=== PATIENT | female | born 1945 | race Caucasian/White ===

== ENCOUNTER → 2017-11-27 13:05 | Outpatient (CLI) | payer MEDICARE, OTHER, SELFPAY | PROVIDERS: Family Provider Family Medicine Geriatric Medicine; PCP Family Medicine Geriatric Medicine; Visit Provider Physician Assistant Surgical | DX: M54.9 Dorsalgia, unspecified (principal) | CPT/HCPCS: 87086; 87088; 87186 ==

== ENCOUNTER → 2017-11-28 10:23 | Outpatient (CLI) | payer MEDICARE, OTHER, SELFPAY ==
[2017-11-28 13:14] LABS: Absolute Lymphocyte Count 1.77 X10^3/ul (0.83-4.51); Absolute Neutrophil Count 3.7 X10^3/uL (2.0-7.7); Basophil# 0.03 X10^3/uL; Basophil% 0.5 % (0-1); Eosinophil# 0.18 X10^3/uL; Eosinophils% 2.9 % (0-5); Hematocrit 40.5 % (37-47); Hemoglobin 13.2 g/dl (12.0-15.0); Lymphocyte # 1.77 X10^3/ul (4.0); Lymphocyte % 28.3 % (19-41); Mean Corp Hgb Conc 32.6 g/gl (32-36); Mean Corpuscular Hgb 31.1 pg (27.0-32.0); Mean Corpuscular Volume 95.3 fL (81-99); Mean Platelet Vol. 10.6 fl (6.2-12.0); Monocyte# 0.61 X10^3/uL; Monocyte% 9.7 % (0-10); Neutrophil # 3.66 X10^3/uL (2.7-7.7); Neutrophil % 58.4 % (47-70); POSITIVE COUNT NO; POSITIVE DIFFERENTIAL NO; POSITIVE MORPHOLOGY NO; Platelet Count 240 K/mm3 (150-450); RBC Distribution Width CV 14.6 % (11.6-14.6); RBC Distribution Width SD 48.6 fl (35.1-43.9); Red Blood Count 4.25 M/mm3 (4.2-5.4); White Blood Count 6.3 K/mm3 (4.4-11.0)
[2017-11-28 13:38] LABS: ALB/GLOB Ratio 0.9 RATIO (0.9-2.4); AST(SGOT) 32 U/L (15-37); Alanine Aminotransfer ALT/SGPT 31 U/L (13-56); Albumin, Serum 3.4 g/dL (3.2-5.0); Alkaline Phosphatase 90 U/L (45-117); Anion Gap 7 (5-15); BUN 25 mg/dL (7-18); BUN/Creat Ratio 41.5 RATIO (10-20); Calcium,Total 9.3 mg/dL (8.5-10.1); Chloride 100 mmol/L (98-107); EST Glomerular Filtration Rate 104 mL/min (>60); Est Glom Filt Rate - Afr Amer 125 mL/min (>60); Globulin 3.6 g/dL (2.2-4.2); Glucose 84 mg/dL (74-106); Potassium 4.6 mmol/L (3.5-5.1); Sodium Level 137 mmol/L (136-145); Thyroid Stim Hormone (TSH) 2.44 uIU/mL (0.358-3.74)
[2017-11-29 09:27] LABS: Hep C Antibodies <0.1 s/co ratio (0.0-0.9)
[2017-11-29 10:39] LABS: Vitamin D,25 Hydroxy 50.4 ng/mL (29.95-100.01)
== END ==
PROVIDERS: Family Provider Family Medicine Geriatric Medicine; PCP Family Medicine Geriatric Medicine; Visit Provider Family Medicine Geriatric Medicine
DX: E11.9 Type 2 diabetes mellitus without complications (principal); E55.9 Vitamin D deficiency, unspecified; I10 Essential (primary) hypertension; Z13.89 Encounter for screening for other disorder
CPT/HCPCS: 36415; 80053; 82306; 84443; 85025; 86803

== ENCOUNTER 2017-12-12 12:01 | Emergency (ER) | payer MEDICARE, OTHER, SELFPAY ==
[2017-12-12 12:02] VITALS: BP 144/52; PULSE 67; RESP 16; TEMP 37.5; O2SAT 93; BMI 35.1
[2017-12-12] MEDS: Orphenadrine 60 MG/2 ML Ampul IM (12:26)
--- NOTE | 2017-12-12 12:40 | RAD_ITS ---
STUDY: X-RAY - LUMBAR SPINE REASON FOR EXAM: Female, 72 years old. Chronic back pain. TECHNIQUE: 3 view(s) of the lumbar spine were obtained. COMPARISON: Comparison is made with prior study dated November 14, 2015. FINDINGS: Normal lumbar lordosis. There is a mild dextroscoliosis of the lumbar spine. There is a normal alignment of the vertebrae. There is multilevel endplate spondylosis of the lumbar vertebrae. There is multi-level degenerative disc disease with multi-level disc space narrowing. Facet joint osteoarthritis. The patient is status post multilevel laminectomy. Status post right hip replacement. There is atherosclerotic calcification of the abdominal aorta without a demonstrated aneurysm. RAD/Lumbar Spine 2 or 3 Views IMPRESSION: Degenerative changes of the spine, as detailed above. There has been no change as compared to prior study. Electronically Signed: Colt Palafox MD at 13:05 EDT Tel [phone], Service support ,
--- NOTE | 2017-12-12 13:08 | ED.VISSUMM ---
- ER Visit Summary Date of Service: 12/12/17 Chief Complaint: Back pain History of Present Illness: The patient is a 72 F who presents with worsening of her chronic back pain. It has been worse for the past 2 days. She states that she was twisted in bed and was holding up a light for her and when she turned back she started having pain. Movement makes it worse and laying on her right side makes it better. Denies any numbness or tingling. No bowel or bladder incontinence. She takes gabapentin, methadone and Percocet for her back pain at home. She normally ambulates in a wheelchair and has limited walking mobility at home. Physical Examination: Vital signs are reviewed. HEENT exam unremarkable. Heart is regular rate and rhythm. Lungs are clear to auscultation. Abdomen is soft and nontender. Back exam reveals diffuse lumbar spinal tenderness palpation. Her neurologic exam is normal. Test Results: Lumbar spine x-ray reveals degenerative changes Emergency Department Course and Treatment: Patient was given Norflex and feels better. I feel this is likely muscular. This is an exacerbation of her chronic low back pain. I will treat her with a short course of Zanaflex at home. She will follow-up with her PCP Treatment Plan: [] Disposition: Discharge Impression: Acute on chronic low back pain This note was generated with [employer] ([employer]) dictation software. It may contain incorrect words, spelling, and punctuation that were not noted in review of the chart prior to signing ED Disposition - Plan for ED Patient: Chief Complaint: Back Referrals: Nahun Casillas Chi, MD [Primary Care Provider] -
--- NOTE | 2017-12-12 13:33 | ED.DEP ---
ED Disposition - Plan for ED Patient: Disposition: Home or Assisted Living Chief Complaint: Back Instructions: ED Neck Back Pain General Prescriptions: Tizanidine HCl [Zanaflex] 2 mg PO TID #15 cap Referrals: Nahun Casillas Chi, MD [Primary Care Provider] -
[2017-12-12 13:58] VITALS: BP 108/41; PULSE 59; RESP 18; O2SAT 96
--- NOTE | 2017-12-12 13:59 | ED.RN ---
Pt having trouble ambulating for discharge, daughter states that is normal for her. This RN expresses concern for getting patient back into the house and daughter states they can handle it and can call for help if needed. Pt helped into a wheelchair and taken to daughters car, pt then helped into the car.
== END 2017-12-12 14:08 | disposition home or self-care (01) ==
PROVIDERS: Emergency Provider Emergency Medicine; Family Provider Family Medicine Geriatric Medicine; PCP Family Medicine Geriatric Medicine
DX: M54.5 Low back pain (principal); G89.29 Other chronic pain; I10 Essential (primary) hypertension; E78.00 Pure hypercholesterolemia, unspecified; J44.9 Chronic obstructive pulmonary disease, unspecified; Z79.891 Long term (current) use of opiate analgesic; Z79.899 Other long term (current) drug therapy
CPT/HCPCS: 72100; 96372; 99285

== ENCOUNTER → 2017-12-16 12:03 | Outpatient (CLI) | payer MEDICARE, OTHER, SELFPAY | PROVIDERS: Family Provider Family Medicine Geriatric Medicine; PCP Family Medicine Geriatric Medicine; Visit Provider Anesthesiology Pain Medicine | DX: F11.20 Opioid dependence, uncomplicated (principal) ==

== ENCOUNTER → 2018-03-31 05:00 | Outpatient (REF) | payer MEDICARE, OTHER, SELFPAY ==
[2018-03-31 09:15] LABS: Vitamin B12 366 pg/mL (211-911)
== END ==
LOC: OLS.AVED 05:00
PROVIDERS: Visit Provider Family Medicine
DX: K14.6 Glossodynia (principal)
CPT/HCPCS: 36415; 82607

== ENCOUNTER → 2018-05-12 04:30 | Outpatient (REF) | payer MEDICARE, OTHER, SELFPAY ==
[2018-05-12 08:59] LABS: Absolute Lymphocyte Count 3.14 X10^3/ul (0.83-4.51); Absolute Neutrophil Count 3.2 X10^3/uL (2.0-7.7); Basophil# 0.03 X10^3/uL; Basophil% 0.4 % (0-1); Eosinophil# 0.27 X10^3/uL; Eosinophils% 3.7 % (0-5); Hematocrit 41.5 % (37-47); Hemoglobin 13.1 g/dl (12.0-15.0); Lymphocyte # 3.14 X10^3/ul (4.0); Lymphocyte % 42.5 % (19-41); Mean Corp Hgb Conc 31.6 g/gl (32-36); Mean Corpuscular Hgb 30.7 pg (27.0-32.0); Mean Corpuscular Volume 97.2 fL (81-99); Mean Platelet Vol. 10.6 fl (6.2-12.0); Monocyte# 0.74 X10^3/uL; Neutrophil % 43.3 % (47-70); Platelet Count 260 K/mm3 (150-450); RBC Distribution Width CV 13.2 % (11.6-14.6); RBC Distribution Width SD 46.1 fl (35.1-43.9); Red Blood Count 4.27 M/mm3 (4.2-5.4); White Blood Count 7.4 K/mm3 (4.4-11.0)
[2018-05-12 09:06] LABS: POSITIVE COUNT NO; POSITIVE DIFFERENTIAL NO; POSITIVE MORPHOLOGY NO
[2018-05-12 09:11] LABS: AST(SGOT) 31 U/L (15-37); Alanine Aminotransfer ALT/SGPT 25 U/L (13-56); Albumin, Serum 3.2 g/dL (3.2-5.0); Alkaline Phosphatase 94 U/L (45-117); Anion Gap 10 (5-15); BUN 22 mg/dL (7-18); BUN/Creat Ratio 37.4 RATIO (10-20); Calcium,Total 9.2 mg/dL (8.5-10.1); Chloride 105 mmol/L (98-107); Cholesterol 144 mg/dL (200); Creatinine, Serum 0.59 mg/dL (0.55-1.02); EST Glomerular Filtration Rate 107 mL/min (>60); Est Glom Filt Rate - Afr Amer 129 mL/min (>60); Globulin 3.2 g/dL (2.2-4.2); Glucose 77 mg/dL (74-106); High Density Lipoprotein 38 mg/dL; Protein, Total 6.4 g/dL (6.4-8.2); Sodium Level 144 mmol/L (136-145); Triglycerides 170 mg/dL; Very Low Density Lipoprotein 34 mg/dL (5-40)
[2018-05-12 09:20] LABS: Vitamin D,25 Hydroxy 22.6 ng/mL (29.95-100.01)
== END ==
LOC: OLS.AVED 04:30
PROVIDERS: Visit Provider Family Medicine
DX: R53.83 Other fatigue (principal); E78.5 Hyperlipidemia, unspecified; E55.9 Vitamin D deficiency, unspecified
CPT/HCPCS: 36415; 80053; 80061; 82306; 85025

== ENCOUNTER → 2018-06-28 07:00 | Outpatient (REF) | payer MEDICARE, OTHER, SELFPAY ==
[2018-06-28 08:09] LABS: Absolute Lymphocyte Count 2.65 X10^3/ul (0.83-4.51); Absolute Neutrophil Count 4.7 X10^3/uL (2.0-7.7); Basophil# 0.03 X10^3/uL; Basophil% 0.4 % (0-1); Eosinophil# 0.23 X10^3/uL; Eosinophils% 2.7 % (0-5); Hematocrit 40.3 % (37-47); Hemoglobin 13.3 g/dl (12.0-15.0); Lymphocyte # 2.65 X10^3/ul (4.0); Lymphocyte % 31.6 % (19-41); Mean Corpuscular Hgb 31.1 pg (27.0-32.0); Mean Corpuscular Volume 94.4 fL (81-99); Mean Platelet Vol. 10.3 fl (6.2-12.0); Monocyte# 0.75 X10^3/uL; Monocyte% 8.9 % (0-10); Neutrophil # 4.72 X10^3/uL (2.7-7.7); Neutrophil % 56.3 % (47-70); Platelet Count 258 K/mm3 (150-450); RBC Distribution Width CV 12.5 % (11.6-14.6); RBC Distribution Width SD 42.2 fl (35.1-43.9); Red Blood Count 4.27 M/mm3 (4.2-5.4); White Blood Count 8.4 K/mm3 (4.4-11.0)
[2018-06-28 08:11] LABS: POSITIVE COUNT NO; POSITIVE DIFFERENTIAL NO; POSITIVE MORPHOLOGY NO
== END ==
LOC: OLS.AVEC 07:00
PROVIDERS: Visit Provider Family Medicine
DX: N39.0 Urinary tract infection, site not specified (principal); E78.5 Hyperlipidemia, unspecified
CPT/HCPCS: 36415; 85025; 87077; 87086; 87088; 87186

== ENCOUNTER → 2018-08-02 20:52 | Outpatient (CLI) | payer MEDICARE, OTHER, MEDICAID, SELFPAY ==
[2018-08-02 21:57] LABS: Color, Urine Yellow (Yellow); Glucose, Dipstick Normal (Normal); Ketone-Dipstick Negative (Negative); Leukocyte Esterase-Dipstick 500 /ul (Negative); Nitrite-Dipstick Positive (Negative); Occult Blood-Urine 250 /ul (Negative); Protein-Dipstick 100 mg/dl (Negative); Specific Gravity, Urine 1.015 (1.002-1.030); Urine Bilirubin Dipstick Negative (Negative); Urine Clarity Cloudy (Clear); Urine Urobilinogen Normal (Normal)
--- OUTSIDE RECORDS SUMMARY | 2018-09-26 21:51 | XMS RPT_ITS ---
:1945 Author Organization OHIP Support Name Relationship Address Phone R Unavailable Unavailable Unavailable Tiffanie, Naina Unavailable [address] + [place] [address] R Unavailable Unavailable Unavailable Tiffanie, Naina Unavailable [address] + [place] [address] R Unavailable Unavailable Unavailable Tiffanie, Naina Unavailable [address] + [place] [address] R Unavailable Unavailable Unavailable Tiffanie, Naina Unavailable [address] + [place] [address] R Unavailable Unavailable Unavailable Tiffanie, Naina Unavailable [address] + [place] [address] R Unavailable Unavailable Unavailable TIFFANIE, NAINA Unavailable [address] + [place] [address] R Unavailable Unavailable Unavailable R Unavailable Unavailable Unavailable Tiffanie, Naina Unavailable [address] + [place] [address] Karol Hawley Unavailable [address] + [address] [place] [address] R Unavailable Unavailable Unavailable Tiffanie, Naina Unavailable [address] [phone] [place] [address] Karol Hawley Unavailable [address] + [address] [place] [address] R Unavailable Unavailable Unavailable Tiffanie, Naina Unavailable [address] [phone] [place] [address] KAROL HAWLEY Unavailable [address] + [address] [place] [address] R Unavailable Unavailable Unavailable TIFFANIE, NAINA Unavailable [address] [phone] [place] [address] HAWLEYKAROL Unavailable [address] + [address] [place] [address] R Unavailable Unavailable Unavailable TIFFANIE, NAINA Unavailable [address] [phone] [place] [address] MARLEENKAROL Unavailable [address] + [address] [place] [address] R Unavailable Unavailable Unavailable TIFFANIE, NAINA Unavailable [address] [phone] [place] [address] HAWLEYKAROL Unavailable [address] + [address] [place] [address] R Unavailable Unavailable Unavailable TIFFANIE, NAINA Unavailable [address] [phone] [place] [address] KAROL HAWLEY Unavailable [address] + [address] [place] [address] R Unavailable Unavailable Unavailable TIFFANIE, NAINA Unavailable [address] [phone] [place] [address] KAROL HAWLEY Unavailable [address] + [address] [place] [address] R Unavailable Unavailable Unavailable TIFFANIE, NAINA Unavailable [address] [phone] [place] [address] MARLEEN KAROL Unavailable [address] + [address] [place] [address] R Unavailable Unavailable Unavailable TIFFANIE, NAINA Unavailable [address] [phone] [place] [address] MARLEEN KAROL Unavailable [address] + [address] [place] [address] R Unavailable Unavailable Unavailable TIFFANIE, NAINA Unavailable [address] [phone] [place] [address] Care Team Providers Name Role Phone Nahid Sotelo Attending Unavailable Vinny, Nahun Chi Referring Unavailable Tex Aguillon Attending Unavailable Vinny, Nahun Chi Referring Unavailable Vinny, Nahun Chi Primary Care Unavailable Tex Aguillon Attending Unavailable Tex Aguillon Referring Unavailable Vinny, Nahun Chi Primary Care Unavailable Vinny, Nahun Chi Attending Unavailable Vinny, Nahun Chi Primary Care Unavailable Vinny, Nahun Chi Primary Care Unavailable Amos Montanez Attending Unavailable Basali, Desmond Attending Unavailable Basali, Ayman Referring Unavailable Vinny, Nahun Chi Primary Care Unavailable Yanely Solomon Attending Unavailable Siddiqi, Camille Attending Unavailable Roof, Harpreet Lemus Attending Unavailable Vinny, Nahun Chi Referring Unavailable Vinny, Nahun Chi Primary Care Unavailable Berry, Wolf Attending Unavailable Berry, Wolf Attending Unavailable Berry, Wolf Attending Unavailable Tickton, Marjorie Attending Unavailable Tickton, Marjorie Referring Unavailable Berry, Wolf Primary Care Unavailable Berry, Wolf Attending Unavailable Berry, Wolf Attending Unavailable Berry, Wolf Attending Unavailable Berry, Wolf Primary Care Unavailable Berry, Wolf Attending Unavailable PROBLEMS PROBLEMS DATE TYPE CONDITION / CODE ATTENDING STATUS SOURCE 08/04/2018 Unknown Z00.0 - Encounter Berry[facility] green Active [place] for general adult Community medical examination Hospital / Z00.0(ICD-10) Repository 07/25/2018 Unknown E78.5 - BerryWolf green Active [place] Hyperlipidemia, Community unspecified / Hospital E78.5(ICD-10) Repository 07/25/2018 Unknown N39.0 - Urinary BerryWolf green Active [place] tract infection, Community site not specified Hospital / N39.0(ICD-10) Repository 06/30/2018 Unknown R53.83 - Other [facility] green Active [place] fatigue / Community R53.83(ICD-10) Hospital Repository 06/30/2018 Unknown E55.9 - Vitamin D BerryWolf green Active [place] deficiency, Community unspecified / Hospital E55.9(ICD-10) Repository 05/15/2018 Unknown 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, Hospital including tongue / Repository K13.29(ICD-10) 01/06/2018 Unknown F11.20 - Opioid Basali, Ayman Active [place] dependence, Community uncomplicated / Hospital F11.20(ICD-10) Repository PROCEDURES PROCEDURES No Procedure Records FoundRESULTS RESULTS CBC W/DIFF, AUTOMATED Collected: 08/11/2018 Status: F Source: [place] 4:40 AM [facility] REPOSITORY Order Comment: 140 TYPE CODE TESTS RESULT OUT OF RANGE REFERENCE UNITS LAB L100.1000 4.4-11.0 K/mm3 Normal WBC 6.9 LAB L100.1200 4.2-5.4 M/mm3 Low RBC 3.78 LAB L100.1300 12.0-15.0 g/dl Low HGB 11.4 LAB L100.1400 37-47 % Low HCT 35.9 LAB L100.1500 81-99 fL Normal MCV 95.0 LAB L100.1600 27.0-32.0 pg Normal MCH 30.2 LAB L100.1700 32-36 g/gl Low MCHC 31.8 LAB L100.1810 11.6-14.6 % Normal RDW CV 13.1 LAB L100.1820 35.1-43.9 fl High RDW SD 44.9 LAB L100.1900 150-450 K/mm3 Normal PLT 291 LAB L100.2000 6.2-12.0 fl Normal MPV 9.9 LAB L100.2100 47-70 % Normal NEUT% 47.8 LAB L100.2200 19-41 % Normal LY% 36.3 LAB L100.2300 0-10 % Normal MONO% 8.8 LAB L100.2400 0-5 % High EO% 6.9 LAB L100.2500 0-1 % Normal BASO% 0.1 LAB L100.2550 0.0-0.9 % Normal IM GRAN % 0.100 Result Comment: IG% - Immature Granulocytes (promyelocytes, myelocytes and metamyelocytes) > 1% indicates that a LEFT SHIFT is Present. LAB L100.2620 2.0-7.7 X10 3/uL Normal Absolute Neut 3.3 LAB L100.2720 0.83-4.51 X10 3/ul Normal Absolute Lymph 2.52 Performed By: #### L100.0100 #### [facility] [address] [place], [place], [address] COMPREHENSIVE METABOLIC Collected: 08/11/2018 Status: F Source: [facility] 4:40 AM REPOSITORY Order Comment: 140 FASTING SINCE 12AM TYPE CODE TESTS RESULT OUT OF RANGE REFERENCE UNITS LAB L501.0100 74-106 mg/dL Normal GLU 87 Result Comment: Please note revised GLUCOSE reference range effective 2017. LAB L501.1000 7-18 mg/dL Normal BUN 17 LAB L501.1100 0.55-1.02 mg/dL Normal CREAT,SERUM 0.55 Result Comment: The validity of the calculated GFR AND GFRAA in patients over 70 years has not been determined. Clinical correlation is essential. LAB L501.1110 >60 mL/min Normal EST GFR 116 Result Comment: Non- GFR Calc LAB L501.1115 >60 mL/min Normal EST GFR - AA 140 Result Comment: GFR Calc LAB L501.1300 10-20 RATIO High BUN/CRE 31.1 LAB L501.1500 6.4-8.2 g/dL Low T PROT 5.8 LAB L501.1800 3.2-5.0 g/dL Low ALB 2.5 LAB L501.1950 2.2-4.2 g/dL Normal GLOB 3.3 LAB L501.2000 0.9-2.4 RATIO Low A/G 0.8 LAB L501.2200 8.5-10.1 mg/dL CA Normal 8.6 LAB L501.4100 15-37 U/L Normal AST 28 LAB L501.4305 45-117 U/L Normal ALK P 81 LAB L501.4405 13-56 U/L Normal ALT 21 LAB L501.4600 0.20-1.00 mg/dL T Normal BILI 0.20 LAB L501.5300 136-145 mmol/L NA Normal 141 LAB L501.5600 3.5-5.1 mmol/L K Normal 4.0 LAB L501.5900 98-107 mmol/L CL Normal 107 LAB L501.6100 21.0-32.0 mmol/L Normal CO2 27.0 LAB L501.6200 5-15 Normal GAP 7 Performed By: #### L500.4050, L500.4100 #### [facility] [address] [place], [address] LIPID PROFILE Collected: 08/11/2018 Status: F Source: [place] 4:40 AM REPOSITORY Order Comment: 140 FASTING SINCE 12AM TYPE CODE TESTS RESULT OUT OF RANGE REFERENCE UNITS LAB L501.4900 200 mg/dL Normal CHOL 115 Result Comment: <200 mg/dL Desirable 200-240 mg/dL Borderline >240 mg/dL High Risk LAB L501.5000 mg/dL Normal TRIG 160 Result Comment: The drugs N-Acetylcysteine and Metamizole may falsely depress this assay. Serum Triglycerides Reference Interval Normal <150 mg/dL Borderline high 150 - 199 mg/dL High 200 - 499 mg/dL Very High > or = 500 mg/dL LAB L501.6400 mg/dL Low HDL 31 Result Comment: The drugs N-Acetylcysteine and Metamizole may falsely depress this assay. Reference Range HDL <40 mg/dL Low HDL Cholesterol HDL >or= 60 mg/dL High HDL Cholesterol LAB L501.6500 0-130 mg/dL Normal LDL 52 LAB L501.6600 5-40 mg/dL Normal VLDL 32 Performed By: #### L500.4050, L500.4100 #### [facility] [address] [place], [address] VITAMIN D,25 HYDROXY Collected: 08/11/2018 Status: F Source: [place] 4:40 AM REPOSITORY Order Comment: 140 TYPE CODE TESTS RESULT OUT OF RANGE REFERENCE UNITS LAB L506.1000 29.95-100.01 ng/mL Normal Vitamin D 40.3 25-OH Result Comment: Vitamin D 25(OH) Status Range Deficiency <20 ng/mL (50nmol/L) Insuffciency 20 - 30 ng/mL (50 - 75 nmol/L) Sufficiency 30 - 100 ng/mL (75 - 250 nmol/L) Toxicity >100 ng/mL (>250 nmol/L) Performed By: #### L506.1000 #### [facility] [address] [place], [place], [address] URINALYSIS, ROUTINE Collected: 08/02/2018 Status: F Source: [place] ([place]) 4:00 PM REPOSITORY Order Comment: How was Urine Obtained? CLEAN CATCH TYPE CODE TESTS RESULT OUT OF RANGE REFERENCE UNITS LAB L400.3000 Yellow COLOR Normal Yellow LAB L400.3050 Clear Normal CLARITY Cloudy LAB L400.3200 Normal mg/dl Normal GLUCOSE, UR Normal LAB L400.3300 Negative mg/dL Normal BILIRUBIN URINE Negative LAB L400.3400 Negative mg/dl Normal KETONE UR Negative LAB L400.3465 1.002-1.030 Normal SP.GR. DIPSTX 1.015 LAB L400.3550 5.0 - 8.0 pH UR Normal 9.0 LAB L400.3600 Negative mg/dl High PROT DIPSTX 100 LAB L400.3700 Normal mg/dl Normal UROBILI Normal LAB L400.3750 Negative High NITRITE UR Positive LAB L400.3780 Negative /ul High OCCULT BLOOD-UR 250 LAB L400.3800 Negative /ul High LEUK ESTERASE 500 Performed By: #### L400.2010 #### [facility] [address] [facility] [place], [address] Observed: 08/02/2018 Status: F Source: [place] CULTURE, URINE 4:00 PM REPOSITORY Urine Culture ORGANISM 1: Proteus mirabilis Mckenna Count >100,000 Proteus mirabilis: REACTION Amoxacillin/Clavulanic Acid $ <=2 S Ampicillin $ <=2 S Ampicillin/Sulbactam $ <=2 S Cefazolin $ <=4 S Cefepime $ <=1 S Ceftriaxone $ <=1 S Ciprofloxacin $ >=4 R Ertapenim $$$ <=0.5 S Gentamicin $ <=1 S Levofloxacin $ 4 I Nitrofurantoin $ 128 R Piperacillin/Tazobactam $$ <=4 S Tobramycin $ <=1 S Trimethoprim/Sulfametho $ >=320 R (NF) indicates non-formulary drug at [facility]. Approval by Infectious Disease Specialist required before non-formulary drugs may be ordered and/or dispensed. Performed By: #### M100.0650 #### [facility] [address] [facility] [place], [address] CBC W/DIFF, AUTOMATED Collected: 06/28/2018 Status: F Source: [place] 7:00 AM REPOSITORY TYPE CODE TESTS RESULT OUT OF RANGE REFERENCE UNITS LAB L100.1000 4.4-11.0 K/mm3 Normal WBC 8.4 LAB L100.1200 4.2-5.4 M/mm3 Normal RBC 4.27 LAB L100.1300 12.0-15.0 g/dl Normal HGB 13.3 LAB L100.1400 37-47 % Normal HCT 40.3 LAB L100.1500 81-99 fL Normal MCV 94.4 LAB L100.1600 27.0-32.0 pg Normal MCH 31.1 LAB L100.1700 32-36 g/gl Normal MCHC 33.0 LAB L100.1810 11.6-14.6 % Normal RDW CV 12.5 LAB L100.1820 35.1-43.9 fl Normal RDW SD 42.2 LAB L100.1900 150-450 K/mm3 Normal PLT 258 LAB L100.2000 6.2-12.0 fl Normal MPV 10.3 LAB L100.2100 47-70 % Normal NEUT% 56.3 LAB L100.2200 19-41 % Normal LY% 31.6 LAB L100.2300 0-10 % Normal MONO% 8.9 LAB L100.2400 0-5 % Normal EO% 2.7 LAB L100.2500 0-1 % Normal BASO% 0.4 LAB L100.2550 0.0-0.9 % Normal IM GRAN % 0.100 Result Comment: IG% - Immature Granulocytes (promyelocytes, myelocytes and metamyelocytes) > 1% indicates that a LEFT SHIFT is Present. LAB L100.2620 2.0-7.7 X10 3/uL Normal Absolute Neut 4.7 LAB L100.2720 0.83-4.51 X10 3/ul Normal Absolute Lymph 2.65 Performed By: #### L100.0100 #### [facility] [address] [place], [address] Observed: 06/28/2018 Status: F Source: [place] CULTURE, URINE 7:00 AM REPOSITORY Urine Culture ORGANISM 1: Presumptive E. coli Mckenna Count >100,000 ORGANISM 2: Enterococcus faecalis Mckenna Count >100,000 Presumptive E. coli: REACTION Amoxacillin/Clavulanic Acid $ 16 I Ampicillin $ >=32 R Ampicillin/Sulbactam $ >=32 R Cefazolin $ <=4 S Cefepime $ <=1 S Ceftriaxone $ <=1 S Ciprofloxacin $ <=0.25 S ESBL - Ertapenim $$$ <=0.5 S Gentamicin $ <=1 S Imipenem *NF <=0.25 S Levofloxacin $ <=0.12 S Nitrofurantoin $ <=16 S Piperacillin/Tazobactam $$ <=4 S Tobramycin $ <=1 S Trimethoprim/Sulfametho $ <=20 S (NF) indicates non-formulary drug at [facility]. Approval by Infectious Disease Specialist required before non-formulary drugs may be ordered and/or dispensed. Enterococcus faecalis: REACTION Ampicillin $ <=2 S Benzylpenicillin NF 1 S Ciprofloxacin $ <=0.5 S Gentamicin SYN-S S Levofloxacin $ 1 S Linezolid $$$$ 2 S Nitrofurantoin $ <=16 S Streptomycin $ SYN-S S Tetracycline NF >=16 R Vancomycin $ 1 S (NF) indicates non-formulary drug at [facility]. Approval by Infectious Disease Specialist required before non-formulary drugs may be ordered and/or dispensed. * CLSI guidelines does not recommend testing of cephalosporins. This interpretation is deduced from Beta-lactam/penicillin results. Performed By: #### M100.0650 #### [facility] [address] [place], [address] CBC W/DIFF, AUTOMATED Collected: 05/12/2018 Status: F Source: [place] 5:25 AM REPOSITORY Order Comment: ROOM 140 TYPE CODE TESTS RESULT OUT OF RANGE REFERENCE UNITS LAB L100.1000 4.4-11.0 K/mm3 Normal WBC 7.4 LAB L100.1200 4.2-5.4 M/mm3 Normal RBC 4.27 LAB L100.1300 12.0-15.0 g/dl Normal HGB 13.1 LAB L100.1400 37-47 % Normal HCT 41.5 LAB L100.1500 81-99 fL Normal MCV 97.2 LAB L100.1600 27.0-32.0 pg Normal MCH 30.7 LAB L100.1700 32-36 g/gl Low MCHC 31.6 LAB L100.1810 11.6-14.6 % Normal RDW CV 13.2 LAB L100.1820 35.1-43.9 fl High RDW SD 46.1 LAB L100.1900 150-450 K/mm3 Normal PLT 260 LAB L100.2000 6.2-12.0 fl Normal MPV 10.6 LAB L100.2100 47-70 % Low NEUT% 43.3 LAB L100.2200 19-41 % High LY% 42.5 LAB L100.2300 0-10 % Normal MONO% 10.0 LAB L100.2400 0-5 % Normal EO% 3.7 LAB L100.2500 0-1 % Normal BASO% 0.4 LAB L100.2550 0.0-0.9 % Normal IM GRAN % 0.100 Result Comment: IG% - Immature Granulocytes (promyelocytes, myelocytes and metamyelocytes) > 1% indicates that a LEFT SHIFT is Present. LAB L100.2620 2.0-7.7 X10 3/uL Normal Absolute Neut 3.2 LAB L100.2720 0.83-4.51 X10 3/ul Normal Absolute Lymph 3.14 Performed By: #### L100.0100 #### [facility] [address] [place], [place], [address] COMPREHENSIVE METABOLIC Collected: 05/12/2018 Status: F Source: [facility] 5:25 AM REPOSITORY Order Comment: ROOM 140 TYPE CODE TESTS RESULT OUT OF RANGE REFERENCE UNITS LAB L501.0100 74-106 mg/dL Normal GLU 77 Result Comment: Please note revised GLUCOSE reference range effective 2017. LAB L501.1000 7-18 mg/dL High BUN 22 LAB L501.1100 0.55-1.02 mg/dL Normal CREAT,SERUM 0.59 Result Comment: The validity of the calculated GFR AND GFRAA in patients over 70 years has not been determined. Clinical correlation is essential. LAB L501.1110 >60 mL/min Normal EST GFR 107 Result Comment: Non- GFR Calc LAB L501.1115 >60 mL/min Normal EST GFR - AA 129 Result Comment: GFR Calc LAB L501.1300 10-20 RATIO High BUN/CRE 37.4 LAB L501.1500 6.4-8.2 g/dL T Normal PROT 6.4 LAB L501.1800 3.2-5.0 g/dL Normal ALB 3.2 LAB L501.1950 2.2-4.2 g/dL Normal GLOB 3.2 LAB L501.2000 0.9-2.4 RATIO Normal A/G 1.0 LAB L501.2200 8.5-10.1 mg/dL CA Normal 9.2 LAB L501.4100 15-37 U/L Normal AST 31 LAB L501.4305 45-117 U/L Normal ALK P 94 LAB L501.4405 13-56 U/L Normal ALT 25 LAB L501.4600 0.20-1.00 mg/dL T Normal BILI 0.30 LAB L501.5300 136-145 mmol/L NA Normal 144 LAB L501.5600 3.5-5.1 mmol/L K Normal 4.0 LAB L501.5900 98-107 mmol/L CL Normal 105 LAB L501.6100 21.0-32.0 mmol/L Normal CO2 29.0 LAB L501.6200 5-15 Normal GAP 10 Performed By: #### L500.4050, L500.4100 #### [facility] [address] [facility] [place], [place], [id number] LIPID PROFILE Collected: 05/12/2018 Status: F Source: [place] 5:25 AM REPOSITORY Order Comment: ROOM 140 TYPE CODE TESTS RESULT OUT OF RANGE REFERENCE UNITS LAB L501.4900 200 mg/dL Normal CHOL 144 Result Comment: <200 mg/dL Desirable 200-240 mg/dL Borderline >240 mg/dL High Risk LAB L501.5000 mg/dL Normal TRIG 170 Result Comment: The drugs N-Acetylcysteine and Metamizole may falsely depress this assay. Serum Triglycerides Reference Interval Normal <150 mg/dL Borderline high 150 - 199 mg/dL High 200 - 499 mg/dL Very High > or = 500 mg/dL LAB L501.6400 mg/dL Low HDL 38 Result Comment: The drugs N-Acetylcysteine and Metamizole may falsely depress this assay. Reference Range HDL <40 mg/dL Low HDL Cholesterol HDL >or= 60 mg/dL High HDL Cholesterol LAB L501.6500 0-130 mg/dL Normal LDL 72 LAB L501.6600 5-40 mg/dL Normal VLDL 34 Performed By: #### L500.4050, L500.4100 #### [facility] [address] [place], [place], [id number] VITAMIN D,25 HYDROXY Collected: 05/12/2018 Status: F Source: [place] 5:25 AM REPOSITORY Order Comment: ROOM 140 TYPE CODE TESTS RESULT OUT OF REFERENCE UNITS RANGE LAB L506.1000 29.95-100.01 ng/mL Low Vitamin D 22.6 25-OH Result Comment: Vitamin D 25(OH) Status Range Deficiency <20 ng/mL (50nmol/L) Insuffciency 20 - 30 ng/mL (50 - 75 nmol/L) Sufficiency 30 - 100 ng/mL (75 - 250 nmol/L) Toxicity >100 ng/mL (>250 nmol/L) Performed By: #### L506.1000 #### [facility] [address] [place], [address] VITAMIN B12 Collected: 03/31/2018 Status: F Source: [place] 7:00 AM REPOSITORY TYPE CODE TESTS RESULT OUT OF RANGE REFERENCE UNITS LAB L503.0105 211-911 pg/mL Normal Vitamin B12 366 Performed By: #### L503.0105 #### [facility] [address] [place], [address] URINALYSIS, COMPLETE Collected: 01/27/2018 Status: F Source: [place] 3:17 AM REPOSITORY Order Comment: How was Urine Obtained? CLEAN CATCH TYPE CODE TESTS RESULT OUT OF RANGE REFERENCE UNITS LAB L400.3000 Yellow COLOR Normal Yellow LAB L400.3050 Clear Normal CLARITY Clear LAB L400.3200 Normal mg/dl Normal GLUCOSE, UR Normal LAB L400.3300 Negative mg/dL Normal BILIRUBIN URINE Negative LAB L400.3400 Negative mg/dl Normal KETONE UR Negative LAB L400.3465 1.002-1.030 Normal SP.GR. DIPSTX 1.015 LAB L400.3550 5.0 - 8.0 pH UR Normal 8.0 LAB L400.3600 Negative mg/dl PROT Normal DIPSTX Negative LAB L400.3700 Normal mg/dl Normal UROBILI Normal LAB L400.3750 Negative Normal NITRITE UR Negative LAB L400.3780 Negative /ul Normal OCCULT BLOOD-UR Negative LAB L400.3800 Negative /ul LEUK Normal ESTERASE Negative LAB L400.4050 0-5 /hpf WBC 0 Normal SEEN LAB L400.4100 0-5 /hpf 0 Normal RBC-UA SEEN LAB L400.4150 5-10 /hpf SQUAM Normal EPI 0-5 SEEN LAB L400.4300 None Seen /hpf 1+ Normal BACTERIA LAB L400.4350 <or=2+ /hpf 0 Normal MUCUS, URINE SEEN Performed By: #### L400.0001 #### [facility] [address] [place], [address] Observed: 01/27/2018 Status: F Source: [place] CULTURE, URINE 3:17 AM REPOSITORY Urine Culture ORGANISM 1: Mixed Gram Pos AND Gram Neg Org Mckenna Count 1000-10,000 MIX CULTURE Mixed contaminants. Submit a new specimen if indicated. Performed By: #### M100.0650 #### [facility] [address] [place], [address] CBC W/DIFF, AUTOMATED Collected: 01/26/2018 Status: F Source: [place] 10:05 PM REPOSITORY TYPE CODE TESTS RESULT OUT OF RANGE REFERENCE UNITS LAB L100.1000 4.4-11.0 K/mm3 Normal WBC 7.1 LAB L100.1200 4.2-5.4 M/mm3 Low RBC 4.04 LAB L100.1300 12.0-15.0 g/dl Normal HGB 12.7 LAB L100.1400 37-47 % Normal HCT 39.6 LAB L100.1500 81-99 fL Normal MCV 98.0 LAB L100.1600 27.0-32.0 pg Normal MCH 31.4 LAB L100.1700 32-36 g/gl Normal MCHC 32.1 LAB L100.1810 11.6-14.6 % Normal RDW CV 14.0 LAB L100.1820 35.1-43.9 fl High RDW SD 49.4 LAB L100.1900 150-450 K/mm3 Normal PLT 275 LAB L100.2000 6.2-12.0 fl Normal MPV 10.6 LAB L100.2100 47-70 % Normal NEUT% 54.1 LAB L100.2200 19-41 % Normal LY% 32.6 LAB L100.2300 0-10 % Normal MONO% 8.6 LAB L100.2400 0-5 % Normal EO% 4.0 LAB L100.2500 0-1 % Normal BASO% 0.4 LAB L100.2550 0.0-0.9 % Normal IM GRAN % 0.300 Result Comment: IG% - Immature Granulocytes (promyelocytes, myelocytes and metamyelocytes) > 1% indicates that a LEFT SHIFT is Present. LAB L100.2620 2.0-7.7 X10 3/uL Normal Absolute Neut 3.8 LAB L100.2720 0.83-4.51 X10 3/ul Normal Absolute Lymph 2.30 Performed By: #### L100.0100 #### [facility] [address], [address] COMPREHENSIVE METABOLIC Collected: 01/26/2018 Status: F Source: [facility] 10:05 PM REPOSITORY TYPE CODE TESTS RESULT OUT OF RANGE REFERENCE UNITS LAB L501.0100 74-106 mg/dL High GLU 116 Result Comment: Fasting Glucose result from 100 to 125 mg/dL suggests IMPAIRED HOMEOSTASIS per A.D.A. criteria. Please note revised GLUCOSE reference range effective 2017. LAB L501.1000 7-18 mg/dL High BUN 20 LAB L501.1100 0.55-1.02 mg/dL Normal CREAT,SERUM 0.72 Result Comment: The validity of the calculated GFR AND GFRAA in patients over 70 years has not been determined. Clinical correlation is essential. LAB L501.1110 >60 mL/min Normal EST GFR 85 Result Comment: Non- GFR Calc LAB L501.1115 >60 mL/min Normal EST GFR - AA 103 Result Comment: GFR Calc LAB L501.1300 10-20 RATIO High BUN/CRE 27.9 LAB L501.1500 6.4-8.2 g/dL T Normal PROT 6.8 LAB L501.1800 3.2-5.0 g/dL Normal ALB 3.3 LAB L501.1950 2.2-4.2 g/dL Normal GLOB 3.5 LAB L501.2000 0.9-2.4 RATIO Normal A/G 0.9 LAB L501.2200 8.5-10.1 mg/dL CA Normal 9.0 LAB L501.4100 15-37 U/L Normal AST 34 LAB L501.4305 45-117 U/L Normal ALK P 117 LAB L501.4405 13-56 U/L Normal ALT 31 LAB L501.4600 0.20-1.00 mg/dL T Normal BILI 0.60 LAB L501.5300 136-145 mmol/L NA Normal 140 LAB L501.5600 3.5-5.1 mmol/L K Normal 3.9 LAB L501.5900 98-107 mmol/L CL Normal 104 LAB L501.6100 21.0-32.0 mmol/L Normal CO2 32.0 LAB L501.6200 5-15 Low GAP 4 Performed By: #### L500.4050 #### [facility] [address] [place], [address] CARDIOLOGY VISIT Observed: 01/17/2018 Status: F Source: [place] REPORT 5:58 PM REPOSITORY [facility] [address] [place] [address] OFFICE VISIT Date of Service: 01/17/18 MR#: [id number] Acct: [id number] Name: PATRICIA HAWLEY Rep #: [id number] : 1945 Provider: RICO Gould Age/Sex: 72/F Location: [facility] Status: Signed HPI HPI Details: PATRICIA HAWLEY, is a 72 F who presents to the office today for a cardiovascular outpatient follow-up. She has a history of hypertension and mildly decreased LV function. Pt. denies chest, arm, jaw, or neck discomfort. His exercise tolerance is stable though very limited. Pt. denies symptoms of palpitations, lightheadedness, dizziness, near syncope, or syncopal episodes. Pt. denies edema or claudication issues. Pt. denies orthopnea, PND, fever, chills, blood in urine, blood in stool, myalgia, or unexplainable fatigue. She states rare episodes of moments where she has to take a large breath. Intake Vital Signs01/17/18 Height 5 ft 2 in 01/17/18 Weight: 192 lb 01/17/18 Body Mass Index (BMI) 35.1 Intake Visit Reasons: 6 M FU (pt r/s from [facility] 4-5) [employer] Required: No Accompanied by: Is patient in pain?: No Allergies sulfamethoxazole [From Bactrim] Allergy (Verified 01/17/18 13:18) Rash trimethoprim [From Bactrim] Allergy (Verified 01/17/18 13:18) Rash amoxicillin [From Augmentin] Adverse Reaction (Verified 01/17/18 13:18) Nausea/Vom/Diarrhea clavulanic acid [From Augmentin] Adverse Reaction (Verified 01/17/18 13:18) Nausea/Vom/Diarrhea nitrofurantoin macrocrystalline [From Macrodantin] Adverse Reaction (Verified 01/17/18 13:18) Vomiting Medications Gabapentin 300 mg PO 4X/DAY 07/29/13 [History Confirmed 12/02/17] Cholecalciferol (Vitamin D3) [Vitamin D3] 50,000 unit PO QMONTH 10/04/15 [History Confirmed 11/25/17] Methadone HCl 10 mg PO BID 10/04/15 [History Confirmed 12/02/17] Sertraline HCl [Zoloft] 50 mg PO QHS 10/04/15 [History Confirmed 12/02/17] Metoprolol Tartrate [Lopressor (beta melissa)] 50 mg PO BID 06/10/17 [History Confirmed 01/17/18] Omeprazole [Prilosec] 20 mg PO DAILY PRN 06/10/17 [History Confirmed 11/25/17] oxycodone-acetaminophen 5 mg-325 mg tablet 2 tab PO Q6H PRN PRN tab 11/25/17 [History] ergocalciferol (vitamin D2) 50,000 unit capsule 50,000 unit PO QMONTH cap 12/02/17 [History Confirmed 12/02/17] Tizanidine HCl [Zanaflex] 2 mg PO TID #15 cap 12/12/17 [Rx] pravastatin 40 mg tablet 40 mg PO QDAY 01/17/18 [History Confirmed 01/17/18] Ejection fraction %: 45 to 49 PFSH Medical History Chronic obstructive pulmonary disease (COPD) suggested by initial evaluation (Chronic) Cardiomyopathy, secondary (Chronic) 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 use of drug (Chronic) Nonrheumatic tricuspid (valve) insufficiency (Chronic) Palpitations (Chronic) Hyperlipidemia (Chronic) Venous ulcer of left lower extremity without varicose veins (Chronic) Severe vomiting after antibiotic (Acute) Cellulitis of right leg (Resolved) DDD (degenerative disc disease) (Chronic) Gait instability (Chronic) Venous insufficiency (chronic) (peripheral) (Chronic) Peripheral vascular disease (Suspected) Venous insufficiency of right leg (Chronic) Venous insufficiency (Suspected) Edema, lower extremity (Chronic) Non-pressure chronic ulcer of right lower leg with fat layer exposed (Chronic) Delayed wound healing (Chronic) 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) Osteomyelitis of ankle, right, acute (Suspected) Foot drop, right (Chronic) Malnutrition (Chronic) Ankle ulcer (Chronic) Peripheral neuropathy (Chronic) Stage III pressure ulcer of ankle (Chronic) Chronic pain (Chronic) H/O open leg wound (Chronic) Benign hypertension (Chronic) Arthritis (Acute) Hemorrhoids (Acute) MRSA (methicillin resistant staph aureus) culture positive (Acute) Shortness of breath (Acute) HTN (hypertension) (Chronic) Surgical History History of hip replacement (Resolved) H/O repair of rotator cuff (Resolved) H/O hernia repair (Resolved) H/O: hysterectomy (Resolved) H/O shoulder surgery (Acute) History of back surgery (Acute) History of neck surgery (Acute) Family History Father Hypertension Mother Diabetes Hypertension Brother Diabetes Brother Cancer Sister Hypertension Social History Smoking Status: Never smoker alcohol intake: never substance use type: does not use caffeine: Yes Type: coffee Number of servings: 2 what type of physical activity do you participate in: none ROS Const Const: Negative for weakness, body ache, fever(s), chills or fatigue ENT ENT: Negative for dizziness Cardio Chest Pain: No Palpitations: No Edema: None Muscle aches with walking: None Resp Respiratory: Positive for other (Need a large breath); negative for SOB with activity, SOB at rest, SOB orthopnea\SOB lying down or paroxysmal nocturnal dyspnea GI GI: Negative nausea, black,tarry stools, bright, red blood in stools or vomiting blood/hematemesis : Negative for hematuria or frequent nighttime urination/ nocturia Musc Musc: Negative for muscle aches/ myalgia Skin Skin: Negative non-healing lesions or rash Neuro Neuro: Negative for lightheadedness, near syncope, syncope, orthostatic symptoms, weakness or dizziness Endo Endo: Negative for fatigue Allergy Allergy/Immunology: Negative for rash Cardiology Exam Const Appearance: cooperative, healthy appearing, comfortable and no acute distress Orientation: alert, awake and oriented x3 Head Head: normal to inspection Ears: hearing grossly normal bilaterally Nose: external nose normal Face and Sinus: face symmetric Mouth: oral mucosae normal Eyes General: appearance normal, both eyes and all related structures Eyelids: eyelids normal Neck Neck: no JVD and normal visual inspection Carotids: normal carotid upstroke Chest Chest inspection: normal inspection of the chest and normal respiratory effort; negative cough Auscultation: Bilateral: Clear to Auscultation Cardio Rate: regular rate Rhythm: regular rhythm Heart sounds: S1 normal and S2 normal; negative rub or gallop GI GI: normal to inspection Neuro General: alert, awake, oriented x3 and CN's II-XI intact bilaterally Skin Skin: no rashes or lesions noted Extremities Pulses: Normal: Right Posterior Tibial Pulse, Left Posterior Tibial Pulse, Right Radial Pulse, Left Radial Pulse Lower Extremity Edema: +1: Bilateral Psych Psychological: normal affect Supplemental Info Stress test from May 2015 showed a normal pharmacological myocardial perfusion scan with no evidence of ischemia and showed a preserved ejection fraction. Echocardiogram from December 2014 showed an estimated ejection fraction 45%, mild global hypokinesis of left ventricle, and mild tricuspid valve insufficiency. Heart catheterization from March 2000 showed angiographically normal left main coronary artery, LAD has angiographically normal, LCx as angiographically normal, RCA as angiographically normal and preserved left ventricular systolic function. Ankle brachial index from January 2015 showed bilateral lower extremities with no evidence of significant arterial occlusive disease with an ankle brachial index of 1.08 on the right and 1.11 on the left with triphasic flow noted. Assessment AND Plan 1. Cardiomyopathy, secondary I42.9 MIRA Keane Patient's echocardiogram from December 2014 showed an estimated ejection fraction of 45%. Her stress test from May 2015 showed no evidence of ischemia. Patient denies any exertional shortness of breath or lower extremity edema. Her activity level has remained stable, though minimal. She will continue current medications which include beta-melissa. We will continue to monitor this through history, exam, and repeat echocardiogram as needed. 2. Benign hypertension I10 MIRA Keane Patient's blood pressure is well-controlled today in the office. We will continue to monitor this. We will not make any medication regimen changes. 3. Peripheral vascular disease I73.9 MIRA Keane Patient's most recent TRA from January 2015 was negative for significant arterial occlusive disease. She will continue current medications. We will continue to monitor this. 4. Palpitations R00.2 Plan - MIRA Carranza It was recommended at last office visit in June 2017 that she undergo a 24-hour Holter monitor for further evaluation of this. Patient declined this test. She denies any recurrent episodes. She will continue current medications and we will continue to monitor this. Plan Detail Additional Comments - MIRA Carranza Discussed the above patient with Dr. Sotelo, he agrees with the plan of care. Thank you for allowing us to participate in the patients plan of care, if you have any questions please do not hesitate to call. This note was generated using a voice recognition system and there may be incorrect words, spelling or punctuation that were not noted when reviewing the office note prior to saving. Coding Level of Care Code Off vis,est,level 3 Diagnoses Cardiomyopathy, secondary I42.9 Benign hypertension I10 Peripheral vascular disease I73.9 Palpitations R00.2 Coding Level of Care Code Off vis,est,level 3 Diagnoses Cardiomyopathy, secondary I42.9 Benign hypertension I10 Peripheral vascular disease I73.9 Palpitations R00.2 01/17/18 1612 <Electronically signed by Harpreet LEDBETTERC> Date Harpreet Gould SKIDWAY MANChandlerC 01/17/18 1758<Electronically signed by Nahid Sotelo MD> Cosigner Signature: Date (if applicable) Nahid Sotelo MD CC: Nahun Casillas MD MISCELLANEOUS LAB Collected: 12/16/2017 Status: F Source: [facility] PROCEDURE 12:09 PM REPOSITORY Order Comment: Comments: lc [id number] DRUG SCREEN W METHADONE WB GT RT Test(s) Ordered: lc [id number] DRUG SCREEN W METHADONE WB GT RT TYPE CODE TESTS RESULT OUT OF RANGE REFERENCE UNITS LAB L801.1541 Normal [facility] [place] Result Comment: TEST RESULT UNITS REF INTERVAL Drug Screen 10 w/Conf, WB AMPHETAMINES, [place] Negative ng/mL Cutoff:50 BARBITURATES, [place] Negative ug/mL Cutoff:0.1 BENZODIAZEPINES, [place] Negative ng/mL Cutoff:20 COCAINE/METABOLITE,IA Negative ng/mL Cutoff:25 PHENCYCLIDINE, [place] Negative ng/mL Cutoff:8 THC (MARIJUANA) MTB,IA Negative ng/mL Cutoff:5 OPIATES, IA Negative ng/mL Cutoff:5 OXYCODONES, IA ++POSITIVE++ ng/mL Cutoff:5 METHADONE, [place] ++POSITIVE++ ng/mL Cutoff:25 PROPOXYPHENE, [place] Negative ng/mL Cutoff:50 This test was developed and its performance characteristics determined by [facility]. It has not been cleared or approved by the Food and Drug Administration. METHADONE,MS,WB/SP RFX Methadone Confirmation Positive Methadone 180.2 ng/mL Confirmation threshold: 1.0 ng/mL OXYCODONES,MS,WB/SP RFX Oxycodones Confirmation Positive Oxycodone 2.9 ng/mL Oxymorphone Negative ng/mL Confirmation threshold: 1.0 ng/mL TESTING PERFORMED AT [facility]. ORIGINAL REPORT ON FILE IN LAB CONTAINS ADDITIONAL TEST SITE INFORMATION. Performed By: #### L801.1541 #### [facility] [address] [place], [address] EMERGENCY DEPARTMENT Observed: 12/12/2017 Status: F Source: [place] SUMMARY 1:34 PM REPOSITORY [facility] Medical Records Department [address] [place] [address] Emergency Department Summary 12/12/17 1308 MR#: [id number] Acct: [id number] Name: PATRICIA HAWLEY Rep #: [id number] : 1945 72 From: Amos Montanez MD PCP: Nahun Casillas MD, Chi Status: REG ER - ER Visit Summary Date of Service: 12/12/17 Chief Complaint: Back pain History of Present Illness: The patient is a 72 F who presents with worsening of her chronic back pain. It has been worse for the past 2 days. She states that she was twisted in bed and was holding up a light for her and when she turned back she started having pain. Movement makes it worse and laying on her right side makes it better. Denies any numbness or tingling. No bowel or bladder incontinence. She takes gabapentin, methadone and Percocet for her back pain at home. She normally ambulates in a wheelchair and has limited walking mobility at home. Physical Examination: Vital signs are reviewed. HEENT exam unremarkable. Heart is regular rate and rhythm. Lungs are clear to auscultation. Abdomen is soft and nontender. Back exam reveals diffuse lumbar spinal tenderness palpation. Her neurologic exam is normal. Test Results: Lumbar spine x-ray reveals degenerative changes Emergency Department Course and Treatment: Patient was given Norflex and feels better. I feel this is likely muscular. This is an exacerbation of her chronic low back pain. I will treat her with a short course of Zanaflex at home. She will follow- up with her PCP Treatment Plan: [] Disposition: Discharge Impression: Acute on chronic low back pain This note was generated with [employer] dictation software. It may contain incorrect words, spelling, and punctuation that were not noted in review of the chart prior to signing ED Disposition - Plan for ED Patient: Chief Complaint: Back Referrals: Nahun Casillas Chi, MD [Primary Care Provider] - What to do if you have Problems For any increased pain, shortness of breath, bleeding, nausea or vomiting, chest pain, or any unexpected problems, contact your Primary Care Provider. Call [facility] ([phone]) or report to the closest Emergency Room. Call 911 if necessary. 12/12/17 3210 <Electronically signed by Amos Montanez MD> Date Amos Montanez MD Cosigner Signature (If Indicated): Date CC: Nahun Casillas MD DISCHARGE INSTRUCTION Observed: 12/12/2017 Status: F Source: [place] 1:34 PM REPOSITORY [facility] Medical Records Department [address] [place] [address] Discharge Instruction 12/12/17 1333 MR#: [id number] Acct: [id number] Name: PATRICIA HAWLEY Rep #: [id number] : 1945 72 From: Amos Montanez MD PCP: Nahun Casillas MD, Chi Status: REG ER ED Disposition - Plan for ED Patient: Disposition: Home or Assisted Living Chief Complaint: Back Instructions: ED Neck Back Pain General Prescriptions: Tizanidine HCl [Zanaflex] 2 mg PO TID #15 cap Referrals: Nahun Casillas Chi, MD [Primary Care Provider] - What to do if you have Problems For any increased pain, shortness of breath, bleeding, nausea or vomiting, chest pain, or any unexpected problems, contact your Primary Care Provider. Call [facility] ([phone]) or report to the closest Emergency Room. Call 911 if necessary. 12/12/17 1334 <Electronically signed by Amos Montanez MD> Date Amos Montanez MD Cosigner Signature (If Indicated): Date CC: Nahun Casillas MD LUMBAR SPINE 2 OR 3 Observed: 12/12/2017 Status: F Source: [facility] VIEWS 12:16 PM REPOSITORY [facility] Imaging Services [address] [place] [address] Lumbar Spine 2 or 3 Views MR#: [id number] Acct: [id number] Name: PATRICIA HAWLEY Rep #: [id number] : 1945 F 72 From: Colt Palafox MD PCP: Vinny GOODMAN,Nahun Meyers Status: REG ER Study: Lumbar Spine 2 or 3 Views Date of Exam: 12/12/17 Exam# [id number] Ordering Dr: Amos Montanez MD STUDY: X-RAY - LUMBAR SPINE REASON FOR EXAM: Female, 72 years old. Chronic back pain. TECHNIQUE: 3 view(s) of the lumbar spine were obtained. COMPARISON: Comparison is made with prior study dated November 14, 2015. FINDINGS: Normal lumbar lordosis. There is a mild dextroscoliosis of the lumbar spine. There is a normal alignment of the vertebrae. There is multilevel endplate spondylosis of the lumbar vertebrae. There is multi-level degenerative disc disease with multi-level disc space narrowing. Facet joint osteoarthritis. The patient is status post multilevel laminectomy. Status post right hip replacement. There is atherosclerotic calcification of the abdominal aorta without a demonstrated aneurysm. RAD/Lumbar Spine 2 or 3 Views IMPRESSION: Degenerative changes of the spine, as detailed above. There has been no change as compared to prior study. Electronically Signed: Colt Palafox MD at 13:05 EDT Tel [phone], Service support , CC: Amos Montanez MD; Nahun Casillas MD Steel Rule Die Maker Apprentice: Signed CBC W/DIFF, AUTOMATED Collected: 11/28/2017 Status: F Source: [facility] 10:25 AM REPOSITORY TYPE CODE TESTS RESULT OUT OF RANGE REFERENCE UNITS LAB L100.1000 4.4-11.0 K/mm3 Normal WBC 6.3 LAB L100.1200 4.2-5.4 M/mm3 Normal RBC 4.25 LAB L100.1300 12.0-15.0 g/dl Normal HGB 13.2 LAB L100.1400 37-47 % Normal HCT 40.5 LAB L100.1500 81-99 fL Normal MCV 95.3 LAB L100.1600 27.0-32.0 pg Normal MCH 31.1 LAB L100.1700 32-36 g/gl Normal MCHC 32.6 LAB L100.1810 11.6-14.6 % Normal RDW CV 14.6 LAB L100.1820 35.1-43.9 fl High RDW SD 48.6 LAB L100.1900 150-450 K/mm3 Normal PLT 240 LAB L100.2000 6.2-12.0 fl Normal MPV 10.6 LAB L100.2100 47-70 % Normal NEUT% 58.4 LAB L100.2200 19-41 % Normal LY% 28.3 LAB L100.2300 0-10 % Normal MONO% 9.7 LAB L100.2400 0-5 % Normal EO% 2.9 LAB L100.2500 0-1 % Normal BASO% 0.5 LAB L100.2550 0.0-0.9 % Normal IM GRAN % 0.200 Result Comment: IG% - Immature Granulocytes (promyelocytes, myelocytes and metamyelocytes) > 1% indicates that a LEFT SHIFT is Present. LAB L100.2620 2.0-7.7 X10 3/uL Normal Absolute Neut 3.7 LAB L100.2720 0.83-4.51 X10 3/ul Normal Absolute Lymph 1.77 Performed By: #### L100.0100 #### [facility] [place], [place], [id number] COMPREHENSIVE METABOLIC Collected: 11/28/2017 Status: F Source: [facility] 10:25 AM REPOSITORY TYPE CODE TESTS RESULT OUT OF RANGE REFERENCE UNITS LAB L501.0100 74-106 mg/dL Normal GLU 84 Result Comment: Please note revised GLUCOSE reference range effective 2017. LAB L501.1000 7-18 mg/dL High BUN 25 LAB L501.1100 0.55-1.02 mg/dL Normal CREAT,SERUM 0.60 Result Comment: The validity of the calculated GFR AND GFRAA in patients over 70 years has not been determined. Clinical correlation is essential. LAB L501.1110 >60 mL/min Normal EST GFR 104 Result Comment: Non- GFR Calc LAB L501.1115 >60 mL/min Normal EST GFR - AA 125 Result Comment: GFR Calc LAB L501.1300 10-20 RATIO High BUN/CRE 41.5 LAB L501.1500 6.4-8.2 g/dL T Normal PROT 7.0 LAB L501.1800 3.2-5.0 g/dL Normal ALB 3.4 LAB L501.1950 2.2-4.2 g/dL Normal GLOB 3.6 LAB L501.2000 0.9-2.4 RATIO Normal A/G 0.9 LAB L501.2200 8.5-10.1 mg/dL CA Normal 9.3 LAB L501.4100 15-37 U/L Normal AST 32 LAB L501.4305 45-117 U/L Normal ALK P 90 LAB L501.4405 13-56 U/L Normal ALT 31 Result Comment: Please note revised ALT reference range effective 2017. LAB L501.4600 0.20-1.00 mg/dL Normal T BILI 0.60 LAB L501.5300 136-145 mmol/L Normal NA 137 LAB L501.5600 3.5-5.1 mmol/L Normal K 4.6 LAB L501.5900 98-107 mmol/L Normal CL 100 LAB L501.6100 21.0-32.0 mmol/L Normal CO2 30.0 LAB L501.6200 5-15 Normal GAP 7 Performed By: #### L500.4050, L501.9520 #### [facility] [address] [place], [place], [id number] THYROID STIM HORMONE Collected: 11/28/2017 Status: F Source: [facility] (TSH) 10:25 AM REPOSITORY TYPE CODE TESTS RESULT OUT OF RANGE REFERENCE UNITS LAB L501.9520 0.358-3.74 uIU/mL Normal TSH 2.44 Performed By: #### L500.4050, L501.9520 #### [facility] [address] [place], [place], [id number] HEPATITIS C ANTIBODIES Collected: 11/28/2017 Status: F Source: [facility] 10:25 AM REPOSITORY TYPE CODE TESTS RESULT OUT OF RANGE REFERENCE UNITS LAB L3100.0650 0.0-0.9 s/co ratio Normal HEP C AB <0.1 Result Comment: Negative: < 0.8 Indeterminate: 0.8 - 0.9 Positive: > 0.9 The CDC recommends that a positive HCV antibody result be followed up with a HCV Nucleic Acid Amplification test (492003). Performed at: [facility] [id number] [place] Foreman: Kyle White PhD, Phone: [phone] Performed By: #### L3100.0625 #### [facility] (refer to report for specific site) refer to report for address and phone number VITAMIN D,25 HYDROXY Collected: 11/28/2017 Status: F Source: [place] 10:25 AM REPOSITORY TYPE CODE TESTS RESULT OUT OF RANGE REFERENCE UNITS LAB L506.1000 29.95-100.01 ng/mL Normal Vitamin D 50.4 25-OH Result Comment: Vitamin D 25(OH) Status Range Deficiency <20 ng/mL (50nmol/L) Insuffciency 20 - 30 ng/mL (50 - 75 nmol/L) Sufficiency 30 - 100 ng/mL (75 - 250 nmol/L) Toxicity >100 ng/mL (>250 nmol/L) Performed By: #### L506.1000 #### [facility] [place], [address] Observed: 11/27/2017 Status: F Source: [facility] CULTURE, URINE 1:10 PM REPOSITORY Urine Culture #2 Below infection level. ORGANISM 1: Presumptive E. coli Mckenna Count 25,000-50,000 ORGANISM 2: Mixed Gram Positive Organisms Mckenna Count 1000-10,000 Presumptive E. coli: REACTION Amoxacillin/Clavulanic Acid $ 16 I Ampicillin $ >=32 R Ampicillin/Sulbactam $ >=32 R Cefazolin $ <=4 S Cefepime $ <=1 S Ceftriaxone $ <=1 S Ciprofloxacin $ <=0.25 S ESBL - Ertapenim $$$ <=0.5 S Gentamicin $ <=1 S Imipenem *NF <=0.25 S Levofloxacin $ <=0.12 S Nitrofurantoin $ <=16 S Piperacillin/Tazobactam $$ <=4 S Tobramycin $ <=1 S Trimethoprim/Sulfametho $ <=20 S (NF) indicates non-formulary drug at [facility]. Approval by Infectious Disease Specialist required before non-formulary drugs may be ordered and/or dispensed. Performed By: #### M100.0650 #### [facility] [address] [place], [address] URGENT CARE VISIT Observed: 11/26/2017 Status: F Source: [place] REPORT 9:18 AM REPOSITORY [facility] [address] [place] [address] [address] [place] [address] OFFICE VISIT Date of Service: 11/25/17 MR#: [id number] Acct: [id number] Name: PATRICIA HAWLEY Rep #: [id number] : 1945 Provider: Tex CROCKETT Age/Sex: 72/F Location: [facility] Status: Signed Intake Vital Signs11/25/17 Height 5 ft 4 in 11/25/17 Weight: 200 lb 11/25/17 Body Mass Index (BMI) 34.3 Intake Visit Reasons: BLADDER INFECTION Is patient in pain?: No Allergies sulfamethoxazole [From Bactrim] Allergy (Verified 11/25/17 16:49) Rash trimethoprim [From Bactrim] Allergy (Verified 11/25/17 16:49) Rash amoxicillin [From Augmentin] Adverse Reaction (Verified 11/25/17 16:49) Nausea/Vom/Diarrhea clavulanic acid [From Augmentin] Adverse Reaction (Verified 11/25/17 16:49) Nausea/Vom/Diarrhea nitrofurantoin macrocrystalline [From Macrodantin] Adverse Reaction (Verified 11/25/17 16:49) Vomiting Medications Gabapentin 300 mg PO 4X/DAY 07/29/13 [History Confirmed 11/25/17] Cholecalciferol (Vitamin D3) [Vitamin D3] 50,000 unit PO QMONTH 10/04/15 [History Confirmed 11/25/17] Methadone HCl 10 mg PO BID 10/04/15 [History Confirmed 11/25/17] Sertraline HCl [Zoloft] 50 mg PO QHS 10/04/15 [History Confirmed 11/25/17] Metoprolol Tartrate [Lopressor (beta melissa)] 50 mg PO BID 06/10/17 [History Confirmed 11/25/17] Omeprazole [Prilosec] 20 mg PO DAILY PRN 06/10/17 [History Confirmed 11/25/17] Pravastatin [Pravachol] 40 mg PO QHS 06/10/17 [History Confirmed 11/25/17] oxycodone-acetaminophen 5 mg-325 mg tablet 2 tab PO Q6H PRN PRN tab 11/25/17 [History] PFSH Medical History Arthritis (Acute) Hemorrhoids (Acute) MRSA (methicillin resistant staph aureus) culture positive (Acute) HTN (hypertension) (Chronic) Surgical History H/O shoulder surgery (Acute) History of back surgery (Acute) History of neck surgery (Acute) Social History Smoking Status: Never smoker alcohol intake: never HPI HPI Details: PATRICIA HAWLEY, is a 72 F who presents to the office today for back pain. Patient states that her back pain has changed over the past couple days and she is concerned for possible UTI. Her caregiver who is with her states that the patient has chronic back pain issues and was to her back pain specialist earlier today. Patient denies any dysuria, hematuria, increased urinary frequency or urgency. She has not no abdominal or pelvic pain. No fever, chills, sweats. No nausea, vomiting or diarrhea. No other associated symptoms or alleviating/aggravating factors. ROS Const Constitutional: No chills, fever(s) or abnormal sleep pattern Resp Respiratory: No shortness of breath or chest congestion Cardio Cardiology: No chest pain at rest, chest pain with exertion or shortness of breath Gastro GI: No incontinent of stools Genitourinary-Female: No burning urination, painful urination, urinary frequency, urinary urgency, genital itching or urinary incontinence Musc Musculoskeletal: Positive for back pain Skin Skin: No wounds or lesions Neuro Neurology: No behavioral changes or confusion Psych Psychiatric: No behavioral changes, No confusion, No abnormal sleep pattern Exam Const General: cooperative, healthy appearing [facility] Head: normocephalic, atraumatic Ears: hearing grossly normal bilaterally Eyes General: appearance normal, both eyes and all related structures Pupils: PERRL Resp Effort AND Inspection: normal respiratory effort Auscultation: Bilateral: Clear to Auscultation Cardio Palpation: normal PMI Rate: regular rate Rhythm: regular rhythm General: bimanual renal exam normal bilaterally, No CVA tenderness Skin General: no rashes or lesions noted Neuro General: alert, CN's II-XI intact bilaterally Psych Appearance: grossly normal Mental Status: mental status grossly normal Assessment AND Plan Problems 1. Strain of lumbar region, initial encounter S39.012A Plan Patient was unable to leave a urine sample and therefore in order has been sent to [facility] for a take home kit. No antibiotics will be given at this time as she has no specific UTI signs or symptoms. Encouraged to get plenty of rest, drink lots of clear liquids, and use Tylenol or Ibuprofen (unless contraindicated) for fever and comfort. Patient also educated on other symptomatic management techniques. To be seen in 7-10 days if no improvement; sooner if worsening of symptoms. Patient advised of potential red flags and when appropriate report to the ED. Patient verbalized understanding of all the above. Orders Orders: Coding Level of Care Code Off vis,est,level 3 Diagnoses Strain of lumbar region, initial encounter S39.012A Encounter type: initial encounter 11/26/17 0918 <Electronically signed by Tex CROCKETT> Date Tex CROCKETT Cosigner Signature: Date (if applicable) CC: ALLERGIES ALLERGIES DATE TYPE / NAME / CODE REACTION SEVERITY SOURCE CODE 08/12/2018 Drug nitrofurantoin Vomiting Unknown [place] Allergy/41 macrocrystalline/F00 [facility] [id number]( 1575084(RXNO) [facility]) Repository 08/12/2018 Drug clavulanic Nausea/Vom/Destinee Unknown [place] Allergy/41 acid/[id number](RXNO rrhea [facility] [id number]([facility]) Repository 08/12/2018 Drug sulfamethoxazole/F00 Rash Unknown [place] Allergy/41 4278510(RXNORM) [facility] [id number]([facility]) Repository 08/12/2018 Drug trimethoprim/R748002 Rash Unknown [place] Allergy/41 873(RXNORM) Community [id number]([facility]) Repository 08/12/2018 Drug amoxicillin/[id number] Nausea/Vom/Destinee Unknown [place] Allergy/41 75(RXNORM) rrhea Community 7956797([facility]) Repository ENCOUNTERS ENCOUNTERS ADMIT/DISCHARGE ACCOUNT ADMITTING ENCOUNTER LOCATION SOURCE NUMBER CLASS 08/12/2018 [id number] Ambulatory BMSBuilding:B [place] 9 [facility] Repository 08/11/2018 [id number] Ambulatory Ali[place] 1 [facility] ing:OLS.AVED Repository 08/02/2018 [id number] Ambulatory [place] 8 [facility] ing:OLS.AVE Repository 06/28/2018 [id number] [place]ulatory [place] 7 [facility] ing:OLS.AVEC Repository 05/12/2018 [id number] Ambulatory Ali[place] 4 [facility] ing:OLS.AVED Repository 04/23/2018 [id number] Ambulatory [place] Aliya 3 [facility] ing:MRI Repository 03/31/2018 [id number] Ambulatory [place] Ali[place] 7 [facility] ing:OLS.AVED Repository 01/27/2018 [id number] [place] 4 [facility] ing:OLS.AVEB Repository 01/26/2018 [id number] Ambulatory [place] Aliya 6 [facility] ing:OLS.AVEB Repository 01/17/2018/ [id number] Ambulatory BMSBuilding:B [place] 8 3 [facility] Repository 01/14/2018 [id number] Ambulatory BMS [place] 7 [facility] Repository 01/03/2018 [id number] Ambulatory BMSBuilding:B [place] 2 [facility] Repository 12/16/2017 [id number] [place]ulatory [place] 5 [facility] ing:LAB Repository 12/12/2017/ [id number] Emergency [place] Aliya 8 0 [facility] ing:ED Repository 11/28/2017 [id number] [place]ulatory [place] 2 [facility] ing:POLAB3 Repository 11/27/2017 [id number] Ambulatory [place] 4 [facility] ing:LABSPEC Repository 11/25/2017/ [id number] Ambulatory BMSBuilding:B [place] 8 0 [facility] Repository PAYERS PAYERS ENCOUNTER GUARANTOR PAYER SUBSCRIBER SOURCE 08/12/2018 [address] Primary PATRICIA A [place] AT [id number] E Insurance:MEDICARE MILLERDOB: [facility] [id number] [place] Number: Repository [id number]: 330 [id number] [phone] () Date:2018-01-17 08/12/2018 Secondary PATRICIA A [place] Insurance:AARPPolicy MILLERDOB: [facility] Number: [id number] Hospital [id number] Repository Date:4995-12-64CF [address]QLBJO, [place] [address]MM: 08/12/2018 Tertiary NOT GIVENUNK [place] Insurance:SELF PAY [facility] Number: Effective Repository Date:2018-05-21 08/11/2018 PATRICIA A [address] Primary NOT GIVENUNK [place] AT [id number] E Insurance:SELF [place]Y [place] Number: Effective Repository [phone]: ([phone]) Date:2018-08-11 [phone] () 08/02/2018 PAT[address]ICIA A [address] Primary PATRICIA A [place] AT [id number] E Insurance:MEDICARE MILLERDOB: [facility] [id number] [place] Number: Repository [id number]: 330 [id number] [phone] () Date:2018-08-02 08/02/2018 Secondary PATRICIA A Ali[place] Insurance:AARPPolicy MILLERDOB: [facility] Number: [id number] [place] [address] [id number] Repository Date:3139-38-75SR [address]FYVQBLB, [place] [address]MT: 08/02/2018 Tertiary PATRICIA A [place] Insurance:CARESOURCEP MILLERDOB: [facility] Number: [id number] Hospital [id number] Repository Date:2018-08-02P [address]ATTN: [place] [address]BZ: 08/02/2018 Tertiary NOT GIVENUNK [place] Insurance:SELF PAY [facility] Number: Effective Repository Date:2018-08-02 06/28/2018 PATRICIA A MILLERTHE Primary PATRICIA A Aliya [id number] E Insurance:CARESOURCEP MILLERDOB: [facility] Number: [id number] [place] [id number] Repository [address]Tco: [phone]) Date:2018-06-28P O [phone] () [address]ATTN: [place] [address]QJ: 06/28/2018 Secondary NOT GIVENUNK [place] Insurance:SELF PAY [facility] Number: Effective Repository Date:2018-06-28 05/12/2018 PATRICIA A MILLERTHE Primary PATRICIA A Aliya [id number] E Insurance:MEDICARE MILLERDOB: [facility] [id number] [place] Number: Repository [phone]: [phone] [id number] [phone] () Date:2018-05-12 05/12/2018 Secondary PATRICIA A [place] Insurance:AARPPolicy MILLERDOB: [facility] Number: [id number] Hospital [id number] Repository Date:7651-77-41SH [address]XDTJOXH, [place] [address]MW: 05/12/2018 Tertiary NOT GIVENUNK [place] Insurance:SELF PAY [facility] Number: Effective Repository Date:2018-05-12 04/23/2018 PATRICIA A MILLERTHE Primary PATRICIA A Aliya [id number] E Insurance:MEDICARE MILLERDOB: [facility] [id number] [place] Number: Repository [id number]: [phone] [id number] [phone] () Date:2018-04-17 04/23/2018 Secondary PATRICIA Pisano Insurance:AARPPolicbilly HAWLEYDOB: Community Number: [id number] Hospital [id number] Repository Date:3359-12-67VI [address]TLQHCEB, [place] [address]HR: 04/23/2018 Tertiary NOT GIVENUNK [place] Insurance:SELF PAY [facility] Number: Effective Repository Date:2018-04-17 03/31/2018 Patricia Fajardo Primary Patricia Pisano [id number] E Insurance:MEDICARE MillerDOB: [facility] A [facility] [id number] [place] Number: Repository [phone]: [phone] [id number] [phone] () Date:2018-03-31 03/31/2018 Secondary Patricia Piper [place] Insurance:AARPPgabriel HawleyDOB: Community Number: [id number] Hospital [id number] Repository Date:0457-78-56VD [address]XDZNLY, [place] [address]AW: 03/31/2018 Tertiary NOT GIVENUNK [place] Insurance:SELF PAY [facility] Number: Effective Repository Date:2018-03-31 01/27/2018 PATRICIA HAWLEY1684 Primary NOT GIVENUNK [place] Insurance:SELF PAY [address] [place] [address]Cfr: Number: Effective Repository [phone] Date:2018-01-27 () 01/26/2018 PATRICIA HAWLEY1684 Primary NOT GIVENUNK [place] Insurance:SELF PAY [address] [place] [address]Xxl: Number: Effective Repository [phone] Date:2018-01-26 () 01/17/2018 PATRICIA HAWLEY1684 Primary PATRICIA Piper [place] Insurance:MEDICARE MILLERDOB: [address] A [facility] [id number] [address]Igt: Number: Repository [phone] [id number] (HP) Date:2017-12-11 01/17/2018 Secondary PATRICIA Piper [place] Insurance:AARPPolicy MARLEENDOB: Community Number: [id number] Hospital [id number] Repository Date:5053-21-73GW [facility] [address]2704NJ[place]FHS, [place] [address]HN: 01/17/2018 Tertiary NOT GIVENUNK [place] Insurance:SELF PAY [facility] Number: Effective Repository Date:2018-01-17 01/14/2018 PATRICIA HAWLEY1684 Primary PATRICIA [place] Insurance:MEDICARE MILLERDOB: [facility] [address] PART A [facility] [id number] Hospital [address]Dff: Number: Repository [phone] [id number] (HP) Date:2018-01-14 01/14/2018 Secondary PATRICIA Piper [place] Insurance:AARPPolicbilly HAWLEYDOB: Community Number: [id number] Hospital [id number] Repository Date:2769-40-31KN [address]DUQQNUF, [place] [address]VO: 01/14/2018 Tertiary NOT GIVENUNK [place] Insurance:SELF PAY [facility] Number: Effective Repository Date:2018-01-14 01/03/2018 PATRICIA HAWLEY1684 Primary PATRICIA [place] Insurance:MEDICARE MILLERDOB: [address] PART A [facility] [id number] Hospital [address]Aqi: Number: Repository [phone] [id number] (HP) Date:2018-01-03 01/03/2018 Secondary PATRICIA Piper [place] Insurance:LUIS FELIPEPPolicbilly HAWLEYDOB: Community Number: [id number] Hospital [id number] Repository Date:4725-88-55RE [facility] [address]76[place], [place] [address]NU: 01/03/2018 Tertiary NOT GIVENUNK [place] Insurance:SELF PAY Community [facility] Number: Effective Repository Date:2018-01-03 12/16/2017 PATRICIA HAWLEY1684 Primary PATRICIA [place] Insurance:MEDICARE MILLERDOB: Community [address] PART A [facility] [id number] Hospital [address]Odd: Number: Repository [phone] [id number] (HP) Date:2017-12-16 12/16/2017 Secondary PATRICIA Piper [place] Insurance:AARPPolicy MILLERDOB: Community Number: [id number] Hospital [id number] Repository Date:3037-10-73[address]JVDZPGP, [place] [address]HW: 12/16/2017 Tertiary NOT GIVENUNK [place] Insurance:SELF PAY [facility] Number: Effective Repository Date:2017-12-16 12/12/2017 PATRICIA GILLIAM4 Primary PATRICIA Pis[place] Insurance:MEDICARE MILLERDOB: Community [address] PART A [facility] [id number] Ville [id number]: Number: Repository [phone] [id number] (HP) Date:2017-12-12 12/12/2017 Secondary PATRICIA Saldaña [place] Insurance:AARPPolicy MILLERDOB: Community Number: [id number] Hospital [id number] Repository Date:5233-32-53SP [facility] 126[address]EPHJOJG, [place] [address]LG: 12/12/2017 Tertiary NOT GIVENUNK [place] Insurance:SELF PAY [facility] Number: Effective Repository Date:2017-12-12 11/28/2017 PATRICIA GILLIAM4 Primary PATRICIA [place] Insurance:MEDICARE MILLERDOB: Community [place] PART A [facility] [id number] Hospital [address]Efx: Number: Repository [phone] [id number] (HP) Date:2017-11-28 11/28/2017 Secondary PATRICIA Piper [place] Insurance:AARPPolicy MILLERDOB: Community Number: [id number] Hospital [id number] Repository Date:4120-81-44QG [facility] 213455WXZVWHR, [place] [address]VS: 11/28/2017 Tertiary NOT GIVENUNK [place] Insurance:SELF PAY [facility] Number: Effective Repository Date:2017-11-28 11/27/2017 PATRICIA HAWLEY1684 Primary PATRICIA A [place] Insurance:MEDICARE MILLERDOB: [address] PART A [facility] [id number] Hospital [address]Noh: Number: Repository [phone] [id number] (HP) Date:2017-11-27 11/27/2017 Secondary PATRICIA Piper [place] Insurance:AARPPolicy MILLERDOB: Community Number: [id number] Hospital [id number] Repository Date:2042-06-65WC [facility] 309199NZ[place], [place] [address]TN: 11/27/2017 Tertiary NOT GIVENUNK [place] Insurance:SELF PAY [facility] Number: Effective Repository Date:2017-11-27 11/25/2017 PATRICIA HAWLEY1684 Primary PATRICIA HAWLEYDOB: [place] Insurance:MEDICARE [id number] PART A [facility] [address]Yrg: Number: Repository [phone] [id number] (HP) Date:2017-11-25 11/25/2017 Secondary PATRICIA MARLEENDOB: [place] Insurance:AARPPolicy [id number] Community Number: [facility] [id number] Repository Date:5588-30-69ZV [address]MXVVBYN, [place] [address]ZQ: 11/25/2017 Tertiary NOT GIVENUNK [place] Insurance:SELF PAY [facility] Number: Effective Repository Date:2017-11-25
== END ==
LOC: LAB 21:23 → OLS.AVE 08-04 13:58
PROVIDERS: Family Provider Family Medicine; PCP Family Medicine; Visit Provider Family Medicine
DX: R31.9 Hematuria, unspecified (principal)
CPT/HCPCS: 81002; 87077; 87086; 87088; 87186

== ENCOUNTER → 2018-08-11 04:00 | Outpatient (REF) | payer MEDICARE, OTHER, SELFPAY ==
[2018-08-11 08:25] LABS: Absolute Lymphocyte Count 2.52 X10^3/ul (0.83-4.51); Absolute Neutrophil Count 3.3 X10^3/uL (2.0-7.7); Basophil# 0.01 X10^3/uL; Basophil% 0.1 % (0-1); Eosinophil# 0.48 X10^3/uL; Eosinophils% 6.9 % (0-5); Hematocrit 35.9 % (37-47); Hemoglobin 11.4 g/dl (12.0-15.0); Lymphocyte # 2.52 X10^3/ul (4.0); Lymphocyte % 36.3 % (19-41); Mean Corp Hgb Conc 31.8 g/gl (32-36); Mean Corpuscular Hgb 30.2 pg (27.0-32.0); Mean Platelet Vol. 9.9 fl (6.2-12.0); Monocyte# 0.61 X10^3/uL; Monocyte% 8.8 % (0-10); Neutrophil # 3.31 X10^3/uL (2.7-7.7); Neutrophil % 47.8 % (47-70); Platelet Count 291 K/mm3 (150-450); RBC Distribution Width CV 13.1 % (11.6-14.6); RBC Distribution Width SD 44.9 fl (35.1-43.9); Red Blood Count 3.78 M/mm3 (4.2-5.4); White Blood Count 6.9 K/mm3 (4.4-11.0)
[2018-08-11 08:30] LABS: POSITIVE COUNT NO; POSITIVE DIFFERENTIAL NO; POSITIVE MORPHOLOGY NO
[2018-08-11 08:40] LABS: ALB/GLOB Ratio 0.8 RATIO (0.9-2.4); AST(SGOT) 28 U/L (15-37); Alanine Aminotransfer ALT/SGPT 21 U/L (13-56); Albumin, Serum 2.5 g/dL (3.2-5.0); Alkaline Phosphatase 81 U/L (45-117); Anion Gap 7 (5-15); BUN 17 mg/dL (7-18); BUN/Creat Ratio 31.1 RATIO (10-20); Calcium,Total 8.6 mg/dL (8.5-10.1); Chloride 107 mmol/L (98-107); Cholesterol 115 mg/dL (200); Creatinine, Serum 0.55 mg/dL (0.55-1.02); EST Glomerular Filtration Rate 116 mL/min (>60); Est Glom Filt Rate - Afr Amer 140 mL/min (>60); Globulin 3.3 g/dL (2.2-4.2); Glucose 87 mg/dL (74-106); High Density Lipoprotein 31 mg/dL; Protein, Total 5.8 g/dL (6.4-8.2); Sodium Level 141 mmol/L (136-145); Triglycerides 160 mg/dL; Very Low Density Lipoprotein 32 mg/dL (5-40)
[2018-08-11 09:02] LABS: Vitamin D,25 Hydroxy 40.3 ng/mL (29.95-100.01)
== END ==
LOC: OLS.AVED 04:00
PROVIDERS: Visit Provider Family Medicine
DX: E78.5 Hyperlipidemia, unspecified (principal); R53.83 Other fatigue; E55.9 Vitamin D deficiency, unspecified
CPT/HCPCS: 36415; 80053; 80061; 82306; 85025

== ENCOUNTER → 2018-10-07 21:55 | Outpatient (REF) | payer MEDICARE, OTHER, SELFPAY ==
[2018-10-08 08:59] LABS: Mucous, Urine 0 SEEN /hpf (<or=2+)
[2018-10-08 09:22] LABS: Color, Urine Yellow (Yellow); Glucose, Dipstick Normal (Normal); Ketone-Dipstick Negative (Negative); Leukocyte Esterase-Dipstick 500 /ul (Negative); Nitrite-Dipstick Negative (Negative); Occult Blood-Urine 250 /ul (Negative); Protein-Dipstick 500 mg/dl (Negative); Specific Gravity, Urine 1.015 (1.002-1.030); Urine Bilirubin Dipstick Negative (Negative); Urine Clarity Sl. Cloudy (Clear); Urine Urobilinogen Normal (Normal)
[2018-10-08 09:27] LABS: Bacteria 1+ /hpf (None Seen); Red Blood Cells-Urine 25-50 SEEN /hpf (0-5); Squamous Epithelial Cells - UA 0-5 SEEN /hpf (5-10); White Blood Cells 25-50 SEEN /hpf (0-5)
== END ==
LOC: OLS.AVED 21:55
PROVIDERS: Visit Provider Family Medicine
DX: R30.9 Painful micturition, unspecified (principal)
CPT/HCPCS: 81001; 87077; 87086; 87088; 87186

== ENCOUNTER → 2018-11-10 05:00 | Outpatient (REF) | payer MEDICARE, SELFPAY ==
[2018-11-10 08:26] LABS: Absolute Lymphocyte Count 2.75 X10^3/ul (0.83-4.51); Absolute Neutrophil Count 4.1 X10^3/uL (2.0-7.7); Basophil# 0.03 X10^3/uL; Basophil% 0.4 % (0-1); Eosinophil# 0.45 X10^3/uL; Eosinophils% 5.6 % (0-5); Hemoglobin 11.3 g/dl (12.0-15.0); Lymphocyte # 2.75 X10^3/ul (4.0); Lymphocyte % 34.2 % (19-41); Mean Corp Hgb Conc 30.5 g/gl (32-36); Mean Corpuscular Hgb 29.4 pg (27.0-32.0); Mean Corpuscular Volume 96.4 fL (81-99); Mean Platelet Vol. 9.5 fl (6.2-12.0); Monocyte# 0.62 X10^3/uL; Monocyte% 7.7 % (0-10); Neutrophil # 4.13 X10^3/uL (2.7-7.7); Neutrophil % 51.5 % (47-70); Platelet Count 414 K/mm3 (150-450); RBC Distribution Width CV 14.3 % (11.6-14.6); RBC Distribution Width SD 50.4 fl (35.1-43.9); Red Blood Count 3.84 M/mm3 (4.2-5.4)
[2018-11-10 08:27] LABS: POSITIVE COUNT NO; POSITIVE DIFFERENTIAL NO; POSITIVE MORPHOLOGY NO
[2018-11-10 08:58] LABS: Cholesterol 114 mg/dL (200); High Density Lipoprotein 34 mg/dL; Triglycerides 100 mg/dL; Very Low Density Lipoprotein 20 mg/dL (5-40)
[2018-11-10 08:59] LABS: Vitamin D,25 Hydroxy 28.3 ng/mL (29.95-100.01)
== END ==
LOC: OLS.AVED 05:00
PROVIDERS: Visit Provider Family Medicine
DX: E78.5 Hyperlipidemia, unspecified (principal); E55.9 Vitamin D deficiency, unspecified; R53.83 Other fatigue
CPT/HCPCS: 36415; 80061; 82306; 85025

== ENCOUNTER → 2018-12-26 09:40 | Outpatient (REF) | payer MEDICARE, OTHER, SELFPAY ==
[2018-12-03 08:35] VITALS: BMI 35.3
[2018-12-27 06:32] LABS: Mucous, Urine 0 SEEN /hpf (<or=2+); Red Blood Cells-Urine 0 SEEN /hpf (0-5)
[2018-12-27 07:10] LABS: Color, Urine Yellow (Yellow); Glucose, Dipstick Normal (Normal); Ketone-Dipstick Negative (Negative); Leukocyte Esterase-Dipstick 500 /ul (Negative); Nitrite-Dipstick Negative (Negative); Occult Blood-Urine 50 /ul (Negative); Protein-Dipstick 30 mg/dl (Negative); Urine Bilirubin Dipstick Negative (Negative); Urine Clarity Cloudy (Clear); Urine Urobilinogen Normal (Normal); Urine pH 6.5 (5.0 - 8.0)
[2018-12-27 07:14] LABS: White Blood Cells >100 SEEN /hpf (0-5)
[2018-12-27 07:15] LABS: Bacteria RARE /hpf (None Seen); Squamous Epithelial Cells - UA 0-5 SEEN /hpf (5-10)
== END ==
LOC: OLS.AVED 09:40
PROVIDERS: Visit Provider Family Medicine
DX: R53.83 Other fatigue (principal); R35.0 Frequency of micturition; R39.15 Urgency of urination
CPT/HCPCS: 81001; 87086; 87088

== ENCOUNTER → 2018-12-31 | Outpatient (REF) | payer MEDICARE, OTHER, SELFPAY ==
[2018-12-03 08:35] VITALS: BMI 35.3
[2018-12-31 08:55] LABS: Color, Urine Yellow (Yellow); Glucose, Dipstick Normal (Normal); Ketone-Dipstick Negative (Negative); Leukocyte Esterase-Dipstick 500 /ul (Negative); Nitrite-Dipstick Negative (Negative); Occult Blood-Urine 150 /ul (Negative); Protein-Dipstick 100 mg/dl (Negative); Urine Bilirubin Dipstick Negative (Negative); Urine Clarity Sl. Cloudy (Clear); Urine Urobilinogen Normal (Normal); Urine pH 6.5 (5.0 - 8.0)
== END | disposition home or self-care (01) ==
LOC: OLS.AVED 01:00
PROVIDERS: Visit Provider Family Medicine
DX: N39.0 Urinary tract infection, site not specified (principal)
CPT/HCPCS: 81002; 87077; 87086; 87088; 87186

== ENCOUNTER 2019-04-21 10:11 | Inpatient (IN) | payer MEDICARE, OTHER, SELFPAY ==
[2018-12-03 08:35] VITALS: BMI 35.3
[2019-04-21] VITALS (14 sets, daily range): BP systolic 110–163; BP diastolic 54–93; PULSE 61–86; RESP 10–24; TEMP 36.6–36.9; O2SAT 91–100; BMI 40.3; BMI 38.3; BMI 38.4
--- NOTE | 2019-04-21 10:22 | EKG12_ITS ---
Test Reason : SOB Blood Pressure : / mmHG Vent. Rate : 066 BPM Atrial Rate : 066 BPM P-R Int : 162 ms QRS Dur : 078 ms QT Int : 380 ms P-R-T Axes : 067 024 031 degrees QTc Int : 398 ms Sinus rhythm with frequent Premature ventricular complexes in a pattern of bigeminy Low voltage QRS Borderline ECG Confirmed by PRESTON MCGRATH ([id number]), clinical editor TYSON HRENANDEZ ([id number]) on 04/27/2019 2:22:01 PM Referred By: Kay Padilla Confirmed By:PRESTON MCGRATH
--- NOTE | 2019-04-21 10:25 | RAD_ITS ---
STUDY: X-RAY CHEST REASON FOR EXAM: Female, 74 years old. Dyspnea. TECHNIQUE: Single AP portable view of the chest. COMPARISON: June 10, 2017. FINDINGS: Cervical fixation hardware. Mild cardiomegaly. Aorta calcified. Normal pulmonary vascularity. Mild atelectasis/scarring. No focal patchy airspace opacities. No pleural effusions. Large hiatal hernia. No pneumothorax. Osseous structures are slightly demineralized. Advanced degenerative changes of the shoulders and spine. RAD/Chest 1 View (Portable) IMPRESSION: No acute cardiopulmonary findings Atelectasis/scarring Large hiatal hernia Electronically Signed: Luiz Cohen DO at 10:50 EDT Tel , Service support ,
[2019-04-21] MEDS: 0.9% Normal Saline 1,000 ML 80 ML IV (10:40)
[2019-04-21] MEDS: Ipratropium/Albuterol Sulfate 3 ML AMPUL.NEB INHALATION ×2 (10:40→19:26)
[2019-04-21] MEDS: MethylPREDNISolone 125 MG/2 ML Vial IV (10:40)
[2019-04-21 10:44] LABS: Absolute Lymphocyte Count 1.88 X10^3/uL (0.83-4.51); Absolute Neutrophil Count 4.6 X10^3/uL (2.0-7.7); Basophil# 0.05 X10^3/uL; Basophil% 0.6 % (0-1); Eosinophil# 0.71 X10^3/uL; Eosinophils% 8.9 % (0-5); Hematocrit 32.2 % (37-47); Hemoglobin 10.1 g/dL (12.0-15.0); Lymphocyte # 1.88 X10^3/ul (4.0); Lymphocyte % 23.6 % (19-41); Mean Corp Hgb Conc 31.4 g/dL (32-36); Mean Corpuscular Hgb 31.3 pg (27.0-32.0); Mean Corpuscular Volume 99.7 fL (81-99); Mean Platelet Vol. 10.2 fl (6.2-12.0); Monocyte# 0.66 X10^3/uL; Monocyte% 8.3 % (0-10); NRBC Flagged by Analyzer 0 % (0-5); Neutrophil # 4.62 X10^3/uL (2.7-7.7); Neutrophil % 58.2 % (47-70); Platelet Count 299 K/mm3 (150-450); RBC Distribution Width CV 14.3 % (11.6-14.6); RBC Distribution Width SD 51.6 fl (35.1-43.9); Red Blood Count 3.23 M/mm3 (4.2-5.4)
[2019-04-21 10:59] LABS: Anion Gap 2 (5-15); BUN 85 mg/dL (7-18); BUN/Creat Ratio 52.5 RATIO (10-20); Calcium,Total 9.1 mg/dL (8.5-10.1); Chloride 107 mmol/L (98-107); Creatinine, Serum 1.62 mg/dL (0.55-1.02); D-Dimer Quantitative (DVT/PE) 1.57 FEU/ug/m (0.27-0.49); EST Glomerular Filtration Rate 33 mL/min (>60); Est Glom Filt Rate - Afr Amer 40 mL/min (>60); Estimated Creatinine Clearance 21.88 ml/min; Glucose 106 mg/dL (74-106); Potassium 4.7 mmol/L (3.5-5.1); Sodium Level 139 mmol/L (136-145)
--- NOTE | 2019-04-21 10:59 | ED.RN ---
DDIMER 1.[address] CALL[address] LAB. DR COBURN AWARE
--- NOTE | 2019-04-21 11:06 | CT_ITS ---
STUDY: CTA CHEST REASON FOR EXAM: Female, 74 years old. Cough with shortness of breath RADIATION DOSAGE (If Supplied By Facility): CTDIvol = ( 12.66 ) mGy, DLP = ( 424.19 ) mGycm TECHNIQUE: The examination was performed with the intravenous administration of 75 IV Isovue 370. Post-processing of the angiographic images was performed, with multiplanar reformation and 3D reconstruction. Individualized dose optimization techniques were used for this CT. COMPARISON: None. FINDINGS: Normal enhancement of the main pulmonary artery and right and left pulmonary arteries. Suboptimal enhancement of the bilateral peripheral pulmonary arteries distal to the second order branches. There is no demonstrated pulmonary embolism in the central portion. There is atherosclerotic calcification of the aortic arch with tortuosity. There is no demonstrated aortic dissection. Normal heart and pericardium. There is no demonstrated mediastinal lymphadenopathy or mediastinal mass lesion. Normal hilar regions. Moderate hiatal hernia. Normal visualized trachea and bronchi. Mild dependent atelectasis in the upper lobes bilaterally and also in the medial aspect of the bilateral lower lobes. No significant pleural effusion. Unremarkable chest wall structures. Chronic changes along T3-4 level at the disc space, and this may represent sequelae of significant degenerative change, but it is also essential to the exclude possible discitis. Unremarkable visualized upper abdomen. CT/CTA Chest W/WO Contrast IMPRESSION: No evidence of central pulmonary embolism. Assessment of branches distal to the second order branches is limited due to suboptimal contrast. Chronic changes along T3-4 level at the disc space, and this may represent sequelae of significant degenerative change, but it is also essential to the exclude possible discitis. Moderate hiatal hernia. Mild dependent atelectasis in the upper lobes bilaterally and also in the medial aspect of the bilateral lower lobes. No significant pleural effusion. Electronically Signed: Severo Mckeon MD at 12:22 EDT Tel [phone], Service support ,
[2019-04-21 11:10] LABS: BNP,B-Type NATRIURETIC PEPTIDE 172.6 pg/mL (0-100)
--- NOTE | 2019-04-21 12:57 | PCM.HP.STD ---
Problem List (1) Chronic obstructive pulmonary disease Status: Chronic Qualifiers: COPD type: unspecified COPD Qualified Code(s): J44.9 - Chronic obstructive pulmonary disease, unspecified (2) Essential (primary) hypertension Status: Chronic (3) Cardiomyopathy in diseases classified elsewhere Status: Chronic (4) Nonrheumatic tricuspid (valve) insufficiency Status: Chronic (5) Acute exacerbation of chronic obstructive pulmonary disease (COPD) Status: Chronic (6) Chronic back pain Status: Chronic Qualifiers: Back pain location: back pain in unspecified location Back pain laterality: unspecified Qualified Code(s): M54.9 - Dorsalgia, unspecified; G89.29 - Other chronic pain History of Present Illness Date of Admission: 04/21/19 Chief Complaint: Cough, wheezing, dyspnea, desaturation The patient is a 74 y/o F w/ PMHx: Anxiety/depression, chronic macrocytic anemia, chronic COPD, chronic back pain with debility with near bedbound status and debility, hypertension, hyperlipidemia, valvular heart disease, cardia myopathy unclear type who presents to the [facility] ED on 04/21/19 from SNF with history of approximate 4-week history of progressive [place] worsening dyspnea, wheezing, initially productive cough although has normalized per her report with worsening on day of ED presentation with EMS evaluation at facility with noted initial 70% on 2 L nasal cannula with severe wheezing with aerosol administration and improvement following prior to transition to the ED. 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 In the ED patient ministered normal saline, DuoNeb, Solu-Medrol. Past Medical History Past Medical History (Chronic Problems): Chronic Problems (Last Reviewed 12/03/18 @ 11:32 by Nahid Sotelo MD) Chronic obstructive pulmonary disease (Chronic) Acute exacerbation of chronic obstructive pulmonary disease (COPD) (Chronic) Chronic back pain (Chronic) Essential (primary) hypertension (Chronic) Cardiomyopathy in diseases classified elsewhere (Chronic) Nonrheumatic tricuspid (valve) insufficiency (Chronic) Palpitations (Chronic) Hyperlipidemia (Chronic) Medical History: Medical History (Last Reviewed 12/03/18 @ 11:32 by Nahid Sotelo MD) Essential (primary) hypertension (Chronic) I10 Cardiomyopathy in diseases classified elsewhere (Chronic) I43 Nonrheumatic tricuspid (valve) insufficiency (Chronic) I36.1 Palpitations (Chronic) R00.2 Hyperlipidemia (Chronic) E78.5 Arthritis M19.90 MRSA (methicillin resistant staph aureus) culture positive Z22.322 Shortness of breath R06.02 COPD (chronic obstructive pulmonary disease) J44.9 DDD (degenerative disc disease) HTN (hypertension) I10 Hemorrhoids K64.9 PVD (peripheral vascular disease) I73.9 Venous insufficiency of right leg I87.2 Cellulitis of right leg (Resolved) L03.115 Severe vomiting after antibiotic (Resolved) Ankle ulcer (Inactive) Chronic pain (Inactive) G89.29 Delayed wound healing (Inactive) T14.8 Edema, lower extremity (Inactive) R60.0 Foot drop, right (Inactive) M21.371 Gait instability (Inactive) R26.81 H/O open leg wound (Inactive) Z87.828 Malnutrition (Inactive) E46 Non-pressure chronic ulcer of right lower leg with fat layer exposed (Inactive) L97.912 Osteomyelitis of ankle, right, acute (Inactive) M86.171 Stage III pressure ulcer of ankle (Inactive) L89.503 Stage III pressure ulcer of right ankle (Inactive) L89.513 Venous ulcer of left lower extremity without varicose veins (Inactive) I87.2, L97.929 Allergies amoxicillin [From Augmentin] Adverse Reaction (Verified 04/21/19 10:55) Nausea/Vom/Diarrhea clavulanic acid [From Augmentin] Adverse Reaction (Verified 04/21/19 10:55) Nausea/Vom/Diarrhea nitrofurantoin macrocrystalline [From Macrodantin] Adverse Reaction (Verified 04/21/19 10:55) Vomiting sulfamethoxazole [From Bactrim] Adverse Reaction (Verified 04/21/19 10:55) Nausea/Vom/Diarrhea trimethoprim [From Bactrim] Adverse Reaction (Verified 04/21/19 10:55) Nausea/Vom/Diarrhea Home Medications: Ambulatory Orders Medication Instructions Recorded Gabapentin 200 mg PO TID 07/29/13 Cholecalciferol (Vitamin D3) 50,000 unit PO TU 10/04/15 [Vitamin D3] Methadone HCl 10 mg PO QHS 10/04/15 Sertraline HCl [Zoloft] 100 mg PO QHS 10/04/15 Metoprolol Tartrate [Lopressor 50 mg PO BID 06/10/17 (beta melissa)] oxycodone-acetaminophen 5 mg-325 1 tab PO Q6H PRN PRN tab 11/25/17 mg tablet pravastatin 40 mg tablet 40 mg PO QHS 01/17/18 hydrochlorothiazide 25 mg tablet 25 mg PO DAILY 12/03/18 Acetaminophen 650 mg PO Q6H PRN PRN 04/21/19 Albuterol Aerosols [Ventolin 2.5 mg INHALATION Q4H PRN PRN 04/21/19 Aerosols] Bisacodyl 10 mg ME DAILY PRN PRN 04/21/19 Calmicid 2 tab PO PRN PRN 04/21/19 Diclofen Sod/Kinesiology Tape 1 ea TP BID 04/21/19 [Diclo Gel 1%-Xrylix Sheet Kit] Docusate Sodium [Colace] 100 mg PO QHS 04/21/19 Guaifenesin/Dextromethorphan 1 ea PO BID 04/21/19 [Mucinex Dm ER 1,200-60 mg Tab] L.acidoph,Paracasei, B.lactis 1 ea PO BID 04/21/19 [Probiotic] Lisinopril [Prinivil] 10 mg PO DAILY 04/21/19 Lorazepam [Ativan] 0.25 mg PO TID PRN PRN 04/21/19 Magnesium Hydroxide [Milk Of 30 ml PO DAILY PRN PRN 04/21/19 Magnesia] Methadone HCl 15 mg PO DAILY 04/21/19 Multivitamin with Minerals 1 ea PO DAILY 04/21/19 [Multiple Vitamin] Na Phos,M-B/Na Phos,Di-Ba [Fleet 1 bottle ME DAILY PRN PRN 04/21/19 Enema] Nystatin Powder [Mycostatin Powder] 1 applic TOPICAL TID 04/21/19 Nystatin [Mycostatin] 1 applic TOPICAL TID 04/21/19 Ondansetron [Zofran Odt] 4 mg PO Q8H PRN PRN 04/21/19 Polyethylene Glycol 3350 [Miralax] 17 gm PO DAILY 04/21/19 Senna [Senokot] 1 tab PO DAILY 04/21/19 Senna [Senokot] 1 tab PO DAILY PRN PRN 04/21/19 Witch Jennifer [Preparation H] 1 ea TP Q6H PRN PRN 04/21/19 Surgical History: Surgical History (Last Reviewed 12/03/18 @ 11:32 by Nahid Sotelo MD) H/O shoulder surgery Z98.890 History of back surgery Z98.890 History of neck surgery Z98.890 History of hip replacement Z96.649 History of hysterectomy Z90.710 History of incisional hernia repair Z98.890, Z87.19 Hx of repair of rotator cuff Z98.890 Surgical History: total hip arthroplasty - Right, total knee arthroplasty - Right, - - Lumbar laminectomy Psychiatric History: Anxiety, Depression 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 Tobacco Use: Secondhand - History of secondhand tobacco use. Alcohol: None Drugs: None - *Family History Maternal Family History: Family History (Last Reviewed 12/03/18 @ 11:32 by Nahid Sotelo MD) Father Hypertension Mother Diabetes Hypertension Brother Diabetes Brother Cancer Sister Hypertension History Items: Diabetes, Heart Disease, Hypertension Paternal Family History: Family History (Last Reviewed 12/03/18 @ 11:32 by Nahid Sotelo MD) Father Hypertension Mother Diabetes Hypertension Brother Diabetes Brother Cancer Sister Hypertension History Items: Heart Disease, Hypertension Review of Systems Constitutional: Reports: Anorexia, Malaise, Weakness, Fatigue. Denies: Chills, Fever, Weight Change HEENT: Reports: Sore Throat. Denies: Head Aches, Sinus Congestion, Sinus Drainage Cardiovascular: Denies: Chest Pain, Palpitations Respiratory: Reports: Cough, Pleuritic Pain, Shortness of Breath, Shortness of breath at rest, Shortness of breath upon exertion, Sputum production, Wheezing Gastrointestinal: Denies: Abdominal Pain, Nausea, Vomiting Genitourinary: Denies: Dysuria Musculoskeletal: Reports: Back Pain, Joint Pain, Leg Pain. Denies: Joint Tenderness Skin: Denies: Rash, Wounds Neurological: Reports: Balance problems, Focal weakness, Numbness, Tingling Psychiatric: Reports: Anxiety, Depression. Denies: Homicidal Ideations, Suicidal Ideations Hematologic/ Lymphatic: Reports: Anemia. Denies: Easy Bruising, Easy Bleeding VTE Information - Inpt Only VTE Present on Admission: No VTE Mechan Device Prophylaxis: SCD's VTE Pharm Prophylaxis ordered?: Yes Subjective: Patient seated upright in the bed, improved appearance from initial presentation, oxygenation improved, prior had increased respiratory rate, accessory muscle usage and decreased saturations. Objective: Physical Examination: General: awake, alert, oriented x 3 and cooperative, seated upright in ED bed, occasional dry coughing, respiratory rate improved, notes improved since aerosol treatments. Skin: normal color, turgor, no icterus, cyanosis, chronic bilateral lower extremity venous stasis skin changes. HEENT: AT/NC, EOMI, PERRLA, dry MM, OP erythema, no exudates, no carotid bruits or JVD noted. Lungs: Severely diffusely diminished breath sounds, greater bases, mildly coarse, expiratory and inspiratory wheezing, improved from initial presentation, improved respiratory rate, lessened accessory muscle usage, oxygenation improved from initial acute hypoxic rest kale failure presentation. Heart: Regular rate and rhythm; no gallop, rub audible. Abdomen: soft, morbidly obese, NTTP, ND, normal BS, no HSM. Extremities: no cyanosis, clubbing, chronic back pain with lower extremity debility, near bedbound status, chronic venous stasis skin changes, bilateral lower extremity ankle to distal lundberg 1+ pitting edema. Neurological: patient awake, alert, oriented x 3; cognitive function intact; pupils equally reactive to light and accomodation; cranial nerves II-XII grossly normal, moving all 4 extremities although extremely debilitated chronically with near bedbound status with debility bilateral lower extremities, strength accordingly severely global decreased. Psychiatric: affect appears fatigued, no acute evidence of depressive or anxiety feelings. - Physical Exam Vital Signs Temp Pulse Resp BP Pulse Ox 97.8 F 61 11 L 129/93 H 99 04/21/19 12:28 04/21/19 12:28 04/21/19 12:28 04/21/19 12:28 04/21/19 12:28 Oxygen Flow Rate (L/min) 4 Oxygen Delivery Method Nasal Cannula Weight: 206 lb 5.643 oz Body Mass Index (BMI) 40.3 Laboratory Tests Past 24 Hrs 04/21/19 04/21/19 04/21/19 10:35 10:35 10:35 WBC 8.0 RBC 3.23 L Hgb 10.1 L Hct 32.2 L MCV 99.7 H MCH 31.3 MCHC 31.4 L RDW Std Deviation 51.6 H RDW Coeff of Zach 14.3 Plt Count 299 MPV 10.2 Immature Gran % (Auto) 0.400 Neut % (Auto) 58.2 Lymph % (Auto) 23.6 [place] % (Auto) 8.3 Eos % (Auto) 8.9 H Baso % (Auto) 0.6 Absolute Neuts (auto) 4.6 Absolute Lymphs (auto) 1.88 Nucleated RBC % 0 D-Dimer Quant (PE/DVT) 1.57 H* Sodium 139 Potassium 4.7 Chloride 107 Carbon Dioxide 30.0 Anion Gap 2 L BUN 85 H Creatinine 1.62 H Estim Creat Clear Calc 21.88 Est GFR (MDRD) Af Amer 40 L Est GFR (MDRD) Non-Af 33 L BUN/Creatinine Ratio 52.5 H Glucose 106 Calcium 9.1 Troponin I < 0.015 B-Natriuretic Peptide 04/21/19 10:35 WBC RBC Hgb Hct MCV MCH MCHC RDW Std Deviation RDW Coeff of Zach Plt Count MPV Immature Gran % (Auto) Neut % (Auto) Lymph % (Auto) [place] % (Auto) Eos % (Auto) Baso % (Auto) Absolute Neuts (auto) Absolute Lymphs (auto) Nucleated RBC % D-Dimer Quant (PE/DVT) Sodium Potassium Chloride Carbon Dioxide Anion Gap BUN Creatinine Estim Creat Clear Calc Est GFR (MDRD) Af Amer Est GFR (MDRD) Non-Af BUN/Creatinine Ratio Glucose Calcium Troponin I B-Natriuretic Peptide 172.6 H Assessment/Plan All Active Problems (Last Reviewed 12/03/18 @ 11:32 by Nahid Sotelo MD) Cellulitis (Resolved) Cellulitis of right leg (Resolved) DVT (deep venous thrombosis) (Resolved) Severe vomiting after antibiotic (Resolved) Warfarin-induced coagulopathy (Resolved) The patient is a 74 y/o F w/ PMHx: Anxiety/depression, chronic macrocytic anemia, chronic COPD, chronic back pain with debility with near bedbound status and debility, hypertension, hyperlipidemia, valvular heart disease, cardia myopathy unclear type who presents to the [facility] ED on 04/21/19 from SNF with history of approximate 4-week history of progressive [place] worsening dyspnea, wheezing, initially productive cough although has normalized per her report with worsening on day of ED presentation with EMS evaluation at facility with noted initial 70% on 2 L nasal cannula with severe wheezing with aerosol administration and improvement following prior to transition to the ED. 1. 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 In the ED patient ministered normal saline, DuoNeb, Solu-Medrol. EMS evaluation with initially 70% on 2 L nasal cannula with increased work of breathing, accessory muscle usage, improved with ED administrations. Will admit to MS sood given clinical improvement, maintain on oxygen with wean as tolerated to room air, continue ATC duonebs, PRN albuterol, IV methylprednisolone, HOB, IS parameters, defer antibiotics given afebrile, no W BC elevation or left shift noted, pending sputum culture, requested respiratory viral panel although may be associated with recent surge and external allergens. 2. Acute kidney injury: Secondary to #1, poor intake, nephrotoxic regimens. Admission BUN/Cr 85/1.62, prior baseline creatinine noted to be 0.8. Will hydrate, hold nephrotoxic medications and repeat chemistry in AM. If no improvement would plan FeNa and renal ultrasound assessment. 3. Chronic lumbar back pain with debility: Patient with near bedbound status, unable to walk, will continue home methadone and as needed narcotic regimen, position changes, fall precautions, PT, OT, case management evaluations. 4. Chronic macrocytic anemia: Admission hemoglobin 10.1, baseline appears 11, MCV 99.7, will obtain fe panel, ferritin, vitamin B12 and folic acid. 5. Hypertension: We will hold nephrotoxic medicine, continue metoprolol, PRN IV hydralazine. 6. Hyperlipidemia: Continue home statin regimen. 7. Morbid Obesity: Weight loss and lifestyle changes encouraged, nutrition consulted. 8. Anxiety and depression: We will continue home sertraline and Ativan regimen. 9. DVT prophylaxis: SCDs, lovenox. 10. CODE status: Discussed CODE status at length including difference between FULL code, DNR-CCA and DNR-CC status. Following discussions about the differences in these status, requested continuation of full code status. Advanced Care Planning Face to Face Time: 16 minutes. Code Visit Inpatient E&M: 29213 Init Hosp L3 Procedures: 99033 Advncd Care Plan 30 Min
--- NOTE | 2019-04-21 13:12 | NURSING ---
302 ACUTE COPD EXAC WHITE
--- NOTE | 2019-04-21 13:14 | ED.DCSUM_ITS ---
- ER Visit Summary Date of Service: 04/21/19 Chief Complaint: [Shortness of breath] History of Present Illness: The patient is a 74 F [since with progressive shortness of breath over the last 4 weeks. Today at the care home she was noted to be hypoxic and was placed on nasal cannula O2 and continued to be hypoxic. Patient had a cough that nonproductive. She denies any fever. Denies chest pain. On EMS arrival her pulse ox was in the 70s. Patient was given some aerosols and her O2 sat did improve on nasal cannula into the 90s. Patient denies any recent travel or surgery. Patient does have prior history of hypertension high cholesterol, palpitations, and history of DVT.] Physical Examination: [HEENT-PERRLA, EOMI. Cranial nerves II through XII grossly intact. TMs clear. Mucous membranes moist. No adenopathy. Cardiovascular-regular rate and rhythm without murmur or ectopy Lungs-minutes breath sounds bilaterally with expiratory wheezes throughout. Patient has rhonchi throughout. Mild tachypnea. No accessory muscle use or retractions. Abdomen-normoactive bowel sounds, soft, nontender, no rebound or rigidity, no peritoneal signs. Extremities-intact ?4, normal range of motion, normal pulses, atraumatic] Test Results: [EKG obtained arrival shows sinus rhythm with a ventricular rate 66 bpm with frequent PVCs. CBC with differential showing of 8.0, hemoglobin 10, hematocrit 32, placed 299. Chemistries unremarkable. BUN was 85 and creatinine 1.62. Troponin less than 0.015. BNP was 172 and d-dimer was elevated 1.52. CTA of the chest was negative for PE. Chest x-ray showed nothing acute.] Emergency Department Course and Treatment: [She was given a DuoNeb aerosol and given Solu-Medrol 125 mg IV] Treatment Plan: [Admit for further management of her dyspnea and hypoxemia] Disposition: [Admit] Impression: [Dyspnea Hypoxemia Reactive airway disease Acute kidney injury] This note was generated with [employer] dictation software. It may contain incorrect words, spelling, and punctuation that were not noted in review of the chart prior to signing ED Disposition - Plan for ED Patient: Referrals: Nahun Casillas Chi, MD [Primary Care Provider] -
[2019-04-21 16:03] LABS: Vitamin B12 711 pg/mL (211-911)
[2019-04-21 17:22] LABS: Ferritin 94 ng/mL (8-252); Iron 40 ug/dL (50-170); Iron Binding Capacity,Total 328 ug/dL (250-450); PERCENT IRON SATURATION 12.2 % (15.0-55.0)
[2019-04-21] MEDS: Nystatin Powder 15gm Bottle 1 APPLIC TOPICAL ×2 (17:44→22:06)
[2019-04-21] MEDS: Gabapentin 100 MG Capsule 200 MG PO ×2 (17:45→22:06)
[2019-04-21] MEDS: 0.9% Normal Saline 1,000 ML 125 ML IV (17:45)
[2019-04-21] MEDS: LORazepam 0.5 MG Tablet 0.25 MG PO (19:50)
[2019-04-21] MEDS: Pravastatin 40 MG Tablet PO (22:06)
[2019-04-21] MEDS: Sertraline 50 MG Tablet 100 MG PO (22:06)
[2019-04-21] MEDS: Docusate Sodium 100 MG Capsule PO (22:06)
[2019-04-21] MEDS: guaiFENesin 1,200 MG Tablet 1200 MG PO (22:06)
[2019-04-21] MEDS: Methadone 10 MG Tablet PO (22:06)
[2019-04-21] MEDS: Metoprolol Tartrate 50 MG Tablet PO (22:07)
[2019-04-22] VITALS (18 sets, daily range): BP systolic 164–189; BP diastolic 66–91; PULSE 67–108; RESP 12–22; TEMP 36.8–37.3; O2SAT 94–98
[2019-04-22] MEDS: 0.9% Normal Saline 1,000 ML 125 ML IV ×3 (00:10→16:16)
[2019-04-22] MEDS: Gabapentin 100 MG Capsule 200 MG PO ×3 (05:37→21:50)
[2019-04-22] MEDS: Nystatin Powder 15gm Bottle 1 APPLIC TOPICAL ×3 (05:37→21:50)
[2019-04-22 06:18] LABS: Absolute Lymphocyte Count 1.23 X10^3/uL (0.83-4.51); Absolute Neutrophil Count 4.4 X10^3/uL (2.0-7.7); Hematocrit 27.6 % (37-47); Hemoglobin 8.5 g/dL (12.0-15.0); Lymphocyte # 1.23 X10^3/ul (4.0); Lymphocyte % 21.4 % (19-41); Mean Corp Hgb Conc 30.8 g/dL (32-36); Mean Corpuscular Hgb 30.2 pg (27.0-32.0); Mean Corpuscular Volume 98.2 fL (81-99); Mean Platelet Vol. 10.3 fl (6.2-12.0); Monocyte# 0.13 X10^3/uL; Monocyte% 2.3 % (0-10); NRBC Flagged by Analyzer 0 % (0-5); Neutrophil # 4.35 X10^3/uL (2.7-7.7); Neutrophil % 75.4 % (47-70); POSITIVE MORPHOLOGY YES; Platelet Count 287 K/mm3 (150-450); RBC Distribution Width CV 14.3 % (11.6-14.6); Red Blood Count 2.81 M/mm3 (4.2-5.4); White Blood Count 5.8 K/mm3 (4.4-11.0)
[2019-04-22 06:22] LABS: Differential Indicated SCAN CRITERIA MET
[2019-04-22 06:43] LABS: ALB/GLOB Ratio 0.7 RATIO (0.9-2.4); AST(SGOT) 24 U/L (15-37); Alanine Aminotransfer ALT/SGPT 22 U/L (13-56); Albumin, Serum 2.8 g/dL (3.2-5.0); Alkaline Phosphatase 83 U/L (45-117); Anion Gap 7 (5-15); BUN 65 mg/dL (7-18); BUN/Creat Ratio 60.7 RATIO (10-20); Calcium,Total 8.7 mg/dL (8.5-10.1); Chloride 111 mmol/L (98-107); Creatinine, Serum 1.07 mg/dL (0.55-1.02); EST Glomerular Filtration Rate 53 mL/min (>60); Est Glom Filt Rate - Afr Amer 65 mL/min (>60); Estimated Creatinine Clearance 33.13 ml/min; Globulin 4.1 g/dL (2.2-4.2); Glucose 137 mg/dL (74-106); Potassium 4.7 mmol/L (3.5-5.1); Protein, Total 6.9 g/dL (6.4-8.2); Sodium Level 142 mmol/L (136-145)
[2019-04-22 06:47] LABS: Differential Comment SCANNED
[2019-04-22] MEDS: Ipratropium/Albuterol Sulfate 3 ML AMPUL.NEB INHALATION ×4 (07:14→18:43)
--- NOTE | 2019-04-22 09:45 | CASEMGMT ---
Social Work Note Pt is listed as being from [facility]. RAMIRO met with pt and pt's daughter Naina present in room. Pt gave this worker permission to speak to her in front of her guest. Pt and Naina confirm that pt is from [facility] and the plan is for pt to return once medically cleared. 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 RAMIRO faxed updated clinicals to [facility]. Plan: Return to [facility] once medically cleared Shauna Galvin ECHO VASC TECH, PLANT AND EQUIPMENT WORKER
[2019-04-22] MEDS: Metoprolol Tartrate 50 MG Tablet PO ×2 (09:55→21:49)
[2019-04-22] MEDS: Senna Tablet 1 TABLET PO (09:56)
[2019-04-22] MEDS: guaiFENesin 1,200 MG Tablet 1200 MG PO ×2 (09:56→21:49)
--- NOTE | 2019-04-22 14:13 | PN_ITS ---
Subjective: Feels little bit better than yesterday, no issues overnight Vitals/I&O's: Vital Signs Temp Pulse Resp BP Pulse Ox 98.9 F 73 22 H 164/75 H 95 04/22/19 08:15 04/22/19 11:11 04/22/19 11:11 04/22/19 08:15 04/22/19 08:15 Oxygen Flow Rate (L/min) 2 Oxygen Delivery Method Nasal Cannula Weight: 196 lb 6.91 oz Body Mass Index (BMI) 38.3 Intake and Output for Last 24 Hours 04/20/19 04/21/19 04/22/19 23:59 23:59 23:59 Intake Total 1388.50 / 1388.50 1320.83 / 1320.83 Balance 1388.50 / 1388.50 1320.83 / 1320.83 General: Alert, Oriented x3, Cooperative, No apparent distress HEENT: Atraumatic, PERRLA, EOMI, Normocephalic Oral: Moist Mucosa Neck: Supple, No JVD Lungs: No rhonchi, No rales, Diminished, Wheezes Cardiovascular: Regular rate, Regular Rhythm, Normal S1, Normal S2, No murmurs Abdomen: Soft, Non Tender, Non-Distended, No Hepato-splenomegaly Extremities: Capillary Refill Less than 3 Seconds, Edema Skin: No rashes, No breakdown Neurological: Neuro grossly intact, Sensory exam intact to light touch and pain Psych/Mental Status: Normal Affect, Appropriate Microbiology Past 72 Hours 04/22/19 08:45 Sputum, Expectorated/Coughed Gram Stain - Final 04/21/19 18:55 Mucosa - Nasopharyngeal Respiratory Panel (PCR) - Final Laboratory Results 04/21/19 10:35: Vitamin B12 711 04/21/19 10:35: Iron 40 L, TIBC 328, Iron Saturation 12.2 L, Ferritin 94, Folate 19.10 04/22/19 05:34: WBC 5.8, RBC 2.81 L, Hgb 8.5 L, Hct 27.6 L, MCV 98.2, MCH 30.2, MCHC 30.8 L, RDW Std Deviation 51.0 H, RDW Coeff of Zach 14.3, Plt Count 287, MPV 10.3, Immature Gran % (Auto) 0.900, Neut % (Auto) 75.4 H, Lymph % (Auto) 21.4, [place] % (Auto) 2.3, Eos % (Auto) 0.0, Baso % (Auto) 0.0, Absolute Neuts (auto) 4.4, Absolute Lymphs (auto) 1.23, Nucleated RBC % 0, Differential Comment SCANNED 04/22/19 05:34: Sodium 142, Potassium 4.7, Chloride 111 H, Carbon Dioxide 24.0, Anion Gap 7, BUN 65 H, Creatinine 1.07 H, Estim Creat Clear Calc 33.13, Est GFR (MDRD) Af Amer 65, Est GFR (MDRD) Non-Af 53 L, BUN/Creatinine Ratio 60.7 H, Glucose 137 H, Calcium 8.7, Total Bilirubin 0.30, AST 24, ALT 22, Alkaline Phosphatase 83, Total Protein 6.9, Albumin 2.8 L, Globulin 4.1, Albumin/Globulin Ratio 0.7 L Current Medications Albuterol Sulfate (Ventolin Aerosols) 2.5 mg INHALATION Q2H PRN PRN PRN Reason: SHORTNESS OF BREATH Albuterol/Ipratropium (Duoneb) 3 ml INHALATION Q4HWA.RT [facility] Last Admin: 04/22/19 10:57 Dose: 3 ml Documented by: Docusate Sodium (Colace) 100 mg PO QHS [facility] Last Admin: 04/21/19 22:06 Dose: 100 mg Documented by: Gabapentin (Neurontin) 200 mg PO TID [facility] Last Admin: 04/22/19 05:37 Dose: 200 mg Documented by: Guaifenesin (Mucinex) 1,200 mg PO BID [facility] Last Admin: 04/22/19 09:56 Dose: 1,200 mg Documented by: Sodium Chloride () 1,000 mls @ 125 mls/hr IV .Q8H [facility] Last Admin: 04/22/19 08:31 Dose: 125 mls/hr Documented by: Lorazepam (Ativan) 0.25 mg PO TID PRN PRN PRN Reason: ANXIETY Last Admin: 04/21/19 19:50 Dose: 0.25 mg Documented by: Methadone HCl () 15 mg PO DAILY [facility] Last Admin: 04/22/19 09:55 Dose: 15 mg Documented by: Methadone HCl () 10 mg PO QHS [facility] Last Admin: 04/21/19 22:06 Dose: 10 mg Documented by: Methylprednisolone (Solu-Medrol) 40 mg IV Q8 [facility] Last Admin: 04/22/19 05:37 Dose: 40 mg Documented by: Metoprolol Tartrate (Lopressor (Beta Greg)) 50 mg PO BID [facility] Last Admin: 04/22/19 09:55 Dose: 50 mg Documented by: Nutritional Formula (Lactose Free) (Ensure Enlive) 120 ml PO TID [facility] Last Admin: 04/22/19 05:33 Dose: Not Given Documented by: Nystatin (Mycostatin Powder) 1 applic TOPICAL TID [facility]; Protocol Last Admin: 04/22/19 05:37 Dose: 1 applic Documented by: Oxycodone HCl (Oxyir) 1 mg PO Q6H PRN PRN PRN Reason: PAIN Polyethylene Glycol (Miralax) 17 gm PO DAILY [facility] Last Admin: 04/22/19 10:09 Dose: Not Given Documented by: Pravastatin Sodium (Pravachol) 40 mg PO QHS [facility] Last Admin: 04/21/19 22:06 Dose: 40 mg Documented by: Senna (Senokot) 1 tablet PO DAILY [facility] Last Admin: 04/22/19 09:56 Dose: 1 tablet Documented by: Sertraline HCl (Zoloft) 100 mg PO QHS [facility] Last Admin: 04/21/19 22:06 Dose: 100 mg Documented by: Sodium Chloride () 10 - 40 ml IV UD PRN PRN Reason: SALINE FLUSH Medical Necessity - Tobacco Use Smoking Status: Never smoker Tobacco Use: Secondhand - History of secondhand tobacco use. Assessment/Plan All Active Problems (Last Reviewed 12/03/18 @ 11:32 by Nahid Sotelo MD) Cellulitis (Resolved) Cellulitis of right leg (Resolved) DVT (deep venous thrombosis) (Resolved) Severe vomiting after antibiotic (Resolved) Warfarin-induced coagulopathy (Resolved) 1. Acute hypoxic respiratory failure secondary to acute COPD exacerbation -Sputum culture pending with gram-positive rods -She is afebrile with ptosis -Continue with inhalers and Solu-Medrol -CT of the chest was negative for PE secondary to elevated d-dimer 2. COLIN resolved 3. HTN/HLD/morbid obesity -Pressures been stable, continue with home medication -Continue with statin -Discussed lifestyle modifications including diet and exercise for weight loss 4. Anxiety/depression -Stable -Continue with home medications 5. Chronic macrocytic anemia -Folic acid and B12 are normal -Iron and iron saturation is low with a normal ferritin and iron binding capacity -We will continue to monitor 6. Chronic pain -Stable -Continue with home pain regimen DVT: SCDs Code Visit Inpatient E&M: 96109 Subs Hosp L2
[2019-04-22] MEDS: LORazepam 0.5 MG Tablet 0.25 MG PO (14:41)
--- NOTE | 2019-04-22 15:28 | CHAPLAIN ---
Type of Pastoral Visit _x__ Initial Visit ___ Follow-up Visit ___ On-call Visit ___ General Patient Visit ___ Spiritual Assessment ___ Family Conference ___ Bereavement ___ Rapid Response ___ Code Blue ___ Other (describe below) Pastoral Care Referral From _x__ Patient ___ Family ___ Nurse ___ Physician ___ Public Health Veterinarian ___ Pocket Closer ___ Other (describe below) Sacrament/Intervention _x__ Active listening ___ Anointing ___ Restoration ___ Bereavement ___ Communion _x__ Cindy exploration ___ _x__ Life review _x__ Prayer ___ Reconciliation ___ Sacrament of Sick _x__ Supportive presence ___ Wedding ___ Other (describe below) Pastoral Comments patient expresses concern about spiritual matters
[2019-04-22] MEDS: Sertraline 50 MG Tablet 100 MG PO (21:49)
[2019-04-22] MEDS: Pravastatin 40 MG Tablet PO (21:49)
[2019-04-22] MEDS: Docusate Sodium 100 MG Capsule PO (21:49)
[2019-04-22] MEDS: Methadone 10 MG Tablet PO (21:49)
[2019-04-22] MEDS: oxyCODONE 5 MG Tablet 1 MG PO (21:54)
[2019-04-23] VITALS (7 sets, daily range): BP systolic 145–147; BP diastolic 66–74; PULSE 59–84; RESP 12–18; TEMP 36.4–36.9; O2SAT 93–97
[2019-04-23] MEDS: 0.9% Normal Saline 1,000 ML 125 ML IV ×2 (00:14→09:34)
[2019-04-23] MEDS: Nystatin Powder 15gm Bottle 1 APPLIC TOPICAL (05:27)
[2019-04-23] MEDS: Gabapentin 100 MG Capsule 200 MG PO (05:28)
[2019-04-23 05:50] LABS: Absolute Lymphocyte Count 1.06 X10^3/uL (0.83-4.51); Basophil# 0.01 X10^3/uL; Basophil% 0.2 % (0-1); Hematocrit 27.6 % (37-47); Hemoglobin 8.6 g/dL (12.0-15.0); Lymphocyte # 1.06 X10^3/ul (4.0); Lymphocyte % 16.3 % (19-41); Mean Corp Hgb Conc 31.2 g/dL (32-36); Mean Corpuscular Volume 99.6 fL (81-99); Mean Platelet Vol. 10.1 fl (6.2-12.0); Monocyte# 0.38 X10^3/uL; Monocyte% 5.8 % (0-10); NRBC Flagged by Analyzer 0 % (0-5); Neutrophil # 4.99 X10^3/uL (2.7-7.7); Neutrophil % 76.6 % (47-70); POSITIVE MORPHOLOGY YES; Platelet Count 276 K/mm3 (150-450); RBC Distribution Width CV 14.3 % (11.6-14.6); RBC Distribution Width SD 52.7 fl (35.1-43.9); Red Blood Count 2.77 M/mm3 (4.2-5.4); White Blood Count 6.5 K/mm3 (4.4-11.0)
[2019-04-23 06:12] LABS: Anion Gap 8 (5-15); BUN 49 mg/dL (7-18); BUN/Creat Ratio 51.8 RATIO (10-20); Chloride 114 mmol/L (98-107); Creatinine, Serum 0.95 mg/dL (0.55-1.02); EST Glomerular Filtration Rate 61 mL/min (>60); Est Glom Filt Rate - Afr Amer 74 mL/min (>60); Estimated Creatinine Clearance 37.32 ml/min; Glucose 106 mg/dL (74-106); Potassium 4.5 mmol/L (3.5-5.1); Sodium Level 145 mmol/L (136-145)
[2019-04-23 06:23] LABS: Differential Indicated SCAN CRITERIA MET
[2019-04-23 06:29] LABS: Differential Comment SCANNED
[2019-04-23] MEDS: Ipratropium/Albuterol Sulfate 3 ML AMPUL.NEB INHALATION ×2 (06:46→11:25)
--- NOTE | 2019-04-23 08:15 | TREXTCAR_ITS ---
- Diet 04/22/19 11:18 Diet: Regular Diet Food consistency:: Mechanical Soft/Ground Is pt able to select menu?: No - Routine Orders/Code Status O2 Liters per Minute: 1 O2 Frequency: Continuous Code Status: Full Code - Therapies Physical Therapy: Eval and Treat Occupational Therapy: Eval and Treat - Allergies/Procedures Done in Hospital Allergies/Adverse Reactions: Allergies amoxicillin [From Augmentin] Adverse Reaction (Verified 04/21/19 10:55) Nausea/Vom/Diarrhea clavulanic acid [From Augmentin] Adverse Reaction (Verified 04/21/19 10:55) Nausea/Vom/Diarrhea nitrofurantoin macrocrystalline [From Macrodantin] Adverse Reaction (Verified 04/21/19 10:55) Vomiting sulfamethoxazole [From Bactrim] Adverse Reaction (Verified 04/21/19 10:55) Nausea/Vom/Diarrhea trimethoprim [From Bactrim] Adverse Reaction (Verified 04/21/19 10:55) Nausea/Vom/Diarrhea - Type of Care/Length of Stay Estimated LOS: Convalescent Care Less Than 30 days Type of Care Needed: Skilled Rehab Potential: Good Prognosis: Good - Additional Orders/Day of Discharge Day of Discharge: 04/23/19 - Dietary and Speech Recommendations Dietitian Recommendations/Changes: Recommend regular, non select diet. 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 - Follow Up Care Primary Care Physician: Nahun Casillas Chi, MD [Primary Care Provider] - Please follow up with your Primary Care Physician in: 3-5 days
[2019-04-23] MEDS: guaiFENesin 1,200 MG Tablet 1200 MG PO (09:57)
[2019-04-23] MEDS: Lisinopril 10 MG Tablet PO (09:57)
[2019-04-23] MEDS: Metoprolol Tartrate 50 MG Tablet PO (09:57)
--- NOTE | 2019-04-23 10:23 | CASEMGMT ---
General POA and medical POA forms in paper chart, LW not in chart but the LW provision in POA document is initialed. Naina Willis is named as POA in both documents. RUBEN Mckeon
--- NOTE | 2019-04-23 10:34 | CASEMGMT ---
Addendum entered by Shauna Galvin 04/23/19 15:16: RAMIRO placed a call to Yanely at [facility] and pointed out that pt will need to follow up with Pulmonology and will need dental consult as pt is having difficulty chewing. Yanely states she will relay message to RN. Original Note: Social Work Note Pt is discharging back to [facility]. RAMIRO faxed completed discharge paperwork to [facility] including transfer to extended care facility, signed medication list, and any scripts. Original in SNF folder and copy on pt's chart. SW arranged transportation via cot through [facility] for 1:00pm as that is the earliest they could transport pt. Transportation form completed and placed on SNF folder and copy on pt's chart. RAMIRO updated RN, Pt and placed a call to pt's daughter Naina to update on transportation time. RAMIRO placed a call to Yanely at [facility] and left her a message informing her of transportation time. RAMIRO completed Palliative Care Screening tool and faxed copy to [facility]. RAMIRO informed Yanely at [facility] to follow up with pt and pt's family regarding Palliative Care at SNF. Plan: Discharge back to [facility] today extermination supervisor with [facility] transporting via cot at 1:00pm Shauna PAL, COMPLIANCE REVIEW OFFICER
[2019-04-23] MEDS: hydroCHLOROthiazide 25 MG Tablet PO (11:55)
--- NOTE | 2019-04-23 12:46 | PCM.DC.SUM ---
Discharge Date and Diagnosis Date of Admission: 04/21/19 Date of Discharge: 04/23/19 - Secondary Discharge Diagnosis Chronic Problems (Last Reviewed 12/03/18 @ 11:32 by Nahid Sotelo MD) Chronic obstructive pulmonary disease (Chronic) Acute exacerbation of chronic obstructive pulmonary disease (COPD) (Chronic) Chronic back pain (Chronic) Essential (primary) hypertension (Chronic) Cardiomyopathy in diseases classified elsewhere (Chronic) Nonrheumatic tricuspid (valve) insufficiency (Chronic) Palpitations (Chronic) Hyperlipidemia (Chronic) Hospital Course and Treatment Imaging Results: CXR: IMPRESSION: No acute cardiopulmonary findings Atelectasis/scarring Large hiatal hernia CTA Chest: IMPRESSION: No evidence of central pulmonary embolism. Assessment of branches distal to the second order branches is limited due to suboptimal contrast. Chronic changes along T3-4 level at the disc space, and this may represent sequelae of significant degenerative change, but it is also essential to the exclude possible discitis. Moderate hiatal hernia. Mild dependent atelectasis in the upper lobes bilaterally and also in the medial aspect of the bilateral lower lobes. No significant pleural effusion. Consults: None Operations: None Procedures: None Summary of Care Provided: Per HPI: The patient is a 74 y/o F w/ PMHx: Anxiety/depression, chronic macrocytic anemia, chronic COPD, chronic back pain with debility with near bedbound status and debility, hypertension, hyperlipidemia, valvular heart disease, cardia myopathy unclear type who presents to the [facility] ED on 04/21/19 from SNF with history of approximate 4-week history of progressive [place] worsening dyspnea, wheezing, initially productive cough although has normalized per her report with worsening on day of ED presentation with EMS evaluation at facility with noted initial 70% on 2 L nasal cannula with severe wheezing with aerosol administration and improvement following prior to transition to the ED. 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 In the ED patient ministered normal saline, DuoNeb, Solu-Medrol. Hospital Course: 1. Acute hypoxic respiratory insufficiency secondary to acute COPD exacerbation -Sputum culture pending with gram-positive rods, will follow-up and if necessary can start an abx -She is afebrile without a leukocytosis -Continue with inhalers and will transition to prednisone for 7 days, she improved faster than anticipated and was decreased to 1L NC requirement on day of discharge -CT of the chest was negative for PE secondary to elevated d-dimer - F/u with pulmonology as an outpatient 2. COLIN resolved 3. HTN/HLD/morbid obesity -Pressures been stable, continue with home medications -Continue with statin -Discussed lifestyle modifications including diet and exercise for weight loss 4. Anxiety/depression -Stable -Continue with home medications 5. Chronic macrocytic anemia -Folic acid and B12 are normal -Iron and iron saturation is low with a normal ferritin and iron binding capacity -We will continue to monitor 6. Chronic pain -Stable -Continue with home pain regimen Objective: General: Alert, Oriented x3, Cooperative, No apparent distress HEENT: Atraumatic, PERRLA, EOMI, Normocephalic Oral: Moist Mucosa Neck: Supple, No JVD Lungs: No rhonchi, No rales, Diminished, Wheezes Cardiovascular: Regular rate, Regular Rhythm, Normal S1, Normal S2, No murmurs Abdomen: Soft, Non Tender, Non-Distended, No Hepato-splenomegaly Extremities: Capillary Refill Less than 3 Seconds, Edema Skin: No rashes, No breakdown Neurological: Neuro grossly intact, Sensory exam intact to light touch and pain Psych/Mental Status: Normal Affect, Appropriate - Physical Exam Vital Signs Temp Pulse Resp BP Pulse Ox 97.6 F L 68 12 145/74 H 95 04/23/19 05:30 04/23/19 11:26 04/23/19 11:26 04/23/19 05:30 04/23/19 06:48 Oxygen Flow Rate (L/min) 1 Oxygen Delivery Method Nasal Cannula Weight: 196 lb 6.91 oz Body Mass Index (BMI) 38.3 Intake and Output for Last 24 Hours 04/21/19 04/22/19 04/23/19 23:59 23:59 23:59 Intake Total 1388.50 / 1388.50 5049.58 / 6016.25 3936.25 / 3936.25 Output Total 3 / 3 Balance 1388.50 / 1388.50 5046.58 / 6013.25 3936.25 / 3936.25 Microbiology Past 72 Hours 04/21/19 10:55 Blood Culture - Preliminary Blood Culture (Wb) - Anticubital Left No growth in 48 hours. 04/21/19 10:50 Blood Culture - Preliminary Blood Culture (Wb) - Anticubital Right No growth in 48 hours. 04/22/19 08:45 Gram Stain - Final Sputum, Expectorated/Coughed 04/21/19 18:55 Respiratory Panel (PCR) - Final Mucosa - Nasopharyngeal Laboratory Tests Past 24 Hrs 04/23/19 04/23/19 05:04 05:04 WBC 6.5 RBC 2.77 L Hgb 8.6 L Hct 27.6 L MCV 99.6 H MCH 31.0 MCHC 31.2 L RDW Std Deviation 52.7 H RDW Coeff of Zach 14.3 Plt Count 276 MPV 10.1 Immature Gran % (Auto) 1.100 H Neut % (Auto) 76.6 H Lymph % (Auto) 16.3 L [place] % (Auto) 5.8 Eos % (Auto) 0.0 Baso % (Auto) 0.2 Absolute Neuts (auto) 5.0 Absolute Lymphs (auto) 1.06 Nucleated RBC % 0 Differential Comment SCANNED Sodium 145 Potassium 4.5 Chloride 114 H Carbon Dioxide 23.0 Anion Gap 8 BUN 49 H Creatinine 0.95 Estim Creat Clear Calc 37.32 Est GFR (MDRD) Af Amer 74 Est GFR (MDRD) Non-Af 61 BUN/Creatinine Ratio 51.8 H Glucose 106 Calcium 9.0 Home Medications: Medications to take at Discharge Methadone HCl 10 mg PO QHS 10/04/15 Sertraline HCl [Zoloft] 100 mg PO QHS 10/04/15 Metoprolol Tartrate [Lopressor (beta melissa)] 50 mg PO BID 06/10/17 oxycodone-acetaminophen 5 mg-325 mg tablet 1 tab PO Q6H PRN PRN tab 11/25/17 pravastatin 40 mg tablet 40 mg PO QHS 01/17/18 hydrochlorothiazide 25 mg tablet 25 mg PO DAILY 12/03/18 Albuterol Aerosols [Ventolin Aerosols] 2.5 mg INHALATION Q4H PRN PRN 04/21/19 Diclofenac Sodium [Voltaren] 2 gm TP BID 04/21/19 Docusate Sodium [Colace] 100 mg PO QHS 04/21/19 Ergocalciferol (Vitamin D2) [Vitamin D2] 50,000 unit PO UD 04/21/19 Gabapentin [Neurontin] 200 mg PO TIDCM 04/21/19 Guaifenesin/Dextromethorphan [Mucinex Dm ER 1,200-60 mg Tab] 1 ea PO BID 04/21/19 L.acidoph,Paracasei, B.lactis [Probiotic] 1 ea PO BID 04/21/19 Lisinopril [Prinivil] 10 mg PO DAILY 04/21/19 Lorazepam [Ativan] 0.25 mg PO TID PRN PRN 04/21/19 Methadone HCl 10 mg PO DAILY@1200 04/21/19 Methadone HCl 15 mg PO DAILY@0900 04/21/19 Multivitamin with Minerals [Multiple Vitamin] 1 ea PO DAILY 04/21/19 Nut Tx, Lact-Reduced, Iron [Boost Vhc] 237 ml PO QHS 04/21/19 Polyethylene Glycol 3350 [Miralax] 17 gm PO DAILY 04/21/19 Senna [Senokot] 1 tab PO DAILY 04/21/19 Prednisone [Deltasone] 40 mg PO DAILY #14 tab 04/23/19 Following Prescrptions Were Given to Patient: Prednisone [Deltasone] 40 mg PO DAILY #14 tab Primary Care Physician: Nahun Casillas Chi, MD [Primary Care Provider] - Please follow up with your Primary Care Physician in: 3-5 days Please Follow Up With: Pulmonology When: 1-2 weeks Disposition: Custodial facility Minutes spent on discharge:: 35 Patient Condition:: Stable Medical Necessity - Tobacco Use Smoking Status: Never smoker Tobacco Use: Secondhand - History of secondhand tobacco use. Meaningful Use Info Meaningful Use Diagnoses (Choose all that apply): None applicable Code Visit Inpatient E&M: 62848 Disch Hosp
== END 2019-04-23 14:15 | disposition skilled nursing facility (03) | DRG 191 ==
LOC: ED 10:56 → MS3 13:19
PROVIDERS: Admitting Provider Family Medicine; Emergency Provider Emergency Medicine; Family Provider Family Medicine; PCP Family Medicine Geriatric Medicine; Referring Provider Family Medicine; Visit Provider Family Medicine
DX: J44.1 Chronic obstructive pulmonary disease with (acute) exacerbation (principal); N17.9 Acute kidney failure, unspecified; I42.9 Cardiomyopathy, unspecified; I10 Essential (primary) hypertension; E78.5 Hyperlipidemia, unspecified; G89.29 Other chronic pain; M54.5 Low back pain; D53.9 Nutritional anemia, unspecified; I36.1 Nonrheumatic tricuspid (valve) insufficiency; Z77.22 Contact with and (suspected) exposure to environmental tobacco smoke (acute) (chronic); E66.01 Morbid (severe) obesity due to excess calories; R06.89 Other abnormalities of breathing; R09.02 Hypoxemia; F32.9 Major depressive disorder, single episode, unspecified; F41.9 Anxiety disorder, unspecified; Z68.38 Body mass index [BMI] 38.0-38.9, adult
CPT/HCPCS: 36415; 71045; 71275; 80048; 80053; 82607; 82728; 82746; 83540; 83550; 83880; 84484; 85025; 85379; 87040; 87070; 87205; 87633; 93005; 94640; 94667; 94668; 97163; 97166; 97802; 99285; J7030; Q9967

== ENCOUNTER → 2019-05-26 18:15 | Outpatient (CLI) | payer MEDICARE, OTHER, SELFPAY ==
[2019-05-26 15:37] VITALS: BMI 38.3
== END ==
PROVIDERS: Family Provider Family Medicine; PCP Family Medicine Geriatric Medicine; Referring Provider Nurse Practitioner Women's Health; Visit Provider Nurse Practitioner Women's Health
DX: R10.2 Pelvic and perineal pain (principal)
CPT/HCPCS: 87077; 87086; 87088; 87186

== ENCOUNTER 2019-06-01 12:32 | Day surgery (SDC) | payer MEDICARE, OTHER, SELFPAY ==
[2019-04-21 14:18] VITALS: BMI 38.3
[2019-05-26 15:37] VITALS: BMI 38.3
--- NOTE | 2019-05-28 07:49 | HP.PCM_ITS ---
History and Physical Date of Admission: 06/01/19 HISTORY AND PHYSICAL ? Patricia Damico 1945 ? REFERRING PHYSICIAN: ??Nahun Casillas Chi, MD ? CHIEF COMPLAINT: ??New Patient ? HPI: The patient is a 74 year old female referred for endoscopy.??Patient with limited mobility, residing at [facility] currently.??Patricia notes chronic anemia, fatigue and recently states aides at the [facility] noted some blood in her stool.??She has noted some looser stools than usual and urgency and incontinence of feces.?Patient denies abdominal pain. ?NOTES a strong family history of colon cancer-states her father and at least one brother had colon cancer. ? The patient notes?some reflux and coughing up phlegm. ?She was recently evaluated in the ED at [facility] and treated for a COPD exacerbation, currently on oxygen. ?She denies any history of tobacco use. ? Patricia?has?undergone prior endoscopy?10+ years ago, unsure of findings. ? Patient denies problems with sedation in the past. ? PAST?MEDICAL?HISTORY PAST MEDICAL HISTORY Diagnosis Date ? Dysthymic disorder ? ? Depression (non-psychotic) ? Obstructive sleep apnea ? ? Unspecified essential hypertension ? ? Essential hypertension ? ? PAST?SURGICAL?HISTORY PAST SURGICAL HISTORY Procedure Laterality Date ? LAMINECTOMY,CERVICAL ? ? ? Laminectomy, cervical fusion x2 ? PAST SURGICAL HISTORY OF ? ? ? bladder suspenion x2 ? REPAIR ROTATOR CUFF,ACUTE ? ? ? Rotator cuff repair bilat ? TOTAL HIP REPLACEMENT ? ? ? Hip replacement, total ? TOTAL KNEE REPLACEMENT ? ? ? Knee replacement, total ? VAGINAL HYSTERECTOMY ? ? ? Hysterectomy, vaginal ? ? CURRENT?MEDICATIONS ? Current Outpatient Medications: albuterol (PROVENTIL) 2.5 mg /3 mL (0.083 %) nebulizer solution Use 3 mL via nebulizer every 4 hours. diclofenac sodium (VOLTAREN) 1 % topical gel Apply to affected area four times daily. methadone (DOLOPHINE) 10 mg tablet Take 10 mg by mouth every 4 hours as needed. 10 mg qHS and 15 mg in the AM predniSONE (DELTASONE) 20 mg tablet Take 40 mg by mouth once daily. sertraline (ZOLOFT) 100 mg tablet Take 100 mg by mouth once daily. citalopram (CELEXA) 20 mg tablet Take 20 mg by mouth once daily. Gabapentin 300 mg Tab Take 600 mg by mouth daily at bedtime. meloxicam (MOBIC) 7.5 mg tablet Take 7.5 mg by mouth once daily. pravastatin 40 mg tablet Take 40 mg by mouth once daily. Headzrveoabfb-Qsydkvrl-Tjuqil (CENTRUM SILVER) Tab Take 1 tablet by mouth once daily. DULoxetine (CYMBALTA) 30 mg capsule Take 1 a day for 2 weeks, then increase to 2 pills a day. Calcium Carbonate-Vitamin D3 (VITAMIN D-3) 180-5,000 mg-unit ORAL Tab Take 1 tablet by mouth once daily. LISINOPRIL-HYDROCHLOROTHIAZIDE 10-12.5 mg ORAL per tablet 1 tablet once daily. metoprolol succinate XL, long acting, (TOPROL XL) 50 mg ORAL 24 hr tablet Take 50 mg by mouth once daily. oxyCODONE-acetaminophen (PERCOCET) 5-325 mg ORAL tablet Take 1 tablet by mouth every 6 hours as needed. ? No current facility-administered medications for this visit.? ? ALLERGIES:?Macrodantin [Nitrofurantoin]; Morphine Sulfate ? PERSONAL HISTORY:? 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 ?Employer: [employer] ??Social Needs ?Financial resource strain: Not on file ?Food insecurity: ?Worry: Not on file ?Inability: Not on file ?Transportation needs: ?Medical: Not on file ?Non-medical: Not on file ??Tobacco Use ?Smoking status: Never Smoker ?Smokeless tobacco: Never Used ??Substance and Sexual Activity ?Alcohol use: No ?Drug use: No ?Sexual activity: Not on file ??Lifestyle ?Physical activity: ?Days per week: Not on file ?Minutes per session: Not on file ?Stress: Not on file ??Relationships ?Social connections: ?Talks on phone: Not on file ?Gets together: Not on file ?Attends islam service: Not on file ?Active member of club or organization: Not on file ?Attends meetings of clubs or organizations: Not on file ?Relationship status: Not on file ?Intimate partner violence: ?Fear of current or ex partner: Not on file ?Emotionally abused: Not on file ?Physically abused: Not on file ?Forced sexual activity: Not on file ??Other Topics ?Concerns: ?Not on file ??Social History Narrative ?Not on file ? FAMILY HISTORY:? FAMILY?HISTORY History reviewed. No pertinent family history. ? REVIEW OF SYMPTOMS: ??The review of systems data was entered by the nurse and reviewed by me ? Nursing Notes: Rita David RN ?05/18/2019 ?2:52 PM ?Signed REVIEW OF SYSTEMS: ?General:???The patient NOTES fatigue, denies weight loss, NOTES weight gain, denies feeling hot, and denies feelings of cold. ?Eyes: ?The patient denies glaucoma, denies eye injury/surgery, does not wear glasses or contacts. ?Ear/Nose/Throat: ?The patient denies allergies, denies hayfever, denies ear infections, and denies bloody noses. ?Cardiovascular: ?The patient denies chest pain, denies heart disease, notes high blood pressure,denies cardiac stent, denies prior heart attack, denies irregular heart beat, notes high cholesterol, ?NOTES poor circulation, denies heart failure, other cardiac issues, denies claudication, denies cold feet, denies peripheral arterial stent. ?Respiratory: ?The patient denies tuberculosis, denies pneumonia, denies frequent cough, denies pulmonary embolism, NOTES shortness of breath, and denies coughing up blood. ?Gastrointestinal: ?The patient denies difficulty swallowing, denies acid reflux, denies ulcers, denies vomiting, denies jaundice/hepatitis, denies gallbladder problems, denies black or tarry stools, NOTES hemorrhoids, denies bleeding from rectum, denies diverticulitis, denies constipation, denies diarrhea, denies loss of stool control, and denies hernias. ?Kidney/Bladder: ?The patient denies kidney stones, denies urine infections, and denies bloody urine. ?Skin: ?The patient denies a history of skin cancer, denies bleeding/changing moles, and denies a history of skin rash. ?Neurologic: ?The patient denies a history of epilepsy/convulsions, NOTES headaches, denies head/spinal injuries, and denies stroke/TIA. ?Psychiatric: ?The patient denies psychiatric medications, denies depression, and denies voices, denies substance abuse. ?Endocrine: ?The patient denies thyroid disorders, denies diabetes, and denies hormonal problems. ?Hematologic: ?The patient denies a history of bruising, denies bleeding, and denies anemia, denies blood clots. ?Infections: ?The patient denies a history of measles and mumps, denies rheumatic fever, and denies sexually transmitted diseases. ?Musculoskeletal: ?The patient NOTES back pain/injury, NOTES back problems, denies sciatica, NOTES knee/foot trouble, NOTES arthritis, or denies gout. ? ? When was patient's last Mammogram screening? Unable to recall ? ?Last Colonoscopy: ?Patient unable to recall, guesses 12 years ago ? Rita David RN ? Adrián Damico ?05/18/2019 ?4:54 PM ?Signed REVIEW OF SYSTEMS: ?General:???The patient NOTES fatigue, denies weight loss, NOTES weight gain, NOTES feeling hot, and denies feelings of cold. ?Eyes: ?The patient denies glaucoma, denies eye injury/surgery, does not wear glasses or contacts. ?Ear/Nose/Throat: ?The patient denies allergies, denies hayfever, denies ear infections, and denies bloody noses. ?Cardiovascular: ?The patient denies chest pain, denies heart disease, NOTES high blood pressure,denies cardiac stent, denies prior heart attack, denies irregular heart beat, NOTES high cholesterol, ?NOTES poor circulation, denies heart failure, other cardiac issues, denies claudication, denies cold feet, denies peripheral arterial stent. ?Respiratory: ?The patient denies tuberculosis, denies pneumonia, denies frequent cough, denies pulmonary embolism, NOTES shortness of breath, and denies coughing up blood. ?Gastrointestinal: ?The patient denies difficulty swallowing, denies acid reflux, denies ulcers, denies vomiting, denies jaundice/hepatitis, denies gallbladder problems, denies black or tarry stools, NOTES hemorrhoids, denies bleeding from rectum, denies diverticulitis, denies constipation, denies diarrhea, denies loss of stool control, and denies hernias. ?Kidney/Bladder: ?The patient denies kidney stones, denies urine infections, and denies bloody urine. ?Skin: ?The patient denies a history of skin cancer, denies bleeding/gaby nging moles, and denies a history of skin rash. ?Neurologic: ?The patient denies a history of epilepsy/convulsions, NOTES headaches, denies head/spinal injuries, and denies stroke/TIA. ?Psychiatric: ?The patient denies psychiatric medications, denies depression, and denies voices, denies substance abuse. ?Endocrine: ?The patient denies thyroid disorders, denies diabetes, and denies hormonal problems. ?Hematologic: ?The patient denies a history of bruising, denies bleeding, and denies anemia, denies blood clots. ?Infections: ?The patient denies a history of measles and mumps, denies rheumatic fever, and denies sexually transmitted diseases. ?Musculoskeletal: ?The patient denies back pain/injury, NOTES back problems, denies sciatica, NOTES knee/foot trouble, NOTES arthritis, or NOTES gout. ? ? When was patient's last Mammogram screening? unknown ? ?Last Colonoscopy: ?unknown?? ? Adrián Damico? I have confirmed and edited as necessary, the PFSH and ROS obtained by others. ? ? PHYSICAL EXAMINATION: ? General: ?The patient is 74 year old female, well nourished, well hydrated in no acute distress. ?The patient is oriented to time, place, and person. ? VITALS:?Blood pressure 128/84, pulse 60, temperature 36.8 ?C (98.3 ?F), height 152.4 cm (5'), weight 89.8 kg (198 lb), SpO2 96 %.?Body mass index is 38.67 kg/m?.? ? HEENT: ?Normal cephalic, ataumatic, pupils are equally round, sclera are anicteric, mucous membranes are moist, oropharynx is clear. ?Neck has no masses, asymmetry or lymphadenopathy. ? ? Respiratory: ?Clear to auscultation and percussion. ?Normal respiratory excursion and pattern. ? Cardiac: ?Examination is regular rate and rhythm. ?Normal S1/S2 ? Abdominal exam: ?Soft, nontender, ?with no palpable masses. ?No hepatosplenomegaly. ?No palpable hernias. ? Extremities: ?no clubbing, cyanosis or edema. ?No adenopathy. ? LABORATORY VALUES: As Noted ? RADIOLOGIC STUDIES: ?As Noted ? ? Assessment ? IMPRESSION:?blood in stool, anemia, fatigue. ?plan for upper and lower endoscopy. ?Multiple medical comorbidities, plan for MAC ? PLAN: ?I have reviewed my findings with Dr. Winslow, who also independently evaluated the patient and participated in development of the following plan.??Will plan for upper and lower?endoscopy. ??We discussed the risks and benefits of the planned endoscopy. ?I have informed the patient that complications can occur including failure to complete the endoscopy and perforation. ?The patient had the opportunity to ask questions concerning the planned endoscopy. ?My staff has also explained the procedure to the patient in understandable terms and has given the patient printed material concerning the procedure. ?The patient freely consents to surgery. ? I plan to use?Golytely?bowel preparation ? The patient has medical comorbidities for which we will plan for the procedure to be performed under [facility]. ? ? Diagnoses:?(K92.1) Blood in stool ?(primary encounter diagnosis) (Z86.2) History of anemia (R53.81, ?R53.83) Malaise and fatigue (R53.81) Debility ? ? Bruna Tay PA-C
[2019-06-01 13:10] VITALS: BP 130/51; PULSE 56; RESP 16; TEMP 36.6; O2SAT 97; BMI 37.0
--- NOTE | 2019-06-01 13:15 | IMM_PTH ---
PATIENT: CAMILLA HAWLEY LOC: EN U#:[id number] AGE/SX: 74/F ROOM: RE06/01/[address]: Dr. Raf Winslow MD : 1945 BED: DIS: 06/01/2019 SPEC #: [id number] RECD: 06/02/19 12:16 STATUS: SOUMacie REQ #: [id number] LI: 06/01/19 13:[address]: Raf Winslow DEPT: IMMUNOHISTOCHEMISTRY RECD BY: Savana Lamb ENTERED: 06/02/19 12:20 SP TYPE: IMMUNO OTHR DR: MD Wolf Shah Tissues: Stomach, NOS Procedures: H Pylori (initial) PHYSICIAN & INSTITUTION [place] [id number] SPECIMEN INFORMATION: Tissue Source: Antral biopsy Clinical Info: Blood in stool Specimen Number: [id number] CPT code: 37653 METHODOLOGY: Deparaffinized sections of prefer/formalin-fixed tissue or PAP/DQ stained slides are incubated with monoclonal/polyclonal antibodies/oligonucleotide probes. Localization is made via biotin free immunoperoxidase method. Appropriate controls are performed and reacted as expected. Results on target cell population are indicated in the following table: RESULTS: ANTIBODY / CLONE RESULT H Pylori (polyclonal) negative These tests were developed and their performance characteristics determined by [facility]. They may not have been cleared or approved by the U.S. Food and Drug Administration. The FDA has determined that such clearance or approval is not necessary. INTERPRETATION: Antral biopsy: Negative for Helicobacter pylori organisms. AM:mary carmen 06/03/19
--- NOTE | 2019-06-01 13:15 | EGD_PTH ---
PATIENT: CAMILLA HAWLEY LOC: EN U#:[id number] AGE/SX: 74/F ROOM: RE06/01/[address]: Dr. Raf Winslow MD : 1945 BED: DIS: 06/01/2019 SPEC #: [id number] RECD: 06/01/19 14:27 STATUS: ARIEL KYM #: [id number] LI: 06/01/19 13:[address]: Raf Winslow DEPT: SURGICAL PATHOLOGY RECD BY: Nathanael Cabrera ENTERED: 06/02/19 08:56 SP TYPE: EGD BIOPSY OTHR DR: MD Wolf Shah Tissues: Gastric mucous membrane Procedures: Surgery Specimen Level IV HEADER OPERATION: Colonoscopy, EGD ([facility]) PRE-OP DIAGNOSIS: Blood in stool TISSUE SUBMITTED: Antral biopsy for H. pylori and path MICROSCOPIC DIAGNOSIS Gastric antrum, biopsy: Mild chronic gastritis. AM:mary carmen 06/03/19 COMMENT The results of immunohistochemistry for Helicobacter pylori will be reported separately ([id number]). MICROSCOPIC DESCRIPTION Slides are reviewed. GROSS DESCRIPTION Received in fixative is one container labeled with the patient's name and designated antral biopsy. The specimen consists of one irregular fragment of light wallace soft tissue that measures 0.3 x 0.2 x 0.1 cm. The specimen is totally submitted in one cassette. / SJ:rg 06/02/19 TC:3 CPT: 88982
[2019-06-01] MEDS: Lactated Ringers 1,000 ML 100 ML IV (13:20)
--- NOTE | 2019-06-01 14:08 | OP.ENDO_ITS ---
06/01/2019 Nahun Casillas MD [address] [place] [address] Re : Upper GI endoscopy procedure for Patricia Damico Dear Dr. Casillas This procedure was performed on Saturday, June 01, 2019. My impressions and recommendations are as follows: Impressions : - Normal examined jejunum. - Duodenitis. - Gastritis. Biopsied. - Medium-sized hiatal hernia. - Normal esophagus. Recommendations : - Resume previous diet. - Continue present medications. - Telephone my office for pathology results in 1 week. My findings are described in the full procedure note, which is enclosed. If I can be of further assistance, please feel free to contact me at Doctor phone number(s): , Work: . Sincerely, Raf Winslow MD 06/01/2019 2:07:41 PM This report has been signed electronically.
[2019-06-01 14:10] VITALS: BP 126/60; BP 130/51; PULSE 66; RESP 16; TEMP 36.7; O2SAT 97
--- NOTE | 2019-06-01 14:10 | OP.ENDO_ITS ---
06/01/2019 Nahun Casillas MD [address] [place] [address] Re : Colonoscopy procedure for Patricia Damico Dear Dr. Casillas This procedure was performed on Saturday, June 01, 2019. My impressions and recommendations are as follows: Impressions : - Preparation of the colon was poor. - Stool in the entire examined colon. - No specimens collected. Recommendations : - Discharge patient to home. - Resume previous diet. - Continue present medications. - No repeat colonoscopy due to age. My findings are described in the full procedure note, which is enclosed. If I can be of further assistance, please feel free to contact me at Doctor phone number(s): , Work: . Sincerely, Raf Winslow MD 06/01/2019 2:10:01 PM This report has been signed electronically.
[2019-06-01 14:15] VITALS: BP 130/51; BP 130/67; PULSE 63; RESP 16; O2SAT 96
[2019-06-01 14:20] VITALS: BP 126/57; BP 130/51; PULSE 59; RESP 16; O2SAT 96
[2019-06-01 14:25] VITALS: BP 124/61; BP 130/51; PULSE 59; RESP 16; O2SAT 96
[2019-06-01 15:48] VITALS: BP 130/51
== END 2019-06-01 15:50 | disposition home or self-care (01) ==
LOC: EN 12:32 → AC 12:33
PROVIDERS: Family Provider Family Medicine; PCP Family Medicine; Referring Provider Surgery; Visit Provider Surgery
PROC: 0DJD8ZZ Inspection of Lower Intestinal Tract, Via Natural or Artificial Opening Endoscopic (ICD-10-PCS; CPT 45378; principal; 2019-06-01 13:10)
DX: K29.50 Unspecified chronic gastritis without bleeding (principal); K29.80 Duodenitis without bleeding; K44.9 Diaphragmatic hernia without obstruction or gangrene; D50.9 Iron deficiency anemia, unspecified; K92.1 Melena; K21.9 Gastro-esophageal reflux disease without esophagitis; R53.83 Other fatigue; R53.81 Other malaise; Z80.0 Family history of malignant neoplasm of digestive organs; I10 Essential (primary) hypertension; E78.00 Pure hypercholesterolemia, unspecified; F34.1 Dysthymic disorder; J44.1 Chronic obstructive pulmonary disease with (acute) exacerbation; G47.33 Obstructive sleep apnea (adult) (pediatric); Z99.81 Dependence on supplemental oxygen; Z79.899 Other long term (current) drug therapy
CPT/HCPCS: 43239; 45378; 88305; 88342; J7120; J2405

== ENCOUNTER 2019-06-14 20:10 | Inpatient (IN) | payer MEDICARE, OTHER, SELFPAY ==
[2019-06-14 20:10] VITALS: BP 123/74; PULSE 90; RESP 19; TEMP 37.6; O2SAT 95; BMI 43.9
--- NOTE | 2019-06-14 20:44 | EKG12_ITS ---
Test Reason : SOB Blood Pressure : / mmHG Vent. Rate : 088 BPM Atrial Rate : 088 BPM P-R Int : 148 ms QRS Dur : 074 ms QT Int : 348 ms P-R-T Axes : 033 003 064 degrees QTc Int : 421 ms Normal sinus rhythm Normal ECG Confirmed by PRESTON MCGRATH ([id number]), assistant editor DONNA HAWLEY ([id number]) on 06/17/2019 8:33:34 AM Referred By: Dmitriy Rebollar Confirmed By:PRESTON MCGRATH
--- NOTE | 2019-06-14 20:50 | RAD_ITS ---
STUDY: X-RAY CHEST REASON FOR EXAM: Female, 74 years old. Fever. Shortness of breath. Lethargy. TECHNIQUE: Single AP portable view of the chest. COMPARISON: April 21, 2019. FINDINGS: Cervical fixation hardware. Cardiac silhouette unremarkable. Pulmonary vascularity unremarkable. Aorta calcified. No focal patchy airspace opacities. No pleural effusions. Basilar atelectasis/scar. Hiatal hernia. Osseous structures are demineralized. No pneumothorax. Advanced degenerative changes of the shoulders and spine with rotator cuff tears. RAD/Chest 1 View (Portable) IMPRESSION: No acute cardiopulmonary findings Basilar atelectasis/scarring Hiatal hernia Electronically Signed: Luiz Cohen DO at 21:27 EDT Tel , Service support ,
[2019-06-14 20:55] LABS: Absolute Lymphocyte Count 2.71 X10^3/uL (0.83-4.51); Absolute Neutrophil Count 7.1 X10^3/uL (2.0-7.7); Basophil# 0.04 X10^3/uL; Basophil% 0.4 % (0-1); Eosinophil# 0.23 X10^3/uL; Eosinophils% 2.1 % (0-5); Hematocrit 32.3 % (37-47); Hemoglobin 9.8 g/dL (12.0-15.0); Lymphocyte # 2.71 X10^3/ul (4.0); Mean Corp Hgb Conc 30.3 g/dL (32-36); Mean Corpuscular Volume 102.2 fL (81-99); Mean Platelet Vol. 10.1 fl (6.2-12.0); Monocyte# 0.67 X10^3/uL; Monocyte% 6.2 % (0-10); NRBC Flagged by Analyzer 0 % (0-5); Neutrophil # 7.07 X10^3/uL (2.7-7.7); Platelet Count 211 K/mm3 (150-450); RBC Distribution Width CV 14.8 % (11.6-14.6); RBC Distribution Width SD 55.5 fl (35.1-43.9); Red Blood Count 3.16 M/mm3 (4.2-5.4); White Blood Count 10.9 K/mm3 (4.4-11.0)
[2019-06-14 21:06] LABS: Lactic Acid 1.8 mmol/L (0.4-2.0)
[2019-06-14 21:07] LABS: Anion Gap 7 (5-15); BUN 40 mg/dL (7-18); BUN/Creat Ratio 40.4 RATIO (10-20); Calcium,Total 9.1 mg/dL (8.5-10.1); Chloride 99 mmol/L (98-107); Creatinine, Serum 0.99 mg/dL (0.55-1.02); EST Glomerular Filtration Rate 58 mL/min (>60); Est Glom Filt Rate - Afr Amer 70 mL/min (>60); Estimated Creatinine Clearance 35.81 ml/min; Glucose 105 mg/dL (74-106); Potassium 4.2 mmol/L (3.5-5.1); Sodium Level 137 mmol/L (136-145)
[2019-06-14] MEDS: Ipratropium/Albuterol Sulfate 3 ML AMPUL.NEB INHALATION (21:10)
[2019-06-14 21:11] VITALS: PULSE 91; RESP 24
[2019-06-14] MEDS: 0.9% Normal Saline 1,000 ML 150 ML IV (21:22)
[2019-06-14 21:42] LABS: Mucous, Urine 0 SEEN /hpf (<or=2+)
[2019-06-14 21:50] LABS: Color, Urine Yellow (Yellow); Glucose, Dipstick Normal (Normal); Ketone-Dipstick Negative (Negative); Leukocyte Esterase-Dipstick 500 /ul (Negative); Nitrite-Dipstick Positive (Negative); Occult Blood-Urine 150 /ul (Negative); Protein-Dipstick 15 mg/dl (Negative); Urine Bilirubin Dipstick Negative (Negative); Urine Clarity Sl. Cloudy (Clear); Urine Urobilinogen Normal (Normal)
[2019-06-14] MEDS: Ceftriaxone 1 GM/50 ML BAG IV (22:07)
[2019-06-14 22:13] VITALS: BP 117/59; PULSE 86; RESP 25; TEMP 37.3; O2SAT 96
[2019-06-14 22:14] LABS: White Blood Cells >100 SEEN /hpf (0-5)
[2019-06-14 22:15] LABS: Bacteria 3+ /hpf (None Seen); Red Blood Cells-Urine 10-25 SEEN /hpf (0-5); Squamous Epithelial Cells - UA 0-5 SEEN /hpf (5-10)
--- NOTE | 2019-06-14 22:22 | ED.DCSUM_ITS ---
- ER Visit Summary Date of Service: 06/14/19 Chief Complaint: [Fever] History of Present Illness: The patient is a 74 F [presents to the emergency department with a fever started today. Patient states that she does not feel right. She denies cough. She denies dysuria. Patient was recently treated for UTI and COPD exacerbation. She denies any diarrhea. She denies any chest pain. She denies abdominal pain. Patient is [place] and is somewhat of a poor historian.] Patient appears confused and thinks she is still at home and thought that she still lives with her . Physical Examination: [HEENT-PERRLA, EOMI. Cranial nerves II through XII grossly intact. TMs clear. Mucous membranes moist. No adenopathy. Cardiovascular-regular rate and rhythm without murmur or ectopy Lungs-clear to auscultation, chest wall stable without crepitus or subcu emphysema Abdomen-normoactive bowel sounds, soft, nontender, no rebound or rigidity, no peritoneal signs. Extremities-intact ?4, normal range of motion, normal pulses, atraumatic. Patient does not move the lower extremities.] Test Results: [EKG obtained arrival shows sinus rhythm with a ventricular rate of 88 bpm with no acute segment changes. CBC with differential showed a white c ount of 10.9, hemoglobin 9.8, hematocrit 32, platelets 211. Chemistries unremarkable. Troponin is less than 1015. ABG obtained showed a pH of 7.45, CO2 40, PaO2 73, and bicarb is 28. Chest x-ray showed nothing acute. Urinalysis was positive for infection with 500 leukocyte esterase, positive nitrites, greater than 100 WBCs and +3 bacteria.] Emergency Department Course and Treatment: [Patient had blood cultures ordered as well as urine cultures. Patient was started on Rocephin 1 g IV.] Treatment Plan: [Admit for IV antibiotics and IV fluids.] Disposition: [Admit] Impression: [UTI Confusion Dentalized weakness] This note was generated with Help/Systems dictation software. It may contain incorrect words, spelling, and punctuation that were not noted in review of the chart prior to signing ED Disposition - Plan for ED Patient: Referrals: Wolf Berry [Primary Care Provider] -
--- NOTE | 2019-06-14 22:53 | PCM.HP.STD ---
History of Present Illness Date of Admission: 06/14/19 Chief Complaint: Fever, lethargy and shortness of breath The patient is a 74 year old F with multiple comorbidities as listed above was sent from [facility] for being febrile, lethargy with altered mental status. Patient denies any recent onset of cough, mucus or chest congestion but has history of COPD on 2.5 L of [facility] the [facility]. She has nasal congestion with postnasal drip as URI symptoms. In ED, temperature 99.7, blood pressure 123/74, respiratory rate 19 to 25/min and pulse ox 95% on 2.5 L of oxygen. Patient is not a good historian therefore not able to say about lower urinary tract symptoms including dysuria, increased frequency urgency. In ED, basic blood work does not show leukocytosis, hemoglobin low 9.8 MCV 102, platelet count 211,000. BMP BUN 40, creatinine 0.99 lactic acid 1.8. UA shows pyuria more than 100 cells, LE 500, nitrite positive. Patient overall looks dehydrated. As per the patient's son and [id number], she was recently treated with antibiotic and finished on . Urine culture from 05/26 shows E. coli more than 100,000, pansensitive. Chest x-ray reported as no acute cardiopulmonary finding with bibasilar atelectasis/scarring. EKG normal sinus rhythm at 88 bpm. Patient also gained about 10 to 15 pounds in last 6 months probably on chronic prednisone but has mild pedal edema. She was last admitted on 04/21 for COPD exacerbation. [] Past Medical History Past Medical History (Chronic Problems): Chronic Problems (Last Updated 05/26/19 @ 14:31 by Ciarra Beauchamp) Chronic obstructive pulmonary disease (Chronic) Acute exacerbation of chronic obstructive pulmonary disease (COPD) (Chronic) Chronic back pain (Chronic) Essential (primary) hypertension (Chronic) Cardiomyopathy in diseases classified elsewhere (Chronic) Nonrheumatic tricuspid (valve) insufficiency (Chronic) Palpitations (Chronic) Hyperlipidemia (Chronic) Medical History: Medical History (Last Updated 05/26/19 @ 14:31 by Ciarra Beauchamp) Essential (primary) hypertension (Chronic) I10 Cardiomyopathy in diseases classified elsewhere (Chronic) I43 Nonrheumatic tricuspid (valve) insufficiency (Chronic) I36.1 Palpitations (Chronic) R00.2 Hyperlipidemia (Chronic) E78.5 Anxiety F41.9 Arthritis M19.90 Depression F32.9 MRSA (methicillin resistant staph aureus) culture positive Z22.322 Shortness of breath R06.02 Vitamin D deficiency E55.9 COPD (chronic obstructive pulmonary disease) J44.9 DDD (degenerative disc disease) HTN (hypertension) I10 Hemorrhoids K64.9 PVD (peripheral vascular disease) I73.9 Venous insufficiency of right leg I87.2 Cellulitis of right leg (Resolved) L03.115 Severe vomiting after antibiotic (Resolved) Ankle ulcer (Inactive) Chronic pain (Inactive) G89.29 Delayed wound healing (Inactive) T14.8 Edema, lower extremity (Inactive) R60.0 Foot drop, right (Inactive) M21.371 Gait instability (Inactive) R26.81 H/O open leg wound (Inactive) Z87.828 Malnutrition (Inactive) E46 Non-pressure chronic ulcer of right lower leg with fat layer exposed (Inactive) L97.912 Osteomyelitis of ankle, right, acute (Inactive) M86.171 Stage III pressure ulcer of ankle (Inactive) L89.503 Stage III pressure ulcer of right ankle (Inactive) L89.513 Venous ulcer of left lower extremity without varicose veins (Inactive) I87.2, L97.929 Allergies amoxicillin [From Augmentin] Adverse Reaction (Verified 06/14/19 20:15) Nausea/Vom/Diarrhea clavulanic acid [From Augmentin] Adverse Reaction (Verified 06/14/19 20:15) Nausea/Vom/Diarrhea nitrofurantoin macrocrystalline [From Macrodantin] Adverse Reaction (Verified 06/14/19 20:15) Vomiting sulfamethoxazole [From Bactrim] Adverse Reaction (Verified 06/14/19 20:15) Nausea/Vom/Diarrhea trimethoprim [From Bactrim] Adverse Reaction (Verified 06/14/19 20:15) Nausea/Vom/Diarrhea Home Medications: Ambulatory Orders Medication Instructions Recorded Methadone HCl 10 mg PO QHS 10/04/15 Sertraline HCl [Zoloft] 100 mg PO QHS 10/04/15 Metoprolol Tartrate [Lopressor 50 mg PO BID 06/10/17 (beta melissa)] pravastatin 40 mg tablet 40 mg PO QHS 01/17/18 hydrochlorothiazide 25 mg tablet 25 mg PO DAILY 12/03/18 Albuterol Aerosols [Ventolin 2.5 mg INHALATION Q4H PRN PRN 04/21/19 Aerosols] Diclofenac Sodium [Voltaren] 2 gm TP BID 04/21/19 Docusate Sodium [Colace] 100 mg PO QHS 04/21/19 Ergocalciferol (Vitamin D2) 50,000 unit PO UD 04/21/19 [Vitamin D2] Gabapentin [Neurontin] 200 mg PO TIDCM 04/21/19 Guaifenesin/Dextromethorphan 1 ea PO BID 04/21/19 [Mucinex Dm ER 1,200-60 mg Tab] L.acidoph,Paracasei, B.lactis 1 ea PO BID 04/21/19 [Probiotic] Lisinopril [Prinivil] 10 mg PO DAILY 04/21/19 Lorazepam [Ativan] 0.25 mg PO TID PRN PRN 04/21/19 Methadone HCl 10 mg PO DAILY@1200 04/21/19 Methadone HCl 15 mg PO DAILY@0900 04/21/19 Multivitamin with Minerals 1 ea PO DAILY 04/21/19 [Multiple Vitamin] Polyethylene Glycol 3350 [Miralax] 17 gm PO DAILY 04/21/19 Senna [Senokot] 1 tab PO DAILY 04/21/19 ferrous sulfate 325 mg (65 mg 325 mg PO DAILY 05/26/19 iron) tablet Ipratropium/Albuterol Sulfate 3 ml INHALATION Q6H.RT 05/29/19 [Duoneb] Prednisone [Deltasone] 20 mg PO DAILY 06/14/19 Surgical History: Surgical History (Last Reviewed 05/26/19 @ 14:29 by Ciarra Beauchamp) H/O shoulder surgery Z98.890 History of back surgery Z98.890 History of neck surgery Z98.890 History of hip replacement Z96.649 History of hysterectomy Z90.710 History of incisional hernia repair Z98.890, Z87.19 Hx of repair of rotator cuff Z98.890 Surgical History: total hip arthroplasty - Right, total knee arthroplasty - Right, - - Lumbar laminectomy Psychiatric History: Anxiety, Depression 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 Smoking Status: Never smoker - *Family History Maternal Family History: Family History (Last Reviewed 05/26/19 @ 14:29 by Ciarra Beauchamp) Father Hypertension Mother Diabetes Hypertension Brother Diabetes Brother Cancer Sister Hypertension History Items: Diabetes, Heart Disease, Hypertension Paternal Family History: Family History (Last Reviewed 05/26/19 @ 14:29 by Ciarra Beauchamp) Father Hypertension Mother Diabetes Hypertension Brother Diabetes Brother Cancer Sister Hypertension History Items: Heart Disease, Hypertension Review of Systems Constitutional: Reports: Chills, Fever, Malaise, Weakness Cardiovascular: Denies: Chest Pain Respiratory: Reports: Shortness of Breath, Shortness of breath upon exertion. Denies: Cough, Hemoptysis, Pleuritic Pain Gastrointestinal: Reports: Abdominal Pain - Complaint of abdominal pain not able to tell specific Musculoskeletal: Reports: Foot Pain, Leg Pain Neurological: Reports: Balance problems, Confusion, - - Had fall about 2 to 3 days ago and small bruise in the left leg Psychiatric: Reports: Anxiety, Depression Unable to obtain accurate/complete ROS d/t: Patient is lethargic with altered mental status. VTE Information - Inpt Only VTE Present on Admission: No VTE Mechan Device Prophylaxis: None VTE Pharm Prophylaxis ordered?: Yes - Physical Exam General: Confused, Disoriented, Lethargic HEENT: Atraumatic, PERRLA, EOMI, Normocephalic Oral: Dry Mucosa Neck: Supple, No JVD, Negative Carotid Bruits Lungs: Diminished - Air entry is diminished in all lung calixto., Rhonchi - Mild expiratory rhonchi present, Short of Breath, Tachypneic Cardiovascular: Regular rate, Regular Rhythm, Normal S1, Normal S2, No murmurs Abdomen: Bowel Sounds Present, Soft, Non-Distended, Tender - Mild suprapubic tenderness. Extremities: Capillary Refill Less than 3 Seconds, Edema - Mild pedal edema. Patient is obese and generalized fatty swelling of lower extremities Skin: No rashes, No breakdown, - - Small greenish-blue bruise over left leg Musculoskeletal: No Tenderness to Palpation of Joints or Extremities Neurological: Cranial nerves II-XII grossly intact Psych/Mental Status: Normal Affect, Appropriate Vital Signs Temp Pulse Resp BP Pulse Ox 99.1 F 86 25 H 117/59 L 96 06/14/19 22:13 06/14/19 22:13 06/14/19 22:13 06/14/19 22:13 06/14/19 22:13 Oxygen Flow Rate (L/min) 2 Oxygen Delivery Method Nasal Cannula Weight: 225 lb 4.999 oz Body Mass Index (BMI) 43.9 Intake and Output for Last 24 Hours 06/12/19 06/13/19 06/14/19 23:59 23:59 23:59 Intake Total 50 / 50 Balance 50 / 50 Laboratory Tests Past 24 Hrs 06/14/19 06/14/19 06/14/19 20:20 20:20 20:20 WBC 10.9 RBC 3.16 L Hgb 9.8 L Hct 32.3 L MCV 102.2 H MCH 31.0 MCHC 30.3 L RDW Std Deviation 55.5 H RDW Coeff of Zach 14.8 H Plt Count 211 MPV 10.1 Immature Gran % (Auto) 1.300 H Neut % (Auto) 65.0 Lymph % (Auto) 25.0 [place] % (Auto) 6.2 Eos % (Auto) 2.1 Baso % (Auto) 0.4 Absolute Neuts (auto) 7.1 Absolute Lymphs (auto) 2.71 Nucleated RBC % 0 Sodium 137 Potassium 4.2 Chloride 99 Carbon Dioxide 31.0 Anion Gap 7 BUN 40 H Creatinine 0.99 Estim Creat Clear Calc 35.81 Est GFR (MDRD) Af Amer 70 Est GFR (MDRD) Non-Af 58 L BUN/Creatinine Ratio 40.4 H Glucose 105 Lactic Acid 1.8 Calcium 9.1 Troponin I < 0.015 Urine Color Urine Clarity Urine pH Ur Specific [place] Urine Protein Urine Glucose (UA) Urine Ketones Urine Occult Blood Urine Nitrite Urine Bilirubin Urine Urobilinogen Ur Leukocyte Esterase Urine RBC Urine WBC Ur Squamous Epith Cells Urine Bacteria Urine Mucus 06/14/19 21:30 WBC RBC Hgb Hct MCV MCH MCHC RDW Std Deviation RDW Coeff of Zach Plt Count MPV Immature Gran % (Auto) Neut % (Auto) Lymph % (Auto) [place] % (Auto) Eos % (Auto) Baso % (Auto) Absolute Neuts (auto) Absolute Lymphs (auto) Nucleated RBC % Sodium Potassium Chloride Carbon Dioxide Anion Gap BUN Creatinine Estim Creat Clear Calc Est GFR (MDRD) Af Amer Est GFR (MDRD) Non-Af BUN/Creatinine Ratio Glucose Lactic Acid Calcium Troponin I Urine Color Yellow Urine Clarity Sl. Cloudy Urine pH 7.0 Ur Specific [place] 1.010 Urine Protein 15 H Urine Glucose (UA) Normal Urine Ketones Negative Urine Occult Blood 150 H Urine Nitrite Positive H Urine Bilirubin Negative Urine Urobilinogen Normal Ur Leukocyte Esterase 500 H Urine RBC 10-25 SEEN Urine WBC >100 SEEN Ur Squamous Epith Cells 0-5 SEEN Urine Bacteria 3+ Urine Mucus 0 SEEN Assessment/Plan All Active Problems (Last Updated 05/26/19 @ 14:31 by Ciarra Beauchamp) Cellulitis (Resolved) Cellulitis of right leg (Resolved) DVT (deep venous thrombosis) (Resolved) Severe vomiting after antibiotic (Resolved) Warfarin-induced coagulopathy (Resolved) The patient is a 74 year old F with multiple comorbidities as listed above was sent from [facility] for being febrile, lethargy with altered mental status. Patient denies any recent onset of cough, mucus or chest congestion but has history of COPD on 2.5 L of [facility]. She has nasal congestion with postnasal drip as URI symptoms. In ED, temperature 99.7, blood pressure 123/74, respiratory rate 19 to 25/min and pulse ox 95% on 2.5 L of oxygen. Patient is not a good historian therefore not able to say about lower urinary tract symptoms including dysuria, increased frequency urgency. In ED, basic blood work does not show leukocytosis, hemoglobin low 9.8 MCV 102, platelet count 211,000. BMP BUN 40, creatinine 0.99 lactic acid 1.8. UA shows pyuria more than 100 cells, LE 500, nitrite positive. Patient overall looks dehydrated. As per the patient's son and [id number], she was recently treated with antibiotic and finished on . Urine culture from 05/26 shows E. coli more than 100,000, pansensitive. Chest x-ray reported as no acute cardiopulmonary finding with bibasilar atelectasis/scarring. EKG normal sinus rhythm at 88 bpm. Patient also gained about 10 to 15 pounds in last 6 months probably on chronic prednisone but has mild pedal edema. She was last admitted on 04/21 for COPD exacerbation. 1. Altered mental status most likely secondary to UTI/URI/metabolic or infectious encephalopathy/toxic encephalopathy from polypharmacy: Patient is being admitted in PCU. IV fluid normal saline 100 mL/h. Monitor intake and output. Treat underlying cause. Mild dehydration with prerenal azotemia. 2. COPD exacerbation: DuoNeb every 4 hourly with albuterol as needed. IV Solu-Medrol, IV Zithromax and Mucinex. Incentive spirometry, chest physiotherapy, respiratory panel and urinary antigens ordered. Blood cultures x2 ordered. Mild chronic hypoxic respiratory insufficiency on baseline 2.5 L oxygen. 3. sepsis (fever, tachypnea with borderline leukocytosis 10.9 thousand ) probably due to acute on recurrent UTI/URI: Urine culture has been ordered. Started empirically on IV ceftriaxone. 4. Hypertension, dyslipidemia and morbid obesity: Blood pressure and heart rate are controlled. Home medications continued. 5. Chronic microcytic anemia: During previous admission in May 2019 folic acid and B12 are normal. Overall iron work-up suggestive of anemia of chronic disease. 6. Anxiety and depression: Home medications SSRI continued. 7. Chronic pain: Patient is on multiple opioid medications including methadone, prednisone, Ativan which are potential to cause encephalopathy. Hold pain medications. Diclofenac topical for pain control. 8. DVT prophylaxis: On Lovenox 40 mg subcu daily. Laboratory Results 06/14/19 20:20: WBC 10.9, RBC 3.16 L, Hgb 9.8 L, Hct 32.3 L, MCV 102.2 H, MCH 31.0, MCHC 30.3 L, RDW Std Deviation 55.5 H, RDW Coeff of Zach 14.8 H, Plt Count 211, MPV 10.1, Immature Gran % (Auto) 1.300 H, Neut % (Auto) 65.0, Lymph % (Auto) 25.0, [place] % (Auto) 6.2, Eos % (Auto) 2.1, Baso % (Auto) 0.4, Absolute Neuts (auto) 7.1, Absolute Lymphs (auto) 2.71, Nucleated RBC % 0 06/14/19 20:20: Sodium 137, Potassium 4.2, Chloride 99, Carbon Dioxide 31.0, Anion Gap 7, BUN 40 H, Creatinine 0.99, Estim Creat Clear Calc 35.81, Est GFR (MDRD) Af Amer 70, Est GFR (MDRD) Non-Af 58 L, BUN/Creatinine Ratio 40.4 H, Glucose 105, Calcium 9.1, Troponin I < 0.015 06/14/19 20:20: Lactic Acid 1.8 06/14/19 21:30: Urine Color Yellow, Urine Clarity Sl. Cloudy, Urine pH 7.0, Ur Specific [place] 1.010, Urine Protein 15 H, Urine Glucose (UA) Normal, Urine Ketones Negative, Urine Occult Blood 150 H, Urine Nitrite Positive H, Urine Bilirubin Negative, Urine Urobilinogen Normal, Ur Leukocyte Esterase 500 H, Urine RBC 10-25 SEEN, Urine WBC >100 SEEN, Ur Squamous Epith Cells 0-5 SEEN, Urine Bacteria 3+, Urine Mucus 0 SEEN Clinical Impression(s) from Imaging Studies Chest X-Ray 06/14/19 20:50 IMPRESSION: No acute cardiopulmonary findings Basilar atelectasis/scarring Hiatal hernia Code Visit Inpatient E&M: 37043 Init Hosp L3
[2019-06-14 23:16] VITALS: BP 126/69; PULSE 81; RESP 18; TEMP 37.2; O2SAT 92
[2019-06-14 23:19] VITALS: BMI 34.2
[2019-06-14 23:28] VITALS: BMI 34.3
[2019-06-15] VITALS (22 sets, daily range): BP systolic 115–175; BP diastolic 40–87; PULSE 69–97; RESP 17–22; TEMP 36.6–37.2; O2SAT 91–100
[2019-06-15] MEDS: 0.9% Normal Saline 1,000 ML 100 ML IV
[2019-06-15] MEDS: Sertraline 100 MG Tablet PO ×2 (00:09→21:27)
[2019-06-15] MEDS: Acetaminophen 325 MG Tablet 650 MG PO (03:56)
[2019-06-15 06:42] LABS: Absolute Neutrophil Count 6.1 X10^3/uL (2.0-7.7); Basophil# 0.03 X10^3/uL; Basophil% 0.4 % (0-1); Eosinophil# 0.16 X10^3/uL; Eosinophils% 1.9 % (0-5); Hematocrit 26.5 % (37-47); Hemoglobin 8.3 g/dL (12.0-15.0); Lymphocyte % 19.1 % (19-41); Mean Corp Hgb Conc 31.3 g/dL (32-36); Mean Corpuscular Hgb 31.6 pg (27.0-32.0); Mean Corpuscular Volume 100.8 fL (81-99); Mean Platelet Vol. 10.1 fl (6.2-12.0); Monocyte# 0.41 X10^3/uL; Monocyte% 4.9 % (0-10); NRBC Flagged by Analyzer 0 % (0-5); Neutrophil # 6.05 X10^3/uL (2.7-7.7); Neutrophil % 72.4 % (47-70); Platelet Count 168 K/mm3 (150-450); Red Blood Count 2.63 M/mm3 (4.2-5.4); White Blood Count 8.4 K/mm3 (4.4-11.0)
[2019-06-15 07:12] LABS: Anion Gap 7 (5-15); BUN 35 mg/dL (7-18); BUN/Creat Ratio 48.5 RATIO (10-20); Calcium,Total 8.3 mg/dL (8.5-10.1); Chloride 104 mmol/L (98-107); Creatinine, Serum 0.72 mg/dL (0.55-1.02); EST Glomerular Filtration Rate 84 mL/min (>60); Est Glom Filt Rate - Afr Amer 102 mL/min (>60); Estimated Creatinine Clearance 42.62 ml/min; Glucose 107 mg/dL (74-106); Potassium 4.1 mmol/L (3.5-5.1); Sodium Level 139 mmol/L (136-145); Thyroid Stim Hormone (TSH) 1.24 uIU/mL (0.358-3.74)
--- NOTE | 2019-06-15 08:01 | PN_ITS ---
Subjective: Chief complaint: Follow-up after admission for acute COPD exacerbation, acute cystitis and metabolic encephalopathy. Patient seen and examined. No acute events overnight. This morning, patient is alert and awake. She was able to answer all my questions appropriately. She is alert and related x3. She mentioned that her breathing is getting better slowly. She complains of vague abdominal discomfort. She complained of occasional urinary incontinence. Denied chest pain or rotation. She has been afebrile. Heart rate and blood pressure stable, pulse ox is 94% on 2 L. - Physical Exam General: Alert, Oriented x3, Cooperative, - - Minimal shortness of breath. HEENT: Atraumatic, PERRLA, EOMI Oral: Moist Mucosa, No Gingival or Mucosal Lesions/ Ulcerations Neck: Supple, No JVD, Negative Carotid Bruits Lungs: Clear to auscultation, No rhonchi, No wheeze, No rales, Diminished, Short of Breath Cardiovascular: Regular rate, Regular Rhythm, Normal S1, Normal S2, PMI Normal Abdomen: Bowel Sounds Present, Soft, Non Tender, Non-Distended, No Hepato- splenomegaly, Obese Extremities: No clubbing, No cyanosis, Edema Skin: No rashes, No breakdown Lymphatic: No Cervical, Supraclavicular, or Inguinal Adenopathy Neurological: Cranial nerves II-XII grossly intact, Motor Exam 5/5 strength throughout Psych/Mental Status: Appropriate, Flat Affect Vital Signs Temp Pulse Resp BP Pulse Ox 98.3 F 80 20 H 115/40 L 94 06/15/19 03:50 06/15/19 07:17 06/15/19 07:17 06/15/19 03:50 06/15/19 07:22 Oxygen Flow Rate (L/min) 2 Oxygen Delivery Method Nasal Cannula Weight: 200 lb 13.458 oz Body Mass Index (BMI) 34.2 Intake and Output for Last 24 Hours 06/13/19 06/14/19 06/15/19 23:59 23:59 23:59 Intake Total 50 / 445 1093.33 / 1093.33 Balance 50 / 445 1093.33 / 1093.33 Microbiology Past 72 Hours 06/14/19 21:30 Streptococcus pneumoniae Antigen (M - Final Urine, Random 06/14/19 21:30 Legionella Antigen - Final Urine, Random Laboratory Tests Past 24 Hrs 06/14/19 06/14/1906/14/19 20:20 20:20 20:20 WBC 10.9 RBC 3.16 L Hgb 9.8 L Hct 32.3 L MCV 102.2 H MCH 31.0 MCHC 30.3 L RDW Std Deviation 55.5 H RDW Coeff of Zach 14.8 H Plt Count 211 MPV 10.1 Immature Gran % (Auto) 1.300 H Neut % (Auto) 65.0 Lymph % (Auto) 25.0 [place] % (Auto) 6.2 Eos % (Auto) 2.1 Baso % (Auto) 0.4 Absolute Neuts (auto) 7.1 Absolute Lymphs (auto) 2.71 Nucleated RBC % 0 Sodium 137 Potassium 4.2 Chloride 99 Carbon Dioxide 31.0 Anion Gap 7 BUN 40 H Creatinine 0.99 Estim Creat Clear Calc 35.81 Est GFR (MDRD) Af Amer 70 Est GFR (MDRD) Non-Af 58 L BUN/Creatinine Ratio 40.4 H Glucose 105 Lactic Acid 1.8 Calcium 9.1 Troponin I < 0.015 TSH Urine Color Urine Clarity Urine pH Ur Specific [place] Urine Protein Urine Glucose (UA) Urine Ketones Urine Occult Blood Urine Nitrite Urine Bilirubin Urine Urobilinogen Ur Leukocyte Esterase Urine RBC Urine WBC Ur Squamous Epith Cells Urine Bacteria Urine Mucus 06/14/19 06/15/19 06/15/19 21:30 06:25 06:25 WBC 8.4 RBC 2.63 L Hgb 8.3 L Hct 26.5 L MCV 100.8 H MCH 31.6 MCHC 31.3 L RDW Std Deviation 54.0 H RDW Coeff of Zach 15.0 H Plt Count 168 MPV 10.1 Immature Gran % (Auto) 1.300 H Neut % (Auto) 72.4 H Lymph % (Auto) 19.1 [place] % (Auto) 4.9 Eos % (Auto) 1.9 Baso % (Auto) 0.4 Absolute Neuts (auto) 6.1 Absolute Lymphs (auto) 1.60 Nucleated RBC % 0 Sodium 139 Potassium 4.1 Chloride 104 Carbon Dioxide 28.0 Anion Gap 7 BUN 35 H Creatinine 0.72 Estim Creat Clear Calc 42.62 Est GFR (MDRD) Af Amer 102 Est GFR (MDRD) Non-Af 84 BUN/Creatinine Ratio 48.5 H Glucose 107 H Lactic Acid Calcium 8.3 L Troponin I TSH 1.24 Urine Color Yellow Urine Clarity Sl. Cloudy Urine pH 7.0 Ur Specific [place] 1.010 Urine Protein 15 H Urine Glucose (UA) Normal Urine Ketones Negative Urine Occult Blood 150 H Urine Nitrite Positive H Urine Bilirubin Negative Urine Urobilinogen Normal Ur Leukocyte Esterase 500 H Urine RBC 10-25 SEEN Urine WBC >100 SEEN Ur Squamous Epith Cells 0-5 SEEN Urine Bacteria 3+ Urine Mucus 0 SEEN Clinical Impression(s) from Imaging Studies Chest X-Ray 06/14/19 20:50 IMPRESSION: No acute cardiopulmonary findings Basilar atelectasis/scarring Hiatal hernia Electronically Signed: Luiz Cohen, at 21:27 EDT Tel , Service support , Medical Necessity - Tobacco Use Smoking Status: Never smoker Assessment/Plan This is a 74 years old female patient presented to the emergency room because of reported fever as well as shortness of breath and she was found to have acute COPD exacerbation and acute cystitis. #1 acute COPD exacerbation: She is on IV antibiotics, IV steroids and bronchodilators. Chest x-ray showed no acute findings. Pneumonia ruled out. Patient stated that she feels better, pulse ox is 94% on 2 L. She required up to 4 L on admission but has been improving. She has been afebrile, no leukocytosis. Pneumococcal and Legionella antigen were negative. Respiratory panel for viruses is pending. Plan to continue same treatment. #2 acute cystitis: She is on IV Rocephin. Urine culture and blood culture pending. Plan to continue same treatment. #3 chronic pain syndrome/peripheral neuropathy: Continue Neurontin, morphine, OxyIR. We will need to resume her methadone if she is currently taking it. #4 hypertension: Blood pressure slightly elevated, continue lisinopril, HCTZ and metoprolol. Start IV hydralazine PRN. #5 chronic anemia: Today's hemoglobin is 8.3 g/dL. Continue iron supplement. #6 depression: Continue Zoloft. #7 hyperlipidemia: Continue statins. #8 DVT prophylaxis: Subcu Lovenox. This note was generated with [employer] software. It may contain incorrect words, spelling, and punctuation that were not noted in checking the note before signing. Code Visit Inpatient E&M: 54476 Subs Hosp L2
[2019-06-15] MEDS: guaiFENesin 1,200 MG Tablet 1200 MG PO ×2 (08:16→21:27)
[2019-06-15] MEDS: Polyethylene Glycol 3350 17 GM PACKET PO (08:16)
[2019-06-15] MEDS: Ferrous Sulfate 325 MG Tablet PO (08:16)
[2019-06-15] MEDS: Metoprolol Tartrate 50 MG Tablet PO ×2 (08:16→21:25)
[2019-06-15] MEDS: Multivitamins,Ther W-Minerals Tablet 1 TABLET PO (08:17)
[2019-06-15] MEDS: hydroCHLOROthiazide 25 MG Tablet PO (08:17)
[2019-06-15] MEDS: Lisinopril 10 MG Tablet PO (08:17)
[2019-06-15] MEDS: Gabapentin 100 MG Capsule 200 MG PO ×3 (08:17→16:49)
[2019-06-15] MEDS: Ceftriaxone 1 GM/50 ML BAG IV (09:14)
[2019-06-15] MEDS: Enoxaparin 40 MG/0.4 ML Syringe SC (09:14)
--- NOTE | 2019-06-15 10:07 | CASEMGMT ---
RAMIRO reviewed chart and noted patient is from [facility]. RAMIRO called Yanely at [facility] and patient is a [facility]. SW faxed her updates on patient. SW to follow. Corrie RICHARDS MSW
[2019-06-15] MEDS: Ipratropium/Albuterol Sulfate 3 ML AMPUL.NEB INHALATION ×3 (10:43→23:20)
--- NOTE | 2019-06-15 11:37 | CASEMGMT ---
RAMIRO confirmed with patient that her plan is to return to [facility]. Corrie RICHARDS [place]
[2019-06-15 12:44] LABS: Allen Test POS; Blood Gas Specimen Type ART; SITE R RADIAL
[2019-06-15 12:45] LABS: Base Excess 4 mmol/L (-2 to +2); Bicarbonate 28.2 mmol/L (22-26); O2 Delivery Device Nasal Can; PO2 73 mmHG (75-100); SO2 95 % (95-99); Time Given 2126; Total Carbon Dioxide 29 mmol/L; pCO2 40.3 mmHg (35-45); pH 7.45 (7.35-7.45)
[2019-06-15] MEDS: Methadone 10 MG Tablet PO ×2 (12:58→21:32)
[2019-06-15] MEDS: Menthol/Lanolin/Calamine/Znox 113 GM Tube 1 APPLIC TOPICAL (21:25)
[2019-06-15] MEDS: Pravastatin 40 MG Tablet PO (21:27)
[2019-06-15] MEDS: 0.9% NaCl Peripheral Flush Adult/Peds IV (21:33)
[2019-06-16] VITALS (17 sets, daily range): BP systolic 119–150; BP diastolic 56–78; PULSE 67–93; RESP 16–22; TEMP 36.6–37; O2SAT 93–95
[2019-06-16] MEDS: Ipratropium/Albuterol Sulfate 3 ML AMPUL.NEB INHALATION ×6 (03:10→22:49)
[2019-06-16 06:44] LABS: Hematocrit 25.9 % (37-47); Hemoglobin 7.9 g/dL (12.0-15.0)
--- NOTE | 2019-06-16 08:05 | PCM.PROGNOTE ---
Subjective: Chief complaint: Follow-up after admission for acute COPD exacerbation, acute cystitis and metabolic encephalopathy. Patient seen and examined. No acute events overnight. Today, she is feeling better, shortness of breath improved. Her aches and pains also improved. Her vital signs are stable, afebrile. Pulse ox is 93% on room air. - Physical Exam General: Alert, Oriented x3, Cooperative, No apparent distress HEENT: Atraumatic, PERRLA, EOMI, Normocephalic Oral: Moist Mucosa, No Gingival or Mucosal Lesions/ Ulcerations Neck: Supple, No JVD, Negative Carotid Bruits, Trachea Midline, Thyroid Normal Size and Texture Lungs: Clear to auscultation, No rhonchi, No wheeze, No rales, Diminished Cardiovascular: Regular rate, Regular Rhythm, Normal S1, Normal S2, PMI Normal Abdomen: Bowel Sounds Present, Soft, Non Tender, Non-Distended, Obese Extremities: No clubbing, No cyanosis, Edema Skin: No rashes, No breakdown Lymphatic: No Cervical, Supraclavicular, or Inguinal Adenopathy Neurological: Cranial nerves II-XII grossly intact, Neuro grossly intact Psych/Mental Status: Normal Affect, Appropriate Vital Signs Temp Pulse Resp BP Pulse Ox 98.1 F 67 18 137/56 H 93 06/16/19 08:00 06/16/19 08:00 06/16/19 08:00 06/16/19 08:00 06/16/19 08:00 Oxygen Flow Rate (L/min) 2 Oxygen Delivery Method Room Air Weight: 198 lb 10.184 oz Body Mass Index (BMI) 34.2 Intake and Output for Last 24 Hours 06/14/19 06/15/19 06/16/19 23:59 23:59 23:59 Intake Total 50 / 445 2440.00 / 2440.00 200 / 200 Balance 50 / 445 2440.00 / 2440.00 200 / 200 Microbiology Past 72 Hours 06/15/19 00:03 Respiratory Panel (PCR) - Final Mucosa - Nasopharyngeal 06/14/19 21:30 Urine Culture - Preliminary Urine, Catheterized Presumptive E. coli 06/14/19 21:30 Streptococcus pneumoniae Antigen (M - Final Urine, Random 06/14/19 21:30 Legionella Antigen - Final Urine, Random Laboratory Tests Past 24 Hrs 06/14/19 06/16/19 21:26 05:40 Hgb 7.9 L Hct 25.9 L Specimen Type ART Sample Site R RADIAL pH 7.45 Bicarbonate Actual 28.2 H POC Total CO2 29 Base Excess 4 H O2 Saturation 95 ABG pCO2 40.3 ABG pO2 73 L Anson Test POS O2 Delivery Device Nasal Can Liter Flow 2.0 Blood Gas Notified Whom ED MD Blood Gas Notified Time 2125 Medical Necessity - Tobacco Use Smoking Status: Never smoker Assessment/Plan This is a 74 years old female patient presented to the emergency room because of reported fever as well as shortness of breath and she was found to have acute COPD exacerbation and acute cystitis. #1 acute COPD exacerbation: She is on IV Rocephin and Zithromax, IV steroids and bronchodilators. Patient reported improvement of her symptoms, pulse ox improved and remained on 2 L of oxygen which is her baseline. This morning, she was 93% on room air. She has been afebrile, no leukocytosis. Pneumococcal and Legionella antigen were negative. Respiratory panel for viruses is negative. Plan to DC IV steroids, start oral prednisone, anticipate discharge back to group home tomorrow. #2 acute cystitis: She is on IV Rocephin. Urine culture revealed presumptive E. coli, final is pending. Blood cultures pending. Plan to continue same treatment. #3 chronic pain syndrome/peripheral neuropathy: Started back on methadone, continue Neurontin. Today, she feels better. #4 hypertension: Blood pressure improved, continue lisinopril, HCTZ and metoprolol. #5 chronic anemia: Today's hemoglobin is 7.9 g/dL this is probably due to dilution as patient received IV fluids. No evidence of active bleeding. Continue iron supplement. #6 depression: Continue Zoloft. #7 hyperlipidemia: Continue statins. #8 DVT prophylaxis: Subcu Lovenox. This note was generated with [employer] dictation software. It may contain incorrect words, spelling, and punctuation that were not noted in checking the note before signing. Code Visit Inpatient E&M: 88383 Subs Hosp L2
[2019-06-16] MEDS: Ferrous Sulfate 325 MG Tablet PO (08:24)
[2019-06-16] MEDS: Gabapentin 100 MG Capsule 200 MG PO ×3 (08:24→17:59)
[2019-06-16] MEDS: Multivitamins,Ther W-Minerals Tablet 1 TABLET PO (08:24)
[2019-06-16] MEDS: Polyethylene Glycol 3350 17 GM PACKET PO (09:34)
[2019-06-16] MEDS: guaiFENesin 1,200 MG Tablet 1200 MG PO ×2 (09:35→21:33)
[2019-06-16] MEDS: Enoxaparin 40 MG/0.4 ML Syringe SC (09:35)
[2019-06-16] MEDS: hydroCHLOROthiazide 25 MG Tablet PO (09:35)
[2019-06-16] MEDS: Metoprolol Tartrate 50 MG Tablet PO ×2 (09:35→21:32)
[2019-06-16] MEDS: Ceftriaxone 1 GM/50 ML BAG IV (09:36)
[2019-06-16] MEDS: Lisinopril 10 MG Tablet PO (09:36)
[2019-06-16] MEDS: Menthol/Lanolin/Calamine/Znox 113 GM Tube 1 APPLIC TOPICAL ×2 (10:43→21:48)
[2019-06-16] MEDS: Methadone 10 MG Tablet PO ×2 (11:50→21:34)
[2019-06-16] MEDS: predniSONE 20 MG Tablet 40 MG PO (11:54)
--- NOTE | 2019-06-16 14:05 | CASEMGMT ---
RAMIRO faxed updates to [facility] at [facility]. Corrie RICHARDS PRODUCTION CONTROL PEGBOARD CLERK
[2019-06-16] MEDS: Pravastatin 40 MG Tablet PO (21:32)
[2019-06-16] MEDS: Sertraline 100 MG Tablet PO (21:33)
[2019-06-17] VITALS (7 sets, daily range): BP systolic 153; BP diastolic 76–77; PULSE 58–75; RESP 18–20; TEMP 36.4–36.8; O2SAT 95–97
[2019-06-17] MEDS: Ipratropium/Albuterol Sulfate 3 ML AMPUL.NEB INHALATION ×2 (07:02→10:25)
--- NOTE | 2019-06-17 08:29 | PCM.TXEXTCAR ---
- Diet 06/14/19 23:44 Diet: Cardiac/Low Cholesterol Food consistency:: Regular Liquid Consistency:: Regular/Thin - Routine Orders/Code Status O2 Liters per Minute: 2 O2 Frequency: Continuous Keep PO Greater than or Equal to (%): 92 Code Status: Full Code - Suggestions for Active Care Change Position every (hours): 3 Hours to sit in a chair: 2 Times a day to sit in chair: 3 - Therapies Weight Bearing: Weight bearing as tolerated Physical Therapy: Eval and Treat Occupational Therapy: Eval and Treat - Allergies/Procedures Done in Hospital Allergies/Adverse Reactions: Allergies amoxicillin [From Augmentin] Adverse Reaction (Verified 06/14/19 20:15) Nausea/Vom/Diarrhea clavulanic acid [From Augmentin] Adverse Reaction (Verified 06/14/19 20:15) Nausea/Vom/Diarrhea nitrofurantoin macrocrystalline [From Macrodantin] Adverse Reaction (Verified 06/14/19 20:15) Vomiting sulfamethoxazole [From Bactrim] Adverse Reaction (Verified 06/14/19 20:15) Nausea/Vom/Diarrhea trimethoprim [From Bactrim] Adverse Reaction (Verified 06/14/19 20:15) Nausea/Vom/Diarrhea - Type of Care/Length of Stay Estimated LOS: Convalescent Care Less Than 30 days Type of Care Needed: Skilled Rehab Potential: Fair Prognosis: Fair - Additional Orders/Day of Discharge H&P will serve as current which was dated: 06/14/19 Day of Discharge: 06/17/19 - Dietary and Speech Recommendations Dietitian Recommendations/Changes: Recommend a diet change to liberal regular diet - non select d/t decreased PO intake. Will add Ensure Enlive 120 ml 4x/day on medpass d/t decreased wild and PO intake. Will add magic cup at lunch for additional nutrition. - Follow Up Care Primary Care Physician: Wolf Berry [Primary Care Provider] - Please follow up with your Primary Care Physician in: 1-2 weeks.
[2019-06-17] MEDS: predniSONE 20 MG Tablet 40 MG PO (08:43)
[2019-06-17] MEDS: Lisinopril 10 MG Tablet PO (08:43)
[2019-06-17] MEDS: Polyethylene Glycol 3350 17 GM PACKET PO (08:43)
[2019-06-17] MEDS: hydroCHLOROthiazide 25 MG Tablet PO (08:43)
[2019-06-17] MEDS: guaiFENesin 1,200 MG Tablet 1200 MG PO (08:43)
[2019-06-17] MEDS: Gabapentin 100 MG Capsule 200 MG PO ×2 (08:44→11:25)
[2019-06-17] MEDS: Multivitamins,Ther W-Minerals Tablet 1 TABLET PO (08:44)
[2019-06-17] MEDS: Metoprolol Tartrate 50 MG Tablet PO (08:44)
[2019-06-17] MEDS: Ferrous Sulfate 325 MG Tablet PO (08:44)
[2019-06-17] MEDS: Enoxaparin 40 MG/0.4 ML Syringe SC (08:45)
[2019-06-17] MEDS: Menthol/Lanolin/Calamine/Znox 113 GM Tube 1 APPLIC TOPICAL (08:45)
[2019-06-17] MEDS: Ceftriaxone 1 GM/50 ML BAG IV (08:48)
--- NOTE | 2019-06-17 10:12 | PHA.DC.MR ---
Pharmacy Service has performed discharge medication reconciliation for this patient. Home Medications Methadone HCl 10 mg PO QHS 10/04/15 Sertraline HCl [Zoloft] 100 mg PO QHS 10/04/15 Metoprolol Tartrate [Lopressor (beta melissa)] 50 mg PO BID 06/10/17 pravastatin 40 mg tablet 40 mg PO QHS 01/17/18 hydrochlorothiazide 25 mg tablet 25 mg PO DAILY 12/03/18 Albuterol Aerosols [Ventolin Aerosols] 2.5 mg INHALATION Q4H PRN PRN 04/21/19 Diclofenac Sodium [Voltaren] 2 gm TP BID 04/21/19 Docusate Sodium [Colace] 100 mg PO QHS 04/21/19 Ergocalciferol (Vitamin D2) [Vitamin D2] 50,000 unit PO UD 04/21/19 Gabapentin [Neurontin] 200 mg PO TIDCM 04/21/19 Guaifenesin/Dextromethorphan [Mucinex Dm ER 1,200-60 mg Tab] 1 ea PO BID 04/21/19 L.acidoph,Paracasei, B.lactis [Probiotic] 1 ea PO BID 04/21/19 Lisinopril [Prinivil] 10 mg PO DAILY 04/21/19 Lorazepam [Ativan] 0.25 mg PO TID PRN PRN 04/21/19 Methadone HCl 10 mg PO DAILY@1200 04/21/19 Methadone HCl 15 mg PO DAILY@0900 04/21/19 Multivitamin with Minerals [Multiple Vitamin] 1 ea PO DAILY 04/21/19 Polyethylene Glycol 3350 [Miralax] 17 gm PO DAILY 04/21/19 Senna [Senokot] 1 tab PO DAILY 04/21/19 ferrous sulfate 325 mg (65 mg iron) tablet 325 mg PO TIDCM 05/26/19 Ipratropium/Albuterol Sulfate [Duoneb] 3 ml INHALATION Q6H.RT 05/29/19 Cephalexin [Keflex] 500 mg PO Q12 #10 cap 06/17/19 Prednisone 10 mg PO DAILY #30 tab 06/17/19 The patient's discharge medication list was reviewed for discrepancies and discrepancies were resolved.
--- NOTE | 2019-06-17 10:27 | CASEMGMT ---
Patient is ready for discharge. Faxed orders to [facility]. RAMIRO called [employer] [facility] and arranged for patient to get picked up at noon via cot. RAMIRO notified patient. She was on the phone with her daughter so she is aware. RAMIRO also notified church secretary, RN, and Yanely at [facility]. Plan: d/c back to [facility] under skilled level of care. 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 [facility] transported patient via cot. Transportation was set up through [employer] [facility]. Corrie RICHARDS MSW
[2019-06-17] MEDS: Methadone 10 MG Tablet PO (11:25)
--- NOTE | 2019-06-17 11:27 | PCM.DC.SUM ---
Discharge Date and Diagnosis Date of Admission: 06/14/19 Date of Discharge: 06/17/19 - Primary Discharge Diagnosis #1 acute COPD exacerbation. #2 E. coli acute cystitis. - Secondary Discharge Diagnosis Chronic Problems (Last Updated 06/15/19 @ 10:01 by Rula Whitehead MD) Chronic obstructive pulmonary disease (Chronic) Chronic back pain (Chronic) Essential (primary) hypertension (Chronic) Cardiomyopathy in diseases classified elsewhere (Chronic) Nonrheumatic tricuspid (valve) insufficiency (Chronic) Palpitations (Chronic) Hyperlipidemia (Chronic) Hospital Course and Treatment Imaging Results: Clinical Impression(s) from Imaging Studies Chest X-Ray 06/14/19 20:50 IMPRESSION: No acute cardiopulmonary findings Basilar atelectasis/scarring Hiatal hernia Electronically Signed: Luiz Cohen DO at 21:27 EDT Tel , Service support , Operations: None Procedures: None Summary of Care Provided: Patient seen and examined on the day of discharge and appeared to be stable to be discharged to the custodial. Her breathing continued to improve every day. All over, she is feeling better. Her vital signs are stable, afebrile. The patient is a 74 year old F presented to the emergency room because of fever and shortness of breath, found to have acute COPD exacerbation and E. coli acute cystitis. Her chest x-ray showed no acute findings. Pneumonia ruled out. She was treated with IV steroids, IV Zithromax and Rocephin as well as bronchodilators. Pneumococcal and Legionella antigen were negative. Respiratory panel for viruses were negative. With treatment, his symptoms improved as well as her oxygen requirement. She required up to 3 L of oxygen and with treatment, she was able to come down to 2 L which is her baseline at the custodial. Blood culture showed no growth up to the time of discharge. She was found to have E. coli acute cystitis which was treated with IV Rocephin. Urine culture revealed E. coli that was sensitive to cephalosporins, resistant to ciprofloxacin and Levaquin. Patient discharged to residential facility in a stable medical condition, discharged on Keflex 500 mg p.o. twice daily for 5 days more, continued with her previous home medications without any changes, discharged on oxygen at 2 L which is her baseline, recommended follow-up with PCP in 1 week. - Physical Exam General: Alert, Oriented x3, Cooperative, No apparent distress HEENT: Atraumatic, PERRLA, EOMI, Normocephalic Oral: Moist Mucosa, No Gingival or Mucosal Lesions/ Ulcerations Neck: Supple, No JVD, Negative Carotid Bruits, Trachea Midline, Thyroid Normal Size and Texture Lungs: Clear to auscultation, No rhonchi, No wheeze, No rales, Diminished Cardiovascular: Regular rate, Regular Rhythm, Normal S1, Normal S2, PMI Normal Abdomen: Bowel Sounds Present, Soft, Non Tender, Non-Distended, No Hepato-splenomegaly, Obese Extremities: No clubbing, No cyanosis, Edema Skin: No rashes, No breakdown Lymphatic: No Cervical, Supraclavicular, or Inguinal Adenopathy Neurological: Cranial nerves II-XII grossly intact, Neuro grossly intact Psych/Mental Status: Normal Affect, Appropriate Vital Signs Temp Pulse Resp BP Pulse Ox 97.5 F L 75 18 153/76 H 95 06/17/19 08:39 06/17/19 08:44 06/17/19 08:39 06/17/19 08:39 06/17/19 08:39 Oxygen Flow Rate (L/min) 2 Oxygen Delivery Method Nasal Cannula Weight: 196 lb 6.91 oz Body Mass Index (BMI) 34.2 Intake and Output for Last 24 Hours 06/15/19 06/16/19 06/17/19 23:59 23:59 23:59 Intake Total 2440.00 / 2440.00 625 / 625 425 / 425 Balance 2440.00 / 2440.00 625 / 625 425 / 425 Microbiology Past 72 Hours 06/14/19 21:30 Urine Culture - Final Urine, Catheterized Presumptive E. coli 06/15/19 00:03 Respiratory Panel (PCR) - Final Mucosa - Nasopharyngeal 06/14/19 21:30 Streptococcus pneumoniae Antigen (M - Final Urine, Random 06/14/19 21:30 Legionella Antigen - Final Urine, Random Home Medications: Medications to take at Discharge Methadone HCl 10 mg PO QHS 10/04/15 Sertraline HCl [Zoloft] 100 mg PO QHS 10/04/15 Metoprolol Tartrate [Lopressor (beta melissa)] 50 mg PO BID 06/10/17 pravastatin 40 mg tablet 40 mg PO QHS 01/17/18 hydrochlorothiazide 25 mg tablet 25 mg PO DAILY 12/03/18 Albuterol Aerosols [Ventolin Aerosols] 2.5 mg INHALATION Q4H PRN PRN 04/21/19 Diclofenac Sodium [Voltaren] 2 gm TP BID 04/21/19 Docusate Sodium [Colace] 100 mg PO QHS 04/21/19 Ergocalciferol (Vitamin D2) [Vitamin D2] 50,000 unit PO UD 04/21/19 Gabapentin [Neurontin] 200 mg PO TIDCM 04/21/19 Guaifenesin/Dextromethorphan [Mucinex Dm ER 1,200-60 mg Tab] 1 ea PO BID 04/21/19 L.acidoph,Paracasei, B.lactis [Probiotic] 1 ea PO BID 04/21/19 Lisinopril [Prinivil] 10 mg PO DAILY 04/21/19 Lorazepam [Ativan] 0.25 mg PO TID PRN PRN 04/21/19 Methadone HCl 10 mg PO DAILY@1200 04/21/19 Methadone HCl 15 mg PO DAILY@0900 04/21/19 Multivitamin with Minerals [Multiple Vitamin] 1 ea PO DAILY 04/21/19 Polyethylene Glycol 3350 [Miralax] 17 gm PO DAILY 04/21/19 Senna [Senokot] 1 tab PO DAILY 04/21/19 ferrous sulfate 325 mg (65 mg iron) tablet 325 mg PO TIDCM 05/26/19 Ipratropium/Albuterol Sulfate [Duoneb] 3 ml INHALATION Q6H.RT 05/29/19 Cephalexin [Keflex] 500 mg PO Q12 #10 cap 06/17/19 Prednisone 10 mg PO DAILY #30 tab 06/17/19 Following Prescrptions Were Given to Patient: Cephalexin [Keflex] 500 mg PO Q12 #10 cap Prescription Printed Prednisone 10 mg PO DAILY #30 tab Prescription Printed Primary Care Physician: Wolf Berry [Primary Care Provider] - Please follow up with your Primary Care Physician in: 1-2 weeks. Disposition: Assisted facility Minutes spent on discharge:: 32 Patient Condition:: Stable Medical Necessity - Tobacco Use Smoking Status: Never smoker Meaningful Use Info Meaningful Use Diagnoses (Choose all that apply): None applicable Code Visit Inpatient E&M: 34203 Disch Hosp
== END 2019-06-17 12:15 | disposition skilled nursing facility (03) | DRG 191 ==
LOC: ED 20:56 → MS3 22:36 → PCU 23:06
PROVIDERS: Admitting Provider Internal Medicine; Emergency Provider Emergency Medicine; Family Provider Family Medicine; PCP Family Medicine; Referring Provider Internal Medicine; Visit Provider Hospitalist
DX: J44.1 Chronic obstructive pulmonary disease with (acute) exacerbation (principal); N30.00 Acute cystitis without hematuria; I42.9 Cardiomyopathy, unspecified; E86.0 Dehydration; G89.4 Chronic pain syndrome; D64.9 Anemia, unspecified; E78.5 Hyperlipidemia, unspecified; F32.9 Major depressive disorder, single episode, unspecified; I10 Essential (primary) hypertension; B96.20 Unspecified Escherichia coli [E. coli] as the cause of diseases classified elsewhere; M54.9 Dorsalgia, unspecified; I36.1 Nonrheumatic tricuspid (valve) insufficiency
CPT/HCPCS: 36415; 36600; 71045; 80048; 81001; 82803; 83605; 84443; 84484; 85014; 85018; 85025; 87040; 87086; 87088; 87186; 87449; 87633; 93005; 94640; 94667; 94668; 97162; 97166; 97530; 99285; J7030; A4216

== ENCOUNTER 2019-08-13 16:51 | Inpatient (IN) | payer MEDICARE, OTHER, SELFPAY ==
[2019-08-13] VITALS (8 sets, daily range): BP systolic 117–155; BP diastolic 57–105; PULSE 67–84; RESP 17–24; TEMP 36.9–39.1; O2SAT 92–97; BMI 41.4; BMI 39.7
--- NOTE | 2019-08-13 17:23 | EKG12_ITS ---
Test Reason : ALT LOC Blood Pressure : / mmHG Vent. Rate : 068 BPM Atrial Rate : 068 BPM P-R Int : 162 ms QRS Dur : 078 ms QT Int : 356 ms P-R-T Axes : 045 031 003 degrees QTc Int : 378 ms Atrial Fibrillation Low voltage QRS Nonspecific ST abnormality Abnormal ECG Confirmed by CHRISTEN GOODMAN, KAYE ([id number]), general expeditor TYSON HERNANDEZ ([id number]) on 08/17/2019 11:48:01 AM Referred By: Tevin Marie Confirmed By:KAYE VELÁSQUEZ MD
--- NOTE | 2019-08-13 17:23 | CT_ITS ---
STUDY: CT BRAIN WITHOUT CONTRAST REASON FOR EXAM: Female, 74 years old. Confusion and altered level consciousness RADIATION DOSAGE (If Supplied By Facility): CTDIvol = ( 44.99 ) mGy, DLP = ( 829.85 ) mGycm TECHNIQUE: Transaxial CT imaging of the brain was performed without administration of intravenous contrast material. Individualized dose optimization techniques were used for this CT. COMPARISON: No relevant priors. FINDINGS: Normal soft tissue structures. Normal calvarium. Mild atrophy and periventricular white matter ischemic changes.. Normal basal ganglia and thalami. Normal brainstem. Normal cerebellum. Empty sella deformity likely of no significance. There is no intracranial hemorrhage. There are no findings of an acute ischemic infarction. Postop changes of the orbits. Normal visualized paranasal sinuses. CT/Brain/Head without Contrast IMPRESSION: Mild atrophy and periventricular white matter ischemic changes. No evidence for acute bleed. If concern for acute infarct MRI recommended Electronically Signed: Jan Pérez MD at 20:15 EST , Service support ,
--- NOTE | 2019-08-13 17:30 | RAD_ITS ---
STUDY: X-RAY CHEST REASON FOR EXAM: Female, 74 years old. Altered level consciousness TECHNIQUE: AP portable COMPARISON: June 14, 2019 FINDINGS: There is minor discoid atelectasis or scarring in both lower lobes.. There is no demonstrated pleural abnormality. Heart is mildly enlarged.. Normal mediastinum and garrett. Normal visualized pulmonary arteries. Normal visualized aortic arch and descending thoracic aorta. Dorsal spine demonstrates scoliosis and degenerative change.. Normal visualized ribs, and clavicles. There are degenerative changes of the shoulders. Postsurgical changes status post multilevel cervical fusion. There is moderate size hiatal hernia. There is no demonstrated abnormality of the visualized soft tissue structures of the upper abdomen. No significant change since prior exam RAD/Chest 1 View (Portable) IMPRESSION: Diminished inspiratory effort and mild bibasilar discoid atelectasis or scarring. No acute cardiopulmonary Electronically Signed: Jan Pérez MD at 17:59 EST , Service support ,
[2019-08-13 17:53] LABS: Absolute Lymphocyte Count 0.92 X10^3/uL (0.83-4.51); Absolute Neutrophil Count 7.8 X10^3/uL (2.0-7.7); Basophil# 0.02 X10^3/uL; Basophil% 0.2 % (0-1); Eosinophil# 0.63 X10^3/uL; Eosinophils% 6.3 % (0-5); Hematocrit 33.2 % (37-47); Hemoglobin 10.4 g/dL (12.0-15.0); Lymphocyte # 0.92 X10^3/ul (4.0); Lymphocyte % 9.2 % (19-41); Mean Corp Hgb Conc 31.3 g/dL (32-36); Mean Corpuscular Hgb 30.8 pg (27.0-32.0); Mean Corpuscular Volume 98.2 fL (81-99); Mean Platelet Vol. 10.3 fl (6.2-12.0); NRBC Flagged by Analyzer 0 % (0-5); Neutrophil # 7.79 X10^3/uL (2.7-7.7); Neutrophil % 78.4 % (47-70); Platelet Count 282 K/mm3 (150-450); RBC Distribution Width CV 14.6 % (11.6-14.6); RBC Distribution Width SD 53.4 fl (35.1-43.9); Red Blood Count 3.38 M/mm3 (4.2-5.4)
[2019-08-13] MEDS: 0.9% Normal Saline 1,000 ML 1000 ML IV (17:54)
[2019-08-13 17:55] LABS: Base Excess 6 mmol/L (-2 to +2); Bicarbonate 30.3 mmol/L (22-26); Blood Gas Specimen Type ART; O2 Delivery Device Nasal Can; PO2 58 mmHG (75-100); SITE R Radial; SO2 90 % (95-99); Time Given 1749; Total Carbon Dioxide 32 mmol/L; pCO2 47.1 mmHg (35-45); pH 7.42 (7.35-7.45)
[2019-08-13 18:14] LABS: Mucous, Urine 0 SEEN /hpf (<or=2+)
[2019-08-13 18:17] LABS: Color, Urine Yellow (Yellow); Glucose, Dipstick Normal (Normal); Ketone-Dipstick Negative (Negative); Leukocyte Esterase-Dipstick 100 /ul (Negative); Nitrite-Dipstick Positive (Negative); Occult Blood-Urine 50 /ul (Negative); Protein-Dipstick 30 mg/dl (Negative); Urine Bilirubin Dipstick Negative (Negative); Urine Urobilinogen Normal (Normal)
--- NOTE | 2019-08-13 18:20 | ED.DCSUM_ITS ---
- ER Visit Summary Date of Service: 08/13/19 Chief Complaint: Altered mental status History of Present Illness: The patient is a 74 F presenting with altered mental status. Per jail staff patient has had decreased responsiveness today. She has history of recent treated UTI. She typically is able get around in her motorized chair and have conversations. Now she will open eyes to voice and answer intermittent questions. No known trauma. History is otherwise limited. Physical Examination: Vitals are stable. Patient is afebrile. Alert no acute distress. HEENT exam dry mucous membranes Neck is supple. No meningismus Lungs are clear and equal bilaterally. Heart is regular rate and rhythm. Abdomen is soft nontender nondistended. Extremities are unremarkable. Skin is warm and dry. No focal neurologic deficit. Opens eyes to voice Remainder of exam is unremarkable. Emergency Department Course and Treatment: EKG is sinus rhythm rate of 68 with no acute ischemic changes. CBC shows hemoglobin 10.4. Chest x-ray shows no acute process. Chemistries show BUN 39, creatinine 1.17. Urinalysis shows 10- 25 white blood cells, 5-10 red blood cells. Troponin is negative. Lactic acid is normal. Blood and urine cultures were sent. She was given Rocephin IV. CT head shows mild atrophy and periventricular white matter ischemic changes. No evidence for acute bleed. On reevaluation she is now more awake and alert. Discussed with the hospitalist for admission. Disposition: Admission Impression: UTI, delirium This note was generated with [employer] dictation software. It may contain incorrect words, spelling, and punctuation that were not noted in review of the chart prior to signing ED Disposition - Plan for ED Patient: Disposition: Acute Care [facility]
[2019-08-13 18:38] LABS: Urine Clarity Sl Cldy (Clear)
[2019-08-13 18:38] LABS: Anion Gap 5 (5-15); BUN 39 mg/dL (7-18); BUN/Creat Ratio 33.3 RATIO (10-20); Calcium,Total 9.2 mg/dL (8.5-10.1); Chloride 100 mmol/L (98-107); Creatinine, Serum 1.17 mg/dL (0.55-1.02); EST Glomerular Filtration Rate 48 mL/min (>60); Est Glom Filt Rate - Afr Amer 58 mL/min (>60); Glucose 101 mg/dL (74-106); Potassium 3.8 mmol/L (3.5-5.1); Sodium Level 137 mmol/L (136-145)
[2019-08-13 18:39] LABS: Amorphous Sediment 1+ URATE; Bacteria RARE /hpf (None Seen); Red Blood Cells-Urine 5-10 SEEN /hpf (0-5); Squamous Epithelial Cells - UA 0-5 SEEN /hpf (5-10); White Blood Cells 10-25 SEEN /hpf (0-5)
[2019-08-13 18:43] LABS: Lactic Acid 1.7 mmol/L (0.4-1.9)
[2019-08-13] MEDS: Ceftriaxone 1 GM/50 ML BAG IV (19:53)
--- NOTE | 2019-08-13 20:31 | PCM.HP.STD ---
Problem List (1) Sepsis Status: Acute (2) Cystitis Status: Acute (3) Chronic obstructive pulmonary disease Status: Chronic Qualifiers: COPD type: unspecified COPD Qualified Code(s): J44.9 - Chronic obstructive pulmonary disease, unspecified (4) Chronic back pain Status: Chronic Qualifiers: Back pain location: back pain in unspecified location Back pain laterality: unspecified Qualified Code(s): M54.9 - Dorsalgia, unspecified; G89.29 - Other chronic pain (5) Essential (primary) hypertension Status: Chronic (6) Cardiomyopathy in diseases classified elsewhere Status: Chronic (7) Nonrheumatic tricuspid (valve) insufficiency Status: Chronic (8) Palpitations Status: Chronic (9) Hyperlipidemia Status: Chronic History of Present Illness Date of Admission: 08/13/19 Chief Complaint: altered mental status The patient is a 74 year old F with a significant history of arthritis; COPD on home oxygen; chronic pain; hypertension; who presented to the emergency department with altered mental status. Patient [facility] in a prison. skilled nursing called family and reported that patient's blood pressure was 79/63; she had hands and arms discoloration; she had a fever of 100.7 F; she was weak and lethargic and slumped over in a wheelchair and knocked some things around. Family reported that the patient's is not as interactive as she used to be. Per family the patient has had a history of multiple UTIs and before presentation was on antibiotics for UTI. At the emergency department patient was found to have abnormal urinalysis. Nurse reports redness of the patient's right hand. Patient had IV in her right antecubital area that did not show signs of infiltration. Family reports that patient left hand appeared blue and this has been recurrent. Family tries to associate left hand blueness with past and present UTIs. At emergency department patient was found to have a maximum temperature of 102.3 F. Also she had respiratory rate of more than 20. Past Medical History Past Medical History (Chronic Problems): Chronic Problems (Last Reviewed 08/13/19 @ 22:38 by Tevin Marie MD) Chronic obstructive pulmonary disease (Chronic) Chronic back pain (Chronic) Essential (primary) hypertension (Chronic) Cardiomyopathy in diseases classified elsewhere (Chronic) Nonrheumatic tricuspid (valve) insufficiency (Chronic) Palpitations (Chronic) Hyperlipidemia (Chronic) Medical History: Medical History (Last Reviewed 08/13/19 @ 22:44 by Tevin Marie MD) Essential (primary) hypertension (Chronic) I10 Cardiomyopathy in diseases classified elsewhere (Chronic) I43 Nonrheumatic tricuspid (valve) insufficiency (Chronic) I36.1 Hyperlipidemia (Chronic) E78.5 Anxiety F41.9 Arthritis M19.90 Depression F32.9 MRSA (methicillin resistant staph aureus) culture positive Z22.322 Vitamin D deficiency E55.9 COPD (chronic obstructive pulmonary disease) J44.9 DDD (degenerative disc disease) HTN (hypertension) I10 Hemorrhoids K64.9 PVD (peripheral vascular disease) I73.9 Venous insufficiency of right leg I87.2 Chronic pain (Inactive) G89.29 Foot drop, right (Inactive) M21.371 H/O open leg wound (Inactive) Z87.828 Malnutrition (Inactive) E46 Non-pressure chronic ulcer of right lower leg with fat layer exposed (Inactive) L97.912 Stage III pressure ulcer of right ankle (Inactive) L89.513 Venous ulcer of left lower extremity without varicose veins (Inactive) I87.2, L97.929 Allergies amoxicillin [From Augmentin] Adverse Reaction (Verified 08/13/19 17:02) Nausea/Vom/Diarrhea clavulanic acid [From Augmentin] Adverse Reaction (Verified 08/13/19 17:02) Nausea/Vom/Diarrhea nitrofurantoin macrocrystalline [From Macrodantin] Adverse Reaction (Verified 08/13/19 17:02) Vomiting sulfamethoxazole [From Bactrim] Adverse Reaction (Verified 08/13/19 17:02) Nausea/Vom/Diarrhea trimethoprim [From Bactrim] Adverse Reaction (Verified 08/13/19 17:02) Nausea/Vom/Diarrhea Home Medications: Ambulatory Orders Medication Instructions Recorded Methadone HCl 10 mg PO BID 10/04/15 Sertraline HCl [Zoloft] 100 mg PO QHS 10/04/15 Metoprolol Tartrate [Lopressor 50 mg PO BID 06/10/17 (beta melissa)] pravastatin 40 mg tablet 40 mg PO QHS 01/17/18 hydrochlorothiazide 25 mg tablet 25 mg PO DAILY 12/03/18 Diclofenac Sodium [Voltaren] 2 gm TP BID 04/21/19 Docusate Sodium [Colace] 100 mg PO QHS 04/21/19 Ergocalciferol (Vitamin D2) 50,000 unit PO MO 04/21/19 [Vitamin D2] Gabapentin [Neurontin] 200 mg PO TIDCM 04/21/19 L.acidoph,Paracasei, B.lactis 1 ea PO BID 04/21/19 [Probiotic] Lisinopril [Prinivil] 10 mg PO DAILY 04/21/19 Methadone HCl 10 mg PO DAILY@1200 04/21/19 Methadone HCl 15 mg PO DAILY@0900 04/21/19 Multivitamin with Minerals 1 ea PO DAILY 04/21/19 [Multiple Vitamin] Polyethylene Glycol 3350 [Miralax] 17 gm PO DAILY 04/21/19 Senna [Senokot] 1 tab PO DAILY 04/21/19 ferrous sulfate 325 mg (65 mg 325 mg PO TIDCM 05/26/19 iron) tablet Fluticasone/Salmeterol [Advair 1 ea IH BID 08/13/19 250-50 Diskus] Nitrofurantoin Monohyd/M-Cryst 100 mg PO BID 08/13/19 [Macrobid 100 mg Capsule] Sodium Chloride [Saline Nasal 1 spray NS DAILY 08/13/19 [place]] Surgical History: Surgical History (Last Reviewed 08/13/19 @ 22:44 by Tevin Marie MD) History of back surgery Z98.890 History of neck surgery Z98.890 History of hip replacement Z96.649 History of hysterectomy Z90.710 History of incisional hernia repair Z98.890, Z87.19 Hx of repair of rotator cuff Z98.890 Surgical History: total hip arthroplasty - Right, total knee arthroplasty - Right, - - Lumbar laminectomy Psychiatric History: Anxiety, Depression 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 Lives: Long Term Smoking Status: Never smoker Alcohol: None - *Family History Maternal Family History: Family History (Last Reviewed 08/13/19 @ 22:38 by Tevin Marie MD) Father Hypertension Mother Diabetes Hypertension Brother Diabetes Brother Cancer Sister Hypertension History Items: Diabetes, Heart Disease, Hypertension Paternal Family History: Family History (Last Reviewed 08/13/19 @ 22:38 by Tevin Marie MD) Father Hypertension Mother Diabetes Hypertension Brother Diabetes Brother Cancer Sister Hypertension History Items: Heart Disease, Hypertension Review of Systems Constitutional: Reports: Anorexia, Fever, Malaise, Weakness, Fatigue. Denies: Weight Change HEENT: Denies: Head Aches, Sinus Congestion, Sinus Drainage Cardiovascular: Denies: Chest Pain, Palpitations Respiratory: Denies: Cough, Shortness of breath at rest, Sputum production Gastrointestinal: Denies: Abdominal Pain, Nausea, Vomiting Genitourinary: Denies: Dysuria Musculoskeletal: Denies: Joint Pain, Joint Tenderness Skin: Denies: Rash, Wounds Neurological: Reports: Confusion. Denies: Focal weakness, Numbness, Tingling Psychiatric: Denies: Anxiety, Depression, Homicidal Ideations, Suicidal Ideations Hematologic/ Lymphatic: Denies: Easy Bruising, Easy Bleeding VTE Information - Inpt Only VTE Present on Admission: No VTE Mechan Device Prophylaxis: None VTE Pharm Prophylaxis ordered?: Yes Patient Problems: Active and Suspected Problems (Last Reviewed 08/13/19 @ 22:38 by Tevin Marie MD) Sepsis (Acute) Cystitis (Acute) - Physical Exam Vitals/I&O's: Vital Signs Temp Pulse Resp BP Pulse Ox 99.5 F H 67 19 H 120/57 L 95 08/13/19 19:36 08/13/19 19:36 08/13/19 19:36 08/13/19 19:36 08/13/19 19:36 Oxygen Flow Rate (L/min) 2 Oxygen Delivery Method Nasal Cannula Weight: 96.3 kg Body Mass Index (BMI) 41.4 General: Alert, Confused HEENT: Atraumatic, PERRLA, EOMI, Normocephalic Neck: Supple, No JVD, Negative Carotid Bruits Lungs: Clear to auscultation, Normal air movement, No rhonchi, No wheeze, No rales Cardiovascular: Regular rate, No murmurs Abdomen: Bowel Sounds Present, Soft, Non Tender Extremities: Capillary Refill Less than 3 Seconds, Edema - Bilateral lower extremities Skin: - - Redness of right hand; cyanosis of left hand. Musculoskeletal: No Tenderness to Palpation of Joints or Extremities Neurological: Cranial nerves II-XII grossly intact Psych/Mental Status: Normal Affect, Appropriate Laboratory Results 08/13/19 17:23: WBC 10.0, RBC 3.38 L, Hgb 10.4 L, Hct 33.2 L, MCV 98.2, MCH 30.8, MCHC 31.3 L, RDW Std Deviation 53.4 H, RDW Coeff of Zach 14.6, Plt Count 282, MPV 10.3, Immature Gran % (Auto) 0.900, Neut % (Auto) 78.4 H, Lymph % (Auto) 9.2 L, [place] % (Auto) 5.0, Eos % (Auto) 6.3 H, Baso % (Auto) 0.2, Absolute Neuts (auto) 7.8 H, Absolute Lymphs (auto) 0.92, Nucleated RBC % 0 08/13/19 17:23: Sodium 137, Potassium 3.8, Chloride 100, Carbon Dioxide 32.0, Anion Gap 5, BUN 39 H, Creatinine 1.17 H, Estim Creat Clear Calc 30.30, Est GFR (MDRD) Af Amer 58 L, Est GFR (MDRD) Non-Af 48 L, BUN/Creatinine Ratio 33.3 H, Glucose 101, Calcium 9.2, Troponin I < 0.015 08/13/19 17:23: Lactic Acid 1.7 08/13/19 17:50: Specimen Type ART, Sample Site R Radial, pH 7.42, Bicarbonate Actual 30.3 H, POC Total CO2 32, Base Excess 6 H, O2 Saturation 90 L, ABG pCO2 47.1 H, ABG pO2 58 L, O2 Delivery Device Nasal Can, Liter Flow 2.0, Blood Gas Notified Whom ED , Blood Gas Notified Time 1942 08/13/19 18:00: Urine Color Yellow, Urine Clarity Sl Cldy, Urine pH 6.0, Ur Specific [place] 1.020, Urine Protein 30 H, Urine Glucose (UA) Normal, Urine Ketones Negative, Urine Occult Blood 50 H, Urine Nitrite Positive H, Urine Bilirubin Negative, Urine Urobilinogen Normal, Ur Leukocyte Esterase 100 H, Urine RBC 5-10 SEEN, Urine WBC 10-25 SEEN, Ur Squamous Epith Cells 0-5 SEEN, Amorphous Sediment 1+ URATE, Urine Bacteria RARE, Urine Mucus 0 SEEN Assessment/Plan All Active Problems (Last Reviewed 08/13/19 @ 22:38 by Tevin Marie MD) Sepsis (Acute) Cystitis (Acute) The patient is a 74 year old F with a significant history of arthritis; COPD on home oxygen; chronic pain; hypertension; who presented to the emergency department with altered mental status; abnormal urinalysis; T-max of 102.3 Fahrenheit; respiratory rate of more than at 20 consistent with sepsis secondary to acute complicated recurrent cystitis. Sepsis secondary to acute complicated recurrent cystitis. Lactic acid: 1.7 RR ~ Highest of 24 T-max 102.3F Abnormal urinalysis Blood culture ?2 is pending Urine culture is pending Antibiotics: Ceftriaxone was started emergency department. Continue ceftriaxone 1 g every 12 hours. IV hydration: Received IV hydration emergency department. Because patient has had multiple UTIs in her family was requesting infectious disease consult. Will consult infectious disease accordingly. If patient has not had imaging in the past consider imaging. Upon discharge consider suppressive therapy. Also family wanted a urology consult. Discussed with family that upon discharge patient can see urologist; deferred to rounding physician. Trend CBC and BMP. Tylenol PRN for fever. Chronic pain Because of acute encephalopathy will de-escalate home methadone. Diclofenac continued Neurontin continued Bilateral leg edema Kerlix Roll and gaetano wrap to bilateral lower extremities and elevate bilateral lower extremities when in bed. Hypertension On presentation her blood pressure was not within goal Lisinopril and hydrochlorothiazide continued Trend blood pressure and adjust blood pressure medication Depression/anxiety Zoloft continued COPD On home ICS?LABA. Continued with therapeutic interchange at the hospital. DVT prophylaxis Subcutaneous Lovenox Code Visit Inpatient E&M: 11496 Init Hosp L3
[2019-08-13] MEDS: Acetaminophen 325 MG Tablet 650 MG PO (22:29)
[2019-08-13] MEDS: Metoprolol Tartrate 50 MG Tablet PO (22:30)
[2019-08-13] MEDS: Pravastatin 40 MG Tablet PO (22:30)
[2019-08-13] MEDS: Sertraline 100 MG Tablet PO (22:30)
[2019-08-13] MEDS: Docusate Sodium 100 MG Capsule PO (22:31)
[2019-08-14] VITALS (12 sets, daily range): BP systolic 80–139; BP diastolic 26–73; PULSE 51–89; RESP 16–20; TEMP 36.5–38; O2SAT 93–100
[2019-08-14] MEDS: 0.9% Saline Lock 10 ML Syringe IV ×4 (00:34→23:01)
[2019-08-14] MEDS: 0.9% Normal Saline 1,000 ML 500 ML IV ×2 (00:34→02:38)
[2019-08-14 05:18] LABS: Absolute Lymphocyte Count 0.84 X10^3/uL (0.83-4.51); Absolute Neutrophil Count 3.4 X10^3/uL (2.0-7.7); Basophil# 0.02 X10^3/uL; Basophil% 0.4 % (0-1); Eosinophil# 0.44 X10^3/uL; Eosinophils% 8.6 % (0-5); Hemoglobin 8.3 g/dL (12.0-15.0); Lymphocyte # 0.84 X10^3/ul (4.0); Lymphocyte % 16.5 % (19-41); Mean Corp Hgb Conc 30.7 g/dL (32-36); Mean Corpuscular Hgb 30.3 pg (27.0-32.0); Mean Corpuscular Volume 98.5 fL (81-99); Mean Platelet Vol. 9.1 fl (6.2-12.0); Monocyte# 0.32 X10^3/uL; Monocyte% 6.3 % (0-10); NRBC Flagged by Analyzer 0 % (0-5); Neutrophil # 3.44 X10^3/uL (2.7-7.7); Neutrophil % 67.6 % (47-70); Platelet Count 195 K/mm3 (150-450); RBC Distribution Width CV 14.7 % (11.6-14.6); RBC Distribution Width SD 52.9 fl (35.1-43.9); Red Blood Count 2.74 M/mm3 (4.2-5.4); White Blood Count 5.1 K/mm3 (4.4-11.0)
[2019-08-14 05:57] LABS: Anion Gap 4 (5-15); BUN 32 mg/dL (7-18); Calcium,Total 7.6 mg/dL (8.5-10.1); Chloride 106 mmol/L (98-107); Creatinine, Serum 0.91 mg/dL (0.55-1.02); EST Glomerular Filtration Rate 64 mL/min (>60); Est Glom Filt Rate - Afr Amer 77 mL/min (>60); Estimated Creatinine Clearance 38.96 ml/min; Glucose 92 mg/dL (74-106); Potassium 3.1 mmol/L (3.5-5.1); Sodium Level 140 mmol/L (136-145)
[2019-08-14] MEDS: Budesonide Respules 0.5 MG/2 ML AMPUL.NEB. INHALATION ×2 (06:59→17:32)
[2019-08-14] MEDS: Albuterol 2.5 MG/3 ML VIAL.NEB. INHALATION ×3 (06:59→17:32)
[2019-08-14] MEDS: Ferrous Sulfate 325 MG Tablet PO ×3 (07:58→17:58)
[2019-08-14] MEDS: Multivitamins,Ther W-Minerals Tablet 1 TABLET PO (07:59)
[2019-08-14] MEDS: Enoxaparin 40 MG/0.4 ML Syringe SC (09:08)
[2019-08-14] MEDS: Sodium Chloride 0.65% 1 SPRAY SPRAY.BTL NASAL (09:09)
[2019-08-14] MEDS: Ceftriaxone 1 GM/50 ML BAG IV ×2 (09:11→22:35)
--- NOTE | 2019-08-14 10:47 | CASEMGMT ---
Social Work Note Pt is listed as being from [facility]. Pt came to [facility] with altered mental status is alert and orientated x2. Pt's daughter Naina is listed as HCPOA. RAMIRO placed a call to Naina. Naina confirms pt is from [facility] and plan is to return there at discharge. RAMIRO placed a call to Yanely at [facility]. 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 RAMIRO faxed updated clinicals to [facility]. RAMIRO placed green sheet and transportation form on pt's chart. 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
--- NOTE | 2019-08-14 12:20 | CASEMGMT ---
Healthcare POA form in summary tab of [facility], with living will provision initialed. Naina Willis is listed as medical POA. RUBEN Mckeon
--- NOTE | 2019-08-14 12:48 | PCM.PN.HOSP ---
<Mert Paulino - Last Filed: 08/14/19 12:48> Patient Problems: Active and Suspected Problems (Last Updated 08/14/19 @ 09:36 by Rula Whitehead MD) Sepsis (Acute) Cystitis (Acute) Reason for Visit: confusion Subjective: Pt more alert and communicative, A/O x3 today. No fever/chills overnight. No new urinary symptoms. Chronic pain is controlled despite no AM dose of gabapentin/methadone. Plan to resume tomorrow if mental status intact. Pt has not seen urology in the past. Vitals/I&O's: Vital Signs Temp Pulse Resp BP Pulse Ox 98.1 F 80 18 123/73 H 98 08/14/19 09:00 08/14/19 09:00 08/14/19 10:00 08/14/19 09:00 08/14/19 09:00 Oxygen Flow Rate (L/min) 2 Oxygen Delivery Method Room Air Weight: 203 lb 7.787 oz Body Mass Index (BMI) 39.7 Intake and Output for Last 24 Hours 08/12/19 08/13/19 08/14/19 23:59 23:59 23:59 Intake Total 1050 / 1550 2550 / 2550 Output Total 200 / 200 Balance 1050 / 1550 2350 / 2350 General: Alert, Oriented x3, Cooperative HEENT: Atraumatic, PERRLA, EOMI, Normocephalic Neck: Supple, No JVD, Negative Carotid Bruits Lungs: Clear to auscultation, Normal air movement Cardiovascular: Regular rate, No murmurs Abdomen: Bowel Sounds Present, Soft, Non Tender, Obese Extremities: No edema, Capillary Refill Less than 3 Seconds Skin: No rashes, No breakdown Musculoskeletal: No Tenderness to Palpation of Joints or Extremities Neurological: Cranial nerves II-XII grossly intact Psych/Mental Status: Normal Affect, Appropriate, Alert and oriented to time, place, person, mood and affect Laboratory Results 08/13/19 17:23: WBC 10.0, RBC 3.38 L, Hgb 10.4 L, Hct 33.2 L, MCV 98.2, MCH 30.8, MCHC 31.3 L, RDW Std Deviation 53.4 H, RDW Coeff of Zach 14.6, Plt Count 282, MPV 10.3, Immature Gran % (Auto) 0.900, Neut % (Auto) 78.4 H, Lymph % (Auto) 9.2 L, [place] % (Auto) 5.0, Eos % (Auto) 6.3 H, Baso % (Auto) 0.2, Absolute Neuts (auto) 7.8 H, Absolute Lymphs (auto) 0.92, Nucleated RBC % 0 08/13/19 17:23: Sodium 137, Potassium 3.8, Chloride 100, Carbon Dioxide 32.0, Anion Gap 5, BUN 39 H, Creatinine 1.17 H, Estim Creat Clear Calc 30.30, Est GFR (MDRD) Af Amer 58 L, Est GFR (MDRD) Non-Af 48 L, BUN/Creatinine Ratio 33.3 H, Glucose 101, Calcium 9.2, Troponin I < 0.015 08/13/19 17:23: Lactic Acid 1.7 08/13/19 17:50: Specimen Type ART, Sample Site R Radial, pH 7.42, Bicarbonate Actual 30.3 H, POC Total CO2 32, Base Excess 6 H, O2 Saturation 90 L, ABG pCO2 47.1 H, ABG pO2 58 L, O2 Delivery Device Nasal Can, Liter Flow 2.0, Blood Gas Notified Whom ED , Blood Gas Notified Time 1749 08/13/19 18:00: Urine Color Yellow, Urine Clarity Sl Cldy, Urine pH 6.0, Ur Specific Kathleen 1.020, Urine Protein 30 H, Urine Glucose (UA) Normal, Urine Ketones Negative, Urine Occult Blood 50 H, Urine Nitrite Positive H, Urine Bilirubin Negative, Urine Urobilinogen Normal, Ur Leukocyte Esterase 100 H, Urine RBC 5-10 SEEN, Urine WBC 10-25 SEEN, Ur Squamous Epith Cells 0-5 SEEN, Amorphous Sediment 1+ URATE, Urine Bacteria RARE, Urine Mucus 0 SEEN 08/14/19 05:05: Sodium 140, Potassium 3.1 L, Chloride 106, Carbon Dioxide 30.0, Anion Gap 4 L, BUN 32 H, Creatinine 0.91, Estim Creat Clear Calc 38.96, Est GFR (MDRD) Af Amer 77, Est GFR (MDRD) Non-Af 64, BUN/Creatinine Ratio 35.0 H, Glucose 92, Calcium 7.6 L 08/14/19 05:05: WBC 5.1, RBC 2.74 L, Hgb 8.3 L, Hct 27.0 L, MCV 98.5, MCH 30.3, MCHC 30.7 L, RDW Std Deviation 52.9 H, RDW Coeff of Zach 14.7 H, Plt Count 195, MPV 9.1, Immature Gran % (Auto) 0.600, Neut % (Auto) 67.6, Lymph % (Auto) 16.5 L, [place] % (Auto) 6.3, Eos % (Auto) 8.6 H, Baso % (Auto) 0.4, Absolute Neuts (auto) 3.4, Absolute Lymphs (auto) 0.84, Nucleated RBC % 0 Current Medications Acetaminophen (Tylenol) 650 mg PO Q6H PRN PRN PRN Reason: Pain Score 1-10/Temp > 100.7 F Last Admin: 08/13/19 22:29 Dose: 650 mg Documented by: Albuterol Sulfate (Ventolin Aerosols) 2.5 mg INHALATION Q6HWA.RT [facility] Last Admin: 08/14/19 06:59 Dose: 2.5 mg Documented by: Budesonide (Pulmicort Aerosol) 0.5 mg INHALATION Q12H.RT [facility] Last Admin: 08/14/19 06:59 Dose: 0.5 mg Documented by: Docusate Sodium (Colace) 100 mg PO QHS [facility] Last Admin: 08/13/19 22:31 Dose: 100 mg Documented by: Enoxaparin Sodium (Lovenox) 40 mg SC DAILY [facility] Last Admin: 08/14/19 09:08 Dose: 40 mg Documented by: Ergocalciferol (Vitamin D) 50,000 unit PO Mo@1000 [facility] Ferrous Sulfate (Ferrous Sulfate) 325 mg PO TIDCM [facility] Last Admin: 08/14/19 07:58 Dose: 325 mg Documented by: Glucagon () 1 mg IM .X1 PRN PRN Reason: Hypoglycemia Ceftriaxone Sodium (Rocephin) 1 gm in 50 mls @ 100 mls/hr IV Q12 [facility] Last Infusion: 08/14/19 09:41 Dose: Infused Documented by: Dextrose (Dextrose 10%-Water) 250 mls @ 999 mls/hr IV X1 PRN; Protocol PRN Reason: HYPOGLYCEMIA Sodium Chloride () 250 mls @ 15 mls/hr IV .[id number] PRN PRN Reason: Saline Flush Lactobacillus Acidophilus (Acidophilus) 1 tablet PO BID [facility] Last Admin: 08/14/19 09:08 Dose: 1 tablet Documented by: Multivitamins/Minerals (Multivitamin With Minerals) 1 tablet PO DAILYCM [facility] Last Admin: 08/14/19 07:59 Dose: 1 tablet Documented by: Ondansetron HCl (Zofran) 4 mg IV Q8H PRN PRN PRN Reason: Nausea Polyethylene Glycol (Miralax) 17 gm PO DAILY [facility] Last Admin: 08/14/19 06:45 Dose: Not Given Documented by: Pravastatin Sodium (Pravachol) 40 mg PO QHS [facility] Last Admin: 08/13/19 22:30 Dose: 40 mg Documented by: Senna (Senokot) 1 tablet PO DAILY [facility] Last Admin: 08/14/19 06:45 Dose: Not Given Documented by: Sertraline HCl (Zoloft) 100 mg PO QHS [facility] Last Admin: 08/13/19 22:30 Dose: 100 mg Documented by: Sodium Chloride ([place] Nasal Schaller) 1 spray NASAL DAILY [facility] Last Admin: 08/14/19 09:09 Dose: 1 spray Documented by: Sodium Chloride () 10 - 40 ml IV UD PRN PRN Reason: SALINE FLUSH Last Admin: 08/14/19 09:12 Dose: 10 ml Documented by: STROKE Vital Signs/Narrative: Vital Signs Temp Pulse Resp BP Pulse Ox 08/14/19 10:00 18 08/14/19 09:00 98.1 F 80 18 123/73 H 98 Medical Necessity - Tobacco Use Smoking Status: Never smoker Assessment/Plan All Active Problems (Last Updated 08/14/19 @ 09:36 by Rula Whitehead MD) Sepsis (Acute) Cystitis (Acute) 1. Acute metabolic encephalopathy 2/2 acute sepsis 2/2 acute, recurrent UTI - improving on rocephin. Wait for final cultures. Pt would benefit from urology referral as outpatient to discuss chronic prophylactic therapy for UTI. Hx Enterococcus, E coli, Proteus with different sensitivities. T max 102.3 @ 2156, no fever so far today. No leukocytosis. 2. Chronic pain syndrome, severe LE neuropathy, DDD - resume chronic pain meds tomorrow AM if mentation stable. 3. COPD - stable, continue prn aerosols, incentive spirometer. CXR with atelectasis 4. Depression / Anxiety - home meds 5. HTN - stable 6. Obesity - c/s triage rn DVT ppx: Lovenox Discharge planning: Return to SNF This patient was seen by Mert Paulino PA-C under the supervision of Doctor Charley. <Rula Whitehead E - Last Filed: 08/14/19 14:31> Vitals/I&O's: Vital Signs Temp Pulse Resp BP Pulse Ox 98.1 F 89 16 123/73 H 98 08/14/19 09:00 08/14/19 13:14 08/14/19 13:14 08/14/19 09:00 08/14/19 09:00 Oxygen Flow Rate (L/min) 2 Oxygen Delivery Method Room Air Weight: 203 lb 7.787 oz Body Mass Index (BMI) 39.7 Intake and Output for Last 24 Hours 08/12/19 08/13/19 08/14/19 23:59 23:59 23:59 Intake Total 1050 / 1550 3375 / 3375 Output Total 600 / 600 Balance 1050 / 1550 2775 / 2775 Microbiology Past 72 Hours 08/13/19 18:00 Urine, Catheterized Urine Culture - Preliminary Presumptive E. coli Laboratory Results 08/13/19 17:23: WBC 10.0, RBC 3.38 L, Hgb 10.4 L, Hct 33.2 L, MCV 98.2, MCH 30.8, MCHC 31.3 L, RDW Std Deviation 53.4 H, RDW Coeff of Zach 14.6, Plt Count 282, MPV 10.3, Immature Gran % (Auto) 0.900, Neut % (Auto) 78.4 H, Lymph % (Auto) 9.2 L, [place] % (Auto) 5.0, Eos % (Auto) 6.3 H, Baso % (Auto) 0.2, Absolute Neuts (auto) 7.8 H, Absolute Lymphs (auto) 0.92, Nucleated RBC % 0 08/13/19 17:23: Sodium 137, Potassium 3.8, Chloride 100, Carbon Dioxide 32.0, Anion Gap 5, BUN 39 H, Creatinine 1.17 H, Estim Creat Clear Calc 30.30, Est GFR (MDRD) Af Amer 58 L, Est GFR (MDRD) Non-Af 48 L, BUN/Creatinine Ratio 33.3 H, Glucose 101, Calcium 9.2, Troponin I < 0.015 08/13/19 17:23: Lactic Acid 1.7 08/13/19 17:50: Specimen Type ART, Sample Site R Radial, pH 7.42, Bicarbonate Actual 30.3 H, POC Total CO2 32, Base Excess 6 H, O2 Saturation 90 L, ABG pCO2 47.1 H, ABG pO2 58 L, O2 Delivery Device Nasal Can, Liter Flow 2.0, Blood Gas Notified Whom ED , Blood Gas Notified Time 3020 08/13/19 18:00: Urine Color Yellow, Urine Clarity Sl Cldy, Urine pH 6.0, Ur Specific Kathleen 1.020, Urine Protein 30 H, Urine Glucose (UA) Normal, Urine Ketones Negative, Urine Occult Blood 50 H, Urine Nitrite Positive H, Urine Bilirubin Negative, Urine Urobilinogen Normal, Ur Leukocyte Esterase 100 H, Urine RBC 5-10 SEEN, Urine WBC 10-25 SEEN, Ur Squamous Epith Cells 0-5 SEEN, Amorphous Sediment 1+ URATE, Urine Bacteria RARE, Urine Mucus 0 SEEN 08/14/19 05:05: Sodium 140, Potassium 3.1 L, Chloride 106, Carbon Dioxide 30.0, Anion Gap 4 L, BUN 32 H, Creatinine 0.91, Estim Creat Clear Calc 38.96, Est GFR (MDRD) Af Amer 77, Est GFR (MDRD) Non-Af 64, BUN/Creatinine Ratio 35.0 H, Glucose 92, Calcium 7.6 L 08/14/19 05:05: WBC 5.1, RBC 2.74 L, Hgb 8.3 L, Hct 27.0 L, MCV 98.5, MCH 30.3, MCHC 30.7 L, RDW Std Deviation 52.9 H, RDW Coeff of Zach 14.7 H, Plt Count 195, MPV 9.1, Immature Gran % (Auto) 0.600, Neut % (Auto) 67.6, Lymph % (Auto) 16.5 L, [place] % (Auto) 6.3, Eos % (Auto) 8.6 H, Baso % (Auto) 0.4, Absolute Neuts (auto) 3.4, Absolute Lymphs (auto) 0.84, Nucleated RBC % 0 Current Medications Acetaminophen (Tylenol) 650 mg PO Q6H PRN PRN PRN Reason: Pain Score 1-10/Temp > 100.7 F Last Admin: 08/13/19 22:29 Dose: 650 mg Documented by: Albuterol Sulfate (Ventolin Aerosols) 2.5 mg INHALATION Q6HWA.RT [facility] Last Admin: 08/14/19 13:14 Dose: 2.5 mg Documented by: Budesonide (Pulmicort Aerosol) 0.5 mg INHALATION Q12H.RT [facility] Last Admin: 08/14/19 06:59 Dose: 0.5 mg Documented by: Docusate Sodium (Colace) 100 mg PO QHS [facility] Last Admin: 08/13/19 22:31 Dose: 100 mg Documented by: Enoxaparin Sodium (Lovenox) 40 mg SC DAILY [facility] Last Admin: 08/14/19 09:08 Dose: 40 mg Documented by: Ergocalciferol (Vitamin D) 50,000 unit PO Mo@1000 [facility] Ferrous Sulfate (Ferrous Sulfate) 325 mg PO TIDCM [facility] Last Admin: 08/14/19 12:58 Dose: 325 mg Documented by: Glucagon () 1 mg IM .X1 PRN PRN Reason: Hypoglycemia Ceftriaxone Sodium (Rocephin) 1 gm in 50 mls @ 100 mls/hr IV Q12 [facility] Last Infusion: 08/14/19 09:41 Dose: Infused Documented by: Dextrose (Dextrose 10%-Water) 250 mls @ 999 mls/hr IV X1 PRN; Protocol PRN Reason: HYPOGLYCEMIA Sodium Chloride () 250 mls @ 15 mls/hr IV .[id number] PRN PRN Reason: Saline Flush Lactobacillus Acidophilus (Acidophilus) 1 tablet PO BID [facility] Last Admin: 08/14/19 09:08 Dose: 1 tablet Documented by: Multivitamins/Minerals (Multivitamin With Minerals) 1 tablet PO DAILYCM [facility] Last Admin: 08/14/19 07:59 Dose: 1 tablet Documented by: Ondansetron HCl (Zofran) 4 mg IV Q8H PRN PRN PRN Reason: Nausea Polyethylene Glycol (Miralax) 17 gm PO DAILY [facility] Last Admin: 08/14/19 06:45 Dose: Not Given Documented by: Pravastatin Sodium (Pravachol) 40 mg PO QHS [facility] Last Admin: 08/13/19 22:30 Dose: 40 mg Documented by: Senna (Senokot) 1 tablet PO DAILY [facility] Last Admin: 08/14/19 06:45 Dose: Not Given Documented by: Sertraline HCl (Zoloft) 100 mg PO QHS [facility] Last Admin: 08/13/19 22:30 Dose: 100 mg Documented by: Sodium Chloride ([place] Nasal Schaller) 1 spray NASAL DAILY [facility] Last Admin: 08/14/19 09:09 Dose: 1 spray Documented by: Sodium Chloride () 10 - 40 ml IV UD PRN PRN Reason: SALINE FLUSH Last Admin: 08/14/19 09:12 Dose: 10 ml Documented by: STROKE Vital Signs/Narrative: Vital Signs Pulse Resp 08/14/19 13:14 89 16 Assessment/Plan Hospitalist note: I am seeing this patient in conjunction with Mert Paulino. I independently seen and examined the patient. Progress note above, laboratory data and imaging studies reviewed and I agree with above treatment plan. Patient was admitted for altered mental status, confusion.found to have sepsis secondary to acute complicated cystitis in context of history of recurrent UTIs. Today, patient is alert and oriented x2 and she seemed to be back to her baseline. Since midnight, she had no more spikes of fever. Other vital signs are stable. - Physical Exam General: Alert, Oriented x2, Cooperative, No apparent distress. HEENT: Atraumatic, PERRLA, EOMI. Neck: Supple, No JVD, Negative Carotid Bruits, Trachea Midline, Thyroid Normal. Lungs: Decreased breath sounds bilateral, otherwise clear, No rhonchi, No wheeze, No rales. Cardiovascular: Regular rate, Regular Rhythm, Normal S1, Normal S2, PMI Normal. Abdomen: Bowel Sounds Present, Soft, Non Tender, Non-Distended, No Hepato-splenomegaly. Extremities: No clubbing, No cyanosis, No edema Skin: No rashes, No breakdown Neurological: Cranial nerves are intact, neuro grossly intact Vital Signs are stable. Assessment and plan: #1 recurrent acute cystitis/sepsis: In the setting of recurrent UTIs. Patient is on IV Rocephin. She has been having spikes of fever but not since midnight. Other vital signs are stable, blood pressure stable. No leukocytosis, lactic acid was normal. In the past, urine culture revealed E. coli and Proteus mirabilis. Patient has a history of urinary incontinence. Infectious disease consulted, recommendations reviewed. Plan to continue same treatment, awaiting final urine culture. #2 acute metabolic encephalopathy: Reportedly, patient was confused and disoriented upon admission. Apparently, she is oriented x2 at baseline. Today, she is alert, oriented, knows her full name and date of and knows where she is at. CT scan brain showed no acute findings. She is improving. #3 chronic anemia: Over the last 3 years, hemoglobin has been around 13 g/dL, has been dropping since October,. Since that time, hemoglobin has been around 8 to 9 g/dL. Today's hemoglobin is 8.3 g/dL. Plan to monitor, no evidence of active bleeding. #4 other chronic medical problems: Stable, continue current medications as above. This note was generated with [employer] dictation software. It may contain incorrect words, spelling, and punctuation that were not noted in checking the note before signing. Code Visit Inpatient E&M: 97958 Subs Hosp L2
--- NOTE | 2019-08-14 13:48 | CON.PCM_ITS ---
Problem List (1) Cystitis Status: Acute Reason for Consult: uti Consulted by: Dr. Marie History of Present Illness: The patient is a 74 year old F who lives in [facility], presented yesterday with acute onset fever, confusion, lethargy. Sx similar to past uti. Some dysuria. She lives in [facility], wears a adult diaper that her daughter is concerned isn't changed often enough. In ED, fever to 102.3. Admitted on ceftriaxone. Mental status much improved today, but not back to baseline. Has chronic pain related to neuropathy. No abd pain. Mild back pain. Full ROS performed and neg except as noted above. - Medical History Past Medical History (Chronic Problems): Chronic Problems (Last Updated 08/14/19 @ 09:36 by Rula Whitehead MD) Chronic obstructive pulmonary disease (Chronic) Chronic back pain (Chronic) Essential (primary) hypertension (Chronic) Cardiomyopathy in diseases classified elsewhere (Chronic) Nonrheumatic tricuspid (valve) insufficiency (Chronic) Hyperlipidemia (Chronic) Allergies/Adverse Reactions: Allergies amoxicillin [From Augmentin] Adverse Reaction (Verified 08/13/19 17:02) Nausea/Vom/Diarrhea clavulanic acid [From Augmentin] Adverse Reaction (Verified 08/13/19 17:02) Nausea/Vom/Diarrhea nitrofurantoin macrocrystalline [From Macrodantin] Adverse Reaction (Verified 08/13/19 17:02) Vomiting sulfamethoxazole [From Bactrim] Adverse Reaction (Verified 08/13/19 17:02) Nausea/Vom/Diarrhea trimethoprim [From Bactrim] Adverse Reaction (Verified 08/13/19 17:02) Nausea/Vom/Diarrhea Home Medications: Ambulatory Orders Medication Instructions Recorded Methadone HCl 10 mg PO BID 10/04/15 Sertraline HCl [Zoloft] 100 mg PO QHS 10/04/15 Metoprolol Tartrate [Lopressor 50 mg PO BID 06/10/17 (beta melissa)] pravastatin 40 mg tablet 40 mg PO QHS 01/17/18 hydrochlorothiazide 25 mg tablet 25 mg PO DAILY 12/03/18 Diclofenac Sodium [Voltaren] 2 gm TP BID 04/21/19 Docusate Sodium [Colace] 100 mg PO QHS 04/21/19 Ergocalciferol (Vitamin D2) 50,000 unit PO MO 04/21/19 [Vitamin D2] Gabapentin [Neurontin] 200 mg PO TIDCM 04/21/19 L.acidoph,Paracasei, B.lactis 1 ea PO BID 04/21/19 [Probiotic] Lisinopril [Prinivil] 10 mg PO DAILY 04/21/19 Methadone HCl 10 mg PO DAILY@1200 04/21/19 Methadone HCl 15 mg PO DAILY@0900 04/21/19 Multivitamin with Minerals 1 ea PO DAILY 04/21/19 [Multiple Vitamin] Polyethylene Glycol 3350 [Miralax] 17 gm PO DAILY 04/21/19 Senna [Senokot] 1 tab PO DAILY 04/21/19 ferrous sulfate 325 mg (65 mg 325 mg PO TIDCM 05/26/19 iron) tablet Fluticasone/Salmeterol [Advair 1 ea IH BID 08/13/19 250-50 Diskus] Nitrofurantoin Monohyd/M-Cryst 100 mg PO BID 08/13/19 [Macrobid 100 mg Capsule] Sodium Chloride [Saline Nasal 1 spray NS DAILY 08/13/19 Malone] - Social History Tobacco Use: non-smoker Vital Signs Temp Pulse Resp BP Pulse Ox 98.1 F 89 16 123/73 H 98 08/14/19 09:00 08/14/19 13:14 08/14/19 13:14 08/14/19 09:00 08/14/19 09:00 Oxygen Flow Rate (L/min) 2 Oxygen Delivery Method Room Air Weight: 92.3 kg Body Mass Index (BMI) 39.7 Microbiology Past 72 Hours 08/13/19 18:00 Urine Culture - Preliminary Urine, Catheterized Presumptive E. coli Laboratory Tests Past 24 Hrs 08/13/19 08/13/19 08/13/19 17:23 17:23 17:23 WBC 10.0 RBC 3.38 L Hgb 10.4 L Hct 33.2 L MCV 98.2 MCH 30.8 MCHC 31.3 L RDW Std Deviation 53.4 H RDW Coeff of Zach 14.6 Plt Count 282 MPV 10.3 Immature Gran % (Auto) 0.900 Neut % (Auto) 78.4 H Lymph % (Auto) 9.2 L [place] % (Auto) 5.0 Eos % (Auto) 6.3 H Baso % (Auto) 0.2 Absolute Neuts (auto) 7.8 H Absolute Lymphs (auto) 0.92 Nucleated RBC % 0 Specimen Type Sample Site pH Bicarbonate Actual POC Total CO2 Base Excess O2 Saturation ABG pCO2 ABG pO2 O2 Delivery Device Liter Flow Blood Gas Notified Whom Blood Gas Notified Time Sodium 137 Potassium 3.8 Chloride 100 Carbon Dioxide 32.0 Anion Gap 5 BUN 39 H Creatinine 1.17 H Estim Creat Clear Calc 30.30 Est GFR (MDRD) Af Amer 58 L Est GFR (MDRD) Non-Af 48 L BUN/Creatinine Ratio 33.3 H Glucose 101 Lactic Acid 1.7 Calcium 9.2 Troponin I < 0.015 Urine Color Urine Clarity Urine pH Ur Specific Mcguf[place]y Urine Protein Urine Glucose (UA) Urine Ketones Urine Occult Blood Urine Nitrite Urine Bilirubin Urine Urobilinogen Ur Leukocyte Esterase Urine RBC Urine WBC Ur Squamous Epith Cells Amorphous Sediment Urine Bacteria Urine Mucus 08/13/19 08/13/19 08/14/19 17:50 18:00 05:05 WBC RBC Hgb Hct MCV MCH MCHC RDW Std Deviation RDW Coeff of Zach Plt Count MPV Immature Gran % (Auto) Neut % (Auto) Lymph % (Auto) [place] % (Auto) Eos % (Auto) Baso % (Auto) Absolute Neuts (auto) Absolute Lymphs (auto) Nucleated RBC % Specimen Type ART Sample Site R Radial pH 7.42 Bicarbonate Actual 30.3 H POC Total CO2 32 Base Excess 6 H O2 Saturation 90 L ABG pCO2 47.1 H ABG pO2 58 L O2 Delivery Device Nasal Can Liter Flow 2.0 Blood Gas Notified Whom ED Blood Gas Notified Time 1749 Sodium 140 Potassium 3.1 L Chloride 106 Carbon Dioxide 30.0 Anion Gap 4 L BUN 32 H Creatinine 0.91 Estim Creat Clear Calc 38.96 Est GFR (MDRD) Af Amer 77 Est GFR (MDRD) Non-Af 64 BUN/Creatinine Ratio 35.0 H Glucose 92 Lactic Acid Calcium 7.6 L Troponin I Urine Color Yellow Urine Clarity Sl Cldy Urine pH 6.0 Ur Specific Mcg[place]y 1.020 Urine Protein 30 H Urine Glucose (UA) Normal Urine Ketones Negative Urine Occult Blood 50 H Urine Nitrite Positive H Urine Bilirubin Negative Urine Urobilinogen Normal Ur Leukocyte Esterase 100 H Urine RBC 5-10 SEEN Urine WBC 10-25 SEEN Ur Squamous Epith Cells 0-5 SEEN Amorphous Sediment 1+ URATE Urine Bacteria RARE Urine Mucus 0 SEEN 08/14/19 05:05 WBC 5.1 RBC 2.74 L Hgb 8.3 L Hct 27.0 L MCV 98.5 MCH 30.3 MCHC 30.7 L RDW Std Deviation 52.9 H RDW Coeff of Zach 14.7 H Plt Count 195 MPV 9.1 Immature Gran % (Auto) 0.600 Neut % (Auto) 67.6 Lymph % (Auto) 16.5 L [place] % (Auto) 6.3 Eos % (Auto) 8.6 H Baso % (Auto) 0.4 Absolute Neuts (auto) 3.4 Absolute Lymphs (auto) 0.84 Nucleated RBC % 0 Specimen Type Sample Site pH Bicarbonate Actual POC Total CO2 Base Excess O2 Saturation ABG pCO2 ABG pO2 O2 Delivery Device Liter Flow Blood Gas Notified Whom Blood Gas Notified Time Sodium Potassium Chloride Carbon Dioxide Anion Gap BUN Creatinine Estim Creat Clear Calc Est GFR (MDRD) Af Amer Est GFR (MDRD) Non-Af BUN/Creatinine Ratio Glucose Lactic Acid Calcium Troponin I Urine Color Urine Clarity Urine pH Ur Specific Mcguf[place]y Urine Protein Urine Glucose (UA) Urine Ketones Urine Occult Blood Urine Nitrite Urine Bilirubin Urine Urobilinogen Ur Leukocyte Esterase Urine RBC Urine WBC Ur Squamous Epith Cells Amorphous Sediment Urine Bacteria Urine Mucus - Other Studies Radiology: [] reviewed Other Studies: [] Route of nutrition/ use of supplements: [] Nutritional Intake: [] IV Site: [] Rees Catheter: [] - Physical Exam General: Alert, Oriented x3, Cooperative, No apparent distress HEENT: Atraumatic, PERRLA, EOMI Neck: Supple, No Nodes Lungs: Rhonchi - scattered, Wheezes Cardiovascular: Regular rate, Regular Rhythm Abdomen: Soft, Non Tender, Non-Distended Extremities: Edema Skin: No rashes IV Site: Peripheral, without redness Musculoskeletal: No Tenderness to Palpation of Joints or Extremities Neurological: Cranial nerves II-XII grossly intact - Assessment/Plan Antibiotics: [] Assessment/Plan: [] Active and Suspected Problems (Last Updated 08/14/19 @ 09:36 by Rula Whitehead MD) Sepsis (Acute) Cystitis (Acute) Severe sepsis (Acute) complicated uti. Had some low BP in ED. Fever now improved. Normal wbc and HR. Ucx with ecoli-like. Cont ceftriaxone, overall much improved. Has had 3-4 uti and hospital admits since 04/2019. At discharge, plan will be for 5 more days of po abx to treat this uti, but also should start methenamine with vitamin C to see if that can help prevent these infections. Primary issue for recurrences seems to be her incontinence at the [facility] with irregular diaper changes, and her daughter will try to continue to address this. Will follow, thank you.
--- NOTE | 2019-08-14 16:53 | CHAPLAIN ---
Type of Pastoral Visit _x__ Initial Visit ___ Follow-up Visit ___ On-call Visit ___ General Patient Visit ___ Spiritual Assessment ___ Family Conference ___ Bereavement ___ Rapid Response ___ Code Blue ___ Other (describe below) Pastoral Care Referral From _x__ Patient ___ Family ___ Nurse ___ Physician ___ Veneer Gluer ___ Order Control Clerk Blood Bank ___ Other (describe below) Sacrament/Intervention _x__ Active listening ___ Anointing ___ Sabianism ___ Bereavement ___ Communion ___ Cindy exploration ___ ___ Life review _x__ Prayer ___ Reconciliation ___ Sacrament of Sick _x__ Supportive presence ___ Wedding ___ Other (describe below) Pastoral Comments
[2019-08-14] MEDS: Acetaminophen 325 MG Tablet 650 MG PO (18:47)
[2019-08-14] MEDS: Pravastatin 40 MG Tablet PO (22:36)
[2019-08-14] MEDS: Sertraline 100 MG Tablet PO (22:37)
[2019-08-14] MEDS: Ondansetron 4 MG/2 ML Vial IV (23:01)
[2019-08-14] MEDS: Gabapentin 100 MG Capsule PO (23:44)
[2019-08-14] MEDS: Menthol/Lanolin/Calamine/Znox 113 GM Tube 1 APPLIC TOPICAL (23:44)
[2019-08-15 01:55] VITALS: BP 152/77; PULSE 82; RESP 16; TEMP 37.2; O2SAT 98
[2019-08-15 06:58] LABS: Absolute Lymphocyte Count 1.31 X10^3/uL (0.83-4.51); Absolute Neutrophil Count 4.5 X10^3/uL (2.0-7.7); Basophil# 0.01 X10^3/uL; Basophil% 0.1 % (0-1); Eosinophil# 0.77 X10^3/uL; Eosinophils% 10.7 % (0-5); Hematocrit 29.9 % (37-47); Hemoglobin 9.2 g/dL (12.0-15.0); Lymphocyte # 1.31 X10^3/ul (4.0); Lymphocyte % 18.2 % (19-41); Mean Corp Hgb Conc 30.8 g/dL (32-36); Mean Corpuscular Hgb 29.9 pg (27.0-32.0); Mean Corpuscular Volume 97.1 fL (81-99); Mean Platelet Vol. 9.6 fl (6.2-12.0); Monocyte# 0.55 X10^3/uL; Monocyte% 7.6 % (0-10); NRBC Flagged by Analyzer 0 % (0-5); Neutrophil # 4.51 X10^3/uL (2.7-7.7); Neutrophil % 62.8 % (47-70); Platelet Count 220 K/mm3 (150-450); RBC Distribution Width CV 14.6 % (11.6-14.6); RBC Distribution Width SD 51.8 fl (35.1-43.9); Red Blood Count 3.08 M/mm3 (4.2-5.4); White Blood Count 7.2 K/mm3 (4.4-11.0)
[2019-08-15 07:28] VITALS: PULSE 82; RESP 16; O2SAT 98
[2019-08-15] MEDS: Budesonide Respules 0.5 MG/2 ML AMPUL.NEB. INHALATION (07:28)
[2019-08-15 07:37] LABS: Anion Gap 3 (5-15); BUN 24 mg/dL (7-18); BUN/Creat Ratio 29.8 RATIO (10-20); Calcium,Total 8.5 mg/dL (8.5-10.1); Chloride 102 mmol/L (98-107); EST Glomerular Filtration Rate 74 mL/min (>60); Est Glom Filt Rate - Afr Amer 89 mL/min (>60); Estimated Creatinine Clearance 44.32 ml/min; Glucose 85 mg/dL (74-106); Potassium 3.6 mmol/L (3.5-5.1); Sodium Level 137 mmol/L (136-145)
[2019-08-15 08:20] VITALS: BP 152/81; PULSE 102; RESP 18; TEMP 37.2; O2SAT 98
[2019-08-15] MEDS: Gabapentin 100 MG Capsule PO ×2 (09:22→12:59)
[2019-08-15] MEDS: Multivitamins,Ther W-Minerals Tablet 1 TABLET PO (09:23)
[2019-08-15] MEDS: Menthol/Lanolin/Calamine/Znox 113 GM Tube 1 APPLIC TOPICAL (09:23)
[2019-08-15] MEDS: Ferrous Sulfate 325 MG Tablet PO ×2 (09:23→12:59)
[2019-08-15] MEDS: Ceftriaxone 1 GM/50 ML BAG IV (09:24)
[2019-08-15] MEDS: Sodium Chloride 0.65% 1 SPRAY SPRAY.BTL NASAL (09:24)
[2019-08-15] MEDS: Enoxaparin 40 MG/0.4 ML Syringe SC (09:25)
--- NOTE | 2019-08-15 11:52 | PCM.EXTCARCO ---
- Diet 08/13/19 21:41 Diet: Regular Diet Food consistency:: Regular Liquid Consistency:: Regular/Thin - Routine Orders/Code Status Suppository Type: Dulcolax 10mg Suppository Frequency: Daily PRN O2 Frequency: Continuous Routine Lab Work: CBC - 1 week, BMP - 1 week Code Status: Full Code - Therapies Physical Therapy: Eval and Treat Occupational Therapy: Eval and Treat - Problem/Diagnosis (1) Cystitis Status: Acute Current Visit: Yes (2) Sepsis Status: Acute Current Visit: Yes (3) Acute metabolic encephalopathy Status: Acute Current Visit: Yes (4) Chronic back pain Status: Chronic Current Visit: No - Allergies/Procedures Done in Hospital Allergies/Adverse Reactions: Allergies amoxicillin [From Augmentin] Adverse Reaction (Verified 08/13/19 17:02) Nausea/Vom/Diarrhea clavulanic acid [From Augmentin] Adverse Reaction (Verified 08/13/19 17:02) Nausea/Vom/Diarrhea nitrofurantoin macrocrystalline [From Macrodantin] Adverse Reaction (Verified 08/13/19 17:02) Vomiting sulfamethoxazole [From Bactrim] Adverse Reaction (Verified 08/13/19 17:02) Nausea/Vom/Diarrhea trimethoprim [From Bactrim] Adverse Reaction (Verified 08/13/19 17:02) Nausea/Vom/Diarrhea Procedures: None - Type of Care/Length of Stay Estimated LOS: Convalescent Care Less Than 30 days Type of Care Needed: Skilled Rehab Potential: Fair Prognosis: Fair - Additional Orders/Day of Discharge Day of Discharge: 08/15/19 - Dietary and Speech Recommendations Dietitian Recommendations/Changes: Rec diet change to soft Cardiac/ low sodium w/ fluid restriction d/t pmhx and issues with edema - Follow Up Care Primary Care Physician: Wolf Berry [Primary Care Provider] - Please follow up with your Primary Care Physician in: 1-2 weeks Please Follow Up With: Paige Lynne MD When: 2 weeks
--- NOTE | 2019-08-15 14:02 | DS.PCM_ITS ---
<Mert Paulino - Last Filed: 08/15/19 14:42> Discharge Date and Diagnosis Date of Admission: 08/13/19 Date of Discharge: 08/15/19 - Primary Discharge Diagnosis Active and Suspected Problems (Last Updated 08/14/19 @ 09:36 by Rula Whitehead MD) Acute metabolic encephalopathy 2/2 sepsis 2/2 acute recurrent cystitis 2/2 E coli Chronic urinary incontinence chronic pain peripheral neuropathy COPD - Secondary Discharge Diagnosis Chronic Problems (Last Updated 08/14/19 @ 09:36 by Rula Whitehead MD) Chronic obstructive pulmonary disease (Chronic) Chronic back pain (Chronic) Essential (primary) hypertension (Chronic) Cardiomyopathy in diseases classified elsewhere (Chronic) Nonrheumatic tricuspid (valve) insufficiency (Chronic) Hyperlipidemia (Chronic) Hospital Course and Treatment Imaging Results: CT/Brain/Head without Contrast IMPRESSION: Mild atrophy and periventricular white matter ischemic changes. No evidence for acute bleed. If concern for acute infarct MRI recommended RAD/Chest 1 View (Portable) IMPRESSION: Diminished inspiratory effort and mild bibasilar discoid atelectasis or scarring. No acute cardiopulmonary Consults: BIBIANA Dawson Operations: None Procedures: None Summary of Care Provided: Hospital Course: The patient is a 74 year old F with pmhx of frequent UTIs, chronic urinary incontinence, severe debility due to chronic pain and peripheral neuropathy, permanent SNF resident, who presented to the ER with increased confusion similar to prior episodes of UTI. She was found to have + UA, fever and tachypnea suggesting sespsi, with negative CT brain, no fever/leukocytosis and negative lactate. She was admitted to the med surg unit and placed on rocephin while urine was cultured. Her gabapentin and methadone for chronic pain were held due to confusion. She improved dramatically by the next day. She had some mild confusion still and was kept another night while cultures were pending. Infectious disease was consulted with her frequent UTIs. They suggested that at discharge she start taking hiprex for UTI prophylaxis. There was also concern that her diapers were not being changed reguarly at the [facility]. We discussed this with the family and they are going to push for regular q2hour diaper changes while awake as the patient may be sitting in soiled diapers for extended periods, and she is unaware when this happens. The Urine culture showed E coli sensitive to cefazolin. She was transitioned to Keflex for a total of 7 days, and advised to start Hiprex. I also advised her to follow up with Urology in 2 weeks. She will also need to follow up with her PCP in 1-2 weeks. She was discharged to SNF in stable condition. This patient was seen by Mert Paulino PA-C under the supervision of Dr. Whitehead. [] - Physical Exam Vitals/I&O's: Vital Signs Temp Pulse Resp BP Pulse Ox 98.9 F 102 H 18 152/81 H 98 08/15/19 08:20 08/15/19 08:20 08/15/19 08:20 08/15/19 08:20 08/15/19 08:20 Oxygen Flow Rate (L/min) 2 Oxygen Delivery Method Nasal Cannula Weight: 203 lb 7.787 oz Body Mass Index (BMI) 39.7 Intake and Output for Last 24 Hours 08/13/19 08/14/19 08/15/19 23:59 23:59 23:59 Intake Total 1050 / 1550 4045 / 4045 612.25 / 612.25 Output Total 1600 / 1600 900 / 900 Balance 1050 / 1550 2445 / 2445 -287.75 / -287.75 General: Alert, Oriented x3, Cooperative HEENT: Atraumatic, PERRLA, EOMI, Normocephalic Neck: Supple, No JVD, Negative Carotid Bruits Lungs: Clear to auscultation, Normal air movement Cardiovascular: Regular rate, No murmurs Abdomen: Bowel Sounds Present, Soft, Non Tender, Obese Extremities: No edema, Capillary Refill Less than 3 Seconds Skin: No rashes, No breakdown Musculoskeletal: No Tenderness to Palpation of Joints or Extremities Neurological: Cranial nerves II-XII grossly intact Psych/Mental Status: Normal Affect, Appropriate Microbiology Past 72 Hours 08/13/19 18:00 Urine, Catheterized Urine Culture - Final Presumptive E. coli Laboratory Results 08/15/19 06:28: WBC 7.2, RBC 3.08 L, Hgb 9.2 L, Hct 29.9 L, MCV 97.1, MCH 29.9, MCHC 30.8 L, RDW Std Deviation 51.8 H, RDW Coeff of Zach 14.6, Plt Count 220, MPV 9.6, Immature Gran % (Auto) 0.600, Neut % (Auto) 62.8, Lymph % (Auto) 18.2 L, [place] % (Auto) 7.6, Eos % (Auto) 10.7 H, Baso % (Auto) 0.1, Absolute Neuts (auto) 4.5, Absolute Lymphs (auto) 1.31, Nucleated RBC % 0 08/15/19 06:28: Sodium 137, Potassium 3.6, Chloride 102, Carbon Dioxide 32.0, Anion Gap 3 L, BUN 24 H, Creatinine 0.80, Estim Creat Clear Calc 44.32, Est GFR (MDRD) Af Amer 89, Est GFR (MDRD) Non-Af 74, BUN/Creatinine Ratio 29.8 H, Glucose 85, Calcium 8.5 Current Medications Acetaminophen (Tylenol) 650 mg PO Q6H PRN PRN PRN Reason: Pain Score 1-10/Temp > 100.7 F Last Admin: 08/14/19 18:47 Dose: 650 mg Documented by: Albuterol Sulfate (Ventolin Aerosols) 2.5 mg INHALATION Q6HWA.RT [facility] Last Admin: 08/15/19 07:28 Dose: Not Given Documented by: Budesonide (Pulmicort Aerosol) 0.5 mg INHALATION Q12H.RT [facility] Last Admin: 08/15/19 07:28 Dose: 0.5 mg Documented by: Calamine/Phenol (Calmoseptine Ointment) 1 applic TOPICAL BID [facility]; Protocol Last Admin: 08/15/19 09:23 Dose: 1 applicatio Documented by: Docusate Sodium (Colace) 100 mg PO QHS [facility] Last Admin: 08/14/19 22:37 Dose: Not Given Documented by: Enoxaparin Sodium (Lovenox) 40 mg SC DAILY [facility] Last Admin: 08/15/19 09:25 Dose: 40 mg Documented by: Ergocalciferol (Vitamin D) 50,000 unit PO Mo@1000 [facility] Ferrous Sulfate (Ferrous Sulfate) 325 mg PO TIDCM [facility] Last Admin: 08/15/19 12:59 Dose: 325 mg Documented by: Gabapentin (Neurontin) 100 mg PO TIDCM [facility] Last Admin: 08/15/19 12:59 Dose: 100 mg Documented by: Glucagon () 1 mg IM .X1 PRN PRN Reason: Hypoglycemia Ceftriaxone Sodium (Rocephin) 1 gm in 50 mls @ 100 mls/hr IV Q12 [facility] Last Infusion: 08/15/19 09:54 Dose: Infused Documented by: Dextrose (Dextrose 10%-Water) 250 mls @ 999 mls/hr IV X1 PRN; Protocol PRN Reason: HYPOGLYCEMIA Sodium Chloride () 250 mls @ 15 mls/hr IV .[id number] PRN PRN Reason: Saline Flush Last Infusion: 08/15/19 09:54 Dose: Infused Documented by: Lactobacillus Acidophilus (Acidophilus) 1 tablet PO BID [facility] Last Admin: 08/15/19 09:23 Dose: 1 tablet Documented by: Multivitamins/Minerals (Multivitamin With Minerals) [facility] Last Admin: 08/15/19 09:23 Dose: 1 tablet Documented by: Ondansetron HCl (Zofran) 4 mg IV Q8H PRN PRN PRN Reason: Nausea Last Admin: 08/14/19 23:01 Dose: 4 mg Documented by: Polyethylene Glycol (Miralax) 17 gm PO DAILY [facility] Last Admin: 08/15/19 08:44 Dose: Not Given Documented by: Pravastatin Sodium (Pravachol) 40 mg PO QHS [facility] Last Admin: 08/14/19 22:36 Dose: 40 mg Documented by: Senna (Senokot) 1 tablet PO DAILY [facility] Last Admin: 08/15/19 08:44 Dose: Not Given Documented by: Sertraline HCl (Zoloft) 100 mg PO QHS [facility] Last Admin: 08/14/19 22:37 Dose: 100 mg Documented by: Sodium Chloride ([place] Nasal [place]) 1 spray NASAL DAILY [facility] Last Admin: 08/15/19 09:24 Dose: 1 spray Documented by: Sodium Chloride () 10 - 40 ml IV UD PRN PRN Reason: SALINE FLUSH Last Admin: 08/14/19 23:01 Dose: 10 ml Documented by: Discharge Diet: Low fat/ Low Cholesterol, 2000 mg Sodium Diet Discharge Activity: Return to Normal Activity Home Medications: Medications to take at Discharge Methadone HCl 10 mg PO BID 10/04/15 Sertraline HCl [Zoloft] 100 mg PO QHS 10/04/15 Metoprolol Tartrate [Lopressor (beta melissa)] 50 mg PO BID 06/10/17 pravastatin 40 mg tablet 40 mg PO QHS 01/17/18 hydrochlorothiazide 25 mg tablet 25 mg PO DAILY 12/03/18 Diclofenac Sodium [Voltaren] 2 gm TP BID 04/21/19 Docusate Sodium [Colace] 100 mg PO QHS 04/21/19 Ergocalciferol (Vitamin D2) [Vitamin D2] 50,000 unit PO MO 04/21/19 L.acidoph,Paracasei, B.lactis [Probiotic] 1 ea PO BID 04/21/19 Lisinopril [Prinivil] 10 mg PO DAILY 04/21/19 Methadone HCl 10 mg PO DAILY@1200 04/21/19 Methadone HCl 15 mg PO DAILY@0900 04/21/19 Multivitamin with Minerals [Multiple Vitamin] 1 ea PO DAILY 04/21/19 Polyethylene Glycol 3350 [Miralax] 17 gm PO DAILY 04/21/19 Senna [Senokot] 1 tab PO DAILY 04/21/19 ferrous sulfate 325 mg (65 mg iron) tablet 325 mg PO TIDCM 05/26/19 Fluticasone/Salmeterol [Advair 250-50 Diskus] 1 ea IH BID 08/13/19 Sodium Chloride [Saline Nasal [place]] 1 spray NS DAILY 08/13/19 Ascorbic Acid [Vitamin C] 500 mg PO BID #180 tablet.er 08/14/19 Methenamine Hippurate [Hiprex] 1 gm PO BID #180 tab 08/14/19 Acetaminophen [Tylenol Tablet] 650 mg PO Q6H PRN PRN tab 08/15/19 Cephalexin [Keflex] 500 mg PO BID #8 cap 08/15/19 Gabapentin [Neurontin] 100 mg PO TIDCM cap 08/15/19 Following Prescrptions Were Given to Patient: Methenamine Hippurate [Hiprex] 1 gm PO BID #180 tab Cephalexin [Keflex] 500 mg PO BID #8 cap Ascorbic Acid [Vitamin C] 500 mg PO BID #180 tablet.er Primary Care Physician: Wolf Berry [Primary Care Provider] - Please follow up with your Primary Care Physician in: 1-2 weeks Please Follow Up With: Paige Lynne MD When: 2 weeks Disposition: Home Minutes spent on discharge:: 35 Patient Condition:: Stable Medical Necessity - Tobacco Use Smoking Status: Never smoker Meaningful Use Info Meaningful Use Diagnoses (Choose all that apply): None applicable <Rula Whitehead - Last Filed: 08/16/19 12:25> Discharge Date and Diagnosis - Secondary Discharge Diagnosis Chronic Problems (Last Updated 08/14/19 @ 09:36 by Rula Whitehead MD) Chronic obstructive pulmonary disease (Chronic) Chronic back pain (Chronic) Essential (primary) hypertension (Chronic) Cardiomyopathy in diseases classified elsewhere (Chronic) Nonrheumatic tricuspid (valve) insufficiency (Chronic) Hyperlipidemia (Chronic) Hospital Course and Treatment Summary of Care Provided: Hospitalist note: Discharge summary above reviewed and I concur with the above discharge and treatment plan. Patient was admitted for change in mental status, confusion and she was found to have acute E. coli cystitis with sepsis in the setting of recurrent UTIs which was complicated by acute metabolic encephalopathy. Urinalysis revealed cloudy urine, positive for nitrite and leukocyte esterase, there was 10-25 WBCs and rare bacteria. Initially, patient did have spikes of fever but there was no leukocytosis. CT scan brain done for confusion showed no acute findings. Chest x-ray showed no acute infiltrate or consolidation. She was treated with IV Rocephin. Urine culture revealed presumptive E. coli which was resistant to ampicillin, ciprofloxacin, gentamicin and Levaquin as well as Bactrim but it was sensitive to Rocephin. Blood culture showed no growth in 48 hours. Infectious disease consulted for recurrent UTI and recommended methenamine and vitamin C to prevent recurrence of UTI. Patient discharged back to the [facility] facility in a stable medical condition, discharged on Keflex 500 mg p.o. twice daily for 4 days more of treatment, discharged on Hiprex and vitamin C to decrease the recurrence of the UTI, continued on her previous home medications without any changes, recommended referral to female urology as outpatient with Dr. Lynne, recommended follow-up with PCP in 1 to 2 weeks. This note was generated with [id number] software. It may contain incorrect words, spelling, and punctuation that were not noted in checking the note before signing. - Physical Exam Vitals/I&O's: Vital Signs Temp Pulse Resp BP Pulse Ox 98.8 F 103 H 18 138/71 H 97 08/15/19 14:32 08/15/19 14:32 08/15/19 14:32 08/15/19 14:32 08/15/19 14:32 Oxygen Flow Rate (L/min) 2 Oxygen Delivery Method Nasal Cannula Weight: 203 lb 7.787 oz Body Mass Index (BMI) 39.7 Intake and Output for Last 24 Hours 08/13/19 08/14/19 08/15/19 23:59 23:59 23:59 Intake Total 1050 / 1550 4045 / 4045 612.25 / 612.25 Output Total 1600 / 1600 900 / 900 Balance 1050 / 1550 2445 / 2445 -287.75 / -287.75 Microbiology Past 72 Hours 08/13/19 18:00 Urine, Catheterized Urine Culture - Final Presumptive E. coli Laboratory Results 08/15/19 06:28: WBC 7.2, RBC 3.08 L, Hgb 9.2 L, Hct 29.9 L, MCV 97.1, MCH 29.9, MCHC 30.8 L, RDW Std Deviation 51.8 H, RDW Coeff of Zach 14.6, Plt Count 220, MPV 9.6, Immature Gran % (Auto) 0.600, Neut % (Auto) 62.8, Lymph % (Auto) 18.2 L, [place] % (Auto) 7.6, Eos % (Auto) 10.7 H, Baso % (Auto) 0.1, Absolute Neuts (auto) 4.5, Absolute Lymphs (auto) 1.31, Nucleated RBC % 0 08/15/19 06:28: Sodium 137, Potassium 3.6, Chloride 102, Carbon Dioxide 32.0, Anion Gap 3 L, BUN 24 H, Creatinine 0.80, Estim Creat Clear Calc 44.32, Est GFR (MDRD) Af Amer 89, Est GFR (MDRD) Non-Af 74, BUN/Creatinine Ratio 29.8 H, Glucose 85, Calcium 8.5 Disposition: [facility] facility Minutes spent on discharge:: 31 Patient Condition:: Stable Meaningful Use Info Meaningful Use Diagnoses (Choose all that apply): None applicable Code Visit Inpatient E&M: 10188 Disch Hosp
[2019-08-15 14:32] VITALS: BP 138/71; PULSE 103; RESP 18; TEMP 37.1; O2SAT 97
== END 2019-08-15 15:24 | disposition skilled nursing facility (03) | DRG 690 ==
LOC: ED 17:48 → MS3 23:09
PROVIDERS: Physician Assistant; Admitting Provider Hospitalist; Emergency Provider Emergency Medicine; Family Provider Family Medicine; PCP Family Medicine; Referring Provider Hospitalist; Visit Provider Hospitalist
DX: N30.00 Acute cystitis without hematuria (principal); I42.9 Cardiomyopathy, unspecified; G89.4 Chronic pain syndrome; J44.9 Chronic obstructive pulmonary disease, unspecified; E66.9 Obesity, unspecified; Z87.440 Personal history of urinary (tract) infections; I10 Essential (primary) hypertension; D64.9 Anemia, unspecified; R32 Unspecified urinary incontinence; M54.9 Dorsalgia, unspecified; I36.1 Nonrheumatic tricuspid (valve) insufficiency; E78.5 Hyperlipidemia, unspecified; G62.9 Polyneuropathy, unspecified; Z68.39 Body mass index [BMI] 39.0-39.9, adult
CPT/HCPCS: 36415; 36600; 70450; 71045; 80048; 81001; 82803; 83605; 84484; 85025; 87040; 87086; 87088; 87186; 93005; 94640; 97110; 97162; 97166; 97530; 97802; 99285; J7030; J7050; A4216; J2405

== ENCOUNTER → 2019-09-30 13:19 | Outpatient (CLI) | payer MEDICARE, MEDICAID, SELFPAY ==
[2019-09-11 14:13] VITALS: BMI 40.0
[2019-09-30 13:50] LABS: Allen Test POS; Base Excess 2 mmol/L (-2 to +2); Blood Gas Specimen Type ART; O2 Delivery Device Room Air; PO2 56 mmHG (75-100); SITE R Brachial; SO2 87 % (95-99); Time Given 1342; Total Carbon Dioxide 30 mmol/L; pCO2 50.6 mmHg (35-45); pH 7.35 (7.35-7.45)
== END ==
PROVIDERS: PCP Family Medicine; Referring Provider Internal Medicine Pulmonary Disease; Visit Provider Internal Medicine Pulmonary Disease
DX: R09.02 Hypoxemia (principal)
CPT/HCPCS: 36600; 82803

== ENCOUNTER → 2019-10-21 12:57 | Outpatient (CLI) | payer MEDICARE, MEDICAID, OTHER, SELFPAY ==
[2019-09-11 14:13] VITALS: BMI 40.0
--- NOTE | 2019-10-21 13:00 | SP.MBSS_ITS ---
PRIMARY / SECONDARY DIAGNOSIS: dysphagia (R13.10) REFERRING PHYSICIAN: Dr. Darryl Kelsey MD CURRENT DIET: regular textures, thin liquids DENTITION: WFL MENTAL STATUS: appropriate for participation RESPIRATORY STATUS: O2 at 2L/min via nasal cannula. REASON FOR REFERRAL: The Patient is a 74 year old female referred for a modified barium swallow (MBS) study to objectively assess the Patients oropharyngeal swallow function under fluoroscopy secondary to concerns for an aspiration component to her persistent pulmonary based issues. MEDICAL HISTORY: Chronic obstructive pulmonary disease, oropharyngeal dysphagia, gastroesophageal reflux disease, cardiomyopathy, nonrheumatic tricuspid (valve) insufficiency, palpitations, essential (primary) hypertension, hyperlipidemia, peripheral vascular disease, venous insufficiency of right leg, methicillin resistant staph aureus, degenerative disc disease, vitamin D deficiency, anxiety and depression. PREVIOUS MODIFIED BARIUM SWALLOW STUDY: None ADDITIONAL OBJECTIVE ASSESSMENT RESULTS: 08/13/2019 chest x-ray revealed diminished inspiratory effort and mild bibasilar discoid atelectasis or scarring; no acute cardiopulmonary ASSESSMENT PARAMETERS: The Patient participated in a Modified Barium Swallow (MBS) study on 10/21/2019. This study was recorded in the lateral view and images were sent to PACs for storage. Scoring was completed through each trial using the 8- point Penetration-Aspiration Scale (PAS) and summarized via the Videofluoroscopic Dysphagia Scale (VDS) and the Bolus Residue Scale (BRS), with severity scoring through the Dysphagia Severity Rating Scale (DSRS) and the Swallowing Performance Scale (SPS), and recommended diet textures through the International Dysphagia Diet Standardisation Initiative (IDDSI) RESULTS OF THE EVALUATION: The Patient presents with mild to moderate oropharyngeal dysphagia (DSRS: 3; SPS: 4) with transient penetration of thin liquids. OBJECTIVE ASSESSMENT OF SWALLOW FUNCTION (QUANTITATIVE ? PER TRIAL): PENETRATION / ASPIRATION SCALE (MUSE): 1 = does not enter airway 2 = enters airway/above vocal folds/ejected 3 = enters airway/above vocal folds/not ejected 4 = enters airway/contacts vocal folds/ejected 5 = enters airway/contacts vocal folds/not ejected 6 = enters airway/below vocal folds/ejected 7 = enters airway/below vocal folds/not ejected despite effort 8 = enters airway/below vocal folds/no effort PENETRATION / ASPIRATION SCALE (SCORE): Thin liquid - 5 mL tsp.: 1 Thin liquids via cup (single sip): 2 Thin liquids via cup (single sip): 1 Thin liquids via cup (single sip): 2 Thin liquids via straw (single sip): 1 Thin liquids via straw (sequential swallows): 4 Pudding via spoon: 1 Regular textured cookie: 1 Thin liquids via straw (chin tuck): 1 Thin liquids via straw (chin tuck): 1 Thin liquids via straw (chin tuck): 2 [place] thickened liquids via straw (single sip): 1 [place] thickened liquids via straw (single sip): 2 [place] thickened liquids via straw (single sip): 1 OBJECTIVE ASSESSMENT OF SWALLOW FUNCTION (QUANTITATIVE ? AGGREGATE): VIDEOFLOROSCOPIC DYSPHAGIA SCALE (VDS): LIP CLOSURE: 0 (of 4) Intact BOLUS FORMATION: 3 (of 6) Inadequate MASTICATION: 4 (of 8) Inadequate APRAXIA: 0 (of 4.5) None TONGUE TO PALATE CONTACT: 5 (of 10) Inadequate PREMATURE BOLUS LOSS: 1.5 (of 4.5) <10% ORAL TRANSIT TIME: 3 (of 3) >1.5s TRIGGERING OF PHARYNGEAL SWALLOW: 4.5 (of 4.5) Delayed VALLECULAR RESIDUE: 2 (of 6) <10% LARYNGEAL ELEVATION: 9 (of 9) Impaired PYRIFORM SINUS RESIDUE: 0 (of 13.5) None COATING OF PHARYNGEAL WALL: 0 (of 9) No PHARYNGEAL TRANSIT TIME: 6 (of 6) >1.0s ASPIRATION: 6 (of 12) Supraglottic penetration BOLUS RESIDUE SCALE (BRS): 2 (of 6) residue in valleculae OBJECTIVE ASSESSMENT OF SWALLOW FUNCTION (SEVERITY GRADING): DYSPHAGIA SEVERITY RATING SCALE (DSRS): 3 (mild-moderate) SWALLOWING PERFORMANCE SCALE (SPS): 4 (mild to moderate) OBJECTIVE ASSESSMENT OF SWALLOW FUNCTION (QUALITATIVE): ORAL PREPARATORY PHASE: prolonged mastication duration; sufficient anterior oral containment during oral manipulation; preserved management of breathing / bolus formation ORAL TRANSITIONAL PHASE: intermittent fragmented swallowing (piecemeal deglutition); mild discoordinated lingual movements (undulations) during bolus transport; inconsistent oral clearance without side specific consolidation; intermittent premature posterior bolus loss PHARYNGEAL PHASE: pharyngeal phase delay (between 1-3 seconds in length) contributing to prandial penetration of thin liquids; mild reduction in hyolaryngeal excursion and duration; sufficient / consistent laryngeal vestibule pressure generated to expel penetrated material; no signs of pharyngeal dysmotility; no signs of velopharyngeal impairments; ESOPHAGEAL PHASE: no obvious esophageal phase abnormalities observed. CONTRIBUTING / COMPLICATING FACTORS AND NOTABLE FINDINGS: multiple seconds of cervical hardware along the anterior and posterior cervical spine; small non- obstructive cricopharyngeal bar located at the C-6 level. RESPONSE TO STRATEGIES: all deficits managed successfully with reduction in bolus rate / volume adjustments, and execution of the chin tuck posture, DYSPHAGIA ASSOCIATED MEDICAL CONSIDERATIONS / INTERVENTION CONSIDERATIONS: Despite no evidence of aspiration throughout the assessment, I would still consider the Patient to be at a higher risk of aspiration related medical complications / aspiration pneumonia / aspiration related pulmonary syndrome secondary to the diagnosis of chronic obstructive pulmonary disease (though she states this may be in dispute), the presence of dysphagia with prolonged pharyngeal phase transition with the bolus adjacent to a partially open laryngeal vestibule, her advancing age, current senior care resident, and her lower functional status / impaired ambulatory status. I would recommend continued careful monitoring of pulmonary functioning. I would consider downgrading the Patient to a nectar thickened liquid diet if unable to consistently execute the chin tuck posture, though this should be carefully weighed against the risk of malnutrition and dehydration due directly to the changes in liquid viscosity / diet restrictions and the related negative impact on palatability / intake pleasure / quality of life and anticipated smaller PO intake quantities, higher risk for early satiety with recommended thicker viscosities (which she already reports), and reduced rate of intake with slower viscosities; this is again complicated by the Patients advanced age (up to 55% of frail older patients with dysphagia present or are at risk of malnutrition) and presence of dysphagia. The Patient may require intervention to reduce the risk of malnutrition, with considerations for food enrichment and oral nutritional supplementation. I would strongly consider a referral to a registered clinical dietitian. I would consider the Patient to be a higher risk of non-compliance with dietary recommendations if advancement to a thickened liquid diet secondary to her reported distaste of altered liquid viscosities, which is not surprising given the reported negative impact on quality of life, with overall low compliance rates reported (40%; María et al. 2012). I would recommend discussing any changes in diet textures with the Patient and Patients daughter prior to advancement. INTERVENTION RECOMMENDATIONS AND CONSIDERATIONS: The Patient requires skilled speech-language intervention targeting diet texture management and training / implementation of recommended compensatory strategies; training and implementation of a home oral care protocol to reduce the effects of xerostomia and improve / maintain the integrity of the oral mucosa reducing the risk of aspiration related pulmonary complications; and Patient / caregiver education regarding dysphagia associated with chronic obstructive pulmonary disease and presbyphagia and associated symptomology; POST ASSESSMENT EDUCATION: Results and recommendations were discussed with the Patient and Patients family immediately following MBS completion, with the Patient and Patients family verbalizing understanding and agreement with all recommendations and education provided. We discussed factors impacting effects of aspiration, to include: the quantity of aspiration, the depth of aspiration (trachea or distal airways), and the physical properties of the aspirate. We discussed consequences of oropharyngeal dysphagia, to include pulmonary complications from tracheobronchial aspiration; potential for airway obstruction / asphyxiation; inadequate oral intake because of dysphagia; reduced caloric intake resulting in unintentional and potentially medically complicating loss of weight that is present in up to 25?75% of patients with dysphagia; impairment in mental and physical condition to include depression and deterioration in the quality of life; and complications in overall course of care with overall worse rehabilitation outcomes and increased risk for mortality / . I provided brief overview of signs and symptoms of aspiration, with recommendations for the Patient to further discuss symptoms with the Patients primary care provider. DIET TEXTURE RECOMMENDATIONS: Will recommend a regular ? soft textured (IDDSI: 6), thin liquid diet (IDDSI: 0) diet RECOMMENDED COMPENSATORY STRATEGIES: Direct supervision, consider cutting tougher textures into bite sized pieces, execution of the chin tuck posture, use of straws, reduced bolus volume / rate of ingestion, liquid chaser at reasonable intervals, seated upright at 90 degrees during PO intake, remain upright for 30-60 minutes post meal (GERD precaution), medications one at a time with purees. IMAGE COUNT: [id number] Subhash English M.A., CCC-COSMETICS AND TOILETRIES SALESPERSON, CBIS MBSImP Certified, LSVT Certified [facility] Speech-Language Pathology Department [email or web address]
== END ==
LOC: RAD 12:58
PROVIDERS: PCP Family Medicine; Referring Provider Internal Medicine Pulmonary Disease; Visit Provider Internal Medicine Pulmonary Disease
DX: T17.920A Food in respiratory tract, part unspecified causing asphyxiation, initial encounter (principal)
CPT/HCPCS: 76000; 92611

== ENCOUNTER 2020-04-12 10:03 | Inpatient (IN) | payer MEDICARE, MEDICAID, OTHER, SELFPAY ==
[2019-09-11 14:13] VITALS: BMI 40.0
[2020-04-12] VITALS (10 sets, daily range): BP systolic 112–143; BP diastolic 50–71; PULSE 55–86; RESP 13–20; TEMP 36.9; O2SAT 92–100; BMI 43.1
--- NOTE | 2020-04-12 10:17 | CT_ITS ---
STUDY: CT ABDOMEN AND PELVIS WITH CONTRAST REASON FOR EXAM: Female, 74 years old. RT FLANK AND RT ABD PAIN. Hx of gallstones, COPD, hysterectomy and bladder sling RADIATION DOSAGE (If Supplied By Facility): CTDIvol = ( 24.03 ) mGy, DLP = ( 1535.64 ) mGycm TECHNIQUE: Transaxial images were obtained from the dome of the diaphragm to the symphysis pubis with oral contrast. Oral and amp; IV Gastrografin and amp; 100mL Isovue-300 was administered. Sagittal and coronal images were reconstructed. Individualized dose optimization techniques were used for this CT. COMPARISON: Comparison is made with prior study dated 07/13/2013. FINDINGS: Stable increased markings at the lung bases suggestive of scarring. The visualized portions of the heart are within normal limits. There is decreased attenuation of the liver consistent with steatosis. Normal gallbladder and extrahepatic biliary system. Normal spleen. Normal pancreas. Normal bilateral adrenal glands. Mild degree of bilateral hydronephrosis and hydroureter down to the insertion into the bladder. There is a moderate-sized hiatal hernia. Normal small intestine. Moderate amount of fecal material is seen in the colon. There is non-visualization of the appendix. There is diffuse atherosclerotic calcification of the abdominal aorta, without a demonstrated aneurysm. Normal inferior vena cava. Normal retroperitoneum. Cystocele. Diffusely thickened urinary bladder wall. There is absence of the uterus consistent with a prior hysterectomy. There is a right-sided inguinal hernia containing adipose tissue. At this time, there is evidence of soft tissue mass and destruction of the T12 vertebrae and the superior aspect of the L1 vertebrae. There is a paravertebral soft tissue swelling. There are diffuse degenerative changes of the visualized lumbar spine. Status post right hip replacement. Atrophy of the right psoas muscle. CT/Abdomen/Pelvis WITH Contrast IMPRESSION: Destruction of the T12 vertebrae and the superior aspect of the L1 vertebrae. Mild degree of bilateral hydronephrosis and hydroureter. Cystocele with the diffuse bladder wall thickening. Electronically Signed: Colt Palafox, at 12:31 EDT , Service support ,
--- NOTE | 2020-04-12 10:18 | ED.VIS.GEN ---
History of Present Illness Chief Complaint: Abd Pain Narrative: This patient is a 74-year-old female who presents with abdominal pain. This is been present for about 9 or 10 days. She complains of burning pain in her right lower back and flank as well as right upper and lower abdominal pain which she describes more as a pressure or squeezing. Her pain is mild if she is remaining still in bed but is severe with movement. No fevers. She does report nausea and dry heaving. No diarrhea. She denies any abdominal surgeries. Past Medical History - Allergies and Home Meds Allergies/Adverse Reactions: Allergies amoxicillin [From Augmentin] Adverse Reaction (Verified 09/11/19 14:22) Nausea/Vom/Diarrhea clavulanic acid [From Augmentin] Adverse Reaction (Verified 09/11/19 14:22) Nausea/Vom/Diarrhea nitrofurantoin macrocrystalline [From Macrodantin] Adverse Reaction (Verified 09/11/19 14:22) Vomiting sulfamethoxazole [From Bactrim] Adverse Reaction (Verified 09/11/19 14:22) Nausea/Vom/Diarrhea trimethoprim [From Bactrim] Adverse Reaction (Verified 09/11/19 14:22) Nausea/Vom/Diarrhea Primary Care Physician: Wolf Berry [Primary Care Provider] - Past Medical History: - - Hypertension, hyperlipidemia, COPD Surgical History: total hip arthroplasty - Right, total knee arthroplasty - Right, - - Lumbar laminectomy Smoking Status: Never smoker - Family History Maternal Family History: Family History (Last Reviewed 08/13/19 @ 22:[address] Tevin Marie MD) Father Hypertension Mother Diabetes Hypertension Brother Diabetes Brother Cancer Sister Hypertension Family History: Reports: Diabetes, Heart Disease, Hypertension Paternal Family History: Family History (Last Reviewed 08/13/19 @ 22:[address] Tevin Marie MD) Father Hypertension Mother Diabetes Hypertension Brother Diabetes Brother Cancer Sister Hypertension Family History: Reports: Heart Disease, Hypertension Review of Systems All systems negative except as indicated General: Denies: Fever Eyes: Denies: Visual changes - bilaterally ENT: Denies: Bilateral ear pain Cardiovascular: Denies: Chest pain Respiratory: Denies: Dyspnea Gastrointestinal: Reports: Abdominal pain, Nausea. Denies: Vomiting, Diarrhea Musculoskeletal: Denies: Myalgias, Arthralgias, Extremity Pain Skin: Denies: Rash Neurological: Denies: Headache Hematologic: Denies: Easy bruising Allergy: Denies: Uticaria Physical Exam Vital Signs/Narrative: Vital Signs Temp Pulse Resp BP Pulse Ox 04/12/20 10:03 98.4 F 63 19 H 122/61 H 100 Inital Vital Signs reviewed: Yes General: Well nourished, Obese Head: Normocephalic Eyes: EOMI ENT: Moist mucous membranes Neck: Supple Cardiovascular: Regular rate, Regular rhythm Respiratory: No distress, CTA bilaterally Abdomen: Soft, - - Patient has diffuse right-sided abdominal tenderness upper and lower she does not have guarding or rebound no Larson sign Extremities: Nontender Skin: Normal color Neurological: Alert Psychological: Normal affect Diagnostic/Tx/Re-eval Impressions Abdomen/Pelvis CT 04/12/20 10:17 IMPRESSION: Destruction of the T12 vertebrae and the superior aspect of the L1 vertebrae. Mild degree of bilateral hydronephrosis and hydroureter. Cystocele with the diffuse bladder wall thickening. Electronically Signed: Colt Javy, at 12:31 EDT , Service support , 04/12/20 10:17 Abdomen/Pelvis WITH Contrast [CT] Stat Laboratory Results 04/12/20 04/12/20 04/12/20 10:41 10:41 11:50 WBC 10.3 RBC 3.08 L Hgb 9.5 L Hct 30.9 L MCV 100.3 H MCH 30.8 MCHC 30.7 L RDW Std Deviation 47.1 H RDW Coeff of Zach 12.8 Plt Count 326 MPV 9.0 Immature Gran % (Auto) 0.300 Neut % (Auto) 70.3 H Lymph % (Auto) 18.8 L [place] % (Auto) 7.3 Eos % (Auto) 3.0 Baso % (Auto) 0.3 Absolute Neuts (auto) 7.2 Absolute Lymphs (auto) 1.93 Nucleated RBC % 0 Sodium 138 Potassium 4.4 Chloride 103 Carbon Dioxide 30.0 Anion Gap 5 BUN 37 H Creatinine 1.00 Estim Creat Clear Calc 35.45 Est GFR (MDRD) Af Amer 70 Est GFR (MDRD) Non-Af 58 L BUN/Creatinine Ratio 37.1 H Glucose 98 Calcium 8.9 Total Bilirubin 0.30 AST 27 ALT 26 Alkaline Phosphatase 75 Total Protein 6.9 Albumin 2.9 L Globulin 4.0 Albumin/Globulin Ratio 0.7 L Lipase 119 Urine Color Yellow Urine Clarity Sl. Cloudy Urine pH 5.0 Ur Specific [place] 1.010 Urine Protein Negative Urine Glucose (UA) Normal Urine Ketones Negative Urine Occult Blood 150 H Urine Nitrite Positive H Urine Bilirubin Negative Urine Urobilinogen Normal Ur Leukocyte Esterase 500 H Urine RBC 10-25 SEEN Urine WBC 50-100 SEEN Ur Squamous Epith Cells 0-5 SEEN Urine Bacteria 1+ Urine Mucus 0 SEEN - Medical Decision Making Laboratory studies as above are consistent with a UTI. Patient was given IV Rocephin. CT of the abdomen and pelvis does show a soft tissue mass with destruction of T12 and superior portion of L1. There is also bilateral hydronephrosis. Patient was discussed with the hospitalist and will be admitted for further evaluation and management. Patient was given morphine and Zofran here for symptomatic care. Her pain is controlled as long as she is not moving around. ED Disposition - Plan for ED Patient: Disposition: Acute Care Hospital [facility] Diagnosis: Soft tissue mass, UTI (urinary tract infection) Referrals: Wolf Berry [Primary Care Provider] -
--- NOTE | 2020-04-12 10:26 | ED.RN ---
pt's daughter julianne called, reports if her mother wants her to be there to give her a call at [phone]
[2020-04-12] MEDS: Morphine 2 MG/ML Syringe IV (10:37)
[2020-04-12] MEDS: Ondansetron 4 MG/2 ML Vial IV (10:37)
[2020-04-12] MEDS: 0.9% Normal Saline 1,000 ML 1000 ML IV (10:38)
[2020-04-12 10:50] LABS: Absolute Lymphocyte Count 1.93 X10^3/uL (0.83-4.51); Absolute Neutrophil Count 7.2 X10^3/uL (2.0-7.7); Basophil# 0.03 X10^3/uL; Basophil% 0.3 % (0-1); Eosinophil# 0.31 X10^3/uL; Hematocrit 30.9 % (37-47); Hemoglobin 9.5 g/dL (12.0-15.0); Lymphocyte # 1.93 X10^3/ul (4.0); Lymphocyte % 18.8 % (19-41); Mean Corp Hgb Conc 30.7 g/dL (32-36); Mean Corpuscular Hgb 30.8 pg (27.0-32.0); Mean Corpuscular Volume 100.3 fL (81-99); Monocyte# 0.75 X10^3/uL; Monocyte% 7.3 % (0-10); NRBC Flagged by Analyzer 0 % (0-5); Neutrophil # 7.21 X10^3/uL (2.7-7.7); Neutrophil % 70.3 % (47-70); Platelet Count 326 K/mm3 (150-450); RBC Distribution Width CV 12.8 % (11.6-14.6); RBC Distribution Width SD 47.1 fl (35.1-43.9); Red Blood Count 3.08 M/mm3 (4.2-5.4); White Blood Count 10.3 K/mm3 (4.4-11.0)
[2020-04-12 11:05] LABS: ALB/GLOB Ratio 0.7 RATIO (0.9-2.4); AST(SGOT) 27 U/L (15-37); Alanine Aminotransfer ALT/SGPT 26 U/L (13-56); Albumin, Serum 2.9 g/dL (3.2-5.0); Alkaline Phosphatase 75 U/L (45-117); Anion Gap 5 (5-15); BUN 37 mg/dL (7-18); BUN/Creat Ratio 37.1 RATIO (10-20); Calcium,Total 8.9 mg/dL (8.5-10.1); Chloride 103 mmol/L (98-107); EST Glomerular Filtration Rate 58 mL/min (>60); Est Glom Filt Rate - Afr Amer 70 mL/min (>60); Estimated Creatinine Clearance 35.45 ml/min; Glucose 98 mg/dL (74-106); Lipase 119 U/L (73-393); Potassium 4.4 mmol/L (3.5-5.1); Protein, Total 6.9 g/dL (6.4-8.2); Sodium Level 138 mmol/L (136-145)
[2020-04-12 11:52] LABS: Mucous, Urine 0 SEEN /hpf (<or=2+)
[2020-04-12 11:54] LABS: Color, Urine Yellow (Yellow); Glucose, Dipstick Normal (Normal); Ketone-Dipstick Negative (Negative); Leukocyte Esterase-Dipstick 500 /ul (Negative); Nitrite-Dipstick Positive (Negative); Occult Blood-Urine 150 /ul (Negative); Protein-Dipstick Negative (Negative); Urine Bilirubin Dipstick Negative (Negative); Urine Clarity Sl. Cloudy (Clear); Urine Urobilinogen Normal (Normal)
[2020-04-12 12:00] LABS: Red Blood Cells-Urine 10-25 SEEN /hpf (0-5); White Blood Cells 50-100 SEEN /hpf (0-5)
[2020-04-12 12:01] LABS: Bacteria 1+ /hpf (None Seen); Squamous Epithelial Cells - UA 0-5 SEEN /hpf (5-10)
--- NOTE | 2020-04-12 13:51 | NURSING ---
MED SURG [facility] SOFT TISSUE MASS, DISTRUCTION OF T12
--- NOTE | 2020-04-12 14:03 | PCM.HP.STD ---
Problem List (1) T12 destruction Status: Acute (2) Soft tissue mass Status: Acute (3) UTI (urinary tract infection) Status: Acute (4) Chronic obstructive pulmonary disease Status: Chronic Qualifiers: COPD type: unspecified COPD Qualified Code(s): J44.9 - Chronic obstructive pulmonary disease, unspecified (5) Chronic back pain Status: Chronic Qualifiers: Back pain location: back pain in unspecified location Back pain laterality: unspecified Qualified Code(s): M54.9 - Dorsalgia, unspecified; G89.29 - Other chronic pain (6) Essential (primary) hypertension Status: Chronic (7) Cardiomyopathy in diseases classified elsewhere Status: Chronic (8) Hyperlipidemia Status: Chronic History of Present Illness Date of Admission: 04/12/20 Chief Complaint: Right abdominal/right back pain. The patient is a 74 year old F with multiple medical comorbidities as mentioned above presented to the emergency room from the residential because of right-sided abdominal as well as right-sided back pain. Patient mentioned that her symptoms started around 10 days ago, started complaining of pain on the right side of her abdomen as well as her right back, pressure-like pain, sometimes sharp, 9 out of 10 in severity, aggravated by movement, associated with nausea and no relieving factors. She denied trauma or mechanical fall. She did mention that she had back pain and back issues for a long time but her pain is not usually as bad. Patient's daughter mentioned that around 3 days ago, patient had a fever, she was isolated and COVID-19 testing was done and it came back negative. At the same time, patient was informed that she has pneumonia and UTI for which she received antibiotics and was completed. At this time, she still complaining of mild cough which is chronic, not worsening than usual and no sputum production. She denied fever or chills. She complained of urine incontinence, no dysuria or hematuria. In the emergency department, her vital signs are stable, pulse ox has been around 97% on 2 L which is her baseline at the residential. Routine blood work was remarkable for hemoglobin of 9.5 g/dL, otherwise unremarkable. LFT and lipase were normal. Urinalysis revealed cloudy urine, positive for nitrite and leukocyte esterase, there was 50-100 WBCs and 1+ bacteria. CT scan abdomen and pelvis with contrast revealed destruction of T12 vertebra and superior aspect of L1 vertebra with intravertebral soft tissue mass, mild degree of bilateral hydronephrosis and right ureter. She is being admitted for acute recurrent cystitis, T12/L1 vertebral destruction, with intravertebral soft tissue mass for evaluation and treatment. Past Medical History Past Medical History (Chronic Problems): Chronic Problems (Last Updated 08/14/19 @ 09:[address] Rula Whitehead MD) Chronic obstructive pulmonary disease (Chronic) Chronic back pain (Chronic) Essential (primary) hypertension (Chronic) Cardiomyopathy in diseases classified elsewhere (Chronic) Nonrheumatic tricuspid (valve) insufficiency (Chronic) Hyperlipidemia (Chronic) Medical History: Medical History (Last Updated 08/14/19 @ 09:[address] Rula Whitehead MD) Essential (primary) hypertension (Chronic) I10 Cardiomyopathy in diseases classified elsewhere (Chronic) I43 Nonrheumatic tricuspid (valve) insufficiency (Chronic) I36.1 Hyperlipidemia (Chronic) E78.5 Anxiety F41.9 Depression F32.9 MRSA (methicillin resistant staph aureus) culture positive Z22.322 Vitamin D deficiency E55.9 COPD (chronic obstructive pulmonary disease) J44.9 DDD (degenerative disc disease) HTN (hypertension) I10 Hemorrhoids K64.9 PVD (peripheral vascular disease) I73.9 Venous insufficiency of right leg I87.2 Foot drop, right (Inactive) M21.371 Malnutrition (Inactive) E46 Non-pressure chronic ulcer of right lower leg with fat layer exposed (Inactive) L97.912 Stage III pressure ulcer of right ankle (Inactive) L89.513 Venous ulcer of left lower extremity without varicose veins (Inactive) I87.2, L97.929 Allergies amoxicillin [From Augmentin] Adverse Reaction (Verified 09/11/19 14:22) Nausea/Vom/Diarrhea clavulanic acid [From Augmentin] Adverse Reaction (Verified 09/11/19 14:22) Nausea/Vom/Diarrhea nitrofurantoin macrocrystalline [From Macrodantin] Adverse Reaction (Verified 09/11/19 14:22) Vomiting sulfamethoxazole [From Bactrim] Adverse Reaction (Verified 09/11/19 14:22) Nausea/Vom/Diarrhea trimethoprim [From Bactrim] Adverse Reaction (Verified 09/11/19 14:22) Nausea/Vom/Diarrhea Home Medications: Ambulatory Orders Medication Instructions Recorded Methadone HCl 10 mg PO BID 10/04/15 Sertraline HCl [Zoloft] 100 mg PO QHS 10/04/15 Metoprolol Tartrate [Lopressor 50 mg PO BID 06/10/17 (beta melissa)] pravastatin 40 mg tablet 40 mg PO QHS 01/17/18 hydrochlorothiazide 25 mg tablet 25 mg PO DAILY 12/03/18 Docusate Sodium [Colace] 100 mg PO QHS 04/21/19 Ergocalciferol (Vitamin D2) 50,000 unit PO MO 04/21/19 [Vitamin D2] Methadone HCl 15 mg PO DAILY@0900 04/21/19 Multivitamin with Minerals 1 ea PO DAILY 04/21/19 [Multiple Vitamin] Polyethylene Glycol 3350 [Miralax] 17 gm PO DAILY 04/21/19 ferrous sulfate 325 mg (65 mg 325 mg PO TIDCM 05/26/19 iron) tablet Sodium Chloride [Saline Nasal 1 spray NS DAILY 08/13/19 [place]] Acetaminophen [Tylenol Tablet] 650 mg PO Q6H PRN PRN tab 08/15/19 lorazepam 0.5 mg tablet 0.5 mg PO BID PRN 09/11/19 Ascorbic Acid [Vitamin C] 500 mg PO BID 04/12/20 Fluticasone Propion/Salmeterol 1 puff INHALATION BID 04/12/20 [[place]ixela 250-50 Inhub] Gabapentin [Neurontin] 100 mg PO TIDCM 04/12/20 Gabapentin [Neurontin] 300 mg PO QHS 04/12/20 Lisinopril 10 mg PO DAILY 04/12/20 Methenamine Hippurate [Hiprex] 1 gm PO BID 04/12/20 Ondansetron HCl [Zofran] 4 mg PO Q4H PRN PRN 04/12/20 Pomegranate Fruit Extract 500 mg PO DAILY 04/12/20 [Pomegranate] Potassium Chloride [Klor-Con M20] 40 meq PO DAILY 04/12/20 Sennosides/Docusate Sodium [Senna 1 tab PO DAILY 04/12/20 Plus 8.6-50 mg Tablet] Surgical History: Surgical History (Last Reviewed 04/12/20 @ 14:[address] Rula Whitehead MD) History of hip replacement Z96.649 History of hysterectomy Z90.710 History of incisional hernia repair Z98.890, Z87.19 Hx of repair of rotator cuff Z98.890 Surgical History: total hip arthroplasty - Right, total knee arthroplasty - Right, - - Lumbar laminectomy Psychiatric History: Anxiety, Depression [employer] History: No pertinent [employer] history Lives: Prison Smoking Status: Never smoker Alcohol: None Drugs: None - *Family History Maternal Family History: Family History (Last Reviewed 04/12/20 @ 14:[address] Rula Whitehead MD) Father Hypertension Mother Diabetes Hypertension Brother Diabetes Brother Cancer Sister Hypertension Paternal Family History: Family History (Last Reviewed 04/12/20 @ 14:[address] Rula Whitehead MD) Father Hypertension Mother Diabetes Hypertension Brother Diabetes Brother Cancer Sister Hypertension Review of Systems Constitutional: Denies: Anorexia, Chills, Fever, Weakness Eyes: Denies: Blurred vision, Double vision, Drainage, Redness HEENT: Denies: Difficulty Hearing, Ear Pain, Eye Pain, Nasal Congestion, Sore Throat Cardiovascular: Denies: Chest Pain, Chest Pressure, Heaviness, Light Headedness, Palpitations, Syncope Respiratory: Reports: Cough. Denies: Shortness of Breath, Sputum production, Wheezing Gastrointestinal: Reports: Abdominal Pain, Nausea. Denies: Constipation, Diarrhea, Vomiting Genitourinary: Reports: Incontinence. Denies: Dysuria, Frequency Musculoskeletal: Reports: Back Pain. Denies: Arm Pain, Foot Pain Skin: Denies: Dryness, Rash Neurological: Denies: Balance problems, Double vision, Change in Speech, Slurred speech, Confusion, Headaches, Incoordination, Numbness Psychiatric: Reports: Anxiety, Depression Endocrine: Denies: Change in Body Habitus, Polydipsia, Polyuria VTE Information - Inpt Only VTE Present on Admission: No VTE Mechan Device Prophylaxis: None VTE Pharm Prophylaxis ordered?: Yes Patient Problems: Active and Suspected Problems (Last Updated 08/14/19 @ 09:[address] Rula Whitehead MD) Soft tissue mass (Acute) UTI (urinary tract infection) (Acute) T12 destruction (Acute) - Physical Exam Vitals/I&O's: Vital Signs Temp Pulse Resp BP Pulse Ox 98.4 F 55 L 15 126/53 H 97 04/12/20 10:03 04/12/20 12:01 04/12/20 12:01 04/12/20 12:01 04/12/20 12:01 Oxygen Flow Rate (L/min) 2 Oxygen Delivery Method Nasal Cannula Weight: 220 lb 14.451 oz Body Mass Index (BMI) 43.1 Intake and Output for Last 24 Hours 04/10/20 04/11/20 04/12/20 23:59 23:59 23:59 Intake Total 1000 / 1000 Balance 1000 / 1000 General: Alert, Oriented x3, Cooperative, No apparent distress HEENT: Atraumatic, PERRLA, EOMI, Normocephalic Oral: Moist Mucosa, No Gingival or Mucosal Lesions/ Ulcerations Neck: Supple, No JVD, Negative Carotid Bruits, Trachea Midline, Thyroid Normal Size and Texture Lungs: Clear to auscultation, Normal air movement, No rhonchi, No wheeze, No rales, Diminished Cardiovascular: Regular rate, Regular Rhythm, Normal S1, Normal S2, Murmur - Systolic murmur. Abdomen: Bowel Sounds Present, Soft, Non Tender, Non-Distended, Obese Extremities: No clubbing, No cyanosis, Edema Skin: No rashes, No breakdown Lymphatic: No Cervical, Supraclavicular, or Inguinal Adenopathy Neurological: Cranial nerves II-XII grossly intact, Motor Exam 5/5 strength throughout Psych/Mental Status: Normal Affect, Appropriate, Alert and oriented to time, place, person, mood and affect Laboratory Results 04/12/20 10:41: WBC 10.3, RBC 3.08 L, Hgb 9.5 L, Hct 30.9 L, MCV 100.3 H, MCH 30.8, MCHC 30.7 L, RDW Std Deviation 47.1 H, RDW Coeff of Zach 12.8, Plt Count 326, MPV 9.0, Immature Gran % (Auto) 0.300, Neut % (Auto) 70.3 H, Lymph % (Auto) 18.8 L, [place] % (Auto) 7.3, Eos % (Auto) 3.0, Baso % (Auto) 0.3, Absolute Neuts (auto) 7.2, Absolute Lymphs (auto) 1.93, Nucleated RBC % 0 04/12/20 10:41: Sodium 138, Potassium 4.4, Chloride 103, Carbon Dioxide 30.0, Anion Gap 5, BUN 37 H, Creatinine 1.00, Estim Creat Clear Calc 35.45, Est GFR (MDRD) Af Amer 70, Est GFR (MDRD) Non-Af 58 L, BUN/Creatinine Ratio 37.1 H, Glucose 98, Calcium 8.9, Total Bilirubin 0.30, AST 27, ALT 26, Alkaline Phosphatase 75, Total Protein 6.9, Albumin 2.9 L, Globulin 4.0, Albumin/Globulin Ratio 0.7 L, Lipase 119 04/12/20 11:50: Urine Color Yellow, Urine Clarity Sl. Cloudy, Urine pH 5.0, Ur Specific [place] 1.010, Urine Protein Negative, Urine Glucose (UA) Normal, Urine Ketones Negative, Urine Occult Blood 150 H, Urine Nitrite Positive H, Urine Bilirubin Negative, Urine Urobilinogen Normal, Ur Leukocyte Esterase 500 H, Urine RBC 10-25 SEEN, Urine WBC 50-100 SEEN, Ur Squamous Epith Cells 0-5 SEEN, Urine Bacteria 1+, Urine Mucus 0 SEEN Clinical Impression(s) from Imaging Studies Abdomen/Pelvis CT 04/12/20 10:17 IMPRESSION: Destruction of the T12 vertebrae and the superior aspect of the L1 vertebrae. Mild degree of bilateral hydronephrosis and hydroureter. Cystocele with the diffuse bladder wall thickening. Electronically Signed: Colt Palafox, at 12:31 EDT , Service support , Assessment/Plan All Active Problems (Last Updated 08/14/19 @ 09:[address] Rula Whitehead MD) Soft tissue mass (Acute) UTI (urinary tract infection) (Acute) T12 destruction (Acute) This is a 74 years old female patient presented to the emergency room because of right abdominal and right back pain, found to have acute recurrent cystitis, T12/L1 destruction and right paravertebral soft tissue mass and she is being admitted for evaluation and treatment. #1 acute recurrent cystitis/questionable pyelonephritis: In context of recurrent UTI, had episode of UTI last week, received and completed antibiotics. Previous urine cultures reviewed, showed E. coli. Patient is afebrile, no leukocytosis. CT scan abdomen and pelvis revealed mild degree of bilateral hydronephrosis and hydroureter, no evidence of kidney stones. Plan: Admit to [facility] floor, telemetry, urine culture, start IV Rocephin 2 g every 24 hours, gentle IV fluids for hydration, Tylenol PRN, Zofran PRN, repeat CBC and BMP tomorrow morning, PT OT evaluation and treatment. #2 T12/superior aspect of L1 vertebral destruction/intravertebral soft tissue mass: Unclear etiology but because of vertebral dissection, malignancy cannot be ruled out. Plan: IV morphine PRN for pain, OxyIR PRN for pain, oncology consult, consult Dr. Dowling for T12 intravertebral soft tissue mass biopsy. #3 chronic anemia: In the last year, hemograms been around 8 to 10 g/dL. Admission hemoglobin is 9.5 g deciliter, stable at baseline. No evidence of active bleeding. Plan to monitor, continue iron supplement. #4 hypertension: Blood pressure stable, continue HCTZ, lisinopril and metoprolol. #5 chronic pain syndrome/peripheral neuropathy: Stable, continue methadone and Neurontin. #6 anxiety/depression: Stable, continue Lorazepam and Zoloft. #7 COPD/chronic respiratory failure: On oxygen at the residential at 2 L. Plan to continue oxygen, DuoNeb every 6 hours, albuterol PRN, will do chest x-ray. #8 hyperlipidemia: Continue statins. #9 CODE STATUS: Full code. Discussed with the patient and her daughter. #10 DVT prophylaxis: Subcu Lovenox. This note was generated with [employer] dictation software. It may contain incorrect words, spelling, and punctuation that were not noted in checking the note before signing. Inpatient E&M: 06206 Init Hosp L3
[2020-04-12] MEDS: Ceftriaxone 1 GM/50 ML BAG IV (15:32)
--- NOTE | 2020-04-12 16:03 | NM_ITS ---
CLINICAL: Female, 74 years old. Lesion seen on T12 and L1. -- No DX of Cancer WHOLE BODY NUCLEAR BONE SCAN TECHNIQUE: Following the IV administration of 26 mCi of Tc MDP, whole body bone imaging was performed with a gamma camera following a three hour delay. FINDINGS: Increased uptake of radiopharmaceutical is seen at the T12-L1 level corresponding to the CT findings. Increased uptake is also seen in the region of the manubrium of the sternum with extension to the sternoclavicular joints bilaterally more prominent on the right side. Focal reversible uptake is also seen at the level of the T3 vertebrae. Increased uptake is seen at level of the left knee joint as well as both shoulder joints most likely secondary to degenerative changes. NM/Bone Scan Whole Body IMPRESSION: Increased radiopharmaceutical uptake at the thoracal lumbar region as well as the manubrium of the sternum. No plastic/inflammatory process should be ruled out. Increased uptake is also seen at the level of the left knee joint and both shoulder joints most likely degenerative in nature. Electronically Signed: Colt Palafox, at 13:27 EDT , Service support ,
--- NOTE | 2020-04-12 16:22 | RAD_ITS ---
STUDY: X-RAY CHEST REASON FOR EXAM: Female, 74 years old. Cough TECHNIQUE: Frontal view of the chest COMPARISON: 08/22/19 FINDINGS: There is linear opacity in the midlung calixto bilaterally, likely representing atelectasis. The lungs are otherwise clear. There are no pleural effusions. There is no pneumothorax. The heart is normal in size. The visualized osseous structures are within normal limits. RAD/Chest 1 View (Portable) IMPRESSION: Linear opacity in the midlung calixto bilaterally, likely representing atelectasis. Otherwise, clear lungs. Electronically Signed: Garth Villegas, at 16:46 EDT Tel , Service support ,
[2020-04-12] MEDS: 0.9% Normal Saline 1,000 ML 75 ML IV (16:31)
[2020-04-12] MEDS: 0.9% Saline Lock 10 ML Syringe IV (16:38)
[2020-04-12] MEDS: Gabapentin 100 MG Capsule PO (17:52)
[2020-04-12] MEDS: Ferrous Sulfate 325 MG Tablet PO (17:52)
[2020-04-12] MEDS: oxyCODONE 5 MG Tablet PO (17:55)
--- NOTE | 2020-04-12 18:00 | MRI_ITS ---
STUDY: MRI CERVICAL SPINE WITHOUT CONTRAST REASON FOR EXAM: Female, 74 years old. Abnormal T12 destruction, concern for malignant cord compression. History of prior cervical surgery and known neck fracture. Neck pain, H/A. PT refused contrast imaging of cervical d/t severe pain TECHNIQUE: Standardized fat and water weighted pulse sequences were obtained in the sagittal and axial planes. COMPARISON: CT of the cervical spine dated FEBRUARY 10, 2016 FINDINGS: Cervical spine hardware results in limited visualization of the osseous structures due to magnetic artifact. The patient has a known anterior cortical plate-screw construct and bone graft at the C3, C4, C5, and C6 levels in addition to posterior fusion rods and pedicle screws at these levels and the suboccipital bones. Chronic slight anterior subluxation of C1 in relation to C2. There is also partial osseous fusion of the bones and prior surgical resection of the odontoid process. Anterior bone spur of the opisthion and foramen magnum results in mass effect/compression of the posterior aspect of the cord and buckling and mild central canal stenosis. Convex osteophyte complex at the posterior aspect of the C3 and C4 vertebral body also contributes to mild compression anterior aspect of the cord but no significant central canal stenosis due to posterior decompression at this level. Anterolisthesis of C6 on C7 of 6 to 7 mm unchanged. Posterior superior osteophyte complex at C7 results in compression anterior aspect of the cord and contributes to mild to moderate central canal stenosis at this level worsened by chronic anterior listhesis of C7. Mild central canal stenosis with compression anterior and posterior aspect of cord is demonstrated at the C7-T1 level due to a posterior disc osteophyte complex in addition to hypertrophied ligamenta flava. The intervertebral neural foramina are not adequately visualized on this study due to motion artifact and metallic artifact. There is reversal of the normal cervical lordosis. Anterior cortical plate screw construct Moderate to severe degenerative disc disease is present at the T2-T3 level Normal cervical cord. There is no demonstrated cervical cord syrinx cavity. Normal visualized soft tissue structures. MRI/Spine Cervical (Routine) IMPRESSION: 1. Mild to moderate central canal stenosis without cord compression demonstrated at the foramen magnum, C3-C4, C6-C7, and C7-T1. Electronically Signed: Justin Treadwell MD at 20:25 EDT , Service support ,
--- NOTE | 2020-04-12 18:00 | MRI_ITS ---
STUDY: MRI THORACIC SPINE WITH AND WITHOUT CONTRAST REASON FOR EXAM: Female, 74 years old. Abnormal T12 destruction, concern for malignant cord compression. Prior surgeries of cervical and lumbar regions. Severe back pain. Best images possible TECHNIQUE: 20ml Dotaarem via IV was administered for the contrast portion of the examination. COMPARISON: MRI of the lumbar spine dated November 23, 2015. CT of abdomen and pelvis dated April 12, 2020. FINDINGS: Normal kyphosis of the thoracic spine. There is no substantial scoliosis. T1-2, T2-3, T3-4, T4-5, T5-6, T6-7, T7-8, T8-9, T9-10, T10-11, T11-12: Mild central canal stenosis without cord compression is present at T2-T3 secondary to a diffuse disc osteophyte complex. Mild to moderate disc space narrowing is present in the upper thoracic spine with mild diffuse disc osteophyte complexes. The lower half of the thoracic spine disc spaces are preserved although disc desiccation is present. Endplate degenerative changes and mild endplate spurring is seen at multiple levels. Wedge-shaped mixed signal material identified in the T12-L1 level is most likely combination of fibrosis and chronic seroma/proteinaceous material. Some serpiginous low signal material is identified at the periphery of this complex collection which was more well formed on the prior MRI and appears to be surgically intentionally placed material. A fluid/fluid level is seen within this material. There is mild peripheral enhancement around this material/complex fluid on the postcontrast study likely due to the investing capsule or fibrosis. Enhancement is also seen in circumferential fibrotic material of the epidural space which contributes to mass effect on the thecal sac. Mild enhancement is also present in the endplates and disc of T11-T12 with no demonstrated cortical erosion or bony destruction or intradiscal fluid; acute inflammation and possibly early osteomyelitis suspected at this level. Retrolisthesis of the superior T12 fragment of 1.9 cm noted. Moderate central canal stenosis is present at the T12-L1 level. A posterior decompressive defect is seen. The facet joints at this level are moderately severe bilateral foraminal stenosis with nerve root compression is present at the T12-L1 level. Hypertrophied. Old fracture deformity of the L1 vertebral body noted. Moderate fatty atrophy is present. MRI/Spine Thoracic W/WO Contrast IMPRESSION: Complex chronic process with possible superinfection at T12-L1 Probable early osteomyelitis and discitis at T11-T12 1. Mild enhancement is also present in the endplates and disc of T11-T12 with no demonstrated cortical erosion or bony destruction or intradiscal fluid; acute inflammation and possibly early osteomyelitis suspected at this level. 2. Wedge-shaped mixed signal material identified in the T12-L1 level is most likely combination of fibrosis and chronic seroma/proteinaceous material. 3. Some serpiginous low signal material is identified at the periphery of this complex collection which was more well formed on the prior MRI and appears to be surgically intentionally placed material. 4. A fluid/fluid level is seen within this material. There is mild peripheral enhancement around this material/complex fluid on the postcontrast study likely due to the investing capsule or fibrosis. Enhancement is also seen in circumferential fibrotic material of the epidural space which contributes to mass effect on the thecal sac. 5. Multilevel degenerative changes so which are moderate to severe Electronically Signed: Justin Treadwell MD at 20:50 EDT , Service support ,
--- NOTE | 2020-04-12 18:00 | MRI_ITS ---
STUDY: MRI LUMBAR SPINE WITH AND WITHOUT CONTRAST REASON FOR EXAM: Female, 74 years old. Abnormal T12 destruction, concern for malignant cord compression. Prior surgeries of cervical and lumbar regions. Severe back pain. Best images possible TECHNIQUE: Standardized fat and water weighted pulse sequences were obtained in the sagittal and axial planes. IV yes yes was administered for the contrast portion of the examination. COMPARISON: MRI of the thoracic spine dated April 12, 2020. MRI of the lumbar spine dated November 23, 2015. FINDINGS: Wedge-shaped mixed signal material identified in the T12-L1 level is most likely combination of fibrosis and chronic seroma/proteinaceous material. Some serpiginous low signal material is identified at the periphery of this complex collection which was more well formed on the prior MRI and appears to be surgically intentionally placed material. A fluid/fluid level is seen within this material. There is mild peripheral enhancement around this material/complex fluid on the postcontrast study likely due to the investing capsule or fibrosis. Enhancement is also seen in circumferential fibrotic material of the epidural space which contributes to mass effect on the thecal sac. Mild enhancement is also present in the endplates and disc of T11-T12 with no demonstrated cortical erosion or bony destruction or intradiscal fluid; acute inflammation and possibly early osteomyelitis suspected at this level. Retrolisthesis of the superior T12 fragment of 1.9 cm noted. Moderate central canal stenosis is present at the T12-L1 level. A posterior decompressive defect is seen. The facet joints at this level are moderately severe bilateral foraminal stenosis with nerve root compression is present at the T12-L1 level. Hypertrophied. Old fracture deformity of the L1 vertebral body noted. Moderate fatty atrophy is present. Normal visualized sacral ala. There is bony fusion across the disc spaces of the entire remaining lumbar spine. Mild central canal stenosis is present at L4-L5. Anterolisthesis of L4 and L5 of 6 mm noted. Moderate disc space narrowing is present at L5-S1 with a mild diffuse disc bulge. MRI/Spine Lumbar W/WO Contrast IMPRESSION: Complex chronic process with possible superinfection at T12-L1 Probable early osteomyelitis and discitis at T11-T12 1. Mild enhancement is also present in the endplates and disc of T11-T12 with no demonstrated cortical erosion or bony destruction or intradiscal fluid; acute inflammation and possibly early osteomyelitis suspected at this level. 2. Wedge-shaped mixed signal material identified in the T12-L1 level is most likely combination of fibrosis and chronic seroma/proteinaceous material. 3. Some serpiginous low signal material is identified at the periphery of this complex collection which was more well formed on the prior MRI and appears to be surgically intentionally placed material. 4. A fluid/fluid level is seen within this material. There is mild peripheral enhancement around this material/complex fluid on the postcontrast study likely due to the investing capsule or fibrosis. Enhancement is also seen in circumferential fibrotic material of the epidural space which contributes to mass effect on the thecal sac. 5. Multilevel degenerative changes so which are moderate to severe 6. Malignant infiltration is not favored in the remaining bony fragments and disc space of T12-L1 or prior surgical partial vertebrectomy/resection has occurred. Secondary infection of the material and degeneration is favored. 7. Correlation with nuclear medicine bone scan can be obtained for evaluation of malignancy or direct biopsy by the interventional or spine surgery service can be performed for definitive diagnosis. Electronically Signed: Justin Treadwell MD at 21:11 EDT , Service support ,
[2020-04-12] MEDS: LORazepam 0.5 MG Tablet PO (18:23)
[2020-04-12] MEDS: Ipratropium/Albuterol Sulfate 3 ML AMPUL.NEB INHALATION (20:29)
[2020-04-12] MEDS: Methenamine Hippurate 1 GM Tablet PO (21:25)
[2020-04-12] MEDS: Metoprolol Tartrate 50 MG Tablet PO (21:26)
[2020-04-12] MEDS: Sertraline 100 MG Tablet PO (21:26)
[2020-04-12] MEDS: Pravastatin 40 MG Tablet PO (21:26)
[2020-04-12] MEDS: Methadone 10 MG Tablet PO (21:31)
[2020-04-13] VITALS (14 sets, daily range): BP systolic 120–153; BP diastolic 53–68; PULSE 56–116; RESP 16–18; TEMP 36.6–37.1; O2SAT 96–100
[2020-04-13 00:24] LABS: Erythrocyte Sedimentation Rate 45 mm/hr (0-30)
[2020-04-13] MEDS: 0.9% Saline Lock 10 ML Syringe IV ×2 (00:45→11:10)
[2020-04-13] MEDS: Ipratropium/Albuterol Sulfate 3 ML AMPUL.NEB INHALATION ×3 (00:50→19:25)
--- NOTE | 2020-04-13 01:14 | PCM.RX.CS ---
Consult Pharmacy has been consulted to manage selected antiobiotic: Vancomycin Type of Consult: New start Suspected Infection: Other Prior Doses of Antibiotics Received/Current Regimen: Medications Vancomycin HCl 1,500 mg/ (Sodium Chloride) 530 mls @ 250 mls/hr IV Q24H PEEWEE Vancomycin HCl 2,000 mg/ (Sodium Chloride) 540 mls @ 250 mls/hr IV X1 ONE Stop: 04/13/20 02:39 Last Admin: 04/13/20 00:38 Dose: 250 mls/hr Labs: Sodium 138 mmol/L (136-145) 04/12/20 10:41 Potassium 4.4 mmol/L (3.5-5.1) 04/12/20 10:41 Chloride 103 mmol/L (98-107) 04/12/20 10:41 Carbon Dioxide 30.0 mmol/L (21.0-32.0) 04/12/20 10:41 Anion Gap 5 (5-15) 04/12/20 10:41 BUN 37 mg/dL (7-18) H 04/12/20 10:41 Creatinine 1.00 mg/dL (0.55-1.02) 04/12/20 10:41 Est GFR (MDRD) Af Amer 70 mL/min (>60) 04/12/20 10:41 Est GFR (MDRD) Non-Af 58 mL/min (>60) L 04/12/20 10:41 BUN/Creatinine Ratio 37.1 RATIO (10-20) H 04/12/20 10:41 Glucose 98 mg/dL (74-106) 04/12/20 10:41 Weight used for dosin.2 kg Estimated Creatinine Clearance: 35.5 Goal Trough: 15-20 mcg/mL Pharmacy Plan for Drug Dosing: Pharmacy Service will continue to monitor and adjust dosing as required. Follow-Up Labs: Trough Vancomycin Labs to be done on [date and time ordered]: 04/15/20 @0000
--- NOTE | 2020-04-13 01:30 | NURSING ---
[facility] staff unable to find what facility patient had back surgery at
[2020-04-13 06:02] LABS: Absolute Lymphocyte Count 2.28 X10^3/uL (0.83-4.51); Absolute Neutrophil Count 4.7 X10^3/uL (2.0-7.7); Basophil# 0.04 X10^3/uL; Basophil% 0.5 % (0-1); Eosinophil# 0.32 X10^3/uL; Hematocrit 27.3 % (37-47); Hemoglobin 8.5 g/dL (12.0-15.0); Lymphocyte # 2.28 X10^3/ul (4.0); Lymphocyte % 28.4 % (19-41); Mean Corp Hgb Conc 31.1 g/dL (32-36); Mean Corpuscular Hgb 31.1 pg (27.0-32.0); Mean Platelet Vol. 9.3 fl (6.2-12.0); Monocyte# 0.62 X10^3/uL; Monocyte% 7.7 % (0-10); NRBC Flagged by Analyzer 0 % (0-5); Neutrophil # 4.74 X10^3/uL (2.7-7.7); Platelet Count 283 K/mm3 (150-450); RBC Distribution Width CV 12.6 % (11.6-14.6); RBC Distribution Width SD 45.7 fl (35.1-43.9); Red Blood Count 2.73 M/mm3 (4.2-5.4)
[2020-04-13 06:51] LABS: Anion Gap 5 (5-15); BUN 28 mg/dL (7-18); BUN/Creat Ratio 31.2 RATIO (10-20); Calcium,Total 8.4 mg/dL (8.5-10.1); Chloride 105 mmol/L (98-107); EST Glomerular Filtration Rate 65 mL/min (>60); Est Glom Filt Rate - Afr Amer 79 mL/min (>60); Estimated Creatinine Clearance 39.39 ml/min; Glucose 91 mg/dL (74-106); Sodium Level 139 mmol/L (136-145)
--- NOTE | 2020-04-13 07:18 | PCA ---
RECIEVED MEDICAL RECORDS FROM [facility]
--- NOTE | 2020-04-13 08:27 | PCM.PN.HOSP ---
Patient Problems: Active and Suspected Problems (Last Updated 08/14/19 @ 09:[address] Rula Whitehead MD) Soft tissue mass (Acute) UTI (urinary tract infection) (Acute) T12 destruction (Acute) Vitals/I&O's: Vital Signs Temp Pulse Resp BP Pulse Ox 98.6 F 61 16 131/53 H 98 04/13/20 04:00 04/13/20 06:51 04/13/20 06:51 04/13/20 04:00 04/13/20 06:51 Oxygen Flow Rate (L/min) 2 Oxygen Delivery Method Nasal Cannula Weight: 220 lb 14.451 oz Body Mass Index (BMI) 43.1 Intake and Output for Last 24 Hours 04/11/20 04/12/20 04/13/20 23:59 23:59 23:59 Intake Total 1050 / 1460 1971.25 / 1971.25 Output Total 900 / 900 Balance 1050 / 1260 1071.25 / 1071.25 Laboratory Results 04/12/20 10:41: WBC 10.3, RBC 3.08 L, Hgb 9.5 L, Hct 30.9 L, MCV 100.3 H, MCH 30.8, MCHC 30.7 L, RDW Std Deviation 47.1 H, RDW Coeff of Zach 12.8, Plt Count 326, MPV 9.0, Immature Gran % (Auto) 0.300, Neut % (Auto) 70.3 H, Lymph % (Auto) 18.8 L, [place] % (Auto) 7.3, Eos % (Auto) 3.0, Baso % (Auto) 0.3, Absolute Neuts (auto) 7.2, Absolute Lymphs (auto) 1.93, Nucleated RBC % 0 04/12/20 10:41: Sodium 138, Potassium 4.4, Chloride 103, Carbon Dioxide 30.0, Anion Gap 5, BUN 37 H, Creatinine 1.00, Estim Creat Clear Calc 35.45, Est GFR (MDRD) Af Amer 70, Est GFR (MDRD) Non-Af 58 L, BUN/Creatinine Ratio 37.1 H, Glucose 98, Calcium 8.9, Total Bilirubin 0.30, AST 27, ALT 26, Alkaline Phosphatase 75, Total Protein 6.9, Albumin 2.9 L, Globulin 4.0, Albumin/Globulin Ratio 0.7 L, Lipase 119 04/12/20 10:41: Total Protein (PEP) Pending, IgG Pending, IgA Pending, IgM Pending, Albumin (ARMEN) Pending, Albumin/Globulin (ARMEN) Pending, [id number] ARMEN Pending, Qrqos-[id number] ARMEN Pending, Beta-Globulins (ARMEN) Pending, Gamma Globulins (ARMEN) Pending, ARMEN M-[place] Pending, Free [place] LC, Quant Pending, Free Lambda LC, Quant Pending, Free [place]/Lambda Ratio Pending 04/12/20 10:41: ESR 45 H 04/12/20 10:41: C-React Prot Ext Range 27.10 H 04/12/20 11:50: Urine Color Yellow, Urine Clarity Sl. Cloudy, Urine pH 5.0, Ur Specific [place] 1.010, Urine Protein Negative, Urine Glucose (UA) Normal, Urine Ketones Negative, Urine Occult Blood 150 H, Urine Nitrite Positive H, Urine Bilirubin Negative, Urine Urobilinogen Normal, Ur Leukocyte Esterase 500 H, Urine RBC 10-25 SEEN, Urine WBC 50-100 SEEN, Ur Squamous Epith Cells 0-5 SEEN, Urine Bacteria 1+, Urine Mucus 0 SEEN 04/13/20 05:39: Sodium 139, Potassium 4.0, Chloride 105, Carbon Dioxide 29.0, Anion Gap 5, BUN 28 H, Creatinine 0.90, Estim Creat Clear Calc 39.39, Est GFR (MDRD) Af Amer 79, Est GFR (MDRD) Non-Af 65, BUN/Creatinine Ratio 31.2 H, Glucose 91, Calcium 8.4 L 04/13/20 05:39: WBC 8.0, RBC 2.73 L, Hgb 8.5 L, Hct 27.3 L, MCV 100.0 H, MCH 31.1, MCHC 31.1 L, RDW Std Deviation 45.7 H, RDW Coeff of Zach 12.6, Plt Count 283, MPV 9.3, Immature Gran % (Auto) 0.400, Neut % (Auto) 59.0, Lymph % (Auto) 28.4, [place] % (Auto) 7.7, Eos % (Auto) 4.0, Baso % (Auto) 0.5, Absolute Neuts (auto) 4.7, Absolute Lymphs (auto) 2.28, Nucleated RBC % 0 Current Medications Acetaminophen (Tylenol) 650 mg PO Q6H PRN PRN PRN Reason: Pain Score 1-10/Temp > 100.7 F Albuterol Sulfate (Ventolin Aerosols) 2.5 mg INHALATION Q2H PRN PRN PRN Reason: Shortness of breath, wheezing Albuterol/Ipratropium (Duoneb) 3 ml INHALATION Q6H.RT [facility] Last Admin: 04/13/20 06:51 Dose: 3 ml Documented by: Docusate Sodium (Colace) 100 mg PO QHS [facility] Last Admin: 04/12/20 21:24 Dose: Not Given Documented by: Enoxaparin Sodium (Lovenox) 40 mg SC DAILY [facility] Ferrous Sulfate (Ferrous Sulfate) 325 mg PO TIDCM [facility] Last Admin: 04/12/20 17:52 Dose: 325 mg Documented by: Gabapentin (Neurontin) 100 mg PO TIDCM [facility] Last Admin: 04/12/20 17:52 Dose: 100 mg Documented by: Hydrochlorothiazide (Hctz) 25 mg PO DAILY [facility] Sodium Chloride () 250 mls @ 15 mls/hr IV .[id number] PRN PRN Reason: Saline Flush Last Infusion: 04/13/20 00:47 Dose: 0 mls/hr Documented by: Sodium Chloride () 250 mls @ 15 mls/hr IV .[id number] PRN PRN Reason: Additional IVPB Infusion Ceftriaxone Sodium 2 gm/ (Sodium Chloride) 50 mls @ 100 mls/hr IV Q24 [facility] Vancomycin IV Pharmacy to Dose (1 ea/ Sodium Chloride) 500 mls @ 250 mls/hr IV PRN PRN; Protocol PRN Reason: Rx to Dose Piperacillin Sod/Tazobactam (Sod 3.375 gm/ Sodium Chloride) 50 mls @ 12.5 mls/hr IV Q8 [facility] Last Admin: 04/13/20 05:21 Dose: 12.5 mls/hr Documented by: Vancomycin HCl 1,500 mg/ (Sodium Chloride) 530 mls @ 250 mls/hr IV Q24H [facility] Iopamidol (Contrast Allergy Check) 0 ml IV X1 [facility] Lisinopril (Zestril) 10 mg PO DAILY [facility] Lorazepam (Ativan) 0.5 mg PO BID PRN PRN Reason: ANXIETY Last Admin: 04/12/20 18:23 Dose: 0.5 mg Documented by: Methadone HCl () 15 mg PO DAILY@0900 [facility] Methadone HCl () 10 mg PO 1200,2200 [facility] Last Admin: 04/12/20 21:31 Dose: 10 mg Documented by: Methenamine Hippurate (Hiprex) 1 gm PO BID [facility] Last Admin: 04/12/20 21:25 Dose: 1 gm Documented by: Metoprolol Tartrate (Lopressor (Beta Greg)) 50 mg PO BID [facility] Last Admin: 04/12/20 21:26 Dose: 50 mg Documented by: Morphine Sulfate () 2 mg IV Q3H PRN PRN PRN Reason: Pain Score 6-10/10 Ondansetron HCl (Zofran) 4 mg IV Q8H PRN PRN PRN Reason: NAUSEA/VOMITING Oxycodone HCl (Oxyir) 5 mg PO Q4H PRN PRN PRN Reason: Pain Score 4-5/10 Last Admin: 04/12/20 17:55 Dose: 5 mg Documented by: Pravastatin Sodium (Pravachol) 40 mg PO QHS [facility] Last Admin: 04/12/20 21:26 Dose: 40 mg Documented by: Senna (Senokot) 1 tablet PO DAILY [facility] Senna/Docusate Sodium (Senokot-S, Destiny-Colace) 2 tablet PO BID PRN PRN PRN Reason: Constipation Sertraline HCl (Zoloft) 100 mg PO QHS [facility] Last Admin: 04/12/20 21:26 Dose: 100 mg Documented by: Sodium Chloride () 10 - 40 ml IV UD PRN PRN Reason: SALINE FLUSH Last Admin: 04/13/20 00:45 Dose: 10 ml Documented by: Sodium Chloride ([place]aver Nasal [place]) 1 spray NASAL DAILY [facility] Zolpidem Tartrate (Ambien (Generic)) 5 mg PO QHS PRN PRN PRN Reason: INSOMNIA STROKE Vital Signs/Narrative: Vital Signs Pulse Resp Pulse Ox 04/13/20 06:51 61 16 98 04/13/20 04:59 57 L Medical Necessity - Tobacco Use Smoking Status: Never smoker Assessment/Plan All Active Problems (Last Updated 08/14/19 @ 09:[address] Rula Whitehead MD) Soft tissue mass (Acute) UTI (urinary tract infection) (Acute) T12 destruction (Acute) This is a 74 years old female patient presented to the emergency room because of right abdominal and right back pain, found to have acute recurrent cystitis, T12/L1 destruction and right paravertebral soft tissue mass and she is being admitted for evaluation and treatment. #1 acute recurrent cystitis/questionable pyelonephritis: In context of recurrent UTI, had episode of UTI last week, received and completed antibiotics. Previous urine cultures reviewed, showed E. coli. Patient is afebrile, no leukocytosis. CT scan abdomen and pelvis revealed mild degree of bilateral hydronephrosis and hydroureter, no evidence of kidney stones. Plan: Admit to [facility] floor, telemetry, urine culture, start IV Rocephin 2 g every 24 hours, gentle IV fluids for hydration, Tylenol PRN, Zofran PRN, repeat CBC and BMP tomorrow morning, PT OT evaluation and treatment. #2 T12/superior aspect of L1 vertebral destruction/intravertebral soft tissue mass: Unclear etiology but because of vertebral dissection, malignancy cannot be ruled out. Plan: IV morphine PRN for pain, OxyIR PRN for pain, oncology consult, consult Dr. Dowling for T12 intravertebral soft tissue mass biopsy. #3 chronic anemia: In the last year, hemograms been around 8 to 10 g/dL. Admission hemoglobin is 9.5 g deciliter, stable at baseline. No evidence of active bleeding. Plan to monitor, continue iron supplement. #4 hypertension: Blood pressure stable, continue HCTZ, lisinopril and metoprolol. #5 chronic pain syndrome/peripheral neuropathy: Stable, continue methadone and Neurontin. #6 anxiety/depression: Stable, continue Lorazepam and Zoloft. #7 COPD/chronic respiratory failure: On oxygen at the care home at 2 L. Plan to continue oxygen, DuoNeb every 6 hours, albuterol PRN, will do chest x-ray. #8 hyperlipidemia: Continue statins. #9 CODE STATUS: Full code. Discussed with the patient and her daughter. #10 DVT prophylaxis: Subcu Lovenox. Case discussed with Dr. Fernandes and he recommended total body bone scan, MRI cervical, thoracic and lumbar spine with contrast if patient tolerates. He stated that Dr. Dowling does not do bone biopsies. Orders for whole body bone scan, MRI cervical, thoracic and lumbar spine with contrast were ordered. We will cancel consult for Dr. Dowling.
[2020-04-13] MEDS: Ferrous Sulfate 325 MG Tablet PO ×3 (09:04→17:19)
[2020-04-13] MEDS: Gabapentin 100 MG Capsule PO ×3 (09:04→17:19)
[2020-04-13] MEDS: Methenamine Hippurate 1 GM Tablet PO ×2 (09:05→20:57)
[2020-04-13] MEDS: hydroCHLOROthiazide 25 MG Tablet PO (09:05)
[2020-04-13 09:12] LABS: Ferritin 57 ng/mL (8-252); Iron 33 ug/dL (50-170); Iron Binding Capacity,Total 271 ug/dL (250-450); PERCENT IRON SATURATION 12.2 % (15.0-55.0)
--- NOTE | 2020-04-13 10:51 | CASEMGMT ---
Social Work Note Pt is listed as being from [facility]. Pt is being transferred out. SW placed a call to Yanely at [facility] and updated her that pt will be transferred out. Shauna Galvin MEDICAL CARE ADMINISTRATOR, INTAKE ASSESSOR
[2020-04-13 11:13] LABS: Vitamin B12 315 pg/mL (211-911)
[2020-04-13] MEDS: Enoxaparin 40 MG/0.4 ML Syringe SC (11:20)
[2020-04-13] MEDS: Sodium Chloride 0.65% 1 SPRAY SPRAY.BTL NASAL (11:20)
[2020-04-13] MEDS: Metoprolol Tartrate 50 MG Tablet PO ×2 (11:20→20:57)
[2020-04-13] MEDS: Lisinopril 10 MG Tablet PO (11:21)
[2020-04-13] MEDS: Methadone 10 MG Tablet PO ×2 (11:29→20:57)
--- NOTE | 2020-04-13 11:37 | PCM.DC.SUM ---
Discharge Date and Diagnosis - Problem List Patient Problems: Active and Suspected Problems (Last Updated 08/14/19 @ 09:[address] Rula Whitehead MD) Soft tissue mass (Acute) UTI (urinary tract infection) (Acute) T12 destruction (Acute) Date of Admission: 04/12/20 Date of Discharge: 04/13/20 - Primary Discharge Diagnosis Acute Problems: Active Problems (Last Updated 08/14/19 @ 09:[address] 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 Rula Whitehead MD) Chronic obstructive pulmonary disease (Chronic) Chronic back pain (Chronic) Essential (primary) hypertension (Chronic) Cardiomyopathy in diseases classified elsewhere (Chronic) Nonrheumatic tricuspid (valve) insufficiency (Chronic) Hyperlipidemia (Chronic) Hospital Course and Treatment Operations: None Summary of Care Provided: This is a 74 years old female patient who was [facility] through ER because of right lumbar back pain with radiation to right upper abdomen and across left side for 7 to 10 days with history of chronic back pain, T12/L1 destruction and right paravertebral soft tissue mass. 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 Based admitted most likely combination of fibrosis and chronic seroma/proteinaceous material at T12-L1 level probably reflecting inflammatory mass/phlegmon rule out abscess. Is also fluid level around T12-L1 with peripheral enhancement probably capsular fibrosis. Because of this complex finding of of MRI, patient needs spine servant evaluation, bone biopsy and possible debridement surgery. Finding was discussed with patient's daughter who agreed for transfer. After that transfer line of [facility] was called. Patient accepted by hospitalist Dr. Jovanni Damico. The patient was started on IV vancomycin and Zosyn. ID consult was done. Antibiotic changed to cefepime and vancomycin. 2. Colonization/asymptomatic bacteriuria on chronic recurrent cystitis with bilateral mild hydronephrosis and hydroureter and chronic cystocele: Currently patient denies dysuria but has history of chronic urinary incontinence, urge incontinence and leaks urine. UA of WBC 50?100 cells and 1+ bacteria it seems colonization/asymptomatic bacteria. Patient does not have Rees catheter. 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 Acute UTI ruled out #3 chronic anemia: In the last year, hemoglobin been around 8 to 10 g/dL. Hemoglobin last is 8.5 g. On iron sulfate. #4 hypertension: Blood pressure stable, continue HCTZ, lisinopril and metoprolol. #5 chronic pain syndrome/peripheral neuropathy: Stable, continue methadone and Neurontin. #6 anxiety/depression: Stable, continue Lorazepam and Zoloft. #7 COPD/chronic respiratory failure: [facility]. Plan to continue oxygen, DuoNeb every 6 hours, albuterol PRN, will do chest x-ray. #8 hyperlipidemia: Continue statins. #9 CODE STATUS: Full code. Discussed with the patient and her daughter. #10 DVT prophylaxis: Subcu Lovenox. Case discussed with Dr. Fernandes and he thinks MRI findings are more consistent with inflammatory/infectious mass and very less likely neoplastic. He agrees with the plan of going forward with bone biopsy and transfer to tertiary care hospital. Clinical Impression(s) from Imaging Studies Abdomen/Pelvis CT 04/12/20 10:17 IMPRESSION: Destruction of the T12 vertebrae and the superior aspect of the L1 vertebrae. Mild degree of bilateral hydronephrosis and hydroureter. Cystocele with the diffuse bladder wall thickening. Bone Scan Nuclear Medicine 04/12/20 16:03 IMPRESSION: Increased radiopharmaceutical uptake at the thoracal lumbar region as well as the manubrium of the sternum. No plastic/inflammatory process should be ruled out. Increased uptake is also seen at the level of the left knee joint and both shoulder joints most likely degenerative in nature. Chest X-Ray 04/12/20 16:22 IMPRESSION: Linear opacity in the midlung calixto bilaterally, likely representing atelectasis. Otherwise, clear lungs. Cervical Spine MRI 04/12/20 18:00 IMPRESSION: 1. Mild to moderate central canal stenosis without cord compression demonstrated at the foramen magnum, C3-C4, C6-C7, and C7-T1. Lumbar Spine MRI 04/12/20 18:00 IMPRESSION: Complex chronic process with possible superinfection at T12-L1 Probable early osteomyelitis and discitis at T11-T12 1. Mild enhancement is also present in the endplates and disc of T11-T12 with no demonstrated cortical erosion or bony destruction or intradiscal fluid; acute inflammation and possibly early osteomyelitis suspected at this level. 2. Wedge-shaped mixed signal material identified in the T12-L1 level is most likely combination of fibrosis and chronic seroma/proteinaceous material. 3. Some serpiginous low signal material is identified at the periphery of this complex collection which was more well formed on the prior MRI and appears to be surgically intentionally placed material. 4. A fluid/fluid level is seen within this material. There is mild peripheral enhancement around this material/complex fluid on the postcontrast study likely due to the investing capsule or fibrosis. Enhancement is also seen in circumferential fibrotic material of the epidural space which contributes to mass effect on the thecal sac. 5. Multilevel degenerative changes so which are moderate to severe 6. Malignant infiltration is not favored in the remaining bony fragments and disc space of T12-L1 or prior surgical partial vertebrectomy/resection has occurred. Secondary infection of the material and degeneration is favored. 7. Correlation with nuclear medicine bone scan can be obtained for evaluation of malignancy or direct biopsy by the interventional or spine surgery service can be performed for definitive diagnosis. Thoracic Spine MRI 04/12/20 18:00 IMPRESSION: Complex chronic process with possible superinfection at T12-L1 Probable early osteomyelitis and discitis at T11-T12 1. Mild enhancement is also present in the endplates and disc of T11-T12 with no demonstrated cortical erosion or bony destruction or intradiscal fluid; acute inflammation and possibly early osteomyelitis suspected at this level. 2. Wedge-shaped mixed signal material identified in the T12-L1 level is most likely combination of fibrosis and chronic seroma/proteinaceous material. 3. Some serpiginous low signal material is identified at the periphery of this complex collection which was more well formed on the prior MRI and appears to be surgically intentionally placed material. 4. A fluid/fluid level is seen within this material. There is mild peripheral enhancement around this material/complex fluid on the postcontrast study likely due to the investing capsule or fibrosis. Enhancement is also seen in circumferential fibrotic material of the epidural space which contributes to mass effect on the thecal sac. 5. Multilevel degenerative changes so which are moderate to severe Electronically Signed: Justin Treadwell MD at 20:50 EDT , Service support , Patient Problems: Active and Suspected Problems (Last Updated 08/14/19 @ 09:[address] Rula Whitehead MD) Soft tissue mass (Acute) UTI (urinary tract infection) (Acute) T12 destruction (Acute) Objective: Seen and examined. Patient has history of chronic back pain for 20 years. And cervical spine and lumbar spine surgery. As per the patient, she is not on feet for about 20 years and has been bedridden. Bilateral lower extremity weakness. This time, she had right lumbar back pain for about 7 to 10 days with intermittent fever and chills. Denies dysuria but has history of chronic UTI. UA positive for 5200 WBCs and 1+ bacteria. Physical exam General: Alert, Oriented x3, Cooperative, morbid obesity HEENT: Atraumatic, PERRLA, EOMI, Normocephalic Oral: No Gingival or Mucosal Lesions/ Ulcerations Neck: Supple, No JVD, Negative Carotid Bruits Lungs: Air entry diminished in bilateral lung bases. No crepitation/rhonchi Cardiovascular: Regular rate, Regular Rhythm, Normal S1, Normal S2, systolic murmur over LLSB. Abdomen: Bowel Sounds Present, Soft, Non Tender, Non-Distended : No renal angle tenderness. No suprapubic tenderness. Extremities: Bilateral ankle and lower leg edema, Capillary Refill Less than 3 Seconds Skin: No rashes, No breakdown Musculoskeletal: Bilateral lower leg weakness, power 3/5. Range of motion decreased. Spine: Tenderness present over right lumbar area from T11-L4 region. Point tenderness over T11- L 1 Neurological: Cranial nerves II-XII grossly intact, Deep Tendon Reflexes 2+/4 and Symmetrical, Neuro grossly intact Psych/Mental Status: Normal Affect, Appropriate. - Physical Exam Vitals/I&O's: Vital Signs Temp Pulse Resp BP Pulse Ox 97.8 F 61 16 153/68 H 96 04/13/20 08:27 04/13/20 08:27 04/13/20 08:27 04/13/20 08:27 04/13/20 08:27 Oxygen Flow Rate (L/min) 2 Oxygen Delivery Method Room Air Weight: 220 lb 14.451 oz Body Mass Index (BMI) 43.1 Intake and Output for Last 24 Hours 04/11/20 04/12/20 04/13/20 23:59 23:59 23:59 Intake Total 1050 / 1460 1971.25 / 1971.25 Output Total 900 / 900 Balance 1050 / 1260 1071.25 / 1071.25 Laboratory Results 04/12/20 10:41: WBC 10.3, RBC 3.08 L, Hgb 9.5 L, Hct 30.9 L, MCV 100.3 H, MCH 30.8, MCHC 30.7 L, RDW Std Deviation 47.1 H, RDW Coeff of Zach 12.8, Plt Count 326, MPV 9.0, Immature Gran % (Auto) 0.300, Neut % (Auto) 70.3 H, Lymph % (Auto) 18.8 L, [place] % (Auto) 7.3, Eos % (Auto) 3.0, Baso % (Auto) 0.3, Absolute Neuts (auto) 7.2, Absolute Lymphs (auto) 1.93, Nucleated RBC % 0 04/12/20 10:41: Sodium 138, Potassium 4.4, Chloride 103, Carbon Dioxide 30.0, Anion Gap 5, BUN 37 H, Creatinine 1.00, Estim Creat Clear Calc 35.45, Est GFR (MDRD) Af Amer 70, Est GFR (MDRD) Non-Af 58 L, BUN/Creatinine Ratio 37.1 H, Glucose 98, Calcium 8.9, Total Bilirubin 0.30, AST 27, ALT 26, Alkaline Phosphatase 75, Total Protein 6.9, Albumin 2.9 L, Globulin 4.0, Albumin/Globulin Ratio 0.7 L, Lipase 119 04/12/20 10:41: Total Protein (PEP) Pending, IgG Pending, IgA Pending, IgM Pending, Albumin (ARMEN) Pending, Albumin/Globulin (ARMEN) Pending, [id number] ARMEN Pending, [id number] ARMEN Pending, Beta-Globulins (ARMEN) Pending, Gamma Globulins (ARMEN) Pending, ARMEN M-[place] Pending, Free [place] LC, Quant Pending, Free Lambda LC, Quant Pending, Free [place]/Lambda Ratio Pending 04/12/20 10:41: ESR 45 H 04/12/20 10:41: C-React Prot Ext Range 27.10 H 04/12/20 11:50: Urine Color Yellow, Urine Clarity Sl. Cloudy, Urine pH 5.0, Ur Specific [place] 1.010, Urine Protein Negative, Urine Glucose (UA) Normal, Urine Ketones Negative, Urine Occult Blood 150 H, Urine Nitrite Positive H, Urine Bilirubin Negative, Urine Urobilinogen Normal, Ur Leukocyte Esterase 500 H, Urine RBC 10-25 SEEN, Urine WBC 50-100 SEEN, Ur Squamous Epith Cells 0-5 SEEN, Urine Bacteria 1+, Urine Mucus 0 SEEN 04/13/20 05:39: Sodium 139, Potassium 4.0, Chloride 105, Carbon Dioxide 29.0, Anion Gap 5, BUN 28 H, Creatinine 0.90, Estim Creat Clear Calc 39.39, Est GFR (MDRD) Af Amer 79, Est GFR (MDRD) Non-Af 65, BUN/Creatinine Ratio 31.2 H, Glucose 91, Calcium 8.4 L 04/13/20 05:39: WBC 8.0, RBC 2.73 L, Hgb 8.5 L, Hct 27.3 L, MCV 100.0 H, MCH 31.1, MCHC 31.1 L, RDW Std Deviation 45.7 H, RDW Coeff of Zach 12.6, Plt Count 283, MPV 9.3, Immature Gran % (Auto) 0.400, Neut % (Auto) 59.0, Lymph % (Auto) 28.4, [place] % (Auto) 7.7, Eos % (Auto) 4.0, Baso % (Auto) 0.5, Absolute Neuts (auto) 4.7, Absolute Lymphs (auto) 2.28, Nucleated RBC % 0 04/13/20 05:39: Vitamin B12 Pending 04/13/20 05:39: Iron 33 L, TIBC 271, Iron Saturation 12.2 L, Ferritin 57 Current Medications Acetaminophen (Tylenol) 650 mg PO Q6H PRN PRN PRN Reason: Pain Score 1-10/Temp > 100.7 F Albuterol Sulfate (Ventolin Aerosols) 2.5 mg INHALATION Q2H PRN PRN PRN Reason: Shortness of breath, wheezing Albuterol/Ipratropium (Duoneb) 3 ml INHALATION Q6H.RT COUNT INCLUDES THE [facility] Last Admin: 04/13/20 06:51 Dose: 3 ml Documented by: Docusate Sodium (Colace) 100 mg PO QHS COUNT INCLUDES THE [facility] Last Admin: 04/12/20 21:24 Dose: Not Given Documented by: Enoxaparin Sodium (Lovenox) 40 mg SC DAILY COUNT INCLUDES THE [facility] Ferrous Sulfate (Ferrous Sulfate) 325 mg PO TIDCM COUNT INCLUDES THE [facility] Last Admin: 04/13/20 09:04 Dose: 325 mg Documented by: Gabapentin (Neurontin) 100 mg PO TIDCM COUNT INCLUDES THE [facility] Last Admin: 04/13/20 09:04 Dose: 100 mg Documented by: Hydrochlorothiazide (Hctz) 25 mg PO DAILY COUNT INCLUDES THE [facility] Last Admin: 04/13/20 09:05 Dose: 25 mg Documented by: Sodium Chloride () 250 mls @ 15 mls/hr IV .[id number] PRN PRN Reason: Saline Flush Last Infusion: 04/13/20 00:47 Dose: 0 mls/hr Documented by: Sodium Chloride () 250 mls @ 15 mls/hr IV .[id number] PRN PRN Reason: Additional IVPB Infusion Ceftriaxone Sodium 2 gm/ (Sodium Chloride) 50 mls @ 100 mls/hr IV Q24 COUNT INCLUDES THE [facility] Vancomycin IV Pharmacy to Dose (1 ea/ Sodium Chloride) 500 mls @ 250 mls/hr IV PRN PRN; Protocol PRN Reason: Rx to Dose Piperacillin Sod/Tazobactam (Sod 3.375 gm/ Sodium Chloride) 50 mls @ 12.5 mls/hr IV Q8 COUNT INCLUDES THE [facility] Last Admin: 04/13/20 05:21 Dose: 12.5 mls/hr Documented by: Vancomycin HCl 1,500 mg/ (Sodium Chloride) 530 mls @ 250 mls/hr IV Q24H COUNT INCLUDES THE [facility] Iopamidol (Contrast Allergy Check) 0 ml IV X1 COUNT INCLUDES THE [facility] Lisinopril (Zestril) 10 mg PO DAILY COUNT INCLUDES THE [facility] Lorazepam (Ativan) 0.5 mg PO BID PRN PRN Reason: ANXIETY Last Admin: 04/12/20 18:23 Dose: 0.5 mg Documented by: Methadone HCl () 15 mg PO DAILY@0900 COUNT INCLUDES THE [facility] Last Admin: 04/13/20 09:04 Dose: 15 mg Documented by: Methadone HCl () 10 mg PO 1200,2200 COUNT INCLUDES THE [facility] Last Admin: 04/12/20 21:31 Dose: 10 mg Documented by: Methenamine Hippurate (Hiprex) 1 gm PO BID COUNT INCLUDES THE [facility] Last Admin: 04/13/20 09:05 Dose: 1 gm Documented by: Metoprolol Tartrate (Lopressor (Beta Greg)) 50 mg PO BID COUNT INCLUDES THE [facility] Last Admin: 04/12/20 21:26 Dose: 50 mg Documented by: Morphine Sulfate () 2 mg IV Q3H PRN PRN PRN Reason: Pain Score 6-10/10 Ondansetron HCl (Zofran) 4 mg IV Q8H PRN PRN PRN Reason: NAUSEA/VOMITING Oxycodone HCl (Oxyir) 5 mg PO Q4H PRN PRN PRN Reason: Pain Score 4-5/10 Last Admin: 04/12/20 17:55 Dose: 5 mg Documented by: Pravastatin Sodium (Pravachol) 40 mg PO QHS COUNT INCLUDES THE [facility] Last Admin: 04/12/20 21:26 Dose: 40 mg Documented by: Senna (Senokot) 1 tablet PO DAILY COUNT INCLUDES THE [facility] Senna/Docusate Sodium (Senokot-S, Destiny-Colace) 2 tablet PO BID PRN PRN PRN Reason: Constipation Sertraline HCl (Zoloft) 100 mg PO QHS COUNT INCLUDES THE [facility] Last Admin: 04/12/20 21:26 Dose: 100 mg Documented by: Sodium Chloride () 10 - 40 ml IV UD PRN PRN Reason: SALINE FLUSH Last Admin: 04/13/20 00:45 Dose: 10 ml Documented by: Sodium Chloride ([place] Nasal [place]) 1 spray NASAL DAILY COUNT INCLUDES THE [facility] Zolpidem Tartrate (Ambien (Generic)) 5 mg PO QHS PRN PRN PRN Reason: INSOMNIA Home Medications: Medications to take at Discharge Methadone HCl 10 mg PO BID 10/04/15 Sertraline HCl [Zoloft] 100 mg PO QHS 10/04/15 Metoprolol Tartrate [Lopressor (beta greg)] 50 mg PO BID 06/10/17 pravastatin 40 mg tablet 40 mg PO QHS 01/17/18 hydrochlorothiazide 25 mg tablet 25 mg PO DAILY 12/03/18 Docusate Sodium [Colace] 100 mg PO QHS 04/21/19 Ergocalciferol (Vitamin D2) [Vitamin D2] 50,000 unit PO MO 04/21/19 Methadone HCl 15 mg PO DAILY@0900 04/21/19 Multivitamin with Minerals [Multiple Vitamin] 1 ea PO DAILY 04/21/19 Polyethylene Glycol 3350 [Miralax] 17 gm PO DAILY 04/21/19 ferrous sulfate 325 mg (65 mg iron) tablet 325 mg PO TIDCM 05/26/19 Sodium Chloride [Saline Nasal [place]] 1 spray NS DAILY 08/13/19 Acetaminophen [Tylenol Tablet] 650 mg PO Q6H PRN PRN tab 08/15/19 lorazepam 0.5 mg tablet 0.5 mg PO BID PRN 09/11/19 Ascorbic Acid [Vitamin C] 500 mg PO BID 04/12/20 Fluticasone Propion/Salmeterol [Wixela 250-50 Inhub] 1 puff INHALATION BID 04/12/20 Gabapentin [Neurontin] 100 mg PO TIDCM 04/12/20 Gabapentin [Neurontin] 300 mg PO QHS 04/12/20 Lisinopril 10 mg PO DAILY 04/12/20 Methenamine Hippurate [Hiprex] 1 gm PO BID 04/12/20 Ondansetron HCl [Zofran] 4 mg PO Q4H PRN PRN 04/12/20 Pomegranate Fruit Extract [Pomegranate] 500 mg PO DAILY 04/12/20 Potassium Chloride [Klor-Con M20] 40 meq PO DAILY 04/12/20 Sennosides/Docusate Sodium [Senna Plus 8.6-50 mg Tablet] 1 tab PO DAILY 04/12/20 Primary Care Physician: Wolf Berry [Primary Care Provider] - Medical Necessity - Tobacco Use Smoking Status: Never smoker Meaningful Use Info Meaningful Use Diagnoses (Choose all that apply): None applicable Inpatient E&M: 14568 [facility] L3
--- NOTE | 2020-04-13 19:06 | PCM.HP.ID ---
Problem List (1) T12 destruction Status: Acute Reason for Consult: spine infection Consulted by: Dr. Rebollar History of Present Illness: The patient is a 74 year old F with h/o spine surgery 2012 complicated by infection, presented with 10 days of R sided back/abd pain. Sx started 04/03. No recent trauma. Pain continued, had some radiation down RLE. Denies fever. Sx worsened, came to ED, admitted on vanc/ceftriaxone then zosyn added. MRI shows thoracic osteo/diskitis and possible abscess. Transfer planned. Feeling about the same today. Reports several years of BLE weakness, nerve problems. Full ROS performed and neg except as noted above. - Medical History Past Medical History (Chronic Problems): Chronic Problems (Last Updated 08/14/19 @ 09:[address] Rula Whitehead MD) Chronic obstructive pulmonary disease (Chronic) Chronic back pain (Chronic) Essential (primary) hypertension (Chronic) Cardiomyopathy in diseases classified elsewhere (Chronic) Nonrheumatic tricuspid (valve) insufficiency (Chronic) Hyperlipidemia (Chronic) Allergies/Adverse Reactions: Allergies amoxicillin [From Augmentin] Adverse Reaction (Verified 09/11/19 14:22) Nausea/Vom/Diarrhea clavulanic acid [From Augmentin] Adverse Reaction (Verified 09/11/19 14:22) Nausea/Vom/Diarrhea nitrofurantoin macrocrystalline [From Macrodantin] Adverse Reaction (Verified 09/11/19 14:22) Vomiting sulfamethoxazole [From Bactrim] Adverse Reaction (Verified 09/11/19 14:22) Nausea/Vom/Diarrhea trimethoprim [From Bactrim] Adverse Reaction (Verified 09/11/19 14:22) Nausea/Vom/Diarrhea Home Medications: Ambulatory Orders Medication Instructions Recorded Methadone HCl 10 mg PO BID 10/04/15 Sertraline HCl [Zoloft] 100 mg PO QHS 10/04/15 Metoprolol Tartrate [Lopressor 50 mg PO BID 06/10/17 (beta melissa)] pravastatin 40 mg tablet 40 mg PO QHS 01/17/18 hydrochlorothiazide 25 mg tablet 25 mg PO DAILY 12/03/18 Docusate Sodium [Colace] 100 mg PO QHS 04/21/19 Ergocalciferol (Vitamin D2) 50,000 unit PO MO 04/21/19 [Vitamin D2] Methadone HCl 15 mg PO DAILY@0900 04/21/19 Multivitamin with Minerals 1 ea PO DAILY 04/21/19 [Multiple Vitamin] Polyethylene Glycol 3350 [Miralax] 17 gm PO DAILY 04/21/19 ferrous sulfate 325 mg (65 mg 325 mg PO TIDCM 05/26/19 iron) tablet Sodium Chloride [Saline Nasal 1 spray NS DAILY 08/13/19 [place]] Acetaminophen [Tylenol Tablet] 650 mg PO Q6H PRN PRN tab 08/15/19 lorazepam 0.5 mg tablet 0.5 mg PO BID PRN 09/11/19 Ascorbic Acid [Vitamin C] 500 mg PO BID 04/12/20 Fluticasone Propion/Salmeterol 1 puff INHALATION BID 04/12/20 [Wixela 250-50 Inhub] Gabapentin [Neurontin] 100 mg PO TIDCM 04/12/20 Gabapentin [Neurontin] 300 mg PO QHS 04/12/20 Lisinopril 10 mg PO DAILY 04/12/20 Methenamine Hippurate [Hiprex] 1 gm PO BID 04/12/20 Ondansetron HCl [Zofran] 4 mg PO Q4H PRN PRN 04/12/20 Pomegranate Fruit Extract 500 mg PO DAILY 04/12/20 [Pomegranate] Potassium Chloride [Klor-Con M20] 40 meq PO DAILY 04/12/20 Sennosides/Docusate Sodium [Senna 1 tab PO DAILY 04/12/20 Plus 8.6-50 mg Tablet] - Social History Tobacco Use: non-smoker Vital Signs Temp Pulse Resp BP Pulse Ox 98.0 F 56 L 16 120/66 98 04/13/20 14:22 04/13/20 14:22 04/13/20 14:22 04/13/20 14:22 04/13/20 14:22 Oxygen Flow Rate (L/min) 2 Oxygen Delivery Method Nasal Cannula Weight: 100.2 kg Body Mass Index (BMI) 43.1 Microbiology Past 72 Hours 04/12/20 11:50 Urine Culture - Preliminary Urine Catheter - 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 Laboratory Tests Past 24 Hrs 04/12/20 04/12/20 04/13/20 10:41 10:41 05:39 WBC RBC Hgb Hct MCV MCH MCHC RDW Std Deviation RDW Coeff of Zach Plt Count MPV Immature Gran % (Auto) Neut % (Auto) Lymph % (Auto) [place] % (Auto) Eos % (Auto) Baso % (Auto) Absolute Neuts (auto) Absolute Lymphs (auto) Nucleated RBC % ESR 45 H Sodium 139 Potassium 4.0 Chloride 105 Carbon Dioxide 29.0 Anion Gap 5 BUN 28 H Creatinine 0.90 Estim Creat Clear Calc 39.39 Est GFR (MDRD) Af Amer 79 Est GFR (MDRD) Non-Af 65 BUN/Creatinine Ratio 31.2 H Glucose 91 Calcium 8.4 L Iron TIBC Iron Saturation Ferritin C-React Prot Ext Range 27.10 H Vitamin B12 04/13/20 04/13/20 04/13/20 05:39 05:39 05:39 WBC 8.0 RBC 2.73 L Hgb 8.5 L Hct 27.3 L MCV 100.0 H MCH 31.1 MCHC 31.1 L RDW Std Deviation 45.7 H RDW Coeff of Zach 12.6 Plt Count 283 MPV 9.3 Immature Gran % (Auto) 0.400 Neut % (Auto) 59.0 Lymph % (Auto) 28.4 [place] % (Auto) 7.7 Eos % (Auto) 4.0 Baso % (Auto) 0.5 Absolute Neuts (auto) 4.7 Absolute Lymphs (auto) 2.28 Nucleated RBC % 0 ESR Sodium Potassium Chloride Carbon Dioxide Anion Gap BUN Creatinine Estim Creat Clear Calc Est GFR (MDRD) Af Amer Est GFR (MDRD) Non-Af BUN/Creatinine Ratio Glucose Calcium Iron 33 L TIBC 271 Iron Saturation 12.2 L Ferritin 57 C-React Prot Ext Range Vitamin B12 315 - Other Studies Radiology: [] reviewed Other Studies: [] Route of nutrition/ use of supplements: [] Nutritional Intake: [] IV Site: [] Rees Catheter: [] - Physical Exam General: Alert, Cooperative, No apparent distress HEENT: Atraumatic, PERRLA, EOMI Neck: Supple, No Nodes Lungs: Clear to auscultation, Normal air movement Cardiovascular: Regular rate, Regular Rhythm Abdomen: Soft, Non Tender, Non-Distended Extremities: No edema Skin: No rashes IV Site: Peripheral, without redness Musculoskeletal: - - Mild tenderness over lower thoracic spine Neurological: Cranial nerves II-XII grossly intact - weakness in BLE - Assessment/Plan Antibiotics: [] Assessment/Plan: [] Active and Suspected Problems (Last Updated 08/14/19 @ 09:[address] Rula Whitehead MD) Soft tissue mass (Acute) UTI (urinary tract infection) (Acute) T12 destruction (Acute) Spine abscess/osteo/diskitis - transfer to [facility] planned. Will order bcx x2. Cont vanc, change ceftriaxone and zosyn to cefepime. Possible uti as well with pyuria, ucx with GNR. Will follow, thank you
[2020-04-13] MEDS: Acetaminophen 325 MG Tablet 650 MG PO (20:04)
[2020-04-13] MEDS: Pravastatin 40 MG Tablet PO (20:58)
[2020-04-13] MEDS: Sertraline 100 MG Tablet PO (20:58)
[2020-04-13] MEDS: oxyCODONE 5 MG Tablet PO (21:04)
--- NOTE | 2020-04-13 21:32 | NURSING ---
Pt left with physician's ambulance at 2125hrs. IV saline locked, purewick removed. Pt given oxy IR prior to transport as c/o back pain. Report given to Rajwinder BRADLEY at [facility]. Daughter Naina notified of transfer at this time. Pt will be transferred to Room [address]ico. No further concerns voiced by pt or daughter at time of transfer.
[2020-04-15 20:07] LABS: Alpha-1-Globulins 0.3 g/dL (0.0-0.4); Free Kappa Light Chains 49.3 mg/L (3.3-19.4); Free Lambda Light Chains 34.4 mg/L (5.7-26.3); Immunoglobulin A 220 mg/dL (64-422); Immunoglobulin G 901 mg/dL (586-1602); Immunoglobulin M 137 mg/dL (26-217); PROEL- TOTAL PROTEIN 6.2 g/dL (6.0-8.5)
[2020-04-15 21:39] LABS: IMMUNOFIXATION RESULT,S Comment: (.)
== END 2020-04-13 21:25 | disposition short-term general hospital (02) | DRG 95 ==
LOC: ED 13:50 → MS3 14:52
PROVIDERS: Family Medicine; Internal Medicine Hematology & Oncology; Admitting Provider Hospitalist; Emergency Provider Emergency Medicine; PCP Family Medicine; Visit Provider Internal Medicine
DX: G06.1 Intraspinal abscess and granuloma (principal); M46.24 Osteomyelitis of vertebra, thoracic region; I43 Cardiomyopathy in diseases classified elsewhere; N13.30 Unspecified hydronephrosis; Z68.41 Body mass index [BMI] 40.0-44.9, adult; J96.10 Chronic respiratory failure, unspecified whether with hypoxia or hypercapnia; N30.20 Other chronic cystitis without hematuria; D63.8 Anemia in other chronic diseases classified elsewhere; B96.89 Other specified bacterial agents as the cause of diseases classified elsewhere; M46.44 Discitis, unspecified, thoracic region; E66.01 Morbid (severe) obesity due to excess calories; N81.10 Cystocele, unspecified; I10 Essential (primary) hypertension; E78.5 Hyperlipidemia, unspecified; J44.9 Chronic obstructive pulmonary disease, unspecified; I36.1 Nonrheumatic tricuspid (valve) insufficiency; F41.9 Anxiety disorder, unspecified; F32.9 Major depressive disorder, single episode, unspecified; I73.9 Peripheral vascular disease, unspecified; Z79.899 Other long term (current) drug therapy; G89.4 Chronic pain syndrome; G62.9 Polyneuropathy, unspecified; Z86.14 Personal history of Methicillin resistant Staphylococcus aureus infection; Z99.81 Dependence on supplemental oxygen; Z87.01 Personal history of pneumonia (recurrent)
CPT/HCPCS: 36415; 71045; 72141; 72157; 72158; 74177; 78306; 80048; 80053; 81001; 82607; 82728; 82784; 83540; 83550; 83690; 83883; 84165; 85025; 85652; 86140; 86334; 87040; 87077; 87086; 87088; 87186; 94640; 99251; 99285; A9575; J7030; J7040; J7050; Q9967; A4216; G0463; J0696; J2405

== ENCOUNTER 2021-07-11 19:19 | Emergency (ER) | payer MEDICARE, MEDICAID, SELFPAY ==
[2021-07-11 19:23] VITALS: BP 158/66; PULSE 86; RESP 20; TEMP 36.9; O2SAT 94; BMI 41.5
--- NOTE | 2021-07-11 19:39 | ED.RN ---
SPOKE WITH NITA DWYER. PER NURSE, PT HAS KNOWN UTI (UNKNOWN FOR HOW LONG), AND NOT ACTING HERSELF. PT NORMALLY A&O X3 NOW CONFUSED, MORE LETHARGIC. NURSE CONCERNED FOR SEPSIS. TEMPERATURE 98-99 FOR NITA BANERJEE.
[2021-07-11 19:40] VITALS: BP 158/66; PULSE 86; RESP 20; TEMP 36.9; O2SAT 94
--- NOTE | 2021-07-11 19:59 | RAD_ITS ---
STUDY: XR Chest 1 View 07/11/2021 8:19 PM REASON FOR EXAM: Female, 76 years old. CHEST PAIN cough COMPARISON: None TECHNIQUE: XR Chest 1 View FINDINGS: Right lower lobe infiltrate or atelectasis. Elevated bilateral humeral head with eburnation of the acromion suggest a chronic rotator cuff tear. Cervical spine fusion hardware noted. Enlarged heart size. Normal mediastinum. Normal garrett. Prominent appearing increased interstitial lung markings. Normal visualized pulmonary arteries. There is atherosclerotic calcification of the aortic arch with tortuosity. There are diffuse degenerative changes of the visualized thoracic spine. There is degenerative osteoarthritis of the bilateral shoulders. There is no demonstrated abnormality of the visualized soft tissue structures of the upper abdomen. RAD/Chest 1 View (Portable) IMPRESSION: Right lower lobe infiltrate or atelectasis. Elevated bilateral humeral head with eburnation of the acromion suggest a chronic rotator cuff tear Electronically Signed: Rodrigo Hagen MD at 20:50 EST , Service support ,
[2021-07-11] MEDS: 0.9% Normal Saline 1,000 ML 999 ML IV (20:11)
[2021-07-11 20:14] LABS: Absolute Lymphocyte Count 0.66 X10^3/uL (0.83-4.51); Absolute Neutrophil Count 10.9 X10^3/uL (2.0-7.7); Basophil# 0.02 X10^3/uL; Basophil% 0.2 % (0-1); Eosinophil# 0.07 X10^3/uL; Eosinophils% 0.6 % (0-5); Hematocrit 40.2 % (37-47); Hemoglobin 12.7 g/dL (12.0-15.0); Lymphocyte # 0.66 X10^3/ul (0.83-4.51); Lymphocyte % 5.3 % (19-41); Mean Corp Hgb Conc 31.6 g/dL (32-36); Mean Corpuscular Hgb 30.8 pg (27.0-32.0); Mean Corpuscular Volume 97.3 fL (81-99); Mean Platelet Vol. 9.9 fl (6.2-12.0); Monocyte# 0.67 X10^3/uL; Monocyte% 5.4 % (0-10); NRBC Flagged by Analyzer 0 % (0-5); Neutrophil # 10.92 X10^3/uL (2.7-7.7); Neutrophil % 87.5 % (47-70); Platelet Count 224 K/mm3 (150-450); RBC Distribution Width CV 13.2 % (11.6-14.6); RBC Distribution Width SD 47.6 fl (35.1-43.9); Red Blood Count 4.13 M/mm3 (4.2-5.4); White Blood Count 12.5 K/mm3 (4.4-11.0)
[2021-07-11 20:30] LABS: Anion Gap 3 (5-15); BUN 29 mg/dL (7-18); BUN/Creat Ratio 26.4 RATIO (10-20); Chloride 102 mmol/L (98-107); EST Glomerular Filtration Rate 51 mL/min (>60); Est Glom Filt Rate - Afr Amer 62 mL/min (>60); Estimated Creatinine Clearance 34.41 ml/min; Glucose 156 mg/dL (74-106); Sodium Level 135 mmol/L (136-145)
[2021-07-11 21:21] VITALS: BP 147/102; PULSE 76; RESP 18; TEMP 37.1; O2SAT 97
[2021-07-11 22:20] LABS: Mucous, Urine 0 SEEN /hpf (<or=2+); Red Blood Cells-Urine 0 SEEN /hpf (0-5)
[2021-07-11 22:35] LABS: Color, Urine Yellow (Yellow); Glucose, Dipstick Normal (Normal); Ketone-Dipstick Negative (Negative); Leukocyte Esterase-Dipstick 500 /ul (Negative); Nitrite-Dipstick Negative (Negative); Occult Blood-Urine 50 /ul (Negative); Protein-Dipstick 100 mg/dl (Negative); Specific Gravity, Urine 1.015 (1.002-1.030); Urine Bilirubin Dipstick Negative (Negative); Urine Clarity Cloudy (Clear); Urine Urobilinogen Normal (Normal)
[2021-07-11 22:46] LABS: White Blood Cells >100 SEEN /hpf (0-5)
[2021-07-11 22:47] LABS: Bacteria RARE /hpf (None Seen); Squamous Epithelial Cells - UA 0-5 SEEN /hpf (5-10)
[2021-07-11 23:07] VITALS: BP 110/39; PULSE 73; RESP 16; TEMP 36.8; O2SAT 96
[2021-07-11] MEDS: levoFLOXacin IV 500 MG/100 ML BAG 100 MG IV (23:18)
--- NOTE | 2021-07-11 23:25 | EX.ED.DYSGE1 ---
HPI History of Present Illness Chief Complaint: Confusion Narrative Narrative: Patient is a 76-year-old female from the half-way. long-term states that she was recently diagnosed with a UTI and was started on antibiotics. However despite doing this they feel she has had some increase in confusion and have concerned that she may be becoming uroseptic and sent to the hospital for evaluation. The patient states that she is thirsty but otherwise has no complaints [facility] Medical History (Updated 07/11/21 @ 23:[address] Cornelius Rhoades, DO) Abnormal CT of thoracic spine Anxiety Chronic back pain Chronic obstructive pulmonary disease COPD (chronic obstructive pulmonary disease) DDD (degenerative disc disease) Depression Essential (primary) hypertension Foot drop, right Hemorrhoids Hyperlipidemia Malnutrition MRSA (methicillin resistant staph aureus) culture positive Non-ischemic cardiomyopathy Non-pressure chronic ulcer of right lower leg with fat layer exposed PVD (peripheral vascular disease) Soft tissue mass Stage III pressure ulcer of right ankle Venous insufficiency of right leg Venous ulcer of left lower extremity without varicose veins Vitamin D deficiency Home Medications methadone 10 mg PO BID 10/04/15 [History Last Taken 04/11/20] pravastatin 40 mg tablet 40 mg PO QHS 01/17/18 [History Last Taken 04/11/20] docusate sodium 100 mg PO QHS 04/21/19 [History Last Taken 04/11/20] multivitamin with minerals 1 ea PO DAILY 04/21/19 [History Last Taken 04/12/20] polyethylene glycol 3350 17 g PO DAILY 04/21/19 [History Last Taken 04/12/20] ferrous sulfate 325 mg (65 mg iron) tablet 325 mg PO TIDCM 05/26/19 [History Last Taken 04/12/20] acetaminophen 650 mg PO Q6H PRN PRN tab 08/15/19 [Rx Last Taken 04/11/20] lorazepam 0.5 mg tablet 0.5 mg PO BID PRN 09/11/19 [History Last Taken 04/10/20] gabapentin 300 mg PO QHS 04/12/20 [History Last Taken 04/11/20] methenamine hippurate 1 g PO BID 04/12/20 [History Last Taken 04/12/20] ondansetron HCl 4 mg PO Q4H PRN PRN 04/12/20 [History Last Taken 04/08/20] sennosides-docusate sodium 1 tab PO DAILY 04/12/20 [History Last Taken 04/12/20] albuterol sulfate 2.5 mg INHALATION Q4H PRN 06/07/20 [History Last Taken Unknown] citalopram 20 mg tablet 20 mg PO DAILY 06/07/20 [History Last Taken Unknown] duloxetine 60 mg capsule,delayed release 60 mg PO DAILY 06/07/20 [History Last Taken Unknown] hydralazine 25 mg tablet 25 mg PO TID PRN 06/07/20 [History Last Taken Unknown] lisinopril 10 mg tablet 10 mg PO DAILY tab 06/07/20 [History Last Taken Unknown] metoprolol succinate 50 mg tablet,extended release 24 hr 50 mg PO DAILY 06/07/20 [History Last Taken Unknown] Allergy/AdvReac Type Severity Reaction Status Date / Time amoxicillin [From Augmentin] AdvReac Nausea/Vom/ Verified 07/11/21 19:26 Diarrhea clavulanic acid AdvReac Nausea/Vom/ Verified 07/11/21 19:26 [From Augmentin] Diarrhea nitrofurantoin AdvReac Vomiting Verified 07/11/21 19:26 macrocrystalline [From Macrodantin] sulfamethoxazole AdvReac Nausea/Vom/ Verified 07/11/21 19:26 [From Bactrim] Diarrhea trimethoprim [From Bactrim] AdvReac Nausea/Vom/ Verified 07/11/21 19:26 Diarrhea Family History (Reviewed 01/03/21 @ 15:25 by Harpreet Gould [employer] SUPERVISOR, [employer] SUPERVISOR-C) Father Hypertension Mother Diabetes Hypertension Brother Diabetes Brother Cancer Sister Hypertension Surgical History History of hip replacement History of hysterectomy History of incisional hernia repair Hx of repair of rotator cuff Social History (Reviewed 01/03/21 @ 15:25 by Harpreet Gould [employer] SUPERVISOR, [employer] SUPERVISOR-C) Smoking Status: Never smoker alcohol intake: never substance use type: does not use caffeine: Yes Type: coffee Number of servings: 2 what type of physical activity do you participate in: none additional social history: Lives at [facility] ROS ROS ED ROS Narrative Please note review of systems may be unreliable secondary to patient's confusion Constitutional Constitutional ED: Denies chills or fever(s) ENT ENT ED: Denies sore throat Cardiovascular Cardiovascular: Denies chest pain Respiratory/Chest Respiratory/Chest: Denies cough or dyspnea Gastrointestinal Gastrointestinal: Denies abdominal pain, diarrhea, nausea or vomiting Genitourinary Genitourinary ED: Reports dysuria Musculoskeletal Musculoskeletal: Denies myalgias Integumentary Denies rash Neurologic Neurologic: Denies headache(s) Hematologic/Lymphatic Hematologic/Lymphatic: Denies easy bleeding or easy bruising EXAM Physical Exam Const Vital Signs: 07/11/21 19:23 07/11/21 19:40 07/11/21 21:21 Temperature 98.5 F 98.5 F 98.7 F Temperature Source Oral Oral Temporal Pulse Rate 86 86 76 Respiratory Rate 20 H 20 H 18 Blood Pressure 158/66 H 158/66 H 147/102 H Blood Pressure Mean 96 96 117 Pulse Ox 94 94 97 Oxygen Delivery Method Nasal Cannula Nasal Cannula Nasal Cannula Oxygen Flow Rate (L/min) 2 2 2 07/11/21 23:07 Temperature 98.3 F Temperature Source Temporal Pulse Rate 73 Respiratory Rate 16 Blood Pressure 110/39 L Blood Pressure Mean 62 Pulse Ox 96 Oxygen Delivery Method Nasal Cannula Oxygen Flow Rate (L/min) 2 Positive well nourished, well developed and obese General Appearance ED: well developed Nutritional Appearance: obese HEENT Reports dry mucous membranes Mouth ED: Yes dry mucous membranes Mouth: dry mucous membranes Eyes PERRL and EOMs intact bilaterally Neck supple Resp normal respiratory effort Resp Narrative: Breath sounds are diminished throughout with faint wheeze but no signs of acute distress Cardio regular rate and regular rhythm Rate: other Other Details: Radial pulses are +2-4 bilaterally they are equal and symmetric GI normal to inspection, nondistended, normoactive bowel sounds, non-tender, non-distended and no masses GI Narrative: No voluntary guarding or rigidity no pulsatile mass Auscultation: normoactive bowel sounds Palpation: soft Narrative: No surrounding secondary soft tissue changes to suggest Terence's gangrene Extremity Extremity Narrative: Trace pitting edema to the bilateral lower extremities that is equal and symmetric Neuro CN's II-XII intact bilaterally Neuro Narrative: Patient is awake and alert to person and place but disoriented to time. There are no focal neurologic deficits noted Sensorium / Orientation: alert Psych Psych Narrative: Patient has a flat/depressed affect Skin no rashes or lesions noted MDM MDM MDM Narrative Medical decision making narrative: Patient presented to the ER afebrile. She was mildly confused but had a normal neurologic exam and with her report of UTI from the half-way this would fit UTI delirium. With her concern for urosepsis I did elect to perform a basic work-up. Patient's white count is slightly elevated at 12.5 but the lactic acid is at the upper limits of normal at 2.0. Chest x-ray question atelectasis versus pneumonia and patient does not have any type of coughing or complaint of shortness of breath and therefore I feel this is most likely atelectasis. Patient had blood cultures obtained as well as a urine culture. She was given Levaquin for the UTI as well as possible pneumonia on x-ray. At this time vitals are stable without hypotension or tachycardia and therefore with her labs I do not have uroseptic changes or acute kidney injury noted. She will receive antibiotics and fluids in the ER and a repeat lactic acid will be obtained. I feel that if her lactic is staying stable or downtrending and her vitals have remained normal that she is not progressing urosepsis at this time. Therefore she does have mild confusion but as she stays in the half-way I do not feel there is need to place her in the hospital and she can be discharged back and continue antibiotics that she was placed on as they appear to be working as her urine only shows rare bacteria today Lab Data Attestation: I reviewed the patient's lab results. Labs: Laboratory Results - last 24 hr 07/11/21 07/11/21 07/11/21 20:03 20:03 20:03 WBC 12.5 H RBC 4.13 L Hgb 12.7 Hct 40.2 MCV 97.3 MCH 30.8 MCHC 31.6 L RDW Std Deviation 47.6 H RDW Coeff of Zach 13.2 Plt Count 224 MPV 9.9 Immature Gran % (Auto) 1.000 H Neut % (Auto) 87.5 H Lymph % (Auto) 5.3 L [place] % (Auto) 5.4 Eos % (Auto) 0.6 Baso % (Auto) 0.2 Absolute Neuts (auto) 10.9 H Absolute Lymphs (auto) 0.66 L Nucleated RBC % 0 Sodium 135 L Potassium 4.0 Chloride 102 Carbon Dioxide 30.0 Anion Gap 3 L BUN 29 H Creatinine 1.10 H Estim Creat Clear Calc 34.41 Est GFR (MDRD) Af Amer 62 Est GFR (MDRD) Non-Af 51 L BUN/Creatinine Ratio 26.4 H Glucose 156 H Lactic Acid 2.0 Calcium 9.0 Urine Color Urine Clarity Urine pH Ur Specific [place] Urine Protein Urine Glucose (UA) Urine Ketones Urine Occult Blood Urine Nitrite Urine Bilirubin Urine Urobilinogen Ur Leukocyte Esterase Urine RBC Urine WBC Ur Squamous Epith Cells Urine Bacteria Urine Mucus 07/11/21 22:13 WBC RBC Hgb Hct MCV MCH MCHC RDW Std Deviation RDW Coeff of Zach Plt Count MPV Immature Gran % (Auto) Neut % (Auto) Lymph % (Auto) [place] % (Auto) Eos % (Auto) Baso % (Auto) Absolute Neuts (auto) Absolute Lymphs (auto) Nucleated RBC % Sodium Potassium Chloride Carbon Dioxide Anion Gap BUN Creatinine Estim Creat Clear Calc Est GFR (MDRD) Af Amer Est GFR (MDRD) Non-Af BUN/Creatinine Ratio Glucose Lactic Acid Calcium Urine Color Yellow Urine Clarity Cloudy Urine pH 6.0 Ur Specific [place] 1.015 Urine Protein 100 H Urine Glucose (UA) Normal Urine Ketones Negative Urine Occult Blood 50 H Urine Nitrite Negative Urine Bilirubin Negative Urine Urobilinogen Normal Ur Leukocyte Esterase 500 H Urine RBC 0 SEEN Urine WBC >100 SEEN Ur Squamous Epith Cells 0-5 SEEN Urine Bacteria RARE Urine Mucus 0 SEEN Radiography Diagnostic Testing: Clinical Impression(s) from Imaging Studies Chest X-Ray 07/11/21 19:59 IMPRESSION: Right lower lobe infiltrate or atelectasis. Elevated bilateral humeral head with eburnation of the acromion suggest a chronic rotator cuff tear Electronically Signed: Rodrigo Hagen MD at 20:50 EST , Service support , Discharge Plan Triage Chief Complaint: Confusion Other Complaint: Complaint ED Provider: Cornelius Rhoades Dx/Rx/DC Orders Clinical Impression: UTI (urinary tract infection) Instructions: Urinary Tract Infections in Women Prescriptions: No Action pravastatin 40 mg tablet 40 mg PO QHS RF: 0 lorazepam 0.5 mg tablet 0.5 mg PO BID PRN (Reason: Anxiety) RF: 0 ferrous sulfate 325 mg (65 mg iron) tablet 325 mg PO TIDCM RF: 0 albuterol sulfate 2.5 mg /3 mL (0.083 %) solution for nebulization 2.5 mg INHALATION Q4H PRNRF: 0 citalopram [Celexa] 20 mg tablet 20 mg PO DAILY RF: 0 duloxetine 60 mg capsule,delayed release(DR/EC) 60 mg PO DAILY RF: 0 hydralazine 25 mg tablet 25 mg PO TID PRNRF: 0 lisinopril 10 mg tablet 10 mg PO DAILY RF: 0 metoprolol succinate 50 mg tablet extended release 24 hr 50 mg PO DAILY RF: 0 methadone 10 MG tablet 10 mg PO BID RF: 0 polyethylene glycol 3350 17 GM packet 17 g PO DAILY RF: 0 docusate sodium 100 MG capsule 100 mg PO QHS RF: 0 multivitamin with minerals 1 EACH tablet 1 ea PO DAILY RF: 0 acetaminophen 325 MG tablet 650 mg PO Q6H PRN PRN (Reason: Pain Score 1-10/Temp > 100.7 F) RF: 0 ondansetron HCl 4 MG tablet 4 mg PO Q4H PRN PRN (Reason: Nausea) RF: 0 sennosides-docusate sodium 1 EACH tablet 1 tab PO DAILY RF: 0 gabapentin 300 MG capsule 300 mg PO QHS RF: 0 methenamine hippurate 1 GM tablet 1 g PO BID RF: 0 Primary Care Provider: Wolf Berry Referrals: Wolf Berry [Primary Care Provider] - Activity Restrictions/Additional Instructions: Please continue the antibiotics that were prescribed to you from the half-way as they appear to be resolving the urinary tract infection based on today's urine sample Disposition Disposition: Home, Self Care
[2021-07-12 00:10] LABS: Reflex Lactate? Y
[2021-07-12 01:00] LABS: Lactic Acid 0.8 mmol/L (0.4-1.9)
[2021-07-12 01:34] VITALS: BP 118/47; PULSE 69; O2SAT 98
[2021-07-12 02:29] VITALS: BP 108/78; PULSE 85; RESP 18; O2SAT 96
== END 2021-07-12 02:30 | disposition home or self-care (01) ==
PROVIDERS: Emergency Provider Emergency Medicine; PCP Family Medicine
DX: N39.0 Urinary tract infection, site not specified (principal); I10 Essential (primary) hypertension; J44.9 Chronic obstructive pulmonary disease, unspecified; E78.5 Hyperlipidemia, unspecified; E66.9 Obesity, unspecified; Z79.899 Other long term (current) drug therapy
CPT/HCPCS: 71045; 80048; 81001; 83605; 85025; 87040; 87077; 87086; 87088; 87186; 96361; 96365; 96366; 99284; J7030; A4216

== ENCOUNTER → 2022-06-14 | Outpatient (CLI) | payer MEDICARE, MEDICAID, SELFPAY ==
--- NOTE | 2022-06-14 11:16 | ART_ITS ---
Reason For Study: Ulcer Procedure A bilateral lower extremity continuous wave Doppler with analog waveform analysis,segmental pressures,and ankle brachial indexes without exercise. Left Segmental Pressures Left brachial= 137mmHg. Left posterior tibial artery = 163mmHg. Left dorsalis pedis artery = 150mmHg. Left digit = 106 mmHg. The left dorsalis pedis waveforms are triphasic. The left posterior tibial artery waveforms are triphasic. Right Segmental Pressures Right brachial= 130mmHg. Right posterior tibial artery = 139mmHg. Right dorsalis pedis artery = 117mmHg. Right digit = 100 mmHg. The right dorsalis pedis waveforms are biphasic. The right posterior tibial artery waveforms are biphasic. Indices The right ankle brachial index by the dorsalis pedis is 0.85. The right ankle brachial index by the posterior tibial artery is 1.01. The right digital-brachial index is 0.73. The left ankle brachial index by the dorsalis pedis is 1.09. The left ankle brachial index by the posterior tibial artery is 1.19. The left digital-brachial index is 0.77. VL/Lower Ext Art Exam w/o Exercis Interpretation Summary Right TRA 1.01, normal. Doppler/PVR waveforms of the right leg normal at rest. TBI diminished, digit disease vs spasm Left TRA 1.19, normal. TBI and Doppler/PVR waveforms of the left leg normal at rest. Ordering Physician: Luiz Land Referring Physician: Wolf Berry Performed By: Shauna Lawton RVT
== END | disposition home or self-care (01) ==
LOC: CVS 11:15
PROVIDERS: PCP Family Medicine; Referring Provider Surgery Trauma Surgery; Visit Provider Surgery Trauma Surgery
DX: I70.25 Atherosclerosis of native arteries of other extremities with ulceration (principal)
CPT/HCPCS: 93923

== ENCOUNTER 2022-09-20 11:54 | Inpatient (IN) | payer MEDICARE, MEDICAID, SELFPAY ==
[2022-09-20] VITALS (12 sets, daily range): BP systolic 148–156; BP diastolic 65–107; PULSE 78–93; RESP 16–22; TEMP 36.2–37.6; O2SAT 85–98; BMI 37.9; BMI 36.8
--- NOTE | 2022-09-20 12:04 | EKG12_ITS ---
Test Reason : Blood Pressure : / mmHG Vent. Rate : 086 BPM Atrial Rate : 086 BPM P-R Int : 176 ms QRS Dur : 074 ms QT Int : 334 ms P-R-T Axes : 034 -02 040 degrees QTc Int : 399 ms Sinus rhythm with occasional Premature ventricular complexes Otherwise normal ECG Confirmed by YASMANI GOODMAN, SHRUTI ([id number]), order editor LONDON LOPEZ ([id number]) on 09/24/2022 10:31:21 AM Referred By: LES Confirmed By:SHRUTI GRUBER MD
--- NOTE | 2022-09-20 12:06 | ED.VIS.DYS ---
HPI History of Present Illness Chief Complaint: Shortness of Breath Detail of Chief Complaint: Shortness of breath and cough Informant: patient and EMS Narrative Narrative: Patient presents from [facility] with complaint of cough for a week and dyspnea. Patient normally on 2 L O2 and apparently per ECF had gone down to 70% on her 2 L. Patient was bumped up to 4 L and brought to ER for evaluation. ECF also noted some confusion. Patient denies fevers. She denies headache. She denies abdominal pain. Cough is been mostly nonproductive. Patient has history of COPD. Patient apparently had a chest x-ray done as an outpatient at the skilled nursing and radiology read that apparently has right lower lobe infiltrate. [facility] Medical History Abnormal CT of thoracic spine Anxiety Chronic back pain Chronic obstructive pulmonary disease COPD (chronic obstructive pulmonary disease) DDD (degenerative disc disease) Depression Essential (primary) hypertension Foot drop, right Hemorrhoids Hyperlipidemia Malnutrition MRSA (methicillin resistant staph aureus) culture positive Non-ischemic cardiomyopathy Non-pressure chronic ulcer of right lower leg with fat layer exposed PVD (peripheral vascular disease) Soft tissue mass Stage III pressure ulcer of right ankle Venous insufficiency of right leg Venous ulcer of left lower extremity without varicose veins Vitamin D deficiency Home Medications methadone 10 mg tablet 10 mg PO BID pain 10/04/15 [History Last Taken 04/11/20] pravastatin 40 mg tablet 40 mg PO QHS CHOLESTEROL 01/17/18 [History Last Taken 04/11/20] methenamine hippurate 1 gram tablet 1 g PO BID URINARY 04/12/20 [History Last Taken 04/12/20] duloxetine 60 mg capsule,delayed release 60 mg PO DAILY 06/07/20 [History Last Taken Unknown] lisinopril 10 mg tablet 10 mg PO DAILY 06/07/20 [History Last Taken Unknown] metoprolol succinate 50 mg tablet,extended release 24 hr 50 mg PO DAILY 06/07/20 [History Last Taken Unknown] fluticasone furoate 100 mcg-vilanterol 25 mcg/dose inhalation powder (Breo Ellipta) 1 inh inhalation DAILY 08/03/21 [History Last Taken Unknown] gabapentin 300 mg capsule 300 mg PO TID NERVE 08/03/21 [History Last Taken Unknown] sertraline 150 mg capsule 150 mg PO DAILY 08/03/21 [History Last Taken Unknown] buspirone 5 mg tablet 2.5 mg PO QAM 02/13/22 [History Last Taken Unknown] buspirone 5 mg tablet 5 mg PO QHS 02/13/22 [History Last Taken Unknown] cholecalciferol (vitamin D3) 100 mcg (4,000 unit) tablet 100 mcg PO DAILY 02/13/22 [History Last Taken Unknown] estradiol 0.01% (0.1 mg/gram) vaginal cream 1 appful vaginal MOTHSA 02/13/22 [History Last Taken Unknown] furosemide 40 mg tablet (Lasix) 40 mg PO .PRN PRN edema, SOB #30 tabs 02/13/22 [Rx Last Taken Unknown] lactobacillus combination no.9 4 billion cell capsule (Adult 50 Plus Probiotic) 4,000 mmu cells PO DAILY 02/13/22 [History Last Taken Unknown] naloxone 4 mg/actuation nasal spray 1 spray intranasal Q2-3M PRN 02/13/22 [History Last Taken Unknown] ondansetron HCl 4 mg tablet 4 mg PO Q8H PRN Nausea 02/13/22 [History Last Taken Unknown] oxycodone-acetaminophen 5 mg-325 mg tablet 1 tab PO DAILY PRN 02/13/22 [History Last Taken Unknown] polyethylene glycol 3350 17 gram oral powder packet 17 g PO DAILY PRN CONSTIPATION 02/13/22 [History Last Taken Unknown] pomegranate fruit extract 250 mg capsule 500 mg PO QPM 02/13/22 [History Last Taken Unknown] sennosides 8.6 mg-docusate sodium 50 mg tablet 1 tab PO BID PRN CONSTIPATION 02/13/22 [History Last Taken Unknown] clwufaoi-muh-qzoxz acid 0.4 mg-lycopene 300 mcg-lutein 250 mcg tablet (Centrum Silver) 1 tab PO DAILY 06/14/22 [History Last Taken Unknown] albuterol sulfate 90 mcg/actuation aerosol inhaler 1 inh inhalation ONCE 08/15/22 [History Last Taken Unknown] melatonin 5 mg capsule mg PO DAILY 08/15/22 [History Last Taken Unknown] multivitamin 1 tab PO DAILY 08/15/22 [History Last Taken Unknown] sennosides 8.6 mg-docusate sodium 50 mg capsule (Senna Plus) 1 tab-cap PO BID PRN 08/15/22 [History Last Taken Unknown] Allergy/AdvReac Type Severity Reaction Status Date / Time morphine Allergy Unknown unknown Verified 08/15/22 13:51 amoxicillin [From Augmentin] AdvReac Nausea/Vom/ Verified 08/15/22 13:51 Diarrhea clavulanic acid AdvReac Nausea/Vom/ Verified 08/15/22 13:51 [From Augmentin] Diarrhea nitrofurantoin AdvReac Vomiting Verified 08/15/22 13:51 macrocrystalline [From Macrodantin] sulfamethoxazole AdvReac Nausea/Vom/ Verified 08/15/22 13:51 [From Bactrim] Diarrhea trimethoprim [From Bactrim] AdvReac Nausea/Vom/ Verified 08/15/22 13:51 Diarrhea Family History Father Hypertension Mother Diabetes Hypertension Brother Diabetes Brother Cancer Sister Hypertension Surgical History History of hip replacement History of hysterectomy History of incisional hernia repair Hx of repair of rotator cuff Social History Smoking Status: Never smoker alcohol intake: never substance use type: does not use caffeine: Yes Type: coffee Number of servings: 2 what type of physical activity do you participate in: none additional social history: Lives at [facility] ED Review of Systems ROS Unobtainable: other Constitutional Constitutional ED: Reports lethargy; Denies chills, fever(s), sweats or weight loss Eyes Eyes: Denies blurry vision, change in vision or diplopia ENT ENT ED: Denies rhinorrhea or sore throat Cardiovascular Cardiovascular: Denies chest pain, orthopnea or racing heartbeat Respiratory/Chest Respiratory/Chest: Reports cough, dyspnea and dyspnea on exertion; Denies orthopnea or sputum Gastrointestinal Gastrointestinal: Denies abdominal pain, diarrhea, nausea or vomiting Genitourinary Genitourinary ED: Denies dysuria, hematuria or urinary frequency Musculoskeletal Musculoskeletal: Denies arthralgias, back pain, myalgias or neck pain Integumentary Denies abscess, Abrasions or rash Neurologic Neurologic: Reports other Details: Increased confusion ; Denies headache(s) or weakness Psychiatric Psychiatric: Denies anxiety, depression or suicidal thoughts Endocrine Endocrinology: Denies polydipsia, polyphagia or polyuria Hematologic/Lymphatic Hematologic/Lymphatic: Denies easy bleeding, easy bruising or lymphadenopathy Allergic/Immunologic Allergic/Immunologic ED: Denies mouth swelling, tongue swelling or urticaria EXAM Physical Exam Const Vital Signs: 09/20/22 11:54 09/20/22 12:10 09/20/22 12:10 Temperature 99.7 F H 99.7 F H Temperature Source Oral Oral Pulse Rate 89 87 Respiratory Rate 19 H 16 Respiratory Effort Short of Breath Respiratory Pattern Blood Pressure 153/65 H 156/107 H Blood Pressure Mean 94 123 Pulse Ox 98 93 Oxygen Delivery Method Nasal Cannula Nasal Cannula Nasal Cannula Oxygen Flow Rate (L/min) 4 2 2 09/20/22 12:17 09/20/22 13:02 09/20/22 13:05 Temperature Temperature Source Pulse Rate 89 Respiratory Rate 20 H Respiratory Effort Respiratory Pattern Normal Blood Pressure Blood Pressure Mean Pulse Ox 85 86 Oxygen Delivery Method Nasal Cannula Nasal Cannula Oxygen Flow Rate (L/min) 2 4 09/20/22 13:07 09/20/22 14:47 Temperature 98.0 F Temperature Source Oral Pulse Rate 78 Respiratory Rate 22 H Respiratory Effort Respiratory Pattern Blood Pressure 148/70 H Blood Pressure Mean 96 Pulse Ox 93 92 Oxygen Delivery Method Nasal Cannula Nasal Cannula Oxygen Flow Rate (L/min) 4 4 Positive well nourished and well developed General Appearance ED: well developed and NAD HEENT Reports TM's clear and moist mucous membranes normocephalic and atraumatic; Negative for trauma or tenderness Tympanic Membrane ED: Yes TM's clear Eyes PERRL and EOMs intact bilaterally General Eye ED: Negative for pale conjunctiva or scleral icterus Neck no lymphadenopathy, supple and no JVD General: Negative for tenderness Chest Wall inspection of chest normal and palpation of chest normal Chest: Negative for tenderness Resp clear to auscultation bilaterally Resp Narrative: Mild tachypnea. Patient has some coarse breath sounds bilaterally with some diffuse expiratory wheezes bilaterally. Patient has some diminished breath sounds in the right lower lobe. Few rales in the right lower lobe. Effort and Inspection: Negative for respiratory distress or pain with movement Auscultation: Negative for rhonchi, wheezes or diminished lung sounds Cardio regular rate, regular rhythm, S1 normal heart sound, S2 normal heart sound and no murmurs Peripheral Pulses: pulses 2+ throughout GI normal to inspection, nondistended, normoactive bowel sounds, soft to palpation, non-tender, non-distended and no masses Back/Spine no CVA tenderness and no thoracic nor lumbar tenderness Extremity normal to inspection General Extremety ED: Negative for edema General Extremity: Negative for edema Neuro oriented x3, CN's II-XII intact bilaterally, no sensory deficits noted and gait normal Sensorium / Orientation: awake, alert, oriented to person, oriented to place and oriented to time Motor Exam: strength 5/5 throughout and strength abnormal Psych mental status grossly normal Skin no rashes or lesions noted and no wounds MDM MDM MDM Narrative Medical decision making narrative: IV line established arrival. Patient given DuoNeb aerosol and Solu-Medrol 125 mg IV. Patient presented with report of chest x-ray done this morning that showed a right-sided pneumonia. Patient had blood cultures obtained. Patient was started on Levaquin IV. Chest x-ray was repeated here that showed a right upper lobe infiltrate and atelectasis in the lower lobes. D-dimer also elevated therefore CT of the chest will be obtained to rule out PE. Case discussed with hospitalist will evaluate patient for admission. Patient has had increased O2 demand. Lab Data Attestation: I reviewed the patient's lab results. Labs: Laboratory Results - last 24 hr 09/20/22 09/20/22 09/20/22 12:10 12:10 12:10 WBC 13.1 H RBC 3.76 L Hgb 11.2 L Hct 36.2 L MCV 96.3 MCH 29.8 MCHC 30.9 L RDW Std Deviation 45.5 H RDW Coeff of Zach 12.8 Plt Count 289 MPV 9.9 Immature Gran % (Auto) 0.600 Neut % (Auto) 84.3 H Lymph % (Auto) 8.8 L Bandera % (Auto) 5.9 Eos % (Auto) 0.2 Baso % (Auto) 0.2 Absolute Neuts (auto) 11.1 H Absolute Lymphs (auto) 1.16 Nucleated RBC % 0 D-Dimer Quant (PE/DVT) 2.99 H* Sodium 134 L Potassium 4.0 Chloride 100 Carbon Dioxide 31.0 Anion Gap 3 L BUN 26 H Creatinine 0.98 Estim Creat Clear Calc 43.26 Est GFR (MDRD) Af Amer 71 Est GFR (MDRD) Non-Af 59 L BUN/Creatinine Ratio 26.6 H Glucose 141 H Lactic Acid Calcium 9.6 Troponin I High Sens 11 09/20/22 12:10 WBC RBC Hgb Hct MCV MCH MCHC RDW Std Deviation RDW Coeff of Zach Plt Count MPV Immature Gran % (Auto) Neut % (Auto) Lymph % (Auto) Bandera % (Auto) Eos % (Auto) Baso % (Auto) Absolute Neuts (auto) Absolute Lymphs (auto) Nucleated RBC % D-Dimer Quant (PE/DVT) Sodium Potassium Chloride Carbon Dioxide Anion Gap BUN Creatinine Estim Creat Clear Calc Est GFR (MDRD) Af Amer Est GFR (MDRD) Non-Af BUN/Creatinine Ratio Glucose Lactic Acid 1.0 Calcium Troponin I High Sens Radiography Chest X-Ray - ED: 1 View Diagnostic Testing: Clinical Impression(s) from Imaging Studies Chest X-Ray 09/20/22 12:25 IMPRESSION: Patchy infiltrate in the peripheral lateral aspect of the right upper lobe. Increased markings at the lung bases suggestive of bibasilar atelectasis and/or early infiltrate. Electronically Signed: Colt Palafox MD at 12:53 EST , 1 view chest x-ray obtained interpreted by myself as increased markings in the right upper lobe as well as both lower lobes. No pneumothorax noted. No effusions noted. Radiology felt there was patchy infiltrate in the peripheral lateral aspect of the right upper lobe increased markings at the lung bases suggestive of atelectasis or early infiltrate. EKG Initial EKG: Attestation: I personally reviewed and interpreted this EKG as follows: Comments: Sinus rhythm with a rate of 86 bpm with occasional PVCs Discharge Plan Triage Chief Complaint: Shortness of Breath ED Provider: Vikas Ray Dx/Rx/DC Orders Clinical Impression: Pneumonia, Hypoxemia, History of hypertension, History of COPD Prescriptions: No Action pravastatin 40 mg tablet 40 mg PO QHS duloxetine 60 mg capsule,delayed release(DR/EC) 60 mg PO DAILY lisinopril 10 mg tablet 10 mg PO DAILY metoprolol succinate 50 mg tablet extended release 24 hr 50 mg PO DAILY Breo Ellipta 100-25 mcg/dose blister with device 1 inh inhalation DAILY sertraline 150 mg capsule 150 mg PO DAILY buspirone 5 mg tablet 5 mg PO QHS buspirone 5 mg tablet 2.5 mg PO QAM estradiol 0.01 % (0.1 mg/gram) cream 1 appful vaginal MOTHSA naloxone 4 mg/actuation spray,non-aerosol 1 spray intranasal Q2-3M PRN Rx Instructions: spray 1 dose into ONE nostril; alternate nostrils w each dose until help arrives oxycodone-acetaminophen 5-325 mg tablet 1 tab PO DAILY PRN pomegranate fruit extract 250 mg capsule 500 mg PO QPM cholecalciferol (vitamin D3) 100 mcg (4,000 unit) tablet 100 mcg PO DAILY Adult 50 Plus Probiotic 4 billion cell capsule 4,000 mmu cells PO DAILY Rx Instructions: administer with a meal furosemide [Lasix] 40 mg tablet 40 mg PO .PRN PRN (Reason: edema, SOB) Qty: 30 0RF albuterol sulfate 90 mcg/actuation HFA aerosol inhaler 1 inh inhalation ONCE multivitamin Tablet 1 tab PO DAILY melatonin 5 mg capsule PO DAILY Senna Plus 8.6-50 mg capsule 1 tab-cap PO BID PRN methadone 10 MG tablet 10 mg PO BID Label Comments: pain polyethylene glycol 3350 17 gram powder in packet 17 g PO DAILY PRN (Reason: CONSTIPATION) methenamine hippurate 1 GM tablet 1 g PO BID Rx Instructions: this can be used ongoing for prevention of uti. gabapentin 300 mg capsule 300 mg PO TID ondansetron HCl 4 mg tablet 4 mg PO Q8H PRN (Reason: Nausea) sennosides-docusate sodium 8.6-50 mg tablet 1 tab PO BID PRN (Reason: CONSTIPATION) Primary Care Provider: Wolf Berry Referrals: Wolf Berry [Primary Care Provider] - Disposition Disposition: Acute Care Hospital [facility]
[2022-09-20] MEDS: Ipratropium/Albuterol Sulfate 3 ML AMPUL.NEB INHALATION ×2 (12:17→20:50)
[2022-09-20] MEDS: levoFLOXacin IV 750 MG/150 ML BAG 100 MG IV (12:21)
[2022-09-20] MEDS: 0.9% Normal Saline 1,000 ML 150 ML IV (12:21)
[2022-09-20] MEDS: MethylPREDNISolone 125 MG/2 ML Vial IV (12:21)
[2022-09-20 12:24] LABS: Absolute Lymphocyte Count 1.16 X10^3/uL (0.83-4.51); Absolute Neutrophil Count 11.1 X10^3/uL (2.0-7.7); Basophil# 0.02 X10^3/uL; Basophil% 0.2 % (0-1); Eosinophil# 0.03 X10^3/uL; Eosinophils% 0.2 % (0-5); Hematocrit 36.2 % (37-47); Hemoglobin 11.2 g/dL (12.0-15.0); Lymphocyte # 1.16 X10^3/ul (0.83-4.51); Lymphocyte % 8.8 % (19-41); Mean Corp Hgb Conc 30.9 g/dL (32-36); Mean Corpuscular Hgb 29.8 pg (27.0-32.0); Mean Corpuscular Volume 96.3 fL (81-99); Mean Platelet Vol. 9.9 fl (6.2-12.0); Monocyte# 0.77 X10^3/uL; Monocyte% 5.9 % (0-10); NRBC Flagged by Analyzer 0 % (0-5); Neutrophil # 11.05 X10^3/uL (2.7-7.7); Neutrophil % 84.3 % (47-70); Platelet Count 289 K/mm3 (150-450); RBC Distribution Width CV 12.8 % (11.6-14.6); RBC Distribution Width SD 45.5 fl (35.1-43.9); Red Blood Count 3.76 M/mm3 (4.2-5.4); White Blood Count 13.1 K/mm3 (4.4-11.0)
--- NOTE | 2022-09-20 12:25 | RAD_ITS ---
STUDY: X-RAY CHEST REASON FOR EXAM: Female, 77 years old. Dyspnea and shortness of breath. TECHNIQUE: Single AP portable view of the chest. COMPARISON: Comparison is made with prior study of 07/11/2021. FINDINGS: EKG electrodes are seen. Patchy infiltrate in the peripheral aspect of the right upper lobe. Mild increased markings at the lung bases suggestive of linear atelectasis and/or scarring. There is no demonstrated pleural abnormality. Normal size heart. Normal mediastinum and garrett. Normal visualized pulmonary arteries. Normal visualized aortic arch and descending thoracic aorta. Normal visualized thoracic spine. Prior fusion of the lower cervical spine. There is no demonstrated abnormality of the visualized soft tissue structures of the upper abdomen. RAD/Chest 1 View (Portable) IMPRESSION: Patchy infiltrate in the peripheral lateral aspect of the right upper lobe. Increased markings at the lung bases suggestive of bibasilar atelectasis and/or early infiltrate. Electronically Signed: Colt Palafox MD at 12:53 EST ,
[2022-09-20 12:39] LABS: Anion Gap 3 (5-15); BUN 26 mg/dL (7-18); BUN/Creat Ratio 26.6 RATIO (10-20); Calcium,Total 9.6 mg/dL (8.5-10.1); Chloride 100 mmol/L (98-107); Creatinine, Serum 0.98 mg/dL (0.55-1.02); EST Glomerular Filtration Rate 59 mL/min (>60); Est Glom Filt Rate - Afr Amer 71 mL/min (>60); Estimated Creatinine Clearance 43.26 ml/min; Glucose 141 mg/dL (74-106); Sodium Level 134 mmol/L (136-145); Troponin-I HS 11 pg/mL (3.0-54.0)
[2022-09-20 12:41] LABS: D-Dimer Quantitative (DVT/PE) 2.99 FEU/ug/m (0.27-0.49)
--- NOTE | 2022-09-20 15:09 | CT_ITS ---
EXAM: CT ANGIOGRAPHY CHEST WITHOUT AND WITH INTRAVENOUS CONTRAST CLINICAL INDICATION: dyspnea, hypoxia, elevated d-dimer TECHNIQUE: Helically acquired angiography images were obtained of the chest without and with intravenous contrast. This CT exam was performed using one or more of the following dose reduction techniques: automated exposure control, adjustment of the mA and/or kV according to patient size, and/or use of iterative reconstruction technique. This report was created using [employer] report generation technology. MIP reconstructed images were created and reviewed. CONTRAST: IV 100mL [id number] RADIATION DOSE: CTDIvol = 13.69 mGy, DLP = 484.86 mGy-cm COMPARISON: 8.20.19 FINDINGS: PULMONARY ARTERIES: Unremarkable. No demonstrated pulmonary embolism or arterial dissection. AORTA: There is atherosclerotic calcification of the aortic arch with tortuosity and elongation of the aortic arch and descending thoracic aorta. Normal in caliber. No evidence of dissection. GREAT VESSELS OF AORTIC ARCH: See above. LUNGS AND PLEURAL SPACES: There is right upper lobe and right lower lobe pneumonia. No mass. No pleural effusion or thickening. HEART: There are calcifications of the coronary arteries. No pericardial effusion. No signs of right heart strain, ratio of right ventricle to left ventricle measures less than 1. MEDIASTINUM: There is a hiatal hernia. No mediastinal or hilar adenopathy. Esophagus is unremarkable. THYROID: Unremarkable. No thyroid lesions. BONES/JOINTS: There are degenerative changes of the shoulders. There are multi-level degenerative changes of the thoracic spine. Cervical spinal fusion hardware noted. No suspicious lytic or blastic abnormality. STOMACH AND BOWEL: There are multiple surgical clips around the stomach. There are also anastomotic sutures around the stomach and altered gastrointestinal anatomy. This is consistent for prior gastric surgery (this may include sleeve, Yuridia, or gastric bypass and other types of gastric surgery). INTRAPERITONEAL SPACE: Since the prior study, there is an oblique defect through the T12 vertebral body. There is air in the intervertebral disc space at T12-L1. This may be related to prior trauma or prior healed infectious area. This is only partially visualized. CT/CTA Chest W/WO Contrast IMPRESSION: 1. Since the prior study, there is an oblique defect through the T12 vertebral body. There is air in the intervertebral disc space at T12-L1. This may be related to prior trauma or prior healed infectious area. This is only partially visualized. 2. No demonstrated pulmonary embolism or arterial dissection. 3. There is right upper lobe and right lower lobe pneumonia. Electronically Signed: Rodrigo Hagen MD at 16:33 EST ,
--- NOTE | 2022-09-20 15:19 | NURSING ---
MED SURG TERELETSKY COPD, PNEUMONIA, HYPERTENSION
[2022-09-20] MEDS: 0.9% Saline Lock 10 ML Syringe IV (18:54)
[2022-09-20] MEDS: Polyethylene Glycol 3350 17 GM PACKET 34 GM PO (18:59)
--- NOTE | 2022-09-20 20:01 | PCM.HP.STD ---
HPI - General General Date of Admission: 09/20/22 Date of Service: 09/20/22 Chief Complaint: Cough, increased shortness of breath HPI Narrative CAMILLA HAWLEY, is a 77 F who presents to the emergency room at [facility] after being sent in by an extended care facility at which she is a chronic resident due to increased shortness of breath and increased oxygen requirement at the facility. Patient is also been having a nonproductive cough for few days. Patient has chronic hypoxic respiratory failure and is on 2 L of oxygen at all times, she required 4 L of oxygen today and was sent in by the [facility] for evaluation. Patient denies any fevers or chills. According to the [facility], patient was started on 50 mg of prednisone daily today for wheezing. Work-up in the emergency room included labs which showed an elevated white blood cell count at 13.1, hemoglobin was 11.2, D-dimer was elevated at 2.99, BUN was 26, CTA of the chest was performed which showed a right upper and lower lobe infiltrate, there is also noted to be an abnormality of T12 which could indicate either an infection or possible fracture. Patient was given IV antibiotics in the emergency room, she will be admitted to [place] [address] for healthcare acquired pneumonia and acute on chronic hypoxic respiratory failure. [facility] Medical History (Reviewed 08/15/22 @ 14:27 by Harpreet Gould HYDROGRAPHIC ENGINEER, HYDROGRAPHIC ENGINEER-C) Abnormal CT of thoracic spine Anxiety Chronic back pain Chronic obstructive pulmonary disease COPD (chronic obstructive pulmonary disease) DDD (degenerative disc disease) Depression Essential (primary) hypertension Foot drop, right Hemorrhoids Hyperlipidemia Malnutrition MRSA (methicillin resistant staph aureus) culture positive Non-ischemic cardiomyopathy Non-pressure chronic ulcer of right lower leg with fat layer exposed PVD (peripheral vascular disease) Soft tissue mass Stage III pressure ulcer of right ankle Venous insufficiency of right leg Venous ulcer of left lower extremity without varicose veins Vitamin D deficiency Home Medications methadone 10 mg tablet 10 mg PO QHS pain 10/04/15 [History Last Taken 09/19/22] pravastatin 40 mg tablet 40 mg PO QHS CHOLESTEROL 01/17/18 [History Last Taken 09/19/22] methenamine hippurate 1 gram tablet 1 g PO BID URINARY 04/12/20 [History Last Taken 09/20/22] duloxetine 60 mg capsule,delayed release 60 mg PO DAILY 06/07/20 [History Last Taken 09/20/22] lisinopril 10 mg tablet 10 mg PO DAILY BP 06/07/20 [History Last Taken 09/20/22] metoprolol succinate 50 mg tablet,extended release 24 hr 50 mg PO DAILY HEART 06/07/20 [History Last Taken 09/20/22] fluticasone furoate 100 mcg-vilanterol 25 mcg/dose inhalation powder (Breo Ellipta) 1 inh inhalation DAILY 08/03/21 [History Last Taken 09/20/22] gabapentin 300 mg capsule 300 mg PO TID NERVE 08/03/21 [History Last Taken 09/20/22] buspirone 5 mg tablet 2.5 mg PO DAILY DEPRESSION 02/13/22 [History Last Taken 09/20/22] buspirone 5 mg tablet 5 mg PO QHS 02/13/22 [History Last Taken 09/19/22] cholecalciferol (vitamin D3) 100 mcg (4,000 unit) tablet 100 mcg PO DAILY SUPPLEMENT 02/13/22 [History Last Taken 09/20/22] estradiol 0.01% (0.1 mg/gram) vaginal cream 1 appful vaginal MOWEFR UTI 02/13/22 [History Last Taken 09/19/22] naloxone 4 mg/actuation nasal spray 1 spray intranasal Q2-3M PRN OVERDOSE 02/13/22 [History Last Taken Unknown] ondansetron HCl 4 mg tablet 4 mg PO Q8H PRN Nausea 02/13/22 [History Last Taken Unknown] oxycodone-acetaminophen 5 mg-325 mg tablet 1 tab PO DAILY PRN Pain 02/13/22 [History Last Taken 09/14/22] polyethylene glycol 3350 17 gram oral powder packet 17 g PO DAILY PRN CONSTIPATION 02/13/22 [History Last Taken Unknown] pomegranate fruit extract 250 mg capsule 500 mg PO DINNER SUPPLEMENT 02/13/22 [History Last Taken 09/19/22] sennosides 8.6 mg-docusate sodium 50 mg tablet 1 tab PO BID PRN CONSTIPATION 02/13/22 [History Last Taken 09/20/22] mdbvpxmh-acd-cgcgr acid 0.4 mg-lycopene 300 mcg-lutein 250 mcg tablet (Centrum Silver) 1 tab PO DAILY 06/14/22 [History Last Taken 09/20/22] albuterol sulfate 90 mcg/actuation aerosol inhaler 2 inh inhalation Q4H PRN SOB/WHEEZING 08/15/22 [History Last Taken Unknown] Proheal 30 ml PO/SL BID 09/20/22 [History Last Taken 09/20/22] ULTRAFLORA IMMUNE HEALTH 170 mg PO/SL DAILY GUT HEALTH 09/20/22 [History Last Taken 09/19/22] acetaminophen 500 mg tablet 500 mg PO Q6H PRN Pain 09/20/22 [History Last Taken 09/17/22] albuterol sulfate 2.5 mg/3 mL (0.083 %) solution for nebulization 2.5 mg inhalation Q4H PRN SOB/WHEEZING 09/20/22 [History Last Taken 09/20/22] furosemide 40 mg tablet (Lasix) 40 mg PO DAILY EDEMA/SOB 09/20/22 [History Last Taken Unknown] guaifenesin 100 mg/5 mL oral liquid (Siltussin SA) 200 mg PO Q6H PRN COUGH/SORE THROAT 09/20/22 [History Last Taken 09/20/22] melatonin 5 mg tablet 5 mg PO QHS SLEEP 09/20/22 [History Last Taken 09/19/22] prednisone 50 mg tablet 50 mg PO DAILY SOB/WHEEZING 09/20/22 [History Last Taken 09/20/22] sertraline 100 mg tablet 200 mg PO DAILY DEPRESSION 09/20/22 [History Last Taken 09/20/22] Allergy/AdvReac Type Severity Reaction Status Date / Time morphine Allergy Unknown unknown Verified 08/15/22 13:51 amoxicillin [From Augmentin] AdvReac Nausea/Vom/ Verified 08/15/22 13:51 Diarrhea clavulanic acid AdvReac Nausea/Vom/ Verified 08/15/22 13:51 [From Augmentin] Diarrhea nitrofurantoin AdvReac Vomiting Verified 08/15/22 13:51 macrocrystalline [From Macrodantin] sulfamethoxazole AdvReac Nausea/Vom/ Verified 08/15/22 13:51 [From Bactrim] Diarrhea trimethoprim [From Bactrim] AdvReac Nausea/Vom/ Verified 08/15/22 13:51 Diarrhea Family History Father Hypertension Mother Diabetes Hypertension Brother Diabetes Brother Cancer Sister Hypertension Surgical History (Reviewed 08/15/22 @ 14:27 by Harpreet Gould HYDROGRAPHIC ENGINEER, HYDROGRAPHIC ENGINEER-C) History of hip replacement History of hysterectomy History of incisional hernia repair Hx of repair of rotator cuff Social History Smoking Status: Never smoker alcohol intake: never substance use type: does not use caffeine: Yes Type: coffee Number of servings: 2 what type of physical activity do you participate in: none additional social history: Lives at [facility] Constitutional Constitutional: Reports fatigue; Denies anorexia, change in weight, chills, fever(s), night sweats or weakness Eyes Eyes: Denies blurry vision, change in vision, discharge from eye(s) or eye pain Cardiovascular Cardiovascular: Denies chest pain, claudication, edema, lightheadedness, orthopnea or palpitations Respiratory/Chest Respiratory/Chest: Reports cough, dyspnea, shortness of breath at rest and shortness of breath with exertion; Denies hemoptysis Gastrointestinal Gastrointestinal: Denies abdominal pain, constipation, diarrhea, hematemesis, hematochezia, melena, nausea or vomiting Genitourinary Genitourinary: Denies dysuria, hematuria, urinary frequency, urinary hesitancy, urinary incontinence or urinary urgency Musculoskeletal Musculoskeletal: Denies back pain, joint pain, joint stiffness, joint swelling, myalgias or neck pain Neurologic Neurologic: Denies abnormal gait, abnormal speech, confusion, disequilibrium, dizziness, focal weakness, headache(s), loss of vision, numbness, other visual disturbances, paresthesias, syncope or tingling Psychiatric Psychiatric: Denies anxiety, cognitive impairment, depression, irritability, mood swings or suicidal ideation Endocrine Endocrinology: Denies change in body appearance, cold intolerance, excessive sweating, heat intolerance, polydipsia or polyuria Hematologic/Lymphatic Hematologic/Lymphatic: Denies none, anemia, easy bleeding, easy bruising or lymphadenopathy Allergic/Immunologic Allergic/Immunologic: Denies rhinitis, urticaria, eczemia or asthma Vital Signs Vital Signs Vital Signs: 09/20/22 11:54 09/20/22 12:10 09/20/22 12:10 Temperature 99.7 F H 99.7 F H Temperature Source Oral Oral Pulse Rate 89 87 Respiratory Rate 19 H 16 Respiratory Effort Short of Breath Respiratory Pattern Blood Pressure 153/65 H 156/107 H Blood Pressure Mean 94 123 Pulse Ox 98 93 Oxygen Delivery Method Nasal Cannula Nasal Cannula Nasal Cannula Oxygen Flow Rate (L/min) 4 2 2 09/20/22 12:17 09/20/22 13:02 09/20/22 13:05 Temperature Temperature Source Pulse Rate 89 Respiratory Rate 20 H Respiratory Effort Respiratory Pattern Normal Blood Pressure Blood Pressure Mean Pulse Ox 85 86 Oxygen Delivery Method Nasal Cannula Nasal Cannula Oxygen Flow Rate (L/min) 2 4 09/20/22 13:07 09/20/22 14:47 09/20/22 16:10 Temperature 98.0 F 97.2 F L Temperature Source Oral Oral Pulse Rate 78 78 Respiratory Rate 22 H 22 H Respiratory Effort Respiratory Pattern Blood Pressure 148/70 H 148/70 H Blood Pressure Mean 96 96 Pulse Ox 93 92 92 Oxygen Delivery Method Nasal Cannula Nasal Cannula Nasal Cannula Oxygen Flow Rate (L/min) 4 4 4 09/20/22 17:35 09/20/22 17:58 Temperature Temperature Source Pulse Rate 82 Respiratory Rate Respiratory Effort Respiratory Pattern Blood Pressure Blood Pressure Mean Pulse Ox 94 Oxygen Delivery Method Nasal Cannula Nasal Cannula Oxygen Flow Rate (L/min) 4 4 Weight Weight: 100.471 kg Body Mass Index (BMI) 36.8 Physical Exam Const alert, oriented x3 and no apparent distress Constitutional Narrative: Patient appears older than her stated age General Appearance: cooperative, well kempt and well developed Orientation / Consciousness: awake, oriented to person, oriented to place and oriented to time HEENT normocephalic and moist oral mucous membranes Eyes PERRL, EOMs intact bilaterally and conjunctivae normal Neck supple, no JVD, thyroid normal and no carotid bruits General: trachea midline Resp no retractions Resp Narrative: Patient appeared comfortable on 4 L of oxygen at the time my examination, auscultation of the lungs revealed scattered expiratory wheezes bilaterally. Auscultation: wheezes; Negative for rales or rhonchi Cardio regular rate, regular rhythm, S1 normal heart sound, S2 normal heart sound, no murmurs, no rub and no gallops GI normal to inspection, nondistended, normoactive bowel sounds, soft to palpation, non-tender and non-distended Extremity no clubbing, cyanosis or edema Skin no rashes or lesions noted General Skin Exam: no breakdown Neuro oriented x3, CN's II-XII intact bilaterally, moves all extremities, no focal motor deficits and no sensory deficits noted Sensorium / Orientation: awake and alert Speech: speech normal Psych affect normal Results Lab / Micro Data Result Diagrams: 09/20/22 12:10 09/20/22 12:10 Labs: Laboratory Results - last 24 hr 09/20/22 12:10: WBC 13.1 H, RBC 3.76 L, Hgb 11.2 L, Hct 36.2 L, MCV 96.3, MCH 29.8, MCHC 30.9 L, RDW Std Deviation 45.5 H, RDW Coeff of Zach 12.8, Plt Count 289, MPV 9.9, Immature Gran % (Auto) 0.600, Neut % (Auto) 84.3 H, Lymph % (Auto) 8.8 L, [place] % (Auto) 5.9, Eos % (Auto) 0.2, Baso % (Auto) 0.2, Absolute Neuts (auto) 11.1 H, Absolute Lymphs (auto) 1.16, Nucleated RBC % 0 09/20/22 12:10: D-Dimer Quant (PE/DVT) 2.99 H* 09/20/22 12:10: Sodium 134 L, Potassium 4.0, Chloride 100, Carbon Dioxide 31.0, Anion Gap 3 L, BUN 26 H, Creatinine 0.98, Estim Creat Clear Calc 43.26, Est GFR (MDRD) Af Amer 71, Est GFR (MDRD) Non-Af 59 L, BUN/Creatinine Ratio 26.6 H, Glucose 141 H, Calcium 9.6, Troponin I High Sens 11 09/20/22 12:10: Lactic Acid 1.0 Micro: Microbiology 09/20/22 12:14 Nasal Secretion SARS-CoV-2 & FLU Antigen (Rapid) - Final Radiology Impression Chest X-Ray 09/20/22 12:25 IMPRESSION: Patchy infiltrate in the peripheral lateral aspect of the right upper lobe. Increased markings at the lung bases suggestive of bibasilar atelectasis and/or early infiltrate. Electronically Signed: Colt Palafox MD at 12:53 EST , Chest CTA 09/20/22 15:09 IMPRESSION: 1. Since the prior study, there is an oblique defect through the T12 vertebral body. There is air in the intervertebral disc space at T12-L1. This may be related to prior trauma or prior healed infectious area. This is only partially visualized. 2. No demonstrated pulmonary embolism or arterial dissection. 3. There is right upper lobe and right lower lobe pneumonia. Electronically Signed: Rodrigo Hagen MD at 16:33 EST , Assessment & Plan Assessment/Plan (1) Pneumonia: PLAN: Plan 1. Right-sided healthcare acquired pneumonia-patient will be admitted to [facility] 3, she will be placed on IV Zosyn, labs will be monitored. #2 acute on chronic hypoxic respiratory failure-pulse ox will be monitored, patient is currently stable on nasal cannula oxygen #3 chronic obstructive pulmonary disease-I have elected to place the patient on IV corticosteroids for now, she will need reevaluated tomorrow for continued use of IV corticosteroids, patient will be given aerosol treatments #4 chronic debility-patient is currently a long-term resident in an extended care facility, she states she does not ambulate. #5 essential hypertension-patient will remain on her current medications #6 chronic depression-patient will remain on Cymbalta #7 chronic low back pain secondary to degenerative joint disease of the lumbar spine, patient will remain on current pain medications #8 abnormality of [id number] to patient's medical record, this abnormality was detected in April 2020, exact etiology is unknown at this time, I do not think the patient needs to be worked up further at this time Total clinical time spent by myself addressing the patient's medical issues, reviewing all her data, and collaborating with patient's care team: 75 minutes Charges/Coding Visit Charges Inpatient E&M: 00133 Init Hosp L3
[2022-09-20] MEDS: Heparin Injection (Vial) 5,000 UNIT/ML VIAL 5000 UNIT SC (22:42)
[2022-09-20] MEDS: Lactulose 20 GM/30 ML UDC PO (22:42)
[2022-09-20] MEDS: Methenamine Hippurate 1 GM Tablet PO (22:44)
[2022-09-20] MEDS: MELATONIN 10 MG TABLET 5 MG PO (22:45)
[2022-09-20] MEDS: Pravastatin 40 MG Tablet PO (22:45)
[2022-09-20] MEDS: busPIRone 5 MG Tablet PO (22:45)
[2022-09-20] MEDS: Methadone 10 MG Tablet PO (22:46)
[2022-09-20] MEDS: Gabapentin 300 MG Capsule PO (22:46)
[2022-09-21] VITALS (10 sets, daily range): BP systolic 122–145; BP diastolic 72–75; PULSE 80–96; RESP 17–20; TEMP 36.5–37; O2SAT 95–98
[2022-09-21] MEDS: Ipratropium/Albuterol Sulfate 3 ML AMPUL.NEB INHALATION ×4 (01:49→19:00)
[2022-09-21] MEDS: Lactulose 20 GM/30 ML UDC PO ×2 (06:27→14:26)
[2022-09-21] MEDS: 0.9% Saline Lock 10 ML Syringe IV (06:29)
[2022-09-21] MEDS: Gabapentin 300 MG Capsule PO ×3 (06:34→21:58)
[2022-09-21 06:53] LABS: Absolute Lymphocyte Count 0.75 X10^3/uL (0.83-4.51); Absolute Neutrophil Count 7.8 X10^3/uL (2.0-7.7); Basophil# 0.01 X10^3/uL; Basophil% 0.1 % (0-1); Hematocrit 33.7 % (37-47); Hemoglobin 10.5 g/dL (12.0-15.0); Lymphocyte # 0.75 X10^3/ul (0.83-4.51); Lymphocyte % 8.3 % (19-41); Mean Corp Hgb Conc 31.2 g/dL (32-36); Mean Corpuscular Hgb 29.7 pg (27.0-32.0); Mean Corpuscular Volume 95.5 fL (81-99); Mean Platelet Vol. 10.1 fl (6.2-12.0); Monocyte# 0.39 X10^3/uL; Monocyte% 4.3 % (0-10); NRBC Flagged by Analyzer 0 % (0-5); Neutrophil # 7.82 X10^3/uL (2.7-7.7); Platelet Count 304 K/mm3 (150-450); RBC Distribution Width CV 12.7 % (11.6-14.6); RBC Distribution Width SD 44.4 fl (35.1-43.9); Red Blood Count 3.53 M/mm3 (4.2-5.4); White Blood Count 9.1 K/mm3 (4.4-11.0)
--- NOTE | 2022-09-21 07:49 | PN.HOSP_ITS ---
Subjective Subjective Breathing ok. Constipated for 1 week. Objective Data Objective Data Vital Signs: Vital Signs Temp Pulse Resp BP Pulse Ox O2 Del Method O2 Flow Rate 36.7 C 90 20 H 145/72 H 96 Nasal Cannula 3 09/21/22 02:45 09/21/22 02:45 09/21/22 02:45 09/21/22 02:45 09/21/22 02:45 09/21/22 02:45 09/21/22 02:45 Oxygen Flow Rate (L/min) 3 Oxygen Delivery Method Nasal Cannula Weight: 100.471 kg Body Mass Index (BMI) 36.8 Intake & Output: Intake and Output for Last 24 Hours 09/19/22 09/20/22 09/21/22 23:59 23:59 23:59 Intake Total 1074.25 / 1074.25 Output Total 400 / 400 Balance 1074.25 / 1074.25 -400 / -400 Lab / Micro Data Result Diagrams: 09/21/22 06:00 09/20/22 12:10 Labs: Laboratory Results - last 24 hr 09/20/22 12:10: WBC 13.1 H, RBC 3.76 L, Hgb 11.2 L, Hct 36.2 L, MCV 96.3, MCH 29.8, MCHC 30.9 L, RDW Std Deviation 45.5 H, RDW Coeff of Zach 12.8, Plt Count 289, MPV 9.9, Immature Gran % (Auto) 0.600, Neut % (Auto) 84.3 H, Lymph % (Auto) 8.8 L, [place] % (Auto) 5.9, Eos % (Auto) 0.2, Baso % (Auto) 0.2, Absolute Neuts (auto) 11.1 H, Absolute Lymphs (auto) 1.16, Nucleated RBC % 0 09/20/22 12:10: D-Dimer Quant (PE/DVT) 2.99 H* 09/20/22 12:10: Sodium 134 L, Potassium 4.0, Chloride 100, Carbon Dioxide 31.0, Anion Gap 3 L, BUN 26 H, Creatinine 0.98, Estim Creat Clear Calc 43.26, Est GFR (MDRD) Af Amer 71, Est GFR (MDRD) Non-Af 59 L, BUN/Creatinine Ratio 26.6 H, Glucose 141 H, Calcium 9.6, Troponin I High Sens 11 09/20/22 12:10: Lactic Acid 1.0 09/21/22 06:00: WBC 9.1, RBC 3.53 L, Hgb 10.5 L, Hct 33.7 L, MCV 95.5, MCH 29.7, MCHC 31.2 L, RDW Std Deviation 44.4 H, RDW Coeff of Zach 12.7, Plt Count 304, MPV 10.1, Immature Gran % (Auto) 1.300 H, Neut % (Auto) 86.0 H, Lymph % (Auto) 8.3 L , [place] % (Auto) 4.3, Eos % (Auto) 0.0, Baso % (Auto) 0.1, Absolute Neuts (auto) 7.8 H, Absolute Lymphs (auto) 0.75 L, Nucleated RBC % 0 Micro: Microbiology 09/21/22 00:55 Urine, Random Legionella Antigen - Final 09/21/22 00:55 Urine, Random Streptococcus pneumoniae Antigen (M - Final 09/20/22 20:45 Mucosa - Nasopharyngeal Respiratory Panel (PCR) - Final 09/20/22 12:14 Nasal Secretion SARS-CoV-2 & FLU Antigen (Rapid) - Final Radiography Diagnostic Testing: Radiology Impression Chest X-Ray 09/20/22 12:25 IMPRESSION: Patchy infiltrate in the peripheral lateral aspect of the right upper lobe. Increased markings at the lung bases suggestive of bibasilar atelectasis and/or early infiltrate. Electronically Signed: Colt Palafox MD at 12:53 EST , Chest CTA 09/20/22 15:09 IMPRESSION: 1. Since the prior study, there is an oblique defect through the T12 vertebral body. There is air in the intervertebral disc space at T12-L1. This may be related to prior trauma or prior healed infectious area. This is only partially visualized. 2. No demonstrated pulmonary embolism or arterial dissection. 3. There is right upper lobe and right lower lobe pneumonia. Electronically Signed: Rodrigo Hagen MD at 16:33 EST , Physical Exam Const alert and no apparent distress HEENT head/scalp atraumatic Resp normal respiratory effort, no retractions and no use of accessory muscles Cardio regular rate, regular rhythm, S1 normal heart sound and S2 normal heart sound GI normal to inspection, nondistended, normoactive bowel sounds, soft to palpation, non-tender and non-distended Extremity normal to inspection Assessment & Plan Assessment/Plan (1) Pneumonia: PLAN: Right-sided suspected Gram negative Treatment: * abx w pip/tazo * pulm toilet Testing: * strep and legionella negative * resp panel negative * COVID 19 and influenza negative * BCx pending * check SCx (2) Abnormal spinal diagnostic imaging: PLAN: Per radiology: oblique defect through the T12 vertebral body. There is air in the intervertebral disc space at T12-L1. This may be related to prior trauma or prior healed infectious area. This is only partially visualized. 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 Pt was transferred to [facility] at that time. This may be old. Check records from [facility]. PLAN: Plan Chronic conditions: * COPD: BDs * debility: unclear baseline performance status. I suspect poor as she is an [place] resident. PT OT. * HTN: continue furosemide * depression: buspirone, sertraline * chronic pain: methadone on home OCT, but does not show up on OARRS, gabapentin, duloxetine. * HLP: continue statin VTE prophy: SQ heparin Charges/Coding Visit Charges Inpatient E&M: 81178 Subs Hosp L2
[2022-09-21] MEDS: Furosemide 40 MG Tablet PO (10:40)
[2022-09-21] MEDS: DULoxetine Hcl 60 MG Capsule PO (10:40)
[2022-09-21] MEDS: Sertraline 100 MG Tablet 200 MG PO (10:41)
[2022-09-21] MEDS: Metoprolol(XL)Succ 50 MG Tablet PO (10:41)
[2022-09-21] MEDS: Methenamine Hippurate 1 GM Tablet PO ×2 (10:41→21:57)
[2022-09-21] MEDS: Lisinopril 10 MG Tablet PO (10:42)
[2022-09-21] MEDS: busPIRone 5 MG Tablet 2.5 MG PO (10:42)
[2022-09-21] MEDS: Heparin Injection (Vial) 5,000 UNIT/ML VIAL 5000 UNIT SC ×2 (10:42→22:03)
[2022-09-21] MEDS: Polyethylene Glycol 3350 17 GM PACKET 34 GM PO (10:51)
--- NOTE | 2022-09-21 12:45 | CHAPLAIN ---
Type of Pastoral Visit _x__ Initial Visit ___ Follow-up Visit ___ On-call Visit ___ General Patient Visit ___ Spiritual Assessment ___ Family Conference ___ Bereavement ___ Rapid Response ___ Code Blue ___ Other (describe below) Pastoral Care Referral From _x__ Patient ___ Family ___ Nurse ___ Physician ___ Mechanical Oxidizer ___ Network Consultant ___ Other (describe below) Sacrament/Intervention _x__ Active listening ___ Anointing ___ Episcopal ___ Bereavement ___ Communion _x__ Cindy exploration ___ _x__ Life review _x__ Prayer ___ Reconciliation ___ Sacrament of Sick _x__ Supportive presence ___ Wedding ___ Other (describe below) Pastoral Comments patient reports some improvement from yesterday; daughter in room for support; pt gives life review and then asks questions of spiritual nature and concern; pt seeking some reassurances of cindy; listening, support, care, and prayer given; pt expresses appreciation as does the daughter for this response to pt needs
[2022-09-21] MEDS: Acetaminophen 500 MG Tablet PO (14:30)
[2022-09-21] MEDS: Pravastatin 40 MG Tablet PO (21:57)
[2022-09-21] MEDS: MELATONIN 10 MG TABLET 5 MG PO (21:57)
[2022-09-21] MEDS: busPIRone 5 MG Tablet PO (21:57)
[2022-09-21] MEDS: Methadone 10 MG Tablet PO (21:58)
[2022-09-22] VITALS (8 sets, daily range): BP systolic 109–149; BP diastolic 69–93; PULSE 80–101; RESP 18–20; TEMP 36.5–37.3; O2SAT 95–96
[2022-09-22] MEDS: Ipratropium/Albuterol Sulfate 3 ML AMPUL.NEB INHALATION ×3 (00:20→13:31)
[2022-09-22] MEDS: Gabapentin 300 MG Capsule PO ×2 (05:50→14:35)
[2022-09-22] MEDS: 0.9% Saline Lock 10 ML Syringe IV (05:51)
[2022-09-22 07:27] LABS: Absolute Lymphocyte Count 1.05 X10^3/uL (0.83-4.51); Absolute Neutrophil Count 8.4 X10^3/uL (2.0-7.7); Basophil# 0.01 X10^3/uL; Basophil% 0.1 % (0-1); Hematocrit 31.8 % (37-47); Hemoglobin 9.8 g/dL (12.0-15.0); Lymphocyte # 1.05 X10^3/ul (0.83-4.51); Lymphocyte % 10.2 % (19-41); Mean Corp Hgb Conc 30.8 g/dL (32-36); Mean Corpuscular Hgb 29.7 pg (27.0-32.0); Mean Corpuscular Volume 96.4 fL (81-99); Mean Platelet Vol. 9.4 fl (6.2-12.0); Monocyte# 0.63 X10^3/uL; Monocyte% 6.1 % (0-10); NRBC Flagged by Analyzer 0 % (0-5); Neutrophil # 8.43 X10^3/uL (2.7-7.7); Platelet Count 325 K/mm3 (150-450); RBC Distribution Width CV 12.9 % (11.6-14.6); RBC Distribution Width SD 45.8 fl (35.1-43.9); White Blood Count 10.3 K/mm3 (4.4-11.0)
--- NOTE | 2022-09-22 07:58 | PN.HOSP_ITS ---
Subjective Subjective Breathing well. No events overnight. Objective Data Objective Data Vital Signs: Vital Signs Temp Pulse Resp BP Pulse Ox O2 Del Method O2 Flow Rate 36.5 C L 85 18 109/93 H 95 Nasal Cannula 3 09/22/22 02:17 09/22/22 02:17 09/22/22 02:17 09/22/22 02:17 09/22/22 02:17 09/22/22 02:19 09/22/22 02:19 Oxygen Flow Rate (L/min) 3 Oxygen Delivery Method Nasal Cannula Weight: 100.471 kg Body Mass Index (BMI) 36.8 Intake & Output: Intake and Output for Last 24 Hours 09/20/22 09/21/22 09/22/22 23:59 23:59 23:59 Intake Total 1074.25 / 1074.25 450 / 450 50 / 50 Output Total 1300 / 1300 100 / 100 Balance 1074.25 / 1074.25 -850 / -850 -50 / -50 Lab / Micro Data Result Diagrams: 09/22/22 07:07 09/22/22 07:07 Labs: Laboratory Results - last 24 hr 09/22/22 07:07: WBC 10.3, RBC 3.30 L, Hgb 9.8 L, Hct 31.8 L, MCV 96.4, MCH 29.7, MCHC 30.8 L, RDW Std Deviation 45.8 H, RDW Coeff of Zach 12.9, Plt Count 325, MPV 9.4, Immature Gran % (Auto) 1.600 H, Neut % (Auto) 82.0 H, Lymph % (Auto) 10.2 L , [place] % (Auto) 6.1, Eos % (Auto) 0.0, Baso % (Auto) 0.1, Absolute Neuts (auto) 8.4 H, Absolute Lymphs (auto) 1.05, Nucleated RBC % 0 Micro: Microbiology 09/20/22 12:10 Blood Culture (Wb) - Anticubital Right Blood Culture - Prel iminary No growth in 48 hours. 09/21/22 00:55 Urine, Random Legionella Antigen - Final 09/21/22 00:55 Urine, Random Streptococcus pneumoniae Antigen (M - Final 09/20/22 20:45 Mucosa - Nasopharyngeal Respiratory Panel (PCR) - Final 09/20/22 12:14 Nasal Secretion SARS-CoV-2 & FLU Antigen (Rapid) - Final Physical Exam Const alert and no apparent distress Resp normal respiratory effort, no retractions, no use of accessory muscles and clear to auscultation bilaterally Cardio regular rate, regular rhythm, S1 normal heart sound and S2 normal heart sound Assessment & Plan Assessment/Plan (1) Pneumonia: PLAN: Right-sided suspected Gram negative Treatment: * abx w pip/tazo. disaster recovery analyst to Levofloxacin for 5 more days * pulm toilet Testing: * strep and legionella negative * resp panel negative * COVID 19 and influenza negative * BCx negative at 24h * SCx ordered, not performed yet (2) Abnormal spinal diagnostic imaging: PLAN: Per radiology: oblique defect through the T12 vertebral body. There is air in the intervertebral disc space at T12-L1. This may be related to prior trauma or prior healed infectious area. This is only partially visualized. 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 Pt was transferred to [facility] at that time. This may be old. Reviewed records from [facility] from April 2020. Pt had 6 weeks of IV abx. Seen by neurosurgery and no plans for surgical intervention. (Pt states she wouldn't want any). No additional work up. Follow up with neursurgery PRN. PLAN: Plan Chronic conditions: * COPD: BDs * debility: unclear baseline performance status. I suspect poor as she is an [place]. PT OT. * HTN: continue furosemide * depression: buspirone, sertraline * chronic pain: methadone on home OCT, but does not show up on OARRS, gabapentin, duloxetine. * HLP: continue statin [facility] Charges/Coding Visit Charges Inpatient E&M: 02552 Subs Hosp L2
[2022-09-22 08:05] LABS: ALB/GLOB Ratio 0.6 RATIO (0.9-2.4); AST(SGOT) 29 U/L (15-37); Alanine Aminotransfer ALT/SGPT 32 U/L (13-56); Albumin, Serum 2.4 g/dL (3.2-5.0); Alkaline Phosphatase 69 U/L (45-117); Anion Gap 6 (5-15); BUN 32 mg/dL (7-18); BUN/Creat Ratio 27.6 RATIO (10-20); Calcium,Total 9.2 mg/dL (8.5-10.1); Chloride 105 mmol/L (98-107); Creatinine, Serum 1.16 mg/dL (0.55-1.02); EST Glomerular Filtration Rate 48 mL/min (>60); Est Glom Filt Rate - Afr Amer 58 mL/min (>60); Estimated Creatinine Clearance 36.55 ml/min; Globulin 4.3 g/dL (2.2-4.2); Glucose 128 mg/dL (74-106); Potassium 3.7 mmol/L (3.5-5.1); Protein, Total 6.7 g/dL (6.4-8.2); Sodium Level 140 mmol/L (136-145)
[2022-09-22] MEDS: Heparin Injection (Vial) 5,000 UNIT/ML VIAL 5000 UNIT SC (09:33)
[2022-09-22] MEDS: Furosemide 40 MG Tablet PO (09:33)
[2022-09-22] MEDS: Sertraline 100 MG Tablet 200 MG PO (09:33)
[2022-09-22] MEDS: Metoprolol(XL)Succ 50 MG Tablet PO (09:33)
[2022-09-22] MEDS: Lisinopril 10 MG Tablet PO (09:33)
[2022-09-22] MEDS: busPIRone 5 MG Tablet 2.5 MG PO (09:33)
[2022-09-22] MEDS: Methenamine Hippurate 1 GM Tablet PO (09:33)
[2022-09-22] MEDS: DULoxetine Hcl 60 MG Capsule PO (09:33)
--- NOTE | 2022-09-22 09:43 | TREXTCAR_ITS ---
Diet Diet Order/Speech Therapy: 09/20/22 17:26 Diet: Regular - General Food consistency:: Regular Liquid Consistency:: Regular/Thin Type of Dietary Supplement:: van Ensure Compact tid Is pt able to select menu?: No Diet Comments: [facility] soft for tough meats and vegetables only, not everything Routine Orders/Code Status O2 Liters per Minute: 3 O2 Frequency: Continuous Routine Lab Work: CBC and BMP Code Status: Full Code Wound(s) R 2nd toe scabbed: Wound Type: Scab Therapies Weight Bearing: Weight bearing as tolerated Physical Therapy: Eval and Treat Occupational Therapy: Eval and Treat Problem/Diagnosis (1) Pneumonia: Status: Acute Code(s): J18.9 - Pneumonia, unspecified organism Plan: Right-sided suspected Gram negative Treatment: * abx w pip/tazo. 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 There is air in the intervertebral disc space at T12-L1. This may be related to prior trauma or prior healed infectious area. This is only partially visualized. 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 Pt was transferred to [facility] at that time. This may be old. Reviewed records from [facility] from April 2020. Pt had 6 weeks of IV abx. Seen by neurosurgery and no plans for surgical intervention. (Pt states she wouldn't want any). No additional work up. Follow up with neursurgery PRN. Plan Chronic conditions: * COPD: BDs * debility: unclear baseline performance status. I suspect poor as she is an [facility] resident. PT OT. * HTN: continue furosemide * depression: buspirone, sertraline * chronic pain: methadone on home OCT, but does not show up on OARRS, gabapentin, duloxetine. * HLP: continue statin DC back [facility]. Allergies/Procedures Done in Hospital Allergies morphine Allergy (Unknown, Verified 08/15/22 13:51) unknown amoxicillin [From Augmentin] Adverse Reaction (Verified 08/15/22 13:51) Nausea/Vom/Diarrhea clavulanic acid [From Augmentin] Adverse Reaction (Verified 08/15/22 13:51) Nausea/Vom/Diarrhea nitrofurantoin macrocrystalline [From Macrodantin] Adverse Reaction (Verified 08/15/22 13:51) Vomiting sulfamethoxazole [From Bactrim] Adverse Reaction (Verified 08/15/22 13:51) Nausea/Vom/Diarrhea trimethoprim [From Bactrim] Adverse Reaction (Verified 08/15/22 13:51) Nausea/Vom/Diarrhea Procedures: None Type of Care/Length of Stay Estimated LOS: More Than 30 Days Type of Care Needed: Intermediate Rehab Potential: Fair Prognosis: Good Additional Orders/Day of Discharge Day of Discharge: 09/22/22 Dietary and Speech Recommendations Dietitian Recommendations/Changes: Will provide 4 oz ensure compact - vanilla - w/ meals tid 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 Discharge Plan Admission Admit Date/Time: 09/20/22 16:57 Primary Reason for Your Visit: Pneumonia Attending Provider: Luiz Ji Primary Care Provider: Wolf Berry Consulting Providers: Alfred Watson Discharge Orders/Prescriptions Prescriptions: New levofloxacin 500 mg tablet 500 mg PO DAILY Qty: 5 0RF prednisone 20 mg tablet 40 mg PO DAILY 5 Days Qty: 10 0RF Continued pravastatin 40 mg tablet 40 mg PO QHS duloxetine 60 mg capsule,delayed release(DR/EC) 60 mg PO DAILY lisinopril 10 mg tablet 10 mg PO DAILY metoprolol succinate 50 mg tablet extended release 24 hr 50 mg PO DAILY Breo Ellipta 100-25 mcg/dose blister with device 1 inh inhalation DAILY buspirone 5 mg tablet 5 mg PO QHS buspirone 5 mg tablet 2.5 mg PO DAILY estradiol 0.01 % (0.1 mg/gram) cream 1 appful vaginal MOWEFR naloxone 4 mg/actuation spray,non-aerosol 1 spray intranasal Q2-3M PRN (Reason: OVERDOSE) Rx Instructions: spray 1 dose into ONE nostril; alternate nostrils w each dose until help arrives pomegranate fruit extract 250 mg capsule 500 mg PO DINNER cholecalciferol (vitamin D3) 100 mcg (4,000 unit) tablet 100 mcg PO DAILY albuterol sulfate 90 mcg/actuation HFA aerosol inhaler 2 inh inhalation Q4H PRN (Reason: SOB/WHEEZING) Centrum Silver 0.4 mg-300 mcg- 250 mcg tablet 1 tab PO DAILY polyethylene glycol 3350 17 gram powder in packet 17 g PO DAILY PRN (Reason: CONSTIPATION) gabapentin 300 mg capsule 300 mg PO TID ondansetron HCl 4 mg tablet 4 mg PO Q8H PRN (Reason: Nausea) sennosides-docusate sodium 8.6-50 mg tablet 1 tab PO BID PRN (Reason: CONSTIPATION) albuterol sulfate 2.5 mg /3 mL (0.083 %) Solution For Nebulization 2.5 mg INHALATION Q4H PRN (Reason: SOB/WHEEZING) sertraline 100 mg tablet 200 mg PO DAILY acetaminophen 500 mg Tablet 500 mg PO Q6H PRN (Reason: Pain) guaifenesin [Siltussin SA] 100 mg/5 mL Liquid 200 mg PO Q6H PRN (Reason: COUGH/SORE THROAT) melatonin 5 mg Tablet 5 mg PO QHS Proheal 30 ml PO/SL BID ULTRAFLORA IMMUNE HEALTH 170 mg PO/SL DAILY furosemide [Lasix] 40 mg tablet 40 mg PO DAILY hydrocortisone [Preparation H Hydrocortisone] 1 % Cream 1 applic TOPICAL TID PRN (Reason: Hemorrhoids) methadone 10 MG tablet 10 mg PO QHS 3 Days Qty: 3 0RF Held methenamine hippurate 1 GM tablet 1 g PO BID Hold Instructions: Resume on 09/27/22. Rx Instructions: this can be used ongoing for prevention of uti. Discontinued oxycodone-acetaminophen 5-325 mg tablet 1 tab PO DAILY PRN (Reason: Pain) prednisone 50 mg Tablet 50 mg PO DAILY Referrals / Follow Up: Wolf Berry [Primary Care Provider] - Within 2 Weeks Disposition Disposition (needs filled in before D/C Order can be placed): NonSkilled NH/[facility]
[2022-09-22] MEDS: Acetaminophen 500 MG Tablet PO (09:48)
--- NOTE | 2022-09-22 09:53 | DS.PCM_ITS ---
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 Currently on 3l/m Testing: * strep and legionella negative * resp panel negative * COVID 19 and influenza negative * BCx negative at 24h * SCx ordered, not performed yet (2) Abnormal spinal diagnostic imaging: Status: Acute Code(s): R93.7 - Abnormal findings on diagnostic imaging of other parts of musculoskeletal system Plan: Per radiology: oblique defect through the T12 vertebral body. There is air in the intervertebral disc space at T12-L1. This may be related to prior trauma or prior healed infectious area. This is only partially visualized. 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 Pt was transferred to [facility] at that time. This may be old. Reviewed records from [facility] from April 2020. Pt had 6 weeks of IV abx. Seen by neurosurgery and no plans for surgical intervention. (Pt states she wouldn't want any). No additional work up. Follow up with neursurgery PRN. Plan Chronic conditions: * COPD: BDs. Prednisone for 5 days. * debility: unclear baseline performance status. I suspect poor as she is an [facility] resident. PT OT. * HTN: continue furosemide * depression: buspirone, sertraline * chronic pain: methadone on home OCT, but does not show up on OARRS, gabapentin, duloxetine. * HLP: continue statin DC back [facility]. Medications at Discharge Home Medications pravastatin 40 mg tablet 40 mg PO QHS CHOLESTEROL 01/17/18 methenamine hippurate 1 gram tablet 1 g PO BID URINARY 04/12/20 duloxetine 60 mg capsule,delayed release 60 mg PO DAILY 06/07/20 lisinopril 10 mg tablet 10 mg PO DAILY BP 06/07/20 metoprolol succinate 50 mg tablet,extended release 24 hr 50 mg PO DAILY HEART 06/07/20 fluticasone furoate 100 mcg-vilanterol 25 mcg/dose inhalation powder (Breo Ellipta) 1 inh inhalation DAILY 08/03/21 gabapentin 300 mg capsule 300 mg PO TID NERVE 08/03/21 buspirone 5 mg tablet 2.5 mg PO DAILY DEPRESSION 02/13/22 buspirone 5 mg tablet 5 mg PO QHS 02/13/22 cholecalciferol (vitamin D3) 100 mcg (4,000 unit) tablet 100 mcg PO DAILY SUPPLEMENT 02/13/22 estradiol 0.01% (0.1 mg/gram) vaginal cream 1 appful vaginal MOWEFR UTI 02/13/22 naloxone 4 mg/actuation nasal spray 1 spray intranasal Q2-3M PRN OVERDOSE 02/13/22 ondansetron HCl 4 mg tablet 4 mg PO Q8H PRN Nausea 02/13/22 polyethylene glycol 3350 17 gram oral powder packet 17 g PO DAILY PRN CONSTIPATION 02/13/22 pomegranate fruit extract 250 mg capsule 500 mg PO DINNER SUPPLEMENT 02/13/22 sennosides 8.6 mg-docusate sodium 50 mg tablet 1 tab PO BID PRN CONSTIPATION 02/13/22 nysrbiwf-hoe-eryzr acid 0.4 mg-lycopene 300 mcg-lutein 250 mcg tablet (Centrum Silver) 1 tab PO DAILY 06/14/22 albuterol sulfate 90 mcg/actuation aerosol inhaler 2 inh inhalation Q4H PRN SOB/WHEEZING 08/15/22 Proheal 30 ml PO/SL BID 09/20/22 ULTRAFLORA IMMUNE HEALTH 170 mg PO/SL DAILY GUT HEALTH 09/20/22 acetaminophen 500 mg tablet 500 mg PO Q6H PRN Pain 09/20/22 albuterol sulfate 2.5 mg/3 mL (0.083 %) solution for nebulization 2.5 mg inhalation Q4H PRN SOB/WHEEZING 09/20/22 furosemide 40 mg tablet (Lasix) 40 mg PO DAILY EDEMA/SOB 09/20/22 guaifenesin 100 mg/5 mL oral liquid (Siltussin SA) 200 mg PO Q6H PRN COUGH/SORE THROAT 09/20/22 melatonin 5 mg tablet 5 mg PO QHS SLEEP 09/20/22 sertraline 100 mg tablet 200 mg PO DAILY DEPRESSION 09/20/22 hydrocortisone 1 % topical cream (Preparation H Hydrocortisone) 1 applic topical TID PRN Hemorrhoids 09/21/22 levofloxacin 500 mg tablet 500 mg PO DAILY #5 tabs 09/22/22 methadone 10 mg tablet 10 mg PO QHS pain 3 days #3 tabs 09/22/22 prednisone 20 mg tablet 40 mg PO DAILY 5 days #10 tabs 09/22/22 Hospital Course Operations None Procedures None Summary of Care Provided Minutes Spent on Discharge: 40 Weight / BMI Weight Weight: 100.471 kg Body Mass Index (BMI) 36.8 ABG / Lab / Microbiology Data Result Diagrams: 09/22/22 07:07 09/22/22 07:07 Laboratory: Laboratory Results - last 24 hr 09/22/22 07:07: WBC 10.3, RBC 3.30 L, Hgb 9.8 L, Hct 31.8 L, MCV 96.4, MCH 29.7, MCHC 30.8 L, RDW Std Deviation 45.8 H, RDW Coeff of Zach 12.9, Plt Count 325, MPV 9.4, Immature Gran % (Auto) 1.600 H, Neut % (Auto) 82.0 H, Lymph % (Auto) 10.2 L , [place] % (Auto) 6.1, Eos % (Auto) 0.0, Baso % (Auto) 0.1, Absolute Neuts (auto) 8.4 H, Absolute Lymphs (auto) 1.05, Nucleated RBC % 0 09/22/22 07:07: Sodium 140, Potassium 3.7, Chloride 105, Carbon Dioxide 29.0, Anion Gap 6, BUN 32 H, Creatinine 1.16 H, Estim Creat Clear Calc 36.55, Est GFR (MDRD) Af Amer 58 L, Est GFR (MDRD) Non-Af 48 L, BUN/Creatinine Ratio 27.6 H, Glucose 128 H, Calcium 9.2, Total Bilirubin 0.30, AST 29, ALT 32, Alkaline Phosphatase 69, Total Protein 6.7, Albumin 2.4 L, Globulin 4.3 H, Albumin/Globulin Ratio 0.6 L Microbiology: Microbiology 09/20/22 12:10 Blood Culture (Wb) - Anticubital Right Blood Culture - Preliminary No growth in 48 hours. 09/21/22 00:55 Urine, Random Legionella Antigen - Final 09/21/22 00:55 Urine, Random Streptococcus pneumoniae Antigen (M - Final 09/20/22 20:45 Mucosa - Nasopharyngeal Respiratory Panel (PCR) - Final 09/20/22 12:14 Nasal Secretion SARS-CoV-2 & FLU Antigen (Rapid) - Final Meaningful Use Info Meaningful Use Diagnoses (Choose all that apply): None applicable Discharge Plan Admission Admit Date/Time: 09/20/22 16:57 Primary Reason for Your Visit: Pneumonia Attending Provider: Luiz Ji Primary Care Provider: Wolf Berry Consulting Providers: Alfred Watson Discharge Orders/Prescriptions Prescriptions: New levofloxacin 500 mg tablet 500 mg PO DAILY Qty: 5 0RF prednisone 20 mg tablet 40 mg PO DAILY 5 Days Qty: 10 0RF Continued pravastatin 40 mg tablet 40 mg PO QHS duloxetine 60 mg capsule,delayed release(DR/EC) 60 mg PO DAILY lisinopril 10 mg tablet 10 mg PO DAILY metoprolol succinate 50 mg tablet extended release 24 hr 50 mg PO DAILY Breo Ellipta 100-25 mcg/dose blister with device 1 inh inhalation DAILY buspirone 5 mg tablet 5 mg PO QHS buspirone 5 mg tablet 2.5 mg PO DAILY estradiol 0.01 % (0.1 mg/gram) cream 1 appful vaginal MOWEFR naloxone 4 mg/actuation spray,non-aerosol 1 spray intranasal Q2-3M PRN (Reason: OVERDOSE) Rx Instructions: spray 1 dose into ONE nostril; alternate nostrils w each dose until help arrives pomegranate fruit extract 250 mg capsule 500 mg PO DINNER cholecalciferol (vitamin D3) 100 mcg (4,000 unit) tablet 100 mcg PO DAILY albuterol sulfate 90 mcg/actuation HFA aerosol inhaler 2 inh inhalation Q4H PRN (Reason: SOB/WHEEZING) Centrum Silver 0.4 mg-300 mcg- 250 mcg tablet 1 tab PO DAILY polyethylene glycol 3350 17 gram powder in packet 17 g PO DAILY PRN (Reason: CONSTIPATION) gabapentin 300 mg capsule 300 mg PO TID ondansetron HCl 4 mg tablet 4 mg PO Q8H PRN (Reason: Nausea) sennosides-docusate sodium 8.6-50 mg tablet 1 tab PO BID PRN (Reason: CONSTIPATION) albuterol sulfate 2.5 mg /3 mL (0.083 %) Solution For Nebulization 2.5 mg INHALATION Q4H PRN (Reason: SOB/WHEEZING) sertraline 100 mg tablet 200 mg PO DAILY acetaminophen 500 mg Tablet 500 mg PO Q6H PRN (Reason: Pain) guaifenesin [Siltussin SA] 100 mg/5 mL Liquid 200 mg PO Q6H PRN (Reason: COUGH/SORE THROAT) melatonin 5 mg Tablet 5 mg PO QHS Proheal 30 ml PO/SL BID ULTRAFLORA IMMUNE HEALTH 170 mg PO/SL DAILY furosemide [Lasix] 40 mg tablet 40 mg PO DAILY hydrocortisone [Preparation H Hydrocortisone] 1 % Cream 1 applic TOPICAL TID PRN (Reason: Hemorrhoids) methadone 10 MG tablet 10 mg PO QHS 3 Days Qty: 3 0RF Held methenamine hippurate 1 GM tablet 1 g PO BID Hold Instructions: Resume on 09/27/22. Rx Instructions: this can be used ongoing for prevention of uti. Discontinued oxycodone-acetaminophen 5-325 mg tablet 1 tab PO DAILY PRN (Reason: Pain) prednisone 50 mg Tablet 50 mg PO DAILY Referrals / Follow Up: Wolf Berry [Primary Care Provider] - Within 2 Weeks Disposition Disposition (needs filled in before D/C Order can be placed): NonSkilled NH/Int ermed Care Charges/Coding Visit Charges Inpatient E&M: 34110 Disch Hosp >30min
--- NOTE | 2022-09-22 12:10 | CASEMGMT ---
Addendum entered by Ragini Chavez 09/22/22 13:26: RAMIRO updated [facility] via [facility] of patient's discharge order with transportation set up for 3:30pm today. SUSIE Bowman Original Note: RAMIRO Note RAMIRO sent OT/PT notes and evaluations via [facility] to [facility]. Plan: return to [facility] when medically ready SUSIE Bowman
== END 2022-09-22 16:24 | disposition intermediate care facility (04) | DRG 178 ==
LOC: ED 15:14 → MS3 16:57
PROVIDERS: Admitting Provider Internal Medicine; Emergency Provider Emergency Medicine; PCP Family Medicine
DX: J15.6 Pneumonia due to other Gram-negative bacteria (principal); J44.0 Chronic obstructive pulmonary disease with (acute) lower respiratory infection; Z99.81 Dependence on supplemental oxygen; I10 Essential (primary) hypertension; E78.5 Hyperlipidemia, unspecified; M47.816 Spondylosis without myelopathy or radiculopathy, lumbar region; R93.7 Abnormal findings on diagnostic imaging of other parts of musculoskeletal system; G89.29 Other chronic pain; F32.A Depression, unspecified; R53.81 Other malaise; Z79.891 Long term (current) use of opiate analgesic; Z79.899 Other long term (current) drug therapy
CPT/HCPCS: 36415; 71045; 71275; 80048; 80053; 83605; 84484; 85025; 85379; 87040; 87428; 87449; 87633; 87811; 93005; 94640; 94667; 94668; 94762; 97110; 97162; 97166; 97530; 97535; 99285; J7030; J7050; Q9967; A4216

== ENCOUNTER 2022-12-30 07:09 | Emergency (ER) | payer MEDICARE, OTHER, MEDICAID, SELFPAY ==
[2022-12-30 07:10] VITALS: BP 118/71; PULSE 86; RESP 18; TEMP 35.8; O2SAT 96; BMI 36.2
--- NOTE | 2022-12-30 07:44 | ED.VIS.LOWEX ---
HPI History of Present Illness HPI Narrative: Right lower leg laceration. Chief Complaint: Laceration Informant: patient Occured/Mechanism Mechanism/Context: Yes injury and Yes blunt trauma Onset/Context/Timing Onset: Yesterday Context: Sudden Onset Timing: Continuous Current Severity: Mild Maximum Severity: Mild Associated Symptoms Associated Symptoms: Negative for Parasthesia, Weakness or Loss of Funtion Narrative Narrative: 77-year-old female from an area [place] [facility] history of hypertension. She struck her right lower leg yesterday on a piece of metal on a bed at [place] [facility] causing a laceration. Initially they did not think it needed sutured today they think it might. She denies any other complaints denies any fall or other injuries. Tetanus Immunization: Unknown Prior similar symptoms: No Recent Illness/Hospitalization: No PFSH PFSH Medical History Abnormal CT of thoracic spine Abnormal spinal diagnostic imaging Anxiety Chronic back pain Chronic obstructive pulmonary disease COPD (chronic obstructive pulmonary disease) DDD (degenerative disc disease) Depression Essential (primary) hypertension Fatigue Foot drop, right Hemorrhoids History of COPD History of hypertension Hyperlipidemia Malnutrition MRSA (methicillin resistant staph aureus) culture positive Non-ischemic cardiomyopathy Non-pressure chronic ulcer of right lower leg with fat layer exposed PVD (peripheral vascular disease) Soft tissue mass Stage III pressure ulcer of right ankle Venous insufficiency of right leg Venous ulcer of left lower extremity without varicose veins Vertebral osteomyelitis Vitamin D deficiency Home Medications pravastatin 40 mg tablet 40 mg PO QHS CHOLESTEROL 01/17/18 [History Last Taken 09/19/22] methenamine hippurate 1 gram tablet 1 g PO BID URINARY 04/12/20 [History Last Taken 09/20/22] duloxetine 60 mg capsule,delayed release 60 mg PO DAILY 06/07/20 [History Last Taken 09/20/22] lisinopril 10 mg tablet 10 mg PO DAILY BP 06/07/20 [History Last Taken 09/20/22] metoprolol succinate 50 mg tablet,extended release 24 hr 50 mg PO DAILY HEART 06/07/20 [History Last Taken 09/20/22] fluticasone furoate 100 mcg-vilanterol 25 mcg/dose inhalation powder (Breo Ellipta) 1 inh inhalation DAILY 08/03/21 [History Last Taken 09/20/22] gabapentin 300 mg capsule 300 mg PO TID NERVE 08/03/21 [History Last Taken 09/20/22] buspirone 5 mg tablet 2.5 mg PO DAILY DEPRESSION 02/13/22 [History Last Taken 09/20/22] buspirone 5 mg tablet 5 mg PO QHS 02/13/22 [History Last Taken 09/19/22] cholecalciferol (vitamin D3) 100 mcg (4,000 unit) tablet 100 mcg PO DAILY SUPPLEMENT 02/13/22 [History Last Taken 09/20/22] estradiol 0.01% (0.1 mg/gram) vaginal cream 1 appful vaginal MOWEFR UTI 02/13/22 [History Last Taken 09/19/22] naloxone 4 mg/actuation nasal spray 1 spray intranasal Q2-3M PRN OVERDOSE 02/13/22 [History Last Taken Unknown] ondansetron HCl 4 mg tablet 4 mg PO Q8H PRN Nausea 02/13/22 [History Last Taken Unknown] polyethylene glycol 3350 17 gram oral powder packet 17 g PO DAILY PRN CONSTIPATION 02/13/22 [History Last Taken Unknown] pomegranate fruit extract 250 mg capsule 500 mg PO DINNER SUPPLEMENT 02/13/22 [History Last Taken 09/19/22] sennosides 8.6 mg-docusate sodium 50 mg tablet 1 tab PO BID PRN CONSTIPATION 02/13/22 [History Last Taken 09/20/22] igxhoxyq-ndc-fpycd acid 0.4 mg-lycopene 300 mcg-lutein 250 mcg tablet (Centrum Silver) 1 tab PO DAILY 06/14/22 [History Last Taken 09/20/22] albuterol sulfate 90 mcg/actuation aerosol inhaler 2 inh inhalation Q4H PRN SOB/WHEEZING 08/15/22 [History Last Taken Unknown] Proheal 30 ml PO/SL BID 09/20/22 [History Last Taken 09/20/22] ULTRAFLORA IMMUNE HEALTH 170 mg PO/SL DAILY GUT HEALTH 09/20/22 [History Last Taken 09/19/22] acetaminophen 500 mg tablet 500 mg PO Q6H PRN Pain 09/20/22 [History Last Taken 09/17/22] albuterol sulfate 2.5 mg/3 mL (0.083 %) solution for nebulization 2.5 mg inhalation Q4H PRN SOB/WHEEZING 09/20/22 [History Last Taken 09/20/22] furosemide 40 mg tablet (Lasix) 40 mg PO DAILY EDEMA/SOB 09/20/22 [History Last Taken Unknown] guaifenesin 100 mg/5 mL oral liquid (Siltussin SA) 200 mg PO Q6H PRN COUGH/SORE THROAT 09/20/22 [History Last Taken 09/20/22] melatonin 5 mg tablet 5 mg PO QHS SLEEP 09/20/22 [History Last Taken 09/19/22] sertraline 100 mg tablet 200 mg PO DAILY DEPRESSION 09/20/22 [History Last Taken 09/20/22] hydrocortisone 1 % topical cream (Preparation H Hydrocortisone) 1 applic topical TID PRN Hemorrhoids 09/21/22 [History Last Taken Unknown] levofloxacin 500 mg tablet 500 mg PO DAILY #5 tabs 09/22/22 [Rx Last Taken Unknown] methadone 10 mg tablet 10 mg PO QHS pain 3 days #3 tabs 09/22/22 [Rx Last Taken Unknown] prednisone 20 mg tablet 40 mg PO DAILY 5 days #10 tabs 09/22/22 [Rx Last Taken Unknown] Allergy/AdvReac Type Severity Reaction Status Date / Time morphine Allergy Unknown unknown Verified 12/30/22 07:17 amoxicillin [From Augmentin] AdvReac Nausea/Vom/ Verified 12/30/22 07:17 Diarrhea clavulanic acid AdvReac Nausea/Vom/ Verified 12/30/22 07:17 [From Augmentin] Diarrhea nitrofurantoin AdvReac Vomiting Verified 12/30/22 07:17 macrocrystalline [From Macrodantin] sulfamethoxazole AdvReac Nausea/Vom/ Verified 12/30/22 07:17 [From Bactrim] Diarrhea trimethoprim [From Bactrim] AdvReac Nausea/Vom/ Verified 12/30/22 07:17 Diarrhea Family History Father Hypertension Mother Diabetes Hypertension Brother Diabetes Brother Cancer Sister Hypertension Surgical History History of hip replacement History of hysterectomy History of incisional hernia repair Hx of repair of rotator cuff Social History Smoking Status: Never smoker alcohol intake: never substance use type: does not use caffeine: Yes Type: coffee Number of servings: 2 what type of physical activity do you participate in: none additional social history: Lives at [facility] ROS ED ROS Narrative Denies recent illness. Review of Systems ROS Unobtainable: Denies due to encephalopathy Constitutional Constitutional ED: Denies chills or fever(s) Eyes Eyes: Denies blurry vision ENT ENT ED: Denies ear pain Cardiovascular Cardiovascular: Denies chest pain Respiratory/Chest Respiratory/Chest: Denies cough Gastrointestinal Gastrointestinal: Denies abdominal pain Genitourinary Genitourinary ED: Denies dysuria Musculoskeletal Musculoskeletal: Denies arthralgias Integumentary Denies abscess Neurologic Neurologic: Denies headache(s) Psychiatric Psychiatric: Denies anxiety Endocrine Endocrinology: Denies polydipsia Hematologic/Lymphatic Hematologic/Lymphatic: Denies easy bleeding Allergic/Immunologic Allergic/Immunologic ED: Denies mouth swelling EXAM Physical Exam Narrative Exam Narrative: 77-year-old female no acute distress. Vital signs stable afebrile. Lying in bed. No one else in the room. No distress. H EENT exam unremarkable. No signs of trauma. Moist with membranes. Neck nontender. Lungs clear to auscultation. Heart regular rhythm rate about 85 no murmur. Chest wall nontender. Abdomen soft nontender. Moving all 4 extremities. Normal lieutenant colonel strength. Normal dorsi plantarflexion. The right anterior lundberg on the distal end of her lower leg just above the ankle she has about a 5 nch laceration. It is actively bleeding. Foot is neurovascular intact. There is no infection. There is no bony deformity or tenderness. Neurologically she is awake alert with no focal motor deficits. Const Vital Signs: 12/30/22 07:10 12/30/22 08:30 12/30/22 08:53 Temperature 96.5 F L Temperature Source Oral Pulse Rate 86 80 81 Respiratory Rate 18 18 16 Blood Pressure 118/71 53/37 L 79/40 L Blood Pressure Mean 86 42 53 Pulse Ox 96 94 93 Oxygen Delivery Method Room Air Nasal Cannula Nasal Cannula Oxygen Flow Rate (L/min) 2 2 12/30/22 09:28 Temperature Temperature Source Pulse Rate 73 Respiratory Rate 16 Blood Pressure 119/69 Blood Pressure Mean 85 Pulse Ox 97 Oxygen Delivery Method Nasal Cannula Oxygen Flow Rate (L/min) 2 Positive well nourished, well developed and obese; Negative for cachectic, contractures or unkempt General Appearance ED: well developed and NAD; Negative for unkempt, cachectic or contractures Nutritional Appearance: obese; Negative for cachectic HEENT Reports moist mucous membranes normocephalic and atraumatic; Negative for trauma or tenderness Eyes PERRL General Eye ED: Negative for other Neck full ROM and supple Thyroid: Negative for tender Lymph Lymphatic: Negative for other Chest Wall inspection of chest normal and palpation of chest normal Chest: Negative for other Resp normal respiratory effort, no retractions and clear to auscultation bilaterally Effort and Inspection: Negative for pain with movement Auscultation: Negative for rales, rhonchi or wheezes Cardio regular rate, regular rhythm, S1 normal heart sound, S2 normal heart sound and no murmurs Rate: Negative for bradycardia or tachycardic Rhythm: Negative for abnormal rhythm GI non-tender, non-distended and no masses Inspection: Negative for abdominal distention Auscultation: normoactive bowel sounds Palpation: soft; Negative for tender or guarding Bladder / Kidney Exam: No other Back/Spine no CVA tenderness Extremity normal to inspection and full ROM Extremity Narrative: Except right lower leg just above the ankle 5 inch laceration. Mild active bleeding. No bony deformity. Right foot neurovascular intact. Neuro oriented x3, CN's II-XII intact bilaterally and moves all extremities Sensorium / Orientation: alert, oriented to person, oriented to place and oriented to time; Negative for orientation impaired, confused, lethargic or stuporous Motor Exam: strength 5/5 throughout Psych mental status grossly normal Appearance: Negative for unkempt Speech: No other Mood & Affect: Negative for anxious Skin No no wounds Skin Narrative: 3 inch laceration linear right lower leg. Lesions: no lesions Rashes: no rashes Trauma: laceration linear; Negative for abrasion MDM MDM MDM Narrative Medical decision making narrative: Patient has about 5 inch laceration right lower leg actively bleeding. This is a day old. I would attempt to repair it however her skin may tear and this may not be amenable to suturing or stapling we will see after attempted. There is no signs of infection. Patient doing well after laceration repair. She will be given Tylenol for mild headache. Nurses are cleaning and dressing the wound and giving her a tetanus shot. As a nurses for dressing her wound. Patient became hypotensive and diaphoretic. They are placing an IV. She will be given Zofran for nausea. EKG, CBC, chemistry and type and screen to be obtained. She had some blood loss from the laceration since she has been here its been not enough to make her hypotensive but if this occurred throughout the night that is a possibility. Patient will be given a liter normal saline. Repeat exam patient is doing well at 10:07 AM blood pressure and heart rate are normal. She is feeling better. Before she got hypotensive she did have some nausea. May have vagal. But clinically looks well now. History & Record Review Discussion w/independent historian: Patient Lab Data Attestation: I reviewed the patient's lab results. Lab results narrative: CBC shows a normal white count of 9. H&H of 10 and 32.8 which is her baseline anemia. Platelets 226. Electrolytes show a sodium 134 gap of 4 BUN of 32 creatinine 1.13 consistent with mild dehydration. Glucose 114. EKG was a sinus rhythm rate of 78. Labs: Laboratory Results - last 24 hr 12/30/22 12/30/22 12/30/22 08:40 08:40 08:40 WBC 9.0 RBC 3.36 L Hgb 10.0 L Hct 32.8 L MCV 97.6 MCH 29.8 MCHC 30.5 L RDW Std Deviation 55.8 H RDW Coeff of Zach 15.6 H Plt Count 226 MPV 10.8 Immature Gran % (Auto) 0.700 Neut % (Auto) 59.3 Lymph % (Auto) 31.6 Mcdonough % (Auto) 6.8 Eos % (Auto) 1.3 Baso % (Auto) 0.3 Absolute Neuts (auto) 5.4 Absolute Lymphs (auto) 2.85 Nucleated RBC % 0 Sodium 134 L Potassium 3.9 Chloride 104 Carbon Dioxide 26.0 Anion Gap 4 L BUN 32 H Creatinine 1.13 H Estim Creat Clear Calc 37.52 Est GFR (MDRD) Af Amer 60 Est GFR (MDRD) Non-Af 50 L BUN/Creatinine Ratio 28.3 H Glucose 114 H Calcium 9.1 Blood Type A POSITIVE Antibody Screen NEGATIVE Rhythm Strip Rhythm Strip: Sinus Rhythm Rate: 78 Ectopy: None EKG Initial EKG: Attestation: I personally reviewed and interpreted this EKG as follows: Interpretation: Sinus Rhythm and No Acute Injury Pattern Comments: Normal sinus rhythm rate of 78 no acute signs of MN or ischemia nor dysrhythmia. Procedures Lacerations Right lower leg laceration: Length: 5 in Depth: Sub Q Shape: Linear Prep: Gisella-Kami Laceration repair: Irrigated, Lidocaine, Local and Skin sutures Number of Sutures/Cristóbal: 10 Suture Information: Ethilon, Simple and 4-0 Comment: Right lower leg laceration about 5 inches. Linear. Volar skin and subcu tissue. Mild bleeding. Wound was locally anesthetized with lidocaine. Cleaned with Jeff-Kami. Washed and irrigated with saline. Explored. No foreign body. No infection. Closed using 10 simple interrupted 4-0 Ethilon sutures. Proper hemostasis wound closure is obtained. Nurses placed a dressing and updated the patient's tetanus. Discharge Plan Triage Chief Complaint: Laceration ED Provider: Delmar Jeter Dx/Rx/DC Orders Clinical Impression: Laceration of right lower leg, History of COPD, History of hypertension Instructions: ED Laceration Extremity Prescriptions: No Action pravastatin 40 mg tablet 40 mg PO QHS duloxetine 60 mg capsule,delayed release(DR/EC) 60 mg PO DAILY lisinopril 10 mg tablet 10 mg PO DAILY metoprolol succinate 50 mg tablet extended release 24 hr 50 mg PO DAILY Breo Ellipta 100-25 mcg/dose blister with device 1 inh inhalation DAILY buspirone 5 mg tablet 5 mg PO QHS buspirone 5 mg tablet 2.5 mg PO DAILY estradiol 0.01 % (0.1 mg/gram) cream 1 appful vaginal MOWEFR naloxone 4 mg/actuation spray,non-aerosol 1 spray intranasal Q2-3M PRN (Reason: OVERDOSE) Rx Instructions: spray 1 dose into ONE nostril; alternate nostrils w each dose until help arrives pomegranate fruit extract 250 mg capsule 500 mg PO DINNER cholecalciferol (vitamin D3) 100 mcg (4,000 unit) tablet 100 mcg PO DAILY albuterol sulfate 90 mcg/actuation HFA aerosol inhaler 2 inh inhalation Q4H PRN (Reason: SOB/WHEEZING) Centrum Silver 0.4 mg-300 mcg- 250 mcg tablet 1 tab PO DAILY polyethylene glycol 3350 17 gram powder in packet 17 g PO DAILY PRN (Reason: CONSTIPATION) methenamine hippurate 1 GM tablet 1 g PO BID Hold Instructions: Resume on 09/27/22. Rx Instructions: this can be used ongoing for prevention of uti. gabapentin 300 mg capsule 300 mg PO TID ondansetron HCl 4 mg tablet 4 mg PO Q8H PRN (Reason: Nausea) sennosides-docusate sodium 8.6-50 mg tablet 1 tab PO BID PRN (Reason: CONSTIPATION) albuterol sulfate 2.5 mg /3 mL (0.083 %) Solution For Nebulization 2.5 mg INHALATION Q4H PRN (Reason: SOB/WHEEZING) sertraline 100 mg tablet 200 mg PO DAILY acetaminophen 500 mg Tablet 500 mg PO Q6H PRN (Reason: Pain) guaifenesin [Siltussin SA] 100 mg/5 mL Liquid 200 mg PO Q6H PRN (Reason: COUGH/SORE THROAT) melatonin 5 mg Tablet 5 mg PO QHS Proheal 30 ml PO/SL BID ULTRAFLORA IMMUNE HEALTH 170 mg PO/SL DAILY furosemide [Lasix] 40 mg tablet 40 mg PO DAILY hydrocortisone [Preparation H Hydrocortisone] 1 % Cream 1 applic TOPICAL TID PRN (Reason: Hemorrhoids) levofloxacin 500 mg tablet 500 mg PO DAILY Qty: 5 0RF prednisone 20 mg tablet 40 mg PO DAILY 5 Days Qty: 10 0RF methadone 10 MG tablet 10 mg PO QHS 3 Days Qty: 3 0RF Primary Care Provider: Wolf Berry Referrals: Wolf Berry MD [Primary Care Provider] - 10 Day for suture removal Activity Restrictions/Additional Instructions: Keep the wound clean and dry. It may get wet but should not soak in any dirty water and should be dried thoroughly. Clean daily and apply antibiotic ointment daily. Watch for any signs of infection such as redness, pus, streaks or fever if seen need to be evaluated. Stitches out in 10 days. Tetanus shot was updated. Disposition Disposition: Home, Self Care
[2022-12-30 08:30] VITALS: BP 53/37; PULSE 80; RESP 18; O2SAT 94
[2022-12-30] MEDS: 0.9% Normal Saline 1,000 ML 1000 ML IV (08:42)
[2022-12-30] MEDS: Ondansetron 4 MG/2 ML Vial IV (08:43)
[2022-12-30 08:53] VITALS: BP 79/40; PULSE 81; RESP 16; O2SAT 93
[2022-12-30 09:06] LABS: Absolute Lymphocyte Count 2.85 X10^3/uL (0.83-4.51); Absolute Neutrophil Count 5.4 X10^3/uL (2.0-7.7); Basophil# 0.03 X10^3/uL; Basophil% 0.3 % (0-1); Eosinophil# 0.12 X10^3/uL; Eosinophils% 1.3 % (0-5); Hematocrit 32.8 % (37-47); Lymphocyte # 2.85 X10^3/ul (0.83-4.51); Lymphocyte % 31.6 % (19-41); Mean Corp Hgb Conc 30.5 g/dL (32-36); Mean Corpuscular Hgb 29.8 pg (27.0-32.0); Mean Corpuscular Volume 97.6 fL (81-99); Mean Platelet Vol. 10.8 fl (6.2-12.0); Monocyte# 0.61 X10^3/uL; Monocyte% 6.8 % (0-10); NRBC Flagged by Analyzer 0 % (0-5); Neutrophil # 5.36 X10^3/uL (2.7-7.7); Neutrophil % 59.3 % (47-70); Platelet Count 226 K/mm3 (150-450); RBC Distribution Width CV 15.6 % (11.6-14.6); RBC Distribution Width SD 55.8 fl (35.1-43.9); Red Blood Count 3.36 M/mm3 (4.2-5.4)
[2022-12-30 09:07] LABS: Anion Gap 4 (5-15); BUN 32 mg/dL (7-18); BUN/Creat Ratio 28.3 RATIO (10-20); Calcium,Total 9.1 mg/dL (8.5-10.1); Chloride 104 mmol/L (98-107); Creatinine, Serum 1.13 mg/dL (0.55-1.02); EST Glomerular Filtration Rate 50 mL/min (>60); Est Glom Filt Rate - Afr Amer 60 mL/min (>60); Estimated Creatinine Clearance 37.52 ml/min; Glucose 114 mg/dL (74-106); Potassium 3.9 mmol/L (3.5-5.1); Sodium Level 134 mmol/L (136-145)
[2022-12-30 09:28] VITALS: BP 119/69; PULSE 73; RESP 16; O2SAT 97
[2022-12-30] MEDS: Diphth,Pertuss(Acell),Tet Vac 0.5 ML Vial IM (09:56)
[2022-12-30] MEDS: Lidocaine 1% (20 ml mdv) 20 ML Vial INFILT (09:57)
[2022-12-30] MEDS: Acetaminophen 500 MG Tablet 1000 MG PO (09:57)
[2022-12-30 10:17] VITALS: BP 115/52; PULSE 69; RESP 16; TEMP 36.1; O2SAT 96
--- NOTE | 2022-12-30 10:17 | NURSING ---
CALLED [facility], ETA IS 30 MIN
== END 2022-12-30 10:56 | disposition home or self-care (01) ==
PROVIDERS: Emergency Provider Emergency Medicine; PCP Family Medicine; Visit Provider Emergency Medicine
DX: S81.811A Laceration without foreign body, right lower leg, initial encounter (principal); E66.9 Obesity, unspecified; Z23 Encounter for immunization; X58.XXXA Exposure to other specified factors, initial encounter
CPT/HCPCS: 12002; 80048; 85025; 86850; 86900; 86901; 90471; 93005; 96361; 96374; 99285; J7030; J2405

== ENCOUNTER 2023-09-21 19:41 | Inpatient (IN) | payer MEDICARE, OTHER, MEDICAID, SELFPAY ==
[2023-09-21] VITALS (9 sets, daily range): BP systolic 94–180; BP diastolic 63–108; PULSE 98–108; RESP 12–97; TEMP 37.3–38; O2SAT 24–97; BMI 41.3
[2023-09-21] MEDS: Ipratropium/Albuterol Sulfate 3 ML AMPUL.NEB INHALATION (20:12)
[2023-09-21] MEDS: Albuterol 2.5 MG/3 ML VIAL.NEB. INHALATION (20:12)
--- NOTE | 2023-09-21 20:16 | ED.VIS.DYS ---
HPI <BON Weir - Last Filed: 09/21/23 21:15> History of Present Illness Chief Complaint: Shortness of Breath Narrative Narrative: Patient presenting with flulike symptoms she has had for the past several days. She does report that she was recently exposed to COVID at the long term that she resides at. She has had a fever, cough, shortness of breath, fatigue, decreased appetite, nausea, and a few episodes of vomiting. She does report having midsternal chest pain. She has a history of COPD and does wear 2 L O2 at baseline, she reports that at times this does have to be adjusted. PFS <BON Weir - Last Filed: 09/21/23 21:15> [facility] Medical History Abnormal CT of thoracic spine Abnormal spinal diagnostic imaging Anxiety Chronic back pain Chronic obstructive pulmonary disease COPD (chronic obstructive pulmonary disease) DDD (degenerative disc disease) Depression Essential (primary) hypertension Fatigue Foot drop, right Hemorrhoids History of COPD History of hypertension Hyperlipidemia Malnutrition MRSA (methicillin resistant staph aureus) culture positive Non-ischemic cardiomyopathy Non-pressure chronic ulcer of right lower leg with fat layer exposed PVD (peripheral vascular disease) Soft tissue mass Stage III pressure ulcer of right ankle Venous insufficiency of right leg Venous ulcer of left lower extremity without varicose veins Vertebral osteomyelitis Vitamin D deficiency Home Medications pravastatin 40 mg tablet 40 mg PO QHS CHOLESTEROL 01/17/18 [History Last Taken 09/19/22] methenamine hippurate 1 gram tablet 1 g PO BID URINARY 04/12/20 [History Last Taken 09/20/22] duloxetine 60 mg capsule,delayed release 60 mg PO DAILY 06/07/20 [History Last Taken 09/20/22] lisinopril 10 mg tablet 10 mg PO DAILY BP 06/07/20 [History Last Taken 09/20/22] metoprolol succinate 50 mg tablet,extended release 24 hr 50 mg PO DAILY HEART 06/07/20 [History Last Taken 09/20/22] fluticasone furoate 100 mcg-vilanterol 25 mcg/dose inhalation powder (Breo Ellipta) 1 inh inhalation DAILY 08/03/21 [History Last Taken 09/20/22] gabapentin 300 mg capsule 300 mg PO TID NERVE 12/02/21 [History Last Taken 09/20/22] buspirone 5 mg tablet 5 mg PO DAILY DEPRESSION 02/13/22 [History Last Taken 09/20/22] cholecalciferol (vitamin D3) 100 mcg (4,000 unit) tablet 100 mcg PO DAILY SUPPLEMENT 02/13/22 [History Last Taken 09/20/22] estradiol 0.01% (0.1 mg/gram) vaginal cream 1 appful vaginal MOWEFR UTI 02/13/22 [History Last Taken 09/19/22] naloxone 4 mg/actuation nasal spray 1 spray intranasal Q2-3M PRN OVERDOSE 02/13/22 [History Last Taken Unknown] ondansetron HCl 4 mg tablet 4 mg PO Q8H PRN Nausea 02/13/22 [History Last Taken Unknown] polyethylene glycol 3350 17 gram oral powder packet 17 g PO DAILY PRN CONSTIPATION 02/13/22 [History Last Taken Unknown] pomegranate fruit extract 250 mg capsule 500 mg PO DINNER SUPPLEMENT 02/13/22 [History Last Taken 09/19/22] sennosides 8.6 mg-docusate sodium 50 mg tablet 1 tab PO BID PRN CONSTIPATION 02/13/22 [History Last Taken 09/20/22] kdjkwgye-ouy-tyuiy acid 0.4 mg-lycopene 300 mcg-lutein 250 mcg tablet (Centrum Silver) 1 tab PO DAILY 06/14/22 [History Last Taken 09/20/22] albuterol sulfate 90 mcg/actuation aerosol inhaler 2 inh inhalation Q4H PRN SOB/WHEEZING 08/15/22 [History Last Taken Unknown] Proheal 30 ml PO/SL BID 09/20/22 [History Last Taken 09/20/22] ULTRAFLORA IMMUNE HEALTH 170 mg PO/SL DAILY GUT HEALTH 09/20/22 [History Last Taken 09/19/22] acetaminophen 500 mg tablet 500 mg PO Q6H PRN Pain 09/20/22 [History Last Taken 09/17/22] albuterol sulfate 2.5 mg/3 mL (0.083 %) solution for nebulization 2.5 mg inhalation Q4H PRN SOB/WHEEZING 09/20/22 [History Last Taken 09/20/22] furosemide 40 mg tablet (Lasix) 40 mg PO DAILY EDEMA/SOB 09/20/22 [History Last Taken Unknown] guaifenesin 100 mg/5 mL oral liquid (Siltussin SA) 200 mg PO Q6H PRN COUGH/SORE THROAT 09/20/22 [History Last Taken 09/20/22] melatonin 5 mg tablet 5 mg PO QHS SLEEP 09/20/22 [History Last Taken 09/19/22] sertraline 100 mg tablet 200 mg PO DAILY DEPRESSION 09/20/22 [History Last Taken 09/20/22] hydrocortisone 1 % topical cream (Preparation H Hydrocortisone) 1 applic topical TID PRN Hemorrhoids 09/21/22 [History Last Taken Unknown] levofloxacin 500 mg tablet 500 mg PO DAILY #5 tabs 09/22/22 [Rx Last Taken Unknown] methadone 10 mg tablet 10 mg PO QHS pain 3 days #3 tabs 09/22/22 [Rx Last Taken Unknown] prednisone 20 mg tablet 40 mg (2 x 20 mg) PO DAILY 5 days #10 tabs 09/22/22 [Rx Last Taken Unknown] buspirone 5 mg tablet 5 mg PO TID 03/14/23 [History Last Taken Unknown] oxycodone-acetaminophen 5 mg-325 mg tablet (Percocet) 1 tab PO TID PRN pain 03/14/23 [History Last Taken Unknown] menthol 4 % topical gel (Biofreeze (menthol)) 1 applic topical BID PRN pain 09/21/23 [History Last Taken Unknown] polyethylene glycol 3350 17 gram/dose oral powder (ClearLax) 17 g PO DAILY PRN constipation 09/21/23 [History Last Taken Unknown] Allergy/AdvReac Type Severity Reaction Status Date / Time morphine Allergy Unknown unknown Verified 09/21/23 19:44 amoxicillin [From Augmentin] AdvReac Nausea/Vom/ Verified 09/21/23 19:44 Diarrhea clavulanic acid AdvReac Nausea/Vom/ Verified 09/21/23 19:44 [From Augmentin] Diarrhea nitrofurantoin AdvReac Vomiting Verified 09/21/23 19:44 macrocrystalline [From Macrodantin] sulfamethoxazole AdvReac Nausea/Vom/ Verified 09/21/23 19:44 [From Bactrim] Diarrhea trimethoprim [From Bactrim] AdvReac Nausea/Vom/ Verified 09/21/23 19:44 Diarrhea Family History Father Hypertension Mother Diabetes Hypertension Brother Diabetes Brother Cancer Sister Hypertension Surgical History History of hip replacement History of hysterectomy History of incisional hernia repair Hx of repair of rotator cuff Social History Smoking Status: Never smoker alcohol intake: never substance use type: does not use caffeine: Yes Type: coffee Number of servings: 2 what type of physical activity do you participate in: none additional social history: Lives at [facility] <BON Weir - Last Filed: 09/21/23 21:15> [facility] ED Constitutional Constitutional ED: Reports chills and fever(s) Cardiovascular Cardiovascular: Reports chest pain; Denies palpitations Respiratory/Chest Respiratory/Chest: Reports cough, dyspnea and tachypnea Gastrointestinal Gastrointestinal: Reports nausea and vomiting; Denies abdominal pain, constipation or diarrhea Genitourinary Genitourinary ED: Denies dysuria, hematuria or urinary urgency Musculoskeletal Musculoskeletal: Denies arthralgias or myalgias Integumentary Denies rash Neurologic Neurologic: Denies weakness EXAM <BON Weir - Last Filed: 09/21/23 21:15> Physical Exam Const Vital Signs: 09/21/23 19:44 09/21/23 19:50 09/21/23 20:12 Temperature 100.4 F H 100.4 F H Temperature Source Temporal Temporal Pulse Rate 102 H 103 H 106 H Respiratory Rate 27 H 23 H 26 H Respiratory Effort Respiratory Pattern Tachypnea Blood Pressure 180/92 H 153/95 H Blood Pressure Mean 121 114 Pulse Ox 96 97 Oxygen Delivery Method Nasal Cannula Nasal Cannula Oxygen Flow Rate (L/min) 2 2 Fraction of Inspired Oxygen (FIO2) 09/21/23 20:12 09/21/23 20:50 09/21/23 20:50 Temperature 99.4 F H Temperature Source Temporal Pulse Rate 108 H Respiratory Rate 20 H Respiratory Effort Respiratory Pattern Blood Pressure 141/98 H Blood Pressure Mean 112 Pulse Ox 94 95 Oxygen Delivery Method Nasal Cannula Bi-pap Bi-pap Oxygen Flow Rate (L/min) 2 Fraction of Inspired Oxygen (FIO2) 40 40 09/21/23 20:53 09/21/23 20:50 09/21/23 21:00 Temperature 99.4 F H Temperature Source Temporal Pulse Rate 106 H 102 H Respiratory Rate 35 H 97 H Respiratory Effort Short of Breath Respiratory Pattern Tachypnea Blood Pressure 94/63 Blood Pressure Mean 73 Pulse Ox 96 24 Oxygen Delivery Method Bi-pap Bi-pap Oxygen Flow Rate (L/min) Fraction of Inspired Oxygen (FIO2) 40 35 40 09/21/23 22:00 09/21/23 22:30 Temperature 99.2 F H Temperature Source Axillary Pulse Rate 102 H 98 Respiratory Rate 17 18 Respiratory Effort Respiratory Pattern Normal Blood Pressure 105/83 H Blood Pressure Mean 90 Pulse Ox 92 93 Oxygen Delivery Method Bi-pap Oxygen Flow Rate (L/min) Fraction of Inspired Oxygen (FIO2) 40 35 Positive well nourished, well developed and no apparent distress General Appearance ED: well developed HEENT Reports normocephalic and head/scalp atraumatic Mouth ED: Yes moist mucous membranes normal Eyes PERRL and EOMs intact bilaterally Neck full ROM and supple Chest Wall inspection of chest normal Resp Resp Narrative: Tachypnea, coarse lung sounds and expiratory wheezes throughout. Cardio regular rate and regular rhythm GI soft to palpation, non-tender, non-distended and no masses Back/Spine normal ROM and normal to inspection Extremity normal to inspection and full ROM Neuro oriented x3, CN's II-XII intact bilaterally, moves all extremities, no focal motor deficits and no sensory deficits noted Sensorium / Orientation: awake and alert Psych mental status grossly normal and thought process normal Skin no rashes or lesions noted and no wounds <Dr. Nancy Alcocer MD - Last Filed: 09/21/23 22:37> Physical Exam Const Vital Signs: 09/21/23 19:44 09/21/23 19:50 09/21/23 20:12 Temperature 100.4 F H 100.4 F H Temperature Source Temporal Temporal Pulse Rate 102 H 103 H 106 H Respiratory Rate 27 H 23 H 26 H Respiratory Effort Respiratory Pattern Tachypnea Blood Pressure 180/92 H 153/95 H Blood Pressure Mean 121 114 Pulse Ox 96 97 Oxygen Delivery Method Nasal Cannula Nasal Cannula Oxygen Flow Rate (L/min) 2 2 Fraction of Inspired Oxygen (FIO2) 09/21/23 20:12 09/21/23 20:50 09/21/23 20:50 Temperature 99.4 F H Temperature Source Temporal Pulse Rate 108 H Respiratory Rate 20 H Respiratory Effort Respiratory Pattern Blood Pressure 141/98 H Blood Pressure Mean 112 Pulse Ox 94 95 Oxygen Delivery Method Nasal Cannula Bi-pap Bi-pap Oxygen Flow Rate (L/min) 2 Fraction of Inspired Oxygen (FIO2) 40 40 09/21/23 20:53 09/21/23 20:50 09/21/23 21:00 Temperature 99.4 F H Temperature Source Temporal Pulse Rate 106 H 102 H Respiratory Rate 35 H 97 H Respiratory Effort Short of Breath Respiratory Pattern Tachypnea Blood Pressure 94/63 Blood Pressure Mean 73 Pulse Ox 96 24 Oxygen Delivery Method Bi-pap Bi-pap Oxygen Flow Rate (L/min) Fraction of Inspired Oxygen (FIO2) 40 35 40 09/21/23 22:00 09/21/23 22:30 Temperature 99.2 F H Temperature Source Axillary Pulse Rate 102 H 98 Respiratory Rate 17 18 Respiratory Effort Respiratory Pattern Normal Blood Pressure 105/83 H Blood Pressure Mean 90 Pulse Ox 92 93 Oxygen Delivery Method Bi-pap Oxygen Flow Rate (L/min) Fraction of Inspired Oxygen (FIO2) 40 35 MDM <BON Weir - Last Filed: 09/21/23 21:15> [facility] MDM Narrative Medical decision making narrative: Patient presenting due to shortness of breath and flulike symptoms that she has had over the past several days. She is slightly tachycardic here at 106 bpm, slightly tachypneic, slightly febrile. Oxygen saturation is 94% on her normal 2 L. Patient will be given breathing treatments. She did desaturate to the high 80s on the 2 L O2, at that time she also was pursed lipped breathing, she was agreeable to trying BiPAP. Labs will be obtained, COVID/influenza/RSV will be obtained. Will obtain blood cultures. Chest x-ray to rule out pneumonia and other cardiopulmonary abnormality. Lab Data Attestation: I reviewed the patient's lab results. Lab results narrative: WBC 15.8, hemoglobin 11.7, sodium 133, BUN 30, creatinine 1.21, troponin 30 Labs: Laboratory Results - last 24 hr 09/21/23 09/21/23 20:25 20:40 WBC 15.8 H RBC 3.87 L Hgb 11.7 L Hct 37.5 MCV 96.9 MCH 30.2 MCHC 31.2 L RDW Std Deviation 45.1 H RDW Coeff of Zach 12.8 Plt Count 279 MPV 10.3 Immature Gran % (Auto) 0.500 Neut % (Auto) 75.8 H Lymph % (Auto) 13.1 L [place] % (Auto) 9.8 Eos % (Auto) 0.4 Baso % (Auto) 0.4 Absolute Neuts (auto) 11.9 H Absolute Lymphs (auto) 2.07 Nucleated RBC % 0 Differential Comment SCANNED Sodium 133 L Potassium 4.0 Chloride 104 Carbon Dioxide 21.0 Anion Gap 8 BUN 30 H Creatinine 1.21 H Estim Creat Clear Calc 41.38 Est GFR (MDRD) Af Amer 55 L Est GFR (MDRD) Non-Af 46 L BUN/Creatinine Ratio 24.8 H Glucose 129 H Lactic Acid 1.1 Calcium 9.6 Troponin I High Sens 30 Radiography Diagnostic Testing: Clinical Impression(s) from Imaging Studies Chest X-Ray 09/21/23 21:07 IMPRESSION: Mild bibasilar discoid atelectasis and subsegmental atelectasis in the right upper lobe Electronically Signed: Jan Pérez MD at 21:18 EST Reading Location ID and State: [address] [place] [address] Tel , Service support , <Dr. Nancy Alcocer MD - Last Filed: 09/21/23 22:37> [facility] Lab Data Labs: Laboratory Results - last 24 hr 09/21/23 09/21/23 20:25 20:40 WBC 15.8 H RBC 3.87 L Hgb 11.7 L Hct 37.5 MCV 96.9 MCH 30.2 MCHC 31.2 L RDW Std Deviation 45.1 H RDW Coeff of Zach 12.8 Plt Count 279 MPV 10.3 Immature Gran % (Auto) 0.500 Neut % (Auto) 75.8 H Lymph % (Auto) 13.1 L [place] % (Auto) 9.8 Eos % (Auto) 0.4 Baso % (Auto) 0.4 Absolute Neuts (auto) 11.9 H Absolute Lymphs (auto) 2.07 Nucleated RBC % 0 Differential Comment SCANNED Sodium 133 L Potassium 4.0 Chloride 104 Carbon Dioxide 21.0 Anion Gap 8 BUN 30 H Creatinine 1.21 H Estim Creat Clear Calc 41.38 Est GFR (MDRD) Af Amer 55 L Est GFR (MDRD) Non-Af 46 L BUN/Creatinine Ratio 24.8 H Glucose 129 H Lactic Acid 1.1 Calcium 9.6 Troponin I High Sens 30 Radiography Diagnostic Testing: Clinical Impression(s) from Imaging Studies Chest X-Ray 09/21/23 21:07 IMPRESSION: Mild bibasilar discoid atelectasis and subsegmental atelectasis in the right upper lobe Electronically Signed: Jan Pérez MD at 21:18 EST Reading Location ID and State: [facility] / [place] Tel , Service support , EKG Initial EKG: Attestation: I personally reviewed and interpreted this EKG as follows: Interpretation: Sinus Tachycardia (Sinus tach at 104 with bigeminy pattern. No obvious ischemia.) Treatment and Re-Evaluation :: Patient seen and evaluated with PUSHPA. I personally interviewed and examined the patient. I was involved in all aspects of patient's orders, interpretation of results, and treatment. Patient seen and evaluated with physicians assistant editor. Patient presented from local [facility] via EMS with confusion, fever, shortness of breath. She reportedly was exposed to COVID at her ECF. She is a history of COPD and is on chronic oxygen at 2 L. Patient sitting upright in bed. She is tachypneic and appears in mild distress. She will answer questions appropriately but did fall asleep easily without stimulation. Head and neck examination feels no external sign of trauma. Heart is slightly tachycardic and regular. Lung sounds are with rales bilaterally with some underlying wheezes. Abdomen is soft and nontender. Patient was placed on monitor worker. IV line initiated. Cultures obtained. Labwork obtained to evaluate for leukocytosis, anemia, and electrolyte derangement. Swab for COVID, influenza, RSV obtained. Patient was given breathing treatments along with IV Solu-Medrol. Following breathing treatments patient continues to be tachypneic with borderline saturations. She is placed on BiPAP at 40% FiO2. Patient is very adamant to me that she does not want to be intubated. CBC was a white count of 15.8 with 75% neutrophils. Hemoglobin is 11.7. Chemistry studies reveal sodium of 133 with a BUN of 30 and a creatinine 1.21. Glucose is normal at 129. Troponin is normal at 30. Lactic acid is 1.1. Portable chest x-ray per my interpretation reveals atelectasis but no obvious infiltrate. Radiology interpretation is reviewed and agrees. Swab for COVID, influenza, and RSV is negative. With patient having underlying COPD I will cover her with Rocephin and Zithromax. I will speak with hospitalist regarding admission. Discharge Plan Triage Chief Complaint: Shortness of Breath ED Midlevel Provider: Kianna Ruiz ED Provider: Nancy Alcocer Dx/Rx/DC Orders Prescriptions: No Action pravastatin 40 mg tablet 40 mg PO QHS duloxetine 60 mg capsule,delayed release(DR/EC) 60 mg PO DAILY lisinopril 10 mg tablet 10 mg PO DAILY metoprolol succinate 50 mg tablet extended release 24 hr 50 mg PO DAILY Breo Ellipta 100-25 mcg/dose blister with device 1 inh inhalation DAILY buspirone 5 mg tablet 5 mg PO TID buspirone 5 mg tablet 5 mg PO DAILY estradiol 0.01 % (0.1 mg/gram) cream 1 appful vaginal MOWEFR naloxone 4 mg/actuation spray,non-aerosol 1 spray intranasal Q2-3M PRN (Reason: OVERDOSE) Rx Instructions: spray 1 dose into ONE nostril; alternate nostrils w each dose until help arrives pomegranate fruit extract 250 mg capsule 500 mg PO DINNER cholecalciferol (vitamin D3) 100 mcg (4,000 unit) tablet 100 mcg PO DAILY albuterol sulfate 90 mcg/actuation HFA aerosol inhaler 2 inh inhalation Q4H PRN (Reason: SOB/WHEEZING) oxycodone-acetaminophen [Percocet] 5-325 mg tablet 1 tab PO TID PRN (Reason: pain) Centrum Silver 0.4 mg-300 mcg- 250 mcg tablet 1 tab PO DAILY polyethylene glycol 3350 17 gram powder in packet 17 g PO DAILY PRN (Reason: CONSTIPATION) methenamine hippurate 1 GM tablet 1 g PO BID Hold Instructions: Resume on 09/27/22. Rx Instructions: this can be used ongoing for prevention of uti. gabapentin 300 mg capsule 300 mg PO TID ondansetron HCl 4 mg tablet 4 mg PO Q8H PRN (Reason: Nausea) sennosides-docusate sodium 8.6-50 mg tablet 1 tab PO BID PRN (Reason: CONSTIPATION) albuterol sulfate 2.5 mg /3 mL (0.083 %) Solution For Nebulization 2.5 mg INHALATION Q4H PRN (Reason: SOB/WHEEZING) sertraline 100 mg tablet 200 mg PO DAILY acetaminophen 500 mg Tablet 500 mg PO Q6H PRN (Reason: Pain) guaifenesin [Siltussin SA] 100 mg/5 mL Liquid 200 mg PO Q6H PRN (Reason: COUGH/SORE THROAT) melatonin 5 mg Tablet 5 mg PO QHS Proheal 30 ml PO/SL BID ULTRAFLORA IMMUNE HEALTH 170 mg PO/SL DAILY furosemide [Lasix] 40 mg tablet 40 mg PO DAILY hydrocortisone [Preparation H Hydrocortisone] 1 % Cream 1 applic TOPICAL TID PRN (Reason: Hemorrhoids) levofloxacin 500 mg tablet 500 mg PO DAILY Qty: 5 0RF prednisone 20 mg tablet 40 mg PO DAILY 5 Days Qty: 10 0RF methadone 10 MG tablet 10 mg PO QHS 3 Days Qty: 3 0RF Biofreeze (menthol) 4 % gel 1 applic topical BID PRN (Reason: pain) Rx Instructions: apply to shoulder and lower back polyethylene glycol 3350 [ClearLax] 17 gram/dose powder 17 g PO DAILY PRN (Reason: constipation) Primary Care Provider: Wolf Berry Referrals: Wolf Berry MD [Primary Care Provider] -
[2023-09-21 20:35] LABS: Absolute Lymphocyte Count 2.07 X10^3/uL (0.83-4.51); Absolute Neutrophil Count 11.9 X10^3/uL (2.0-7.7); Basophil# 0.06 X10^3/uL; Basophil% 0.4 % (0-1); Eosinophil# 0.06 X10^3/uL; Eosinophils% 0.4 % (0-5); Hematocrit 37.5 % (37-47); Hemoglobin 11.7 g/dL (12.0-15.0); Lymphocyte # 2.07 X10^3/ul (0.83-4.51); Lymphocyte % 13.1 % (19-41); Mean Corp Hgb Conc 31.2 g/dL (32-36); Mean Corpuscular Hgb 30.2 pg (27.0-32.0); Mean Corpuscular Volume 96.9 fL (81-99); Mean Platelet Vol. 10.3 fl (6.2-12.0); Monocyte# 1.54 X10^3/uL; Monocyte% 9.8 % (0-10); NRBC Flagged by Analyzer 0 % (0-5); Neutrophil # 11.94 X10^3/uL (2.7-7.7); Neutrophil % 75.8 % (47-70); POSITIVE DIFFERENTIAL YES; Platelet Count 279 K/mm3 (150-450); RBC Distribution Width CV 12.8 % (11.6-14.6); RBC Distribution Width SD 45.1 fl (35.1-43.9); Red Blood Count 3.87 M/mm3 (4.2-5.4); White Blood Count 15.8 K/mm3 (4.4-11.0)
--- OUTSIDE RECORDS SUMMARY | 2023-09-21 20:36 | XMS RPT_ITS | CCD ---
Author Name Unknown Address [address] [place] [address] Organization [facility] Care Team Providers Care Loom Mechanic Name Role Phone Tanna Jones Unavailable Christopher Driver Unavailable Unavailable Lyly Mata LPN Unavailable [phone] Allergies Allergy Classification Reported Allergen(s) Allergy Type Date of Onset Reaction(s) Facility (3 sources) Nitrofurantoin Drug Allergy 1 Flu like symptoms [facility] Work Phone: Medications Completed/Discontinued Medications Medication Drug Class(es) Dates Sig (Normalized) Sig (Original) acetaminophen 325 mg oral tablet (6 sources) Start: 01-03-2011 TYLENOL 325 MG TABS as directed ACETAMINOPHEN [id number] Nahid Sotelo MD acetaminophen 325 mg / oxyCODONE hydrochloride 10 mg oral tablet (9 sources) Opioid Agonist Start: 06-04-2017 PERCOCET 10-325 MG TABS as directed OXYCODONE-ACETAMINOP HEN [id number] Tex CROCKETT Problems Active Problems Problem Classification Problem Date Documented Date Episodic/Chronic Chronic obstructive pulmonary disease and bronchiectasis (3 sources) Chronic obstructive lung disease; Translations: [Chronic obstructive pulmonary disease, unspecified] Onset: 01-03-2011 01-03-2011 Chronic Disorders of lipid metabolism (3 sources) Hyperlipidemia; Translations: [Hyperlipidemia, unspecified] Onset: 01-03-2011 01-03-2011 Chronic Essential hypertension (3 sources) Hypertensive disorder; Translations: [Essential (primary) hypertension] Onset: 01-03-2011 01-03-2011 Chronic Heart valve disorders (6 sources) Nonrheumatic tricuspid (valve) insufficiency; Translations: [Rheumatic tricuspid insufficiency] Onset: 10-28-2015 10-28-2015 Chronic Other nutritional; endocrine; and metabolic disorders (3 sources) Body mass index (BMI) 33.0-33.9, adult; Translations: [Body mass index (BMI) 33.0-33.9, adult] Onset: 04-11-2015 10-28-2015 Chronic Other nutritional; endocrine; and metabolic disorders (3 sources) Body mass index (BMI) 34.0-34.9, adult; Translations: [Body mass index (BMI) 34.0-34.9, adult] Onset: 04-11-2015 06-05-2017 Chronic Other nutritional; endocrine; and metabolic disorders (3 sources) Body mass index (BMI) 30.0-30.9, adult; Translations: [Body mass index (BMI) 30.0-30.9, adult] Onset: 04-11-2015 04-11-2015 Chronic Destiny-; endo-; and myocarditis; cardiomyopathy (except that caused by tuberculosis or sexually transmitted disease) (6 sources) Cardiomyopathy due to drug and external agent; Translations: [Cardiomyopathy associated with another disorder] Onset: 04-11-2015 04-11-2015 Chronic Unclassified (6 sources) Long-term drug therapy; Translations: [Other fdc (current) drug therapy] Onset: 10-13-2015 06-04-2017 Past or Other Problems Problem Classification Problem Date Documented Da te Episodic/Chronic Cardiac dysrhythmias (3 sources) Palpitations; Translations: [Palpitations] Onset: 06-05-2017 06-05-2017 Episodic Nonspecific chest pain (6 sources) Chest pain, unspecified; Translations: [Chest pain, unspecified] Onset: 01-03-2011 Resolved: 10-13-2015 01-03-2011 Episodic Other connective tissue disease (3 sources) Pain in calf; Translations: [Pain in right lower leg] Onset: 06-04-2017 06-04-2017 Episodic Other lower respiratory disease (3 sources) Dyspnea; Translations: [Shortness of breath] Onset: 01-03-2011 01-03-2011 Episodic Other upper respiratory infections (2 sources) Acute pharyngitis; Translations: [Acute pharyngitis, unspecified] Onset: 06-09-2017 06-09-2017 Episodic Residual codes; unclassified (3 sources) FH: Hypertension; Translations: [Family history of ischemic heart disease and other diseases of the circulatory system] 12-03-2014 Episodic Skin and subcutaneous tissue infections (3 sources) Cellulitis of leg, excluding foot; Translations: [Cellulitis of right lower limb] Onset: 06-04-2017 06-04-2017 Episodic Results Test Name Value Interpretation Reference Range Facil ity Vital Signs Date Time Vital Sign Value Performing Clinician Facility 06-09-2017 12:27-0400 Body Temperature 97 [degF] Christopher Driver [facility] Work Phone: 06-09-2017 12:27-0400 BP Diastolic 68 mm[Hg] [facility] Work Phone: 06-09-2017 12:27-0400 BP Systolic 130 mm[Hg] [facility] Work Phone: 06-09-2017 12:27-0400 Height 162.56 cm [employer] Work Phone: 06-09-2017 12:27-0400 Pulse (Heart Rate) 57 /min Christopher Driver [facility] Work Phone: 06-09-2017 12:27-0400 Respiratory Rate 20 /[facility] Work Phone: 06-05-2017 10:01-0400 BMI (Body Mass Index) 34.33 kg/m2 Tanna Jones [facility] Work Phone: 06-05-2017 10:01-0400 BP Diastolic 62 mm[Hg] [facility] Work Phone: 06-05-2017 10:01-0400 BP Systolic 130 mm[Hg] Tanna Jones [facility] Work Phone: 06-05-2017 10:01-0400 Height 162.56 cm Tanna [facility] Work Phone: 06-05-2017 10:01-0400 Pulse (Heart Rate) 56 /min [facility] Work Phone: 06-05-2017 10:01-0400 Respiratory Rate 20 /min [facility] Work Phone: 06-05-2017 10:01-0400 Weight 90.72 kg [facility] Work Phone: 06-04-2017 12:32-0400 Body Temperature 98.2 [degF] [facility] Work Phone: 10-28-2015 14:32-0500 BSA (Body Surface Area) 1.92 m2 [facility] Work Phone: 04-11-2015 14:55-0400 Heart rate 57 /min [facility] Work Phone: Encounters Encounter Date Encounter Type Care Provider Facility Start: 05-22-2022 ambulatory Facility: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 Jackie Pathak PA-C Work Phone: Start: 04-11-2015 End: 04-12-2015 Documentation of current medications Jackie Pathak PA-C Work Phone: Start: 04-11-2015 End: 04-11-2015 Ecg routine ecg w/least 12 lds w/i&r Jackie Pathak PA-C Work Phone: Start: 04-11-2015 End: 04-11-2015 Follow Up Appt 6 months Jackie Pathak PA-C Work Phone: Start: 12-03-2014 End: 12-06-2014 *BMP Nahid Sotelo MD Start: 12-03-2014 End: 12-06-2014 *CBC with Differential Nahid Sotelo MD Start: 12-03-2014 End: 12-04-2014 Documentation of current medications Nahid Sotelo MD Start: 12-03-2014 End: 03-30-2015 Echocardiography Nahid Sotelo MD Start: 12-03-2014 End: 12-03-2014 Follow Up Appt 4 months Марина Hidalgo Start: 12-03-2014 End: 12-03-2014 MMM Nahid Sotelo MD Start: 12-03-2014 End: 12-06-2014 Natriuretic peptide B [Mass/volume] in Blood Nahid Sotelo MD Start: 07-03-2013 End: 04-24-2016 *Hepatic Function Panel Марина Hidalog Start: 07-03-2013 End: 04-24-2016 Lipid 1996 panel - Serum or Plasma Nahid Sotelo MD Start: 05-21-2012 End: 07-09-2012 *Hepatic Function Panel Марина Hidalgo Start: 05-21-2012 End: 05-21-2012 Follow Up Appt 1 year Nahid Sotelo MD Start: 05-21-2012 End: 07-09-2012 Lipid 1996 panel - Serum or Plasma Nahid Sotelo MD Start: 01-03-2011 End: 10-13-2015 Preoperative cardiovascular examination PRE-OPERATIVE CARDIOVASCULAR EXAMINATION Tanna Jones Plan of Treatment Date Care Activity Detail Author Start: 12-05-2017 End: 12-05-2017 Appointment Appointment [facility] Work Phone: Start: 06-09-2017 End: 06-09-2017 [facility] Work Phone: Start: 06-05-2017 End: 06-05-2017 24 hour holter monitor 24 hour holter monitor [facility] Work Phone: Start: 06-05-2017 End: 06-05-[address] [employer]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[employer] SERVICER SUPER[employer]OR [facility] Work Phone: Start: 06-05-2017 End: 06-05-2017 Follow Up Appt 6 months Follow Up Appt 6 months [facility] Work Phone: Start: 06-05-2017 End: 06-05-2017 Appointment Appointment [facility] Work Phone: Start: 06-04-2017 End: 06-04-2017 Dup-scan xtr veins complete bilateral study Venous Doppler LE Right [facility] Work Phone: Start: 06-04-2017 End: 06-04-2017 Wound Clinic Referral Wound Clinic Referral [facility] Work Phone: Start: 12-20-2016 End: 05-22-2017 Follow Up Appt 1 year Follow Up Appt 1 year [facility] Work Phone: Start: 12-20-2016 End: 05-22-2017 MMM MMM [facility] Work Phone: Start: 04-30-2016 End: 04-30-[address] L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RE[employer] SERVICER SUPERVISOR [facility] Work Phone: Start: 04-30-2016 End: 04-30-2016 Follow Up Appt 6 months Follow Up Appt 6 months [facility] Work Phone: Start: 10-28-2015 End: 10-28-2015 Follow Up Appt 6 months Follow Up Appt 6 months [facility] Work Phone: Start: 10-28-2015 End: 10-28-2015 MMM MMM [facility] Work Phone: Start: 04-11-2015 End: 04-11-[address] LIGHT SERVICER SUPERVISOR [facility] Work Phone: Start: 04-11-2015 End: 04-11-2015 Ecg routine ecg w/least 12 lds w/i&r EKG (In office) [facility] Work Phone: Start: 04-11-2015 End: 04-11-2015 Follow Up Appt 6 months Follow Up Appt 6 months [facility] Work Phone: Start: 12-03-2014 End: 12-06-2014 *BMP *BMP [facility] Work Phone: Start: 12-03-2014 End: 12-06-2014 *CBC with Differential *CBC with Differential [facility] Work Phone: Start: 12-03-2014 End: 12-03-2014 Echocardiography Echocardiogram (complete) [facility] Work Phone: Start: 12-03-2014 End: 12-03-2014 Follow Up Appt 4 months Follow Up Appt 4 months [facility] Work Phone: Start: 12-03-2014 End: 12-03-2014 MMM MMM [facility] Work Phone: Start: 12-03-2014 End: 12-06-2014 Natriuretic peptide B mass conc (Bld) *Brain Natriuretic Peptide BNP [facility] Work Phone: Start: 07-03-2013 End: 04-24-2016 *Hepatic Function Panel *Hepatic Function Panel [facility] Work Phone: Start: 07-03-2013 End: 04-24-2016 Lipid 1996 panel *Lipid Profile [facility] Work Phone: Start: 05-21-2012 End: 07-09-2012 *Hepatic Function Panel *Hepatic Function Panel [facility] Work Phone: Start: 05-21-2012 End: 05-21-2012 Follow Up Appt 1 year Follow Up Appt 1 year [facility] Work Phone: Start: 05-21-2012 End: 07-09-2012 Lipid 1996 panel *Lipid Profile [facility] Work Phone: Clinical Note 10-25-2020 Note Date & Type Note Facility 10-25-2020 Note Patient Outreach ([facility]) PATRICIA HAWLEY ([id number]) 1945 F Date Time Provider Department 10/25/20 DANIEL CROSS During your visit today, we recorded the following information about you: Allergies As of Date: 10/25/2020 Noted Allergy Reaction AMOXICILLIN 05/20/2020 16 - Unknown CLAVULANIC ACID 05/20/2020 16 - Unknown MACRODANTIN (NITROFURANTOIN) 12/22/2009 8 - GI Upset MORPHINE SULFATE 12/22/2009 8 - GI Upset SULFAMETHOXAZOLE 05/20/2020 16 - Unknown TRIMETHOPRIM 05/20/2020 16 - Unknown Date Reviewed: 06/01/2020 Reviewed by: Olivia Negro - Fully Assessed Order(s):SARS-COVID VACCINE 1ST DOSE APPT [[id number]] Order #: [id number] FUTURE Prescriptions as of 10/25/2020 Sig: PROBIOTIC ORAL Take 1 tablet by mouth once d* BISACODYL 10 MG RECTAL SUPPOS* 10 mg by RECTAL route once da* DULOXETINE 60 MG CAPSULE,TONI* Take 60 mg by mouth once larisa* MINERAL OIL RECTAL 118 mL by RECTAL route as nee* LORAZEPAM 0.5 MG TABLET Take 0.5 mg by mouth twice da* MAGNESIUM HYDROXIDE 400 MG/5 * Take 30 mL by mouth once larisa* POLYETHYLENE GLYCOL 3350 17 G* Take 17 g by mouth once daily. OXYCODONE-ACETAMINOPHEN 5 MG-* Take 1 tablet by mouth every * POMEGRANATE ORAL Take 2 capsules by mouth once* SENNOSIDES 8.6 MG-DOCUSATE SO* Take 1 tablet by mouth twice * DULOXETINE 30 MG CAPSULE,TONI* Take 1 capsule by mouth once * Patient not taking: Reported on 06/01/2020 ALBUTEROL SULFATE 2.5 MG/3 ML* Use 3 mL via nebulizer every * HYDRALAZINE 25 MG TABLET Take 1 tablet by mouth every * NALOXONE 4 MG/ACTUATION NASAL* Use 1 spray in one nostril as* NALOXONE 4 MG/ACTUATION NASAL* Use 1 spray in one nostril as* Patient not taking: Reported on 06/01/2020 FERROUS SULFATE 325 MG (65 MG* Take 325 mg by mouth three ti* LISINOPRIL ORAL Take 10 mg by mouth once larisa* METHENAMINE HIPPURATE 1 GRAM * Take 1 g by mouth twice daily* SERTRALINE 100 MG TABLET Take 100 mg by mouth twice da* CITALOPRAM 20 MG TABLET Take 20 mg by mouth twice joan* GABAPENTIN 300 MG TABLET Take 300 mg by mouth three ti* PRAVASTATIN 40 MG TABLET Take 40 mg by mouth once larisa* WKSPAEFMGTVC-IOKAIAFT-ORPQXT * Take 1 tablet by mouth once d* TOPROL XL 50 MG TABLET,EXTEND* Take 50 mg by mouth once larisa* Problem List As Of Date 10/25/2020 Noted Resolved Fracture of Cervical Vertebra, C2 [S12.100A] 02/06/2010 Cervical Spinal Stenosis [M48.02] 02/06/2010 Myelopathy [G95.9] 02/06/2010 S/P Cervical Spinal Fusion [Z98.1] 02/06/2010 Shoulder Pain [M25.519] 02/06/2010 Osteoarthritis, knee [M17.10] 06/20/2010 Neck pain [M54.2] 03/16/2011 Cervicalgia [M54.2] 06/20/2011 UTI (urinary tract infection) [N39.0] 04/14/2020 Obesity, Class III, BMI >= 40 [E66.01] 04/20/2020 Discitis of thoracolumbar region [M46.45] 04/23/2020 Chronic hypoxemic respiratory failure (HCC) [J9*04/23/2020 CKD (chronic kidney disease), stage III (HCC) [*04/23/2020 Pyelonephritis due to Escherichia coli [N12, B9*04/23/2020 06/01/2020 Letter Text Encounter Status:Closed by EPIC, PRODUSER on 10/28/[address] [facility] Summary Purpose Family History No Family History Records FoundNo Family History Records FoundNo Family History Records FoundNo Family History Records FoundNo Family History Records FoundNo Family History Records Found Advance Directives No Advanced Directives Records FoundNo Advanced Directives Records FoundNo Advanced Directives Records FoundNo Advanced Directives Records FoundNo Advanced Directives Records FoundNo Advanced Directives Records Found Hospital Course Note HNO ID: [id number] Author: Марина Renee Service: Hospital Medicine Author Type: Physician Type: Discharge Summary Filed: 04/24/2020 12:11 PM Note Text: DISCHARGE SUMMARY ADMISSION DATE: 04/13/2020 DISCHARGE DATE: April 24, 2020 Attending Physician: Loulou Renee Reason for Hospitalization: Discitis Hospital Course: This is a 75 year old female who was admitted for fever and found to have UTI with pyelonephritis secondary to Escherichia coli finished antibiotic for that. ?Also found to have T11?T12-L1 discitis for which required PICC line placement, bone marrow biopsy was done was nonconclusive, plan was for 6 weeks of IV antibiotic. ?Infection disease, seen by neurosurgery was no plan for surgical intervention. ?Had acute renal insufficiency from dehydration with low blood pressure and that was corrected patient has a baseline chronic kidney disease stage III, her COPD and chronic hypoxic respiratory failure continued to be stable, seen by pain management medication were adjusted (more content not included)... Note HNO ID: [id number] Author: Piper Luu Service: Interventional Radiology Author Type: Physician Type: Brief Op Note Filed: 04/19/2020 10:44 AM Note Text: BRIEF OPERATIVE / PROCEDURE NOTE LOG ID: [id number] SURGERY/PROCEDURE DATE: 04/19/2020 INCISION/PROCEDURE START TIME: INCISION CLOSE/PROCEDURE END TIME: SURGEON(S)/PROCEDURALIST(S) AND FACILITIES ENGINEERING MANAGER(S): Surgeon(s) and Role: * Maria Eugenia Cardenas Russyoana Luu - Marybel No Additional Staff SURGERY/PROCEDURE(S): Vertebral aspiration and biopsy ANESTHESIA: Procedural Sedation FINDINGS: Aspiration of 15 cc of fluid. Minimal to no tissue was obtained through the biopsy needle, however, sent to pathology in formalin. ESTIMATED BLOOD LOSS: Minimal SPECIMENS: Sent to pathology and microbiology COMPLICATIONS: None PRE-OP/PRE-PROCEDURE DIAGNOSIS: Vertebral abscess POST-OP/POST-PROCEDURE DIAGNOSIS: Same as Preop SIGNATURE: Maria Eugenia Luu PATIENT NAME: Patricia Hawley DATE: April 19, 2020 TIME: 10:41 AM PAGER/CONTACT #: Procedure Findings Note HNO ID: [id number] Author: Piper jose Luu Service: Interventional Radiology Author Type: Physician Type: Brief Op Note Filed: 04/19/2020 10:44 AM Note Text: BRIEF OPERATIVE / PROCEDURE NOTE LOG ID: [id number] SURGERY/PROCEDURE DATE: 04/19/2020 INCISION/PROCEDURE START TIME: INCISION CLOSE/PROCEDURE END TIME: SURGEON(S)/PROCEDURALIST(S) AND FACILITIES ENGINEERING MANAGER(S): Surgeon(s) and Role: * Maria Eugenia Cardenas Russyoana Luu - Marybel No Additional Staff SURGERY/PROCEDURE(S): Vertebral aspiration and biopsy ANESTHESIA: Procedural Sedation FINDINGS: Aspiration of 15 cc of fluid. Minimal to no tissue was obtained through the biopsy needle, however, sent to pathology in formalin. ESTIMATED BLOOD LOSS: Minimal SPECIMENS: Sent to pathology and microbiology COMPLICATIONS: None PRE-OP/PRE-PROCEDURE DIAGNOSIS: Vertebral abscess POST-OP/POST-PROCEDURE DIAGNOSIS: Same as Preop SIGNATURE: Maria Eugenia Luu PATIENT NAME: Patricia Hawley DATE: April 19, 2020 TIME: 10:41 AM PAGER/CONTACT #: Additional Source Comments INFORMATION SOURCE (unrecogn ized section and content) DATE CREATED AUTHOR AUTHOR'S ORGANIZ ATION 05/31/2020 [facility] DATE CREATED AUTHOR AUTHOR'S ORGANIZ ATION 06/14/2020 [facility] DATE CREATED AUTHOR AUTHOR'S ORGANIZ ATION 06/30/2020 [facility] DATE CREATED AUTHOR AUTHOR'S ORGANIZ ATION 10/10/[address] [facility] DATE CREATED AUTHOR AUTHOR'S ORGANIZ ATION 06/03/2022 [facility] FOR RECORDS PERTAINING TO PATIENTS WHO ARE OR HAVE BEEN ENROLLED IN A CHEMICAL DEPENDENCY/SUBSTANCEABUSE PROGRAM, SOME INFORMATION MAY BE OMITTED. This clinical summary was aggregated from multiple sources. Caution should be exercised in using it in the provision of clinical care. This summary normalizes information from multiple sources, and as a consequence, information in this document may materially change the coding, format and clinical context of patient data. In addition, data may be omitted in some cases. CLINICAL DECISIONS SHOULD BE BASED ON THE PRIMARY CLINICAL RECORDS. [facility] [employer] provides no warranty or guarantee of the accuracy or completeness of information in this document.
[2023-09-21] MEDS: Ondansetron 4 MG/2 ML Vial IV (20:43)
[2023-09-21] MEDS: Acetaminophen 325 MG Tablet 650 MG PO (20:43)
[2023-09-21 20:44] LABS: Differential Comment SCANNED; Differential Indicated SCAN CRITERIA MET
[2023-09-21 20:55] LABS: Anion Gap 8 (5-15); BUN 30 mg/dL (7-18); BUN/Creat Ratio 24.8 RATIO (10-20); Calcium,Total 9.6 mg/dL (8.5-10.1); Chloride 104 mmol/L (98-107); Creatinine, Serum 1.21 mg/dL (0.55-1.02); EST Glomerular Filtration Rate 46 mL/min (>60); Est Glom Filt Rate - Afr Amer 55 mL/min (>60); Estimated Creatinine Clearance 41.38 ml/min; Glucose 129 mg/dL (74-106); Sodium Level 133 mmol/L (136-145); Troponin-I HS 30 pg/mL (3.0-54.0)
--- NOTE | 2023-09-21 21:07 | RAD_ITS ---
STUDY: X-RAY CHEST REASON FOR EXAM: Female, 78 years old. sob TECHNIQUE: AP portable COMPARISON: September 20, 2022 FINDINGS: Minor discoid atelectasis or scarring in both lower lobes. Minor subsegmental atelectasis in the right upper lobe There is no demonstrated pleural abnormality. Normal size heart. Normal mediastinum and garrett. Normal visualized pulmonary arteries. Mildly calcified aortic arch and descending thoracic aorta. Normal visualized thoracic spine. Normal visualized ribs, clavicles, and shoulders. There is no demonstrated abnormality of the visualized soft tissue structures of the upper abdomen. Large intrathoracic hiatal hernia noted RAD/Chest 1 View (Portable) IMPRESSION: Mild bibasilar discoid atelectasis and subsegmental atelectasis in the right upper lobe Electronically Signed: Jan Pérez MD at 21:18 EST ,
[2023-09-21 21:16] LABS: Lactic Acid 1.1 mmol/L (0.4-1.9)
[2023-09-21] MEDS: MethylPREDNISolone 125 MG/2 ML Vial IV (21:35)
[2023-09-21] MEDS: Ceftriaxone 1 GM/50 ML BAG IV (22:52)
--- NOTE | 2023-09-21 23:26 | PCM.HP.STD ---
[facility] - General General Date of Admission: 09/21/23 Date of Service: 09/21/23 Chief Complaint: Shortness of breath and fever with flu-like symptoms. [facility] Narrative CAMILLA DAMICO, is a 78 F static with a past medical history of essential hypertension, hyperlipidemia, morbid obesity; with BMI of 41.4 this admission, history of tobacco abuse; with subsequent COPD, chronic hypoxic respiratory failure on 2 L NC continuously at baseline, peripheral vascular disease; with history of non-pressure chronic ulcer of the right and left lower extremities, chronic venous insufficiency of the right lower extremity, history of right foot drop, history of MRSA, history of vertebral osteomyelitis with T12 destruction (2019), history of nonischemic cardiomyopathy, history of hip replacement, osteoarthritis and degenerative disc disease; with chronic back pain on methadone 10 mg p.o. nightly and Percocet 3 times daily as needed (with listed allergy to morphine), hemorrhoids, depression with anxiety and DNR-CCA CODE STATUS; with no intubation who presents to [facility] ER complaining of shortness of breath and fever with chills and flu-like symptoms. Ms. Damico reports her symptoms began approximately 1 week prior to admission with a gradual onset of malaise, fatigue, decreased appetite with fever and shortness of breath with some other residents at the [facility] testing positive for COVID-19. She also admits to nausea and vomiting with bilious emesis and a cough that is nonproductive. In the ER she was noted to have a fever of 100.4 ?F present on admission along with leukocytosis of 15.8 present on admission with clinical evidence of acute exacerbation of COPD complicated by acute hypoxic respiratory failure requiring BiPAP with a chest x-ray that reveals atelectasis but no obvious infiltrate and a negative viral respiratory panel and a critically elevated d-dimer of 5.02 present on admission and she was then admitted to the PCU for ongoing care for stay that is expected to be greater than 48 hours. [facility] Medical History Abnormal CT of thoracic spine Abnormal spinal diagnostic imaging Anxiety Chronic back pain Chronic obstructive pulmonary disease COPD (chronic obstructive pulmonary disease) DDD (degenerative disc disease) Depression Essential (primary) hypertension Fatigue Foot drop, right Hemorrhoids History of COPD History of hypertension Hyperlipidemia Malnutrition MRSA (methicillin resistant staph aureus) culture positive Non-ischemic cardiomyopathy Non-pressure chronic ulcer of right lower leg with fat layer exposed PVD (peripheral vascular disease) Soft tissue mass Stage III pressure ulcer of right ankle Venous insufficiency of right leg Venous ulcer of left lower extremity without varicose veins Vertebral osteomyelitis Vitamin D deficiency Home Medications pravastatin 40 mg tablet 40 mg PO QHS CHOLESTEROL 01/17/18 [History Last Taken 09/19/22] methenamine hippurate 1 gram tablet 1 g PO BID URINARY 04/12/20 [History Last Taken 09/20/22] duloxetine 60 mg capsule,delayed release 60 mg PO DAILY 06/07/20 [History Last Taken 09/20/22] lisinopril 10 mg tablet 10 mg PO DAILY BP 06/07/20 [History Last Taken 09/20/22] metoprolol succinate 50 mg tablet,extended release 24 hr 50 mg PO DAILY HEART 06/07/20 [History Last Taken 09/20/22] fluticasone furoate 100 mcg-vilanterol 25 mcg/dose inhalation powder (Breo Ellipta) 1 inh inhalation DAILY 08/03/21 [History Last Taken 09/20/22] gabapentin 300 mg capsule 300 mg PO TID NERVE 08/03/21 [History Last Taken 09/20/22] buspirone 5 mg tablet 5 mg PO DAILY DEPRESSION 02/13/22 [History Last Taken 09/20/22] cholecalciferol (vitamin D3) 100 mcg (4,000 unit) tablet 100 mcg PO DAILY SUPPLEMENT 02/13/22 [History Last Taken 09/20/22] estradiol 0.01% (0.1 mg/gram) vaginal cream 1 appful vaginal MOWEFR UTI 02/13/22 [History Last Taken 09/19/22] naloxone 4 mg/actuation nasal spray 1 spray intranasal Q2-3M PRN OVERDOSE 02/13/22 [History Last Taken Unknown] ondansetron HCl 4 mg tablet 4 mg PO Q8H PRN Nausea 02/13/22 [History Last Taken Unknown] polyethylene glycol 3350 17 gram oral powder packet 17 g PO DAILY PRN CONSTIPATION 02/13/22 [History Last Taken Unknown] pomegranate fruit extract 250 mg capsule 500 mg PO DINNER SUPPLEMENT 02/13/22 [History Last Taken 09/19/22] sennosides 8.6 mg-docusate sodium 50 mg tablet 1 tab PO BID PRN CONSTIPATION 02/13/22 [History Last Taken 09/20/22] qhfzldrw-yco-wamta acid 0.4 mg-lycopene 300 mcg-lutein 250 mcg tablet (Centrum Silver) 1 tab PO DAILY 06/14/22 [History Last Taken 09/20/22] albuterol sulfate 90 mcg/actuation aerosol inhaler 2 inh inhalation Q4H PRN SOB/WHEEZING 08/15/22 [History Last Taken Unknown] Proheal 30 ml PO/SL BID 09/20/22 [History Last Taken 09/20/22] ULTRAFLORA IMMUNE HEALTH 170 mg PO/SL DAILY GUT HEALTH 09/20/22 [History Last Taken 09/19/22] acetaminophen 500 mg tablet 500 mg PO Q6H PRN Pain 09/20/22 [History Last Taken 09/17/22] albuterol sulfate 2.5 mg/3 mL (0.083 %) solution for nebulization 2.5 mg inhalation Q4H PRN SOB/WHEEZING 09/20/22 [History Last Taken 09/20/22] furosemide 40 mg tablet (Lasix) 40 mg PO DAILY EDEMA/SOB 09/20/22 [History Last Taken Unknown] guaifenesin 100 mg/5 mL oral liquid (Siltussin SA) 200 mg PO Q6H PRN COUGH/SORE THROAT 09/20/22 [History Last Taken 09/20/22] melatonin 5 mg tablet 5 mg PO QHS SLEEP 09/20/22 [History Last Taken 09/19/22] sertraline 100 mg tablet 200 mg PO DAILY DEPRESSION 09/20/22 [History Last Taken 09/20/22] hydrocortisone 1 % topical cream (Preparation H Hydrocortisone) 1 applic topical TID PRN Hemorrhoids 09/21/22 [History Last Taken Unknown] levofloxacin 500 mg tablet 500 mg PO DAILY #5 tabs 09/22/22 [Rx Last Taken Unknown] methadone 10 mg tablet 10 mg PO QHS pain 3 days #3 tabs 09/22/22 [Rx Last Taken Unknown] prednisone 20 mg tablet 40 mg (2 x 20 mg) PO DAILY 5 days #10 tabs 09/22/22 [Rx Last Taken Unknown] buspirone 5 mg tablet 5 mg PO TID 03/14/23 [History Last Taken Unknown] oxycodone-acetaminophen 5 mg-325 mg tablet (Percocet) 1 tab PO TID PRN pain 03/14/23 [History Last Taken Unknown] menthol 4 % topical gel (Biofreeze (menthol)) 1 applic topical BID PRN pain 09/21/23 [History Last Taken Unknown] polyethylene glycol 3350 17 gram/dose oral powder (ClearLax) 17 g PO DAILY PRN constipation 09/21/23 [History Last Taken Unknown] Allergy/AdvReac Type Severity Reaction Status Date / Time morphine Allergy Unknown unknown Verified 09/21/23 19:44 amoxicillin [From Augmentin] AdvReac Nausea/Vom/ Verified 09/21/23 19:44 Diarrhea clavulanic acid AdvReac Nausea/Vom/ Verified 09/21/23 19:44 [From Augmentin] Diarrhea nitrofurantoin AdvReac Vomiting Verified 09/21/23 19:44 macrocrystalline [From Macrodantin] sulfamethoxazole AdvReac Nausea/Vom/ Verified 09/21/23 19:44 [From Bactrim] Diarrhea trimethoprim [From Bactrim] AdvReac Nausea/Vom/ Verified 09/21/23 19:44 Diarrhea Family History Father Hypertension Mother Diabetes Hypertension Brother Diabetes Brother Cancer Sister Hypertension Surgical History History of hip replacement History of hysterectomy History of incisional hernia repair Hx of repair of rotator cuff Social History Smoking Status: Never smoker alcohol intake: never substance use type: does not use caffeine: Yes Type: coffee Number of servings: 2 what type of physical activity do you participate in: none additional social history: Lives at [facility] Narrative Review of systems: General: Patient admits to fevers, chills and malaise. HENT: Denies headache, denies stuffy nose, denies sore throat EYES: Denies changes in vision or discharge from eyes. Resp: Patient admits to dyspnea on exertion that progressed to shortness of breath at rest with nonproductive cough. Cardiac: Patient admits to chest pain that is worse with deep breathing and cough but denies palpitations. GI: Denies abdominal pain, denies changes in bowel, had some nausea and vomiting with bilious emesis. : Denies changes in urination Extremity: Patient has chronic venous stasis in both lower extremities. Musculoskeletal: Feels somewhat generally weak and unwell but denies arthralgias or myalgias. Neuro: Patient admits to generalized weakness but denies any numbness/tingling, headache or focal neurologic deficits. Heme: Denies any bleeding or bruising Skin: Denies rashes Psychiatric: No complaints voiced related to uncontrolled depression or anxiety. Endocrine: No polyuria, polyphagia or polydipsia. The rest of the 14 point ROS was negative except for positives in HPI. Vital Signs Vital Signs Vital Signs: 09/21/23 19:44 09/21/23 19:50 09/21/23 20:12 Temperature 100.4 F H 100.4 F H Temperature Source Temporal Temporal Pulse Rate 102 H 103 H 106 H Respiratory Rate 27 H 23 H 26 H Respiratory Effort Respiratory Pattern Tachypnea Blood Pressure 180/92 H 153/95 H Blood Pressure Mean 121 114 Pulse Ox 96 97 Oxygen Delivery Method Nasal Cannula Nasal Cannula Oxygen Flow Rate (L/min) 2 2 Fraction of Inspired Oxygen (FIO2) 09/21/23 20:12 09/21/23 20:50 09/21/23 20:50 Temperature 99.4 F H Temperature Source Temporal Pulse Rate 108 H Respiratory Rate 20 H Respiratory Effort Respiratory Pattern Blood Pressure 141/98 H Blood Pressure Mean 112 Pulse Ox 94 95 Oxygen Delivery Method Nasal Cannula Bi-pap Bi-pap Oxygen Flow Rate (L/min) 2 Fraction of Inspired Oxygen (FIO2) 40 40 09/21/23 20:53 09/21/23 20:50 09/21/23 21:00 Temperature 99.4 F H Temperature Source Temporal Pulse Rate 106 H 102 H Respiratory Rate 35 H 97 H Respiratory Effort Short of Breath Respiratory Pattern Tachypnea Blood Pressure 94/63 Blood Pressure Mean 73 Pulse Ox 96 24 Oxygen Delivery Method Bi-pap Bi-pap Oxygen Flow Rate (L/min) Fraction of Inspired Oxygen (FIO2) 40 35 40 09/21/23 22:00 09/21/23 22:30 09/21/23 22:38 Temperature 99.2 F H Temperature Source Axillary Pulse Rate 102 H 98 Respiratory Rate 17 18 Respiratory Effort Respiratory Pattern Normal Blood Pressure 105/83 H 137/108 H Blood Pressure Mean 90 117 Pulse Ox 92 93 93 Oxygen Delivery Method Bi-pap Bi-pap Oxygen Flow Rate (L/min) Fraction of Inspired Oxygen (FIO2) 40 35 40 Weight Weight: 218 lb 14.704 oz Body Mass Index (BMI) 41.3 Physical Exam Const alert and oriented x3 Constitutional Narrative: Patient appears comfortable on BiPAP. General Appearance: cooperative HEENT normocephalic, head/scalp atraumatic, hearing grossly normal bilaterally, moist oral mucous membranes and oropharynx normal Eyes PERRL, EOMs intact bilaterally and conjunctivae normal Neck no lymphadenopathy and supple Resp Resp Narrative: Decreased breath sounds throughout with mildly increased work of breathing and scattered wheezing. Auscultation: wheezes Cardio regular rate and regular rhythm GI normal to inspection, nondistended, normoactive bowel sounds, soft to palpation, non-tender and non-distended GI Narrative: Morbidly obese. Extremity Extremity Narrative: Patient has chronic venous stasis changes in both lower extremities. Skin Skin Narrative: Patient has no evidence of rash or abscess at this time. Neuro oriented x3, CN's II-XII intact bilaterally, moves all extremities and no focal motor deficits Sensorium / Orientation: awake, alert, oriented to person, oriented to place and oriented to time Speech: speech normal Motor Exam: strength 5/5 throughout Psych Mood & Affect: anxious Results Medical Records Data Attestation: I reviewed the patient's medical records Lab / Micro Data Attestation: I reviewed the patient's lab results. 09/21/23 20:25 09/21/23 20:25 Labs: Laboratory Results - last 24 hr 09/21/23 20:25: WBC 15.8 H, RBC 3.87 L, Hgb 11.7 L, Hct 37.5, MCV 96.9, MCH 30.2, MCHC 31.2 L, RDW Std Deviation 45.1 H, RDW Coeff of Zach 12.8, Plt Count 279, MPV 10.3, Immature Gran % (Auto) 0.500, Neut % (Auto) 75.8 H, Lymph % (Auto) 13.1 L, Hanson % (Auto) 9.8, Eos % (Auto) 0.4, Baso % (Auto) 0.4, Absolute Neuts (auto) 11.9 H, Absolute Lymphs (auto) 2.07, Nucleated RBC % 0, Differential Comment SCANNED, Sodium 133 L, Potassium 4.0, Chloride 104, Carbon Dioxide 21.0, Anion Gap 8, BUN 30 H, Creatinine 1.21 H, Estim Creat Clear Calc 41.38, Est GFR (MDRD) Af Amer 55 L, Est GFR (MDRD) Non-Af 46 L, BUN/Creatinine Ratio 24.8 H, Glucose 129 H, Calcium 9.6, Troponin I High Sens 30 09/21/23 20:40: Lactic Acid 1.1 Micro: Microbiology 09/21/23 20:50 Mucosa - Nasopharyngeal SARS-CoV-2, Influenza & RSV (PCR) - Final Imagaing Radiology Impression Chest X-Ray 09/21/23 21:07 IMPRESSION: Mild bibasilar discoid atelectasis and subsegmental atelectasis in the right upper lobe Electronically Signed: Jan Pérez MD at 21:18 EST Reading Location ID and State: [facility] / [place] Tel , Service support , Assessment & Plan Assessment/Plan (1) Multifocal pneumonia: (2) COPD exacerbation: (3) Acute hypoxic respiratory failure: (4) D-dimer, elevated: PLAN: Plan 1. Multifocal Pneumonia with Acute exacerbation of COPD in the setting of DNR-CCA CODE STATUS; with no intubation - Admit to PCU. Continue broad-spectrum antibiotics, IV Solumedrol and nebulizers. Aim to keep oxygen saturations from 88-92%. 2. [id number]-[id number] hypoxic respiratory failure requiring BiPAP due to #1 with critically elevated d dimer of 5.02 present on admission - Wean BiPAP as tolerated. Check LE dopplers and give full-dose Lovenox until DVT definitively ruled out on imaging. 3. Acute viral-type syndrome preceding admission with leukocytosis of 15.8 present on admission but with negative viral respiratory panel complicating #1 & #2 - Continue supportive care and monitor for improvement. 4. Essential hypertension - Continue home medications plus as previous give prn IV hydralazine for systolic blood pressure > 160 mm Hg. 5. Hyperlipidemia - Resume statin. 6. Morbid obesity; with BMI of 41.4 this admission - Weight loss will be recommended. Check TSH. 7. Peripheral vascular disease; with history of non-pressure chronic ulcer of the right and left lower extremities and chronic venous insufficiency of the right lower extremity - Stable. 8. History of right foot drop - Noted. 9. History of MRSA - Place on contact precautions. 10. History of vertebral osteomyelitis with T12 destruction (2019) with osteoarthritis and degenerative disc disease; with chronic back pain on methadone 10 mg p.o. nightly and Percocet 3 times daily as needed (with listed allergy to morphine) - Continue home pain regimen as previous to avoid withdrawal. 11. History of nonischemic cardiomyopathy - Noted. 12. History of hip replacement - Noted. 13. Hemorrhoids - Stable. Continue prn Preparation H. 14. Depression with anxiety - Resume home regimen as previous. 15. DVT prophylaxis - Patient on full-dose Lovenox with LE dopplers pending in the AM due to critically elevated d dimer of 5.02 present on admission. Total time: Approximately 55 minutes. Charges/Coding Visit Charges Inpatient E&M: 85320 Init Hosp L2
--- OUTSIDE RECORDS SUMMARY | 2023-09-21 23:53 | XMS RPT_ITS | CCD ---
Author Name Unknown Address [address] [place] [address] Organization [facility] Care Team Providers Care Web Services Manager Name Role Phone Tanna Jones Unavailable Christopher Driver Unavailable Unavailable Lyly Mata LPN Unavailable Allergies Allergy Classification Reported Allergen(s) Allergy Type Date of Onset Reaction(s) Facility (3 sources) Nitrofurantoin Drug Allergy 1 Flu like symptoms [facility] Work Phone: Medications Completed/Discontinued Medications Medication Drug Class(es) Dates Sig (Normalized) Sig (Original) acetaminophen 325 mg oral tablet (6 sources) Start: 01-03-2011 TYLENOL 325 MG TABS as directed ACETAMINOPHEN [id number] Nahid Sotelo MD acetaminophen 325 mg / oxyCODONE hydrochloride 10 mg oral tablet (9 sources) Opioid Agonist Start: 06-04-2017 PERCOCET 10-325 MG TABS as directed OXYCODONE-ACETAMINOP HEN [id number] [place] CROCKETT Problems Active Problems Problem Classification [...] (6 sources) Long-term drug therapy; Translations: [Other penitentiary (current) drug therapy] Onset: 10-13-2015 06-04-2017 Past [...] 12:27-0400 Body Temperature 97 [degF] Christopher Driver [facility] Work Phone: 06-09-2017 12:27-0400 BP Diastolic 68 mm[Hg] [employer] Work Phone: 06-09-2017 12:27-0400 BP Systolic 130 mm[Hg] [employer] Work Phone: 06-09-2017 12:27-0400 Height 162.56 cm [employer] Work Phone: 06-09-2017 12:27-0400 Pulse (Heart Rate) 57 /min Christopher Driver [employer] Work Phone: 06-09-2017 12:27-0400 Respiratory [facility] 20 /[facility] [place] [facility] Work Phone: 06-05-2017 10:01-0400 BMI (Body Mass Index) 34.33 kg/m2 Tanna Jones [facility] Work Phone: 06-05-2017 10:01-0400 BP Diastolic 62 mm[Hg] [facility] Work Phone: 06-05-2017 10:01-0400 BP Systolic 130 mm[Hg] Tanna Jones [facility] Work Phone: 06-05-2017 10:01-0400 [...] Type Care Provider Facility Start: 05-22-2022 ambulatory Facility:[facility] Procedures Date Procedure Procedure Detail Performing Clinician [...] SAEED Sotelo MD Start: 04-11-2015 End: 04-11-2015 [employer] Jackie Pathak PA-C Work Phone: Start: 04-11-2015 [...] 07-03-2013 End: 04-24-2016 *Hepatic Function Panel Марина Hidalgo Start: 07-03-2013 End: 04-24-2016 Lipid 1996 panel [...] Phone: Start: 06-09-2017 End: 06-09-2017 Appointment App[facility]ment [facility] Work Phone: Start: 06-05-2017 End: 06-05-2017 24 hour holter monitor 24 hour holter monitor [facility] Work Phone: Start: 06-05-2017 End: 06-05-2017 PRIVATE BANKER PR[employer]ER [facility] Work Phone: Start: 06-05-2017 End: 06-05-2017 Follow Up Appt 6 months Follow Up Appt 6 months [facility] Work Phone: Start: 06-05-2017 [...] Group Work Phone: Start: 04-30-2016 End: 04-30-2016 PRIVATE B[employer]ER PR[employer]ER [facility] Work Phone: Start: 04-30-2016 End: 04-30-2016 Follow Up Appt 6 months Follow Up Appt 6 months [facility] Work Phone: Start: 10-28-2015 End: 10-28-2015 Follow Up Appt 6 months Follow Up Appt 6 months [facility] Work Phone: Start: 10-28-2015 End: 10-28-2015 MMM MMM [facility] Work Phone: Start: 04-11-2015 End: 04-11-2015 PRIVATE BANKER [facility] Work Phone: Start: 04-11-2015 End: 04-11-2015 Ecg routine ecg w/least 12 lds w/i&r EKG (In office) [facility] Work Phone: Start: 04-11-2015 End: 04-11-2015 Follow Up Appt 6 months Follow Up Appt 6 months [facility] Work Phone: Start: 12-03-2014 End: 12-06-2014 *BMP *BMP [facility] Work Phone: Start: 12-03-2014 End: 12-06-2014 *CBC with Differential *CBC with Differential [facility] Work Phone: Start: 12-03-2014 End: 12-03-2014 Echocardiography Echocardiogram (complete) [facility] Work Phone: Start: 12-03-2014 End: 12-03-2014 Follow Up Appt 4 months Follow Up Appt 4 months [facility] Work Phone: Start: 12-03-2014 End: 12-03-2014 MMM MMM [facility] Work Phone: Start: 12-03-2014 End: 12-06-2014 Natriuretic peptide B mass conc (Bld) *Brain Natriuretic Peptide BNP [facility] Work Phone: Start: 07-03-2013 End: 04-24-2016 *Hepatic Function Panel *Hepatic Function Panel [facility] Work Phone: Start: 07-03-2013 End: 04-24-2016 Lipid [...] Note Patient Outreach ([place] [facility]) PATRICIA HAWLEY ([id number]) 1945 F Date Time Provider Department 10/25/20 [...] Fully Assessed Order(s):SARS-COVID VACCINE 1ST DOSE APPT [[id number]] Order #: [id number] FUTURE Prescriptions as of 10/25/2020 Sig: PROBIOTIC [...] Take 40 mg by mouth once larisa* [id number] * Take 1 tablet by mouth once [...] Encounter Status:Closed by EPIC, PRODUSER on 10/28/20 [facility] Summary Purpose Family History No Family History Records FoundNo Family History Records FoundNo Family History Records FoundNo Family History Records FoundNo Family History Records FoundNo Family History Records Found Advance Directives No Advanced Directives Records FoundNo Advanced Directives Records FoundNo Advanced Directives Records FoundNo Advanced Directives Records FoundNo Advanced Directives Records FoundNo Advanced Directives Records Found Hospital Course Note HNO ID: [id number] Author: Марина Renee Service: Hospital Medicine Author [...] (more content not included)... Note HNO ID: [id number] Author: Piper Luu Service: Interventional Radiology Author Type: Physician Type: Brief Op Note Filed: 04/19/2020 10:44 AM Note Text: BRIEF OPERATIVE / PROCEDURE NOTE LOG ID: [id number] SURGERY/PROCEDURE DATE: 04/19/2020 INCISION/PROCEDURE START TIME: INCISION CLOSE/PROCEDURE END TIME: SURGEON(S)/PROCEDURALIST(S) AND PRODUCT STEWARD(S): Surgeon(s) and Role: * Maria Eugenia Cardenas [...] PAGER/CONTACT #: Procedure Findings Note HNO ID: [id number] Author: Piper jose Luu Service: Interventional Radiology Author Type: Physician Type: Brief Op Note Filed: 04/19/2020 10:44 AM Note Text: BRIEF OPERATIVE / PROCEDURE NOTE LOG ID: [id number] SURGERY/PROCEDURE DATE: 04/19/2020 INCISION/PROCEDURE START TIME: INCISION CLOSE/PROCEDURE END TIME: SURGEON(S)/PROCEDURALIST(S) AND PRODUCT STEWARD(S): Surgeon(s) and Role: * Maria Eugenia Cardenas [...] DATE CREATED AUTHOR AUTHOR'S ORGANIZ ATION 05/31/2020 [facility] DATE CREATED AUTHOR AUTHOR'S ORGANIZ ATION 06/14/2020 [facility] DATE CREATED AUTHOR AUTHOR'S ORGANIZ ATION 06/30/2020 [facility] DATE CREATED AUTHOR AUTHOR'S ORGANIZ ATION 10/10/2021 [facility] DATE CREATED AUTHOR AUTHOR'S ORGANIZ ATION 06/03/2022 [facility] FOR RECORDS PERTAINING TO PATIENTS WHO ARE [...] BE BASED ON THE PRIMARY CLINICAL RECORDS. [facility] [employer] provides no warranty or guarantee of the accuracy or completeness of information in this document.
[2023-09-22] VITALS (14 sets, daily range): BP systolic 119–159; BP diastolic 48–99; PULSE 78–95; RESP 16–22; TEMP 36–37.1; O2SAT 94–97; BMI 40.4
[2023-09-22 00:01] LABS: D-Dimer Quantitative (DVT/PE) 5.02 FEU/ug/m (0.27-0.49)
[2023-09-22] MEDS: Azithromycin 500 MG in Dextrose 5%-Water (250mL Bag) 250 ML 250 MG IV ×2 (00:08→10:29)
--- NOTE | 2023-09-22 00:37 | CT_ITS ---
STUDY: CTA CHEST REASON FOR EXAM: Female, 78 years old. Chest pain and shortness of breath RADIATION DOSAGE (If Supplied By Facility): CTDIvol = ( 16.11 ) mGy, DLP = ( 515.53 ) mGycm TECHNIQUE: The examination was performed with the intravenous administration of IV 100mL Isovue-370. Post-processing of the angiographic images was performed, with multiplanar reformation and 3D reconstruction. Individualized dose optimization techniques were used for this CT. COMPARISON: FINDINGS: Normal enhancement of the main pulmonary artery and right and left pulmonary arteries. Normal enhancement of the bilateral peripheral pulmonary arteries. There is no demonstrated pulmonary embolism. Thoracic aorta demonstrates no aneurysmal dilatation or dissection. There is mild left carotid plaque of the arch and descending segment. Arch vessels are patent. Borderline cardiac mainly. Normal pericardium. Shotty mediastinal and hilar lymph nodes. No axillary lymphadenopathy. Normal visualized trachea and bronchi. Airspace consolidation within the posterior medial right lung base. Chronic atelectasis at the posterior medial left lung base. Patchy nodular infiltrate noted throughout the bilateral upper lobes and within the right middle lobe and lingula. No pleural effusion or pneumothorax. Normal chest wall structures. Moderate to severe multilevel degenerative changes in the spine. Chronic compression of the T12 vertebral body with T12 on L1 retrolisthesis. The visualized portions of the upper abdomen demonstrate a moderate-sized hiatal hernia. CT/CTA Chest W/WO Contrast IMPRESSION: 1. No evidence of acute pulmonary embolism. 2. Airspace consolidation at the posterior medial right lung base, concerning for consolidative pneumonia with additional multifocal nodular infiltrates noted throughout both lungs. 3. Reactive mediastinal and hilar lymph nodes. 4. Moderate-sized hiatal hernia. Electronically Signed: Dean Wilkins MD at 1:42 EST ,
[2023-09-22] MEDS: 0.9% Normal Saline (1000mL) 1,000 ML 75 ML IV ×2 (01:50→14:02)
--- OUTSIDE RECORDS SUMMARY | 2023-09-22 01:53 | XMS RPT_ITS | CCD ---
Author Name Unknown Address [address] [place] [address] Organization [facility] Care Team Providers Care Salesperson [employer] Name Role Phone Tanna Jones Unavailable Christopher Driver Unavailable Unavailable Lyly Mata LPN Unavailable [phone] Allergies Allergy Classification Reported Allergen(s) Allergy Type Date of Onset Reaction(s) Facility (3 sources) Nitrofurantoin Drug Allergy 1 Flu like symptoms [facility] Work Phone: Medications Completed/Discontinued Medications Medication Drug Class(es) Dates Sig (Normalized) Sig (Original) acetaminophen 325 mg oral tablet (6 sources) Start: 01-03-2011 TYLENOL 325 MG TABS as directed ACETAMINOPHEN [id number] Nahid Sotelo MD acetaminophen 325 mg / oxyCODONE hydrochloride 10 mg oral tablet (9 sources) Opioid Agonist Start: 06-04-2017 PERCOCET 10-325 MG TABS as directed OXYCODONE-ACETAMINOP HEN [id number] [place] CROCKETT Problems Active Problems Problem Classification [...] (6 sources) Long-term drug therapy; Translations: [Other care home (current) drug therapy] Onset: 10-13-2015 06-04-2017 Past [...] 12:27-0400 Body Temperature 97 [degF] Christopher Driver [facility] Work Phone: 06-09-2017 12:27-0400 BP Diastolic 68 mm[Hg] [facility] Work Phone: 06-09-2017 12:27-0400 BP Systolic 130 mm[Hg] [facility] Work Phone: 06-09-2017 12:27-0400 Height 162.56 cm [facility] Work Phone: 06-09-2017 12:27-0400 Pulse (Heart Rate) 57 /min Christopher Driver [facility] Work Phone: 06-09-2017 12:27-0400 Respiratory Rate 20 /[facility] Work Phone: 06-05-2017 10:01-0400 BMI (Body Mass Index) 34.33 kg/m2 Tanna Jones [facility] Work Phone: 06-05-2017 10:01-0400 BP Diastolic 62 mm[Hg] [facility] Work Phone: 06-05-2017 10:01-0400 BP Systolic 130 mm[Hg] Tanna Jones [facility] Work Phone: 06-05-2017 10:01-0400 [...] Type Care Provider Facility Start: 05-22-2022 ambulatory Facility:[facility] Procedures Date Procedure Procedure Detail Performing [...] SAEED Sotelo MD Start: 04-11-2015 End: 04-11-2015 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 Jackie Pathak PA-C Work Phone: Start: 04-11-2015 [...] Phone: Start: 06-09-2017 End: 06-09-2017 Appointment [facility]ointment [facility] Work Phone: Start: 06-05-2017 End: 06-05-2017 24 hour holter monitor 24 hour holter monitor [facility] Work Phone: Start: 06-05-2017 End: 06-05-2017 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 [facility] Work Phone: Start: 06-05-2017 End: 06-05-2017 Follow Up Appt 6 months Follow Up Appt 6 months [facility] Work Phone: Start: 06-05-2017 [...] Group Work Phone: Start: 04-30-2016 End: 04-30-2016 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 [facility] Work Phone: Start: 04-30-2016 End: 04-30-2016 Follow Up Appt 6 months Follow Up Appt 6 months [facility] Work Phone: Start: 10-28-2015 End: 10-28-2015 Follow Up Appt 6 months Follow Up Appt 6 months [facility] Work Phone: Start: 10-28-2015 End: 10-28-2015 MMM MMM [facility] Work Phone: Start: 04-11-2015 End: 04-11-2015 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 [facility] Work Phone: Start: 04-11-2015 End: 04-11-2015 Ecg routine ecg w/least 12 lds w/i&r EKG (In office) [facility] [employer] Work Phone: Start: 04-11-2015 End: 04-11-2015 Follow Up Appt 6 months Follow Up Appt 6 months [facility] Work Phone: Start: 12-03-2014 End: 12-06-2014 *BMP *BMP [facility] [employer] Work Phone: Start: 12-03-2014 End: 12-06-2014 *CBC with Differential *CBC with Differential [facility] [employer] Work Phone: Start: 12-03-2014 End: 12-03-2014 Echocardiography Echocardiogram (complete) [facility] [employer] Work Phone: Start: 12-03-2014 End: 12-03-2014 Follow Up Appt 4 months Follow Up Appt 4 months [facility] Work Phone: Start: 12-03-2014 End: 12-03-2014 MMM MMM [facility] [employer] Work Phone: Start: 12-03-2014 End: 12-06-2014 Natriuretic peptide B mass conc (Bld) *Brain Natriuretic Peptide BNP [facility] [employer] Work Phone: Start: 07-03-2013 End: 04-24-2016 *Hepatic Function Panel *Hepatic Function Panel [facility] [employer] Work Phone: Start: 07-03-2013 End: 04-24-2016 Lipid [...] Note Patient Outreach ([facility]) PATRICIA HAWLEY ([id number]) 1945 F Date Time Provider Department 10/25/20 [...] Fully Assessed Order(s):SARS-COVID VACCINE 1ST DOSE APPT [[id number]] Order #: [id number] FUTURE Prescriptions as of 10/25/2020 Sig: PROBIOTIC [...] Take 40 mg by mouth once larisa* [id number] * Take 1 tablet by mouth once [...] Encounter Status:Closed by EPIC, PRODUSER on 10/28/20 [facility] Summary Purpose Family History No Family History Records FoundNo Family History Records FoundNo Family History Records FoundNo Family History Records FoundNo Family History Records FoundNo Family History Records Found Advance Directives No Advanced Directives Records FoundNo Advanced Directives Records FoundNo Advanced Directives Records FoundNo Advanced Directives Records FoundNo Advanced Directives Records FoundNo Advanced Directives Records Found Hospital Course Note HNO ID: [id number] Author: Марина Renee Service: Hospital Medicine Author [...] (more content not included)... Note HNO ID: [id number] Author: Piper Luu Service: Interventional Radiology Author Type: Physician Type: Brief Op Note Filed: 04/19/2020 10:44 AM Note Text: BRIEF OPERATIVE / PROCEDURE NOTE LOG ID: [id number] SURGERY/PROCEDURE DATE: 04/19/2020 INCISION/PROCEDURE START TIME: INCISION CLOSE/PROCEDURE END TIME: SURGEON(S)/PROCEDURALIST(S) AND MANAGER INTENSIVE CARE UNIT(S): Surgeon(s) and Role: * Maria Eugenia Cardenas [...] PAGER/CONTACT #: Procedure Findings Note HNO ID: [id number] Author: Piper jose Luu Service: Interventional Radiology Author Type: Physician Type: Brief Op Note Filed: 04/19/2020 10:44 AM Note Text: BRIEF OPERATIVE / PROCEDURE NOTE LOG ID: [id number] SURGERY/PROCEDURE DATE: 04/19/2020 INCISION/PROCEDURE START TIME: INCISION CLOSE/PROCEDURE END TIME: SURGEON(S)/PROCEDURALIST(S) AND MANAGER INTENSIVE CARE UNIT(S): Surgeon(s) and Role: * Maria Eugenia Cardenas [...] DATE CREATED AUTHOR AUTHOR'S ORGANIZ ATION 05/31/2020 [facility] DATE CREATED AUTHOR AUTHOR'S ORGANIZ ATION 06/14/2020 [facility] DATE CREATED AUTHOR AUTHOR'S ORGANIZ ATION 06/30/2020 [facility] DATE CREATED AUTHOR AUTHOR'S ORGANIZ ATION 10/10/2021 [facility] DATE CREATED AUTHOR AUTHOR'S ORGANIZ ATION 06/03/2022 [facility] FOR RECORDS PERTAINING TO PATIENTS WHO [...] BE BASED ON THE PRIMARY CLINICAL RECORDS. [facility] [employer] provides no warranty or guarantee of the accuracy or completeness of information in this document.
[2023-09-22 03:32] LABS: Allen Test Positive; Base Excess -4 mmol/L (-2 to +2); Bicarbonate 21.7 mmol/L (22-26); Blood Gas Specimen Type ART; Mode Not entered; O2 Delivery Device Cannula; PO2 101 mmHG (75-100); SITE L Radial; SO2 97 % (95-99); Total Carbon Dioxide 23 mmol/L; pCO2 41.4 mmHg (35-45); pH 7.33 (7.35-7.45)
--- NOTE | 2023-09-22 05:23 | VDLE_ITS ---
Reason For Study: Elevated D-Dimer RIGHT LEFT GSV is normal. GSV is normal. CFV is compressible, spontaneous, phasic, CFV is compressible, spontaneous, phasic, competent and demonstrates normal competent, and demonstrates normal augmentation. augmentation. FV is compressible, spontaneous, phasic, FV is compressible, spontaneous, phasic, competent and demonstrates normal competent and demonstrates normal augmentation. augmentation. POP V is compressible, spontaneous, phasic, POP V is compressible, spontaneous, phasic, competent and demonstrates normal competent and demonstrates normal augmentation. augmentation. T/P Trunk is compressible. T/P Trunk is compressible. PTV is compressible. PTV is compressible. RT PerV is compressible. LT PerV is compressible. Procedure This is a venous duplex using B-mode, color flow and spectral Doppler. Exam performed portable in patient room. A preliminary report was called and/or faxed to Cathy BRADLEY. VL/Venous Duplex US - Philip Extrem Interpretation Summary No evidence for acute deep venous thrombosis bilateral lower extremities with p atent and compressible bilateral great saphenous veins. Ordering Physician: Jovanni Dobbs Referring Physician: Wolf Berry Performed By: Kathe Gould, SACHIN, RVT
[2023-09-22] MEDS: Gabapentin 300 MG Capsule PO ×3 (05:36→21:38)
[2023-09-22] MEDS: Enoxaparin 100 MG/ML Syringe SC ×2 (05:48→18:23)
[2023-09-22] MEDS: Albuterol 2.5 MG/3 ML VIAL.NEB. INHALATION ×3 (06:54→20:26)
[2023-09-22 07:32] LABS: Absolute Lymphocyte Count 1.08 X10^3/uL (0.83-4.51); Absolute Neutrophil Count 9.8 X10^3/uL (2.0-7.7); Basophil# 0.02 X10^3/uL; Basophil% 0.2 % (0-1); Hematocrit 35.2 % (37-47); Hemoglobin 11.1 g/dL (12.0-15.0); Lymphocyte # 1.08 X10^3/ul (0.83-4.51); Lymphocyte % 9.6 % (19-41); Mean Corp Hgb Conc 31.5 g/dL (32-36); Mean Corpuscular Hgb 30.7 pg (27.0-32.0); Mean Corpuscular Volume 97.2 fL (81-99); Mean Platelet Vol. 10.6 fl (6.2-12.0); Monocyte# 0.31 X10^3/uL; Monocyte% 2.8 % (0-10); NRBC Flagged by Analyzer 0 % (0-5); Platelet Count 309 K/mm3 (150-450); RBC Distribution Width CV 12.8 % (11.6-14.6); RBC Distribution Width SD 46.1 fl (35.1-43.9); Red Blood Count 3.62 M/mm3 (4.2-5.4); White Blood Count 11.3 K/mm3 (4.4-11.0)
[2023-09-22 08:17] LABS: ALB/GLOB Ratio 0.5 RATIO (0.9-2.4); AST(SGOT) 18 U/L (15-37); Alanine Aminotransfer ALT/SGPT 23 U/L (13-56); Albumin, Serum 2.5 g/dL (3.2-5.0); Alkaline Phosphatase 127 U/L (45-117); Anion Gap 9 (5-15); BUN 30 mg/dL (7-18); BUN/Creat Ratio 25.9 RATIO (10-20); Calcium,Total 10.2 mg/dL (8.5-10.1); Chloride 105 mmol/L (98-107); Creatinine, Serum 1.16 mg/dL (0.55-1.02); EST Glomerular Filtration Rate 48 mL/min (>60); Est Glom Filt Rate - Afr Amer 58 mL/min (>60); Globulin 5.1 g/dL (2.2-4.2); Glucose 162 mg/dL (74-106); Magnesium 2.2 mg/dL (1.6-2.6); Phosphorus 3.1 mg/dL (2.5-4.9); Potassium 3.6 mmol/L (3.5-5.1); Protein, Total 7.6 g/dL (6.4-8.2); Sodium Level 135 mmol/L (136-145); Thyroid Stim Hormone (TSH) 0.95 uIU/mL (0.358-3.74)
[2023-09-22] MEDS: MethylPREDNISolone 125 MG/2 ML Vial 60 MG IV ×2 (08:26→21:42)
[2023-09-22] MEDS: Multivitamins,Ther W-Minerals Tablet 1 TABLET PO (08:26)
[2023-09-22] MEDS: busPIRone 5 MG Tablet PO (08:26)
[2023-09-22] MEDS: Furosemide 40 MG Tablet PO (08:26)
[2023-09-22] MEDS: DULoxetine Hcl 60 MG Capsule PO (08:26)
[2023-09-22] MEDS: Metoprolol(XL)Succ 50 MG Tablet PO (08:27)
[2023-09-22] MEDS: Cholecalciferol (VIT D3) 25 MCG TABLET (1,000 UNITS) 100 MCG PO (08:28)
[2023-09-22] MEDS: Lisinopril 10 MG Tablet PO (08:28)
[2023-09-22] MEDS: Sertraline 100 MG Tablet 200 MG PO (08:29)
[2023-09-22] MEDS: 0.9% Saline Lock 10 ML Syringe IV ×2 (08:29→21:53)
--- NOTE | 2023-09-22 09:07 | PCM.PN.HOSP ---
Subjective Subjective Doing well, no issues overnight. Maintaining her oxygen saturations on 2 L nasal cannula Objective Data Objective Data Vital Signs: Vital Signs Temp Pulse Resp BP Pulse Ox O2 Del Method O2 Flow Rate 97.3 F L 85 16 159/96 H 97 Nasal Cannula 2 09/22/23 08:20 09/22/23 08:27 09/22/23 08:20 09/22/23 08:27 09/22/23 08:20 09/22/23 08:20 09/22/23 08:20 FiO2 40 09/21/23 22:38 Oxygen Flow Rate (L/min) 2 Oxygen Delivery Method Nasal Cannula Weight: 206 lb 12.697 oz Body Mass Index (BMI) 40.4 Intake & Output: Intake and Output for Last 24 Hours 09/21/23 09/22/23 09/23/23 03:59 03:59 03:59 Intake Total 305 / 305 Output Total 450 / 450 Balance 305 / 305 -450 / -450 Lab / Micro Data 09/22/23 06:50 09/22/23 06:50 Labs: Laboratory Results - last 24 hr 09/21/23 20:25: WBC 15.8 H, RBC 3.87 L, Hgb 11.7 L, Hct 37.5, MCV 96.9, MCH 30.2, MCHC 31.2 L, RDW Std Deviation 45.1 H, RDW Coeff of Zach 12.8, Plt Count 279, MPV 10.3, Immature Gran % (Auto) 0.500, Neut % (Auto) 75.8 H, Lymph % (Auto) 13.1 L, [place] % (Auto) 9.8, Eos % (Auto) 0.4, Baso % (Auto) 0.4, Absolute Neuts (auto) 11.9 H, Absolute Lymphs (auto) 2.07, Nucleated RBC % 0, Differential Comment SCANNED, Diff Path Review December, Sodium 133 L, Potassium 4.0, Chloride 104, Carbon Dioxide 21.0, Anion Gap 8, BUN 30 H, Creatinine 1.21 H, Estim Creat Clear Calc 41.38, Est GFR (MDRD) Af Amer 55 L, Est GFR (MDRD) Non-Af 46 L, BUN/Creatinine Ratio 24.8 H, Glucose 129 H, Calcium 9.6, Troponin I High Sens 30 09/21/23 20:40: Lactic Acid 1.1 09/21/23 23:21: D-Dimer Quant (PE/DVT) 5.02 H* 09/22/23 06:50: WBC 11.3 H, RBC 3.62 L, Hgb 11.1 L, Hct 35.2 L, MCV 97.2, MCH 30.7, MCHC 31.5 L, RDW Std Deviation 46.1 H, RDW Coeff of Zach 12.8, Plt Count 309, MPV 10.6, Immature Gran % (Auto) 0.400, Neut % (Auto) 87.0 H, Lymph % (Auto) 9.6 L, [place] % (Auto) 2.8, Eos % (Auto) 0.0, Baso % (Auto) 0.2, Absolute Neuts (auto) 9.8 H, Absolute Lymphs (auto) 1.08, Nucleated RBC % 0, Sodium 135 L, Potassium 3.6, Chloride 105, Carbon Dioxide 21.0, Anion Gap 9, BUN 30 H, Creatinine 1.16 H, Estim Creat Clear Calc 40.90, Est GFR (MDRD) Af Amer 58 L, Est GFR (MDRD) Non-Af 48 L, BUN/Creatinine Ratio 25.9 H, Glucose 162 H, Calcium 10.2 H, Phosphorus 3.1, Magnesium 2.2, Total Bilirubin 0.50, AST 18, ALT 23, Alkaline Phosphatase 127 H, Total Protein 7.6, Albumin 2.5 L, Globulin 5.1 H, Albumin/Globulin Ratio 0.5 L, TSH 0.95 Micro: Microbiology 09/21/23 20:50 Mucosa - Nasopharyngeal SARS-CoV-2, Influenza & RSV (PCR) - Final ABG Data ABG results: ABG 09/22/23 03:28 Specimen Type ART Sample Site L Radial pH 7.33 L Bicarbonate Actual 21.7 L Total CO2 23 Base Excess -4 L O2 Saturation 97 O2 % 3.0 ABG pCO2 41.4 ABG pO2 101 H Anson Test Positive O2 Delivery Device Cannula Vent Mode Not entered Radiography Diagnostic Testing: Radiology Impression Chest X-Ray 09/21/23 21:07 IMPRESSION: Mild bibasilar discoid atelectasis and subsegmental atelectasis in the right upper lobe Electronically Signed: Jan Pérez MD at 21:18 EST , Chest CTA 09/22/23 00:37 IMPRESSION: 1. No evidence of acute pulmonary embolism. 2. Airspace consolidation at the posterior medial right lung base, concerning for consolidative pneumonia with additional multifocal nodular infiltrates noted throughout both lungs. 3. Reactive mediastinal and hilar lymph nodes. 4. Moderate-sized hiatal hernia. Electronically Signed: Dean Wilkins MD at 1:42 EST , Physical Exam Narrative General: Alert, Oriented x3, Cooperative, No apparent distress HEENT: Atraumatic, PERRLA, EOMI, Normocephalic Oral: Moist Mucosa Neck: Supple, No JVD Lungs: Diminished, Normal air movement, No rhonchi, No wheeze, No rales Cardiovascular: Regular rate, Regular Rhythm, Normal S1, Normal S2, No murmurs Abdomen: Soft, Non Tender, Non-Distended, No Hepato-splenomegaly Extremities: No edema, Capillary Refill Less than 3 Seconds Skin: No rashes, No breakdown Musculoskeletal: No Tenderness to Palpation of Joints or Extremities Neurological: Cranial nerves II-XII grossly intact, Motor Exam 5/5 strength throughout, Sensory exam intact to light touch and pain Psych/Mental Status: Normal Affect, Appropriate Assessment & Plan Assessment/Plan (1) Multifocal pneumonia: (2) COPD exacerbation: (3) Acute hypoxic respiratory failure: (4) D-dimer, elevated: PLAN: Plan 1. Multifocal pneumonia with COPD exacerbation ? Continue with broad-spectrum antibiotics, continue with azithromycin and Rocephin ? She did have Lu D-dimer so CTA of the chest was obtained which did not demonstrate PE however a Doppler is being done as well, no lower extremity edema however she was placed on full dose anticoagulation ? Continue with steroids and breathing treatments ? Can take out of precautions, she had a respiratory panel few days ago that were negative for virus 2. HTN/HLD/PVD/morbid obesity ? Blood pressures are stable ? Can resume with her home blood pressure medications ? We will monitor make adjustments as necessary ? Continue with statin 3. Depression/anxiety ? Stable ? Continue with her home medications DVT: Therapeutic Lovenox Charges/Coding Visit Charges Inpatient E&M: 92443 Subs Hosp L2
[2023-09-22] MEDS: Menthol/Lanolin/Calamine/Znox 113 GM Tube 1 APPLIC TOPICAL ×2 (10:29→21:39)
[2023-09-22] MEDS: Ceftriaxone 1 GM/50 ML BAG IV (10:29)
[2023-09-22] MEDS: Pravastatin 40 MG Tablet PO (21:41)
[2023-09-22] MEDS: MELATONIN 10 MG TABLET 5 MG PO (21:41)
[2023-09-22] MEDS: Methadone 10 MG Tablet PO (21:45)
[2023-09-23] VITALS (11 sets, daily range): BP systolic 126–160; BP diastolic 58–99; PULSE 85–100; RESP 15–28; TEMP 36.5–37; O2SAT 95–98; BMI 40.5
[2023-09-23] MEDS: 0.9% Normal Saline (1000mL) 1,000 ML 75 ML IV (03:23)
[2023-09-23 04:32] LABS: Absolute Lymphocyte Count 0.86 X10^3/uL (0.83-4.51); Absolute Neutrophil Count 8.7 X10^3/uL (2.0-7.7); Basophil# 0.01 X10^3/uL; Basophil% 0.1 % (0-1); Hematocrit 32.3 % (37-47); Hemoglobin 10.1 g/dL (12.0-15.0); Lymphocyte # 0.86 X10^3/ul (0.83-4.51); Lymphocyte % 8.5 % (19-41); Mean Corp Hgb Conc 31.3 g/dL (32-36); Mean Corpuscular Hgb 30.3 pg (27.0-32.0); Mean Platelet Vol. 10.1 fl (6.2-12.0); Monocyte# 0.43 X10^3/uL; Monocyte% 4.3 % (0-10); NRBC Flagged by Analyzer 0 % (0-5); Platelet Count 340 K/mm3 (150-450); RBC Distribution Width CV 13.1 % (11.6-14.6); RBC Distribution Width SD 46.6 fl (35.1-43.9); Red Blood Count 3.33 M/mm3 (4.2-5.4); White Blood Count 10.1 K/mm3 (4.4-11.0)
[2023-09-23 05:02] LABS: Anion Gap 9 (5-15); BUN 34 mg/dL (7-18); BUN/Creat Ratio 28.8 RATIO (10-20); Calcium,Total 9.4 mg/dL (8.5-10.1); Chloride 104 mmol/L (98-107); Creatinine, Serum 1.18 mg/dL (0.55-1.02); EST Glomerular Filtration Rate 47 mL/min (>60); Est Glom Filt Rate - Afr Amer 57 mL/min (>60); Estimated Creatinine Clearance 40.28 ml/min; Glucose 154 mg/dL (74-106); Potassium 3.5 mmol/L (3.5-5.1); Sodium Level 137 mmol/L (136-145)
[2023-09-23] MEDS: Gabapentin 300 MG Capsule PO ×3 (05:57→21:31)
[2023-09-23] MEDS: Senna/Docusate Sodium 1 Tablet PO ×2 (05:57→21:38)
[2023-09-23] MEDS: Enoxaparin 100 MG/ML Syringe SC (05:58)
[2023-09-23] MEDS: Ipratropium/Albuterol Sulfate 3 ML AMPUL.NEB INHALATION ×3 (06:50→19:58)
[2023-09-23] MEDS: Sertraline 100 MG Tablet 200 MG PO (09:29)
[2023-09-23] MEDS: Lisinopril 10 MG Tablet PO (09:29)
[2023-09-23] MEDS: DULoxetine Hcl 60 MG Capsule PO (09:29)
[2023-09-23] MEDS: busPIRone 5 MG Tablet PO (09:29)
[2023-09-23] MEDS: Multivitamins,Ther W-Minerals Tablet 1 TABLET PO (09:30)
[2023-09-23] MEDS: Furosemide 40 MG Tablet PO (09:30)
[2023-09-23] MEDS: Cholecalciferol (VIT D3) 25 MCG TABLET (1,000 UNITS) 100 MCG PO (09:30)
[2023-09-23] MEDS: Metoprolol(XL)Succ 50 MG Tablet PO (09:30)
[2023-09-23] MEDS: MethylPREDNISolone 125 MG/2 ML Vial 60 MG IV ×2 (09:31→21:27)
[2023-09-23] MEDS: Menthol/Lanolin/Calamine/Znox 113 GM Tube 1 APPLIC TOPICAL ×2 (09:32→21:27)
[2023-09-23] MEDS: Polyethylene Glycol 3350 17 GM PACKET PO (09:33)
[2023-09-23] MEDS: Azithromycin 500 MG in Dextrose 5%-Water (250mL Bag) 250 ML 250 MG IV (09:39)
[2023-09-23] MEDS: Ceftriaxone 1 GM/50 ML BAG IV (11:55)
--- NOTE | 2023-09-23 14:00 | PN_ITS ---
Subjective Subjective Patient seen and examined. She had no active complaints. She feels her breathing is improving. She denied any chest pain, palpitations, dizziness, nausea, vomiting or any other symptoms. Review of systems is otherwise negative. Objective Data Objective Data Vital Signs: Vital Signs Temp Pulse Resp BP Pulse Ox O2 Del Method O2 Flow Rate 98.1 F 88 20 H 126/99 H 95 Nasal Cannula 2 09/23/23 09:24 09/23/23 12:58 09/23/23 12:58 09/23/23 09:30 09/23/23 09:24 09/23/23 09:43 09/23/23 09:43 FiO2 40 09/21/23 22:38 Oxygen Flow Rate (L/min) 2 Oxygen Delivery Method Nasal Cannula Weight: 207 lb 7.28 oz Body Mass Index (BMI) 40.5 Intake & Output: Intake and Output for Last 24 Hours 09/21/23 09/22/23 09/23/23 23:59 23:59 23:59 Intake Total 2355 / 2355 2365.00 / 2365.00 Output Total 2024 / 2024 1150 / 1150 Balance 330 / 330 1215.00 / 1215.00 Lab / Micro Data 09/23/23 04:10 09/23/23 04:10 Labs: Laboratory Results - last 24 hr 09/23/23 04:10: WBC 10.1, RBC 3.33 L, Hgb 10.1 L, Hct 32.3 L, MCV 97.0, MCH 30.3, MCHC 31.3 L, RDW Std Deviation 46.6 H, RDW Coeff of Zach 13.1, Plt Count 340, MPV 10.1, Immature Gran % (Auto) 1.100 H, Neut % (Auto) 86.0 H, Lymph % (Auto) 8.5 L, [place] % (Auto) 4.3, Eos % (Auto) 0.0, Baso % (Auto) 0.1, Absolute Neuts (auto) 8.7 H, Absolute Lymphs (auto) 0.86, Nucleated RBC % 0, Sodium 137, Potassium 3.5, Chloride 104, Carbon Dioxide 24.0, Anion Gap 9, BUN 34 H, Creatinine 1.18 H, Estim Creat Clear Calc 40.28, Est GFR (MDRD) Af Amer 57 L, Est GFR (MDRD) Non-Af 47 L, BUN/Creatinine Ratio 28.8 H, Glucose 154 H, Calcium 9.4 Micro: Microbiology 09/21/23 21:35 Blood Culture (Wb) - Left Hand Bacteria Detection (PCR) - Final Staphylococcus epidermidis mecA Resistance Marker 09/21/23 21:35 Blood Culture (Wb) - Left Hand Blood Culture - Preliminary Staphylococcus epidermidis 09/21/23 20:50 Mucosa - Nasopharyngeal SARS-CoV-2, Influenza & RSV (PCR) - Final Physical Exam Const alert, oriented x3 and no apparent distress General Appearance: cooperative HEENT normocephalic, head/scalp atraumatic, moist oral mucous membranes and oropharynx normal Eyes PERRL and EOMs intact bilaterally Neck no lymphadenopathy and supple Lymph Lymphatic: no lymphadenopathy noted and no lymphedema noted Resp Resp Narrative: moderately diminished breath sounds bibasally, no wheezes or crackles. On 2L of oxygen by nasal canula Cardio regular rate, regular rhythm, S1 normal heart sound, S2 normal heart sound and no murmurs GI normal to inspection, nondistended, normoactive bowel sounds, soft to palpation, non-tender and non-distended Extremity normal capillary refill, no clubbing, cyanosis or edema and no calf tenderness General Extremity: no tenderness to palpation of joints or extremities Skin General Skin Exam: no breakdown Neuro CN's II-XII intact bilaterally, no focal motor deficits, no sensory deficits noted and deep tendon reflexes 2+ bilaterally Motor Exam: strength 5/5 throughout and general weakness Psych thought process normal, cooperative and affect normal Appearance: appropriate Assessment & Plan Assessment/Plan (1) Acute hypoxic respiratory failure: (2) COPD exacerbation: (3) Multifocal pneumonia: (4) Essential (primary) hypertension: PLAN: Plan #Hypoxia due to multifocal pneumonia and COPD exacerbation * on breathing treatment with bronchodilators * n IV ceftriaxone and azithromycin * CTA chest showed no evidence of PE * on IV solumedrol * urine for Strep and Legionella are negative. Sputum culture negative * blood cultures growing Staph epidermidis in 1/2 samples. PCR test also positiv for Staph epidermidis; this is thought to be due to a skin contaminant. * #ELevated D dimer * CT of the chest was negative for PE. Patient also was started on therapeutic Lovenox also waiting for duplex of lower extremities rule out DVT. * #Hypertension: on lisinopril and metoprolol #Hyperlipidemia: on statin #Peripheral vascular disease: #Depression and anxiety: on buspirone and duloxetine as well as sertraline DVT prophylaxis: on therapeutic lovenox pending Duplex of LEs to rule out DVT Charges/Coding Visit Charges Inpatient E&M: 87269 Subs Hosp L2
[2023-09-23 14:26] LABS: Pathologist Review Reviewed
--- NOTE | 2023-09-23 14:55 | CHAPLAIN ---
Type of Pastoral Visit ___ Initial Visit ___ Follow-up Visit ___ On-call Visit ___ General Patient Visit ___ Spiritual Assessment ___ Family Conference ___ Bereavement ___ Rapid Response ___ Code Blue ___ Other (describe below) Pastoral Care Referral From ___ Patient ___ Family ___ Nurse ___ Physician ___ Metal Sponge Making Machine Operator ___ Sas Clinical Programmer ___ Other (describe below) Sacrament/Intervention ___ Active listening ___ Anointing ___ Scientologist ___ Bereavement ___ Communion ___ Cindy exploration ___ ___ Life review ___ Prayer ___ Reconciliation ___ Sacrament of Sick ___ Supportive presence ___ Wedding ___ Other (describe below) Pastoral Comments patient is sleeping and does not awaken to entrance into room; left a calling card
[2023-09-23] MEDS: Oxycodone/Apap 5/325 Tablet PO (20:09)
[2023-09-23] MEDS: Methadone 10 MG Tablet PO (21:24)
[2023-09-23] MEDS: MELATONIN 10 MG TABLET 5 MG PO (21:25)
[2023-09-23] MEDS: Pravastatin 40 MG Tablet PO (21:26)
[2023-09-23] MEDS: 0.9% Saline Lock 10 ML Syringe IV (21:31)
[2023-09-24] VITALS (7 sets, daily range): BP systolic 120–156; BP diastolic 89–95; PULSE 79–97; RESP 16–20; TEMP 36.5–36.8; O2SAT 93–96; BMI 41.2
[2023-09-24] MEDS: Gabapentin 300 MG Capsule PO ×2 (05:24→13:32)
[2023-09-24 06:22] LABS: Absolute Lymphocyte Count 1.16 X10^3/uL (0.83-4.51); Absolute Neutrophil Count 6.7 X10^3/uL (2.0-7.7); Basophil# 0.04 X10^3/uL; Basophil% 0.5 % (0-1); Hemoglobin 9.6 g/dL (12.0-15.0); Lymphocyte # 1.16 X10^3/ul (0.83-4.51); Lymphocyte % 13.2 % (19-41); Mean Corpuscular Hgb 30.2 pg (27.0-32.0); Mean Corpuscular Volume 97.5 fL (81-99); Mean Platelet Vol. 9.4 fl (6.2-12.0); Monocyte# 0.51 X10^3/uL; Monocyte% 5.8 % (0-10); NRBC Flagged by Analyzer 0 % (0-5); Neutrophil # 6.72 X10^3/uL (2.7-7.7); Neutrophil % 76.5 % (47-70); Platelet Count 335 K/mm3 (150-450); RBC Distribution Width SD 47.1 fl (35.1-43.9); Red Blood Count 3.18 M/mm3 (4.2-5.4); White Blood Count 8.8 K/mm3 (4.4-11.0)
[2023-09-24 06:43] LABS: Anion Gap 5 (5-15); BUN 39 mg/dL (7-18); BUN/Creat Ratio 36.1 RATIO (10-20); Calcium,Total 9.4 mg/dL (8.5-10.1); Chloride 108 mmol/L (98-107); Creatinine, Serum 1.08 mg/dL (0.55-1.02); EST Glomerular Filtration Rate 52 mL/min (>60); Est Glom Filt Rate - Afr Amer 63 mL/min (>60); Estimated Creatinine Clearance 44.47 ml/min; Glucose 138 mg/dL (74-106); Potassium 3.7 mmol/L (3.5-5.1); Sodium Level 138 mmol/L (136-145)
[2023-09-24] MEDS: Ipratropium/Albuterol Sulfate 3 ML AMPUL.NEB INHALATION ×2 (06:53→13:45)
[2023-09-24] MEDS: Cholecalciferol (VIT D3) 25 MCG TABLET (1,000 UNITS) 100 MCG PO (08:22)
[2023-09-24] MEDS: busPIRone 5 MG Tablet PO (08:22)
[2023-09-24] MEDS: Multivitamins,Ther W-Minerals Tablet 1 TABLET PO (08:23)
[2023-09-24] MEDS: Furosemide 40 MG Tablet PO (08:23)
[2023-09-24] MEDS: DULoxetine Hcl 60 MG Capsule PO (08:23)
[2023-09-24] MEDS: Lisinopril 10 MG Tablet PO (08:23)
[2023-09-24] MEDS: Sertraline 100 MG Tablet 200 MG PO (08:24)
[2023-09-24] MEDS: Metoprolol(XL)Succ 50 MG Tablet PO (08:24)
[2023-09-24] MEDS: Senna/Docusate Sodium 1 Tablet PO (08:33)
[2023-09-24] MEDS: Polyethylene Glycol 3350 17 GM PACKET PO (08:33)
[2023-09-24] MEDS: Ceftriaxone 1 GM/50 ML BAG IV (09:51)
[2023-09-24] MEDS: 0.9% Saline Lock 10 ML Syringe IV (09:51)
[2023-09-24] MEDS: MethylPREDNISolone 125 MG/2 ML Vial 60 MG IV (09:52)
[2023-09-24] MEDS: Menthol/Lanolin/Calamine/Znox 113 GM Tube 1 APPLIC TOPICAL (09:57)
--- NOTE | 2023-09-24 09:59 | CASEMGMT ---
RAMIRO met with patient. Introduced self and role at [facility]. Patient confirmed her plan is to return to [place] at discharge. Per physician she is going to discharge patient today. RAMIRO notified María d/c marketing planning manager. Plan: d/c back to [place] under skilled level of care. Physicians will transport patient. Corrie Vega MSW SUSIE
[2023-09-24] MEDS: Enoxaparin 40 MG/0.4 ML Syringe SC (10:01)
[2023-09-24] MEDS: Azithromycin 500 MG in Dextrose 5%-Water (250mL Bag) 250 ML 250 MG IV (10:41)
[2023-09-24] MEDS: Magnesium Hydroxide 30 ML UDC PO (11:08)
--- NOTE | 2023-09-24 11:55 | TREXTCAR_ITS ---
Diet Diet Order/Speech Therapy: 09/22/23 02:37 Diet: Regular - No Added Salt Is pt able to select menu?: Yes Routine Orders/Code Status Enema Type: Fleetz Enema Frequency: Daily PRN Suppository Type: Dulcolax 10mg Suppository Frequency: Daily PRN O2 Frequency: PRN Keep PO Greater than or Equal to (%): 90 Therapies Weight Bearing: Weight bearing as tolerated Physical Therapy: Eval and Treat Occupational Therapy: Eval and Treat Problem/Diagnosis (1) Acute hypoxic respiratory failure: Status: Acute Code(s): J96.01 - Acute respiratory failure with hypoxia (2) COPD exacerbation: Status: Chronic Code(s): J44.1 - Chronic obstructive pulmonary disease with (acute) exacerbation (3) Multifocal pneumonia: Status: Acute Code(s): J18.9 - Pneumonia, unspecified organism (4) Essential (primary) hypertension: Status: Acute Code(s): I10 - Essential (primary) hypertension Plan #Hypoxia due to multifocal pneumonia and COPD exacerbation * on breathing treatment with bronchodilators * n IV ceftriaxone and azithromycin * CTA chest showed no evidence of PE * on IV solumedrol * urine for Strep and Legionella are negative. Sputum culture negative * blood cultures growing Staph epidermidis in 1/2 samples. PCR test also positiv for Staph epidermidis; this is thought to be due to a skin contaminant. * #ELevated D dimer * CT of the chest was negative for PE. Patient also was started on therapeutic Lovenox also waiting for duplex of lower extremities rule out DVT. * #Hypertension: on lisinopril and metoprolol #Hyperlipidemia: on statin #Peripheral vascular disease: #Depression and anxiety: on buspirone and duloxetine as well as sertraline DVT prophylaxis: on therapeutic lovenox pending Duplex of LEs to rule out DVT Allergies/Procedures Done in Hospital Allergies morphine Allergy (Unknown, Verified 09/21/23 19:44) unknown amoxicillin [From Augmentin] Adverse Reaction (Verified 09/21/23 19:44) Nausea/Vom/Diarrhea clavulanic acid [From Augmentin] Adverse Reaction (Verified 09/21/23 19:44) Nausea/Vom/Diarrhea nitrofurantoin macrocrystalline [From Macrodantin] Adverse Reaction (Verified 09/21/23 19:44) Vomiting sulfamethoxazole [From Bactrim] Adverse Reaction (Verified 09/21/23 19:44) Nausea/Vom/Diarrhea trimethoprim [From Bactrim] Adverse Reaction (Verified 09/21/23 19:44) Nausea/Vom/Diarrhea Procedures: None Type of Care/Length of Stay Estimated LOS: Convalescent Care Less Than 30 days Type of Care Needed: Skilled Rehab Potential: Fair Prognosis: Fair Additional Orders/Day of Discharge Day of Discharge: 09/24/23 Dietary and Speech Recommendations Dietitian Recommendations/Changes: continue regular no added salt diet as tolerated; ONS w/ medpass if PO intake at meals declines further Discharge Plan Admission Admit Date/Time: 09/21/23 23:54 Primary Reason for Your Visit: COPD exacerbation Attending Provider: Mary Cobos Primary Care Provider: Wolf Berry Consulting Providers: Jovanni Dobbs; Germain Pettit Instructions Patient Instructions: COPD Meds Discharge Orders/Prescriptions Prescriptions: New prednisone 20 mg tablet 40 mg PO DAILY Qty: 10 0RF Continued pravastatin 40 mg tablet 40 mg PO QHS duloxetine 60 mg capsule,delayed release(DR/EC) 60 mg PO DAILY lisinopril 10 mg tablet 10 mg PO DAILY metoprolol succinate 50 mg tablet extended release 24 hr 50 mg PO DAILY fluticasone furoate-vilanterol [Breo Ellipta] 100-25 mcg/dose blister with device 1 inh inhalation DAILY buspirone 5 mg tablet 5 mg PO TID buspirone 5 mg tablet 5 mg PO DAILY estradiol 0.01 % (0.1 mg/gram) cream 1 appful vaginal MOWEFR naloxone 4 mg/actuation spray,non-aerosol 1 spray intranasal Q2-3M PRN (Reason: OVERDOSE) Rx Instructions: spray 1 dose into ONE nostril; alternate nostrils w each dose until help arrives pomegranate fruit extract 250 mg capsule 500 mg PO DINNER cholecalciferol (vitamin D3) 100 mcg (4,000 unit) tablet 100 mcg PO DAILY albuterol sulfate 90 mcg/actuation HFA aerosol inhaler 2 inh inhalation Q4H PRN (Reason: SOB/WHEEZING) oxycodone-acetaminophen [Percocet] 5-325 mg tablet 1 tab PO TID PRN (Reason: pain) Centrum Silver 0.4 mg-300 mcg- 250 mcg tablet 1 tab PO DAILY polyethylene glycol 3350 17 gram powder in packet 17 g PO DAILY PRN (Reason: CONSTIPATION) methenamine hippurate 1 GM tablet 1 g PO BID Hold Instructions: Resume on 09/27/22. Rx Instructions: this can be used ongoing for prevention of uti. gabapentin 300 mg capsule 300 mg PO TID ondansetron HCl 4 mg tablet 4 mg PO Q8H PRN (Reason: Nausea) sennosides-docusate sodium 8.6-50 mg tablet 1 tab PO BID PRN (Reason: CONSTIPATION) albuterol sulfate 2.5 mg /3 mL (0.083 %) Solution For Nebulization 2.5 mg INHALATION Q4H PRN (Reason: SOB/WHEEZING) sertraline 100 mg tablet 200 mg PO DAILY acetaminophen 500 mg Tablet 500 mg PO Q6H PRN (Reason: Pain) guaifenesin [Siltussin SA] 100 mg/5 mL Liquid 200 mg PO Q6H PRN (Reason: COUGH/SORE THROAT) melatonin 5 mg Tablet 5 mg PO QHS Proheal 30 ml PO/SL BID ULTRAFLORA IMMUNE HEALTH 170 mg PO/SL DAILY furosemide [Lasix] 40 mg tablet 40 mg PO DAILY hydrocortisone [Preparation H Hydrocortisone] 1 % Cream 1 applic TOPICAL TID PRN (Reason: Hemorrhoids) levofloxacin 500 mg tablet 500 mg PO DAILY Qty: 5 0RF methadone 10 MG tablet 10 mg PO QHS 3 Days Qty: 3 0RF Biofreeze (menthol) 4 % gel 1 applic topical BID PRN (Reason: pain) Rx Instructions: apply to shoulder and lower back polyethylene glycol 3350 [ClearLax] 17 gram/dose powder 17 g PO DAILY PRN (Reason: constipation) Discontinued prednisone 20 mg tablet 40 mg PO DAILY 5 Days Qty: 10 0RF Referrals / Follow Up: Wolf Berry MD [Primary Care Provider] - Within 1 Week Disposition Disposition (needs filled in before D/C Order can be placed): Senior Living Facility
--- NOTE | 2023-09-24 11:58 | DS.PCM_ITS ---
Providers Date of Admission: 09/21/23 Date of Discharge: 09/24/23 Primary Care Physician: Dr. Wolf Berry MD Reason For Visit: ACUTE EXACERBATION OF COPD W/ ACUTE HYPOXIC Diagnosis Discharge Diagnosis (1) Acute hypoxic respiratory failure: Status: Acute Code(s): J96.01 - Acute respiratory failure with hypoxia (2) COPD exacerbation: Status: Chronic Code(s): J44.1 - Chronic obstructive pulmonary disease with (acute) exacerbation (3) Multifocal pneumonia: Status: Acute Code(s): J18.9 - Pneumonia, unspecified organism (4) Essential (primary) hypertension: Status: Acute Code(s): I10 - Essential (primary) hypertension Plan #Hypoxia due to multifocal pneumonia and COPD exacerbation * on breathing treatment with bronchodilators * n IV ceftriaxone and azithromycin * CTA chest showed no evidence of PE * on IV solumedrol * urine for Strep and Legionella are negative. Sputum culture negative * blood cultures growing Staph epidermidis in 1/2 samples. PCR test also positiv for Staph epidermidis; this is thought to be due to a skin contaminant. * #ELevated D dimer * CT of the chest was negative for PE. Patient also was started on therapeutic Lovenox also waiting for duplex of lower extremities rule out DVT. * #Hypertension: on lisinopril and metoprolol #Hyperlipidemia: on statin #Peripheral vascular disease: #Depression and anxiety: on buspirone and duloxetine as well as sertraline DVT prophylaxis: on therapeutic lovenox pending Duplex of LEs to rule out DVT Medications at Discharge Home Medications pravastatin 40 mg tablet 40 mg PO QHS CHOLESTEROL 01/17/18 methenamine hippurate 1 gram tablet 1 g PO BID URINARY 04/12/20 duloxetine 60 mg capsule,delayed release 60 mg PO DAILY mental health 06/07/20 lisinopril 10 mg tablet 10 mg PO DAILY BP 06/07/20 metoprolol succinate 50 mg tablet,extended release 24 hr 50 mg PO DAILY HEART 06/07/20 fluticasone furoate 100 mcg-vilanterol 25 mcg/dose inhalation powder (Breo Ellipta) 1 inh inhalation DAILY breathing 08/03/21 gabapentin 300 mg capsule 300 mg PO TID NERVE 08/03/21 buspirone 5 mg tablet 5 mg PO DAILY DEPRESSION 02/13/22 cholecalciferol (vitamin D3) 100 mcg (4,000 unit) tablet 100 mcg PO DAILY SUPPLEMENT 02/13/22 estradiol 0.01% (0.1 mg/gram) vaginal cream 1 appful vaginal MOWEFR UTI 02/13/22 naloxone 4 mg/actuation nasal spray 1 spray intranasal Q2-3M PRN OVERDOSE 02/13/22 ondansetron HCl 4 mg tablet 4 mg PO Q8H PRN Nausea 02/13/22 polyethylene glycol 3350 17 gram oral powder packet 17 g PO DAILY PRN CONSTIPATION 02/13/22 pomegranate fruit extract 250 mg capsule 500 mg PO DINNER SUPPLEMENT 02/13/22 sennosides 8.6 mg-docusate sodium 50 mg tablet 1 tab PO BID PRN CONSTIPATION 02/13/22 [id number] acid 0.4 mg-lycopene 300 mcg-lutein 250 mcg tablet (Centrum Silver) 1 tab PO DAILY vitamin 06/14/22 albuterol sulfate 90 mcg/actuation aerosol inhaler 2 inh inhalation Q4H PRN SOB/WHEEZING 08/15/22 Proheal 30 ml PO/SL BID 09/20/22 ULTRAFLORA IMMUNE HEALTH 170 mg PO/SL DAILY GUT HEALTH 09/20/22 acetaminophen 500 mg tablet 500 mg PO Q6H PRN Pain 09/20/22 albuterol sulfate 2.5 mg/3 mL (0.083 %) solution for nebulization 2.5 mg inhalation Q4H PRN SOB/WHEEZING 09/20/22 furosemide 40 mg tablet (Lasix) 40 mg PO DAILY EDEMA/SOB 09/20/22 guaifenesin 100 mg/5 mL oral liquid (Siltussin SA) 200 mg PO Q6H PRN COUGH/SORE THROAT 09/20/22 melatonin 5 mg tablet 5 mg PO QHS SLEEP 09/20/22 sertraline 100 mg tablet 200 mg PO DAILY DEPRESSION 09/20/22 hydrocortisone 1 % topical cream (Preparation H Hydrocortisone) 1 applic topical TID PRN Hemorrhoids 09/21/22 levofloxacin 500 mg tablet 500 mg PO DAILY infection #5 tabs 09/22/22 methadone 10 mg tablet 10 mg PO QHS pain 3 days #3 tabs 09/22/22 buspirone 5 mg tablet 5 mg PO TID mental health 03/14/23 oxycodone-acetaminophen 5 mg-325 mg tablet (Percocet) 1 tab PO TID PRN pain 03/14/23 menthol 4 % topical gel (Biofreeze (menthol)) 1 applic topical BID PRN pain 09/21/23 polyethylene glycol 3350 17 gram/dose oral powder (ClearLax) 17 g PO DAILY PRN constipation 09/21/23 prednisone 20 mg tablet 40 mg (2 x 20 mg) PO DAILY #10 tabs 09/24/23 Hospital Course Operations None Procedures None Summary of Care Provided Minutes Spent on Discharge: 48 Hospital Course: Patient is a 78-year-old female with an extensive past medical history as outlined including chronic respiratory failure on 2 L of oxygen due to COPD. She was admitted through the ED on 09/21/2023 with a complaint of shortness of breath with associated fever and chills and flulike symptoms. His symptoms are started for about a week prior to admission and she had assisted malaise and fatigue as well as decreased appetite. On admission chest x-ray showed atelectasis but no obvious infiltrate. D-dimer was elevated at 5.02. Respiratory panel was negative and COVID was negative. She was admitted and managed for acute on chronic respiratory failure due to COPD exacerbation. Due to her elevated D-dimer a CT of the chest was done which was negative for any evidence of PE. She was started on therapeutic Lovenox due to the markedly elevated D-dimer until the DVT of the lower extremities was ruled out. She did have duplex of the lower extremities which ruled out DVT. Therapeutic Lovenox w as therefore discontinued. His shortness of breath gradually improved and she was weaned down to her baseline 2 L of oxygen. She was also placed on IV Solu- Medrol which helped with her symptoms. She remained stable and was discharged back to her [facility] facility on 09/24/2023. She is follow-up with her primary care doctor within 1 to 2 weeks. Patient seen and examined prior to discharge. She had no complaints. Review of systems otherwise negative. Labs and vitals reviewed. Home medication reviewed and reconciled. Physical Exam Const alert, oriented x3 and no apparent distress General Appearance: cooperative HEENT normocephalic, head/scalp atraumatic, hearing grossly normal bilaterally, moist oral mucous membranes and oropharynx normal Mouth: oral and palatal mucosa normal Eyes PERRL, EOMs intact bilaterally and conjunctivae normal Neck no lymphadenopathy and supple Lymph Lymphatic: no lymphadenopathy noted and no lymphedema noted Resp Resp Narrative: moderately diminished breath sounds bibasally, no wheezes or crackles. On 2L of oxygen by nasal canula Auscultation: wheezes Cardio regular rate, regular rhythm, S1 normal heart sound, S2 normal heart sound and no murmurs GI normal to inspection, nondistended, normoactive bowel sounds, soft to palpation, non-tender and non-distended GI Narrative: Morbidly obese. Extremity normal to inspection, full ROM, normal capillary refill and no calf tenderness Extremity Narrative: mild 1+ bipedal edema General Extremity: no tenderness to palpation of joints or extremities Skin General Skin Exam: no breakdown Neuro oriented x3, CN's II-XII intact bilaterally, moves all extremities, no focal motor deficits, no sensory deficits noted and deep tendon reflexes 2+ bilaterally Sensorium / Orientation: awake, alert, oriented to person, oriented to place and oriented to time Speech: speech normal Motor Exam: strength 5/5 throughout and general weakness Psych thought process normal, cooperative and affect normal Appearance: appropriate Weight / BMI Weight Weight: 211 lb 3.245 oz Body Mass Index (BMI) 41.2 ABG / Lab / Microbiology Data 09/24/23 06:10 09/24/23 06:10 Laboratory: Laboratory Results - last 24 hr 09/21/23 20:25: Diff Path Review Reviewed 09/24/23 06:10: WBC 8.8, RBC 3.18 L, Hgb 9.6 L, Hct 31.0 L, MCV 97.5, MCH 30.2, MCHC 31.0 L, RDW Std Deviation 47.1 H, RDW Coeff of Zach 13.0, Plt Count 335, MPV 9.4, Immature Gran % (Auto) 4.000 H, Neut % (Auto) 76.5 H, Lymph % (Auto) 13.2 L , Meigs % (Auto) 5.8, Eos % (Auto) 0.0, Baso % (Auto) 0.5, Absolute Neuts (auto) 6.7, Absolute Lymphs (auto) 1.16, Nucleated RBC % 0, Sodium 138, Potassium 3.7, Chloride 108 H, Carbon Dioxide 25.0, Anion Gap 5, BUN 39 H, Creatinine 1.08 H, Estim Creat Clear Calc 44.47, Est GFR (MDRD) Af Amer 63, Est GFR (MDRD) Non-Af 52 L, BUN/Creatinine Ratio 36.1 H, Glucose 138 H, Calcium 9.4 Microbiology: Microbiology 09/21/23 20:40 Blood Culture (Wb) - Right Hand Blood Culture - Preliminary No growth in 48 hours. 09/21/23 21:35 Blood Culture (Wb) - Left Hand Bacteria Detection (PCR) - Final Staphylococcus epidermidis mecA Resistance Marker 09/21/23 21:35 Blood Culture (Wb) - Left Hand Blood Culture - Preliminary Staphylococcus epidermidis 09/21/23 20:50 Mucosa - Nasopharyngeal SARS-CoV-2, Influenza & RSV (PCR) - Final Radiography Diagnostic Testing: Radiology Impression Venous Doppler Study 09/22/23 05:23 Interpretation Summary No evidence for acute deep venous thrombosis bilateral lower extremities with patent and compressible bilateral great saphenous veins. Ordering Physician: Jovanni Dobbs Referring Physician: Wolf Berry Performed By: Kathe Gould RDCS, RVT D/C Instructions Discharge Diet: Low fat / Low cholesterol Discharge Activity: Return to Normal Activity Weight Bearing Status: Weight bearing as tolerated Call your doctor if you observe: Fever of 101 or Higher, Shortness of breath, Dizziness, Swelling in the ankles and Chest pain Meaningful Use Info Meaningful Use Diagnoses (Choose all that apply): None applicable Discharge Plan Admission Admit Date/Time: 09/21/23 23:54 Primary Reason for Your Visit: COPD exacerbation Attending Provider: Mary Cobos Primary Care Provider: Wolf Berry Consulting Providers: Jovanni Dobbs; Germain Pettit Instructions Patient Instructions: COPD Meds Discharge Orders/Prescriptions Prescriptions: New prednisone 20 mg tablet 40 mg PO DAILY Qty: 10 0RF Continued pravastatin 40 mg tablet 40 mg PO QHS duloxetine 60 mg capsule,delayed release(DR/EC) 60 mg PO DAILY lisinopril 10 mg tablet 10 mg PO DAILY metoprolol succinate 50 mg tablet extended release 24 hr 50 mg PO DAILY fluticasone furoate-vilanterol [Breo Ellipta] 100-25 mcg/dose blister with device 1 inh inhalation DAILY buspirone 5 mg tablet 5 mg PO TID buspirone 5 mg tablet 5 mg PO DAILY estradiol 0.01 % (0.1 mg/gram) cream 1 appful vaginal MOWEFR naloxone 4 mg/actuation spray,non-aerosol 1 spray intranasal Q2-3M PRN (Reason: OVERDOSE) Rx Instructions: spray 1 dose into ONE nostril; alternate nostrils w each dose until help arrives pomegranate fruit extract 250 mg capsule 500 mg PO DINNER cholecalciferol (vitamin D3) 100 mcg (4,000 unit) tablet 100 mcg PO DAILY albuterol sulfate 90 mcg/actuation HFA aerosol inhaler 2 inh inhalation Q4H PRN (Reason: SOB/WHEEZING) oxycodone-acetaminophen [Percocet] 5-325 mg tablet 1 tab PO TID PRN (Reason: pain) Centrum Silver 0.4 mg-300 mcg- 250 mcg tablet 1 tab PO DAILY polyethylene glycol 3350 17 gram powder in packet 17 g PO DAILY PRN (Reason: CONSTIPATION) methenamine hippurate 1 GM tablet 1 g PO BID Hold Instructions: Resume on 09/27/22. Rx Instructions: this can be used ongoing for prevention of uti. gabapentin 300 mg capsule 300 mg PO TID ondansetron HCl 4 mg tablet 4 mg PO Q8H PRN (Reason: Nausea) sennosides-docusate sodium 8.6-50 mg tablet 1 tab PO BID PRN (Reason: CONSTIPATION) albuterol sulfate 2.5 mg /3 mL (0.083 %) Solution For Nebulization 2.5 mg INHALATION Q4H PRN (Reason: SOB/WHEEZING) sertraline 100 mg tablet 200 mg PO DAILY acetaminophen 500 mg Tablet 500 mg PO Q6H PRN (Reason: Pain) guaifenesin [Siltussin SA] 100 mg/5 mL Liquid 200 mg PO Q6H PRN (Reason: COUGH/SORE THROAT) melatonin 5 mg Tablet 5 mg PO QHS Proheal 30 ml PO/SL BID ULTRAFLORA IMMUNE HEALTH 170 mg PO/SL DAILY furosemide [Lasix] 40 mg tablet 40 mg PO DAILY hydrocortisone [Preparation H Hydrocortisone] 1 % Cream 1 applic TOPICAL TID PRN (Reason: Hemorrhoids) levofloxacin 500 mg tablet 500 mg PO DAILY Qty: 5 0RF methadone 10 MG tablet 10 mg PO QHS 3 Days Qty: 3 0RF Biofreeze (menthol) 4 % gel 1 applic topical BID PRN (Reason: pain) Rx Instructions: apply to shoulder and lower back polyethylene glycol 3350 [ClearLax] 17 gram/dose powder 17 g PO DAILY PRN (Reason: constipation) Discontinued prednisone 20 mg tablet 40 mg PO DAILY 5 Days Qty: 10 0RF Referrals / Follow Up: Wolf Berry MD [Primary Care Provider] - Within 1 Week Disposition Disposition (needs filled in before D/C Order can be placed): [facility] Charges/Coding Visit Charges Inpatient E&M: 78079 Disch Hosp >30min
--- NOTE | 2023-09-24 12:33 | CASEMGMT ---
Discharge Planning Discharge orders, signed med list, and transport time sent to [facility]. Physicians will transport patient by cot at 2p. Nursing, SW, patient, and her daughter updated. María Aragon, Discharge Planning Asst.
[2023-09-24] MEDS: Oxycodone/Apap 5/325 Tablet PO (13:49)
== END 2023-09-24 14:36 | disposition skilled nursing facility (03) | DRG 193 ==
LOC: ED 21:08 → PCU 23:52
PROVIDERS: Family Medicine; Physician Assistant; Admitting Provider Internal Medicine; Emergency Provider Emergency Medicine; PCP Family Medicine; Visit Provider Student in an Organized Health Care Education/Training Program
DX: J18.9 Pneumonia, unspecified organism (principal); J96.21 Acute and chronic respiratory failure with hypoxia; I42.8 Other cardiomyopathies; J44.0 Chronic obstructive pulmonary disease with (acute) lower respiratory infection; Z68.41 Body mass index [BMI] 40.0-44.9, adult; J44.1 Chronic obstructive pulmonary disease with (acute) exacerbation; I73.9 Peripheral vascular disease, unspecified; E66.01 Morbid (severe) obesity due to excess calories; I10 Essential (primary) hypertension; F32.A Depression, unspecified; E78.5 Hyperlipidemia, unspecified; F41.9 Anxiety disorder, unspecified; M51.34 Other intervertebral disc degeneration, thoracic region; G89.29 Other chronic pain; R79.1 Abnormal coagulation profile; Z66 Do not resuscitate; Z20.828 Contact with and (suspected) exposure to other viral communicable diseases; Z99.81 Dependence on supplemental oxygen; Z79.51 Long term (current) use of inhaled steroids; Z79.891 Long term (current) use of opiate analgesic; Z79.899 Other long term (current) drug therapy; Z86.14 Personal history of Methicillin resistant Staphylococcus aureus infection
CPT/HCPCS: 36415; 36600; 71045; 71275; 80048; 80053; 82803; 83605; 83735; 84100; 84443; 84484; 85025; 85379; 87040; 87149; 87631; 93005; 93970; 94002; 94640; 94668; 94762; 97802; 99285; J7030; J7040; Q9967; A4216; J2405

== ENCOUNTER → 2024-03-11 | Outpatient (CLI) | payer MEDICARE, OTHER, MEDICAID, SELFPAY ==
[2024-03-11 21:57] LABS: Color, Urine Yellow (Yellow); Glucose, Dipstick Normal (Normal); Ketone-Dipstick Negative (Negative); Leukocyte Esterase-Dipstick 500 /ul (Negative); Nitrite-Dipstick Positive (Negative); Occult Blood-Urine 25 /ul (Negative); Protein-Dipstick 30 mg/dl (Negative); Urine Bilirubin Dipstick Negative (Negative); Urine Clarity Sl. Cloudy (Clear); Urine Urobilinogen Normal (Normal); Urine pH 6.5 (5.0 - 8.0)
== END | disposition home or self-care (01) ==
LOC: MTLAB 14:40
PROVIDERS: PCP Family Medicine; Referring Provider Family Medicine; Visit Provider Family Medicine
DX: N39.0 Urinary tract infection, site not specified (principal)
CPT/HCPCS: 81002; 87077; 87086; 87088; 87186

== ENCOUNTER 2024-03-14 14:55 | Inpatient (IN) | payer MEDICARE, OTHER, MEDICAID, SELFPAY ==
[2024-03-14] VITALS (7 sets, daily range): BP systolic 118–138; BP diastolic 57–103; PULSE 58–69; RESP 12–18; TEMP 36.8–37.1; O2SAT 94–100; BMI 41.1
--- NOTE | 2024-03-14 15:22 | EX.ED.DYSGE1 ---
HPI History of Present Illness Chief Complaint: Complaint Detail of Chief Complaint: Urinary tract infection Informant: patient Narrative Narrative: Patient presents to the emergency department complaint of urinary tract infection. Patient states that she is currently at a senior living and has been having dysuria for 2-1/2 weeks. Patient states that she had bumped her leg and they gave her some antibiotics for the infection in her leg and they thought it would clear her urine. Patient continued to have symptoms and some discomfort in her back so they did a straight cath recently and she grew out bacteria only sensitive to IV antibiotics which they cannot give her at the senior living. Patient also has multiple drug allergies. She denies fevers or chills or sweats. She denies vomiting. [facility] Medical History (Updated 03/14/24 @ 17:[address] Vikas Ray ) Hyperlipidemia Acute hypoxic respiratory failure Vertebral osteomyelitis Abnormal spinal diagnostic imaging History of COPD History of hypertension Fatigue Non-ischemic cardiomyopathy Abnormal CT of thoracic spine Soft tissue mass Vitamin D deficiency Depression Anxiety Chronic back pain Chronic obstructive pulmonary disease Venous insufficiency of right leg PVD (peripheral vascular disease) DDD (degenerative disc disease) COPD (chronic obstructive pulmonary disease) Essential (primary) hypertension MRSA (methicillin resistant staph aureus) culture positive Hemorrhoids Venous ulcer of left lower extremity without varicose veins 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 Foot drop, right Malnutrition Home Medications ?Medication ?Instructions ?Recorded ?Last Taken ?Type pravastatin 40 mg tablet 40 mg PO QHS CHOLESTEROL 01/17/18 09/19/22 History methenamine hippurate 1 gram tablet 1 g PO BID URINARY 04/12/20 09/20/22 History duloxetine 60 mg capsule,delayed 60 mg PO DAILY mental health 06/07/20 09/20/22 History release metoprolol succinate 50 mg 50 mg PO DAILY HEART 06/07/20 09/20/22 History tablet,extended release 24 hr fluticasone furoate 100 1 inh inhalation DAILY breathing 08/03/21 09/20/22 History mcg-vilanterol 25 mcg/dose inhalation powder (Breo Ellipta) gabapentin 300 mg capsule 300 mg PO TID NERVE 08/03/21 09/20/22 History cholecalciferol (vitamin D3) 100 100 mcg PO DAILY SUPPLEMENT 02/13/22 09/20/22 History mcg (4,000 unit) tablet naloxone 4 mg/actuation nasal spray 1 spray intranasal Q2-3M PRN 02/13/22 Unknown History OVERDOSE ondansetron HCl 4 mg tablet 4 mg PO Q8H PRN Nausea 02/13/22 Unknown History sennosides 8.6 mg-docusate sodium 1 tab PO BID PRN CONSTIPATION 02/13/22 09/20/22 History 50 mg tablet zdidcrcw-wvu-jutkn acid 0.4 1 tab PO DAILY vitamin 06/14/22 09/20/22 History mg-lycopene 300 mcg-lutein 250 mcg tablet (Centrum Silver) albuterol sulfate 90 mcg/actuation 2 inh inhalation Q4H PRN 08/15/22 Unknown History aerosol inhaler SOB/WHEEZING ULTRAFLORA IMMUNE HEALTH 170 mg PO/SL DAILY GUT HEALTH 09/20/22 09/19/22 History acetaminophen 500 mg tablet 500 mg PO Q6H PRN Pain 09/20/22 09/17/22 History albuterol sulfate 2.5 mg/3 mL 2.5 mg inhalation Q4H PRN 09/20/22 09/20/22 History (0.083 %) solution for nebulization SOB/WHEEZING guaifenesin 100 mg/5 mL oral 200 mg PO Q6H PRN COUGH/SORE THROAT 09/20/22 09/20/22 History liquid (Siltussin SA) melatonin 5 mg tablet 5 mg PO QHS SLEEP 09/20/22 09/19/22 History sertraline 100 mg tablet 200 mg PO DAILY DEPRESSION 09/20/22 09/20/22 History hydrocortisone 1 % topical cream 1 applic topical TID PRN 09/21/22 Unknown History (Preparation H Hydrocortisone) Hemorrhoids buspirone 5 mg tablet 5 mg PO TID mental health 03/14/23 Unknown History oxycodone-acetaminophen 5 mg-325 1 tab PO TID PRN pain 03/14/23 Unknown History mg tablet (Percocet) menthol 4 % topical gel (Biofreeze 1 applic topical BID PRN pain 09/21/23 Unknown History (menthol)) polyethylene glycol 3350 17 17 g PO DAILY PRN constipation 09/21/23 Unknown History gram/dose oral powder (ClearLax) pomegranate fruit extract 250 mg 250 mg PO DINNER SUPPLEMENT 03/12/24 Unknown History capsule bisacodyl 10 mg rectal suppository 10 mg [place] DAILY PRN constipation 03/14/24 Unknown History estradiol 0.01% (0.1 mg/gram) 1 appful vaginal .COMPLEX 03/14/24 Unknown History vaginal cream magnesium hydroxide 400 mg/5 mL 30 ml PO DAILY PRN constipation 03/14/24 Unknown History oral suspension (Dulcolax (magnesium hydroxide)) mineral oil (Hmjuo-Gl-Shw Enema 118 ml [place] DAILY PRN constipation 03/14/24 Unknown History (mineral oil)) Allergy/AdvReac Type Severity Reaction Status Date / Time morphine Allergy Unknown unknown Verified 03/14/24 14:56 amoxicillin (From Augmentin) AdvReac Nausea/Vom/ Verified 03/14/24 14:56 Diarrhea clavulanic acid (From AdvReac Nausea/Vom/ Verified 03/14/24 14:56 Augmentin) Diarrhea nitrofurantoin AdvReac Vomiting Verified 03/14/24 14:56 macrocrystalline (From Macrodantin) sulfamethoxazole (From AdvReac Nausea/Vom/ Verified 03/14/24 14:56 Bactrim) Diarrhea trimethoprim (From Bactrim) AdvReac Nausea/Vom/ Verified 03/14/24 14:56 Diarrhea Family History Father Hypertension Mother Diabetes Hypertension Brother Diabetes Brother Cancer Sister Hypertension Surgical History History of incisional hernia repair Hx of repair of rotator cuff History of hip replacement History of hysterectomy Social History Smoking Status: Never smoker alcohol intake: never substance use type: does not use caffeine: Yes Type: coffee Number of servings: 2 what type of physical activity do you participate in: none additional social history: Lives [facility] ROS ROS ED Review of Systems ROS Unobtainable: other Constitutional Constitutional ED: Reports lethargy; Denies chills, fever(s), sweats or weight loss Eyes Eyes: Denies blurry vision, change in vision or diplopia ENT ENT ED: Denies rhinorrhea or sore throat Cardiovascular Cardiovascular: Denies chest pain, orthopnea or racing heartbeat Respiratory/Chest Respiratory/Chest: Denies cough, dyspnea, dyspnea on exertion, orthopnea or sputum Gastrointestinal Gastrointestinal: Denies abdominal pain, diarrhea, nausea or vomiting Genitourinary Genitourinary ED: Reports dysuria; Denies hematuria or urinary frequency Musculoskeletal Musculoskeletal: Denies arthralgias, back pain, myalgias or neck pain Integumentary Denies abscess, Abrasions or rash Neurologic Neurologic: Denies headache(s) or weakness Psychiatric Psychiatric: Denies anxiety, depression or suicidal thoughts Endocrine Endocrinology: Denies polydipsia, polyphagia or polyuria Hematologic/Lymphatic Hematologic/Lymphatic: Denies easy bleeding, easy bruising or lymphadenopathy Allergic/Immunologic Allergic/Immunologic ED: Denies mouth swelling, tongue swelling or urticaria EXAM Physical Exam Const Vital Signs: 03/14/24 14:56 03/14/24 14:57 Temperature 98.5 F 98.5 F Temperature Source Oral Oral Pulse Rate 64 64 Respiratory Rate 14 12 Pulse Ox 100 100 Oxygen Delivery Method Room Air Room Air Positive well nourished and well developed General Appearance ED: well developed and NAD HEENT Reports TM's clear and moist mucous membranes normocephalic and atraumatic; Negative for trauma or tenderness Tympanic Membrane ED: Yes TM's clear Eyes PERRL and EOMs intact bilaterally General Eye ED: Negative for pale conjunctiva or scleral icterus Neck no lymphadenopathy, supple and no JVD General: Negative for tenderness Chest Wall inspection of chest normal and palpation of chest normal Chest: Negative for tenderness Resp normal respiratory effort and clear to auscultation bilaterally Effort and Inspection: Negative for respiratory distress or pain with movement Auscultation: Negative for rhonchi, wheezes or diminished lung sounds Cardio regular rate, regular rhythm, S1 normal heart sound, S2 normal heart sound and no murmurs Peripheral Pulses: pulses 2+ throughout GI normal to inspection, nondistended, normoactive bowel sounds, soft to palpation, non-tender, non-distended and no masses Back/Spine no CVA tenderness and no thoracic nor lumbar tenderness Extremity normal to inspection General Extremety ED: Negative for edema General Extremity: Negative for edema Neuro oriented x3, CN's II-XII intact bilaterally, no sensory deficits noted and gait normal Sensorium / Orientation: awake, alert, oriented to person, oriented to place and oriented to time Motor Exam: strength 5/5 throughout and strength abnormal Psych mental status grossly normal Skin no rashes or lesions noted and no wounds MDM MDM MDM Narrative Medical decision making narrative: Patient presents with UTI with culture that was performed that is sensitive only to IV antibiotics given that she has multiple other allergies. Patient will have basic labs ordered and will be started on gentamicin IV. CBC with differential obtained was unremarkable. Chemistries unremarkable. Lactate was normal. I did send off blood cultures. Will discuss case with hospitalist to evaluate patient for admission. Lab Data Attestation: I reviewed the patient's lab results. Discharge Plan Triage Chief Complaint: Complaint ED Provider: Vikas Ray Dx/Rx/DC Orders Clinical Impression: Acute UTI, History of COPD, Hx of hypercholesterolemia Prescriptions: No Action pravastatin 40 mg tablet 40 mg PO QHS duloxetine 60 mg capsule,delayed release(DR/EC) 60 mg PO DAILY metoprolol succinate 50 mg tablet extended release 24 hr 50 mg PO DAILY fluticasone furoate-vilanterol [Breo Ellipta] 100-25 mcg/dose blister with device 1 inh inhalation DAILY buspirone 5 mg tablet 5 mg PO TID naloxone 4 mg/actuation spray,non-aerosol 1 spray intranasal Q2-3M PRN (Reason: OVERDOSE) Rx Instructions: spray 1 dose into ONE nostril; alternate nostrils w each dose until help arrives cholecalciferol (vitamin D3) 100 mcg (4,000 unit) tablet 100 mcg PO DAILY pomegranate fruit extract 250 mg capsule 250 mg PO DINNER albuterol sulfate 90 mcg/actuation HFA aerosol inhaler 2 inh inhalation Q4H PRN (Reason: SOB/WHEEZING) oxycodone-acetaminophen [Percocet] 5-325 mg tablet 1 tab PO TID PRN (Reason: pain) Centrum Silver 0.4 mg-300 mcg- 250 mcg tablet 1 tab PO DAILY methenamine hippurate 1 GM tablet 1 g PO BID Rx Instructions: this can be used ongoing for prevention of uti. gabapentin 300 mg capsule 300 mg PO TID ondansetron HCl 4 mg tablet 4 mg PO Q8H PRN (Reason: Nausea) sennosides-docusate sodium 8.6-50 mg tablet 1 tab PO BID PRN (Reason: CONSTIPATION) albuterol sulfate 2.5 mg /3 mL (0.083 %) Solution For Nebulization 2.5 mg INHALATION Q4H PRN (Reason: SOB/WHEEZING) sertraline 100 mg tablet 200 mg PO DAILY acetaminophen 500 mg Tablet 500 mg PO Q6H PRN (Reason: Pain) guaifenesin [Siltussin SA] 100 mg/5 mL Liquid 200 mg PO Q6H PRN (Reason: COUGH/SORE THROAT) melatonin 5 mg Tablet 5 mg PO QHS ULTRAFLORA IMMUNE HEALTH 170 mg PO/SL DAILY hydrocortisone [Preparation H Hydrocortisone] 1 % Cream 1 applic TOPICAL TID PRN (Reason: Hemorrhoids) Biofreeze (menthol) 4 % gel 1 applic topical BID PRN (Reason: pain) Rx Instructions: apply to shoulder and lower back polyethylene glycol 3350 [ClearLax] 17 gram/dose powder 17 g PO DAILY PRN (Reason: constipation) Primary Care Provider: Wolf Berry Referrals: Wolf Berry MD [Primary Care Provider] - Print Language: Armenian [facility]
[2024-03-14] MEDS: 0.9% Normal Saline (1000mL) 1,000 ML 150 ML IV (15:33)
[2024-03-14 15:39] LABS: Absolute Lymphocyte Count 2.54 X10^3/uL (0.83-4.51); Absolute Neutrophil Count 3.9 X10^3/uL (2.0-7.7); Basophil# 0.03 X10^3/uL; Basophil% 0.4 % (0-1); Eosinophil# 0.33 X10^3/uL; Eosinophils% 4.4 % (0-5); Hematocrit 37.1 % (37-47); Hemoglobin 11.2 g/dL (12.0-15.0); Lymphocyte # 2.54 X10^3/ul (0.83-4.51); Lymphocyte % 34.2 % (19-41); Mean Corp Hgb Conc 30.2 g/dL (32-36); Mean Corpuscular Hgb 29.9 pg (27.0-32.0); Mean Corpuscular Volume 99.2 fL (81-99); Mean Platelet Vol. 10.6 fl (6.2-12.0); Monocyte# 0.59 X10^3/uL; NRBC Flagged by Analyzer 0 % (0-5); Neutrophil # 3.91 X10^3/uL (2.7-7.7); Neutrophil % 52.7 % (47-70); Platelet Count 283 K/mm3 (150-450); RBC Distribution Width CV 13.3 % (11.6-14.6); RBC Distribution Width SD 48.2 fl (35.1-43.9); Red Blood Count 3.74 M/mm3 (4.2-5.4); White Blood Count 7.4 K/mm3 (4.4-11.0)
[2024-03-14 15:59] LABS: Anion Gap 3 (5-15); BUN 33 mg/dL (7-18); BUN/Creat Ratio 24.4 RATIO (10-20); Calcium,Total 9.6 mg/dL (8.5-10.1); Chloride 108 mmol/L (98-107); Creatinine, Serum 1.35 mg/dL (0.55-1.02); EST Glomerular Filtration Rate 40 mL/min (>60); Est Glom Filt Rate - Afr Amer 49 mL/min (>60); Estimated Creatinine Clearance 35.49 ml/min; Glucose 136 mg/dL (74-106); Potassium 3.8 mmol/L (3.5-5.1); Sodium Level 138 mmol/L (136-145)
[2024-03-14 16:20] LABS: Lactic Acid 0.9 mmol/L (0.4-1.9)
[2024-03-14] MEDS: Gentamicin IV 250 MG in Dextrose 5%-Water (50mL Bag) 50 ML 100 MG IVPB (16:31)
--- NOTE | 2024-03-14 17:34 | HP.PCM.HOS_ITS ---
HPI - General General Date of Admission: 03/14/24 Date of Service: 03/14/24 Chief Complaint: Positive urine cultures HPI Narrative CAMILLA HAWLEY, is a 78 F resident at an extended care facility who was sent to the emergency department after receipt of positive urine cultures. Patient apparently has multiple antibiotic allergies. [facility] could not be treated with oral antibiotics given her allergies and the sensitivity profile hence the decision to send patient to the emergency department. On further questioning patient did admit having experienced painful urination for almost 2 weeks. She however denied any subjective fever no chills. Did review patient urine cultures which came back positive for Proteus. Subsequently admitted to regular nursing floor for inpatient management [facility] Medical History (Updated 03/14/24 @ 17:[address] Vikas Ray, ) Hyperlipidemia Acute hypoxic respiratory failure Vertebral osteomyelitis Abnormal spinal diagnostic imaging History of COPD History of hypertension Fatigue Non-ischemic cardiomyopathy Abnormal CT of thoracic spine Soft tissue mass Vitamin D deficiency Depression Anxiety Chronic back pain Chronic obstructive pulmonary disease Venous insufficiency of right leg PVD (peripheral vascular disease) DDD (degenerative disc disease) COPD (chronic obstructive pulmonary disease) Essential (primary) hypertension MRSA (methicillin resistant staph aureus) culture positive Hemorrhoids Venous ulcer of left lower extremity without varicose veins 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 Foot drop, right Malnutrition Home Medications ?Medication ?Instructions ?Recorded ?Last Taken ?Type pravastatin 40 mg tablet 40 mg PO QHS CHOLESTEROL 01/17/18 09/19/22 History methenamine hippurate 1 gram tablet 1 g PO BID URINARY 04/12/20 09/20/22 History duloxetine 60 mg capsule,delayed 60 mg PO DAILY mental health 06/07/20 09/20/22 History release metoprolol succinate 50 mg 50 mg PO DAILY HEART 06/07/20 09/20/22 History tablet,extended release 24 hr fluticasone furoate 100 1 inh inhalation DAILY breathing 08/03/21 09/20/22 History mcg-vilanterol 25 mcg/dose inhalation powder (Breo Ellipta) gabapentin 300 mg capsule 300 mg PO TID NERVE 08/03/21 09/20/22 History cholecalciferol (vitamin D3) 100 100 mcg PO DAILY SUPPLEMENT 02/13/22 09/20/22 History mcg (4,000 unit) tablet naloxone 4 mg/actuation nasal spray 1 spray intranasal Q2-3M PRN 02/13/22 Unknown History OVERDOSE ondansetron HCl 4 mg tablet 4 mg PO Q8H PRN Nausea 02/13/22 Unknown History sennosides 8.6 mg-docusate sodium 1 tab PO BID PRN CONSTIPATION 02/13/22 09/20/22 History 50 mg tablet ltuoyslf-osq-jdbwb acid 0.4 1 tab PO DAILY vitamin 06/14/22 09/20/22 History mg-lycopene 300 mcg-lutein 250 mcg tablet (Centrum Silver) albuterol sulfate 90 mcg/actuation 2 inh inhalation Q4H PRN 08/15/22 Unknown History aerosol inhaler SOB/WHEEZING ULTRAFLORA IMMUNE HEALTH 170 mg PO/SL DAILY GUT HEALTH 09/20/22 09/19/22 History acetaminophen 500 mg tablet 500 mg PO Q6H PRN Pain 09/20/22 09/17/22 History albuterol sulfate 2.5 mg/3 mL 2.5 mg inhalation Q4H PRN 09/20/22 09/20/22 History (0.083 %) solution for nebulization SOB/WHEEZING guaifenesin 100 mg/5 mL oral 200 mg PO Q6H PRN COUGH/SORE THROAT 09/20/22 09/20/22 History liquid (Siltussin SA) melatonin 5 mg tablet 5 mg PO QHS SLEEP 09/20/22 09/19/22 History sertraline 100 mg tablet 200 mg PO DAILY DEPRESSION 09/20/22 09/20/22 History hydrocortisone 1 % topical cream 1 applic topical TID PRN 09/21/22 Unknown History (Preparation H Hydrocortisone) Hemorrhoids buspirone 5 mg tablet 5 mg PO TID mental health 03/14/23 Unknown History oxycodone-acetaminophen 5 mg-325 1 tab PO TID PRN pain 03/14/23 Unknown History mg tablet (Percocet) menthol 4 % topical gel (Biofreeze 1 applic topical BID PRN pain 09/21/23 Unknown History (menthol)) polyethylene glycol 3350 17 17 g PO DAILY PRN constipation 09/21/23 Unknown History gram/dose oral powder (ClearLax) pomegranate fruit extract 250 mg 250 mg PO DINNER SUPPLEMENT 03/12/24 Unknown History capsule bisacodyl 10 mg rectal suppository 10 mg [place] DAILY PRN constipation 03/14/24 Unknown History estradiol 0.01% (0.1 mg/gram) 1 appful vaginal .COMPLEX 03/14/24 Unknown History vaginal cream magnesium hydroxide 400 mg/5 mL 30 ml PO DAILY PRN constipation 03/14/24 Unknown History oral suspension (Dulcolax (magnesium hydroxide)) mineral oil (Glxtk-Zj-Htk Enema 118 ml [place] DAILY PRN constipation 03/14/24 Unknown History (mineral oil)) Allergy/AdvReac Type Severity Reaction Status Date / Time morphine Allergy Unknown unknown Verified 03/14/24 14:56 amoxicillin (From Augmentin) AdvReac Nausea/Vom/ Verified 03/14/24 14:56 Diarrhea clavulanic acid (From AdvReac Nausea/Vom/ Verified 03/14/24 14:56 Augmentin) Diarrhea nitrofurantoin AdvReac Vomiting Verified 03/14/24 14:56 macrocrystalline (From Macrodantin) sulfamethoxazole (From AdvReac Nausea/Vom/ Verified 03/14/24 14:56 Bactrim) Diarrhea trimethoprim (From Bactrim) AdvReac Nausea/Vom/ Verified 03/14/24 14:56 Diarrhea Family History Father Hypertension Mother Diabetes Hypertension Brother Diabetes Brother Cancer Sister Hypertension Surgical History History of incisional hernia repair Hx of repair of rotator cuff History of hip replacement History of hysterectomy Social History Smoking Status: Never smoker alcohol intake: never substance use type: does not use caffeine: Yes Type: coffee Number of servings: 2 what type of physical activity do you participate in: none additional social history: Lives at [facility] Narrative GENERAL: denies fever, chills, night sweats, HEENT: denies headache, sinus congestion, RESPIRATORY: denies cough, sputum production, CARDIAC: denies chest pain, palpitations, orthopnea, GASTROINTESTINAL: denies abdominal pain, nausea, , GENITOURINARY: dysuria, urgency, EXTREMITY: denies swelling MUSCULOSKELETAL: denies current joint pain or tenderness NEUROLOGIC: denies focal numbness, weakness, tingling HEMATOLOGIC: denies easy bruising and/or hemorrhage INTEGUMENT: denies rashes PSYCHIATRIC: denies suicidal or homicidal ideation Vital Signs Vital Signs Vital Signs: 03/14/24 14:56 03/14/24 14:57 03/14/24 15:36 Temperature 98.5 F 98.5 F 98.3 F Temperature Source Oral Oral Oral Pulse Rate 64 64 69 Respiratory Rate 14 12 16 Blood Pressure 132/57 H Blood Pressure Mean 82 Pulse Ox 100 100 98 Oxygen Delivery Method Room Air Room Air Room Air 03/14/24 16:00 03/14/24 17:00 03/14/24 17:32 Temperature 98.4 F 98.5 F 98.4 F Temperature Source Oral Temporal Pulse Rate 60 58 L 60 Respiratory Rate 18 18 16 Blood Pressure 137/103 H 138/64 H 129/72 H Blood Pressure Mean 114 88 91 Pulse Ox 99 95 95 Oxygen Delivery Method Room Air Weight Weight: 95.4 kg Body Mass Index (BMI) 41.1 Physical Exam Narrative GENERAL: cooperative HEENT: Atraumatic; normocephalic EYES; Anicteric, Normal Conjunctiva NECK; supple, normal thyroid, RESPIRATORY: Diminished to auscultation CARDIOVASCULAR: Regular S1 S2, GI: soft, normoactive bowel sounds, : No Renal angle tenderness; EXTREMITIES: No edema, no clubbing, MUSCULOSKELETAL: no muscle wasting NEURO: Awake; no lateralizing signs. SKIN: No Rash PSYCH; Flat affect Results Lab / Micro Data 03/14/24 14:39 03/14/24 14:39 Labs: Laboratory Results - last 24 hr 03/14/24 14:39: WBC 7.4, RBC 3.74 L, Hgb 11.2 L, Hct 37.1, MCV 99.2 H, MCH 29.9, MCHC 30.2 L, RDW Std Deviation 48.2 H, RDW Coeff of Zach 13.3, Plt Count 283, MPV 10.6, Immature Gran % (Auto) 0.300, Neut % (Auto) 52.7, Lymph % (Auto) 34.2, Maries % (Auto) 8.0, Eos % (Auto) 4.4, Baso % (Auto) 0.4, Absolute Neuts (auto) 3.9, Absolute Lymphs (auto) 2.54, Nucleated RBC % 0, Sodium 138, Potassium 3.8, Chloride 108 H, Carbon Dioxide 27.0, Anion Gap 3 L, BUN 33 H, Creatinine 1.35 H, Estim Creat Clear Calc 35.49, Est GFR (MDRD) Af Amer 49 L, Est GFR (MDRD) Non-Af 40 L, BUN/Creatinine Ratio 24.4 H, Glucose 136 H, Calcium 9.6 03/14/24 15:40: Lactic Acid 0.9 Assessment & Plan Assessment/Plan (1) Acute UTI: PLAN: Plan Patient is a 78-year-old lady resident of extended care facility sent to the ED with positive urine cultures 1. Acute cystitis ? With Proteus mirabilis. Did review patient culture profile in addition to her allergies. Admitted to regular nursing floor started on Invanz. Repeat cultures sent from the ED 2.Acute kidney injury ? Patient baseline creatinine 0.98, creatinine on admission was 1.35 started on IV hydration repeat BMP ordered for a.m. 3. Class III obesity with BMI of 41 ? Complicating care weight loss advised 4. Hypertension - Blood pressure controlled, home medications continued with dose adjustment as needed 5. Chronic pain syndrome ? Plan is to continue patient home pain regimen once medications have been reconciled 6. Depression with anxiety ? Patient is on sertraline and duloxetine did continue 7. Dyslipidemia -Patient is on statin therapy, continued at home dose 8. Physical deconditioning - Requested for PT OT eval and health social work professor to assist with discharge planning 9. DVT prophylaxis ? SC heparin Advance planning; did discuss with the patient regarding advanced directives as well as CODE STATUS. Did explain the various scenarios involved ( FULL CODE, DNR CCA, DNR CCA with no intubation, and DNR CC and what each meant) patient elected to to remain full code with CPR and intubation if needed. Order was placed. Time spent on discussion 16 minutes. Charges/Coding Multi Select Codes Visit Charges Visit Charges: 23384 Init Hosp L2 Hospitalists' Procedures Procedures: 97641 Advncd Care Plan 30 Min
--- NOTE | 2024-03-14 17:34 | ED.RN ---
ATTEMPTED TO CALL REPORT TO THE AVENUE. SPOKE TO OUTBOUND CALL CENTER REPRESENTATIVE, ON HOLD FOR SEVERAL MINUTES AND NEVER CONNECTED TO ANYONE.
--- NOTE | 2024-03-14 17:35 | NURSING ---
MED SURG KITTOE UTI
[2024-03-14] MEDS: 0.9% Normal Saline (1000mL) 1,000 ML 125 ML IV (20:39)
[2024-03-14] MEDS: Ertapenem Sod 1 GM in 0.9% Normal Saline (50mL MB+) 50 ML IV (20:40)
[2024-03-14] MEDS: Heparin Injection (Vial) 5,000 UNIT/ML VIAL 5000 UNIT SC (22:59)
[2024-03-14] MEDS: busPIRone 5 MG Tablet PO (23:00)
[2024-03-14] MEDS: Gabapentin 300 MG Capsule PO (23:00)
[2024-03-14] MEDS: Pravastatin 40 MG Tablet PO (23:00)
[2024-03-14] MEDS: Acetaminophen 325 MG Tablet 650 MG PO (23:05)
[2024-03-14] MEDS: oxyCODONE 5 MG Tablet PO (23:06)
[2024-03-15] VITALS (8 sets, daily range): BP systolic 138–146; BP diastolic 60–78; PULSE 56–78; RESP 18–20; TEMP 36.6–36.8; O2SAT 96–99
[2024-03-15] MEDS: 0.9% Normal Saline (1000mL) 1,000 ML 125 ML IV (05:04)
[2024-03-15] MEDS: Gabapentin 300 MG Capsule PO ×3 (06:11→22:26)
[2024-03-15] MEDS: busPIRone 5 MG Tablet PO ×3 (06:12→22:26)
[2024-03-15] MEDS: Acetaminophen 325 MG Tablet 650 MG PO (06:34)
[2024-03-15] MEDS: oxyCODONE 5 MG Tablet PO (06:34)
[2024-03-15 07:30] LABS: Absolute Lymphocyte Count 2.41 X10^3/uL (0.83-4.51); Absolute Neutrophil Count 3.2 X10^3/uL (2.0-7.7); Basophil# 0.05 X10^3/uL; Basophil% 0.7 % (0-1); Eosinophil# 0.34 X10^3/uL; Eosinophils% 5.1 % (0-5); Hematocrit 34.9 % (37-47); Hemoglobin 10.5 g/dL (12.0-15.0); Lymphocyte # 2.41 X10^3/ul (0.83-4.51); Lymphocyte % 36.1 % (19-41); Mean Corp Hgb Conc 30.1 g/dL (32-36); Mean Corpuscular Hgb 30.1 pg (27.0-32.0); Mean Platelet Vol. 10.2 fl (6.2-12.0); Monocyte# 0.62 X10^3/uL; Monocyte% 9.3 % (0-10); NRBC Flagged by Analyzer 0 % (0-5); Neutrophil # 3.24 X10^3/uL (2.7-7.7); Neutrophil % 48.5 % (47-70); Platelet Count 252 K/mm3 (150-450); RBC Distribution Width CV 13.4 % (11.6-14.6); RBC Distribution Width SD 48.9 fl (35.1-43.9); Red Blood Count 3.49 M/mm3 (4.2-5.4); White Blood Count 6.7 K/mm3 (4.4-11.0)
[2024-03-15 08:05] LABS: Anion Gap 4 (5-15); BUN 32 mg/dL (7-18); BUN/Creat Ratio 29.4 RATIO (10-20); Calcium,Total 8.7 mg/dL (8.5-10.1); Chloride 109 mmol/L (98-107); Creatinine, Serum 1.09 mg/dL (0.55-1.02); EST Glomerular Filtration Rate 52 mL/min (>60); Est Glom Filt Rate - Afr Amer 62 mL/min (>60); Estimated Creatinine Clearance 43.96 ml/min; Glucose 102 mg/dL (74-106); Magnesium 1.9 mg/dL (1.6-2.6); Phosphorus 3.6 mg/dL (2.5-4.9); Potassium 3.9 mmol/L (3.5-5.1); Sodium Level 138 mmol/L (136-145)
--- NOTE | 2024-03-15 08:51 | CPS ---
patient does not want albuterol, it makes her jittery
[2024-03-15] MEDS: Menthol/Lanolin/Calamine/Znox 113 GM Tube 1 APPLIC TOPICAL ×2 (10:04→22:23)
[2024-03-15] MEDS: DULoxetine Hcl 60 MG Capsule PO (10:06)
[2024-03-15] MEDS: Heparin Injection (Vial) 5,000 UNIT/ML VIAL 5000 UNIT SC ×2 (10:06→22:24)
[2024-03-15] MEDS: Senna/Docusate Sodium 1 Tablet PO ×2 (10:07→22:27)
[2024-03-15] MEDS: Cholecalciferol (VIT D3) 25 MCG TABLET (1,000 UNITS) 100 MCG PO (10:07)
[2024-03-15] MEDS: Nystatin Ointment 1 APPLIC TOPICAL (10:07)
[2024-03-15] MEDS: Metoprolol(XL)Succ 50 MG Tablet PO (10:08)
[2024-03-15] MEDS: Sertraline 100 MG Tablet 200 MG PO (10:08)
[2024-03-15] MEDS: Ertapenem Sod 1 GM in 0.9% Normal Saline (50mL MB+) 50 ML IV (11:34)
--- NOTE | 2024-03-15 11:35 | CT_ITS ---
EXAM: CT ABDOMEN AND PELVIS WITHOUT INTRAVENOUS CONTRAST CLINICAL INDICATION: recurrent UTI, eval for hydronephrosis TECHNIQUE: Helically acquired images were obtained of the abdomen and pelvis without intravenous contrast. This CT exam was performed using one or more of the following dose reduction techniques: automated exposure control, adjustment of the mA and/or kV according to patient size, and/or use of iterative reconstruction technique. COMPARISON: CT abdomen and pelvis, 07/13/2013; CTA chest, 09/22/2023. FINDINGS: LOWER THORAX: Basilar pulmonary opacities may be atelectasis rather than pneumonia. Large hiatal hernia. No cardiomegaly. No significant pericardial effusion. ABDOMEN: LIVER: No significant abnormality. Homogeneous. GALLBLADDER AND BILE DUCTS: No significant abnormality. No calcified gallstones. No gallbladder distention or wall edema. No intra- or extrahepatic biliary ductal dilation. PANCREAS: No significant abnormality. No focal cystic mass. SPLEEN: No significant abnormality. Normal size without focal cystic or solid mass. ADRENALS: No significant abnormality. No nodules. KIDNEYS AND URETERS: Severe left-sided and mild right-sided hydroureteronephrosis without discrete obstructing lesion perhaps related to cystocele. Otherwise, normal renal size and position. STOMACH AND BOWEL: Moderate colorectal stool retention. No bowel obstruction. Colonic diverticulosis without evidence of diverticulitis. PELVIS: APPENDIX: No evidence of acute appendicitis. BLADDER: The urinary bladder distends below the level of the pelvic floor indicating a cystocele. REPRODUCTIVE: Normal as visualized. No mass. ABDOMEN and PELVIS: INTRAPERITONEAL SPACE: No significant abnormality. No ascites or other fluid collection. No free air. BONES/JOINTS: Degenerative and postoperative changes in the spine. At least moderate spinal canal stenosis at the level of the pseudoarticulation. Right hip prosthesis. Bilateral SI joint ankylosis. Chronic pseudoarthrosis at the level of L1 resulting in retrolisthesis of the upper spine relation to the lower spine. The lower spine is rigid with diffuse fusion. No suspicious lytic or blastic abnormality. SOFT TISSUES: Ventral fat-containing abdominal wall hernia. VASCULATURE: Atherosclerosis of the aorta and its branch vessels without evidence of aneurysm. LYMPH NODES: No significant abnormality. No enlarged lymph nodes. CT/Abdomen/Pelvis without Cont IMPRESSION: 1. Severe left-sided and mild right-sided hydroureteronephrosis without discrete obstructing lesion perhaps related to cystocele. 2. Basilar pulmonary opacities may be atelectasis rather than pneumonia. 3. Large hiatal hernia. 4. Moderate colorectal stool retention. No bowel obstruction. 5. Chronic pseudoarthrosis at the level of L1 resulting in retrolisthesis of the upper spine relation to the lower spine. The lower spine is rigid with diffuse fusion. This may be the sequela of a chronic chance type fracture or infection. 6. Colonic diverticulosis without evidence of diverticulitis. Electronically Signed: Rodrigo Montez DO at 13:05 EDT ,
--- NOTE | 2024-03-15 12:15 | PN.HOSP_ITS ---
Reason for Visit Reason for Visit: Diagnoses Urinary tract infection, site not specified (03/14/24) Subjective Subjective Saw patient at bedside this morning, daughter present. Patient was laying back fairly comfortably in bed, conversing normally, in no acute distress. She reported mild pain with urination and mild lower abdominal pain that has been fairly consistent for her over the past few weeks. She resides in the [facility] and has been there for about 6 years. She has had issues with UTIs in the past. She is also have issues with right leg wound here recently. She was brought into the hospital due to her most recent urine culture growing Proteus with resistance to multiple oral antibiotics and patient with reported allergies to only other oral antibiotics that appeared to cover it, so she needed IV antibiotic treatment. Patient feels similar today to yesterday. Denies any fevers or chills. No other new concerns today. Objective Data Objective Data Vital Signs: Vital Signs Temp Pulse Resp BP Pulse Ox O2 Del Method O2 Flow Rate 98 F 60 18 141/60 H 99 Nasal Cannula 2 03/15/24 07:58 03/15/24 10:08 03/15/24 08:04 03/15/24 10:08 03/15/24 08:04 03/15/24 08:49 03/15/24 08:49 Oxygen Flow Rate (L/min) 2 Oxygen Delivery Method Nasal Cannula Weight: 95.4 kg Body Mass Index (BMI) 41.1 Intake & Output: Intake and Output for Last 24 Hours 03/13/24 03/14/24 03/15/24 23:59 23:59 23:59 Intake Total 1126.25 / 1326.25 1800 / 1800 Output Total 1800 / 1800 Balance 1126.25 / 726.25 0 / 0 Lab / Micro Data 03/15/24 06:55 03/15/24 06:55 Labs: Laboratory Results - last 24 hr 03/14/24 14:39: WBC 7.4, RBC 3.74 L, Hgb 11.2 L, Hct 37.1, MCV 99.2 H, MCH 29.9, MCHC 30.2 L, RDW Std Deviation 48.2 H, RDW Coeff of Zach 13.3, Plt Count 283, MPV 10.6, Immature Gran % (Auto) 0.300, Neut % (Auto) 52.7, Lymph % (Auto) 34.2, Wilcox % (Auto) 8.0, Eos % (Auto) 4.4, Baso % (Auto) 0.4, Absolute Neuts (auto) 3.9, Absolute Lymphs (auto) 2.54, Nucleated RBC % 0, Sodium 138, Potassium 3.8, Chloride 108 H, Carbon Dioxide 27.0, Anion Gap 3 L, BUN 33 H, Creatinine 1.35 H, Estim Creat Clear Calc 35.49, Est GFR (MDRD) Af Amer 49 L, Est GFR (MDRD) Non-Af 40 L, BUN/Creatinine Ratio 24.4 H, Glucose 136 H, Calcium 9.6 03/14/24 15:40: Lactic Acid 0.9 03/15/24 06:55: WBC 6.7, RBC 3.49 L, Hgb 10.5 L, Hct 34.9 L, MCV 100.0 H, MCH 30.1, MCHC 30.1 L, RDW Std Deviation 48.9 H, RDW Coeff of Zach 13.4, Plt Count 252, MPV 10.2, Immature Gran % (Auto) 0.300, Neut % (Auto) 48.5, Lymph % (Auto) 36.1, Wilcox % (Auto) 9.3, Eos % (Auto) 5.1 H, Baso % (Auto) 0.7, Absolute Neuts (auto) 3.2, Absolute Lymphs (auto) 2.41, Nucleated RBC % 0, Sodium 138, Potassium 3.9, Chloride 109 H, Carbon Dioxide 25.0, Anion Gap 4 L, BUN 32 H, C reatinine 1.09 H, Estim Creat Clear Calc 43.96, Est GFR (MDRD) Af Amer 62, Est GFR (MDRD) Non-Af 52 L, BUN/Creatinine Ratio 29.4 H, Glucose 102, Calcium 8.7, Phosphorus 3.6, Magnesium 1.9 Physical Exam Const alert, oriented x3 and no apparent distress Constitutional Narrative: Elderly female, morbidly obese, sitting up comfortably in bed, conversing normally, in no acute distress. General Appearance: cooperative and comfortable HEENT normocephalic, head/scalp atraumatic, hearing grossly normal bilaterally, nasal mucous membranes and turbinates normal and moist oral mucous membranes Eyes PERRL, EOMs intact bilaterally and conjunctivae normal Neck full ROM Chest inspection of chest normal Resp normal respiratory effort, normal air movement, no use of accessory muscles and clear to auscultation bilaterally Cardio regular rate, regular rhythm, no murmurs and peripheral pulses 2+ throughout GI normal to inspection, nondistended, normoactive bowel sounds, soft to palpation, non-tender and non-distended no CVA tenderness Back/Spine normal ROM Extremity normal to inspection, full ROM and no pedal edema Skin no rashes or lesions noted Neuro moves all extremities and no focal motor deficits Speech: speech normal Psych mental status grossly normal Assessment & Plan Assessment/Plan (1) Acute UTI: PLAN: Plan Patient is a 78-year-old female who presented [facility] ED on 03/14/2024 from her [facility] for UTI symptoms. 1. Acute cystitis with multidrug-resistant Proteus mirabilis; history of recurrent UTI with vaginal dryness ? Infectious disease consulted. Recent urine dip at facility with positive nitrites, 500 leukocyte esterase. Urine culture grew multidrug-resistant Proteus; is sensitive to some p.o. antibiotics but patient apparently has allergies to these medications. Per patient and daughter, these allergies are more consistent with an intolerance of those medications. Afebrile, hemodynamically stable, no concern for sepsis. Patient does report mild abdominal and flank pain and no recent abdominal imaging noted; CT abdomen pelvis without contrast completed on 03/15 for further evaluation, read pending. Continue IV ertapenem for now. Appreciate ID recommendations for further antibiotic management going forward. Continue scheduled nystatin powder. 2. Mild creatinine elevation, resolved ? Creatinine 1.35 on admit, improved to 1.09 on hospital day 2 after IV fluid resuscitation. Baseline creatinine 1.0-1.2. No need for further monitoring of BMPs. 3. Right leg wound ? Had right leg wound wrapped on admission and there was apparent concern for infection of this wound at facility. Remains wrapped but no significant erythema, swelling or tenderness to palpation noted. If any infection present, would be treated with IV ertapenem as noted above. Wound care consulted. 4. Chronic debility ? Lives in the [facility], has lived there for the past 6 years. Will plan for patient to return there on discharge. Case management following. Chronic medical conditions: ? Morbid obesity: BMI 41 on admit. Complicates hospital course, care and prognosis. ? Depression/anxiety/chronic pain with neuropathy: Stable. Continue home sertraline, BuSpar, duloxetine, gabapentin and Percocet as needed. ? COPD not in acute exacerbation: Stable on room air. Continue home inhalers. ? Hypertension: Stable. Continue home Toprol. ? Hyperlipidemia: Continue home statin. DVT prophylaxis: Lovenox CODE STATUS: Full code, verified Expected disposition: Back to [facility], 1 to 2 days Total clinical time spent by myself addressing the patient's medical issues, reviewing all the data, and collaborating with patient's care team: 35 minutes. Charges/Coding Visit Charges Inpatient E&M: 84534 Subs Hosp L2
[2024-03-15] MEDS: Nystatin Powder 15gm Bottle 1 APPLIC TOPICAL ×2 (14:58→22:24)
[2024-03-15] MEDS: Budesonide Respules 0.5 MG/2 ML AMPUL.NEB. INHALATION (20:21)
[2024-03-15] MEDS: Pravastatin 40 MG Tablet PO (22:26)
[2024-03-16] VITALS (7 sets, daily range): BP systolic 152–164; BP diastolic 62–79; PULSE 61–73; RESP 16–26; TEMP 36.5–36.8; O2SAT 96–100
[2024-03-16] MEDS: busPIRone 5 MG Tablet PO ×3 (06:22→23:06)
[2024-03-16] MEDS: Nystatin Powder 15gm Bottle 1 APPLIC TOPICAL ×3 (06:22→23:07)
[2024-03-16] MEDS: Gabapentin 300 MG Capsule PO ×3 (06:24→23:06)
[2024-03-16] MEDS: Budesonide Respules 0.5 MG/2 ML AMPUL.NEB. INHALATION ×2 (07:29→19:36)
[2024-03-16] MEDS: Senna/Docusate Sodium 1 Tablet PO ×2 (10:00→23:10)
[2024-03-16] MEDS: Metoprolol(XL)Succ 50 MG Tablet PO (10:00)
[2024-03-16] MEDS: Sertraline 100 MG Tablet 200 MG PO (10:00)
[2024-03-16] MEDS: Cholecalciferol (VIT D3) 25 MCG TABLET (1,000 UNITS) 100 MCG PO (10:00)
[2024-03-16] MEDS: DULoxetine Hcl 60 MG Capsule PO (10:01)
[2024-03-16] MEDS: Heparin Injection (Vial) 5,000 UNIT/ML VIAL 5000 UNIT SC ×2 (10:01→23:06)
[2024-03-16] MEDS: 0.9% Saline Lock 10 ML Syringe IV (10:09)
[2024-03-16] MEDS: Menthol/Lanolin/Calamine/Znox 113 GM Tube 1 APPLIC TOPICAL ×2 (10:10→23:07)
[2024-03-16] MEDS: Ertapenem Sod 1 GM in 0.9% Normal Saline (50mL MB+) 50 ML IV (10:11)
--- NOTE | 2024-03-16 14:38 | CASEMGMT ---
Social Work- SW met with pt to discuss preferences at d/c. Pt states that she prefers to return to [facility]. Pt can go back at any time. YESI Mccabe
--- NOTE | 2024-03-16 14:42 | CON.PCM.ID_ITS ---
Assessment & Plan Assessment/Plan (1) Acute UTI: PLAN: Ucx with ESBL proteus, continue ertapenem. CT shows severe L hydro, will consult urology. Will follow, thank you HPI Consult Data Date of Consult: 03/16/24 HPI Narrative Reason for Consultation: uti HPI Narrative: CAMILLA HAWLEY, is a 78 F with h/o copd, htn, presented with several days moderate progressive L flank pain, lower abd pain. No fever or chills. No dysuria. Sx are similar to past UTI, gets frequent infections. Admitted on ertapenem, feeling not much better today. Full ROS performed and neg except as noted above. [facility] Medical History Hyperlipidemia Acute hypoxic respiratory failure Vertebral osteomyelitis Abnormal spinal diagnostic imaging History of COPD History of hypertension Fatigue Non-ischemic cardiomyopathy Abnormal CT of thoracic spine Soft tissue mass Vitamin D deficiency Depression Anxiety Chronic back pain Chronic obstructive pulmonary disease Venous insufficiency of right leg PVD (peripheral vascular disease) DDD (degenerative disc disease) COPD (chronic obstructive pulmonary disease) Essential (primary) hypertension MRSA (methicillin resistant staph aureus) culture positive Hemorrhoids Venous ulcer of left lower extremity without varicose veins 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 Foot drop, right Malnutrition Home Medications ?Medication ?Instructions ?Recorded ?Last Taken ?Type pravastatin 40 mg tablet 40 mg PO QHS CHOLESTEROL 01/17/18 03/13/24 History methenamine hippurate 1 gram tablet 1 g PO BID URINARY 04/12/20 03/14/24 History duloxetine 60 mg capsule,delayed 60 mg PO DAILY mental health 06/07/20 03/14/24 History release metoprolol succinate 50 mg 50 mg PO DAILY HEART 06/07/20 03/14/24 History tablet,extended release 24 hr fluticasone furoate 100 1 inh inhalation DAILY breathing 08/03/21 09/20/22 History mcg-vilanterol 25 mcg/dose inhalation powder (Breo Ellipta) gabapentin 300 mg capsule 300 mg PO TID NERVE 08/03/21 03/14/24 History cholecalciferol (vitamin D3) 100 100 mcg PO DAILY SUPPLEMENT 02/13/22 03/14/24 History mcg (4,000 unit) tablet naloxone 4 mg/actuation nasal spray 1 spray intranasal Q2-3M PRN 02/13/22 Unknown History OVERDOSE ondansetron HCl 4 mg tablet 4 mg PO Q8H PRN Nausea 02/13/22 Unknown History sennosides 8.6 mg-docusate sodium 1 tab PO BID PRN CONSTIPATION 02/13/22 03/14/24 History 50 mg tablet abopgtqe-msd-zhgap acid 0.4 1 tab PO DAILY vitamin 06/14/22 03/14/24 History mg-lycopene 300 mcg-lutein 250 mcg tablet (Centrum Silver) albuterol sulfate 90 mcg/actuation 2 inh inhalation Q4H PRN 08/15/22 Unknown History aerosol inhaler SOB/WHEEZING ULTRAFLORA IMMUNE HEALTH 170 mg PO/SL DAILY GUT HEALTH 09/20/22 09/19/22 History acetaminophen 500 mg tablet 500 mg PO Q6H PRN Pain 09/20/22 09/17/22 History albuterol sulfate 2.5 mg/3 mL 2.5 mg inhalation Q4H PRN 09/20/22 09/20/22 History (0.083 %) solution for nebulization SOB/WHEEZING guaifenesin 100 mg/5 mL oral 200 mg PO Q6H PRN COUGH/SORE THROAT 09/20/22 09/20/22 History liquid (Siltussin SA) melatonin 5 mg tablet 5 mg PO QHS SLEEP 09/20/22 03/13/24 History sertraline 100 mg tablet 200 mg PO DAILY DEPRESSION 09/20/22 03/14/24 History hydrocortisone 1 % topical cream 1 applic topical TID PRN 09/21/22 Unknown History (Preparation H Hydrocortisone) Hemorrhoids buspirone 5 mg tablet 5 mg PO TID mental health 03/14/23 03/14/24 History oxycodone-acetaminophen 5 mg-325 1 tab PO TID PRN pain 03/14/23 03/14/24 History mg tablet (Percocet) menthol 4 % topical gel (Biofreeze 1 applic topical BID PRN pain 09/21/23 Unknown History (menthol)) polyethylene glycol 3350 17 17 g PO DAILY PRN constipation 09/21/23 Unknown History gram/dose oral powder (ClearLax) pomegranate fruit extract 250 mg 250 mg PO DINNER SUPPLEMENT 03/12/24 03/13/24 History capsule bisacodyl 10 mg rectal suppository 10 mg OH DAILY PRN constipation 03/14/24 Unknown History estradiol 0.01% (0.1 mg/gram) 1 appful vaginal .COMPLEX 03/14/24 Unknown History vaginal cream magnesium hydroxide 400 mg/5 mL 30 ml PO DAILY PRN constipation 03/14/24 Unknown History oral suspension (Dulcolax (magnesium hydroxide)) mineral oil (Mwele-Qw-Iim Enema 118 ml OH DAILY PRN constipation 03/14/24 Unknown History (mineral oil)) Allergy/AdvReac Type Severity Reaction Status Date / Time morphine Allergy Unknown unknown Verified 03/14/24 14:56 amoxicillin (From Augmentin) AdvReac Nausea/Vom/ Verified 03/14/24 14:56 Diarrhea clavulanic acid (From AdvReac Nausea/Vom/ Verified 03/14/24 14:56 Augmentin) Diarrhea nitrofurantoin AdvReac Vomiting Verified 03/14/24 14:56 macrocrystalline (From Macrodantin) sulfamethoxazole (From AdvReac Nausea/Vom/ Verified 03/14/24 14:56 Bactrim) Diarrhea trimethoprim (From Bactrim) AdvReac Nausea/Vom/ Verified 03/14/24 14:56 Diarrhea Family History Father Hypertension Mother Diabetes Hypertension Brother Diabetes Brother Cancer Sister Hypertension Surgical History History of incisional hernia repair Hx of repair of rotator cuff History of hip replacement History of hysterectomy Social History Smoking Status: Never smoker alcohol intake: never substance use type: does not use caffeine: Yes Type: coffee Number of servings: 2 what type of physical activity do you participate in: none additional social history: Lives at [facility] Physical Exam Const alert, oriented x3 and no apparent distress General Appearance: cooperative HEENT normocephalic and head/scalp atraumatic Eyes PERRL and EOMs intact bilaterally Neck supple and No nodes Resp normal air movement and clear to auscultation bilaterally Cardio regular rate and regular rhythm GI soft to palpation, non-tender and non-distended GI Narrative: mild L flank pain Extremity General Extremity: edema Skin no rashes or lesions noted Neuro CN's II-XII intact bilaterally Lab / Micro Data Attestation: I reviewed the patient's lab results. 03/15/24 06:55 03/15/24 06:55 Imaging Radiology Impression Abdomen/Pelvis CT 03/15/24 11:35 IMPRESSION: 1. Severe left-sided and mild right-sided hydroureteronephrosis without discrete obstructing lesion perhaps related to cystocele. 2. Basilar pulmonary opacities may be atelectasis rather than pneumonia. 3. Large hiatal hernia. 4. Moderate colorectal stool retention. No bowel obstruction. 5. Chronic pseudoarthrosis at the level of L1 resulting in retrolisthesis of the upper spine relation to the lower spine. The lower spine is rigid with diffuse fusion. This may be the sequela of a chronic chance type fracture or infection. 6. Colonic diverticulosis without evidence of diverticulitis. Electronically Signed: Rodrigo Montez DO at 13:05 EDT ,
[2024-03-16] MEDS: oxyCODONE 5 MG Tablet PO (14:43)
[2024-03-16] MEDS: Acetaminophen 325 MG Tablet 650 MG PO (14:43)
--- NOTE | 2024-03-16 18:07 | PCM.PN.HOSP ---
Reason for Visit Reason for Visit: Diagnoses Urinary tract infection, site not specified (03/14/24) Subjective Subjective Progressively feeling better, feels her respiratory status is at baseline, no abdominal pain Objective Data Objective Data Vital Signs: Vital Signs Temp Pulse Resp BP Pulse Ox O2 Del Method O2 Flow Rate 97.7 F L 63 18 159/62 H 97 Nasal Cannula 2 03/16/24 14:40 03/16/24 14:40 03/16/24 14:40 03/16/24 14:40 03/16/24 14:40 03/16/24 14:40 03/16/24 14:40 Oxygen Flow Rate (L/min) 2 Oxygen Delivery Method Nasal Cannula Weight: 95.4 kg Body Mass Index (BMI) 41.1 Intake & Output: Intake and Output for Last 24 Hours 03/14/24 03/15/24 03/16/24 23:59 23:59 23:59 Intake Total 1126.25 / 1326.25 3560 / 3560 560 / 560 Output Total 3000 / 3000 1125 / 1125 Balance 1126.25 / 726.25 560 / 560 -565 / -565 Lab / Micro Data 03/15/24 06:55 03/15/24 06:55 Radiography Diagnostic Testing: Radiology Impression Abdomen/Pelvis CT 03/15/24 11:35 IMPRESSION: 1. Severe left-sided and mild right-sided hydroureteronephrosis without discrete obstructing lesion perhaps related to cystocele. 2. Basilar pulmonary opacities may be atelectasis rather than pneumonia. 3. Large hiatal hernia. 4. Moderate colorectal stool retention. No bowel obstruction. 5. Chronic pseudoarthrosis at the level of L1 resulting in retrolisthesis of the upper spine relation to the lower spine. The lower spine is rigid with diffuse fusion. This may be the sequela of a chronic chance type fracture or infection. 6. Colonic diverticulosis without evidence of diverticulitis. Electronically Signed: Rodrigo Montez DO at 13:05 EDT , Physical Exam Narrative General: Alert, oriented, no apparent distress HEENT: Atraumatic, normocephalic Eyes: Anicteric, normal conjunctiva, extraocular movements grossly intact Neck: Supple Respiratory: Somewhat diminished at the bases, normal respiratory effort Cardiovascular: Regular rate and rhythm GI: Soft, nontender, nondistended Extremities: Trace lower extremity edema Musculoskeletal: Moving all extremities Neuro: No overt focal neurological deficits Skin: No rashes appreciated Psych: Cooperative Assessment & Plan Assessment/Plan (1) Acute UTI: PLAN: Plan # Acute ESBL Proteus UTI -Patient on ertapenem -Has had UTIs in the past -CT with severe left hydro and possible cystocele -Discussed with infectious disease- preference is for patient to be evaluated by urology while still inpatient and prior to discharge given her recurrent UTIs and findings on CT -Continue antibiotics #RLE wound -Erythema improved -Is on IV ertapenem for unrelated reason # Chronic debility -Will go back to [facility] on discharge #Morbid obesity -BMI 41Kg/m? -Complicates treatment, prognosis, outcomes -Recommend weight loss and lifestyle changes # Mood disorder and chronic pain -Continue home medications #DVT ppx: Heparin subcu Estela Terry MD Time spent in the patient's overall evaluation,decision-making process, review of diagnostic data, adjustment of management, discussion with other providers, nursing nursing and ancillary staff involved in patient's care documentation, 36 minutes Charges/Coding Visit Charges Inpatient E&M: 07277 Subs Hosp L2
[2024-03-16] MEDS: Pravastatin 40 MG Tablet PO (23:10)
[2024-03-17 05:00] VITALS: BP 150/56; PULSE 65; RESP 18; TEMP 36.5; O2SAT 99
[2024-03-17] MEDS: Nystatin Powder 15gm Bottle 1 APPLIC TOPICAL ×2 (05:51→14:28)
[2024-03-17] MEDS: busPIRone 5 MG Tablet PO ×2 (05:51→14:28)
[2024-03-17] MEDS: Gabapentin 300 MG Capsule PO ×2 (05:52→14:32)
[2024-03-17] MEDS: Budesonide Respules 0.5 MG/2 ML AMPUL.NEB. INHALATION (07:14)
[2024-03-17 07:20] VITALS: PULSE 77; RESP 20
[2024-03-17 08:31] LABS: Absolute Lymphocyte Count 2.05 X10^3/uL (0.83-4.51); Absolute Neutrophil Count 4.4 X10^3/uL (2.0-7.7); Basophil# 0.03 X10^3/uL; Basophil% 0.4 % (0-1); Eosinophil# 0.29 X10^3/uL; Eosinophils% 3.9 % (0-5); Hematocrit 34.2 % (37-47); Hemoglobin 10.7 g/dL (12.0-15.0); Lymphocyte # 2.05 X10^3/ul (0.83-4.51); Lymphocyte % 27.3 % (19-41); Mean Corp Hgb Conc 31.3 g/dL (32-36); Mean Corpuscular Hgb 30.1 pg (27.0-32.0); Mean Corpuscular Volume 96.1 fL (81-99); Mean Platelet Vol. 10.3 fl (6.2-12.0); Monocyte# 0.68 X10^3/uL; NRBC Flagged by Analyzer 0 % (0-5); Neutrophil # 4.44 X10^3/uL (2.7-7.7); Platelet Count 255 K/mm3 (150-450); RBC Distribution Width CV 13.2 % (11.6-14.6); RBC Distribution Width SD 46.9 fl (35.1-43.9); Red Blood Count 3.56 M/mm3 (4.2-5.4); White Blood Count 7.5 K/mm3 (4.4-11.0)
--- NOTE | 2024-03-17 08:41 | CON.PCM_ITS ---
Assessment & Plan Assessment/Plan (1) Acute UTI: (2) Hydronephrosis: PLAN: Plan This is a difficult situation for me to be able to make improvements on her function or risk of infections. She is not a candidate for urodynamics and likely has a neurogenic bladder or at minimum a hypoactive detrusor. The nonfunctioning bladder is likely a result of her previous surgical interventions and health status. The best medical option at this point would to be to have intermittent straight catheterizations of her bladder done. Given her status in the detention this is not likely to be able to be done easily for her and she is not truly interested. She does not want to have a suprapubic catheter inserted at this time. Her hydronephrosis is likely a result of her non functioning bladder. Stents in her ureters will likely not resolve this issue. It would likely increase her risk of infections beyond the bladder and into the kidneys as well and possible sepsis. I will discuss today with hospitalist. HPI Consult Data Date of Consult: 03/17/24 HPI Narrative Reason for Consultation: Hydronephrosis, recurrent urinary tract infections HPI Narrative: CAMILLA HAWLEY, is a 78 F who is admitted to the hospital with a resistant urinary tract infection. She currently is in a detention where she is nonambulatory. Here at the hospital she is using a pure wick catheter, in the detention she voids into a depends. She has had multiple bladder procedures in the past including hysterectomy and at least 2 prolapse repairs. She reports that she cannot feel or see vaginally so she is not aware if the bladder has dropped again. She feels that she does not completely empty her bladder. She has issues with constipation bowel movements and does not have a bowel movement on a daily basis. All of these things together contribute to her recurrent infections. Given her ambulatory status, I will be unable to perform urodynamics testing or cystoscopy in the office. She is not interested in having a suprapubic tube at this time, and we did discuss a temporary urethral Rees to see if we can even improve the hydronephrosis. I will plan to discuss with her medical physician. [facility] Medical History (Updated 03/17/24 @ 08:[address] Paige Lynne MD) Hydronephrosis Hyperlipidemia Acute hypoxic respiratory failure Vertebral osteomyelitis Abnormal spinal diagnostic imaging History of COPD History of hypertension Fatigue Non-ischemic cardiomyopathy Abnormal CT of thoracic spine Soft tissue mass Vitamin D deficiency Depression Anxiety Chronic back pain Chronic obstructive pulmonary disease Venous insufficiency of right leg PVD (peripheral vascular disease) DDD (degenerative disc disease) COPD (chronic obstructive pulmonary disease) Essential (primary) hypertension MRSA (methicillin resistant staph aureus) culture positive Hemorrhoids Venous ulcer of left lower extremity without varicose veins 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 Foot drop, right Malnutrition Home Medications ?Medication ?Instructions ?Recorded ?Last Taken ?Type pravastatin 40 mg tablet 40 mg PO QHS CHOLESTEROL 01/17/18 03/13/24 History methenamine hippurate 1 gram tablet 1 g PO BID URINARY 04/12/20 03/14/24 History duloxetine 60 mg capsule,delayed 60 mg PO DAILY mental health 06/07/20 03/14/24 History release metoprolol succinate 50 mg 50 mg PO DAILY HEART 06/07/20 03/14/24 History tablet,extended release 24 hr fluticasone furoate 100 1 inh inhalation DAILY breathing 08/03/21 09/20/22 History mcg-vilanterol 25 mcg/dose inhalation powder (Breo Ellipta) gabapentin 300 mg capsule 300 mg PO TID NERVE 08/03/21 03/14/24 History cholecalciferol (vitamin D3) 100 100 mcg PO DAILY SUPPLEMENT 02/13/22 03/14/24 History mcg (4,000 unit) tablet naloxone 4 mg/actuation nasal spray 1 spray intranasal Q2-3M PRN 02/13/22 Unknown History OVERDOSE ondansetron HCl 4 mg tablet 4 mg PO Q8H PRN Nausea 02/13/22 Unknown History sennosides 8.6 mg-docusate sodium 1 tab PO BID PRN CONSTIPATION 02/13/22 03/14/24 History 50 mg tablet [id number]-oix-nrfoq acid 0.4 1 tab PO DAILY vitamin 06/14/22 03/14/24 History mg-lycopene 300 mcg-lutein 250 mcg tablet (Centrum Silver) albuterol sulfate 90 mcg/actuation 2 inh inhalation Q4H PRN 08/15/22 Unknown History aerosol inhaler SOB/WHEEZING ULTRAFLORA IMMUNE HEALTH 170 mg PO/SL DAILY GUT HEALTH 09/20/22 09/19/22 History acetaminophen 500 mg tablet 500 mg PO Q6H PRN Pain 09/20/22 09/17/22 History albuterol sulfate 2.5 mg/3 mL 2.5 mg inhalation Q4H PRN 09/20/22 09/20/22 History (0.083 %) solution for nebulization SOB/WHEEZING guaifenesin 100 mg/5 mL oral 200 mg PO Q6H PRN COUGH/SORE THROAT 09/20/22 09/20/22 History liquid (Siltussin SA) melatonin 5 mg tablet 5 mg PO QHS SLEEP 09/20/22 03/13/24 History sertraline 100 mg tablet 200 mg PO DAILY DEPRESSION 09/20/22 03/14/24 History hydrocortisone 1 % topical cream 1 applic topical TID PRN 09/21/22 Unknown History (Preparation H Hydrocortisone) Hemorrhoids buspirone 5 mg tablet 5 mg PO TID mental health 03/14/23 03/14/24 History oxycodone-acetaminophen 5 mg-325 1 tab PO TID PRN pain 03/14/23 03/14/24 History mg tablet (Percocet) menthol 4 % topical gel (Biofreeze 1 applic topical BID PRN pain 09/21/23 Unknown History (menthol)) polyethylene glycol 3350 17 17 g PO DAILY PRN constipation 09/21/23 Unknown History gram/dose oral powder (ClearLax) pomegranate fruit extract 250 mg 250 mg PO DINNER SUPPLEMENT 03/12/24 03/13/24 History capsule bisacodyl 10 mg rectal suppository 10 mg MO DAILY PRN constipation 03/14/24 Unknown History estradiol 0.01% (0.1 mg/gram) 1 appful vaginal .COMPLEX 03/14/24 Unknown History vaginal cream magnesium hydroxide 400 mg/5 mL 30 ml PO DAILY PRN constipation 03/14/24 Unknown History oral suspension (Dulcolax (magnesium hydroxide)) mineral oil (Pdwqr-[id number]-Wou Enema 118 ml MO DAILY PRN constipation 03/14/24 Unknown History (mineral oil)) Allergy/AdvReac Type Severity Reaction Status Date / Time morphine Allergy Unknown unknown Verified 03/14/24 14:56 amoxicillin (From Augmentin) AdvReac Nausea/Vom/ Verified 03/14/24 14:56 Diarrhea clavulanic acid (From AdvReac Nausea/Vom/ Verified 03/14/24 14:56 Augmentin) Diarrhea nitrofurantoin AdvReac Vomiting Verified 03/14/24 14:56 macrocrystalline (From Macrodantin) sulfamethoxazole (From AdvReac Nausea/Vom/ Verified 03/14/24 14:56 Bactrim) Diarrhea trimethoprim (From Bactrim) AdvReac Nausea/Vom/ Verified 03/14/24 14:56 Diarrhea Family History Father Hypertension Mother Diabetes Hypertension Brother Diabetes Brother Cancer Sister Hypertension Surgical History History of incisional hernia repair Hx of repair of rotator cuff History of hip replacement History of hysterectomy Social History Smoking Status: Never smoker alcohol intake: never substance use type: does not use caffeine: Yes Type: coffee Number of servings: 2 what type of physical activity do you participate in: none additional social history: Lives at [facility] Constitutional Constitutional: Denies chills, fever(s) or poor appetite Eyes Eyes: Reports systems reviewed and no addt'l complaints, except as documented ENT HEENT: Reports systems reviewed and no addt'l complaints, except as documented Cardiovascular Cardiovascular: Denies chest pain or dyspnea Respiratory/Chest Respiratory/Chest: Denies chest congestion, cough or dyspnea Gastrointestinal Gastrointestinal: Reports constipation; Denies abdominal pain Genitourinary Genitourinary: Reports difficulty urinating and urinary incontinence; Denies dysuria, flank pain or hematuria Musculoskeletal Musculoskeletal: Reports limited range of motion and muscle weakness Integumentary Integumentary: Reports systems reviewed and no addt'l complaints, except as documented Neurologic Neurologic: Reports systems reviewed and no addt'l complaints, except as documented Psychiatric Psychiatric: Reports systems reviewed and no addt'l complaints, except as documented Endocrine Endocrinology: Reports systems reviewed and no addt'l complaints, except as documented Hematologic/Lymphatic Hematologic/Lymphatic: Reports systems reviewed and no addt'l complaints, except as documented Allergic/Immunologic Allergic/Immunologic: Reports systems reviewed and no addt'l complaints, except as documented Physical Exam Const alert, oriented x3 and no apparent distress HEENT normocephalic, head/scalp atraumatic, hearing grossly normal bilaterally, external ears normal and external nose normal Eyes General Eye: normal appearance of both eyes Neck supple General: normal visual inspection and trachea midline Chest inspection of chest normal Resp normal respiratory effort, normal air movement and no retractions Cardio regular rate GI soft to palpation, non-tender and non-distended no CVA tenderness Extremity normal to inspection Skin no rashes or lesions noted Neuro oriented x3 and CN's II-XII intact bilaterally Psych mental status grossly normal Lab / Micro Data 03/17/24 07:46 03/15/24 06:55 Labs: Laboratory Results - last 24 hr 03/17/24 07:46: WBC 7.5, RBC 3.56 L, Hgb 10.7 L, Hct 34.2 L, MCV 96.1, MCH 30.1, MCHC 31.3 L, RDW Std Deviation 46.9 H, RDW Coeff of Zach 13.2, Plt Count 255, MPV 10.3, Immature Gran % (Auto) 0.400, Neut % (Auto) 59.0, Lymph % (Auto) 27.3, Quay % (Auto) 9.0, Eos % (Auto) 3.9, Baso % (Auto) 0.4, Absolute Neuts (auto) 4.4, Absolute Lymphs (auto) 2.05, Nucleated RBC % 0 Micro: Microbiology 03/14/24 15:35 Blood Culture (Wb) - Anticubital Right Blood Culture - Preliminary No growth in 48 hours. 03/14/24 15:40 Blood Culture (Wb) - Anticubital Left Blood Culture - Preliminary No growth in 48 hours.
[2024-03-17 08:42] VITALS: BP 139/54; PULSE 70; RESP 18; TEMP 36.6; O2SAT 100
[2024-03-17 08:50] VITALS: PULSE 70
[2024-03-17] MEDS: Sertraline 100 MG Tablet 200 MG PO (08:50)
[2024-03-17] MEDS: Cholecalciferol (VIT D3) 25 MCG TABLET (1,000 UNITS) 100 MCG PO (08:50)
[2024-03-17] MEDS: Metoprolol(XL)Succ 50 MG Tablet PO (08:50)
[2024-03-17] MEDS: Senna/Docusate Sodium 1 Tablet PO (08:50)
[2024-03-17] MEDS: Heparin Injection (Vial) 5,000 UNIT/ML VIAL 5000 UNIT SC (08:50)
[2024-03-17] MEDS: DULoxetine Hcl 60 MG Capsule PO (08:50)
[2024-03-17] MEDS: Menthol/Lanolin/Calamine/Znox 113 GM Tube 1 APPLIC TOPICAL (08:51)
[2024-03-17] MEDS: Acetaminophen 325 MG Tablet 650 MG PO (08:54)
[2024-03-17] MEDS: oxyCODONE 5 MG Tablet PO (08:54)
[2024-03-17 09:37] VITALS: O2SAT 98
[2024-03-17] MEDS: 0.9% Saline Lock 10 ML Syringe IV ×2 (10:29→14:32)
[2024-03-17] MEDS: Ertapenem Sod 1 GM in 0.9% Normal Saline (50mL MB+) 50 ML IV (10:30)
--- NOTE | 2024-03-17 10:43 | PN.ID_ITS ---
Physical Exam Narrative Feeling ok, no abd pain, no fever Const alert and no apparent distress Resp normal air movement and clear to auscultation bilaterally Cardio regular rate and regular rhythm GI soft to palpation, non-tender and non-distended Skin no rashes or lesions noted ID ID: Route of nutrition/ use of supplements: [] Nutritional Intake: [] IV Site: [] Rees Catheter: [] Assessment & Plan Assessment/Plan (1) Acute UTI: PLAN: Ucx with ESBL proteus, continue ertapenem. CT shows severe L hydro, seen by urology, pt not interested in suprapubic catheter. Will write for 3 more days IM ertapenem at [facility]. Not a candidate for methenamine due to GFR. Without source control or good preventative options, concern that she will continue to get infected. Will follow as needed, d/w Dr. Terry
[2024-03-17 11:16] LABS: Anion Gap 5 (5-15); BUN 22 mg/dL (7-18); BUN/Creat Ratio 24.2 RATIO (10-20); Calcium,Total 9.8 mg/dL (8.5-10.1); Chloride 106 mmol/L (98-107); Creatinine, Serum 0.91 mg/dL (0.55-1.02); EST Glomerular Filtration Rate 63 mL/min (>60); Est Glom Filt Rate - Afr Amer 77 mL/min (>60); Estimated Creatinine Clearance 52.65 ml/min; Glucose 105 mg/dL (74-106); Potassium 3.9 mmol/L (3.5-5.1); Sodium Level 139 mmol/L (136-145)
--- NOTE | 2024-03-17 13:43 | TREXTCAR_ITS ---
Diet Diet Order/Speech Therapy: 03/14/24 18:41 Diet: Regular - General Food consistency:: Regular Liquid Consistency:: Regular/Thin Routine Orders/Code Status Suppository Type: Dulcolax 10mg Suppository Frequency: Daily PRN O2 Liters per Minute: 2 O2 Frequency: Continuous Wound(s) Right Lower Extremity: Wound Type: Stasis Ulcer Therapies Physical Therapy: Eval and Treat Problem/Diagnosis (1) Acute UTI: Status: Acute Code(s): N39.0 - Urinary tract infection, site not specified Plan # Acute ESBL Proteus UTI #RLE wound- improved # Chronic debility #Morbid obesity # Mood disorder and chronic pain # Chronic hypoxic respiratory failure on 2 L home O2 Pt is a 78y/o female w/ hx of chronic pain, depression, COPD on 2L home O2, chronic debility, morbid obesity who presented to [facility] ED 03/14/2024 for positive urine cultures. She had a positive urine culture at [facility] and given her multiple medication allergies and history of resistant organisms patient sent to the ED for IV antibiotics. Patient did have some painful urination for most 2 weeks with some back pain. Urine culture positive for Proteus with notable resistance pattern. Patient given IV antibiotics and infectious disease evaluated, patient did have CT scan of abdomen which showed cystocele and left-sided hydronephrosis and urology saw in consultation, given functional status and patient preference it was deemed there were no interventions available for patient at this time and was advised to treat UTI and DC back to extended care facility, patient agreeable to this plan. Patient to DC on 3 more days of IM ertapenem. Allergies/Procedures Done in Hospital Allergies morphine Allergy (Unknown, Verified 03/14/24 14:56) unknown amoxicillin (From Augmentin) Adverse Reaction (Verified 03/14/24 14:56) Nausea/Vom/Diarrhea clavulanic acid (From Augmentin) Adverse Reaction (Verified 03/14/24 14:56) Nausea/Vom/Diarrhea nitrofurantoin macrocrystalline (From Macrodantin) Adverse Reaction (Verified 03/14/24 14:56) Vomiting sulfamethoxazole (From Bactrim) Adverse Reaction (Verified 03/14/24 14:56) Nausea/Vom/Diarrhea trimethoprim (From Bactrim) Adverse Reaction (Verified 03/14/24 14:56) Nausea/Vom/Diarrhea Type of Care/Length of Stay Estimated LOS: More Than 30 Days Type of Care Needed: Intermediate Rehab Potential: Fair Prognosis: Fair Additional Orders/Day of Discharge Day of Discharge: 03/17/24 Discharge Plan Admission Admit Date/Time: 03/14/24 17:19 Primary Reason for Your Visit: UTI Attending Provider: Estela Terry Primary Care Provider: Wolf Berry Consulting Providers: Jovanni Rogers; Eben Lamb; Darryl Dawson; Paige Lynne Instructions Patient Instructions: Urinary Tract Infections in Women Discharge Orders/Prescriptions Prescriptions: New ertapenem 1 gram recon soln 1 g IM DAILY Qty: 3 0RF Rx Instructions: dx: esbl uti. Mix with lidocaine. Continued pravastatin 40 mg tablet 40 mg PO QHS duloxetine 60 mg capsule,delayed release(DR/EC) 60 mg PO DAILY metoprolol succinate 50 mg tablet extended release 24 hr 50 mg PO DAILY fluticasone furoate-vilanterol [Breo Ellipta] 100-25 mcg/dose blister with device 1 inh inhalation DAILY buspirone 5 mg tablet 5 mg PO TID naloxone 4 mg/actuation spray,non-aerosol 1 spray intranasal Q2-3M PRN (Reason: OVERDOSE) Rx Instructions: spray 1 dose into ONE nostril; alternate nostrils w each dose until help arrives cholecalciferol (vitamin D3) 100 mcg (4,000 unit) tablet 100 mcg PO DAILY pomegranate fruit extract 250 mg capsule 250 mg PO DINNER albuterol sulfate 90 mcg/actuation HFA aerosol inhaler 2 inh inhalation Q4H PRN (Reason: SOB/WHEEZING) Centrum Silver 0.4 mg-300 mcg- 250 mcg tablet 1 tab PO DAILY methenamine hippurate 1 GM tablet 1 g PO BID Rx Instructions: this can be used ongoing for prevention of uti. gabapentin 300 mg capsule 300 mg PO TID ondansetron HCl 4 mg tablet 4 mg PO Q8H PRN (Reason: Nausea) sennosides-docusate sodium 8.6-50 mg tablet 1 tab PO BID PRN (Reason: CONSTIPATION) albuterol sulfate 2.5 mg /3 mL (0.083 %) Solution For Nebulization 2.5 mg INHALATION Q4H PRN (Reason: SOB/WHEEZING) sertraline 100 mg tablet 200 mg PO DAILY acetaminophen 500 mg Tablet 500 mg PO Q6H PRN (Reason: Pain) guaifenesin [Siltussin SA] 100 mg/5 mL Liquid 200 mg PO Q6H PRN (Reason: COUGH/SORE THROAT) melatonin 5 mg Tablet 5 mg PO QHS ULTRAFLORA IMMUNE HEALTH 170 mg PO/SL DAILY hydrocortisone [Preparation H Hydrocortisone] 1 % Cream 1 applic TOPICAL TID PRN (Reason: Hemorrhoids) Biofreeze (menthol) 4 % gel 1 applic topical BID PRN (Reason: pain) Rx Instructions: apply to shoulder and lower back polyethylene glycol 3350 [ClearLax] 17 gram/dose powder 17 g PO DAILY PRN (Reason: constipation) bisacodyl 10 mg suppository 10 mg PA DAILY PRN (Reason: constipation) mineral oil [[id number] Enema (min oil)] Enema 118 ml PA DAILY PRN (Reason: constipation) Rx Instructions: discard any unused portion estradiol 0.01 % (0.1 mg/gram) cream 1 appful vaginal .COMPLEX Patient Comments: PATIENT INSTRUCTIONS STATE TO APPLY TO GROIN TOPICALLY FOR UTI Rx Instructions: 1 appful vaginally; 1 appful vaginally EVERY MON,WED,FRI; magnesium hydroxide [Dulcolax (magnesium hydroxide)] 400 mg/5 mL suspension 30 ml PO DAILY PRN (Reason: constipation) oxycodone-acetaminophen [Percocet] 5-325 mg tablet 1 tab PO TID PRN (Reason: pain) 3 Days Qty: 9 0RF Referrals / Follow Up: Wolf Berry MD [Primary Care Provider] - Within 1 Week Disposition Disposition (needs filled in before D/C Order can be placed): [facility]
--- NOTE | 2024-03-17 13:52 | DS.PCM_ITS ---
Providers Date of Admission: 03/14/24 Date of Discharge: 03/17/24 Primary Care Physician: Dr. Wolf Berry MD Consultations 03/15/24 12:31 Consult: Infectious Disease Routine Consulting Provider: Darryl Dawson Reason for Consult: Resistant Proteus UTI w/ several abx allergies EMERGENT Consult: No Notified: Yes Date Notified: 03/16/24 Time Notified: 09:07 Method of Notification: Text 03/16/24 14:32 Consult: Urology Routine Consulting Provider: Paige Lynne Reason for Consult: L hydro, recurrent UTI EMERGENT Consult: No Notified: Yes Date Notified: 03/16/24 Time Notified: 14:32 Method of Notification: Text Reason For Visit: ACUTE CYSTITIS Diagnosis Discharge Diagnosis (1) Acute UTI: Status: Acute Code(s): N39.0 - Urinary tract infection, site not specified (2) Hydronephrosis, left: Status: Acute Code(s): N13.30 - Unspecified hydronephrosis Plan # Acute ESBL Proteus UTI #RLE wound- improved # Chronic debility #Morbid obesity # Mood disorder and chronic pain # Chronic hypoxic respiratory failure on 2 L home O2 #Hydronephrosis L Medications at Discharge Home Medications pravastatin 40 mg tablet 40 mg PO QHS CHOLESTEROL 01/17/18 methenamine hippurate 1 gram tablet 1 g PO BID URINARY 04/12/20 duloxetine 60 mg capsule,delayed release 60 mg PO DAILY mental health 06/07/20 metoprolol succinate 50 mg tablet,extended release 24 hr 50 mg PO DAILY HEART 06/07/20 fluticasone furoate 100 mcg-vilanterol 25 mcg/dose inhalation powder (Breo Ellipta) 1 inh inhalation DAILY breathing 08/03/21 gabapentin 300 mg capsule 300 mg PO TID NERVE 08/03/21 cholecalciferol (vitamin D3) 100 mcg (4,000 unit) tablet 100 mcg PO DAILY SUPPLEMENT 02/13/22 naloxone 4 mg/actuation nasal spray 1 spray intranasal Q2-3M PRN OVERDOSE 02/13/22 ondansetron HCl 4 mg tablet 4 mg PO Q8H PRN Nausea 02/13/22 sennosides 8.6 mg-docusate sodium 50 mg tablet 1 tab PO BID PRN CONSTIPATION 02/13/22 zokmfgyp-dtr-ihapf acid 0.4 mg-lycopene 300 mcg-lutein 250 mcg tablet (Centrum Silver) 1 tab PO DAILY vitamin 06/14/22 albuterol sulfate 90 mcg/actuation aerosol inhaler 2 inh inhalation Q4H PRN SOB/WHEEZING 08/15/22 ULTRAFLORA IMMUNE HEALTH 170 mg PO/SL DAILY GUT HEALTH 09/20/22 acetaminophen 500 mg tablet 500 mg PO Q6H PRN Pain 09/20/22 albuterol sulfate 2.5 mg/3 mL (0.083 %) solution for nebulization 2.5 mg inhalation Q4H PRN SOB/WHEEZING 09/20/22 guaifenesin 100 mg/5 mL oral liquid (Siltussin SA) 200 mg PO Q6H PRN COUGH/SORE THROAT 09/20/22 melatonin 5 mg tablet 5 mg PO QHS SLEEP 09/20/22 sertraline 100 mg tablet 200 mg PO DAILY DEPRESSION 09/20/22 hydrocortisone 1 % topical cream (Preparation H Hydrocortisone) 1 applic topical TID PRN Hemorrhoids 09/21/22 buspirone 5 mg tablet 5 mg PO TID mental health 03/14/23 menthol 4 % topical gel (Biofreeze (menthol)) 1 applic topical BID PRN pain 09/21/23 polyethylene glycol 3350 17 gram/dose oral powder (ClearLax) 17 g PO DAILY PRN constipation 09/21/23 pomegranate fruit extract 250 mg capsule 250 mg PO DINNER SUPPLEMENT 03/12/24 bisacodyl 10 mg rectal suppository 10 mg SD DAILY PRN constipation 03/14/24 estradiol 0.01% (0.1 mg/gram) vaginal cream 1 appful vaginal .COMPLEX 03/14/24 magnesium hydroxide 400 mg/5 mL oral suspension (Dulcolax (magnesium hydroxide)) 30 ml PO DAILY PRN constipation 03/14/24 mineral oil (Fsfbf-Eg-Qyl Enema (mineral oil)) 118 ml SD DAILY PRN constipation 03/14/24 ertapenem 1 gram solution for injection 1 g IM DAILY #3 ea 03/17/24 oxycodone-acetaminophen 5 mg-325 mg tablet (Percocet) 1 tab PO TID PRN pain 3 days #9 tabs 03/17/24 Hospital Course Summary of Care Provided Minutes Spent on Discharge: 32 Hospital Course: Pt is a 78y/o female w/ hx of chronic pain, depression, COPD on 2L home O2, chronic debility, morbid obesity who presented to [facility] ED 03/14/2024 for positive urine cultures. She had a positive urine culture at [facility] facility and given her multiple medication allergies and history of resistant organisms patient sent to the ED for IV antibiotics. Patient did have some painful urination for most 2 weeks with some back pain. Urine culture positive for Proteus with notable resistance pattern. Patient given IV antibiotics and infectious disease evaluated, patient did have CT scan of abdomen which showed cystocele and left-sided hydronephrosis and urology saw in consultation, given functional status and patient preference it was deemed there were no interventions available for patient at this time and was advised to treat UTI and DC back to extended care facility, patient agreeable to this plan. Patient to DC on 3 more days of IM ertapenem. Physical Exam Narrative General: Alert, oriented, no apparent distress HEENT: Atraumatic, normocephalic Eyes: Anicteric, normal conjunctiva, extraocular movements grossly intact Neck: Supple Respiratory: Somewhat diminished at the bases, normal respiratory effort Cardiovascular: Regular rate and rhythm GI: Soft, nontender, nondistended Extremities: Trace lower extremity edema Musculoskeletal: Moving all extremities Neuro: No overt focal neurological deficits Skin: No rashes appreciated Psych: Cooperative Weight / BMI Weight Weight: 95.4 kg Body Mass Index (BMI) 41.1 ABG / Lab / Microbiology Data 03/17/24 07:46 03/17/24 07:46 Laboratory: Laboratory Results - last 24 hr 03/17/24 07:46: WBC 7.5, RBC 3.56 L, Hgb 10.7 L, Hct 34.2 L, MCV 96.1, MCH 30.1, MCHC 31.3 L, RDW Std Deviation 46.9 H, RDW Coeff of Zach 13.2, Plt Count 255, MPV 10.3, Immature Gran % (Auto) 0.400, Neut % (Auto) 59.0, Lymph % (Auto) 27.3, Chaves % (Auto) 9.0, Eos % (Auto) 3.9, Baso % (Auto) 0.4, Absolute Neuts (auto) 4.4, Absolute Lymphs (auto) 2.05, Nucleated RBC % 0, Sodium 139, Potassium 3.9, Chloride 106, Carbon Dioxide 28.0, Anion Gap 5, BUN 22 H, Creatinine 0.91, Estim Creat Clear Calc 52.65, Est GFR (MDRD) Af Amer 77, Est GFR (MDRD) Non-Af 63, B UN/Creatinine Ratio 24.2 H, Glucose 105, Calcium 9.8 Microbiology: Microbiology 03/14/24 15:35 Blood Culture (Wb) - Anticubital Right Blood Culture - Preliminary No growth in 48 hours. 03/14/24 15:40 Blood Culture (Wb) - Anticubital Left Blood Culture - Preliminary No growth in 48 hours. D/C Instructions Discharge Diet: No restrictions Meaningful Use Info Meaningful Use Meaningful Use Diagnoses (Choose all that apply): None applicable Ischemic Stroke Statin Dosing Therapy Reference: STATIN DOSE THERAPY REFERENCE: * Patients > 75 years receive moderate or high dose statin therapy. * Patients 75 years or YOUNGER should receive HIGH intensity statin dose unless contraindicated. You will be required to document reason for non-treatment if statin daily dose does not meet guidelines. HIGH DOSE STATIN THERAPY DAILY Atorvastatin > than or = to 40 mg Rosuvastatin > than or = to 20 mg Amlodipine + Atorvastatin > than or = to 2.5/40 mg Ezetimibe + Simvastatin 10/80 mg Simvastatin 80mg Discharge Plan Admission Admit Date/Time: 03/14/24 17:19 Primary Reason for Your Visit: UTI Attending Provider: Esetla Terry Primary Care Provider: Wolf Berry Consulting Providers: Jovanni Rogers; Eben Lamb; Darryl Dawson; Paige Lynne Instructions Patient Instructions: Urinary Tract Infections in Women Discharge Orders/Prescriptions Prescriptions: New ertapenem 1 gram recon soln 1 g IM DAILY Qty: 3 0RF Rx Instructions: dx: esbl uti. Mix with lidocaine. Continued pravastatin 40 mg tablet 40 mg PO QHS duloxetine 60 mg capsule,delayed release(DR/EC) 60 mg PO DAILY metoprolol succinate 50 mg tablet extended release 24 hr 50 mg PO DAILY fluticasone furoate-vilanterol [Breo Ellipta] 100-25 mcg/dose blister with device 1 inh inhalation DAILY buspirone 5 mg tablet 5 mg PO TID naloxone 4 mg/actuation spray,non-aerosol 1 spray intranasal Q2-3M PRN (Reason: OVERDOSE) Rx Instructions: spray 1 dose into ONE nostril; alternate nostrils w each dose until help arrives cholecalciferol (vitamin D3) 100 mcg (4,000 unit) tablet 100 mcg PO DAILY pomegranate fruit extract 250 mg capsule 250 mg PO DINNER albuterol sulfate 90 mcg/actuation HFA aerosol inhaler 2 inh inhalation Q4H PRN (Reason: SOB/WHEEZING) Centrum Silver 0.4 mg-300 mcg- 250 mcg tablet 1 tab PO DAILY methenamine hippurate 1 GM tablet 1 g PO BID Rx Instructions: this can be used ongoing for prevention of uti. gabapentin 300 mg capsule 300 mg PO TID ondansetron HCl 4 mg tablet 4 mg PO Q8H PRN (Reason: Nausea) sennosides-docusate sodium 8.6-50 mg tablet 1 tab PO BID PRN (Reason: CONSTIPATION) albuterol sulfate 2.5 mg /3 mL (0.083 %) Solution For Nebulization 2.5 mg INHALATION Q4H PRN (Reason: SOB/WHEEZING) sertraline 100 mg tablet 200 mg PO DAILY acetaminophen 500 mg Tablet 500 mg PO Q6H PRN (Reason: Pain) guaifenesin [Siltussin SA] 100 mg/5 mL Liquid 200 mg PO Q6H PRN (Reason: COUGH/SORE THROAT) melatonin 5 mg Tablet 5 mg PO QHS ULTRAFLORA IMMUNE HEALTH 170 mg PO/SL DAILY hydrocortisone [Preparation H Hydrocortisone] 1 % Cream 1 applic TOPICAL TID PRN (Reason: Hemorrhoids) Biofreeze (menthol) 4 % gel 1 applic topical BID PRN (Reason: pain) Rx Instructions: apply to shoulder and lower back polyethylene glycol 3350 [ClearLax] 17 gram/dose powder 17 g PO DAILY PRN (Reason: constipation) bisacodyl 10 mg suppository 10 mg SD DAILY PRN (Reason: constipation) mineral oil [Rkwlo-Fj-Ebs Enema (min oil)] Enema 118 ml SD DAILY PRN (Reason: constipation) Rx Instructions: discard any unused portion estradiol 0.01 % (0.1 mg/gram) cream 1 appful vaginal .COMPLEX Patient Comments: PATIENT INSTRUCTIONS STATE TO APPLY TO GROIN TOPICALLY FOR UTI Rx Instructions: 1 appful vaginally; 1 appful vaginally EVERY MON,WED,FRI; magnesium hydroxide [Dulcolax (magnesium hydroxide)] 400 mg/5 mL suspension 30 ml PO DAILY PRN (Reason: constipation) oxycodone-acetaminophen [Percocet] 5-325 mg tablet 1 tab PO TID PRN (Reason: pain) 3 Days Qty: 9 0RF Referrals / Follow Up: Wolf Berry MD [Primary Care Provider] - Within 1 Week Disposition Disposition (needs filled in before D/C Order can be placed): [facility] Facility Charges/Coding Visit Charges Inpatient E&M: 80752 Disch Hosp >30min
--- NOTE | 2024-03-17 14:17 | PHA.DC.MR.R ---
Pharmacy IN Med Reconciliation Pharmacy Service has performed discharge medication reconciliation for this patient. The patient's discharge medication list was reviewed for discrepancies and discrepancies were resolved. Medications at Discharge Home Medications pravastatin 40 mg tablet 40 mg PO QHS CHOLESTEROL 01/17/18 methenamine hippurate 1 gram tablet 1 g PO BID URINARY 04/12/20 duloxetine 60 mg capsule,delayed release 60 mg PO DAILY mental health 06/07/20 metoprolol succinate 50 mg tablet,extended release 24 hr 50 mg PO DAILY HEART 06/07/20 fluticasone furoate 100 mcg-vilanterol 25 mcg/dose inhalation powder (Breo Ellipta) 1 inh inhalation DAILY breathing 08/03/21 gabapentin 300 mg capsule 300 mg PO TID NERVE 08/03/21 cholecalciferol (vitamin D3) 100 mcg (4,000 unit) tablet 100 mcg PO DAILY SUPPLEMENT 02/13/22 naloxone 4 mg/actuation nasal spray 1 spray intranasal Q2-3M PRN OVERDOSE 02/13/22 ondansetron HCl 4 mg tablet 4 mg PO Q8H PRN Nausea 02/13/22 sennosides 8.6 mg-docusate sodium 50 mg tablet 1 tab PO BID PRN CONSTIPATION 02/13/22 xofgfpfo-ddj-oeieh acid 0.4 mg-lycopene 300 mcg-lutein 250 mcg tablet (Centrum Silver) 1 tab PO DAILY vitamin 06/14/22 albuterol sulfate 90 mcg/actuation aerosol inhaler 2 inh inhalation Q4H PRN SOB/WHEEZING 08/15/22 ULTRAFLORA IMMUNE HEALTH 170 mg PO/SL DAILY GUT HEALTH 09/20/22 acetaminophen 500 mg tablet 500 mg PO Q6H PRN Pain 09/20/22 albuterol sulfate 2.5 mg/3 mL (0.083 %) solution for nebulization 2.5 mg inhalation Q4H PRN SOB/WHEEZING 09/20/22 guaifenesin 100 mg/5 mL oral liquid (Siltussin SA) 200 mg PO Q6H PRN COUGH/SORE THROAT 09/20/22 melatonin 5 mg tablet 5 mg PO QHS SLEEP 09/20/22 sertraline 100 mg tablet 200 mg PO DAILY DEPRESSION 09/20/22 hydrocortisone 1 % topical cream (Preparation H Hydrocortisone) 1 applic topical TID PRN Hemorrhoids 09/21/22 buspirone 5 mg tablet 5 mg PO TID mental health 03/14/23 menthol 4 % topical gel (Biofreeze (menthol)) 1 applic topical BID PRN pain 09/21/23 polyethylene glycol 3350 17 gram/dose oral powder (ClearLax) 17 g PO DAILY PRN constipation 09/21/23 pomegranate fruit extract 250 mg capsule 250 mg PO DINNER SUPPLEMENT 03/12/24 bisacodyl 10 mg rectal suppository 10 mg WI DAILY PRN constipation 03/14/24 estradiol 0.01% (0.1 mg/gram) vaginal cream 1 appful vaginal .COMPLEX 03/14/24 magnesium hydroxide 400 mg/5 mL oral suspension (Dulcolax (magnesium hydroxide)) 30 ml PO DAILY PRN constipation 03/14/24 mineral oil (Ntbfk-Dk-Rpu Enema (mineral oil)) 118 ml WI DAILY PRN constipation 03/14/24 ertapenem 1 gram solution for injection 1 g IM DAILY #3 ea 03/17/24 oxycodone-acetaminophen 5 mg-325 mg tablet (Percocet) 1 tab PO TID PRN pain 3 days #9 tabs 03/17/24
[2024-03-17 14:25] VITALS: BP 158/65; PULSE 69; RESP 18; TEMP 36.5; O2SAT 98
--- NOTE | 2024-03-17 14:26 | CASEMGMT ---
Social Work Physician updated and pt is ready for discharge today. SW met with pt and they are agreeable to discharge plan back to [facility].? Bedside nurse and DCA notified of discharge. Disposition:?[facility] , intermediate level of care under convalescent stay YESI Mccabe
--- NOTE | 2024-03-17 14:40 | CASEMGMT ---
Discharge Planning Discharge orders, signed med list, and transport time sent to [facility] via [facility]. Physicians will transport patient by cot at 3:30p. Nursing, SW, patient, and her daughter (Naina) updated. María Aragon DC Planning Asst.
== END 2024-03-17 15:42 | disposition skilled nursing facility (03) | DRG 690 ==
LOC: ED 17:21 → MS3 17:40
PROVIDERS: Admitting Provider Internal Medicine; Emergency Provider Emergency Medicine; PCP Family Medicine; Visit Provider Internal Medicine
DX: N13.6 Pyonephrosis (principal); I42.8 Other cardiomyopathies; J96.11 Chronic respiratory failure with hypoxia; Z68.41 Body mass index [BMI] 40.0-44.9, adult; Z16.12 Extended spectrum beta lactamase (ESBL) resistance; J44.9 Chronic obstructive pulmonary disease, unspecified; E66.01 Morbid (severe) obesity due to excess calories; I10 Essential (primary) hypertension; F41.9 Anxiety disorder, unspecified; G62.9 Polyneuropathy, unspecified; E78.00 Pure hypercholesterolemia, unspecified; M54.9 Dorsalgia, unspecified; N81.10 Cystocele, unspecified; R53.81 Other malaise; B96.4 Proteus (mirabilis) (morganii) as the cause of diseases classified elsewhere; G89.4 Chronic pain syndrome; N31.9 Neuromuscular dysfunction of bladder, unspecified; Z99.81 Dependence on supplemental oxygen; Z79.51 Long term (current) use of inhaled steroids; Z79.899 Other long term (current) drug therapy
CPT/HCPCS: 36415; 74176; 80048; 81002; 83605; 83735; 84100; 85025; 87040; 87077; 87086; 87088; 87186; 94640; 99285; J7030; J7050; A4216

== ENCOUNTER → 2024-06-23 | Outpatient (CLI) | payer MEDICARE, OTHER, MEDICAID, SELFPAY | END | disposition home or self-care (01) | LOC: CVS 06-25 07:35 → LABSPEC 07-01 13:52 | PROVIDERS: PCP Family Medicine; Visit Provider Podiatrist | DX: L97.522 Non-pressure chronic ulcer of other part of left foot with fat layer exposed (principal); I73.9 Peripheral vascular disease, unspecified | CPT/HCPCS: 87070; 87075; 87205 ==

== ENCOUNTER → 2024-06-25 | Outpatient (CLI) | payer MEDICARE, OTHER, MEDICAID, SELFPAY ==
--- NOTE | 2024-06-25 12:44 | MRI_ITS ---
STUDY: MRI RIGHT FOOT REASON FOR EXAM: Female, 79 years old. 2ND TOE OSTEOMYELITIS TECHNIQUE: Standardized fat and water weighted pulse sequences were obtained in all 3 orthogonal planes. COMPARISON: Right foot radiographs dated 06/09/2013. FINDINGS: There is increased STIR marrow signal in the condyle of the second proximal phalanx (sagittal STIR series 9 image 14) without corresponding low T1 marrow, compatible with mild marrow stress edema. Early developing osteomyelitis cannot be entirely excluded. Normal bone marrow of the remainder of the phalanges, metatarsals, and visualized distal tarsal row, without fracture, periostitis, erosions or reactive bone edema. Normal sesamoids without sesamoiditis, fracture or avascular necrosis. Normal joint spaces, without effusions. There are no extraarticular fluid collections. Normal visualized Chopart and Lisfranc joints and normal Lisfranc ligament. Normal intermetatarsal spaces without intermetatarsal (Ewing) neuroma or bursitis. Normal visualized extensor digitorum longus, extensor hallucis longus, flexor digitorum brevis and flexor hallucis longus tendons. Normal visualized plantar fascia without fasciitis, fibromatosis or tear. There is generalized severe atrophy and fatty infiltration of the muscles of the foot. There is moderate to severe subcutaneous soft tissue edema along the dorsum of the foot. MRI/Lower Ext/No Jt/w/o IMPRESSION: Increased STIR marrow signal in the condyle of the second proximal phalanx without corresponding low T1 marrow, compatible with mild marrow stress edema. Early developing osteomyelitis cannot be entirely excluded. Generalized severe atrophy and fatty infiltration of the muscles of the foot. Moderate to severe subcutaneous soft tissue edema along the dorsum of the foot. Electronically Signed: John Eisenberg MD at 15:03 EDT ,
== END | disposition home or self-care (01) ==
LOC: MRI 12:39
PROVIDERS: PCP Family Medicine; Referring Provider Podiatrist; Visit Provider Podiatrist
DX: M86.371 Chronic multifocal osteomyelitis, right ankle and foot (principal)
CPT/HCPCS: 73718

== ENCOUNTER → 2024-07-01 | Outpatient (CLI) | payer MEDICARE, OTHER, MEDICAID, SELFPAY ==
--- NOTE | 2024-07-01 13:45 | ART_ITS ---
Reason For Study: PVD Procedure A bilateral lower extremity continuous wave Doppler with analog waveform analysis,segmental pressures,and ankle brachial indexes without exercise. Left Segmental Pressures Left brachial= 148mmHg. Left calf = 199mmHg. Left posterior tibial artery = 172mmHg. Left dorsalis pedis artery = 163mmHg. Left digit = 129 mmHg. The left posterior tibial artery waveforms are triphasic. The left dorsalis pedis waveforms are triphasic. Right Segmental Pressures Right brachial= 163mmHg. Right calf = 157mmHg. Right posterior tibial artery = 148mmHg. Right dorsalis pedis artery = 170mmHg. Right digit = 119 mmHg. The right posterior tibial artery waveforms are biphasic. The right dorsalis pedis waveforms are triphasic. Indices The right ankle brachial index by the posterior tibial artery is 0.91. The right ankle brachial index by the dorsalis pedis is 1.04. The right digital-brachial index is 0.73. The left ankle brachial index by the posterior tibial artery is 1.06. The left ankle brachial index by the dorsalis pedis is 1.00. The left digital-brachial index is 0.79. VL/Lower Ext Art Exam w/o Exercis Interpretation Summary Right TRA 1.04, normal. Doppler/PVR waveforms of the right leg normal at rest. TBI diminished, pedal/digit disease vs spasm Left TRA 1.06, normal. TBI and Doppler/PVR waveforms of the left leg normal at rest. Ordering Physician: Jan Worley Referring Physician: Wolf Berry Performed By: Ron Gonzales RVT
== END | disposition home or self-care (01) ==
PROVIDERS: PCP Family Medicine; Referring Provider Podiatrist; Visit Provider Podiatrist
DX: I73.9 Peripheral vascular disease, unspecified (principal)
CPT/HCPCS: 93923

== ENCOUNTER → 2024-07-06 | Outpatient (CLI) | payer MEDICARE, OTHER, MEDICAID, SELFPAY ==
--- NOTE | 2024-07-06 14:14 | CT_ITS ---
INDICATION: NEW HEADACHES EXAMINATION: CT BRAIN WITH AND WITHOUT CONTRAST - CT Head or Brain WO/W Contrast Injection TECHNIQUE: Multiple axial images were obtained of the brain with and without IV contrast. The protocol utilizes one or more of the following dose reduction techniques: automated exposure control, adjustment of mA and/or kV according to patient size,and/or use of iterative reconstruction technique. IV Contrast dosage and agent: 50 cc of Isovue-370. RADIATION DOSAGE (If Supplied By Facility): CTDIvol = ( 89.98 ) mGy, DLP = ( 1614.72 ) mGycm COMPARISON: Prior study dated: 07/06/2024 FINDINGS: BRAIN PARENCHYMA: No intra- or extra-axial hemorrhage. No evidence of acute infarct. No intracranial mass or mass effect. There is preservation of the vee/white matter interface. Mild chronic periventricular deep white matter changes likely due to microvascular disease. Occipital cervical fusion with plate and screws unchanged. No abnormal contrast enhancement. CSF SPACES: Appropriate for age. No hydrocephalus. Basal cisterns are patent. CALVARIUM, SKULL BASE, PARANASAL SINUSES AND MASTOID AIR CELLS: Clear. No discrete lytic or blastic abnormalities. ORBITS: Previous cataract surgery. CT/Brain/Head W/WO Contrast IMPRESSION: No acute intracranial process. Electronically Signed: Fran Silver MD at 15:36 EST ,
== END | disposition home or self-care (01) ==
PROVIDERS: PCP Family Medicine; Referring Provider Nurse Practitioner Family; Visit Provider Nurse Practitioner Family
DX: R51.9 Headache, unspecified (principal)
CPT/HCPCS: 70470; Q9967

== ENCOUNTER 2024-08-20 08:00 | Outpatient (RCR) | payer MEDICARE, OTHER, MEDICAID, SELFPAY ==
[2024-08-13 08:21] VITALS: BP 142/63; PULSE 58; RESP 18; TEMP 35.9
--- NOTE | 2024-08-13 09:17 | HP.PCM_ITS ---
History of Present Illness Date of Service: 08/13/24 Chief Complaint: Ulceration dorsal second digit right foot History of Wound: This is a 79-year-old female who was referred to the wound care center for a nonhealing ulceration of the dorsal aspect of the second digit right foot. Patient states ulceration occurred after 2 aids at the [facility] facility transferred her utilizing a Jareth and bumped her toe against a refrigerator. States she has been going to the [facility] for cont inued care with Dr. Worley and they were applying Betadine daily for the last 8 weeks. Patient over that time has failed to progress in wound healing, but also states dressings have not been changed as instructed at her facility. She has followed with vascular surgery with LEAS performed in June 2024 demonstrating adequate perfusion with no evidence of arterial disease. Patient was referred to the wound care center for continued wound healing. She denies N/V/F/chills. Denies pain to the ulcerative site. Denies diabetes. 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 Denies further complaints. [facility] Medical History (Updated 08/13/24 @ 09:[address] Jadon Dolan, DPM) Hydronephrosis Hyperlipidemia Acute hypoxic respiratory failure Vertebral osteomyelitis Abnormal spinal diagnostic imaging History of COPD History of hypertension Fatigue Non-ischemic cardiomyopathy Abnormal CT of thoracic spine Soft tissue mass Vitamin D deficiency Depression Anxiety Chronic back pain Chronic obstructive pulmonary disease Venous insufficiency of right leg PVD (peripheral vascular disease) DDD (degenerative disc disease) COPD (chronic obstructive pulmonary disease) Essential (primary) hypertension MRSA (methicillin resistant staph aureus) culture positive Hemorrhoids Venous ulcer of left lower extremity without varicose veins 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 Foot drop, right Malnutrition Home Medications ?Medication ?Instructions ?Recorded ?Last Taken ?Type pravastatin 40 mg tablet 40 mg PO QHS CHOLESTEROL 01/17/18 03/13/24 History methenamine hippurate 1 gram tablet 1 g PO BID URINARY 04/12/20 03/14/24 History metoprolol succinate 50 mg 50 mg PO DAILY HEART 06/07/20 03/14/24 History tablet,extended release 24 hr fluticasone furoate 100 1 inh inhalation DAILY breathing 08/03/21 09/20/22 History mcg-vilanterol 25 mcg/dose inhalation powder (Breo Ellipta) gabapentin 300 mg capsule 300 mg PO TID NERVE 08/03/21 03/14/24 History cholecalciferol (vitamin D3) 100 100 mcg PO DAILY SUPPLEMENT 02/13/22 03/14/24 History mcg (4,000 unit) tablet naloxone 4 mg/actuation nasal spray 1 spray intranasal Q2-3M PRN 02/13/22 Unknown History OVERDOSE ondansetron HCl 4 mg tablet 4 mg PO Q8H PRN Nausea 02/13/22 Unknown History sennosides 8.6 mg-docusate sodium 1 tab PO BID PRN CONSTIPATION 02/13/22 03/14/24 History 50 mg tablet dtpzxorb-xuv-plrip acid 0.4 1 tab PO DAILY vitamin 06/14/22 03/14/24 History mg-lycopene 300 mcg-lutein 250 mcg tablet (Centrum Silver) albuterol sulfate 90 mcg/actuation 2 inh inhalation Q4H PRN 08/15/22 Unknown History aerosol inhaler SOB/WHEEZING ULTRAFLORA IMMUNE HEALTH 170 mg PO/SL DAILY GUT HEALTH 09/20/22 09/19/22 History acetaminophen 500 mg tablet 500 mg PO Q6H PRN Pain 09/20/22 09/17/22 History albuterol sulfate 2.5 mg/3 mL 2.5 mg inhalation Q4H PRN 09/20/22 09/20/22 History (0.083 %) solution for nebulization SOB/WHEEZING guaifenesin 100 mg/5 mL oral 200 mg PO Q6H PRN COUGH/SORE THROAT 09/20/22 09/20/22 History liquid (Siltussin SA) melatonin 5 mg tablet 5 mg PO QHS SLEEP 09/20/22 03/13/24 History sertraline 100 mg tablet 200 mg PO DAILY DEPRESSION 09/20/22 03/14/24 History hydrocortisone 1 % topical cream 1 applic topical TID PRN 09/21/22 Unknown History (Preparation H Hydrocortisone) Hemorrhoids buspirone 5 mg tablet 5 mg PO TID mental health 03/14/23 03/14/24 History menthol 4 % topical gel (Biofreeze 1 applic topical BID PRN pain 09/21/23 Unknown History (menthol)) polyethylene glycol 3350 17 17 g PO DAILY PRN constipation 09/21/23 Unknown History gram/dose oral powder (ClearLax) pomegranate fruit extract 250 mg 250 mg PO DINNER SUPPLEMENT 03/12/24 03/13/24 History capsule bisacodyl 10 mg rectal suppository 10 mg NH DAILY PRN constipation 03/14/24 Unknown History estradiol 0.01% (0.1 mg/gram) 1 appful vaginal .COMPLEX 03/14/24 Unknown History vaginal cream magnesium hydroxide 400 mg/5 mL 30 ml PO DAILY PRN constipation 03/14/24 Unknown History oral suspension (Dulcolax (magnesium hydroxide)) mineral oil (Jeepc-Xg-Gui Enema 118 ml NH DAILY PRN constipation 03/14/24 Unknown History (mineral oil)) ertapenem 1 gram solution for 1 g IM DAILY #3 ea 03/17/24 Unknown Rx injection oxycodone-acetaminophen 5 mg-325 1 tab PO TID PRN pain 3 days #9 03/17/24 Unknown Rx mg tablet (Percocet) tabs mineral oil ea miscellaneous PRN 06/29/24 Unknown History cefdinir 300 mg capsule 300 mg PO BID 08/13/24 08/13/24 History wellbutin 08/13/24 Unknown History Allergy/AdvReac Type Severity Reaction Status Date / Time morphine Allergy Unknown unknown Verified 06/29/24 09:56 amoxicillin (From Augmentin) AdvReac Nausea/Vom/ Verified 06/29/24 09:56 Diarrhea clavulanic acid (From AdvReac Nausea/Vom/ Verified 06/29/24 09:56 Augmentin) Diarrhea nitrofurantoin AdvReac Vomiting Verified 06/29/24 09:56 macrocrystalline (From Macrodantin) sulfamethoxazole (From AdvReac Nausea/Vom/ Verified 06/29/24 09:56 Bactrim) Diarrhea trimethoprim (From Bactrim) AdvReac Nausea/Vom/ Verified 06/29/24 09:56 Diarrhea Family History Father Hypertension Mother Diabetes Hypertension Brother Diabetes Brother Cancer Sister Hypertension Surgical History History of incisional hernia repair Hx of repair of rotator cuff History of hip replacement History of hysterectomy Social History Smoking Status: Never smoker alcohol intake: never substance use type: does not use caffeine: Yes Type: coffee Number of servings: 2 what type of physical activity do you participate in: none additional social history: Lives at [facility] Constitutional Constitutional: Denies anorexia, chills, fatigue or fever(s) Eyes Eyes: Denies blurry vision, change in vision or double vision ENT HEENT: Denies dysphagia, nasal congestion, nasal discharge or sore throat Cardiovascular Cardiovascular: Denies chest pain, claudication or palpitations Respiratory/Chest Respiratory/Chest: Denies cough, shortness of breath at rest or wheezing Gastrointestinal Gastrointestinal: Denies abdominal pain, constipation, diarrhea, nausea or vomiting Genitourinary Genitourinary: Denies dysuria, hematuria or urinary urgency Musculoskeletal Musculoskeletal: Denies joint pain, joint stiffness or joint swelling Integumentary Integumentary: Denies jaundice, lesions, pruritus or rash Neurologic Neurologic: Denies dizziness, numbness or seizures Psychiatric Psychiatric: Reports anxiety and depression Endocrine Endocrinology: Denies cold intolerance or heat intolerance Hematologic/Lymphatic Hematologic/Lymphatic: Denies easy bleeding, easy bruising or lymphadenopathy Vital Signs Vital Signs Vital Signs: 08/13/24 08:21 Temperature 96.6 F L Temperature Source Temporal Pulse Rate 58 L Respiratory Rate 18 Blood Pressure 142/63 H Blood Pressure Mean 89 Blood Pressure Source Monitor Physical Exam Const alert, oriented x3 and no apparent distress General Appearance: cooperative HEENT normocephalic Eyes General Eye: normal appearance of both eyes Neck General: normal visual inspection Lymph Lymphatic: no lymphadenopathy noted and no lymphedema noted Resp normal respiratory effort Cardio regular rate and regular rhythm Extremity no calf tenderness Extremity Narrative: Right lower extremity: Vascular: DP and PT pulses nonpalpable secondary to edema. CFT is less than 4 seconds to digits. Normal temperature gradient. Hair growth is absent to digits. Neurologic: Diminished sensation secondary to neuropathy post back surgery. Gross sensation intact. Motor function intact. Musculoskeletal: Muscle strength 4 of 5 secondary to prior surgery and nonambulatory status. No pain to palpation of calf. No pain to palpation about ulcerative site. Decreased range of motion of the ankle joint in dorsiflexion with knee extended without pain or crepitus. Decreased range of motion of the first MTPJ without pain or crepitus. Dermatologic: There is moderate lower extremity edema secondary to her prior back surgery. Skin turgor normal. Ulceration to the dorsal aspect of the second digit overlying the proximal interphalangeal joint with depth close to bone. There is dried crusting about the ulcerative margin secondary to serosanguineous drainage with healthy appearing granular base. No erythema, no purulent drainage, no malodor. No signs of infection. Left lower extremity: Vascular: DP and PT pulses nonpalpable secondary to edema. CFT is less than 4 seconds to digits. Normal temperature gradient. Hair growth is absent to digits. Neurologic: Diminished sensation secondary to neuropathy post back surgery. Gross sensation intact. Motor function intact. Musculoskeletal: Muscle strength 4 of 5 secondary to prior surgery and nonambulatory status. No pain to palpation of calf. Decreased range of motion of the ankle joint in dorsiflexion with knee extended without pain or crepitus. Decreased range of motion of the first MTPJ without pain or crepitus. Dermatologic: There is moderate lower extremity edema secondary to her prior back surgery. Skin turgor normal. Skin is mildly xerotic but otherwise unremarkable. Skin no rashes or lesions noted and skin turgor normal Neuro moves all extremities Debridement Note Debridement Note Wound debrided: Dorsal second digit right foot Laterality: Right Wound Grade/Stage: Suarez stage II Type of Debridement: Excisional debridement Anesthesia Used: 5% Lidocaine Gel Depth: Down to and including healthy tissue and in the subcutaneous layer Percentage of wound debrided: 100 Instrument Used: #15 blade and - (1 mm curette) Tissue Removed: Fibrous, devitalized subcutaneous, biofilm, slough Severity: Fat Layer Exposed Amount of bleeding with debridement: Mild Bleeding Controlled with: Compression and gauze Patient tolerated procedure: Patient tolerated procedure well Post-Debridement Measurements and Additional Note: Post-Debridement Measurements/Treatment - Nurse 1 - General Ulcer Assessment Start: 08/13/24 08:20 Freq: Status: Active Protocol: ISRA[place] Activity Type Activity Date Activity User E-sign Co-sign Detail Recorded Client Recorded Date Recorded By Document 08/13/24 08:21 SHAWN [id number] 08/13/24 08:33 DL 08/13/24 08:21 - Today's Visit Information Type of service Initial Visit Arrival Mode Wheelchair Transfer Assistance None Patient Identification Verified (Name & Yes ) Patient Requires Transmission-Based No Precautions Vital Signs Temperature (97.8 F-99.1 F) 96.6 F L Temperature Source Temporal Pulse Rate (60-100) 58 L Pulse Location Monitor Respiratory Rate (12-18) 18 Respiratory rate source Observation Blood Pressure (90/60-120/80) 142/63 H Blood Pressure Mean 89 Source Monitor History Since Last Visit- (Skip if this is Patient's initial visit) Left Footwear Diabetic Shoe Right Footwear Surgical Shoe with pressure relief insole Pain Scale: 0-10 Numeric Is Patient Pain Free? Yes Lower Extremity Assessment/ Foot Assessment/ Toe Nail Assessment Left -Posterior Tibial Doppler Multiphasic -Dorsalis Pedis Doppler Multiphasic -Extremity Color Normal -Hair Growth on Legs No -Hair Growth on Toes No -Temperature of Extremity Warm -Capillary Refill Greater than 3 Seconds -Dependent Rubor No -Blanched when Elevated No -Lipodermatosclerosis No -Other Deformity No -Prior Foot Ulcer No -Charcot Joint No -Prior Amputation No -Thick Yes -Discolored Yes -Deformed No -Improper Length & Hygeine No Right -Posterior Tibial Doppler Multiphasic -Dorsalis Pedis Doppler Multiphasic -Extremity Color Normal -Hair Growth on Legs No -Hair Growth on Toes No -Temperature of Extremity Warm -Capillary Refill Greater than 3 Seconds -Dependent Rubor No -Blanched when Elevated No -Lipodermatosclerosis No -Other Deformity No -Prior Foot Ulcer No -Charcot Joint No -Prior Amputation No -Thick Yes -Discolored Yes -Deformed No -Improper Length & Hygeine No Communication Assessment Preferred language Maldivian Right Hearing Abillity Normal Left Hearing Abillity Normal Teaching Assessment Preferences Verbal,Written, Demonstration Functional Assessment List Device(s) with Patient WC Teaching: Wound Center Control Swelling with Leg Elevation -Person Taught Patient Discharge Instructions -Person Taught Patient Offload: Mattress, Cushion, Reposition -Person Taught Patient Compression Wraps & Stockings -Person Taught Patient *Welcome to the Wound Center -Person Taught Patient WC - Nurse 1 - General Ulcer Measurement Start: 08/13/24 08:20 Freq: Status: Active Protocol: Activity Type Activity Date Activity User E-sign Co-sign Detail Recorded Client Recorded Date Recorded By Document 08/13/24 08:21 DL [id number] 08/13/24 08:33 DL 08/13/24 08:21 Wound Center Nurse 1 #4 R 2nd toe -Current Size (cm) - Length 0.5 -Current Size (cm) - Width 0.5 -Current Size (cm) - Depth 0.1 -Total Square Cm 0.25 -Photo Taken Yes -Classification - Thickness Unclassifiable (Eschar Covered ) -Exudate Amt None Present -Wound Margin Thickened -Granulation Amt None Present (0 %) -Necrosis Amt Large (67-100%) -Necrotic Tissue Type Eschar -Structure Exposed N/A -Texture (Destiny-wound Skin Appearance) Localized Edema ,Scarring -Moisture (Destiny-wound Skin Appearance) No Abnormality -Color (Destiny-wound Skin Appearance) No Abnormality -Temperature (Destiny-wound Skin No Abnormality Appearance) (Pt Warm) -Tenderness on Palpation (Destiny-wound No Skin Appearance) -Ulcer Cleansing Rinsed/ Irrigated with Saline -Foul Odor after Cleansing No -Anesthetic Used 5% Lidocaine Gel Right Calf (cm) 42 Right Ankle (cm) 22.8 Left Calf (cm) 39 Left Ankle (cm) 21.5 WC - Nurse 2 - General Ulcer CM Notes Start: 08/13/24 08:20 Freq: Status: Active Protocol: Activity Type Activity Date Activity User E-sign Co-sign Detail Recorded Client Recorded Date Recorded By Document 08/13/24 08:53 [facility] [id number] 08/13/24 09:01 [facility] 08/13/24 08:53 Wound Center Nurse 2 #4 R 2nd toe -Time 08:53 -Correct Patient Yes -Correct Side, Site, Position Yes -Correct Procedure Yes -Procedure Performed Yes -Type of Procedure Debridement -Clinical Debridement Subcutaneous -Tissue Removed Subcutaneous -Post Debridement (cm) - Length 1 -Post Debridement (cm) - Width 1 -Post Debridement (cm) - Depth 0.2 -Total Square (Post) (cm) 1 -Area of Debridement (cm) - Length 1 -Area of Debridement (cm) - Width 1 -Total Square (Area) (cm) 1 -Tunneling No -Undermining/Tunneling No -Circular Undermining No -Wound/Ulcer Outcome Not Healed -Ulcer Cleansing Rinsed/ Irrigated with Saline -Foul Odor after Cleansing No -Bleeding Controlled with Pressure -Treatment Response Procedure Tolerated Well -Debridement - Subq, 1st 20sq cm Yes Pain Scale: 0-10 Numeric Is Patient Pain Free? Yes Assessment/Plan Assessment/Plan (1) Non-pressure chronic ulcer of other part of right foot with fat layer exposed: CODE(S): L97.512 - Non-pressure chronic ulcer of other part of right foot with fat layer exposed (2) Neuropathy: CODE(S): G62.9 - Polyneuropathy, unspecified (3) Venous insufficiency (chronic) (peripheral): CODE(S): I87.2 - Venous insufficiency (chronic) (peripheral) (4) Bilateral edema of lower extremity: CODE(S): R60.0 - Localized edema PLAN: Plan Patient seen and evaluated Predebridement: 0.9 cm x 0.9 cm x 0.2 cm Ulceration is secondary to trauma during aware assisted transfer at her [facility]. Ulceration underwent debridement as noted in the clinical panel above. Postdebridement measurement 1.0 cm x 1.0 cm x 0.2 cm. Site was cleansed with Dakin's and May applied to the ulcerative base and dressed with dry sterile dressing. Will continue to change daily at the [facility] facility. Discussed continued offloading and surgical shoe. She is to continue to elevate lower extremities at all times of rest for edema control. Patient does have neuropathy and bilateral lower extremity edema secondary to previous back surgery and nonambulatory status. Patient does transport with the assistance of motorized wheelchair. Discussed continued protein intake to aid in wound healing. Nael supplementation/boost was also recommended Will apply for advanced wound care product, EpiFix for application at next visit. Discussed signs and symptoms of infection with the patient and Engagement Manager desktop support technician today. Educated them that if patient experiences increased redness about the ulcerative site that moves along the dorsal foot or up the leg, if she gets purulent drainage from the wound site, increasing foul odor from the wound site, or if she experiences fever greater than 101 degree accompanied by nausea, vomiting, chills that these are signs of a progressing infection and she should report to the ED to receive IV antibiotics and further evaluation. I have discussed potential risks of amputation secondary to depth of the wound and close proximity to bone. She is aware that if infection does set in the digit would likely need to be amputated at the corresponding metatarsal phalangeal joint. The following work up and care recommendations were made: Dressing: Wash with Dakin's daily then apply May and dry sterile dressings. Change dressing daily. Wash: Wash with Dakin's daily. Tissue growth optimization: May Offload: Continue wearing surgical shoe to offload dorsal aspect of the right foot Vascular: LEAS performed June 2024 demonstrating no underlying arterial disease. Vascular status not impeding wound healing Edema: Continue wearing compression stockings and elevate lower extremities to aid in edema control Infection: No signs of infection Pain: No pain secondary to neuropathy related to prior back surgery Host factors: Chronic venous insufficiency, chronic bilateral lower extremity edema, nonambulatory status secondary to prior back surgery I answered all the patient's questions. To return to the wound healing center in 1 week or call sooner if the patient has any questions or concerns.
[2024-08-20 08:17] VITALS: BP 193/69; PULSE 54; RESP 18; TEMP 35.9
--- NOTE | 2024-08-20 08:29 | PN.PCM_ITS ---
History of Present Illness Date of Service: 08/20/24 Chief Complaint: Ulceration dorsal second digit right foot History of Wound: This is a 79-year-old female who was referred to the wound care center for a nonhealing ulceration of the dorsal aspect of the second digit right foot. Patient states ulceration occurred after 2 aids at the [facility] facility transferred her utilizing a Jareth and bumped her toe against a refrigerator. States she has been going to the foot [facility] ankle Center for cont inued care with Dr. Worley and they were applying Betadine daily for the last 8 weeks. Patient over that time has failed to progress in wound healing, but also states dressings have not been changed as instructed at her facility. She has followed with vascular surgery with LEAS performed in June 2024 demonstrating adequate perfusion with no evidence of arterial disease. Patient was referred to the wound care center for continued wound healing. She denies N/V/F/chills. Denies pain to the ulcerative site. Denies diabetes. 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 Denies further complaints. Subjective Subjective This 79-year-old female returns to the wound care center today for continued care of the dorsal ulceration to the second digit of the right foot. She states that correction is changing the dressing daily as instructed utilizing Dakin's to wash followed by May. Denies any further trauma to the site. Denies constitutional symptoms. Denies further complaints. Objective Data Objective Data Vital Signs: Vital Signs Temp Pulse Resp BP 96.6 F L 54 L 18 193/69 H 08/20/24 08:17 08/20/24 08:17 08/20/24 08:17 08/20/24 08:17 Physical Exam Const alert, oriented x3 and no apparent distress General Appearance: cooperative HEENT normocephalic Eyes General Eye: normal appearance of both eyes Neck General: normal visual inspection Lymph Lymphatic: no lymphadenopathy noted and no lymphedema noted Resp normal respiratory effort Cardio regular rate and regular rhythm Extremity no calf tenderness Extremity Narrative: Right lower extremity: Vascular: DP and PT pulses nonpalpable secondary to edema. CFT is less than 4 seconds to digits. Normal temperature gradient. Hair growth is absent to digits. Neurologic: Diminished sensation secondary to neuropathy post back surgery. Gross sensation intact. Motor function intact. Musculoskeletal: Muscle strength 4 of 5 secondary to prior surgery and nonambulatory status. No pain to palpation of calf. No pain to palpation about ulcerative site. Decreased range of motion of the ankle joint in dorsiflexion with knee extended without pain or crepitus. Decreased range of motion of the first MTPJ without pain or crepitus. Dermatologic: There is moderate lower extremity edema secondary to her prior back surgery. Skin turgor normal. Ulceration to the dorsal aspect of the second digit overlying the proximal interphalangeal joint with depth close to bone. There is dried crusting about the ulcerative margin secondary to serosanguineous drainage with healthy appearing granular base. No erythema, no purulent drainage, no malodor. No signs of infection. Left lower extremity: Vascular: DP and PT pulses nonpalpable secondary to edema. CFT is less than 4 seconds to digits. Normal temperature gradient. Hair growth is absent to digits. Neurologic: Diminished sensation secondary to neuropathy post back surgery. Gross sensation intact. Motor function intact. Musculoskeletal: Muscle strength 4 of 5 secondary to prior surgery and nonambulatory status. No pain to palpation of calf. Decreased range of motion of the ankle joint in dorsiflexion with knee extended without pain or crepitus. Decreased range of motion of the first MTPJ without pain or crepitus. Dermatologic: There is moderate lower extremity edema secondary to her prior back surgery. Skin turgor normal. Skin is mildly xerotic but otherwise unremarkable. Skin no rashes or lesions noted and skin turgor normal Neuro moves all extremities Debridement Note Debridement Note Wound debrided: Second digit right foot Laterality: Right Wound Grade/Stage: Suarez stage II Type of Debridement: Excisional debridement Anesthesia Used: 5% Lidocaine Gel Depth: Down to and including healthy tissue and in the subcutaneous layer Percentage of wound debrided: 100 Instrument Used: 3mm curette and #15 blade Tissue Removed: Fibrous, devitalized subcutaneous, biofilm, slough Severity: Fat Layer Exposed Amount of bleeding with debridement: Mild Bleeding Controlled with: Compression and gauze Patient tolerated procedure: Patient tolerated procedure well Post-Debridement Measurements and Additional Note: Post-Debridement Measurements/Treatment ADÁN - Nurse 1 - General Ulcer Assessment Start: 08/13/24 08:20 Freq: Status: Active Protocol: [place] Activity Type Activity Date Activity User E-sign Co-sign Detail Recorded Client Recorded Date Recorded By Document 08/13/24 08:21 SHAWN [id number] 08/13/24 08:33 DL Document 08/20/24 08:17 DL [id number] 08/20/24 08:19 DL 08/13/24 08/20/24 08:21 08:17 WC - Today's Visit Information Type of service Initial Visit Follow-up Visit (Physician/TECHNICAL INFORMATION SPECIALIST ) Arrival Mode Wheelchair Wheelchair Transfer Assistance None None Patient Identification Verified (Name & Yes Yes ) Patient Requires Transmission-Based No No Precautions Vital Signs Temperature (97.8 F-99.1 F) 96.6 F L 96.6 F L Temperature Source Temporal Temporal Pulse Rate (60-100) 58 L 54 L Pulse Location Monitor Monitor Respiratory Rate (12-18) 18 18 Respiratory rate source Observation Observation Blood Pressure (90/60-120/80) 142/63 H 193/69 H Blood Pressure Mean (mm Hg) 89 110 Source Monitor Monitor History Since Last Visit- (Skip if this is Patient's initial visit) Have you changed medications since your No last visit? Any new allergies or adverse reactions No Had a fall/change in ADL's that may No increase risk of falls Signs or symptoms of abuse and/or No neglect since last visit Have you been in the hospital since your No last visit? Has dressing in place as prescribed Yes Has compression in place as prescribed Yes Has offloadiing in place as prescribed Yes Experienced any changes in pain level or No management Left Footwear Diabetic Shoe Diabetic Shoe Right Footwear Surgical Shoe Surgical Shoe with pressure with pressure relief insole relief insole Pain Scale: 0-10 Numeric Is Patient Pain Free? Yes Yes Lower Extremity Assessment/ Foot Assessment/ Toe Nail Assessment Left -Posterior Tibial Doppler Multiphasic -Dorsalis Pedis Doppler Multiphasic -Extremity Color Normal -Hair Growth on Legs No -Hair Growth on Toes No -Temperature of Extremity Warm -Capillary Refill Greater than 3 Seconds -Dependent Rubor No -Blanched when Elevated No -Lipodermatosclerosis No -Other Deformity No -Prior Foot Ulcer No -Charcot Joint No -Prior Amputation No -Thick Yes -Discolored Yes -Deformed No -Improper Length & Hygeine No Right -Posterior Tibial Doppler Multiphasic -Dorsalis Pedis Doppler Multiphasic -Extremity Color Normal -Hair Growth on Legs No -Hair Growth on Toes No -Temperature of Extremity Warm -Capillary Refill Greater than 3 Seconds -Dependent Rubor No -Blanched when Elevated No -Lipodermatosclerosis No -Other Deformity No -Prior Foot Ulcer No -Charcot Joint No -Prior Amputation No -Thick Yes -Discolored Yes -Deformed No -Improper Length & Hygeine No Communication Assessment Preferred language [place] Right Hearing Abillity Normal Left Hearing Abillity Normal Teaching Assessment Preferences Verbal,Written, Demonstration Functional Assessment List Device(s) with Patient WC Teaching: Wound Center Control Swelling with Leg Elevation -Person Taught Patient Discharge Instructions -Person Taught Patient Offload: Mattress, Cushion, Reposition -Person Taught Patient Compression Wraps & Stockings -Person Taught Patient *Welcome to the Wound Center -Person Taught Patient WC - Nurse 1 - General Ulcer Measurement Start: 08/13/24 08:20 Freq: Status: Active Protocol: Activity Type Activity Date Activity User E-sign Co-sign Detail Recorded Client Recorded Date Recorded By Document 08/13/24 08:21 DL [id number] 08/13/24 08:33 DL Document 08/20/24 08:19 DL [id number] 08/20/24 08:22 DL 08/13/24 08/20/24 08:21 08:19 Wound Center Nurse 1 #4 R 2nd toe -Current Size (cm) - Length 0.5 0.1 -Current Size (cm) - Width 0.5 0.1 -Current Size (cm) - Depth 0.1 0.1 -Total Square Cm 0.25 0.01 -Photo Taken Yes -Classification - Thickness Unclassifiable (Eschar Covered ) -Exudate Amt None Present None Present -Wound Margin Thickened Thickened -Granulation Amt None Present (0 None Present (0 %) %) -Necrosis Amt Large (67-100%) None Present (0 %) -Necrotic Tissue Type Eschar -Structure Exposed N/A N/A -Texture (Destiny-wound Skin Appearance) Localized Edema Scarring ,Scarring -Moisture (Destiny-wound Skin Appearance) No Abnormality No Abnormality -Color (Destiny-wound Skin Appearance) No Abnormality No Abnormality -Temperature (Destiny-wound Skin No Abnormality No Abnormality Appearance) (Pt Warm) (Pt Warm) -Tenderness on Palpation (Destiny-wound No Skin Appearance) -Ulcer Cleansing Rinsed/ Rinsed/ Irrigated with Irrigated with Saline Saline -Foul Odor after Cleansing No No -Anesthetic Used 5% Lidocaine 5% Lidocaine Gel Gel Right Calf (cm) 42 Right Ankle (cm) 22.8 Left Calf (cm) 39 Left Ankle (cm) 21.5 WC - Nurse 2 - General Ulcer CM Notes Start: 08/13/24 08:20 Freq: Status: Active Protocol: Activity Type Activity Date Activity User E-sign Co-sign Detail Recorded Client Recorded Date Recorded By Document 08/13/24 08:53 [facility] [id number] 08/13/24 09:01 [facility] 08/13/24 08:53 Wound Center Nurse 2 -Time 08:53 -Correct Patient Yes -Correct Side, Site, Position Yes -Correct Procedure Yes -Procedure Performed Yes -Type of Procedure Debridement -Clinical Debridement Subcutaneous -Tissue Removed Subcutaneous -Post Debridement (cm) - Length 1 -Post Debridement (cm) - Width 1 -Post Debridement (cm) - Depth 0.2 -Total Square (Post) (cm) 1 -Area of Debridement (cm) - Length 1 -Area of Debridement (cm) - Width 1 -Total Square (Area) (cm) 1 -Tunneling No -Undermining/Tunneling No -Circular Undermining No -Wound/Ulcer Outcome Not Healed -Ulcer Cleansing Rinsed/ Irrigated with Saline -Foul Odor after Cleansing No -Bleeding Controlled with Pressure -Treatment Response Procedure Tolerated Well -Debridement - Subq, 1st 20sq cm Yes Pain Scale: 0-10 Numeric Is Patient Pain Free? Yes - Nurse 3 - General Ulcer D/C NN Start: 08/13/24 08:20 Freq: Status: Active Protocol: Activity Type Activity Date Activity User E-sign Co-sign Detail Recorded Client Recorded Date Recorded By Document 08/13/24 09:17 [id number] 08/13/24 09:18 08/13/24 09:17 Wound Care Center Nurse 3 #4 R 2nd toe -Ulcer Cleansing dakins -Foul Odor after Cleansing No -Negative Pressure Wound Therapy N/A -Primary Dressing Applied Hysept ($), Promogran May Matter -Primary Dressing Covered/Secured with Dry Gauze, Secured with Tape -Promogran May Matter 1 Pain Scale: 0-10 Numeric Is Patient Pain Free? Yes - Visit Discharge Discharge Condition Stable Ambulatory Status Wheelchair Transportation Private Auto Assessment/Plan Assessment/Plan (1) Non-pressure chronic ulcer of other part of right foot with fat layer exposed: CODE(S): L97.512 - Non-pressure chronic ulcer of other part of right foot with fat layer exposed (2) Neuropathy: CODE(S): G62.9 - Polyneuropathy, unspecified (3) Venous insufficiency (chronic) (peripheral): CODE(S): I87.2 - Venous insufficiency (chronic) (peripheral) (4) Bilateral edema of lower extremity: CODE(S): R60.0 - Localized edema PLAN: Plan Patient seen and evaluated Predebridement: 0.8 cm x 0.7 cm x 0.2 cm Ulceration is secondary to trauma during aware assisted transfer at her facility. Ulceration underwent debridement as noted in the clinical panel above. Postdebridement measurement 0.9 cm x 0.8 cm x 0.2 cm. No signs of infection. EpiFix graft #1 applied to the ulceration base and site dressed with Adaptic touch anchored with Steri-Strips. Dry sterile dressing applied over grafting site. Will continue to change gauze dressing as needed at the [facility]. Discussed continued offloading and surgical shoe. She is to continue to elevate lower extremities at all times of rest for edema control. Patient does have neuropathy and bilateral lower extremity edema secondary to previous back surgery and nonambulatory status. Patient does transport with the assistance of motorized wheelchair. Discussed continued protein intake to aid in wound healing. Nael supplementation/boost was also recommended to be continued She has been approved for advanced wound care product, EpiFix. Will continue applications Discussed signs and symptoms of infection with the patient and Metallurgist Process remote sensing engineer today. Educated them that if patient experiences increased redness about the ulcerative site that moves along the dorsal foot or up the leg, if she gets purulent drainage from the wound site, increasing foul odor from the wound site, or if she experiences fever greater than 101 degree accompanied by nausea, vomiting, chills that these are signs of a progressing infection and she should report to the ED to receive IV antibiotics and further evaluation. I have discussed potential risks of amputation secondary to depth of the wound and close proximity to bone. She is aware that if infection does set in the digit would likely need to be amputated at the corresponding metatarsal phalangeal joint. The following work up and care recommendations were made: Dressing: EpiFix, Adaptic touch, Steri-Strips, dry sterile dressing. Change outer dressing as needed. Wash: Do not get wet Tissue growth optimization: EpiFix Offload: Continue wearing surgical shoe to offload dorsal aspect of the right foot Vascular: LEAS performed June 2024 demonstrating no underlying arterial disease. Vascular status not impeding wound healing Edema: Continue wearing compression stockings and elevate lower extremities to aid in edema control Infection: No signs of infection Pain: No pain secondary to neuropathy related to prior back surgery Host factors: Chronic venous insufficiency, chronic bilateral lower extremity edema, nonambulatory status secondary to prior back surgery I answered all the patient's questions. To return to the wound healing center in 2 weeks or call sooner if the patient has any questions or concerns.
== END 2024-09-01 23:59 | disposition home or self-care (01) ==
LOC: WC 08:00
PROVIDERS: PCP Family Medicine; Referring Provider Podiatrist; Visit Provider Student in an Organized Health Care Education/Training Program
DX: L97.512 Non-pressure chronic ulcer of other part of right foot with fat layer exposed (principal); J44.9 Chronic obstructive pulmonary disease, unspecified; I42.8 Other cardiomyopathies; R60.0 Localized edema; G62.9 Polyneuropathy, unspecified; I10 Essential (primary) hypertension; E78.5 Hyperlipidemia, unspecified; I87.2 Venous insufficiency (chronic) (peripheral); M54.9 Dorsalgia, unspecified; G89.29 Other chronic pain; F32.A Depression, unspecified; F41.9 Anxiety disorder, unspecified; Z79.51 Long term (current) use of inhaled steroids; Z79.899 Other long term (current) drug therapy
CPT/HCPCS: 11042; 15275; 99213; Q4186; G0463

== ENCOUNTER 2024-10-01 08:00 | Outpatient (RCR) | payer MEDICARE, OTHER, MEDICAID, SELFPAY ==
[2024-09-02 00:29] VITALS: BP 193/69; PULSE 54; RESP 18; TEMP 35.9
[2024-09-03 08:17] VITALS: BP 144/60; PULSE 58; RESP 16; TEMP 36.1
--- NOTE | 2024-09-03 08:38 | PCM.WC.PN ---
History of Present Illness Date of Service: 09/03/24 Chief Complaint: Ulceration dorsal second digit right foot History of Wound: This is a 79-year-old female who was referred to the wound care center for a nonhealing ulceration of the dorsal aspect of the second digit right foot. Patient states ulceration occurred after 2 aids at the [facility] facility transferred her utilizing a Jareth and bumped her toe against a refrigerator. States she has been going to the foot and ankle Center for continued care with Dr. Worley and they were applying Betadine daily for the last 8 weeks. Patient over that time has failed to progress in wound healing, but also states dressings have not been changed as instructed at her facility. She has followed with vascular surgery with LEAS performed in June 2024 demonstrating adequate perfusion with no evidence of arterial disease. Patient was referred to the wound care center for continued wound healing. She denies N/V/F/chills. Denies pain to the ulcerative site. Denies diabetes. 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 Denies further complaints. Subjective Subjective This 79-year-old female returns to the wound care center today for continued care of the dorsal ulceration to the second digit of the right foot. She states that snf is changing the dressing outer as needed but the night staff mistakenly removed all dressings including graft 3 days ago. They have been changing with dry dressing since. Denies any further trauma to the site. Denies constitutional symptoms. Denies further complaints. Objective Data Objective Data Vital Signs: Vital Signs Temp Pulse Resp BP 97 F L 58 L 16 144/60 H 09/03/24 08:17 09/03/24 08:17 09/03/24 08:17 09/03/24 08:17 Physical Exam Const alert, oriented x3 and no apparent distress General Appearance: cooperative HEENT normocephalic Eyes General Eye: normal appearance of both eyes Neck General: normal visual inspection Lymph Lymphatic: no lymphadenopathy noted and no lymphedema noted Resp normal respiratory effort Cardio regular rate and regular rhythm Extremity Extremity Narrative: Right lower extremity: Vascular: DP and PT pulses nonpalpable secondary to edema. CFT is less than 4 seconds to digits. Normal temperature gradient. Hair growth is absent to digits. Neurologic: Diminished sensation secondary to neuropathy post back surgery. Gross sensation intact. Motor function intact. Musculoskeletal: Muscle strength 4 of 5 secondary to prior surgery and nonambulatory status. No pain to palpation of calf. No pain to palpation about ulcerative site. Decreased range of motion of the ankle joint in dorsiflexion with knee extended without pain or crepitus. Decreased range of motion of the first MTPJ without pain or crepitus. Dermatologic: There is moderate lower extremity edema secondary to her prior back surgery. Skin turgor normal. Ulceration to the dorsal aspect of the second digit overlying the proximal interphalangeal joint with depth close to bone, but this is granulating in well. There is dried crusting about the ulcerative margin secondary to serosanguineous drainage with healthy appearing granular base. No erythema, no purulent drainage, no malodor. No signs of infection. Left lower extremity: Vascular: DP and PT pulses nonpalpable secondary to edema. CFT is less than 4 seconds to digits. Normal temperature gradient. Hair growth is absent to digits. Neurologic: Diminished sensation secondary to neuropathy post back surgery. Gross sensation intact. Motor function intact. Musculoskeletal: Muscle strength 4 of 5 secondary to prior surgery and nonambulatory status. No pain to palpation of calf. Decreased range of motion of the ankle joint in dorsiflexion with knee extended without pain or crepitus. Decreased range of motion of the first MTPJ without pain or crepitus. Dermatologic: There is moderate lower extremity edema secondary to her prior back surgery. Skin turgor normal. Skin is mildly xerotic but otherwise unremarkable. Skin no rashes or lesions noted and skin turgor normal Neuro moves all extremities Debridement Note Debridement Note Wound debrided: Dorsal second digit right foot Laterality: Right Wound Grade/Stage: Suarez stage II Type of Debridement: Excisional debridement Anesthesia Used: 5% Lidocaine Gel Depth: Down to and including healthy tissue and in the subcutaneous layer Percentage of wound debrided: 100 Instrument Used: 3mm curette Tissue Removed: Fibrous, devitalized subcutaneous, biofilm, slough Severity: Fat Layer Exposed Amount of bleeding with debridement: Mild Bleeding Controlled with: Compression and gauze Patient tolerated procedure: Patient tolerated procedure well Post-Debridement Measurements and Additional Note: Post-Debridement Measurements/Treatment ADÁN - Nurse 1 - General Ulcer Assessment Start: 09/03/24 08:16 Freq: Status: Active Protocol: ISRAEL Activity Type Activity Date Activity User E-sign Co-sign Detail Recorded Client Recorded Date Recorded By Document 09/03/24 08:17 DL [id number] 09/03/24 08:19 DL 09/03/24 08:17 WC - Today's Visit Information Type of service Follow-up Visit (Physician/EXTRUSION DIE REPAIR MANAGER ) Arrival Mode Wheelchair Transfer Assistance None Patient Identification Verified (Name & Yes ) Patient Requires Transmission-Based No Precautions Vital Signs Temperature (97.8 F-99.1 F) 97 F L Temperature Source Temporal Pulse Rate (60-100) 58 L Pulse Location Monitor Respiratory Rate (12-18) 16 Respiratory rate source Observation Blood Pressure (90/60-120/80) 144/60 H Blood Pressure Mean (mm Hg) 88 Source Monitor History Since Last Visit- (Skip if this is Patient's initial visit) Have you changed medications since your No last visit? Any new allergies or adverse reactions No Had a fall/change in ADL's that may No increase risk of falls Signs or symptoms of abuse and/or No neglect since last visit Have you been in the hospital since your No last visit? Has dressing in place as prescribed Yes Has compression in place as prescribed Yes Has offloadiing in place as prescribed Yes Experienced any changes in pain level or No management Pain Scale: 0-10 Numeric Is Patient Pain Free? Yes - Nurse 1 - General Ulcer Measurement Start: 09/03/24 08:16 Freq: Status: Active Protocol: Activity Type Activity Date Activity User E-sign Co-sign Detail Recorded Client Recorded Date Recorded By Document 09/03/24 08:17 DL [id number] 09/03/24 08:19 DL 09/03/24 08:17 Wound Center Nurse 1 #4 R 2nd toe -Current Size (cm) - Length 0.1 -Current Size (cm) - Width 0.1 -Current Size (cm) - Depth 0.1 -Total Square Cm 0.01 -Photo Taken Yes -Exudate Amt None Present -Wound Margin Thickened -Granulation Amt None Present (0 %) -Necrotic Tissue Type Eschar -Structure Exposed N/A -Texture (Destiny-wound Skin Appearance) Localized Edema ,Scarring -Moisture (Destiny-wound Skin Appearance) Dry/Scaly -Color (Destiny-wound Skin Appearance) No Abnormality -Temperature (Destiny-wound Skin No Abnormality Appearance) (Pt Warm) -Tenderness on Palpation (Destiny-wound No Skin Appearance) -Ulcer Cleansing Rinsed/ Irrigated with Saline -Foul Odor after Cleansing No -Anesthetic Used 5% Lidocaine Gel Assessment/Plan Assessment/Plan (1) Non-pressure chronic ulcer of other part of right foot with fat layer exposed: CODE(S): L97.512 - Non-pressure chronic ulcer of other part of right foot with fat layer exposed (2) Neuropathy: CODE(S): G62.9 - Polyneuropathy, unspecified (3) Venous insufficiency (chronic) (peripheral): CODE(S): I87.2 - Venous insufficiency (chronic) (peripheral) (4) Bilateral edema of lower extremity: CODE(S): R60.0 - Localized edema PLAN: Plan Patient seen and evaluated Predebridement: 0.3 cm x 0.3 cm x 0.2 cm Ulceration is secondary to trauma during aware assisted transfer at her facility. Ulceration underwent debridement as noted in the clinical panel above. Postdebridement measurement 0.4 cm x 0.4 cm x 0.2 cm. No signs of infection. EpiFix graft #2 applied to the ulceration base and site dressed with Adaptic touch anchored with Steri-Strips. Dry sterile dressing applied over grafting site. Will continue to change gauze dressing as needed at the [place] facility. Discussed continued offloading and surgical shoe. Ulcerative site continues to granulate in well with decreased size versus previous visit She is to continue to elevate lower extremities at all times of rest for edema control. Patient does have neuropathy and bilateral lower extremity edema secondary to previous back surgery and nonambulatory status. Patient does transport with the assistance of motorized wheelchair. Discussed continued protein intake to aid in wound healing. Nael supplementation/boost was also recommended to be continued She has been approved for advanced wound care product, EpiFix. Will continue applications Discussed signs and symptoms of infection with the patient and Industrial Sales Representative bulk pallet builder today. Educated them that if patient experiences increased redness about the ulcerative site that moves along the dorsal foot or up the leg, if she gets purulent drainage from the wound site, increasing foul odor from the wound site, or if she experiences fever greater than 101 degree accompanied by nausea, vomiting, chills that these are signs of a progressing infection and she should report to the ED to receive IV antibiotics and further evaluation. I have discussed potential risks of amputation secondary to depth of the wound and close proximity to bone. She is aware that if infection does set in the digit would likely need to be amputated at the corresponding metatarsal phalangeal joint. The following work up and care recommendations were made: Dressing: EpiFix, Adaptic touch, Steri-Strips, dry sterile dressing. Change outer dressing as needed. Wash: Do not get wet Tissue growth optimization: EpiFix Offload: Continue wearing surgical shoe to offload dorsal aspect of the right foot Vascular: LEAS performed June 2024 demonstrating no underlying arterial disease. Vascular status not impeding wound healing Edema: Continue wearing compression stockings and elevate lower extremities to aid in edema control Infection: No signs of infection Pain: No pain secondary to neuropathy related to prior back surgery Host factors: Chronic venous insufficiency, chronic bilateral lower extremity edema, nonambulatory status secondary to prior back surgery I answered all the patient's questions. To return to the wound healing center in 1 week or call sooner if the patient has any questions or concerns.
--- NOTE | 2024-09-10 08:25 | PCM.WC.PN ---
History of Present Illness Date of Service: 09/10/24 Chief Complaint: Ulceration dorsal second digit right foot History of Wound: This is a 79-year-old female who was referred to the wound care center for a nonhealing ulceration of the dorsal aspect of the second digit right foot. Patient states ulceration occurred after 2 aids at the [place] skilled facility transferred her utilizing a Jareth and bumped her toe against a refrigerator. States she has been going to the foot and ankle Center for continued care with Dr. Worley and they were applying Betadine daily for the last 8 weeks. Patient over that time has failed to progress in wound healing, but also states dressings have not been changed as instructed at her facility. She has followed with vascular surgery with LEAS performed in June 2024 demonstrating adequate perfusion with no evidence of arterial disease. Patient was referred to the wound care center for continued wound healing. She denies N/V/F/chills. Denies pain to the ulcerative site. Denies diabetes. 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 Denies further complaints. Subjective Subjective This 79-year-old female returns to the wound care center today for continued care of the dorsal ulceration to the second digit of the right foot. States this time nursing staff left all dressings in place and did not touch graft. Denies any further trauma to the site. Denies constitutional symptoms. Denies further complaints. Objective Data Objective Data Vital Signs: Vital Signs Temp Pulse Resp BP 97 F L 58 L 16 144/60 H 09/03/24 08:17 09/03/24 08:17 09/03/24 08:17 09/03/24 08:17 Physical Exam Const alert, oriented x3 and no apparent distress General Appearance: cooperative HEENT normocephalic Eyes General Eye: normal appearance of both eyes Neck General: normal visual inspection Lymph Lymphatic: no lymphadenopathy noted and no lymphedema noted Resp normal respiratory effort Cardio regular rate and regular rhythm Extremity Extremity Narrative: Right lower extremity: Vascular: DP and PT pulses nonpalpable secondary to edema. CFT is less than 4 seconds to digits. Normal temperature gradient. Hair growth is absent to digits. Neurologic: Diminished sensation secondary to neuropathy post back surgery. Gross sensation intact. Motor function intact. Musculoskeletal: Muscle strength 4 of 5 secondary to prior surgery and nonambulatory status. No pain to palpation of calf. No pain to palpation about ulcerative site. Decreased range of motion of the ankle joint in dorsiflexion with knee extended without pain or crepitus. Decreased range of motion of the first MTPJ without pain or crepitus. Dermatologic: There is moderate lower extremity edema secondary to her prior back surgery. Skin turgor normal. Ulceration to the dorsal aspect of the second digit overlying the proximal interphalangeal joint with depth close to bone, but this is granulating in well and nearing healing. There is dried crusting about the ulcerative margin secondary to serosanguineous drainage with healthy appearing granular base. No erythema, no purulent drainage, no malodor. No signs of infection. Left lower extremity: Vascular: DP and PT pulses nonpalpable secondary to edema. CFT is less than 4 seconds to digits. Normal temperature gradient. Hair growth is absent to digits. Neurologic: Diminished sensation secondary to neuropathy post back surgery. Gross sensation intact. Motor function intact. Musculoskeletal: Muscle strength 4 of 5 secondary to prior surgery and nonambulatory status. No pain to palpation of calf. Decreased range of motion of the ankle joint in dorsiflexion with knee extended without pain or crepitus. Decreased range of motion of the first MTPJ without pain or crepitus. Dermatologic: There is moderate lower extremity edema secondary to her prior back surgery. Skin turgor normal. Skin is mildly xerotic but otherwise unremarkable. Skin no rashes or lesions noted and skin turgor normal Neuro moves all extremities Debridement Note Debridement Note Wound debrided: Dorsal aspect second digit PIPJ right foot Laterality: Right Wound Grade/Stage: Suarez stage II Type of Debridement: Excisional debridement Anesthesia Used: 5% Lidocaine Gel Depth: Down to and including healthy tissue and in the subcutaneous layer Percentage of wound debrided: 100 Instrument Used: #15 blade Tissue Removed: Fibrous, devitalized subcutaneous, biofilm, slough Severity: Fat Layer Exposed Amount of bleeding with debridement: Mild Bleeding Controlled with: Compression and gauze Patient tolerated procedure: Patient tolerated procedure well Post-Debridement Measurements and Additional Note: Post-Debridement Measurements/Treatment ADÁN - Nurse 1 - General Ulcer Assessment Start: 09/03/24 08:16 Freq: Status: Active Protocol: ISRAEL Activity Type Activity Date Activity User E-sign Co-sign Detail Recorded Client Recorded Date Recorded By Document 09/03/24 08:17 DL [id number] 09/03/24 08:19 DL 09/03/24 08:17 WC - Today's Visit Information Type of service Follow-up Visit (Physician/[employer]OV[place] COURT REPORTER ) Arrival Mode Wheelchair Transfer Assistance None Patient Identification Verified (Name & Yes ) Patient Requires Transmission-Based No Precautions Vital Signs Temperature (97.8 F-99.1 F) 97 F L Temperature Source Temporal Pulse Rate (60-100) 58 L Pulse Location Monitor Respiratory Rate (12-18) 16 Respiratory rate source Observation Blood Pressure (90/60-120/80) 144/60 H Blood Pressure Mean (mm Hg) 88 Source Monitor History Since Last Visit- (Skip if this is Patient's initial visit) Have you changed medications since your No last visit? Any new allergies or adverse reactions No Had a fall/change in ADL's that may No increase risk of falls Signs or symptoms of abuse and/or No neglect since last visit Have you been in the hospital since your No last visit? Has dressing in place as prescribed Yes Has compression in place as prescribed Yes Has offloadiing in place as prescribed Yes Experienced any changes in pain level or No management Pain Scale: 0-10 Numeric Is Patient Pain Free? Yes - Nurse 1 - General Ulcer Measurement Start: 09/03/24 08:16 Freq: Status: Active Protocol: Activity Type Activity Date Activity User E-sign Co-sign Detail Recorded Client Recorded Date Recorded By Document 09/03/24 08:17 DL [id number] 09/03/24 08:19 DL 09/03/24 08:17 Wound Center Nurse 1 #4 R 2nd toe -Current Size (cm) - Length 0.1 -Current Size (cm) - Width 0.1 -Current Size (cm) - Depth 0.1 -Total Square Cm 0.01 -Photo Taken Yes -Exudate Amt None Present -Wound Margin Thickened -Granulation Amt None Present (0 %) -Necrotic Tissue Type Eschar -Structure Exposed N/A -Texture (Destiny-wound Skin Appearance) Localized Edema ,Scarring -Moisture (Destiny-wound Skin Appearance) Dry/Scaly -Color (Destiny-wound Skin Appearance) No Abnormality -Temperature (Destiny-wound Skin No Abnormality Appearance) (Pt Warm) -Tenderness on Palpation (Destiny-wound No Skin Appearance) -Ulcer Cleansing Rinsed/ Irrigated with Saline -Foul Odor after Cleansing No -Anesthetic Used 5% Lidocaine Gel - Nurse 2 - General Ulcer CM Notes Start: 09/03/24 08:16 Freq: Status: Active Protocol: Activity Type Activity Date Activity User E-sign Co-sign Detail Recorded Client Recorded Date Recorded By Document 09/03/24 08:47 [facility] [id number] 09/03/24 09:06 [facility] 09/03/24 08:47 Wound Center Nurse 2 -Time 08:49 -Correct Patient Yes -Correct Side, Site, Position Yes -Correct Procedure Yes -Procedure Performed Yes -Type of Procedure Debridement -Clinical Debridement Subcutaneous -Tissue Removed Subcutaneous -Post Debridement (cm) - Length 0.4 -Post Debridement (cm) - Width 0.4 -Post Debridement (cm) - Depth 0.2 -Total Square (Post) (cm) 0.16 -Area of Debridement (cm) - Length 0.4 -Area of Debridement (cm) - Width 0.4 -Total Square (Area) (cm) 0.16 -Tunneling No -Undermining/Tunneling No -Circular Undermining No -Wound/Ulcer Outcome Not Healed -Ulcer Cleansing Rinsed/ Irrigated with Saline -Foul Odor after Cleansing No -Bioengineered Tissue No -Type of Bioengineered Tissue Epifix -Expiration Date 04/02/28 -Product Lot Number [id number] -Percent Used 100 -Lot number of Saline Used [id number] -Bleeding Controlled with Pressure -Treatment Response Procedure Tolerated Well -Debridement - Subq, 1st 20sq cm No -Apply Skin Sub - 1st 25 sq cm - Feet 1 -Epifix (per sq cm) 4 Pain Scale: 0-10 Numeric Is Patient Pain Free? Yes - Nurse 3 - General Ulcer D/C NN Start: 09/03/24 08:16 Freq: Status: Active Protocol: Activity Type Activity Date Activity User E-sign Co-sign Detail Recorded Client Recorded Date Recorded By Document 09/03/24 09:23 DL [id number] 09/03/24 09:24 DL 09/03/24 09:23 Wound Care Center Nurse 3 #4 R 2nd toe -Foul Odor after Cleansing No -Other Dressing Epifix -Primary Dressing Covered/Secured with Dry Gauze, Secured with Tape Treatment Response Procedure Tolerated Well Pain Scale: 0-10 Numeric Is Patient Pain Free? Yes - Visit Discharge Discharge Condition Stable Ambulatory Status Wheelchair Transportation Private Auto Facility Type [facility] Care Facility Orders Sent Yes Assessment/Plan Assessment/Plan (1) Non-pressure chronic ulcer of other part of right foot with fat layer exposed: CODE(S): L97.512 - Non-pressure chronic ulcer of other part of right foot with fat layer exposed (2) Neuropathy: CODE(S): G62.9 - Polyneuropathy, unspecified (3) Venous insufficiency (chronic) (peripheral): CODE(S): I87.2 - Venous insufficiency (chronic) (peripheral) (4) Bilateral edema of lower extremity: CODE(S): R60.0 - Localized edema PLAN: Plan Patient seen and evaluated Predebridement: 0.4 cm x 0.2 cm x 0.1 cm Ulceration is secondary to trauma during aware assisted transfer at her facility. Ulceration underwent debridement as noted in the clinical panel above. Postdebridement measurement 0.5 cm x 0.3 cm x 0.1 cm. No signs of infection. EpiFix graft #3 applied to the ulceration base and site dressed with Adaptic touch anchored with Steri-Strips. Dry sterile dressing applied over grafting site. Will continue to change gauze dressing as needed at the [facility] facility. Discussed continued offloading and surgical shoe. Ulcerative site continues to granulate in well with decreased size and improvement in depth versus previous visit and is nearing closure. She is to continue to elevate lower extremities at all times of rest for edema control. Patient does have neuropathy and bilateral lower extremity edema secondary to previous back surgery and nonambulatory status. Patient does transport with the assistance of motorized wheelchair. Discussed continued protein intake to aid in wound healing. Nael supplementation/boost was also recommended to be continued She has been approved for advanced wound care product, EpiFix. Will continue applications Discussed signs and symptoms of infection with the patient and Machine Baster tacking machine operator today. Educated them that if patient experiences increased redness about the ulcerative site that moves along the dorsal foot or up the leg, if she gets purulent drainage from the wound site, increasing foul odor from the wound site, or if she experiences fever greater than 101 degree accompanied by nausea, vomiting, chills that these are signs of a progressing infection and she should report to the ED to receive IV antibiotics and further evaluation. I have discussed potential risks of amputation secondary to depth of the wound and close proximity to bone. She is aware that if infection does set in the digit would likely need to be amputated at the corresponding metatarsal phalangeal joint. The following work up and care recommendations were made: Dressing: EpiFix, Adaptic touch, Steri-Strips, dry sterile dressing. Change outer dressing as needed. Wash: Do not get wet Tissue growth optimization: EpiFix Offload: Continue wearing surgical shoe to offload dorsal aspect of the right foot Vascular: LEAS performed June 2024 demonstrating no underlying arterial disease. Vascular status not impeding wound healing Edema: Continue wearing compression stockings and elevate lower extremities to aid in edema control Infection: No signs of infection Pain: No pain secondary to neuropathy related to prior back surgery Host factors: Chronic venous insufficiency, chronic bilateral lower extremity edema, nonambulatory status secondary to prior back surgery I answered all the patient's questions. To return to the wound healing center in 1 week or call sooner if the patient has any questions or concerns.
[2024-09-10 08:36] VITALS: BP 155/62; PULSE 57; RESP 18; TEMP 35.3
--- NOTE | 2024-09-15 09:11 | WC ---
PHOTO 09/10/24 RIGHT 2ND TOE
[2024-09-17 08:12] VITALS: BP 153/61; PULSE 55; RESP 18; TEMP 35.7
--- NOTE | 2024-09-17 08:44 | PCM.WC.PN ---
History of Present Illness Date of Service: 09/17/24 Chief Complaint: Ulceration dorsal second digit right foot History of Wound: This is a 79-year-old female who was referred to the wound care center for a nonhealing ulceration of the dorsal aspect of the second digit right foot. Patient states ulceration occurred after 2 aids at the [facility] facility transferred her utilizing a Jaerth and bumped her toe against a refrigerator. States she has been going to the foot and ankle Center for continued care with Dr. Worley and they were applying Betadine daily for the last 8 weeks. Patient over that time has failed to progress in wound healing, but also states dressings have not been changed as instructed at her facility. She has followed with vascular surgery with LEAS performed in June 2024 demonstrating adequate perfusion with no evidence of arterial disease. Patient was referred to the wound care center for continued wound healing. She denies N/V/F/chills. Denies pain to the ulcerative site. Denies diabetes. 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 Denies further complaints. Subjective Subjective This 79-year-old female returns to the wound care center today for continued care of the dorsal ulceration to the second digit of the right foot. [facility] nursing staff continues to leave all dressings in place and did not touch graft. Denies any further trauma to the site. Denies constitutional symptoms. Denies further complaints. Objective Data Objective Data Vital Signs: Vital Signs Temp Pulse Resp BP O2 Del Method 96.3 F L 55 L 18 153/61 H Room Air 09/17/24 08:12 09/17/24 08:12 09/17/24 08:12 09/17/24 08:12 09/17/24 08:12 Oxygen Delivery Method Room Air Physical Exam Const alert, oriented x3 and no apparent distress General Appearance: cooperative HEENT normocephalic Eyes General Eye: normal appearance of both eyes Neck General: normal visual inspection Lymph Lymphatic: no lymphadenopathy noted and no lymphedema noted Resp normal respiratory effort Cardio regular rate and regular rhythm Extremity Extremity Narrative: Right lower extremity: Vascular: DP and PT pulses nonpalpable secondary to edema. CFT is less than 4 seconds to digits. Normal temperature gradient. Hair growth is absent to digits. Neurologic: Diminished sensation secondary to neuropathy post back surgery. Gross sensation intact. Motor function intact. Musculoskeletal: Muscle strength 4 of 5 secondary to prior surgery and nonambulatory status. No pain to palpation of calf. No pain to palpation about ulcerative site. Decreased range of motion of the ankle joint in dorsiflexion with knee extended without pain or crepitus. Decreased range of motion of the first MTPJ without pain or crepitus. Dermatologic: There is moderate lower extremity edema secondary to her prior back surgery. Skin turgor normal. Ulceration to the dorsal aspect of the second digit overlying the proximal interphalangeal joint with depth close to bone, but this is granulating in well and nearing healing. There is dried crusting about the ulcerative margin secondary to serosanguineous drainage with healthy appearing granular base. No erythema, no purulent drainage, no malodor. No signs of infection. Left lower extremity: Vascular: DP and PT pulses nonpalpable secondary to edema. CFT is less than 4 seconds to digits. Normal temperature gradient. Hair growth is absent to digits. Neurologic: Diminished sensation secondary to neuropathy post back surgery. Gross sensation intact. Motor function intact. Musculoskeletal: Muscle strength 4 of 5 secondary to prior surgery and nonambulatory status. No pain to palpation of calf. Decreased range of motion of the ankle joint in dorsiflexion with knee extended without pain or crepitus. Decreased range of motion of the first MTPJ without pain or crepitus. Dermatologic: There is moderate lower extremity edema secondary to her prior back surgery. Skin turgor normal. Skin is mildly xerotic but otherwise unremarkable. Skin no rashes or lesions noted and skin turgor normal Neuro moves all extremities Debridement Note Debridement Note Wound debrided: Dorsal second digit right foot Laterality: Right Wound Grade/Stage: Suarez stage I Type of Debridement: Excisional debridement Anesthesia Used: 5% Lidocaine Gel Depth: Down to and including healthy tissue and in the subcutaneous layer Percentage of wound debrided: 100 Instrument Used: #15 blade and - (1 mm curette) Tissue Removed: Fibrous, devitalized subcutaneous, biofilm, slough Severity: Fat Layer Exposed Amount of bleeding with debridement: Mild Bleeding Controlled with: Compression and gauze Patient tolerated procedure: Patient tolerated procedure well Post-Debridement Measurements and Additional Note: Post-Debridement Measurements/Treatment ADÁN - Nurse 1 - General Ulcer Assessment Start: 09/03/24 08:16 Freq: Status: Active Protocol: [place]RA[place] Activity Type Activity Date Activity User E-sign Co-sign Detail Recorded Client Recorded Date Recorded By Document 09/03/24 08:17 DL [id number] 09/03/24 08:19 DL Document 09/10/24 08:36 RB [id number] 09/10/24 08:38 RB Document 09/17/24 08:12 KW [id number] 09/17/24 08:24 KW 09/03/24 09/10/24 09/17/24 08:17 08:36 08:12 WC - Today's Visit Information Type of service Follow-up Visit Follow-up Visit Follow-up Visit (Physician/SAMPLE SELECTOR (Physician/SAMPLE SELECTOR (Physician/SAMPLE SELECTOR ) ) ) Arrival Mode Wheelchair Wheelchair Wheelchair Transfer Assistance None None Patient Identification Verified (Name & Yes Yes Yes ) Patient Requires Transmission-Based No No Precautions Vital Signs Temperature (97.8 F-99.1 F) 97 F L 95.5 F L 96.3 F L Temperature Source Temporal Temporal Temporal Pulse Rate (60-100) 58 L 57 L 55 L Pulse Location Monitor Monitor Monitor Respiratory Rate (12-18) 16 18 18 Respiratory rate source Observation Observation Observation Oxygen Delivery Method Room Air Blood Pressure (90/60-120/80) 144/60 H 155/62 H 153/61 H Blood Pressure Mean (mm Hg) 88 93 91 Source Monitor Monitor Monitor Position Sitting Semi-Fowlers Blood Pressure Location Right Arm Left Forearm History Since Last Visit- (Skip if this is Patient's initial visit) Have you changed medications since your No No No last visit? Any new allergies or adverse reactions No No No Had a fall/change in ADL's that may No No No increase risk of falls Signs or symptoms of abuse and/or No No No neglect since last visit Have you been in the hospital since your No No No last visit? Has dressing in place as prescribed Yes Yes Yes Has compression in place as prescribed Yes No Yes Has offloadiing in place as prescribed Yes N/A Yes Experienced any changes in pain level or No No No management Left Footwear Regular Shoe Right Footwear Surgical Shoe with pressure relief insole Pain Scale: 0-10 Numeric Is Patient Pain Free? Yes Yes Yes - Nurse 1 - General Ulcer Measurement Start: 09/03/24 08:16 Freq: Status: Active Protocol: Activity Type Activity Date Activity User E-sign Co-sign Detail Recorded Client Recorded Date Recorded By Document 09/03/24 08:17 DL [id number] 09/03/24 08:19 DL Document 09/10/24 08:36 RB [id number] 09/10/24 08:38 RB Document 09/17/24 08:12 KW [id number] 09/17/24 08:24 KW 09/03/24 09/10/24 09/17/24 08:17 08:36 08:12 Wound Center Nurse 1 #4 R 2nd toe -Combined with other wound No -Current Size (cm) - Length 0.1 0.1 0.3 -Current Size (cm) - Width 0.1 0.1 0.5 -Current Size (cm) - Depth 0.1 0.1 0.1 -Total Square Cm 0.01 0.01 0.15 -Date of Last Picture (Recall this 09/17/24 field) -Photo Taken Yes Yes -Tunneling No -Undermining/Tunneling No -Circular Undermining No -Exudate Amt None Present Small Small -Exudate Type Serosanguineous Serosanguineous -Wound Margin Thickened Distinct, Distinct, Outline Outline Attached Attached -Granulation Amt None Present (0 Medium (34-66%) Small (1-33%) %) -Granulation Quality Anderson Anderson -Slough/Fibrin Yes -Necrosis Amt Large (67-100%) Large (67-100%) -Necrotic Tissue Type Eschar Adherent Slough Adherent Slough -Structure Exposed N/A N/A -Texture (Destiny-wound Skin Appearance) Localized Edema Assessed Assessed ,Scarring -Moisture (Destiny-wound Skin Appearance) Dry/Scaly Dry/Scaly Assessed,Dry/ Scaly -Color (Destiny-wound Skin Appearance) No Abnormality Assessed Assessed -Temperature (Destiny-wound Skin No Abnormality No Abnormality No Abnormality Appearance) (Pt Warm) (Pt Warm) (Pt Warm) -Tenderness on Palpation (Destiny-wound No No No Skin Appearance) -Ulcer Cleansing Rinsed/ Wound Cleanser Soap and Water Irrigated with Saline -Foul Odor after Cleansing No No No -Anesthetic Used 5% Lidocaine 5% Lidocaine 5% Lidocaine Gel Gel Gel WC - Nurse 2 - General Ulcer CM Notes Start: 09/03/24 08:16 Freq: Status: Active Protocol: Activity Type Activity Date Activity User E-sign Co-sign Detail Recorded Client Recorded Date Recorded By Document 09/03/24 08:47 [facility] [id number] 09/03/24 09:06 [facility] Document 09/10/24 08:41 [facility] [id number] 09/10/24 08:50 [facility] 09/03/24 09/10/24 08:47 08:41 Wound Center Nurse 2 #4 R 2nd toe -Time 08:49 08:41 -Correct Patient Yes Yes -Correct Side, Site, Position Yes Yes -Correct Procedure Yes Yes -Procedure Performed Yes Yes -Type of Procedure Debridement Debridement -Clinical Debridement Subcutaneous Subcutaneous -Tissue Removed Subcutaneous Subcutaneous -Post Debridement (cm) - Length 0.4 0.5 -Post Debridement (cm) - Width 0.4 0.3 -Post Debridement (cm) - Depth 0.2 0.1 -Total Square (Post) (cm) 0.16 0.15 -Area of Debridement (cm) - Length 0.4 0.5 -Area of Debridement (cm) - Width 0.4 0.3 -Total Square (Area) (cm) 0.16 0.15 -Tunneling No No -Undermining/Tunneling No No -Circular Undermining No No -Wound/Ulcer Outcome Not Healed Not Healed -Ulcer Cleansing Rinsed/ Rinsed/ Irrigated with Irrigated with Saline Saline -Foul Odor after Cleansing No No -Bioengineered Tissue No Yes -Type of Bioengineered Tissue Epifix Epifix 18mm Disc -Expiration Date 04/02/28 04/02/29 -Product Lot Number [id number] -Percent Used 100 100 -Lot number of Saline Used [id number] -Bleeding Controlled with Pressure Pressure -Treatment Response Procedure Procedure Tolerated Well Tolerated Well -Offloading Yes -Type of Offloading Surgical Shoe -Debridement - Subq, 1st 20sq cm No No -Apply Skin Sub - 1st 25 sq cm - Feet 1 1 -Epifix (per sq cm) 4 -Epifix 18mm Disc 3 Pain Scale: 0-10 Numeric Is Patient Pain Free? Yes Yes WC - Nurse 3 - General Ulcer D/C NN Start: 09/03/24 08:16 Freq: Status: Active Protocol: Activity Type Activity Date Activity User E-sign Co-sign Detail Recorded Client Recorded Date Recorded By Document 09/03/24 09:23 DL [id number] 09/03/24 09:24 DL Document 09/10/24 08:57 DL [id number] 09/10/24 09:00 DL 09/03/24 09/10/24 09:23 08:57 Wound Care Center Nurse 3 #4 R 2nd toe -Foul Odor after Cleansing No No -Other Dressing Epifix -Primary Dressing Covered/Secured with Dry Gauze, Dry Gauze, Secured with Secured with Tape Tape Treatment Response Procedure Procedure Tolerated Well Tolerated Well Pain Scale: 0-10 Numeric Is Patient Pain Free? Yes Yes WC - Visit Discharge Discharge Condition Stable Stable Ambulatory Status Wheelchair Wheelchair Transportation Private Auto Facility Type [facility] Care [facility] Care [facility] Facility Orders Sent Yes Assessment/Plan Assessment/Plan (1) Non-pressure chronic ulcer of other part of right foot with fat layer exposed: CODE(S): L97.512 - Non-pressure chronic ulcer of other part of right foot with fat layer exposed (2) Neuropathy: CODE(S): G62.9 - Polyneuropathy, unspecified (3) Venous insufficiency (chronic) (peripheral): CODE(S): I87.2 - Venous insufficiency (chronic) (peripheral) (4) Bilateral edema of lower extremity: CODE(S): R60.0 - Localized edema PLAN: Plan Patient seen and evaluated Predebridement: 0.2 cm x 0.2 cm x 0.1 cm Ulceration is secondary to trauma during aware assisted transfer at her facility. Ulceration underwent debridement as noted in the clinical panel above. Postdebridement measurement 0.3 cm x 0.3 cm x 0.1 cm. No signs of infection. EpiFix graft #4 applied to the ulceration base and site dressed with Adaptic touch anchored with Steri-Strips. Dry sterile dressing applied over grafting site. Will continue to change gauze dressing as needed at the [place] facility. Discussed continued offloading and surgical shoe. Ulcerative site continues to granulate in well with decreased size and improvement overall versus previous visit and is nearing closure. She is to continue to elevate lower extremities at all times of rest for edema control. Patient does have neuropathy and bilateral lower extremity edema secondary to previous back surgery and nonambulatory status. Patient does transport with the assistance of motorized wheelchair. Discussed continued protein intake to aid in wound healing. Nael supplementation/boost was also recommended to be continued She has been approved for advanced wound care product, EpiFix. Will continue applications Discussed signs and symptoms of infection with the patient and [employer] glass cut off tender today. Educated them that if patient experiences increased redness about the ulcerative site that moves along the dorsal foot or up the leg, if she gets purulent drainage from the wound site, increasing foul odor from the wound site, or if she experiences fever greater than 101 degree accompanied by nausea, vomiting, chills that these are signs of a progressing infection and she should report to the ED to receive IV antibiotics and further evaluation. I have discussed potential risks of amputation secondary to depth of the wound and close proximity to bone. She is aware that if infection does set in the digit would likely need to be amputated at the corresponding metatarsal phalangeal joint. The following work up and care recommendations were made: Dressing: EpiFix, Adaptic touch, Steri-Strips, dry sterile dressing. Change outer dressing as needed. Wash: Do not get wet Tissue growth optimization: EpiFix Offload: Continue wearing surgical shoe to offload dorsal aspect of the right foot Vascular: LEAS performed June 2024 demonstrating no underlying arterial disease. Vascular status not impeding wound healing Edema: Continue wearing compression stockings and elevate lower extremities to aid in edema control Infection: No signs of infection Pain: No pain secondary to neuropathy related to prior back surgery Host factors: Chronic venous insufficiency, chronic bilateral lower extremity edema, nonambulatory status secondary to prior back surgery I answered all the patient's questions. To return to the wound healing center in 1 week or call sooner if the patient has any questions or concerns.
--- NOTE | 2024-09-18 09:10 | WC ---
PHOTO 09/17/24 RIGHT 2ND TOE
[2024-09-24 08:13] VITALS: BP 146/70; PULSE 60; RESP 18; TEMP 36.5
--- NOTE | 2024-09-24 08:25 | PCM.WC.PN ---
History of Present Illness Date of Service: 09/24/24 Chief Complaint: Ulceration dorsal second digit right foot History of Wound: This is a 79-year-old female who was referred to the wound care center for a nonhealing ulceration of the dorsal aspect of the second digit right foot. Patient states ulceration occurred after 2 aids at the [facility] facility transferred her utilizing a Jareth and bumped her toe against a refrigerator. States she has been going to the foot and ankle Center for continued care with Dr. Worley and they were applying Betadine daily for the last 8 weeks. Patient over that time has failed to progress in wound healing, but also states dressings have not been changed as instructed at her facility. She has followed with vascular surgery with LEAS performed in June 2024 demonstrating adequate perfusion with no evidence of arterial disease. Patient was referred to the wound care center for continued wound healing. She denies N/V/F/chills. Denies pain to the ulcerative site. Denies diabetes. 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 Denies further complaints. Subjective Subjective This 79-year-old female returns to the wound care center today for continued care of the dorsal ulceration to the second digit of the right foot. [facility] nursing staff continues to leave all dressings in place. Reports they do not touch graft. Thinks she is healing well. Denies any further trauma to the site. Denies constitutional symptoms. Denies further complaints. Objective Data Objective Data Vital Signs: Vital Signs Temp Pulse Resp BP O2 Del Method 97.7 F L 60 18 146/70 H Room Air 09/24/24 08:13 09/24/24 08:13 09/24/24 08:13 09/24/24 08:13 09/17/24 08:12 Oxygen Delivery Method Room Air Physical Exam Const alert, oriented x3 and no apparent distress General Appearance: cooperative HEENT normocephalic Eyes General Eye: normal appearance of both eyes Neck General: normal visual inspection Lymph Lymphatic: no lymphadenopathy noted and no lymphedema noted Resp normal respiratory effort Cardio regular rate and regular rhythm Extremity Extremity Narrative: Right lower extremity: Vascular: DP and PT pulses nonpalpable secondary to edema. CFT is less than 4 seconds to digits. Normal temperature gradient. Hair growth is absent to digits. Neurologic: Diminished sensation secondary to neuropathy post back surgery. Gross sensation intact. Motor function intact. Musculoskeletal: Muscle strength 4 of 5 secondary to prior surgery and nonambulatory status. No pain to palpation of calf. No pain to palpation about ulcerative site. Decreased range of motion of the ankle joint in dorsiflexion with knee extended without pain or crepitus. Decreased range of motion of the first MTPJ without pain or crepitus. Dermatologic: There is moderate lower extremity edema secondary to her prior back surgery. Skin turgor normal. Ulceration to the dorsal aspect of the second digit overlying the proximal interphalangeal joint with depth close to bone, but this is granulating in well and nearing healing/closure. Ulceration demonstrates healthy appearing granular base. No erythema, no purulent drainage, no malodor. No signs of infection. Left lower extremity: Vascular: DP and PT pulses nonpalpable secondary to edema. CFT is less than 4 seconds to digits. Normal temperature gradient. Hair growth is absent to digits. Neurologic: Diminished sensation secondary to neuropathy post back surgery. Gross sensation intact. Motor function intact. Musculoskeletal: Muscle strength 4 of 5 secondary to prior surgery and nonambulatory status. No pain to palpation of calf. Decreased range of motion of the ankle joint in dorsiflexion with knee extended without pain or crepitus. Decreased range of motion of the first MTPJ without pain or crepitus. Dermatologic: There is moderate lower extremity edema secondary to her prior back surgery. Skin turgor normal. Skin is mildly xerotic but otherwise unremarkable. Skin no rashes or lesions noted and skin turgor normal Neuro moves all extremities Debridement Note Debridement Note Wound debrided: Dorsal second digit right foot Laterality: Right Wound Grade/Stage: Suarez stage I Type of Debridement: Excisional debridement Anesthesia Used: 5% Lidocaine Gel Depth: Down to and including healthy tissue and in the subcutaneous layer Percentage of wound debrided: 100 Instrument Used: #15 blade Tissue Removed: Fibrous, devitalized subcutaneous, biofilm, slough Severity: Fat Layer Exposed Amount of bleeding with debridement: Mild Bleeding Controlled with: Compression and gauze Patient tolerated procedure: Patient tolerated procedure well Post-Debridement Measurements and Additional Note: Post-Debridement Measurements/Treatment ADÁN - Nurse 1 - General Ulcer Assessment Start: 09/03/24 08:16 Freq: Status: Active Protocol: [place] Activity Type Activity Date Activity User E-sign Co-sign Detail Recorded Client Recorded Date Recorded By Document 09/03/24 08:17 DL [id number] 09/03/24 08:19 DL Document 09/10/24 08:36 RB [id number] 09/10/24 08:38 RB Document 09/17/24 08:12 KW [id number] 09/17/24 08:24 KW Document 09/24/24 08:13 RB [id number] 09/24/24 08:14 RB 09/03/24 09/10/24 09/17/24 08:17 08:36 08:12 WC - Today's Visit Information Type of service Follow-up Visit Follow-up Visit Follow-up Visit (Physician/FISH FILLETER (Physician/FISH FILLETER (Physician/FISH FILLETER ) ) ) Arrival Mode Wheelchair Wheelchair Wheelchair Transfer Assistance None None Patient Identification Verified (Name & Yes Yes Yes ) Patient Requires Transmission-Based No No Precautions Vital Signs Temperature (97.8 F-99.1 F) 97 F L 95.5 F L 96.3 F L Temperature Source Temporal Temporal Temporal Pulse Rate (60-100) 58 L 57 L 55 L Pulse Location Monitor Monitor Monitor Respiratory Rate (12-18) 16 18 18 Respiratory rate source Observation Observation Observation Oxygen Delivery Method Room Air Blood Pressure (90/60-120/80) 144/60 H 155/62 H 153/61 H Blood Pressure Mean (mm Hg) 88 93 91 Source Monitor Monitor Monitor Position Sitting Semi-Fowlers Blood Pressure Location Right Arm Left Forearm History Since Last Visit- (Skip if this is Patient's initial visit) Have you changed medications since your No No No last visit? Any new allergies or adverse reactions No No No Had a fall/change in ADL's that may No No No increase risk of falls Signs or symptoms of abuse and/or No No No neglect since last visit Have you been in the hospital since your No No No last visit? Has dressing in place as prescribed Yes Yes Yes Has compression in place as prescribed Yes No Yes Has offloadiing in place as prescribed Yes N/A Yes Experienced any changes in pain level or No No No management Left Footwear Regular Shoe Right Footwear Surgical Shoe with pressure relief insole Pain Scale: 0-10 Numeric Is Patient Pain Free? Yes Yes Yes 09/24/24 08:13 WC - Today's Visit Information Type of service Follow-up Visit (Physician/FISH FILLETER ) Arrival Mode Wheelchair Transfer Assistance None Patient Identification Verified (Name & Yes ) Patient Requires Transmission-Based No Precautions Vital Signs Temperature (97.8 F-99.1 F) 97.7 F L Temperature Source Temporal Pulse Rate (60-100) 60 Pulse Location Monitor Respiratory Rate (12-18) 18 Respiratory rate source Observation Oxygen Delivery Method Blood Pressure (90/60-120/80) 146/70 H Blood Pressure Mean (mm Hg) 95 Source Monitor Position Semi-Fowlers Blood Pressure Location Left Arm History Since Last Visit- (Skip if this is Patient's initial visit) Have you changed medications since your No last visit? Any new allergies or adverse reactions No Had a fall/change in ADL's that may No increase risk of falls Signs or symptoms of abuse and/or No neglect since last visit Have you been in the hospital since your No last visit? Has dressing in place as prescribed Yes Has compression in place as prescribed Yes Has offloadiing in place as prescribed N/A Experienced any changes in pain level or No management Left Footwear Right Footwear Pain Scale: 0-10 Numeric Is Patient Pain Free? Yes WC - Nurse 1 - General Ulcer Measurement Start: 09/03/24 08:16 Freq: Status: Active Protocol: Activity Type Activity Date Activity User E-sign Co-sign Detail Recorded Client Recorded Date Recorded By Document 09/03/24 08:17 DL [id number] 09/03/24 08:19 DL Document 09/10/24 08:36 RB [id number] 09/10/24 08:38 RB Document 09/17/24 08:12 KW [id number] 09/17/24 08:24 KW Document 09/24/24 08:13 RB [id number] 09/24/24 08:14 RB 09/03/24 09/10/24 09/17/24 08:17 08:36 08:12 Wound Center Nurse 1 #4 R 2nd toe -Combined with other wound No -Current Size (cm) - Length 0.1 0.1 0.3 -Current Size (cm) - Width 0.1 0.1 0.5 -Current Size (cm) - Depth 0.1 0.1 0.1 -Total Square Cm 0.01 0.01 0.15 -Date of Last Picture (Recall this 09/17/24 field) -Photo Taken Yes Yes -Tunneling No -Undermining/Tunneling No -Circular Undermining No -Exudate Amt None Present Small Small -Exudate Type Serosanguineous Serosanguineous -Wound Margin Thickened Distinct, Distinct, Outline Outline Attached Attached -Granulation Amt None Present (0 Medium (34-66%) Small (1-33%) %) -Granulation Quality [place] -Slough/Fibrin Yes -Necrosis Amt Large (67-100%) Large (67-100%) -Necrotic Tissue Type Eschar Adherent Slough Adherent Slough -Structure Exposed N/A N/A -Texture (Destiny-wound Skin Appearance) Localized Edema Assessed Assessed ,Scarring -Moisture (Destiny-wound Skin Appearance) Dry/Scaly Dry/Scaly Assessed,Dry/ Scaly -Color (Destiny-wound Skin Appearance) No Abnormality Assessed Assessed -Temperature (Destiny-wound Skin No Abnormality No Abnormality No Abnormality Appearance) (Pt Warm) (Pt Warm) (Pt Warm) -Tenderness on Palpation (Destiny-wound No No No Skin Appearance) -Ulcer Cleansing Rinsed/ Wound Cleanser Soap and Water Irrigated with Saline -Foul Odor after Cleansing No No No -Anesthetic Used 5% Lidocaine 5% Lidocaine 5% Lidocaine Gel Gel Gel 09/24/24 08:13 Wound Center Nurse 1 #4 R 2nd toe -Combined with other wound No -Current Size (cm) - Length 0.1 -Current Size (cm) - Width 0.1 -Current Size (cm) - Depth 0.1 -Total Square Cm 0.01 -Date of Last Picture (Recall this field) -Photo Taken No -Tunneling No -Undermining/Tunneling No -Circular Undermining No -Exudate Amt Medium -Exudate Type Serosanguineous -Wound Margin Distinct, Outline Attached -Granulation Amt Medium (34-66%) -Granulation Quality [place] -Slough/Fibrin Yes -Necrosis Amt Medium (34-66%) -Necrotic Tissue Type Adherent Slough -Structure Exposed N/A -Texture (Destiny-wound Skin Appearance) Assessed,Callus -Moisture (Destiny-wound Skin Appearance) Assessed -Color (Destiny-wound Skin Appearance) Assessed -Temperature (Destiny-wound Skin No Abnormality Appearance) (Pt Warm) -Tenderness on Palpation (Destiny-wound No Skin Appearance) -Ulcer Cleansing Wound Cleanser -Foul Odor after Cleansing No -Anesthetic Used 5% Lidocaine Gel WC - Nurse 2 - General Ulcer CM Notes Start: 09/03/24 08:16 Freq: Status: Active Protocol: Activity Type Activity Date Activity User E-sign Co-sign Detail Recorded Client Recorded Date Recorded By Document 09/03/24 08:47 [facility] [id number] 09/03/24 09:06 [facility] Document 09/10/24 08:41 [facility] [id number] 09/10/24 08:50 [facility] Document 09/17/24 08:35 [facility] [id number] 09/17/24 08:53 [facility] 09/03/24 09/10/24 09/17/24 08:47 08:41 08:35 Wound Center Nurse 2 #4 R 2nd toe -Time 08:49 08:41 08:35 -Correct Patient Yes Yes Yes -Correct Side, Site, Position Yes Yes Yes -Correct Procedure Yes Yes Yes -Procedure Performed Yes Yes Yes -Type of Procedure Debridement Debridement Debridement -Clinical Debridement Subcutaneous Subcutaneous Subcutaneous -Tissue Removed Subcutaneous Subcutaneous Subcutaneous -Post Debridement (cm) - Length 0.4 0.5 0.3 -Post Debridement (cm) - Width 0.4 0.3 0.3 -Post Debridement (cm) - Depth 0.2 0.1 0.1 -Total Square (Post) (cm) 0.16 0.15 0.09 -Area of Debridement (cm) - Length 0.4 0.5 0.3 -Area of Debridement (cm) - Width 0.4 0.3 0.3 -Total Square (Area) (cm) 0.16 0.15 0.09 -Tunneling No No No -Undermining/Tunneling No No No -Circular Undermining No No No -Wound/Ulcer Outcome Not Healed Not Healed Not Healed -Ulcer Cleansing Rinsed/ Rinsed/ Rinsed/ Irrigated with Irrigated with Irrigated with Saline Saline Saline -Foul Odor after Cleansing No No No -Bioengineered Tissue No Yes No -Type of Bioengineered Tissue Epifix Epifix 18mm Epifix 18mm Disc Disc -Expiration Date 04/02/28 04/02/29 05/03/29 -Product Lot Number [id number] -Percent Used 100 100 100 -Lot number of Saline Used [id number] -Bleeding Controlled with Pressure Pressure Pressure -Treatment Response Procedure Procedure Procedure Tolerated Well Tolerated Well Tolerated Well -Offloading Yes Yes -Type of Offloading Surgical Shoe Surgical Shoe -Other Type of Offloading non ambulatory -Assistive Device(s) Wheelchair -Debridement - Subq, 1st 20sq cm No No No -Apply Skin Sub - 1st 25 sq cm - Feet 1 1 1 -Epifix (per sq cm) 4 -Epifix 18mm Disc 3 3 Pain Scale: 0-10 Numeric Is Patient Pain Free? Yes Yes Yes - Nurse 3 - General Ulcer D/C NN Start: 09/03/24 08:16 Freq: Status: Active Protocol: Activity Type Activity Date Activity User E-sign Co-sign Detail Recorded Client Recorded Date Recorded By Document 09/03/24 09:23 DL [id number] 09/03/24 09:24 DL Document 09/10/24 08:57 DL [id number] 09/10/24 09:00 DL Document 09/17/24 09:00 KW [id number] 09/17/24 09:01 KW 09/03/24 09/10/24 09/17/24 09:23 08:57 09:00 Wound Care Center Nurse 3 #4 R 2nd toe -Foul Odor after Cleansing No No -Other Dressing Epifix -Primary Dressing Covered/Secured with Dry Gauze, Dry Gauze, Dry Gauze, Secured with Secured with Secured with Tape Tape Tape Treatment Response Procedure Procedure Tolerated Well Tolerated Well Pain Scale: 0-10 Numeric Is Patient Pain Free? Yes Yes Yes - Visit Discharge Discharge Condition Stable Stable Stable Ambulatory Status Wheelchair Wheelchair Walker Transportation [employer] [address] Medication Reconcilliation completed & No provided to patient/care provider Clinical Summary of Care Provided Yes Facility Type Finishing [employer]der [employer] Operator Care Finishing [employer] Operator Care Facility Facility Orders Sent Yes Assessment/Plan Assessment/Plan (1) Non-pressure chronic ulcer of other part of right foot with fat layer exposed: CODE(S): L97.512 - Non-pressure chronic ulcer of other part of right foot with fat layer exposed (2) Neuropathy: CODE(S): G62.9 - Polyneuropathy, unspecified (3) Venous insufficiency (chronic) (peripheral): CODE(S): I87.2 - Venous insufficiency (chronic) (peripheral) (4) Bilateral edema of lower extremity: CODE(S): R60.0 - Localized edema PLAN: Plan Patient seen and evaluated Predebridement: 0.1 cm x 0.2 cm x 0.1 cm Ulceration is secondary to trauma during aware assisted transfer at her facility. Ulceration underwent debridement as noted in the clinical panel above. Postdebridement measurement 0.2 cm x 0.3 cm x 0.1 cm. No signs of infection. EpiFix graft #5 applied to the ulceration base and site dressed with Adaptic touch anchored with Steri-Strips. Dry sterile dressing applied over grafting site. Will continue to change gauze dressing as needed at the [facility] facility. Discussed continued offloading and surgical shoe. Ulcerative site continues to granulate in well with decreased size and improvement overall versus previous visit and continuing to near closure. She is to continue to elevate lower extremities at all times of rest for edema control. Patient does have neuropathy and bilateral lower extremity edema secondary to previous back surgery and nonambulatory status. Patient does transport with the assistance of motorized wheelchair. Discussed continued protein intake to aid in wound healing. Nael supplementation/boost was also recommended to be continued She has been approved for advanced wound care product, EpiFix. Will continue applications Discussed signs and symptoms of infection with the patient and Saw Superintendent railroad shop inspector today. Educated them that if patient experiences increased redness about the ulcerative site that moves along the dorsal foot or up the leg, if she gets purulent drainage from the wound site, increasing foul odor from the wound site, or if she experiences fever greater than 101 degree accompanied by nausea, vomiting, chills that these are signs of a progressing infection and she should report to the ED to receive IV antibiotics and further evaluation. I have discussed potential risks of amputation secondary to depth of the wound and close proximity to bone. She is aware that if infection does set in the digit would likely need to be amputated at the corresponding metatarsal phalangeal joint. The following work up and care recommendations were made: Dressing: EpiFix, Adaptic touch, Steri-Strips, dry sterile dressing. Change outer dressing as needed. Wash: Do not get wet Tissue growth optimization: EpiFix Offload: Continue wearing surgical shoe to offload dorsal aspect of the right foot Vascular: LEAS performed June 2024 demonstrating no underlying arterial disease. Vascular status not impeding wound healing Edema: Continue wearing compression stockings and elevate lower extremities to aid in edema control Infection: No signs of infection Pain: No pain secondary to neuropathy related to prior back surgery Host factors: Chronic venous insufficiency, chronic bilateral lower extremity edema, nonambulatory status secondary to prior back surgery I answered all the patient's questions. To return to the wound healing center in 1 week or call sooner if the patient has any questions or concerns.
[2024-10-01 08:22] VITALS: BP 157/75; PULSE 58; RESP 18; TEMP 35.8
--- NOTE | 2024-10-01 08:39 | PCM.WC.PN ---
History of Present Illness Date of Service: 10/01/24 Chief Complaint: Ulceration dorsal second digit right foot History of Wound: This is a 79-year-old female who was referred to the wound care center for a nonhealing ulceration of the dorsal aspect of the second digit right foot. Patient states ulceration occurred after 2 aids at the [facility] facility transferred her utilizing a Jareth and bumped her toe against a refrigerator. States she has been going to the foot and ankle Center for continued care with Dr. Worley and they were applying Betadine daily for the last 8 weeks. Patient over that time has failed to progress in wound healing, but also states dressings have not been changed as instructed at her facility. She has followed with vascular surgery with LEAS performed in June 2024 demonstrating adequate perfusion with no evidence of arterial disease. Patient was referred to the wound care center for continued wound healing. She denies N/V/F/chills. Denies pain to the ulcerative site. Denies diabetes. 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 Denies further complaints. Subjective Subjective This 79-year-old female returns to the wound care center today for continued care of the dorsal ulceration to the second digit of the right foot. Accompanied by control systems drafting officer from facility. States nursing staff continues to leave all dressings in place. Reports they do not touch graft. Denies drainage. States she bumped her foot on the counter below the sink and is unsure if she hurt her toe. Denies constitutional symptoms. Denies further complaints. Objective Data Objective Data Vital Signs: Vital Signs Temp Pulse Resp BP O2 Del Method O2 Flow Rate 96.4 F L 58 L 18 157/75 H Room Air 2 10/01/24 08:22 10/01/24 08:22 10/01/24 08:22 10/01/24 08:22 09/17/24 08:12 10/01/24 08:22 Oxygen Flow Rate (L/min) 2 Oxygen Delivery Method Room Air Physical Exam Const alert, oriented x3 and no apparent distress General Appearance: cooperative HEENT normocephalic Eyes General Eye: normal appearance of both eyes Neck General: normal visual inspection Lymph Lymphatic: no lymphadenopathy noted and no lymphedema noted Resp normal respiratory effort Cardio regular rate and regular rhythm Extremity Extremity Narrative: Right lower extremity: Vascular: DP and PT pulses nonpalpable secondary to edema. CFT is less than 4 seconds to digits. Normal temperature gradient. Hair growth is absent to digits. Neurologic: Diminished sensation secondary to neuropathy post back surgery. Gross sensation intact. Motor function intact. Musculoskeletal: Muscle strength 4 of 5 secondary to prior surgery and nonambulatory status. No pain to palpation of calf. No pain to palpation about ulcerative site. Decreased range of motion of the ankle joint in dorsiflexion with knee extended without pain or crepitus. Decreased range of motion of the first MTPJ without pain or crepitus. Dermatologic: There is moderate lower extremity edema secondary to her prior back surgery. Skin turgor normal. Ulceration to the dorsal aspect of the second digit overlying the proximal interphalangeal joint demonstrates new epithelialized skin consistent with healing. No erythema, no purulent drainage, no malodor. No signs of infection. Left lower extremity: Vascular: DP and PT pulses nonpalpable secondary to edema. CFT is less than 4 seconds to digits. Normal temperature gradient. Hair growth is absent to digits. Neurologic: Diminished sensation secondary to neuropathy post back surgery. Gross sensation intact. Motor function intact. Musculoskeletal: Muscle strength 4 of 5 secondary to prior surgery and nonambulatory status. No pain to palpation of calf. Decreased range of motion of the ankle joint in dorsiflexion with knee extended without pain or crepitus. Decreased range of motion of the first MTPJ without pain or crepitus. Dermatologic: There is moderate lower extremity edema secondary to her prior back surgery. Skin turgor normal. Skin is mildly xerotic but otherwise unremarkable. Skin no rashes or lesions noted and skin turgor normal Neuro moves all extremities Debridement Note Debridement Note Wound debrided: Dorsal second digit Laterality: Right Wound Grade/Stage: Suarez stage I Type of Debridement: Selective debridement Anesthesia Used: 5% Lidocaine Gel Depth: Down to and including healthy tissue Percentage of wound debrided: 100 Instrument Used: #15 blade Tissue Removed: Fibrous, devitalized subcutaneous, biofilm, slough Severity: Limited To Skin Breakdown Amount of bleeding with debridement: None Patient tolerated procedure: Patient tolerated procedure well Post-Debridement Measurements and Additional Note: Post-Debridement Measurements/Treatment ADÁN - Nurse 1 - General Ulcer Assessment Start: 09/03/24 08:16 Freq: Status: Active Protocol: [place]RA[place] Activity Type Activity Date Activity User E-sign Co-sign Detail Recorded Client Recorded Date Recorded By Document 09/03/24 08:17 DL [id number] 09/03/24 08:19 DL Document 09/10/24 08:36 RB [id number] 09/10/24 08:38 RB Document 09/17/24 08:12 KW [id number] 09/17/24 08:24 KW Document 09/24/24 08:13 RB [id number] 09/24/24 08:14 RB Document 10/01/24 08:22 RB [id number] 10/01/24 08:34 RB 09/03/24 09/10/24 09/17/24 08:17 08:36 08:12 WC - Today's Visit Information Type of service Follow-up Visit Follow-up Visit Follow-up Visit (Physician/DIRECTOR OF SECURITIES AND REAL ESTATE (Physician/DIRECTOR OF SECURITIES AND REAL ESTATE (Physician/DIRECTOR OF SECURITIES AND REAL ESTATE ) ) ) Arrival Mode Wheelchair Wheelchair Wheelchair Transfer Assistance None None Patient Identification Verified (Name & Yes Yes Yes ) Patient Requires Transmission-Based No No Precautions Vital Signs Temperature (97.8 F-99.1 F) 97 F L 95.5 F L 96.3 F L Temperature Source Temporal Temporal Temporal Pulse Rate (60-100) 58 L 57 L 55 L Pulse Location Monitor Monitor Monitor Respiratory Rate (12-18) 16 18 18 Respiratory rate source Observation Observation Observation Oxygen Delivery Method Room Air O2 L/MIN (L/min) Blood Pressure (90/60-120/80) 144/60 H 155/62 H 153/61 H Blood Pressure Mean (mm Hg) 88 93 91 Source Monitor Monitor Monitor Position Sitting Semi-Fowlers Blood Pressure Location Right Arm Left Forearm History Since Last Visit- (Skip if this is Patient's initial visit) Have you changed medications since your No No No last visit? Any new allergies or adverse reactions No No No Had a fall/change in ADL's that may No No No increase risk of falls Signs or symptoms of abuse and/or No No No neglect since last visit Have you been in the hospital since your No No No last visit? Has dressing in place as prescribed Yes Yes Yes Has compression in place as prescribed Yes No Yes Has offloadiing in place as prescribed Yes N/A Yes Experienced any changes in pain level or No No No management Left Footwear Regular Shoe Right Footwear Surgical Shoe with pressure relief insole Pain Scale: 0-10 Numeric Is Patient Pain Free? Yes Yes Yes oma LE -Description -Intensity -Duration (hours) -Pain Behavior -Pain Aggravating Factors -Alleviating Factors/Interventions -Effectiveness of Alleviating Factor/ Intervention 09/24/24 10/01/24 08:13 08:22 WC - Today's Visit Information Type of service Follow-up Visit Follow-up Visit (Physician/DIRECTOR OF SECURITIES AND REAL ESTATE (Physician/DIRECTOR OF SECURITIES AND REAL ESTATE ) ) Arrival Mode Wheelchair Wheelchair Transfer Assistance None None Patient Identification Verified (Name & Yes Yes ) Patient Requires Transmission-Based No No Precautions Vital Signs Temperature (97.8 F-99.1 F) 97.7 F L 96.4 F L Temperature Source Temporal Temporal Pulse Rate (60-100) 60 58 L Pulse Location Monitor Monitor Respiratory Rate (12-18) 18 18 Respiratory rate source Observation Observation Oxygen Delivery Method O2 L/MIN (L/min) 2 Blood Pressure (90/60-120/80) 146/70 H 157/75 H Blood Pressure Mean (mm Hg) 95 102 Source Monitor Monitor Position Semi-Fowlers Semi-Fowlers Blood Pressure Location Left Arm Left Arm History Since Last Visit- (Skip if this is Patient's initial visit) Have you changed medications since your No No last visit? Any new allergies or adverse reactions No No Had a fall/change in ADL's that may No No increase risk of falls Signs or symptoms of abuse and/or No No neglect since last visit Have you been in the hospital since your No No last visit? Has dressing in place as prescribed Yes Yes Has compression in place as prescribed Yes Yes Has offloadiing in place as prescribed N/A Yes Experienced any changes in pain level or No No management Left Footwear Diabetic Shoe Right Footwear Surgical Shoe with pressure relief insole Pain Scale: 0-10 Numeric Is Patient Pain Free? Yes No bilat LE -Description Aching -Intensity 8 -Duration (hours) Acute -Pain Behavior Withdrawal from Touch -Pain Aggravating Factors Changing Position, Debridement -Alleviating Factors/Interventions Medication -Effectiveness of Alleviating Factor/ Moderately Intervention effective WC - Nurse 1 - General Ulcer Measurement Start: 09/03/24 08:16 Freq: Status: Active Protocol: Activity Type Activity Date Activity User E-sign Co-sign Detail Recorded Client Recorded Date Recorded By Document 09/03/24 08:17 DL [id number] 09/03/24 08:19 DL Document 09/10/24 08:36 RB [id number] 09/10/24 08:38 RB Document 09/17/24 08:12 KW [id number] 09/17/24 08:24 KW Document 09/24/24 08:13 RB [id number] 09/24/24 08:14 RB Document 10/01/24 08:22 RB [id number] 10/01/24 08:34 RB 09/03/24 09/10/24 09/17/24 08:17 08:36 08:12 Wound Center Nurse 1 #4 R 2nd toe -Combined with other wound No -Current Size (cm) - Length 0.1 0.1 0.3 -Current Size (cm) - Width 0.1 0.1 0.5 -Current Size (cm) - Depth 0.1 0.1 0.1 -Total Square Cm 0.01 0.01 0.15 -Date of Last Picture (Recall this 09/17/24 field) -Photo Taken Yes Yes -Tunneling No -Undermining/Tunneling No -Circular Undermining No -Exudate Amt None Present Small Small -Exudate Type Serosanguineous Serosanguineous -Wound Margin Thickened Distinct, Distinct, Outline Outline Attached Attached -Granulation Amt None Present (0 Medium (34-66%) Small (1-33%) %) -Granulation Quality [place] -Slough/Fibrin Yes -Necrosis Amt Large (67-100%) Large (67-100%) -Necrotic Tissue Type Eschar Adherent Slough Adherent Slough -Structure Exposed N/A N/A -Texture (Destiny-wound Skin Appearance) Localized Edema Assessed Assessed ,Scarring -Moisture (Destiny-wound Skin Appearance) Dry/Scaly Dry/Scaly Assessed,Dry/ Scaly -Color (Destiny-wound Skin Appearance) No Abnormality Assessed Assessed -Temperature (Destiny-wound Skin No Abnormality No Abnormality No Abnormality Appearance) (Pt Warm) (Pt Warm) (Pt Warm) -Tenderness on Palpation (Destiny-wound No No No Skin Appearance) -Ulcer Cleansing Rinsed/ Wound Cleanser Soap and Water Irrigated with Saline -Foul Odor after Cleansing No No No -Anesthetic Used 5% Lidocaine 5% Lidocaine 5% Lidocaine Gel Gel Gel Lower Limb Edema Present Right Calf (cm) Right Ankle (cm) 09/24/24 10/01/24 08:13 08:22 Wound Center Nurse 1 #4 R 2nd toe -Combined with other wound No No -Current Size (cm) - Length 0.1 0.7 -Current Size (cm) - Width 0.1 0.7 -Current Size (cm) - Depth 0.1 0.1 -Total Square Cm 0.01 0.49 -Date of Last Picture (Recall this field) -Photo Taken No -Tunneling No No -Undermining/Tunneling No No -Circular Undermining No No -Exudate Amt Medium Medium -Exudate Type Serosanguineous Serosanguineous -Wound Margin Distinct, Distinct, Outline Outline Attached Attached -Granulation Amt Medium (34-66%) Medium (34-66%) -Granulation Quality [place] -Slough/Fibrin Yes Yes -Necrosis Amt Medium (34-66%) Small (1-33%) -Necrotic Tissue Type Adherent Slough Adherent Slough -Structure Exposed N/A N/A -Texture (Destiny-wound Skin Appearance) Assessed,Callus Assessed -Moisture (Destiny-wound Skin Appearance) Assessed Dry/Scaly -Color (Destiny-wound Skin Appearance) Assessed Assessed -Temperature (Destiny-wound Skin No Abnormality No Abnormality Appearance) (Pt Warm) (Pt Warm) -Tenderness on Palpation (Destiny-wound No No Skin Appearance) -Ulcer Cleansing Wound Cleanser Wound Cleanser -Foul Odor after Cleansing No No -Anesthetic Used 5% Lidocaine 5% Lidocaine Gel Gel Lower Limb Edema Present Yes Right Calf (cm) 42 Right Ankle (cm) 24.2 WC - Nurse 2 - General Ulcer CM Notes Start: 09/03/24 08:16 Freq: Status: Active Protocol: Activity Type Activity Date Activity User E-sign Co-sign Detail Recorded Client Recorded Date Recorded By Document 09/03/24 08:47 [facility] [id number] 09/03/24 09:06 BM Document 09/10/24 08:41 BM [id number] 09/10/24 08:50 BM Document 09/17/24 08:35 BM [id number] 09/17/24 08:53 BM Document 09/24/24 08:20 BM [id number] 09/24/24 08:34 BMF 09/03/24 09/10/24 09/17/24 08:47 08:41 08:35 Wound Center Nurse 2 #4 R 2nd toe -Time 08:49 08:41 08:35 -Correct Patient Yes Yes Yes -Correct Side, Site, Position Yes Yes Yes -Correct Procedure Yes Yes Yes -Procedure Performed Yes Yes Yes -Type of Procedure Debridement Debridement Debridement -Clinical Debridement Subcutaneous Subcutaneous Subcutaneous -Tissue Removed Subcutaneous Subcutaneous Subcutaneous -Post Debridement (cm) - Length 0.4 0.5 0.3 -Post Debridement (cm) - Width 0.4 0.3 0.3 -Post Debridement (cm) - Depth 0.2 0.1 0.1 -Total Square (Post) (cm) 0.16 0.15 0.09 -Area of Debridement (cm) - Length 0.4 0.5 0.3 -Area of Debridement (cm) - Width 0.4 0.3 0.3 -Total Square (Area) (cm) 0.16 0.15 0.09 -Tunneling No No No -Undermining/Tunneling No No No -Circular Undermining No No No -Wound/Ulcer Outcome Not Healed Not Healed Not Healed -Ulcer Cleansing Rinsed/ Rinsed/ Rinsed/ Irrigated with Irrigated with Irrigated with Saline Saline Saline -Foul Odor after Cleansing No No No -Bioengineered Tissue No Yes No -Type of Bioengineered Tissue Epifix Epifix 18mm Epifix 18mm Disc Disc -Expiration Date 04/02/28 04/02/29 05/03/29 -Product Lot Number [id number] -Percent Used 100 100 100 -Lot number of Saline Used [id number] -Bleeding Controlled with Pressure Pressure Pressure -Treatment Response Procedure Procedure Procedure Tolerated Well Tolerated Well Tolerated Well -Offloading Yes Yes -Type of Offloading Surgical Shoe Surgical Shoe -Other Type of Offloading non ambulatory -Total Non-Weight Bearing to -Assistive Device(s) Wheelchair -Debridement - Subq, 1st 20sq cm No No No -Apply Skin Sub - 1st 25 sq cm - Feet 1 1 1 -Epifix (per sq cm) 4 -Epifix 18mm Disc 3 3 Pain Scale: 0-10 Numeric Is Patient Pain Free? Yes Yes Yes 09/24/24 08:20 Wound Center Nurse 2 #4 R 2nd toe -Time 08:20 -Correct Patient Yes -Correct Side, Site, Position Yes -Correct Procedure Yes -Procedure Performed Yes -Type of Procedure Debridement -Clinical Debridement Subcutaneous -Tissue Removed Subcutaneous -Post Debridement (cm) - Length 0.2 -Post Debridement (cm) - Width 0.3 -Post Debridement (cm) - Depth 0.1 -Total Square (Post) (cm) 0.06 -Area of Debridement (cm) - Length 0.2 -Area of Debridement (cm) - Width 0.3 -Total Square (Area) (cm) 0.06 -Tunneling No -Undermining/Tunneling No -Circular Undermining No -Wound/Ulcer Outcome Not Healed -Ulcer Cleansing Rinsed/ Irrigated with Saline -Foul Odor after Cleansing No -Bioengineered Tissue Yes -Type of Bioengineered Tissue Epifix 18mm Disc -Expiration Date 05/03/29 -Product Lot Number [id number] -Percent Used 100 -Lot number of Saline Used [id number] -Bleeding Controlled with Pressure -Treatment Response Procedure Tolerated Well -Offloading Yes -Type of Offloading Surgical Shoe -Other Type of Offloading -Total Non-Weight Bearing to Right Lower Extremity -Assistive Device(s) -Debridement - Subq, 1st 20sq cm No -Apply Skin Sub - 1st 25 sq cm - Feet 1 -Epifix (per sq cm) -Epifix 18mm Disc 3 Pain Scale: 0-10 Numeric Is Patient Pain Free? Yes WC - Nurse 3 - General Ulcer D/C NN Start: 09/03/24 08:16 Freq: Status: Active Protocol: Activity Type Activity Date Activity User E-sign Co-sign Detail Recorded Client Recorded Date Recorded By Document 09/03/24 09:23 DL [id number] 09/03/24 09:24 DL Document 09/10/24 08:57 DL [id number] 09/10/24 09:00 DL Document 09/17/24 09:00 KW [id number] 09/17/24 09:01 KW Document 09/24/24 08:44 DL [id number] 09/24/24 08:44 DL 09/03/24 09/10/24 09/17/24 09:23 08:57 09:00 Wound Care Center Nurse 3 #4 R 2nd toe -Foul Odor after Cleansing No No -Other Dressing Epifix -Primary Dressing Covered/Secured with Dry Gauze, Dry Gauze, Dry Gauze, Secured with Secured with Secured with Tape Tape Tape filiberto -Stockings Treatment Response Procedure Procedure Tolerated Well Tolerated Well Pain Scale: 0-10 Numeric Is Patient Pain Free? Yes Yes Yes WC - Visit Discharge Discharge Condition Stable Stable Stable Ambulatory Status Wheelchair Wheelchair Walker Transportation Private Auto avenue Medication Reconcilliation completed & No provided to patient/care provider Clinical Summary of Care Provided Yes Facility Type Structures Technician Care Structures Technician Care Facility Facility Orders Sent Yes 09/24/24 08:44 Wound Care Center Nurse 3 #4 R 2nd toe -Foul Odor after Cleansing No -Other Dressing -Primary Dressing Covered/Secured with Dry Gauze, Secured with Tape filiberto -Stockings Yes Treatment Response Procedure Tolerated Well Pain Scale: 0-10 Numeric Is Patient Pain Free? Yes WC - Visit Discharge Discharge Condition Stable Ambulatory Status Wheelchair Transportation Private Auto Medication Reconcilliation completed & provided to patient/care provider Clinical Summary of Care Provided Facility Type [facility] Orders Sent Yes Assessment/Plan Assessment/Plan (1) Non-pressure chronic ulcer of other part of right foot with fat layer exposed: CODE(S): L97.512 - Non-pressure chronic ulcer of other part of right foot with fat layer exposed (2) Neuropathy: CODE(S): G62.9 - Polyneuropathy, unspecified (3) Venous insufficiency (chronic) (peripheral): CODE(S): I87.2 - Venous insufficiency (chronic) (peripheral) (4) Bilateral edema of lower extremity: CODE(S): R60.0 - Localized edema PLAN: Plan Patient seen and evaluated Predebridement: 0.1 cm x 0.1 cm x 0.1 cm Ulceration is secondary to trauma during aware assisted transfer at her facility. Ulceration underwent debridement as noted in the clinical panel above. Postdebridement measurement 0.1 cm x 0.1 cm x 0.1 cm with newly epithelialized, yet friable skin with no open ulcerative area. No signs of infection. Due to healing nature with new skin formation we will refrain from application of additional EpiFix grafting today. EpiFix graft #5 applied to the ulceration base 09/24/2024. Today we will pad and protect area of newly healed skin with Band-Aid. She may wash with soap and water and continue to pad and protect site for next 10 to 14 days. Ulcerative site continues to granulate in well with healed status versus previous visit. She is to continue to elevate lower extremities at all times of rest for edema control. Patient does have neuropathy and bilateral lower extremity edema secondary to previous back surgery and nonambulatory status. Patient does transport with the assistance of motorized wheelchair. Discussed continued protein intake to aid in wound healing. Nael supplementation/boost was also recommended to be continued She has been approved for advanced wound care product, EpiFix. Will continue applications if reulceration occurs Discussed signs and symptoms of infection with the patient and Settlement Agent control systems drafting officer today. Educated them that if patient experiences increased redness about the ulcerative site that moves along the dorsal foot or up the leg, if she gets purulent drainage from the wound site, increasing foul odor from the wound site, or if she experiences fever greater than 101 degree accompanied by nausea, vomiting, chills that these are signs of a progressing infection and she should report to the ED to receive IV antibiotics and further evaluation. I have discussed potential risks of amputation secondary to depth of the wound and close proximity to bone. She is aware that if infection does set in the digit would likely need to be amputated at the corresponding metatarsal phalangeal joint. The following work up and care recommendations were made: Dressing: Band-Aid to pad and protect next 10 to 14 days Wash: Soap and water Tissue growth optimization: None Offload: Continue wearing surgical shoe to offload dorsal aspect of the right foot Vascular: LEAS performed June 2024 demonstrating no underlying arterial disease. Vascular status not impeding wound healing Edema: Continue wearing compression stockings and elevate lower extremities to aid in edema control Infection: No signs of infection Pain: No pain secondary to neuropathy related to prior back surgery Host factors: Chronic venous insufficiency, chronic bilateral lower extremity edema, nonambulatory status secondary to prior back surgery If site remains closed at next visit we will discharge from the wound care center. I answered all the patient's questions. To return to the wound healing center in 2 weekS or call sooner if the patient has any questions or concerns.
== END 2024-10-02 23:59 | disposition home or self-care (01) ==
LOC: WC 08:00
PROVIDERS: PCP Family Medicine; Referring Provider Podiatrist; Visit Provider Student in an Organized Health Care Education/Training Program
DX: L97.512 Non-pressure chronic ulcer of other part of right foot with fat layer exposed (principal); W22.09XS Striking against other stationary object, sequela; R60.0 Localized edema; I87.2 Venous insufficiency (chronic) (peripheral); G62.9 Polyneuropathy, unspecified; Z79.899 Other long term (current) drug therapy
CPT/HCPCS: 15275; 97597; Q4186

== ENCOUNTER 2024-10-22 08:00 | Outpatient (RCR) | payer MEDICARE, OTHER, MEDICAID, SELFPAY ==
[2024-10-03 00:52] VITALS: BP 157/75; PULSE 58; RESP 18; TEMP 35.8
[2024-10-15 08:10] VITALS: BP 155/41; PULSE 62; RESP 18; TEMP 35.9
--- NOTE | 2024-10-15 09:24 | PCM.WC.PN ---
History of Present Illness Date of Service: 10/15/24 Chief Complaint: Ulceration dorsal second digit right foot History of Wound: This is a 79-year-old female who was referred to the wound care center for a nonhealing ulceration of the dorsal aspect of the second digit right foot. Patient states ulceration occurred after 2 aids at the [place] skilled facility transferred her utilizing a Jareth and bumped her toe against a refrigerator. States she has been going to the [facility] for continued care with Dr. Worley and they were applying Betadine daily for the last 8 weeks. Patient over that time has failed to progress in wound healing, but also states dressings have not been changed as instructed at her facility. She has followed with vascular surgery with LEAS performed in June 2024 demonstrating adequate perfusion with no evidence of arterial disease. Patient was referred to the wound care center for continued wound healing. She denies N/V/F/chills. Denies pain to the ulcerative site. Denies diabetes. 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 Denies further complaints. Subjective Subjective This 79-year-old female returns to the wound care center today for continued care of the dorsal ulceration to the second digit of the right foot. Accompanied by cotton roll packer from facility. States scabbing is bigger over her toe than last visit. Does not recall if she bumped her toe in transport or at facility. Does have neuropathy and has no sensation to the foot. Persistent swelling remains to lower extremities. Denies constitutional symptoms. Denies further complaints. Objective Data Objective Data Vital Signs: Vital Signs Temp Pulse Resp BP O2 Flow Rate 96.6 F L 62 18 155/41 H 2 10/15/24 08:10 10/15/24 08:10 10/15/24 08:10 10/15/24 08:10 10/03/24 00:52 Oxygen Flow Rate (L/min) 2 Physical Exam Const alert, oriented x3 and no apparent distress General Appearance: cooperative HEENT normocephalic Eyes General Eye: normal appearance of both eyes Neck General: normal visual inspection Lymph Lymphatic: no lymphadenopathy noted and no lymphedema noted Resp normal respiratory effort Cardio regular rate and regular rhythm Extremity no calf tenderness Extremity Narrative: Right lower extremity: Vascular: DP and PT pulses nonpalpable secondary to edema. CFT is less than 4 seconds to digits. Normal temperature gradient. Hair growth is absent to digits. Neurologic: Diminished sensation secondary to neuropathy post back surgery. Gross sensation intact. Motor function intact. Musculoskeletal: Muscle strength 4 of 5 secondary to prior surgery and nonambulatory status. No pain to palpation of calf. No pain to palpation about ulcerative site. Decreased range of motion of the ankle joint in dorsiflexion with knee extended without pain or crepitus. Decreased range of motion of the first MTPJ without pain or crepitus. Dermatologic: There is moderate lower extremity edema secondary to her prior back surgery. Skin turgor normal. Ulceration to the dorsal aspect of the second digit overlying the proximal interphalangeal joint demonstrates recidivism secondary to unknown cause with some eschar overlying the ulceration site. No erythema, no purulent drainage, no malodor. No signs of infection. Left lower extremity: Vascular: DP and PT pulses nonpalpable secondary to edema. CFT is less than 4 seconds to digits. Normal temperature gradient. Hair growth is absent to digits. Neurologic: Diminished sensation secondary to neuropathy post back surgery. Gross sensation intact. Motor function intact. Musculoskeletal: Muscle strength 4 of 5 secondary to prior surgery and nonambulatory status. No pain to palpation of calf. Decreased range of motion of the ankle joint in dorsiflexion with knee extended without pain or crepitus. Decreased range of motion of the first MTPJ without pain or crepitus. Dermatologic: There is moderate lower extremity edema secondary to her prior back surgery. Skin turgor normal. Skin is mildly xerotic but otherwise unremarkable. Skin no rashes or lesions noted and skin turgor normal Neuro moves all extremities Debridement Note Debridement Note Wound debrided: Dorsal second digit PIPJ right foot Laterality: Right Wound Grade/Stage: Suarez stage I Type of Debridement: Excisional debridement Anesthesia Used: 5% Lidocaine Gel Depth: Down to and including healthy tissue and in the subcutaneous layer Percentage of wound debrided: 100 Instrument Used: #15 blade Tissue Removed: Fibrous, devitalized subcutaneous, biofilm, slough Severity: Fat Layer Exposed Amount of bleeding with debridement: Mild Bleeding Controlled with: Compression and gauze Patient tolerated procedure: Patient tolerated procedure well Post-Debridement Measurements and Additional Note: Post-Debridement Measurements/Treatment ADÁN - Nurse 1 - General Ulcer Assessment Start: 10/15/24 08:10 Freq: Status: Active Protocol: [place] Activity Type Activity Date Activity User E-sign Co-sign Detail Recorded Client Recorded Date Recorded By Document 10/15/24 08:10 DL [id number] 10/15/24 08:16 DL 10/15/24 08:10 WC - Today's Visit Information Type of service Follow-up Visit (Physician/COVERER ) Arrival Mode Wheelchair Transfer Assistance None Patient Identification Verified (Name & Yes ) Patient Requires Transmission-Based No Precautions Vital Signs Temperature (97.8 F-99.1 F) 96.6 F L Temperature Source Temporal Pulse Rate (60-100) 62 Pulse Location Monitor Respiratory Rate (12-18) 18 Respiratory rate source Observation Blood Pressure (90/60-120/80) 155/41 H Blood Pressure Mean (mm Hg) 79 Source Monitor History Since Last Visit- (Skip if this is Patient's initial visit) Have you changed medications since your No last visit? Any new allergies or adverse reactions No Had a fall/change in ADL's that may No increase risk of falls Signs or symptoms of abuse and/or No neglect since last visit Have you been in the hospital since your No last visit? Has dressing in place as prescribed Yes Has compression in place as prescribed Yes Has offloadiing in place as prescribed Yes Experienced any changes in pain level or No management Pain Scale: 0-10 Numeric Is Patient Pain Free? Yes - Nurse 1 - General Ulcer Measurement Start: 10/15/24 08:10 Freq: Status: Active Protocol: Activity Type Activity Date Activity User E-sign Co-sign Detail Recorded Client Recorded Date Recorded By Document 10/15/24 08:10 DL [id number] 10/15/24 08:16 DL 10/15/24 08:10 Wound Center Nurse 1 #4 R 2nd toe -Current Size (cm) - Length 0.1 -Current Size (cm) - Width 0.1 -Current Size (cm) - Depth 0.1 -Total Square Cm 0.01 -Photo Taken Yes -Exudate Amt None Present -Wound Margin Thickened -Granulation Amt None Present (0 %) -Necrosis Amt Small (1-33%) -Necrotic Tissue Type Eschar -Structure Exposed N/A -Texture (Destiny-wound Skin Appearance) Localized Edema ,Scarring -Moisture (Destiny-wound Skin Appearance) No Abnormality -Color (Destiny-wound Skin Appearance) No Abnormality -Temperature (Destiny-wound Skin No Abnormality Appearance) (Pt Warm) -Tenderness on Palpation (Destiny-wound No Skin Appearance) -Ulcer Cleansing Rinsed/ Irrigated with Saline -Foul Odor after Cleansing No -Anesthetic Used 5% Lidocaine Gel Right Calf (cm) 43 Right Ankle (cm) 23.8 - Nurse 2 - General Ulcer CM Notes Start: 10/15/24 08:10 Freq: Status: Active Protocol: Activity Type Activity Date Activity User E-sign Co-sign Detail Recorded Client Recorded Date Recorded By Document 10/15/24 08:33 [facility] [id number] 10/15/24 08:48 [facility] 10/15/24 08:33 Wound Center Nurse 2 #4 R 2nd toe -Time 08:33 -Correct Patient Yes -Correct Side, Site, Position Yes -Correct Procedure Yes -Procedure Performed Yes -Type of Procedure Debridement -Clinical Debridement Subcutaneous -Tissue Removed Subcutaneous -Post Debridement (cm) - Length 0.4 -Post Debridement (cm) - Width 0.4 -Post Debridement (cm) - Depth 0.1 -Total Square (Post) (cm) 0.16 -Area of Debridement (cm) - Length 0.4 -Area of Debridement (cm) - Width 0.4 -Total Square (Area) (cm) 0.16 -Tunneling No -Undermining/Tunneling No -Circular Undermining No -Wound/Ulcer Outcome Not Healed -Ulcer Cleansing Rinsed/ Irrigated with Saline -Foul Odor after Cleansing No -Bioengineered Tissue No -Bleeding Controlled with Pressure -Treatment Response Procedure Tolerated Well -Debridement - Subq, 1st 20sq cm Yes Pain Scale: 0-10 Numeric Is Patient Pain Free? Yes - Nurse 3 - General Ulcer D/C NN Start: 10/15/24 08:10 Freq: Status: Active Protocol: Activity Type Activity Date Activity User E-sign Co-sign Detail Recorded Client Recorded Date Recorded By Document 10/15/24 09:10 RB [id number] 10/15/24 09:11 RB 10/15/24 09:10 Wound Care Center Nurse 3 #4 R 2nd toe -Ulcer Cleansing Rinsed/ Irrigated with Saline -Primary Dressing Applied Collagen Powder ($) -Other Dressing purachol powder and hydrogel -Primary Dressing Covered/Secured with Dry Gauze, Secured with Tape bilat LE -Stockings Yes Treatment Response Procedure Tolerated Well Pain Scale: 0-10 Numeric Is Patient Pain Free? Yes Teaching: Wound Center Dressing Your Wound -Person Taught Patient,Primary Caregiver -Teaching Method Discussion, Demonstration -Response to teaching Verbalize Understanding, Reinforcement Needed WC - Visit Discharge Discharge Condition Stable Ambulatory Status Wheelchair Transportation [facility] Medication Reconcilliation completed & No provided to patient/care provider Clinical Summary of Care Provided Yes Assessment/Plan Assessment/Plan (1) Non-pressure chronic ulcer of other part of right foot with fat layer exposed: CODE(S): L97.512 - Non-pressure chronic ulcer of other part of right foot with fat layer exposed (2) Neuropathy: CODE(S): G62.9 - Polyneuropathy, unspecified (3) Venous insufficiency (chronic) (peripheral): CODE(S): I87.2 - Venous insufficiency (chronic) (peripheral) (4) Bilateral edema of lower extremity: CODE(S): R60.0 - Localized edema PLAN: Plan Patient seen and evaluated Predebridement: Eschar covering Ulceration is secondary to trauma during assisted transfer at her facility. Ulceration underwent debridement as noted in the clinical panel above. Postdebridement measurement 0.4 cm x 0.4 cm x 0.1 cm with healthy granular tissue. No signs of infection. She had appeared to be healing well at last visit with ulceration superficial in nature and thus refrained from application of additional EpiFix grafting. EpiFix graft #5 applied to the ulceration base 09/24/2024. Collagen powder was applied to ulcerative base today and dressed with dry sterile dressing. She is to change dressing daily. At next visit we will resume her EpiFix grafting versus procedural debridement. Ulcerative site has reopened versus previous visit. She is to continue to elevate lower extremities at all times of rest for edema control. Patient does have neuropathy and bilateral lower extremity edema secondary to previous back surgery and nonambulatory status. Patient does transport with the assistance of motorized wheelchair. Discussed continued protein intake to aid in wound healing. Nael supplementation/boost was also recommended to be continued She has been approved for advanced wound care product, EpiFix. Will continue applications if reulceration occurs. I did discuss today with her possible debridement to the level of bone and removing any prominence of bone underlying her ulceration site as this may be a potential cause of reulceration in addition to her continued edema of the lower extremity. She states she will think about the procedure and discussed with family. Discussed signs and symptoms of infection with the patient and [employer] cotton roll packer today. Educated them that if patient experiences increased redness about the ulcerative site that moves along the dorsal foot or up the leg, if she gets purulent drainage from the wound site, increasing foul odor from the wound site, or if she experiences fever greater than 101 degree accompanied by nausea, vomiting, chills that these are signs of a progressing infection and she should report to the ED to receive IV antibiotics and further evaluation. I have discussed potential risks of amputation secondary to depth of the wound and close proximity to bone. She is aware that if infection does set in the digit would likely need to be amputated at the corresponding metatarsal phalangeal joint. The following work up and care recommendations were made: Dressing: Collagen powder and dry sterile dressing. Change dressing daily Wash: Soap and water Tissue growth optimization: Collagen powder Offload: Continue wearing surgical shoe to offload dorsal aspect of the right foot Vascular: LEAS performed June 2024 demonstrating no underlying arterial disease. Vascular status not impeding wound healing Edema: Continue wearing compression stockings and elevate lower extremities to aid in edema control Infection: No signs of infection Pain: No pain secondary to neuropathy related to prior back surgery Host factors: Chronic venous insufficiency, chronic bilateral lower extremity edema, nonambulatory status secondary to prior back surgery If site remains closed at next visit we will discharge from the wound care center. I answered all the patient's questions. To return to the wound healing center in 1 week or call sooner if the patient has any questions or concerns.
--- NOTE | 2024-10-16 09:25 | WC ---
PHOTO 10/15/24 RIGHT 2ND TOE
[2024-10-22 08:07] VITALS: BP 177/55; PULSE 54; RESP 18; TEMP 36.2
--- NOTE | 2024-10-22 08:44 | PN.PCM_ITS ---
History of Present Illness Date of Service: 10/22/24 Chief Complaint: Ulceration dorsal second digit right foot History of Wound: This is a 79-year-old female who was referred to the wound care center for a nonhealing ulceration of the dorsal aspect of the second digit right foot. Patient states ulceration occurred after 2 aids at the [facility] skilled facility transferred her utilizing a Jareth and bumped her toe against a refrigerator. States she has been going [facility] the [facility] for cont inued care with Dr. Worley and they were applying Betadine daily for the last 8 weeks. Patient over that time has failed to progress in wound healing, but also states dressings have not been changed as instructed at her facility. She has followed with vascular surgery with LEAS performed in June 2024 demonstrating adequate perfusion with no evidence of arterial disease. Patient was referred to the wound care center for continued wound healing. She denies N/V/F/chills. Denies pain to the ulcerative site. Denies diabetes. 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 Denies further complaints. Subjective Subjective This 79-year-old female returns to the wound care center today for continued care of the dorsal ulceration to the second digit of the right foot. Accompanied by innersole maker from facility and daughter also present today. Dressing changes performed daily at facility. Does have neuropathy and has no sensation to the foot. Persistent swelling remains to lower extremities. She has attempted to remain more cautious following bumping her toe last week. Denies constitutional symptoms. Denies further complaints. Objective Data Objective Data Vital Signs: Vital Signs Temp Pulse Resp BP O2 Del Method O2 Flow Rate 97.1 F L 54 L 18 177/55 H Room Air 2 10/22/24 08:07 10/22/24 08:07 10/22/24 08:07 10/22/24 08:07 10/22/24 08:07 10/03/24 00:52 Oxygen Flow Rate (L/min) 2 Oxygen Delivery Method Room Air Physical Exam Const alert, oriented x3 and no apparent distress General Appearance: cooperative HEENT normocephalic Eyes General Eye: normal appearance of both eyes Neck General: normal visual inspection Lymph Lymphatic: no lymphadenopathy noted and no lymphedema noted Resp normal respiratory effort Cardio regular rate and regular rhythm Extremity no calf tenderness Extremity Narrative: Right lower extremity: Vascular: DP and PT pulses nonpalpable secondary to edema. CFT is less than 4 seconds to digits. Normal temperature gradient. Hair growth is absent to digits. Neurologic: Diminished sensation secondary to neuropathy post back surgery. Gross sensation intact. Motor function intact. Musculoskeletal: Muscle strength 4 of 5 secondary to prior surgery and nonambulatory status. No pain to palpation of calf. No pain to palpation about ulcerative site. Decreased range of motion of the ankle joint in dorsiflexion with knee extended without pain or crepitus. Decreased range of motion of the first MTPJ without pain or crepitus. Dermatologic: There is moderate lower extremity edema secondary to her prior back surgery. Skin turgor normal. Ulceration to the dorsal aspect of the second digit overlying the proximal interphalangeal joint demonstrates recidivism secondary to unknown cause with granulation tissue ulceration site. No erythema, no purulent drainage, no malodor. No signs of infection. Left lower extremity: Vascular: DP and PT pulses nonpalpable secondary to edema. CFT is less than 4 seconds to digits. Normal temperature gradient. Hair growth is absent to digits. Neurologic: Diminished sensation secondary to neuropathy post back surgery. Gross sensation intact. Motor function intact. Musculoskeletal: Muscle strength 4 of 5 secondary to prior surgery and nonambulatory status. No pain to palpation of calf. Decreased range of motion of the ankle joint in dorsiflexion with knee extended without pain or crepitus. Decreased range of motion of the first MTPJ without pain or crepitus. Dermatologic: There is moderate lower extremity edema secondary to her prior back surgery. Skin turgor normal. Skin is mildly xerotic but otherwise unremarkable. Skin no rashes or lesions noted and skin turgor normal Neuro moves all extremities Debridement Note Debridement Note Wound debrided: Dorsal second digit right foot Laterality: Right Wound Grade/Stage: Suarez stage I Type of Debridement: Excisional debridement Anesthesia Used: 5% Lidocaine Gel Depth: Down to and including healthy tissue and in the subcutaneous layer Percentage of wound debrided: 100 Instrument Used: #15 blade Tissue Removed: Fibrous, devitalized subcutaneous, biofilm, slough Severity: Fat Layer Exposed Amount of bleeding with debridement: Mild Bleeding Controlled with: Compression and gauze Patient tolerated procedure: Patient tolerated procedure well Post-Debridement Measurements and Additional Note: Post-Debridement Measurements/Treatment ADÁN - Nurse 1 - General Ulcer Assessment Start: 10/15/24 08:10 Freq: Status: Active Protocol: ISRAEL Activity Type Activity Date Activity User E-sign Co-sign Detail Recorded Client Recorded Date Recorded By Document 10/15/24 08:10 DL [id number] 10/15/24 08:16 DL Document 10/22/24 08:07 KW [id number] 10/22/24 08:21 KW 10/15/24 10/22/24 08:10 08:07 - Today's Visit Information Type of service Follow-up Visit Follow-up Visit (Physician/GUIDE DOMESTIC TOUR (Physician/GUIDE DOMESTIC TOUR ) ) Arrival Mode Wheelchair Wheelchair Transfer Assistance None Accompanied by daughter and nurse Patient Identification Verified (Name & Yes Yes ) Patient Requires Transmission-Based No Precautions Vital Signs Temperature (97.8 F-99.1 F) 96.6 F L 97.1 F L Temperature Source Temporal Temporal Pulse Rate (60-100) 62 54 L Pulse Location Monitor Monitor Respiratory Rate (12-18) 18 18 Respiratory rate source Observation Observation Oxygen Delivery Method Room Air Blood Pressure (90/60-120/80) 155/41 H 177/55 H Blood Pressure Mean (mm Hg) 79 95 Source Monitor Monitor Position Semi-Fowlers Blood Pressure Location Right Arm History Since Last Visit- (Skip if this is Patient's initial visit) Have you changed medications since your No No last visit? Any new allergies or adverse reactions No No Had a fall/change in ADL's that may No No increase risk of falls Signs or symptoms of abuse and/or No No neglect since last visit Have you been in the hospital since your No No last visit? Has dressing in place as prescribed Yes Yes Has compression in place as prescribed Yes Yes Has offloadiing in place as prescribed Yes Yes Experienced any changes in pain level or No No management Left Footwear Regular Shoe Right Footwear Surgical Shoe with pressure relief insole Pain Scale: 0-10 Numeric Is Patient Pain Free? Yes Yes - Nurse 1 - General Ulcer Measurement Start: 10/15/24 08:10 Freq: Status: Active Protocol: Activity Type Activity Date Activity User E-sign Co-sign Detail Recorded Client Recorded Date Recorded By Document 10/15/24 08:10 DL [id number] 10/15/24 08:16 DL Document 10/22/24 08:07 KW [id number] 10/22/24 08:21 KW 10/15/24 10/22/24 08:10 08:07 Wound Center Nurse 1 #4 R 2nd toe -Current Size (cm) - Length 0.1 0.5 -Current Size (cm) - Width 0.1 0.6 -Current Size (cm) - Depth 0.1 0.1 -Total Square Cm 0.01 0.30 -Photo Taken Yes -Exudate Amt None Present Small -Exudate Type Serosanguineous -Wound Margin Thickened Distinct, Outline Attached -Granulation Amt None Present (0 Small (1-33%) %) -Granulation Quality [place] -Necrosis Amt Small (1-33%) Large (67-100%) -Necrotic Tissue Type Eschar Adherent Slough -Structure Exposed N/A -Texture (Destiny-wound Skin Appearance) Localized Edema Assessed ,Scarring -Moisture (Destiny-wound Skin Appearance) No Abnormality Assessed,Dry/ Scaly -Color (Destiny-wound Skin Appearance) No Abnormality Assessed -Temperature (Destiny-wound Skin No Abnormality No Abnormality Appearance) (Pt Warm) (Pt Warm) -Tenderness on Palpation (Destiny-wound No No Skin Appearance) -Ulcer Cleansing Rinsed/ Rinsed/ Irrigated with Irrigated with Saline Saline -Foul Odor after Cleansing No No -Anesthetic Used 5% Lidocaine 5% Lidocaine Gel Gel Right Calf (cm) 43 41 Right Ankle (cm) 23.8 24 - Nurse 2 - General Ulcer CM Notes Start: 10/15/24 08:10 Freq: Status: Active Protocol: Activity Type Activity Date Activity User E-sign Co-sign Detail Recorded Client Recorded Date Recorded By Document 10/15/24 08:33 [facility] [id number] 10/15/24 08:48 [facility] 10/15/24 08:33 Wound Center Nurse 2 #4 R 2nd toe -Time 08:33 -Correct Patient Yes -Correct Side, Site, Position Yes -Correct Procedure Yes -Procedure Performed Yes -Type of Procedure Debridement -Clinical Debridement Subcutaneous -Tissue Removed Subcutaneous -Post Debridement (cm) - Length 0.4 -Post Debridement (cm) - Width 0.4 -Post Debridement (cm) - Depth 0.1 -Total Square (Post) (cm) 0.16 -Area of Debridement (cm) - Length 0.4 -Area of Debridement (cm) - Width 0.4 -Total Square (Area) (cm) 0.16 -Tunneling No -Undermining/Tunneling No -Circular Undermining No -Wound/Ulcer Outcome Not Healed -Ulcer Cleansing Rinsed/ Irrigated with Saline -Foul Odor after Cleansing No -Bioengineered Tissue No -Bleeding Controlled with Pressure -Treatment Response Procedure Tolerated Well -Debridement - Subq, 1st 20sq cm Yes Pain Scale: 0-10 Numeric Is Patient Pain Free? Yes WC - Nurse 3 - General Ulcer D/C NN Start: 10/15/24 08:10 Freq: Status: Active Protocol: Activity Type Activity Date Activity User E-sign Co-sign Detail Recorded Client Recorded Date Recorded By Document 10/15/24 09:10 RB [id number] 10/15/24 09:11 RB 10/15/24 09:10 Wound Care Center Nurse 3 #4 R 2nd toe -Ulcer Cleansing Rinsed/ Irrigated with Saline -Primary Dressing Applied Collagen Powder -Other Dressing purachol powder and hydrogel -Primary Dressing Covered/Secured with Dry Gauze, Secured with Tape bilat LE -Stockings Yes Treatment Response Procedure Tolerated Well Pain Scale: 0-10 Numeric Is Patient Pain Free? Yes Teaching: Wound Center Dressing Your Wound -Person Taught Patient,Primary Caregiver -Teaching Method Discussion, Demonstration -Response to teaching Verbalize Understanding, Reinforcement Needed WC - Visit Discharge Discharge Condition Stable Ambulatory Status [facility] Medication Reconcilliation completed & No provided to patient/care provider Clinical Summary of Care Provided Yes Assessment/Plan Assessment/Plan (1) Non-pressure chronic ulcer of other part of right foot with fat layer exposed: CODE(S): L97.512 - Non-pressure chronic ulcer of other part of right foot with fat layer exposed (2) Neuropathy: CODE(S): G62.9 - Polyneuropathy, unspecified (3) Venous insufficiency (chronic) (peripheral): CODE(S): I87.2 - Venous insufficiency (chronic) (peripheral) (4) Bilateral edema of lower extremity: CODE(S): R60.0 - Localized edema PLAN: Plan Patient seen and evaluated Predebridement: 0.2 cm x 0.2 cm x 0.1 cm Ulceration is secondary to trauma during assisted transfer at her facility. Ulceration underwent debridement as noted in the clinical panel above. Postdebridement measurement 0.3 cm x 0.3 cm x 0.1 cm with healthy granular tissue. No signs of infection. EpiFix graft #6 applied to the ulceration base today and dressed with Adaptic touch and anchored with Steri-Strips. Dry sterile dressing placed over graft site. Discussed not getting site wet. Ulcerative site has improved with reduction in size versus previous visit. She is to continue to elevate lower extremities at all times of rest for edema control. Patient does have neuropathy and bilateral lower extremity edema secondary to previous back surgery and nonambulatory status. Patient does transport with the assistance of motorized wheelchair. Discussed continued protein intake to aid in wound healing. Nael supplementation/boost was also recommended to be continued She has been approved for advanced wound care product, EpiFix. Will continue applications. I did discuss today with her and her daughter possible debridement to the level of bone and removing any prominence of bone underlying her ulceration site as this may be a potential cause of reulceration in addition to her continued edema of the lower extremity. She states she will think about the procedure now that this has been discussed with family. Discussed signs and symptoms of infection with the patient and Drug Abuse Social Worker innersole maker today. Educated them that if patient experiences increased redness about the ulcerative site that moves along the dorsal foot or up the leg, if she gets purulent drainage from the wound site, increasing foul odor from the wound site, or if she experiences fever greater than 101 degree accompanied by nausea, vomiting, chills that these are signs of a progressing infection and she should report to the ED to receive IV antibiotics and further evaluation. I have discussed potential risks of amputation secondary to depth of the wound and close proximity to bone. She is aware that if infection does set in the digit would likely need to be amputated at the corresponding metatarsal phalangeal joint. The following work up and care recommendations were made: Dressing: EpiFix, Adaptic touch, Steri-Strips. Dry sterile dressing overlying this. May change outer dressing as needed. Wash: Do not get wet Tissue growth optimization: EpiFix Offload: Continue wearing surgical shoe to offload dorsal aspect of the right foot Vascular: LEAS performed June 2024 demonstrating no underlying arterial disease. Vascular status not impeding wound healing Edema: Continue wearing compression stockings and elevate lower extremities to aid in edema control Infection: No signs of infection Pain: No pain secondary to neuropathy related to prior back surgery Host factors: Chronic venous insufficiency, chronic bilateral lower extremity edema, nonambulatory status secondary to prior back surgery I answered all the patient's questions. To return to the wound healing center in 1 week or call sooner if the patient has any questions or concerns.
== END 2024-10-30 23:59 | disposition home or self-care (01) ==
LOC: WC 08:00
PROVIDERS: PCP Family Medicine; Referring Provider Podiatrist; Visit Provider Student in an Organized Health Care Education/Training Program
DX: L97.512 Non-pressure chronic ulcer of other part of right foot with fat layer exposed (principal); G62.9 Polyneuropathy, unspecified; I87.2 Venous insufficiency (chronic) (peripheral); R60.0 Localized edema; Z79.899 Other long term (current) drug therapy
CPT/HCPCS: 11042; 15275; Q4186

== ENCOUNTER 2024-10-25 20:11 | Inpatient (IN) | payer MEDICARE, OTHER, MEDICAID, SELFPAY ==
[2024-10-25 20:12] VITALS: BP 189/87; PULSE 61; RESP 16; TEMP 36.9; O2SAT 94; BMI 44.4
[2024-10-25 20:18] VITALS: O2SAT 98
[2024-10-25 20:20] VITALS: BP 167/89
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
--- NOTE | 2024-10-25 20:52 | CT_ITS ---
PROCEDURE: CT cervical spine without IV contrast REASON FOR EXAM: Pain, trauma TECHNIQUE: Multiple contiguous axial images through the cervical spine were obtained without the administration of intravenous contrast. Two-dimensional coronal and sagittal reformatted images were reconstructed. Low-dose imaging technique was utilized. COMPARISON: 04/12/2021 FINDINGS: Chronic displaced odontoid fracture. Chronic grade 1/2 anterolisthesis of C7- T1. Postsurgical change from corpectomy and cervical fusion from C3 through C6. Anterior and posterior fusion hardware is grossly intact. No definite new acute osseous abnormality. Moderate multilevel degenerative changes. Lung apices are clear. No paraspinal mass. CT/Spine Cervical without Contras IMPRESSION: 1. No definite acute osseous abnormality. 2. Chronic displaced dens fracture and anterolisthesis of C7-T1. 3. Multilevel anterior and posterior cervical fusion with corpectomy changes. One or more dose reduction techniques were used (e.g., Automated exposure contr ol, adjustment of the mA and/or kV according to patient size, use of iterative reconstruction technique). Reading Location: [facility]
--- NOTE | 2024-10-25 20:52 | CT_ITS ---
PROCEDURE: CT thoracic spine without IV contrast REASON FOR EXAM: Pain, trauma TECHNIQUE: Multiple contiguous axial images through the thoracic spine were obtained without the administration of intravenous contrast. Two-dimensional coronal and sagittal reformatted images were reconstructed. Low-dose imaging technique was utilized. COMPARISON: 04/12/2020 FINDINGS: Unchanged chronic compression deformity of T12. No definite evidence of acute fracture or traumatic subluxation. Mild dextroscoliosis of the upper thoracic spine with moderate associated multilevel degenerative changes. Visualized posterior ribs are intact. Paraspinal muscle atrophy. Moderate/large hiatal hernia. Mild bibasilar atelectasis. CT/Spine Thoracic without Contras IMPRESSION: 1. No definite acute osseous abnormality. 2. Chronic/incidental findings as above. One or more dose reduction techniques were used (e.g., Automated exposure contr ol, adjustment of the mA and/or kV according to patient size, use of iterative reconstruction technique). Reading Location: [facility]
--- NOTE | 2024-10-25 20:52 | CT_ITS ---
EXAM: CT brain without IV contrast CLINICAL HISTORY: Pain, trauma COMPARISON: 07/06/2024 TECHNIQUE: Multiple contiguous axial images of the brain were obtained without the administration of intravenous contrast. Two-dimensional coronal and sagittal reformatted images were reconstructed. Low-dose imaging technique was utilized. FINDINGS: No acute intracranial hemorrhage, midline shift or mass effect. No definite CT evidence of acute territorial cortical infarction. No hydrocephalus. Mild generalized cerebral atrophy and chronic small-vessel ischemic disease. No depressed calvarial fracture. Paranasal sinuses and mastoid air cells are clear. CT/Brain/Head without Contrast IMPRESSION: No acute intracranial abnormality. Mild atrophy and chronic small-vessel ische fan changes. Reading Location: [facility]
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
[2024-10-25] MEDS: HYDROmorphone 0.5 MG/0.5 ML SYRINGE IV ×2 (20:55→22:16)
--- NOTE | 2024-10-25 21:20 | RAD_ITS ---
PROCEDURE: Pelvis and right hip radiographs REASON FOR EXAM: Pain, trauma TECHNIQUE: Three views of the pelvis and right hip COMPARISON: None FINDINGS: See impression RAD/HIP, UNI W/ Pelvis 2-3 Views IMPRESSION: Acute mildly displaced trochanteric/subtrochanteric periprosthetic fracture. R ight hip prosthesis is otherwise intact. No additional displaced fractures or dislocation. Reading Location: [facility]
[2024-10-25 22:14] VITALS: BP 140/114; PULSE 60; RESP 14; O2SAT 95
[2024-10-25 22:53] LABS: Anion Gap 4 (5-15); BUN 57 mg/dL (7-18); BUN/Creat Ratio 42.5 RATIO (10-20); Calcium,Total 9.4 mg/dL (8.5-10.1); Chloride 106 mmol/L (98-107); Creatinine, Serum 1.34 mg/dL (0.55-1.02); EST Glomerular Filtration Rate 41 mL/min (>60); Est Glom Filt Rate - Afr Amer 49 mL/min (>60); Estimated Creatinine Clearance 36.83 ml/min; Glucose 115 mg/dL (74-106); Potassium 4.8 mmol/L (3.5-5.1); Sodium Level 138 mmol/L (136-145)
[2024-10-25 23:07] LABS: Absolute Neutrophil Count 6.9 X10^3/uL (2.0-7.7); Basophil# 0.05 X10^3/uL; Basophil% 0.5 % (0-1); Eosinophil# 0.35 X10^3/uL; Eosinophils% 3.4 % (0-5); Hematocrit 34.1 % (37-47); Hemoglobin 10.6 g/dL (12.0-15.0); Mean Corp Hgb Conc 31.1 g/dL (32-36); Mean Corpuscular Hgb 30.7 pg (27.0-32.0); Mean Corpuscular Volume 98.8 fL (81-99); Mean Platelet Vol. 10.6 fl (6.2-12.0); Monocyte# 0.73 X10^3/uL; NRBC Flagged by Analyzer 0 % (0-5); Neutrophil # 6.85 X10^3/uL (2.7-7.7); Neutrophil % 65.6 % (47-70); Platelet Count 275 K/mm3 (150-450); RBC Distribution Width CV 13.1 % (11.6-14.6); RBC Distribution Width SD 47.1 fl (35.1-43.9); Red Blood Count 3.45 M/mm3 (4.2-5.4); White Blood Count 10.4 K/mm3 (4.4-11.0)
--- NOTE | 2024-10-25 23:18 | PCM.HP.STD ---
HPI - General General Date of Admission: 10/25/24 Date of Service: 10/25/24 Chief Complaint: Intractable pain, Fall. HPI Narrative The patient is a 79 y/o F w/ PMHx: Morbid obesity, Chronic anemia, CKD stage III unclear subtype per GFR trending, HTN, HLD, Hx frequent UTIs, COPD, Anxiety and Depression, Chronic right second toe dorsal ulceration complicated by chronic venous insufficiency following with Dr. Dolan at the [facility] care center who presents to the [facility] ED on 10/25/2024 with history of unfortunately chemical fall largely had been attempting to take her into the shower with her wheelchair tipping over and her falling onto her right hip with intractable pain following. Patient notes initially her pain was rated sharp stabbing severe 15/10 in severity. In the ED following medications she notes improvement to 7/10 in severity. Workup in the ED included T98.4, heart 61, BP 189/87, respiratory rate 16, 94% on 2 L nasal cannula with most recent repeat vitals heart rate 60, BP 140/114, respiratory rate 14, 95% room air, CBC with WC 10.4, hemoglobin 10.6, MCV 98.8, platelet 275 without marked shift, BMP with BUN/creatinine 57/1.34, GFR 41, glucose 115, CT of the brain with no acute intracranial abnormality with mild atrophy and chronic small vessel ischemic changes, CT cervical spine with no definitive acute osseous abnormality with chronic displaced dens fracture and anterior listhesis C7-T1, multilevel anterior and posterior cervical fusion with corpectomy changes, CT lumbar spine with no acute definitive osseous abnormality with multiple chronic/incidental findings, thoracic spine of the CT with no definitive acute osseous abnormality with chronic/incidental findings, plain film of the right hip and pelvis with acute mildly displaced trochanteric/subtrochanteric periprosthetic fracture with the right hip prosthesis otherwise intact. ED discussed the case with Dr. Kenny and this is non-operative. [facility] Medical History Hydronephrosis Hyperlipidemia Acute hypoxic respiratory failure Vertebral osteomyelitis Abnormal spinal diagnostic imaging History of COPD History of hypertension Fatigue Non-ischemic cardiomyopathy Abnormal CT of thoracic spine Soft tissue mass Vitamin D deficiency Depression Anxiety Chronic back pain Chronic obstructive pulmonary disease Venous insufficiency of right leg PVD (peripheral vascular disease) DDD (degenerative disc disease) COPD (chronic obstructive pulmonary disease) Essential (primary) hypertension MRSA (methicillin resistant staph aureus) culture positive Hemorrhoids Venous ulcer of left lower extremity without varicose veins 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 Foot drop, right Malnutrition Home Medications ?Medication ?Instructions ?Recorded ?Last Taken ?Type pravastatin 40 mg tablet 40 mg PO QHS CHOLESTEROL 01/17/18 03/13/24 History methenamine hippurate 1 gram tablet 1 g PO BID URINARY 04/12/20 03/14/24 History metoprolol succinate 50 mg 50 mg PO DAILY HEART 06/07/20 03/14/24 History tablet,extended release 24 hr fluticasone furoate 100 1 inh inhalation DAILY breathing 08/03/21 09/20/22 History mcg-vilanterol 25 mcg/dose inhalation powder (Breo Ellipta) cholecalciferol (vitamin D3) 100 100 mcg PO DAILY SUPPLEMENT 02/13/22 03/14/24 History mcg (4,000 unit) tablet ondansetron HCl 4 mg tablet 4 mg PO Q8H PRN Nausea 02/13/22 Unknown History sennosides 8.6 mg-docusate sodium 1 tab PO BID PRN CONSTIPATION 02/13/22 03/14/24 History 50 mg tablet [id number]-pql-ffqqi acid 0.4 1 tab PO DAILY vitamin 06/14/22 03/14/24 History mg-lycopene 300 mcg-lutein 250 mcg tablet (Centrum Silver) ULTRAFLORA IMMUNE HEALTH 170 mg PO/SL DAILY GUT HEALTH 09/20/22 09/19/22 History acetaminophen 500 mg tablet 500 mg PO Q6H PRN Pain 09/20/22 09/17/22 History albuterol sulfate 2.5 mg/3 mL 2.5 mg inhalation Q4H PRN 09/20/22 09/20/22 History (0.083 %) solution for nebulization SOB/WHEEZING guaifenesin 100 mg/5 mL oral 200 mg PO Q6H PRN COUGH/SORE THROAT 09/20/22 09/20/22 History liquid (Siltussin SA) melatonin 5 mg tablet 5 mg PO QHS SLEEP 09/20/22 03/13/24 History sertraline 100 mg tablet 200 mg PO DAILY DEPRESSION 09/20/22 03/14/24 History hydrocortisone 1 % topical cream 1 applic topical TID PRN 09/21/22 Unknown History (Preparation H Hydrocortisone) Hemorrhoids buspirone 5 mg tablet 5 mg PO TID mental health 03/14/23 03/14/24 History menthol 4 % topical gel (Biofreeze 1 applic topical BID PRN pain 09/21/23 Unknown History (menthol)) polyethylene glycol 3350 17 17 g PO DAILY PRN constipation 09/21/23 Unknown History gram/dose oral powder (ClearLax) pomegranate fruit extract 250 mg 250 mg PO DINNER SUPPLEMENT 03/12/24 03/13/24 History capsule bisacodyl 10 mg rectal suppository 10 mg IN DAILY PRN constipation 03/14/24 Unknown History estradiol 0.01% (0.1 mg/gram) 1 appful vaginal .COMPLEX 03/14/24 Unknown History vaginal cream magnesium hydroxide 400 mg/5 mL 30 ml PO DAILY PRN constipation 03/14/24 Unknown History oral suspension (Dulcolax (magnesium hydroxide)) mineral oil (Qtjim-Tx-Ugj Enema 118 ml IN DAILY PRN constipation 03/14/24 Unknown History (mineral oil)) oxycodone-acetaminophen 5 mg-325 1 tab PO TID PRN pain 3 days #9 03/17/24 Unknown Rx mg tablet (Percocet) tabs albuterol sulfate 90 mcg/actuation 2 inh inhalation Q4H 10/25/24 Unknown History breath activated powder inhaler gabapentin 100 mg capsule 200 mg PO TID 10/25/24 Unknown History Allergy/AdvReac Type Severity Reaction Status Date / Time morphine Allergy Unknown unknown Verified 10/25/24 20:17 amoxicillin (From Augmentin) AdvReac Nausea/Vom/ Verified 10/25/24 20:17 Diarrhea clavulanic acid (From AdvReac Nausea/Vom/ Verified 10/25/24 20:17 Augmentin) Diarrhea nitrofurantoin AdvReac Vomiting Verified 10/25/24 20:17 macrocrystalline (From Macrodantin) sulfamethoxazole (From AdvReac Nausea/Vom/ Verified 10/25/24 20:17 Bactrim) Diarrhea trimethoprim (From Bactrim) AdvReac Nausea/Vom/ Verified 10/25/24 20:17 Diarrhea Family History Father Hypertension Mother Diabetes Hypertension Brother Diabetes Brother Cancer Sister Hypertension Surgical History History of incisional hernia repair Hx of repair of rotator cuff History of hip replacement History of hysterectomy Social History household members: caregiver housing: [facility] Smoking Status: Never smoker alcohol intake: never substance use type: does not use caffeine: Yes Type: coffee Number of servings: 2 what type of physical activity do you participate in: none additional social history: [facility] at [facility] Narrative Admission Review of Systems: CONSTITUTIONAL: No weight loss, fever, chills, + weakness or fatigue. HEENT: Eyes: No visual loss, blurred vision, double vision or yellow sclerae. Ears, Nose, Throat: No hearing loss, sneezing, congestion, runny nose or sore throat. SKIN: No rash or itching, lesions, wounds except + right second toe with chronic ulceration currently dressed, stage II-III decubitus ulcers. CARDIOVASCULAR: + Chronic edema. No chest pain, chest pressure or chest discomfort, palpitations, orthopnea, syncopal events. RESPIRATORY: No shortness of breath, cough or sputum, wheezing, hemoptysis. GASTROINTESTINAL: No anorexia, nausea, vomiting or diarrhea, abdominal pain, melena, BRBPR. GENITOURINARY: + History of frequent UTIs. No dysuria, frequency, urgency or retention. NEUROLOGICAL: + Chronic debility, adult failure to thrive with nearly wheelchair-bound status. No headache, dizziness, syncope, paralysis, ataxia, numbness or tingling in the extremities, change in bowel or bladder control, seizure. MUSCULOSKELETAL: + muscle, back pain, joint pain or stiffness. HEMATOLOGIC: + Chronic anemia, easy bleeding/bruising. LYMPHATICS: No enlarged nodes. No history of splenectomy. PSYCHIATRIC: + History of anxiety and depression. ENDOCRINOLOGIC: No reports of sweating, cold or heat intolerance. No polyuria or polydipsia. ALLERGIES: No history of asthma, hives, eczema or rhinitis. Vital Signs Vital Signs Vital Signs: 10/25/24 20:12 10/25/24 20:18 10/25/24 20:20 Temperature 98.4 F Temperature Source Oral Pulse Rate 61 Respiratory Rate 16 Respiratory Effort Normal Non-Labored Respiratory Depth Normal Respiratory Pattern Normal Blood Pressure 189/87 H 167/89 H Blood Pressure Mean 121 115 Pulse Ox 94 98 Oxygen Delivery Method Nasal Cannula Nasal Cannula Oxygen Flow Rate (L/min) 2 2 10/25/24 22:14 Temperature Temperature Source Pulse Rate 60 Respiratory Rate 14 Respiratory Effort Respiratory Depth Respiratory Pattern Blood Pressure 140/114 H Blood Pressure Mean 122 Pulse Ox 95 Oxygen Delivery Method Room Air Oxygen Flow Rate (L/min) Weight Weight: 227 lb 4.745 oz Body Mass Index (BMI) 44.4 Physical Exam Narrative Physical Examination: General: Awake, alert, oriented x 3 and cooperative, laying in the ED bed, notes pain improved since initial arrival, currently 7 out of 10 in severity. Skin: Normal color, normal turgor, no icterus, no cyanosis except bilateral lower extremity chronic venous stasis skin changes, occasional stage ecchymoses, abrasion. HEENT: AT/NC, EOMI, PERRLA, mildly dry MM, no carotid bruits or JVD noted. Lungs: Mildly diminished, greater bases, poor effort, no rales, ronchi or wheezing. Heart: Regular rate and rhythm; no gallop, rub audible. Abdomen: Soft, morbidly obese, NTTP, difficult discern distention and HSM given habitus, distant BS. Extremities: No cyanosis, no clubbing, see skin, right second toe dressing in place, chronic distal edema present. Neurological: Patient awake, alert, oriented as noted, cognitive function intact; pupils equally reactive to light and accommodation, cranial nerves gross normal, moving all 4 extremities except expected significant limitation right lower extremity given fall with fracture and also chronic debilitated wheelchair-bound status, strength severely globally decreased. Psychiatric: Affect appears fatigued, uncomfortable, no acute evidence of depressive or anxiety feelings but does have underlying history. Results Lab / Micro Data 10/25/24 22:19 10/25/24 22:19 Labs: Laboratory Results - last 24 hr 10/25/24 22:19: WBC 10.4, RBC 3.45 L, Hgb 10.6 L, Hct 34.1 L, MCV 98.8, MCH 30.7, MCHC 31.1 L, RDW Std Deviation 47.1 H, RDW Coeff of Zach 13.1, Plt Count 275, MPV 10.6, Immature Gran % (Auto) 0.500, Neut % (Auto) 65.6, Lymph % (Auto) 23.0, [place] % (Auto) 7.0, Eos % (Auto) 3.4, Baso % (Auto) 0.5, Absolute Neuts (auto) 6.9, Absolute Lymphs (auto) 2.40, Nucleated RBC % 0, Sodium 138, Potassium 4.8, Chloride 106, Carbon Dioxide 28.0, Anion Gap 4 L, BUN 57 H, Creatinine 1.34 H, Estim Creat Clear Calc 36.83, Est GFR (MDRD) Af Amer 49 L, Est GFR (MDRD) Non-Af 41 L, BUN/Creatinine Ratio 42.5 H, Glucose 115 H, Calcium 9.4 Imaging Radiology Impression Brain CT 10/25/24 20:52 IMPRESSION: No acute intracranial abnormality. Mild atrophy and chronic small-vessel ischemic changes. Reading Location: [facility] Cervical Spine CT 10/25/24 20:52 IMPRESSION: 1. No definite acute osseous abnormality. 2. Chronic displaced dens fracture and anterolisthesis of C7-T1. 3. Multilevel anterior and posterior cervical fusion with corpectomy changes. One or more dose reduction techniques were used (e.g., Automated exposure control, adjustment of the mA and/or kV according to patient size, use of iterative reconstruction technique). Reading Location: [facility] Lumbar Spine CT 10/25/24 20:52 IMPRESSION: 1. No definite acute osseous abnormality. 2. Multiple chronic/incidental findings as above. One or more dose reduction techniques were used (e.g., Automated exposure control, adjustment of the mA and/or kV according to patient size, use of iterative reconstruction technique). Reading [facility] Thoracic Spine CT 10/25/24 20:52 IMPRESSION: 1. No definite acute osseous abnormality. 2. Chronic/incidental findings as above. One or more dose reduction techniques were used (e.g., Automated exposure control, adjustment of the mA and/or kV according to patient size, use of iterative reconstruction technique). Reading [facility]Pelvis [facility]-Ray 10/25/24 21:20 IMPRESSION: Acute mildly displaced trochanteric/subtrochanteric periprosthetic fracture. Right hip prosthesis is otherwise intact. No additional displaced fractures or dislocation. Reading Location: [facility] Assessment & Plan Assessment/Plan (1) Periprosthetic fracture around internal prosthetic hip joint: PLAN: Plan The patient is a 79 y/o F w/ PMHx: Morbid obesity, Chronic anemia, CKD stage III unclear subtype per GFR trending, HTN, HLD, Hx frequent UTIs, COPD, Anxiety and Depression, Chronic right second toe dorsal ulceration complicated by chronic venous insufficiency following with Dr. Dolan at the wound care center who presents to the [facility] ED on 10/25/2024 with history of unfortunately chemical fall largely had been attempting to take her into the shower with her wheelchair tipping over and her falling onto her right hip with intractable pain following. #1. General debility, Intractable R hip pain s/p mechanical fall from her wheelchair, nonambulatory baseline with chronic debility, adult FTT status with acute mildly displaced trochanteric/subtrochanteric periprosthetic fracture: ED discussed case with orthopedic surgeon Dr. Kenny who noted that this type of fracture is nonoperative and patient can follow-up outpatient with his office. Will admit to [facility], initiate cabezas placement, monitor I/Os, frequent positioning, fall precautions, offloading, given severity and intractable pain nature will increase patient's gabapentin to 300 mg 3 times daily, initiate pain compound cream application to right hip, have breakthrough oxycodone and Dilaudid as needed, anti-emetic regimen. PT/OT/CM consulted for discharge planning. #2. Chronic Kidney Disease Stage III, unclear subtype per GFR trending: Admission BUN/Cr 57/1.34, GFR 41, baseline renal function primarily 0.9-1.3, repeat BMP in AM. #3. Chronic right second toe dorsal ulceration complicated by chronic venous insufficiency: Patient following with Dr. Dolan, most recent visit noted 10/22/2024 with EpiFix graft placement with overlying Adaptic and Steri-Strips with plan for continued dressing with upcoming change per podiatry. Given upcoming dressing change will request involvement per their service to assure this is not missed. #4. Chronic normocytic anemia: Admission hemoglobin 10.6, MCV 98.8, baseline hemoglobin similar, continue to trend. #5. Chronic COPD: Will temporarily hold home inhalers in the interim transition to ATC duonebs, PRN albuterol, HOB, IS parameters. #6. Hypertension: Continue home regimen including metoprolol, PRN hydralazine. #7. Hyperlipidemia: We will continue patient on statin therapy. #8. History of frequent UTIs: Given current presentation unfortunately with inability to move well with intractable pain we will place Cabezas catheter but we will continue patient home Biphetamine regimen. #9. Anxiety and depression: We will continue patient on sertraline and BuSpar regimen. #10. Morbid Obesity: Weight loss and lifestyle changes encouraged. #11. DVT prophylaxis: Lovenox. #12. CODE status: Full code per facility paperwork. Charges/Coding Visit Charges Inpatient E&M: 85801 Init Hosp L3
[2024-10-25 23:23] VITALS: BP 122/57; PULSE 51; RESP 16; TEMP 37; O2SAT 93
[2024-10-26] VITALS (10 sets, daily range): BP systolic 110–150; BP diastolic 56–118; PULSE 55–66; RESP 16–18; TEMP 36.1–36.8; O2SAT 92–100; BMI 42.3
[2024-10-26] MEDS: oxyCODONE 5 MG Tablet PO ×3 (02:50→21:25)
[2024-10-26] MEDS: busPIRone 5 MG Tablet PO ×3 (02:50→21:21)
[2024-10-26] MEDS: Acetaminophen 325 MG Tablet 650 MG PO (02:51)
[2024-10-26] MEDS: Gabapentin 300 MG Capsule PO ×3 (02:51→21:26)
[2024-10-26] MEDS: Arthritis Pain Compound 60 CLICK TUBE TOPICAL ×3 (02:51→21:20)
[2024-10-26] MEDS: Senna/Docusate Sodium 1 Tablet PO (02:51)
[2024-10-26] MEDS: Menthol/Lanolin/Calamine/Znox 113 GM Tube 1 APPLIC TOPICAL ×4 (02:52→21:21)
[2024-10-26] MEDS: Ipratropium/Albuterol Sulfate 3 ML AMPUL.NEB INHALATION ×3 (07:04→20:06)
[2024-10-26 08:02] LABS: ALB/GLOB Ratio 0.8 RATIO (0.9-2.4); AST(SGOT) 25 U/L (15-37); Alanine Aminotransfer ALT/SGPT 26 U/L (13-56); Albumin, Serum 2.8 g/dL (3.2-5.0); Alkaline Phosphatase 73 U/L (45-117); Anion Gap 8 (5-15); BUN 59 mg/dL (7-18); BUN/Creat Ratio 43.1 RATIO (10-20); Calcium,Total 9.2 mg/dL (8.5-10.1); Chloride 108 mmol/L (98-107); Creatinine, Serum 1.37 mg/dL (0.55-1.02); EST Glomerular Filtration Rate 40 mL/min (>60); Est Glom Filt Rate - Afr Amer 48 mL/min (>60); Estimated Creatinine Clearance 34.32 ml/min; Globulin 3.6 g/dL (2.2-4.2); Glucose 128 mg/dL (74-106); Potassium 4.8 mmol/L (3.5-5.1); Protein, Total 6.4 g/dL (6.4-8.2); Sodium Level 138 mmol/L (136-145)
--- NOTE | 2024-10-26 08:38 | PCM.CONS.GEN ---
Assessment & Plan Assessment/Plan (1) Non-pressure chronic ulcer of other part of right foot with fat layer exposed: (2) Neuropathy: (3) Venous insufficiency (chronic) (peripheral): (4) Bilateral edema of lower extremity: (5) Periprosthetic fracture around internal prosthetic hip joint: PLAN: Plan Patient seen and evaluated Right foot: Superficial ulceration dorsal second digit overlying the PIPJ right foot which had been healing well with placement of advanced wound care product/stem cell graft. Most recent placement of graft 10/22/2024. Graft currently remains in place to the second digit. No signs of infection. WBC 10.4 Currently admitted for acute trochanteric periprosthetic fracture of the Right hip which is non-operable. Patient is non-ambulatory and achieves mobility via wheelchair. Medicine team following for medical management, they are appreciated Currently on IV pain medication. At this time from podiatric standpoint no surgical intervention is required for her 2nd digit. Discussed with the patient and nursing staff that the current graft with recent placement last Thrusday 10/22/[address] They may change outer dressings as needed. Discussed with the patient on discharge will resume following the wound care center for additional placement of grafts and continued healing of the ulceration site. Podiatry will continue to follow from a distance. Jadon Dolan Jr., D.P.[facility] [phone] HPI Consult Data Date of Consult: 10/26/24 HPI Narrative Reason for Consultation: Second digit ulceration right foot HPI Narrative: CAMILLA HAWLEY, is a 79 F who presents to [facility] on 10/26/2024 with complaint of increased right hip pain following fall from [facility] transport at [facility]. Reports immediate pain upon fall. She has PMHx of HTN, HLD, CKD stage III, obesity, chronic ulceration of second digit of the right foot. In the ED radiographs were obtained demonstrating trochanteric periprosthetic fracture of the right hip. Was admitted for pain control. She had been following with me in the wound care center for chronic ulceration of the second with placement of advanced wound care product/stem cell grafting with most recent placement of graft to 10/22/2024. She was consulted to podiatry for examination and guidance of care. [facility] Medical History Hydronephrosis Hyperlipidemia Acute hypoxic respiratory failure Vertebral osteomyelitis Abnormal spinal diagnostic imaging History of COPD History of hypertension Fatigue Non-ischemic cardiomyopathy Abnormal CT of thoracic spine Soft tissue mass Vitamin D deficiency Depression Anxiety Chronic back pain Chronic obstructive pulmonary disease Venous insufficiency of right leg PVD (peripheral vascular disease) DDD (degenerative disc disease) COPD (chronic obstructive pulmonary disease) Essential (primary) hypertension MRSA (methicillin resistant staph aureus) culture positive Hemorrhoids Venous ulcer of left lower extremity without varicose veins 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 Foot drop, right Malnutrition Home Medications ?Medication ?Instructions ?Recorded ?Last Taken ?Type pravastatin 40 mg tablet 40 mg PO QHS CHOLESTEROL 01/17/18 03/13/24 History methenamine hippurate 1 gram tablet 1 g PO BID URINARY 04/12/20 03/14/24 History metoprolol succinate 50 mg 50 mg PO DAILY HEART 06/07/20 03/14/24 History tablet,extended release 24 hr fluticasone furoate 100 1 inh inhalation DAILY breathing 08/03/21 09/20/22 History mcg-vilanterol 25 mcg/dose inhalation powder (Breo Ellipta) cholecalciferol (vitamin D3) 100 100 mcg PO DAILY SUPPLEMENT 02/13/22 03/14/24 History mcg (4,000 unit) tablet ondansetron HCl 4 mg tablet 4 mg PO Q8H PRN Nausea 02/13/22 Unknown History sennosides 8.6 mg-docusate sodium 1 tab PO BID PRN CONSTIPATION 02/13/22 03/14/24 History 50 mg tablet iqockkee-pve-iepoa acid 0.4 1 tab PO DAILY vitamin 06/14/22 03/14/24 History mg-lycopene 300 mcg-lutein 250 mcg tablet (Centrum Silver) ULTRAFLORA IMMUNE HEALTH 170 mg PO/SL DAILY GUT HEALTH 09/20/22 09/19/22 History acetaminophen 500 mg tablet 500 mg PO Q6H PRN Pain 09/20/22 09/17/22 History albuterol sulfate 2.5 mg/3 mL 2.5 mg inhalation Q4H PRN 09/20/22 09/20/22 History (0.083 %) solution for nebulization SOB/WHEEZING guaifenesin 100 mg/5 mL oral 200 mg PO Q6H PRN COUGH/SORE THROAT 09/20/22 09/20/22 History liquid (Siltussin SA) melatonin 5 mg tablet 5 mg PO QHS SLEEP 09/20/22 03/13/24 History sertraline 100 mg tablet 200 mg PO DAILY DEPRESSION 09/20/22 03/14/24 History hydrocortisone 1 % topical cream 1 applic topical TID PRN 09/21/22 Unknown History (Preparation H Hydrocortisone) Hemorrhoids buspirone 5 mg tablet 5 mg PO TID mental health 03/14/23 03/14/24 History menthol 4 % topical gel (Biofreeze 1 applic topical BID PRN pain 09/21/23 Unknown History (menthol)) polyethylene glycol 3350 17 17 g PO DAILY PRN constipation 09/21/23 Unknown History gram/dose oral powder (ClearLax) pomegranate fruit extract 250 mg 250 mg PO DINNER SUPPLEMENT 03/12/24 03/13/24 History capsule bisacodyl 10 mg rectal suppository 10 mg W[place] DAILY PRN constipation 03/14/24 Unknown History estradiol 0.01% (0.1 mg/gram) 1 appful vaginal .COMPLEX 03/14/24 Unknown History vaginal cream magnesium hydroxide 400 mg/5 mL 30 ml PO DAILY PRN constipation 03/14/24 Unknown History oral suspension (Dulcolax (magnesium hydroxide)) mineral oil (Ztosb-Dm-Wdl Enema 118 ml W[place] DAILY PRN constipation 03/14/24 Unknown History (mineral oil)) oxycodone-acetaminophen 5 mg-325 1 tab PO TID PRN pain 3 days #9 03/17/24 Unknown Rx mg tablet (Percocet) tabs albuterol sulfate 90 mcg/actuation 2 inh inhalation Q4H 10/25/24 Unknown History breath activated powder inhaler gabapentin 100 mg capsule 200 mg PO TID 10/25/24 Unknown History Allergy/AdvReac Type Severity Reaction Status Date / Time morphine Allergy Unknown unknown Verified 10/25/24 20:17 amoxicillin (From Augmentin) AdvReac Nausea/Vom/ Verified 10/25/24 20:17 Diarrhea clavulanic acid (From AdvReac Nausea/Vom/ Verified 10/25/24 20:17 Augmentin) Diarrhea nitrofurantoin AdvReac Vomiting Verified 10/25/24 20:17 macrocrystalline (From Macrodantin) sulfamethoxazole (From AdvReac Nausea/Vom/ Verified 10/25/24 20:17 Bactrim) Diarrhea trimethoprim (From Bactrim) AdvReac Nausea/Vom/ Verified 10/25/24 20:17 Diarrhea Family History Father Hypertension Mother Diabetes Hypertension Brother Diabetes Brother Cancer Sister Hypertension Surgical History History of incisional hernia repair Hx of repair of rotator cuff History of hip replacement History of hysterectomy Social History household members: caregiver housing: jail Smoking Status: Never smoker alcohol intake: never substance use type: does not use caffeine: Yes Type: coffee Number of servings: 2 what type of physical activity do you participate in: none additional social history: [facility] Constitutional Constitutional: Denies body ache(s), chills, fever(s) or malaise Eyes Eyes: Denies change in vision, diplopia or loss of vision ENT HEENT: Denies dysphagia, rhinorrhea or sore throat Cardiovascular Cardiovascular: Denies chest pain, claudication or palpitations Respiratory/Chest Respiratory/Chest: Denies dyspnea, shortness of breath at rest or wheezing Gastrointestinal Gastrointestinal: Denies abdominal pain, constipation, diarrhea, nausea or vomiting Genitourinary Genitourinary: Denies dysuria, hematuria or urinary urgency Musculoskeletal Musculoskeletal: Reports other Details: Right hip pain s/p acute fracture ; Denies joint pain, joint stiffness or joint swelling Integumentary Integumentary: Denies jaundice, pruritus or rash Neurologic Neurologic: Denies dizziness, numbness or seizures Psychiatric Psychiatric: Denies anxiety, confusion or depression Endocrine Endocrinology: Denies polydipsia, polyphagia or polyuria Hematologic/Lymphatic Hematologic/Lymphatic: Denies easy bleeding or easy bruising Allergic/Immunologic Allergic/Immunologic: Denies urticaria or asthma Physical Exam Const alert, oriented x3 and no apparent distress General Appearance: cooperative HEENT normocephalic Eyes General Eye: normal appearance of both eyes Neck General: normal visual inspection Lymph Lymphatic: no lymphadenopathy noted and no lymphedema noted Resp normal respiratory effort Cardio regular rate and regular rhythm Extremity Extremity Narrative: Right lower extremity: Vascular: DP and PT pulses nonpalpable secondary to edema. CFT is less than 4 seconds to digits. Normal temperature gradient. Hair growth is absent to digits. Neurologic: Diminished sensation secondary to neuropathy post back surgery. Gross sensation intact. Motor function intact. Musculoskeletal: Muscle strength 4 of 5 secondary to prior surgery and nonambulatory status. No pain to palpation of calf. No pain to palpation about ulcerative site. Decreased range of motion of the ankle joint in dorsiflexion with knee extended without pain or crepitus. Decreased range of motion of the first MTPJ without pain or crepitus. Right hip pain s/p acute mildly displaced trochanteric periprosthetic fracture. Dermatologic: There is moderate lower extremity edema secondary to her prior back surgery. Skin turgor normal. Ulceration to the dorsal aspect of the second digit overlying the proximal interphalangeal joint demonstrates recidivism secondary to unknown cause with granulation tissue ulceration site. No erythema, no purulent drainage, no malodor. No signs of infection. Left lower extremity: Vascular: DP and PT pulses nonpalpable secondary to edema. CFT is less than 4 seconds to digits. Normal temperature gradient. Hair growth is absent to digits. Neurologic: Diminished sensation secondary to neuropathy post back surgery. Gross sensation intact. Motor function intact. Musculoskeletal: Muscle strength 4 of 5 secondary to prior surgery and nonambulatory status. No pain to palpation of calf. Decreased range of motion of the ankle joint in dorsiflexion with knee extended without pain or crepitus. Decreased range of motion of the first MTPJ without pain or crepitus. Dermatologic: There is moderate lower extremity edema secondary to her prior back surgery. Skin turgor normal. Skin is mildly xerotic but otherwise unremarkable. Skin no rashes or lesions noted and skin turgor normal Neuro moves all extremities Lab / Micro Data 10/26/24 07:57 10/26/24 07:01 Labs: Laboratory Results - last 24 hr 10/25/24 22:19: WBC 10.4, RBC 3.45 L, Hgb 10.6 L, Hct 34.1 L, MCV 98.8, MCH 30.7, MCHC 31.1 L, RDW Std Deviation 47.1 H, RDW Coeff of Zach 13.1, Plt Count 275, MPV 10.6, Immature Gran % (Auto) 0.500, Neut % (Auto) 65.6, Lymph % (Auto) 23.0, Wayne % (Auto) 7.0, Eos % (Auto) 3.4, Baso % (Auto) 0.5, Absolute Neuts (auto) 6.9, Absolute Lymphs (auto) 2.40, Nucleated RBC % 0, Sodium 138, Potassium 4.8, Chloride 106, Carbon Dioxide 28.0, Anion Gap 4 L, BUN 57 H, Creatinine 1.34 H, Estim Creat Clear Calc 36.83, Est GFR (MDRD) Af Amer 49 L, Est GFR (MDRD) Non-Af 41 L, BUN/Creatinine Ratio 42.5 H, Glucose 115 H, Calcium 9.4 10/26/24 07:01: WBC Cancelled, Corrected WBC Cancelled, RBC Cancelled, Hgb Cancelled, Hct Cancelled, MCV Cancelled, MCH Cancelled, MCHC Cancelled, RDW Std Deviation Cancelled, RDW Coeff of Zach Cancelled, Plt Count Cancelled, MPV Cancelled, Immature Gran % (Auto) Cancelled, Neut % (Auto) Cancelled, Lymph % (Auto) Cancelled, Wayne % (Auto) Cancelled, Eos % (Auto) Cancelled, Baso % (Auto) Cancelled, Absolute Neuts (auto) Cancelled, Absolute Lymphs (auto) Cancelled, Total Counted Cancelled, Neutrophils % (Manual) Cancelled, Band Neutrophils % Cancelled, Lymphocytes % (Manual) Cancelled, Monocytes % (Manual) Cancelled, Eosinophils % (Manual) Cancelled, Basophils % (Manual) Cancelled, Metamyelocytes % Cancelled, Myelocytes % Cancelled, Promyelocytes % Cancelled, Blast Cells % Cancelled, Plasma Cell % (Manual) Cancelled, Other Cells % Cancelled, Nucleated RBC % Cancelled, Nucleated RBCs/100 WBC Cancelled, Differential Comment Cancelled, Diff Path Review Cancelled, Hypersegmented Neuts Cancelled, Atypical Lymphocytes Cancelled, Reactive Lymphocytes Cancelled, Smudge Cells Cancelled, Toxic Granulation Cancelled, Toxic Vacuolation Cancelled, Dohle Bodies Cancelled, Brenda Rods Cancelled, Platelet Estimate Cancelled, Plt Morphology Comment Cancelled, RBC Morphology Cancelled 10/26/24 07:01: RBC Morphology Cancelled, Polychromasia Cancelled, Hypochromasia Cancelled, Basophilic Stippling Cancelled, Anisocytosis Cancelled, Microcytosis Cancelled, Macrocytosis Cancelled, Spherocytes Cancelled, Sickle Cells Cancelled, Target Cells Cancelled, Tear Drop Cells Cancelled, Ovalocytes Cancelled, Stomatocytes Cancelled, [place] Bodies Cancelled, [place] Cells Cancelled, Bite Cells Cancelled, Crenated Cell Cancelled, Acanthocytes (Spur) Cancelled, Rouleaux Cancelled, Schistocytes Cancelled, Sodium 138, Potassium 4.8, Chloride 108 H, Carbon Dioxide 22.0, Anion Gap 8, BUN 59 H, Creatinine 1.37 H, Estim Creat Clear Calc 34.32, Est GFR (MDRD) Af Amer 48 L, Est GFR (MDRD) Non-Af 40 L, BUN/Creatinine Ratio 43.1 H, Glucose 128 H, Calcium 9.2, Total Bilirubin 0.30, AST 25, ALT 26, Alkaline Phosphatase 73, Total Protein 6.4, Albumin 2.8 L, Globulin 3.6, Albumin/Globulin Ratio 0.8 L Imaging Radiology Impression Brain CT 10/25/24 20:52 IMPRESSION: No acute intracranial abnormality. Mild atrophy and chronic small-vessel ischemic changes. [facility] Cervical Spine CT 10/25/24 20:52 IMPRESSION: 1. No definite acute osseous abnormality. 2. Chronic displaced dens fracture and anterolisthesis of C7-T1. 3. Multilevel anterior and posterior cervical fusion with corpectomy changes. One or more dose reduction techniques were used (e.g., Automated exposure control, adjustment of the mA and/or kV according to patient size, use of iterative reconstruction technique). Reading [facility] Lumbar Spine CT 10/25/24 20:52 IMPRESSION: 1. No definite acute osseous abnormality. 2. Multiple chronic/incidental findings as above. One or more dose reduction techniques were used (e.g., Automated exposure control, adjustment of the mA and/or kV according to patient size, use of iterative reconstruction technique). Reading [facility] Thoracic Spine CT 10/25/24 20:52 IMPRESSION: 1. No definite acute osseous abnormality. 2. Chronic/incidental findings as above. One or more dose reduction techniques were used (e.g., Automated exposure control, adjustment of the mA and/or kV according to patient size, use of iterative reconstruction technique). Reading Location: [facility] Hip/Pelvis X-Ray 10/25/24 21:20 IMPRESSION: Acute mildly displaced trochanteric/subtrochanteric periprosthetic fracture. Right hip prosthesis is otherwise intact. No additional displaced fractures or dislocation. Reading [facility]
[2024-10-26 08:41] LABS: Absolute Lymphocyte Count 2.12 X10^3/uL (0.83-4.51); Absolute Neutrophil Count 6.5 X10^3/uL (2.0-7.7); Basophil# 0.03 X10^3/uL; Basophil% 0.3 % (0-1); Eosinophil# 0.23 X10^3/uL; Eosinophils% 2.4 % (0-5); Hematocrit 34.4 % (37-47); Hemoglobin 10.4 g/dL (12.0-15.0); Lymphocyte # 2.12 X10^3/ul (0.83-4.51); Lymphocyte % 21.8 % (19-41); Mean Corp Hgb Conc 30.2 g/dL (32-36); Mean Corpuscular Hgb 30.1 pg (27.0-32.0); Mean Corpuscular Volume 99.7 fL (81-99); Mean Platelet Vol. 10.2 fl (6.2-12.0); Monocyte# 0.78 X10^3/uL; NRBC Flagged by Analyzer 0 % (0-5); Neutrophil # 6.51 X10^3/uL (2.7-7.7); Neutrophil % 67.1 % (47-70); Platelet Count 261 K/mm3 (150-450); RBC Distribution Width CV 13.2 % (11.6-14.6); RBC Distribution Width SD 48.3 fl (35.1-43.9); Red Blood Count 3.45 M/mm3 (4.2-5.4); White Blood Count 9.7 K/mm3 (4.4-11.0)
[2024-10-26] MEDS: Enoxaparin 40 MG/0.4 ML Syringe SC (09:37)
[2024-10-26] MEDS: Metoprolol(XL)Succ 50 MG Tablet PO (09:37)
[2024-10-26] MEDS: Methenamine Hippurate 1 GM Tablet PO ×2 (09:37→21:21)
[2024-10-26] MEDS: Sertraline 100 MG Tablet 200 MG PO (09:38)
[2024-10-26] MEDS: Ensure Plus High Protein 120 ML LIQUID PO ×3 (09:41→16:56)
--- NOTE | 2024-10-26 11:55 | CASEMGMT ---
Discharge Planning Updates sent to [facility] with note that pt may return today. María Aragon DC Planning Asst.
--- NOTE | 2024-10-26 14:25 | CHAPLAIN ---
Type of Pastoral Visit _x__ Initial Visit ___ Follow-up Visit ___ On-call Visit ___ General Patient Visit ___ Spiritual Assessment ___ Family Conference ___ Bereavement ___ Rapid Response ___ Code Blue ___ Other (describe below) Pastoral Care Referral From _x__ Patient ___ Family ___ Nurse ___ Physician ___ Rn Post Partum ___ Pressurised Container Filler ___ Other (describe below) Sacrament/Intervention _x__ Active listening ___ Anointing ___ Jainism ___ Bereavement ___ Communion ___ Cindy exploration ___ ___ Life review _x__ Prayer ___ Reconciliation ___ Sacrament of Sick _x__ Supportive presence ___ Wedding ___ Other (describe below) Pastoral Comments patient reviews her recent fall and the past health needs in her life; pt welcomes support but has a hard time staying awake or focused; pt would like a prayer for her support today
--- NOTE | 2024-10-26 16:59 | PN.HOSP_ITS ---
Reason for Visit Reason for Visit: Diagnoses Polyneuropathy, unspecified (10/25/24) Venous insufficiency (chronic) (peripheral) (10/25/24) Non-pressure chronic ulcer of other part of right foot with fat layer exposed (10/25/24) Periprosthetic fracture around other internal prosthetic joint, initial encounter (10/25/24) Localized edema (10/25/24) Presence of unspecified artificial hip joint (10/25/24) Subjective Subjective Patient was seen and examined today, she is still requiring IV pain medications for control of her hip fracture pain. I talked briefly with orthopedic surgery, they confirmed that there is no surgical necessity to fix her right periprosthetic hip fracture. Objective Data Objective Data Vital Signs: Vital Signs Temp Pulse Resp BP Pulse Ox O2 Del Method O2 Flow Rate 97.9 F 66 16 113/56 L 92 Nasal Cannula 2 10/26/24 14:11 10/26/24 14:11 10/26/24 14:11 10/26/24 14:11 10/26/24 14:11 10/26/24 14:11 10/26/24 14:11 Oxygen Flow Rate (L/min) 2 Oxygen Delivery Method Nasal Cannula Weight: 95 kg Body Mass Index (BMI) 42.3 Intake & Output: Intake and Output for Last 24 Hours 10/24/24 10/25/24 10/26/24 23:59 23:59 23:59 Output Total 300 / 300 Balance -300 / -300 Lab / Micro Data 10/26/24 07:57 10/26/24 07:01 Labs: Laboratory Results - last 24 hr 10/25/24 22:19: WBC 10.4, RBC 3.45 L, Hgb 10.6 L, Hct 34.1 L, MCV 98.8, MCH 30.7, MCHC 31.1 L, RDW Std Deviation 47.1 H, RDW Coeff of Zach 13.1, Plt Count 275, MPV 10.6, Immature Gran % (Auto) 0.500, Neut % (Auto) 65.6, Lymph % (Auto) 23.0, [place] % (Auto) 7.0, Eos % (Auto) 3.4, Baso % (Auto) 0.5, Absolute Neuts (auto) 6.9, Absolute Lymphs (auto) 2.40, Nucleated RBC % 0, Sodium 138, Potassium 4.8, Chloride 106, Carbon Dioxide 28.0, Anion Gap 4 L, BUN 57 H, C reatinine 1.34 H, Estim Creat Clear Calc 36.83, Est GFR (MDRD) Af Amer 49 L, Est GFR (MDRD) Non-Af 41 L, BUN/Creatinine Ratio 42.5 H, Glucose 115 H, Calcium 9.4 10/26/24 07:01: WBC Cancelled, Corrected WBC Cancelled, RBC Cancelled, Hgb Cancelled, Hct Cancelled, MCV Cancelled, MCH Cancelled, MCHC Cancelled, RDW Std Deviation Cancelled, RDW Coeff of Zach Cancelled, Plt Count Cancelled, MPV Cancelled, Immature Gran % (Auto) Cancelled, Neut % (Auto) Cancelled, Lymph % (Auto) Cancelled, [place] % (Auto) Cancelled, Eos % (Auto) Cancelled, Baso % (Auto) Cancelled, Absolute Neuts (auto) Cancelled, Absolute Lymphs (auto) Cancelled, Total Counted Cancelled, Neutrophils % (Manual) Cancelled, Band Neutrophils % Cancelled, Lymphocytes % (Manual) Cancelled, Monocytes % (Manual) Cancelled, Eosinophils % (Manual) Cancelled, Basophils % (Manual) Cancelled, Metamyelocytes % Cancelled, Myelocytes % Cancelled, Promyelocytes % Cancelled, Blast Cells % Cancelled, Plasma Cell % (Manual) Cancelled, Other Cells % Cancelled, Nucleated RBC % Cancelled, Nucleated RBCs/100 WBC Cancelled, Differential Comment Cancelled, Diff Path Review Cancelled, Hypersegmented Neuts Cancelled, Atypical Lymphocytes Cancelled, Reactive Lymphocytes Cancelled, Smudge Cells Cancelled, Toxic Granulation Cancelled, Toxic Vacuolation Cancelled, Dohle Bodies Cancelled, Brenda Rods Cancelled, Platelet Estimate Cancelled, Plt Morphology Comment Cancelled, RBC Morphology Cancelled 10/26/24 07:01: RBC Morphology Cancelled, Polychromasia Cancelled, Hypochromasia Cancelled, Basophilic Stippling Cancelled, Anisocytosis Cancelled, Microcytosis Cancelled, Macrocytosis Cancelled, Spherocytes Cancelled, Sickle Cells Cancelled, Target Cells Cancelled, Tear Drop Cells Cancelled, Ovalocytes Cancelled, Stomatocytes Cancelled, [place] Bodies Cancelled, Kailee Cells Cancelled, Bite Cells Cancelled, Crenated Cell Cancelled, Acanthocytes (Spur) Cancelled, Rouleaux Cancelled, Schistocytes Cancelled, Sodium 138, Potassium 4.8, Chloride 108 H, Carbon Dioxide 22.0, Anion Gap 8, BUN 59 H, Creatinine 1.37 H, Estim Creat Clear Calc 34.32, Est GFR (MDRD) Af Amer 48 L, Est GFR (MDRD) Non-Af 40 L, BUN/Creatinine Ratio 43.1 H, Glucose 128 H, Calcium 9.2, Total Bilirubin 0.30, AST 25, ALT 26, Alkaline Phosphatase 73, Total Protein 6.4, A lbumin 2.8 L, Globulin 3.6, Albumin/Globulin Ratio 0.8 L 10/26/24 07:57: WBC 9.7, RBC 3.45 L, Hgb 10.4 L, Hct 34.4 L, MCV 99.7 H, MCH 30.1, MCHC 30.2 L, RDW Std Deviation 48.3 H, RDW Coeff of Zach 13.2, Plt Count 261, MPV 10.2, Immature Gran % (Auto) 0.400, Neut % (Auto) 67.1, Lymph % (Auto) 21.8, [place] % (Auto) 8.0, Eos % (Auto) 2.4, Baso % (Auto) 0.3, Absolute Neuts (auto) 6.5, Absolute Lymphs (auto) 2.12, Nucleated RBC % 0 Radiography Diagnostic Testing: Radiology Impression Brain CT 10/25/24 20:52 IMPRESSION: No acute intracranial abnormality. Mild atrophy and chronic small-vessel ischemic changes. [facility] 10/25/24 20:52 IMPRESSION: 1. No definite acute osseous abnormality. 2. Chronic displaced dens fracture and anterolisthesis of C7-T1. 3. Multilevel anterior and posterior cervical fusion with corpectomy changes. One or more dose reduction techniques were used (e.g., Automated exposure control, adjustment of the mA and/or kV according to patient size, use of iterative reconstruction technique). Reading [facility] 10/25/24 20:52 IMPRESSION: 1. No definite acute osseous abnormality. 2. Multiple chronic/incidental findings as above. One or more dose reduction techniques were used (e.g., Automated exposure control, adjustment of the mA and/or kV according to patient size, use of iterative reconstruction technique). Reading Location: [facility] Thoracic Spine CT 10/25/24 20:52 IMPRESSION: 1. No definite acute osseous abnormality. 2. Chronic/incidental findings as above. One or more dose reduction techniques were used (e.g., Automated exposure control, adjustment of the mA and/or kV according to patient size, use of iterative reconstruction technique). Reading Location: [facility] Hip/Pelvis X-Ray 10/25/24 21:20 IMPRESSION: Acute mildly displaced trochanteric/subtrochanteric periprosthetic fracture. Right hip prosthesis is otherwise intact. No additional displaced fractures or dislocation. Reading Location: [facility] Physical Exam Const alert, no apparent distress and average body habitus General Appearance: cooperative, well kempt and well developed Orientation / Consciousness: awake, oriented to person and oriented to place HEENT normocephalic, head/scalp atraumatic and moist oral mucous membranes Eyes PERRL, EOMs intact bilaterally and conjunctivae normal Neck supple, no JVD, thyroid normal and no carotid bruits General: trachea midline Resp normal respiratory effort, no retractions, no use of accessory muscles and clear to auscultation bilaterally Auscultation: Negative for rales, rhonchi or wheezes Cardio regular rate, regular rhythm, S1 normal heart sound, S2 normal heart sound, no murmurs, no rub and no gallops GI normal to inspection, nondistended, normoactive bowel sounds, soft to palpation, non-tender and non-distended Extremity no clubbing, cyanosis or edema Skin no rashes or lesions noted General Skin Exam: no breakdown Neuro CN's II-XII intact bilaterally Sensorium / Orientation: awake, alert, oriented to person and oriented to place Speech: speech normal Psych affect normal Assessment & Plan Assessment/Plan (1) Periprosthetic fracture around internal prosthetic hip joint: PLAN: Plan 1. Right periprosthetic hip fracture secondary to osteoporosis-patient will continue on IV pain medications for her discomfort as well as oral pain medications. #2 chronic kidney disease stage IIIb-complicates care, management, recovery, and prognosis #3 essential hypertension-continue present medications, monitor blood pressure #4 chronic obstructive pulmonary disease-patient will remain on programmed aerosol treatments and as needed albuterol treatments #5 chronic debility-secondary to advanced age and multiple medical problems- patient will be returning to her intermediate care facility after hospitalization here Total clinical time spent by myself addressing the patient's medical issues, reviewing all of her data, and collaborating with patient's care team: 35 minutes Charges/Coding Visit Charges Inpatient E&M: 15752 Subs Hosp L2
[2024-10-26] MEDS: 0.9% Saline Lock 10 ML Syringe IV (21:19)
[2024-10-26] MEDS: Pravastatin 40 MG Tablet PO (21:26)
[2024-10-26] MEDS: MELATONIN 10 MG TABLET 5 MG PO (21:26)
[2024-10-27 03:36] VITALS: BP 129/51; PULSE 67; RESP 20; TEMP 36.4; O2SAT 99
[2024-10-27] MEDS: Acetaminophen 325 MG Tablet 650 MG PO (03:41)
[2024-10-27] MEDS: oxyCODONE 5 MG Tablet PO (03:42)
[2024-10-27] MEDS: Gabapentin 300 MG Capsule PO ×2 (05:34→14:55)
[2024-10-27] MEDS: busPIRone 5 MG Tablet PO ×2 (05:34→14:55)
[2024-10-27 06:00] VITALS: BMI 44.1
[2024-10-27 06:58] VITALS: PULSE 53; RESP 12; O2SAT 98
[2024-10-27] MEDS: Ipratropium/Albuterol Sulfate 3 ML AMPUL.NEB INHALATION ×2 (06:58→13:05)
[2024-10-27 09:09] VITALS: BP 135/48; PULSE 57; RESP 16; TEMP 36.6; O2SAT 98
[2024-10-27] MEDS: Arthritis Pain Compound 60 CLICK TUBE TOPICAL (09:23)
[2024-10-27 09:24] VITALS: PULSE 57
[2024-10-27] MEDS: Sertraline 100 MG Tablet 200 MG PO (09:24)
[2024-10-27] MEDS: Enoxaparin 40 MG/0.4 ML Syringe SC (09:24)
[2024-10-27] MEDS: Methenamine Hippurate 1 GM Tablet PO (09:24)
[2024-10-27] MEDS: Menthol/Lanolin/Calamine/Znox 113 GM Tube 1 APPLIC TOPICAL (09:25)
--- NOTE | 2024-10-27 12:43 | PCM.TXEXTCAR ---
Diet Diet Order/Speech Therapy: 10/26/24 01:44 Diet: Cardiac - Heart Healthy Food consistency:: Regular Liquid Consistency:: Regular/Thin Routine Orders/Code Status Code Status: Full Code DC O2, CPAP, BIPAP needs Home O2 Discharge instructions: Yes Type of respiratory needs?: Oxygen Oxygen frequency: Continuous Continuous oxygen liters per minute: 2 L Wound(s) RT BUTTOCK: Wound Type: Pressure Injury rt foot: Wound Type: chronic foot wound Therapies Narrative: Resume previous activity level as before Problem/Diagnosis (1) Periprosthetic fracture around internal prosthetic hip joint: Status: Acute Code(s): M97.8XXA - Periprosthetic fracture around other internal prosthetic joint, initial encounter; Z96.649 - Presence of unspecified artificial hip joint Plan 1. Right periprosthetic hip fracture secondary to osteoporosis-patient will continue on IV pain medications for her discomfort as well as oral pain medications. #2 chronic kidney disease stage IIIb-complicates care, management, recovery, and prognosis #3 essential hypertension-continue present medications, monitor blood pressure #4 chronic obstructive pulmonary disease-patient will remain on programmed aerosol treatments and as needed albuterol treatments #5 chronic debility-secondary to advanced age and multiple medical problems-patient will be returning to her intermediate care facility after hospitalization here #6 chronic hypoxic respiratory failure Total clinical time spent by myself addressing the patient's medical issues, reviewing all of her data, and collaborating with patient's care team: 35 minutes Allergies/Procedures Done in Hospital Allergies morphine Allergy (Unknown, Verified 10/25/24 20:17) unknown amoxicillin (From Augmentin) Adverse Reaction (Verified 10/25/24 20:17) Nausea/Vom/Diarrhea clavulanic acid (From Augmentin) Adverse Reaction (Verified 10/25/24 20:17) Nausea/Vom/Diarrhea nitrofurantoin macrocrystalline (From Macrodantin) Adverse Reaction (Verified 10/25/24 20:17) Vomiting sulfamethoxazole (From Bactrim) Adverse Reaction (Verified 10/25/24 20:17) Nausea/Vom/Diarrhea trimethoprim (From Bactrim) Adverse Reaction (Verified 10/25/24 20:17) Nausea/Vom/Diarrhea Procedures: None Type of Care/Length of Stay Estimated LOS: More Than 30 Days Type of Care Needed: Intermediate Rehab Potential: Fair Prognosis: Fair Additional Orders/Day of Discharge H&P will serve as current which was dated: 10/25/24 Day of Discharge: 10/27/24 Dietary and Speech Recommendations Dietitian Recommendations/Changes: Continue cardiac diet. Will d/c ensure plus HP w/ medpass. Consult RD as needed. Discharge Plan Admission Admit Date/Time: 10/25/24 23:21 Primary Reason for Your Visit: Right periprosthetic hip fracture Attending Provider: Alfred Watson Primary Care Provider: Wolf Berry Consulting Providers: Jadon Dolan; Kay Padilla Discharge Orders/Prescriptions Prescriptions: New acetaminophen 325 mg Tablet 650 mg PO Q4H PRN PRN (Reason: Fever, pain 1-10) Qty: 0 0RF albuterol sulfate 2.5 mg /3 mL (0.083 %) Solution For Nebulization 2.5 mg inhalation Q2H PRN PRN (Reason: Dyspnea, wheezing) Qty: 0 0RF gabapentin 300 mg Capsule 300 mg PO TID Qty: 0 0RF oxycodone 5 mg Tablet 5 - 10 mg PO Q4H PRN PRN (Reason: Pain Score 4-10) 5 Days Qty: 15 0RF menthol-zinc oxide [Calmoseptine] 0.44-20.6 % Ointment 1 applic topical 4X/DAY Qty: 0 0RF Protocol: *Topical Application Instructions APPLICATION INSTRUCTIONS: apply to affected region Continued pravastatin 40 mg tablet 40 mg PO QHS metoprolol succinate 50 mg tablet extended release 24 hr 50 mg PO DAILY fluticasone furoate-vilanterol [Breo Ellipta] 100-25 mcg/dose blister with device 1 inh inhalation DAILY buspirone 5 mg tablet 5 mg PO TID cholecalciferol (vitamin D3) 100 mcg (4,000 unit) tablet 100 mcg PO DAILY Centrum Silver 0.4 mg-300 mcg- 250 mcg tablet 1 tab PO DAILY methenamine hippurate 1 GM tablet 1 g PO BID Rx Instructions: this can be used ongoing for prevention of uti. ondansetron HCl 4 mg tablet 4 mg PO Q8H PRN (Reason: Nausea) sennosides-docusate sodium 8.6-50 mg tablet 1 tab PO BID PRN (Reason: CONSTIPATION) sertraline 100 mg tablet 200 mg PO DAILY guaifenesin [Siltussin SA] 100 mg/5 mL Liquid 200 mg PO Q6H PRN (Reason: COUGH/SORE THROAT) melatonin 5 mg Tablet 5 mg PO QHS ULTRAFLORA [facility] 170 mg PO/SL DAILY hydrocortisone [Preparation H Hydrocortisone] 1 % Cream 1 applic TOPICAL TID PRN (Reason: Hemorrhoids) Biofreeze (menthol) 4 % gel 1 applic topical BID PRN (Reason: pain) Rx Instructions: apply to shoulder and lower back polyethylene glycol 3350 [ClearLax] 17 gram/dose powder 17 g PO DAILY PRN (Reason: constipation) bisacodyl 10 mg suppository 10 mg DC DAILY PRN (Reason: constipation) estradiol 0.01 % (0.1 mg/gram) cream 1 appful vaginal .COMPLEX Patient Comments: PATIENT INSTRUCTIONS STATE TO APPLY TO GROIN TOPICALLY FOR UTI Rx Instructions: 1 appful vaginally; 1 appful vaginally EVERY MON,WED,FRI; magnesium hydroxide [Dulcolax (magnesium hydroxide)] 400 mg/5 mL suspension 30 ml PO DAILY PRN (Reason: constipation) albuterol sulfate 90 mcg/actuation aerosol powdr breath activated 2 inh inhalation Q4H Discontinued pomegranate fruit extract 250 mg capsule 250 mg PO DINNER albuterol sulfate 2.5 mg /3 mL (0.083 %) Solution For Nebulization 2.5 mg INHALATION Q4H PRN (Reason: SOB/WHEEZING) acetaminophen 500 mg Tablet 500 mg PO Q6H PRN (Reason: Pain) mineral oil [[id number] Enema (min oil)] Enema 118 ml DC DAILY PRN (Reason: constipation) Rx Instructions: discard any unused portion oxycodone-acetaminophen [Percocet] 5-325 mg tablet 1 tab PO TID PRN (Reason: pain) 3 Days Qty: 9 0RF gabapentin 100 mg capsule 200 mg PO TID Patient Comments: [NO ORIGINAL SIG] Referrals / Follow Up: Wolf Berry MD [Primary Care Provider] - Garth Kenny MD [Med Staff - Active Staff] - See Referral Note (Follow-up in 2 weeks-call for an office appointment) [facility] [facility] [Non-Staff] - See Referral Note (Call to arrange follow-up appointment for right foot wound) Disposition Disposition (needs filled in before D/C Order can be placed): NonSkilled NH/[facility] Care
--- NOTE | 2024-10-27 13:03 | DS.PCM_ITS ---
Providers Date of Admission: 10/25/24 Date of Discharge: 10/27/24 Primary Care Physician: Dr. Wolf Berry MD Consultations 10/26/24 01:44 Consult: Podiatry Routine Consulting Provider: Jadon Dolan Reason for Consult: R 2nd toe wound EMERGENT Consult: No Notified: Yes Date Notified: 10/26/24 Time Notified: 01:12 Method of Notification: Text Reason For Visit: FALL, PERIPROSTHETIC HIP FRACTURE Diagnosis Discharge Diagnosis (1) Periprosthetic fracture around internal prosthetic hip joint: Status: Acute Code(s): M97.8XXA - Periprosthetic fracture around other internal prosthetic joint, initial encounter; Z96.649 - Presence of unspecified artificial hip joint Plan 1. Right periprosthetic hip fracture secondary to osteoporosis-patient will continue on IV pain medications for her discomfort as well as oral pain medications. #2 chronic kidney disease stage IIIb-complicates care, management, recovery, and prognosis #3 essential hypertension-continue present medications, monitor blood pressure #4 chronic obstructive pulmonary disease-patient will remain on programmed aerosol treatments and as needed albuterol treatments #5 chronic debility-secondary to advanced age and multiple medical problems- patient will be returning to her intermediate care facility after hospitalization here #6 chronic hypoxic respiratory failure Total clinical time spent by myself addressing the patient's medical issues, reviewing all of her data, and collaborating with patient's care team: 35 minutes Medications at Discharge Home Medications pravastatin 40 mg tablet 40 mg PO QHS CHOLESTEROL 01/17/18 methenamine hippurate 1 gram tablet 1 g PO BID URINARY 04/12/20 metoprolol succinate 50 mg tablet,extended release 24 hr 50 mg PO DAILY HEART 06/07/20 fluticasone furoate 100 mcg-vilanterol 25 mcg/dose inhalation powder (Breo Ellipta) 1 inh inhalation DAILY breathing 08/03/21 cholecalciferol (vitamin D3) 100 mcg (4,000 unit) tablet 100 mcg PO DAILY SUPPLEMENT 02/13/22 ondansetron HCl 4 mg tablet 4 mg PO Q8H PRN Nausea 02/13/22 sennosides 8.6 mg-docusate sodium 50 mg tablet 1 tab PO BID PRN CONSTIPATION 02/13/22 azjbksfl-doe-ojixe acid 0.4 mg-lycopene 300 mcg-lutein 250 mcg tablet (Centrum Silver) 1 tab PO DAILY vitamin 06/14/22 ULTRAFLORA IMMUNE HEALTH 170 mg PO/SL DAILY GUT HEALTH 09/20/22 guaifenesin 100 mg/5 mL oral liquid (Siltussin SA) 200 mg PO Q6H PRN COUGH/SORE THROAT 09/20/22 melatonin 5 mg tablet 5 mg PO QHS SLEEP 09/20/22 sertraline 100 mg tablet 200 mg PO DAILY DEPRESSION 09/20/22 hydrocortisone 1 % topical cream (Preparation H Hydrocortisone) 1 applic topical TID PRN Hemorrhoids 09/21/22 buspirone 5 mg tablet 5 mg PO TID mental health 03/14/23 menthol 4 % topical gel (Biofreeze (menthol)) 1 applic topical BID PRN pain 09/21/23 polyethylene glycol 3350 17 gram/dose oral powder (ClearLax) 17 g PO DAILY PRN constipation 09/21/23 bisacodyl 10 mg rectal suppository 10 mg WI DAILY PRN constipation 03/14/24 estradiol 0.01% (0.1 mg/gram) vaginal cream 1 appful vaginal .COMPLEX 03/14/24 magnesium hydroxide 400 mg/5 mL oral suspension (Dulcolax (magnesium hydroxide)) 30 ml PO DAILY PRN constipation 03/14/24 albuterol sulfate 90 mcg/actuation breath activated powder inhaler 2 inh inhalation Q4H 10/25/24 acetaminophen 325 mg tablet 650 mg (2 x 325 mg) PO Q4H PRN PRN Fever, pain 1- 10/10 #0 tabs 10/27/24 albuterol sulfate 2.5 mg/3 mL (0.083 %) solution for nebulization 2.5 mg (3 mL) inhalation Q2H PRN PRN Dyspnea, wheezing #0 mL 10/27/24 gabapentin 300 mg capsule 300 mg PO TID #0 caps 10/27/24 menthol 0.44 %-zinc oxide 20.6 % topical ointment (Calmoseptine) 1 applic topical 4X/DAY #0 grams 10/27/24 oxycodone 5 mg tablet 5 - 10 mg (1 - 2 x 5 mg) PO Q4H PRN PRN Pain Score 4-10 5 days #15 tabs 10/27/24 Hospital Course Operations None Procedures None Summary of Care Provided Minutes Spent on Discharge: 32 Hospital Course: This 79-year-old white female was seen in the emergency room at [facility] after being transported from an intermediate care facility after she had a mechanical fall when her wheelchair tipped over and she landed on her right hip. She complained of right hip pain, patient is nonambulatory at baseline. X-rays of the right hip revealed an acute mildly displaced periprosthetic fracture. Discussion was carried out with orthopedic surgery by phone and orthopedic surgery felt that this was a nonsurgical issue. Patient was admitted to [place] [address], she was given pain medication and her outpatient medications were continued. On 10/27/2024, patient was seen and examined: On examination she appeared in good health and spirits, she does not appear to be in any distress. Vital signs as documented. Skin warm and dry and without overt rashes. Neck without JVD, thyroid appears normal, trachea is midline, neck is supple. Lungs clear, normal air movement was noted. Heart exam notable for regular rhythm, normal sounds and absence of murmurs, rubs or gallops. Abdomen unremarkable and without evidence of organomegaly, masses, or abdominal aortic enlargement, bowel sounds are present in all 4 quadrants, no abdominal tenderness was noted. Extremities nonedematous, no cyanosis was noted, no clubbing was noted. Patient is nonambulatory. Neuro: Cranial nerves II through XII are grossly intact, patient is nonambulatory, sensation to light touch and pinprick is intact Psych: Patient is alert and oriented x3, she does not appear anxious or depressed, she does not appear agitated. On 10/27/2024, patient was felt to be stable for transfer back to her intermediate care facility. Weight / BMI Weight Weight: 99.3 kg Body Mass Index (BMI) 44.1 ABG / Lab / Microbiology Data 10/26/24 07:57 10/26/24 07:01 D/C Instructions DC O2, CPAP, BIPAP Needs Home O2 Discharge instructions: Yes Type of respiratory needs?: Oxygen Oxygen frequency: Continuous Continuous oxygen liters per minute: 2 L DC home with Oxygen: Yes Home O2 MD Review: I have reviewed the oxygen testing, and the patient qualifies for home oxygen equipment and portability. The patient is mobile in the home and the community. Meaningful Use Info Meaningful Use Meaningful Use Diagnoses (Choose all that apply): None applicable Ischemic Stroke Statin Dosing Therapy Reference: STATIN DOSE THERAPY REFERENCE: * Patients > 75 years receive moderate or high dose statin therapy. * Patients 75 years or YOUNGER should receive HIGH intensity statin dose unless contraindicated. You will be required to document reason for non-treatment if statin daily dose does not meet guidelines. HIGH DOSE STATIN THERAPY DAILY Atorvastatin > than or = to 40 mg Rosuvastatin > than or = to 20 mg Amlodipine + Atorvastatin > than or = to 2.5/40 mg Ezetimibe + Simvastatin 10/80 mg Simvastatin 80mg Discharge Plan Admission Admit Date/Time: 10/25/24 23:21 Primary Reason for Your Visit: Right periprosthetic hip fracture Attending Provider: Alfred Watson Primary Care Provider: Wolf Berry Consulting Providers: Jadon Dolan; Kay Padilla Discharge Orders/Prescriptions Prescriptions: New acetaminophen 325 mg Tablet 650 mg PO Q4H PRN PRN (Reason: Fever, pain 1-10/10) Qty: 0 0RF albuterol sulfate 2.5 mg /3 mL (0.083 %) Solution For Nebulization 2.5 mg inhalation Q2H PRN PRN (Reason: Dyspnea, wheezing) Qty: 0 0RF gabapentin 300 mg Capsule 300 mg PO TID Qty: 0 0RF oxycodone 5 mg Tablet 5 - 10 mg PO Q4H PRN PRN (Reason: Pain Score 4-10) 5 Days Qty: 15 0RF menthol-zinc oxide [Calmoseptine] 0.44-20.6 % Ointment 1 applic topical 4X/DAY Qty: 0 0RF Protocol: *Topical Application Instructions APPLICATION INSTRUCTIONS: apply to affected region Continued pravastatin 40 mg tablet 40 mg PO QHS metoprolol succinate 50 mg tablet extended release 24 hr 50 mg PO DAILY fluticasone furoate-vilanterol [Breo Ellipta] 100-25 mcg/dose blister with device 1 inh inhalation DAILY buspirone 5 mg tablet 5 mg PO TID cholecalciferol (vitamin D3) 100 mcg (4,000 unit) tablet 100 mcg PO DAILY Centrum Silver 0.4 mg-300 mcg- 250 mcg tablet 1 tab PO DAILY methenamine hippurate 1 GM tablet 1 g PO BID Rx Instructions: this can be used ongoing for prevention of uti. ondansetron HCl 4 mg tablet 4 mg PO Q8H PRN (Reason: Nausea) sennosides-docusate sodium 8.6-50 mg tablet 1 tab PO BID PRN (Reason: CONSTIPATION) sertraline 100 mg tablet 200 mg PO DAILY guaifenesin [Siltussin SA] 100 mg/5 mL Liquid 200 mg PO Q6H PRN (Reason: COUGH/SORE THROAT) melatonin 5 mg Tablet 5 mg PO QHS ULTRAFLORA IMMUNE HEALTH 170 mg PO/SL DAILY hydrocortisone [Preparation H Hydrocortisone] 1 % Cream 1 applic TOPICAL TID PRN (Reason: Hemorrhoids) Biofreeze (menthol) 4 % gel 1 applic topical BID PRN (Reason: pain) Rx Instructions: apply to shoulder and lower back polyethylene glycol 3350 [ClearLax] 17 gram/dose powder 17 g PO DAILY PRN (Reason: constipation) bisacodyl 10 mg suppository 10 mg WI DAILY PRN (Reason: constipation) estradiol 0.01 % (0.1 mg/gram) cream 1 appful vaginal .COMPLEX Patient Comments: PATIENT INSTRUCTIONS STATE TO APPLY TO GROIN TOPICALLY FOR UTI Rx Instructions: 1 appful vaginally; 1 appful vaginally EVERY MON,WED,FRI; magnesium hydroxide [Dulcolax (magnesium hydroxide)] 400 mg/5 mL suspension 30 ml PO DAILY PRN (Reason: constipation) albuterol sulfate 90 mcg/actuation aerosol powdr breath activated 2 inh inhalation Q4H Discontinued pomegranate fruit extract 250 mg capsule 250 mg PO DINNER albuterol sulfate 2.5 mg /3 mL (0.083 %) Solution For Nebulization 2.5 mg INHALATION Q4H PRN (Reason: SOB/WHEEZING) acetaminophen 500 mg Tablet 500 mg PO Q6H PRN (Reason: Pain) mineral oil [Wzaga-Hx-Ymh Enema (min oil)] Enema 118 ml WI DAILY PRN (Reason: constipation) Rx Instructions: discard any unused portion oxycodone-acetaminophen [Percocet] 5-325 mg tablet 1 tab PO TID PRN (Reason: pain) 3 Days Qty: 9 0RF gabapentin 100 mg capsule 200 mg PO TID Patient Comments: [NO ORIGINAL SIG] Referrals / Follow Up: Wolf Berry MD [Primary Care Provider] - Garth Kenny MD [Med Staff - Active Staff] - See Referral Note (Follow-up in 2 weeks-call for an office appointment) [facility] [Non-Staff] - See Referral Note (Call to arrange follow-up appointment for right foot wound) Disposition Disposition (needs filled in before D/C Order can be placed): NonSkilled NH/Intermed Care Charges/Coding Visit Charges Inpatient E&M: 97174 Disch Hosp >30min
[2024-10-27 13:06] VITALS: PULSE 64; RESP 16
--- NOTE | 2024-10-27 13:07 | CASEMGMT ---
Social Work- Physician feels that pt is ready for discharge today.? [facility] notified of discharge. Final discharge arrangements and notification to patient/family as per discharge speech pathology assistant.? Plan: [facility]; intermediate level of care YESI Mccabe
--- NOTE | 2024-10-27 14:30 | CASEMGMT ---
Discharge Planning Discharge orders, signed med list, and transport time sent to [facility]. Physicians will transport pt by cot at 3p. Nursing, SW, pt, and her daughter (Naina) updated. María Aragon DC Planning Asst.
== END 2024-10-27 15:13 | disposition intermediate care facility (04) | DRG 464 ==
LOC: ED 20:53 → MS3 23:53
PROVIDERS: Admitting Provider Family Medicine; Emergency Provider Emergency Medicine; PCP Family Medicine; Referring Provider Emergency Medicine; Visit Provider Internal Medicine
DX: M80.051A Age-related osteoporosis with current pathological fracture, right femur, initial encounter for fracture (principal); M97.01XA Periprosthetic fracture around internal prosthetic right hip joint, initial encounter; Z68.41 Body mass index [BMI] 40.0-44.9, adult; J96.11 Chronic respiratory failure with hypoxia; D63.1 Anemia in chronic kidney disease; Z99.81 Dependence on supplemental oxygen; J44.9 Chronic obstructive pulmonary disease, unspecified; N18.32 Chronic kidney disease, stage 3b; I12.9 Hypertensive chronic kidney disease with stage 1 through stage 4 chronic kidney disease, or unspecified chronic kidney disease; F32.A Depression, unspecified; L97.512 Non-pressure chronic ulcer of other part of right foot with fat layer exposed; E66.01 Morbid (severe) obesity due to excess calories; E78.5 Hyperlipidemia, unspecified; R54 Age-related physical debility; V00.811A Fall from moving wheelchair (powered), initial encounter; F41.9 Anxiety disorder, unspecified; I87.2 Venous insufficiency (chronic) (peripheral); G62.89 Other specified polyneuropathies; Z96.641 Presence of right artificial hip joint; Z79.51 Long term (current) use of inhaled steroids; Z79.899 Other long term (current) drug therapy; Z87.440 Personal history of urinary (tract) infections
CPT/HCPCS: 15275; 36415; 70450; 72125; 72128; 72131; 73502; 80048; 80053; 85025; 94640; 94668; 97162; 97166; 97802; 99285; Q4186; A4216

== ENCOUNTER 2024-11-26 08:00 | Outpatient (RCR) | payer MEDICARE, OTHER, MEDICAID, SELFPAY ==
[2024-10-31 00:44] VITALS: BP 177/55; PULSE 54; RESP 18; TEMP 36.2
[2024-11-05 08:09] VITALS: BP 141/76; PULSE 57; RESP 18; TEMP 36.1
--- NOTE | 2024-11-05 08:32 | PN.PCM_ITS ---
History of Present Illness Date of Service: 11/05/24 Chief Complaint: Ulceration dorsal second digit right foot History of Wound: This is a 79-year-old female who was referred to the wound care center for a nonhealing ulceration of the dorsal aspect of the second digit right foot. Patient states ulceration occurred after 2 aids at the [facility] facility transferred her utilizing a Jareth and bumped her toe against a refrigerator. States she has been going to the foot and ankle Center for cont inued care with Dr. Worley and they were applying Betadine daily for the last 8 weeks. Patient over that time has failed to progress in wound healing, but also states dressings have not been changed as instructed at her facility. She has followed with vascular surgery with LEAS performed in June 2024 demonstrating adequate perfusion with no evidence of arterial disease. Patient was referred to the wound care center for continued wound healing. She denies N/V/F/chills. Denies pain to the ulcerative site. Denies diabetes. 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 Denies further complaints. Subjective Subjective This 79-year-old female returns to the wound care center today for continued care of the dorsal ulceration to the second digit of the right foot. Accompanied by lay midwife from facility and daughter also present today. She has neuropathy and has no sensation to the foot. Persistent swelling remains to lower extremities. Graft has been left intact to Right foot. She was recently admitted to [facility] for mildly displaced trochanteric/periprosthetic fracture of the left hip secondary to falling from a Jareth lift at her facility during transfer. Hip fracture was nonoperable and she was later discharged. States her hip still does hurt. Denies constitutional symptoms. Denies further complaints. Objective Data Objective Data Vital Signs: Vital Signs Temp Pulse Resp BP O2 Flow Rate 97 F L 57 L 18 141/76 H 2 11/05/24 08:09 11/05/24 08:09 11/05/24 08:09 11/05/24 08:09 10/31/24 00:44 Oxygen Flow Rate (L/min) 2 Physical Exam Const alert, oriented x3 and no apparent distress General Appearance: cooperative HEENT normocephalic Eyes General Eye: normal appearance of both eyes Neck General: normal visual inspection Lymph Lymphatic: no lymphadenopathy noted and no lymphedema noted Resp normal respiratory effort Cardio regular rate and regular rhythm Extremity no calf tenderness Extremity Narrative: Right lower extremity: Vascular: DP and PT pulses nonpalpable secondary to edema. CFT is less than 4 seconds to digits. Normal temperature gradient. Hair growth is absent to digits. Neurologic: Diminished sensation secondary to neuropathy post back surgery. Gross sensation intact. Motor function intact. Musculoskeletal: Muscle strength 4 of 5 secondary to prior surgery and nonambulatory status. No pain to palpation of calf. No pain to palpation about ulcerative site. Decreased range of motion of the ankle joint in dorsiflexion with knee extended without pain or crepitus. Decreased range of motion of the first MTPJ without pain or crepitus. Dermatologic: There is moderate lower extremity edema secondary to her prior back surgery. Skin turgor normal. Ulceration to the dorsal aspect of the second digit overlying the proximal interphalangeal joint demonstrates superficial stable eschar overlying previous site from previous graft product. No erythema, no purulent drainage, no malodor. No signs of infection. Left lower extremity: Vascular: DP and PT pulses nonpalpable secondary to edema. CFT is less than 4 seconds to digits. Normal temperature gradient. Hair growth is absent to digits. Neurologic: Diminished sensation secondary to neuropathy post back surgery. Gross sensation intact. Motor function intact. Musculoskeletal: Muscle strength 4 of 5 secondary to prior surgery and nonambulatory status. No pain to palpation of calf. Decreased range of motion of the ankle joint in dorsiflexion with knee extended without pain or crepitus. Decreased range of motion of the first MTPJ without pain or crepitus. Dermatologic: There is moderate lower extremity edema secondary to her prior back surgery. Skin turgor normal. Skin is mildly xerotic but otherwise unremarkable. Skin no rashes or lesions noted and skin turgor normal Neuro moves all extremities Debridement Note Debridement Note No debridement was completed: No debridement was completed today Post-Debridement Measurements and Additional Note: Post-Debridement Measurements/Treatment ADÁN - Nurse 1 - General Ulcer Assessment Start: 11/05/24 08:08 Freq: Status: Active Protocol: ISRAEL Activity Type Activity Date Activity User E-sign Co-sign Detail Recorded Client Recorded Date Recorded By Document 11/05/24 08:09 DL [id number] 11/05/24 08:18 DL 11/05/24 08:09 ADÁN - Today's Visit Information Type of service Follow-up Visit (Physician/PERINATAL INSTRUCTOR ) Arrival Mode Wheelchair Transfer Assistance None Patient Identification Verified (Name & Yes ) Patient Requires Transmission-Based No Precautions Vital Signs Temperature (97.8 F-99.1 F) 97 F L Temperature Source Temporal Pulse Rate (60-100) 57 L Pulse Location Monitor Respiratory Rate (12-18) 18 Respiratory rate source Observation Blood Pressure (90/60-120/80) 141/76 H Blood Pressure Mean (mm Hg) 97 Source Monitor History Since Last Visit- (Skip if this is Patient's initial visit) Have you changed medications since your No last visit? Any new allergies or adverse reactions No Had a fall/change in ADL's that may No increase risk of falls Signs or symptoms of abuse and/or No neglect since last visit Have you been in the hospital since your Yes last visit? Has dressing in place as prescribed Yes Has compression in place as prescribed Yes Has offloadiing in place as prescribed Yes Experienced any changes in pain level or No management Left Footwear Surgical Shoe with pressure relief insole Right Footwear Surgical Shoe with pressure relief insole Pain Scale: 0-10 Numeric Is Patient Pain Free? Yes WC - Nurse 1 - General Ulcer Measurement Start: 11/05/24 08:08 Freq: Status: Active Protocol: Activity Type Activity Date Activity User E-sign Co-sign Detail Recorded Client Recorded Date Recorded By Document 11/05/24 08:09 SHAWN [id number] 11/05/24 08:18 DL 11/05/24 08:09 Wound Center Nurse 1 #4 R 2nd toe -Current Size (cm) - Length 0.1 -Current Size (cm) - Width 0.1 -Current Size (cm) - Depth 0.1 -Total Square Cm 0.01 -Photo Taken Yes -Exudate Amt None Present -Wound Margin Flat & Intact -Granulation Amt Large (67-100%) -Necrosis Amt Small (1-33%) -Necrotic Tissue Type Eschar -Structure Exposed N/A -Texture (Destiny-wound Skin Appearance) Scarring -Moisture (Destiny-wound Skin Appearance) Dry/Scaly -Color (Destiny-wound Skin Appearance) No Abnormality -Temperature (Destiny-wound Skin No Abnormality Appearance) (Pt Warm) -Ulcer Cleansing Rinsed/ Irrigated with Saline -Anesthetic Used 5% Lidocaine Gel,Cetacaine Assessment/Plan Assessment/Plan (1) Non-pressure chronic ulcer of other part of right foot with fat layer exposed: CODE(S): L97.512 - Non-pressure chronic ulcer of other part of right foot with fat layer exposed (2) Neuropathy: CODE(S): G62.9 - Polyneuropathy, unspecified (3) Venous insufficiency (chronic) (peripheral): CODE(S): I87.2 - Venous insufficiency (chronic) (peripheral) (4) Edema, lower extremity: CODE(S): R60.0 - Localized edema PLAN: Plan Patient seen and evaluated Predebridement: 0.1 cm x 0.1 cm x 0.1 cm Ulceration is secondary to trauma during assisted transfer at her facility. Ulceration did not undergo debridement as noted in the clinical panel above. Postdebridement measurement 0.1 cm x 0.1 cm x 0.1 cm with healthy granular tissue. No signs of infection. EpiFix graft #6 applied to the ulceration base 10/22/24. Site integrated well. There is a very small stable eschar at graft site. No signs of infection. Will continue to pad and protect with Band-Aid for next 7 to 10 days. Ulcerative site has improved with reduction in size versus previous visit. She is to continue to elevate lower extremities at all times of rest for edema control. Patient does have neuropathy and bilateral lower extremity edema secondary to previous back surgery and nonambulatory status. Patient does transport with the assistance of motorized wheelchair. Discussed continued protein intake to aid in wound healing. Nael supplementation/boost was also recommended to be continued She has been approved for advanced wound care product, EpiFix. Will continue applications. I did discuss today with her and her daughter possible debridement to the level of bone and removing any prominence of bone underlying her ulceration site as this may be a potential cause of reulceration in addition to her continued edema of the lower extremity. She states she will think about the procedure now that this has been discussed with family. Discussed signs and symptoms of infection with the patient and Multiple Pressure Riveter Operator lay midwife today. Educated them that if patient experiences increased redness about the ulcerative site that moves along the dorsal foot or up the leg, if she gets purulent drainage from the wound site, increasing foul odor from the wound site, or if she experiences fever greater than 101 degree accompanied by nausea, vomiting, chills that these are signs of a progressing infection and she should report to the ED to receive IV antibiotics and further evaluation. I have discussed potential risks of amputation secondary to depth of the wound and close proximity to bone. She is aware that if infection does set in the digit would likely need to be amputated at the corresponding metatarsal phalangeal joint. The following work up and care recommendations were made: Dressing: Pad and protect with Band-Aid for next 7 to 10 days. Wash: Wash with soap and water Tissue growth optimization: None Offload: Continue wearing surgical shoe to offload dorsal aspect of the right foot Vascular: LEAS performed June 2024 demonstrating no underlying arterial disease. Vascular status not impeding wound healing Edema: Continue wearing compression stockings and elevate lower extremities to aid in edema control Infection: No signs of infection Pain: No pain secondary to neuropathy related to prior back surgery Host factors: Chronic venous insufficiency, chronic bilateral lower extremity edema, nonambulatory status secondary to prior back surgery I answered all the patient's questions. To return to the wound healing center in 1 week or call sooner if the patient has any questions or concerns.
[2024-11-12 08:09] VITALS: BP 154/47; PULSE 55; RESP 18; TEMP 36.4
--- NOTE | 2024-11-12 09:07 | PN.PCM_ITS ---
History of Present Illness Date of Service: 11/12/24 Chief Complaint: Ulceration dorsal second digit right foot History of Wound: This is a 79-year-old female who was referred to the wound care center for a nonhealing ulceration of the dorsal aspect of the second digit right foot. Patient states ulceration occurred after 2 aids at the [place] skilled facility transferred her utilizing a Jareth and bumped her toe against a refrigerator. States she has been going to the [facility] for cont inued care with Dr. Worley and they were applying Betadine daily for the last 8 weeks. Patient over that time has failed to progress in wound healing, but also states dressings have not been changed as instructed at her facility. She has followed with vascular surgery with LEAS performed in June 2024 demonstrating adequate perfusion with no evidence of arterial disease. Patient was referred to the wound care center for continued wound healing. She denies N/V/F/chills. Denies pain to the ulcerative site. Denies diabetes. 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 Denies further complaints. Subjective Subjective This 79-year-old female returns to the wound care center today for continued care of the dorsal ulceration to the second digit of the right foot. Accompanied by reservations sales agent from facility and daughter also present today. She has neuropathy and has no sensation to the foot. Persistent swelling remains to lower extremities. States she is getting some improvement following right hip fracture. Reports she is continuing to be careful to not bump the toe to reopen her wound. Denies constitutional symptoms. Denies further complaints. Objective Data Objective Data Vital Signs: Vital Signs Temp Pulse Resp BP O2 Flow Rate 97.6 F L 55 L 18 154/47 H 2 11/12/24 08:09 11/12/24 08:09 11/12/24 08:09 11/12/24 08:09 10/31/24 00:44 Oxygen Flow Rate (L/min) 2 Physical Exam Const alert, oriented x3 and no apparent distress General Appearance: cooperative HEENT normocephalic Eyes General Eye: normal appearance of both eyes Neck General: normal visual inspection Lymph Lymphatic: no lymphadenopathy noted and no lymphedema noted Resp normal respiratory effort Cardio regular rate and regular rhythm Extremity no calf tenderness Extremity Narrative: Right lower extremity: Vascular: DP and PT pulses nonpalpable secondary to edema. CFT is less than 4 seconds to digits. Normal temperature gradient. Hair growth is absent to digits. Neurologic: Diminished sensation secondary to neuropathy post back surgery. Gross sensation intact. Motor function intact. Musculoskeletal: Muscle strength 4 of 5 secondary to prior surgery and nonambulatory status. No pain to palpation of calf. No pain to palpation about ulcerative site. Decreased range of motion of the ankle joint in dorsiflexion with knee extended without pain or crepitus. Decreased range of motion of the first MTPJ without pain or crepitus. Dermatologic: There is moderate lower extremity edema secondary to her prior back surgery. Skin turgor normal. Ulceration to the dorsal aspect of the second digit overlying the proximal interphalangeal joint demonstrates newly epithelializing skin however this is still friable. No erythema, no purulent drainage, no malodor. No signs of infection. Left lower extremity: Vascular: DP and PT pulses nonpalpable secondary to edema. CFT is less than 4 seconds to digits. Normal temperature gradient. Hair growth is absent to digits. Neurologic: Diminished sensation secondary to neuropathy post back surgery. Gross sensation intact. Motor function intact. Musculoskeletal: Muscle strength 4 of 5 secondary to prior surgery and nonambulatory status. No pain to palpation of calf. Decreased range of motion of the ankle joint in dorsiflexion with knee extended without pain or crepitus. Decreased range of motion of the first MTPJ without pain or crepitus. Dermatologic: There is moderate lower extremity edema secondary to her prior back surgery. Skin turgor normal. Skin is mildly xerotic but otherwise unremarkable. Skin no rashes or lesions noted and skin turgor normal Neuro moves all extremities Debridement Note Debridement Note No debridement was completed: No debridement was completed today Post-Debridement Measurements and Additional Note: Post-Debridement Measurements/Treatment - Nurse 1 - General Ulcer Assessment Start: 11/05/24 08:08 Freq: Status: Active Protocol: ADÁN.GRANT Activity Type Activity Date Activity User E-sign Co-sign Detail Recorded Client Recorded Date Recorded By Document 11/05/24 08:09 DL [id number] 11/05/24 08:18 DL Document 11/12/24 08:09 DL [id number] 11/12/24 08:16 DL 11/05/24 11/12/24 08:09 08:09 - Today's Visit Information Type of service Follow-up Visit Follow-up Visit (Physician/TREND INVESTIGATOR (Physician/TREND INVESTIGATOR ) ) Arrival Mode Wheelchair Wheelchair Transfer Assistance None None Patient Identification Verified (Name & Yes Yes ) Patient Requires Transmission-Based No No Precautions Vital Signs Temperature (97.8 F-99.1 F) 97 F L 97.6 F L Temperature Source Temporal Temporal Pulse Rate (60-100) 57 L 55 L Pulse Location Monitor Monitor Respiratory Rate (12-18) 18 18 Respiratory rate source Observation Observation Blood Pressure (90/60-120/80) 141/76 H 154/47 H Blood Pressure Mean (mm Hg) 97 82 Source Monitor Monitor History Since Last Visit- (Skip if this is Patient's initial visit) Have you changed medications since your No No last visit? Any new allergies or adverse reactions No No Had a fall/change in ADL's that may No No increase risk of falls Signs or symptoms of abuse and/or No No neglect since last visit Have you been in the hospital since your Yes No last visit? Has dressing in place as prescribed Yes Yes Has compression in place as prescribed Yes Yes Has offloadiing in place as prescribed Yes Yes Experienced any changes in pain level or No No management Left Footwear Surgical Shoe Surgical Shoe with pressure with pressure relief insole relief insole Right Footwear Surgical Shoe Surgical Shoe with pressure with pressure relief insole relief insole Pain Scale: 0-10 Numeric Is Patient Pain Free? Yes Yes WC - Nurse 1 - General Ulcer Measurement Start: 11/05/24 08:08 Freq: Status: Active Protocol: Activity Type Activity Date Activity User E-sign Co-sign Detail Recorded Client Recorded Date Recorded By Document 11/05/24 08:09 DL [id number] 11/05/24 08:18 DL Document 11/12/24 08:09 DL [id number] 11/12/24 08:16 DL 11/05/24 11/12/24 08:09 08:09 Wound Center Nurse 1 #4 R 2nd toe -Current Size (cm) - Length 0.1 0.1 -Current Size (cm) - Width 0.1 0.1 -Current Size (cm) - Depth 0.1 0.1 -Total Square Cm 0.01 0.01 -Photo Taken Yes Yes -Exudate Amt None Present None Present -Wound Margin Flat & Intact Indistinct, Non -Visible -Granulation Amt Large (67-100%) Large (67-100%) -Granulation Quality [place] -Necrosis Amt Small (1-33%) None Present (0 %) -Necrotic Tissue Type Eschar -Structure Exposed N/A N/A -Texture (Destiny-wound Skin Appearance) Scarring Scarring -Moisture (Destiny-wound Skin Appearance) Dry/Scaly Dry/Scaly -Color (Destiny-wound Skin Appearance) No Abnormality No Abnormality -Temperature (Destiny-wound Skin No Abnormality No Abnormality Appearance) (Pt Warm) (Pt Warm) -Tenderness on Palpation (Destiny-wound No Skin Appearance) -Ulcer Cleansing Rinsed/ Soap and Water Irrigated with Saline -Foul Odor after Cleansing No -Anesthetic Used 5% Lidocaine 5% Lidocaine Gel,Cetacaine Gel Right Calf (cm) 41.7 Right Ankle (cm) 23.3 WC - Nurse 2 - General Ulcer CM Notes Start: 11/05/24 08:08 Freq: Status: Active Protocol: Activity Type Activity Date Activity User E-sign Co-sign Detail Recorded Client Recorded Date Recorded By Document 11/05/24 08:41 [facility] [id number] 11/05/24 08:43 [facility] Document 11/12/24 08:37 [facility] [id number] 11/12/24 08:38 [facility] 11/05/24 11/12/24 08:41 08:37 Wound Center Nurse 2 #4 R 2nd toe -Time 08:41 08:38 -Procedure Performed No No -Post Debridement (cm) - Length 0.1 0.1 -Post Debridement (cm) - Width 0.1 0.1 -Post Debridement (cm) - Depth 0.1 0.1 -Total Square (Post) (cm) 0.01 0.01 -Area of Debridement (cm) - Length 0.1 0.1 -Area of Debridement (cm) - Width 0.1 0.1 -Total Square (Area) (cm) 0.01 0.01 -Tunneling No -Undermining/Tunneling No -Circular Undermining No -Wound/Ulcer Outcome Not Healed -Bleeding Controlled with NA NA Pain Scale: 0-10 Numeric Is Patient Pain Free? Yes Yes WC - Nurse 3 - General Ulcer D/C NN Start: 11/05/24 08:08 Freq: Status: Active Protocol: Activity Type Activity Date Activity User E-sign Co-sign Detail Recorded Client Recorded Date Recorded By Document 11/05/24 08:58 [facility] [id number] 11/05/24 08:59 [facility] 11/05/24 08:58 Wound Care Center Nurse 3 #4 R 2nd toe -Ulcer Cleansing Rinsed/ Irrigated with Saline -Foul Odor after Cleansing No -Other Dressing bandaid Treatment Response Procedure Tolerated Well Pain Scale: 0-10 Numeric Is Patient Pain Free? Yes WC - Visit Discharge Discharge Condition Stable Ambulatory Status Wheelchair Transportation f Facility Type Phlebotomist Associate Care Facility Assessment/Plan Assessment/Plan (1) Non-pressure chronic ulcer of other part of right foot with fat layer expose d: CODE(S): L97.512 - Non-pressure chronic ulcer of other part of right foot with fat layer exposed (2) Neuropathy: CODE(S): G62.9 - Polyneuropathy, unspecified (3) Venous insufficiency (chronic) (peripheral): CODE(S): I87.2 - Venous insufficiency (chronic) (peripheral) (4) Edema, lower extremity: CODE(S): R60.0 - Localized edema PLAN: Plan Patient seen and evaluated Predebridement: 0.1 cm x 0.1 cm x 0.1 cm Ulceration is secondary to trauma during assisted transfer at her facility. Ulceration did not undergo debridement as noted in the clinical panel above. Postdebridement measurement 0.1 cm x 0.1 cm x 0.1 cm with healthy granular tissue. No signs of infection. EpiFix graft #6 applied to the ulceration base 10/22/24. Site integrated well. There is a newly epithelialized skin, however this is still friable at site. No signs of infection. Will continue to pad and protect with Band-Aid for next 10-14 days. Ulcerative site has improved with reduction in size versus previous visit and newly epithelializing skin which is nearing complete healing status. She is to continue to elevate lower extremities at all times of rest for edema control. Patient does have neuropathy and bilateral lower extremity edema secondary to previous back surgery and nonambulatory status. Patient does transport with the assistance of motorized wheelchair. Discussed continued protein intake to aid in wound healing. Nael supplementation/boost was also recommended to be continued She has been approved for advanced wound care product, EpiFix. Will continue applications. I did discuss today with her and her daughter possible debridement to the level of bone and removing any prominence of bone underlying her ulceration site as this may be a potential cause of reulceration in addition to her continued edema of the lower extremity. She states she will think about the procedure now that this has been discussed with family. Discussed signs and symptoms of infection with the patient and Onboarding Specialist reservations sales agent today. Educated them that if patient experiences increased redness about the ulcerative site that moves along the dorsal foot or up the leg, if she gets purulent drainage from the wound site, increasing foul odor from the wound site, or if she experiences fever greater than 101 degree accompanied by nausea, vomiting, chills that these are signs of a progressing infection and she should report to the ED to receive IV antibiotics and further evaluation. I have discussed potential risks of amputation secondary to depth of the wound and close proximity to bone. She is aware that if infection does set in the digit would likely need to be amputated at the corresponding metatarsal phalangeal joint. The following work up and care recommendations were made: Dressing: Pad and protect with Band-Aid for next 10-14 days. Wash: Wash with soap and water Tissue growth optimization: None Offload: Continue wearing surgical shoe to offload dorsal aspect of the right foot Vascular: LEAS performed June 2024 demonstrating no underlying arterial disease. Vascular status not impeding wound healing Edema: Continue wearing compression stockings and elevate lower extremities to aid in edema control Infection: No signs of infection Pain: No pain secondary to neuropathy related to prior back surgery Host factors: Chronic venous insufficiency, chronic bilateral lower extremity edema, nonambulatory status secondary to prior back surgery I answered all the patient's questions. To return to the wound healing center in 2 weeks or call sooner if the patient has any questions or concerns.
--- NOTE | 2024-11-13 11:55 | WC ---
PHOTO 11/12/24 RIGHT GREAT TOE
--- NOTE | 2024-11-13 11:58 | WC ---
PHOTO 11/12/24 RIGHT 2ND TOE
[2024-11-26 08:06] VITALS: BP 140/58; PULSE 53; RESP 15; TEMP 36.6
--- NOTE | 2024-11-26 08:43 | WC ---
[employer] sent with pt and a note to have them apply with next change. Pants to tight around leg to apply and patient wanted to wait.
--- NOTE | 2024-11-26 09:18 | PN.PCM_ITS ---
History of Present Illness Date of Service: 11/26/24 Chief Complaint: Ulceration dorsal second digit right foot History of Wound: This is a 79-year-old female who was referred to the wound care center for a nonhealing ulceration of the dorsal aspect of the second digit right foot. Patient states ulceration occurred after 2 aids at the [facility] facility transferred her utilizing a Jareth and bumped her toe against a refrigerator. States she has been going to the foot and ankle Center for cont inued care with Dr. Worley and they were applying Betadine daily for the last 8 weeks. Patient over that time has failed to progress in wound healing, but also states dressings have not been changed as instructed at her facility. She has followed with vascular surgery with LEAS performed in June 2024 demonstrating adequate perfusion with no evidence of arterial disease. Patient was referred to the wound care center for continued wound healing. She denies N/V/F/chills. Denies pain to the ulcerative site. Denies diabetes. 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 Denies further complaints. Subjective Subjective This 79-year-old female returns to the wound care center today for continued care of the dorsal ulceration to the second digit of the right foot. Accompanied by bowling pin setters installer from facility. She has neuropathy and has no sensation to the foot. Persistent swelling remains to lower extremities secondary to nonweight bearing/wheelchair bound status. States she is getting continued improvement following right hip fracture. Reports she is continuing to be careful to not bump the toe to reopen her wound, and feels it is healed. Denies constitutional symptoms. Denies further complaints. Objective Data Objective Data Vital Signs: Vital Signs Temp Pulse Resp BP O2 Flow Rate 97.8 F 53 L 15 140/58 H 2 11/26/24 08:06 11/26/24 08:06 11/26/24 08:06 11/26/24 08:06 10/31/24 00:44 Oxygen Flow Rate (L/min) 2 Physical Exam Const alert, oriented x3 and no apparent distress General Appearance: cooperative HEENT normocephalic Eyes General Eye: normal appearance of both eyes Neck General: normal visual inspection Lymph Lymphatic: no lymphadenopathy noted and no lymphedema noted Resp normal respiratory effort Cardio regular rate and regular rhythm Extremity no calf tenderness Extremity Narrative: Right lower extremity: Vascular: DP and PT pulses nonpalpable secondary to edema. CFT is less than 4 seconds to digits. Normal temperature gradient. Hair growth is absent to digits. Neurologic: Diminished sensation secondary to neuropathy post back surgery. Gross sensation intact. Motor function intact. Musculoskeletal: Muscle strength 4 of 5 secondary to prior surgery and nonambulatory status. No pain to palpation of calf. No pain to palpation about ulcerative site. Decreased range of motion of the ankle joint in dorsiflexion with knee extended without pain or crepitus. Decreased range of motion of the first MTPJ without pain or crepitus. Dermatologic: There is moderate lower extremity edema secondary to her prior back surgery. Skin turgor normal. Ulceration to the dorsal aspect of the second digit has healed. No signs of infection. Left lower extremity: Vascular: DP and PT pulses nonpalpable secondary to edema. CFT is less than 4 seconds to digits. Normal temperature gradient. Hair growth is absent to digits. Neurologic: Diminished sensation secondary to neuropathy post back surgery. Gross sensation intact. Motor function intact. Musculoskeletal: Muscle strength 4 of 5 secondary to prior surgery and nonamb ulatory status. No pain to palpation of calf. Decreased range of motion of the ankle joint in dorsiflexion with knee extended without pain or crepitus. Decreased range of motion of the first MTPJ without pain or crepitus. Dermatologic: There is moderate lower extremity edema secondary to her prior back surgery. Skin turgor normal. Skin is mildly xerotic but otherwise unremarkable. Skin no rashes or lesions noted and skin turgor normal Neuro moves all extremities Debridement Note Debridement Note No debridement was completed: No debridement was completed today Post-Debridement Measurements and Additional Note: Post-Debridement Measurements/Treatment - Nurse 1 - General Ulcer Assessment Start: 11/05/24 08:08 Freq: Status: Active Protocol: ADÁN.LOWEXT Activity Type Activity Date Activity User E-sign Co-sign Detail Recorded Client Recorded Date Recorded By Document 11/05/24 08:09 DL [id number] 11/05/24 08:18 DL Document 11/12/24 08:09 DL [id number] 11/12/24 08:16 DL Document 11/26/24 08:06 ML [id number] 11/26/24 08:16 ML 11/05/24 11/12/24 11/26/24 08:09 08:09 08:06 - Today's Visit Information Type of service Follow-up Visit Follow-up Visit Follow-up Visit (Physician/COMMUNICATION ANALYST (Physician/COMMUNICATION ANALYST (Physician/COMMUNICATION ANALYST ) ) ) Arrival Mode Wheelchair Wheelchair Wheelchair Transfer Assistance None None None Patient Identification Verified (Name & Yes Yes Yes ) Patient Requires Transmission-Based No No No Precautions Vital Signs Temperature (97.8 F-99.1 F) 97 F L 97.6 F L 97.8 F Temperature Source Temporal Temporal Temporal Pulse Rate (60-100) 57 L 55 L 53 L Pulse Location Monitor Monitor Monitor Respiratory Rate (12-18) 18 18 15 Respiratory rate source Observation Observation Observation Blood Pressure (90/60-120/80) 141/76 H 154/47 H 140/58 H Blood Pressure Mean (mm Hg) 97 82 85 Source Monitor Monitor Monitor Position Sitting Blood Pressure Location Right Arm History Since Last Visit- (Skip if this is Patient's initial visit) Have you changed medications since your No No No last visit? Any new allergies or adverse reactions No No No Had a fall/change in ADL's that may No No No increase risk of falls Signs or symptoms of abuse and/or No No No neglect since last visit Have you been in the hospital since your Yes No No last visit? Has dressing in place as prescribed Yes Yes Yes Has compression in place as prescribed Yes Yes N/A Has offloadiing in place as prescribed Yes Yes N/A Experienced any changes in pain level or No No No management Left Footwear Surgical Shoe Surgical Shoe with pressure with pressure relief insole relief insole Right Footwear Surgical Shoe Surgical Shoe with pressure with pressure relief insole relief insole Pain Scale: 0-10 Numeric Is Patient Pain Free? Yes Yes Yes WC - Nurse 1 - General Ulcer Measurement Start: 11/05/24 08:08 Freq: Status: Active Protocol: Activity Type Activity Date Activity User E-sign Co-sign Detail Recorded Client Recorded Date Recorded By Document 11/05/24 08:09 DL [id number] 11/05/24 08:18 DL Document 11/12/24 08:09 DL [id number] 11/12/24 08:16 DL Document 11/26/24 08:06 ML [id number] 11/26/24 08:16 ML 11/05/24 11/12/24 11/26/24 08:09 08:09 08:06 Wound Center Nurse 1 #4 R 2nd toe -Current Size (cm) - Length 0.1 0.1 0.1 -Current Size (cm) - Width 0.1 0.1 0.1 -Current Size (cm) - Depth 0.1 0.1 0.1 -Total Square Cm 0.01 0.01 0.01 -Photo Taken Yes Yes -Exudate Amt None Present None Present Small -Exudate Type Serosanguineous -Wound Margin Flat & Intact Indistinct, Non Distinct, -Visible Outline Attached -Granulation Amt Large (67-100%) Large (67-100%) None Present (0 %) -Granulation Quality [place] -Slough/Fibrin No -Necrosis Amt Small (1-33%) None Present (0 None Present (0 %) %) -Necrotic Tissue Type Eschar Adherent Slough -Structure Exposed N/A N/A -Texture (Destiny-wound Skin Appearance) Scarring Scarring Assessed -Moisture (Destiny-wound Skin Appearance) Dry/Scaly Dry/Scaly Assessed -Color (Destiny-wound Skin Appearance) No Abnormality No Abnormality Assessed -Temperature (Destiny-wound Skin No Abnormality No Abnormality No Abnormality Appearance) (Pt Warm) (Pt Warm) (Pt Warm) -Tenderness on Palpation (Destiny-wound No No Skin Appearance) -Ulcer Cleansing Rinsed/ Soap and Water Rinsed/ Irrigated with Irrigated with Saline Saline -Foul Odor after Cleansing No No -Anesthetic Used 5% Lidocaine 5% Lidocaine 5% Lidocaine Gel,Cetacaine Gel Gel Right Calf (cm) 41.7 Right Ankle (cm) 23.3 WC - Nurse 2 - General Ulcer CM Notes Start: 11/05/24 08:08 Freq: Status: Active Protocol: Activity Type Activity Date Activity User E-sign Co-sign Detail Recorded Client Recorded Date Recorded By Document 11/05/24 08:41 [facility] [id number] 11/05/24 08:43 BM Document 11/12/24 08:37 BM [id number] 11/12/24 08:38 BM Document 11/26/24 08:31 BM [id number] 11/26/24 08:31 BMF 11/05/24 11/12/24 11/26/24 08:41 08:37 08:31 Wound Center Nurse 2 #4 R 2nd toe -Time 08:41 08:38 08:31 -Procedure Performed No No No -Post Debridement (cm) - Length 0.1 0.1 0 -Post Debridement (cm) - Width 0.1 0.1 0 -Post Debridement (cm) - Depth 0.1 0.1 0 -Total Square (Post) (cm) 0.01 0.01 0 -Area of Debridement (cm) - Length 0.1 0.1 0 -Area of Debridement (cm) - Width 0.1 0.1 0 -Total Square (Area) (cm) 0.01 0.01 0 -Tunneling No -Undermining/Tunneling No -Circular Undermining No -Wound/Ulcer Outcome Not Healed Healed- Epithelialized -Bleeding Controlled with NA NA NA Pain Scale: 0-10 Numeric Is Patient Pain Free? Yes Yes Yes - Nurse 3 - General Ulcer D/C NN Start: 11/05/24 08:08 Freq: Status: Active Protocol: Activity Type Activity Date Activity User E-sign Co-sign Detail Recorded Client Recorded Date Recorded By Document 11/05/24 08:58 [facility] [id number] 11/05/24 08:59 [facility] Document 11/12/24 09:00 DS [id number] 11/13/24 16:50 DS Document 11/26/24 08:42 ML [id number] 11/26/24 08:44 ML 11/05/24 11/12/24 11/26/24 08:58 09:00 08:42 Wound Care Center Nurse 3 #4 R 2nd toe -Ulcer Cleansing Rinsed/ Irrigated with Saline -Foul Odor after Cleansing No -Other Dressing bandaid -Primary Dressing Covered/Secured with Dry Gauze, Secured with Tape BLE -Tubular Bandage Double Layer Double Layer -Size of Tubigrip Used Size E Size E -Size E ($) 2 2 Treatment Response Procedure Tolerated Well Pain Scale: 0-10 Numeric Is Patient Pain Free? Yes Yes Yes WC - Visit Discharge Discharge Condition Stable Stable Ambulatory Status Wheelchair Transportation ecf Facility Type Intermediate Care Facility 11/26/24 08:43 Wound Center by Milagro Hughes sent with pt and a note to have them apply with next change. Pants to tight around leg to apply and patient wanted to wait. Initialized on 11/26/24 08:43 - END OF NOTE Assessment/Plan Assessment/Plan (1) Non-pressure chronic ulcer of other part of right foot with fat layer exposed: CODE(S): L97.512 - Non-pressure chronic ulcer of other part of right foot with fat layer exposed (2) Neuropathy: CODE(S): G62.9 - Polyneuropathy, unspecified (3) Venous insufficiency (chronic) (peripheral): CODE(S): I87.2 - Venous insufficiency (chronic) (peripheral) (4) Edema, lower extremity: CODE(S): R60.0 - Localized edema PLAN: Plan Patient seen and evaluated Predebridement: healed Ulceration is secondary to trauma during assisted transfer at her facility. Ulceration did not undergo debridement as noted in the clinical panel above. Postdebridement measurement status is healed. No signs of infection. EpiFix graft #6 applied to the ulceration base 10/22/24. Site integrated well and has fully healed at this time. Ulcerative site has improved with healed status versus previous visit. She is to continue to elevate lower extremities at all times of rest for edema control. Patient does have neuropathy and bilateral lower extremity edema secondary to previous back surgery and nonambulatory status. Patient does transport with the assistance of motorized wheelchair. Discussed continued protein intake overall for health and strength. Nael supplementation/boost was also recommended to be continued I did discuss on 11/12/24 with her and her daughter possible debridement to the level of bone and removing any prominence of bone underlying her ulceration site as this may be a potential cause of reulceration in addition to her continued edema of the lower extremity. She states she will think about the procedure now that this has been discussed with family. She is understanding as of today, 11/26/24 that if site does return ultimately procedure to remove a portion of bone would be recommended to prevent continued recidivism. Discussed signs and symptoms of infection with the patient and Director Insurance bowling pin setters installer today. Educated them that if patient experiences increased redness a bout the ulcerative site that moves along the dorsal foot or up the leg, if she gets purulent drainage from the wound site, increasing foul odor from the wound site, or if she experiences fever greater than 101 degree accompanied by nausea, vomiting, chills that these are signs of a progressing infection and she should report to the ED to receive IV antibiotics and further evaluation. I have disc ussed potential risks of amputation secondary to depth of the wound and close proximity to bone. She is aware that if infection does set in the digit would likely need to be amputated at the corresponding metatarsal phalangeal joint. The following work up and care recommendations were made: Dressing: None Wash: Wash with soap and water Tissue growth optimization: None Offload: May return to regular shoe gear. May utilize right foot now to stand and assist in pivot transfer Vascular: LEAS performed June 2024 demonstrating no underlying arterial disease. 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 I answered all the patient's questions. To return to the wound healing center as needed or call sooner if the patient has any questions or concerns.
--- NOTE | 2024-11-27 08:50 | WC ---
PHOTO 11/26/24 RIGHT 2ND TOE
== END 2024-11-30 23:59 | disposition home or self-care (01) ==
LOC: WC 08:00
PROVIDERS: PCP Family Medicine; Referring Provider Podiatrist; Visit Provider Student in an Organized Health Care Education/Training Program
DX: L97.512 Non-pressure chronic ulcer of other part of right foot with fat layer exposed (principal); G62.9 Polyneuropathy, unspecified; R60.0 Localized edema; I87.2 Venous insufficiency (chronic) (peripheral); Z99.3 Dependence on wheelchair
CPT/HCPCS: 99212; 99213; G0463

== ENCOUNTER → 2025-01-14 | Outpatient (CLI) | payer MEDICARE, OTHER, MEDICAID, SELFPAY ==
--- NOTE | 2025-01-14 10:58 | NM_ITS ---
PROCEDURE: GASTRIC EMPTYING STUDY 01/14/2025 REASON FOR EXAM: BLOATING COMPARISON: None. TECHNIQUE: The patient ingested a semi-solid meal of oatmeal. There was no vomiting postprandially. Anterior and posterior planar images of the upper abdomen were obtained for a total of 60 minutes. Regions of interest were drawn, and a geometric mean was used to calculate a [id number]. Medications taken in the past 24 hours that may affect gastric emptying: None RADIOPHARMACEUTICAL: 1.2 mCi technetium 99 M sulfur colloid, orally with oatmeal. FINDINGS: Images suggest the presence hiatal hernia. Gastric emptying half-time by linear fit estimated at 37.6 minutes. At 30 minutes, gastric emptying calculated at 29%, 61% at 48 minutes, and 68% at 60 minutes. NM/Gastric Emptying Study IMPRESSION: 1. Normal semi solid phase gastric emptying. 2. Suggestion of hiatal hernia on images obtained. Reading Location: [place] [id number]
== END | disposition home or self-care (01) ==
LOC: NM 10:54
PROVIDERS: PCP Family Medicine; Referring Provider Student in an Organized Health Care Education/Training Program; Visit Provider Student in an Organized Health Care Education/Training Program
DX: R14.0 Abdominal distension (gaseous) (principal)
CPT/HCPCS: 78264; A9541

== ENCOUNTER 2025-02-03 22:40 | Emergency (ER) | payer MEDICARE, OTHER, MEDICAID, SELFPAY ==
--- NOTE | 2025-02-03 00:15 | RAD_ITS ---
PROCEDURE: CHEST 1 VIEW (PORTABLE) 02/04/2025 REASON FOR EXAM: DYSPNEA TECHNIQUE: Frontal view of the chest. COMPARISON: Chest radiograph 09/21/2023 FINDINGS: Patient positioning limits this evaluation. There is streaky opacity at the lung bases. The costophrenic angles are not well visualized. Cardiomediastinal silhouette is not well evaluated. Cervical spine hardware is partially imaged. RAD/Chest 1 View (Portable) IMPRESSION: Limited exam due to patient positioning. Streaky bibasilar opacities may repre sent atelectasis, edema, and/or infection. Reading Location: [facility]
[2025-02-03 22:40] VITALS: BP 157/75; PULSE 78; RESP 20; TEMP 36.6; O2SAT 95; BMI 50.7
[2025-02-03 22:43] VITALS: BP 157/75; PULSE 76; RESP 20; TEMP 36.6; O2SAT 95
--- OUTSIDE RECORDS SUMMARY | 2025-02-03 23:41 | XMS RPT_ITS | CCD ---
Author Organization [facility] Care Team Providers Care Frequency Checker Name Role Phone Tanna Jones Unavailable Christopher Driver Unavailable Unavailable Anais Mata LPN Unavailable Wolf Berry Primary Care Provider UnavailWolf Flores Referring Provider Unavailable Dr. Luiz Land Attending Provider [phone] Wolf Berry Primary Care Provider UnavailDr. Luiz Eldridge Attending Provider [phone] Luiz Land Referring Provider [phone] Wolf Berry Referring Provider Unavailable [facility] FRONT OFFICE SPECIALIST, FRONT OFFICE SPECIALIST-C Harpreet Lemus Attending Provider Dr. Vikas Ray Emergency Provider Dr. Alfred Watson Admit Provider Dr. Alfred Watson Attending Provider Dr. Alfred Watson Other Provider Dr. Luiz Ji Attending Provider Dr. Luiz Ji Other Provider Wolf Bal Primary Care Provider Unavaila ble Dr. Vikas Ray Emergency Provider Dr. Alfred Watsonit Provider Dr. Alfred Watson Attending Provider Dr. Alfred Watson Other Provider Dr. Luiz Ji Attending Provider Dr. Luiz Ji Other Provider Dr. Wolf Berry Primary Care Provider Dr. Nancy Alcocer Emergency Provider Dr. Luna Dobbs Admit Provider Unavailabl e Dobbs, Dr. Baig Other Provider Unavailabl e Dr. Germain Pettit Attending Provider Dr. Germain Pettit Other Provider Dr. Darryl Darden Attending Provider Papito, Dr. Mary Del Real Attending Provider Papito, Dr. Mary Del Real Other Provider Jamal GOODMAN, Dr. Bloom Primary Care Provider Magdaleno DPM, Dr. Diop Attending Provider Meir URIBE, Dr. Montoya Referring Provider Alejandra CEBALLOS, Dr. Perla Referring Provider Alejandra CEBALLOS, Dr. Perla Emergency Provider Valerie GOODMAN, Dr. Kay Alvarez Admit Provider Valerie GOODMAN, Dr. Kay Alvarez Other Provider Magdaleno DPM, Dr. Diop Other Provider Dr. Alfred Watson DO Attending Provider Dr. Alfred Watson DO Other Provider Luna Rogers Admitting Unavailable Eben Lamb Attending Unavailable Wolf Berry Primary Care Unavailable Luna Rogers Consulting Unavailable Eben Lamb Consulting Unavailable Estela Terry Attending Unavailable Darryl Dawson Consulting Unavailable Paige Lynne Consulting Unavailable Estela Terry Consulting Unavailable Pan Roberts Referring Unavailable Kay Padilla Admitting Unavailable Kay Padilla Attending Unavailable Kay Padilla Consulting Unavailable Wolf Berry Primary Care Unavailable Alfred Watson Attending Unavailable Jadon Dolan Consulting Unavailable Alfred Watson Consulting Unavailable Choco FRONT OFFICE SPECIALIST, Saloni Referring Unavailable Saloni Wilhelm NP Attending Unavailable Berry, Wolf Primary Care Unavailable Wunning, Jan Referring Unavailable Berry, Wolf Primary Care Unavailable Jadon Dolan Attending Unavailable AtaFrances ga Referring Unavailable Frances Roman Attending Unavailable Berry, Wolf Primary Care Unavailable Wurachele, Jan Attending Unavailable Berry, Wolf Primary Care Unavailable Luna Rogers Attending Unavailable Meir, Jan Referring Unavailable Luiz Land Attending Unavailable Berry, Wolf Primary Care Unavailable Wunning, Jan Attending Unavailable Wunning, Jan Referring Unavailable Berry, Wlof Primary Care Unavailable Jadon Dolan Attending Unavailable Raisaing, Jan Referring Unavailable Berry, Wolf Primary Care Unavailable Jadon Dolan Attending Unavailable Raisaing, Jan Referring Unavailable Berry, Wolf Primary Care Unavailable Alfred Watson Attending Unavailable Pan Roberts Referring Unavailable Jadon Dolan Consulting Unavailable Kay Padilla Admitting Unavailable Berry, Wolf Primary Care Unavailable Kay Padilla Consulting Unavailable Luna Rogers Admitting Unavailable Estela Terry Attending Unavailable Berry, Wolf Primary Care Unavailable Luna Rogers Consulting Unavailable Zainab, Eben Consulting Unavailable Darryl Dawson Consulting Unavailable Paige Lynne Consulting Unavailable Pepe Goode Attending Unavailable Berry, Wolf Primary Care Unavailable Jadon Dolan Attending Unavailable Wunning, Jan Referring Unavailable Berry, Wolf Primary Care Unavailable Jadon Dolan Attending Unavailable Filemonnning, Jan Referring Unavailable Berry, Wolf Primary Care Unavailable Berry, Wolf Primary Care Unavailable Berry, Wolf Referring Unavailable Berry, Wolf Attending Unavailable Jan Worley Referring Unavailable Jan Worley Attending Unavailable Berry, Wolf Primary Care Unavailable Berry, Wolf Primary Care Unavailable Harpreet Gould NP Attending Unavailable Berry, Wolf Referring Unavailable AtanasovFrances Attending Unavailable Berry, Wolf Primary Care Unavailable Berry, Wolf Referring Unavailable AtanasovFrances Attending Unavailable Berry, Wolf Primary Care Unavailable Berry, Wolf Referring Unavailable Allergies Allergy Classification Reported Allergen(s) Allergy Type Date of Onset Reaction(s) Facility (3 sources) Nitrofurantoin Drug Allergy 01-04-20 11 Flu like symptoms [employer] Work Phone: (7 sources) Amoxicillin Drug Allergy 06-14-20 22 Nausea/Vom/Destinee rrhea [facility] (7 sources) Clavulanate Drug Allergy 06-14-20 22 Nausea/Vom/Destinee [facility] (7 sources) Morphine Drug Allergy 06-14-20 22 unknown [facility] (7 sources) Sulfamethoxazole Drug Allergy 06-14-20 22 Nausea/Vom/Destinee [facility] (7 sources) Trimethoprim Drug Allergy 06-14-20 22 Nausea/Vom/Destinee [facility] (8 sources) nitrofurantoin macrocrystalline; Translations: [nitrofurantoin macrocrystalline] Propensity to adverse reactions 06-14-20 22 Vomiting [facility] (1 source) Amoxicillin Drug Allergy 10-25-19 [facility] (1 source) Clavulanate Drug Allergy 10-25-19 [facility] (1 source) Morphine Drug Allergy 10-25-19 [facility] (1 source) Sulfamethoxazole Drug Allergy 10-25-19 [facility] (1 source) Trimethoprim Drug Allergy 10-25-19 [facility] Medications Current Medications Medication Drug Class(es) Dates Sig (Normalized) Sig (Original) acetaminophen 325 mg oral tablet (19 sources) Start: 10-27-2024 take 2 tablets by mouth every four hours as needed for pain Acetaminophen 325 mg Tablet Active 650 mg PO EVERY 4 HOURS NEEDED as needed for Fever, pain 1-10/10 0 October 27, 2024 1:00am Start: 09-20-2022 End: 10-27-2024 take 1 tablet by mouth every six hours as needed for pain Acetaminophen 500 mg Tablet Discontinued 500 mg PO EVERY 6 HOURS as needed for Pain September 20, 2022 1:00am October 27, 2024 1:48pm Start: 08-15-2019 End: 02-13-2022 Acetaminophen 325 MG tablet Discontinued 650 mg PO EVERY 6 HOURS NEEDED as needed for Pain Score 1-10/Temp > 100.7 F August 15, 2019 1:00am February 13, 2022 2:10pm Start: 08-15-2019 End: 02-13-2022 take 650 mg by mouth every six hours as needed Acetaminophen Discontinued 650 MG PO EVERY 6 HOURS NEEDED August 15, 2019 12:00am February 13, 2022 1:10pm Start: 01-03-2011 TYLENOL 325 MG TABS as directed ACETAMINOPHEN [id number] Nahid Sotelo MD albuterol 0.83 mg/ml inhalation solution (20 sources) beta2-Adrenergic Agonist Start: 10-27-2024 take 2.5 mg by inhalation every two hours as needed for dyspnea Albuterol Sulfate 2.5 mg /3 mL (0.083 %) Solution For Nebulization Active 2.5 mg INHALATION EVERY 2 HOURS NEEDED as needed for Dyspnea, wheezing 0 October 27, 2024 1:00am Start: 10-25-2024 Albuterol Sulf ate 90 mcg/actuation aerosol powdr breath activated Active 2 NMA INHALATION Q4H October 25, 2024 1:00am Start: 09-20-2022 End: 10-27-2024 take 2.5 mg by inhalation every four hours as needed for wheezing Albuterol Sulfate 2.5 mg /3 mL (0.083 %) Solution For Nebulization Discontinued 2.5 mg INHALATION Q4H as needed for SOB/WHEEZING September 20, 2022 1:00am October 27, 2024 1:49pm Start: 08-15-2022 End: 10-25-2024 Albuterol Sulfate 90 mcg/act uation HFA aerosol inhaler Discontinued 2 NMA INHALATION Q4H as needed for SOB/WHEEZING August 15, 2022 1:00am October 26, 2024 12:48am Start: 08-15-2022 Albuterol Sulf ate Active 2 INH INHALATION Q4H August 15, 2022 12:00am Start: 08-15-2022 Albuterol Sulf ate Active 1 INH INHALATION ONCE August 15, 2022 12:00am Start: 02-13-2022 End: 06-14-2022 Albuterol Sulfate 90 mcg/act uation HFA aerosol inhaler Discontinued 2 NMA INHALATION Q4H as needed February 13, 2022 12:00am June 14, 2022 1:52pm Start: 02-13-2022 End: 06-14-2022 take 1 puff(s) by inhalation every four hours Albuterol Sulfate Discontinued 2 PUFF INHALATION Q4H February 12, 2022 11:00pm June 14, 2022 12:52pm Start: 06-07-2020 End: 02-13-2022 take 2.5 mg by inhalation every four hours as needed Albuterol Sulfate 2.5 mg /3 mL (0.083 %) solution for nebulization Discontinued 2.5 mg INHALATION Q4H as needed June 07, 2020 12:00am February 13, 2022 1:56pm bisacodyl 10 mg rectal suppository (8 sources) Stimulant Laxative Start: 03-14-2024 Bisacodyl 1 0 mg suppository Active 10 mg RC DAILY as needed for constipation March 14, 2024 12:00am Start: 02-13-2022 End: 06-14-2022 Bisacodyl 10 mg suppository Discontinued 10 mg RC DAILY as needed February 13, 2022 12:00am June 14, 2022 1:41pm busPIRone hydrochloride 5 mg oral tablet (20 sources) Start: 02-13-2022 End: 03-14-2023 take 1 tablet by mouth three times daily Buspirone 5 mg tablet Active 5 mg PO THREE TIMES A DAY March 14, 2023 10:32am Start: 02-13-2022 End: 03-12-2024 take 1 tablet by mouth once daily Buspirone 5 mg tablet Discontinued 5 mg PO DAILY February 13, 2022 12:00am March 12, 2024 10:56am Start: 02-13-2022 take 2.5 mg by mouth once larisa y Buspirone Active 2.5 MG PO DAILY February 13, 2022 12:00am Start: 08-03-2021 End: 02-13-2022 take 1 tablet by mouth twice daily Buspirone 5 mg tablet Discontinued 5 mg PO TWICE A DAY August 03, 2021 1:00am February 13, 2022 2:11pm cholecalciferol 0.1 mg oral tablet (13 sources) Vitamin D Start: 02-13-2022 take 1 tablet by mouth once daily Cholecalciferol (Vitamin D3) 100 mcg (4,000 unit) tablet Active 100 ug PO DAILY February 13, 2022 12:00am Start: 05-21-2012 End: 12-03-2014 take 1 tablet by mouth once daily VITAMIN D 2000 UNIT TABS One tablet by mouth daily CHOLECALCIFEROL [id number] María Diamond RN docusate sodium 50 mg / sennosides, halfway 8.6 mg oral capsule (20 sources) Start: 08-15-2022 take 1 tablet by mouth twice daily Sennosides-Docusate Sodium (Senna Plus) 8.6-50 mg capsule Active 1 TAB-CAP PO TWICE A DAY August 15, 2022 12:00am Start: 02-13-2022 Sennosides-Doc usate Sodium 8.6-50 mg tablet Active 1 {tbl} PO TWICE A DAY as needed for CONSTIPATION February 13, 2022 2:08pm Start: 02-13-2022 take 1 tablet by ahmet th twice daily Sennosides-Docusate Sodium Active 1 TABLET PO TWICE A DAY February 13, 2022 1:08pm Start: 04-12-2020 End: 02-13-2022 Sennosides-Docusate Sodium 1 EACH tablet Discontinued 1 {tbl} PO DAILY April 12, 2020 12:00am February 13, 2022 2:11pm Start: 04-12-2020 End: 02-13-2022 take 1 tablet by mouth once daily Sennosides-Docusate Sodium Discontinued 1 TABLET PO DAILY April 11, 2020 11:00pm February 13, 2022 1:11pm Start: 06-03-2013 End: 09-10-2013 take 1 tablet by mouth twice daily Sennosides-Docusate Sodium (Stool Softener-Stimulant Laxat) 1 TABLET tablet Discontinued 1 {tbl} PO TWICE A DAY 60 June 19, 2013 12:00am June 19, 2013 3:01pm estradiol 0.1 mg/ml vaginal cream (15 sources) Estrogen Start: 03-14-2024 Estradiol 0.01 % (0.1 mg/gram) cream Active 1 NMA VAGINAL .COMPLEX March 14, 2024 12:00am 1 appful vaginally; 1 appful vaginally EVERY SAT,SAT,SAT; Start: 02-13-2022 End: 03-12-2024 Estradiol 0.01 % (0.1 mg/gra m) cream Discontinued 1 NMA VAGINAL MOWEFR February 13, 2022 12:00am March 12, 2024 10:58am Start: 02-13-2022 Estradiol Acti ve 1 APPFUL VAGINAL MOWEFR February 12, 2022 11:00pm Start: 06-01-2013 End: 06-19-2013 take 1 tablet by mouth once daily Estradiol (Estrace) 0.5 MG tablet Discontinued 0.5 mg PO DAILY June 01, 2013 12:00am June 19, 2013 2:42pm 30 actuat fluticasone furoate 0.1 mg/actuat / vilanterol 0.025 mg/actuat dry powder inhaler (7 sources) Corticosteroid, beta2-Adrenergic Agonist Start: 08-03-2021 Fluticasone Furoate-Vilanterol (Breo Ellipta) 100-25 mcg/dose blister with device Active 1 NMA INHALATION DAILY August 03, 2021 1:00am Start: 08-03-2021 Fluticasone Fu roate-Vilanterol (Breo Ellipta) 100-25 mcg/dose blister with device Active 1 INH INHALATION DAILY August 03, 2021 12:00am gabapentin 300 mg oral capsule (20 sources) Anti-epileptic Agent Start: 10-27-2024 take 1 capsule by mouth three times daily Gabapentin 300 mg Capsule Active 300 mg PO THREE TIMES A DAY 0 October 27, 2024 1:00am Start: 10-25-2024 End: 10-27-2024 take 2 capsules by mouth three times daily Gabapentin 100 mg capsule Discontinued 200 mg PO THREE TIMES A DAY October 25, 2024 1:00am October 27, 2024 1:50pm Start: 04-12-2020 End: 10-25-2024 take 1 capsule by mouth three times daily Gabapentin 300 mg capsule Discontinued 300 mg PO THREE TIMES A DAY August 03, 2021 2:55pm October 26, 2024 12:45am Start: 08-15-2019 End: 01-03-2021 take 1 capsule by mouth three times daily at mealtime Gabapentin 100 MG capsule Discontinued 100 mg PO 3 TIMES DAILY WITH MEALS April 12, 2020 1:55pm January 03, 2021 10:38am Start: 04-21-2019 End: 08-15-2019 take 2 capsules by mouth three times daily at mealtime Gabapentin 100 MG capsule Discontinued 200 mg PO 3 TIMES DAILY WITH MEALS April 21, 2019 12:00am August 15, 2019 12:48pm Start: 04-21-2019 End: 08-15-2019 take 200 mg by mouth three times daily at mealtime Gabapentin Discontinued 200 MG PO 3 TIMES DAILY WITH MEALS April 20, 2019 11:00pm August 15, 2019 11:48am Start: 12-03-2014 take 1 tablet by ahmet three times daily GABAPENTIN 300 MG CAPS One tablet by mouth three times daily GABAPENTIN [id number] Nahid Sotelo MD Start: 12-03-2014 take 2 tablets by mo [facility] twice daily GABAPENTIN 300 MG CAPS Two tablets by mouth twice daily GABAPENTIN [id number] Jackie Pathak PA-C Start: 06-03-2013 End: 06-19-2013 take 1 capsule by mouth at bedtime Gabapentin 300 MG capsule Discontinued 300 mg PO AT BEDTIME June 03, 2013 12:00am June 19, 2013 2:43pm Start: 06-01-2013 End: 09-10-2013 take 1 capsule by mouth twice daily Gabapentin 300 MG capsule Discontinued 300 mg PO TWICE A DAY 60 June 19, 2013 12:00am September 10, 2013 4:11pm guaiFENesin 20 mg/ml oral solution (5 sources) Start: 09-20-2022 take 200 mg by mouth every six hours as needed for cough Guaifenesin (Siltussin Sa) 100 mg/5 mL Liquid Active 200 mg PO EVERY 6 HOURS as needed for COUGH/SORE THROAT September 20, 2022 1:00am hydrocortisone 10 mg/ml topical cream (5 sources) Corticosteroid Start: 09-21-2022 Hydrocortisone (Preparation H Hydrocortisone) 1 % Cream Active 1 NMA TOPICAL THREE TIMES A DAY as needed for Hemorrhoids September 21, 2022 1:00am Lactobacillus Combination No.9 (Adult 50 Plus Probiotic) 4 billion cell capsule (2 sources) Start: 02-13-2022 take 4 capsules by mouth once daily Lactobacillus Combination No.9 (Adult 50 Plus Probiotic) 4 billion cell capsule Active 4000 MMU CELLS PO DAILY February 12, 2022 11:00pm administer with a meal Start: 02-13-2022 take 4 capsules by m out once daily Lactobacillus Combination No.9 (Adult 50 Plus Probiotic) 4 billion cell capsule Active 4000 MMU CELLS PO DAILY February 13, 2022 12:00am administer with a meal Magnesium Hydroxide (8 sources) Start: 03-14-2024 take 1 mL by mouth o nce daily as needed for constipation Magnesium Hydroxide (Dulcolax (Magnesium Hydroxide)) 400 mg/5 mL suspension Active 30 mL PO DAILY as needed for constipation March 14, 2024 12:00am Start: 02-13-2022 End: 06-14-2022 take 1 mL by mouth once daily as needed Magnesium Hydroxide 400 mg/5 mL suspension Discontinued 30 mL PO DAILY as needed February 13, 2022 12:00am June 14, 2022 1:50pm Start: 02-13-2022 End: 06-14-2022 take 1 mL by mouth once daily Magnesium Hydroxide Disc ontinued 30 ML PO DAILY February 12, 2022 11:00pm June 14, 2022 12:50pm melatonin 5 mg oral tablet (6 sources) Start: 09-20-2022 take 1 tablet by mouth at bedtime Melatonin 5 mg Tablet Active 5 mg PO AT BEDTIME September 20, 2022 1:00am Start: 08-15-2022 take 1 mg by mouth once daily Melatonin Active MG PO DAILY August 15, 2022 12:00am menthol 0.04 mg/mg topical gel (3 sources) Start: 09-21-2023 Menthol (Biofr eeze (Menthol)) 4 % gel Active 1 NMA TOPICAL TWICE A DAY as needed for pain September 21, 2023 1:00am apply to shoulder and lower back Menthol / Zinc Oxide (1 source) Start: 10-27-2024 Menthol-Zinc O xide (Calmoseptine) 0.44-20.6 % Ointment Active 1 NMA TOPICAL 4 TIMES DAILY 0 October 27, 2024 1:00am Please contact the information source for Protocol details. methenamine hippurate 1000 mg oral tablet (14 sources) Start: 08-14-2019 End: 04-12-2020 take 1 tablet by mouth twice daily for urinary tract infection Methenamine Hippurate 1 GM tablet Active 1 g PO TWICE A DAY April 12, 2020 1:55pm this can be used ongoing for prevention of uti. 24 hr metoprolol succinate 50 mg extended release oral tablet (20 sources) beta-Adrenergic Greg Start: 06-07-2020 take 1 tablet by mouth once daily Metoprolol Succinate 50 mg tablet extended release 24 hr Active 50 mg PO DAILY June 07, 2020 12:00am Start: 06-03-2013 End: 06-19-2013 take 1 tablet by mouth twice daily Metoprolol Tartrate 25 MG tablet Discontinued 25 mg PO TWICE A DAY June 03, 2013 12:00am June 19, 2013 2:43pm Start: 06-01-2013 End: 06-19-2013 Metoprolol Tartrate 25 MG ta blet Discontinued 12.5 mg PO TWICE A DAY 60 June 03, 2013 12:00am June 19, 2013 2:43pm Start: 06-01-2013 End: 06-19-2013 take 12.5 mg by mouth twice daily Metoprolol Tartrate Discontinued 12.5 MG PO TWICE A DAY 60 June 02, 2013 11:00pm June 19, 2013 1:43pm Start: 05-21-2012 End: 06-07-2020 take 1 tablet by mouth twice daily Metoprolol Tartrate 50 MG tablet Discontinued 50 mg PO TWICE A DAY June 10, 2017 4:29pm June 07, 2020 2:41pm Start: 01-03-2011 take 1 tablet by ahmet th once daily TOPROL XL 50 MG [id number] One tablet by mouth daily METOPROLOL SUCCINATE [id number] Camille Siddiqi Afldtcoq-Sve-So-Lycopen-Lute in (Centrum Silver) 0.4 mg-300 mcg- 250 mcg tablet (7 sources) Start: 06-14-2022 take 1 tablet by mouth once daily Wkzwdzij-Kxr-Vd-Lycopen-Lutein (Centrum Silver) 0.4 mg-300 mcg- 250 mcg tablet Active 1 {tbl} PO DAILY June 14, 2022 12:00am Start: 06-14-2022 take 1 tablet by ahmet th once daily Eicfyili-One-Hp-Lycopen-Lutein (Centrum Silver) 0.4 mg-300 mcg- 250 mcg tablet Active 1 TABLET PO DAILY June 13, 2022 11:00pm Start: 06-14-2022 take 1 tablet by ahmet th once daily Rbneqivy-Ilh-Mh-Lycopen-Lutein (Centrum Silver) 0.4 mg-300 mcg- 250 mcg tablet Active 1 TABLET PO DAILY June 14, 2022 12:00am Multivitamin preparation (1 source) Start: 08-15-2022 take 1 tablet by mouth once daily Multivitamin Active 1 TABLET PO DAILY August 15, 2022 12:00am Naloxone (6 sources) Opioid Antagonist Start: 02-13-2022 Naloxone Act lorelei 1 SPRAY INTRANASAL every 2 to 3 minutes February 12, 2022 11:00pm spray 1 dose into ONE nostril; alternate nostrils w each dose until help arrives Start: 02-13-2022 Naloxone Activ e 1 SPRAY INTRANASAL every 2 to 3 minutes February 13, 2022 12:00am spray 1 dose into ONE nostril; alternate nostrils w each dose until help arrives ondansetron 4 mg oral tablet (14 sources) Serotonin-3 Receptor Antagonist Start: 02-13-2022 take 1 tablet by mouth every eight hours as needed for nausea Ondansetron Hcl 4 mg tablet Active 4 mg PO Q8H as needed for Nausea February 13, 2022 2:04pm Start: 04-12-2020 End: 02-13-2022 take 1 tablet by mouth every four hours as needed for nausea Ondansetron Hcl 4 MG tablet Discontinued 4 mg PO EVERY 4 HOURS NEEDED as needed for Nausea April 12, 2020 12:00am February 13, 2022 2:11pm oxyCODONE hydrochloride 5 mg oral tablet (20 sources) Opioid Agonist Start: 10-27-2024 take 5-10 mg by mouth every four hours as needed for pain Oxycodone 5 mg Tablet Active 5 - 10 mg PO EVERY 4 HOURS NEEDED as needed for Pain Score 4-10 15 5 October 27, 2024 Start: 06-19-2013 End: 06-19-2013 take 3 tablets by mouth every six hours as needed for pain Oxycodone 5 MG tablet Discontinued 15 mg PO EVERY 6 HOURS NEEDED as needed for Severe Pain June 19, 2013 2:56pm June 19, 2013 3:15pm Start: 06-19-2013 End: 06-19-2013 take 15 mg by mouth every six hours as needed Oxycodone Discontinued 15 MG PO EVERY 6 HOURS NEEDED June 19, 2013 1:56pm June 19, 2013 2:15pm Start: 06-01-2013 End: 06-19-2013 take 3 tablets by mouth every four hours as needed for pain Oxycodone 5 MG tablet Discontinued 15 mg PO Q4H as needed for Severe Pain 60 June 03, 2013 12:00am June 19, 2013 2:56pm Start: 06-01-2013 End: 06-19-2013 take 15 mg by mouth every four hours Oxycodone Discontinued 15 MG PO Q4H 60 June 02, 2013 11:00pm June 19, 2013 1:56pm polyethylene glycol 3350 13151 mg powder for oral solution (20 sources) Osmotic Laxative Start: 04-21-2019 End: 03-12-2024 Polyethylene Glycol 3350 (Clearlax) 17 gram/dose powder Active 17 g PO DAILY as needed for constipation September 21, 2023 1:00am Start: 10-06-2015 End: 01-24-2016 take 17 g by mouth once daily Polyethylene Glycol 3350 17 GM Packet Discontinued 17 g PO DAILY October 06, 2015 1:00am January 24, 2016 2:27pm Start: 06-01-2013 End: 09-10-2013 take 17 g by mouth once daily Polyethylene Glycol 3350 17 GM Packet Discontinued 17 g PO DAILY June 03, 2013 12:00am June 19, 2013 2:46pm pravastatin sodium 40 mg oral tablet (20 sources) HMG-CoA Reductase Inhibitor Start: 01-17-2018 take 1 tablet by mouth at bedtime Pravastatin 40 mg tablet Active 40 mg PO AT BEDTIME January 17, 2018 12:00am Start: 04-11-2015 take 1 tablet by ahmet th at bedtime PRAVASTATIN SODIUM 40 MG TABS One tablet by mouth at bedtime. PRAVASTATIN SODIUM [id number] Jackie Pathak PA-C Start: 12-03-2014 End: 12-03-2014 take 1 tablet by mouth once daily PRAVACHOL 10 MG TABS One tablet by mouth daily PRAVASTATIN SODIUM Nahid Sotelo MD Start: 06-03-2013 End: 01-17-2018 take 2 tablets by mouth at bedtime Pravastatin 20 MG tablet Discontinued 40 mg PO AT BEDTIME June 10, 2017 4:29pm January 17, 2018 1:54pm Start: 06-03-2013 End: 01-17-2018 take 40 mg by mouth at bedtime Pravastatin Discontinue d 40 MG PO AT BEDTIME June 10, 2017 3:29pm January 17, 2018 12:54pm Start: 06-01-2013 End: 06-19-2013 take 1 tablet by mouth at bedtime Pravastatin (Pravachol) 40 MG tablet Discontinued 40 mg PO AT BEDTIME June 01, 2013 12:00am June 19, 2013 3:02pm sertraline 100 mg oral tablet (17 sources) Serotonin Reuptake Inhibitor Start: 09-20-2022 take 2 tablets by mouth once daily Sertraline 100 mg tablet Active 200 mg PO DAILY September 20, 2022 1:00am Start: 09-20-2022 take 200 mg by mouth once larisa y Sertraline Active 200 MG PO DAILY September 20, 2022 12:00am Start: 08-03-2021 take 150 mg by mouth once larisa y Sertraline Active 150 MG PO DAILY August 03, 2021 12:00am Start: 10-28-2015 take 1 tablet by ahmet th once daily SERTRALINE HCL 50 MG TABS One tablet by mouth daily SERTRALINE HCL [id number] Nahid Sotelo MD Start: 10-04-2015 End: 06-07-2020 take 2 tablets by mouth at bedtime Sertraline 50 MG tablet Discontinued 100 mg PO AT BEDTIME October 04, 2015 1:00am June 07, 2020 2:42pm Start: 10-04-2015 End: 06-07-2020 take 100 mg by mouth at bedtime Sertraline Discontinue d 100 MG PO AT BEDTIME October 04, 2015 12:00am June 07, 2020 1:42pm ULTRAFLORA IMMUNE HEALTH (5 sources) Start: 09-20-2022 take 170 mg by mouth once daily ULTRAFLORA [employer] HE[employer] Active 170 mg SL/PO DAILY September 20, 2022 1:00am Start: 09-20-2022 take 170 mg by mouth once larisa y ULTRAFLORA I[employer] HE[employer] Active 170 MG SL/PO DAILY September 20, 2022 1:00am Start: 09-20-2022 take 170 mg by mouth once larisa y ULTRAFLORA [employer] Active 170 MG SL/PO DAILY September 20, 2022 12:00am Completed/Discontinued Medications Medication Drug Class(es) Dates Sig (Normalized) Sig (Original) acetaminophen 325 mg / oxyCODONE hydrochloride 5 mg oral tablet (20 sources) Opioid Agonist Start: 03-14-2023 End: 10-27-2024 Oxycodone-Acetamino phen (Percocet) 5-325 mg tablet Discontinued 1 {tbl} PO THREE TIMES A DAY as needed for pain 9 March 17, 2024 October 27, 2024 1:52pm Start: 02-13-2022 End: 09-22-2022 Oxycodone-Acetaminophen 5-32 5 mg tablet Discontinued 1 {tbl} PO DAILY as needed for Pain February 13, 2022 12:00am September 22, 2022 10:48am Start: 02-13-2022 End: 09-22-2022 take 1 tablet by mouth once daily Oxycodone-Acetaminophen Discontinued 1 TABLET PO DAILY February 12, 2022 11:00pm September 22, 2022 9:48am Start: 06-04-2017 PERCOCET 10-32 5 MG TABS as directed OXYCODONE-ACETAMINOPHEN [id number] Tex CROCKETT Start: 12-03-2014 End: 12-20-2016 PERCOCET 5-325 MG TABS As ne eded OXYCODONE-ACETAMINOPHEN [id number] Nahid Sotelo MD Start: 11-18-2013 End: 11-25-2017 Oxycodone-Acetaminophen 1 TA BLET tablet Discontinued 2 {tbl} PO EVERY 6 HOURS NEEDED as needed for Pain October 06, 2015 4:50pm November 25, 2017 4:50pm Start: 11-18-2013 End: 11-25-2017 take 2 tablets by mouth every six hours as needed Oxycodone-Acetaminophen Discontinued 2 TABLET PO EVERY 6 HOURS NEEDED October 06, 2015 3:50pm November 25, 2017 3:50pm Start: 09-10-2013 End: 09-15-2013 Oxycodone-Acetaminophen 1 TA BLET tablet Discontinued 1 {tbl} PO EVERY 6 HOURS NEEDED as needed for Pain September 10, 2013 1:00am September 15, 2013 10:53pm Start: 09-10-2013 End: 09-15-2013 take 1 tablet by mouth every six hours as needed Oxycodone-Acetaminophen Discontinued 1 TABLET PO EVERY 6 HOURS NEEDED September 10, 2013 12:00am September 15, 2013 9:53pm Start: 06-19-2013 End: 09-10-2013 Oxycodone-Acetaminophen 1 TA BLET tablet Discontinued 2 {tbl} PO EVERY 4 HOURS NEEDED as needed for Pain June 19, 2013 12:00am September 10, 2013 4:10pm Start: 06-19-2013 End: 09-10-2013 take 2 tablets by mouth every four hours as needed Oxycodone-Acetaminophen Discontinued 2 TABLET PO EVERY 4 HOURS NEEDED June 18, 2013 11:00pm September 10, 2013 3:10pm amLODIPine 5 mg oral tablet (7 sources) Dihydropyridine Calcium Channel Greg Start: 07-29-2013 End: 09-10-2013 take 1 tablet by mouth once daily Amlodipine 5 MG tablet Discontinued 5 mg PO DAILY July 29, 2013 1:00am September 10, 2013 4:11pm amLODIPine 5 mg / benazepril hydrochloride 20 mg oral capsule (6 sources) Dihydropyridine Calcium Channel Greg, Angiotensin Converting Enzyme Inhibitor Start: 01-03-2011 End: 05-21-2012 take 10-20 mg by mouth once daily, then take 5-20 tablets by mouth AMLODIPINE BESY-BENAZEPRIL HCL 5-20 MG CAPS On 10-20mg 1 tablet by mouth daily AMLODIPINE BESY-BENAZEPRIL HCL [id number] Camille Siddiqi amoxicillin 500 mg / clavulanate 125 mg oral tablet (7 sources) Penicillin-class Antibacterial Start: 11-18-2013 End: 11-20-2013 Amoxicillin-Pot Clavulanate 500 MG tablet Discontinued 1 {tbl} PO Q12H November 18, 2013 12:00am November 20, 2013 5:16pm ascorbic acid 500 mg extended release oral tablet (14 sources) Vitamin C Start: 08-14-2019 End: 06-07-2020 take 1 tablet by mouth twice daily Ascorbic Acid (Vitamin C) 500 MG tablet extended release Discontinued 500 mg PO TWICE A DAY April 12, 2020 11:30am June 07, 2020 2:43pm give with her methenamine azithromycin 250 mg oral tablet (9 sources) Macrolide Antimicrobial Start: 06-10-2017 End: 06-11-2017 take 1 tablet by mouth once daily Azithromycin 250 MG tablet Discontinued 250 mg PO DAILY June 10, 2017 12:00am June 11, 2017 1:14pm Start: 06-09-2017 ZITHROMAX Z-PA K 250 MG TABS Take as directed AZITHROMYCIN [id number] Jackie Pathak PA-C Calcium (3 sources) Phosphate Binder, Calcium Start: 01-03-2011 take 1 tablet by mouth twice daily CALCIUM 600 MG TABS One tablet by mouth twice daily CALCIUM [id number] Camille Марина Siddiqi CALCIUM-MAGNESI UM TABS (3 sources) Start: 05-21-2012 take 1 tablet by mouth once daily LEELA-MAG TABS & Zinc - One tablet by mouth daily CALCIUM-MAGNESIUM TABS [id number] María Diamond RN castor oil 793 mg/ml / kosovan balsam 88.4 mg/ml / trypsin 0.122 mg/ml topical spray (7 sources) Standardized Chemical Allergen Start: 06-01-2013 End: 09-10-2013 apply 113.4 g topically twice daily Vrnzyiv-Zbnyus-Zhi tor Oil (Granulex) 113.4 GM [place] Discontinued 1 NMA TOPICAL TWICE A DAY June 01, 2013 12:00am September 10, 2013 4:08pm Start: 06-01-2013 End: 09-10-2013 apply 1 spray(s) topically twice daily Ufdvujg-Ajwxyw-Kmqjwt Oil (Granulex) 113.4 GM [place] Discontinued 1 SPRAY TOPICAL TWICE A DAY May 31, 2013 11:00pm September 10, 2013 3:08pm cefadroxil 500 mg oral capsule (7 sources) Cephalosporin Antibacterial Start: 11-20-2013 End: 12-16-2013 take 2 capsules by mouth every twelve hours at mealtime Cefadroxil 500 MG capsule Discontinued 1000 mg PO TWICE A DAY November 20, 2013 12:00am December 16, 2013 11:49am take every 12 hrs with food Start: 11-20-2013 End: 12-16-2013 take 1000 mg by mouth every twelve hours at mealtime Cefadroxil Discontinued 1000 MG PO TWICE A DAY November 19, 2013 11:00pm December 16, 2013 10:49am take every 12 hrs with food cefdinir 300 mg oral capsule (1 source) Cephalosporin Antibacterial Start: 08-13-2024 End: 10-25-2024 take 1 capsule by mouth twice daily Cefdinir 300 mg capsule Discontinued 300 mg PO TWICE A DAY August 13, 2024 1:00am October 26, 2024 12:48am cephalexin 500 mg oral capsule (20 sources) Cephalosporin Antibacterial Start: 08-15-2019 End: 09-11-2019 take 1 capsule by mouth twice daily in the morning Cephalexin 500 MG capsule Discontinued 500 mg PO TWICE A DAY August 15, 2019 1:00am September 11, 2019 3:23pm 1 cap PO BID x 8 doses next dose AM 08/16/2019 Start: 06-01-2019 End: 06-08-2019 take 1 capsule by mouth every twelve hours Cephalexin (Keflex) 500 mg capsule Discontinued 500 mg PO Q12H 14 June 01, 2019 12:00am June 07, 2019 12:00am June 08, 2019 12:08am Start: 01-24-2016 End: 08-15-2016 take 1 capsule by mouth four times daily Cephalexin 500 MG capsule Discontinued 500 mg PO 4 TIMES DAILY January 24, 2016 12:00am August 15, 2016 1:28pm citalopram 20 mg oral tablet (7 sources) Serotonin Reuptake Inhibitor Start: 06-07-2020 End: 02-13-2022 take 1 tablet by mouth once daily Citalopram (Celexa) 20 mg tablet Discontinued 20 mg PO DAILY June 07, 2020 12:00am February 13, 2022 2:10pm cyclobenzaprine hydrochloride 10 mg oral tablet (6 sources) Muscle Relaxant Start: 05-21-2012 End: 12-03-2014 CYCLOBENZAPRINE HCL 10 MG TABS As needed CYCLOBENZAPRINE HCL [id number] Nahid Sotelo MD docusate sodium 100 mg oral capsule (7 sources) Start: 04-21-2019 End: 02-13-2022 take 1 capsule by mouth at bedtime Docusate Sodium 100 MG capsule Discontinued 100 mg PO AT BEDTIME April 21, 2019 12:00am February 13, 2022 2:10pm DULoxetine 60 mg delayed release oral capsule (20 sources) Serotonin and Norepinephrine Reuptake Inhibitor Start: 06-07-2020 End: 08-13-2024 take 1 capsule by mouth once daily Duloxetine 60 mg capsule,delayed release(DR/EC) Discontinued 60 mg PO DAILY June 07, 2020 12:00am August 13, 2024 9:40am Start: 09-15-2013 End: 02-19-2014 take 1 capsule by mouth twice daily Duloxetine 30 MG capsule Discontinued 30 mg PO TWICE A DAY September 15, 2013 1:00am February 19, 2014 11:03am Start: 07-01-2013 End: 09-10-2013 take 1 capsule by mouth once daily Duloxetine 60 MG capsule Discontinued 60 mg PO DAILY July 01, 2013 12:00am September 10, 2013 4:11pm Start: 06-03-2013 End: 07-22-2013 take 2 capsules by mouth at bedtime Duloxetine 30 MG capsule Discontinued 60 mg PO AT BEDTIME June 19, 2013 12:00am July 22, 2013 5:09pm Start: 06-03-2013 End: 07-22-2013 take 60 mg by mouth at bedtime Duloxetine Discontinued 60 MG PO AT BEDTIME June 18, 2013 11:00pm July 22, 2013 4:09pm ergocalciferol 1.25 mg oral capsule (10 sources) Provitamin D2 Compound Start: 04-21-2019 End: 06-07-2020 Ergocalciferol (Vitamin D2) 50,000 UNIT capsule Discontinued 18468 U PO MO April 21, 2019 12:00am June 07, 2020 2:43pm Start: 12-03-2014 take 1 capsule by mo [facility] every month VITAMIN D (ERGOCALCIFEROL) 28116 UNIT CAPS 1 capsule by mouth per month ERGOCALCIFEROL [id number] Nahid Sotelo MD ertapenem 1000 mg injection (1 source) Penem Antibacterial Start: 03-17-2024 End: 10-25-2024 inject 1 g by intramuscular injection once daily Ertapenem 1 gram recon soln Discontinued 1 g IM DAILY March 17, 2024 12:00am October 26, 2024 12:48am dx: esbl uti. Mix with lidocaine. escitalopram 10 mg oral tablet (6 sources) Serotonin Reuptake Inhibitor Start: 01-03-2011 End: 12-03-2014 take 1 tablet by mouth once daily LEXAPRO 10 MG TABS One tablet by mouth daily ESCITALOPRAM OXALATE [id number] Camille Siddiqi ferrous sulfate 325 mg oral tablet (7 sources) Start: 05-26-2019 End: 02-13-2022 take 1 tablet by mouth three times daily at mealtime Ferrous Sulfate 325 mg (65 mg iron) tablet Discontinued 325 mg PO 3 TIMES DAILY WITH MEALS May 26, 2019 12:00am February 13, 2022 2:10pm Fluticasone Propion-Salmetero l (7 sources) Corticosteroid, beta2-Adrenergic Agonist Start: 04-12-2020 End: 06-07-2020 take 1 dose by inhalation twice daily Fluticasone Propion-Salmetero l 1 EACH blister with device Discontinued 1 NMA INHALATION TWICE A DAY April 12, 2020 12:00am June 07, 2020 2:43pm Start: 04-12-2020 End: 06-07-2020 take 1 puff(s) by inhalation twice daily Fluticasone Propion-Salmeterol Discontinued 1 PUFF INHALATION TWICE A DAY April 11, 2020 11:00pm June 07, 2020 1:43pm Start: 04-12-2020 End: 06-07-2020 take 1 puff(s) by inhalation twice daily Fluticasone Propion-Salmeterol Discontinued 1 PUFF INHALATION TWICE A DAY April 12, 2020 12:00am June 07, 2020 2:43pm furosemide 40 mg oral tablet (12 sources) Loop Diuretic Start: 02-13-2022 End: 03-12-2024 take 1 tablet by mouth once daily Furosemide (Lasix) 40 mg tablet Discontinued 40 mg PO DAILY September 20, 2022 5:14pm March 12, 2024 10:58am hydrALAZINE hydrochloride 25 mg oral tablet (14 sources) Arteriolar Vasodilator Start: 06-07-2020 End: 05-01-2022 take 1 tablet by mouth three times daily as needed Hydralazine 25 mg tablet Discontinued 25 mg PO THREE TIMES A DAY as needed February 13, 2022 2:01pm May 01, 2022 4:26pm SBP>170 or DBP>11 hydroCHLOROthiazide 25 mg oral tablet (14 sources) Thiazide Diuretic Start: 08-03-2021 End: 02-13-2022 take 1 tablet by mouth once daily Hydrochlorothiazide 25 mg tablet Discontinued 25 mg PO DAILY August 03, 2021 1:00am February 13, 2022 2:50pm Start: 12-03-2018 End: 06-07-2020 take 1 tablet by mouth once daily Hydrochlorothiazide 25 mg tablet Discontinued 25 mg PO DAILY December 03, 2018 12:00am June 07, 2020 2:40pm hydroCHLOROthiazide 12.5 mg / lisinopril 10 mg oral tablet (6 sources) Thiazide Diuretic, Angiotensin Converting Enzyme Inhibitor Start: 05-21-2012 End: 12-03-2014 take 1 tablet by mouth once daily LISINOPRIL-HYDROCHLOROTHIAZIDE 10-12.5 MG TABS One tablet by mouth daily LISINOPRIL-HYDROCHLOROTHIAZIDE [id number] Nahid Sotelo MD ibuprofen 200 mg oral tablet (6 sources) Nonsteroidal Anti-inflammato ry Drug Start: 05-21-2012 End: 12-03-2014 IBUPROFEN 200 MG TABS patien t states she takes 5-6 tablets a day, takes 2-3 at a time IBUPROFEN [id number] Nahid Sotelo MD levoFLOXacin 500 mg oral tablet (5 sources) Quinolone Antimicrobial Start: 09-22-2022 End: 03-12-2024 take 1 tablet by mouth once daily Levofloxacin 500 mg tablet Discontinued 500 mg PO DAILY September 22, 2022 1:00am March 12, 2024 10:58am lisinopril 10 mg oral tablet (14 sources) Angiotensin Converting Enzyme Inhibitor Start: 06-07-2020 End: 03-12-2024 take 1 tablet by mouth once daily Lisinopril 10 mg tablet Discontinued 10 mg PO DAILY June 07, 2020 12:00am March 12, 2024 10:58am Start: 04-12-2020 End: 06-07-2020 take 2 tablets by mouth once daily Lisinopril 5 MG tablet Discontinued 10 mg PO DAILY April 12, 2020 12:00am June 07, 2020 2:40pm Start: 04-12-2020 End: 06-07-2020 take 10 mg by mouth once daily Lisinopril Discontinued 10 MG PO DAILY April 11, 2020 11:00pm June 07, 2020 1:40pm LORazepam 0.5 mg oral tablet (20 sources) Benzodiazepine Start: 09-11-2019 End: 02-13-2022 take 1 tablet by mouth twice daily as needed for anxiety Lorazepam 0.5 mg tablet Discontinued 0.5 mg PO TWICE A DAY as needed for Anxiety September 11, 2019 1:00am February 13, 2022 2:11pm Start: 10-04-2015 End: 08-15-2016 take 1 tablet by mouth once daily as needed for anxiety Lorazepam 0.5 MG tablet Discontinued 0.5 mg PO DAILY NEEDED as needed for Anxiety October 04, 2015 1:00am August 15, 2016 1:28pm Start: 12-03-2014 End: 12-20-2016 LORAZEPAM 0.5 MG TABS 12/03/14 pt NOT taking due to low bp LORAZEPAM [id number] Nahid Sotelo MD Start: 06-19-2013 End: 09-10-2013 take 1 tablet by mouth once daily as needed for anxiety Lorazepam 0.5 MG tablet Discontinued 0.5 mg PO DAILY as needed for ANXIETY/AGITATION June 19, 2013 12:00am September 10, 2013 4:10pm metFORMIN hydrochloride 500 mg oral tablet (7 sources) Biguanide Start: 06-19-2013 End: 08-12-2013 take 1 tablet by mouth once daily at mealtime Metformin 500 MG tablet Discontinued 500 mg PO DAILY WITH MEALS June 19, 2013 12:00am August 12, 2013 10:00am methadone hydrochloride 10 mg oral tablet (20 sources) Opioid Agonist Start: 04-21-2019 End: 01-03-2021 take 1 tablet by mouth once daily Methadone 5 MG tablet Discontinued 15 mg PO DAILY@0900 April 21, 2019 12:00am January 03, 2021 10:39am Start: 04-21-2019 End: 01-03-2021 take 15 mg by mouth once daily Methadone Discontinued 15 MG PO DAILY@0900 April 20, 2019 11:00pm January 03, 2021 9:39am Start: 10-04-2015 End: 03-12-2024 take 1 tablet by mouth at bedtime Methadone 10 MG tablet Discontinued 10 mg PO AT BEDTIME 3 3 September 22, 2022 March 12, 2024 10:58am Start: 12-03-2014 take 10 mg by mouth twice larisa y Methadone Active 10 MG PO TWICE A DAY October 04, 2015 12:00am mineral oil 1000 mg/ml enema (1 source) Start: 03-14-2024 End: 10-27-2024 Mineral Oil (Jmouq-Mn-Ycj En philip (Min Oil)) enema Discontinued 118 mL RC DAILY as needed for constipation March 14, 2024 12:00am October 27, 2024 1:55pm discard any unused portion Mineral Oil oil (1 source) Start: 06-29-2024 End: 10-25-2024 Mineral Oil oil Discontinued NMA MC as needed June 29, 2024 12:00am October 26, 2024 12:47am Mineral Oil/Petrolatum,White (Eucerin) 1 APPLIC Jar (14 sources) Start: 07-29-2013 End: 09-10-2013 Mineral Oil/Petrolatum,White (Eucerin) 1 APPLIC Jar Discontinued 1 NMA TOPICAL DAILY NEEDED as needed for Dry Skin July 29, 2013 1:00am September 10, 2013 4:09pm Start: 07-29-2013 End: 09-10-2013 Mineral Oil/Petrolatum,White (Eucerin) 1 APPLIC Jar Discontinued 1 APPLIC TOPICAL DAILY NEEDED July 29, 2013 12:00am September 10, 2013 3:09pm Start: 07-29-2013 End: 09-10-2013 Mineral Oil/Petrolatum,White (Eucerin) 1 APPLIC Jar Discontinued 1 APPLIC TOPICAL DAILY NEEDED July 29, 2013 1:00am September 10, 2013 4:09pm Start: 06-01-2013 End: 09-10-2013 Mineral Oil/Petrolatum,White (Eucerin) 1 APPLIC Jar Discontinued 1 NMA TOPICAL TWICE DAILY NEEDED as needed for Wound Care June 01, 2013 12:00am September 10, 2013 4:09pm Start: 06-01-2013 End: 09-10-2013 Mineral Oil/Petrolatum,White (Eucerin) 1 APPLIC Jar Discontinued 1 APPLIC TOPICAL TWICE DAILY NEEDED May 31, 2013 11:00pm September 10, 2013 3:09pm Start: 06-01-2013 End: 09-10-2013 Mineral Oil/Petrolatum,White (Eucerin) 1 APPLIC Jar Discontinued 1 APPLIC TOPICAL TWICE DAILY NEEDED June 01, 2013 12:00am September 10, 2013 4:09pm MULTIPLE VITAMIN (3 sources) Start: 01-03-2011 take 1 tablet by mouth once daily MULTIVITAMINS TABS One tablet by mouth daily MULTIPLE VITAMIN [id number] Camille Siddiqi Multivitamin With Minerals (6 sources) Start: 04-21-2019 End: 06-14-2022 Multivitamin With Minerals Discontinued 1 EACH PO DAILY April 20, 2019 11:00pm June 14, 2022 12:45pm Start: 04-21-2019 End: 06-14-2022 Multivitamin With Minerals D iscontinued 1 EACH PO DAILY April 21, 2019 12:00am June 14, 2022 1:45pm Multivitamin With Minerals 1 EACH tablet (1 source) Start: 04-21-2019 End: 06-14-2022 take 1 tablet by mouth once daily Multivitamin With Minerals 1 EACH tablet Discontinued 1 NMA PO DAILY April 21, 2019 12:00am June 14, 2022 1:45pm Naloxone 4 mg/actuation spray,non-aerosol (1 source) Start: 02-13-2022 End: 10-25-2024 Naloxone 4 mg/actuation spray,non-aerosol Discontinued 1 NMA INTRANASAL every 2 to 3 minutes as needed for OVERDOSE February 13, 2022 12:00am October 26, 2024 12:48am spray 1 dose into ONE nostril; alternate nostrils w each dose until help arrives nitrofurantoin, macrocrystals 25 mg / nitrofurantoin, monohydrate 75 mg oral capsule (7 sources) Nitrofuran Antibacterial Start: 08-13-2019 End: 08-15-2019 take 1 capsule by mouth twice daily Nitrofurantoin Monohyd/M-Cryst 100 MG capsule Discontinued 100 mg PO TWICE A DAY August 13, 2019 1:00am August 15, 2019 12:48pm omeprazole 10 mg delayed release oral capsule (19 sources) Proton Pump Inhibitor Start: 06-04-2017 OMEPRAZOLE 10 MG CPDR as directed OMEPRAZOLE [id number] [place] CROCKETT Start: 01-03-2011 End: 06-19-2013 take 1 capsule by mouth once daily Omeprazole (Prilosec) 40 MG capsule Discontinued 40 mg PO DAILY June 01, 2013 12:00am June 19, 2013 2:44pm Start: 01-03-2011 End: 10-28-2015 take 1 tablet by mouth once daily OMEPRAZOLE 20 MG CPDR One tablet by mouth daily OMEPRAZOLE [id number] Nahid Sotelo MD oxyMORphone hydrochloride 10 mg oral tablet (7 sources) Opioid Agonist Start: 09-10-2013 End: 2014 take 1 tablet by mouth twice daily Oxymorphone (Opana) 10 MG tablet Discontinued 10 mg PO TWICE A DAY September 10, 2013 1:00am 2014 3:12pm pantoprazole 40 mg delayed release oral tablet (14 sources) Proton Pump Inhibitor Start: 06-03-2013 End: 08-12-2013 take 1 tablet by mouth once daily Pantoprazole 40 MG tablet Discontinued 40 mg PO DAILY June 19, 2013 12:00am August 12, 2013 9:59am Pomegranate Fruit Extract (15 sources) Start: 03-12-2024 End: 10-27-2024 take 1 capsule by mouth at dinner Pomegranate Fruit Extract 250 mg capsule Discontinued 250 mg PO WITH DINNER March 12, 2024 10:57am October 27, 2024 1:52pm Start: 02-13-2022 End: 03-12-2024 take 1 capsule by mouth at dinner Pomegranate Fruit Extract 250 mg capsule Discontinued 500 mg PO WITH DINNER February 13, 2022 12:00am March 12, 2024 10:59am Start: 02-13-2022 take 500 mg by mouth at dinner Pomegranate Fruit Extract Active 500 MG PO WITH DINNER February 13, 2022 12:00am Start: 02-13-2022 take 500 mg by mouth at dinner Pomegranate Fruit Extract Active 500 MG PO WITH DINNER February 12, 2022 11:00pm Start: 02-13-2022 take 500 mg by mouth once daily in the evening Pomegranate Fruit Extract Active 500 MG PO EVERY EVENING February 12, 2022 11:00pm Start: 02-13-2022 take 500 mg by mouth once daily in the evening Pomegranate Fruit Extract Active 500 MG PO EVERY EVENING February 13, 2022 12:00am Start: 04-12-2020 End: 06-07-2020 take 1 capsule by mouth once daily Pomegranate Fruit Extract 250 MG capsule Discontinued 500 mg PO DAILY April 12, 2020 12:00am June 07, 2020 2:42pm Start: 04-12-2020 End: 06-07-2020 take 500 mg by mouth once daily Pomegranate Fruit Extr act Discontinued 500 MG PO DAILY April 11, 2020 11:00pm June 07, 2020 1:42pm Start: 04-12-2020 End: 06-07-2020 take 500 mg by mouth once daily Pomegranate Fruit Extr act Discontinued 500 MG PO DAILY April 12, 2020 12:00am June 07, 2020 2:42pm Potassium Chloride (Klor-Con M20) 20 MEQ Tab.Er.Prt (7 sources) Start: 04-12-2020 End: 06-07-2020 Potassium Chloride (Klor-Con M20) 20 MEQ Tab.Er.Prt Discontinued 40 meq PO DAILY April 12, 2020 12:00am June 07, 2020 2:43pm Start: 04-12-2020 End: 06-07-2020 Potassium Chloride (Klor-Con M20) 20 MEQ Tab.Er.Prt Discontinued 40 MEQ PO DAILY April 11, 2020 11:00pm June 07, 2020 1:43pm Start: 04-12-2020 End: 06-07-2020 Potassium Chloride (Klor-Con M20) 20 MEQ Tab.Er.Prt Discontinued 40 MEQ PO DAILY April 12, 2020 12:00am June 07, 2020 2:43pm predniSONE 20 mg oral tablet (20 sources) Start: 09-22-2022 End: 03-12-2024 take 2 tablets by mouth once daily Prednisone 20 mg tablet Discontinued 40 mg PO DAILY September 24, 2023 1:00am March 12, 2024 10:59am Start: 09-22-2022 End: 09-24-2023 take 40 mg by mouth once daily Prednisone Active 40 MG PO DAILY September 24, 2023 12:00am Start: 09-20-2022 End: 09-22-2022 take 1 tablet by mouth once daily Prednisone 50 mg Tablet Discontinued 50 mg PO DAILY September 20, 2022 1:00am September 22, 2022 10:45am Start: 06-14-2019 End: 06-17-2019 take 1 tablet by mouth once daily at mealtime Prednisone 20 MG tablet Discontinued 20 mg PO DAILY June 14, 2019 8:30pm June 17, 2019 8:26am With food Start: 04-23-2019 End: 06-14-2019 take 2 tablets by mouth once daily at mealtime Prednisone 20 MG tablet Discontinued 40 mg PO DAILY April 23, 2019 12:00am June 14, 2019 8:30pm With food Start: 04-23-2019 End: 06-14-2019 take 40 mg by mouth once daily at mealtime Prednisone Discontinued 40 MG PO DAILY April 22, 2019 11:00pm June 14, 2019 7:30pm With food prochlorperazine 5 mg oral tablet (7 sources) Phenothiazine Start: 06-19-2013 End: 09-10-2013 take 1 tablet by mouth every six hours as needed for nausea Prochlorperazine Maleate 5 MG tablet Discontinued 5 mg PO EVERY 6 HOURS NEEDED as needed for NAUSEA/VOMITING June 19, 2013 12:00am September 10, 2013 4:08pm Proheal (5 sources) Start: 09-20-2022 End: 03-12-2024 take 1 mL by mouth twice daily Proheal Discontinued 30 mL SL/PO TWICE A DAY September 20, 2022 1:00am March 12, 2024 10:59am Start: 09-20-2022 take 1 mL by mouth twice daily Proheal Active 30 ML SL/PO TWICE A DAY September 20, 2022 1:00am Start: 09-20-2022 take 1 mL by mouth twice daily Proheal Active 30 ML SL/PO TWICE A DAY September 20, 2022 12:00am promethazine hydrochloride 25 mg oral tablet (7 sources) Phenothiazine Start: 07-29-2013 End: 08-12-2013 take 1 tablet by mouth every six hours as needed for nausea Promethazine 25 MG tablet Discontinued 25 mg PO EVERY 6 HOURS NEEDED as needed for Nausea July 29, 2013 1:00am August 12, 2013 9:59am rivaroxaban 20 mg oral tablet (7 sources) Factor Xa Inhibitor Start: 11-20-2013 End: 02-19-2014 take 1 tablet by mouth once daily Rivaroxaban (Xarelto) 20 MG tablet Discontinued 20 mg PO DAILY@0600 30 November 20, 2013 12:00am February 19, 2014 11:04am Saliva Substitute Combo No.9 (Biotene Dry Mouth Oral Rinse) mouthwash (7 sources) Start: 02-13-2022 End: 06-14-2022 Saliva Substitute Combo No.9 (Biotene Dry Mouth Oral Rinse) mouthwash Discontinued 15 mL MUCOUS MEM 2 to 4 times per day as needed February 13, 2022 12:00am June 14, 2022 1:53pm swish for 15-30 secs , then spit out; do not swallow Start: 02-13-2022 End: 06-14-2022 Saliva Substitute Combo No.9 (Biotene Dry Mouth Oral Rinse) mouthwash Discontinued 15 ML MUCOUS MEM 2 to 4 times per day February 12, 2022 11:00pm June 14, 2022 12:53pm swish for 15-30 secs , then spit out; do not swallow Start: 02-13-2022 End: 06-14-2022 Saliva Substitute Combo No.9 (Biotene Dry Mouth Oral Rinse) mouthwash Discontinued 15 ML MUCOUS MEM 2 to 4 times per day February 13, 2022 12:00am June 14, 2022 1:53pm swish for 15-30 secs , then spit out; do not swallow sodium chloride 0.111 meq/ml nasal spray (7 sources) Start: 08-13-2019 End: 06-07-2020 Sodium Chloride 88 ML aerosol,spray Discontinued 1 NMA NS DAILY August 13, 2019 1:00am June 07, 2020 2:42pm Start: 08-13-2019 End: 06-07-2020 Sodium Chloride Discontinued 1 SPRAY NS DAILY August 13, 2019 12:00am June 07, 2020 1:42pm sulfamethoxazole 800 mg / trimethoprim 160 mg oral tablet (17 sources) Dihydrofolate Reductase Inhibitor Antibacterial, Sulfonamide Antimicrobial Start: 06-10-2017 End: 11-25-2017 Sulfamethoxazole-Trimethopri m 1 TABLET tablet Discontinued 1 {tbl} PO TWICE A DAY June 11, 2017 1:21pm November 25, 2017 4:50pm Start: 06-10-2017 End: 11-25-2017 take 1 tablet by mouth twice daily Sulfamethoxazole-Trimethoprim Discontinu ed 1 TABLET PO TWICE A DAY June 11, 2017 12:21pm November 25, 2017 3:50pm Start: 06-04-2017 End: 06-09-2017 SULFAMETHOXAZOLE-TRIMETHOPRI M 800-160 MG TABS Take 1 tablet every 12 hours SULFAMETHOXAZOLE-TRIMETHOPRIM [id number] [place] CROCKETT tiZANidine 4 mg oral tablet (7 sources) Central alpha-2 Adrenergic Agonist Start: 07-29-2013 End: 09-10-2013 take 1 tablet by mouth every eight hours as needed for muscle spasms Tizanidine (Zanaflex) 4 MG tablet Discontinued 4 mg PO Q8H as needed for muscle spasms July 29, 2013 1:00am September 10, 2013 4:08pm traMADol hydrochloride 50 mg oral tablet (6 sources) Opioid Agonist Start: 01-03-2011 End: 12-03-2014 take 1-2 tablets by mouth every four hours as needed ULTRAM 50 MG TABS 1-2 po Q4H PRN TRAMADOL HCL [id number] Nahid Sotelo MD warfarin sodium 1 mg oral tablet (20 sources) Vitamin K Antagonist Start: 11-18-2013 End: 11-20-2013 take 1.5 mg by mouth once daily Warfarin (Jantoven) 1 MG tablet Discontinued 1.5 mg PO DAILY November 18, 2013 12:00am November 20, 2013 5:16pm Start: 06-19-2013 End: 07-22-2013 take 1 tablet by mouth once daily Warfarin (Jantoven) 2 MG tablet Discontinued 2 mg PO DAILY@1700 June 19, 2013 12:00am July 22, 2013 5:05pm Start: 06-03-2013 End: 06-19-2013 take 1 tablet by mouth once daily Warfarin (Coumadin) 2.5 MG tablet Discontinued 2.5 mg PO DAILY June 03, 2013 12:00am June 19, 2013 2:47pm wellbutin (1 source) Start: 08-13-2024 End: 10-25-2024 wellbutin Discontinued Dece 2023 1:00am October 26, 2024 12:49am Problems Active Problems Problem Classification Problem Date Documented Da te Episodic/Chronic Acquired foot deformities (7 sources) Foot-drop; Translations: [Foot drop, right foot] 04-21-2019 Episodic Chronic obstructive pulmonary disease and bronchiectasis (13 sources) Chronic obstructive lung disease; Translations: [Chronic obstructive pulmonary disease, unspecified] Onset: 01-03-2011 01-03-2011 Chronic Chronic ulcer of skin (20 sources) Chronic ulcer of lower extremity; Translations: [Non-pressure chronic ulcer of unspecified part of right lower leg with fat layer exposed] Onset: 07-14-2024 04-21-2019 Chronic Complications of surgical procedures or medical care (3 sources) Periprosthetic fracture; Translations: [Periprosthetic fracture around other internal prosthetic joint, initial encounter] Onset: 11-02-2024 11-04-2024 Episodic Disorders of lipid metabolism (10 sources) Hyperlipidemia; Translations: [Hyperlipidemia, unspecified] Onset: 01-03-2011 01-03-2011 Chronic Essential hypertension (13 sources) Hypertensive disorder; Translations: [Essential hypertension] Onset: 01-03-2011 01-03-2011 Chronic Headache; including migraine (1 source) Headache; including migraine; Translations: [Headache, unspecified] Onset: 07-23-2024 Heart valve disorders (6 sources) Nonrheumatic tricuspid (valve) insufficiency; Translations: [Rheumatic tricuspid insufficiency] Onset: 10-28-2015 10-28-2015 Chronic Infective arthritis and osteomyelitis (except that caused by tuberculosis or sexually transmitted disease) (13 sources) Acute osteomyelitis of ankle; Translations: [Other acute osteomyelitis, right ankle and foot] Onset: 07-15-2024 06-15-2019 Chronic Malaise and fatigue (8 sources) Fatigue; Translations: [Other fatigue] 08-15-2022 Episodic Nutritional deficiencies (7 sources) Undernutrition; Translations: [Unspecified protein-calorie malnutrition] 04-21-2019 Chronic Open wounds of extremities (4 sources) Laceration of right lower leg; Translations: [Laceration without foreign body, right lower leg, initial encounter] 12-30-2022 Episodic Other circulatory disease (10 sources) H/O: hypertension; Translations: [Personal history of other diseases of the circulatory system] 09-20-2022 Episodic Other circulatory disease (2 sources) Personal history of other diseases of the circulatory system; Translations: [Personal history of other diseases of circulatory system] 09-20-2022 Episodic Other circulatory disease (4 sources) Transient hypotension; Translations: [Hypotension, unspecified] 12-30-2022 Episodic Other connective tissue disease (1 source) Presence of unspecified artificial hip joint; Translations: [Presence of unspecified artificial hip joint] Onset: 11-02-2024 Chronic Other diseases of kidney and ureters (2 sources) Hydronephrosis; Translations: [Unspecified hydronephrosis] 03-17-2024 Episodic Other diseases of veins and lymphatics (3 sources) Venous stasis ulcer of leg; Translations: [Venous insufficiency (chronic) (peripheral)] 04-21-2019 Episodic Other diseases of veins and lymphatics (7 sources) Venous insufficiency of leg; Translations: [Venous insufficiency (chronic) (peripheral)] 06-14-2022 Episodic Comment on above: PVR- normal TRA/wave forms bilateral Other diseases of veins and lymphatics (8 sources) Venous insufficiency (chronic) (peripheral); Translations: [Venous (peripheral) insufficiency, unspecified] Onset: 12-01-2024 Episodic Other diseases of veins and lymphatics (6 sources) Peripheral venous insufficiency; Translations: [Venous insufficiency (chronic) (peripheral)] 11-05-2024 Episodic Other gastrointestinal disorders (1 source) Abdominal distension (gaseous); Translations: [Abdominal distension (gaseous)] Onset: 01-21-2025 Episodic Other injuries and conditions due to external causes (7 sources) H/O: injury; Translations: [Personal history of other (healed) physical injury and trauma] 04-12-2020 Episodic Other injuries and conditions due to external causes (7 sources) Delayed healing of wound; Translations: [Other injury of unspecified body region, subsequent encounter] 06-15-2019 Episodic Other lower respiratory disease (11 sources) History of chronic obstructive airway disease; Translations: [Personal history of other diseases of the respiratory system] 09-20-2022 Episodic Other lower respiratory disease (6 sources) Hypoxemia; Translations: [Hypoxemia] 09-20-2022 Episodic Other lower respiratory disease (3 sources) Hypoxemia; Translations: [Hypoxemia] 09-20-2022 Episodic Other lower respiratory disease (2 sources) Personal history of other diseases of the respiratory system; Translations: [Personal history of other diseases of respiratory system] 09-20-2022 Episodic Other nervous system disorders (7 sources) Chronic pain; Translations: [Other chronic pain] 08-14-2019 Chronic Other nervous system disorders (6 sources) Neuropathy; Translations: [Polyneuropathy, unspecified] 11-05-2024 Chronic Other nervous system disorders (1 source) Polyneuropathy, unspecified; Translations: [Polyneuropathy, unspecified] Onset: 12-01-2024 Chronic Other nervous system disorders (7 sources) Abnormal gait; Translations: [Unsteadiness on feet] 06-15-2019 Episodic Other nutritional; endocrine; and metabolic disorders (3 [...] (BMI) 30.0-30.9, adult] Onset: 04-11-2015 04-11-2015 Chronic Other nutritional; endocrine; and metabolic disorders (1 source) History of hypercholesterolemia; Translations: [Personal history of other endocrine, nutritional and metabolic disease] 03-14-2024 Episodic Other screening for suspected conditions (not mental disorders or infectious disease) (9 sources) Finding of spinal region; Translations: [Abnormal findings on diagnostic imaging of other parts of musculoskeletal system] 09-21-2022 Episodic Pathological fracture (1 source) Age-related osteoporosis with current pathological fracture, right femur, initial encounter for fracture; Translations: [Age-related osteoporosis with current pathological fracture, right femur, initial encounter for fracture] Onset: 11-02-2024 Episodic Destiny-; endo-; and myocarditis; cardiomyopathy (except that caused by tuberculosis or sexually transmitted disease) (15 sources) Cardiomyopathy due to drug and external agent; Translations: [Cardiomyopathy associated with another disorder] Onset: 04-11-2015 04-11-2015 Chronic Peripheral and visceral atherosclerosis (1 source) Peripheral vascular disease, unspecified; Translations: [Peripheral vascular disease, unspecified] Onset: 07-19-2024 Chronic Pneumonia (except that caused by tuberculosis or sexually transmitted disease) (12 sources) Pneumonia; Translations: [Pneumonia, unspecified organism] 09-20-2022 Episodic Residual codes; unclassified (8 sources) Edema of lower extremity; Translations: [Localized edema] 06-15-2019 Episodic Residual codes; unclassified (5 sources) Bilateral lower limb edema; Translations: [Localized edema] 11-04-2024 Episodic Residual codes; unclassified (1 source) Localized edema; Translations: [Localized edema] Onset: 12-01-2024 Episodic Respiratory failure; insufficiency; arrest (adult) (3 sources) Acute respiratory failure; Translations: [Acute respiratory failure with hypoxia] 09-22-2023 Episodic Spondylosis; intervertebral disc disorders; other back problems (1 source) Degeneration of intervertebral disc; Translations: [Degeneration of intervertebral disc, site unspecified] 03-17-2024 Chronic Unclassified (6 sources) Long-term drug therapy; Translations: [Other prison (current) drug therapy] Onset: 10-13-2015 06-04-2017 Unclassified (1 source) Follow-up in 2 weeks-call for an office appointment Unclassified (1 source) Call to arrange follow-up appointment for right foot wound Past or Other Problems Problem Classification Problem Date Documented Da te Episodic/Chronic Cardiac dysrhythmias (3 sources) Palpitations; Translations: [Palpitations] Onset: 06-05-2017 06-05-2017 Episodic Nonspecific chest pain (6 sources) Chest pain, unspecified; Translations: [Chest pain, unspecified] Onset: 01-03-2011 Resolved: 10-13-2015 01-03-2011 Episodic Other connective tissue disease (3 sources) Pain in calf; Translations: [Pain in right lower leg] Onset: 06-04-2017 06-04-2017 Episodic Other diseases of kidney and ureters (1 source) Unspecified hydronephrosis; Translations: [Unspecified hydronephrosis] Onset: 03-17-2024 Episodic Other lower respiratory disease (3 sources) [...] right lower limb] Onset: 06-04-2017 06-04-2017 Episodic Urinary tract infections (17 sources) Urinary tract infectious disease; Translations: [Urinary tract infection, site not specified] Onset: 03-17-2024 06-07-2020 Episodic Results Test Name Value Interpretation Reference Range Facility Gastric Emptying Studyon Gastric Emptying Study Normal [facility] Gastroenterology Visit Repor ton 12-30-2024 Gastroenterology Visit Report Normal [facility] Absolute neutrophil countOrd ered By: Kay Padilla on 10-26-2024 Neutrophils (Bld) [#/Vol] 6.5 10*3/uL 2.0-7.7 [facility] Albumin to globulin ratioOrd ered By: Kay Padilla on 10-26-2024 Albumin/Globulin [Mass ratio] 0.8 {ratio} Low 0.9-2.4 [facility] Basophil percentageOrdered B y: Kay Padilla on 10-26-2024 Basophils/100 WBC (Bld) 0.3 % 0-1 [facility] Bilirubin, totalOrdered By: Kay Valerie on 10-26-2024 Bilirubin [Mass/Vol] 0.30 mg/dL 0.20-1.00 [facility] Comment on above: For patients on eltr ombopag therapy, use of Dimension [place] TBIL is not recommended. Blood urea nitrogen (BUN)/cr eatinine ratioOrdered By: Kay Padilla on 10-26-2024 Urea nitrogen/Creatinine [Mass ratio] 43.1 mg/mg High 10-20 [facility] CBC W/Diff, Automatedon 10-04 Absolute Lymph 2.12 X10 3/uL Normal 0.83-4.51 [facility] Comment on above: Order Comment: CIERRA W. PREVIOUS SPECIMEN REJECTED DUE TOCLOT. 10/26/24723 Caroline Elliott. Performed By: #### L 100.0100 ####[facility] [address] [place], [address] Absolute Neut 6.5 X10 3/uL Normal 2.0-7.7 [facility] Comment on above: Order Comment: RED W. PREVIOUS SPECIMEN REJECTED DUE TOCLOT. 10/26/2424 Caroline Elliott. Performed By: #### L 100.0100 ####[facility] [address] [place], [address] Basophils/100 WBC (Bld) 0.3 % Normal 0-1 [facility] Comment on above: Order Comment: REDRA W. PREVIOUS SPECIMEN REJECTED DUE TOCLOT. 10/26/24723 Caroline Elliott. Performed By: #### L 100.0100 ####[facility] [address] [place], [address] Eosinophils/100 WBC (Bld) 2.4 % Normal 0-5 [facility] Comment on above: Order Comment: REDRA W. PREVIOUS SPECIMEN REJECTED DUE TOCLOT. 10/26/24723 Caroline Elliott. Performed By: #### L 100.0100 ####[facility] [address] [place], [address] Erythrocyte distribution width (RBC) [Ratio] 13.2 % Normal 11.6-14.6 [facility] Comment on above: Order Comment: REDRA W. PREVIOUS SPECIMEN REJECTED DUE TOCLOT. 10/26/24723 Caroline Elliott. Performed By: #### L 100.0100 ####[facility] [address] [place], [address] Hematocrit (Bld) [Volume fraction] 34.4 % Low 37-47 [facility] Comment on above: Order Comment: REDRA W. PREVIOUS SPECIMEN REJECTED DUE TOCLOT. 10/26/24723 Caroline Elliott. Performed By: #### L 100.0100 ####[facility] [address] [place], [address] Hemoglobin (Bld) [Mass/Vol] 10.4 g/dL Low 12.0-15.0 [facility] Comment on above: Order Comment: REDRA W. PREVIOUS SPECIMEN REJECTED DUE TOCLOT. 10/26/24723 Caroline Elliott. Performed By: #### L 100.0100 ####[facility] [address] [place], [address] IG% 0.400 Normal 0.0-0.9 [facility] Comment on above: Order Comment: REDRA W. PREVIOUS SPECIMEN REJECTED DUE TOCLOT. 10/26/24723 Caroline Elliott. Result Comment: IG% - Immature Granulocytes (promyelocytes, myelocytes andmetamyelocytes) > 1% indicates that a LEFT SHIFT is Present. Performed By: #### L 100.0100 ####[facility] [address] [place], [address] Lymphocytes/100 WBC (Bld) 21.8 % Normal 19-41 [facility] Comment on above: Order Comment: REDRA W. PREVIOUS SPECIMEN REJECTED DUE TOCLOT. 10/26/24723 Caroline Elliott. Performed By: #### L 100.0100 ####[facility] [address] [place], [address] MCH (RBC) [Entitic mass] 30.1 pg Normal 27.0-32.0 [facility] Comment on above: Order Comment: REDRA W. PREVIOUS SPECIMEN REJECTED DUE TOCLOT. 10/26/24723 Caroline Elliott. Performed By: #### L 100.0100 ####[facility] [address] [place], [address] MCHC (RBC) [Mass/Vol] 30.2 g/dL Low 32-36 [facility] Comment on above: Order Comment: REDRA W. PREVIOUS SPECIMEN REJECTED DUE TOCLOT. 10/26/24723 Caroline Elliott. Performed By: #### L 100.0100 ####[facility] [address] [place], [address] MCV (RBC) [Entitic vol] 99.7 fL High 81-99 [facility] Comment on above: Order Comment: REDRA W. PREVIOUS SPECIMEN REJECTED DUE TOCLOT. 10/26/24723 Caroline Elliott. Performed By: #### L 100.0100 ####[facility] [address] [place], [address] Monocytes/100 WBC (Bld) 8.0 % Normal 0-10 [facility] Comment on above: Order Comment: REDRA W. PREVIOUS SPECIMEN REJECTED DUE TOCLOT. 10/26/2424 Caroline Elliott. Performed By: #### L 100.0100 ####[facility] [address] [place], [address] Neutrophils/100 WBC (Bld) 67.1 % Normal 47-70 [facility] Comment on above: Order Comment: REDRA W. PREVIOUS SPECIMEN REJECTED DUE TOCLOT. 10/26/24 24 Caroline Elliott. Performed By: #### L 100.0100 ####[facility] [address] [place], [address] Nucleated RBC (Bld) [#/Vol] 0 10*3/uL Normal 0-5 [facility] Comment on above: Order Comment: REDRA W. PREVIOUS SPECIMEN REJECTED DUE TOCLOT. 10/26/24 [facility] Caroline Elliott. Performed By: #### L 100.0100 ####[facility] [address] [place], [address] Platelet mean volume (Bld) [Entitic vol] 10.2 fL Normal 6.2-12.0 [facility] Comment on above: Order Comment: REDRA W. PREVIOUS SPECIMEN REJECTED DUE TOCLOT. 10/26/2424 Caroline Elliott. Performed By: #### L 100.0100 ####[facility] [address] [place], [address] Platelets (Bld) [#/Vol] 261 10*3/uL Normal 150-450 [facility] Comment on above: Order Comment: REDRA W. PREVIOUS SPECIMEN REJECTED DUE TOCLOT. 10/26/2424 Caroline Elliott. Performed By: #### L 100.0100 ####[facility] [address] [place], [address] RBC (Bld) [#/Vol] 3.45 10*6/uL Low 4.2-5.4 [facility] Comment on above: Order Comment: REDRA W. PREVIOUS SPECIMEN REJECTED DUE TOCLOT. 10/26/24723 Caroline Elliott. Performed By: #### L 100.0100 ####[facility] [address] [place], [address] RDW SD 48.3 fl High 35.1-43.9 [facility] Comment on above: Order Comment: REDRA W. PREVIOUS SPECIMEN REJECTED DUE TOCLOT. 10/26/2424 Caroline Elliott. Performed By: #### L 100.0100 ####[facility] [address] [place], [address] WBC (Bld) [#/Vol] 9.7 10*3/uL Normal 4.4-11.0 [facility] Comment on above: Order Comment: REDRA W. PREVIOUS SPECIMEN REJECTED DUE TOCLOT. 10/26/24723 Caroline Elliott. Performed By: #### L 100.0100 ####[facility] [address] [place], [address] Absolute Neut Normal 2.0-7.7 [facility] Comment on above: Result Comment: This specimen has been REJECTED due to Laboratory criteria:Clotted.BRITNI has been notified of need of recollection.10/26/24722 Caroline Elliott Performed By: #### L 500.4050, L100.0100 ####[facility] [address] [place], [address] HCT Normal 37-47 [facility] Comment on above: Result Comment: This specimen has been REJECTED due to Laboratory criteria:Clotted.BRITNI has been notified of need of recollection.10/26/24722 Caroline Elliott Performed By: #### L 500.4050, L100.0100 ####[facility] [address] [place], [address] HGB Normal 12.0-15.0 [facility] Comment on above: Result Comment: This specimen has been REJECTED due to Laboratory criteria:Clotted.BRITNI has been notified of need of recollection.10/26/2423 Caroline Elliott Performed By: #### L 500.4050, L100.0100 ####[facility] [address] [place], [address] MCH Normal 27.0-32.0 [facility] Comment on above: Result Comment: This specimen has been REJECTED due to Laboratory criteria:Clotted.BRITNI has been notified of need of recollection.10/26/24722 Caroline Elliott Performed By: #### L 500.4050, L100.0100 ####[facility] [address] [place], [address] MCHC Normal 32-36 [facility] Comment on above: Result Comment: This specimen has been REJECTED due to Laboratory criteria:Clotted.BRITNI has been notified of need of recollection.10/26/24722 Caroline Elliott Performed By: #### L 500.4050, L100.0100 ####[facility] [address] [place], [address] MCV Normal 81-99 [facility] Comment on above: Result Comment: This specimen has been REJECTED due to Laboratory criteria:Clotted.BRITNI has been notified of need of recollection.10/26/24722 Caroline Elliott Performed By: #### L 500.4050, L100.0100 ####[facility] [address] [place], [address] NEUT% Normal 47-70 [facility] Comment on above: Result Comment: This specimen has been REJECTED due to Laboratory criteria:Clotted.BRITNI has been notified of need of recollection.10/26/2423 Caroline Elliott Performed By: #### L 500.4050, L100.0100 ####[facility] [address] [place], [address] PLT Normal 150-450 [facility] Comment on above: Result Comment: This specimen has been REJECTED due to Laboratory criteria:Clotted.BRITNI has been notified of need of recollection.10/26/2423 Caroline Elliott Performed By: #### L 500.4050, L100.0100 ####[facility] [address] [place], [address] RBC Normal 4.2-5.4 [facility] Comment on above: Result Comment: This specimen has been REJECTED due to Laboratory criteria:Clotted.BRITNI has been notified of need of recollection.10/26/24722 Caroline Elliott Performed By: #### L 500.4050, L100.0100 ####[facility] [address] [place], [address] RDW CV Normal 11.6-14.6 [facility] Comment on above: Result Comment: This specimen has been REJECTED due to Laboratory criteria:Clotted.BRITNI has been notified of need of recollection.10/26/24722 Caroline Elliott Performed By: #### L 500.4050, L100.0100 ####[facility] [address] [place], [address] RDW SD Normal 35.1-43.9 [facility] Comment on above: Result Comment: This specimen has been REJECTED due to Laboratory criteria:Clotted.BRITNI has been notified of need of recollection.10/26/24722 Caroline Elliott Performed By: #### L 500.4050, L100.0100 ####[facility] [address] [place], [address] WBC Normal 4.4-11.0 [facility] Comment on above: Result Comment: This specimen has been REJECTED due to Laboratory criteria:Clotted.BRITNI has been notified of need of recollection.10/26/2423 Caroline Elliott Performed By: #### L 500.4050, L100.0100 ####[facility] [address] [place], [address] Carbon dioxide measurementOr dered By: Kay Padilla on 10-26-2024 CO2 [Moles/Vol] 22.0 mmol/L 21.0-32.0 [facility] Chloride measurementOrdered By: Kay Padilla on 10-26-2024 Chloride [Moles/Vol] 108 mmol/L High 98-107 [facility] Comprehensive Metabolic Prof ilon 10-26-2024 Albumin [Mass/Vol] 2.8 g/dL Low 3.2-5.0 [facility] Comment on above: Performed By: #### L 500.4050, L100.0100 ####[facility] [address] [place], [address] Albumin/Globulin [Mass ratio] 0.8 {ratio} Low 0.9-2.4 [facility] Comment on above: Performed By: #### L 500.4050, L100.0100 ####[facility] [address] [place], [address] ALK P 73 U/L Normal 45-117 [facility] Comment on above: Performed By: #### L 500.4050, L100.0100 ####[facility] [address] [place], [address] ALT [Catalytic activity/Vol] 26 U/L Normal 13-56 [facility] Comment on above: Performed By: #### L 500.4050, L100.0100 ####[facility] [address] [place], [address] AST [Catalytic activity/Vol] 25 U/L Normal 15-37 [facility] Comment on above: Performed By: #### L 500.4050, L100.0100 ####[facility] [address] [place], [address] Bilirubin [Mass/Vol] 0.30 mg/dL Normal 0.20-1.00 [facility] Comment on above: Result Comment: For patients on eltrombopag therapy, use of Dimension [place] TBIL is not recommended. Performed By: #### L 500.4050, L100.0100 ####[facility] [address] [place], [address] BUN/CRE 43.1 RATIO High 10-20 [facility] Comment on above: Performed By: #### L 500.4050, L100.0100 ####[facility] [address] [place], [address] CA,Total 9.2 mg/dL Normal 8.5-10.1 [facility] Comment on above: Performed By: #### L 500.4050, L100.0100 ####[facility] [address] [place], [address] Chloride [Moles/Vol] 108 mmol/L High 98-107 [facility] Comment on above: Performed By: #### L 500.4050, L100.0100 ####[facility] [address] [place], [address] CO2 [Moles/Vol] 22.0 mmol/L Normal 21.0-32.0 [facility] Comment on above: Performed By: #### L 500.4050, L100.0100 ####[facility] [address] [place], [address] Creatinine [Mass/Vol] 1.37 mg/dL High 0.55-1.02 [facility] Comment on above: Result Comment: The validity of the calculated GFR GFRAA in patients over70 years has not been determined. Clinical correlation isessential. Performed By: #### L 500.4050, L100.0100 ####[facility] [address] [place], [address] ECRCL 34.32 ml/min Normal [facility] Comment on above: Performed By: #### L 500.4050, L100.0100 ####[facility] [address] [place], [address] EST GFR - AA 48 mL/min Low >60 [facility] Comment on above: Result Comment: Afri can Nepalese GFR Calc Performed By: #### L 500.4050, L100.0100 ####[facility] [address] [place], [address] GAP 8 Normal 5-15 [facility] Comment on above: Performed By: #### L 500.4050, L100.0100 ####[facility] [address] [place], [address] GFR/1.73 sq M.predicted among non-blacks MDRD (S/P/Bld) [Vol rate/Area] 40 mL/min/{1.73_m2} Low >60 [facility] Comment on above: Result Comment: Non- GFR Calc Performed By: #### L 500.4050, L100.0100 ####[facility] [address] [place], [address] Globulin (S) [Mass/Vol] 3.6 g/dL Normal 2.2-4.2 [facility] Comment on above: Performed By: #### L 500.4050, L100.0100 ####[facility] [address] [place], [address] Glucose [Mass/Vol] 128 mg/dL High 74-106 [facility] Comment on above: Result Comment: Fast ing Glucose result greater than or equal to 126 mg/dLsuggests DIABETES MELLITUS per A.D.A. criteria. Performed By: #### L 500.4050, L100.0100 ####[facility] [address] [place], [address] Potassium [Moles/Vol] 4.8 mmol/L Normal 3.5-5.1 [facility] Comment on above: Performed By: #### L 500.4050, L100.0100 ####[facility] [address] [place], [address] Sodium [Moles/Vol] 138 mmol/L Normal 136-145 [facility] Comment on above: Performed By: #### L 500.4050, L100.0100 ####[facility] [address] [place], [address] T PROT 6.4 g/dL Normal 6.4-8.2 [facility] Comment on above: Performed By: #### L 500.4050, L100.0100 ####[facility] [address] [place], [address] Urea nitrogen [Mass/Vol] 59 mg/dL High 7-18 [facility] Comment on above: Performed By: #### L 500.4050, L100.0100 ####[facility] [address] [place], [address] Eosinophil percentageOrdered By: Kay Valerie on 10-26-2024 Eosinophils/100 WBC (Bld) 2.4 % 0-5 [facility] Erythrocyte distribution wid th ratioOrdered By: Kay Valerie on 10-26-2024 Erythrocyte distribution width (RBC) [Ratio] 13.2 % 11.6-14.6 [facility] Erythrocyte distribution wid th standard deviationOrdered By: Kay Valerie on 10-26-2024 Erythrocyte distribution width (RBC) [Entitic vol] 48.3 fL High 35.1-43.9 [facility] Estimated glomerular filtrat ion rate (GFR) AmericanOrdered By: Kay Valerie on 10-26-2024 Estimated GFR (MDRD) Amer 48 mL/min Low >60 [facility] Comment on above: GFR Calc Estimation of creatinine mando aranceOrdered By: Kay Padilla on 10-26-2024 Estimated Creatinine Clearance Calc 34.32 ml/min [facility] Glomerular filtration rate ( GFR) estimationOrdered By: Kay Padilla on 02-24-2025 Estimated GFR (MDRD) Non-Af Amer 40 mL/min Low >60 [facility] Comment on above: Non- GFR Calc Glucose measurementOrdered B y: Kay Padilla on 10-26-2024 Glucose [Mass/Vol] 128 mg/dL High 74-106 [facility] Comment on above: Fasting Glucose resu lt greater than or equal to 126 mg/dL suggests DIABETES MELLITUS per A.D.A. criteria. Hematocrit Auto (Bld) [Volum e fraction]Ordered By: Kay Padilla on 10-26-2024 Hematocrit (Bld) [Volume fraction] 34.4 % Low 37-47 [facility] Hemoglobin measurementOrdere d By: Kay Valerie on 10-26-2024 Hemoglobin (Bld) [Mass/Vol] 10.4 g/dL Low 12.0-15.0 [facility] Immature granulocytes/100 WB C Auto (Bld)Ordered By: Kay Padilla on 10-26-2024 Immature granulocytes/100 WBC (Bld) 0.400 % 0.0-0.9 [facility] Comment on above: IG% - Immature Granu locytes (promyelocytes, myelocytes and metamyelocytes) > 1% indicates that a LEFT SHIFT is Present. Laboratory - Chemistry and C hemistry - challengeOrdered By: Kay Padilla on 10-26-2024 AST [Catalytic activity/Vol] 25 U/L 15-37 [facility] Lymphocytes Auto (Unsp spec) [#/Vol]Ordered By: Kay Padilla on 10-26-2024 Lymphocytes (Bld) [#/Vol] 2.12 10*3/uL 0.83-4.51 [facility] Lymphocytes/100 WBC Auto (Un sp spec)Ordered By: Kay Padilla on 10-26-2024 Lymphocytes/100 WBC (Bld) 21.8 % 19-41 [facility] MCV (mean corpuscular volume ) determinationOrdered By: Kay Padilla on 10-26-2024 MCV (RBC) [Entitic vol] 99.7 fL High 81-99 [facility] Mean corpuscular hemoglobin (MCH) determinationOrdered By: Kay Padilla on 10-26-2024 MCH (RBC) [Entitic mass] 30.1 pg 27.0-32.0 [facility] Mean corpuscular hemoglobin concentration (MCHC) determinationOrdered By: Kay White on 10-26-2024 MCHC (RBC) [Mass/Vol] 30.2 g/dL Low 32-36 [facility] Mean platelet volume determi nationOrdered By: Kay White on 10-26-2024 Platelet mean volume (Bld) [Entitic vol] 10.2 fL 6.2-12.0 [facility] Monocyte percentageOrdered B y: Kay White on 10-26-2024 Monocytes/100 WBC (Bld) 8.0 % 0-10 [facility] Neutrophil percentageOrdered By: Kay White on 10-26-2024 Neutrophils/100 WBC (Bld) 67.1 % 47-70 [facility] Nucleated red blood cell per centageOrdered By: Kay White on 10-26-2024 Nucleated RBC/100 WBC (Bld) [Ratio] 0 % 0-5 [facility] Platelet countOrdered By: Elizabeth yari Valerie on 10-26-2024 Platelets (Bld) [#/Vol] 261 10*3/uL 150-450 [facility] Potassium measurementOrdered By: Kay White on 10-26-2024 Potassium [Moles/Vol] 4.8 mmol/L 3.5-5.1 [facility] RBC Auto (Bld) [#/Vol]Ordere d By: Kay White on 10-26-2024 RBC (Bld) [#/Vol] 3.45 10*6/uL Low 4.2-5.4 [facility] Serum anion gap measurementO rdered By: Kay White on 10-26-2024 Anion gap [Moles/Vol] 8 mmol/L 5-15 [facility] Serum globulin measurementOr dered By: Kay White on 10-26-2024 Globulin (S) [Mass/Vol] 3.6 g/dL 2.2-4.2 [facility] Serum or plasma alanine martin otransferase (ALT) measurementOrdered By: Kay White on 10-26-2024 ALT [Catalytic activity/Vol] 26 U/L 13-56 [facility] Serum or plasma albumin lory urement (mass/volume)Ordered By: Kay White on 10-26-2024 Albumin [Mass/Vol] 2.8 g/dL Low 3.2-5.0 [facility] Serum or plasma alkaline linda sphatase measurementOrdered By: Kay Valerie on 10-26-2024 ALP [Catalytic activity/Vol] 73 U/L 45-117 [facility] Serum or plasma calcium lory urement (mass/volume)Ordered By: Kay Padilla on 10-26-2024 Calcium [Mass/Vol] 9.2 mg/dL 8.5-10.1 [facility] Serum or plasma creatinine m easurement (mass/volume)Ordered By: Kay Padilla on 10-26-2024 Creatinine [Mass/Vol] 1.37 mg/dL High 0.55-1.02 [facility] Comment on above: The validity of the calculated GFR & GFRAA in patients over 70 years has not been determined. Clinical correlation is essential. Serum or plasma urea nitroge n measurement (mass/volume)Ordered By: Kay Padilla on 10-26-2024 Urea nitrogen [Mass/Vol] 59 mg/dL High 7-18 [facility] Sodium levelOrdered By: Dyanau mn Valerie on 10-26-2024 Sodium [Moles/Vol] 138 mmol/L 136-145 [facility] Total proteinOrdered By: Dyana umn Valerie on 10-26-2024 Protein [Mass/Vol] 6.4 g/dL 6.4-8.2 [facility] White blood cell (WBC) count Ordered By: Kay Padilla on 10-26-2024 WBC (Bld) [#/Vol] 9.7 10*3/uL 4.4-11.0 [facility] Basic Metabolic Profile (BMP )on 10-25-2024 BUN/CRE 42.5 RATIO High 10-20 [facility] Comment on above: Performed By: #### L 100.0100, L500.2500 ####[facility] [address] [place], [address] CA,Total 9.4 mg/dL Normal 8.5-10.1 [facility] Comment on above: Performed By: #### L 100.0100, L500.2500 ####[facility] [address] [place], [address] Chloride [Moles/Vol] 106 mmol/L Normal 98-107 [facility] Comment on above: Performed By: #### L 100.0100, L500.2500 ####[facility] [address] [place], [address] CO2 [Moles/Vol] 28.0 mmol/L Normal 21.0-32.0 [facility] Comment on above: Performed By: #### L 100.0100, L500.2500 ####[facility] [address] [place], [address] Creatinine [Mass/Vol] 1.34 mg/dL High 0.55-1.02 [facility] Comment on above: Result Comment: The validity of the calculated GFR GFRAA in patients over70 years has not been determined. Clinical correlation isessential. Performed By: #### L 100.0100, L500.2500 ####[facility] [address] [place], [address] ECRCL 36.83 ml/min Normal [facility] Comment on above: Performed By: #### L 100.0100, L500.2500 ####[facility] [address] [place], [address] EST GFR - AA 49 mL/min Low >60 [facility] Comment on above: Result Comment: Afri can [place]e GFR Calc Performed By: #### L 100.0100, L500.2500 ####[facility] [address] [place], [address] GAP 4 Low 5-15 [facility] Comment on above: Performed By: #### L 100.0100, L500.2500 ####[facility] [address] [place], [address] GFR/1.73 sq M.predicted among non-blacks MDRD (S/P/Bld) [Vol rate/Area] 41 mL/min/{1.73_m2} Low >60 [facility] Comment on above: Result Comment: Non- GFR Calc Performed By: #### L 100.0100, L500.2500 ####[facility] [address] [place], [address] Glucose [Mass/Vol] 115 mg/dL High 74-106 [facility] Comment on above: Result Comment: Fast ing Glucose result from 100 to 125 mg/dLsuggests IMPAIRED HOMEOSTASIS per A.D.A. criteria. Performed By: #### L 100.0100, L500.2500 ####[facility] [address] [place], [address] Potassium [Moles/Vol] 4.8 mmol/L Normal 3.5-5.1 [facility] Comment on above: Performed By: #### L 100.0100, L500.2500 ####[facility] [address] [place], [address] Sodium [Moles/Vol] 138 mmol/L Normal 136-145 [facility] Comment on above: Performed By: #### L 100.0100, L500.2500 ####[facility] [address] [place], [address] Urea nitrogen [Mass/Vol] 57 mg/dL High 7-18 [facility] Comment on above: Performed By: #### L 100.0100, L500.2500 ####[facility] [address] [place], [address] Brain/Head without Contrasto n 10-25-2024 Brain/Head without Contrast Normal [facility] CBC W/Diff, Automatedon 02- Absolute Lymph 2.40 X10 3/uL Normal 0.83-4.51 [facility] Comment on above: Performed By: #### L 100.0100, L500.2500 ####[facility] [address] [place], [address] Absolute Neut 6.9 X10 3/uL Normal 2.0-7.7 [facility] Comment on above: Performed By: #### L 100.0100, L500.2500 ####[facility] [address] [place], [address] Basophils/100 WBC (Bld) 0.5 % Normal 0-1 [facility] Comment on above: Performed By: #### L 100.0100, L500.2500 ####[facility] [address] [place], [address] Eosinophils/100 WBC (Bld) 3.4 % Normal 0-5 [facility] Comment on above: Performed By: #### L 100.0100, L500.2500 ####[facility] [address] [place], [address] Erythrocyte distribution width (RBC) [Ratio] 13.1 % Normal 11.6-14.6 [facility] Comment on above: Performed By: #### L 100.0100, L500.2500 ####[facility] [address] [place], [address] Hematocrit (Bld) [Volume fraction] 34.1 % Low 37-47 [facility] Comment on above: Performed By: #### L 100.0100, L500.2500 ####[facility] [address] [place], [address] Hemoglobin (Bld) [Mass/Vol] 10.6 g/dL Low 12.0-15.0 [facility] Comment on above: Performed By: #### L 100.0100, L500.2500 ####[facility] [address] [place], [address] IG% 0.500 Normal 0.0-0.9 [facility] Comment on above: Result Comment: IG% - Immature Granulocytes (promyelocytes, myelocytes andmetamyelocytes) > 1% indicates that a LEFT SHIFT is Present. Performed By: #### L 100.0100, L500.2500 ####[facility] [address] [place], [address] Lymphocytes/100 WBC (Bld) 23.0 % Normal 19-41 [facility] Comment on above: Performed By: #### L 100.0100, L500.2500 ####[facility] [address] [place], [address] MCH (RBC) [Entitic mass] 30.7 pg Normal 27.0-32.0 [facility] Comment on above: Performed By: #### L 100.0100, L500.2500 ####[facility] [address] [place], [address] MCHC (RBC) [Mass/Vol] 31.1 g/dL Low 32-36 [facility] Comment on above: Performed By: #### L 100.0100, L500.2500 ####[facility] [address] [place], [address] MCV (RBC) [Entitic vol] 98.8 fL Normal 81-99 [facility] Comment on above: Performed By: #### L 100.0100, L500.2500 ####[facility] [address] [place], [address] Monocytes/100 WBC (Bld) 7.0 % Normal 0-10 [facility] Comment on above: Performed By: #### L 100.0100, L500.2500 ####[facility] [address] [place], [address] Neutrophils/100 WBC (Bld) 65.6 % Normal 47-70 [facility] Comment on above: Performed By: #### L 100.0100, L500.2500 ####[facility] [address] [place], [address] Nucleated RBC (Bld) [#/Vol] 0 10*3/uL Normal 0-5 [facility] Comment on above: Performed By: #### L 100.0100, L500.2500 ####[facility] [address] [place], [address] Platelet mean volume (Bld) [Entitic vol] 10.6 fL Normal 6.2-12.0 [facility] Comment on above: Performed By: #### L 100.0100, L500.2500 ####[facility] [address] [place], [address] Platelets (Bld) [#/Vol] 275 10*3/uL Normal 150-450 [facility] Comment on above: Performed By: #### L 100.0100, L500.2500 ####[facility] [address] [place], [address] RBC (Bld) [#/Vol] 3.45 10*6/uL Low 4.2-5.4 [facility] Comment on above: Performed By: #### L 100.0100, L500.2500 ####[facility] [address] [place], [address] RDW SD 47.1 fl High 35.1-43.9 [facility] Comment on above: Performed By: #### L 100.0100, L500.2500 ####[facility] [address] [place], [address] WBC (Bld) [#/Vol] 10.4 10*3/uL Normal 4.4-11.0 [facility] Comment on above: Performed By: #### L 100.0100, L500.2500 ####[facility] [address] [place], [address] Emergency Department Summary on 10-25-2024 Emergency Department Summary Normal [facility] H AND P Exam - Hospitaliston 10-25-2024 H&P Exam - Hospitalist Normal [facility] HIP, UNI W/ Pelvis 2-3 Views on 10-25-2024 HIP, UNI W/ Pelvis 2-3 Views Normal [facility] Spine Cervical without Contr ason 10-25-2024 Spine Cervical without Contras Normal [facility] Spine Lumbar without Contras ton 10-25-2024 Spine Lumbar without Contrast Normal [facility] Spine Thoracic without Contr ason 10-25-2024 Spine Thoracic without Contras Normal [facility] Wound Ctr History AND Physic ezekiel 08-13-2024 Wound Ctr History & Physical Normal [facility] Brain/Head W/WO Contraston 1 09-05-2023 Brain/Head W/WO Contrast Normal [facility] Lower Ext Art Exam w/o Exerc hudson 07-01-2024 Lower Ext Art Exam w/o Exercis Normal [facility] Culture, Anaerobic Any Sourc alex 06-29-2024 CUAN DOWN TO BONE, 2ND TO E No growth in 5 days. Normal [facility] Comment on above: Performed By: #### M 100.1999, M100.4001, M100.3000 ####[facility] [address] [place], [place], [address] Gastroenterology Visit Repor ton 06-29-2024 Gastroenterology Visit Report Normal [facility] Lower Ext/No Jt/w/oon 2023 Lower Ext/No Jt/w/o Normal [facility] Gram Stainon 06-24-2024 GS DOWN TO BONE, 2ND TO E Gram Stain Rare Red Blood Cells No organisms seen Normal [facility] Comment on above: Performed By: #### M 100.1999, M100.4001, M100.3000 ####[facility] [address] [place], [address] Wound Cultureon 06-24-2024 WC DOWN TO BONE, 2ND TO E No growth aerobically. Normal [facility] Comment on above: Performed By: #### M 100.2000, M100.4001, M100.3000 ####[facility] [address] [place], [place], [address] Basic Metabolic Profile (BMP )on 03-23-2024 BUN Normal 7-18 [facility] Comment on above: Result Comment: Canc elled via OM: Order cancelled - Patient discharged Performed By: #### L 500.2500, L100.0100 ####[facility] [address] [place], [address] BUN/CRE Normal 10-20 [facility] Comment on above: Result Comment: Canc elled via OM: Order cancelled - Patient discharged Performed By: #### L 500.2500, L100.0100 ####[facility] [address] [place], [address] CA,Total Normal 8.5-10.1 [facility] Comment on above: Result Comment: Canc elled via OM: Order cancelled - Patient discharged Performed By: #### L 500.2500, L100.0100 ####[facility] [address] [place], [address] CL Normal 98-107 [facility] Comment on above: Result Comment: Canc elled via OM: Order cancelled - Patient discharged Performed By: #### L 500.2500, L100.0100 ####[facility] [address] [place], [address] CO2 Normal 21.0-32.0 [facility] Comment on above: Result Comment: Canc elled via OM: Order cancelled - Patient discharged Performed By: #### L 500.2500, L100.0100 ####[facility] [address] [place], [address] CREAT,SERUM Normal 0.55-1.02 [facility] Comment on above: Result Comment: Canc elled via OM: Order cancelled - Patient discharged Performed By: #### L 500.2500, L100.0100 ####[facility] [address] [place], [address] EST GFR Normal >60 [facility] Comment on above: Result Comment: Canc elled via OM: Order cancelled - Patient discharged Performed By: #### L 500.2500, L100.0100 ####[facility] [address] [place], [address] EST GFR - AA Normal >60 [facility] Comment on above: Result Comment: Canc elled via OM: Order cancelled - Patient discharged Performed By: #### L 500.2500, L100.0100 ####[facility] [address] [place], [address] GAP Normal 5-15 [facility] Comment on above: Result Comment: Canc elled via OM: Order cancelled - Patient discharged Performed By: #### L 500.2500, L100.0100 ####[facility] [address] [place], [address] GLU Normal 74-106 [facility] Comment on above: Result Comment: Canc elled via OM: Order cancelled - Patient discharged Performed By: #### L 500.2500, L100.0100 ####[facility] [address] [place], [address] Potassium Normal 3.5-5.1 [facility] Comment on above: Result Comment: Canc elled via OM: Order cancelled - Patient discharged Performed By: #### L 500.2500, L100.0100 ####[facility] [address] [place], [address] Basic Metabolic Profile (BMP) Normal 136-145 [facility] Comment on above: Result Comment: Canc elled via OM: Order cancelled - Patient discharged Performed By: #### L 500.2500, L100.0100 ####[facility] [address] [place], [address] CBC W/Diff, Automatedon 07-2 Absolute Neut Normal 2.0-7.7 [facility] Comment on above: Result Comment: Canc elled via OM: Order cancelled - Patient discharged Performed By: #### L 500.2500, L100.0100 ####[facility] [address] [place], [address] HCT Normal 37-47 [facility] Comment on above: Result Comment: Canc elled via OM: Order cancelled - Patient discharged Performed By: #### L 500.2500, L100.0100 ####[facility] [address] [place], [address] HGB Normal 12.0-15.0 [facility] Comment on above: Result Comment: Canc elled via OM: Order cancelled - Patient discharged Performed By: #### L 500.2500, L100.0100 ####[facility] [address] [place], [address] MCH Normal 27.0-32.0 [facility] Comment on above: Result Comment: Canc elled via OM: Order cancelled - Patient discharged Performed By: #### L 500.2500, L100.0100 ####[facility] [address] [place], [address] MCHC Normal 32-36 [facility] Comment on above: Result Comment: Canc elled via OM: Order cancelled - Patient discharged Performed By: #### L 500.2500, L100.0100 ####[facility] [address] [place], [address] MCV Normal 81-99 [facility] Comment on above: Result Comment: Canc elled via OM: Order cancelled - Patient discharged Performed By: #### L 500.2500, L100.0100 ####[facility] [address] [place], [address] NEUT% Normal 47-70 [facility] Comment on above: Result Comment: Canc elled via OM: Order cancelled - Patient discharged Performed By: #### L 500.2500, L100.0100 ####[facility] [address] [place], [address] PLT Normal 150-450 [facility] Comment on above: Result Comment: Canc elled via OM: Order cancelled - Patient discharged Performed By: #### L 500.2500, L100.0100 ####[facility] [address] [place], [address] RBC Normal 4.2-5.4 [facility] Comment on above: Result Comment: Canc elled via OM: Order cancelled - Patient discharged Performed By: #### L 500.2500, L100.0100 ####[facility] [address] [place], [address] RDW CV Normal 11.6-14.6 [facility] Comment on above: Result Comment: Canc elled via OM: Order cancelled - Patient discharged Performed By: #### L 500.2500, L100.0100 ####[facility] [address] [place], [address] RDW SD Normal 35.1-43.9 [facility] Comment on above: Result Comment: Canc elled via OM: Order cancelled - Patient discharged Performed By: #### L 500.2500, L100.0100 ####[facility] [address] [place], [address] WBC Normal 4.4-11.0 [facility] Comment on above: Result Comment: Canc elled via OM: Order cancelled - Patient discharged Performed By: #### L 500.2500, L100.0100 ####[facility] [address] [place], [address] Basic Metabolic Profile (BMP )on 03-22-2024 BUN Normal 7-18 [facility] Comment on above: Result Comment: Canc elled via OM: Order cancelled - Patient discharged Performed By: #### L 100.0100, L500.2500 ####[facility] [address] [place], [address] BUN/CRE Normal 10-20 [facility] Comment on above: Result Comment: Canc elled via OM: Order cancelled - Patient discharged Performed By: #### L 100.0100, L500.2500 ####[facility] [address] [place], [address] CA,Total Normal 8.5-10.1 [facility] Comment on above: Result Comment: Canc elled via OM: Order cancelled - Patient discharged Performed By: #### L 100.0100, L500.2500 ####[facility] [address] [place], [address] CL Normal 98-107 [facility] Comment on above: Result Comment: Canc elled via OM: Order cancelled - Patient discharged Performed By: #### L 100.0100, L500.2500 ####[facility] [address] [place], [address] CO2 Normal 21.0-32.0 [facility] Comment on above: Result Comment: Canc elled via OM: Order cancelled - Patient discharged Performed By: #### L 100.0100, L500.2500 ####[facility] [address] [place], [address] CREAT,SERUM Normal 0.55-1.02 [facility] Comment on above: Result Comment: Canc elled via OM: Order cancelled - Patient discharged Performed By: #### L 100.0100, L500.2500 ####[facility] [address] [place], [address] EST GFR Normal >60 [facility] Comment on above: Result Comment: Canc elled via OM: Order cancelled - Patient discharged Performed By: #### L 100.0100, L500.2500 ####[facility] [address] [place], [address] EST GFR - AA Normal >60 [facility] Comment on above: Result Comment: Canc elled via OM: Order cancelled - Patient discharged Performed By: #### L 100.0100, L500.2500 ####[facility] [address] [place], [address] GAP Normal 5-15 [facility] Comment on above: Result Comment: Canc elled via OM: Order cancelled - Patient discharged Performed By: #### L 100.0100, L500.2500 ####[facility] [address] [place], [address] GLU Normal 74-106 [facility] Comment on above: Result Comment: Canc elled via OM: Order cancelled - Patient discharged Performed By: #### L 100.0100, L500.2500 ####[facility] [address] [place], [address] Potassium Normal 3.5-5.1 [facility] Comment on above: Result Comment: Canc elled via OM: Order cancelled - Patient discharged Performed By: #### L 100.0100, L500.2500 ####[facility] [address] [place], [address] Basic Metabolic Profile (BMP) Normal 136-145 [facility] Comment on above: Result Comment: Canc elled via OM: Order cancelled - Patient discharged Performed By: #### L 100.0100, L500.2500 ####[facility] [address] [place], [address] CBC W/Diff, Automatedon 07-2 Absolute Neut Normal 2.0-7.7 [facility] Comment on above: Result Comment: Canc elled via OM: Order cancelled - Patient discharged Performed By: #### L 100.0100, L500.2500 ####[facility] [address] [place], [address] HCT Normal 37-47 [facility] Comment on above: Result Comment: Canc elled via OM: Order cancelled - Patient discharged Performed By: #### L 100.0100, L500.2500 ####[facility] [address] [place], [address] HGB Normal 12.0-15.0 [facility] Comment on above: Result Comment: Canc elled via OM: Order cancelled - Patient discharged Performed By: #### L 100.0100, L500.2500 ####[facility] [address] [place], [address] MCH Normal 27.0-32.0 [facility] Comment on above: Result Comment: Canc elled via OM: Order cancelled - Patient discharged Performed By: #### L 100.0100, L500.2500 ####[facility] [address] [place], [address] MCHC Normal 32-36 [facility] Comment on above: Result Comment: Canc elled via OM: Order cancelled - Patient discharged Performed By: #### L 100.0100, L500.2500 ####[facility] [address] [place], [address] MCV Normal 81-99 [facility] Comment on above: Result Comment: Canc elled via OM: Order cancelled - Patient discharged Performed By: #### L 100.0100, L500.2500 ####[facility] [address] [place], [address] NEUT% Normal 47-70 [facility] Comment on above: Result Comment: Canc elled via OM: Order cancelled - Patient discharged Performed By: #### L 100.0100, L500.2500 ####[facility] [address] [place], [address] PLT Normal 150-450 [facility] Comment on above: Result Comment: Canc elled via OM: Order cancelled - Patient discharged Performed By: #### L 100.0100, L500.2500 ####[facility] [address] [place], [address] RBC Normal 4.2-5.4 [facility] Comment on above: Result Comment: Canc elled via OM: Order cancelled - Patient discharged Performed By: #### L 100.0100, L500.2500 ####[facility] [address] [place], [address] RDW CV Normal 11.6-14.6 [facility] Comment on above: Result Comment: Canc elled via OM: Order cancelled - Patient discharged Performed By: #### L 100.0100, L500.2500 ####[facility] [address] [place], [address] RDW SD Normal 35.1-43.9 [facility] Comment on above: Result Comment: Canc elled via OM: Order cancelled - Patient discharged Performed By: #### L 100.0100, L500.2500 ####[facility] [address] [place], [address] WBC Normal 4.4-11.0 [facility] Comment on above: Result Comment: Canc elled via OM: Order cancelled - Patient discharged Performed By: #### L 100.0100, L500.2500 ####[facility] [address] [place], [address] Basic Metabolic Profile (BMP )on 03-21-2024 BUN Normal 7-18 [facility] Comment on above: Result Comment: Canc elled via OM: Order cancelled - Patient discharged Performed By: #### L 500.2500, L100.0100 ####[facility] [address] [place], [address] BUN/CRE Normal 10-20 [facility] Comment on above: Result Comment: Canc elled via OM: Order cancelled - Patient discharged Performed By: #### L 500.2500, L100.0100 ####[facility] [address] [place], [address] CA,Total Normal 8.5-10.1 [facility] Comment on above: Result Comment: Canc elled via OM: Order cancelled - Patient discharged Performed By: #### L 500.2500, L100.0100 ####[facility] [address] [place], [address] CL Normal 98-107 [facility] Comment on above: Result Comment: Canc elled via OM: Order cancelled - Patient discharged Performed By: #### L 500.2500, L100.0100 ####[facility] [address] [place], [address] CO2 Normal 21.0-32.0 [facility] Comment on above: Result Comment: Canc elled via OM: Order cancelled - Patient discharged Performed By: #### L 500.2500, L100.0100 ####[facility] [address] [place], [address] CREAT,SERUM Normal 0.55-1.02 [facility] Comment on above: Result Comment: Canc elled via OM: Order cancelled - Patient discharged Performed By: #### L 500.2500, L100.0100 ####[facility] [address] [place], [address] EST GFR Normal >60 [facility] Comment on above: Result Comment: Canc elled via OM: Order cancelled - Patient discharged Performed By: #### L 500.2500, L100.0100 ####[facility] [address] [place], [address] EST GFR - AA Normal >60 [facility] Comment on above: Result Comment: Canc elled via OM: Order cancelled - Patient discharged Performed By: #### L 500.2500, L100.0100 ####[facility] [address] [place], [address] GAP Normal 5-15 [facility] Comment on above: Result Comment: Canc elled via OM: Order cancelled - Patient discharged Performed By: #### L 500.2500, L100.0100 ####[facility] [address] [place], [address] GLU Normal 74-106 [facility] Comment on above: Result Comment: Canc elled via OM: Order cancelled - Patient discharged Performed By: #### L 500.2500, L100.0100 ####[facility] [address] [place], [address] Potassium Normal 3.5-5.1 [facility] Comment on above: Result Comment: Canc elled via OM: Order cancelled - Patient discharged Performed By: #### L 500.2500, L100.0100 ####[facility] [address] [place], [address] Basic Metabolic Profile (BMP) Normal 136-145 [facility] Comment on above: Result Comment: Canc elled via OM: Order cancelled - Patient discharged Performed By: #### L 500.2500, L100.0100 ####[facility] [address] [place], [address] CBC W/Diff, Automatedon 07-2 0-2023 Absolute Neut Normal 2.0-7.7 [facility] Comment on above: Result Comment: Canc elled via OM: Order cancelled - Patient discharged Performed By: #### L 500.2500, L100.0100 ####[facility] [address] [place], [address] HCT Normal 37-47 [facility] Comment on above: Result Comment: Canc elled via OM: Order cancelled - Patient discharged Performed By: #### L 500.2500, L100.0100 ####[facility] [address] [place], [address] HGB Normal 12.0-15.0 [facility] Comment on above: Result Comment: Canc elled via OM: Order cancelled - Patient discharged Performed By: #### L 500.2500, L100.0100 ####[facility] [address] [place], [address] MCH Normal 27.0-32.0 [facility] Comment on above: Result Comment: Canc elled via OM: Order cancelled - Patient discharged Performed By: #### L 500.2500, L100.0100 ####[facility] [address] [place], [address] MCHC Normal 32-36 [facility] Comment on above: Result Comment: Canc elled via OM: Order cancelled - Patient discharged Performed By: #### L 500.2500, L100.0100 ####[facility] [address] [place], [address] MCV Normal 81-99 [facility] Comment on above: Result Comment: Canc elled via OM: Order cancelled - Patient discharged Performed By: #### L 500.2500, L100.0100 ####[facility] [address] [place], [address] NEUT% Normal 47-70 [facility] Comment on above: Result Comment: Canc elled via OM: Order cancelled - Patient discharged Performed By: #### L 500.2500, L100.0100 ####[facility] [address] [place], [address] PLT Normal 150-450 [facility] Comment on above: Result Comment: Canc elled via OM: Order cancelled - Patient discharged Performed By: #### L 500.2500, L100.0100 ####[facility] [address] [place], [address] RBC Normal 4.2-5.4 [facility] Comment on above: Result Comment: Canc elled via OM: Order cancelled - Patient discharged Performed By: #### L 500.2500, L100.0100 ####[facility] [address] [place], [address] RDW CV Normal 11.6-14.6 [facility] Comment on above: Result Comment: Canc elled via OM: Order cancelled - Patient discharged Performed By: #### L 500.2500, L100.0100 ####[facility] [address] [place], [address] RDW SD Normal 35.1-43.9 [facility] Comment on above: Result Comment: Canc elled via OM: Order cancelled - Patient discharged Performed By: #### L 500.2500, L100.0100 ####[facility] [address] [place], [address] WBC Normal 4.4-11.0 [facility] Comment on above: Result Comment: Canc elled via OM: Order cancelled - Patient discharged Performed By: #### L 500.2500, L100.0100 ####[facility] [address] [place], [address] Basic Metabolic Profile (BMP )on 03-20-2024 BUN Normal 7-18 [facility] Comment on above: Result Comment: Canc elled via OM: Order cancelled - Patient discharged Performed By: #### L 100.0100, L500.2500 ####[facility] [address] [place], [address] BUN/CRE Normal 10-20 [facility] Comment on above: Result Comment: Canc elled via OM: Order cancelled - Patient discharged Performed By: #### L 100.0100, L500.2500 ####[facility] [address] [place], [address] CA,Total Normal 8.5-10.1 [facility] Comment on above: Result Comment: Canc elled via OM: Order cancelled - Patient discharged Performed By: #### L 100.0100, L500.2500 ####[facility] [address] [place], [address] CL Normal 98-107 [facility] Comment on above: Result Comment: Canc elled via OM: Order cancelled - Patient discharged Performed By: #### L 100.0100, L500.2500 ####[facility] [address] [place], [address] CO2 Normal 21.0-32.0 [facility] Comment on above: Result Comment: Canc elled via OM: Order cancelled - Patient discharged Performed By: #### L 100.0100, L500.2500 ####[facility] [address] [place], [address] CREAT,SERUM Normal 0.55-1.02 [facility] Comment on above: Result Comment: Canc elled via OM: Order cancelled - Patient discharged Performed By: #### L 100.0100, L500.2500 ####[facility] [address] [place], [address] EST GFR Normal >60 [facility] Comment on above: Result Comment: Canc elled via OM: Order cancelled - Patient discharged Performed By: #### L 100.0100, L500.2500 ####[facility] [address] [place], [address] EST GFR - AA Normal >60 [facility] Comment on above: Result Comment: Canc elled via OM: Order cancelled - Patient discharged Performed By: #### L 100.0100, L500.2500 ####[facility] [address] [place], [address] GAP Normal 5-15 [facility] Comment on above: Result Comment: Canc elled via OM: Order cancelled - Patient discharged Performed By: #### L 100.0100, L500.2500 ####[facility] [address] [place], [address] GLU Normal 74-106 [facility] Comment on above: Result Comment: Canc elled via OM: Order cancelled - Patient discharged Performed By: #### L 100.0100, L500.2500 ####[facility] [address] [place], [address] Potassium Normal 3.5-5.1 [facility] Comment on above: Result Comment: Canc elled via OM: Order cancelled - Patient discharged Performed By: #### L 100.0100, L500.2500 ####[facility] [address] [place], [address] Basic Metabolic Profile (BMP) Normal 136-145 [facility] Comment on above: Result Comment: Canc elled via OM: Order cancelled - Patient discharged Performed By: #### L 100.0100, L500.2500 ####[facility] [address] [place], [address] CBC W/Diff, Automatedon 07- Absolute Neut Normal 2.0-7.7 [facility] Comment on above: Result Comment: Canc elled via OM: Order cancelled - Patient discharged Performed By: #### L 100.0100, L500.2500 ####[facility] [address] [place], [address] HCT Normal 37-47 [facility] Comment on above: Result Comment: Canc elled via OM: Order cancelled - Patient discharged Performed By: #### L 100.0100, L500.2500 ####[facility] [address] [place], [address] HGB Normal 12.0-15.0 [facility] Comment on above: Result Comment: Canc elled via OM: Order cancelled - Patient discharged Performed By: #### L 100.0100, L500.2500 ####[facility] [address] [place], [address] MCH Normal 27.0-32.0 [facility] Comment on above: Result Comment: Canc elled via OM: Order cancelled - Patient discharged Performed By: #### L 100.0100, L500.2500 ####[facility] [address] [place], [address] MCHC Normal 32-36 [facility] Comment on above: Result Comment: Canc elled via OM: Order cancelled - Patient discharged Performed By: #### L 100.0100, L500.2500 ####[facility] [address] [place], [address] MCV Normal 81-99 [facility] Comment on above: Result Comment: Canc elled via OM: Order cancelled - Patient discharged Performed By: #### L 100.0100, L500.2500 ####[facility] [address] [place], [address] NEUT% Normal 47-70 [facility] Comment on above: Result Comment: Canc elled via OM: Order cancelled - Patient discharged Performed By: #### L 100.0100, L500.2500 ####[facility] [address] [place], [address] PLT Normal 150-450 [facility] Comment on above: Result Comment: Canc elled via OM: Order cancelled - Patient discharged Performed By: #### L 100.0100, L500.2500 ####[facility] [address] [place], [address] RBC Normal 4.2-5.4 [facility] Comment on above: Result Comment: Canc elled via OM: Order cancelled - Patient discharged Performed By: #### L 100.0100, L500.2500 ####[facility] [address] [place], [address] RDW CV Normal 11.6-14.6 [facility] Comment on above: Result Comment: Canc elled via OM: Order cancelled - Patient discharged Performed By: #### L 100.0100, L500.2500 ####[facility] [address] [place], [address] RDW SD Normal 35.1-43.9 [facility] Comment on above: Result Comment: Canc elled via OM: Order cancelled - Patient discharged Performed By: #### L 100.0100, L500.2500 ####[facility] [address] [place], [address] WBC Normal 4.4-11.0 [facility] Comment on above: Result Comment: Canc elled via OM: Order cancelled - Patient discharged Performed By: #### L 100.0100, L500.2500 ####[facility] [address] [place], [address] Culture, Blood (WB)on 2023 CUB Blood cultures x2 from two different sites No growth in 5 days. Normal [facility] Comment on above: Performed By: #### M 200.1000 ####[facility] [address] [place], [address] Basic Metabolic Profile (BMP )on 03-19-2024 BUN Normal -18 [facility] Comment on above: Result Comment: Canc elled via OM: Order cancelled - Patient discharged Performed By: #### L 500.2500, L100.0100 ####[facility] [address] [place], [address] BUN/CRE Normal 10-20 [facility] Comment on above: Result Comment: Canc elled via OM: Order cancelled - Patient discharged Performed By: #### L 500.2500, L100.0100 ####[facility] [address] [place], [address] CA,Total Normal 8.5-10.1 [facility] Comment on above: Result Comment: Canc elled via OM: Order cancelled - Patient discharged Performed By: #### L 500.2500, L100.0100 ####[facility] [address] [place], [address] CL Normal 98-107 [facility] Comment on above: Result Comment: Canc elled via OM: Order cancelled - Patient discharged Performed By: #### L 500.2500, L100.0100 ####[facility] [address] [place], [address] CO2 Normal 21.0-32.0 [facility] Comment on above: Result Comment: Canc elled via OM: Order cancelled - Patient discharged Performed By: #### L 500.2500, L100.0100 ####[facility] [address] [place], [address] CREAT,SERUM Normal 0.55-1.02 [facility] Comment on above: Result Comment: Canc elled via OM: Order cancelled - Patient discharged Performed By: #### L 500.2500, L100.0100 ####[facility] [address] [place], [address] EST GFR Normal >60 [facility] Comment on above: Result Comment: Canc elled via OM: Order cancelled - Patient discharged Performed By: #### L 500.2500, L100.0100 ####[facility] [address] [place], [address] EST GFR - AA Normal >60 [facility] Comment on above: Result Comment: Canc elled via OM: Order cancelled - Patient discharged Performed By: #### L 500.2500, L100.0100 ####[facility] [address] [place], [address] GAP Normal 5-15 [facility] Comment on above: Result Comment: Canc elled via OM: Order cancelled - Patient discharged Performed By: #### L 500.2500, L100.0100 ####[facility] [address] [place], [address] GLU Normal 74-106 [facility] Comment on above: Result Comment: Canc elled via OM: Order cancelled - Patient discharged Performed By: #### L 500.2500, L100.0100 ####[facility] [address] [place], [address] Potassium Normal 3.5-5.1 [facility] Comment on above: Result Comment: Canc elled via OM: Order cancelled - Patient discharged Performed By: #### L 500.2500, L100.0100 ####[facility] [address] [place], [address] Basic Metabolic Profile (BMP) Normal 136-145 [facility] Comment on above: Result Comment: Canc elled via OM: Order cancelled - Patient discharged Performed By: #### L 500.2500, L100.0100 ####[facility] [address] [place], [address] CBC W/Diff, Automatedon - Absolute Neut Normal 2.0-7.7 [facility] Comment on above: Result Comment: Canc elled via OM: Order cancelled - Patient discharged Performed By: #### L 500.2500, L100.0100 ####[facility] [address] [place], [address] HCT Normal 37-47 [facility] Comment on above: Result Comment: Canc elled via OM: Order cancelled - Patient discharged Performed By: #### L 500.2500, L100.0100 ####[facility] [address] [place], [address] HGB Normal 12.0-15.0 [facility] Comment on above: Result Comment: Canc elled via OM: Order cancelled - Patient discharged Performed By: #### L 500.2500, L100.0100 ####[facility] [address] [place], [address] MCH Normal 27.0-32.0 [facility] Comment on above: Result Comment: Canc elled via OM: Order cancelled - Patient discharged Performed By: #### L 500.2500, L100.0100 ####[facility] [address] [place], [address] MCHC Normal 32-36 [facility] Comment on above: Result Comment: Canc elled via OM: Order cancelled - Patient discharged Performed By: #### L 500.2500, L100.0100 ####[facility] [address] [place], [address] MCV Normal 81-99 [facility] Comment on above: Result Comment: Canc elled via OM: Order cancelled - Patient discharged Performed By: #### L 500.2500, L100.0100 ####[facility] [address] [place], [address] NEUT% Normal 47-70 [facility] Comment on above: Result Comment: Canc elled via OM: Order cancelled - Patient discharged Performed By: #### L 500.2500, L100.0100 ####[facility] [address] [place], [address] PLT Normal 150-450 [facility] Comment on above: Result Comment: Canc elled via OM: Order cancelled - Patient discharged Performed By: #### L 500.2500, L100.0100 ####[facility] [address] [place], [address] RBC Normal 4.2-5.4 [facility] Comment on above: Result Comment: Canc elled via OM: Order cancelled - Patient discharged Performed By: #### L 500.2500, L100.0100 ####[facility] [address] [place], [address] RDW CV Normal 11.6-14.6 [facility] Comment on above: Result Comment: Canc elled via OM: Order cancelled - Patient discharged Performed By: #### L 500.2500, L100.0100 ####[facility] [address] [place], [address] RDW SD Normal 35.1-43.9 [facility] Comment on above: Result Comment: Canc elled via OM: Order cancelled - Patient discharged Performed By: #### L 500.2500, L100.0100 ####[facility] [address] [place], [address] WBC Normal 4.4-11.0 [facility] Comment on above: Result Comment: Canc elled via OM: Order cancelled - Patient discharged Performed By: #### L 500.2500, L100.0100 ####[facility] [address] [place], [address] Basic Metabolic Profile (BMP )on 03-18-2024 BUN Normal 7-18 [facility] Comment on above: Result Comment: Canc elled via OM: Order cancelled - Patient discharged Performed By: #### L 500.2500, L100.0100 ####[facility] [address] [place], [address] BUN/CRE Normal 10-20 [facility] Comment on above: Result Comment: Canc elled via OM: Order cancelled - Patient discharged Performed By: #### L 500.2500, L100.0100 ####[facility] [address] [place], [address] CA,Total Normal 8.5-10.1 [facility] Comment on above: Result Comment: Canc elled via OM: Order cancelled - Patient discharged Performed By: #### L 500.2500, L100.0100 ####[facility] [address] [place], [address] CL Normal 98-107 [facility] Comment on above: Result Comment: Canc elled via OM: Order cancelled - Patient discharged Performed By: #### L 500.2500, L100.0100 ####[facility] [address] [place], [address] CO2 Normal 21.0-32.0 [facility] Comment on above: Result Comment: Canc elled via OM: Order cancelled - Patient discharged Performed By: #### L 500.2500, L100.0100 ####[facility] [address] [place], [address] CREAT,SERUM Normal 0.55-1.02 [facility] Comment on above: Result Comment: Canc elled via OM: Order cancelled - Patient discharged Performed By: #### L 500.2500, L100.0100 ####[facility] [address] [place], [address] EST GFR Normal >60 [facility] Comment on above: Result Comment: Canc elled via OM: Order cancelled - Patient discharged Performed By: #### L 500.2500, L100.0100 ####[facility] [address] [place], [address] EST GFR - AA Normal >60 [facility] Comment on above: Result Comment: Canc elled via OM: Order cancelled - Patient discharged Performed By: #### L 500.2500, L100.0100 ####[facility] [address] [place], [address] GAP Normal 5-15 [facility] Comment on above: Result Comment: Canc elled via OM: Order cancelled - Patient discharged Performed By: #### L 500.2500, L100.0100 ####[facility] [address] [place], [address] GLU Normal 74-106 [facility] Comment on above: Result Comment: Canc elled via OM: Order cancelled - Patient discharged Performed By: #### L 500.2500, L100.0100 ####[facility] [address] [place], [address] Potassium Normal 3.5-5.1 [facility] Comment on above: Result Comment: Canc elled via OM: Order cancelled - Patient discharged Performed By: #### L 500.2500, L100.0100 ####[facility] [address] [place], [address] Basic Metabolic Profile (BMP) Normal 136-145 [facility] Comment on above: Result Comment: Canc elled via OM: Order cancelled - Patient discharged Performed By: #### L 500.2500, L100.0100 ####[facility] [address] [place], [address] CBC W/Diff, Automatedon - Absolute Neut Normal 2.0-7.7 [facility] Comment on above: Result Comment: Canc elled via OM: Order cancelled - Patient discharged Performed By: #### L 500.2500, L100.0100 ####[facility] [address] [place], [address] HCT Normal 37-47 [facility] Comment on above: Result Comment: Canc elled via OM: Order cancelled - Patient discharged Performed By: #### L 500.2500, L100.0100 ####[facility] [address] [place], [address] HGB Normal 12.0-15.0 [facility] Comment on above: Result Comment: Canc elled via OM: Order cancelled - Patient discharged Performed By: #### L 500.2500, L100.0100 ####[facility] [address] [place], [address] MCH Normal 27.0-32.0 [facility] Comment on above: Result Comment: Canc elled via OM: Order cancelled - Patient discharged Performed By: #### L 500.2500, L100.0100 ####[facility] [address] [place], [address] MCHC Normal 32-36 [facility] Comment on above: Result Comment: Canc elled via OM: Order cancelled - Patient discharged Performed By: #### L 500.2500, L100.0100 ####[facility] [address] [place], [address] MCV Normal 81-99 [facility] Comment on above: Result Comment: Canc elled via OM: Order cancelled - Patient discharged Performed By: #### L 500.2500, L100.0100 ####[facility] [address] [place], [address] NEUT% Normal 47-70 [facility] Comment on above: Result Comment: Canc elled via OM: Order cancelled - Patient discharged Performed By: #### L 500.2500, L100.0100 ####[facility] [address] [place], [address] PLT Normal 150-450 [facility] Comment on above: Result Comment: Canc elled via OM: Order cancelled - Patient discharged Performed By: #### L 500.2500, L100.0100 ####[facility] [address] [place], [address] RBC Normal 4.2-5.4 [facility] Comment on above: Result Comment: Canc elled via OM: Order cancelled - Patient discharged Performed By: #### L 500.2500, L100.0100 ####[facility] [address] [place], [address] RDW CV Normal 11.6-14.6 [facility] Comment on above: Result Comment: Canc elled via OM: Order cancelled - Patient discharged Performed By: #### L 500.2500, L100.0100 ####[facility] [address] [place], [address] RDW SD Normal 35.1-43.9 [facility] Comment on above: Result Comment: Canc elled via OM: Order cancelled - Patient discharged Performed By: #### L 500.2500, L100.0100 ####[facility] [address] [place], [address] WBC Normal 4.4-11.0 [facility] Comment on above: Result Comment: Canc elled via OM: Order cancelled - Patient discharged Performed By: #### L 500.2500, L100.0100 ####[facility] [address] [place], [address] Basic Metabolic Profile (BMP )on 03-17-2024 BUN/CRE 24.2 RATIO High 10-20 [facility] Comment on above: Performed By: #### L 100.0100, L500.2500 ####[facility] [address] [place], [address] CA,Total 9.8 mg/dL Normal 8.5-10.1 [facility] Comment on above: Performed By: #### L 100.0100, L500.2500 ####[facility] [address] [place], [address] Chloride [Moles/Vol] 106 mmol/L Normal 98-107 [facility] Comment on above: Performed By: #### L 100.0100, L500.2500 ####[facility] [address] [place], [address] CO2 [Moles/Vol] 28.0 mmol/L Normal 21.0-32.0 [facility] Comment on above: Performed By: #### L 100.0100, L500.2500 ####[facility] [address] [place], [address] Creatinine [Mass/Vol] 0.91 mg/dL Normal 0.55-1.02 [facility] Comment on above: Result Comment: The validity of the calculated GFR GFRAA in patients over70 years has not been determined. Clinical correlation isessential. Performed By: #### L 100.0100, L500.2500 ####[facility] [address] [place], [address] ECRCL 52.65 ml/min Normal [facility] Comment on above: Performed By: #### L 100.0100, L500.2500 ####[facility] [address] [place], [address] EST GFR - AA 77 mL/min Normal >60 [facility] Comment on above: Result Comment: Afri can [place]e GFR Calc Performed By: #### L 100.0100, L500.2500 ####[facility] [address] [place], [address] GAP 5 Normal 5-15 [facility] Comment on above: Performed By: #### L 100.0100, L500.2500 ####[facility] [address] [place], [address] GFR/1.73 sq M.predicted among non-blacks MDRD (S/P/Bld) [Vol rate/Area] 63 mL/min/{1.73_m2} Normal >60 [facility] Comment on above: Result Comment: Non- GFR Calc Performed By: #### L 100.0100, L500.2500 ####[facility] [address] [place], [address] Glucose [Mass/Vol] 105 mg/dL Normal 74-106 [facility] Comment on above: Result Comment: Fast ing Glucose result from 100 to 125 mg/dLsuggests IMPAIRED HOMEOSTASIS per A.D.A. criteria. Performed By: #### L 100.0100, L500.2500 ####[facility] [address] [place], [address] Potassium [Moles/Vol] 3.9 mmol/L Normal 3.5-5.1 [facility] Comment on above: Performed By: #### L 100.0100, L500.2500 ####[facility] [address] [place], [address] Sodium [Moles/Vol] 139 mmol/L Normal 136-145 [facility] Comment on above: Performed By: #### L 100.0100, L500.2500 ####[facility] [address] [place], [address] Urea nitrogen [Mass/Vol] 22 mg/dL High 7-18 [facility] Comment on above: Performed By: #### L 100.0100, L500.2500 ####[facility] [address] [place], [address] CBC W/Diff, Automatedon 07-1 6-2023 Absolute Lymph 2.05 X10 3/uL Normal 0.83-4.51 [facility] Comment on above: Performed By: #### L 100.0100, L500.2500 ####[facility] [address] [place], [address] Absolute Neut 4.4 X10 3/uL Normal 2.0-7.7 [facility] Comment on above: Performed By: #### L 100.0100, L500.2500 ####[facility] [address] [place], [address] Basophils/100 WBC (Bld) 0.4 % Normal 0-1 [facility] Comment on above: Performed By: #### L 100.0100, L500.2500 ####[facility] [address] [place], [address] Eosinophils/100 WBC (Bld) 3.9 % Normal 0-5 [facility] Comment on above: Performed By: #### L 100.0100, L500.2500 ####[facility] [address] [place], [address] Erythrocyte distribution width (RBC) [Ratio] 13.2 % Normal 11.6-14.6 [facility] Comment on above: Performed By: #### L 100.0100, L500.2500 ####[facility] [address] [place], [address] Hematocrit (Bld) [Volume fraction] 34.2 % Low 37-47 [facility] Comment on above: Performed By: #### L 100.0100, L500.2500 ####[facility] [address] [place], [address] Hemoglobin (Bld) [Mass/Vol] 10.7 g/dL Low 12.0-15.0 [facility] Comment on above: Performed By: #### L 100.0100, L500.2500 ####[facility] [address] [place], [address] IG% 0.400 Normal 0.0-0.9 [facility] Comment on above: Result Comment: IG% - Immature Granulocytes (promyelocytes, myelocytes andmetamyelocytes) > 1% indicates that a LEFT SHIFT is Present. Performed By: #### L 100.0100, L500.2500 ####[facility] [address] [place], [address] Lymphocytes/100 WBC (Bld) 27.3 % Normal 19-41 [facility] Comment on above: Performed By: #### L 100.0100, L500.2500 ####[facility] [address] [place], [address] MCH (RBC) [Entitic mass] 30.1 pg Normal 27.0-32.0 [facility] Comment on above: Performed By: #### L 100.0100, L500.2500 ####[facility] [address] [place], [address] MCHC (RBC) [Mass/Vol] 31.3 g/dL Low 32-36 [facility] Comment on above: Performed By: #### L 100.0100, L500.2500 ####[facility] [address] [place], [address] MCV (RBC) [Entitic vol] 96.1 fL Normal 81-99 [facility] Comment on above: Performed By: #### L 100.0100, L500.2500 ####[facility] [address] [place], [address] Monocytes/100 WBC (Bld) 9.0 % Normal 0-10 [facility] Comment on above: Performed By: #### L 100.0100, L500.2500 ####[facility] [address] [place], [address] Neutrophils/100 WBC (Bld) 59.0 % Normal 47-70 [facility] Comment on above: Performed By: #### L 100.0100, L500.2500 ####[facility] [address] [place], [address] Nucleated RBC (Bld) [#/Vol] 0 10*3/uL Normal 0-5 [facility] Comment on above: Performed By: #### L 100.0100, L500.2500 ####[facility] [address] [place], [address] Platelet mean volume (Bld) [Entitic vol] 10.3 fL Normal 6.2-12.0 [facility] Comment on above: Performed By: #### L 100.0100, L500.2500 ####[facility] [address] [place], [address] Platelets (Bld) [#/Vol] 255 10*3/uL Normal 150-450 [facility] Comment on above: Performed By: #### L 100.0100, L500.2500 ####[facility] [address] [place], [address] RBC (Bld) [#/Vol] 3.56 10*6/uL Low 4.2-5.4 [facility] Comment on above: Performed By: #### L 100.0100, L500.2500 ####[facility] [address] [place], [address] RDW SD 46.9 fl High 35.1-43.9 [facility] Comment on above: Performed By: #### L 100.0100, L500.2500 ####[facility] [address] [place], [address] WBC (Bld) [#/Vol] 7.5 10*3/uL Normal 4.4-11.0 [facility] Comment on above: Performed By: #### L 100.0100, L500.2500 ####[facility] [address] [place], [address] Consultation - Infectious Dx on 03-16-2024 Consultation - Infectious Dx Normal [facility] Abdomen/Pelvis without Conto n 03-15-2024 Abdomen/Pelvis without Cont Normal [facility] Basic Metabolic Profile (BMP )on 03-15-2024 BUN/CRE 29.4 RATIO High 10-20 [facility] Comment on above: Performed By: #### L 501.2300, L100.0100, L500.2500, L501.5200 ####[facility] [address] [place], [address] CA,Total 8.7 mg/dL Normal 8.5-10.1 [facility] Comment on above: Performed By: #### L 501.2300, L100.0100, L500.2500, L501.5200 ####[facility] [address] [place], [address] Chloride [Moles/Vol] 109 mmol/L High 98-107 [facility] Comment on above: Performed By: #### L 501.2300, L100.0100, L500.2500, L501.5200 ####[facility] [address] [place], [address] CO2 [Moles/Vol] 25.0 mmol/L Normal 21.0-32.0 [facility] Comment on above: Performed By: #### L 501.2300, L100.0100, L500.2500, L501.5200 ####[facility] [address] [place], [address] Creatinine [Mass/Vol] 1.09 mg/dL High 0.55-1.02 [facility] Comment on above: Result Comment: The validity of the calculated GFR GFRAA in patients over70 years has not been determined. Clinical correlation isessential. Performed By: #### L 501.2300, L100.0100, L500.2500, L501.5200 ####[facility] [address] [place], [address] ECRCL 43.96 ml/min Normal [facility] Comment on above: Performed By: #### L 501.2300, L100.0100, L500.2500, L501.5200 ####[facility] [address] [place], [address] EST GFR - AA 62 mL/min Normal >60 [facility] Comment on above: Result Comment: Afri can [place] GFR Calc Performed By: #### L 501.2300, L100.0100, L500.2500, L501.5200 ####[facility] [address] [place], [address] GAP 4 Low 5-15 [facility] Comment on above: Performed By: #### L 501.2300, L100.0100, L500.2500, L501.5200 ####[facility] [address] [place], [address] GFR/1.73 sq M.predicted among non-blacks MDRD (S/P/Bld) [Vol rate/Area] 52 mL/min/{1.73_m2} Low >60 [facility] Comment on above: Result Comment: Non- GFR Calc Performed By: #### L 501.2300, L100.0100, L500.2500, L501.5200 ####[facility] [address] [place], [address] Glucose [Mass/Vol] 102 mg/dL Normal 74-106 [facility] Comment on above: Result Comment: Fast ing Glucose result from 100 to 125 mg/dLsuggests IMPAIRED HOMEOSTASIS per A.D.A. criteria. Performed By: #### L 501.2300, L100.0100, L500.2500, L501.5200 ####[facility] [address] [place], [address] Potassium [Moles/Vol] 3.9 mmol/L Normal 3.5-5.1 [facility] Comment on above: Performed By: #### L 501.2300, L100.0100, L500.2500, L501.5200 ####[facility] [address] [place], [address] Sodium [Moles/Vol] 138 mmol/L Normal 136-145 [facility] Comment on above: Performed By: #### L 501.2300, L100.0100, L500.2500, L501.5200 ####[facility] [address] [place], [address] Urea nitrogen [Mass/Vol] 32 mg/dL High 7-18 [facility] Comment on above: Performed By: #### L 501.2300, L100.0100, L500.2500, L501.5200 ####[facility] [address] [place], [address] CBC W/Diff, Automatedon 07- Absolute Lymph 2.41 X10 3/uL Normal 0.83-4.51 [facility] Comment on above: Performed By: #### L 501.2300, L100.0100, L500.2500, L501.5200 ####[facility] [address] [place], [address] Absolute Neut 3.2 X10 3/uL Normal 2.0-7.7 [facility] Comment on above: Performed By: #### L 501.2300, L100.0100, L500.2500, L501.5200 ####[facility] [address] [place], [address] Basophils/100 WBC (Bld) 0.7 % Normal 0-1 [facility] Comment on above: Performed By: #### L 501.2300, L100.0100, L500.2500, L501.5200 ####[facility] [address] [place], [address] Eosinophils/100 WBC (Bld) 5.1 % High 0-5 [facility] Comment on above: Performed By: #### L 501.2300, L100.0100, L500.2500, L501.5200 ####[facility] [address] [place], [address] Erythrocyte distribution width (RBC) [Ratio] 13.4 % Normal 11.6-14.6 [facility] Comment on above: Performed By: #### L 501.2300, L100.0100, L500.2500, L501.5200 ####[facility] [address] [place], [address] Hematocrit (Bld) [Volume fraction] 34.9 % Low 37-47 [facility] Comment on above: Performed By: #### L 501.2300, L100.0100, L500.2500, L501.5200 ####[facility] [address] [place], [address] Hemoglobin (Bld) [Mass/Vol] 10.5 g/dL Low 12.0-15.0 [facility] Comment on above: Performed By: #### L 501.2300, L100.0100, L500.2500, L501.5200 ####[facility] [address] [place], [address] IG% 0.300 Normal 0.0-0.9 [facility] Comment on above: Result Comment: IG% - Immature Granulocytes (promyelocytes, myelocytes andmetamyelocytes) > 1% indicates that a LEFT SHIFT is Present. Performed By: #### L 501.2300, L100.0100, L500.2500, L501.5200 ####[facility] [address] [place], [address] Lymphocytes/100 WBC (Bld) 36.1 % Normal 19-41 [facility] Comment on above: Performed By: #### L 501.2300, L100.0100, L500.2500, L501.5200 ####[facility] [address] [place], [address] MCH (RBC) [Entitic mass] 30.1 pg Normal 27.0-32.0 [facility] Comment on above: Performed By: #### L 501.2300, L100.0100, L500.2500, L501.5200 ####[facility] [address] [place], [address] MCHC (RBC) [Mass/Vol] 30.1 g/dL Low 32-36 [facility] Comment on above: Performed By: #### L 501.2300, L100.0100, L500.2500, L501.5200 ####[facility] [address] [place], [address] MCV (RBC) [Entitic vol] 100.0 fL High 81-99 [facility] Comment on above: Performed By: #### L 501.2300, L100.0100, L500.2500, L501.5200 ####[facility] [address] [place], [address] Monocytes/100 WBC (Bld) 9.3 % Normal 0-10 [facility] Comment on above: Performed By: #### L 501.2300, L100.0100, L500.2500, L501.5200 ####[facility] [address] [place], [address] Neutrophils/100 WBC (Bld) 48.5 % Normal 47-70 [facility] Comment on above: Performed By: #### L 501.2300, L100.0100, L500.2500, L501.5200 ####[facility] [address] [place], [address] Nucleated RBC (Bld) [#/Vol] 0 10*3/uL Normal 0-5 [facility] Comment on above: Performed By: #### L 501.2300, L100.0100, L500.2500, L501.5200 ####[facility] [address] [place], [address] Platelet mean volume (Bld) [Entitic vol] 10.2 fL Normal 6.2-12.0 [facility] Comment on above: Performed By: #### L 501.2300, L100.0100, L500.2500, L501.5200 ####[facility] [address] [place], [address] Platelets (Bld) [#/Vol] 252 10*3/uL Normal 150-450 [facility] Comment on above: Performed By: #### L 501.2300, L100.0100, L500.2500, L501.5200 ####[facility] [address] [place], [address] RBC (Bld) [#/Vol] 3.49 10*6/uL Low 4.2-5.4 [facility] Comment on above: Performed By: #### L 501.2300, L100.0100, L500.2500, L501.5200 ####[facility] [address] [place], [address] RDW SD 48.9 fl High 35.1-43.9 [facility] Comment on above: Performed By: #### L 501.2300, L100.0100, L500.2500, L501.5200 ####[facility] [address] [place], [address] WBC (Bld) [#/Vol] 6.7 10*3/uL Normal 4.4-11.0 [facility] Comment on above: Performed By: #### L 501.2300, L100.0100, L500.2500, L501.5200 ####[facility] [address] [place], [address] Magnesiumon 03-15-2024 Magnesium [Mass/Vol] 1.9 mg/dL Normal 1.6-2.6 [facility] Comment on above: Performed By: #### L 501.2300, L100.0100, L500.2500, L501.5200 ####[facility] [address] [place], [address] Phosphoruson 03-15-2024 Phosphate [Mass/Vol] 3.6 mg/dL Normal 2.5-4.9 [facility] Comment on above: Performed By: #### L 501.2300, L100.0100, L500.2500, L501.5200 ####[facility] [address] [place], [address] Basic Metabolic Profile (BMP )on 03-14-2024 BUN/CRE 24.4 RATIO High 10-20 [facility] Comment on above: Performed By: #### L 500.2500, L503.6005, L100.0100 ####[facility] [address] [place], [address] CA,Total 9.6 mg/dL Normal 8.5-10.1 [facility] Comment on above: Performed By: #### L 500.2500, L503.6005, L100.0100 ####[facility] [address] [place], [address] Chloride [Moles/Vol] 108 mmol/L High 98-107 [facility] Comment on above: Performed By: #### L 500.2500, L503.6005, L100.0100 ####[facility] [address] [place], [address] CO2 [Moles/Vol] 27.0 mmol/L Normal 21.0-32.0 [facility] Comment on above: Performed By: #### L 500.2500, L503.6005, L100.0100 ####[facility] [address] [place], [address] Creatinine [Mass/Vol] 1.35 mg/dL High 0.55-1.02 [facility] Comment on above: Result Comment: The validity of the calculated GFR GFRAA in patients over70 years has not been determined. Clinical correlation isessential. Performed By: #### L 500.2500, L503.6005, L100.0100 ####[facility] [address] [place], [address] ECRCL 35.49 ml/min Normal [facility] Comment on above: Performed By: #### L 500.2500, L503.6005, L100.0100 ####[facility] [address] [place], [address] EST GFR - AA 49 mL/min Low >60 [facility] Comment on above: Result Comment: Afri can Nepalese GFR Calc Performed By: #### L 500.2500, L503.6005, L100.0100 ####[facility] [address] [place], [address] GAP 3 Low 5-15 [facility] Comment on above: Performed By: #### L 500.2500, L503.6005, L100.0100 ####[facility] [address] [place], [address] GFR/1.73 sq M.predicted among non-blacks MDRD (S/P/Bld) [Vol rate/Area] 40 mL/min/{1.73_m2} Low >60 [facility] Comment on above: Result Comment: Non- GFR Calc Performed By: #### L 500.2500, L503.6005, L100.0100 ####[facility] [address] [place], [address] Glucose [Mass/Vol] 136 mg/dL High 74-106 [facility] Comment on above: Result Comment: Fast ing Glucose result greater than or equal to 126 mg/dLsuggests DIABETES MELLITUS per A.D.A. criteria. Performed By: #### L 500.2500, L503.6005, L100.0100 ####[facility] [address] [place], [address] Potassium [Moles/Vol] 3.8 mmol/L Normal 3.5-5.1 [facility] Comment on above: Performed By: #### L 500.2500, L503.6005, L100.0100 ####[facility] [address] [place], [address] Sodium [Moles/Vol] 138 mmol/L Normal 136-145 [facility] Comment on above: Performed By: #### L 500.2500, L503.6005, L100.0100 ####[facility] [address] [place], [address] Urea nitrogen [Mass/Vol] 33 mg/dL High 7-18 [facility] Comment on above: Performed By: #### L 500.2500, L503.6005, L100.0100 ####[facility] [address] [place], [address] CBC W/Diff, Automatedon 07-09 04-2023 Absolute Lymph 2.54 X10 3/uL Normal 0.83-4.51 [facility] Comment on above: Performed By: #### L 500.2500, L503.6005, L100.0100 ####[facility] [address] [place], [address] Absolute Neut 3.9 X10 3/uL Normal 2.0-7.7 [facility] Comment on above: Performed By: #### L 500.2500, L503.6005, L100.0100 ####[facility] [address] [place], [address] Basophils/100 WBC (Bld) 0.4 % Normal 0-1 [facility] Comment on above: Performed By: #### L 500.2500, L503.6005, L100.0100 ####[facility] [address] [place], [address] Eosinophils/100 WBC (Bld) 4.4 % Normal 0-5 [facility] Comment on above: Performed By: #### L 500.2500, L503.6005, L100.0100 ####[facility] [address] [place], [address] Erythrocyte distribution width (RBC) [Ratio] 13.3 % Normal 11.6-14.6 [facility] Comment on above: Performed By: #### L 500.2500, L503.6005, L100.0100 ####[facility] [address] [place], [address] Hematocrit (Bld) [Volume fraction] 37.1 % Normal 37-47 [facility] Comment on above: Performed By: #### L 500.2500, L503.6005, L100.0100 ####[facility] [address] [place], [address] Hemoglobin (Bld) [Mass/Vol] 11.2 g/dL Low 12.0-15.0 [facility] Comment on above: Performed By: #### L 500.2500, L503.6005, L100.0100 ####[facility] [address] [place], [address] IG% 0.300 Normal 0.0-0.9 [facility] Comment on above: Result Comment: IG% - Immature Granulocytes (promyelocytes, myelocytes andmetamyelocytes) > 1% indicates that a LEFT SHIFT is Present. Performed By: #### L 500.2500, L503.6005, L100.0100 ####[facility] [address] [place], [address] Lymphocytes/100 WBC (Bld) 34.2 % Normal 19-41 [facility] Comment on above: Performed By: #### L 500.2500, L503.6005, L100.0100 ####[facility] [address] [place], [address] MCH (RBC) [Entitic mass] 29.9 pg Normal 27.0-32.0 [facility] Comment on above: Performed By: #### L 500.2500, L503.6005, L100.0100 ####[facility] [address] [place], [address] MCHC (RBC) [Mass/Vol] 30.2 g/dL Low 32-36 [facility] Comment on above: Performed By: #### L 500.2500, L503.6005, L100.0100 ####[facility] [address] [place], [address] MCV (RBC) [Entitic vol] 99.2 fL High 81-99 [facility] Comment on above: Performed By: #### L 500.2500, L503.6005, L100.0100 ####[facility] [address] [place], [address] Monocytes/100 WBC (Bld) 8.0 % Normal 0-10 [facility] Comment on above: Performed By: #### L 500.2500, L503.6005, L100.0100 ####[facility] [address] [place], [address] Neutrophils/100 WBC (Bld) 52.7 % Normal 47-70 [facility] Comment on above: Performed By: #### L 500.2500, L503.6005, L100.0100 ####[facility] [address] [place], [address] Nucleated RBC (Bld) [#/Vol] 0 10*3/uL Normal 0-5 [facility] Comment on above: Performed By: #### L 500.2500, L503.6005, L100.0100 ####[facility] [address] [place], [address] Platelet mean volume (Bld) [Entitic vol] 10.6 fL Normal 6.2-12.0 [facility] Comment on above: Performed By: #### L 500.2500, L503.6005, L100.0100 ####[facility] [address] [place], [address] Platelets (Bld) [#/Vol] 283 10*3/uL Normal 150-450 [facility] Comment on above: Performed By: #### L 500.2500, L503.6005, L100.0100 ####[facility] [address] [place], [address] RBC (Bld) [#/Vol] 3.74 10*6/uL Low 4.2-5.4 [facility] Comment on above: Performed By: #### L 500.2500, L503.6005, L100.0100 ####[facility] [address] [place], [address] RDW SD 48.2 fl High 35.1-43.9 [facility] Comment on above: Performed By: #### L 500.2500, L503.6005, L100.0100 ####[facility] [address] [place], [address] WBC (Bld) [#/Vol] 7.4 10*3/uL Normal 4.4-11.0 [facility] Comment on above: Performed By: #### L 500.2500, L503.6005, L100.0100 ####[facility] [address] [place], [address] Emergency Department Summary on 03-14-2024 Emergency Department Summary Normal [facility] H AND P Exam - Hospitaliston 03-14-2024 H&P Exam - Hospitalist Normal [facility] Lactic Acidon 03-14-2024 Lactate [Moles/Vol] 0.9 mmol/L Normal 0.4-1.9 [facility] Comment on above: Order Comment: Y Performed By: #### L 500.2500, L503.6005, L100.0100 ####[facility] [address] [place], [address] Urine Cultureon 03-14-2024 URC Normal [facility] Comment on above: Performed By: #### M 100.2200, L400.2010 ####[facility] [address] [place], [address] Cardiology Visit Reporton Cardiology Visit Report Normal [facility] Urinalysis, Routine (Dipstic k)on 03-11-2024 BILIRUBIN URINE Negative Normal Negative [facility] Comment on above: Order Comment: CLEAN CATCH Performed By: #### M 100, L4.2010 ####[facility] [address] [place], [address] Clarity (U) Sl. Cloudy Normal Clear [facility] Comment on above: Order Comment: CLEAN CATCH Performed By: #### M , L4.2010 ####[facility] [address] [place], [address] Color (U) Yellow Normal Yellow [facility] Comment on above: Order Comment: CLEAN CATCH Performed By: #### M , L4.2010 ####[facility] [address] [place], [address] GLUCOSE, UR Normal Normal Normal [facility] Comment on above: Order Comment: CLEAN CATCH Performed By: #### M , L4.2010 ####[facility] [address] [place], [address] KETONE UR Negative Normal Negative [facility] Comment on above: Order Comment: CLEAN CATCH Performed By: #### M 100, L4.2010 ####[facility] [address] [place], [address] LEUK ESTERASE 500 /ul Abnormal Negative [facility] Comment on above: Order Comment: CLEAN CATCH Performed By: #### M 100, L4 ####[facility] [address] [place], [address] Nitrite Ql (U) Positive Abnormal Negative [facility] Comment on above: Order Comment: CLEAN CATCH Performed By: #### M 100.2199, L4 ####[facility] [address] [place], [address] OCCULT BLOOD-UR 25 /ul Abnormal Negative [facility] Comment on above: Order Comment: CLEAN CATCH Performed By: #### M 100.2199, L4 ####[facility] [address] [place], [address] pH UR 6.5 Normal 5.0 - 8.0 [facility] Comment on above: Order Comment: CLEAN CATCH Performed By: #### M 100.2199, L4 ####[facility] [address] [place], [address] PROT DIPSTX 30 mg/dl Abnormal Negative [facility] Comment on above: Order Comment: CLEAN CATCH Performed By: #### M , L4 ####[facility] [address] [place], [address] SP.GR. DIPSTX 1.010 Normal 1.002-1.030 [facility] Comment on above: Order Comment: CLEAN CATCH Performed By: #### M , L4 ####[facility] [address] [place], [address] UROBILI Normal Normal Normal [facility] Comment on above: Order Comment: CLEAN CATCH Performed By: #### M , L4 ####[facility] [address] [place], [address] Absolute lymphocyte countOrd ered By: Mary Cobos on 09-24-2023 Lymphocytes Auto (Unsp spec) [#/Vol] 1.16 10*3/uL 0.83-4.51 [facility] Automated lymphocyte count a s percentage of total leukocytesOrdered By: Mary Cobos on 09-24-2023 Lymphocytes/100 WBC Auto (Unsp spec) 13.2 % 19-41 [facility] Basophil percentageOrdered B y: Mary Cobos on 09-24-2023 Basophils/100 WBC (Bld) 0.5 % 0-1 [facility] Chloride [Moles/Vol] 108 mmol/L 98-107 [facility] Eosinophils/100 WBC (Bld) 0.0 % 0-5 [facility] Glucose [Mass/Vol] 138 mg/dL 74-106 [facility] Comment on above: Fasting Glucose resu lt greater than or equal to 126 mg/dL suggests DIABETES MELLITUS per A.D.A. criteria. Hemoglobin (Bld) [Mass/Vol] 9.6 g/dL 12.0-15.0 [facility] Monocytes/100 WBC (Bld) 5.8 % 0-10 [facility] Neutrophils (Bld) [#/Vol] 6.7 10*3/uL 2.0-7.7 [facility] Neutrophils/100 WBC (Bld) 76.5 % 47-70 [facility] Potassium [Moles/Vol] 3.7 mmol/L 3.5-5.1 [facility] Sodium [Moles/Vol] 138 mmol/L 136-145 [facility] WBC (Bld) [#/Vol] 8.8 10*3/uL 4.4-11.0 [facility] Determination of erythrocyte mean corpuscular volume (MCV)Ordered By: Mary Cobos on 09-24-2023 MCV (RBC) [Entitic vol] 97.5 fL 81-99 [facility] Erythrocyte distribution wid th ratioOrdered By: Mary Cobos on 09-24-2023 Erythrocyte distribution width (RBC) [Ratio] 13.0 % 11.6-14.6 [facility] Erythrocyte distribution wid th standard deviationOrdered By: Mary Cobos on 09-24-2023 Erythrocyte distribution width (RBC) [Entitic vol] 47.1 fL 35.1-43.9 [facility] Hematocrit Auto (Bld) [Volum e fraction]Ordered By: Mary Cobos on 09-24-2023 Hematocrit (Bld) [Volume fraction] 31.0 % 37-47 [facility] Immature granulocytes/100 WB C Auto (Bld)Ordered By: Mary Cobos on 09-24-2023 Immature granulocytes/100 WBC (Bld) 4.000 % 0.0-0.9 [facility] Comment on above: IG% - Immature Granu locytes (promyelocytes, myelocytes and metamyelocytes) > 1% indicates that a LEFT SHIFT is Present. Laboratory - Chemistry and C hemistry - challengeOrdered By: Mary Cobos on 09-24-2023 CO2 [Moles/Vol] 25.0 mmol/L 21.0-32.0 [facility] Urea nitrogen/Creatinine [Mass ratio] 36.1 mg/mg 10-20 [facility] Laboratory - Hematology and Cell countsOrdered By: Mary Cobos on 09-24-2023 MCH (RBC) [Entitic mass] 30.2 pg 27.0-32.0 [facility] MCHC (RBC) [Mass/Vol] 31.0 g/dL 32-36 [facility] Nucleated RBC/100 WBC (Bld) [Ratio] 0 % 0-5 [facility] Platelets (Bld) [#/Vol] 335 10*3/uL 150-450 [facility] No Panel InformationOrdered By: Mary Cobos on 09-24-2023 Estimated Creatinine Clearance Calc 44.47 ml/min [facility] Estimated GFR (MDRD) Amer 63 mL/min >60 [facility] Comment on above: GFR Calc Estimated GFR (MDRD) Non-Af Amer 52 mL/min >60 [facility] Comment on above: Non- GFR Calc Platelet mean volume Roge-Ec ker (Bld) [Entitic vol]Ordered By: Mary Cobos on 09-24-2023 Platelet mean volume (Bld) [Entitic vol] 9.4 fL 6.2-12.0 [facility] RBC Auto (Bld) [#/Vol]Ordere d By: Mary Cobos on 09-24-2023 RBC (Bld) [#/Vol] 3.18 10*6/uL 4.2-5.4 [facility] Serum or plasma calcium lory urement (mass/volume)Ordered By: Mary Cobos on 09-24-2023 Calcium [Mass/Vol] 9.4 mg/dL 8.5-10.1 [facility] Serum or plasma creatinine m easurement (mass/volume)Ordered By: Mary Cobos on 09-24-2023 Creatinine [Mass/Vol] 1.08 mg/dL 0.55-1.02 [facility] Comment on above: The validity of the calculated GFR & GFRAA in patients over 70 years has not been determined. Clinical correlation is essential. Serum or plasma urea nitroge n measurement (mass/volume)Ordered By: Mary Cobos on 09-24-2023 Urea nitrogen [Mass/Vol] 39 mg/dL 7-18 [facility] Thin prep Papanicolaou smear with manual screeningOrdered By: Mary Cobos on 09-24-2023 Thin prep Papanicolaou smear with manual screening 5 5-15 [facility] Assessment of wrist artery p atency prior to arterial punctureOrdered By: Luna Gray on 09-22-2023 Arterial patency Wrist artery --pre arterial puncture Positive [facility] Base excessOrdered By: Luna Gray on 09-22-2023 Base excess Calc (BldV) [Moles/Vol] -4 mmol/L -2-2 [facility] Basophil percentageOrdered B y: Luna Gray on 09-22-2023 Basophil percentage 3.1 mg/dL 2.5-4.9 [facility] Bilirubin [Mass/Vol] 0.50 mg/dL 0.20-1.00 [facility] Comment on above: For patients on eltr ombopag therapy, use of Dimension [place] TBIL is not recommended. Protein [Mass/Vol] 7.6 g/dL 6.4-8.2 [facility] Basophil percentage 23 mmol/L [facility] Basophils/100 WBC (Bld) 97 % 95-99 [facility] Laboratory - Chemistry and C hemistry - challengeOrdered By: Luna Gray on 09-22-2023 Albumin/Globulin [Mass ratio] 0.5 {ratio} 0.9-2.4 [facility] ALP [Catalytic activity/Vol] 127 U/L 45-117 [facility] ALT [Catalytic activity/Vol] 23 U/L 13-56 [facility] Globulin (S) [Mass/Vol] 5.1 g/dL 2.2-4.2 [facility] Magnesium [Mass/Vol] 2.2 mg/dL 1.6-2.6 [facility] Measurement, pHOrdered By: Bryce Gray on 09-22-2023 pH (Unsp spec) 7.33 [pH] 7.35-7.45 [facility] No Panel InformationOrdered By: Luna Gray on 09-22-2023 Blood Gas Bicarbonate Actual 21.7 mmol/L 22- [facility] Blood Gas Oxygen Percent 3.0 [facility] Blood Gas Sample Site L Radial [facility] Blood Gas Specimen Type ART [facility] Blood Gas Vent Mode Not entered [facility] Oxygen Delivery Device Cannula [facility] Partial pressure of carbon d ioxide measurementOrdered By: Luna Gray on 09-22-2023 CO2 (Dial fld) [Partial pressure] 41.4 mmHg 35-45 [facility] Partial pressure of oxygen m easurementOrdered By: Luna Gray on 09-22-2023 Oxygen [Partial pressure] in Capillary blood by Transcutaneous O2 monitor 101 mmHG 75-100 [facility] Serum or plasma thyroid stim ulating hormone (TSH) measurement (units/volume)Ordered By: Luna Gray on 09-22-2023 TSH Qn 0.95 uIU/mL 0.358-3.74 [facility] Thin prep Papanicolaou smear with manual screeningOrdered By: Luna Gray on 09-22-2023 Thin prep Papanicolaou smear with manual screening 2.5 g/dL 3.2-5.0 [facility] Thin prep Papanicolaou smear with manual screening 18 U/L 15-37 [facility] Absolute lymphocyte countOrd ered By: Kianna Ruiz on 09-21-2023 Lymphocytes Auto (Unsp spec) [#/Vol] 2.07 10*3/uL 0.83-4.51 [facility] Automated lymphocyte count a s percentage of total leukocytesOrdered By: Kianna Ruiz on 09-21-2023 Lymphocytes/100 WBC Auto (Unsp spec) 13.1 % 19- [facility] Basophil percentageOrdered B y: Kianna Ruiz on 09-21-2023 Lactate [Moles/Vol] 1.1 mmol/L 0.4-2.0 [facility] Basophils/100 WBC (Bld) 0.4 % 0-1 [facility] Chloride [Moles/Vol] 104 mmol/L 98-107 [facility] Eosinophils/100 WBC (Bld) 0.4 % 0-5 [facility] Glucose [Mass/Vol] 129 mg/dL 74-106 [facility] Comment on above: Fasting Glucose resu lt greater than or equal to 126 mg/dL suggests DIABETES MELLITUS per A.D.A. criteria. Hemoglobin (Bld) [Mass/Vol] 11.7 g/dL 12.0-15.0 [facility] Monocytes/100 WBC (Bld) 9.8 % 0-10 [facility] Neutrophils (Bld) [#/Vol] 11.9 10*3/uL 2.0-7.7 [facility] Neutrophils/100 WBC (Bld) 75.8 % 47-70 [facility] Potassium [Moles/Vol] 4.0 mmol/L 3.5-5.1 [facility] Sodium [Moles/Vol] 133 mmol/L 136-145 [facility] WBC (Bld) [#/Vol] 15.8 10*3/uL 4.4-11.0 [facility] Blood manual differential co mment interpretation (narrative result)Ordered By: Kianna Ruiz on 09-21-2023 Manual differential comment Jakub (Bld) [Interp] SCANNED [facility] Comment on above: AUTO DIFF OK Determination of erythrocyte mean corpuscular volume (MCV)Ordered By: Kianna Ruiz on 09-21-2023 MCV (RBC) [Entitic vol] 96.9 fL 81-99 [facility] Erythrocyte distribution wid th ratioOrdered By: Kianna Ruiz on 09-21-2023 Erythrocyte distribution width (RBC) [Ratio] 12.8 % 11.6-14.6 [facility] Erythrocyte distribution wid th standard deviationOrdered By: Kianna Ruiz on 09-21-2023 Erythrocyte distribution width (RBC) [Entitic vol] 45.1 fL 35.1-43.9 [facility] Hematocrit Auto (Bld) [Volum e fraction]Ordered By: Kianna Ruiz on 09-21-2023 Hematocrit (Bld) [Volume fraction] 37.5 % 37-47 [facility] Immature granulocytes/100 WB C Auto (Bld)Ordered By: Kianna Ruiz on 09-21-2023 Immature granulocytes/100 WBC (Bld) 0.500 % 0.0-0.9 [facility] Comment on above: IG% - Immature Granu locytes (promyelocytes, myelocytes and metamyelocytes) > 1% indicates that a LEFT SHIFT is Present. Laboratory - Chemistry and C hemistry - challengeOrdered By: Kianna Ruiz on 09-21-2023 CO2 [Moles/Vol] 21.0 mmol/L 21.0-32.0 [facility] Urea nitrogen/Creatinine [Mass ratio] 24.8 mg/mg 10-20 [facility] Laboratory - Hematology and Cell countsOrdered By: Kianna Ruiz on 09-21-2023 MCH (RBC) [Entitic mass] 30.2 pg 27.0-32.0 [facility] MCHC (RBC) [Mass/Vol] 31.2 g/dL 32-36 [facility] Nucleated RBC/100 WBC (Bld) [Ratio] 0 % 0-5 [facility] Platelets (Bld) [#/Vol] 279 10*3/uL 150-450 [facility] Laboratory - Microbiology an d Antimicrobial susceptibilityOrdered By: Kianna Ruiz on 09-21-2023 SARS-CoV-2 (COVID-19) RNA BELINDA+probe Ql (Unsp spec) [facility] No Panel InformationOrdered By: Nancy Alcocer on 09-21-2023 D-Dimer Quantitative (PE/DVT) 5.02 FEU/ug/m 0.27-0.49 [facility] Comment on above: D-Dimer ELEVATED (>0 .49): Additional studies and clinicalassessments are indicated to conclude diagnosis of:Deep Vein Thrombosis (DVT) or Pulmonary Embolism (PE)CRITICAL VALUE VERIFIED. CALLED TO ANAIS MAGANA09/22/23 0000 Sy Padilla.RESULTS READ BACK BY SAME . No Panel InformationOrdered By: Kianna Ruiz on 09-21-2023 Bacteria Detection (PCR) Staphylococcus epidermidis [facility] Bacteria Detection (PCR) mecA Resistance Marker [facility] Estimated Creatinine Clearance Calc 41.38 ml/min [facility] Estimated GFR (MDRD) Amer 55 mL/min >60 [facility] Comment on above: GFR Calc Estimated GFR (MDRD) Non-Af Amer 46 mL/min >60 [facility] Comment on above: Non- GFR Calc Troponin I High Sensitivity 30 pg/mL 3.0-54.0 [facility] Comment on above: Please Note: New Lien t Units and Gender Specific Reference Ranges. For more information see Policy Stat Procedure [place] High Sensitivity Troponin (TNIH) and attachments. Platelet mean volume Roge-Ec ker (Bld) [Entitic vol]Ordered By: Kianna Ruiz on 09-21-2023 Platelet mean volume (Bld) [Entitic vol] 10.3 fL 6.2-12.0 [facility] RBC Auto (Bld) [#/Vol]Ordere d By: Kianna Ruiz on 09-21-2023 RBC (Bld) [#/Vol] 3.87 10*6/uL 4.2-5.4 [facility] Review by pathologistOrdered By: Kianna Ruiz on 09-21-2023 Pathologist review Jakub (Unsp spec) [Interp] Reviewed [facility] Comment on above: Previous reported re sult: Ashley howe Edited by: RGOLIZ on 09/23/23:1426Neutrophilic leukocytosis.Clinical correlation necessary.Flakito Stevens M.D. 09/23/23 AMENDED REPORT 09/23/23 1426 PATH REV previously reported as: Ashley howe Serum or plasma calcium lory urement (mass/volume)Ordered By: Kianna Ruiz on 09-21-2023 Calcium [Mass/Vol] 9.6 mg/dL 8.5-10.1 [facility] Serum or plasma creatinine m easurement (mass/volume)Ordered By: Kianna Ruiz on 09-21-2023 Creatinine [Mass/Vol] 1.21 mg/dL 0.55-1.02 [facility] Comment on above: The validity of the calculated GFR & GFRAA in patients over 70 years has not been determined. Clinical correlation is essential. Serum or plasma urea nitroge n measurement (mass/volume)Ordered By: Kianna Ruiz on 09-21-2023 Urea nitrogen [Mass/Vol] 30 mg/dL 7-18 [facility] Thin prep Papanicolaou smear with manual screeningOrdered By: Kianna Ruiz on 09-21-2023 Thin prep Papanicolaou smear with manual screening 8 5-15 [facility] Absolute lymphocyte countOrd ered By: Dr. Jeter on 12-30-2022 Lymphocytes Auto (Unsp spec) [#/Vol] 2.85 10*3/uL 0.83-4.51 [facility] Basophil percentageOrdered B y: Dr. Jeter on 12-30-2022 Basophils/100 WBC (Bld) 0.3 % 0-1 [facility] Chloride [Moles/Vol] 104 mmol/L 98-107 [facility] Eosinophils/100 WBC (Bld) 1.3 % 0-5 [facility] Glucose [Mass/Vol] 114 mg/dL 74-106 [facility] Comment on above: Fasting Glucose resu lt from 100 to 125 mg/dL suggests IMPAIRED HOMEOSTASIS per A.D.A. criteria. Neutrophils (Bld) [#/Vol] 5.4 10*3/uL 2.0-7.7 [facility] Neutrophils/100 WBC (Bld) 59.3 % 47-70 [facility] Potassium [Moles/Vol] 3.9 mmol/L 3.5-5.1 [facility] Sodium [Moles/Vol] 134 mmol/L 136-145 [facility] WBC (Bld) [#/Vol] 9.0 10*3/uL 4.4-11.0 [facility] Blood erythrocytes count (nu mber/volume)Ordered By: Dr. Jeter on 12-30-2022 RBC (Bld) [#/Vol] 3.36 10*6/uL 4.2-5.4 [facility] Blood hemoglobin measurement (mass/volume)Ordered By: Dr. Jeter on 12-30-2022 Hemoglobin (Bld) [Mass/Vol] 10.0 g/dL 12.0-15.0 [facility] Blood lymphocytes/100 leukoc ytesOrdered By: Dr. Jeter on 12-30-2022 Lymphocytes/100 WBC (Bld) 31.6 % 19-41 [facility] Blood monocytes/100 leukocyt esOrdered By: Dr. Jeter on 12-30-2022 Monocytes/100 WBC (Bld) 6.8 % 0-10 [facility] Blood platelet mean volumeOr dered By: Dr. Jeter on 12-30-2022 Platelet mean volume (Bld) [Entitic vol] 10.8 fL 6.2-12.0 [facility] Determination of erythrocyte mean corpuscular volume (MCV)Ordered By: Dr. Jeter on 12-30-2022 MCV (RBC) [Entitic vol] 97.6 fL 81-99 [facility] Hematocrit Auto (Bld) [Volum e fraction]Ordered By: Dr. Jeter on 12-30-2022 Hematocrit (Bld) [Volume fraction] 32.8 % 37-47 [facility] Laboratory - Chemistry and C hemistry - challengeOrdered By: Dr. Jeter on 12-30-2022 CO2 [Moles/Vol] 26.0 mmol/L 21.0-32.0 [facility] Urea nitrogen/Creatinine [Mass ratio] 28.3 mg/mg 10-20 [facility] Laboratory - Hematology and Cell countsOrdered By: Dr. Jeter on 12-30-2022 Erythrocyte distribution width (RBC) [Entitic vol] 55.8 fL 35.1-43.9 [facility] Erythrocyte distribution width (RBC) [Ratio] 15.6 % 11.6-14.6 [facility] Immature granulocytes/100 WBC (Bld) 0.700 % 0.0-0.9 [facility] Comment on above: IG% - Immature Granu locytes (promyelocytes, myelocytes and metamyelocytes) > 1% indicates that a LEFT SHIFT is Present. MCH (RBC) [Entitic mass] 29.8 pg 27.0-32.0 [facility] Nucleated RBC/100 WBC (Bld) [Ratio] 0 % 0-5 [facility] MCHC Auto (RBC) [Mass/Vol]Or dered By: Dr. Jeter on 12-30-2022 MCHC (RBC) [Mass/Vol] 30.5 g/dL 32-36 [facility] No Panel InformationOrdered By: Dr. Jeter on 12-30-2022 Estimated Creatinine Clearance Calc 37.52 ml/min [facility] Estimated GFR (MDRD) Amer 60 mL/min >60 [facility] Comment on above: GFR Calc Estimated GFR (MDRD) Non-Af Amer 50 mL/min >60 [facility] Comment on above: Non- GFR Calc Platelets bldOrdered By: Dr. Jeter on 12-30-2022 Platelets (Bld) [#/Vol] 226 10*3/uL 150-450 [facility] Serum or plasma calcium lory urement (mass/volume)Ordered By: Dr. Jeter on 12-30-2022 Calcium [Mass/Vol] 9.1 mg/dL 8.5-10.1 [facility] Serum or plasma creatinine m easurement (mass/volume)Ordered By: Dr. Jeter on 12-30-2022 Creatinine [Mass/Vol] 1.13 mg/dL 0.55-1.02 [facility] Comment on above: The validity of the calculated GFR & GFRAA in patients over 70 years has not been determined. Clinical correlation is essential. Serum or plasma urea nitroge n measurement (mass/volume)Ordered By: Dr. Jeter on 12-30-2022 Urea nitrogen [Mass/Vol] 32 mg/dL 7-18 [facility] Thin prep Papanicolaou smear with manual screeningOrdered By: Dr. Jeter on 12-30-2022 Thin prep Papanicolaou smear with manual screening 4 5-15 [facility] Laboratory - Microbiology an d Antimicrobial susceptibilityOrdered By: Dr. Ray on 09-26-2022 Bacteria identified Cx Nom (Bld) No growth in 5 days. [facility] Absolute lymphocyte countOrd ered By: Dr. Ji on 09-22-2022 Lymphocytes Auto (Unsp spec) [#/Vol] 1.05 10*3/uL 0.83-4.51 [facility] Basophil percentageOrdered B y: Dr. Ji on 09-22-2022 Basophils/100 WBC (Bld) 0.1 % 0-1 [facility] Bilirubin [Mass/Vol] 0.30 mg/dL 0.20-1.00 [facility] Comment on above: For patients on eltr ombopag therapy, use of Dimension [place] TBIL is not recommended. Chloride [Moles/Vol] 105 mmol/L 98-107 [facility] Eosinophils/100 WBC (Bld) 0.0 % 0-5 [facility] Glucose [Mass/Vol] 128 mg/dL 74-106 [facility] Comment on above: Fasting Glucose resu lt greater than or equal to 126 mg/dL suggests DIABETES MELLITUS per A.D.A. criteria. Neutrophils (Bld) [#/Vol] 8.4 10*3/uL 2.0-7.7 [facility] Neutrophils/100 WBC (Bld) 82.0 % 47-70 [facility] Potassium [Moles/Vol] 3.7 mmol/L 3.5-5.1 [facility] Protein [Mass/Vol] 6.7 g/dL 6.4-8.2 [facility] Sodium [Moles/Vol] 140 mmol/L 136-145 [facility] WBC (Bld) [#/Vol] 10.3 10*3/uL 4.4-11.0 [facility] Blood erythrocytes count (nu mber/volume)Ordered By: Dr. Ji on 09-22-2022 RBC (Bld) [#/Vol] 3.30 10*6/uL 4.2-5.4 [facility] Blood hemoglobin measurement (mass/volume)Ordered By: Dr. Ji on 09-22-2022 Hemoglobin (Bld) [Mass/Vol] 9.8 g/dL 12.0-15.0 [facility] Blood lymphocytes/100 leukoc ytesOrdered By: Dr. Ji on 09-22-2022 Lymphocytes/100 WBC (Bld) 10.2 % 19-41 [facility] Blood monocytes/100 leukocyt esOrdered By: Dr. Ji on 09-22-2022 Monocytes/100 WBC (Bld) 6.1 % 0-10 [facility] Blood platelet mean volumeOr dered By: Dr. Ji on 09-22-2022 Platelet mean volume (Bld) [Entitic vol] 9.4 fL 6.2-12.0 [facility] COVID-19 virus antigen assay Ordered By: Dr. Ji on 09-22-2022 SARS-CoV-2 (COVID-19) Ag IA.rapid Ql (Resp) [facility] Determination of erythrocyte mean corpuscular volume (MCV)Ordered By: Dr. Ji on 09-22-2022 MCV (RBC) [Entitic vol] 96.4 fL 81-99 [facility] Hematocrit Auto (Bld) [Volum e fraction]Ordered By: Dr. Ji on 09-22-2022 Hematocrit (Bld) [Volume fraction] 31.8 % 37-47 [facility] Laboratory - Chemistry and C hemistry - challengeOrdered By: Dr. Ji on 09-22-2022 ALP [Catalytic activity/Vol] 69 U/L 45-117 [facility] ALT [Catalytic activity/Vol] 32 U/L 13-56 [facility] CO2 [Moles/Vol] 29.0 mmol/L 21.0-32.0 [facility] Globulin (S) [Mass/Vol] 4.3 g/dL 2.2-4.2 [facility] Urea nitrogen/Creatinine [Mass ratio] 27.6 mg/mg 10-20 [facility] Laboratory - Hematology and Cell countsOrdered By: Dr. Ji on 09-22-2022 Erythrocyte distribution width (RBC) [Entitic vol] 45.8 fL 35.1-43.9 [facility] Erythrocyte distribution width (RBC) [Ratio] 12.9 % 11.6-14.6 [facility] Immature granulocytes/100 WBC (Bld) 1.600 % 0.0-0.9 [facility] Comment on above: IG% - Immature Granu locytes (promyelocytes, myelocytes and metamyelocytes) > 1% indicates that a LEFT SHIFT is Present. MCH (RBC) [Entitic mass] 29.7 pg 27.0-32.0 [facility] Nucleated RBC/100 WBC (Bld) [Ratio] 0 % 0-5 [facility] MCHC Auto (RBC) [Mass/Vol]Or dered By: Dr. Ji on 09-22-2022 MCHC (RBC) [Mass/Vol] 30.8 g/dL 32-36 [facility] No Panel InformationOrdered By: Dr. Ji on 09-22-2022 Estimated Creatinine Clearance Calc 36.55 ml/min [facility] Estimated GFR (MDRD) Amer 58 mL/min >60 [facility] Comment on above: GFR Calc Estimated GFR (MDRD) Non-Af Amer 48 mL/min >60 [facility] Comment on above: Non- GFR Calc Platelets bldOrdered By: Dr. Ji on 09-22-2022 Platelets (Bld) [#/Vol] 325 10*3/uL 150-450 [facility] Serum or plasma albumin lory urement (mass/volume)Ordered By: Dr. Ji on 09-22-2022 Albumin [Mass/Vol] 2.4 g/dL 3.2-5.0 [facility] Serum or plasma albumin/glob ulin mass ratioOrdered By: Dr. Ji on 09-22-2022 Albumin/Globulin [Mass ratio] 0.6 {ratio} 0.9-2.4 [facility] Serum or plasma calcium lory urement (mass/volume)Ordered By: Dr. Ji on 09-22-2022 Calcium [Mass/Vol] 9.2 mg/dL 8.5-10.1 [facility] Serum or plasma creatinine m easurement (mass/volume)Ordered By: Dr. Ji on 09-22-2022 Creatinine [Mass/Vol] 1.16 mg/dL 0.55-1.02 [facility] Comment on above: The validity of the calculated GFR & GFRAA in patients over 70 years has not been determined. Clinical correlation is essential. Serum or plasma urea nitroge n measurement (mass/volume)Ordered By: Dr. Ji on 09-22-2022 Urea nitrogen [Mass/Vol] 32 mg/dL 7-18 [facility] Thin prep Papanicolaou smear with manual screeningOrdered By: Dr. Ji on 09-22-2022 Thin prep Papanicolaou smear with manual screening 29 U/L 15-37 [facility] Thin prep Papanicolaou smear with manual screening 6 5-15 [facility] No Panel InformationOrdered By: Dr. Watson on 09-21-2022 Streptococcus pneumoniae Antigen (M [facility] Urine Legionella pneumophila antigen detectionOrdered By: Dr. Watson on 09-21-2022 L. pneumophila Ag Ql (U) [facility] Absolute lymphocyte countOrd ered By: Dr. Ray on 09-20-2022 Lymphocytes Auto (Unsp spec) [#/Vol] 1.16 10*3/uL 0.83-4.51 [facility] Basophil percentageOrdered B y: Dr. Ray on 09-20-2022 Basophils/100 WBC (Bld) 0.2 % 0-1 [facility] Chloride [Moles/Vol] 100 mmol/L 98-107 [facility] Eosinophils/100 WBC (Bld) 0.2 % 0-5 [facility] Glucose [Mass/Vol] 141 mg/dL 74-106 [facility] Comment on above: Fasting Glucose resu lt greater than or equal to 126 mg/dL suggests DIABETES MELLITUS per A.D.A. criteria. Lactate [Moles/Vol] 1.0 mmol/L 0.4-2.0 [facility] Neutrophils (Bld) [#/Vol] 11.1 10*3/uL 2.0-7.7 [facility] Neutrophils/100 WBC (Bld) 84.3 % 47-70 [facility] Potassium [Moles/Vol] 4.0 mmol/L 3.5-5.1 [facility] Sodium [Moles/Vol] 134 mmol/L 136-145 [facility] WBC (Bld) [#/Vol] 13.1 10*3/uL 4.4-11.0 [facility] Blood erythrocytes count (nu mber/volume)Ordered By: Dr. Ray on 09-20-2022 RBC (Bld) [#/Vol] 3.76 10*6/uL 4.2-5.4 [facility] Blood hemoglobin measurement (mass/volume)Ordered By: Dr. Ray on 09-20-2022 Hemoglobin (Bld) [Mass/Vol] 11.2 g/dL 12.0-15.0 [facility] Blood lymphocytes/100 leukoc ytesOrdered By: Dr. Ray on 09-20-2022 Lymphocytes/100 WBC (Bld) 8.8 % 19-41 [facility] Blood monocytes/100 leukocyt esOrdered By: Dr. Ray on 09-20-2022 Monocytes/100 WBC (Bld) 5.9 % 0-10 [facility] Blood platelet mean volumeOr dered By: Dr. Ray on 09-20-2022 Platelet mean volume (Bld) [Entitic vol] 9.9 fL 6.2-12.0 [facility] Determination of erythrocyte mean corpuscular volume (MCV)Ordered By: Dr. Ray on 09-20-2022 MCV (RBC) [Entitic vol] 96.3 fL 81-99 [facility] Hematocrit Auto (Bld) [Volum e fraction]Ordered By: Dr. Ray on 09-20-2022 Hematocrit (Bld) [Volume fraction] 36.2 % 37-47 [facility] Influenza virus A and B and SARS-CoV-2 (COVID-19) Ag panel - Upper respiratory specimOrdered By: Dr. Ray on 09-20-2022 SARS-CoV-2 (COVID-19) RNA BELINDA+probe Ql (Resp) [facility] Laboratory - Chemistry and C hemistry - challengeOrdered By: Dr. Ray on 09-20-2022 CO2 [Moles/Vol] 31.0 mmol/L 21.0-32.0 [facility] Urea nitrogen/Creatinine [Mass ratio] 26.6 mg/mg 10-20 [facility] Laboratory - Hematology and Cell countsOrdered By: Dr. Ray on 09-20-2022 Erythrocyte distribution width (RBC) [Entitic vol] 45.5 fL 35.1-43.9 [facility] Erythrocyte distribution width (RBC) [Ratio] 12.8 % 11.6-14.6 [facility] Immature granulocytes/100 WBC (Bld) 0.600 % 0.0-0.9 [facility] Comment on above: IG% - Immature Granu locytes (promyelocytes, myelocytes and metamyelocytes) > 1% indicates that a LEFT SHIFT is Present. MCH (RBC) [Entitic mass] 29.8 pg 27.0-32.0 [facility] Nucleated RBC/100 WBC (Bld) [Ratio] 0 % 0-5 [facility] MCHC Auto (RBC) [Mass/Vol]Or dered By: Dr. Ray on 09-20-2022 MCHC (RBC) [Mass/Vol] 30.9 g/dL 32-36 [facility] No Panel InformationOrdered By: Dr. Ray on 09-20-2022 D-Dimer Quantitative (PE/DVT) 2.99 FEU/ug/m 0.27-0.49 [facility] Comment on above: D-Dimer ELEVATED (>0 .49): Additional studies and clinicalassessments are indicated to conclude diagnosis of:Deep Vein Thrombosis (DVT) or Pulmonary Embolism (PE)CRITICAL VALUE VERIFIED. CALLED TO KIRK FALCON ED09/20/22 1241 Haleigh Liriano.RESULTS READ BACK BY SAME . Estimated Creatinine Clearance Calc 43.26 ml/min [facility] Estimated GFR (MDRD) Amer 71 mL/min >60 [facility] Comment on above: GFR Calc Estimated GFR (MDRD) Non-Af Amer 59 mL/min >60 [facility] Comment on above: Non- GFR Calc Troponin I High Sensitivity 11 pg/mL 3.0-54.0 [facility] Comment on above: Please Note: New Lien t Units and Gender Specific Reference Ranges. For more information see Policy Stat Procedure [place] High Sensitivity Troponin (TNIH) and attachments. Platelets bldOrdered By: Dr. Ray on 09-20-2022 Platelets (Bld) [#/Vol] 289 10*3/uL 150-450 [facility] Serum or plasma calcium lory urement (mass/volume)Ordered By: Dr. Ray on 09-20-2022 Calcium [Mass/Vol] 9.6 mg/dL 8.5-10.1 [facility] Serum or plasma creatinine m easurement (mass/volume)Ordered By: Dr. Ray on 09-20-2022 Creatinine [Mass/Vol] 0.98 mg/dL 0.55-1.02 [facility] Comment on above: The validity of the calculated GFR & GFRAA in patients over 70 years has not been determined. Clinical correlation is essential. Serum or plasma urea nitroge n measurement (mass/volume)Ordered By: Dr. Ray on 09-20-2022 Urea nitrogen [Mass/Vol] 26 mg/dL 7-18 [facility] Thin prep Papanicolaou smear with manual screeningOrdered By: Dr. Ray on 09-20-2022 Thin prep Papanicolaou smear with manual screening 3 5-15 [facility] UA MICROSCOPICon 05-23-2022 BACTERIA 1+ /HPF Abnormal [facility] Comment on above: Performed By: #### U AMIC #### [facility] [address] [place] [address] Mucus Ql (Urine sed) 1+ /LPF Normal [facility] Comment on above: Performed By: #### U AMIC #### [facility] [address] [place] [address] RBC 3 /HPF Normal 0-5 [facility] Comment on above: Performed By: #### U AMIC #### [facility] [address] [place] [address] SQUAMOUS EPITH. CELLS 2 /HPF Normal [facility] Comment on above: Performed By: #### U AMIC #### [facility] [address] [place] [address] WBC (U) [#/Vol] /uL Abnormal 0-5 [facility] Comment on above: Performed By: #### U AMIC #### [facility] [address] [place] [address] WBC CLUMPS MANY Normal [facility] Comment on above: Performed By: #### U AMIC #### [facility] [address] [place] [address] URINALYSISon 05-23-2022 Appearance (U) CLOUDY Normal CLEAR [facility] Comment on above: Performed By: #### U A #### [facility] [address] [place] [address] Bilirubin Ql (U) Negative Normal NEGATIVE [facility] Comment on above: Performed By: #### U A #### [facility] [address] [place] [address] Color (U) YELLOW Normal STRAW,YELLO [facility] Comment on above: Performed By: #### U A #### [facility] [address] [place] [address] Glucose Ql (U) Negative Normal NEGATIVE [facility] Comment on above: Performed By: #### U A #### [facility] [address] [place] [address] Hemoglobin Ql (U) TRACE Abnormal NEGATIVE [facility] [place] Comment on above: Performed By: #### U A #### [facility] [address] [place] [address] Ketones Ql (U) Negative Normal NEGATIVE [facility] Comment on above: Performed By: #### U A #### [facility] [address] [place] [address] Leukocyte esterase Test strip Ql (U) SMALL (1+) Abnormal NEGATIVE [facility] Comment on above: Performed By: #### U A #### [facility] [address] [place] [address] Nitrite Ql (U) Positive Abnormal NEGATIVE [facility] Comment on above: Performed By: #### U A #### [facility] [address] [place] [address] pH (U) 6.0 [pH] Normal 5.0 - 8.0 [facility] Comment on above: Performed By: #### U A #### [facility] [address] [place] [address] Protein Ql (U) TRACE Normal NEGATIVE [facility] Comment on above: Performed By: #### U A #### [facility] [address] [place] [address] Specific gravity (U) [Rel density] 1.020 Normal 1.005 - 1.035 [facility] Comment on above: Performed By: #### U A #### [facility] [address] [place] [address] Urobilinogen (U) [Mass/Vol] mg/dL Normal 0.0 - 1.9 [facility] Comment on above: Performed By: #### U A #### [facility] [address] [place] [address] URINALYSISon 05-22-2022 Appearance (U) Canceled Normal [facility] Comment on above: Order Comment: TEST URINALYSIS WAS CANCELLED, 05/22/2022 07:17 NO 2 IDS. Performed By: #### U A #### [facility] [address] [place] [address] ASCORBIC ACID Canceled Normal [facility] Comment on above: Order Comment: TEST URINALYSIS WAS CANCELLED, 05/22/2022 07:17 NO 2 IDS. Result Comment: Conc entrations > = 20 mg/dL of ascorbic acid can be expected to cause strong interference in the reactions testing for glucose, nitrite and blood. It is recommended to discontinue Vitamin C administration and retest in 10 hours. Performed By: #### U A #### [facility] [address] [place] [address] Bilirubin Ql (U) Canceled Normal [facility] Comment on above: Order Comment: TEST URINALYSIS WAS CANCELLED, 05/22/2022 07:17 NO 2 IDS. Performed By: #### U A #### [facility] [address] [place] [address] Color (U) Canceled Normal [facility] Comment on above: Order Comment: TEST URINALYSIS WAS CANCELLED, 05/22/2022 07:17 NO 2 IDS. Performed By: #### U A #### [facility] [address] [place] [address] Glucose Ql (U) Canceled Normal [facility] Comment on above: Order Comment: TEST URINALYSIS WAS CANCELLED, 05/22/2022 07:17 NO 2 IDS. Performed By: #### U A #### [facility] [address] [place] [address] Hemoglobin Ql (U) Canceled Normal [facility] [place] Comment on above: Order Comment: TEST URINALYSIS WAS CANCELLED, 05/22/2022 07:17 NO 2 IDS. Performed By: #### U A #### [facility] [address] [place] [address] Ketones Ql (U) Canceled Normal [facility] Comment on above: Order Comment: TEST URINALYSIS WAS CANCELLED, 05/22/2022 07:17 NO 2 IDS. Performed By: #### U A #### [facility] [address] [place] [address] Leukocyte esterase Test strip Ql (U) Canceled Normal [facility] Comment on above: Order Comment: TEST URINALYSIS WAS CANCELLED, 05/22/2022 07:17 NO 2 IDS. Performed By: #### U A #### [facility] [address] [place] [address] Nitrite Ql (U) Canceled Normal [facility] Comment on above: Order Comment: TEST URINALYSIS WAS CANCELLED, 05/22/2022 07:17 NO 2 IDS. Performed By: #### U A #### [facility] [address] [place] [address] pH Canceled Normal [facility] Comment on above: Order Comment: TEST URINALYSIS WAS CANCELLED, 05/22/2022 07:17 NO 2 IDS. Performed By: #### U A #### [facility] [address] [place] [address] Protein Ql (U) Canceled Normal [facility] Comment on above: Order Comment: TEST URINALYSIS WAS CANCELLED, 05/22/2022 07:17 NO 2 IDS. Performed By: #### U A #### [facility] [address] [place] [address] Specific gravity (U) [Rel density] Canceled Normal [facility] Comment on above: Order Comment: TEST URINALYSIS WAS CANCELLED, 05/22/2022 07:17 NO 2 IDS. Performed By: #### U A #### [facility] [address] [place] [address] UROBILINOGEN Canceled Normal [facility] Comment on above: Order Comment: TEST URINALYSIS WAS CANCELLED, 05/22/2022 07:17 NO 2 IDS. Performed By: #### U A #### [facility] [address] [place] [address] URINE CULTURE,BACTERIALon URINE CULTURE,BACTERIAL PATIENT: PATRICIA HAWLEY LOCATION: [facility] BILL#: [id number] : 45 AGE: SEX: F ORDERED BY: PHYSICIAN EFREN SOURCE: URINE COLLECTED: 05/21/22 14:45 ANTIBIOTICS AT LI.: RECEIVED : 05/23/22 09:48 SITE: [facility] L T S URINE CULTURE,BACTERIAL FINAL 05/25/22 14:30 ISOLATE1 : Escherichia coli >100,000 CFU/ML __ Organism E coli Antibiotic BP INTRP __ Ampicillin S Ceftriaxone S Cefazolin S Ciprofloxacin R Nitrofurantoin I Gentamicin S Levofloxacin R Piperc/Tazobact S Trimeth/Sulfa S S=SUSCEPTIBLE I=INTERMEDIATE R=RESISTANT SDD=SUSCEPTIBLE DOSE DEPENDENT NS=NONSUSCEPTIBLE X=REPORTED IN ERROR [facility] Comment on above: Performed By: #### U RINC #### [facility] [address] [place] [address] URINE CULTURE,BACTERIAL TEST URINE CULTURE,BACTERIAL WAS CANCELLED, 05/22/2022 07:17 NO 2 IDS. PATIENT: PATRICIA HAWLEY LOCATION: [facility] BILL#: [id number] : 45 AGE: SEX: F ORDERED BY: PHYSICIAN EFREN SOURCE: URINE COLLECTED: 05/21/22 09:34 ANTIBIOTICS AT LI.: RECEIVED : SITE: R E S U L T S URINE CULTURE,BACTERIAL CANCELLED 05/22/22 07:17 [facility] Comment on above: Performed By: #### U [facility] #### [facility] [address] [place] [address] [facility] Tele[facility] (INFDAK) MARLEENPATRICIA Saldaña ([id number]) 1945 F Date Time Provider Department 10/25/20 GIOVANI SHIN INFDAK During your visit today, we recorded the following information about you: Nikki Barksdale 10/25/2020 10:[address] Dowling would like to give pt injection in lower back. Office asking if she still had infection in back. I informed office Patricia has not been here since 05/22/2020 but did have MRI in 06/2020. Asked office if they would like me to schedule an appointment for clearance, they declined and asked for MRI results and last office visit. Results and office visit faxed to [phone] Nikki Barksdale Allergies As of Date: 10/25/2020 Noted Allergy Reaction AMOXICILLIN 05/20/2020 16 - Unknown CLAVULANIC ACID 05/20/2020 16 - Unknown MACRODANTIN (NITROFURANTOIN) 12/22/2009 8 - GI Upset MORPHINE SULFATE 12/22/2009 8 - GI Upset SULFAMETHOXAZOLE 05/20/2020 16 - Unknown TRIMETHOPRIM 05/20/2020 16 - Unknown Date Reviewed: 06/01/2020 Reviewed by: Olivia Negro - Fully Assessed Reason for Visit: FYI-No Action Needed [265] Prescriptions as of 10/25/2020 Sig: PROBIOTIC ORAL [...] Take 17 g by mouth once daily. OXYCODONE-ACETAMINOPH EN 5 MG-* Take 1 tablet by mouth [...] Take 40 mg by mouth once larisa* MULTIVITAMIN-MINERALS -LUTEIN * Take 1 tablet by mouth once [...] due to Escherichia coli [N12, B9*04/23/2020 06/01/2020 Encounter Status:Closed by NIKKI BARKSDALE on 10/27/20 Normal 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 Most recent biopsy cultures 04/19/2020 were reportedly negative. TECHNIQUE: Routine lumbosacral spine MR protocol without and with intravenous gadolinium. MQ: [id number] Contrast: Dotarem. Contrast Dose: 20 cc Route of Administration: IV COMPARISON: Outside facility CT and MRI from 04/12/2020 RESULT: Counting reference: Lumbosacral junction. For the purposes of this report, L4-5 is considered the level of the iliac crest and assume there are 5 lumbar-type vertebrae. Anatomic variant: None. Localizer images: Artifact related to right hip arthroplasty. Alignment: T12-L1 marked disc space widening and 9 mm retrolisthesis. Grade 1 anterolisthesis (fused) at L4-5. Bone marrow signal/fracture: Osseous interbody fusion at L1-L5. Redemonstrated widening of the T12-L1 disc space with intervening fluid, and associated with endplate destruction and significant vertebral body destruction/volume loss. Small amount of remaining T12 and L1 vertebral bodies containing edema like bone marrow signal which is similar to the previous MRI. There is also enhancement and fluidlike signal within the T11-12 disc space is similar to the prior, and edema like signal within the T11 body which is similar to the prior. T12-L5 laminectomies. Conus: The conus is within normal limits of signal intensity and morphology. Paraspinal soft tissues no evidence of a paravertebral collection. Lower thoracic spine: Visualized lower thoracic canal and foramina are patent. T12-L1: Prior T12 Severe narrowing of the spinal canal due to disc space widening with retrolisthesis. There is mild localized dural thickening, There is no evidence of a new or enlarging epidural collection to suggest epidural abscess. Severe bilateral foraminal stenosis mostly due to vertebral body volume loss and retrolisthesis as well as foraminal enhancement which could be due to granulation or scar tissue given chronicity. L1-L2: Endplate osteophytes and facet hypertrophy. Canal is decompressed. Mild left foraminal stenosis. L2-L3: Endplate osteophytes and facet hypertrophy. Canal is decompressed. No significant foraminal compromise. L3-L4: Endplate osteophytes and facet hypertrophy. Canal is decompressed. Mild to moderate left and mild right foraminal stenosis. L4-L5: Endplate osteophytes and facet hypertrophy. Canal is decompressed by laminectomy. There is persistent severe bilateral subarticular zone encroachment. Mild bilateral foraminal stenosis. L5-S1: Disc height loss and bulging with endplate osteophytes and facet hypertrophy. Mild bilateral foraminal stenosis. Canal is decompressed. Sacrum and iliac wings: The visualized sacrum and iliac wings are within normal limits. IMPRESSION: Findings have not significantly changed when compared to 04/12/2020. Findings compatible with chronic sequelae of the patient's known history of T12-L1 discitis-osteomyeliti s. Significant retrolisthesis at this level results in high-grade spinal canal and foraminal stenosis. As before there is significant disc space widening at this level with adjacent significant vertebral body volume loss and mild vertebral body edema. Stable disc space fluid and endplate edema at T11-12 which could reflect stable chronic discitis-osteomyeliti s. Anatomic Thoracic/Lumbar Variant: None. L4-5 is considered the level of the iliac crest and assume there are 5 lumbar-type vertebrae. Transcribed Using Voice Recognition Transcribe Date/Time: Jun 29 2020 5:25P Dictated by: SHAUNA BOYLE MD This examination was interpreted and the report reviewed and electronically signed by: SHAUNA BOYLE MD on Jun 29 2020 5:52PM EST [id number] N [facility] NURSING PROGon 06-29-2020 NURSING PROG HNO ID: [id number] Author: Susan SarmientoRn) KIRK Turner Service: ? Author Type: Registered Nurse Type: Nursing Progress Note Filed: 06/29/2020 3:53 PM Note Text: Radiology Service Progress Note DATE OF SERVICE: June 29, 2020 TIME: 3:51 PM PATIENT WEIGHT: 196LBS PATIENT IDENTITY VERIFICATION COMPLETED USING TWO (2) STANDARD IDENTIFIERS: Name and Date of confirmed by patient verbally and Name and Date of confirmed by identification band. FALL SCREENING: Has the patient had 2 falls in the last year or 1 fall with injury or currently using an Ambulatory Assistive Device (Walker, Cane, Wheelchair, Crutches, etc.)? No PATIENT GENDER DATA: Female. status: : No status: NO. ALLERGIES: Reviewed and unchanged CONTRAST ALLERGY: No EXAM: MRI - CONTRAST TYPE: GROUP II IV SITE: Ambulatory: A power injectable PICC was accessed in the Right side. Blood Return, Flushed easily with normal saline, Good Blood Return Post Injection and No Complications IV SITE APPEARANCE: Clean,Dry and Intact SIGNATURE: Susan Turner RN PATIENT NAME: Patricia Hawley DATE: June 29, 2020 TIME: 3:51 PM [facility] CASE MANAGEMon 04-24-2020 CASE MANAGEM HNO ID: [id number] Author: Quita SarmientoRn) KIRK Archer Service: Nursing Author Type: Registered Nurse Type: Care Mgt Progress Note Filed: 04/24/2020 11:22 AM Note Text: CARE MANAGEMENT DISCHARGE NOTE SERVICE DATE: 04/24/2020 SERVICE TIME: 11:20 AM LOS: 10 days Admission Date: 04/13/2020 DISCHARGE ARRANGEMENT (list agency and phone number) Discharge Arrangement: snf facility Was an expedited discharge program used?: No Provider Name: [facility] CAREGIVER ASSESSMENT: HANDOFF COMMUNICATION: Handoff to: (Rn to call facility to give report) TRANSPORTATION ARRANGEMENTS: Transportation Arrangements: Ambulance/[place] Transportation Agency and Phone #:: [facility] ( [facility] ) [phone] / [phone] Date of Trip: 04/24/20 Time of Trip: 1300 Type of Service: BLS Non-emergency Is Patient Medicaid Pending?: No Discussion of financial coverage occurred with: Other: See Comment(daughter) [employer] Location: [facility] Destination: [facility] Financial Care Management Responsibility: None ADDITIONAL CONTACT RESOURCES: na Pt medically ready for d/c with d/c orders complete. Pt going to [facility] per cot at 1pm. RN, facility, and daughter notified. Rn to call report. 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 This test was developed and its performance characteristics determined by [facility]'s Darryl Jacobsen Pathology and Laboratory Medicine [place]. This test has been authorized by FDA under an Emergency Use Authorization (EUA). This test has been validated in accordance with the FDA's Guidance Document Policy for Diagnostics Testing in Laboratories Certified to Perform High Complexity Testing under CLIA prior to Emergency use Authorization for Coronavirus Disease 2019 during the Public Health Emergency issued on October 31, 2019. Performing Laboratory: [facility] [address] [place], [place] [id number] Performed By: #### G FR #### [facility] [address] [place], [place] [address] NURSING PROGon 04-24-2020 NURSING PROG HNO ID: [id number] Author: Nancy (Rn) KIRK Barton Service: ? Author Type: Registered Nurse Type: Nursing Progress Note Filed: 04/24/2020 12:30 PM Note Text: Nursing Progress Note Patient Name: Patricia Hawley Patient Location: [place] [address] [address]01 Daily Note:report called to [facility] nurse milka. Pt to be picked up at 1pm This note was completed by: Nancy Barton RN [facility] PROGRESSon 04-24-2020 PROGRESS HNO ID: [id number] Author: La Lee Service: Nephrology Author Type: Physician Type: Progress Notes Filed: 04/24/2020 12:34 PM Note Text: Subjective. No new events 04/23/20 2340 04/24/20 0502 04/24/20 0748 04/24/20 1155 BP: 116/80 156/82 150/80 Pulse: 90 72 83 Resp: Temp: 36.8 ?C (98.3 ?F) 36.7 ?C (98.1 ?F) 36.7 ?C (98.1 ?F) TempSrc: Oral Oral Oral SpO2: 100% 99% 98% Weight: 96.2 kg (212 lb 1.3 oz) 95.8 kg (211 lb 3.2 oz) Height: No pallor No icterus No JVD Heart - S1 S2 Lungs - clear Abdomen - soft, non distended, no organomegaly LE - no edema, No cyanosis No rash AAO x 3 CMP: Glucose 113 04/21/2020 BUN 41 04/21/2020 Creatinine 1.47 04/21/2020 Sodium 137 04/21/2020 Potassium 4.0 04/21/2020 Chloride 100 04/21/2020 CO2 29 04/21/2020 Protein, Total 6.1 2020 Albumin 3.2 2020 Calcium 8.8 04/21/2020 Alkaline Phosphatase 58 2020 Bilirubin, Total <0.2 2020 AST see below 2020 ALT 13 2020 Hemoglobin (g/dL) Date Value 07/28/2013 12.0 HGB (g/dL) Date Value 04/22/2020 8.7 Hematocrit (%) Date Value 04/22/2020 29.3 WBC (thou/cmm) Date Value 04/22/2020 8.89 Platelet Count (thou/cmm) Date Value 04/22/2020 249 Assessment/ Plan CKD 3 Now COLIN ? Related to volume depletion Cr is better and back to baseline Neurosurgery note reviewed Dc today [facility] PROGRESS HNO ID: [id number] Author: Harprete Wade Service: Pain Management Author Type: Physician Type: Progress Notes Filed: 04/24/2020 7:47 AM Note Text: Name: PATRICIA HAWLEY Age: [age] year old PAIN MANAGEMENT: Acute on chronic back pain, T11-12, T12-L1 osteomyelitis/disciti s; multilevel degenerative disc disease Pain Description: Intermittent pain low back; on her right side. Worse with movement. Limited activity. 24H Comfort Meds: Tylenol 650 mg x0 Cymbalta 30 mg daily Gabapentin 100 mg x 3 Methadone 10 mg twice a day Oxycodone 5 mg x 0 Lorazepam 0.5 mg hs x 1 Antibiotic Therapy: Ceftriaxone Interval HPI: Overall recently stable uncomfortable, ID plans for 6 weeks IV ceftriaxone 04/22 Dr. Benitez discussed with patient and daughter option for surgical intervention. Patient has declined surgical intervention and plans to proceed with IV antibiotics 04/20 nephrology consult CKD3 stable GFR 04/[address] extensive postsurgical changes. Chronic malunion of C2 fracture, cervical spondylosis with moderate stenosis at C7-T1 with possible cord flattening/compressio n 04/19 T12-L1 lesion biopsy nondiagnostic Subjective HPI: 75-year-old female was transferred from [facility] after diagnostic work-up demonstrated T12-L1 discitis/osteomyeliti s and possible malignant infiltration. Patient initially presented there with right-sided flank and back pain. She was treated for UTI and found to have moderate hydronephrosis. 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 Pain regimen confirmed to [facility] and includes gabapentin 100 mg 3 times daily, Ativan 0.5 mg twice daily as needed, oxycodone 5 mg every 4 hours PRN methadone 15 mg a.m., 10 mg p.m. and 10 mg at at bedtime. She has a history of chronic back pain as well as diffuse osteoarthritis status post right SINAN and right TKA. She states she last walked independently a while ago. Per chart, patient had prior T12/L5 laminectomy, L2-L5 fusion, status post occiput to C6 fusion.she has chronic bilateral foot drop. She is wheelchair-bound. OARRS Review: Negative. Does not reflect ECF pain regimen as documented above Current Facility-Administered Medications Medication Dose Route Frequency Provider Last Rate Last Dose - oxyCODONE IR 5 mg tab(s) (ROXICODONE) 5 mg ORAL q 6 H PRN Alyson K Scantling - methadone 10 mg tab(s) (DOLOPHINE) 10 mg ORAL BID Alyson K Scantling 10 mg at 04/23/202117 - metoprolol succinate ER 25 mg tab(s) (TOPROL XL) 25 mg ORAL DAILY Muhannad Víctor 25 mg at 04/23/20911 - cefTRIAXone iv piggyback 2 g in dextrose (iso-osmotic) 50 mL (ROCEPHIN) 2 g INTRAVENOUS q 24 H Giovani Shin 100 mL/hr at 04/23/20911 2 g at 04/23/20911 - sodium chloride 0.9 % (flush) 10 mL (BD POSIFLUSH) 10 mL INTRAVENOUS q 12 H Giovani Shin 10 mL at 04/23/202099 - sodium chloride 0.9 % (flush) 20 mL (BD POSIFLUSH) 20 mL INTRAVENOUS PRN Giovani Shin - miconazole 2 % 1 application topical powder (LOTRIMIN AF, DESENEX) 1 application TOPICAL TID 9a/3p/9p Muhannad Víctor 1 application at 04/23/202099 - senna-docusate 8.6-50 mg 1 tablet (SENNA-S) 1 tablet ORAL BID Abed Al-Hamid Ghandour 1 tablet at 04/23/202118 - hydrALAZINE 25 mg tab(s) (APRESOLINE) 25 mg ORAL q 8 H PRN Abed Al-Hamid Ghandour 25 mg at 04/15/201109 - gabapentin 100 mg cap(s) (NEURONTIN) 100 mg ORAL q 8 H Abed Al-Hamid Ghandour 100 mg at 04/23/202117 - LORazepam 0.5 mg tab(s) (ATIVAN) 0.5 mg ORAL AT BEDTIME Abed Al-Hamid Ghandour 0.5 mg at 04/23/202117 - citalopram 20 mg tab(s) (CeleXA) 20 mg ORAL DAILY Abed Al-Hamid Ghandour 20 mg at 04/23/20911 - DULoxetine 30 mg cap(s) (CYMBALTA) 30 mg ORAL DAILY Abed Al-Hamid Ghandour 30 mg at 04/23/20911 - sertraline 100 mg tab(s) (ZOLOFT) 100 mg ORAL DAILY Abed Al-Hamid Ghandour 100 mg at 04/23/20911 - ferrous sulfate 325 mg tab(s) 325 mg ORAL TID w MEALS Abed Al-Hamid Ghandour 325 mg at 04/23/20 1630 - albuterol 2.5 mg /3 mL (0.083 %) 2.5 mg (PROVENTIL) 3 mL INHALATION q 6 H PRN Abed Al-Hamid Ghandour - enoxaparin 40 mg injection (LOVENOX) 40 mg SUBCUTANEOUS DAILY Abed Al-Hamid Ghandour 40 mg at 04/23/20911 - sodium chloride 0.9 % (flush) 3-5 mL (BD POSIFLUSH) 3-5 mL INTRAVENOUS q 12 H Abed Al-Hamid Ghandour 5 mL at 04/23/20 2100 - ondansetron 4 mg tab(s) (ZOFRAN) 4 mg ORAL q 6 H PRN Abed Al-Hamid Ghandour 4 mg at 04/14/20 0951 Or - ondansetron (PF) 4 mg injection (ZOFRAN) 4 mg INTRAVENOUS q 6 H PRN Abed Al-Hamid Ghandour 4 mg at 04/19/20 1605 - acetaminophen 650 mg tab(s) (TYLENOL) 650 mg ORAL q 6 H PRN Abed Al-Hamid Ghandour 650 mg at 04/19/20 1758 - atorvastatin 10 mg tab(s) (LIPITOR) 10 mg ORAL AT BEDTIME Abed Al-Hamid Ghandour 10 mg at 04/23/202116 - ferrous sulfate 325 mg (65 mg iron) tablet, Take 325 mg by mouth three times daily with meals., Disp: , Rfl: - LISINOPRIL ORAL, Take 10 mg by mouth once daily., Disp: , Rfl: - Methenamine Hippurate (HIPREX) 1 gram tablet, Take 1 g by mouth twice daily with meals., Disp: , Rfl: - [DISCONTINUED] docusate sodium (COLACE) 100 mg capsule, Take 100 mg by mouth as needed for Constipation., Disp: , Rfl: - [DISCONTINUED] hydroCHLOROthiazide (HYDRODIURIL, ESIDRIX) 25 mg tablet, Take 25 mg by mouth once daily., Disp: , Rfl: - [DISCONTINUED] metoprolol tartrate, short acting, (LOPRESSOR) 50 mg tablet, Take 50 mg by mouth twice daily., Disp: , Rfl: - [DISCONTINUED] LORazepam (ATIVAN) 0.5 mg, Take 0.5 mg by mouth twice daily., Disp: , Rfl: - [DISCONTINUED] zolpidem (AMBIEN) 5 mg tablet, Take 5 mg by mouth at bedtime as needed., Disp: , Rfl: - sertraline (ZOLOFT) 100 mg tablet, Take 100 mg by mouth once daily., Disp: , Rfl: - [DISCONTINUED] albuterol (PROVENTIL) 2.5 mg /3 mL (0.083 %) nebulizer solution, Use 3 mL via nebulizer every 4 hours., Disp: , Rfl: - [DISCONTINUED] diclofenac sodium (VOLTAREN) 1 % topical gel, Apply to affected area four times daily., Disp: , Rfl: - [DISCONTINUED] methadone (DOLOPHINE) 10 mg tablet, Take 10 mg by mouth every 4 hours as needed. 10 mg at 12:00pm , 22:00 pm and 15 mg in the AM, Disp: , Rfl: - [DISCONTINUED] predniSONE (DELTASONE) 20 mg tablet, Take 40 mg by mouth once daily., Disp: , Rfl: - citalopram (CELEXA) 20 mg tablet, Take 20 mg by mouth once daily., Disp: , Rfl: - Gabapentin 300 mg Tab, Take 100 mg by mouth three times daily. , Disp: , Rfl: - pravastatin 40 mg tablet, Take 40 mg by mouth once daily., Disp: , Rfl: - Multivitamins-Mineral s-Lutein (CENTRUM SILVER) Tab, Take 1 tablet by mouth once daily., Disp: , Rfl: - [DISCONTINUED] meloxicam (MOBIC) 7.5 mg tablet, Take 7.5 mg by mouth once daily., Disp: , Rfl: - [DISCONTINUED] DULoxetine (CYMBALTA) 30 mg capsule, Take 1 a day for 2 weeks, then increase to 2 pills a day., Disp: 60 capsule, Rfl: 3 - [DISCONTINUED] LISINOPRIL-HYDROCHLOR OTHIAZIDE 10-12.5 mg ORAL per tablet, 1 tablet once daily., Disp: , Rfl: - metoprolol succinate ER (TOPROL XL) 50 mg 24 hr tablet, Take 50 mg by mouth once daily. , Disp: , Rfl: - [DISCONTINUED] oxyCODONE-acetaminoph en (PERCOCET) 5-325 mg ORAL tablet, Take 1 tablet by mouth every 4 hours as needed. , Disp: , Rfl: Social History Tobacco Use - Smoking status: Never Smoker - Smokeless tobacco: Never Used Substance Use Topics - Alcohol use: No - Drug use: No No family history on file. PAST SURGICAL HISTORY Procedure Laterality Date - LAMINECTOMY,CERVICAL Laminectomy, cervical fusion x2 - PAST SURGICAL HISTORY OF bladder suspenion x2 - REPAIR ROTATOR CUFF,ACUTE Rotator cuff repair bilat - TOTAL HIP REPLACEMENT Hip replacement, total - TOTAL KNEE REPLACEMENT Knee replacement, total - VAGINAL HYSTERECTOMY Hysterectomy, vaginal ROS: All of the following reviewed and negative except as noted below: Significant for HPI GENERAL: no fever, chills, sweats, weight loss, fatigue, generalized weakness HEENT: no headache, vision changes, eye discomfort, hearing change, ear discomfort, sinus pain, nasal discharge or congestion, oral lesions, soreness, dental problem NECK: no adenopathy, discomfort, change in ROM CHEST: no shortness of breath, dyspnea on exertion, wheezing, cough, sputum production or chest pain HEART: no chest pain, palpitations, syncope ABDOMEN: no nausea, vomiting, constipation, diarrhea, abdominal pain : no dysuria, urgency, frequency, history of stones, incontinence NEURO: no confusion or alteration in consciousness, slurred speech, seizure, focal weakness EXTREMITIES: no new pain, edema, change in ROM HEME: no new adenopathy, bruises, petechiae PSYCH: no depression, anxiety, agitation PAIN PSYCHIATRIC EXAM: GENERAL: alert, oriented to person, place JUDGMENT AND INSIGHT: Limited APPEARANCE: neatly groomed DEMEANOR: coooperative, not hostile, mistrustful, preoccupied, or demanding ACTIVITY: normal, not hyperactive or hypoactive, no tremors, tics EYE CONTACT: normal SPEECH: normal, rate, volume, articulation, coherence, spontaneity MOOD: normal, without overt sadness, grief, anxiety, appropriate to situation IDEATION: Deferred mEMORY: Impaired PHYSICAL EXAMINATION: GENERAL: well nourished and developed; pleasant mild confusion; no acute distress; alert and oriented x 2; limited judgement and insight HEENT: no evidence of trauma; cranial nerves intact; eyes clear EOMI; no hearing deficits apparent; nasal passages unremarkable; throat and mucous membranes clear NECK: supple without lymphadenopathy; no JVD; no thyromegaly CHEST: clear bilaterally to auscultation; normal chest movement; no rales or rhonchi HEART: regular rate and rhythm, normal S1 and S2, no murmurs, clicks, rubs, or gallops ABDOMEN: soft; nondistended; bowel sounds present; no hepatomegaly; no splenomegaly; no tenderness EXTREMITIES: no evidence of clubbing; no cyanosis; no deformity; no joint effusion; no edema NEURO: cranial nerves intact; no confusion; no tremor; sensorium normal; bilateral lower extremity weakness and foot drop SKIN: no rash; no skin breakdown; no decubitus lesions HEME: no bruising; no adenopathy PSYCH: no evidence of depression; no anxiety; no agitation; no apparent hallucinations BP 116/80 Pulse 90 Temp 36.8 ?C (98.3 ?F) (Oral) Resp 20 Ht 152.4 cm (5') Wt 95.9 kg (211 lb 8 oz) SpO2 100% BMI 41.31 kg/m? BMI 41.31 kg/(m2) Date 04/16/20699 - 04/17/20658 Shift 2727-8242 6342-4817 8110-7370 24 Hour Total INTAKE PO 240 240 Shift Total 240 240 OUTPUT Shift Total Weight (kg) 96.9 96.9 96.9 96.9 Date 04/15/20699 - 04/16/2065804/16/20699 - 04/17/2059 Shift 2185-0264 1736-6879 8456-2684 24 Hour Total 8853-2639 8189-6698 4449-5518 24 Hour Total INTAKE PO 240 240 PO 240 240 Shift Total 240 240 OUTPUT Urine 1463 824 1376 Void (ml) 850 850 Urine Incontinence/Not Saved 1 x 1 x Output ( External Collection Device 04/13/20 2225) 444 224 0452 # of BMs Stool Incontinence 2 x 2 x Shift Total 9523 078 5398 Weight (kg) 100.2 99.3 96.9 96.9 96.9 96.9 96.9 96.9 ABNORMAL/NEW FINDINGS: NONE RADIOLOGY/DIAGNOSTICS : LABORATORY: CBC: No results for input(s): WBC, RBC, HB, HCT, PLT, MCV, MCH, MPV, RDW in the last 24 hours. CMP: No results for input(s): NA, K, CHLOR, CO2, BUN, CREAT, GLUC, TPROT, CA, MG, ALBUMIN, TBILI, ALKPHOS, ALT, AST, ANION in the last 24 hours. Heme: No results for input(s): RETICP, ABSRETIC, LD, ANTONIETTA, FE, TIBC, TRANSFERSAT in the last 24 hours. ASSESSMENT ACTIVE PROBLEM LIST Fracture of Cervical Vertebra, C2 ([facility]) Cervical Spinal Stenosis Myelopathy ([facility]) S/P Cervical Spinal Fusion Shoulder Pain Osteoarthritis, Knee Neck pain Cervicalgia Uti (Urinary Tract Infection) Obesity, Class III, BMI >= 40 Discitis of Thoracolumbar Region Chronic Hypoxemic Respiratory Failure (Hcc) Ckd (Chronic Kidney Disease), Stage Iii ([facility]) Pyelonephritis Due to Escherichia Coli PLAN: Patient with history of multiple prior spine surgeries as outlined above, wheelchair-bound with bilateral foot drop presents with destructive lesion of L1, T12 which is progressed compared to 2013. Patient with severe cervical stenosis as outlined above on CT Poor functional baseline; no significant change in neurologic function IR guided biopsy 04/19 non diagnostic. 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 twice daily Change oxycodone 5 mg every 6 hours PRN; encouraged paient to use Senna S twice daily Anticipate patient will return to [facility] at discharge. Methadone and oxycodone prescriptions printed and placed in chart Harpreet Wade M.D. [facility] PROGRESSon 08-22-2020 PROGRESS HNO ID: [id number] Author: Loulou Renee Service: Hospital Medicine Author Type: Physician Type: Progress Notes Filed: 04/23/2020 3:34 PM Note Text: Hospital Medicine Progress Note Patient Name: Patricia Hawley Admission Date: 04/13/2020 Reason for Visit: Discitis, hypotension IMPRESSION AND PLAN: Active Hospital Problems Diagnosis - Obesity, Class III, BMI >= 40 - UTI (urinary tract infection) 1. ?T12-L1 and T11-T12 discitis, status post biopsy, still on IV antibiotic, will require PICC line 6 weeks of antibiotic, the biopsy was nonconclusive, case was reviewed with Dr. Shin. ? 2. ?Acute UTI with pyelonephritis secondary to Escherichia coli, finish 5 days of Rocephin. ? 3. ?Generalized weakness with debility, uses a wheelchair at all time. ?Continue with therapy. ? 4. ?Hypertension which is better today after hydration with IV fluid. 5. ?Chronic pain syndrome managed by methadone and Oxycodone IR -appreciate pain management input. ? 6. ?COPD with chronic hypoxic respiratory failure which seems to be stable on 2 L nasal cannula which is her baseline. ? 7. ?Chronic kidney disease stage III creatinine is better today down to 1.05 after receiving IV fluid and acute renal insufficiency resolved. ? 8. ?Anxiety stable on current medication. ? Waiting on COVID 19 test to discharge to SNF. Patient Checklist Prophylaxis: VTE - Yes Code Status: Code Status: Full Code Disposition: SNF Loulou Renee MD ==== Interval History: Patient was seen and examined for hypotension, patient denies any fever, chills, chest pain, Covid 19 test has been ordered and waiting on results for discharge to [facility] facility, PICC line was placed. PHYSICAL EXAM: BP 149/72 Pulse 80 Temp 36.4 ?C (97.5 ?F) (Axillary) Resp 18 Ht 152.4 cm (5') Wt 95.9 kg (211 lb 8 oz) SpO2 98% BMI 41.31 kg/m? PHYSICAL EXAMINATION: General appearance: Patient is sitting in bed in no acute respiratory distress. Awake, alert, oriented *[address] Skin: Normal temperature, no ecchymosis. Lungs: Lungs clear to auscultation. No wheezing, rhonchi, rales, no use of accessory respiratory muscles. Heart: RRR, normal s1s2, no murmurs Abdomen: Positive for bowel sounds, soft abdomen, non-tender. Extremities: No pitting edema bilateral legs. MEDICATIONS: docusate sodium (COLACE) 100 mg capsule Take 100 mg by mouth as needed for Constipation. ferrous sulfate 325 mg (65 mg iron) tablet Take 325 mg by mouth three times daily with meals. hydroCHLOROthiazide (HYDRODIURIL, ESIDRIX) 25 mg tablet Take 25 mg by mouth once daily. LISINOPRIL ORAL Take 10 mg by mouth once daily. metoprolol tartrate, short acting, (LOPRESSOR) 50 mg tablet Take 50 mg by mouth twice daily. LORazepam (ATIVAN) 0.5 mg Take 0.5 mg by mouth twice daily. zolpidem (AMBIEN) 5 mg tablet Take 5 mg by mouth at bedtime as needed. oxyCODONE IR (ROXICODONE) 5 mg immediate release tablet Take 1 tablet by mouth every 6 hours as needed for up to 7 days. naloxone 4 mg/actuation nasal spray (NARCAN) Use 1 spray in one nostril as needed for overdose. May repeat every 2 to 3 min in alternating nostrils until medical assistance is available methadone (DOLOPHINE) 10 mg tablet Take 1 tablet by mouth twice daily for 7 days. naloxone 4 mg/actuation nasal spray (NARCAN) Use 1 spray in one nostril as needed for overdose. May repeat every 2 to 3 min in alternating nostrils until medical assistance is available Methenamine Hippurate (HIPREX) 1 gram tablet Take 1 g by mouth twice daily with meals. albuterol (PROVENTIL) 2.5 mg /3 mL (0.083 %) nebulizer solution Use 3 mL via nebulizer every 4 hours. diclofenac sodium (VOLTAREN) 1 % topical gel Apply to affected area four times daily. predniSONE (DELTASONE) 20 mg tablet Take 40 mg by mouth once daily. sertraline (ZOLOFT) 100 mg tablet Take 100 mg by mouth once daily. citalopram (CELEXA) 20 mg tablet Take 20 mg by mouth once daily. Gabapentin 300 mg Tab Take 100 mg by mouth three times daily. meloxicam (MOBIC) 7.5 mg tablet Take 7.5 mg by mouth once daily. pravastatin 40 mg tablet Take 40 mg by mouth once daily. Multivitamins-Mineral s-Lutein (CENTRUM SILVER) Tab Take 1 tablet by mouth once daily. DULoxetine (CYMBALTA) 30 mg capsule Take 1 a day for 2 weeks, then increase to 2 pills a day. LISINOPRIL-HYDROCHLOR OTHIAZIDE 10-12.5 mg ORAL per tablet 1 tablet once daily. metoprolol succinate ER (TOPROL XL) 50 mg 24 hr tablet Take 50 mg by mouth once daily. oxyCODONE-acetaminoph en (PERCOCET) 5-325 mg ORAL tablet Take 1 tablet by mouth every 4 hours as needed. Current Facility-Administered Medications Medication Dose Route Frequency - citalopram 20 mg tab(s) (CeleXA) 20 mg ORAL DAILY - DULoxetine 30 mg cap(s) (CYMBALTA) 30 mg ORAL DAILY - sertraline 100 mg tab(s) (ZOLOFT) 100 mg ORAL DAILY - ferrous sulfate 325 mg tab(s) 325 mg ORAL TID w MEALS - albuterol 2.5 mg /3 mL (0.083 %) 2.5 mg (PROVENTIL) 3 mL INHALATION q 6 H PRN - enoxaparin 40 mg injection (LOVENOX) 40 mg SUBCUTANEOUS DAILY - sodium chloride 0.9 % (flush) 3-5 mL (BD POSIFLUSH) 3-5 mL INTRAVENOUS q 12 H - ondansetron 4 mg tab(s) (ZOFRAN) 4 mg ORAL q 6 H PRN Or - ondansetron (PF) 4 mg injection (ZOFRAN) 4 mg INTRAVENOUS q 6 H PRN - acetaminophen 650 mg tab(s) (TYLENOL) 650 mg ORAL q 6 H PRN - atorvastatin 10 mg tab(s) (LIPITOR) 10 mg ORAL AT BEDTIME - hydrALAZINE 25 mg tab(s) (APRESOLINE) 25 mg ORAL q 8 H PRN - gabapentin 100 mg cap(s) (NEURONTIN) 100 mg ORAL q 8 H - LORazepam 0.5 mg tab(s) (ATIVAN) 0.5 mg ORAL AT BEDTIME - senna-docusate 8.6-50 mg 1 tablet (SENNA-S) 1 tablet ORAL BID - miconazole 2 % 1 application topical powder (LOTRIMIN AF, DESENEX) 1 application TOPICAL TID 9a/3p/9p - metoprolol succinate ER 25 mg tab(s) (TOPROL XL) 25 mg ORAL DAILY - cefTRIAXone iv piggyback 2 g in dextrose (iso-osmotic) 50 mL (ROCEPHIN) 2 g INTRAVENOUS q 24 H - sodium chloride 0.9 % (flush) 10 mL (BD POSIFLUSH) 10 mL INTRAVENOUS q 12 H - sodium chloride 0.9 % (flush) 20 mL (BD POSIFLUSH) 20 mL INTRAVENOUS PRN - oxyCODONE IR 5 mg tab(s) (ROXICODONE) 5 mg ORAL q 6 H PRN - methadone 10 mg tab(s) (DOLOPHINE) 10 mg ORAL BID Lab data: CBC: Recent Labs 04/22/20 0353 04/20/20 1024 WBC 8.89 10.28* HB 8.7* 10.1* HCT 29.3* 32.6* PLT 249 277 MCV 101.4* 98.5* BMP: Recent Labs 04/22/20 0353 04/21/20 0215 04/18/20 0645 04/17/20 0553 GLUC 92 113* 92 78 NA 137 137 140 139 K 3.8 4.0 3.9 4.2 CHLOR 102 100 100 97 CO2 28 29 29 31* ANION 7* 8* 11 11 BUN 36* 41* 26* 28* CREAT 1.05* 1.47* 1.05* 1.22* CHEM: Recent Labs 04/22/20 0353 04/21/20 0215 04/18/20 0645 04/17/20 0553 CA 8.9 8.8 9.1 9.3 Plan of care discussion: Plan of care discussed with: Provider, RN, Patient. Loulou Renee MD Pager #[phone] 4:05 PM April 22, 2020 Disclaimer: Portions of this note have been generated using [employer] voice recognition software. Reasonable efforts were made to correct any dictation errors that resulted due to the programming of this software but some may still be present. [facility] PROGRESS HNO ID: [id number] Author: La Lee Service: Nephrology Author Type: Physician Type: Progress Notes Filed: 04/23/2020 12:27 PM Note Text: Subjective. No new events 04/23/20 0335 04/23/20 0530 04/23/20 0911 04/23/20 0912 BP: 133/65 149/72 Pulse: 65 80 Resp: 18 18 Temp: 37.1 ?C (98.8 ?F) 36.4 ?C (97.5 ?F) TempSrc: Oral Axillary SpO2: 96% 95% 98% Weight: 95.9 kg (211 lb 8 oz) Height: No pallor No icterus No JVD Heart - S1 S2 Lungs - clear Abdomen - soft, non distended, no organomegaly LE - no edema, No cyanosis No rash AAO x 3 CMP: Glucose 113 04/21/2020 BUN 41 04/21/2020 Creatinine 1.47 04/21/2020 Sodium 137 04/21/2020 Potassium 4.0 04/21/2020 Chloride 100 04/21/2020 CO2 29 04/21/2020 Protein, Total 6.1 2020 Albumin 3.2 2020 Calcium 8.8 04/21/2020 Alkaline Phosphatase 58 2020 Bilirubin, Total <0.2 2020 AST see below 2020 ALT 13 2020 Hemoglobin (g/dL) Date Value 07/28/2013 12.0 HGB (g/dL) Date Value 04/22/2020 8.7 Hematocrit (%) Date Value 04/22/2020 29.3 WBC (thou/cmm) Date Value 04/22/2020 8.89 Platelet Count (thou/cmm) Date Value 04/22/2020 249 Assessment/ Plan CKD 3 Now COLIN ? Related to volume depletion Cr is better and back to baseline Neurosurgery note reviewed Waiting for NH placement [facility] PROGRESS HNO ID: [id number] Author: Harpreet Wade Service: Pain Management Author Type: Physician Type: Progress Notes Filed: 04/24/2020 3:51 AM Note Text: Name: PATRICIA HAWLEY Age: [age] year old PAIN MANAGEMENT: Acute on chronic back pain, T11-12, T12-L1 osteomyelitis/disciti s; multilevel degenerative disc disease Pain Description: Intermittent pain low back; on her right side. Worse with movement. Limited activity. 24H Comfort Meds: Tylenol 650 mg x0 Cymbalta 30 mg daily Gabapentin 100 mg x 3 Methadone 10 mg twice a day Oxycodone 5 mg x 0 Lorazepam 0.5 mg hs x 1 Antibiotic Therapy: Ceftriaxone Interval HPI: Methadone 15 mg dose discontinued on 04/22, continues on methadone 10 mg twice a day. ID plans for 6 weeks IV ceftriaxone 04/22 Dr. Benitez to discussed with patient and daughter option for surgical intervention. Patient has declined surgical intervention and plans to proceed with IV antibiotics 04/20 nephrology consult CKD3 stable GFR 04/[address] extensive postsurgical changes. Chronic malunion of C2 fracture, cervical spondylosis with moderate stenosis at C7-T1 with possible cord flattening/compressio n 04/19 T12-L1 lesion biopsy nondiagnostic Subjective HPI: 75-year-old female was transferred from [facility] after diagnostic work-up demonstrated T12-L1 discitis/osteomyeliti s and possible malignant infiltration. Patient initially presented there with right-sided flank and back pain. She was treated for UTI and found to have moderate hydronephrosis. 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 Pain regimen confirmed to [facility] and includes gabapentin 100 mg 3 times daily, Ativan 0.5 mg twice daily as needed, oxycodone 5 mg every 4 hours PRN methadone 15 mg a.m., 10 mg p.m. and 10 mg at at bedtime. She has a history of chronic back pain as well as diffuse osteoarthritis status post right SINAN and right TKA. She states she last walked independently a while ago. Per chart, patient had prior T12/L5 laminectomy, L2-L5 fusion, status post occiput to C6 fusion.she has chronic bilateral foot drop. She is wheelchair-bound. OARRS Review: Negative. Does not reflect [facility] pain regimen as documented above Current Facility-Administered Medications Medication Dose Route Frequency Provider Last Rate Last Dose - oxyCODONE IR 5 mg tab(s) (ROXICODONE) 5 mg ORAL q 6 H PRN Alyson Johansen Scantling - methadone 10 mg tab(s) (DOLOPHINE) 10 mg ORAL BID Alyson K Scantling 10 mg at 04/22/202107 - metoprolol succinate ER 25 mg tab(s) (TOPROL XL) 25 mg ORAL DAILY Muhannad Víctor 25 mg at 04/22/20 1046 - cefTRIAXone iv piggyback 2 g in dextrose (iso-osmotic) 50 mL (ROCEPHIN) 2 g INTRAVENOUS q 24 H Giovani Shin 100 mL/hr at 04/22/20 1057 2 g at 04/22/20 1057 - sodium chloride 0.9 % (flush) 10 mL (BD POSIFLUSH) 10 mL INTRAVENOUS q 12 H Giovani Shin 10 mL at 04/22/20 210 - sodium chloride 0.9 % (flush) 20 mL (BD POSIFLUSH) 20 mL INTRAVENOUS PRN Giovani Shin - miconazole 2 % 1 application topical powder (LOTRIMIN AF, DESENEX) 1 application TOPICAL TID 9a/3p/9p Muhannad Víctor 1 application at 04/22/202107 - senna-docusate 8.6-50 mg 1 tablet (SENNA-S) 1 tablet ORAL BID Abed Al-Hamid Ghandour 1 tablet at 04/22/202107 - hydrALAZINE 25 mg tab(s) (APRESOLINE) 25 mg ORAL q 8 H PRN Abed Al-Hamid Ghandour 25 mg at 04/15/20 1110 - gabapentin 100 mg cap(s) (NEURONTIN) 100 mg ORAL q 8 H Abed Al-Hamid Ghandour 100 mg at 04/22/202107 - LORazepam 0.5 mg tab(s) (ATIVAN) 0.5 mg ORAL AT BEDTIME Abed Al-Hamid Ghandour 0.5 mg at 04/22/202107 - citalopram 20 mg tab(s) (CeleXA) 20 mg ORAL DAILY Abed Al-Hamid Ghandour 20 mg at 04/22/20 1047 - DULoxetine 30 mg cap(s) (CYMBALTA) 30 mg ORAL DAILY Abed Al-Hamid Ghandour 30 mg at 04/22/20 1046 - sertraline 100 mg tab(s) (ZOLOFT) 100 mg ORAL DAILY Abed Al-Hamid Ghandour 100 mg at 04/22/20 1047 - ferrous sulfate 325 mg tab(s) 325 mg ORAL TID w MEALS Abed Al-Hamid Ghandour 325 mg at 04/22/20 1604 - albuterol 2.5 mg /3 mL (0.083 %) 2.5 mg (PROVENTIL) 3 mL INHALATION q 6 H PRN Abed Al-Hamid Ghandour - enoxaparin 40 mg injection (LOVENOX) 40 mg SUBCUTANEOUS DAILY Abed Al-Hamid Ghandour 40 mg at 04/22/20 1046 - sodium chloride 0.9 % (flush) 3-5 mL (BD POSIFLUSH) 3-5 mL INTRAVENOUS q 12 H Abed Al-Hamid Ghandour 5 mL at 04/22/20 0900 - ondansetron 4 mg tab(s) (ZOFRAN) 4 mg ORAL q 6 H PRN Abed Al-Hamid Ghandour 4 mg at 04/14/20 0951 Or - ondansetron (PF) 4 mg injection (ZOFRAN) 4 mg INTRAVENOUS q 6 H PRN Abed Al-Hamid Ghandour 4 mg at 04/19/20 1605 - acetaminophen 650 mg tab(s) (TYLENOL) 650 mg ORAL q 6 H PRN Abed Al-Hamid Ghandour 650 mg at 04/19/20 1758 - atorvastatin 10 mg tab(s) (LIPITOR) 10 mg ORAL AT BEDTIME Abed Al-Hamid Ghandour 10 mg at 04/22/20 2108 - docusate sodium (COLACE) 100 mg capsule, Take 100 mg by mouth as needed for Constipation., Disp: , Rfl: - ferrous sulfate 325 mg (65 mg iron) tablet, Take 325 mg by mouth three times daily with meals., Disp: , Rfl: - hydroCHLOROthiazide (HYDRODIURIL, ESIDRIX) 25 mg tablet, Take 25 mg by mouth once daily., Disp: , Rfl: - LISINOPRIL ORAL, Take 10 mg by mouth once daily., Disp: , Rfl: - metoprolol tartrate, short acting, (LOPRESSOR) 50 mg tablet, Take 50 mg by mouth twice daily., Disp: , Rfl: - LORazepam (ATIVAN) 0.5 mg, Take 0.5 mg by mouth twice daily., Disp: , Rfl: - zolpidem (AMBIEN) 5 mg tablet, Take 5 mg by mouth at bedtime as needed., Disp: , Rfl: - Methenamine Hippurate (HIPREX) 1 gram tablet, Take 1 g by mouth twice daily with meals., Disp: , Rfl: - albuterol (PROVENTIL) 2.5 mg /3 mL (0.083 %) nebulizer solution, Use 3 mL via nebulizer every 4 hours., Disp: , Rfl: - diclofenac sodium (VOLTAREN) 1 % topical gel, Apply to affected area four times daily., Disp: , Rfl: - predniSONE (DELTASONE) 20 mg tablet, Take 40 mg by mouth once daily., Disp: , Rfl: - sertraline (ZOLOFT) 100 mg tablet, Take 100 mg by mouth once daily., Disp: , Rfl: - [DISCONTINUED] methadone (DOLOPHINE) 10 mg tablet, Take 10 mg by mouth every 4 hours as needed. 10 mg at 12:00pm , 22:00 pm and 15 mg in the AM, Disp: , Rfl: - citalopram (CELEXA) 20 mg tablet, Take 20 mg by mouth once daily., Disp: , Rfl: - Gabapentin 300 mg Tab, Take 100 mg by mouth three times daily. , Disp: , Rfl: - meloxicam (MOBIC) 7.5 mg tablet, Take 7.5 mg by mouth once daily., Disp: , Rfl: - pravastatin 40 mg tablet, Take 40 mg by mouth once daily., Disp: , Rfl: - Multivitamins-Mineral s-Lutein (CENTRUM SILVER) Tab, Take 1 tablet by mouth once daily., Disp: , Rfl: - DULoxetine (CYMBALTA) 30 mg capsule, Take 1 a day for 2 weeks, then increase to 2 pills a day., Disp: 60 capsule, Rfl: 3 - LISINOPRIL-HYDROCHLOR OTHIAZIDE 10-12.5 mg ORAL per tablet, 1 tablet once daily., Disp: , Rfl: - metoprolol succinate ER (TOPROL XL) 50 mg 24 hr tablet, Take 50 mg by mouth once daily. , Disp: , Rfl: - oxyCODONE-acetaminoph en (PERCOCET) 5-325 mg ORAL tablet, Take 1 tablet by mouth every 4 hours as needed. , Disp: , Rfl: Social History Tobacco Use - Smoking status: Never Smoker - Smokeless tobacco: Never Used Substance Use Topics - Alcohol use: No - Drug use: No No family history on file. PAST SURGICAL HISTORY Procedure Laterality Date - LAMINECTOMY,CERVICAL Laminectomy, cervical fusion x2 - PAST SURGICAL HISTORY OF bladder suspenion x2 - REPAIR ROTATOR CUFF,ACUTE Rotator cuff repair bilat - TOTAL HIP REPLACEMENT Hip replacement, total - TOTAL KNEE REPLACEMENT Knee replacement, total - VAGINAL HYSTERECTOMY Hysterectomy, vaginal ROS: All of the following reviewed and negative except as noted below: Significant for HPI GENERAL: no fever, chills, sweats, weight loss, fatigue, generalized weakness HEENT: no headache, vision changes, eye discomfort, hearing change, ear discomfort, sinus pain, nasal discharge or congestion, oral lesions, soreness, dental problem NECK: no adenopathy, discomfort, change in ROM CHEST: no shortness of breath, dyspnea on exertion, wheezing, cough, sputum production or chest pain HEART: no chest pain, palpitations, syncope ABDOMEN: no nausea, vomiting, constipation, diarrhea, abdominal pain : no dysuria, urgency, frequency, history of stones, incontinence NEURO: no confusion or alteration in consciousness, slurred speech, seizure, focal weakness EXTREMITIES: no new pain, edema, change in ROM HEME: no new adenopathy, bruises, petechiae PSYCH: no depression, anxiety, agitation PAIN PSYCHIATRIC EXAM: GENERAL: alert, oriented to person, place JUDGMENT AND INSIGHT: Limited APPEARANCE: neatly groomed DEMEANOR: coooperative, not hostile, mistrustful, preoccupied, or demanding ACTIVITY: normal, not hyperactive or hypoactive, no tremors, tics EYE CONTACT: normal SPEECH: normal, rate, volume, articulation, coherence, spontaneity MOOD: normal, without overt sadness, grief, anxiety, appropriate to situation IDEATION: Deferred mEMORY: Impaired PHYSICAL EXAMINATION: GENERAL: well nourished and developed; pleasant mild confusion; no acute distress; alert and oriented x 2; limited judgement and insight HEENT: no evidence of trauma; cranial nerves intact; eyes clear EOMI; no hearing deficits apparent; nasal passages unremarkable; throat and mucous membranes clear NECK: supple without lymphadenopathy; no JVD; no thyromegaly CHEST: clear bilaterally to auscultation; normal chest movement; no rales or rhonchi HEART: regular rate and rhythm, normal S1 and S2, no murmurs, clicks, rubs, or gallops ABDOMEN: soft; nondistended; bowel sounds present; no hepatomegaly; no splenomegaly; no tenderness EXTREMITIES: no evidence of clubbing; no cyanosis; no deformity; no joint effusion; no edema NEURO: cranial nerves intact; no confusion; no tremor; sensorium normal; bilateral lower extremity weakness and foot drop SKIN: no rash; no skin breakdown; no decubitus lesions HEME: no bruising; no adenopathy PSYCH: no evidence of depression; no anxiety; no agitation; no apparent hallucinations BP 133/65 Pulse 65 Temp 37.1 ?C (98.8 ?F) (Oral) Resp 18 Ht 152.4 cm (5') Wt 100.2 kg (221 lb) SpO2 96% BMI 43.16 kg/m? BMI 43.16 kg/(m2) Date 04/16/20699 - 04/17/20 0659 Shift 7107-6227 9715-3105 3071-9746 24 Hour Total INTAKE PO 240 240 Shift Total 240 240 OUTPUT Shift Total Weight (kg) 96.9 96.9 96.9 96.9 Date 04/15/20699 - 04/16/2059 04/16/20699 - 04/17/20 0659 Shift 5935-9582 4892-0959 0662-1919 24 Hour Total 1011-9352 3107-3709 9611-7837 24 Hour Total INTAKE PO 240 240 PO 240 240 Shift Total 240 240 OUTPUT Urine 5895 874 7165 Void (ml) 850 850 Urine Incontinence/Not Saved 1 x 1 x Output ( External Collection Device 04/13/202224) 584 012 6904 # of BMs Stool Incontinence 2 x 2 x Shift Total 4930 835 8551 Weight (kg) 100.2 99.3 96.9 96.9 96.9 96.9 96.9 96.9 ABNORMAL/NEW FINDINGS: NONE RADIOLOGY/DIAGNOSTICS : LABORATORY: CBC: No results for input(s): WBC, RBC, HB, HCT, PLT, MCV, MCH, MPV, RDW in the last 24 hours. CMP: No results for input(s): NA, K, CHLOR, CO2, BUN, CREAT, GLUC, TPROT, CA, MG, ALBUMIN, TBILI, ALKPHOS, ALT, AST, ANION in the last 24 hours. Heme: No results for input(s): RETICP, ABSRETIC, LD, ANTONIETTA, FE, TIBC, TRANSFERSAT in the last 24 hours. ASSESSMENT ACTIVE PROBLEM LIST Fracture of Cervical Vertebra, C2 (Hcc) Cervical Spinal Stenosis Myelopathy (Hcc) S/P Cervical Spinal Fusion Shoulder Pain Osteoarthritis, Knee Neck pain Cervicalgia Uti (Urinary Tract Infection) Obesity, Class III, BMI >= 40 PLAN: Patient with history of multiple prior spine surgeries as outlined above, wheelchair-bound with bilateral foot drop presents with destructive lesion of L1, T12 which is progressed compared to 2013. Patient with severe cervical stenosis as outlined above on CT Poor functional baseline; no significant change in neurologic function IR guided biopsy 04/19 non diagnostic. 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 twice daily Changed oxycodone 5 mg every 6 hours PRN; encouraged paient to use Senna S twice daily Anticipate patient will return to [facility] at discharge. Methadone and oxycodone prescriptions printed and placed in chart Harpreet Wade M.D. [facility] Basic Metabolic Panelon 08- Anion gap [Moles/Vol] 7 mmol/L Low 9-18 [facility] Comment on above: Performed By: #### G FR #### [facility] [address] [place], [place] [address] Calcium [Mass/Vol] 8.9 mg/dL Normal 8.5-10.2 [facility] Comment on above: Performed By: #### G FR #### [facility] [address] [place], [place] [address] Chloride [Moles/Vol] 102 mmol/L Normal 97-105 [facility] Comment on above: Performed By: #### G FR #### [facility] [address] [place], [place] [address] CO2 Blood 28 mmol/L Normal 22-30 [facility] Comment on above: Performed By: #### G FR #### [facility] [address] [place], [place] [address] Creatinine [Mass/Vol] 1.05 mg/dL High 0.58-0.96 [facility] Comment on above: Performed By: #### G FR #### [facility] [address] [place], [place] [address] Glucose [Mass/Vol] 92 mg/dL Normal 74-99 [facility] Comment on above: Result Comment: The [place] [employer] (ADA) provides guidance for cutoff values for fasting glucose and random glucose. The ADA defines fasting as no caloric intake for at least 8 hours.Fasting plasma glucose results between 100 to 125 mg/dL indicate increased risk for diabetes (prediabetes). Fasting plasma glucose results greater than or equal to 126 mg/dL meet the criteria for diagnosis of diabetes. In the absence of unequivocal hyperglycemia, results should be confirmed by repeat testing. In a patient with classic symptoms of hyperglycemia or hyperglycemic crisis, random plasma glucose results greater than or equal to 200 mg/dL meet the criteria for diagnosis of diabetes. Reference: Standards of Medical Care in Diabetes 2016; [place] [employer]. Diabetes Care. 2016;39(Suppl 1). Performed By: #### G FR #### [facility] [address] [place], [place] [address] Potassium [Moles/Vol] 3.8 mmol/L Normal 3.7-5.1 [facility] Comment on above: Performed By: #### G FR #### [facility] [address] [place], [place] [address] Sodium [Moles/Vol] 137 mmol/L Normal 136-144 [facility] Comment on above: Performed By: #### G FR #### [facility] [address] [place], [place] [address] Urea nitrogen [Mass/Vol] 36 mg/dL High 7-21 [facility] Comment on above: Performed By: #### G FR #### [facility] [address] [place], [place] [address] CASE MANAGEMon 04-22-2020 CASE MANAGEM HNO ID: [id number] Author: María AaronCiro Mccall RN Service: Care Management Author Type: Registered Nurse Type: Care Mgt Progress Note Filed: 04/22/2020 1:33 PM Note Text: CARE MANAGEMENT PROGRESS NOTE SERVICE DATE: 04/22/2020 SERVICE TIME: 1:29 PM LOS: 8 days CHart reviewed, awaiting COVID test results, return to the [facility] [address] by cot, Transport form, ambulance referral completed. Still need screening completed on chart. Please send SNF Covid result and call lucas Chew with tack picker time. SIGNATURE: María Mccall RN PATIENT NAME: Patricia Hawley DATE: April 22, 2020 TIME: 1:29 PM PAGER/CONTACT #: [phone] [facility] CASE MANAGEM HNO ID: [id number] Author: María Mccall RN Service: Care Management Author Type: Registered Nurse Type: Care Mgt Progress Note Filed: 04/22/2020 1:32 PM Note Text: CARE MANAGEMENT PROGRESS NOTE SERVICE DATE: 04/22/2020 SERVICE TIME: 1:29 PM LOS: 8 days CHart reviewed, awaiting COVID test results, return to the [facility] by cot, Transport form, ambulance referral completed. Still need screening completed on chart. Please send SNF Covid result and call lucas Chew with tack picker time. SIGNATURE: María Mccall RN PATIENT NAME: Patricia Hawley DATE: April 22, 2020 TIME: 1:29 PM PAGER/CONTACT #: [phone] [facility] 04-22-2020 CNPN Telephone (ERASTO) PATRICIA HAWLEY ([id number]) 1945 F Date Time Provider Department 04/22/20 GIOVANI SHIN During your visit today, we recorded the following information about you: Giovani Shin MD 04/22/2020 3:46 PM Signed Please call daughter to set up telephone appointment in 3 weeks, ok for established slot 30 minutes. thanks Giovani Shin MD Jessica Faustineli [facility] 04/25/2020 9:40 AM Signed Called spoke to her Daughter. Made appointment for 05/30/2020 2:30. Phone VV. Di Shaun 05/31/2020 10:36 AM Signed Aminta from the [facility] called, she stated this patient was to have a phone appointment with you yesterday. It looks like the patient was to be added per your last note, but never was. Patient will run out of IV antibiotics tomorrow and they need to know what to do. Please advise. The number if you need it is [phone]. Di Shin MD 05/31/2020 11:20 AM Signed Please schedule a 2pm telephone appointment with me. Can you please find out if the daughter will be there during the appointment? Thanks MD Di Herrera 05/31/2020 11:30 AM Signed LVM at the [facility] for patients nurse Aminta. With appointment date and time. Di Dunn Allergies As of Date: 04/22/2020 Noted Allergy Reaction MACRODANTIN (NITROFURANTOIN) 12/22/2009 8 - GI Upset MORPHINE SULFATE 12/22/2009 8 - GI Upset Date Reviewed: 04/21/2020 Reviewed by: Kiran (Rn) KIRK Mata - Fully Assessed Reason for Visit: Appointment [186] Prescriptions as of 04/22/2020 Sig: OXYCODONE 5 MG TABLET Take 1 tablet by mouth every * NALOXONE 4 MG/ACTUATION NASAL* Use 1 spray in one nostril as* METHADONE 10 MG TABLET Take 1 tablet by mouth twice * NALOXONE 4 MG/ACTUATION NASAL* Use 1 spray in one nostril as* FERROUS SULFATE 325 MG (65 MG* Take 325 mg by mouth three ti* LISINOPRIL ORAL Take 10 mg by mouth once larisa* METHENAMINE HIPPURATE 1 GRAM * Take 1 g by mouth twice daily* X DOCUSATE SODIUM 100 MG CAPSULE Take 100 mg by mouth as neede* X HYDROCHLOROTHIAZIDE 25 MG TAB* Take 25 mg by mouth once larisa* X METOPROLOL TARTRATE 50 MG TAB* Take 50 mg by mouth twice joan* X LORAZEPAM 0.5 MG TABLET Take 0.5 mg by mouth twice da* X ZOLPIDEM 5 MG TABLET Take 5 mg by mouth at bedtime* SERTRALINE 100 MG TABLET Take 100 mg by mouth once joan* X ALBUTEROL SULFATE 2.5 MG/3 ML* Use 3 mL via nebulizer every * X DICLOFENAC 1 % TOPICAL GEL Apply to affected area four t* X PREDNISONE 20 MG TABLET Take 40 mg by mouth once larisa* CITALOPRAM 20 MG TABLET Take 20 mg by mouth once larisa* GABAPENTIN 300 MG TABLET Take 100 mg by mouth three ti* PRAVASTATIN 40 MG TABLET Take 40 mg by mouth once larisa* MULTIVITAMIN-MINERALS -LUTEIN * Take 1 tablet by mouth once d* X MELOXICAM 7.5 MG TABLET Take 7.5 mg by mouth once joan* X DULOXETINE 30 MG CAPSULE,TONI* Take 1 a day for 2 weeks, the* X LISINOPRIL 10 MG-HYDROCHLOROT* 1 tablet once daily. TOPROL XL 50 MG TABLET,EXTEND* Take 50 mg by mouth once larisa* X OXYCODONE-ACETAMINOPH EN 5 MG-* Take 1 tablet by mouth every * Problem List As Of Date 04/22/2020 Noted Resolved Fracture of Cervical Vertebra, C2 [S12.100A] 02/06/2010 Cervical Spinal Stenosis [M48.02] 02/06/2010 Myelopathy [G95.9] 02/06/2010 S/P Cervical Spinal Fusion [Z98.1] 02/06/2010 Shoulder Pain [M25.519] 02/06/2010 Osteoarthritis, knee [M17.10] 06/20/2010 Neck pain [M54.2] 03/16/2011 Cervicalgia [M54.2] 06/20/2011 UTI (urinary tract infection) [N39.0] 04/14/2020 Obesity, Class III, BMI >= 40 [E66.01] 04/20/2020 Encounter Status:Closed by GIOVANI SHIN MD on 04/25/20 [facility] CONSULT PROGon 04-22-2020 CONSULT PROG HNO ID: [id number] Author: Giovani Shin Service: Infectious Disease Author Type: Physician Type: Consult Progress Note Filed: 04/22/2020 3:44 PM Note Text: PROGRESS NOTE INFECTIOUS DISEASE BRIEF SUMMARY: 74F h/o spinal stenosis s/p T12-L5 decompressive bilateral laminectomy with foraminotomies from T12-L5 for decompression. Presented to [facility]SH ([facility] on 04/12/20 for R flank pain found to have UTI + hydronephrosis, transferred to [facility] 04/14/20 because of worsening paresthesias of legs, MRI c/t/l showed T12-L1 OM vs discitis vs malignancy. ASSESSMENT: 1. Ecoli UTI + hydronephrosis - treated w ceftriaxone 5 days 2. Chronic T12-L1 vertebral body destruction, worsening s/p IR-guided biopsy 04/19/20 Will treat as spinal infection even though pathology non-diagnostic. Given the increased in size and the presence of acute inflammatory cells and recurrent UTI h/o, it is possible that this is an occult infection. Neurosurgery recommended outpatient [facility] evaluation after infection treatment Estimated Creatinine Clearance: 48.7 mL/min (A) (based on SCr of 1.05 mg/dL (H)). RECOMMENDATIONS: - plan for ceftriaxone 2g IV daily x 6 weeks - CoPAT in chart (chart review ->Encounters -> (uncheck Hide Add'l Visitis) --> CoPAT Start --> CoPAT Start Report) - Given patient already on ceftriaxone, no need to cont methanamine, may resume after done with ceftriaxone - get CRP now as baseline, then in 3 weeks and 6 weeks - obtain MRI lumbar at week 5 of antibiotic and decide next plan - OK to d/c from ID standpoint - ID will sign off. Please do not hesitate to call us if there is any questions SUBJECTIVE: Interval Events: 04/15 better mentation today 04/18 no event over the weekend 04/19 went down for IR guided biopsy 04/20 no event overnight 04/21 path report: soft tissue biopsy -- minute fragments of fibrin with a few acute and chronic inflammatory cells and scant crushed bone, non-diagnostic 04/22 no event overnight Medications: Current Facility-Administered Medications Medication Dose Route Frequency - citalopram 20 mg tab(s) (CeleXA) 20 mg ORAL DAILY - DULoxetine 30 mg cap(s) (CYMBALTA) 30 mg ORAL DAILY - sertraline 100 mg tab(s) (ZOLOFT) 100 mg ORAL DAILY - ferrous sulfate 325 mg tab(s) 325 mg ORAL TID w MEALS - albuterol 2.5 mg /3 mL (0.083 %) 2.5 mg (PROVENTIL) 3 mL INHALATION q 6 H PRN - enoxaparin 40 mg injection (LOVENOX) 40 mg SUBCUTANEOUS DAILY - sodium chloride 0.9 % (flush) 3-5 mL (BD POSIFLUSH) 3-5 mL INTRAVENOUS q 12 H - ondansetron 4 mg tab(s) (ZOFRAN) 4 mg ORAL q 6 H PRN Or - ondansetron (PF) 4 mg injection (ZOFRAN) 4 mg INTRAVENOUS q 6 H PRN - acetaminophen 650 mg tab(s) (TYLENOL) 650 mg ORAL q 6 H PRN - atorvastatin 10 mg tab(s) (LIPITOR) 10 mg ORAL AT BEDTIME - hydrALAZINE 25 mg tab(s) (APRESOLINE) 25 mg ORAL q 8 H PRN - gabapentin 100 mg cap(s) (NEURONTIN) 100 mg ORAL q 8 H - LORazepam 0.5 mg tab(s) (ATIVAN) 0.5 mg ORAL AT BEDTIME - senna-docusate 8.6-50 mg 1 tablet (SENNA-S) 1 tablet ORAL BID - miconazole 2 % 1 application topical powder (LOTRIMIN AF, DESENEX) 1 application TOPICAL TID 9a/3p/9p - metoprolol succinate ER 25 mg tab(s) (TOPROL XL) 25 mg ORAL DAILY - cefTRIAXone iv piggyback 2 g in dextrose (iso-osmotic) 50 mL (ROCEPHIN) 2 g INTRAVENOUS q 24 H - sodium chloride 0.9 % (flush) 10 mL (BD POSIFLUSH) 10 mL INTRAVENOUS q 12 H - sodium chloride 0.9 % (flush) 20 mL (BD POSIFLUSH) 20 mL INTRAVENOUS PRN - oxyCODONE IR 5 mg tab(s) (ROXICODONE) 5 mg ORAL q 6 H PRN - methadone 10 mg tab(s) (DOLOPHINE) 10 mg ORAL BID OBJECTIVE: Physical Exam: BP 154/56 Pulse 78 Temp 36.9 ?C (98.5 ?F) (Oral) Resp 18 Ht 152.4 cm (5') Wt 98.2 kg (216 lb 9.6 oz) SpO2 98% BMI 42.30 kg/m? GENERAL APPEARANCE: Comfortable Abdo: soft, non-tender. NEURO: Awake, alert, no involuntary motions Lab data: WBC (thou/cmm) Date Value 04/22/2020 8.89 04/20/2020 10.28 2020 6.82 04/14/2020 8.02 07/28/2013 5.1 Platelet Count (thou/cmm) Date Value 04/22/2020 249 04/20/2020 277 2020 324 04/14/2020 317 07/28/2013 288 Creatinine (mg/dL) Date Value 04/22/2020 1.05 04/21/2020 1.47 04/18/2020 1.05 04/17/2020 1.22 2020 0.99 AST (U/L) Date Value 2020 see below ALT (U/L) Date Value 2020 13 DATA: Diagnostic Tests Reviewed for Today's Visit: Most recent labs Most recent imaging Microbiology data: Positive Micro-30 Days No results found for the last 720 hours. Ecoli 04/13/20 Ampicillin $ >=32 R Ampicillin/Sulbactam $ >=32 R Cefazolin $ <=4 S Cefepime $ <=0.12 S Ceftriaxone $ <=0.25 S Ciprofloxacin $ >=4 R Ertapenim $$$ <=0.12 S ESBL NEG Gentamicin $ >=16 R Imipenem *NF <=0.25 S Levofloxacin $ >=8 R Nitrofurantoin $ <=16 S Piperacillin/Tazobact am $$ 8 S Tobramycin $ 8 I Trimethoprim/Sulfamet ho $ >=320 R Reference Range: S= Susceptible, I= Intermediate, R= Resistant MICS are expressed in micrograms per mL Giovani Shin MD Infectious Disease Res[facility] [place] Pager: [phone] [facility] CRPon 04-22-2020 CRP [Mass/Vol] 6.3 mg/dL High 0.0-0.8 [facility] Comment on above: Performed By: #### G FR #### [facility] [address] [place] [address] Hemogramon 04-22-2020 Erythrocyte distribution width (RBC) [Ratio] 12.7 % Normal 11.7-14.4 [facility] Comment on above: Performed By: #### G FR #### [facility] [address] [place] [address] Hematocrit (Bld) [Volume fraction] 29.3 % Low 34.1-44.9 [facility] Comment on above: Performed By: #### G FR #### [facility] [address] [place], [place] [address] Hemoglobin (Bld) [Mass/Vol] 8.7 g/dL Low 11.2-15.7 [facility] Comment on above: Performed By: #### G FR #### [facility] [address] [place] [address] MCH (RBC) [Entitic mass] 30.1 pg Normal 25.6-32.2 [facility] Comment on above: Performed By: #### G FR #### [facility] [address] [place] [address] MCHC (RBC) [Mass/Vol] 29.7 % Low 31.6-34.8 [facility] Comment on above: Performed By: #### G FR #### [facility] [address] [place] [address] MCV (RBC) [Entitic vol] 101.4 fL High 79.4-94.8 [facility] Comment on above: Performed By: #### G FR #### [facility] [address] [place] [address] Platelet mean volume (Bld) [Entitic vol] 10.6 fL Normal 9.4-12.3 [facility] Comment on above: Performed By: #### G FR #### [facility] [address] [place], [place] [address] Platelets (Bld) [#/Vol] 249 thou/cmm Normal 182-369 [facility] Comment on above: Performed By: #### G FR #### [facility] [address] [place], [place] [address] RBC (Bld) [#/Vol] 2.89 mil/cmm Low 3.93-5.22 [facility] Comment on above: Performed By: #### G FR #### [facility] [address] [place] [address] RDW SD 47.6 fl High 36.4-46.3 [facility] Comment on above: Performed By: #### G FR #### [facility] [address] [place] [id number] WBC (Bld) [#/Vol] 8.89 thou/cmm Normal 3.98-10.04 [facility] Comment on above: Performed By: #### G FR #### [facility] [address] [place] [address] MDRD GFRon 04-22-2020 GFR/1.73 sq M predicted among non-blacks MDRD (S/P/Bld) [Vol rate/Area] 51.09 mL/min/{1.73_m2} Normal >60mL/min/1 .73m2 [facility] Comment on above: Result Comment: If t he patient is , multiply the result by 1.210. Performed By: #### G FR #### [place] [address] PROCEDUREon 04-22-2020 PROCEDURE HNO ID: [id number] Author: Nikki (Rn) KIRK Montes Service: PICC Team Author Type: Registered Nurse Type: Procedures Filed: 04/22/2020 10:26 AM Note Text: PICC NURSE INSERTION NOTE DATE OF PROCEDURE: April 22, 2020 TIME OF PROCEDURE: 1000 ORDERING PHYSICIAN: Kip INFORMED CONSENT: Obtained per hospital policy. INDICATION FOR LINE PLACEMENT: COPAT CONDITION OF LINE PLACEMENT: Sterile PRIMARY PROCEDURALIST: Varsha Painting RN RN CHEMICAL DEPENDENCY: Nikki Montes RN PRE-PROCEDURE REVIEW ALLERGIES Allergen Reactions - Macrodantin [Nitrof* GI Upset - Morphine Sulfate GI Upset Known History of Upper Venous Thrombosis: No Known History of Permanent Pacemaker or Automated Implanted Cardiac Device: No Previous Breast Surgery of Lymph Node Dissection: No eGFR Date/Time Value Ref Range Status 04/22/2020 03:53 AM 51.09 >60mL/min/1.73m2 Final Comment: If the patient is , multiply the result by 1.210. History of Renal Disease: No Ultrasound Assessment Complete: Yes PROCEDURE NARRATIVE SAFE PRACTICE Hand Hygiene per Hospital Policy: Yes Skin Preparation Unit Dose Applicator Used: Chloraprep (CHG + alcohol), allowed to dry. Procedure Surface Cleansed with Antimicrobial Wipes: Yes Barriers Used by Proceduralist and all Assisting Personnel: Yes UNIVERSAL PROTOCOL / SAFETY CHECKLIST Procedure to be performed: Peripherally Inserted Central Catheter Sign in Communication: Completed Time Out: Team Confirms the Correct Patient, Correct Procedure, Correct Site and Site Marking, Correct Position (if applicable), Prep and Dry Time (if applicable). Time: 0950 Affirmation of Time Out: N/A Sign Out Discussion: Completed Nikki Montes RN CATHETER PLACEMENT Brand: [employer] Lot: [id number] Number of Lumens: 1 Type of PICC: Power Injectable PICC Lumen Size: 4 Albanian PLACEMENT TECHNIQUE Lidocaine: Yes, Lidocaine 1% Volume 2 mL Subcutaneous Modified Seldinger Technique Used to Place Line via the Right Basilic Ultrasound Guidance: Yes Number of Attempts at Insertion: 1 Ensured control of guidewire during all aspects of the procedure: Yes Accounted for entire guidewire upon removal: Yes Internal Length: 41 cm External Length: 0 cm Trim Length: 41 cm Mid-Arm Circumference: 26 centimeters Post Insertion Pain Level Related to Procedure: 0 Action Taken to Address Pain: None needed Verified Placement: Blood return and flushes with ease and Tip location system or device indicates the tip is located in the SVC/CAJ. Line was Flushed with 20 cc normal saline Line Secured with: Securement device Sterile Dressing Applied and Dated: Yes Sterile Caps on all Ports Prior to Leaving Procedure Area: Yes, Disinfection caps applied SPECIMENS: None COMPLICATIONS: None Patient Education Materials: Placed in chart [facility] Central Line Insertion Checklist utilized during this procedure QUESTIONS or PROBLEMS: Call [phone] SIGNATURE: Nikki Montes RN PATIENT NAME: Patricia Hawley DATE: April 22, 2020 TIME: 10:19 AM PAGER/CONTACT PHONE: [facility] PROGRESSon 04-22-2020 PROGRESS HNO ID: [id number] Author: Loulou Renee Service: Hospital Medicine Author Type: Physician Type: Progress Notes Filed: 04/23/2020 3:07 PM Note Text: Hospital Medicine Progress Note Patient Name: Patricia Hawley Admission Date: 04/13/2020 Reason for Visit: Discitis, hypotension IMPRESSION AND PLAN: Active Hospital Problems Diagnosis - Obesity, Class III, BMI >= 40 - UTI (urinary tract infection) 1. ?T12-L1 and T11-T12 discitis, status post biopsy, still on IV antibiotic, most likely patient will require PICC line 6 weeks of antibiotic, the biopsy was nonconclusive, case was reviewed with Dr. Shin. ? 2. ?Acute UTI with pyelonephritis secondary to Escherichia coli, finish 5 days of Rocephin. ? 3. ?Generalized weakness with debility, uses a wheelchair at all time. ?Continue with therapy. ? 4. ?Hypertension which is better today after hydration with IV fluid. 5. ?Chronic pain syndrome managed by methadone and Oxycodone IR -appreciate pain management input. ? 6. ?COPD with chronic hypoxic respiratory failure which seems to be stable on 2 L nasal cannula which is her baseline. ? 7. ?Chronic kidney disease stage III creatinine is better today down to 1.05 after receiving IV fluid and acute renal insufficiency resolved. ? 8. ?Anxiety stable on current medication. ? spoke with her daughter at bedside and plan to proceed with discharge tomorrow to detention facility. Patient Checklist Prophylaxis: VTE - Yes Code Status: Code Status: Full Code Disposition: SNF Loulou Renee MD ==== Interval History: Patient was seen and examined for hypotension and worsening kidney function both of them improved today with IV fluids, patient is doing okay otherwise, she is forgetful, Covid 19 test has been ordered and management are being made for discharge detention facility tomorrow, PICC line was placed today. PHYSICAL EXAM: BP 109/53 Pulse 70 Temp 36.9 ?C (98.4 ?F) (Oral) Resp 18 Ht 152.4 cm (5') Wt 100.2 kg (221 lb) SpO2 97% BMI 43.16 kg/m? PHYSICAL EXAMINATION: General appearance: Patient is sitting in bed in no acute respiratory distress. Awake, alert, oriented *[address] Skin: Normal temperature, no ecchymosis. Lungs: Lungs clear to auscultation. No wheezing, rhonchi, rales, no use of accessory respiratory muscles. Heart: RRR, normal s1s2, no murmurs Abdomen: Positive for bowel sounds, soft abdomen, non-tender. Extremities: No pitting edema bilateral legs. MEDICATIONS: docusate sodium (COLACE) 100 mg capsule Take 100 mg by mouth as needed for Constipation. ferrous sulfate 325 mg (65 mg iron) tablet Take 325 mg by mouth three times daily with meals. hydroCHLOROthiazide (HYDRODIURIL, ESIDRIX) 25 mg tablet Take 25 mg by mouth once daily. LISINOPRIL ORAL Take 10 mg by mouth once daily. metoprolol tartrate, short acting, (LOPRESSOR) 50 mg tablet Take 50 mg by mouth twice daily. LORazepam (ATIVAN) 0.5 mg Take 0.5 mg by mouth twice daily. zolpidem (AMBIEN) 5 mg tablet Take 5 mg by mouth at bedtime as needed. oxyCODONE IR (ROXICODONE) 5 mg immediate release tablet Take 1 tablet by mouth every 6 hours as needed for up to 7 days. naloxone 4 mg/actuation nasal spray (NARCAN) Use 1 spray in one nostril as needed for overdose. May repeat every 2 to 3 min in alternating nostrils until medical assistance is available methadone (DOLOPHINE) 10 mg tablet Take 1 tablet by mouth twice daily for 7 days. naloxone 4 mg/actuation nasal spray (NARCAN) Use 1 spray in one nostril as needed for overdose. May repeat every 2 to 3 min in alternating nostrils until medical assistance is available Methenamine Hippurate (HIPREX) 1 gram tablet Take 1 g by mouth twice daily with meals. albuterol (PROVENTIL) 2.5 mg /3 mL (0.083 %) nebulizer solution Use 3 mL via nebulizer every 4 hours. diclofenac sodium (VOLTAREN) 1 % topical gel Apply to affected area four times daily. predniSONE (DELTASONE) 20 mg tablet Take 40 mg by mouth once daily. sertraline (ZOLOFT) 100 mg tablet Take 100 mg by mouth once daily. citalopram (CELEXA) 20 mg tablet Take 20 mg by mouth once daily. Gabapentin 300 mg Tab Take 100 mg by mouth three times daily. meloxicam (MOBIC) 7.5 mg tablet Take 7.5 mg by mouth once daily. pravastatin 40 mg tablet Take 40 mg by mouth once daily. Multivitamins-Mineral s-Lutein (CENTRUM SILVER) Tab Take 1 tablet by mouth once daily. DULoxetine (CYMBALTA) 30 mg capsule Take 1 a day for 2 weeks, then increase to 2 pills a day. LISINOPRIL-HYDROCHLOR OTHIAZIDE 10-12.5 mg ORAL per tablet 1 tablet once daily. metoprolol succinate ER (TOPROL XL) 50 mg 24 hr tablet Take 50 mg by mouth once daily. oxyCODONE-acetaminoph en (PERCOCET) 5-325 mg ORAL tablet Take 1 tablet by mouth every 4 hours as needed. Current Facility-Administered Medications Medication Dose Route Frequency - citalopram 20 mg tab(s) (CeleXA) 20 mg ORAL DAILY - DULoxetine 30 mg cap(s) (CYMBALTA) 30 mg ORAL DAILY - sertraline 100 mg tab(s) (ZOLOFT) 100 mg ORAL DAILY - ferrous sulfate 325 mg tab(s) 325 mg ORAL TID w MEALS - albuterol 2.5 mg /3 mL (0.083 %) 2.5 mg (PROVENTIL) 3 mL INHALATION q 6 H PRN - enoxaparin 40 mg injection (LOVENOX) 40 mg SUBCUTANEOUS DAILY - sodium chloride 0.9 % (flush) 3-5 mL (BD POSIFLUSH) 3-5 mL INTRAVENOUS q 12 H - ondansetron 4 mg tab(s) (ZOFRAN) 4 mg ORAL q 6 H PRN Or - ondansetron (PF) 4 mg injection (ZOFRAN) 4 mg INTRAVENOUS q 6 H PRN - acetaminophen 650 mg tab(s) (TYLENOL) 650 mg ORAL q 6 H PRN - atorvastatin 10 mg tab(s) (LIPITOR) 10 mg ORAL AT BEDTIME - hydrALAZINE 25 mg tab(s) (APRESOLINE) 25 mg ORAL q 8 H PRN - gabapentin 100 mg cap(s) (NEURONTIN) 100 mg ORAL q 8 H - LORazepam 0.5 mg tab(s) (ATIVAN) 0.5 mg ORAL AT BEDTIME - senna-docusate 8.6-50 mg 1 tablet (SENNA-S) 1 tablet ORAL BID - miconazole 2 % 1 application topical powder (LOTRIMIN AF, DESENEX) 1 application TOPICAL TID 9a/3p/9p - metoprolol succinate ER 25 mg tab(s) (TOPROL XL) 25 mg ORAL DAILY - cefTRIAXone iv piggyback 2 g in dextrose (iso-osmotic) 50 mL (ROCEPHIN) 2 g INTRAVENOUS q 24 H - sodium chloride 0.9 % (flush) 10 mL (BD POSIFLUSH) 10 mL INTRAVENOUS q 12 H - sodium chloride 0.9 % (flush) 20 mL (BD POSIFLUSH) 20 mL INTRAVENOUS PRN - oxyCODONE IR 5 mg tab(s) (ROXICODONE) 5 mg ORAL q 6 H PRN - methadone 10 mg tab(s) (DOLOPHINE) 10 mg ORAL BID Lab data: CBC: Recent Labs 04/22/20 0353 04/20/20 1024 WBC 8.89 10.28* HB 8.7* 10.1* HCT 29.3* 32.6* PLT 249 277 MCV 101.4* 98.5* COAG: No results for input(s): APTT, INR in the last 168 hours. BMP: Recent Labs 04/22/20 0353 04/21/20 0215 04/18/20 0645 04/17/20 0553 GLUC 92 113* 92 78 NA 137 137 140 139 K 3.8 4.0 3.9 4.2 CHLOR 102 100 100 97 CO2 28 29 29 31* ANION 7* 8* 11 11 BUN 36* 41* 26* 28* CREAT 1.05* 1.47* 1.05* 1.22* CHEM: Recent Labs 04/22/20 0353 04/21/20 0215 04/18/20 0645 04/17/20 0553 CA 8.9 8.8 9.1 9.3 Plan of care discussion: Plan of care discussed with: Provider, RN, Patient. Loulou Renee MD Pager #[phone] 4:05 PM April 22, 2020 Disclaimer: Portions of this note have been generated using [employer] voice recognition software. Reasonable efforts were made to correct any dictation errors that resulted due to the programming of this software but some may still be present. [facility] PROGRESS HNO ID: [id number] Author: La Lee Service: Nephrology Author Type: Physician Type: Progress Notes Filed: 04/22/2020 1:49 PM Note Text: Subjective. No new events 04/21/20 1841 04/22/20 0300 04/22/20 0744 04/22/20 1103 BP: 138/56 (!) 114/43 154/56 Pulse: 76 65 78 Resp: 14 16 18 Temp: 36.4 ?C (97.6 ?F) 36.7 ?C (98.1 ?F) 36.9 ?C (98.5 ?F) TempSrc: Oral Oral Oral SpO2: 99% 100% 98% Weight: 100.2 kg (221 lb) Height: No pallor No icterus No JVD Heart - S1 S2 Lungs - clear Abdomen - soft, non distended, no organomegaly LE - no edema, No cyanosis No rash AAO x 3 CMP: Glucose 113 04/21/2020 BUN 41 04/21/2020 Creatinine 1.47 04/21/2020 Sodium 137 04/21/2020 Potassium 4.0 04/21/2020 Chloride 100 04/21/2020 CO2 29 04/21/2020 Protein, Total 6.1 2020 Albumin 3.2 2020 Calcium 8.8 04/21/2020 Alkaline Phosphatase 58 2020 Bilirubin, Total <0.2 2020 AST see below 2020 ALT 13 2020 Hemoglobin (g/dL) Date Value 07/28/2013 12.0 HGB (g/dL) Date Value 04/22/2020 8.7 Hematocrit (%) Date Value 04/22/2020 29.3 WBC (thou/cmm) Date Value 04/22/2020 8.89 Platelet Count (thou/cmm) Date Value 04/22/2020 249 Assessment/ Plan CKD 3 Now COLIN ? Related to volume depletion Cr is better and back to baseline Neurosurgery note reviewed [facility] PROGRESS HNO ID: [id number] Author: Noa Verduzco Service: Neurosurgery Author Type: Nurse Practitioner Type: Progress Notes Filed: 04/22/2020 4:00 PM Note Text: PROGRESS NOTE NEUROSURGERY SERVICE DATE: 04/22/2020 SERVICE TIME: 0945 Subjective INTERVAL HPI No new symptoms. Daughter at bedside. Questions answered. Pt and daughter do not want any surgical intervention at this time and would like to continue with IV antibiotics for now Current Facility-Administered Medications Medication Dose Route Frequency - citalopram 20 mg tab(s) (CeleXA) 20 mg ORAL DAILY - DULoxetine 30 mg cap(s) (CYMBALTA) 30 mg ORAL DAILY - sertraline 100 mg tab(s) (ZOLOFT) 100 mg ORAL DAILY - ferrous sulfate 325 mg tab(s) 325 mg ORAL TID w MEALS - albuterol 2.5 mg /3 mL (0.083 %) 2.5 mg (PROVENTIL) 3 mL INHALATION q 6 H PRN - enoxaparin 40 mg injection (LOVENOX) 40 mg SUBCUTANEOUS DAILY - sodium chloride 0.9 % (flush) 3-5 mL (BD POSIFLUSH) 3-5 mL INTRAVENOUS q 12 H - ondansetron 4 mg tab(s) (ZOFRAN) 4 mg ORAL q 6 H PRN Or - ondansetron (PF) 4 mg injection (ZOFRAN) 4 mg INTRAVENOUS q 6 H PRN - acetaminophen 650 mg tab(s) (TYLENOL) 650 mg ORAL q 6 H PRN - atorvastatin 10 mg tab(s) (LIPITOR) 10 mg ORAL AT BEDTIME - hydrALAZINE 25 mg tab(s) (APRESOLINE) 25 mg ORAL q 8 H PRN - gabapentin 100 mg cap(s) (NEURONTIN) 100 mg ORAL q 8 H - LORazepam 0.5 mg tab(s) (ATIVAN) 0.5 mg ORAL AT BEDTIME - senna-docusate 8.6-50 mg 1 tablet (SENNA-S) 1 tablet ORAL BID - miconazole 2 % 1 application topical powder (LOTRIMIN AF, DESENEX) 1 application TOPICAL TID 9a/3p/9p - metoprolol succinate ER 25 mg tab(s) (TOPROL XL) 25 mg ORAL DAILY - cefTRIAXone iv piggyback 2 g in dextrose (iso-osmotic) 50 mL (ROCEPHIN) 2 g INTRAVENOUS q 24 H - sodium chloride 0.9 % (flush) 10 mL (BD POSIFLUSH) 10 mL INTRAVENOUS q 12 H - sodium chloride 0.9 % (flush) 20 mL (BD POSIFLUSH) 20 mL INTRAVENOUS PRN - oxyCODONE IR 5 mg tab(s) (ROXICODONE) 5 mg ORAL q 6 H PRN - methadone 10 mg tab(s) (DOLOPHINE) 10 mg ORAL BID Objective Physical Exam Performed: General - obese, calm, pleasant Resp - even unlabored GI - abdomen soft NT, ND Skin - no lesions, abrasions or bruises Neuro - A+O x3, sensation intact to Bilat legs, diminished to Bilat feet, ZUNIGA, strength 4+/5 BUE and 4-/5 BLE VITAL SIGNS 24 HOUR REVIEW: Patient Vitals for the past 24 hrs: BP Temp Temp src Pulse Resp SpO2 Weight 04/21/20 1121 (!) 119/45 ? 04/21/20 0849 (!) 95/47 ? 98.2 kg (216 lb 9.6 oz) 04/21/20 0713 (!) 116/43 36.8 ?C (98.3 ?F) Oral 67 18 99 % ? 04/21/20 0214 (!) 110/46 36.6 ?C (97.9 ?F) Oral (!) 55 18 98 % ? 04/20/20 1835 (!) 110/49 37.4 ?C (99.3 ?F) Axillary 60 18 98 % ? 04/20/20 1535 118/85 ? ? (!) 57 18 91 % ? Assessment/Plan Active Problems: 75 yo female with back pain, inability to ambulate for years with advanced destructive lesion T12-L1, severe cervical stenosis. Lumbar Biopsy was non-diagnostic Pt and dtr would like to avoid surgery, IF patient would like to pursue surgical intervention, she would need to have done at [facility] as an outpatient. Med mgmt ID following Continue IV antibiotics UTI (urinary tract infection) POA: Yes Assessment AND Plan: Obesity, Class III, BMI >= 40 POA: Unknown Assessment AND Plan: Resolved Problems: * No resolved hospital problems. * Medication and Non-Pharmacologic VTE Prophylaxis/Anticoagu lants Anticoagulant AND Antiplatelet Medications (From admission, onward) Start Dose Route Frequency Ordered Stop 04/14/20 0900 enoxaparin 40 mg injection (LOVENOX) (Medical Risk Categories) 40 mg SUBCUTANEOUS DAILY 04/14/20 0137 -- 04/14/20144 vte non-pharmacologic prophylaxis - none indicated (fl,oh) 04/14/20144 activity - mobilize patient (in,oh) VTE Prophylaxis: VTE prophylaxis appropriate SIGNATURE: Noa Verduzco APRN.CNP PATIENT NAME: Patricia Hawley DATE: April 22, 2020 TIME: 12:58 PM PAGER/CONTACT #: [phone] [facility] PROGRESS HNO ID: [id number] Author: Alyson Thomas Service: Pain Management Author Type: Physician Type: Progress Notes Filed: 04/22/2020 8:54 AM Note Text: Name: PATRICIA HAWLEY Age: [age] year old PAIN MANAGEMENT: Acute on chronic back pain, T11-12, T12-L1 osteomyelitis/disciti s; multilevel degenerative disc disease Pain Description: Intermittent pain low back; on her right side. Worse with movement. Limited activity. 24H Comfort Meds: Tylenol 650 mg x0 Cymbalta 30 mg daily Gabapentin 100 mg x 3 Methadone 15 mg a.m., 10 mg p.m. and 10 mg at bedtime Oxycodone 5 mg x 1 Lorazepam 0.5 mg hs x 1 Interval HPI: Remains afebrile, vital signs stable, on 3 L by nasal cannula, patient was more sleepy yesterday. Given IV fluids for mild COLIN; creatinine 1.03; mild hypotension yesterday ID plans for [address] Benitez to discussed with patient and daughter option for surgical intervention. 04/20 nephrology consult CKD3 stable GFR 04/[address] extensive postsurgical changes. Chronic malunion of C2 fracture, cervical spondylosis with moderate stenosis at C7-T1 with possible cord flattening/compressio n 04/19 T12-L1 lesion biopsy nondiagnostic Subjective HPI: 75-year-old female was transferred from [facility] after diagnostic work-up demonstrated T12-L1 discitis/osteomyeliti s and possible malignant infiltration. Patient initially presented there with right-sided flank and back pain. She was treated for UTI and found to have moderate hydronephrosis. 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 Pain regimen confirmed to ECF and includes gabapentin 100 mg 3 times daily, Ativan 0.5 mg twice daily as needed, oxycodone 5 mg every 4 hours PRN methadone 15 mg a.m., 10 mg p.m. and 10 mg at at bedtime. She has a history of chronic back pain as well as diffuse osteoarthritis status post right SINAN and right TKA. She states she last walked independently a while ago. Per chart, patient had prior T12/L5 laminectomy, L2-L5 fusion, status post occiput to C6 fusion.she has chronic bilateral foot drop. She is wheelchair-bound. OARRS Review: Negative. Does not reflect ECF pain regimen as documented above Current Facility-Administered Medications Medication Dose Route Frequency Provider Last Rate Last Dose - oxyCODONE IR 5 mg tab(s) (ROXICODONE) 5 mg ORAL q 6 H PRN Alyson K Scantling - methadone 10 mg tab(s) (DOLOPHINE) 10 mg ORAL BID Alyson K Scantpretty - metoprolol succinate ER 25 mg tab(s) (TOPROL XL) 25 mg ORAL DAILY Muhannad Víctor 25 mg at 04/21/20 0859 - NaCl 0.9% iv infusion 75 mL/hr INTRAVENOUS CONTINUOUS Muhannad Víctor 75 mL/hr at 04/21/20 0904 75 mL/hr at 04/21/20 0904 - cefTRIAXone iv piggyback 2 g in dextrose (iso-osmotic) 50 mL (ROCEPHIN) 2 g INTRAVENOUS q 24 H Giovani Shin 100 mL/hr at 04/21/20 1838 2 g at 04/21/20 1838 - sodium chloride 0.9 % (flush) 10 mL (BD POSIFLUSH) 10 mL INTRAVENOUS q 12 H Giovani Shin 10 mL at 04/21/202043 - sodium chloride 0.9 % (flush) 20 mL (BD POSIFLUSH) 20 mL INTRAVENOUS PRN Giovani Shin - miconazole 2 % 1 application topical powder (LOTRIMIN AF, DESENEX) 1 application TOPICAL TID 9a/3p/9p Muhannad Víctor 1 application at 04/21/202046 - senna-docusate 8.6-50 mg 1 tablet (SENNA-S) 1 tablet ORAL BID Abed Al-Hamid Ghandour 1 tablet at 04/21/204 - hydrALAZINE 25 mg tab(s) (APRESOLINE) 25 mg ORAL q 8 H PRN Abed Al-Hamid Ghandour 25 mg at 04/15/20 1110 - gabapentin 100 mg cap(s) (NEURONTIN) 100 mg ORAL q 8 H Abed Al-Hamid Ghandour 100 mg at 04/22/20 0521 - LORazepam 0.5 mg tab(s) (ATIVAN) 0.5 mg ORAL AT BEDTIME Abed Al-Hamid Ghandour 0.5 mg at 04/21/20 2045 - citalopram 20 mg tab(s) (CeleXA) 20 mg ORAL DAILY Abed Al-Hamid Ghandour 20 mg at 04/21/20 0900 - DULoxetine 30 mg cap(s) (CYMBALTA) 30 mg ORAL DAILY Abed Al-Hamid Ghandour 30 mg at 04/21/20 0857 - sertraline 100 mg tab(s) (ZOLOFT) 100 mg ORAL DAILY Abed Al-Hamid Ghandour 100 mg at 04/21/20 0859 - ferrous sulfate 325 mg tab(s) 325 mg ORAL TID w MEALS Abed Al-Hamid Ghandour 325 mg at 04/21/20 1500 - albuterol 2.5 mg /3 mL (0.083 %) 2.5 mg (PROVENTIL) 3 mL INHALATION q 6 H PRN Abed Al-Hamid Ghandour - enoxaparin 40 mg injection (LOVENOX) 40 mg SUBCUTANEOUS DAILY Abed Al-Hamid Ghandour 40 mg at 04/21/20 0856 - sodium chloride 0.9 % (flush) 3-5 mL (BD POSIFLUSH) 3-5 mL INTRAVENOUS q 12 H Abed Al-Hamid Ghandour 5 mL at 04/21/20 2045 - ondansetron 4 mg tab(s) (ZOFRAN) 4 mg ORAL q 6 H PRN Abed Al-Hamid Ghandour 4 mg at 04/14/20 0951 Or - ondansetron (PF) 4 mg injection (ZOFRAN) 4 mg INTRAVENOUS q 6 H PRN Abed Al-Hamid Ghandour 4 mg at 04/19/20 1605 - acetaminophen 650 mg tab(s) (TYLENOL) 650 mg ORAL q 6 H PRN Abed Al-Hamid Ghandour 650 mg at 04/19/20 175 - atorvastatin 10 mg tab(s) (LIPITOR) 10 mg ORAL AT BEDTIME Abed Al-Hamid Ghandour 10 mg at 04/21/202043 - docusate sodium (COLACE) 100 mg capsule, Take 100 mg by mouth as needed for Constipation., Disp: , Rfl: - ferrous sulfate 325 mg (65 mg iron) tablet, Take 325 mg by mouth three times daily with meals., Disp: , Rfl: - hydroCHLOROthiazide (HYDRODIURIL, ESIDRIX) 25 mg tablet, Take 25 mg by mouth once daily., Disp: , Rfl: - LISINOPRIL ORAL, Take 10 mg by mouth once daily., Disp: , Rfl: - metoprolol tartrate, short acting, (LOPRESSOR) 50 mg tablet, Take 50 mg by mouth twice daily., Disp: , Rfl: - LORazepam (ATIVAN) 0.5 mg, Take 0.5 mg by mouth twice daily., Disp: , Rfl: - zolpidem (AMBIEN) 5 mg tablet, Take 5 mg by mouth at bedtime as needed., Disp: , Rfl: - Methenamine Hippurate (HIPREX) 1 gram tablet, Take 1 g by mouth twice daily with meals., Disp: , Rfl: - albuterol (PROVENTIL) 2.5 mg /3 mL (0.083 %) nebulizer solution, Use 3 mL via nebulizer every 4 hours., Disp: , Rfl: - diclofenac sodium (VOLTAREN) 1 % topical gel, Apply to affected area four times daily., Disp: , Rfl: - predniSONE (DELTASONE) 20 mg tablet, Take 40 mg by mouth once daily., Disp: , Rfl: - sertraline (ZOLOFT) 100 mg tablet, Take 100 mg by mouth once daily., Disp: , Rfl: - [DISCONTINUED] methadone (DOLOPHINE) 10 mg tablet, Take 10 mg by mouth every 4 hours as needed. 10 mg at 12:00pm , 22:00 pm and 15 mg in the AM, Disp: , Rfl: - citalopram (CELEXA) 20 mg tablet, Take 20 mg by mouth once daily., Disp: , Rfl: - Gabapentin 300 mg Tab, Take 100 mg by mouth three times daily. , Disp: , Rfl: - meloxicam (MOBIC) 7.5 mg tablet, Take 7.5 mg by mouth once daily., Disp: , Rfl: - pravastatin 40 mg tablet, Take 40 mg by mouth once daily., Disp: , Rfl: - Multivitamins-Mineral s-Lutein (CENTRUM SILVER) Tab, Take 1 tablet by mouth once daily., Disp: , Rfl: - DULoxetine (CYMBALTA) 30 mg capsule, Take 1 a day for 2 weeks, then increase to 2 pills a day., Disp: 60 capsule, Rfl: 3 - LISINOPRIL-HYDROCHLOR OTHIAZIDE 10-12.5 mg ORAL per tablet, 1 tablet once daily., Disp: , Rfl: - metoprolol succinate ER (TOPROL XL) 50 mg 24 hr tablet, Take 50 mg by mouth once daily. , Disp: , Rfl: - oxyCODONE-acetaminoph en (PERCOCET) 5-325 mg ORAL tablet, Take 1 tablet by mouth every 4 hours as needed. , Disp: , Rfl: Social History Tobacco Use - Smoking status: Never Smoker - Smokeless tobacco: Never Used Substance Use Topics - Alcohol use: No - Drug use: No No family history on file. PAST SURGICAL HISTORY Procedure Laterality Date - LAMINECTOMY,CERVICAL Laminectomy, cervical fusion x2 - PAST SURGICAL HISTORY OF bladder suspenion x2 - REPAIR ROTATOR CUFF,ACUTE Rotator cuff repair bilat - TOTAL HIP REPLACEMENT Hip replacement, total - TOTAL KNEE REPLACEMENT Knee replacement, total - VAGINAL HYSTERECTOMY Hysterectomy, vaginal ROS: All of the following reviewed and negative except as noted below: Significant for HPI GENERAL: no fever, chills, sweats, weight loss, fatigue, generalized weakness HEENT: no headache, vision changes, eye discomfort, hearing change, ear discomfort, sinus pain, nasal discharge or congestion, oral lesions, soreness, dental problem NECK: no adenopathy, discomfort, change in ROM CHEST: no shortness of breath, dyspnea on exertion, wheezing, cough, sputum production or chest pain HEART: no chest pain, palpitations, syncope ABDOMEN: no nausea, vomiting, constipation, diarrhea, abdominal pain : no dysuria, urgency, frequency, history of stones, incontinence NEURO: no confusion or alteration in consciousness, slurred speech, seizure, focal weakness EXTREMITIES: no new pain, edema, change in ROM HEME: no new adenopathy, bruises, petechiae PSYCH: no depression, anxiety, agitation PAIN PSYCHIATRIC EXAM: GENERAL: alert, oriented to person, place JUDGMENT AND INSIGHT: Limited APPEARANCE: neatly groomed DEMEANOR: coooperative, not hostile, mistrustful, preoccupied, or demanding ACTIVITY: normal, not hyperactive or hypoactive, no tremors, tics EYE CONTACT: normal SPEECH: normal, rate, volume, articulation, coherence, spontaneity MOOD: normal, without overt sadness, grief, anxiety, appropriate to situation IDEATION: Deferred mEMORY: Impaired PHYSICAL EXAMINATION: GENERAL: well nourished and developed; pleasant mild confusion; no acute distress; alert and oriented x 2; limited judgement and insight HEENT: no evidence of trauma; cranial nerves intact; eyes clear EOMI; no hearing deficits apparent; nasal passages unremarkable; throat and mucous membranes clear NECK: supple without lymphadenopathy; no JVD; no thyromegaly CHEST: clear bilaterally to auscultation; normal chest movement; no rales or rhonchi HEART: regular rate and rhythm, normal S1 and S2, no murmurs, clicks, rubs, or gallops ABDOMEN: soft; nondistended; bowel sounds present; no hepatomegaly; no splenomegaly; no tenderness EXTREMITIES: no evidence of clubbing; no cyanosis; no deformity; no joint effusion; no edema NEURO: cranial nerves intact; no confusion; no tremor; sensorium normal; bilateral lower extremity weakness and foot drop SKIN: no rash; no skin breakdown; no decubitus lesions HEME: no bruising; no adenopathy PSYCH: no evidence of depression; no anxiety; no agitation; no apparent hallucinations BP 154/56 Pulse 78 Temp 36.9 ?C (98.5 ?F) (Oral) Resp 18 Ht 152.4 cm (5') Wt 98.2 kg (216 lb 9.6 oz) SpO2 98% BMI 42.30 kg/m? BMI 42.30 kg/(m2) Date 04/16/20 0700 - 04/17/20 0659 Shift 3409-9728 7860-7900 2539-9152 24 Hour Total INTAKE PO 240 240 Shift Total 240 240 OUTPUT Shift Total Weight (kg) 96.9 96.9 96.9 96.9 Date 04/15/20 0700 - 04/16/20 0659 04/16/20 07 - 04/17/20 0659 Shift 4501-0977 9563-2394 4441-2985 24 Hour Total 5055-7438 7249-0276 9419-5243 24 Hour Total INTAKE PO 240 240 PO 240 240 Shift Total 240 240 OUTPUT Urine 7538 498 7220 Void (ml) 850 850 Urine Incontinence/Not Saved 1 x 1 x Output ( External Collection Device 04/13/20 2225) 140 621 0287 # of BMs Stool Incontinence 2 x 2 x Shift Total 1662 079 0079 Weight (kg) 100.2 99.3 96.9 96.9 96.9 96.9 96.9 96.9 ABNORMAL/NEW FINDINGS: NONE RADIOLOGY/DIAGNOSTICS : LABORATORY: CBC: Recent Labs 04/22/20 0353 WBC 8.89 RBC 2.89* HB 8.7* HCT 29.3* PLT 249 MCV 101.4* MCH 30.1 MPV 10.6 RDW 12.7 CMP: Recent Labs 04/22/20 0353 NA 137 K 3.8 CHLOR 102 CO2 28 BUN 36* CREAT 1.05* GLUC 92 CA 8.9 ANION 7* Heme: No results for input(s): RETICP, ABSRETIC, LD, ANTONIETTA, FE, TIBC, TRANSFERSAT in the last 24 hours. ASSESSMENT ACTIVE PROBLEM LIST Fracture of Cervical Vertebra, C2 (Hcc) Cervical Spinal Stenosis Myelopathy (Hcc) S/P Cervical Spinal Fusion Shoulder Pain Osteoarthritis, Knee Neck pain Cervicalgia Uti (Urinary Tract Infection) Obesity, Class III, BMI >= 40 PLAN: Patient with history of multiple prior spine surgeries as outlined above, wheelchair-bound with bilateral foot drop presents with destructive lesion of L1, T12 which is progressed compared to 2012. Patient with severe cervical stenosis as outlined above on CT Poor functional baseline; no significant change in neurologic function IR guided biopsy 04/[address] Benitez discussion with patient and daughter about option for surgical intervention Opiate dependent prior to admission Patient with some increased sleepiness yesterday; mild A/CKD3- given some IVF per Nephrology Tylenol 650 mg every 6 hours PRN Cymbalta 30 mg daily Gabapentin 100 mg every 8 hours Change methadone 10 mg p.o. twice daily Change oxycodone 5 mg every 6 hours PRN; encouraged paient to use Senna S twice daily Anticipate patient will return to ECF at discharge. Methadone and oxycodone prescriptions printed and placed in chart Alyson Thomas MD [facility] PT EDon 04-22-2020 PT ED HNO ID: [id number] Author: Nikki SarmientoRn) KIRK Montes Service: PICC Team Author Type: Registered Nurse Type: Patient Education Filed: 04/22/2020 10:16 AM Note Text: PATIENT EDUCATION VASCULAR ACCESS TEAM TOPIC: Peripherally Inserted Central Catheter READINESS TO LEARN COGNITIVE ABILITY: Confused at times MOTIVATION TO LEARN: Interested FAMILY SUPPORT: High - Very involved in pt care INSTRUCTION PROVIDED TO: Patient and family member PATIENT LEARNS BEST BY: Individual Instruction FACTORS AFFECTING LEARNING:Other pt confused at times PHYSICAL LIMITATIONS AFFECTING LEARNING: Fatigue and Limited Mobility LEARNING RESPONSE METHOD OF INSTRUCTION: Individual instruction PATIENT / FAMILY RESPONSE: Verbalizes understanding of pre-procedure instructions Verbalizes understanding of post-procedure instructions FOLLOW-UP PLAN: Follow-up with Primary Care SUPPLEMENTAL MATERIAL: PICC Line brochure and [facility] catheter-Associated Bloodstream Infection fact sheetAMBULATORY PATIENT EDUCATION VASCULAR ACCESS TEAM TOPIC: Peripherally Inserted Central Catheter [facility] THERAPY NTon 04-22-2020 THERAPY NT HNO ID: [id number] Author: Racquel Donald Service: Physical Therapy Author Type: Voice Professor Type: Therapy (PT/OT/Speech/Resp) Filed: 04/22/2020 2:40 PM Note Text: Attestation signed by Josue Elizondo) Jonas at 04/22/2020 4:02 PM I reviewed and agree with the documentation corresponding to this therapy visit. SIGNATURE: Josue Mcdaniel, PT DATE: April 22, 2020 TIME: 4:01 PM Physical Therapy Treatment SERVICE DATE: 04/22/2020 SERVICE TIME: 1400 to 1424 ROOM: [id number] Recommended Discharge Disposition: Subacute/SNF Recommended Discharge Disposition Comments: return to ECF with skilled therapies to return to baseline Justification For Post Acute Needs: Anticipate that patient will require daily (5x/wk) skilled therapy in a post-acute facility setting at the time of acute hospital discharge PT Recommendations to Nursing: Utilize bed in chair position;Sit at edge of bed;With assist of 2 people;Not appropriate for OOB activity at this time PT 6 Clicks Score: 8 Precautions/Activity Restrictions: Fall Risk;Lines/Tubes/Drai ns Isolation Type: None ASSESSMENT : Patient Disposition at Start of Session: Supine in Bed;Call Ol[facility]a in Reach;Bed Alarm Patient Disposition at End of Session: Supine in Bed;Call [facility]a in Reach;Bed Alarm Tolerated Full Session Fatigue Patient motivated for therapy and making more effort to assist with leg exercises. Patient able to tolerate sitting at edge of bed with upper extremity support and assist from therapist to maintain anterior pelvic tilt and upright trunk posture. Unsafe to attempt transfer or standing due to fatigue and weakness. Patient with increase tolerance for exercise repetitions today. Goals ongoing. Physical Therapy Problem List: Decreased Activity Tolerance;Functional Mobility Impairment;Decreased Range Of Motion;Decreased Strength Patient /Caregiver Goals: Go To Rehab Goals for Plan of Care: Transfer supine to/from sit with: Minimal Assistance Transfer sit to/from stand with: Moderate Assistance(x2) Goal: sit EOB x10 min completing static and dynamic activity Goal: 2x10 reps bilat LE AROM exercises Progress Toward Goals: Progressing as expected Rehab Potential: Fair PLAN: Treatment Frequency (times per week): 5(1-5) Current admission Treatment Interventions: Education;Joint Mobility;Strengthenin g;Functional Mobility Training;Balance Training Plan of Care developed with: Patient TREATMENT INTERVENTIONS: Therapy Diagnosis: Reduced mobility-other;Muscle Weakness (generalized);Abnorma lities of gait and mobility-other Interventions Provided: Therapeutic Exercise (73903);Therapeutic Activity (33284) Therapeutic Exercise (40952) Treatment Minutes: 12 1 unit Skilled Intervention(s): Instruction in therapeutic exercise for both legs: ankle pump (with manual assist), quad set, glute set, adductor set, hip abduction/adduction, heel slide, short arc quad, and long arc quad x 15 reps with min assist. Verbal and tactile cuing provided to breathe, greater eccentric quad control, maintain proper alignment and attention to task. Therapeutic Activity (04539) Treatment Minutes: 12 1 unit Skilled Intervention(s): Instructed patient in supine to and from sit pushing with upper extremities to sit up with head of bed at 40 degrees to sit up and bed flat to return to bed. Assist of 2 to scoot with drawsheet to head of bed in supine. Patient requires assist with both legs and her trunk to sit up and with both legs to return to bed. Worked on sitting at edge of bed with 1-2 upper extremities for support. Tactile cues to facilitate anterior pelvic tilt and erect trunk posture. Patient tolerated ~ 8 minutes of sitting today. Total Timed Code Treatment Minutes: 24 Total Treatment Time (minutes): 24 SUBJECTIVE: Current Hospital Course: Chart reviewed and no significant medical updates relevant to therapy were noted Reason for Physical Therapy Consult : eval and treat Relevant Past Medical History: COPD, HTN, HLD, depression, anemia, spinal stenosis, arthritis Patient Report: voiced no new complaints. Home Environment Patient Lives With: Spouse;Facility Care([facility]) Assistance Available: 24 Hour Entry To Home: No Stairs Number Of Stairs To Bed/Bath: 0 Tub/Shower Type: walk in/roll in Laundry: staff completes Equipment Owned: (electric w/c; slide board or sling lift) Prior Functional Level: Required Assistance;Within Functional Limits Assistance Required With: Transfers;Self Care;Cleaning;Laundry ;Meals;Stairs;Transpo rtation;Wheelchair Mobility;Shopping Prior Functional Level Comments: Patient reports she required assist with all ADLs, total assist for IADls, used power wheelchair and transferred via jareth or slideboard. OBJECTIVE: CURRENT FUNCTIONAL STATUS: Current Functional Mobility Assist Level Additional Information Rolling Maximal Assistance Supine to Sit Maximal Assistance(HOB at 40 degrees) Sit to Supine Maximal Assistance Scooting Maximal Assistance Sit to Stand Stand to Sit Bed to Chair Toilet/Commode Gait Stairs Curb Step Car Transfer Balance: Static Sitting Static Sitting Balance: Fair Patient able to maintain balance with handhold support, may require occasional minimal assistance Dynamic Sitting Balance: Fair Patient accepts minimal challenge, able to maintain balance while turning head/trunk Activity Tolerance: Sitting Activity Sitting Activity: edge of bed Sitting Activity Tolerance (in minutes): 8 JH-HLM: 3: Sit at edge of bed Please see discipline specific clinical documentation flowsheet for complete details for this therapy evaluation/treatment. SIGNATURE: Racquel Donald PTA PATIENT NAME: Patricia Hawley DATE: April 22, 2020 TIME: 2:32 PM [facility] THERAPY NT HNO ID: [id number] Author: Racquel Donald Service: Physical Therapy Author Type: Voice Professor Type: Therapy (PT/OT/Speech/Resp) Filed: 04/22/2020 10:04 AM Note Text: Attestation signed by Josue Mcdaniel at 04/22/2020 4:01 PM I reviewed and agree with the documentation corresponding to this therapy visit. SIGNATURE: Josue Mcdaniel, PT DATE: April 22, 2020 TIME: 4:01 PM PHYSICAL THERAPY MISSED VISIT SERVICE DATE: 04/22/2020 SERVICE TIME: 1000 to 1000 ROOM: [id number] Attempted Treatment. Patient not seen due to Test/Procedure. Returned at patient request for therapy but is now getting ready for PIC line. Will continue to attempt later today as appropriate. SIGNATURE: Racquel Donald PTA PATIENT NAME: Patricia Hawley DATE: April 22, 2020 TIME: 10:03 AM [facility] THERAPY NT HNO ID: [id number] Author: Racquel Donald Service: Physical Therapy Author Type: Voice Professor Type: Therapy (PT/OT/Speech/Resp) Filed: 04/22/2020 9:26 AM Note Text: Attestation signed by Josue SarmientoPt) Jonas at 04/22/2020 4:01 PM I reviewed and agree with the documentation corresponding to this therapy visit. SIGNATURE: Josue Mcdaniel PT DATE: April 22, 2020 TIME: 4:01 PM PHYSICAL THERAPY MISSED VISIT SERVICE DATE: 04/22/2020 SERVICE TIME: 920 to 920 ROOM: [place] [id number] Attempted Treatment. Patient not seen due to Bathing. SIGNATURE: Racquel Donald PTA PATIENT NAME: Patricia Hawley DATE: April 22, 2020 TIME: 9:25 AM [facility] Basic Metabolic Panelon 08-2 Anion gap [Moles/Vol] 8 mmol/L Low 9-18 [facility] Comment on above: Performed By: #### G FR #### [facility] [address] [place], [place] [address] Calcium [Mass/Vol] 8.8 mg/dL Normal 8.5-10.2 [facility] Comment on above: Performed By: #### G FR #### [facility] [address] [place], [place] [address] Chloride [Moles/Vol] 100 mmol/L Normal 97-105 [facility] Comment on above: Performed By: #### G FR #### [facility] [address] [place], [place] [address] CO2 Blood 29 mmol/L Normal 22-30 [facility] Comment on above: Performed By: #### G FR #### [facility] [address] [place], [place] [address] Creatinine [Mass/Vol] 1.47 mg/dL High 0.58-0.96 [facility] Comment on above: Performed By: #### G FR #### [facility] [address] [place], [place] [address] Glucose [Mass/Vol] 113 mg/dL High 74-99 [facility] Comment on above: Result Comment: The [place] [employer] (ADA) provides guidance for cutoff values for fasting glucose and random glucose. The ADA defines fasting as no caloric intake for at least 8 hours.Fasting plasma glucose results between 100 to 125 mg/dL indicate increased risk for diabetes (prediabetes). Fasting plasma glucose results greater than or equal to 126 mg/dL meet the criteria for diagnosis of diabetes. In the absence of unequivocal hyperglycemia, results should be confirmed by repeat testing. In a patient with classic symptoms of hyperglycemia or hyperglycemic crisis, random plasma glucose results greater than or equal to 200 mg/dL meet the criteria for diagnosis of diabetes. Reference: Standards of Medical Care in Diabetes 2016; [place] [employer]. Diabetes Care. 2016;39(Suppl 1). Performed By: #### G FR #### [facility] [address] [place] [address] Potassium [Moles/Vol] 4.0 mmol/L Normal 3.7-5.1 [facility] Comment on above: Performed By: #### G FR #### [facility] [address] [place], [place] [address] Sodium [Moles/Vol] 137 mmol/L Normal 136-144 [facility] Comment on above: Performed By: #### G FR #### [facility] [address] [place], [place] [address] Urea nitrogen [Mass/Vol] 41 mg/dL High 7-21 [facility] Comment on above: Performed By: #### G FR #### [facility] [address] [place], [place] [address] CASE MANAGEMon 04-21-2020 CASE MANAGEM HNO ID: [id number] Author: María (Rn) KIRK Mccall Service: Care Management Author Type: Registered Nurse Type: Care Mgt Progress Note Filed: 04/21/2020 2:21 PM Note Text: CARE MANAGEMENT PROGRESS NOTE SERVICE DATE: 04/21/2020 SERVICE TIME: 2:07 PM LOS: 7 days Chart reviewed, awaiting neurosurgery talk with pt and daughter regarding lumbar surgery. Per ID pt may need at least six weeks of antibiotics at discharge. SIGNATURE: María Mccall RN PATIENT NAME: Patricia Hawley DATE: April 21, 2020 TIME: 2:07 PM PAGER/CONTACT #: [phone] [facility] CONSULT PROGon 04-21-2020 CONSULT PROG HNO ID: [id number] Author: Giovani Shin Service: Infectious Disease Author Type: Physician Type: Consult Progress Note Filed: 04/21/2020 5:41 PM Note Text: PROGRESS NOTE INFECTIOUS DISEASE BRIEF SUMMARY: 74F h/o spinal stenosis s/p T12-L5 decompressive bilateral laminectomy with foraminotomies from T12-L5 for decompression. Presented to [facility] ([facility] on 04/12/20 for R flank pain found to have UTI + hydronephrosis, transferred to [facility] 04/14/20 because of worsening paresthesias of legs, MRI c/t/l showed T12-L1 OM vs discitis vs malignancy. ASSESSMENT: 1. Ecoli UTI + hydronephrosis - treated w ceftriaxone 5 days 2. Chronic T12-L1 vertebral body destruction, worsening s/p IR-guided biopsy 04/19/20 Will treat as spinal infection even though pathology non-diagnostic. Given the increased in size and the presence of acute inflammatory cells and recurrent UTI h/o, it is possible that this is an occult infection. Estimated Creatinine Clearance: 34.8 mL/min (A) (based on SCr of 1.47 mg/dL (H)). RECOMMENDATIONS: - await cx - order picc - plan for ceftriaxone 2g IV daily x 6 weeks - CoPAT in chart (chart review ->Encounters -> (uncheck Hide Add'l Visitis) --> CoPAT Start --> CoPAT Start Report) - await neurosurgery recommendation D/w patient and daughter SUBJECTIVE: Interval Events: 04/15 better mentation today 04/18 no event over the weekend 04/19 went down for IR guided biopsy 04/20 no event overnight 04/21 path report: soft tissue biopsy -- minute fragments of fibrin with a few acute and chronic inflammatory cells and scant crushed bone, non-diagnostic Medications: Current Facility-Administered Medications Medication Dose Route Frequency - citalopram 20 mg tab(s) (CeleXA) 20 mg ORAL DAILY - DULoxetine 30 mg cap(s) (CYMBALTA) 30 mg ORAL DAILY - sertraline 100 mg tab(s) (ZOLOFT) 100 mg ORAL DAILY - ferrous sulfate 325 mg tab(s) 325 mg ORAL TID w MEALS - albuterol 2.5 mg /3 mL (0.083 %) 2.5 mg (PROVENTIL) 3 mL INHALATION q 6 H PRN - enoxaparin 40 mg injection (LOVENOX) 40 mg SUBCUTANEOUS DAILY - sodium chloride 0.9 % (flush) 3-5 mL (BD POSIFLUSH) 3-5 mL INTRAVENOUS q 12 H - ondansetron 4 mg tab(s) (ZOFRAN) 4 mg ORAL q 6 H PRN Or - ondansetron (PF) 4 mg injection (ZOFRAN) 4 mg INTRAVENOUS q 6 H PRN - acetaminophen 650 mg tab(s) (TYLENOL) 650 mg ORAL q 6 H PRN - atorvastatin 10 mg tab(s) (LIPITOR) 10 mg ORAL AT BEDTIME - hydrALAZINE 25 mg tab(s) (APRESOLINE) 25 mg ORAL q 8 H PRN - gabapentin 100 mg cap(s) (NEURONTIN) 100 mg ORAL q 8 H - methadone (DOLOPHINE) tab(s) 15 mg 15 mg ORAL DAILY (6 AM) - methadone 10 mg tab(s) (DOLOPHINE) 10 mg ORAL DAILY AT 12 PM - methadone 10 mg tab(s) (DOLOPHINE) 10 mg ORAL DAILY (10PM) - LORazepam 0.5 mg tab(s) (ATIVAN) 0.5 mg ORAL AT BEDTIME - oxyCODONE IR 5 mg tab(s) (ROXICODONE) 5 mg ORAL q 4 H PRN - senna-docusate 8.6-50 mg 1 tablet (SENNA-S) 1 tablet ORAL BID - miconazole 2 % 1 application topical powder (LOTRIMIN AF, DESENEX) 1 application TOPICAL TID 9a/3p/9p - [START ON 04/22/2020] lisinopril 5 mg tab(s) (ZESTRIL, PRINIVIL) 5 mg ORAL DAILY - metoprolol succinate ER 25 mg tab(s) (TOPROL XL) 25 mg ORAL DAILY - NaCl 0.9% iv infusion 75 mL/hr INTRAVENOUS CONTINUOUS OBJECTIVE: Physical Exam: BP (!) 95/47 Pulse 67 Temp 36.8 ?C (98.3 ?F) (Oral) Resp 18 Ht 152.4 cm (5') Wt 98.2 kg (216 lb 9.6 oz) SpO2 99% BMI 42.30 kg/m? GENERAL APPEARANCE: Comfortable NEURO: Awake, alert, no involuntary motions Lab data: WBC (thou/cmm) Date Value 04/20/2020 10.28 2020 6.82 04/14/2020 8.02 07/28/2013 5.1 07/26/2013 6.7 Platelet Count (thou/cmm) Date Value 04/20/2020 277 2020 324 04/14/2020 317 07/28/2013 288 07/26/2013 274 Creatinine (mg/dL) Date Value 04/21/2020 1.47 04/18/2020 1.05 04/17/2020 1.22 2020 0.99 04/14/2020 0.97 AST (U/L) Date Value 2020 see below ALT (U/L) Date Value 2020 13 DATA: Diagnostic Tests Reviewed for Today's Visit: Most recent labs Most recent imaging Microbiology data: Positive Micro-30 Days No results found for the last 720 hours. Ecoli 04/13/20 Ampicillin $ >=32 R Ampicillin/Sulbactam $ >=32 R Cefazolin $ <=4 S Cefepime $ <=0.12 S Ceftriaxone $ <=0.25 S Ciprofloxacin $ >=4 R Ertapenim $$$ <=0.12 S ESBL NEG Gentamicin $ >=16 R Imipenem *NF <=0.25 S Levofloxacin $ >=8 R Nitrofurantoin $ <=16 S Piperacillin/Tazobact am $$ 8 S Tobramycin $ 8 I Trimethoprim/Sulfamet ho $ >=320 R Reference Range: S= Susceptible, I= Intermediate, R= Resistant MICS are expressed in micrograms per mL Giovani Shin MD Infectious Disease [facility] [place] Pager: [phone] [facility] NUTRITIONon 04-21-2020 NUTRITION HNO ID: [id number] Author: Renetta Joseph RD (Ld) Service: Nutrition Therapy Author Type: Registered Dietitian Type: Nutrition Filed: 04/21/2020 12:02 PM Note Text: NUTRITION THERAPY SCREEN NOTE SERVICE DATE: 04/21/2020 SERVICE TIME: 10:10 AM Care Plan: Continue current diet Snacks: Add(2 PM of string cheese stick and peaches) Please document accurate intakes of meals and supplements to further assess nutritional status. Goal: Patient to meet > 75% of estimated needs prior to d/c Discharge Recommendations: Diet Diet: Heart healthy ----- Chart reviewed for LOS. ACTIVE PROBLEM LIST Fracture of Cervical Vertebra, C2 (Hcc) Cervical Spinal Stenosis Myelopathy (Hcc) S/P Cervical Spinal Fusion Shoulder Pain Osteoarthritis, Knee Neck pain Cervicalgia Uti (Urinary Tract Infection) Obesity, Class III, BMI >= 40 Intake History: Nutrition Intake Prior to Admission: Greater than 75% estimated energy needs greater than or equal to 3 months(patient reports does okay with eating but not crazya bout food where she resides [employer] due to is always cold when served and does not taste that food, but happy with food here.) Current Intake: Greater than 75% estimated energy needs over: 7 days, po varied from 30-100% per very few documented po records via nursing. Pt reports eats a lot of meals at least more than 50% or more most of the time. Likes food here. Agreed to snack. Current Diet: DIET REGULAR Anthropometrics: Height: 152.4 cm (5') Weight: 98.2 kg (216 lb 9.6 oz) Usual Weight: 83.9 kg (185 lb) Last 16 Encounter Wt Readings: Date: Wt: 04/21/2020 98.2 kg (216 lb 9.6 oz)-bed 05/18/2019 89.8 kg (198 lb) 12/04/2012 78.1 kg (172 lb 3.2 oz) 06/20/2010 79.4 kg (175 lb) Weight change percentage over time: 8.6% wt increase over 11 months per wt records SIGNATURE: JANELLE Leon PATIENT NAME: Patricia Hawley DATE: April 21, 2020 TIME: 12:02 PM PAGER: [phone] [facility] PROGRESSon 04-21-2020 PROGRESS HNO ID: [id number] Author: La Lee Service: Nephrology Author Type: Physician Type: Progress Notes Filed: 04/21/2020 6:10 PM Note Text: Subjective. Events noted overnight 04/21/20 0849 04/21/20 1121 04/21/20 1250 04/21/20 1450 BP: (!) 95/47 (!) 119/45 101/62 118/73 Pulse: 82 Resp: 18 Temp: 36.8 ?C (98.3 ?F) TempSrc: Oral SpO2: 95% Weight: 98.2 kg (216 lb 9.6 oz) Height: No pallor No icterus No JVD Heart - S1 S2 Lungs - clear Abdomen - soft, non distended, no organomegaly LE - no edema, No cyanosis No rash AAO x 3 CMP: Glucose 113 04/21/2020 BUN 41 04/21/2020 Creatinine 1.47 04/21/2020 Sodium 137 04/21/2020 Potassium 4.0 04/21/2020 Chloride 100 04/21/2020 CO2 29 04/21/2020 Protein, Total 6.1 2020 Albumin 3.2 2020 Calcium 8.8 04/21/2020 Alkaline Phosphatase 58 2020 Bilirubin, Total <0.2 2020 AST see below 2020 ALT 13 2020 Hemoglobin (g/dL) Date Value 07/28/2013 12.0 HGB (g/dL) Date Value 04/20/2020 10.1 Hematocrit (%) Date Value 04/20/2020 32.6 WBC (thou/cmm) Date Value 04/20/2020 10.28 Platelet Count (thou/cmm) Date Value 04/20/2020 277 Assessment/ Plan CKD 3 Now COLIN ? Related to volume depletion Fluids have been ordered already No other new events/meds Hold lisinopril [facility] PROGRESS HNO ID: [id number] Author: Loulou Renee Service: Hospital Medicine Author Type: Physician Type: Progress Notes Filed: 04/21/2020 12:54 PM Note Text: Hospital Medicine Progress Note Patient Name: Patricia Hawley Admission Date: 04/13/2020 Reason for Visit: Discitis IMPRESSION AND PLAN: Active Hospital Problems Diagnosis - Obesity, Class III, BMI >= 40 - UTI (urinary tract infection) 1. T12-L1 and T11-T12 discitis, status post biopsy, still on IV antibiotic, most likely patient will require PICC line 4-6 weeks of antibiotic, the biopsy was nonconclusive, case was reviewed with Dr. Shin yesterday. ? 2. Acute UTI with pyelonephritis secondary to Escherichia coli, finish 5 days of Rocephin. ? 3. Generalized weakness with debility, uses a wheelchair at all time. Continue with therapy. ? 4. Hypertension which is on the lower side today so we'll discontinue hydrochlorothiazide and hold her lisinopril, adjusted dose of Toprol-XL. 5. Chronic pain syndrome managed by methadone and L-appreciate any management input. ? 6. COPD with chronic hypoxic respiratory failure which seems to be stable on 2 L nasal cannula which is her baseline. ? 7. Chronic kidney disease stage III seemed to be around baseline. 8- Acute renal insufficiency most likely related to poor oral intake and with her having lower blood pressure will give IV fluids and recheck creatinine in the morning. 9. Anxiety stable on current medication. ? Called daughter Naina at [phone] and provided an update. Patient Checklist Prophylaxis: VTE - Yes Code Status: Code Status: Full Code Disposition: [facility] Loulou Renee MD ==== Interval History: Patient was seen and examined for worsening kidney function for which she was started on IV fluids, and she is more sleepy today denies any fever, chills, chest pain, does not recall being evaluated yesterday. Due to low blood pressure medication was adjusted. Reviewed with her daughter and plan of care. PHYSICAL EXAM: BP (!) 119/45 Pulse 67 Temp 36.8 ?C (98.3 ?F) (Oral) Resp 18 Ht 152.4 cm (5') Wt 98.2 kg (216 lb 9.6 oz) SpO2 99% BMI 42.30 kg/m? PHYSICAL EXAMINATION: General appearance: Patient is sitting in bed in no acute respiratory distress. Awake, alert, oriented *[address] Skin: Normal temperature, no ecchymosis. Lungs: Lungs clear to auscultation. No wheezing, rhonchi, rales, no use of accessory respiratory muscles. Heart: RRR, normal s1s2, no murmurs Abdomen: Positive for bowel sounds, soft abdomen, non-tender. Extremities: No pitting edema bilateral legs. MEDICATIONS: docusate sodium (COLACE) 100 mg capsule Take 100 mg by mouth as needed for Constipation. ferrous sulfate 325 mg (65 mg iron) tablet Take 325 mg by mouth three times daily with meals. hydroCHLOROthiazide (HYDRODIURIL, ESIDRIX) 25 mg tablet Take 25 mg by mouth once daily. LISINOPRIL ORAL Take 10 mg by mouth once daily. metoprolol tartrate, short acting, (LOPRESSOR) 50 mg tablet Take 50 mg by mouth twice daily. LORazepam (ATIVAN) 0.5 mg Take 0.5 mg by mouth twice daily. zolpidem (AMBIEN) 5 mg tablet Take 5 mg by mouth at bedtime as needed. methadone (DOLOPHINE) 10 mg tablet Take 10 mg by mouth every 4 hours as needed. 10 mg at 12:00pm , 22:00 pm and 15 mg in the AM Methenamine Hippurate (HIPREX) 1 gram tablet Take 1 g by mouth twice daily with meals. albuterol (PROVENTIL) 2.5 mg /3 mL (0.083 %) nebulizer solution Use 3 mL via nebulizer every 4 hours. diclofenac sodium (VOLTAREN) 1 % topical gel Apply to affected area four times daily. predniSONE (DELTASONE) 20 mg tablet Take 40 mg by mouth once daily. sertraline (ZOLOFT) 100 mg tablet Take 100 mg by mouth once daily. citalopram (CELEXA) 20 mg tablet Take 20 mg by mouth once daily. Gabapentin 300 mg Tab Take 100 mg by mouth three times daily. meloxicam (MOBIC) 7.5 mg tablet Take 7.5 mg by mouth once daily. pravastatin 40 mg tablet Take 40 mg by mouth once daily. Multivitamins-Mineral s-Lutein (CENTRUM SILVER) Tab Take 1 tablet by mouth once daily. DULoxetine (CYMBALTA) 30 mg capsule Take 1 a day for 2 weeks, then increase to 2 pills a day. LISINOPRIL-HYDROCHLOR OTHIAZIDE 10-12.5 mg ORAL per tablet 1 tablet once daily. metoprolol succinate ER (TOPROL XL) 50 mg 24 hr tablet Take 50 mg by mouth once daily. oxyCODONE-acetaminoph en (PERCOCET) 5-325 mg ORAL tablet Take 1 tablet by mouth every 4 hours as needed. Current Facility-Administered Medications Medication Dose Route Frequency - citalopram 20 mg tab(s) (CeleXA) 20 mg ORAL DAILY - DULoxetine 30 mg cap(s) (CYMBALTA) 30 mg ORAL DAILY - sertraline 100 mg tab(s) (ZOLOFT) 100 mg ORAL DAILY - ferrous sulfate 325 mg tab(s) 325 mg ORAL TID w MEALS - albuterol 2.5 mg /3 mL (0.083 %) 2.5 mg (PROVENTIL) 3 mL INHALATION q 6 H PRN - enoxaparin 40 mg injection (LOVENOX) 40 mg SUBCUTANEOUS DAILY - sodium chloride 0.9 % (flush) 3-5 mL (BD POSIFLUSH) 3-5 mL INTRAVENOUS q 12 H - ondansetron 4 mg tab(s) (ZOFRAN) 4 mg ORAL q 6 H PRN Or - ondansetron (PF) 4 mg injection (ZOFRAN) 4 mg INTRAVENOUS q 6 H PRN - acetaminophen 650 mg tab(s) (TYLENOL) 650 mg ORAL q 6 H PRN - atorvastatin 10 mg tab(s) (LIPITOR) 10 mg ORAL AT BEDTIME - hydrALAZINE 25 mg tab(s) (APRESOLINE) 25 mg ORAL q 8 H PRN - gabapentin 100 mg cap(s) (NEURONTIN) 100 mg ORAL q 8 H - methadone (DOLOPHINE) tab(s) 15 mg 15 mg ORAL DAILY (6 AM) - methadone 10 mg tab(s) (DOLOPHINE) 10 mg ORAL DAILY AT 12 PM - methadone 10 mg tab(s) (DOLOPHINE) 10 mg ORAL DAILY (10PM) - LORazepam 0.5 mg tab(s) (ATIVAN) 0.5 mg ORAL AT BEDTIME - oxyCODONE IR 5 mg tab(s) (ROXICODONE) 5 mg ORAL q 4 H PRN - senna-docusate 8.6-50 mg 1 tablet (SENNA-S) 1 tablet ORAL BID - miconazole 2 % 1 application topical powder (LOTRIMIN AF, DESENEX) 1 application TOPICAL TID 9a/3p/9p - [START ON 04/22/2020] lisinopril 5 mg tab(s) (ZESTRIL, PRINIVIL) 5 mg ORAL DAILY - metoprolol succinate ER 25 mg tab(s) (TOPROL XL) 25 mg ORAL DAILY - NaCl 0.9% iv infusion 75 mL/hr INTRAVENOUS CONTINUOUS Lab data: CBC: Recent Labs 04/20/20 1024 04/15/20 035 WBC 10.28* 6.82 HB 10.1* 9.0* HCT 32.6* 28.5* PLT 277 324 MCV 98.5* 97.3* BMP: Recent Labs 04/21/20 02104/18/20 0645 04/17/20 0553 04/15/20 035 GLUC 113* 92 78 103* NA 137 140 139 137 K 4.0 3.9 4.2 3.8 CHLOR 100 100 97 100 CO2 29 29 31* 25 ANION 8* 11 11 12 BUN 41* 26* 28* 20 CREAT 1.47* 1.05* 1.22* 0.99* CHEM: Recent Labs 04/21/20 0215 04/18/20 0645 04/17/20 0553 04/15/20 035 ALB -- -- -- 3.2* TPROT -- -- -- 6.1* CA 8.8 9.1 9.3 9.1 HEPATIC: Recent Labs 04/15/20 035 ALKPHOS 58 ALT 13 AST see below TBILI <0.2 Loulou Renee MD Pager #[phone] 12:46 PM April 21, 2020 Disclaimer: Portions of this note have been generated using [employer] voice recognition software. Reasonable efforts were made to correct any dictation errors that resulted due to the programming of this software but some may still be present. [facility] PROGRESS HNO ID: [id number] Author: Noa Verduzco Service: Neurosurgery Author Type: Nurse Practitioner Type: Progress Notes Filed: 04/21/2020 12:18 PM Note Text: PROGRESS NOTE NEUROSURGERY SERVICE DATE: 04/21/2020 SERVICE TIME: 09 Subjective INTERVAL HPI Pt sitting up in bed eating breakfast. C/o back pain and continued leg weakness. No new symptoms Pt states she does not really want any surgical intervention Current Facility-Administered Medications Medication Dose Route Frequency - citalopram 20 mg tab(s) (CeleXA) 20 mg ORAL DAILY - DULoxetine 30 mg cap(s) (CYMBALTA) 30 mg ORAL DAILY - sertraline 100 mg tab(s) (ZOLOFT) 100 mg ORAL DAILY - ferrous sulfate 325 mg tab(s) 325 mg ORAL TID w MEALS - albuterol 2.5 mg /3 mL (0.083 %) 2.5 mg (PROVENTIL) 3 mL INHALATION q 6 H PRN - enoxaparin 40 mg injection (LOVENOX) 40 mg SUBCUTANEOUS DAILY - sodium chloride 0.9 % (flush) 3-5 mL (BD POSIFLUSH) 3-5 mL INTRAVENOUS q 12 H - ondansetron 4 mg tab(s) (ZOFRAN) 4 mg ORAL q 6 H PRN Or - ondansetron (PF) 4 mg injection (ZOFRAN) 4 mg INTRAVENOUS q 6 H PRN - acetaminophen 650 mg tab(s) (TYLENOL) 650 mg ORAL q 6 H PRN - atorvastatin 10 mg tab(s) (LIPITOR) 10 mg ORAL AT BEDTIME - hydrALAZINE 25 mg tab(s) (APRESOLINE) 25 mg ORAL q 8 H PRN - gabapentin 100 mg cap(s) (NEURONTIN) 100 mg ORAL q 8 H - methadone (DOLOPHINE) tab(s) 15 mg 15 mg ORAL DAILY (6 AM) - methadone 10 mg tab(s) (DOLOPHINE) 10 mg ORAL DAILY AT 12 PM - methadone 10 mg tab(s) (DOLOPHINE) 10 mg ORAL DAILY (10PM) - LORazepam 0.5 mg tab(s) (ATIVAN) 0.5 mg ORAL AT BEDTIME - oxyCODONE IR 5 mg tab(s) (ROXICODONE) 5 mg ORAL q 4 H PRN - senna-docusate 8.6-50 mg 1 tablet (SENNA-S) 1 tablet ORAL BID - miconazole 2 % 1 application topical powder (LOTRIMIN AF, DESENEX) 1 application TOPICAL TID 9a/3p/9p - [START ON 04/22/2020] lisinopril 5 mg tab(s) (ZESTRIL, PRINIVIL) 5 mg ORAL DAILY - metoprolol succinate ER 25 mg tab(s) (TOPROL XL) 25 mg ORAL DAILY - NaCl 0.9% iv infusion 75 mL/hr INTRAVENOUS CONTINUOUS Objective Physical Exam Performed: General - obese, calm, pleasant Resp - even unlabored GI - abdomen soft NT, ND Skin - no lesions, abrasions or bruises Neuro - A+O x3, sensation intact to Bilat legs, diminished to Bilat feet, ZUNIGA, strength 4+/5 BUE and 4-/5 BLE VITAL SIGNS 24 HOUR REVIEW: Patient Vitals for the past 24 hrs: BP Temp Temp src Pulse Resp SpO2 Weight 04/21/20 1121 (!) 119/45 ? 04/21/20 0849 (!) 95/47 ? 98.2 kg (216 lb 9.6 oz) 04/21/20 0713 (!) 116/43 36.8 ?C (98.3 ?F) Oral 67 18 99 % ? 04/21/20 0214 (!) 110/46 36.6 ?C (97.9 ?F) Oral (!) 55 18 98 % ? 04/20/20 1835 (!) 110/49 37.4 ?C (99.3 ?F) Axillary 60 18 98 % ? 04/20/20 1535 118/85 ? ? (!) 57 18 91 % ? Assessment/Plan Active Problems: 75 yo female with back pain, inability to ambulate for years with advanced destructive lesion T12-L1, severe cervical stenosis. Lumbar Biopsy was non-diagnostic Pt would like to avoid surgery, not sure how beneficial for pt it would be considering she has been non-ambulatory for years [employer]. Med mgmt ID following DR Benitez to discuss with pt and daughter later today UTI (urinary tract infection) POA: Yes Assessment AND Plan: Obesity, Class III, BMI >= 40 POA: Unknown Assessment AND Plan: Resolved Problems: * No resolved hospital problems. * Medication and Non-Pharmacologic VTE Prophylaxis/Anticoagu lants Anticoagulant AND Antiplatelet Medications (From admission, onward) Start Dose Route Frequency Ordered Stop 04/14/20 0900 enoxaparin 40 mg injection (LOVENOX) (Medical Risk Categories) 40 mg SUBCUTANEOUS DAILY 04/14/20 0137 -- 04/14/20 0145 vte non-pharmacologic prophylaxis - none indicated (in,oh) 04/14/20 014 activity - mobilize patient (in,az) VTE Prophylaxis: VTE prophylaxis appropriate SIGNATURE: Noa Verduzco APRN.CNP PATIENT NAME: Patricia Hawley DATE: April 21, 2020 TIME: 12:06 PM PAGER/CONTACT #: [phone] [facility] PROGRESS HNO ID: [id number] Author: Alyson Thomas Service: Pain Management Author Type: Physician Type: Progress Notes Filed: 04/21/2020 8:47 AM Note Text: Name: PATRICIA HAWLEY Age: [age] year old PAIN MANAGEMENT: Acute on chronic back pain, T11-12, T12-L1 osteomyelitis/disciti s; multilevel degenerative disc disease Pain Description: Intermittent pain low back; on her right side. Worse with movement. Limited activity. Encouraged patient to use oxycodone as needed 24H Comfort Meds: Tylenol 650 mg x0 Cymbalta 30 mg daily Gabapentin 100 mg x 3 Methadone 15 mg a.m., 10 mg p.m. and 10 mg at bedtime Oxycodone 5 mg x 1 Lorazepam 0.5 mg hs x 1 Interval HPI: Remains afebrile, vital signs stable, on 3 L by nasal cannula, positive bowel movement ?3, regular diet. Cr 1.47 04/20 nephrology consult CKD3 stable GFR 04/[address] extensive postsurgical changes. Chronic malunion of C2 fracture, cervical spondylosis with moderate stenosis at C7-T1 with possible cord flattening/compressio n 04/19 T12-L1 lesion biopsy nondiagnostic Subjective HPI: 75-year-old female was transferred from [facility] after diagnostic work-up demonstrated T12-L1 discitis/osteomyeliti s and possible malignant infiltration. Patient initially presented there with right-sided flank and back pain. She was treated for UTI and found to have moderate hydronephrosis. 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 Pain regimen confirmed to [facility] and includes gabapentin 100 mg 3 times daily, Ativan 0.5 mg twice daily as needed, oxycodone 5 mg every 4 hours PRN methadone 15 mg a.m., 10 mg p.m. and 10 mg at at bedtime. She has a history of chronic back pain as well as diffuse osteoarthritis status post right SINAN and right TKA. She states she last walked independently a while ago. Per chart, patient had prior T12/L5 laminectomy, L2-L5 fusion, status post occiput to C6 fusion.she has chronic bilateral foot drop. She is wheelchair-bound. OARRS Review: Negative. Does not reflect [facility] pain regimen as documented above Current Facility-Administered Medications Medication Dose Route Frequency Provider Last Rate Last Dose - miconazole 2 % 1 application topical powder (LOTRIMIN AF, DESENEX) 1 application TOPICAL TID 9a/3p/9p Loulou Renee 1 application at 04/20/202031 - Hydrochlorothiazide 25 mg 25 mg ORAL DAILY Abed Al-Hamid Ghandour 25 mg at 04/20/2027 - lisinopril 5 mg tab(s) (ZESTRIL, PRINIVIL) 5 mg ORAL DAILY Abed Al-Hamid Ghandour 5 mg at 04/20/20826 - oxyCODONE IR 5 mg tab(s) (ROXICODONE) 5 mg ORAL q 4 H PRN Abed Al-Hamid Ghandour 5 mg at 04/20/20827 - senna-docusate 8.6-50 mg 1 tablet (SENNA-S) 1 tablet ORAL BID Abed Al-Hamid Ghandour 1 tablet at 04/20/202030 - hydrALAZINE 25 mg tab(s) (APRESOLINE) 25 mg ORAL q 8 H PRN Abed Al-Hamid Ghandour 25 mg at 04/15/20 1110 - gabapentin 100 mg cap(s) (NEURONTIN) 100 mg ORAL q 8 H Abed Al-Hamid Ghandour 100 mg at 04/21/20 0531 - methadone (DOLOPHINE) tab(s) 15 mg 15 mg ORAL DAILY (6 AM) Abed Al-Hamid Ghandour 15 mg at 04/21/20 0532 - methadone 10 mg tab(s) (DOLOPHINE) 10 mg ORAL DAILY AT 12 PM Abed Al-Hamid Ghandour 10 mg at 04/20/20 1207 - methadone 10 mg tab(s) (DOLOPHINE) 10 mg ORAL DAILY (10PM) Abed Al-Hamid Ghandour 10 mg at 04/20/202030 - LORazepam 0.5 mg tab(s) (ATIVAN) 0.5 mg ORAL AT BEDTIME Abed Al-Hamid Ghandour 0.5 mg at 04/20/202030 - metoprolol succinate ER 50 mg tab(s) (TOPROL XL) 50 mg ORAL DAILY Abed Al-Hamid Ghandour 50 mg at 04/20/20826 - citalopram 20 mg tab(s) (CeleXA) 20 mg ORAL DAILY Abed Al-Hamid Ghandour 20 mg at 04/20/20827 - DULoxetine 30 mg cap(s) (CYMBALTA) 30 mg ORAL DAILY Abed Al-Hamid Ghandour 30 mg at 04/20/20827 - sertraline 100 mg tab(s) (ZOLOFT) 100 mg ORAL DAILY Abed Al-Hamid Ghandour 100 mg at 04/20/20826 - ferrous sulfate 325 mg tab(s) 325 mg ORAL TID w MEALS Abed Al-Hamid Ghandour 325 mg at 04/20/201700 - albuterol 2.5 mg /3 mL (0.083 %) 2.5 mg (PROVENTIL) 3 mL INHALATION q 6 H PRN Abed Al-Hamid Ghandour - enoxaparin 40 mg injection (LOVENOX) 40 mg SUBCUTANEOUS DAILY Abed Al-Hamid Ghandour 40 mg at 04/20/20 0829 - sodium chloride 0.9 % (flush) 3-5 mL (BD POSIFLUSH) 3-5 mL INTRAVENOUS q 12 H Abed Al-Hamid Ghandour 5 mL at 04/20/20 2100 - ondansetron 4 mg tab(s) (ZOFRAN) 4 mg ORAL q 6 H PRN Abed Al-Hamid Ghandour 4 mg at 04/14/20 0951 Or - ondansetron (PF) 4 mg injection (ZOFRAN) 4 mg INTRAVENOUS q 6 H PRN Abed Al-Hamid Ghandour 4 mg at 04/19/20 1605 - acetaminophen 650 mg tab(s) (TYLENOL) 650 mg ORAL q 6 H PRN Abed Al-Hamid Ghandour 650 mg at 04/19/20 1758 - atorvastatin 10 mg tab(s) (LIPITOR) 10 mg ORAL AT BEDTIME Abed Al-Hamid Ghandour 10 mg at 04/20/202030 - docusate sodium (COLACE) 100 mg capsule, Take 100 mg by mouth as needed for Constipation., Disp: , Rfl: - ferrous sulfate 325 mg (65 mg iron) tablet, Take 325 mg by mouth three times daily with meals., Disp: , Rfl: - hydroCHLOROthiazide (HYDRODIURIL, ESIDRIX) 25 mg tablet, Take 25 mg by mouth once daily., Disp: , Rfl: - LISINOPRIL ORAL, Take 10 mg by mouth once daily., Disp: , Rfl: - metoprolol tartrate, short acting, (LOPRESSOR) 50 mg tablet, Take 50 mg by mouth twice daily., Disp: , Rfl: - LORazepam (ATIVAN) 0.5 mg, Take 0.5 mg by mouth twice daily., Disp: , Rfl: - zolpidem (AMBIEN) 5 mg tablet, Take 5 mg by mouth at bedtime as needed., Disp: , Rfl: - methadone (DOLOPHINE) 10 mg tablet, Take 10 mg by mouth every 4 hours as needed. 10 mg at 12:00pm , 22:00 pm and 15 mg in the AM, Disp: , Rfl: - Methenamine Hippurate (HIPREX) 1 gram tablet, Take 1 g by mouth twice daily with meals., Disp: , Rfl: - albuterol (PROVENTIL) 2.5 mg /3 mL (0.083 %) nebulizer solution, Use 3 mL via nebulizer every 4 hours., Disp: , Rfl: - diclofenac sodium (VOLTAREN) 1 % topical gel, Apply to affected area four times daily., Disp: , Rfl: - predniSONE (DELTASONE) 20 mg tablet, Take 40 mg by mouth once daily., Disp: , Rfl: - sertraline (ZOLOFT) 100 mg tablet, Take 100 mg by mouth once daily., Disp: , Rfl: - citalopram (CELEXA) 20 mg tablet, Take 20 mg by mouth once daily., Disp: , Rfl: - Gabapentin 300 mg Tab, Take 100 mg by mouth three times daily. , Disp: , Rfl: - meloxicam (MOBIC) 7.5 mg tablet, Take 7.5 mg by mouth once daily., Disp: , Rfl: - pravastatin 40 mg tablet, Take 40 mg by mouth once daily., Disp: , Rfl: - Multivitamins-Mineral s-Lutein (CENTRUM SILVER) Tab, Take 1 tablet by mouth once daily., Disp: , Rfl: - DULoxetine (CYMBALTA) 30 mg capsule, Take 1 a day for 2 weeks, then increase to 2 pills a day., Disp: 60 capsule, Rfl: 3 - LISINOPRIL-HYDROCHLOR OTHIAZIDE 10-12.5 mg ORAL per tablet, 1 tablet once daily., Disp: , Rfl: - metoprolol succinate ER (TOPROL XL) 50 mg 24 hr tablet, Take 50 mg by mouth once daily. , Disp: , Rfl: - oxyCODONE-acetaminoph en (PERCOCET) 5-325 mg ORAL tablet, Take 1 tablet by mouth every 4 hours as needed. , Disp: , Rfl: Social History Tobacco Use - Smoking status: Never Smoker - Smokeless tobacco: Never Used Substance Use Topics - Alcohol use: No - Drug use: No No family history on file. PAST SURGICAL HISTORY Procedure Laterality Date - LAMINECTOMY,CERVICAL Laminectomy, cervical fusion x2 - PAST SURGICAL HISTORY OF bladder suspenion x2 - REPAIR ROTATOR CUFF,ACUTE Rotator cuff repair bilat - TOTAL HIP REPLACEMENT Hip replacement, total - TOTAL KNEE REPLACEMENT Knee replacement, total - VAGINAL HYSTERECTOMY Hysterectomy, vaginal ROS: All of the following reviewed and negative except as noted below: Significant for HPI GENERAL: no fever, chills, sweats, weight loss, fatigue, generalized weakness HEENT: no headache, vision changes, eye discomfort, hearing change, ear discomfort, sinus pain, nasal discharge or congestion, oral lesions, soreness, dental problem NECK: no adenopathy, discomfort, change in ROM CHEST: no shortness of breath, dyspnea on exertion, wheezing, cough, sputum production or chest pain HEART: no chest pain, palpitations, syncope ABDOMEN: no nausea, vomiting, constipation, diarrhea, abdominal pain : no dysuria, urgency, frequency, history of stones, incontinence NEURO: no confusion or alteration in consciousness, slurred speech, seizure, focal weakness EXTREMITIES: no new pain, edema, change in ROM HEME: no new adenopathy, bruises, petechiae PSYCH: no depression, anxiety, agitation PAIN PSYCHIATRIC EXAM: GENERAL: alert, oriented to person, place JUDGMENT AND INSIGHT: Limited APPEARANCE: neatly groomed DEMEANOR: coooperative, not hostile, mistrustful, preoccupied, or demanding ACTIVITY: normal, not hyperactive or hypoactive, no tremors, tics EYE CONTACT: normal SPEECH: normal, rate, volume, articulation, coherence, spontaneity MOOD: normal, without overt sadness, grief, anxiety, appropriate to situation IDEATION: Deferred mEMORY: Impaired PHYSICAL EXAMINATION: GENERAL: well nourished and developed; pleasant mild confusion; no acute distress; alert and oriented x 2; limited judgement and insight HEENT: no evidence of trauma; cranial nerves intact; eyes clear EOMI; no hearing deficits apparent; nasal passages unremarkable; throat and mucous membranes clear NECK: supple without lymphadenopathy; no JVD; no thyromegaly CHEST: clear bilaterally to auscultation; normal chest movement; no rales or rhonchi HEART: regular rate and rhythm, normal S1 and S2, no murmurs, clicks, rubs, or gallops ABDOMEN: soft; nondistended; bowel sounds present; no hepatomegaly; no splenomegaly; no tenderness EXTREMITIES: no evidence of clubbing; no cyanosis; no deformity; no joint effusion; no edema NEURO: cranial nerves intact; no confusion; no tremor; sensorium normal; bilateral lower extremity weakness and foot drop SKIN: no rash; no skin breakdown; no decubitus lesions HEME: no bruising; no adenopathy PSYCH: no evidence of depression; no anxiety; no agitation; no apparent hallucinations BP (!) 116/43 Pulse 67 Temp 36.8 ?C (98.3 ?F) (Oral) Resp 18 Ht 152.4 cm (5') Wt 98.4 kg (216 lb 14.4 oz) SpO2 99% BMI 42.36 kg/m? BMI 42.36 kg/(m2) Date 04/16/20699 - 04/17/20 0659 Shift 1453-2925 4583-2995 1648-2541 24 Hour Total INTAKE PO 240 240 Shift Total 240 240 OUTPUT Shift Total Weight (kg) 96.9 96.9 96.9 96.9 Date 04/15/20699 - 04/16/2059 04/16/20699 - 04/17/20 0659 Shift 7807-3771 4635-8043 8828-2817 24 Hour Total 9894-2872 4479-5432 7731-7027 24 Hour Total INTAKE PO 240 240 PO 240 240 Shift Total 240 240 OUTPUT Urine 2738 933 5189 Void (ml) 850 850 Urine Incontinence/Not Saved 1 x 1 x Output ( External Collection Device 04/13/20 2225) 544 465 2744 # of BMs Stool Incontinence 2 x 2 x Shift Total 9259 989 3290 Weight (kg) 100.2 99.3 96.9 96.9 96.9 96.9 96.9 96.9 ABNORMAL/NEW FINDINGS: NONE RADIOLOGY/DIAGNOSTICS : LABORATORY: CBC: Recent Labs 04/20/20 1024 WBC 10.28* RBC 3.31* HB 10.1* HCT 32.6* PLT 277 MCV 98.5* MCH 30.5 MPV 10.3 RDW 12.6 CMP: Recent Labs 04/21/20 0215 NA 137 K 4.0 CHLOR 100 CO2 29 BUN 41* CREAT 1.47* GLUC 113* CA 8.8 ANION 8* Heme: No results for input(s): RETICP, ABSRETIC, LD, ANTONIETTA, FE, TIBC, TRANSFERSAT in the last 24 hours. ASSESSMENT ACTIVE PROBLEM LIST Fracture of Cervical Vertebra, C2 (Hcc) Cervical Spinal Stenosis Myelopathy (Hcc) S/P Cervical Spinal Fusion Shoulder Pain Osteoarthritis, Knee Neck pain Cervicalgia Uti (Urinary Tract Infection) Obesity, Class III, BMI >= 40 PLAN: Patient with history of multiple prior spine surgeries as outlined above, wheelchair-bound with bilateral foot drop presents with destructive lesion of L1, T12 which is progressed compared to 2013. Patient with severe cervical stenosis as outlined above on CT Poor functional baseline; no significant change in neurologic function IR guided biopsy 04/19 nondiagnostic Per neurosurgery, patient will likely require surgical reconstruction of anterior column Opiate dependent prior to admission Tylenol 650 mg every 6 hours PRN Cymbalta 30 mg daily Gabapentin 100 mg every 8 hours Methadone 15 mg every a.m., 10 mg every p.m. and 10 mg at bedtime Oxycodone 5 mg every 4 hours PRN; encouraged paient to use Senna S twice daily Alyson Thomas MD [facility] CONSULTon 04-20-2020 CONSULT HNO ID: [id number] Author: Saulo Cuellar Service: Nephrology Author Type: Physician Type: Consults Filed: 04/20/2020 7:55 PM Note Text: [facility] [id number] [place], [place] [id number] Consult Note Patient's Name: Patricia Hawley 7:36 PM 04/20/2020 Reason for Consult: CKD, prison IV access choice ATTENDING/ADMITTING PHYSICIAN:Loulou Renee History of Present Ilness: Patricia Hawley is a 75 year old female with past history HTN, ARCHANA, and CKD stage 3a is admitted for discitis and UTI. 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 Nephrology is asked to assess the best option for longshore equipment operator IV access in the setting of CKD. Pt denies CP, SOB, nausea. There is no LE edema. SCr has been around 0.99-1.22 mg/dL in the last 3 days. PAST MEDICAL HISTORY Diagnosis Date - Dysthymic disorder Depression (non-psychotic) - Obstructive sleep apnea - Unspecified essential hypertension Essential hypertension PAST SURGICAL HISTORY Procedure Laterality Date - LAMINECTOMY,CERVICAL Laminectomy, cervical fusion x2 - PAST SURGICAL HISTORY OF bladder suspenion x2 - REPAIR ROTATOR CUFF,ACUTE Rotator cuff repair bilat - TOTAL HIP REPLACEMENT Hip replacement, total - TOTAL KNEE REPLACEMENT Knee replacement, total - VAGINAL HYSTERECTOMY Hysterectomy, vaginal No family history on file. reports that she has never smoked. She has never used smokeless tobacco. She reports that she does not drink alcohol or use drugs. Allergies: Macrodantin [Nitrofurantoin] and Morphine Sulfate Current Medications: Current Facility-Administered Medications Medication Dose Route Frequency - miconazole 2 % 1 application topical powder (LOTRIMIN AF, DESENEX) 1 application TOPICAL TID 9a/3p/9p - Hydrochlorothiazide 25 mg 25 mg ORAL DAILY - lisinopril 5 mg tab(s) (ZESTRIL, PRINIVIL) 5 mg ORAL DAILY - oxyCODONE IR 5 mg tab(s) (ROXICODONE) 5 mg ORAL q 4 H PRN - senna-docusate 8.6-50 mg 1 tablet (SENNA-S) 1 tablet ORAL BID - hydrALAZINE 25 mg tab(s) (APRESOLINE) 25 mg ORAL q 8 H PRN - gabapentin 100 mg cap(s) (NEURONTIN) 100 mg ORAL q 8 H - methadone (DOLOPHINE) tab(s) 15 mg 15 mg ORAL DAILY (6 AM) - methadone 10 mg tab(s) (DOLOPHINE) 10 mg ORAL DAILY AT 12 PM - methadone 10 mg tab(s) (DOLOPHINE) 10 mg ORAL DAILY (10PM) - LORazepam 0.5 mg tab(s) (ATIVAN) 0.5 mg ORAL AT BEDTIME - metoprolol succinate ER 50 mg tab(s) (TOPROL XL) 50 mg ORAL DAILY - citalopram 20 mg tab(s) (CeleXA) 20 mg ORAL DAILY - DULoxetine 30 mg cap(s) (CYMBALTA) 30 mg ORAL DAILY - sertraline 100 mg tab(s) (ZOLOFT) 100 mg ORAL DAILY - ferrous sulfate 325 mg tab(s) 325 mg ORAL TID w MEALS - albuterol 2.5 mg /3 mL (0.083 %) 2.5 mg (PROVENTIL) 3 mL INHALATION q 6 H PRN - enoxaparin 40 mg injection (LOVENOX) 40 mg SUBCUTANEOUS DAILY - sodium chloride 0.9 % (flush) 3-5 mL (BD POSIFLUSH) 3-5 mL INTRAVENOUS q 12 H - ondansetron 4 mg tab(s) (ZOFRAN) 4 mg ORAL q 6 H PRN Or - ondansetron (PF) 4 mg injection (ZOFRAN) 4 mg INTRAVENOUS q 6 H PRN - acetaminophen 650 mg tab(s) (TYLENOL) 650 mg ORAL q 6 H PRN - atorvastatin 10 mg tab(s) (LIPITOR) 10 mg ORAL AT BEDTIME Review of Systems: 10 ROS negative other than stated above Physical exam: BP (!) 110/49 Pulse 60 Temp 37.4 ?C (99.3 ?F) (Axillary) Resp 18 Ht 152.4 cm (5') Wt 98.4 kg (216 lb 14.4 oz) SpO2 98% BMI 42.36 kg/m? General: AAO x 3, speaking in full sentences, no accessory muscle use. HEENT: Atraumatic, normocephalic, no throat congestion, moist mucosa. Eyes: Pupils equal, round and reactive to light, EOMI. Neck: No JVD, no thyromegaly, no lymphadenopathy. Chest: CTAB , no rales or wheezes. Cardiac: S1 S2 RR, no murmurs, gallops or rubs, JVP not raised. Abdomen: Soft, non-tender, no masses or organomegaly, BS audible. : No suprapubic or flank tenderness. Neuro: AAO x 3, No FND. SKIN: No rashes, good skin turgor. Extremities: No edema, palpable peripheral pulses, no calf tenderness. Labs: Recent Labs 04/20/20 1024 WBC 10.28* HB 10.1* HCT 32.6* MCV 98.5* PLT 277 Recent Labs 04/18/20 0645 NA 140 K 3.9 CO2 29 BUN 26* CREAT 1.05* CA 9.1 Input / Output: 24 HR: Intake/Output Summary (Last 24 hours) at 04/20/2020 1936 Last data filed at 04/20/2020 0500 Gross per 24 hour Intake ? Output 800 ml Net -800 ml Assessment and Plan: Chronic kidney disease stage 3. GFR of the patient has been around 43 to 54 mL/min. Renal function has been stable. She can get peripherally inserted central catheter (PICC). She does not need tunneled central line (tunneled PICC) from the nephrology standpoint. Will discuss with Dr. Shin. Thank you for allowing me to participate in care of Patricia Hawley. Please do not hesitate to contact me at [phone] with any concerns. Tania Xiao MD, (Saulo Cuellar) [facility] CONSULT PROGon 04-20-2020 CONSULT PROG HNO ID: [id number] Author: Giovani Shin Service: Infectious Disease Author Type: Physician Type: Consult Progress Note Filed: 04/20/2020 3:24 PM Note Text: PROGRESS NOTE INFECTIOUS DISEASE BRIEF SUMMARY: 74F h/o spinal stenosis s/p T12-L5 decompressive bilateral laminectomy with foraminotomies from T12-L5 for decompression. Presented to [facility] on 04/12/20 for R flank pain found to have UTI + hydronephrosis, transferred to [facility] 04/14/20 because of worsening paresthesias of legs, MRI c/t/l showed T12-L1 OM vs discitis vs malignancy. ASSESSMENT: 1. Ecoli UTI + hydronephrosis - treated w ceftriaxone 5 days 2. Chronic T12-L1 vertebral body destruction, worsening s/p IR-guided biopsy 04/19/20 Discussed w neurosurgery, Dr Jorge will discuss case w Dr Benitez whether procedure can be delayed. Discussed w IR Dr Qureshi, aspirated fluid did not look like pus, pinkish clear fluid. Pathologist Dr Shauna Flower will be looking at the path. Will consult financial center manager given CrCl 46.7 ml/min to see if we can do PICC or if tunneled picc is preferred Estimated Creatinine Clearance: 48.7 mL/min (A) (based on SCr of 1.05 mg/dL (H)). RECOMMENDATIONS: - await cx - await specialty's plan (neurosurgery, pathology, nephrology) - consult nephro re: ?can she get picc SUBJECTIVE: Interval Events: 04/15 better mentation today 04/18 no event over the weekend 04/19 went down for IR guided biopsy 04/20 no event overnight Medications: Current Facility-Administered Medications Medication Dose Route Frequency - metoprolol succinate ER 50 mg tab(s) (TOPROL XL) 50 mg ORAL DAILY - citalopram 20 mg tab(s) (CeleXA) 20 mg ORAL DAILY - DULoxetine 30 mg cap(s) (CYMBALTA) 30 mg ORAL DAILY - sertraline 100 mg tab(s) (ZOLOFT) 100 mg ORAL DAILY - ferrous sulfate 325 mg tab(s) 325 mg ORAL TID w MEALS - albuterol 2.5 mg /3 mL (0.083 %) 2.5 mg (PROVENTIL) 3 mL INHALATION q 6 H PRN - enoxaparin 40 mg injection (LOVENOX) 40 mg SUBCUTANEOUS DAILY - sodium chloride 0.9 % (flush) 3-5 mL (BD POSIFLUSH) 3-5 mL INTRAVENOUS q 12 H - ondansetron 4 mg tab(s) (ZOFRAN) 4 mg ORAL q 6 H PRN Or - ondansetron (PF) 4 mg injection (ZOFRAN) 4 mg INTRAVENOUS q 6 H PRN - acetaminophen 650 mg tab(s) (TYLENOL) 650 mg ORAL q 6 H PRN - atorvastatin 10 mg tab(s) (LIPITOR) 10 mg ORAL AT BEDTIME - hydrALAZINE 25 mg tab(s) (APRESOLINE) 25 mg ORAL q 8 H PRN - gabapentin 100 mg cap(s) (NEURONTIN) 100 mg ORAL q 8 H - methadone (DOLOPHINE) tab(s) 15 mg 15 mg ORAL DAILY (6 AM) - methadone 10 mg tab(s) (DOLOPHINE) 10 mg ORAL DAILY AT 12 PM - methadone 10 mg tab(s) (DOLOPHINE) 10 mg ORAL DAILY (10PM) - LORazepam 0.5 mg tab(s) (ATIVAN) 0.5 mg ORAL AT BEDTIME - oxyCODONE IR 5 mg tab(s) (ROXICODONE) 5 mg ORAL q 4 H PRN - senna-docusate 8.6-50 mg 1 tablet (SENNA-S) 1 tablet ORAL BID - lisinopril 5 mg tab(s) (ZESTRIL, PRINIVIL) 5 mg ORAL DAILY - Hydrochlorothiazide 25 mg 25 mg ORAL DAILY OBJECTIVE: Physical Exam: BP 138/60 Pulse 67 Temp 36.6 ?C (97.8 ?F) (Oral) Resp 18 Ht 152.4 cm (5') Wt 98.4 kg (216 lb 14.4 oz) SpO2 100% BMI 42.36 kg/m? GENERAL APPEARANCE: Comfortable NEURO: Awake, alert, no involuntary motions Lab data: WBC (thou/cmm) Date Value 2020 6.82 04/14/2020 8.02 07/28/2013 5.1 07/26/2013 6.7 07/24/2013 7.1 Platelet Count (thou/cmm) Date Value 2020 324 04/14/2020 317 07/28/2013 288 07/26/2013 274 07/24/2013 290 Creatinine (mg/dL) Date Value 04/18/2020 1.05 04/17/2020 1.22 2020 0.99 04/14/2020 0.97 07/26/2013 1.01 AST (U/L) Date Value 2020 see below ALT (U/L) Date Value 2020 13 DATA: Diagnostic Tests Reviewed for Today's Visit: Most recent labs Most recent imaging Microbiology data: Positive Micro-30 Days No results found for the last 720 hours. Ecoli 04/13/20 Ampicillin $ >=32 R Ampicillin/Sulbactam $ >=32 R Cefazolin $ <=4 S Cefepime $ <=0.12 S Ceftriaxone $ <=0.25 S Ciprofloxacin $ >=4 R Ertapenim $$$ <=0.12 S ESBL NEG Gentamicin $ >=16 R Imipenem *NF <=0.25 S Levofloxacin $ >=8 R Nitrofurantoin $ <=16 S Piperacillin/Tazobact am $$ 8 S Tobramycin $ 8 I Trimethoprim/Sulfamet ho $ >=320 R Reference Range: S= Susceptible, I= Intermediate, R= Resistant MICS are expressed in micrograms per mL Giovani Shin MD Infectious Disease [facility] [place] Pager: [phone] [facility] Hemogramon 04-20-2020 Erythrocyte distribution width (RBC) [Ratio] 12.6 % Normal 11.7-14.4 [facility] Comment on above: Performed By: #### B MP #### [address] [address] Hematocrit (Bld) [Volume fraction] 32.6 % Low 34.1-44.9 [facility] Comment on above: Performed By: #### B MP #### [address] [address] Hemoglobin (Bld) [Mass/Vol] 10.1 g/dL Low 11.2-15.7 [facility] Comment on above: Performed By: #### B MP #### [facility] [address] [address] MCH (RBC) [Entitic mass] 30.5 pg Normal 25.6-32.2 [facility] Comment on above: Performed By: #### B MP #### [facility] [address] [address] MCHC (RBC) [Mass/Vol] 31.0 % Low 31.6-34.8 [facility] Comment on above: Performed By: #### B MP #### [facility] [address] [address] MCV (RBC) [Entitic vol] 98.5 fL High 79.4-94.8 [facility] Comment on above: Performed By: #### B MP #### [facility] [address] [address] Platelet mean volume (Bld) [Entitic vol] 10.3 fL Normal 9.4-12.3 [facility] Comment on above: Performed By: #### B MP #### [facility] [address] [address] Platelets (Bld) [#/Vol] 277 thou/cmm Normal 182-369 [facility] Comment on above: Performed By: #### B MP #### [facility] [address] [address] RBC (Bld) [#/Vol] 3.31 mil/cmm Low 3.93-5.22 [facility] Comment on above: Performed By: #### B MP #### [facility] [address] [address] RDW SD 45.7 fl Normal 36.4-46.3 [facility] Comment on above: Performed By: #### B MP #### [facility] [address] [address] WBC (Bld) [#/Vol] 10.28 thou/cmm High 3.98-10.04 [facility] Comment on above: Performed By: #### B MP #### [facility] [address] [address] PROGRESSon 04-20-2020 PROGRESS HNO ID: [id number] Author: Loulou Renee Service: Hospital Medicine Author Type: Physician Type: Progress Notes Filed: 04/20/2020 3:29 PM Note Text: Hospital Medicine Progress Note Patient Name: Patricia Hawley Admission Date: 04/13/2020 Reason for Visit: Discitis IMPRESSION AND PLAN: Active Hospital Problems Diagnosis - Obesity, Class III, BMI >= 40 - UTI (urinary tract infection) 1. T12-L1 and T11-T12 discitis, status post biopsy, still on IV antibiotic, waiting on results of biopsy result and decide about next that. 2. Acute UTI with pyelonephritis secondary to Escherichia coli, finish 5 days of Rocephin. 3. Generalized weakness with debility, uses a wheelchair at all time. Continue with therapy. 4. Hypertension which is controlled continued on home medication. 5. Chronic pain syndrome managed by methadone and L-appreciate any management input. 5. COPD with chronic hypoxic respiratory failure which seems to be stable on 2 L nasal cannula which is her baseline. 6. Anxiety stable on current medication. 7. Chronic kidney disease stage III seemed to be around baseline. Patient Checklist Prophylaxis: VTE - Yes Code Status: Code Status: Full Code Disposition: [facility] Loulou Renee MD ==== Interval History: Patient was seen and examined for back pain, denied any fever, chills, chest pain, was sitting at the side of the bed, reviewed with the daughter finding and the plan to wait on the results of the biopsy before deciding . PHYSICAL EXAM: BP 138/60 Pulse 67 Temp 36.6 ?C (97.8 ?F) (Oral) Resp 18 Ht 152.4 cm (5') Wt 98.4 kg (216 lb 14.4 oz) SpO2 100% BMI 42.36 kg/m? PHYSICAL EXAMINATION: General appearance: Patient is sitting in bed in no acute respiratory distress. Awake, alert, oriented *3. Skin: Normal temperature, no ecchymosis. Lungs: Lungs clear to auscultation. No wheezing, rhonchi, rales, no use of accessory respiratory muscles. Heart: RRR, normal s1s2, no murmurs Abdomen: Positive for bowel sounds, soft abdomen, non-tender. Extremities: No pitting edema bilateral legs. MEDICATIONS: docusate sodium (COLACE) 100 mg capsule Take 100 mg by mouth as needed for Constipation. ferrous sulfate 325 mg (65 mg iron) tablet Take 325 mg by mouth three times daily with meals. hydroCHLOROthiazide (HYDRODIURIL, ESIDRIX) 25 mg tablet Take 25 mg by mouth once daily. LISINOPRIL ORAL Take 10 mg by mouth once daily. metoprolol tartrate, short acting, (LOPRESSOR) 50 mg tablet Take 50 mg by mouth twice daily. LORazepam (ATIVAN) 0.5 mg Take 0.5 mg by mouth twice daily. zolpidem (AMBIEN) 5 mg tablet Take 5 mg by mouth at bedtime as needed. methadone (DOLOPHINE) 10 mg tablet Take 10 mg by mouth every 4 hours as needed. 10 mg at 12:00pm , 22:00 pm and 15 mg in the AM Methenamine Hippurate (HIPREX) 1 gram tablet Take 1 g by mouth twice daily with meals. albuterol (PROVENTIL) 2.5 mg /3 mL (0.083 %) nebulizer solution Use 3 mL via nebulizer every 4 hours. diclofenac sodium (VOLTAREN) 1 % topical gel Apply to affected area four times daily. predniSONE (DELTASONE) 20 mg tablet Take 40 mg by mouth once daily. sertraline (ZOLOFT) 100 mg tablet Take 100 mg by mouth once daily. citalopram (CELEXA) 20 mg tablet Take 20 mg by mouth once daily. Gabapentin 300 mg Tab Take 100 mg by mouth three times daily. meloxicam (MOBIC) 7.5 mg tablet Take 7.5 mg by mouth once daily. pravastatin 40 mg tablet Take 40 mg by mouth once daily. Multivitamins-Mineral s-Lutein (CENTRUM SILVER) Tab Take 1 tablet by mouth once daily. DULoxetine (CYMBALTA) 30 mg capsule Take 1 a day for 2 weeks, then increase to 2 pills a day. LISINOPRIL-HYDROCHLOR OTHIAZIDE 10-12.5 mg ORAL per tablet 1 tablet once daily. metoprolol succinate ER (TOPROL XL) 50 mg 24 hr tablet Take 50 mg by mouth once daily. oxyCODONE-acetaminoph en (PERCOCET) 5-325 mg ORAL tablet Take 1 tablet by mouth every 4 hours as needed. Current Facility-Administered Medications Medication Dose Route Frequency - metoprolol succinate ER 50 mg tab(s) (TOPROL XL) 50 mg ORAL DAILY - citalopram 20 mg tab(s) (CeleXA) 20 mg ORAL DAILY - DULoxetine 30 mg cap(s) (CYMBALTA) 30 mg ORAL DAILY - sertraline 100 mg tab(s) (ZOLOFT) 100 mg ORAL DAILY - ferrous sulfate 325 mg tab(s) 325 mg ORAL TID w MEALS - albuterol 2.5 mg /3 mL (0.083 %) 2.5 mg (PROVENTIL) 3 mL INHALATION q 6 H PRN - enoxaparin 40 mg injection (LOVENOX) 40 mg SUBCUTANEOUS DAILY - sodium chloride 0.9 % (flush) 3-5 mL (BD POSIFLUSH) 3-5 mL INTRAVENOUS q 12 H - ondansetron 4 mg tab(s) (ZOFRAN) 4 mg ORAL q 6 H PRN Or - ondansetron (PF) 4 mg injection (ZOFRAN) 4 mg INTRAVENOUS q 6 H PRN - acetaminophen 650 mg tab(s) (TYLENOL) 650 mg ORAL q 6 H PRN - atorvastatin 10 mg tab(s) (LIPITOR) 10 mg ORAL AT BEDTIME - hydrALAZINE 25 mg tab(s) (APRESOLINE) 25 mg ORAL q 8 H PRN - gabapentin 100 mg cap(s) (NEURONTIN) 100 mg ORAL q 8 H - methadone (DOLOPHINE) tab(s) 15 mg 15 mg ORAL DAILY (6 AM) - methadone 10 mg tab(s) (DOLOPHINE) 10 mg ORAL DAILY AT 12 PM - methadone 10 mg tab(s) (DOLOPHINE) 10 mg ORAL DAILY (10PM) - LORazepam 0.5 mg tab(s) (ATIVAN) 0.5 mg ORAL AT BEDTIME - oxyCODONE IR 5 mg tab(s) (ROXICODONE) 5 mg ORAL q 4 H PRN - senna-docusate 8.6-50 mg 1 tablet (SENNA-S) 1 tablet ORAL BID - lisinopril 5 mg tab(s) (ZESTRIL, PRINIVIL) 5 mg ORAL DAILY - Hydrochlorothiazide 25 mg 25 mg ORAL DAILY - miconazole 2 % 1 application topical powder (LOTRIMIN AF, DESENEX) 1 application TOPICAL TID 9a/3p/9p Lab data: CBC: Recent Labs 04/20/20 1024 04/15/20 0354 04/14/20 0205 WBC 10.28* 6.82 8.02 HB 10.1* 9.0* 9.0* HCT 32.6* 28.5* 29.0* PLT 277 324 317 MCV 98.5* 97.3* 99.3* BMP: Recent Labs 04/18/20 0645 04/17/20 0553 04/15/20 0354 04/14/20 0205 GLUC 92 78 103* 96 NA 140 139 137 139 K 3.9 4.2 3.8 3.9 CHLOR 100 97 100 103 CO2 29 31* 25 25 ANION 11 11 12 11 BUN 26* 28* 20 21 CREAT 1.05* 1.22* 0.99* 0.97* CHEM: Recent Labs 04/18/20 0645 04/17/20 0553 04/15/20 0354 04/14/20 0205 ALB -- -- 3.2* -- TPROT -- -- 6.1* -- CA 9.1 9.3 9.1 8.9 HEPATIC: Recent Labs 04/15/20 0354 ALKPHOS 58 ALT 13 AST see below TBILI <0.2 Plan of care discussion: Plan of care discussed with: Provider, RN, Patient. Loulou Renee MD Pager #[phone] 3:23 PM April 20, 2020 Disclaimer: Portions of this note have been generated using [employer] voice recognition software. Reasonable efforts were made to correct any dictation errors that resulted due to the programming of this software but some may still be present. [facility] PROGRESS HNO ID: [id number] Author: Alyson Thomas Service: Pain Management Author Type: Physician Type: Progress Notes Filed: 04/20/2020 10:45 AM Note Text: Name: PATRICIA HAWLEY Age: [age] year old PAIN MANAGEMENT: Acute on chronic back pain, T11-12, T12-L1 osteomyelitis/disciti s; multilevel degenerative disc disease Pain Description: Intermittent pain low back; on her right side. Worse with movement. Limited activity. Encouraged patient to use oxycodone as needed 24H Comfort Meds: Tylenol 650 mg x1 Cymbalta 30 mg daily Gabapentin 100 mg x 3 Methadone 15 mg a.m., 10 mg p.m. and 10 mg at bedtime Oxycodone 5 mg x 0 Lorazepam 0.5 mg hs x 1 Interval HPI: Remains afebrile, vital signs stable, on 3 L by nasal cannula, positive bowel movement ?3, regular diet. CRP 27 04/[address] extensive postsurgical changes. Chronic malunion of C2 fracture, cervical spondylosis with moderate stenosis at C7-T1 with possible cord flattening/compressio n 04/19 T12-L1 lesion biopsy pending per IR Subjective HPI: 75-year-old female was transferred from [facility] after diagnostic work-up demonstrated T12-L1 discitis/osteomyeliti s and possible malignant infiltration. Patient initially presented there with right-sided flank and back pain. She was treated for UTI and found to have moderate hydronephrosis. 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 Pain regimen confirmed to [facility] and includes gabapentin 100 mg 3 times daily, Ativan 0.5 mg twice daily as needed, oxycodone 5 mg every 4 hours PRN methadone 15 mg a.m., 10 mg p.m. and 10 mg at at bedtime. She has a history of chronic back pain as well as diffuse osteoarthritis status post right SINAN and right TKA. She states she last walked independently a while ago. Per chart, patient had prior T12/L5 laminectomy, L2-L5 fusion, status post occiput to C6 fusion.she has chronic bilateral foot drop. She is wheelchair-bound. OARRS Review: Negative. Does not reflect F pain regimen as documented above Current Facility-Administered Medications Medication Dose Route Frequency Provider Last Rate Last Dose - Hydrochlorothiazide 25 mg 25 mg ORAL DAILY Maria Eugenia Zuluagaandour 25 mg at 04/20/20 08 - lisinopril 5 mg tab(s) (ZESTRIL, PRINIVIL) 5 mg ORAL DAILY Abed Al-Hamid Ghandour 5 mg at 04/20/20826 - oxyCODONE IR 5 mg tab(s) (ROXICODONE) 5 mg ORAL q 4 H PRN Abed Al-Hamid Ghandour 5 mg at 04/20/20 08 - senna-docusate 8.6-50 mg 1 tablet (SENNA-S) 1 tablet ORAL BID Abed Al-Hamid Ghandour 1 tablet at 04/20/20 08 - hydrALAZINE 25 mg tab(s) (APRESOLINE) 25 mg ORAL q 8 H PRN Abed Al-Hamid Ghandour 25 mg at 04/15/20 1110 - gabapentin 100 mg cap(s) (NEURONTIN) 100 mg ORAL q 8 H Abed Al-Hamid Ghandour 100 mg at 04/20/20 0538 - methadone (DOLOPHINE) tab(s) 15 mg 15 mg ORAL DAILY (6 AM) Abed Al-Hamid Ghandour 15 mg at 04/20/20 0538 - methadone 10 mg tab(s) (DOLOPHINE) 10 mg ORAL DAILY AT 12 PM Abed Al-Hamid Ghandour 10 mg at 04/19/20 1124 - methadone 10 mg tab(s) (DOLOPHINE) 10 mg ORAL DAILY (10PM) Abed Al-Hamid Ghandour 10 mg at 04/19/20 193 - LORazepam 0.5 mg tab(s) (ATIVAN) 0.5 mg ORAL AT BEDTIME Abed Al-Hamid Ghandour 0.5 mg at 04/19/20 193 - metoprolol succinate ER 50 mg tab(s) (TOPROL XL) 50 mg ORAL DAILY Abed Al-Hamid Ghandour 50 mg at 04/20/20826 - citalopram 20 mg tab(s) (CeleXA) 20 mg ORAL DAILY Abed Al-Hamid Ghandour 20 mg at 04/20/20827 - DULoxetine 30 mg cap(s) (CYMBALTA) 30 mg ORAL DAILY Abed Al-Hamid Ghandour 30 mg at 04/20/20 0828 - sertraline 100 mg tab(s) (ZOLOFT) 100 mg ORAL DAILY Abed Al-Hamid Ghandour 100 mg at 04/20/20 0827 - ferrous sulfate 325 mg tab(s) 325 mg ORAL TID w MEALS Abed Al-Hamid Ghandour 325 mg at 04/20/20 0827 - albuterol 2.5 mg /3 mL (0.083 %) 2.5 mg (PROVENTIL) 3 mL INHALATION q 6 H PRN Abed Al-Hamid Ghandour - enoxaparin 40 mg injection (LOVENOX) 40 mg SUBCUTANEOUS DAILY Abed Al-Hamid Ghandour 40 mg at 04/20/20 0829 - sodium chloride 0.9 % (flush) 3-5 mL (BD POSIFLUSH) 3-5 mL INTRAVENOUS q 12 H Abed Al-Hamid Ghandour 3 mL at 04/20/20 0900 - ondansetron 4 mg tab(s) (ZOFRAN) 4 mg ORAL q 6 H PRN Abed Al-Hamid Ghandour 4 mg at 04/14/20 0951 Or - ondansetron (PF) 4 mg injection (ZOFRAN) 4 mg INTRAVENOUS q 6 H PRN Abed Al-Hamid Ghandour 4 mg at 04/19/20 1605 - acetaminophen 650 mg tab(s) (TYLENOL) 650 mg ORAL q 6 H PRN Abed Al-Hamid Ghandour 650 mg at 04/19/20 1758 - atorvastatin 10 mg tab(s) (LIPITOR) 10 mg ORAL AT BEDTIME Abed Al-Hamid Ghandour 10 mg at 04/19/20 1936 - docusate sodium (COLACE) 100 mg capsule, Take 100 mg by mouth as needed for Constipation., Disp: , Rfl: - ferrous sulfate 325 mg (65 mg iron) tablet, Take 325 mg by mouth three times daily with meals., Disp: , Rfl: - hydroCHLOROthiazide (HYDRODIURIL, ESIDRIX) 25 mg tablet, Take 25 mg by mouth once daily., Disp: , Rfl: - LISINOPRIL ORAL, Take 10 mg by mouth once daily., Disp: , Rfl: - metoprolol tartrate, short acting, (LOPRESSOR) 50 mg tablet, Take 50 mg by mouth twice daily., Disp: , Rfl: - LORazepam (ATIVAN) 0.5 mg, Take 0.5 mg by mouth twice daily., Disp: , Rfl: - zolpidem (AMBIEN) 5 mg tablet, Take 5 mg by mouth at bedtime as needed., Disp: , Rfl: - methadone (DOLOPHINE) 10 mg tablet, Take 10 mg by mouth every 4 hours as needed. 10 mg at 12:00pm , 22:00 pm and 15 mg in the AM, Disp: , Rfl: - Methenamine Hippurate (HIPREX) 1 gram tablet, Take 1 g by mouth twice daily with meals., Disp: , Rfl: - albuterol (PROVENTIL) 2.5 mg /3 mL (0.083 %) nebulizer solution, Use 3 mL via nebulizer every 4 hours., Disp: , Rfl: - diclofenac sodium (VOLTAREN) 1 % topical gel, Apply to affected area four times daily., Disp: , Rfl: - predniSONE (DELTASONE) 20 mg tablet, Take 40 mg by mouth once daily., Disp: , Rfl: - sertraline (ZOLOFT) 100 mg tablet, Take 100 mg by mouth once daily., Disp: , Rfl: - citalopram (CELEXA) 20 mg tablet, Take 20 mg by mouth once daily., Disp: , Rfl: - Gabapentin 300 mg Tab, Take 100 mg by mouth three times daily. , Disp: , Rfl: - meloxicam (MOBIC) 7.5 mg tablet, Take 7.5 mg by mouth once daily., Disp: , Rfl: - pravastatin 40 mg tablet, Take 40 mg by mouth once daily., Disp: , Rfl: - Multivitamins-Mineral s-Lutein (CENTRUM SILVER) Tab, Take 1 tablet by mouth once daily., Disp: , Rfl: - DULoxetine (CYMBALTA) 30 mg capsule, Take 1 a day for 2 weeks, then increase to 2 pills a day., Disp: 60 capsule, Rfl: 3 - LISINOPRIL-HYDROCHLOR OTHIAZIDE 10-12.5 mg ORAL per tablet, 1 tablet once daily., Disp: , Rfl: - metoprolol succinate ER (TOPROL XL) 50 mg 24 hr tablet, Take 50 mg by mouth once daily. , Disp: , Rfl: - oxyCODONE-acetaminoph en (PERCOCET) 5-325 mg ORAL tablet, Take 1 tablet by mouth every 4 hours as needed. , Disp: , Rfl: Social History Tobacco Use - Smoking status: Never Smoker - Smokeless tobacco: Never Used Substance Use Topics - Alcohol use: No - Drug use: No No family history on file. PAST SURGICAL HISTORY Procedure Laterality Date - LAMINECTOMY,CERVICAL Laminectomy, cervical fusion x2 - PAST SURGICAL HISTORY OF bladder suspenion x2 - REPAIR ROTATOR CUFF,ACUTE Rotator cuff repair bilat - TOTAL HIP REPLACEMENT Hip replacement, total - TOTAL KNEE REPLACEMENT Knee replacement, total - VAGINAL HYSTERECTOMY Hysterectomy, vaginal ROS: All of the following reviewed and negative except as noted below: Significant for HPI GENERAL: no fever, chills, sweats, weight loss, fatigue, generalized weakness HEENT: no headache, vision changes, eye discomfort, hearing change, ear discomfort, sinus pain, nasal discharge or congestion, oral lesions, soreness, dental problem NECK: no adenopathy, discomfort, change in ROM CHEST: no shortness of breath, dyspnea on exertion, wheezing, cough, sputum production or chest pain HEART: no chest pain, palpitations, syncope ABDOMEN: no nausea, vomiting, constipation, diarrhea, abdominal pain : no dysuria, urgency, frequency, history of stones, incontinence NEURO: no confusion or alteration in consciousness, slurred speech, seizure, focal weakness EXTREMITIES: no new pain, edema, change in ROM HEME: no new adenopathy, bruises, petechiae PSYCH: no depression, anxiety, agitation PAIN PSYCHIATRIC EXAM: GENERAL: alert, oriented to person, place JUDGMENT AND INSIGHT: Limited APPEARANCE: neatly groomed DEMEANOR: coooperative, not hostile, mistrustful, preoccupied, or demanding ACTIVITY: normal, not hyperactive or hypoactive, no tremors, tics EYE CONTACT: normal SPEECH: normal, rate, volume, articulation, coherence, spontaneity MOOD: normal, without overt sadness, grief, anxiety, appropriate to situation IDEATION: Deferred mEMORY: Impaired PHYSICAL EXAMINATION: GENERAL: well nourished and developed; pleasant mild confusion; no acute distress; alert and oriented x 2; limited judgement and insight HEENT: no evidence of trauma; cranial nerves intact; eyes clear EOMI; no hearing deficits apparent; nasal passages unremarkable; throat and mucous membranes clear NECK: supple without lymphadenopathy; no JVD; no thyromegaly CHEST: clear bilaterally to auscultation; normal chest movement; no rales or rhonchi HEART: regular rate and rhythm, normal S1 and S2, no murmurs, clicks, rubs, or gallops ABDOMEN: soft; nondistended; bowel sounds present; no hepatomegaly; no splenomegaly; no tenderness EXTREMITIES: no evidence of clubbing; no cyanosis; no deformity; no joint effusion; no edema NEURO: cranial nerves intact; no confusion; no tremor; sensorium normal; bilateral lower extremity weakness and foot drop SKIN: no rash; no skin breakdown; no decubitus lesions HEME: no bruising; no adenopathy PSYCH: no evidence of depression; no anxiety; no agitation; no apparent hallucinations BP 138/60 Pulse 67 Temp 36.6 ?C (97.8 ?F) (Oral) Resp 18 Ht 152.4 cm (5') Wt 98.4 kg (216 lb 14.4 oz) SpO2 100% BMI 42.36 kg/m? BMI 42.36 kg/(m2) Date 04/16/20699 - 04/17/20 0659 Shift 9113-1079 2049-1559 8934-6059 24 Hour Total INTAKE PO 240 240 Shift Total 240 240 OUTPUT Shift Total Weight (kg) 96.9 96.9 96.9 96.9 Date 04/15/20699 - 04/16/2065804/16/20699 - 04/17/20 0659 Shift 9163-3457 5443-8486 2592-2589 24 Hour Total 7122-6163 7585-5095 0028-4111 24 Hour Total INTAKE PO 240 240 PO 240 240 Shift Total 240 240 OUTPUT Urine 0432 093 2524 Void (ml) 850 850 Urine Incontinence/Not Saved 1 x 1 x Output ( External Collection Device 04/13/20 2225) 285 377 5846 # of BMs Stool Incontinence 2 x 2 x Shift Total 7697 464 5239 Weight (kg) 100.2 99.3 96.9 96.9 96.9 96.9 96.9 96.9 ABNORMAL/NEW FINDINGS: NONE RADIOLOGY/DIAGNOSTICS : LABORATORY: CBC: No results for input(s): WBC, RBC, HB, HCT, PLT, MCV, MCH, MPV, RDW in the last 24 hours. CMP: No results for input(s): NA, K, CHLOR, CO2, BUN, CREAT, GLUC, TPROT, CA, MG, ALBUMIN, TBILI, ALKPHOS, ALT, AST, ANION in the last 24 hours. Heme: No results for input(s): RETICP, ABSRETIC, LD, ANTONIETTA, FE, TIBC, TRANSFERSAT in the last 24 hours. ASSESSMENT ACTIVE PROBLEM LIST Fracture of Cervical Vertebra, C2 (Hcc) Cervical Spinal Stenosis Myelopathy (Hcc) S/P Cervical Spinal Fusion Shoulder Pain Osteoarthritis, Knee Neck pain Cervicalgia Uti (Urinary Tract Infection) Obesity, Class III, BMI >= 40 PLAN: Patient with history of multiple prior spine surgeries as outlined above, wheelchair-bound with bilateral foot drop presents with destructive lesion of L1, T12 which is progressed compared to 2013. Patient with severe cervical stenosis as outlined above on CT Poor functional baseline; no significant change in neurologic function IR guided biopsy 04/19 pending. 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 and 10 mg at bedtime Oxycodone 5 mg every 4 hours PRN; encouraged paient to use Senna S twice daily Alyson Thomas MD [facility] THERAPY NTon 04-20-2020 THERAPY NT HNO ID: [id number] Author: Racquel Donald Service: Physical Therapy Author Type: Voice Professor Type: Therapy (PT/OT/Speech/Resp) Filed: 04/20/2020 10:27 AM Note Text: Attestation signed by Grant Ruby PT at 04/20/2020 4:42 PM I reviewed and agree with the documentation corresponding to this therapy visit. SIGNATURE: Grant Ruby PT DATE: April 20, 2020 TIME: 4:42 PM Physical Therapy Treatment SERVICE DATE: 04/20/2020 SERVICE TIME: 1045 to 1110 ROOM: [id number] Recommended Discharge Disposition: Subacute/SNF Recommended Discharge Disposition Comments: return to ECF with skilled therapies to return to baseline Justification For Post Acute Needs: Anticipate that patient will require daily (5x/wk) skilled therapy in a post-acute facility setting at the time of acute hospital discharge PT Recommendations to Nursing: Utilize bed in chair position;Sit at edge of bed;With assist of 2 people;Not appropriate for OOB activity at this time PT 6 Clicks Score: 8 Precautions/Activity Restrictions: Fall Risk;Lines/Tubes/Drai ns Isolation Type: None ASSESSMENT : Patient Disposition at Start of Session: Supine in Bed;Call [facility] in Reach;Bed Alarm;Family Present(daughterNaina) Patient Disposition at End of Session: Supine in Bed;Call [facility] in Reach;Bed Alarm;Family Present Tolerated Full Session Fatigue Patient making progress toward goals and being able to sit up at edge of bed this session. Patient requires occasional assist with cues for postural alignment and trunk control while sitting. Unsafe to attempt transfer to chair due to fatigue and weakness in her legs. Daughter reports that patient is mostly at a wheelchair level but is below baseline with transfers and bed mobility. Goals ongoing. Physical Therapy Problem List: Decreased Activity Tolerance;Functional Mobility Impairment;Decreased Range Of Motion;Decreased Strength Patient /Caregiver Goals: Go To Rehab Goals for Plan of Care: Transfer supine to/from sit with: Minimal Assistance Transfer sit to/from stand with: Moderate Assistance(x2) Goal: sit EOB x10 min completing static and dynamic activity Goal: 2x10 reps bilat LE AROM exercises Progress Toward Goals: Progressing as expected Rehab Potential: Fair PLAN: Treatment Frequency (times per week): 5(1-5) Current admission Treatment Interventions: Education;Joint Mobility;Strengthenin g;Functional Mobility Training;Balance Training Plan of Care developed with: Patient TREATMENT INTERVENTIONS: Therapy Diagnosis: Reduced mobility-other;Muscle Weakness (generalized);Abnorma lities of gait and mobility-other Interventions Provided: Therapeutic Exercise (40332);Therapeutic Activity (14386) Therapeutic Exercise (30242) Treatment Minutes: 12 1 unit Skilled Intervention(s): Instruction in therapeutic exercise for both legs: ankle pump (with manual assist), quad set, glute set, adductor set, hip abduction/adduction, heel slide, short arc quad, and long arc quad x 12-15 reps with min assist. Verbal and tactile cuing provided for slower pace, greater eccentric quad control and maintain proper alignment. Therapeutic Activity (85474) Treatment Minutes: 13 1 unit Skilled Intervention(s): Instructed patient in log roll technique, Instructed patient in supine to and from sit pushing with upper extremities to sit up with head of bed at 10 degrees and heavy reliance on rail. Patient able to roll to either direction but needs assist with positioning of her legs and to get her hand on the rail. Use of pillow between her legs to roll and to maintain hip alignment (history of dislocation per patient/daughter). Patient voiced feeling more comfortable with use of pillow between her legs. Patient still requires assist with her legs and trunk. Education with use of call light for assistance. Worked on sitting at edge of bed with bilateral upper extremity support. Worked on anterior pelvic tilts to help with sitting trunk control and minimize retrograde loss of balance. Worked on lateral weight shifting and attempting sit scoots to prepare for transfers (uses a transfer board at home). Patient tolerated at least 6 minutes at edge of bed. Total Timed Code Treatment Minutes: 25 Total Treatment Time (minutes): 25 SUBJECTIVE: Current Hospital Course: Chart reviewed and no significant medical updates relevant to therapy were noted Reason for Physical Therapy Consult : eval and treat Relevant Past Medical History: COPD, HTN, HLD, depression, anemia, spinal stenosis, arthritis Patient Report: back pain at worse 7/10 but eases once repositioned. Home Environment Patient Lives With: Spouse;Facility Care([facility]) Assistance Available: 24 Hour Entry To Home: No Stairs Number Of Stairs To Bed/Bath: 0 Tub/Shower Type: walk in/roll in Laundry: staff completes Equipment Owned: (electric w/c; slide board or sling lift) Prior Functional Level: Required Assistance;Within Functional Limits Assistance Required With: Transfers;Self Care;Cleaning;Laundry ;Meals;Stairs;Transpo rtation;Wheelchair Mobility;Shopping Prior Functional Level Comments: Patient reports she required assist with all ADLs, total assist for IADls, used power wheelchair and transferred via jareth or slideboard. OBJECTIVE: CURRENT FUNCTIONAL STATUS: Current Functional Mobility Assist Level Additional Information Rolling Maximal Assistance Supine to Sit Maximal Assistance Sit to Supine Maximal Assistance Scooting Maximal Assistance Sit to Stand Stand to Sit Bed to Chair Toilet/Commode Gait Stairs Curb Step Car Transfer Balance: Static Sitting;Dynamic Sitting Static Sitting Balance: Fair Patient able to maintain balance with handhold support, may require occasional minimal assistance Dynamic Sitting Balance: Fair Patient accepts minimal challenge, able to maintain balance while turning head/trunk Activity Tolerance: Sitting Activity Sitting Activity: edge of bed Sitting Activity Tolerance (in minutes): 6 JH-HLM: 3: Sit at edge of bed Please see discipline specific clinical documentation flowsheet for complete details for this therapy evaluation/treatment. SIGNATURE: Racquel Donald PTA PATIENT NAME: Patricia Hawley DATE: April 20, 2020 TIME: 10:18 AM [facility] THERAPY NT HNO ID: [id number] Author: Racquel Donald Service: Physical Therapy Author Type: Voice Professor Type: Therapy (PT/OT/Speech/Resp) Filed: 04/20/2020 8:33 AM Note Text: Attestation signed by Grant Ruby PT at 04/20/2020 4:42 PM I reviewed and agree with the documentation corresponding to this therapy visit. SIGNATURE: Grant Ruby PT DATE: April 20, 2020 TIME: 4:42 PM PHYSICAL THERAPY MISSED VISIT SERVICE DATE: 04/20/2020 SERVICE TIME: 829 to 0830 ROOM: [id number] Attempted Treatment. Patient not seen due to Eating. SIGNATURE: Racquel Donald PTA PATIENT NAME: Patricia Hawley DATE: April 20, 2020 TIME: 8:32 AM [facility] CONSULT PROGon 04-19-2020 CONSULT PROG HNO ID: [id number] Author: Giovani Shin Service: Infectious Disease Author Type: Physician Type: Consult Progress Note Filed: 04/19/2020 3:26 PM Note Text: PROGRESS NOTE INFECTIOUS DISEASE BRIEF SUMMARY: 74F h/o spinal stenosis s/p T12-L5 decompressive bilateral laminectomy with foraminotomies from T12-L5 for decompression. Presented to [facility]SH ([facility]) on 04/12/20 for R flank pain found to have UTI + hydronephrosis, transferred to [facility] 04/14/20 because of worsening paresthesias of legs, MRI c/t/l showed T12-L1 OM vs discitis vs malignancy. ASSESSMENT: 1. Ecoli UTI + hydronephrosis - treated w ceftriaxone 5 days 2. Chronic T12-L1 vertebral body destruction, worsening s/p IR-guided biopsy 04/19/20 Estimated Creatinine Clearance: 48.7 mL/min (A) (based on SCr of 1.05 mg/dL (H)). RECOMMENDATIONS: - await cx - d/c planning when cx is 24-48 hours resulted SUBJECTIVE: Interval Events: 04/15 better mentation today 04/18 no event over the weekend 04/19 went down for IR guided biopsy Medications: Current Facility-Administered Medications Medication Dose Route Frequency - [MAR Hold due to Transfer] metoprolol succinate ER 50 mg tab(s) (TOPROL XL) 50 mg ORAL DAILY - [MAR Hold due to Transfer] citalopram 20 mg tab(s) (CeleXA) 20 mg ORAL DAILY - [MAR Hold due to Transfer] DULoxetine 30 mg cap(s) (CYMBALTA) 30 mg ORAL DAILY - [MAR Hold due to Transfer] sertraline 100 mg tab(s) (ZOLOFT) 100 mg ORAL DAILY - [MAR Hold due to Transfer] ferrous sulfate 325 mg tab(s) 325 mg ORAL TID w MEALS - [MAR Hold due to Transfer] albuterol 2.5 mg /3 mL (0.083 %) 2.5 mg (PROVENTIL) 3 mL INHALATION q 6 H PRN - [MAR Hold due to Transfer] enoxaparin 40 mg injection (LOVENOX) 40 mg SUBCUTANEOUS DAILY - [MAR Hold due to Transfer] sodium chloride 0.9 % (flush) 3-5 mL (BD POSIFLUSH) 3-5 mL INTRAVENOUS q 12 H - [MAR Hold due to Transfer] ondansetron 4 mg tab(s) (ZOFRAN) 4 mg ORAL q 6 H PRN Or - [MAR Hold due to Transfer] ondansetron (PF) 4 mg injection (ZOFRAN) 4 mg INTRAVENOUS q 6 H PRN - [MAR Hold due to Transfer] acetaminophen 650 mg tab(s) (TYLENOL) 650 mg ORAL q 6 H PRN - [MAR Hold due to Transfer] atorvastatin 10 mg tab(s) (LIPITOR) 10 mg ORAL AT BEDTIME - [MAR Hold due to Transfer] hydrALAZINE 25 mg tab(s) (APRESOLINE) 25 mg ORAL q 8 H PRN - [MAR Hold due to Transfer] gabapentin 100 mg cap(s) (NEURONTIN) 100 mg ORAL q 8 H - [MAR Hold due to Transfer] methadone (DOLOPHINE) tab(s) 15 mg 15 mg ORAL DAILY (6 AM) - [MAR Hold due to Transfer] methadone 10 mg tab(s) (DOLOPHINE) 10 mg ORAL DAILY AT 12 PM - [MAR Hold due to Transfer] methadone 10 mg tab(s) (DOLOPHINE) 10 mg ORAL DAILY (10PM) - [MAR Hold due to Transfer] LORazepam 0.5 mg tab(s) (ATIVAN) 0.5 mg ORAL AT BEDTIME - [MAR Hold due to Transfer] oxyCODONE IR 5 mg tab(s) (ROXICODONE) 5 mg ORAL q 4 H PRN - [MAR Hold due to Transfer] senna-docusate 8.6-50 mg 1 tablet (SENNA-S) 1 tablet ORAL BID - [MAR Hold due to Transfer] lisinopril 5 mg tab(s) (ZESTRIL, PRINIVIL) 5 mg ORAL DAILY - [MAR Hold due to Transfer] Hydrochlorothiazide 25 mg 25 mg ORAL DAILY OBJECTIVE: Physical Exam: BP (!) 118/48 Pulse 69 Temp 36.8 ?C (98.2 ?F) (Oral) Resp 18 Ht 152.4 cm (5') Wt 98.3 kg (216 lb 11.2 oz) SpO2 100% BMI 42.32 kg/m? Lab data: WBC (thou/cmm) Date Value 2020 6.82 04/14/2020 8.02 07/28/2013 5.1 07/26/2013 6.7 07/24/2013 7.1 Platelet Count (thou/cmm) Date Value 2020 324 04/14/2020 317 07/28/2013 288 07/26/2013 274 07/24/2013 290 Creatinine (mg/dL) Date Value 04/18/2020 1.05 04/17/2020 1.22 2020 0.99 04/14/2020 0.97 07/26/2013 1.01 AST (U/L) Date Value 2020 see below ALT (U/L) Date Value 2020 13 DATA: Diagnostic Tests Reviewed for Today's Visit: Most recent labs Most recent imaging Microbiology data: Positive Micro-30 Days No results found for the last 720 hours. Ecoli 04/13/20 Ampicillin $ >=32 R Ampicillin/Sulbactam $ >=32 R Cefazolin $ <=4 S Cefepime $ <=0.12 S Ceftriaxone $ <=0.25 S Ciprofloxacin $ >=4 R Ertapenim $$$ <=0.12 S ESBL NEG Gentamicin $ >=16 R Imipenem *NF <=0.25 S Levofloxacin $ >=8 R Nitrofurantoin $ <=16 S Piperacillin/Tazobact am $$ 8 S Tobramycin $ 8 I Trimethoprim/Sulfamet ho $ >=320 R Reference Range: S= Susceptible, I= Intermediate, R= Resistant MICS are expressed in micrograms per mL Giovani Shin MD Infectious Disease Respiratory [place] Pager: [phone] [facility] [address] BX RIB/PELV/TENA/SPINE P ROCon 04-19-2020 CT BX RIB/PELV/TENA/SPINE PROC Final Report DATE OF EXAM: Apr 19 2020 10:49AM [facility] 2037 - CT BX RIB/PELV/TENA/SPINE PROC / PROCEDURE REASON: Osteomyelitis, spine Physician Interpretation PROCEDURE PERFORMED: CT GUIDED ASPIRATION AND BONE BIOPSY ON 04/19/2020 PRE-PROCEDURE DIAGNOSIS: Vertebral body abscess POST-PROCEDURE DIAGNOSIS: Same INDICATION FOR PROCEDURE: The patient is a 75 years old Female who presents with a vertebral body abscess, centered at T12-L1. STAFF RADIOLOGIST: Maria Eugenia Qureshi MD RN CHEMICAL DEPENDENCY(S): None CONSENT: The risks, benefits, treatment options, potential complications and personnel involved were discussed with the patient. All questions were answered and consent was obtained. The patient and her daughter (POA) indicated they were willing to proceed. The staff physician personally verified consent. TIME OUT: A time out was performed immediately prior to procedure start with the nursing, anesthesia and interventional team, correctly identifying the patient name, date of , procedure, anatomy (including marking of site and side), patient position, procedure consent form, relevant diagnostic and radiology test results, antibiotic administration (when indicated), safety precautions, and procedure-specific equipment needs. RESULT: PROCEDURE: After performing the time out, the infectious process/abscess was localized under CT. Skin entry site was prepped and draped in the usual sterile fashion. Under direct CT guidance, an 11 gauge trochar needle was advanced to the abscess. Through the trochar needle, multiple fluid samples were obtained. These were placed in separate syringes and sent for cultures. Through the trochar needle, a 13-gauge Oncontrol biopsy needle was advanced into the bone. Both the 11 and 13-gauge needles were used to obtain a biopsy sample. The procedure was performed by the: attending radiologist, without an virtual assistant for advertisers. The attending radiologist performed the following procedural activities: Entire procedure ANESTHESIA/SEDATION: Conscious sedation was achieved using 1 mg of versed and 50 mcg of fentanyl intravenously. Local anesthesia was achieved utilizing 10 cc 2% percent lidocaine. Vital signs were monitored by the nurse. START TIME/TIMEOUT TIME: 10:10 AM END TIME: 10:40 AM INTRA-SERVICE (SEDATION) TIME: 30 minutes PATIENT MONITORING: The staff physician personally supervised and directed an independent trained observer who assisted in monitoring the patient?s level of consciousness and physiological status throughout the procedure. COMPLICATIONS: None SIGN-OUT DISCUSSION: Completed ESTIMATED BLOOD LOSS: Minimal CONTRAST: None CT ABDOMEN AND PELVIS RADIATION DOSE: Dose-length product (DLP) = 162 mGycm. SPECIMENS: 15 cc of fluid were aspirated and sent to fungal, bacterial, and AFB culture and stains. Core biopsy specimen was minimal, however, was sent to pathology. BIOPSY DEVICE: 11 and 13 gauge Qriously biopsy needle system. IMPRESSION: CT GUIDED ASPIRATION AND BIOPSY OF VERTEBRAL BODY ABSCESS CENTERED AT T12-L1 DESCRIBED Brick Paving Checker: FABI Transcribe Date/Time: Apr 19 2020 2:24P Dictated by : MARIA EUGENIA QURESHI MD This examination was interpreted and the report reviewed and electronically signed by: MARIA EUGENIA QURESHI MD on Apr 19 2020 2:33PM EST Normal [facility] CT CERVICAL SPINE WO IVCONon 04-19-2020 CT CERVICAL SPINE WO IVCON Final Report DATE OF EXAM: Apr 19 2020 4:32PM [facility] 0505 - CT CERVICAL SPINE WO IVCON / PROCEDURE REASON: C-spine fx, traumatic Physician Interpretation EXAMINATION: CT CERVICAL SPINE WO IVCON CLINICAL HISTORY: C-SPINE STENOSIS TECHNIQUE: CT of the cervical spine without IV contrast. Spiral, high resolution axial images were obtained from the skull base to the cervicothoracic junction with sagittal and coronal planar reconstructions. MQ: [id number] CT Dose-Length Product (DLP): [address] Dose Reduction Employed: Automated exposure control(AEC) and iterative recon COMPARISON: Outside MR cervical spine 04/12/2020. CT cervical spine 02/11/2012. RESULT: Counting reference: Craniocervical junction. Anatomic Variants: None. [employer] (topogram) images: No additional findings. Alignment: There is mild reversal of the cervical lordosis Craniocervical junction: There is chronic malunion of C2 dens fracture, which is stable from 2012. Osseous structures/fracture: Again noted is C3 and C4 laminectomy, C4-C6 corpectomy with strut graft, C3-C6 anterior fusion, and occipital to C6 posterior fusion. The hardware is intact, in proper position. There is minimal periprosthetic lucency at the occipital screws. There is osseous fusion at C2-C7 posterior elements. There is osseous fusion at C6-C7 and C7-T1 disc spaces. No evidence of a lytic or blastic process in the visualized spine. No evidence of acute fracture. Cervical soft tissues: The paraspinal soft tissues are within normal limits. Degenerative changes: There is extensive degenerative changes. Disc osteophyte complex contributes to mild canal stenosis at C6-7. There is moderate bony canal stenosis at C7-T1. There is severe bony foraminal stenosis at right C7-T1. IMPRESSION: Extensive postsurgical changes as described. Chronic malunion of C2 fracture.. No evidence of an acute fracture. Cervical spondylosis. Moderate canal stenosis at C7-T1 with possible cord flattening/compressio n. Please refer to outside MR cervical spine. Anatomic Variant: None. Assume 7 cervical vertebrae with counting from the craniocervical junction. Brick Paving Checker: PSCB Transcribe Date/Time: Apr 19 2020 4:44P Dictated by : MEHNAZ OSBORNE MD This examination was interpreted and the report reviewed and electronically signed by: MEHNAZ OSBORNE MD on Apr 19 2020 5:01PM EST [facility] Cult Fungalon 04-19-2020 Cult Fungal Test performed at [facility] No fungus (yeast or mold) cultured [facility] Comment on above: Performed By: #### B MP #### [place] [id number] Cult and Smr AFB (TB)on 04-02 Cult and Smr AF[employer] (TB) Test performed at [facility] No acid fast bacilli cultured No AFB by Fluorochrome stain [facility] Comment on above: Performed By: #### B MP #### [place] [id number] Cult and Smr BERNARDINO and AERon 0 04-19-2020 Cult and Smr BERNARDINO and AER Test performed at [facility] No growth No organisms seen Many Polymorphonuclear leukocytes Few Mononuclear cells [facility] Comment on above: Performed By: #### B MP #### [place] [id number] Cult and Smr Aerobicon 04-19 Cult and Smr Aerobic Test performed at [facility] PROGRESSon 04-19-2020 PROGRESS HNO ID: [id number] Author: Jasmina Oakley Service: Hospital Medicine Author Type: Physician Type: Progress Notes Filed: 04/19/2020 8:15 PM Note Text: DEPARTMENT OF HOSPITAL MEDICINE PROGRESS NOTE SERVICE DATE: 04/19/2020 SERVICE TIME: 8:10 PM Hospital Medicine/Primary Attending: Jasmina Oakley MD NIGHT AND WEEKEND COVERAGE: After 7pm please page [phone] CHIEF COMPLAINT: Back pain SUBJECTIVE: Status post IR guided biopsy today. Had some pain. No new neuro deficit. No fever chills OBJECTIVE: PHYSICAL EXAM: BP 141/45 Pulse 60 Temp (Src) 97.8 (Oral) Resp 16 Ht 5' 0 (1.52m) Wt 216 lb 14.4 oz (98.4kg) SpO2 99% BMI 42.36 kg/(m2). O2 Therapy: Nasal Cannula, Liters: 4 GENERAL: A bit sleepy but answers questions appropriately. no distress, cooperative, obese SKIN: Skin warm OROPHARYNX: Lips, mucosa, and tongue normal. LUNGS: Lungs clear to auscultation, Air entry diminished bilaterally, Unlabored breathing. CARDIAC: Normal S1 and S2; no rubs, murmurs, or gallops ABDOMEN: Abdomen soft, non-tender, non-distended, BS normal EXTREMITIES: Normal, no deformities, edema, clubbing or skin discoloration. NEURO: A bit sleepy. Was able to answer appropriately. Bilateral foot drop MEDICATIONS: Current Facility-Administered Medications Medication Dose Route Frequency - metoprolol succinate ER 50 mg tab(s) (TOPROL XL) 50 mg ORAL DAILY - citalopram 20 mg tab(s) (CeleXA) 20 mg ORAL DAILY - DULoxetine 30 mg cap(s) (CYMBALTA) 30 mg ORAL DAILY - sertraline 100 mg tab(s) (ZOLOFT) 100 mg ORAL DAILY - ferrous sulfate 325 mg tab(s) 325 mg ORAL TID w MEALS - albuterol 2.5 mg /3 mL (0.083 %) 2.5 mg (PROVENTIL) 3 mL INHALATION q 6 H PRN - enoxaparin 40 mg injection (LOVENOX) 40 mg SUBCUTANEOUS DAILY - sodium chloride 0.9 % (flush) 3-5 mL (BD POSIFLUSH) 3-5 mL INTRAVENOUS q 12 H - ondansetron 4 mg tab(s) (ZOFRAN) 4 mg ORAL q 6 H PRN Or - ondansetron (PF) 4 mg injection (ZOFRAN) 4 mg INTRAVENOUS q 6 H PRN - acetaminophen 650 mg tab(s) (TYLENOL) 650 mg ORAL q 6 H PRN - atorvastatin 10 mg tab(s) (LIPITOR) 10 mg ORAL AT BEDTIME - hydrALAZINE 25 mg tab(s) (APRESOLINE) 25 mg ORAL q 8 H PRN - gabapentin 100 mg cap(s) (NEURONTIN) 100 mg ORAL q 8 H - methadone (DOLOPHINE) tab(s) 15 mg 15 mg ORAL DAILY (6 AM) - methadone 10 mg tab(s) (DOLOPHINE) 10 mg ORAL DAILY AT 12 PM - methadone 10 mg tab(s) (DOLOPHINE) 10 mg ORAL DAILY (10PM) - LORazepam 0.5 mg tab(s) (ATIVAN) 0.5 mg ORAL AT BEDTIME - oxyCODONE IR 5 mg tab(s) (ROXICODONE) 5 mg ORAL q 4 H PRN - senna-docusate 8.6-50 mg 1 tablet (SENNA-S) 1 tablet ORAL BID - lisinopril 5 mg tab(s) (ZESTRIL, PRINIVIL) 5 mg ORAL DAILY - Hydrochlorothiazide 25 mg 25 mg ORAL DAILY DATA: Diagnostic tests reviewed for today's visit: CBC, Coags, BMP, Mg, Phos Recent Labs 04/18/20 0645 04/17/20 0553 NA 140 139 K 3.9 4.2 CHLOR 100 97 CO2 29 31* BUN 26* 28* CREAT 1.05* 1.22* GLUC 92 78 CA 9.1 9.3 Liver Function, Amylase, AND Lipase Cardiac Enzymes Heme: No results for input(s): RETICP, ABSRETIC, LD, ANTONIETTA, FE, TIBC, TRANSFERSAT in the last 24 hours. No results found for: UALBCR Assessment/Plan Patient Active Hospital Problem List: UTI (urinary tract infection) (04/14/2020) ASSESSMENT: Mrs Hawley?transfer most of hospital for the concern of vertebral discitis/osteomyeliti s. ? She has: ? 1.??chronic destruction at T12-L1 and T11-T12 level: Suspect infectious process. Iess likely a malignant process. S/p?MRI cervical, thoracic, lumbar spine at OSH-?results reviewed. WBC normal. ?CRP elevated at 27 Evaluated by ID and neurosurgery. S/p IR guided biopsy on Saturday. ? Neurosurgery is considering surgical reconstruction of anterior column some point in time pending biopsy result. ? 2. ?UTI pyelonephritis: E. coli. Urinalysis was positive for pyuria at?OSH. Treated with 5 days of ceftriaxone ? 3. ?History of lumbar and cervical spine surgery: Has hardware/screws in cervical spine ? 4. ?Debility at baseline: Uses a wheelchair all the time baseline. Resides in a NH ? ? Chronic medical conditions 1. ?Hypertension:?On lisinopril and HCTZ. Blood Pressure fluctuating 2. ?Anemia 3. ?Chronic pain syndrome:?On methadone and gabapentin.. ?Restarted today pain management consulted.? 4. ?COPD 5. ?Chronic hypoxic respiratory failure 2 L nasal cannula 6. ?Hyperlipidemia 7. ?ARCHANA. 8. ?Anxiety:?On citalopram and Cymbalta. ?Also takes lorazepam as needed especially at night 8.??No longer taking prednisone ? PLAN: Continue current treatment. Await culture and pathology result from biopsy. Await further input from ID and neurosurgery VTE Prophylaxis: Lovenox 40mg Sub Q Daily Disposition: To be determined Plan of care discussed with: Patient SIGNATURE: Jasmina Oakley MD PATIENT NAME: Patricia Hawley DATE: April 19, 2020 TIME: 8:10 PM PAGER/CONTACT #: [phone] [facility] PROGRESS HNO ID: [id number] Author: Rylee Wu (Bon) BON Lora Service: Neurosurgery Author Type: Physician Corporate Health Consultant Type: Progress Notes Filed: 04/19/2020 2:33 PM Note Text: Neurosurgery Progress Note SERVICE DATE: 04/19/2020 SUBJECTIVE: Pt back from biopsy today. States right back/flank painful. Denies LE pain. Eating and voiding, nonambulatory OBJECTIVE: Vitals: Temp (24hrs), Av.9 ?C (98.5 ?F), Min:36.6 ?C (97.9 ?F), Max:37.5 ?C (99.5 ?F) BP 105/57 Pulse 75 Temp 36.8 ?C (98.2 ?F) (Oral) Resp 16 Ht 152.4 cm (5') Wt 98.3 kg (216 lb 11.2 oz) SpO2 100% BMI 42.32 kg/m? O2 Therapy: Nasal Cannula IANDO: Date 04/18/20 0700 - 04/19/20 0659 04/19/20 0700 - 04/20/20 0659 Shift 7256-7711 5909-4974 5632-1826 24 Hour Total 6483-0318 0540-6527 5738-8537 24 Hour Total INTAKE Shift Total OUTPUT Urine 800 800 Urine Not Saved. 1 x 1 x Output ( External Collection Device 04/13/20 2225) 800 800 # of BMs Stool Incontinence 1 x 1 x 2 x Number of BMs 1 x 1 x 1 x 3 x Shift Total 800 800 Weight (kg) 98.1 98.3 98.3 98.3 98.3 98.3 98.3 98.3 MEDICATIONS Current Facility-Administered Medications Medication Dose Route Frequency - Hydrochlorothiazide 25 mg 25 mg ORAL DAILY - lisinopril 5 mg tab(s) (ZESTRIL, PRINIVIL) 5 mg ORAL DAILY - oxyCODONE IR 5 mg tab(s) (ROXICODONE) 5 mg ORAL q 4 H PRN - senna-docusate 8.6-50 mg 1 tablet (SENNA-S) 1 tablet ORAL BID - hydrALAZINE 25 mg tab(s) (APRESOLINE) 25 mg ORAL q 8 H PRN - gabapentin 100 mg cap(s) (NEURONTIN) 100 mg ORAL q 8 H - methadone (DOLOPHINE) tab(s) 15 mg 15 mg ORAL DAILY (6 AM) - methadone 10 mg tab(s) (DOLOPHINE) 10 mg ORAL DAILY AT 12 PM - methadone 10 mg tab(s) (DOLOPHINE) 10 mg ORAL DAILY (10PM) - LORazepam 0.5 mg tab(s) (ATIVAN) 0.5 mg ORAL AT BEDTIME - metoprolol succinate ER 50 mg tab(s) (TOPROL XL) 50 mg ORAL DAILY - citalopram 20 mg tab(s) (CeleXA) 20 mg ORAL DAILY - DULoxetine 30 mg cap(s) (CYMBALTA) 30 mg ORAL DAILY - sertraline 100 mg tab(s) (ZOLOFT) 100 mg ORAL DAILY - ferrous sulfate 325 mg tab(s) 325 mg ORAL TID w MEALS - albuterol 2.5 mg /3 mL (0.083 %) 2.5 mg (PROVENTIL) 3 mL INHALATION q 6 H PRN - enoxaparin 40 mg injection (LOVENOX) 40 mg SUBCUTANEOUS DAILY - sodium chloride 0.9 % (flush) 3-5 mL (BD POSIFLUSH) 3-5 mL INTRAVENOUS q 12 H - ondansetron 4 mg tab(s) (ZOFRAN) 4 mg ORAL q 6 H PRN Or - ondansetron (PF) 4 mg injection (ZOFRAN) 4 mg INTRAVENOUS q 6 H PRN - acetaminophen 650 mg tab(s) (TYLENOL) 650 mg ORAL q 6 H PRN - atorvastatin 10 mg tab(s) (LIPITOR) 10 mg ORAL AT BEDTIME Labs: Recent Labs 04/18/20 0645 04/17/20 0553 NA 140 139 K 3.9 4.2 CHLOR 100 97 CO2 29 31* BUN 26* 28* CREAT 1.05* 1.22* GLUC 92 78 ANION 11 11 CA 9.1 9.3 Exam: GENERAL: No distress, Alert, sitting up in bed, cooperative NEURO: word finding difficulties but speech clear; oriented to name, place, month, bd - msp: bue 4/5 strength throughout; BLE foot drop but rle moves better than lle PF/DF 0/5, HF rt 3, lt 2; KE/KF rt 4-, lt 3 HEENT: normocephalic, atraumatic LUNGS: Unlabored breathing EXTREMITIES: No deformities SKIN: Skin color, texture, turgor normal, No rashes or lesions ASSESSMENT AND PLAN: Active Hospital Problems Diagnosis Date Noted - UTI (urinary tract infection) 04/14/2020 75 year old female with advanced OM and destructive lesion at T12-L1; also severe cervical stenosis - neuro unchanged - biopsy completed - awaiting path report - poss reconstructive surgery - pain control - PM on board - med mgmt SIGNATURE: BON Roberts PATIENT NAME: Patricia Hawley DATE: April 19, 2020 TIME: 2:12 PM Pager: [phone] [facility] PROGRESS HNO ID: [id number] Author: Alyson Thomas Service: Pain Management Author Type: Physician Type: Progress Notes Filed: 04/19/2020 9:07 AM Note Text: Name: PATRICIA HAWLEY Age: [age] year old PAIN MANAGEMENT: Acute on chronic back pain, T11-12, T12-L1 osteomyelitis/disciti s; multilevel degenerative disc disease Pain Description: Intermittent pain low back; on her right side. Worse with movement 24H Comfort Meds: Tylenol 650 mg x1 Cymbalta 30 mg daily Gabapentin 100 mg x 3 Methadone 15 mg a.m., 10 mg p.m. and 10 mg at bedtime Oxycodone 5 mg x 0 Lorazepam 0.5 mg hs x 1 Interval HPI: Remains afebrile, vital signs stable, on 3 L by nasal cannula, positive bowel movement ?3, regular diet. Good pain control. CRP 27 T12-L1 lesion biopsy pending per IR Subjective HPI: 75-year-old female was transferred from [facility] after diagnostic work-up demonstrated T12-L1 discitis/osteomyeliti s and possible malignant infiltration. Patient initially presented there with right-sided flank and back pain. She was treated for UTI and found to have moderate hydronephrosis. 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 Pain regimen confirmed to [facility] and includes gabapentin 100 mg 3 times daily, Ativan 0.5 mg twice daily as needed, oxycodone 5 mg every 4 hours PRN methadone 15 mg a.m., 10 mg p.m. and 10 mg at at bedtime. She has a history of chronic back pain as well as diffuse osteoarthritis status post right SINAN and right TKA. She states she last walked independently a while ago. Per chart, patient had prior T12/L5 laminectomy, L2-L5 fusion, status post occiput to C6 fusion.she has chronic bilateral foot drop. She is wheelchair-bound. OARRS Review: Negative. Does not reflect F pain regimen as documented above Current Facility-Administered Medications Medication Dose Route Frequency Provider Last Rate Last Dose - Hydrochlorothiazide 25 mg 25 mg ORAL DAILY Jasmina Hazel 25 mg at 04/18/20 0854 - lisinopril 5 mg tab(s) (ZESTRIL, PRINIVIL) 5 mg ORAL DAILY Jasmina Hazel 5 mg at 04/18/20 0854 - oxyCODONE IR 5 mg tab(s) (ROXICODONE) 5 mg ORAL q 4 H PRN Alyson K Scantling 5 mg at 04/17/201652 - senna-docusate 8.6-50 mg 1 tablet (SENNA-S) 1 tablet ORAL BID Alyson K Scantling 1 tablet at 04/18/202010 - hydrALAZINE 25 mg tab(s) (APRESOLINE) 25 mg ORAL q 8 H PRN Jasmina Hazel 25 mg at 04/15/20 1110 - gabapentin 100 mg cap(s) (NEURONTIN) 100 mg ORAL q 8 H Jasmina Hazel 100 mg at 04/19/20 0527 - methadone (DOLOPHINE) tab(s) 15 mg 15 mg ORAL DAILY (6 AM) Jasmina Hazel 15 mg at 04/19/20 0527 - methadone 10 mg tab(s) (DOLOPHINE) 10 mg ORAL DAILY AT 12 PM Jasmina Hazel 10 mg at 04/18/20 1256 - methadone 10 mg tab(s) (DOLOPHINE) 10 mg ORAL DAILY (10PM) Jasmina Hazel 10 mg at 04/18/202010 - LORazepam 0.5 mg tab(s) (ATIVAN) 0.5 mg ORAL AT BEDTIME [facility] Hazel 0.5 mg at 04/18/202009 - metoprolol succinate ER 50 mg tab(s) (TOPROL XL) 50 mg ORAL DAILY Nauhar Pinto 50 mg at 04/18/20 0854 - citalopram 20 mg tab(s) (CeleXA) 20 mg ORAL DAILY Nauhar Pinto 20 mg at 04/18/20 0854 - DULoxetine 30 mg cap(s) (CYMBALTA) 30 mg ORAL DAILY Nauhar Pinto 30 mg at 04/18/20 0854 - sertraline 100 mg tab(s) (ZOLOFT) 100 mg ORAL DAILY Nauhar Pinto 100 mg at 04/18/20 0854 - ferrous sulfate 325 mg tab(s) 325 mg ORAL TID w MEALS Nauhar Pinto 325 mg at 04/18/20 1555 - albuterol 2.5 mg /3 mL (0.083 %) 2.5 mg (PROVENTIL) 3 mL INHALATION q 6 H PRN [facility] - enoxaparin 40 mg injection (LOVENOX) 40 mg SUBCUTANEOUS DAILY [facility] 40 mg at 04/18/20 0854 - sodium chloride 0.9 % (flush) 3-5 mL (BD POSIFLUSH) 3-5 mL INTRAVENOUS q 12 H [facility] 5 mL at 04/18/202010 - ondansetron 4 mg tab(s) (ZOFRAN) 4 mg ORAL q 6 H PRN [facility] 4 mg at 04/14/20 0951 Or - ondansetron (PF) 4 mg injection (ZOFRAN) 4 mg INTRAVENOUS q 6 H PRN [facility] 4 mg at 04/17/20 1653 - acetaminophen 650 mg tab(s) (TYLENOL) 650 mg ORAL q 6 H PRN [facility] 650 mg at 04/18/20 0853 - atorvastatin 10 mg tab(s) (LIPITOR) 10 mg ORAL AT BEDTIME [facility] 10 mg at 04/18/202009 - docusate sodium (COLACE) 100 mg capsule, Take 100 mg by mouth as needed for Constipation., Disp: , Rfl: - ferrous sulfate 325 mg (65 mg iron) tablet, Take 325 mg by mouth three times daily with meals., Disp: , Rfl: - hydroCHLOROthiazide (HYDRODIURIL, ESIDRIX) 25 mg tablet, Take 25 mg by mouth once daily., Disp: , Rfl: - LISINOPRIL ORAL, Take 10 mg by mouth once daily., Disp: , Rfl: - metoprolol tartrate, short acting, (LOPRESSOR) 50 mg tablet, Take 50 mg by mouth twice daily., Disp: , Rfl: - LORazepam (ATIVAN) 0.5 mg, Take 0.5 mg by mouth twice daily., Disp: , Rfl: - zolpidem (AMBIEN) 5 mg tablet, Take 5 mg by mouth at bedtime as needed., Disp: , Rfl: - methadone (DOLOPHINE) 10 mg tablet, Take 10 mg by mouth every 4 hours as needed. 10 mg at 12:00pm , 22:00 pm and 15 mg in the AM, Disp: , Rfl: - Methenamine Hippurate (HIPREX) 1 gram tablet, Take 1 g by mouth twice daily with meals., Disp: , Rfl: - albuterol (PROVENTIL) 2.5 mg /3 mL (0.083 %) nebulizer solution, Use 3 mL via nebulizer every 4 hours., Disp: , Rfl: - diclofenac sodium (VOLTAREN) 1 % topical gel, Apply to affected area four times daily., Disp: , Rfl: - predniSONE (DELTASONE) 20 mg tablet, Take 40 mg by mouth once daily., Disp: , Rfl: - sertraline (ZOLOFT) 100 mg tablet, Take 100 mg by mouth once daily., Disp: , Rfl: - citalopram (CELEXA) 20 mg tablet, Take 20 mg by mouth once daily., Disp: , Rfl: - Gabapentin 300 mg Tab, Take 100 mg by mouth three times daily. , Disp: , Rfl: - meloxicam (MOBIC) 7.5 mg tablet, Take 7.5 mg by mouth once daily., Disp: , Rfl: - pravastatin 40 mg tablet, Take 40 mg by mouth once daily., Disp: , Rfl: - Multivitamins-Mineral s-Lutein (CENTRUM SILVER) Tab, Take 1 tablet by mouth once daily., Disp: , Rfl: - DULoxetine (CYMBALTA) 30 mg capsule, Take 1 a day for 2 weeks, then increase to 2 pills a day., Disp: 60 capsule, Rfl: 3 - LISINOPRIL-HYDROCHLOR OTHIAZIDE 10-12.5 mg ORAL per tablet, 1 tablet once daily., Disp: , Rfl: - metoprolol succinate ER (TOPROL XL) 50 mg 24 hr tablet, Take 50 mg by mouth once daily. , Disp: , Rfl: - oxyCODONE-acetaminoph en (PERCOCET) 5-325 mg ORAL tablet, Take 1 tablet by mouth every 4 hours as needed. , Disp: , Rfl: Social History Tobacco Use - Smoking status: Never Smoker - Smokeless tobacco: Never Used Substance Use Topics - Alcohol use: No - Drug use: No No family history on file. PAST SURGICAL HISTORY Procedure Laterality Date - LAMINECTOMY,CERVICAL Laminectomy, cervical fusion x2 - PAST SURGICAL HISTORY OF bladder suspenion x2 - REPAIR ROTATOR CUFF,ACUTE Rotator cuff repair bilat - TOTAL HIP REPLACEMENT Hip replacement, total - TOTAL KNEE REPLACEMENT Knee replacement, total - VAGINAL HYSTERECTOMY Hysterectomy, vaginal ROS: All of the following reviewed and negative except as noted below: Significant for HPI GENERAL: no fever, chills, sweats, weight loss, fatigue, generalized weakness HEENT: no headache, vision changes, eye discomfort, hearing change, ear discomfort, sinus pain, nasal discharge or congestion, oral lesions, soreness, dental problem NECK: no adenopathy, discomfort, change in ROM CHEST: no shortness of breath, dyspnea on exertion, wheezing, cough, sputum production or chest pain HEART: no chest pain, palpitations, syncope ABDOMEN: no nausea, vomiting, constipation, diarrhea, abdominal pain : no dysuria, urgency, frequency, history of stones, incontinence NEURO: no confusion or alteration in consciousness, slurred speech, seizure, focal weakness EXTREMITIES: no new pain, edema, change in ROM HEME: no new adenopathy, bruises, petechiae PSYCH: no depression, anxiety, agitation PAIN PSYCHIATRIC EXAM: GENERAL: alert, oriented to person, place JUDGMENT AND INSIGHT: Limited APPEARANCE: neatly groomed DEMEANOR: coooperative, not hostile, mistrustful, preoccupied, or demanding ACTIVITY: normal, not hyperactive or hypoactive, no tremors, tics EYE CONTACT: normal SPEECH: normal, rate, volume, articulation, coherence, spontaneity MOOD: normal, without overt sadness, grief, anxiety, appropriate to situation IDEATION: Deferred mEMORY: Impaired PHYSICAL EXAMINATION: GENERAL: well nourished and developed; pleasant mild confusion; no acute distress; alert and oriented x 2; limited judgement and insight HEENT: no evidence of trauma; cranial nerves intact; eyes clear EOMI; no hearing deficits apparent; nasal passages unremarkable; throat and mucous membranes clear NECK: supple without lymphadenopathy; no JVD; no thyromegaly CHEST: clear bilaterally to auscultation; normal chest movement; no rales or rhonchi HEART: regular rate and rhythm, normal S1 and S2, no murmurs, clicks, rubs, or gallops ABDOMEN: soft; nondistended; bowel sounds present; no hepatomegaly; no splenomegaly; no tenderness EXTREMITIES: no evidence of clubbing; no cyanosis; no deformity; no joint effusion; no edema NEURO: cranial nerves intact; no confusion; no tremor; sensorium normal; bilateral lower extremity weakness and foot drop SKIN: no rash; no skin breakdown; no decubitus lesions HEME: no bruising; no adenopathy PSYCH: no evidence of depression; no anxiety; no agitation; no apparent hallucinations BP (!) 118/48 Pulse 69 Temp 36.8 ?C (98.2 ?F) (Oral) Resp 18 Ht 152.4 cm (5') Wt 98.3 kg (216 lb 11.2 oz) SpO2 100% BMI 42.32 kg/m? BMI 42.32 kg/(m2) Date 04/16/20699 - 04/17/20 0659 Shift 9669-6155 0349-1379 8374-1459 24 Hour Total INTAKE PO 240 240 Shift Total 240 240 OUTPUT Shift Total Weight (kg) 96.9 96.9 96.9 96.9 Date 04/15/20699 - 04/16/2065804/16/20699 - 04/17/20 0659 Shift 0794-1961 2216-5923 6102-4561 24 Hour Total 9433-7062 8658-1282 9706-6060 24 Hour Total INTAKE PO 240 240 PO 240 240 Shift Total 240 240 OUTPUT Urine 1926 419 6672 Void (ml) 850 850 Urine Incontinence/Not Saved 1 x 1 x Output ( External Collection Device 04/13/205) 580 939 9412 # of BMs Stool Incontinence 2 x 2 x Shift Total 1247 576 0406 Weight (kg) 100.2 99.3 96.9 96.9 96.9 96.9 96.9 96.9 ABNORMAL/NEW FINDINGS: NONE RADIOLOGY/DIAGNOSTICS : LABORATORY: CBC: No results for input(s): WBC, RBC, HB, HCT, PLT, MCV, MCH, MPV, RDW in the last 24 hours. CMP: No results for input(s): NA, K, CHLOR, CO2, BUN, CREAT, GLUC, TPROT, CA, MG, ALBUMIN, TBILI, ALKPHOS, ALT, AST, ANION in the last 24 hours. Heme: No results for input(s): RETICP, ABSRETIC, LD, ANTONIETTA, FE, TIBC, TRANSFERSAT in the last 24 hours. ASSESSMENT ACTIVE PROBLEM LIST Fracture of Cervical Vertebra, C2 (Hcc) Cervical Spinal Stenosis Myelopathy (Hcc) S/P Cervical Spinal Fusion Shoulder Pain Osteoarthritis, Knee Neck pain Cervicalgia Uti (Urinary Tract Infection) PLAN: Patient with history of multiple prior spine surgeries as outlined above, wheelchair-bound with bilateral foot drop presents with destructive lesion of L1, T12 which is progressed compared to 2013 Poor functional baseline; no significant change in neurologic function IR guided biopsy pending. 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 and 10 mg at bedtime Oxycodone 5 mg every 4 hours PRN Senna S twice daily Alyson Thomas MD [facility] Surgical Tissue Examon 04-19 Surgical Tissue Exam Test performed at [place] [address] NAME: PATRICIA HAWLEY REQUESTING: MARIA EUGENIA QURESHI MD COPY TO: JASMINA OAKLEY; WOLF BERRY FINAL DIAGNOSIS: SOFT TISSUE, UPPER LUMBAR VERTEBRA, BIOPSY - MINUTE FRAGMENTS OF FIBRIN WITH A FEW ACUTE AND CHRONIC INFLAMMATORY CELLS AND SCANT CRUSHED BONE. THE SPECIMEN IS NONDIAGNOSTIC. SEE COMMENT. COMMENT: A minute fragment of polarizable material is present of uncertain significance. Dr. Dean Marcial also reviewed the case and agrees with the diagnosis. If clinical concerns persist, rebiopsy may be useful. OPERATIVE PROCEDURE: Bone biopsy CLINICAL INFORMATION: Bone abscess GROSS DESCRIPTION: Upper lumbar vertebra Received in formalin labeled upper lumbar vertebra bone biopsy are multiple irregular-shaped segments of cuellar-red soft tissue aggregating to 0.2 x 0.2 x 0.1 cm. The specimen is totally submitted in formalin in 1 cassette. MICKEY/cliff FLOWER M.D. PATHOLOGIST (Electronic signature on file) Signed out: 04/20/2020 14:55 PRINTED: 04/20/2020 Page 1 of 1 [facility] Comment on above: Performed By: #### B MP #### [place] [address] Basic Metabolic Panelon 04-02 Anion gap [Moles/Vol] 11 mmol/L Normal -18 [facility] Comment on above: Performed By: #### B MP #### [facility] [address] [place], [place] [address] Calcium [Mass/Vol] 9.1 mg/dL Normal 8.5-10.2 [facility] Comment on above: Performed By: #### B MP #### [facility] [address] [place], [place] [address] Chloride [Moles/Vol] 100 mmol/L Normal 97-105 [facility] Comment on above: Performed By: #### B MP #### [facility] [address] [place], [place] [address] CO2 Blood 29 mmol/L Normal 22-30 [facility] Comment on above: Performed By: #### B MP #### [facility] [address] [place], [place] [address] Creatinine [Mass/Vol] 1.05 mg/dL High 0.58-0.96 [facility] Comment on above: Performed By: #### B MP #### [facility] [address] [place], [place] [address] Glucose [Mass/Vol] 92 mg/dL Normal 74-99 [facility] Comment on above: Result Comment: The [place] [employer] (ADA) provides guidance for cutoff values for fasting glucose and random glucose. The ADA defines fasting as no caloric intake for at least 8 hours.Fasting plasma glucose results between 100 to 125 mg/dL indicate increased risk for diabetes (prediabetes). Fasting plasma glucose results greater than or equal to 126 mg/dL meet the criteria for diagnosis of diabetes. In the absence of unequivocal hyperglycemia, results should be confirmed by repeat testing. In a patient with classic symptoms of hyperglycemia or hyperglycemic crisis, random plasma glucose results greater than or equal to 200 mg/dL meet the criteria for diagnosis of diabetes. Reference: Standards of Medical Care in Diabetes 2016; [place] [employer]. Diabetes Care. 2016;39(Suppl 1). Performed By: #### B MP #### [facility] [address] [place], [place] [address] Potassium [Moles/Vol] 3.9 mmol/L Normal 3.7-5.1 [facility] Comment on above: Performed By: #### B MP #### [facility] [address] [place], [place] [address] Sodium [Moles/Vol] 140 mmol/L Normal 136-144 [facility] Comment on above: Performed By: #### B MP #### [facility] [address] [place] [address] Urea nitrogen [Mass/Vol] 26 mg/dL High 7-21 [facility] Comment on above: Performed By: #### B MP #### [facility] [address] [place] [address] CASE MANAGEMon 04-18-2020 CASE MANAGEM HNO ID: [id number] Author: María (Rn) KIRK Mccall Service: Care Management Author Type: Registered Nurse Type: Care Mgt Progress Note Filed: 04/18/2020 3:23 PM Note Text: CARE MANAGEMENT PROGRESS NOTE SERVICE DATE: 04/18/2020 SERVICE TIME: 11:08 AM LOS: 4 days Chart reviewed, awaiting biopsy in IR today, then possible surgery with neurosurgery. Discharge plan to return to the [facility] by . SIGNATURE: María Mccall RN PATIENT NAME: Patricia Hawley DATE: April 18, 2020 TIME: 11:08 AM PAGER/CONTACT #: [phone] [facility] CONSULT PROGon 04-18-2020 CONSULT PROG HNO ID: [id number] Author: Giovani Shin Service: Infectious Disease Author Type: Physician Type: Consult Progress Note Filed: 04/18/2020 4:32 PM Note Text: PROGRESS NOTE INFECTIOUS DISEASE BRIEF SUMMARY: 74F h/o spinal stenosis s/p T12-L5 decompressive bilateral laminectomy with foraminotomies from T12-L5 for decompression. Presented to [facility] on 04/12/20 for R flank pain found to have UTI + hydronephrosis, transferred to [facility] 04/14/20 because of worsening paresthesias of legs, MRI c/t/l showed T12-L1 OM vs discitis vs malignancy. ASSESSMENT: 1. Ecoli UTI + hydronephrosis - treated w ceftriaxone 5 days 2. Chronic T12-L1 vertebral body destruction, worsening Completed #1 treatment. Antibiotic free day today. Bone/disc biopsy tomorrow for histopath and culture Estimated Creatinine Clearance: 48.6 mL/min (A) (based on SCr of 1.05 mg/dL (H)). RECOMMENDATIONS: - completed ceftriaxone - IR guided disc biopsy pending, either tomorrow or later SUBJECTIVE: Interval Events: 04/15 better mentation today 04/18 no event over the weekend Medications: Current Facility-Administered Medications Medication Dose Route Frequency - metoprolol succinate ER 50 mg tab(s) (TOPROL XL) 50 mg ORAL DAILY - citalopram 20 mg tab(s) (CeleXA) 20 mg ORAL DAILY - DULoxetine 30 mg cap(s) (CYMBALTA) 30 mg ORAL DAILY - sertraline 100 mg tab(s) (ZOLOFT) 100 mg ORAL DAILY - ferrous sulfate 325 mg tab(s) 325 mg ORAL TID w MEALS - albuterol 2.5 mg /3 mL (0.083 %) 2.5 mg (PROVENTIL) 3 mL INHALATION q 6 H PRN - enoxaparin 40 mg injection (LOVENOX) 40 mg SUBCUTANEOUS DAILY - sodium chloride 0.9 % (flush) 3-5 mL (BD POSIFLUSH) 3-5 mL INTRAVENOUS q 12 H - ondansetron 4 mg tab(s) (ZOFRAN) 4 mg ORAL q 6 H PRN Or - ondansetron (PF) 4 mg injection (ZOFRAN) 4 mg INTRAVENOUS q 6 H PRN - acetaminophen 650 mg tab(s) (TYLENOL) 650 mg ORAL q 6 H PRN - atorvastatin 10 mg tab(s) (LIPITOR) 10 mg ORAL AT BEDTIME - hydrALAZINE 25 mg tab(s) (APRESOLINE) 25 mg ORAL q 8 H PRN - gabapentin 100 mg cap(s) (NEURONTIN) 100 mg ORAL q 8 H - methadone (DOLOPHINE) tab(s) 15 mg 15 mg ORAL DAILY (6 AM) - methadone 10 mg tab(s) (DOLOPHINE) 10 mg ORAL DAILY AT 12 PM - methadone 10 mg tab(s) (DOLOPHINE) 10 mg ORAL DAILY (10PM) - LORazepam 0.5 mg tab(s) (ATIVAN) 0.5 mg ORAL AT BEDTIME - oxyCODONE IR 5 mg tab(s) (ROXICODONE) 5 mg ORAL q 4 H PRN - senna-docusate 8.6-50 mg 1 tablet (SENNA-S) 1 tablet ORAL BID - lisinopril 5 mg tab(s) (ZESTRIL, PRINIVIL) 5 mg ORAL DAILY - Hydrochlorothiazide 25 mg 25 mg ORAL DAILY OBJECTIVE: Physical Exam: BP 156/78 Pulse 73 Temp 36.7 ?C (98.1 ?F) (Oral) Resp 18 Ht 152.4 cm (5') Wt 98.1 kg (216 lb 3.2 oz) SpO2 100% BMI 42.22 kg/m? GENERAL APPEARANCE: Comfortable SKIN: No rashes or lesions NEURO: Awake, alert, no involuntary motions Lab data: WBC (thou/cmm) Date Value 2020 6.82 04/14/2020 8.02 07/28/2013 5.1 07/26/2013 6.7 07/24/2013 7.1 Platelet Count (thou/cmm) Date Value 2020 324 04/14/2020 317 07/28/2013 288 07/26/2013 274 07/24/2013 290 Creatinine (mg/dL) Date Value 04/18/2020 1.05 04/17/2020 1.22 2020 0.99 04/14/2020 0.97 07/26/2013 1.01 AST (U/L) Date Value 2020 see below ALT (U/L) Date Value 2020 13 DATA: Diagnostic Tests Reviewed for Today's Visit: Most recent labs Most recent imaging Microbiology data: Positive Micro-30 Days No results found for the last 720 hours. Ecoli 04/13/20 Ampicillin $ >=32 R Ampicillin/Sulbactam $ >=32 R Cefazolin $ <=4 S Cefepime $ <=0.12 S Ceftriaxone $ <=0.25 S Ciprofloxacin $ >=4 R Ertapenim $$$ <=0.12 S ESBL NEG Gentamicin $ >=16 R Imipenem *NF <=0.25 S Levofloxacin $ >=8 R Nitrofurantoin $ <=16 S Piperacillin/Tazobact am $$ 8 S Tobramycin $ 8 I Trimethoprim/Sulfamet ho $ >=320 R Reference Range: S= Susceptible, I= Intermediate, R= Resistant MICS are expressed in micrograms per mL Giovani Shin MD Infectious Disease Res[facility] [place] Pager: [phone] [facility] PROGRESSon 04-18-2020 PROGRESS HNO ID: [id number] Author: Jasmina Oakley Service: Hospital Medicine Author Type: Physician Type: Progress Notes Filed: 04/19/2020 8:15 PM Note Text: DEPARTMENT OF HOSPITAL MEDICINE PROGRESS NOTE SERVICE DATE: 04/18/2020 SERVICE TIME: 9:00 PM Hospital Medicine/Primary Attending: Jasmina Oakley MD NIGHT AND WEEKEND COVERAGE: After 7pm please page [phone] CHIEF COMPLAINT: Back pain. SUBJECTIVE: Reports pain is not that bad resting. She does not allow her back will feel when she moves her no fever or chills. Strength same in legs. OBJECTIVE: PHYSICAL EXAM: BP 110/41 Pulse 74 Temp (Src) 99.5 (Axillary) Resp 19 Ht 5' 0 (1.52m) Wt 216 lb 11.2 oz (98.3kg) SpO2 97% BMI 42.32 kg/(m2). O2 Therapy: Nasal Cannula, Liters: 3 GENERAL: Alert, no distress, cooperative, SKIN: Skin color, texture, turgor normal. No rashes or lesions. OROPHARYNX: Lips, mucosa, and tongue normal. Teeth and gums normal. Oropharynx normal. LUNGS: Lungs clear to auscultation, Air entry good, Unlabored breathing. CARDIAC: Normal S1 and S2; no rubs, murmurs, or gallops ABDOMEN: Abdomen soft, non-tender, non-distended, BS normal EXTREMITIES: Normal, no deformities, edema, clubbing or skin discoloration. BACK: No tenderness. NEURO: AA coherent.??Strength-? weakness in bilateral dorsiflexion and plantar flexors?.???Reflex decrease in bilateral patella? MEDICATIONS: Current Facility-Administered Medications Medication Dose Route Frequency - metoprolol succinate ER 50 mg tab(s) (TOPROL XL) 50 mg ORAL DAILY - citalopram 20 mg tab(s) (CeleXA) 20 mg ORAL DAILY - DULoxetine 30 mg cap(s) (CYMBALTA) 30 mg ORAL DAILY - sertraline 100 mg tab(s) (ZOLOFT) 100 mg ORAL DAILY - ferrous sulfate 325 mg tab(s) 325 mg ORAL TID w MEALS - albuterol 2.5 mg /3 mL (0.083 %) 2.5 mg (PROVENTIL) 3 mL INHALATION q 6 H PRN - enoxaparin 40 mg injection (LOVENOX) 40 mg SUBCUTANEOUS DAILY - sodium chloride 0.9 % (flush) 3-5 mL (BD POSIFLUSH) 3-5 mL INTRAVENOUS q 12 H - ondansetron 4 mg tab(s) (ZOFRAN) 4 mg ORAL q 6 H PRN Or - ondansetron (PF) 4 mg injection (ZOFRAN) 4 mg INTRAVENOUS q 6 H PRN - acetaminophen 650 mg tab(s) (TYLENOL) 650 mg ORAL q 6 H PRN - atorvastatin 10 mg tab(s) (LIPITOR) 10 mg ORAL AT BEDTIME - hydrALAZINE 25 mg tab(s) (APRESOLINE) 25 mg ORAL q 8 H PRN - gabapentin 100 mg cap(s) (NEURONTIN) 100 mg ORAL q 8 H - methadone (DOLOPHINE) tab(s) 15 mg 15 mg ORAL DAILY (6 AM) - methadone 10 mg tab(s) (DOLOPHINE) 10 mg ORAL DAILY AT 12 PM - methadone 10 mg tab(s) (DOLOPHINE) 10 mg ORAL DAILY (10PM) - LORazepam 0.5 mg tab(s) (ATIVAN) 0.5 mg ORAL AT BEDTIME - oxyCODONE IR 5 mg tab(s) (ROXICODONE) 5 mg ORAL q 4 H PRN - senna-docusate 8.6-50 mg 1 tablet (SENNA-S) 1 tablet ORAL BID - lisinopril 5 mg tab(s) (ZESTRIL, PRINIVIL) 5 mg ORAL DAILY - Hydrochlorothiazide 25 mg 25 mg ORAL DAILY DATA: Diagnostic tests reviewed for today's visit: CBC, Coags, BMP, Mg, Phos Recent Labs 04/18/20 0645 04/17/20 0553 NA 140 139 K 3.9 4.2 CHLOR 100 97 CO2 29 31* BUN 26* 28* CREAT 1.05* 1.22* GLUC 92 78 CA 9.1 9.3 Liver Function, Amylase, AND Lipase Cardiac Enzymes Heme: No results for input(s): RETICP, ABSRETIC, LD, ANTONIETTA, FE, TIBC, TRANSFERSAT in the last 24 hours. No results found for: UALBCR Assessment/Plan Patient Active Hospital Problem List: UTI (urinary tract infection) (04/14/2020) ASSESSMENT: Mrs Hawley?transfer most of hospital for the concern of vertebral discitis/osteomyeliti s. ? She has: ? 1.??Chronic destruction at T12-L1 and T11-T12 level: Suspect infectious process Iess likely a malignant process. S/p?MRI cervical, thoracic, lumbar spine at OSH-?results reviewed. WBC normal. ?CRP elevated at 27 Evaluated by ID and neurosurgery. Plan is to do IR guided biopsy on Saturday. ?Neurosurgery is considering surgical reconstruction of anterior column some point in time pending biopsy result. ? 2. ?UTI pyelonephritis: E. coli. Urinalysis was positive for pyuria at?OSH. On ceftriaxone ? 3. ?History of lumbar and cervical spine surgery: Has hardware/screws in cervical spine ? 4. ?Debility at baseline: Uses a wheelchair all the time baseline. Resides in a NH ? ? Chronic medical conditions 1. ?Hypertension:?On lisinopril and HCTZ. Blood Pressure fluctuating 2. ?Anemia 3. ?Chronic pain syndrome:?On methadone and gabapentin.. ?Restarted today pain management consulted.? 4. ?COPD 5. ?Chronic hypoxic respiratory failure 2 L nasal cannula 6. ?Hyperlipidemia 7. ?ARCHANA. 8. ?Anxiety:?On citalopram and Cymbalta. ?Also takes lorazepam as needed especially at night 8.??No longer taking prednisone PLAN: Continue current treatment. IR giuded biopsy tomorrow VTE Prophylaxis: Lovenox 40mg Sub Q Daily Disposition: Extended Care Facility Plan of care discussed with: Patient SIGNATURE: Jasmina Oakley MD PATIENT NAME: Patricia Hawley DATE: April 18, 2020 TIME: 9:00 PM PAGER/CONTACT #: [phone] [facility] PROGRESS HNO ID: [id number] Author: Ghislaine (David) Ceci Service: Neurosurgery Author Type: Nurse Practitioner Type: Progress Notes Filed: 04/18/2020 10:26 AM Note Text: Neurosurgery Progress Note SERVICE DATE: 04/18/2020 SUBJECTIVE: Pt resting in bed. Awake and alert. C/O back pain and leg weakness. Feels that pain is controlled with current medication. Denies N/V. Thinks she may have to have a BM today OBJECTIVE: Vitals: Temp (24hrs), Av.7 ?C (98.1 ?F), Min:36.6 ?C (97.9 ?F), Max:36.8 ?C (98.2 ?F) BP 156/78 Pulse 73 Temp 36.7 ?C (98.1 ?F) (Oral) Resp 18 Ht 152.4 cm (5') Wt 98.1 kg (216 lb 3.2 oz) SpO2 100% BMI 42.22 kg/m? O2 Therapy: Nasal Cannula IANDO: Date 04/17/20699 - 04/18/20 0604/18/20699 - 04/19/20 0659 Shift 9704-5318 1673-2835 6111-3317 24 Hour Total 8238-4223 9668-7605 6001-4313 24 Hour Total INTAKE Shift Total OUTPUT Urine 719 419 2761 Void (ml) 319 865 1303 Urine Incontinence/Not Saved 1 x 1 x Urine Not Saved. 1 x 1 x # of BMs Stool Incontinence 1 x 1 x 2 x Number of BMs 1 x 1 x 1 x 3 x 1 x 1 x Shift Total 800 936 0246 Weight (kg) 97.1 98.1 98.1 98.1 98.1 98.1 98.1 98.1 MEDICATIONS Current Facility-Administered Medications Medication Dose Route Frequency - Hydrochlorothiazide 25 mg 25 mg ORAL DAILY - lisinopril 5 mg tab(s) (ZESTRIL, PRINIVIL) 5 mg ORAL DAILY - oxyCODONE IR 5 mg tab(s) (ROXICODONE) 5 mg ORAL q 4 H PRN - senna-docusate 8.6-50 mg 1 tablet (SENNA-S) 1 tablet ORAL BID - hydrALAZINE 25 mg tab(s) (APRESOLINE) 25 mg ORAL q 8 H PRN - gabapentin 100 mg cap(s) (NEURONTIN) 100 mg ORAL q 8 H - methadone (DOLOPHINE) tab(s) 15 mg 15 mg ORAL DAILY (6 AM) - methadone 10 mg tab(s) (DOLOPHINE) 10 mg ORAL DAILY AT 12 PM - methadone 10 mg tab(s) (DOLOPHINE) 10 mg ORAL DAILY (10PM) - LORazepam 0.5 mg tab(s) (ATIVAN) 0.5 mg ORAL AT BEDTIME - metoprolol succinate ER 50 mg tab(s) (TOPROL XL) 50 mg ORAL DAILY - citalopram 20 mg tab(s) (CeleXA) 20 mg ORAL DAILY - DULoxetine 30 mg cap(s) (CYMBALTA) 30 mg ORAL DAILY - sertraline 100 mg tab(s) (ZOLOFT) 100 mg ORAL DAILY - ferrous sulfate 325 mg tab(s) 325 mg ORAL TID w MEALS - albuterol 2.5 mg /3 mL (0.083 %) 2.5 mg (PROVENTIL) 3 mL INHALATION q 6 H PRN - enoxaparin 40 mg injection (LOVENOX) 40 mg SUBCUTANEOUS DAILY - sodium chloride 0.9 % (flush) 3-5 mL (BD POSIFLUSH) 3-5 mL INTRAVENOUS q 12 H - ondansetron 4 mg tab(s) (ZOFRAN) 4 mg ORAL q 6 H PRN Or - ondansetron (PF) 4 mg injection (ZOFRAN) 4 mg INTRAVENOUS q 6 H PRN - acetaminophen 650 mg tab(s) (TYLENOL) 650 mg ORAL q 6 H PRN - atorvastatin 10 mg tab(s) (LIPITOR) 10 mg ORAL AT BEDTIME Labs: Recent Labs 04/18/20 0645 04/17/20 0553 NA 140 139 K 3.9 4.2 CHLOR 100 97 CO2 29 31* BUN 26* 28* CREAT 1.05* 1.22* GLUC 92 78 ANION 11 11 CA 9.1 9.3 Exam: GENERAL: No distress, Alert and Oriented x 3, confused at times NEURO: CN II-XII intact, PERRL, MAEx4, follows commands Strength RUE D 4/5 B 4/5 T 4/5 Global Sales Manager 4/5 LUE D 4/5 B 4/5 T 4/5 Global Sales Manager 4/5 RLE HF 2/5 KE 3/5 KF 3/5 DF 0/5 PF 0/5 LLE HF 2/5 KE 3/5 KF 3/5 DF 0/5 PF 0/5 Sensation decreased to feet bilaterally Speech clear, fluent HEENT: normocephalic, atraumatic LUNGS: Unlabored breathing CARDIAC: Regular rate ABDOMEN: Soft, non-tender EXTREMITIES: ZUNIGA, No deformities, +1 edema to BLE SKIN: No rashes or lesions ASSESSMENT AND PLAN: Active Hospital Problems Diagnosis Date Noted - UTI (urinary tract infection) 04/14/2020 75 yo female with advanced OM --destructive T12 -L1 lesion Neuro stable as above Awaiting biopsy per IR --likely tomorrow Will likely require surgical reconstruction of anterior column. Will determine details of surgical intervention once results of biopsy are available Cont pain mnmt Med mnmt SIGNATURE: Ghislaine Ornelas APRN.CNP PATIENT NAME: Patricia Hawley DATE: April 18, 2020 TIME: 10:15 AM [facility] PROGRESS HNO ID: [id number] Author: Harpreet Wade Service: Pain Management Author Type: Physician Type: Progress Notes Filed: 04/18/2020 12:51 PM Note Text: Name: PATRICIA HAWLEY Age: [age] year old PAIN MANAGEMENT: Acute on chronic back pain, T11-12, T12-L1 osteomyelitis/disciti s; multilevel degenerative disc disease Pain Description: Intermittent pain low back; on her right side. Worse with movement 24H Comfort Meds: Tylenol 650 mg x0 Cymbalta 30 mg daily Gabapentin 100 mg x 3 Methadone 15 mg a.m., 10 mg p.m. and 10 mg at bedtime Oxycodone 5 mg x 1 Lorazepam 0.5 mg at at bedtime Prednisone 40 mg x 1 Interval HPI: Remains afebrile, vital signs stable, on 3 L by nasal cannula, positive bowel movement ?3, regular diet. Good pain control. T12-L1 lesion biopsy pending Subjective HPI: 75-year-old female was transferred from [facility] after diagnostic work-up demonstrated T12-L1 discitis/osteomyeliti s and possible malignant infiltration. Patient initially presented there with right-sided flank and back pain. She was treated for UTI and found to have moderate hydronephrosis. 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 Pain regimen confirmed to [facility] and includes gabapentin 100 mg 3 times daily, Ativan 0.5 mg twice daily as needed, oxycodone 5 mg every 4 hours PRN methadone 15 mg a.m., 10 mg p.m. and 10 mg at at bedtime. She has a history of chronic back pain as well as diffuse osteoarthritis status post right SINAN and right TKA. She states she last walked independently a while ago. Per chart, patient had prior T12/L5 laminectomy, L2-L5 fusion, status post occiput to C6 fusion.she has chronic bilateral foot drop. She is wheelchair-bound. OARRS Review: Negative. Does not reflect [facility] pain regimen as documented above Current Facility-Administered Medications Medication Dose Route Frequency Provider Last Rate Last Dose - lisinopril 5 mg tab(s) (ZESTRIL, PRINIVIL) 5 mg ORAL DAILY Jasmina Hazel 5 mg at 04/17/20 0839 - Hydrochlorothiazide 12.5 mg 12.5 mg ORAL DAILY Jasmina Hazel 12.5 mg at 04/17/20 0836 - oxyCODONE IR 5 mg tab(s) (ROXICODONE) 5 mg ORAL q 4 H PRN Alyson K Scantling 5 mg at 04/17/20 1653 - senna-docusate 8.6-50 mg 1 tablet (SENNA-S) 1 tablet ORAL BID Alyson K Scantling 1 tablet at 04/17/202120 - hydrALAZINE 25 mg tab(s) (APRESOLINE) 25 mg ORAL q 8 H PRN Jasmina Hazel 25 mg at 04/15/20 1110 - gabapentin 100 mg cap(s) (NEURONTIN) 100 mg ORAL q 8 H Jasmina Hazel 100 mg at 04/17/202120 - methadone (DOLOPHINE) tab(s) 15 mg 15 mg ORAL DAILY (6 AM) Jasmina Hazel 15 mg at 04/17/20 0539 - methadone 10 mg tab(s) (DOLOPHINE) 10 mg ORAL DAILY AT 12 PM Jasmina Hazel 10 mg at 04/17/20 1128 - methadone 10 mg tab(s) (DOLOPHINE) 10 mg ORAL DAILY (10PM) Jasmina Hazel 10 mg at 04/17/202120 - LORazepam 0.5 mg tab(s) (ATIVAN) 0.5 mg ORAL AT BEDTIME Jasmina Hazel 0.5 mg at 04/17/202120 - metoprolol succinate ER 50 mg tab(s) (TOPROL XL) 50 mg ORAL DAILY Naar Pinto 50 mg at 04/16/20836 - citalopram 20 mg tab(s) (CeleXA) 20 mg ORAL DAILY Nauhar Pinto 20 mg at 04/17/20 0836 - DULoxetine 30 mg cap(s) (CYMBALTA) 30 mg ORAL DAILY Naar Pinto 30 mg at 04/17/20836 - sertraline 100 mg tab(s) (ZOLOFT) 100 mg ORAL DAILY Naar Pinto 100 mg at 04/17/20 08 - ferrous sulfate 325 mg tab(s) 325 mg ORAL [facility] w [facility] at 04/17/20 1510 - albuterol 2.5 mg /3 mL (0.083 %) 2.5 mg (PROVENTIL) 3 mL INHALATION q 6 H PRN [facility] - enoxaparin 40 mg injection (LOVENOX) 40 mg SUBCUTANEOUS DAILY [facility] at 04/17/20836 - sodium chloride 0.9 % (flush) 3-5 mL (BD POSIFLUSH) 3-5 mL INTRAVENOUS q 12 H [facility] [facility] 5 mL at 04/17/202121 - ondansetron 4 mg tab(s) (ZOFRAN) 4 mg ORAL q 6 H PRN Naar Pinto 4 mg at 04/14/20 0951 Or - ondansetron (PF) 4 mg injection (ZOFRAN) 4 mg INTRAVENOUS q 6 H [facility] at 04/17/20 1653 - acetaminophen 650 mg tab(s) (TYLENOL) 650 mg ORAL q 6 H [facility]N [facility] mg at 04/16/20 0024 - atorvastatin 10 mg tab(s) (LIPITOR) 10 mg ORAL AT BEDTIME [facility] at 04/17/202120 - docusate sodium (COLACE) 100 mg capsule, Take 100 mg by mouth as needed for Constipation., Disp: , Rfl: - ferrous sulfate 325 mg (65 mg iron) tablet, Take 325 mg by mouth three times daily with meals., Disp: , Rfl: - hydroCHLOROthiazide (HYDRODIURIL, ESIDRIX) 25 mg tablet, Take 25 mg by mouth once daily., Disp: , Rfl: - LISINOPRIL ORAL, Take 10 mg by mouth once daily., Disp: , Rfl: - metoprolol tartrate, short acting, (LOPRESSOR) 50 mg tablet, Take 50 mg by mouth twice daily., Disp: , Rfl: - LORazepam (ATIVAN) 0.5 mg, Take 0.5 mg by mouth twice daily., Disp: , Rfl: - zolpidem (AMBIEN) 5 mg tablet, Take 5 mg by mouth at bedtime as needed., Disp: , Rfl: - methadone (DOLOPHINE) 10 mg tablet, Take 10 mg by mouth every 4 hours as needed. 10 mg at 12:00pm , 22:00 pm and 15 mg in the AM, Disp: , Rfl: - Methenamine Hippurate (HIPREX) 1 gram tablet, Take 1 g by mouth twice daily with meals., Disp: , Rfl: - albuterol (PROVENTIL) 2.5 mg /3 mL (0.083 %) nebulizer solution, Use 3 mL via nebulizer every 4 hours., Disp: , Rfl: - diclofenac sodium (VOLTAREN) 1 % topical gel, Apply to affected area four times daily., Disp: , Rfl: - predniSONE (DELTASONE) 20 mg tablet, Take 40 mg by mouth once daily., Disp: , Rfl: - sertraline (ZOLOFT) 100 mg tablet, Take 100 mg by mouth once daily., Disp: , Rfl: - citalopram (CELEXA) 20 mg tablet, Take 20 mg by mouth once daily., Disp: , Rfl: - Gabapentin 300 mg Tab, Take 100 mg by mouth three times daily. , Disp: , Rfl: - meloxicam (MOBIC) 7.5 mg tablet, Take 7.5 mg by mouth once daily., Disp: , Rfl: - pravastatin 40 mg tablet, Take 40 mg by mouth once daily., Disp: , Rfl: - Multivitamins-Mineral s-Lutein (CENTRUM SILVER) Tab, Take 1 tablet by mouth once daily., Disp: , Rfl: - DULoxetine (CYMBALTA) 30 mg capsule, Take 1 a day for 2 weeks, then increase to 2 pills a day., Disp: 60 capsule, Rfl: 3 - LISINOPRIL-HYDROCHLOR OTHIAZIDE 10-12.5 mg ORAL per tablet, 1 tablet once daily., Disp: , Rfl: - metoprolol succinate ER (TOPROL XL) 50 mg 24 hr tablet, Take 50 mg by mouth once daily. , Disp: , Rfl: - oxyCODONE-acetaminoph en (PERCOCET) 5-325 mg ORAL tablet, Take 1 tablet by mouth every 4 hours as needed. , Disp: , Rfl: Social History Tobacco Use - Smoking status: Never Smoker - Smokeless tobacco: Never Used Substance Use Topics - Alcohol use: No - Drug use: No No family history on file. PAST SURGICAL HISTORY Procedure Laterality Date - LAMINECTOMY,CERVICAL Laminectomy, cervical fusion x2 - PAST SURGICAL HISTORY OF bladder suspenion x2 - REPAIR ROTATOR CUFF,ACUTE Rotator cuff repair bilat - TOTAL HIP REPLACEMENT Hip replacement, total - TOTAL KNEE REPLACEMENT Knee replacement, total - VAGINAL HYSTERECTOMY Hysterectomy, vaginal ROS: All of the following reviewed and negative except as noted below: Significant for HPI GENERAL: no fever, chills, sweats, weight loss, fatigue, generalized weakness HEENT: no headache, vision changes, eye discomfort, hearing change, ear discomfort, sinus pain, nasal discharge or congestion, oral lesions, soreness, dental problem NECK: no adenopathy, discomfort, change in ROM CHEST: no shortness of breath, dyspnea on exertion, wheezing, cough, sputum production or chest pain HEART: no chest pain, palpitations, syncope ABDOMEN: no nausea, vomiting, constipation, diarrhea, abdominal pain : no dysuria, urgency, frequency, history of stones, incontinence NEURO: no confusion or alteration in consciousness, slurred speech, seizure, focal weakness EXTREMITIES: no new pain, edema, change in ROM HEME: no new adenopathy, bruises, petechiae PSYCH: no depression, anxiety, agitation PAIN PSYCHIATRIC EXAM: GENERAL: alert, oriented to person, place JUDGMENT AND INSIGHT: Limited APPEARANCE: neatly groomed DEMEANOR: coooperative, not hostile, mistrustful, preoccupied, or demanding ACTIVITY: normal, not hyperactive or hypoactive, no tremors, tics EYE CONTACT: normal SPEECH: normal, rate, volume, articulation, coherence, spontaneity MOOD: normal, without overt sadness, grief, anxiety, appropriate to situation IDEATION: Deferred mEMORY: Impaired PHYSICAL EXAMINATION: GENERAL: well nourished and developed; pleasant mild confusion; no acute distress; alert and oriented x 2; limited judgement and insight HEENT: no evidence of trauma; cranial nerves intact; eyes clear EOMI; no hearing deficits apparent; nasal passages unremarkable; throat and mucous membranes clear NECK: supple without lymphadenopathy; no JVD; no thyromegaly CHEST: clear bilaterally to auscultation; normal chest movement; no rales or rhonchi HEART: regular rate and rhythm, normal S1 and S2, no murmurs, clicks, rubs, or gallops ABDOMEN: soft; nondistended; bowel sounds present; no hepatomegaly; no splenomegaly; no tenderness EXTREMITIES: no evidence of clubbing; no cyanosis; no deformity; no joint effusion; no edema NEURO: cranial nerves intact; no confusion; no tremor; sensorium normal; bilateral lower extremity weakness and foot drop SKIN: no rash; no skin breakdown; no decubitus lesions HEME: no bruising; no adenopathy PSYCH: no evidence of depression; no anxiety; no agitation; no apparent hallucinations BP 133/52 Pulse 71 Temp 36.6 ?C (97.9 ?F) (Oral) Resp 18 Ht 152.4 cm (5') Wt 98.1 kg (216 lb 3.2 oz) SpO2 100% BMI 42.22 kg/m? BMI 42.22 kg/(m2) Date 04/16/20699 - 04/17/20 0659 Shift 3150-9682 6895-9175 0930-1731 24 Hour Total INTAKE PO 240 240 Shift Total 240 240 OUTPUT Shift Total Weight (kg) 96.9 96.9 96.9 96.9 Date 04/15/20699 - 04/16/2065804/16/20699 - 04/17/20 0659 Shift 6758-1879 0006-2053 4850-4864 24 Hour Total 4725-5677 4385-7202 0690-7847 24 Hour Total INTAKE PO 240 240 PO 240 240 Shift Total 240 240 OUTPUT Urine 2017 276 1842 Void (ml) 850 850 Urine Incontinence/Not Saved 1 x 1 x Output ( External Collection Device 04/13/205) 828 046 2648 # of BMs Stool Incontinence 2 x 2 x Shift Total 4706 149 5879 Weight (kg) 100.2 99.3 96.9 96.9 96.9 96.9 96.9 96.9 ABNORMAL/NEW FINDINGS: NONE RADIOLOGY/DIAGNOSTICS : LABORATORY: CBC: No results for input(s): WBC, RBC, HB, HCT, PLT, MCV, MCH, MPV, RDW in the last 24 hours. CMP: Recent Labs 04/17/20 0553 NA 139 K 4.2 CHLOR 97 CO2 31* BUN 28* CREAT 1.22* GLUC 78 CA 9.3 ANION 11 Heme: No results for input(s): RETICP, ABSRETIC, LD, ANTONIETTA, FE, TIBC, TRANSFERSAT in the last 24 hours. ASSESSMENT ACTIVE PROBLEM LIST Fracture of Cervical Vertebra, C2 (Hcc) Cervical Spinal Stenosis Myelopathy (Hcc) S/P Cervical Spinal Fusion Shoulder Pain Osteoarthritis, Knee Neck pain Cervicalgia Uti (Urinary Tract Infection) PLAN: Patient with history of multiple prior spine surgeries as outlined above, wheelchair-bound with bilateral foot drop presents with destructive lesion of L1, T12 which is progressed compared to 2013 Poor functional baseline; no significant change in neurologic function Appreciate neurosurgery input. IR guided biopsy pending- either Sat or . 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 and 10 mg at bedtime Oxycodone 5 mg every 4 hours PRN Senna S twice daily Harpreet Wade M.D. [facility] THERAPY NTon 04-18-2020 THERAPY NT HNO ID: [id number] Author: Noa Torres/Alexsandra Mendoza Service: ? Author Type: Occupational Therapist Type: Therapy (PT/OT/Speech/Resp) Filed: 04/18/2020 4:11 PM Note Text: Occupational Therapy Evaluation SERVICE DATE: 04/18/2020 SERVICE TIME: 1544 to 1600 ROOM: [id number] Recommended Discharge Disposition: Subacute/SNF Recommended Discharge Disposition Comments: Recommend patient return to prior setting with initiation of therapy services to maximize independence with basic self-care tasks and functional mobility. Justification For Post Acute Needs: Anticipate that patient will require daily (5x/wk) skilled therapy in a post-acute facility setting at the time of acute hospital discharge;Motivated;W illing to participate OT Recommendations to Nursing: Encourage patient participation with in-bed ADL?s;Not appropriate for out of bed activity at this time OT 6 Clicks Score: 12 Precautions/Activity Restrictions: Fall Risk;Lines/Tubes/Drai ns Isolation Type: None ASSESSMENT: Patient admitted from outside hospital with right sided flank/back pain, found to have UTI + hydronephrosis and MRI demonstrated T12-L1 osteomyelitis vs discitis vs malignancy. Patient presents with deficits in functional strength, balance, endurance and mobility all limiting ADL and functional transfer performance. Patient would benefit from participation with OT during acute stay to maximize upper body strength and endurance, receive education on energy conservation/work simplification/body mechanics/positioning as well as available adaptive equipment, compensatory strategies for use during basic self-care tasks to maximize independence with ADLs and decrease overall burden of care at discharge. Patient Disposition at Start of Session: Supine in Bed;Call [facility] in Reach Patient Disposition at End of Session: Supine in Bed;Call [facility] in Reach;Nursing Personnel Present Tolerance Limited By Fatigue Occupational Therapy Problem List: Pain;Safety Deficits;Impaired Self Care;Decreased Activity Tolerance;Decreased Strength;Functional Mobility Impairment;Balance Impaired Patient /Caregiver Goals: Care For Self Goals for Plan of Care: Able to perform HEP with: Verbal Cues Only(to maximize upper body strength for improved ADLs) Feeding with: Modified Independent Grooming with: Set Up(seated ) Upper Body Bathing with: Stand By Assistance(seated) Upper Body Dressing with: Stand By Assistance(seated edge of bed) Tolerate (minutes of functional activity): 15(ADL participation seated edge of bed ) Functional Activity with: Supervision Additional Goal 1: Complete supine <> sit with mod A x 1 for participation in ADLs seated edge of bed. Additional Goal 2: Demonstrate good safety awareness and insight into deficits 100% ADL performance. Rehab Potential: Good PLAN: Treatment Frequency (times per week): 3(1-3) Current admission Treatment Interventions: Education;Self Care / Home Management;Energy Conservation Training;Strengthenin g;Functional Mobility Training Plan of Care developed with: Patient TREATMENT INTERVENTIONS: Therapy Diagnosis: Reduced mobility-other;Decrea sed activities of daily living (ADL);Muscle Weakness (generalized);Unstead iness on feet;General symptoms and signs-other Interventions Provided: Evaluation $ Evaluation-Moderate (20454) Billed Units: 1 unit OT Evaluation Moderate Complexity: Occupational Profile - Extended review of patient's medical record completed including patient's physical, cognitive, and psycho-social history (please see current hospital course of evaluation). Occupational Performance - Pt presents with deficits in feeding, grooming, UE bathing/dressing, LE bathing/dressing, functional transfers, functional mobility, decreased safety awareness, decreased insight into deficits Complexity in Clinical Decision Making - The extent of clinical reasoning was moderate, several treatment options present for the patient, need for modification during the evaluation was minimal/moderate, comorbidities affecting occupational performance: COPD, HTN, HLD, depression, anemia, spinal stenosis, arthritis Total Treatment Time (minutes): 16 SUBJECTIVE: Current Hospital Course: Chart reviewed; 74 year old female transferred from [facility] with complaints of R sided flank/back pain. Patient was found to have UTI with moderate hydronephrosis but complained of worsening paresthesias in legs. MRI showed T12-L1 osteomyelitis vs discitis vs malinancy. Biopsy done, results pending. Neurosurgery following. Reason for Occupational Therapy Consult: Progressive mobility protocol Relevant Past Medical History: COPD, HTN, HLD, depression, anemia, spinal stenosis, arthritis Patient Report: I need help with everything where I live. I get dressed in bed or sitting on the edge of bed. I am usually able to do a little bit more for myself. Pleasant and willing to participate. Pain: 7/10 back Home Environment Patient Lives With: Spouse;Facility Care([facility]) Assistance Available: 24 Hour Entry To Home: No Stairs Number Of Stairs To Bed/Bath: 0 Tub/Shower Type: walk in/roll in Laundry: staff completes Equipment Owned: (electric w/c; slide board or sling lift) Prior Functional Level: Required Assistance;Within Functional Limits Assistance Required With: Transfers;Self Care;Cleaning;Laundry ;Meals;Stairs;Transpo rtation;Wheelchair Mobility;Shopping Prior Functional Level Comments: Patient reports she required assist with all ADLs, total assist for IADls, used power wheelchair and transferred via jareth or slideboard. OBJECTIVE: Cognition/Communicati on Deficits Orientation Deficits: Not oriented to Place(States she is at [facility]) Responsiveness: Alert;Awake Follows Commands: 2-step Commands;Cueing Needed Cueing to Follow Commands: Minimum Memory Deficits: Short Term Executive Function Deficits: Problem Solving;Safety Awareness;Judgement;I nsight to Deficits Judgement Deficit: Minimal impairment Insight to Deficits: Minimal impairment Problem Solving Deficit: Minimal impairment Safety Awareness Deficit: Minimal impairment CURRENT FUNCTIONAL STATUS: Current Activities of Daily Living Assist Level Feeding Set Up Grooming Minimal Assistance Bathing Upper Body Maximal Assistance Bathing Lower Body Maximal Assistance Dressing Upper Body Moderate Assistance Dressing Lower Body Total Assistance Toileting Total Assistance Functional Mobility Assist Level Rolling Moderate Assistance Supine to Sit Sit to Supine Scooting Sit to Stand Stand to Sit Bed to Chair Toilet/Commode Functional Mobility ROM: WFL Strength: 4-/5 bilaterally Functional Mobility Comments: Did not progress to edge of bed due to safety concerns Balance: (Unable to assess sitting balance due to safety concerns) Please see discipline specific clinical documentation flowsheet for complete details for this therapy evaluation/treatment. SIGNATURE: MADDIE Clay/L PATIENT NAME: Patricia Hawley DATE: April 18, 2020 TIME: 4:06 PM [facility] Basic Metabolic Panelon 04-02 Anion gap [Moles/Vol] 11 mmol/L Normal 9-18 [facility] Comment on above: Performed By: #### B MP #### [place] [address] Calcium [Mass/Vol] 9.3 mg/dL Normal 8.5-10.2 [facility] Comment on above: Performed By: #### B MP #### [place] [address] Chloride [Moles/Vol] 97 mmol/L Normal 97-105 [facility] Comment on above: Performed By: #### B MP #### [place] [address] CO2 Blood 31 mmol/L High 22-30 [facility] Comment on above: Performed By: #### B MP #### [place] [address] Creatinine [Mass/Vol] 1.22 mg/dL High 0.58-0.96 [facility] Comment on above: Performed By: #### B MP #### [address] [place] [address] Glucose [Mass/Vol] 78 mg/dL Normal 74-99 [facility] Comment on above: Result Comment: The [place] [employer] (ADA) provides guidance for cutoff values for fasting glucose and random glucose. The ADA defines fasting as no caloric intake for at least 8 hours.Fasting plasma glucose results between 100 to 125 mg/dL indicate increased risk for diabetes (prediabetes). Fasting plasma glucose results greater than or equal to 126 mg/dL meet the criteria for diagnosis of diabetes. In the absence of unequivocal hyperglycemia, results should be confirmed by repeat testing. In a patient with classic symptoms of hyperglycemia or hyperglycemic crisis, random plasma glucose results greater than or equal to 200 mg/dL meet the criteria for diagnosis of diabetes. Reference: Standards of Medical Care in Diabetes 2016; [place] [employer]. Diabetes Care. 2016;39(Suppl 1). Performed By: #### B MP #### [address] [address] Potassium [Moles/Vol] 4.2 mmol/L Normal 3.7-5.1 [facility] Comment on above: Performed By: #### B MP #### [address] [address] Sodium [Moles/Vol] 139 mmol/L Normal 136-144 [facility] Comment on above: Performed By: #### B MP #### [address] [address] Urea nitrogen [Mass/Vol] 28 mg/dL High 7-21 [facility] Comment on above: Performed By: #### B MP #### [address] [address] ECG COMPLETEon 04-17-2020 ECG COMPLETE NAME : PATRICIA HAWLEY PID : [id number] : 1945 Gender : Female Race : ORD : [id number] Procedure Date : Apr 17 2020 18:19:46 Edit Date : Apr 18 2020 15:47:50 Diagnosis:NORMAL SINUS RHYTHM MODERATE VOLTAGE CRITERIA FOR LVH, MAY BE NORMAL VARIANT BORDERLINE ECG WHEN COMPARED WITH ECG OF 07-MAY-2013 21:10, NO SIGNIFICANT CHANGE WAS FOUND Confirmed by MD SCOOTER, GRIFFIN ([id number]) on 04/18/2020 3:47:45 PM Ventricular Rate : 77 BPM Atrial Rate : 77 BPM P-R Interval : 162 ms QRS Duration : 74 ms Q-T Interval : 394 ms QTC Calculation(Bazett) : 445 ms P Chester : 15 degrees R Chester : -10 degrees T Chester : 14 degrees Test Reason : Arrhythmia Location : : [address] [place], [place] [id number] Overread By : MD HELMS SACHIN Edited By : MD HELMS SACHIN Referred By : LUNA HAWLEY Acquired by : SANG BRYAN [facility] NURSING PROGon 04-17-2020 NURSING PROG HNO ID: [id number] Author: Saloni (Rn) KIRK Winter Service: ? Author Type: Registered Nurse Type: Nursing Progress Note Filed: 04/17/2020 2:15 PM Note Text: Nursing Progress Note Patient Name: Patricia Hawley Patient Location: [id number]/[place] [id number]- Daily Note: Spoke with pt daughter at this time, updating her on her mother. Per the daughter would like a call if a time is set for pt procedure. This note was completed by: Saloni Winter RN [facility] PROGRESSon 04-17-2020 PROGRESS HNO ID: [id number] Author: Jasmina Oakley Service: Hospital Medicine Author Type: Physician Type: Progress Notes Filed: 04/19/2020 8:18 PM Note Text: DEPARTMENT OF HOSPITAL MEDICINE PROGRESS NOTE SERVICE DATE: 04/17/2020 SERVICE TIME: 7:00 PM Hospital Medicine/Primary Attending: Jasmina Oakley MD NIGHT AND WEEKEND COVERAGE: After 7pm please page 1930 CHIEF COMPLAINT: back pain. UTI SUBJECTIVE: Back pain not much at baseline. Weakness at baseline. No fever or chills OBJECTIVE: PHYSICAL EXAM: BP 120/45 Pulse 68 Temp (Src) 98.2 (Oral) Resp 18 Ht 5' 0 (1.52m) Wt 216 lb 3.2 oz (98.1kg) SpO2 100% BMI 42.22 kg/(m2). O2 Therapy: Nasal Cannula, Liters: 3 GENERAL: Alert, no distress, cooperative, SKIN: Skin color, texture, turgor normal. No rashes or lesions. OROPHARYNX: Lips, mucosa, and tongue normal. Teeth and gums normal. Oropharynx normal. LUNGS: Lungs clear to auscultation, Air entry good, Unlabored breathing. CARDIAC: Normal S1 and S2; no rubs, murmurs, or gallops ABDOMEN: Abdomen soft, non-tender, non-distended, BS normal EXTREMITIES: Normal, no deformities, edema, clubbing or skin discoloration. BACK: no tenderness. NEURO: AA coherent. ?Strength-?weakness in bilateral dorsiflexion and plantar flexors?.???Reflex decrease in bilateral patella MEDICATIONS: Current Facility-Administered Medications Medication Dose Route Frequency - metoprolol succinate ER 50 mg tab(s) (TOPROL XL) 50 mg ORAL DAILY - citalopram 20 mg tab(s) (CeleXA) 20 mg ORAL DAILY - DULoxetine 30 mg cap(s) (CYMBALTA) 30 mg ORAL DAILY - sertraline 100 mg tab(s) (ZOLOFT) 100 mg ORAL DAILY - ferrous sulfate 325 mg tab(s) 325 mg ORAL TID w MEALS - albuterol 2.5 mg /3 mL (0.083 %) 2.5 mg (PROVENTIL) 3 mL INHALATION q 6 H PRN - enoxaparin 40 mg injection (LOVENOX) 40 mg SUBCUTANEOUS DAILY - sodium chloride 0.9 % (flush) 3-5 mL (BD POSIFLUSH) 3-5 mL INTRAVENOUS q 12 H - ondansetron 4 mg tab(s) (ZOFRAN) 4 mg ORAL q 6 H PRN Or - ondansetron (PF) 4 mg injection (ZOFRAN) 4 mg INTRAVENOUS q 6 H PRN - acetaminophen 650 mg tab(s) (TYLENOL) 650 mg ORAL q 6 H PRN - atorvastatin 10 mg tab(s) (LIPITOR) 10 mg ORAL AT BEDTIME - hydrALAZINE 25 mg tab(s) (APRESOLINE) 25 mg ORAL q 8 H PRN - gabapentin 100 mg cap(s) (NEURONTIN) 100 mg ORAL q 8 H - methadone (DOLOPHINE) tab(s) 15 mg 15 mg ORAL DAILY (6 AM) - methadone 10 mg tab(s) (DOLOPHINE) 10 mg ORAL DAILY AT 12 PM - methadone 10 mg tab(s) (DOLOPHINE) 10 mg ORAL DAILY (10PM) - LORazepam 0.5 mg tab(s) (ATIVAN) 0.5 mg ORAL AT BEDTIME - oxyCODONE IR 5 mg tab(s) (ROXICODONE) 5 mg ORAL q 4 H PRN - senna-docusate 8.6-50 mg 1 tablet (SENNA-S) 1 tablet ORAL BID - lisinopril 5 mg tab(s) (ZESTRIL, PRINIVIL) 5 mg ORAL DAILY - Hydrochlorothiazide 12.5 mg 12.5 mg ORAL DAILY DATA: Diagnostic tests reviewed for today's visit: CBC, Coags, BMP, Mg, Phos Recent Labs 04/17/20 0553 04/15/20 0354 WBC -- 6.82 HB -- 9.0* HCT -- 28.5* PLT -- 324 NA 139 137 K 4.2 3.8 CHLOR 97 100 CO2 31* 25 BUN 28* 20 CREAT 1.22* 0.99* GLUC 78 103* CA 9.3 9.1 Liver Function, Amylase, AND Lipase Recent Labs 04/15/20 0354 TPROT 6.1* ALB 3.2* ALT 13 AST see below ALKPHOS 58 TBILI <0.2 Cardiac Enzymes Heme: No results for input(s): RETICP, ABSRETIC, LD, ANTONIETTA, FE, TIBC, TRANSFERSAT in the last 24 hours. No results found for: UALBCR Assessment/Plan Patient Active Hospital Problem List: UTI (urinary tract infection) (04/14/2020) ASSESSMENT: Mrs Hawley?transfer most of hospital for the concern of vertebral discitis/osteomyeliti s. ? She has: ? 1.??Chronic destruction at T12-L1 and T11-T12 level: Suspect infectious process S/p?MRI cervical, thoracic, lumbar spine at OSH-?results reviewed. WBC normal. ?CRP elevated at 27 Evaluated by ID and neurosurgery. Plan is to do IR guided biopsy on Saturday. Neurosurgery is considering surgical reconstruction of anterior column some point in time pending biopsy result. ? 2. ?UTI pyelonephritis: E. coli. Urinalysis was positive for pyuria at?OSH. On ceftriaxone ? 3. ?History of lumbar and cervical spine surgery: Has hardware/screws in cervical spine ? 4. ?Debility at baseline: Uses a wheelchair all the time baseline. Resides in a NH ? ? Chronic medical conditions 1. ?Hypertension: BP high. On lisinopril and HCTZ at home. Currently only on lisinopril 2. ?Anemia 3. ?Chronic pain syndrome: On methadone and gabapentin.. Restarted today pain management consulted. 4. ?COPD 5. ?Chronic hypoxic respiratory failure 2 L nasal cannula 6. ?Hyperlipidemia 7. ?ARCHANA. 8. Anxiety: On citalopram and Cymbalta. Also takes lorazepam as needed especially at night 8. No longer taking prednisone ? ? PLAN: Gentle iv hydration for mild increase in Cr. Decrease lisinopril to 5mg and HCTZ to 12.5 mg daily because of soft blood pressure. IR guided biopsy likely on Saturday. VTE Prophylaxis: Lovenox 40mg Sub Q Daily Disposition: Extended Care Facility Plan of care discussed with: Patient SIGNATURE: Jasmina Oakley MD PATIENT NAME: Patricia Hawley DATE: April 17, 2020 TIME: 7:00 PM PAGER/CONTACT #: [phone] [facility] PROGRESS HNO ID: [id number] Author: Alyson Thomas Service: Pain Management Author Type: Physician Type: Progress Notes Filed: 04/17/2020 2:00 PM Note Text: Name: PATRICIA HAWLEY Age: [age] year old PAIN MANAGEMENT: Acute on chronic back pain, T11-12, T12-L1 osteomyelitis/disciti s; multilevel degenerative disc disease Pain Description: Intermittent pain low back; on her right side. Worse with movement 24H Comfort Meds: Tylenol 650 mg x0 Cymbalta 30 mg daily Gabapentin 100 mg x 3 Methadone 15 mg a.m., 10 mg p.m. and 10 mg at bedtime Oxycodone 5 mg x 1 Prednisone 40 mg x 1 Interval HPI: Stable overnight; exam unchanged T12-L1 lesion biopsy pending Subjective HPI: 75-year-old female was transferred from [facility] after diagnostic work-up demonstrated T12-L1 discitis/osteomyeliti s and possible malignant infiltration. Patient initially presented there with right-sided flank and back pain. She was treated for UTI and found to have moderate hydronephrosis. 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 Pain regimen confirmed to [facility] and includes gabapentin 100 mg 3 times daily, Ativan 0.5 mg twice daily as needed, oxycodone 5 mg every 4 hours PRN methadone 15 mg a.m., 10 mg p.m. and 10 mg at at bedtime. She has a history of chronic back pain as well as diffuse osteoarthritis status post right SINAN and right TKA. She states she last walked independently a while ago. Per chart, patient had prior T12/L5 laminectomy, L2-L5 fusion, status post occiput to C6 fusion.she has chronic bilateral foot drop. She is wheelchair-bound. OARRS Review: Negative. Does not reflect [facility] pain regimen as documented above Current Facility-Administered Medications Medication Dose Route Frequency Provider Last Rate Last Dose - NaCl 0.9% iv infusion 100 mL/hr INTRAVENOUS CONTINUOUS Jasmina Hazel 100 mL/hr at 04/17/20 0834 100 mL/hr at 04/17/20 0834 - lisinopril 5 mg tab(s) (ZESTRIL, PRINIVIL) 5 mg ORAL DAILY Jasmina Hazel 5 mg at 04/17/20 0839 - Hydrochlorothiazide 12.5 mg 12.5 mg ORAL DAILY Jasmina Hazel 12.5 mg at 04/17/20 0836 - oxyCODONE IR 5 mg tab(s) (ROXICODONE) 5 mg ORAL q 4 H PRN Alyson K Scantling 5 mg at 04/17/20 0539 - senna-docusate 8.6-50 mg 1 tablet (SENNA-S) 1 tablet ORAL BID Alyson K Scantling 1 tablet at 04/17/20 0837 - hydrALAZINE 25 mg tab(s) (APRESOLINE) 25 mg ORAL q 8 H PRN Jasmina Hazel 25 mg at 04/15/20 1110 - gabapentin 100 mg cap(s) (NEURONTIN) 100 mg ORAL q 8 H Jasmina Hazel 100 mg at 04/17/20 0544 - methadone (DOLOPHINE) tab(s) 15 mg 15 mg ORAL DAILY (6 AM) Jasmina Hazel 15 mg at 04/17/20 0539 - methadone 10 mg tab(s) (DOLOPHINE) 10 mg ORAL DAILY AT 12 PM Jasmina Hazel 10 mg at 04/17/20 1128 - methadone 10 mg tab(s) (DOLOPHINE) 10 mg ORAL DAILY (10PM) Jasmina Hazel 10 mg at 04/16/202001 - LORazepam 0.5 mg tab(s) (ATIVAN) 0.5 mg ORAL AT BEDTIME [facility] Hazel 0.5 mg at 04/16/202000 - metoprolol succinate ER 50 mg tab(s) (TOPROL XL) 50 mg ORAL DAILY Naar Pinto 50 mg at 04/16/20 0837 - citalopram 20 mg tab(s) (CeleXA) 20 mg ORAL DAILY Naar Pinto 20 mg at 04/17/20 0836 - DULoxetine 30 mg cap(s) (CYMBALTA) 30 mg ORAL DAILY Naar Pinto 30 mg at 04/17/20 0837 - sertraline 100 mg tab(s) (ZOLOFT) 100 mg ORAL DAILY Naar Pinto 100 mg at 04/17/20 0837 - ferrous sulfate 325 mg tab(s) 325 mg ORAL TID w MEALS Naar Pinto 325 mg at 04/17/20 1124 - albuterol 2.5 mg /3 mL (0.083 %) 2.5 mg (PROVENTIL) 3 mL [facility]HALATION q 6 H [facility] - enoxaparin 40 mg injection (LOVENOX) 40 mg SUBCUTANEOUS DAILY Naar Pinto 40 mg at 04/17/20 0837 - sodium chloride 0.9 % (flush) 3-5 mL (BD POSIFLUSH) 3-5 mL INTRAVENOUS q 12 H Naar Pinto 3 mL at 04/17/20 0837 - ondansetron 4 mg tab(s) (ZOFRAN) 4 mg ORAL q 6 H PRN Naar Pinto 4 mg at 04/14/20 0951 Or - ondansetron (PF) 4 mg injection (ZOFRAN) 4 mg INTRAVENOUS q 6 H PRN [facility] - acetaminophen 650 mg tab(s) (TYLENOL) 650 mg ORAL q 6 H [facility]N [facility] mg at 04/16/204 - atorvastatin 10 mg tab(s) (LIPITOR) 10 mg ORAL AT BEDTIME [facility] 10 mg at 04/16/202000 - docusate sodium (COLACE) 100 mg capsule, Take 100 mg by mouth as needed for Constipation., Disp: , Rfl: - ferrous sulfate 325 mg (65 mg iron) tablet, Take 325 mg by mouth three times daily with meals., Disp: , Rfl: - hydroCHLOROthiazide (HYDRODIURIL, ESIDRIX) 25 mg tablet, Take 25 mg by mouth once daily., Disp: , Rfl: - LISINOPRIL ORAL, Take 10 mg by mouth once daily., Disp: , Rfl: - metoprolol tartrate, short acting, (LOPRESSOR) 50 mg tablet, Take 50 mg by mouth twice daily., Disp: , Rfl: - LORazepam (ATIVAN) 0.5 mg, Take 0.5 mg by mouth twice daily., Disp: , Rfl: - zolpidem (AMBIEN) 5 mg tablet, Take 5 mg by mouth at bedtime as needed., Disp: , Rfl: - methadone (DOLOPHINE) 10 mg tablet, Take 10 mg by mouth every 4 hours as needed. 10 mg at 12:00pm , 22:00 pm and 15 mg in the AM, Disp: , Rfl: - Methenamine Hippurate (HIPREX) 1 gram tablet, Take 1 g by mouth twice daily with meals., Disp: , Rfl: - albuterol (PROVENTIL) 2.5 mg /3 mL (0.083 %) nebulizer solution, Use 3 mL via nebulizer every 4 hours., Disp: , Rfl: - diclofenac sodium (VOLTAREN) 1 % topical gel, Apply to affected area four times daily., Disp: , Rfl: - predniSONE (DELTASONE) 20 mg tablet, Take 40 mg by mouth once daily., Disp: , Rfl: - sertraline (ZOLOFT) 100 mg tablet, Take 100 mg by mouth once daily., Disp: , Rfl: - citalopram (CELEXA) 20 mg tablet, Take 20 mg by mouth once daily., Disp: , Rfl: - Gabapentin 300 mg Tab, Take 100 mg by mouth three times daily. , Disp: , Rfl: - meloxicam (MOBIC) 7.5 mg tablet, Take 7.5 mg by mouth once daily., Disp: , Rfl: - pravastatin 40 mg tablet, Take 40 mg by mouth once daily., Disp: , Rfl: - Multivitamins-Mineral s-Lutein (CENTRUM SILVER) Tab, Take 1 tablet by mouth once daily., Disp: , Rfl: - DULoxetine (CYMBALTA) 30 mg capsule, Take 1 a day for 2 weeks, then increase to 2 pills a day., Disp: 60 capsule, Rfl: 3 - LISINOPRIL-HYDROCHLOR OTHIAZIDE 10-12.5 mg ORAL per tablet, 1 tablet once daily., Disp: , Rfl: - metoprolol succinate ER (TOPROL XL) 50 mg 24 hr tablet, Take 50 mg by mouth once daily. , Disp: , Rfl: - oxyCODONE-acetaminoph en (PERCOCET) 5-325 mg ORAL tablet, Take 1 tablet by mouth every 4 hours as needed. , Disp: , Rfl: Social History Tobacco Use - Smoking status: Never Smoker - Smokeless tobacco: Never Used Substance Use Topics - Alcohol use: No - Drug use: No No family history on file. PAST SURGICAL HISTORY Procedure Laterality Date - LAMINECTOMY,CERVICAL Laminectomy, cervical fusion x2 - PAST SURGICAL HISTORY OF bladder suspenion x2 - REPAIR ROTATOR CUFF,ACUTE Rotator cuff repair bilat - TOTAL HIP REPLACEMENT Hip replacement, total - TOTAL KNEE REPLACEMENT Knee replacement, total - VAGINAL HYSTERECTOMY Hysterectomy, vaginal ROS: All of the following reviewed and negative except as noted below: Significant for HPI GENERAL: no fever, chills, sweats, weight loss, fatigue, generalized weakness HEENT: no headache, vision changes, eye discomfort, hearing change, ear discomfort, sinus pain, nasal discharge or congestion, oral lesions, soreness, dental problem NECK: no adenopathy, discomfort, change in ROM CHEST: no shortness of breath, dyspnea on exertion, wheezing, cough, sputum production or chest pain HEART: no chest pain, palpitations, syncope ABDOMEN: no nausea, vomiting, constipation, diarrhea, abdominal pain : no dysuria, urgency, frequency, history of stones, incontinence NEURO: no confusion or alteration in consciousness, slurred speech, seizure, focal weakness EXTREMITIES: no new pain, edema, change in ROM HEME: no new adenopathy, bruises, petechiae PSYCH: no depression, anxiety, agitation PAIN PSYCHIATRIC EXAM: GENERAL: alert, oriented to person, place JUDGMENT AND INSIGHT: Limited APPEARANCE: neatly groomed DEMEANOR: coooperative, not hostile, mistrustful, preoccupied, or demanding ACTIVITY: normal, not hyperactive or hypoactive, no tremors, tics EYE CONTACT: normal SPEECH: normal, rate, volume, articulation, coherence, spontaneity MOOD: normal, without overt sadness, grief, anxiety, appropriate to situation IDEATION: Deferred mEMORY: Impaired PHYSICAL EXAMINATION: GENERAL: well nourished and developed; pleasant mild confusion; no acute distress; alert and oriented x 2; limited judgement and insight HEENT: no evidence of trauma; cranial nerves intact; eyes clear EOMI; no hearing deficits apparent; nasal passages unremarkable; throat and mucous membranes clear NECK: supple without lymphadenopathy; no JVD; no thyromegaly CHEST: clear bilaterally to auscultation; normal chest movement; no rales or rhonchi HEART: regular rate and rhythm, normal S1 and S2, no murmurs, clicks, rubs, or gallops ABDOMEN: soft; nondistended; bowel sounds present; no hepatomegaly; no splenomegaly; no tenderness EXTREMITIES: no evidence of clubbing; no cyanosis; no deformity; no joint effusion; no edema NEURO: cranial nerves intact; no confusion; no tremor; sensorium normal; bilateral lower extremity weakness and foot drop SKIN: no rash; no skin breakdown; no decubitus lesions HEME: no bruising; no adenopathy PSYCH: no evidence of depression; no anxiety; no agitation; no apparent hallucinations BP (!) 133/49 Pulse 64 Temp 37 ?C (98.6 ?F) (Oral) Resp 18 Ht 152.4 cm (5') Wt 97.1 kg (214 lb) SpO2 100% BMI 41.79 kg/m? BMI 41.79 kg/(m2) Date 04/16/20 0700 - 04/17/20 0659 Shift 9352-1930 7315-9222 2407-5170 24 Hour Total INTAKE PO 240 240 Shift Total 240 240 OUTPUT Shift Total Weight (kg) 96.9 96.9 96.9 96.9 Date 04/15/20 0700 - 04/16/20 0659 04/16/20 07 - 04/17/20 0659 Shift 1368-0220 5974-3807 1227-8453 24 Hour Total 1257-8070 1841-8240 8900-6389 24 Hour Total INTAKE PO 240 240 PO 240 240 Shift Total 240 240 OUTPUT Urine 6487 941 0931 Void (ml) 850 850 Urine Incontinence/Not Saved 1 x 1 x Output ( External Collection Device 04/13/20 2225) [phone] # of BMs Stool Incontinence 2 x 2 x Shift Total 9715 886 0553 Weight (kg) 100.2 99.3 96.9 96.9 96.9 96.9 96.9 96.9 ABNORMAL/NEW FINDINGS: NONE RADIOLOGY/DIAGNOSTICS : LABORATORY: CBC: No results for input(s): WBC, RBC, HB, HCT, PLT, MCV, MCH, MPV, RDW in the last 24 hours. CMP: Recent Labs 04/17/20 0553 NA 139 K 4.2 CHLOR 97 CO2 31* BUN 28* CREAT 1.22* GLUC 78 CA 9.3 ANION 11 Heme: No results for input(s): RETICP, ABSRETIC, LD, ANTONIETTA, FE, TIBC, TRANSFERSAT in the last 24 hours. ASSESSMENT ACTIVE PROBLEM LIST Fracture of Cervical Vertebra, C2 (Hcc) Cervical Spinal Stenosis Myelopathy (Hcc) S/P Cervical Spinal Fusion Shoulder Pain Osteoarthritis, Knee Neck pain Cervicalgia Uti (Urinary Tract Infection) PLAN: Patient with history of multiple prior spine surgeries as outlined above, wheelchair-bound with bilateral foot drop presents with destructive lesion of L1, T12 which is progressed compared to 2013 Poor functional baseline; no significant change in neurologic function Appreciate neurosurgery input. IR guided biopsy pending- either Sat or . 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 and 10 mg at bedtime Oxycodone 5 mg every 4 hours PRN Senna S twice daily Alyson Thomas MD [facility] PROGRESS HNO ID: [id number] Author: Rylee Wu (Bon) BON Lora Service: Neurosurgery Author Type: Physician Corporate Health Consultant Type: Progress Notes Filed: 04/17/2020 9:21 AM Note Text: Neurosurgery Progress Note SERVICE DATE: 04/17/2020 SUBJECTIVE: Pt sitting up in bed eating breakfast. States 'hanging in there.' pain controlled. OBJECTIVE: Vitals: Temp (24hrs), Av.1 ?C (98.8 ?F), Min:36.9 ?C (98.5 ?F), Max:37.4 ?C (99.4 ?F) BP (!) 111/40 Pulse 74 Temp 37 ?C (98.6 ?F) (Oral) Resp 18 Ht 152.4 cm (5') Wt 97.1 kg (214 lb) SpO2 100% BMI 41.79 kg/m? O2 Therapy: Room Air IANDO: Date 04/16/20 07 - 04/17/20 0659 04/17/20 07 - 04/18/20 0659 Shift 9884-7150 0026-9798 8603-8893 24 Hour Total 9627-3037 7819-7902 6466-0631 24 Hour Total INTAKE PO 240 50 290 PO 240 50 290 Shift Total 240 50 290 OUTPUT Urine 400 1100 1500 Void (ml) 400 400 Urine Not Saved. 2 x 2 x Output ( External Collection Device 04/13/20 2225) 1100 1100 Shift Total 400 1100 1500 Weight (kg) 96.9 97.1 97.1 97.1 97.1 97.1 97.1 97.1 MEDICATIONS Current Facility-Administered Medications Medication Dose Route Frequency - NaCl 0.9% iv infusion 100 mL/hr INTRAVENOUS CONTINUOUS - lisinopril 5 mg tab(s) (ZESTRIL, PRINIVIL) 5 mg ORAL DAILY - Hydrochlorothiazide 12.5 mg 12.5 mg ORAL DAILY - oxyCODONE IR 5 mg tab(s) (ROXICODONE) 5 mg ORAL q 4 H PRN - senna-docusate 8.6-50 mg 1 tablet (SENNA-S) 1 tablet ORAL BID - hydrALAZINE 25 mg tab(s) (APRESOLINE) 25 mg ORAL q 8 H PRN - gabapentin 100 mg cap(s) (NEURONTIN) 100 mg ORAL q 8 H - methadone (DOLOPHINE) tab(s) 15 mg 15 mg ORAL DAILY (6 AM) - methadone 10 mg tab(s) (DOLOPHINE) 10 mg ORAL DAILY AT 12 PM - methadone 10 mg tab(s) (DOLOPHINE) 10 mg ORAL DAILY (10PM) - LORazepam 0.5 mg tab(s) (ATIVAN) 0.5 mg ORAL AT BEDTIME - metoprolol succinate ER 50 mg tab(s) (TOPROL XL) 50 mg ORAL DAILY - citalopram 20 mg tab(s) (CeleXA) 20 mg ORAL DAILY - DULoxetine 30 mg cap(s) (CYMBALTA) 30 mg ORAL DAILY - sertraline 100 mg tab(s) (ZOLOFT) 100 mg ORAL DAILY - ferrous sulfate 325 mg tab(s) 325 mg ORAL TID w MEALS - albuterol 2.5 mg /3 mL (0.083 %) 2.5 mg (PROVENTIL) 3 mL INHALATION q 6 H PRN - enoxaparin 40 mg injection (LOVENOX) 40 mg SUBCUTANEOUS DAILY - sodium chloride 0.9 % (flush) 3-5 mL (BD POSIFLUSH) 3-5 mL INTRAVENOUS q 12 H - ondansetron 4 mg tab(s) (ZOFRAN) 4 mg ORAL q 6 H PRN Or - ondansetron (PF) 4 mg injection (ZOFRAN) 4 mg INTRAVENOUS q 6 H PRN - acetaminophen 650 mg tab(s) (TYLENOL) 650 mg ORAL q 6 H PRN - atorvastatin 10 mg tab(s) (LIPITOR) 10 mg ORAL AT BEDTIME Labs: Recent Labs 04/17/20 0553 04/15/20 0354 NA 139 137 K 4.2 3.8 CHLOR 97 100 CO2 31* 25 BUN 28* 20 CREAT 1.22* 0.99* GLUC 78 103* ANION 11 12 CA 9.3 9.1 ALB -- 3.2* AST -- see below ALT -- 13 ALKPHOS -- 58 TBILI -- <0.2 WBC -- 6.82 HB -- 9.0* HCT -- 28.5* PLT -- 324 Exam: GENERAL: No distress, Alert, pleasant and conversant NEURO: orientedx3; BLE weakness left more than right; moves BUE well with weak dish up person/intrinsics though feeding herself without issue HEENT: normocephalic, atraumatic LUNGS: Unlabored breathing SKIN: Skin color, texture, turgor normal, No rashes or lesions ASSESSMENT AND PLAN: Active Hospital Problems Diagnosis Date Noted - UTI (urinary tract infection) 04/14/2020 75 year old female advanced OM - destructive T12/L1 lesion - neuro stable - to go to IR on Sat or for biopsy - pain control - PM on board - plan pending based on IR findings SIGNATURE: BON Roberts PATIENT NAME: Patricia Hawley DATE: April 17, 2020 TIME: 9:16 AM Pager: [phone] [facility] CONSULTon 04-16-2020 CONSULT HNO ID: [id number] Author: Alyson Thomas Service: Pain Management Author Type: Physician Type: Consults Filed: 04/16/2020 7:25 PM Note Text: Name: PATRICIA HAWLEY Age: [age] year old PAIN MANAGEMENT: Acute on chronic back pain, T11-12, T12-L1 osteomyelitis/disciti s; multilevel degenerative disc disease Pain Description: Patient complains of sore naris when she presses on her chest. Also complains of intermittent severe pain in her mid lower back Interval HPI: 24H Comfort Meds: Tylenol 650 mg every 6 hours PRN x1 Cymbalta 30 mg daily Gabapentin 100 mg every 8 hours x 2 Methadone 15 mg a.m., 10 mg p.m. and 10 mg at bedtime Percocet 5/325 1 tab every 4 hours PRN Prednisone 40 mg x 1 Subjective HPI: 75-year-old female was transferred from [facility] after diagnostic work-up demonstrated T12-L1 discitis/osteomyeliti s and possible malignant infiltration. Patient initially presented there with right-sided flank and back pain. She was treated for UTI and found to have moderate hydronephrosis. 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 Pain regimen confirmed to [facility] and includes gabapentin 100 mg 3 times daily, Ativan 0.5 mg twice daily as needed, oxycodone 5 mg every 4 hours PRN methadone 15 mg a.m., 10 mg p.m. and 10 mg at at bedtime. She has a history of chronic back pain as well as diffuse osteoarthritis status post right SINAN and right TKA. She states she last walked independently a while ago. Per chart, patient had prior T12/L5 laminectomy, L2-L5 fusion, status post occiput to C6 fusion.she has chronic bilateral foot drop. She is wheelchair-bound. OARRS Review: Negative. Does not reflect [facility] pain regimen as documented above Current Facility-Administered Medications Medication Dose Route Frequency Provider Last Rate Last Dose - Hydrochlorothiazide 25 mg 25 mg ORAL DAILY Jasmina Hazel 25 mg at 04/16/20 1035 - hydrALAZINE 25 mg tab(s) (APRESOLINE) 25 mg ORAL q 8 H PRN Jasmina Hazel 25 mg at 04/15/20 1110 - gabapentin 100 mg cap(s) (NEURONTIN) 100 mg ORAL q 8 H Jasmina Hazel 100 mg at 04/16/20 0623 - methadone (DOLOPHINE) tab(s) 15 mg 15 mg ORAL DAILY (6 AM) Jasmina Hazel 15 mg at 04/16/20 0623 - methadone 10 mg tab(s) (DOLOPHINE) 10 mg ORAL DAILY AT 12 PM Jasmina Hazel 10 mg at 04/15/20 1522 - methadone 10 mg tab(s) (DOLOPHINE) 10 mg ORAL DAILY (10PM) Jasmina Hazel 10 mg at 04/15/204 - LORazepam 0.5 mg tab(s) (ATIVAN) 0.5 mg ORAL AT BEDTIME Jasmina Hazel - metoprolol succinate ER 50 mg tab(s) (TOPROL XL) 50 mg ORAL DAILY Nauhar Pinto 50 mg at 04/16/20 0837 - citalopram 20 mg tab(s) (CeleXA) 20 mg ORAL DAILY Nauhar Pinto 20 mg at 04/16/20 0839 - DULoxetine 30 mg cap(s) (CYMBALTA) 30 mg ORAL DAILY Nauhar Pinto 30 mg at 04/16/20 0839 - sertraline 100 mg tab(s) (ZOLOFT) 100 mg [facility]ILY [facility] at 04/16/20 0837 - oxyCODONE-acetaminoph en 5-325 mg 1 tablet (PERCOCET) 1 tablet ORAL q 4 H PRN [facility] 1 tablet at 04/15/20 0407 - ferrous sulfate 325 mg tab(s) 325 mg ORAL TID w MEALS [facility] 325 mg at 04/16/20 1035 - albuterol 2.5 mg /3 mL (0.083 %) 2.5 mg (PROVENTIL) 3 mL INHALATION q 6 H PRN [facility] - enoxaparin 40 mg injection (LOVENOX) 40 mg SUBCUTANEOUS DAILY [facility] 40 mg at 04/16/20 0836 - sodium chloride 0.9 % (flush) 3-5 mL (BD POSIFLUSH) 3-5 mL INTRAVENOUS q 12 H [facility] 5 mL at 04/16/20 0837 - ondansetron 4 mg tab(s) (ZOFRAN) 4 mg ORAL q 6 H PRN [facility] 4 mg at 04/14/20 0951 Or - ondansetron (PF) 4 mg injection (ZOFRAN) 4 mg INTRAVENOUS q 6 H PRN [facility] - acetaminophen 650 mg tab(s) (TYLENOL) 650 mg ORAL q 6 H PRN [facility] 650 mg at 04/16/20 0024 - atorvastatin 10 mg tab(s) (LIPITOR) 10 mg ORAL AT BEDTIME [facility] 10 mg at 04/15/204 - lisinopril 10 mg tab(s) (ZESTRIL, PRINIVIL) 10 mg ORAL DAILY [facility] 10 mg at 04/16/20 0837 - cefTRIAXone 1 g in D5W 100 mL MB+ (ROCEPHIN) 1 g INTRAVENOUS q 24 H Giovani Shin 200 mL/hr at 04/16/20 0836 1 g at 04/16/20 0836 - docusate sodium (COLACE) 100 mg capsule, Take 100 mg by mouth as needed for Constipation., Disp: , Rfl: - ferrous sulfate 325 mg (65 mg iron) tablet, Take 325 mg by mouth three times daily with meals., Disp: , Rfl: - hydroCHLOROthiazide (HYDRODIURIL, ESIDRIX) 25 mg tablet, Take 25 mg by mouth once daily., Disp: , Rfl: - LISINOPRIL ORAL, Take 10 mg by mouth once daily., Disp: , Rfl: - metoprolol tartrate, short acting, (LOPRESSOR) 50 mg tablet, Take 50 mg by mouth twice daily., Disp: , Rfl: - LORazepam (ATIVAN) 0.5 mg, Take 0.5 mg by mouth twice daily., Disp: , Rfl: - zolpidem (AMBIEN) 5 mg tablet, Take 5 mg by mouth at bedtime as needed., Disp: , Rfl: - methadone (DOLOPHINE) 10 mg tablet, Take 10 mg by mouth every 4 hours as needed. 10 mg at 12:00pm , 22:00 pm and 15 mg in the AM, Disp: , Rfl: - Methenamine Hippurate (HIPREX) 1 gram tablet, Take 1 g by mouth twice daily with meals., Disp: , Rfl: - albuterol (PROVENTIL) 2.5 mg /3 mL (0.083 %) nebulizer solution, Use 3 mL via nebulizer every 4 hours., Disp: , Rfl: - diclofenac sodium (VOLTAREN) 1 % topical gel, Apply to affected area four times daily., Disp: , Rfl: - predniSONE (DELTASONE) 20 mg tablet, Take 40 mg by mouth once daily., Disp: , Rfl: - sertraline (ZOLOFT) 100 mg tablet, Take 100 mg by mouth once daily., Disp: , Rfl: - citalopram (CELEXA) 20 mg tablet, Take 20 mg by mouth once daily., Disp: , Rfl: - Gabapentin 300 mg Tab, Take 100 mg by mouth three times daily. , Disp: , Rfl: - meloxicam (MOBIC) 7.5 mg tablet, Take 7.5 mg by mouth once daily., Disp: , Rfl: - pravastatin 40 mg tablet, Take 40 mg by mouth once daily., Disp: , Rfl: - Multivitamins-Mineral s-Lutein (CENTRUM SILVER) Tab, Take 1 tablet by mouth once daily., Disp: , Rfl: - DULoxetine (CYMBALTA) 30 mg capsule, Take 1 a day for 2 weeks, then increase to 2 pills a day., Disp: 60 capsule, Rfl: 3 - LISINOPRIL-HYDROCHLOR OTHIAZIDE 10-12.5 mg ORAL per tablet, 1 tablet once daily., Disp: , Rfl: - metoprolol succinate ER (TOPROL XL) 50 mg 24 hr tablet, Take 50 mg by mouth once daily. , Disp: , Rfl: - oxyCODONE-acetaminoph en (PERCOCET) 5-325 mg ORAL tablet, Take 1 tablet by mouth every 4 hours as needed. , Disp: , Rfl: Social History Tobacco Use - Smoking status: Never Smoker - Smokeless tobacco: Never Used Substance Use Topics - Alcohol use: No - Drug use: No No family history on file. PAST SURGICAL HISTORY Procedure Laterality Date - LAMINECTOMY,CERVICAL Laminectomy, cervical fusion x2 - PAST SURGICAL HISTORY OF bladder suspenion x2 - REPAIR ROTATOR CUFF,ACUTE Rotator cuff repair bilat - TOTAL HIP REPLACEMENT Hip replacement, total - TOTAL KNEE REPLACEMENT Knee replacement, total - VAGINAL HYSTERECTOMY Hysterectomy, vaginal ROS: All of the following reviewed and negative except as noted below: Significant for HPI GENERAL: no fever, chills, sweats, weight loss, fatigue, generalized weakness HEENT: no headache, vision changes, eye discomfort, hearing change, ear discomfort, sinus pain, nasal discharge or congestion, oral lesions, soreness, dental problem NECK: no adenopathy, discomfort, change in ROM CHEST: no shortness of breath, dyspnea on exertion, wheezing, cough, sputum production or chest pain HEART: no chest pain, palpitations, syncope ABDOMEN: no nausea, vomiting, constipation, diarrhea, abdominal pain : no dysuria, urgency, frequency, history of stones, incontinence NEURO: no confusion or alteration in consciousness, slurred speech, seizure, focal weakness EXTREMITIES: no new pain, edema, change in ROM HEME: no new adenopathy, bruises, petechiae PSYCH: no depression, anxiety, agitation PAIN PSYCHIATRIC EXAM: GENERAL: alert, oriented to person, place JUDGMENT AND INSIGHT: Limited APPEARANCE: neatly groomed DEMEANOR: coooperative, not hostile, mistrustful, preoccupied, or demanding ACTIVITY: normal, not hyperactive or hypoactive, no tremors, tics EYE CONTACT: normal SPEECH: normal, rate, volume, articulation, coherence, spontaneity MOOD: normal, without overt sadness, grief, anxiety, appropriate to situation IDEATION: Deferred mEMORY: Impaired PHYSICAL EXAMINATION: GENERAL: well nourished and developed; pleasant mild confusion; no acute distress; alert and oriented x 2; limited judgement and insight HEENT: no evidence of trauma; cranial nerves intact; eyes clear EOMI; no hearing deficits apparent; nasal passages unremarkable; throat and mucous membranes clear NECK: supple without lymphadenopathy; no JVD; no thyromegaly CHEST: clear bilaterally to auscultation; normal chest movement; no rales or rhonchi HEART: regular rate and rhythm, normal S1 and S2, no murmurs, clicks, rubs, or gallops ABDOMEN: soft; nondistended; bowel sounds present; no hepatomegaly; no splenomegaly; no tenderness EXTREMITIES: no evidence of clubbing; no cyanosis; no deformity; no joint effusion; no edema NEURO: cranial nerves intact; no confusion; no tremor; sensorium normal; bilateral lower extremity weakness and foot drop SKIN: no rash; no skin breakdown; no decubitus lesions HEME: no bruising; no adenopathy PSYCH: no evidence of depression; no anxiety; no agitation; no apparent hallucinations BP 123/65 Pulse (!) 50 Temp 36.7 ?C (98.1 ?F) (Oral) Resp 18 Ht 152.4 cm (5') Wt 96.9 kg (213 lb 9.6 oz) SpO2 97% BMI 41.72 kg/m? BMI 41.72 kg/(m2) Date 04/16/20699 - 04/17/20 0659 Shift 8760-5334 9743-6405 3565-1990 24 Hour Total INTAKE PO 240 240 Shift Total 240 240 OUTPUT Shift Total Weight (kg) 96.9 96.9 96.9 96.9 Date 04/15/20699 - 04/16/2065804/16/20699 - 04/17/20 0659 Shift 9465-8673 2778-6176 5644-0309 24 Hour Total 4083-7634 0788-6055 4075-6653 24 Hour Total INTAKE PO 240 240 PO 240 240 Shift Total 240 240 OUTPUT Urine 2024 427 4708 Void (ml) 850 850 Urine Incontinence/Not Saved 1 x 1 x Output ( External Collection Device 04/13/205) 820 191 7191 # of BMs Stool Incontinence 2 x 2 x Shift Total 6789 173 4764 Weight (kg) 100.2 99.3 96.9 96.9 96.9 96.9 96.9 96.9 ABNORMAL/NEW FINDINGS: NONE RADIOLOGY/DIAGNOSTICS : LABORATORY: CBC: No results for input(s): WBC, RBC, HB, HCT, PLT, MCV, MCH, MPV, RDW in the last 24 hours. CMP: No results for input(s): NA, K, CHLOR, CO2, BUN, CREAT, GLUC, TPROT, CA, MG, ALBUMIN, TBILI, ALKPHOS, ALT, AST, ANION in the last 24 hours. Heme: No results for input(s): RETICP, ABSRETIC, LD, ANTONIETTA, FE, TIBC, TRANSFERSAT in the last 24 hours. ASSESSMENT ACTIVE PROBLEM LIST Fracture of Cervical Vertebra, C2 (Hcc) Cervical Spinal Stenosis Myelopathy (Hcc) S/P Cervical Spinal Fusion Shoulder Pain Osteoarthritis, Knee Neck pain Cervicalgia Uti (Urinary Tract Infection) PLAN: Patient with history of multiple prior spine surgeries as outlined above, wheelchair-bound with bilateral foot drop presents with destructive lesion of L1, T12 which is progressed compared to 2013 Poor functional baseline; no significant change in neurologic function Appreciate neurosurgery input. IR guided biopsy pending. 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 and 10 mg at bedtime Change Percocet to oxycodone 5 mg every 4 hours PRN Senna S twice daily Thank you for this consult Alyson Thomas MD [facility] PROGRESSon 04-16-2020 PROGRESS HNO ID: [id number] Author: Jasmina Oakley Service: Hospital Medicine Author Type: Physician Type: Progress Notes Filed: 04/19/2020 8:17 PM Note Text: DEPARTMENT OF HOSPITAL MEDICINE PROGRESS NOTE SERVICE DATE: 04/16/2020 SERVICE TIME: 6:20 PM Hospital Medicine/Primary Attending: Jasmina Oakley MD NIGHT AND WEEKEND COVERAGE: After 7pm please page [phone] CHIEF COMPLAINT: Back pain SUBJECTIVE: Back pain at rest. No fever or chills. No n,v. OBJECTIVE: PHYSICAL EXAM: BP 116/47 Pulse 67 Temp (Src) 98.5 (Oral) Resp 18 Ht 5' 0 (1.52m) Wt 213 lb 9.6 oz (96.9kg) SpO2 99% BMI 41.72 kg/(m2). O2 Therapy: Room Air, Liters: 3 GENERAL: Alert, no distress, cooperative, SKIN: Skin color, texture, turgor normal. No rashes or lesions. OROPHARYNX: Lips, mucosa, and tongue normal. Teeth and gums normal. Oropharynx normal. LUNGS: Lungs clear to auscultation, Air entry good, Unlabored breathing. CARDIAC: Normal S1 and S2; no rubs, murmurs, or gallops ABDOMEN: Abdomen soft, non-tender, non-distended, BS normal EXTREMITIES: Normal, no deformities, edema, clubbing or skin discoloration. NEURO: AA coherent. Strength- weakness in bilateral dorsiflexion and plantar flexors . Reflex decrease in bilateral patella MEDICATIONS: Current Facility-Administered Medications Medication Dose Route Frequency - metoprolol succinate ER 50 mg tab(s) (TOPROL XL) 50 mg ORAL DAILY - citalopram 20 mg tab(s) (CeleXA) 20 mg ORAL DAILY - DULoxetine 30 mg cap(s) (CYMBALTA) 30 mg ORAL DAILY - sertraline 100 mg tab(s) (ZOLOFT) 100 mg ORAL DAILY - oxyCODONE-acetaminoph en 5-325 mg 1 tablet (PERCOCET) 1 tablet ORAL q 4 H PRN - ferrous sulfate 325 mg tab(s) 325 mg ORAL TID w MEALS - albuterol 2.5 mg /3 mL (0.083 %) 2.5 mg (PROVENTIL) 3 mL INHALATION q 6 H PRN - enoxaparin 40 mg injection (LOVENOX) 40 mg SUBCUTANEOUS DAILY - sodium chloride 0.9 % (flush) 3-5 mL (BD POSIFLUSH) 3-5 mL INTRAVENOUS q 12 H - ondansetron 4 mg tab(s) (ZOFRAN) 4 mg ORAL q 6 H PRN Or - ondansetron (PF) 4 mg injection (ZOFRAN) 4 mg INTRAVENOUS q 6 H PRN - acetaminophen 650 mg tab(s) (TYLENOL) 650 mg ORAL q 6 H PRN - atorvastatin 10 mg tab(s) (LIPITOR) 10 mg ORAL AT BEDTIME - lisinopril 10 mg tab(s) (ZESTRIL, PRINIVIL) 10 mg ORAL DAILY - cefTRIAXone 1 g in D5W 100 mL MB+ (ROCEPHIN) 1 g INTRAVENOUS q 24 H - Hydrochlorothiazide 25 mg 25 mg ORAL DAILY - hydrALAZINE 25 mg tab(s) (APRESOLINE) 25 mg ORAL q 8 H PRN - gabapentin 100 mg cap(s) (NEURONTIN) 100 mg ORAL q 8 H - methadone (DOLOPHINE) tab(s) 15 mg 15 mg ORAL DAILY (6 AM) - methadone 10 mg tab(s) (DOLOPHINE) 10 mg ORAL DAILY AT 12 PM - methadone 10 mg tab(s) (DOLOPHINE) 10 mg ORAL DAILY (10PM) - LORazepam 0.5 mg tab(s) (ATIVAN) 0.5 mg ORAL AT BEDTIME DATA: Diagnostic tests reviewed for today's visit: CBC, Coags, BMP, Mg, Phos Recent Labs 04/15/20 0354 04/14/20 0205 WBC 6.82 8.02 HB 9.0* 9.0* HCT 28.5* 29.0* PLT 324 317 NA 137 139 K 3.8 3.9 CHLOR 100 103 CO2 25 25 BUN 20 21 CREAT 0.99* 0.97* GLUC 103* 96 CA 9.1 8.9 Liver Function, Amylase, AND Lipase Recent Labs 04/15/20 0354 TPROT 6.1* ALB 3.2* ALT 13 AST see below ALKPHOS 58 TBILI <0.2 Cardiac Enzymes Heme: No results for input(s): RETICP, ABSRETIC, LD, ANTONIETTA, FE, TIBC, TRANSFERSAT in the last 24 hours. No results found for: UALBCR Assessment/Plan Patient Active Hospital Problem List: UTI (urinary tract infection) (04/14/2020) ASSESSMENT: Mrs Hawley?transfer most of hospital for the concern of vertebral discitis/osteomyeliti s. ? She has: ? 1.??Chronic destruction at T12-L1 and T11-T12 level: Suspect infectious process S/p?MRI cervical, thoracic, lumbar spine at OSH-?results reviewed. WBC normal. ?CRP elevated at 27 Evaluated by ID and neurosurgery. Plan is to do IR guided biopsy on Saturday. Neurosurgery is considering surgical reconstruction of anterior column some point in time pending biopsy result. ? 2. ?UTI pyelonephritis: E. coli. Urinalysis was positive for pyuria at?OSH. on ceftriaxone ? 3. ?History of lumbar and cervical spine surgery: Has hardware/screws in cervical spine ? 4. ?Debility at baseline: Uses a wheelchair all the time baseline. Resides in a NH ? ? Chronic medical conditions 1. ?Hypertension: BP high. On lisinopril and HCTZ at home. Currently only on lisinopril 2. ?Anemia 3. ?Chronic pain syndrome: On methadone and gabapentin.. Restarted today pain management consulted. 4. ?COPD 5. ?Chronic hypoxic respiratory failure 2 L nasal cannula 6. ?Hyperlipidemia 7. ?ARCHANA. 8. Anxiety: On citalopram and Cymbalta. Also takes lorazepam as needed especially at night 8. No longer taking prednisone ? PLAN: Continue current treatment. IR-guided biopsy on Saturday. Pain management to see the patient VTE Prophylaxis: Lovenox 40mg Sub Q Daily Disposition: To be determined Plan of care discussed with: Patient SIGNATURE: Jasmina Oakley MD PATIENT NAME: Patricia Hawley DATE: April 16, 2020 TIME: 6:20 PM PAGER/CONTACT #: [phone] [facility] CASE MANAGEMon 2020 CASE MANAGEM HNO ID: [id number] Author: María SarmientoRn) KIRK Mccall Service: Care Management Author Type: Registered Nurse Type: Care Mgt Progress Note Filed: 2020 9:00 AM Note Text: CARE MANAGEMENT PROGRESS NOTE SERVICE DATE: 2020 SERVICE TIME: 8:59 AM LOS: 1 day Pt will need a COVID test ordered prior to discharge. Already notified Dr. Oakley. SIGNATURE: María Mccall RN PATIENT NAME: Patricia Hawley DATE: 2020 TIME: 8:59 AM PAGER/CONTACT #: [phone] [facility] CONSULTon 2020 CONSULT HNO ID: [id number] Author: Susan Jorge Service: Neurosurgery Author Type: Physician Type: Consults Filed: 2020 6:33 PM Note Text: CONSULT: NEUROSURGERY SERVICE SERVICE DATE: 2020 SERVICE TIME: 6:06 PM REASON FOR CONSULT: T12 lesion REQUESTING PHYSICIAN: Dr. Lizama PRIMARY CARE PHYSICIAN: Wolf Berry MD Subjective Ms. Hawley is a 75 year old female who presents for evaluation of increasing back and flank pain for the last 3 weeks. Has poor baseline functioning and is wheelchair bound. Fluctuating mental status. [facility] , who has dementia and Parkinson's. Nausea over last month. Multiple surgeries in the past. Has bilateral drop foot for years. Using Has chronic UTI's and twice septic in the last few months. FUNCTIONAL STATUS: Totally dependent PAST MEDICAL HISTORY Diagnosis Date - Dysthymic disorder Depression (non-psychotic) - Obstructive sleep apnea - Unspecified essential hypertension Essential hypertension PAST SURGICAL HISTORY Procedure Laterality Date - LAMINECTOMY,CERVICAL Laminectomy, cervical fusion x2 - PAST SURGICAL HISTORY OF bladder suspenion x2 - REPAIR ROTATOR CUFF,ACUTE Rotator cuff repair bilat - TOTAL HIP REPLACEMENT Hip replacement, total - TOTAL KNEE REPLACEMENT Knee replacement, total - VAGINAL HYSTERECTOMY Hysterectomy, vaginal No family history on file. Social History Tobacco Use - Smoking status: Never Smoker - Smokeless tobacco: Never Used Substance Use Topics - Alcohol use: No - Drug use: No - docusate sodium (COLACE) 100 mg capsule, Take 100 mg by mouth as needed for Constipation., Disp: , Rfl: - ferrous sulfate 325 mg (65 mg iron) tablet, Take 325 mg by mouth three times daily with meals., Disp: , Rfl: - hydroCHLOROthiazide (HYDRODIURIL, ESIDRIX) 25 mg tablet, Take 25 mg by mouth once daily., Disp: , Rfl: - LISINOPRIL ORAL, Take 10 mg by mouth once daily., Disp: , Rfl: - metoprolol tartrate, short acting, (LOPRESSOR) 50 mg tablet, Take 50 mg by mouth twice daily., Disp: , Rfl: - LORazepam (ATIVAN) 0.5 mg, Take 0.5 mg by mouth twice daily., Disp: , Rfl: - zolpidem (AMBIEN) 5 mg tablet, Take 5 mg by mouth at bedtime as needed., Disp: , Rfl: - methadone (DOLOPHINE) 10 mg tablet, Take 10 mg by mouth every 4 hours as needed. 10 mg at 12:00pm , 22:00 pm and 15 mg in the AM, Disp: , Rfl: - Methenamine Hippurate (HIPREX) 1 gram tablet, Take 1 g by mouth twice daily with meals., Disp: , Rfl: - albuterol (PROVENTIL) 2.5 mg /3 mL (0.083 %) nebulizer solution, Use 3 mL via nebulizer every 4 hours., Disp: , Rfl: - diclofenac sodium (VOLTAREN) 1 % topical gel, Apply to affected area four times daily., Disp: , Rfl: - predniSONE (DELTASONE) 20 mg tablet, Take 40 mg by mouth once daily., Disp: , Rfl: - sertraline (ZOLOFT) 100 mg tablet, Take 100 mg by mouth once daily., Disp: , Rfl: - citalopram (CELEXA) 20 mg tablet, Take 20 mg by mouth once daily., Disp: , Rfl: - Gabapentin 300 mg Tab, Take 100 mg by mouth three times daily. , Disp: , Rfl: - meloxicam (MOBIC) 7.5 mg tablet, Take 7.5 mg by mouth once daily., Disp: , Rfl: - pravastatin 40 mg tablet, Take 40 mg by mouth once daily., Disp: , Rfl: - Multivitamins-Mineral s-Lutein (CENTRUM SILVER) Tab, Take 1 tablet by mouth once daily., Disp: , Rfl: - DULoxetine (CYMBALTA) 30 mg capsule, Take 1 a day for 2 weeks, then increase to 2 pills a day., Disp: 60 capsule, Rfl: 3 - LISINOPRIL-HYDROCHLOR OTHIAZIDE 10-12.5 mg ORAL per tablet, 1 tablet once daily., Disp: , Rfl: - metoprolol succinate ER (TOPROL XL) 50 mg 24 hr tablet, Take 50 mg by mouth once daily. , Disp: , Rfl: - oxyCODONE-acetaminoph en (PERCOCET) 5-325 mg ORAL tablet, Take 1 tablet by mouth every 4 hours as needed. , Disp: , Rfl: Current Facility-Administered Medications Medication Dose Route Frequency - metoprolol succinate ER 50 mg tab(s) (TOPROL XL) 50 mg ORAL DAILY - citalopram 20 mg tab(s) (CeleXA) 20 mg ORAL DAILY - DULoxetine 30 mg cap(s) (CYMBALTA) 30 mg ORAL DAILY - LORazepam 0.5 mg tab(s) (ATIVAN) 0.5 mg ORAL BID - sertraline 100 mg tab(s) (ZOLOFT) 100 mg ORAL DAILY - oxyCODONE-acetaminoph en 5-325 mg 1 tablet (PERCOCET) 1 tablet ORAL q 4 H PRN - ferrous sulfate 325 mg tab(s) 325 mg ORAL TID w MEALS - albuterol 2.5 mg /3 mL (0.083 %) 2.5 mg (PROVENTIL) 3 mL INHALATION q 6 H PRN - enoxaparin 40 mg injection (LOVENOX) 40 mg SUBCUTANEOUS DAILY - sodium chloride 0.9 % (flush) 3-5 mL (BD POSIFLUSH) 3-5 mL INTRAVENOUS q 12 H - ondansetron 4 mg tab(s) (ZOFRAN) 4 mg ORAL q 6 H PRN Or - ondansetron (PF) 4 mg injection (ZOFRAN) 4 mg INTRAVENOUS q 6 H PRN - acetaminophen 650 mg tab(s) (TYLENOL) 650 mg ORAL q 6 H PRN - atorvastatin 10 mg tab(s) (LIPITOR) 10 mg ORAL AT BEDTIME - lisinopril 10 mg tab(s) (ZESTRIL, PRINIVIL) 10 mg ORAL DAILY - cefTRIAXone 1 g in D5W 100 mL MB+ (ROCEPHIN) 1 g INTRAVENOUS q 24 H - Hydrochlorothiazide 25 mg 25 mg ORAL DAILY - hydrALAZINE 25 mg tab(s) (APRESOLINE) 25 mg ORAL q 8 H PRN - gabapentin 100 mg cap(s) (NEURONTIN) 100 mg ORAL q 8 H - [START ON 04/16/2020] methadone (DOLOPHINE) tab(s) 15 mg 15 mg ORAL DAILY (6 AM) - methadone 10 mg tab(s) (DOLOPHINE) 10 mg ORAL DAILY AT 12 PM - methadone 10 mg tab(s) (DOLOPHINE) 10 mg ORAL DAILY (10PM) Allergies As of Date: 04/13/2020 Allergen Noted Reaction MACRODANTIN [NITROFURANTOIN] 12/22/2009 GI Upset MORPHINE SULFATE 12/22/2009 GI Upset Fully Assessed 04/13/2020 COMPLETE REVIEW OF SYSTEMS: 10 point ROS is positive for nausea, recurrent UTI's, occasional cough, otherwise negative, had one episode of fever with negative covid Objective PHYSICAL EXAM: Physical Exam Performed: BP 175/84 Pulse 74 Temp (Src) 99 (Oral) Resp 18 Ht 5' 0 (1.52m) Wt 218 lb 14.4 oz (99.3kg) SpO2 97% BMI 42.75 kg/(m2). O2 Therapy: Nasal Cannula, Liters: 3 GENERAL APPEARANCE: Well nourished, well developed, and no apparent distress. NEURO PSYCH: Patient oriented to person, place, and time. Mood pleasant. Benign affect. CARDIOVASCULAR: Palpable pulses. No edema noted. No varicosities. RESPIRATORY: Unlabored respirations, no audible wheezes MUSCULOSKELETAL VISUAL INSPECTION CERVICAL: WNL THORACIC: WNL LUMBAR: WNL PALPATION: No tenderness to palpation MUSCLE BULK: Normal and symmetrical in the upper AND lower extremities. MUSCLE TONE: Normal. MOTOR: HF KE 3/5 DF PF 0/5 bilaterally SENSORY: Decreased sensation to both feet, becomes normal above the ankle GAIT: Cannot ambulate DATA: Diagnostic tests reviewed for today's visit: Most recent labs and imaging results. MRI Lspine - destructive lesion of L1 T12, progressed compared to 2013 CT Lspine - bone errosion Impression/Recommenda tions Active Problems: UTI (urinary tract infection) POA: Yes 75F with worsening back pain and destructive L1/t12 lesion, s/p T120 L5 laminectomy, has L2-L5 non-instrumented fusion, s/p occiput to C6 fusion (Dr. Page) - ddx: infection vs neoplasm - spoke with daughter at length: poor baseline, but no significant change in neurological function recently - plan for IR-guided biopsy - will likely require surgical reconstruction of anterior column. Will determine details of surgical intervention once results of biopsy are available Resolved Problems: * No resolved hospital problems. * SIGNATURE: Susan Jorge MD PATIENT NAME: Patricia Hawley DATE: 2020 TIME: 6:06 PM PAGER: [phone] [facility] CONSULT PROGon 2020 CONSULT PROG HNO ID: [id number] Author: Giovani Shin Service: Infectious Disease Author Type: Physician Type: Consult Progress Note Filed: 2020 4:42 PM Note Text: PROGRESS NOTE INFECTIOUS DISEASE BRIEF SUMMARY: 74F h/o spinal stenosis s/p T12-L5 decompressive bilateral laminectomy with foraminotomies from T12-L5 for decompression. Presented to [facility]SH ([facility]) on 04/12/20 for R flank pain found to have UTI + hydronephrosis, transferred to [facility] 04/14/20 because of worsening paresthesias of legs, MRI c/t/l showed T12-L1 OM vs discitis vs malignancy. ASSESSMENT: 1. Ecoli UTI + hydronephrosis 2. Chronic T12-L1 vertebral body destruction Continue to treat for Ecoli UTI. Continue with ceftriaxone. Reviewed MRI lumbar with radiologist and IR, worse than 2013 and 2016, bigger as well. Will complete treatment of UTI over the weekend and obtain biopsy on Saturday with 1 day of antibiotic-free day. Estimated Creatinine Clearance: 52.2 mL/min (A) (based on SCr of 0.99 mg/dL (H)). RECOMMENDATIONS: - cont ceftriaxone #3 - complete 5 day course - IR guided disc biopsy on Saturday, giving 24 hours free of antibiotic prior to this - send for histopath + routine, fungal, AFB cx - consult neurosurgery for opinion of T12-L1 lesion D/w daughter, hospitalist, IR staff Dr Luis Alfredo Mantilla is available over the weekend if there is any question. I will assume care on Saturday if patient is still here. SUBJECTIVE: Interval Events: 04/15 better mentation today Medications: Current Facility-Administered Medications Medication Dose Route Frequency - metoprolol succinate ER 50 mg tab(s) (TOPROL XL) 50 mg ORAL DAILY - citalopram 20 mg tab(s) (CeleXA) 20 mg ORAL DAILY - DULoxetine 30 mg cap(s) (CYMBALTA) 30 mg ORAL DAILY - LORazepam 0.5 mg tab(s) (ATIVAN) 0.5 mg ORAL BID - sertraline 100 mg tab(s) (ZOLOFT) 100 mg ORAL DAILY - oxyCODONE-acetaminoph en 5-325 mg 1 tablet (PERCOCET) 1 tablet ORAL q 4 H PRN - ferrous sulfate 325 mg tab(s) 325 mg ORAL TID w MEALS - predniSONE 40 mg tab(s) (DELTASONE) 40 mg ORAL DAILY - albuterol 2.5 mg /3 mL (0.083 %) 2.5 mg (PROVENTIL) 3 mL INHALATION q 6 H PRN - enoxaparin 40 mg injection (LOVENOX) 40 mg SUBCUTANEOUS DAILY - sodium chloride 0.9 % (flush) 3-5 mL (BD POSIFLUSH) 3-5 mL INTRAVENOUS q 12 H - ondansetron 4 mg tab(s) (ZOFRAN) 4 mg ORAL q 6 H PRN Or - ondansetron (PF) 4 mg injection (ZOFRAN) 4 mg INTRAVENOUS q 6 H PRN - acetaminophen 650 mg tab(s) (TYLENOL) 650 mg ORAL q 6 H PRN - atorvastatin 10 mg tab(s) (LIPITOR) 10 mg ORAL AT BEDTIME - lisinopril 10 mg tab(s) (ZESTRIL, PRINIVIL) 10 mg ORAL DAILY - cefTRIAXone 1 g in D5W 100 mL MB+ (ROCEPHIN) 1 g INTRAVENOUS q 24 H - Hydrochlorothiazide 25 mg 25 mg ORAL DAILY - hydrALAZINE 25 mg tab(s) (APRESOLINE) 25 mg ORAL q 8 H PRN OBJECTIVE: Physical Exam: BP 176/70 Pulse (!) 57 Temp 37.1 ?C (98.8 ?F) (Oral) Resp 16 Ht 152.4 cm (5') Wt 100.2 kg (220 lb 14.4 oz) SpO2 99% BMI 43.14 kg/m? GENERAL APPEARANCE: Comfortable SKIN: No rashes or lesions NEURO: Awake, alert, no involuntary motions Lab data: WBC (thou/cmm) Date Value 2020 6.82 04/14/2020 8.02 07/28/2013 5.1 07/26/2013 6.7 07/24/2013 7.1 Platelet Count (thou/cmm) Date Value 2020 324 04/14/2020 317 07/28/2013 288 07/26/2013 274 07/24/2013 290 Creatinine (mg/dL) Date Value 2020 0.99 04/14/2020 0.97 07/26/2013 1.01 07/24/2013 0.78 07/24/2013 0.68 AST (U/L) Date Value 2020 see below ALT (U/L) Date Value 2020 13 DATA: Diagnostic Tests Reviewed for Today's Visit: Most recent labs Most recent imaging Microbiology data: Positive Micro-30 Days No results found for the last 720 hours. Ecoli 04/13/20 Ampicillin $ >=32 R Ampicillin/Sulbactam $ >=32 R Cefazolin $ <=4 S Cefepime $ <=0.12 S Ceftriaxone $ <=0.25 S Ciprofloxacin $ >=4 R Ertapenim $$$ <=0.12 S ESBL NEG Gentamicin $ >=16 R Imipenem *NF <=0.25 S Levofloxacin $ >=8 R Nitrofurantoin $ <=16 S Piperacillin/Tazobact am $$ 8 S Tobramycin $ 8 I Trimethoprim/Sulfamet ho $ >=320 R Reference Range: S= Susceptible, I= Intermediate, R= Resistant MICS are expressed in micrograms per mL Giovani Shin MD Infectious Disease Respiratory [place] Pager: [phone] Normal [facility] Comprehensive Metabolic Pane edward 2020 Albumin [Mass/Vol] 3.2 g/dL Low 3.9-4.9 [facility] Comment on above: Performed By: #### C MP #### [address] [address] ALP [Catalytic activity/Vol] 58 U/L Normal 34-123 [facility] Comment on above: Performed By: #### C MP #### [address] [address] ALT [Catalytic activity/Vol] 13 U/L Normal 7-38 [facility] Comment on above: Performed By: #### C MP #### [address] [address] Anion gap [Moles/Vol] 12 mmol/L Normal 9-18 [facility] Comment on above: Performed By: #### C MP #### [address] [address] AST [Catalytic activity/Vol] see below Normal 13-35 [facility] Comment on above: Result Comment: Unab le to assay. Specimen Hemolyzed Performed By: #### C MP #### [address] [address] Bilirubin [Mass/Vol] mg/dL Normal 0.2-1.3 [facility] Comment on above: Performed By: #### C MP #### [facility] [address] [place], [place] [address] Calcium [Mass/Vol] 9.1 mg/dL Normal 8.5-10.2 [facility] Comment on above: Performed By: #### C MP #### [facility] [address] [place], [place] [address] Chloride [Moles/Vol] 100 mmol/L Normal 97-105 [facility] Comment on above: Performed By: #### C MP #### [facility] [address] [place], [place] [address] CO2 Blood 25 mmol/L Normal 22-30 [facility] Comment on above: Performed By: #### C MP #### [facility] [address] [place], [place] [address] Creatinine [Mass/Vol] 0.99 mg/dL High 0.58-0.96 [facility] Comment on above: Performed By: #### C MP #### [facility] [address] [place], [place] [address] Glucose [Mass/Vol] 103 mg/dL High 74-99 [facility] Comment on above: Result Comment: The [place] [employer] (ADA) provides guidance for cutoff values for fasting glucose and random glucose. The ADA defines fasting as no caloric intake for at least 8 hours.Fasting plasma glucose results between 100 to 125 mg/dL indicate increased risk for diabetes (prediabetes). Fasting plasma glucose results greater than or equal to 126 mg/dL meet the criteria for diagnosis of diabetes. In the absence of unequivocal hyperglycemia, results should be confirmed by repeat testing. In a patient with classic symptoms of hyperglycemia or hyperglycemic crisis, random plasma glucose results greater than or equal to 200 mg/dL meet the criteria for diagnosis of diabetes. Reference: Standards of Medical Care in Diabetes 2016; [place] [employer]. Diabetes Care. 2016;39(Suppl 1). Performed By: #### C MP #### [facility] [address] [place], [place] [address] Potassium [Moles/Vol] 3.8 mmol/L Normal 3.7-5.1 [facility] Comment on above: Performed By: #### C MP #### [facility] [address] [place] [address] Protein [Mass/Vol] 6.1 g/dL Low 6.3-8.0 [facility] Comment on above: Performed By: #### C MP #### [facility] [address] [place] [address] Sodium [Moles/Vol] 137 mmol/L Normal 136-144 [facility] Comment on above: Performed By: #### C MP #### [facility] [address] [place] [address] Urea nitrogen [Mass/Vol] 20 mg/dL Normal 7-21 [facility] Comment on above: Performed By: #### C MP #### [facility] [address] [place] [address] Hemogram/Diffon 2020 Abs Immature Grans 0.02 thou/cmm Normal 0.00-0.05 [facility] Comment on above: Performed By: #### C BCD1 #### [facility] [address] [place] [address] Abs Neut (ANC) 4.23 thou/cmm Normal 1.56-6.[address] [facility] Comment on above: Performed By: #### C BCD1 #### [facility] [address] [place] [address] Abs. Baso 0.02 thou/cmm Normal 0.01-0.08 [facility] Comment on above: Performed By: #### C BCD1 #### [place] [address] Abs. Warrick 0.55 thou/cmm Normal 0.27-0.70 [facility] Comment on above: Performed By: #### C BCD1 #### [place] [address] Basophils/100 WBC (Bld) 0.3 % Normal A [facility] Comment on above: Performed By: #### C BCD1 #### [place] [address] Eosinophils (Bld) [#/Vol] 0.05 thou/cmm Normal 0.00-0.31 [facility] Comment on above: Performed By: #### C BCD1 #### [facility] [address] [place], [place] [address] Eosinophils/100 WBC (Bld) 0.7 % Normal [facility] Comment on above: Performed By: #### C BCD1 #### [facility] [address] [place] [address] Erythrocyte distribution width (RBC) [Ratio] 12.4 % Normal 11.7-14.4 [facility] Comment on above: Performed By: #### C BCD1 #### [facility] [address] [place] [address] Hematocrit (Bld) [Volume fraction] 28.5 % Low 34.1-44.9 [facility] Comment on above: Performed By: #### C BCD1 #### [facility] [address] [place] [address] Hemoglobin (Bld) [Mass/Vol] 9.0 g/dL Low 11.2-15.7 [facility] Comment on above: Performed By: #### C BCD1 #### [facility] [address] [place] [address] Immature Grans 0.30 % Normal [facility] Comment on above: Performed By: #### C BCD1 #### [facility] [address] [place] [address] Lymphocytes (Bld) [#/Vol] 1.95 thou/cmm Normal 1.18-3.74 [facility] Comment on above: Performed By: #### C BCD1 #### [facility] [address] [place] [address] Lymphocytes/100 WBC (Bld) 28.6 % Normal [facility] Comment on above: Performed By: #### C BCD1 #### [facility] [address] [place] [address] MCH (RBC) [Entitic mass] 30.7 pg Normal 25.6-32.2 [facility] Comment on above: Performed By: #### C BCD1 #### [facility] [address] [place], [place] [address] MCHC (RBC) [Mass/Vol] 31.6 % Normal 31.6-34.8 [facility] Comment on above: Performed By: #### C BCD1 #### [facility] [address] [place], [place] [address] MCV (RBC) [Entitic vol] 97.3 fL High 79.4-94.8 [facility] Comment on above: Performed By: #### C BCD1 #### [facility] [address] [place] [address] Monocytes/100 WBC (Bld) 8.1 % Normal [facility] Comment on above: Performed By: #### C BCD1 #### [facility] [address] [place] [address] Platelet mean volume (Bld) [Entitic vol] 10.1 fL Normal 9.4-12.3 [facility] Comment on above: Performed By: #### C BCD1 #### [facility] [address] [place] [address] Platelets (Bld) [#/Vol] 324 thou/cmm Normal 182-369 [facility] Comment on above: Performed By: #### C BCD1 #### [facility] [address] [place] [address] RBC (Bld) [#/Vol] 2.93 mil/cmm Low 3.93-5.22 [facility] Comment on above: Performed By: #### C BCD1 #### [facility] [address] [place] [address] RDW SD 44.5 fl Normal 36.4-46.3 [facility] Comment on above: Performed By: #### C BCD1 #### [facility] [address] [place] [address] Seg Neutrophil 62.0 % Normal [facility] Comment on above: Performed By: #### C BCD1 #### [facility] [address] [place], [place] [address] WBC (Bld) [#/Vol] 6.82 thou/cmm Normal 3.98-10.04 [facility] Comment on above: Performed By: #### C BCD1 #### [facility] [address] [place] [address] PROGRESSon 2020 PROGRESS HNO ID: [id number] Author: Jasmina Oakley Service: Hospital Medicine Author Type: Physician Type: Progress Notes Filed: 04/19/2020 8:17 PM Note Text: DEPARTMENT OF HOSPITAL MEDICINE PROGRESS NOTE SERVICE DATE: 2020 SERVICE TIME: 7:01 PM Hospital Medicine/Primary Attending: Jasmina Oakley MD NIGHT AND WEEKEND COVERAGE: After 7pm please page [phone] CHIEF COMPLAINT: back pain SUBJECTIVE: Was anxious because of vertebral biopsy. Reports pain in the back. She was on methadone at home which was not continued here. Was restarted today. Denies any chest pain or shortness of breath. No fever or chills. OBJECTIVE: PHYSICAL EXAM: BP 146/90 Pulse 78 Temp (Src) 98.6 (Oral) Resp 18 Ht 5' 0 (1.52m) Wt 218 lb 14.4 oz (99.3kg) SpO2 96% BMI 42.75 kg/(m2). O2 Therapy: Room Air, Liters: 3 GENERAL: Alert, no distress, cooperative, SKIN: Skin color, texture, turgor normal. No rashes or lesions. OROPHARYNX: Lips, mucosa, and tongue normal. Teeth and gums normal. Oropharynx normal. LUNGS: Lungs clear to auscultation, Air entry good, Unlabored breathing. CARDIAC: Normal S1 and S2; no rubs, murmurs, or gallops ABDOMEN: Abdomen soft, non-tender, non-distended, BS normal EXTREMITIES: Normal, no deformities, edema, clubbing or skin discoloration. BACK: Questionable tenderness over lumbar spine. NEURO: awake alert and coherent. MEDICATIONS: Current Facility-Administered Medications Medication Dose Route Frequency - metoprolol succinate ER 50 mg tab(s) (TOPROL XL) 50 mg ORAL DAILY - citalopram 20 mg tab(s) (CeleXA) 20 mg ORAL DAILY - DULoxetine 30 mg cap(s) (CYMBALTA) 30 mg ORAL DAILY - LORazepam 0.5 mg tab(s) (ATIVAN) 0.5 mg ORAL BID - sertraline 100 mg tab(s) (ZOLOFT) 100 mg ORAL DAILY - oxyCODONE-acetaminoph en 5-325 mg 1 tablet (PERCOCET) 1 tablet ORAL q 4 H PRN - ferrous sulfate 325 mg tab(s) 325 mg ORAL TID w MEALS - albuterol 2.5 mg /3 mL (0.083 %) 2.5 mg (PROVENTIL) 3 mL INHALATION q 6 H PRN - enoxaparin 40 mg injection (LOVENOX) 40 mg SUBCUTANEOUS DAILY - sodium chloride 0.9 % (flush) 3-5 mL (BD POSIFLUSH) 3-5 mL INTRAVENOUS q 12 H - ondansetron 4 mg tab(s) (ZOFRAN) 4 mg ORAL q 6 H PRN Or - ondansetron (PF) 4 mg injection (ZOFRAN) 4 mg INTRAVENOUS q 6 H PRN - acetaminophen 650 mg tab(s) (TYLENOL) 650 mg ORAL q 6 H PRN - atorvastatin 10 mg tab(s) (LIPITOR) 10 mg ORAL AT BEDTIME - lisinopril 10 mg tab(s) (ZESTRIL, PRINIVIL) 10 mg ORAL DAILY - cefTRIAXone 1 g in D5W 100 mL MB+ (ROCEPHIN) 1 g INTRAVENOUS q 24 H - Hydrochlorothiazide 25 mg 25 mg ORAL DAILY - hydrALAZINE 25 mg tab(s) (APRESOLINE) 25 mg ORAL q 8 H PRN - gabapentin 100 mg cap(s) (NEURONTIN) 100 mg ORAL q 8 H - [START ON 04/16/2020] methadone (DOLOPHINE) tab(s) 15 mg 15 mg ORAL DAILY (6 AM) - methadone 10 mg tab(s) (DOLOPHINE) 10 mg ORAL DAILY AT 12 PM - methadone 10 mg tab(s) (DOLOPHINE) 10 mg ORAL DAILY (10PM) DATA: Diagnostic tests reviewed for today's visit: CBC, Coags, BMP, Mg, Phos Recent Labs 04/15/20 0354 04/14/20 0205 WBC 6.82 8.02 HB 9.0* 9.0* HCT 28.5* 29.0* PLT 324 317 NA 137 139 K 3.8 3.9 CHLOR 100 103 CO2 25 25 BUN 20 21 CREAT 0.99* 0.97* GLUC 103* 96 CA 9.1 8.9 Liver Function, Amylase, AND Lipase Recent Labs 04/15/20 0354 TPROT 6.1* ALB 3.2* ALT 13 AST see below ALKPHOS 58 TBILI <0.2 Cardiac Enzymes Heme: No results for input(s): RETICP, ABSRETIC, LD, ANTONIETTA, FE, TIBC, TRANSFERSAT in the last 24 hours. No results found for: UALBCR Assessment/Plan Patient Active Hospital Problem List: UTI (urinary tract infection) (04/14/2020) ASSESSMENT: Mrs Hawley transfer most of hospital for the concern of vertebral discitis/osteomyeliti s. ? She has: ? 1.??Chronic destruction at T12-L1 and T11-T12 level: Suspect infectious process S/p MRI cervical, thoracic, lumbar spine at OSH- results reviewed. WBC normal. CRP elevated at 27 Evaluated by ID and neurosurgery. Plan is to do IR guided biopsy on Saturday. Neurosurgery is considering surgical reconstruction of anterior column some point in time pending biopsy result. ? 2. UTI pyelonephritis: E. coli. Urinalysis was positive for pyuria at OSH. On ceftriaxone ? 3. History of lumbar and cervical spine surgery: Has hardware/screws in cervical spine ? 4. Debility at baseline: Uses a wheelchair all the time baseline. Resides in a NH ? ? Chronic medical conditions 1. Hypertension: BP high. On lisinopril and HCTZ at home. Currently only on lisinopril 2. Anemia 3. Chronic pain syndrome: On methadone and gabapentin.. Restarted today pain management consulted. 4. COPD 5. Chronic hypoxic respiratory failure 2 L nasal cannula 6. Hyperlipidemia 7. ARCHANA. 8. Anxiety: On citalopram and Cymbalta. Also takes lorazepam as needed especially at night 8. No longer taking prednisone ? ? PLAN: Continue current antibiotics. Plan is to treat with ceftriaxone for UTI and then hold antibiotics. IR guided biopsy on Saturday. Further treatment following the biopsy. Home medications reviewed with patient and daughter. Methadone and gabapentin is started. Reports she was taking Lorazepam as needed especially at night ENTs for anxiety. Made them aware that lorazepam is not treatment of choice for long-term treatment for anxiety and has multiple and significant side effects. We will change lorazepam to 0.5 QHs, if possible will decrease the dose Add HCTZ. Monitor blood pressure closely Pain management consulted VTE Prophylaxis: Lovenox 40mg Sub Q Daily Disposition: To be determined Plan of care discussed with: Patient and Family/Significant Other: dtr SIGNATURE: Jasmina Oakley MD PATIENT NAME: Patricia Hawley DATE: 2020 TIME: 7:01 PM PAGER/CONTACT #: [phone] Normal [facility] THERAPY NTon 2020 THERAPY NT HNO ID: [id number] Author: Debbie (Pt) Kindra Service: Physical Therapy Author Type: Physical Therapist Type: Therapy (PT/OT/Speech/Resp) Filed: 2020 1:02 PM Note Text: Physical Therapy Evaluation SERVICE DATE: 2020 SERVICE TIME: 1106 to 1116 ROOM: [place] [address] Recommended Discharge Disposition: Subacute/SNF Recommended Discharge Disposition Comments: return to F with skilled therapies to return to baseline Justification For Post Acute Needs: Anticipate that patient will require daily (5x/wk) skilled therapy in a post-acute facility setting at the time of acute hospital discharge PT Recommendations to Nursing: Not appropriate for OOB activity at this time PT 6 Clicks Score: 7 Precautions/Activity Restrictions: Fall Risk;Bed/Chair Alarm Isolation Type: None ASSESSMENT : This patient was admitted to [facility] 04/12 with back/flank pain--transferred to [facility] 04/14, has the past medical history of spinal stenosis and arthritis impacting current functional level, as well as the social factors complicating the discharge of lives at [facility] with her --she is w/c bound. This patient is below baseline functioning--per dtr pt could stand with assist x2 but cannot pivot and patient states either uses slide board or sling lift and will benefit from continued skilled therapy in the hospital for treatment of the following body systems/impairments: musculoskeletal and neuromuscular for ROM/strength, functional mobility, balance and endurance Patient Disposition at Start of Session: Supine in Bed;Call [facility] in Re[place] Patient Disposition at End of Session: Supine in Bed;Call [facility] in Reach;Nursing Personnel Present Tolerance Limited By Fatigue Physical Therapy Problem List: Decreased Activity Tolerance;Functional Mobility Impairment;Decreased Range Of Motion;Decreased Strength Patient /Caregiver Goals: Go To Rehab Goals for Plan of Care: Transfer supine to/from sit with: Minimal Assistance Transfer sit to/from stand with: Moderate Assistance(x2) Goal: sit EOB x10 min completing static and dynamic activity Goal: 2x10 reps bilat LE AROM exercises Rehab Potential: Fair PLAN: Treatment Frequency (times per week): 5(1-5) Current admission Treatment Interventions: Education;Joint Mobility;Strengthenin g;Functional Mobility Training;Balance Training Plan of Care developed with: Patient TREATMENT INTERVENTIONS: Therapy Diagnosis: Reduced mobility-other;Muscle Weakness (generalized);Abnorma lities of gait and mobility-other Interventions Provided: Evaluation $ Evaluation-Moderate (59985) Billed Units: 1 unit History and examination of body systems see assessment section above. This patient?s clinical presentation is evolving. The patient required a moderate complexity evaluation. Instruct pt to reach across body for railing and facilitate rolling body left or right Total Treatment Time (minutes): 10 SUBJECTIVE: Current Hospital Course: Chart reviewed; see assessment section Reason for Physical Therapy Consult : eval and treat Relevant Past Medical History: spinal stenosis, arthritis Patient Report: c/o pain right LE Home Environment Patient Lives With: Spouse(with at [facility]) Assistance Available: 24 Hour Equipment Owned: (electric w/c; slide board or sling lift) Prior Functional Level: Required Assistance Assistance Required With: Transfers;Wheelchair Mobility;Self Care Prior Functional Level Comments: per pt slide board transfers or sling lift OBJECTIVE: Range of Motion: ROM Limitation Comments ROM Limitation Comments: bilat LEs limited AAROM Strength: Strength Limitation Comments Strength Limitation Comments: global weakness CURRENT FUNCTIONAL STATUS: Current Functional Mobility Assist Level Additional Information Rolling Maximal Assistance Supine to Sit Sit to Supine Scooting Sit to Stand Stand to Sit Bed to Chair Toilet/Commode Gait Stairs Curb Step Car [facility]: Bed activities / dependent transfer Please see discipline specific clinical documentation flowsheet for complete details for this therapy evaluation/treatment. SIGNATURE: Debbie Arguelles PT PATIENT NAME: Patricia Hawley DATE: 2020 TIME: 12:10 PM Normal [facility] Basic Metabolic Panelon 04-02 Anion gap [Moles/Vol] 11 mmol/L Normal 9-18 [facility] Comment on above: Performed By: #### B MP #### [place] [address] Calcium [Mass/Vol] 8.9 mg/dL Normal 8.5-10.2 [facility] Comment on above: Performed By: #### B MP #### [facility] [address] [place], [place] [address] Chloride [Moles/Vol] 103 mmol/L Normal 97-105 [facility] Comment on above: Performed By: #### B MP #### [facility] [address] [place], [place] [address] CO2 Blood 25 mmol/L Normal 22-30 [facility] Comment on above: Performed By: #### B MP #### [facility] [address] [place], [place] [address] Creatinine [Mass/Vol] 0.97 mg/dL High 0.58-0.96 [facility] Comment on above: Performed By: #### B MP #### [facility] [address] [place], [place] [address] Glucose [Mass/Vol] 96 mg/dL Normal 74-99 [facility] Comment on above: Result Comment: The [place] [employer] (ADA) provides guidance for cutoff values for fasting glucose and random glucose. The ADA defines fasting as no caloric intake for at least 8 hours.Fasting plasma glucose results between 100 to 125 mg/dL indicate increased risk for diabetes (prediabetes). Fasting plasma glucose results greater than or equal to 126 mg/dL meet the criteria for diagnosis of diabetes. In the absence of unequivocal hyperglycemia, results should be confirmed by repeat testing. In a patient with classic symptoms of hyperglycemia or hyperglycemic crisis, random plasma glucose results greater than or equal to 200 mg/dL meet the criteria for diagnosis of diabetes. Reference: Standards of Medical Care in Diabetes 2016; [place] [employer] Association. Diabetes Care. 2016;39(Suppl 1). Performed By: #### B MP #### [facility] [address] [place], [place] [address] Potassium [Moles/Vol] 3.9 mmol/L Normal 3.7-5.1 [facility] Comment on above: Performed By: #### B MP #### [facility] [address] [place], [place] [address] Sodium [Moles/Vol] 139 mmol/L Normal 136-144 [facility] Comment on above: Performed By: #### B MP #### [facility] [address] [place], [place] [address] Urea nitrogen [Mass/Vol] 21 mg/dL Normal 7-21 [facility] Comment on above: Performed By: #### B MP #### [facility] [address] [place], [place] [address] CASE MGT INIT SIMONon 2019 CASE MGT INIT ASSMEME HNO ID: [id number] Author: María (Rn) KIRK Mccall Service: Care Management Author Type: Registered Nurse Type: Care Mgt Initial Assessment Filed: 04/14/2020 3:26 PM Note Text: CARE MANAGEMENT: ASSESSMENT AND DISCHARGE PLAN SERVICE DATE: April 14, 2020 SERVICE TIME: 1100 PRIMARY CARE PHYSICIAN: Wolf Berry MD ADMISSION STATUS: Inpatient Needs Prior to Discharge: Facility or Agency Choices;Discharge Prescriptions;Dischar ge Transportation MEDICAL: [facility] MEDICARE Patient/Representativ e Stated Goals: To return home to life as it was;To have reduction in symptoms;To have reduction in pain Health Insurance: [employer] Health Issues Impacting Discharge Plan: Newly diagnosed Newly Diagnosed: UTI and back pain Last Discharge Date: 12/29/09 Is this Within the Past 30 days? Last discharge within 30 days: No Advance Directive: Current Advance Directive: Health Care Power of Land Leases And Rentals Manager In Chart: No Gandy Dancer Attempted to Assist with AD Completion: Yes Action: (requested copy be brought in.) Health LiteracyHow often do you need to have someone help you when you read instructions, pamphlets, or other written material from your doctor or pharmacy? : 3 - Sometimes How confident are you filling out medical forms by yourself?: 3 - Somewhat If Patient scores > 3 on either question, the following interventions were put into place:: Use of plain language and active listening with Patient and family;Use concrete and specific phrases, avoid medical jargon;Forms of communication used with patient and family;Teach back methods employed to ensure comprehension Baseline Mental Status Prior to this Illness what was the patient's Baseline Mental Status?: Alert AND Oriented Prior to this illness, has anyone described the patient having any of the following behaviors?: Not Applicable Relationship of the informant to the patient:: Self;Daughter Name of Informant: : Naina-daughter and patient Functional Status: Dependent Equipment Prior to Admission: Wheelchair;Other: See Comment(electric wheelchair) SOCIAL: Living Arrangements: Nursing Facility Lives With: Spouse Financial Resources: RetiredPrimary Contact: Extended Emergency Contact Information Primary Emergency Contact: Naina Willis Mobile Relation: Daughter Secondary Emergency Contact: Scott Dao Mobile Relation: Son Supportive Patient Contact:: Yes Contact Resources: Family Social Needs Food insecurity Worry: Never true Inability: Never true Resources Needed: No Social Needs Financial resource strain: Not on file Social Needs Transportation needs Medical: No Non-medical: No Caregiver AssessmentCaregiver is ready, willing and able to meet the patient's needs as recommended by the inter-professional team:: Yes Does the patient have an acute stroke diagnosis, or has the patient had a stroke during this admission?: No Patient's transition needs and plan for meeting these needs: return to the [facility] at discharge Patient's perception of need for this admission: UTI and back pain Are you interested in bedside delivery of your medications? 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 Pt is AANDOX3. Will need WC ride back to facility. SIGNATURE: María Mccall RN PATIENT NAME: Patricia Hawley DATE: April 14, 2020 TIME: 3:23 PM PAGER/CONTACT #: [phone] [facility] CONSULTon 04-14-2020 CONSULT HNO ID: [id number] Author: Leyda Azar Service: Hematology/Oncology Author Type: Physician Type: Consults Filed: 04/14/2020 11:11 AM Note Text: CONSULT: Hematology/OncologySE RVICE SERVICE DATE: 04/14/2020 REASON FOR CONSULT: Vertebral lesion , need for biopsy REQUESTING PHYSICIAN: Dr Pinto PRIMARY CARE PHYSICIAN: Nahun Casillas MD Subjective 74yo F is a transfer from [facility].Patient was admitted on 04/12/2020 at [facility] for right sided 8/10 flank/back pain. Patient initially was found to have a UTI. After this the patient had worsening right sided back pain with paresthesias of her legs that were getting worse. Her back pain started on Saturday this week and persistently got worse.She had fever once in the hospital. Patient had a CT abdomen/pelvis that mentioned of the mild to moderate bilateral hydronephrosis but also T12 vertebrae destruction and up to the superior aspect of L1. Patient ended up having an MRI of the cervical, thoracic and lumbar spine and was found to have mainly T12-L1 superinfection probably early OM vs discitis and possible malignant infiltration of T12-L1 which was less favored.Has gained weight. No change in appetite. PAST MEDICAL HISTORY Diagnosis Date - Dysthymic disorder Depression (non-psychotic) - Obstructive sleep apnea - Unspecified essential hypertension Essential hypertension PAST SURGICAL HISTORY Procedure Laterality Date - LAMINECTOMY,CERVICAL Laminectomy, cervical fusion x2 - PAST SURGICAL HISTORY OF bladder suspenion x2 - REPAIR ROTATOR CUFF,ACUTE Rotator cuff repair bilat - TOTAL HIP REPLACEMENT Hip replacement, total - TOTAL KNEE REPLACEMENT Knee replacement, total - VAGINAL HYSTERECTOMY Hysterectomy, vaginal No family history on file. Social History Tobacco Use - Smoking status: Never Smoker - Smokeless tobacco: Never Used Substance Use Topics - Alcohol use: No - Drug use: No - docusate sodium (COLACE) 100 mg capsule, Take 100 mg by mouth as needed for Constipation., Disp: , Rfl: - ferrous sulfate 325 mg (65 mg iron) tablet, Take 325 mg by mouth three times daily with meals., Disp: , Rfl: - hydroCHLOROthiazide (HYDRODIURIL, ESIDRIX) 25 mg tablet, Take 25 mg by mouth once daily., Disp: , Rfl: - LISINOPRIL ORAL, Take 10 mg by mouth once daily., Disp: , Rfl: - metoprolol tartrate, short acting, (LOPRESSOR) 50 mg tablet, Take 50 mg by mouth twice daily., Disp: , Rfl: - LORazepam (ATIVAN) 0.5 mg, Take 0.5 mg by mouth twice daily., Disp: , Rfl: - zolpidem (AMBIEN) 5 mg tablet, Take 5 mg by mouth at bedtime as needed., Disp: , Rfl: - Methenamine Hippurate (HIPREX) 1 gram tablet, Take 1 g by mouth twice daily with meals., Disp: , Rfl: - albuterol (PROVENTIL) 2.5 mg /3 mL (0.083 %) nebulizer solution, Use 3 mL via nebulizer every 4 hours., Disp: , Rfl: - diclofenac sodium (VOLTAREN) 1 % topical gel, Apply to affected area four times daily., Disp: , Rfl: - methadone (DOLOPHINE) 10 mg tablet, Take 10 mg by mouth every 4 hours as needed. 10 mg at 12:00pm , 22:00 pm and 15 mg in the AM, Disp: , Rfl: - predniSONE (DELTASONE) 20 mg tablet, Take 40 mg by mouth once daily., Disp: , Rfl: - sertraline (ZOLOFT) 100 mg tablet, Take 100 mg by mouth once daily., Disp: , Rfl: - citalopram (CELEXA) 20 mg tablet, Take 20 mg by mouth once daily., Disp: , Rfl: - Gabapentin 300 mg Tab, Take 100 mg by mouth three times daily. , Disp: , Rfl: - meloxicam (MOBIC) 7.5 mg tablet, Take 7.5 mg by mouth once daily., Disp: , Rfl: - pravastatin 40 mg tablet, Take 40 mg by mouth once daily., Disp: , Rfl: - Multivitamins-Mineral s-Lutein (CENTRUM SILVER) Tab, Take 1 tablet by mouth once daily., Disp: , Rfl: - DULoxetine (CYMBALTA) 30 mg capsule, Take 1 a day for 2 weeks, then increase to 2 pills a day., Disp: 60 capsule, Rfl: 3 - LISINOPRIL-HYDROCHLOR OTHIAZIDE 10-12.5 mg ORAL per tablet, 1 tablet once daily., Disp: , Rfl: - metoprolol succinate ER (TOPROL XL) 50 mg 24 hr tablet, Take 50 mg by mouth once daily. , Disp: , Rfl: - oxyCODONE-acetaminoph en (PERCOCET) 5-325 mg ORAL tablet, Take 1 tablet by mouth every 4 hours as needed. , Disp: , Rfl: Current Facility-Administered Medications Medication Dose Route Frequency - metoprolol succinate ER 50 mg tab(s) (TOPROL XL) 50 mg ORAL DAILY - citalopram 20 mg tab(s) (CeleXA) 20 mg ORAL DAILY - DULoxetine 30 mg cap(s) (CYMBALTA) 30 mg ORAL DAILY - LORazepam 0.5 mg tab(s) (ATIVAN) 0.5 mg ORAL BID - sertraline 100 mg tab(s) (ZOLOFT) 100 mg ORAL DAILY - oxyCODONE-acetaminoph en 5-325 mg 1 tablet (PERCOCET) 1 tablet ORAL q 4 H PRN - ferrous sulfate 325 mg tab(s) 325 mg ORAL TID w MEALS - predniSONE 40 mg tab(s) (DELTASONE) 40 mg ORAL DAILY - albuterol 2.5 mg /3 mL (0.083 %) 2.5 mg (PROVENTIL) 3 mL INHALATION q 6 H PRN - piperacillin-tazobact am iv piggyback 3.375 g in dextrose (iso-osmotic) 50 mL (ZOSYN) 3.375 g INTRAVENOUS q 6 H - vancomycin dosing and monitoring per pharmacy OTHER As Directed - enoxaparin 40 mg injection (LOVENOX) 40 mg SUBCUTANEOUS DAILY - sodium chloride 0.9 % (flush) 3-5 mL (BD POSIFLUSH) 3-5 mL INTRAVENOUS q 12 H - ondansetron 4 mg tab(s) (ZOFRAN) 4 mg ORAL q 6 H PRN Or - ondansetron (PF) 4 mg injection (ZOFRAN) 4 mg INTRAVENOUS q 6 H PRN - acetaminophen 650 mg tab(s) (TYLENOL) 650 mg ORAL q 6 H PRN - atorvastatin 10 mg tab(s) (LIPITOR) 10 mg ORAL AT BEDTIME - Hydrochlorothiazide 12.5 mg 12.5 mg ORAL DAILY - lisinopril 10 mg tab(s) (ZESTRIL, PRINIVIL) 10 mg ORAL DAILY Allergies As of Date: 04/13/2020 Allergen Noted Reaction MACRODANTIN [NITROFURANTOIN] 12/22/2009 GI Upset MORPHINE SULFATE 12/22/2009 GI Upset Fully Assessed 04/13/2020 COMPLETE REVIEW OF SYSTEMS: Reviewed per history of present illness. All other systems systems reviewed and negative for any complaints Objective PHYSICAL EXAM: Patient Vitals for the past 24 hrs: BP Temp Temp src Pulse Resp SpO2 Height Weight 04/14/20 0935 ? 100.2 kg (220 lb 14.4 oz) 04/14/20 0741 156/60 37.1 ?C (98.8 ?F) Oral (!) 59 14 99 % ? ? 04/13/20 2300 ? 152.4 cm (5') 99.6 kg (219 lb 9.6 oz) 04/13/20 2232 147/60 37 ?C (98.6 ?F) Oral (!) 57 16 97 % ? ? Body mass index is 43.14 kg/m?. Gen. alert awake and oriented Neck negative, no adenopathy Chest clear to auscultation bilaterally no wheezes or crackles Abdomen soft, nontender, no organomegaly Cardiovascular last S1-S2 normal , no rubs murmurs or gallops Lower extremity no edema Neurologic nonfocal DATA: WBC (thou/cmm) Date Value 04/14/2020 8.02 RBC (mil/cmm) Date Value 04/14/2020 2.92 (L) Hemoglobin (g/dL) Date Value 07/28/2013 12.0 HGB (g/dL) Date Value 04/14/2020 9.0 (L) Hematocrit (%) Date Value 04/14/2020 29.0 (L) MCV (fl) Date Value 04/14/2020 99.3 (H) MCH (pg) Date Value 04/14/2020 30.8 MCHC (%) Date Value 04/14/2020 31.0 (L) RDW-CV (%) Date Value 12/26/2009 13.5 Platelet Count (thou/cmm) Date Value 04/14/2020 317 MPV (fl) Date Value 04/14/2020 9.6 Glucose (mg/dL) Date Value 04/14/2020 96 BUN (mg/dL) Date Value 04/14/2020 21 Creatinine (mg/dL) Date Value 04/14/2020 0.97 (H) Sodium (mmol/L) Date Value 04/14/2020 139 Potassium (mmol/L) Date Value 04/14/2020 3.9 Chloride (mmol/L) Date Value 04/14/2020 103 CO2 (mmol/L) Date Value 04/14/2020 25 Protein, Total (g/dL) Date Value 07/26/2013 6.5 Albumin (g/dL) Date Value 07/26/2013 3.5 Calcium (mg/dL) Date Value 04/14/2020 8.9 Alkaline Phosphatase (U/L) Date Value 07/26/2013 59 Bilirubin, Total (mg/dL) Date Value 07/26/2013 0.5 AST (U/L) Date Value 07/26/2013 19 ALT (U/L) Date Value 07/26/2013 36 URINALYSIS pH, Arterial Date Value Ref Range Status 12/26/2009 7.47 (H) 7.35 - 7.45 Final Specific Sigel, Ur Date Value Ref Range Status 07/23/2013 1.017 1.005 - 1.030 Final Glucose, Urine Date Value Ref Range Status 07/23/2013 NEGATIVE Negative Final Bilirubin, Urine Date Value Ref Range Status 07/23/2013 NEGATIVE Negative Final Ketones, Urine Date Value Ref Range Status 07/23/2013 NEGATIVE Negative Final Hemoglobin/Blood,Ur Date Value Ref Range Status 12/23/2009 Negative NEGAT Final Protein, Urine Date Value Ref Range Status 07/23/2013 NEGATIVE Negative Final Urobilinogen, Urine Date Value Ref Range Status 07/23/2013 1.0 0.0 - 1.0 EU/dL Final WBC, Urine Date Value Ref Range Status 07/23/2013 0.9 0.0 - 5.0 /hpf Final Diagnostic tests reviewed for today's visit: Assessment and Plan: T12-L1 osteomyelitis vs discitis vs malignancy: I will review his his imaging with radiology to see if there is any concern for malignancy. Will proceed with biopsy if recommended by them. Await ID eval Anemia: Check iron studies, b12 and folate levels UTI: On antibiotics COPD SIGNATURE: Leyda Azar MD PATIENT NAME: Patricia Hawley DATE: April 14, 2020 TIME: 11:07 AM PAGER: [phone] [facility] CONSULT HNO ID: [id number] Author: Giovani Shin Service: Infectious Disease Author Type: Physician Type: Consults Filed: 04/14/2020 4:58 PM Note Text: INITIAL CONSULT INFECTIOUS DISEASE SERVICE DATE: 04/14/2020 SERVICE TIME: 11:01 AM We were asked to evaluate . Patricia Hawley, a 74 year old yo female by Laila Tonyar for Patient comes from [facility], all documents in the paper chart. Has t12-L1 superinfection question with discitis vs OM, also possibly soft tissue mass. Our findings and recommendations will be communicated through the shared medical record. ASSESSMENT: 1. UTI + hydronephrosis 2. 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 Will change to ceftriaxone, d/c zosyn + vancomycin. Will review MRI lumbar with radiologist, likely chronic given extensive investigation in the past Estimated Creatinine Clearance: 54.1 mL/min (A) (based on SCr of 0.97 mg/dL (H)). RECOMMENDATIONS: - d/c zosyn + vancomycin - start ceftriaxone - will Compare prior mri with radiologist --> likely chronic with extensive infectious investigation in the past SUBJECTIVE: HPI: 74F h/o spinal stenosis s/p T12-L5 decompressive bilateral laminectomy with foraminotomies from T12-L5 for decompression. presented to [facility] on 04/12/20 for R flank pain found to have UTI + hydronephrosis, transferred to [facility] 04/14/20 because of worsening paresthesias of legs, MRI c/t/l showed T12-L1 OM vs discitis vs malignancy. When chart reviewed, patient had was seen here at [facility] 05/08/2013 because of worsening back pain and urinary retention. Per discharge summary, patient had an MRI of the lumbar spine with and without contrast, which shows advanced multilevel degenerative changes involving the lower thoracic and lumbar spine with severe central canal stenosis at T12 and L1 to T2 to T3 disk levels. There are associated compression and abnormal intramedullary signal hyperintensity consistent with cord edema, ischemia and myelomalacia. The patient was transferred to [facility] for further management. She had a CT of the lumbar spine without contrast done, which was consistent with diskitis/osteomyeliti s. The patient did not have any other signs of infection. She was seen by neurosurgery as well as infectious disease. There was a concern for epidural abscess as patient did receive epidural injection for chronic back pain. She had a T12 to L5 laminectomy with foraminotomies by neurosurgery. The blood cultures as well as cultures from the back tissue were negative for any growth. She also had AFB cultures done, which were negative. This patient was not treated with any IV antibiotics during the hospitalization. Her pain and radiculopathy were much improved after the surgery. She still had some paresthesias on her lower extremities as well as some urinary incontinence, which is chronic per patient. She was seen by physical therapy and recommended acute inpatient rehabilitation at the time of discharge. Then again 11/23/15 an MRI was done and showed abnormal signal intensity at the T12-L1 disc. CT biopsy was done 12/16/15 and fungal/afb/rickey cx neg. CURRENT ANTIBIOTICS: Zosyn vancomycin Current other medications reviewed. Current Facility-Administered Medications Medication Dose Route Frequency - metoprolol succinate ER 50 mg tab(s) (TOPROL XL) 50 mg ORAL DAILY - citalopram 20 mg tab(s) (CeleXA) 20 mg ORAL DAILY - DULoxetine 30 mg cap(s) (CYMBALTA) 30 mg ORAL DAILY - LORazepam 0.5 mg tab(s) (ATIVAN) 0.5 mg ORAL BID - sertraline 100 mg tab(s) (ZOLOFT) 100 mg ORAL DAILY - oxyCODONE-acetaminoph en 5-325 mg 1 tablet (PERCOCET) 1 tablet ORAL q 4 H PRN - ferrous sulfate 325 mg tab(s) 325 mg ORAL TID w MEALS - predniSONE 40 mg tab(s) (DELTASONE) 40 mg ORAL DAILY - albuterol 2.5 mg /3 mL (0.083 %) 2.5 mg (PROVENTIL) 3 mL INHALATION q 6 H PRN - piperacillin-tazobact am iv piggyback 3.375 g in dextrose (iso-osmotic) 50 mL (ZOSYN) 3.375 g INTRAVENOUS q 6 H - vancomycin dosing and monitoring per pharmacy OTHER As Directed - enoxaparin 40 mg injection (LOVENOX) 40 mg SUBCUTANEOUS DAILY - sodium chloride 0.9 % (flush) 3-5 mL (BD POSIFLUSH) 3-5 mL INTRAVENOUS q 12 H - ondansetron 4 mg tab(s) (ZOFRAN) 4 mg ORAL q 6 H PRN Or - ondansetron (PF) 4 mg injection (ZOFRAN) 4 mg INTRAVENOUS q 6 H PRN - acetaminophen 650 mg tab(s) (TYLENOL) 650 mg ORAL q 6 H PRN - atorvastatin 10 mg tab(s) (LIPITOR) 10 mg ORAL AT BEDTIME - Hydrochlorothiazide 12.5 mg 12.5 mg ORAL DAILY - lisinopril 10 mg tab(s) (ZESTRIL, PRINIVIL) 10 mg ORAL DAILY PAST MEDICAL HISTORY Diagnosis Date - Dysthymic disorder Depression (non-psychotic) - Obstructive sleep apnea - Unspecified essential hypertension Essential hypertension PAST SURGICAL HISTORY Procedure Laterality Date - LAMINECTOMY,CERVICAL Laminectomy, cervical fusion x2 - PAST SURGICAL HISTORY OF bladder suspenion x2 - REPAIR ROTATOR CUFF,ACUTE Rotator cuff repair bilat - TOTAL HIP REPLACEMENT Hip replacement, total - TOTAL KNEE REPLACEMENT Knee replacement, total - VAGINAL HYSTERECTOMY Hysterectomy, vaginal Social History Tobacco Use - Smoking status: Never Smoker - Smokeless tobacco: Never Used Substance Use Topics - Alcohol use: No - Drug use: No No family history on file. ALLERGIES Allergen Reactions - Macrodantin [Nitrof* GI Upset - Morphine Sulfate GI Upset OBJECTIVE: REVIEW OF SYSTEMS: Unable to elicit, patient sleepy Spoke with daughter, poa PHYSICAL EXAM: BP 156/60 Pulse (!) 59 Temp 37.1 ?C (98.8 ?F) (Oral) Resp 14 Ht 152.4 cm (5') Wt 100.2 kg (220 lb 14.4 oz) SpO2 99% BMI 43.14 kg/m? GENERAL APPEARANCE: Comfortable SKIN: No rashes or lesions LUNGS: Normal breath sounds, clear to auscultation, no wheezes, or crackles HEART:RRR, no murmurs ABDOMEN: Soft, non tender, BS+ EXTREMITIES: No edema or tenderness NEURO: no involuntary motions LABS: WBC (thou/cmm) Date Value 04/14/2020 8.02 07/28/2013 5.1 07/26/2013 6.7 07/24/2013 7.1 05/11/2013 7.8 Creatinine (mg/dL) Date Value 04/14/2020 0.97 07/26/2013 1.01 07/24/2013 0.78 07/24/2013 0.68 05/09/2013 0.81 Lab Results Component Value Date NEUTP 81.0 12/26/2009 ABSNEUT 5.54 12/26/2009 LYMPHP 16.0 12/26/2009 ABSLYMPH 1.09 12/26/2009 ABSMONO 0.21 12/26/2009 EODINP 0.0 12/26/2009 ABSEOSIN 0.00 12/26/2009 BASOP 0.0 12/26/2009 ABSBASO 0.00 12/26/2009 Lab Results Component Value Date PLT 317 04/14/2020 HB 9.0 04/14/2020 HB 12.0 07/28/2013 HCT 29.0 04/14/2020 ALB 3.5 07/26/2013 CA 8.9 04/14/2020 TBILI 0.5 07/26/2013 ALKPHOS 59 07/26/2013 AST 19 07/26/2013 GLUC 96 04/14/2020 BUN 21 04/14/2020 NA 139 04/14/2020 K 3.9 04/14/2020 CHLOR 103 04/14/2020 CO2 25 04/14/2020 ANION 11 04/14/2020 ALT 36 07/26/2013 WSR (mm/Hr) Date Value 12/22/2009 36 Sed Rate, Westergren (mm/hr) Date Value 07/26/2013 23 CRP (mg/dL) Date Value 07/26/2013 <0.29 No results found for: VANCOPRE, VANCORA MICROBIOLOGY: Positive Micro-30 Days No results found for the last 720 hours. IMAGING: MRI lumbar : Wedge-shaped mixed signal material identified in the T12-L1 level is most likely combination of fibrosis and chronic seroma/proteinaceous material. Some serpiginous low signal material is identified at the periphery of this complex collection which was more well formed on the prior MRI and appears to be surgically intentionally placed material. A fluid/fluid level is seen within this material. There is mild peripheral enhancement around this material/complex fluid on the postcontrast study likely due to the investing capsule or fibrosis. Enhancement is also seen in circumferential fibrotic material of the epidural space which contributes to mass effect on the thecal sac. Mild enhancement is also present in the endplates and disc of T11-T12 with no demonstrated cortical erosion or bony destruction or intradiscal fluid; acute inflammation and possibly early osteomyelitis suspected at this level. Retrolisthesis of the superior T12 fragment of 1.9 cm noted. Moderate central canal stenosis is present at the T12-L1 level. A posterior decompressive defect is seen. The facet joints at this level are moderately severe bilateral foraminal stenosis with nerve root compression is present at the T12-L1 level. Hypertrophied. DATA: Diagnostic Tests Reviewed for Today's Visit: Most recent labs Most recent imaging Thank you very much for inviting us to participate in the care of this patient. SIGNATURE: Giovani Shin MD PATIENT NAME: Patricia Hawley DATE: April 14, 2020 TIME: 11:01 AM PAGER/CONTACT #: [phone] [facility] CONSULT PROGon 04-14-2020 CONSULT PROG HNO ID: [id number] Author: Federica Celis (Pharmacist) Service: Pharmacy Author Type: Pharmacist Type: Consult Progress Note Filed: 04/14/2020 5:13 PM Note Text: PHARMACY VANCOMYCIN DOSING NOTE Patient Name: Patricia Hawley Admission Date: 04/13/2020 Date of Consult: 04/14/2020 Time of Consult: 5:13 PM Indication: Bone AND joint infection Goal Range: 10-20 mcg/mL RECOMMENDATIONS/PLAN: Pharmacy consulted for vancomycin dosing for Patricia Hawley, a 74 year old, female who is being treated with vancomycin for bone and joint infection. The infectious disease service has discontinued vancomycin therapy. Pharmacy vancomycin dosing service will sign off. Thank you for allowing us to participate in this patient's care. Please contact pharmacy if questions. FEDERICA CELIS, PHARMACIST [facility] CONSULT PROG HNO ID: [id number] Author: Fe Wen (Pharmacist) Service: Pharmacy Author Type: Pharmacist Type: Consult Progress Note Filed: 04/14/2020 7:21 AM Note Text: PHARMACY VANCOMYCIN DOSING NOTE Patient Name: Patricia aHwley Admission Date: 04/13/2020 Date of Consult: 04/14/2020 Time of Consult: 7:20 AM Indication: Bone AND joint infection Goal Range: 10-20 mcg/mL RECOMMENDATIONS/PLAN: Pharmacy consulted for vancomycin dosing for Patricia Hawley, a 74 year old, female who is being treated with vancomycin for Bone and Joint Infection. 1. Patient is currently ordered Vancomycin 1.5 g IV q24h. Today is day One of therapy with first dose given @ 0200. 2. No vancomycin level has been drawn for this dosing regimen. 3. The present dose of vancomycin is the recommended dosage for this patient at this time. Continue therapy as prescribed. 4. The next vancomycin level will be ordered for 04-17-2020 @ 0100 unless clinically indicated sooner. (Pharmacy will order) We will follow patient renal function, vancomycin levels and doses with you during the course of therapy. Additional recommendations will appear in follow up notes. If you have any questions[place] [phone]. Age: [age] year old Allergies: ALLERGIES Allergen Reactions - Macrodantin [Nitrof* GI Upset - Morphine Sulfate GI Upset Last 3 Encounter Wt Readings: Date: Wt: 04/13/2020 99.6 kg (219 lb 9.6 oz) 05/18/2019 89.8 kg (198 lb) 12/04/2012 78.1 kg (172 lb 3.2 oz) Last 1 Encounter Ht Readings: Date: Ht: 04/13/2020 152.4 cm (5') CrCl: 53.9 mL/min Temp (24hrs), Av ?C (98.6 ?F), Min:37 ?C (98.6 ?F), Max:37 ?C (98.6 ?F) - Current Temp: 37 ?C (98.6 ?F) Labs BUN (mg/dL) Date Value 04/14/2020 21 07/26/2013 27 (H) 07/24/2013 26 (H) Creatinine (mg/dL) Date Value 04/14/2020 0.97 (H) 07/26/2013 1.01 (H) 07/24/2013 0.78 WBC (thou/cmm) Date Value 04/14/2020 8.02 07/28/2013 5.1 07/26/2013 6.7 Vancomycin Levels: No results found for: MARIALUISA WEN, PHARMACIST Normal [facility] Cult Bloodon 04-14-2020 Cult Blood Test performed at [facility] No growth Normal [facility] Comment on above: Performed By: #### C _BLO #### [facility] [address] [place] [address] Ferritinon 04-14-2020 Ferritin [Mass/Vol] 85.2 ng/mL Normal 14.7-205.1 [facility] Comment on above: Result Comment: Alla ents taking a biotin dose of up to 5 mg/day should refrain from taking biotin for 4 hours prior to sample collection. Patients taking a biotin dose of 5 to 10 mg/day should refrain from taking biotin for 8 hours prior to sample collection. Patients taking a biotin dose > 10 mg/day should consult with their physician or the laboratory prior to having a sample taken. Clinicians should consider biotin interference as a source of error, when clinically suspicious of the laboratory result. Performed By: #### F ERR2 #### [facility] [address] [place], [place] [address] Folateon 04-14-2020 Folate >20.0 Normal > 4.7 [facility] Comment on above: Result Comment: A re sult of > 20 ng/mL is not necessarily indicative of a pathologic or treatable condition; it reflects a limitation of the test methodology. This assay?s reference range is 4.8 to 24.2 ng/mL. This test is suitable for detection of folate deficiency. Patients taking a biotin dose of up to 5 mg/day should refrain from taking biotin for 4 hours prior to sample collection. Patients taking a biotin dose of 5 to 10 mg/day should refrain from taking biotin for 8 hours prior to sample collection. Patients taking a biotin dose > 10 mg/day should consult with their physician or the laboratory prior to having a sample taken. Clinicians should consider biotin interference as a source of error, when clinically suspicious of the laboratory result. Performed By: #### F OL2 #### [address] [address] HISTORY PHYSICALon 0 HISTORY PHYSICAL HNO ID: [id number] Author: Raj Pinto Service: Hospital Medicine Author Type: Physician Type: HANDP Filed: 04/14/2020 1:58 AM Note Text: DEPARTMENT OF HOSPITAL MEDICINE HISTORY AND PHYSICAL EXAM SERVICE DATE: 04/14/2020 SERVICE TIME: 1:00 AM Primary Care Physician: Nahun Casillas MD NIGHT AND WEEKEND COVERAGE: POYEN COVERAGE: From 7am - 7pm, please call [phone] After 7pm, please call cross cover pager #[phone] Subjective CHIEF COMPLAINT: Right flank pain HPI: 74yo F is a transfer from [facility], refer to paper chart for details including lab and radiology results. Patient was admitted on 04/12/2020 at [facility] for right sided 8/10 flank/back pain. Patient initially was found to have a UTI with moderate hydronephrosis therefore was put on IV Rocephin 2g. Patient was negative for COVID-19. After this the patient had worsening right sided back pain with paresthesias of her legs that were getting worse. Her back pain started on Saturday this week and persistently got worse. Patient had a CT abdomen/pelvis that mentioned of the mild to moderate bilateral hydronephrosis but also T12 vertebrae destruction and up to the superior aspect of L1. Patient ended up having an MRI of the cervical, thoracic and lumbar spine and was found to have mainly T12-L1 superinfection probably early OM vs discitis and possible malignant infiltration of T12-L1 which was less favored. Patient then was seen by Oncology there and transferred here. Currently patient is in no severe distress stating that lying down helps her with less pain. No chest pain, no nausea, no vomiting, no headaches, no fever/chills. [facility] and is wheelchair bound. Past medical history as below as well has COPD, HTN, HLD, Anxiety, Depression, DDD, PVD Past surgical history as below. Family history of Father HTN, Mother DM, HTN, Sistern HTN, Brother with DM and Cancer Past social history as below. PAST MEDICAL HISTORY Diagnosis Date - Dysthymic disorder Depression (non-psychotic) - Obstructive sleep apnea - Unspecified essential hypertension Essential hypertension PAST SURGICAL HISTORY Procedure Laterality Date - LAMINECTOMY,CERVICAL Laminectomy, cervical fusion x2 - PAST SURGICAL HISTORY OF bladder suspenion x2 - REPAIR ROTATOR CUFF,ACUTE Rotator cuff repair bilat - TOTAL HIP REPLACEMENT Hip replacement, total - TOTAL KNEE REPLACEMENT Knee replacement, total - VAGINAL HYSTERECTOMY Hysterectomy, vaginal Social History Tobacco Use - Smoking status: Never Smoker - Smokeless tobacco: Never Used Substance Use Topics - Alcohol use: No - Drug use: No MEDICATIONS: Reviewed - docusate sodium (COLACE) 100 mg capsule, Take 100 mg by mouth as needed for Constipation., Disp: , Rfl: - ferrous sulfate 325 mg (65 mg iron) tablet, Take 325 mg by mouth three times daily with meals., Disp: , Rfl: - hydroCHLOROthiazide (HYDRODIURIL, ESIDRIX) 25 mg tablet, Take 25 mg by mouth once daily., Disp: , Rfl: - LISINOPRIL ORAL, Take 10 mg by mouth once daily., Disp: , Rfl: - metoprolol tartrate, short acting, (LOPRESSOR) 50 mg tablet, Take 50 mg by mouth twice daily., Disp: , Rfl: - LORazepam (ATIVAN) 0.5 mg, Take 0.5 mg by mouth twice daily., Disp: , Rfl: - zolpidem (AMBIEN) 5 mg tablet, Take 5 mg by mouth at bedtime as needed., Disp: , Rfl: - Methenamine Hippurate (HIPREX) 1 gram tablet, Take 1 g by mouth twice daily with meals., Disp: , Rfl: - albuterol (PROVENTIL) 2.5 mg /3 mL (0.083 %) nebulizer solution, Use 3 mL via nebulizer every 4 hours., Disp: , Rfl: - diclofenac sodium (VOLTAREN) 1 % topical gel, Apply to affected area four times daily., Disp: , Rfl: - methadone (DOLOPHINE) 10 mg tablet, Take 10 mg by mouth every 4 hours as needed. 10 mg at 12:00pm , 22:00 pm and 15 mg in the AM, Disp: , Rfl: - predniSONE (DELTASONE) 20 mg tablet, Take 40 mg by mouth once daily., Disp: , Rfl: - sertraline (ZOLOFT) 100 mg tablet, Take 100 mg by mouth once daily., Disp: , Rfl: - citalopram (CELEXA) 20 mg tablet, Take 20 mg by mouth once daily., Disp: , Rfl: - Gabapentin 300 mg Tab, Take 100 mg by mouth three times daily. , Disp: , Rfl: - meloxicam (MOBIC) 7.5 mg tablet, Take 7.5 mg by mouth once daily., Disp: , Rfl: - pravastatin 40 mg tablet, Take 40 mg by mouth once daily., Disp: , Rfl: - Multivitamins-Mineral s-Lutein (CENTRUM SILVER) Tab, Take 1 tablet by mouth once daily., Disp: , Rfl: - DULoxetine (CYMBALTA) 30 mg capsule, Take 1 a day for 2 weeks, then increase to 2 pills a day., Disp: 60 capsule, Rfl: 3 - LISINOPRIL-HYDROCHLOR OTHIAZIDE 10-12.5 mg ORAL per tablet, 1 tablet once daily., Disp: , Rfl: - metoprolol succinate ER (TOPROL XL) 50 mg 24 hr tablet, Take 50 mg by mouth once daily. , Disp: , Rfl: - oxyCODONE-acetaminoph en (PERCOCET) 5-325 mg ORAL tablet, Take 1 tablet by mouth every 4 hours as needed. , Disp: , Rfl: ALLERGIES Allergen Reactions - Macrodantin [Nitrof* GI Upset - Morphine Sulfate GI Upset REVIEW OF SYSTEM: General: no fatigue, weakness, no fever/chills HEENT: no cough, no nasal congestion, no sore throat Respiratory: no cough, no shortness of breath, no wheezing, no hemoptysis, Cardio: no chest pain, no exertional dyspnea, no leg swelling, no palpitations GI: no nausea, no vomiting, no diarrhea, no abdominal pain : no dysuria, no frequency, no incontinence Musculoskeletal: no joint pain, no joint swelling, no muscle pain, back pain Skin: no rashes, no ulcers, no itching Endocrine: no cold nor heat intolerance, no polyuria, no goiter Neuro: no headaches, no syncope, no paralysis, no seizures, no tremors Objective PHYSICAL EXAM: BP 147/60 Pulse 57 Temp (Src) 98.6 (Oral) Resp 16 Ht 5' 0 (1.52m) Wt 219 lb 9.6 oz (99.6kg) SpO2 97% BMI 42.89 kg/(m2). O2 Therapy: Room Air Physical Exam Performed: GENERAL: Alert, no distress, cooperative, morbidly obese SKIN: Skin color, texture, turgor normal. No rashes or lesions. EYES: PERRLA, EOMI LUNGS: Lungs clear to auscultation, Good diaphragmatic excursion, no wheezing, no crackles CARDIAC: Normal S1 and S2; no rubs, murmurs, or gallops, RRR ABDOMEN: Abdomen soft, non-tender, BS normal, No masses or organomegaly EXTREMITIES: no edema, clubbing or skin discoloration. Good capillary refill., No ulcers NEURO: wheelchair bound, Reflexes normal and symmetric. Sensation grossly intact, Cranial nerves II-XII intact PULSES: 2+ radial, 2+ carotid Lines, Drains, and Airways Line Peripheral 04/13/202299 Admission to Hospital Left Antecubital 20 Gauge less than 1 day Peripheral 04/13/202299 Admission to Hospital Right Wrist 20 Gauge less than 1 day DATA: Diagnostic tests reviewed for today's visit: Most recent labs and imaging results. WBC 10.3, Hgb 9.5, Plt 326, Na 138, K 4.4, BUN 37, Creatinine 1.00, Glucose 98, Ca 8.9, 27, ALT 26, Alk phos 75, Albumin 2.9 UA Nitrite positive, LE large, WBC 50-100 CT Abdomen/Pelvis with contrast: - destruction of the T12 vertebrae and the superior aspect of the L1 vertebrae - Mild bilateral hydronephrosis and hydroureter - cystocele with diffuse bladder wall thickening MRI Cervical spine: - Mild to moderate central canal stenosis without cord compression C3-C4, C6-C7, and C7-T1 MRI Lumbar and Thoracic with and without contrast: - complex chronic process with possible superinfection at T12-L1 probably early OM and discitis at T11-T12. 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 as well lower differential of malignancy 2) UTI Chronic: 3) COPD without exacerbation 4) Chronic hypoxic respiratory failure on 2L basline 5) HTN 6) HLD 7) Depression 8) Iron deficiency anemia 9) Anxiety Plan: - Blood cultures - IV Zosyn and Vancomycin empirically - ID consult - Hem/Onc consult - PTOT - CBC, BMP tomorrow - Continue home medications of zoloft, metoprolol, ativan, lisinopril, HCTZ, ferrous sulfate, cymbalta, celexa, atorvastatin Full Code Medication and Non-Pharmacologic VTE Prophylaxis/Anticoagu lants Anticoagulant AND Antiplatelet Medications (From admission, onward) Start Dose Route Frequency Ordered Stop 04/14/20 0900 enoxaparin 40 mg injection (LOVENOX) (Medical Risk Categories) 40 mg SUBCUTANEOUS DAILY 04/14/20 0137 -- 04/14/20144 vte non-pharmacologic prophylaxis - none indicated (in,oh) 04/14/20 014 activity - mobilize patient (in,az) VTE Prophylaxis: VTE prophylaxis appropriate Disposition: SNF Plan of care discussed with: Provider, RN, Patient SIGNATURE: Raj Pinto MD PATIENT NAME: Patricia Hawley DATE: April 14, 2020 TIME: 1:37 AM PAGER/CONTACT #: [phone] [id number] Normal [facility] Hemogramon 04-14-2020 Erythrocyte distribution width (RBC) [Ratio] 12.7 % Normal 11.7-14.4 [facility] Comment on above: Performed By: #### C BC1 #### [facility] [address] [address] Hematocrit (Bld) [Volume fraction] 29.0 % Low 34.1-44.9 [facility] Comment on above: Performed By: #### C BC1 #### [facility] [address] [place], [place] [address] Hemoglobin (Bld) [Mass/Vol] 9.0 g/dL Low 11.2-15.7 [facility] Comment on above: Performed By: #### C BC1 #### [facility] [address] [place] [address] MCH (RBC) [Entitic mass] 30.8 pg Normal 25.6-32.2 [facility] Comment on above: Performed By: #### C BC1 #### [facility] [address] [place] [address] MCHC (RBC) [Mass/Vol] 31.0 % Low 31.6-34.8 [facility] Comment on above: Performed By: #### C BC1 #### [facility] [address] [place] [address] MCV (RBC) [Entitic vol] 99.3 fL High 79.4-94.8 [facility] Comment on above: Performed By: #### C BC1 #### [facility] [address] [place], [place] [address] Platelet mean volume (Bld) [Entitic vol] 9.6 fL Normal 9.4-12.3 [facility] Comment on above: Performed By: #### C BC1 #### [facility] [address] [place], [place] [address] Platelets (Bld) [#/Vol] 317 thou/cmm Normal 182-369 [facility] Comment on above: Performed By: #### C BC1 #### [facility] [address] [place], [place] [address] RBC (Bld) [#/Vol] 2.92 mil/cmm Low 3.93-5.22 [facility] Comment on above: Performed By: #### C BC1 #### [facility] [address] [place], [place] [address] RDW SD 45.9 fl Normal 36.4-46.3 [facility] Comment on above: Performed By: #### C BC1 #### [facility] [address] [place], [place] [address] WBC (Bld) [#/Vol] 8.02 thou/cmm Normal 3.98-10.04 [facility] Comment on above: Performed By: #### C BC1 #### [facility] [address] [place] [id number] Iron % Saturationon 04-14-20 20 Iron % Saturation 22 % Normal 15-[address] [facility] Comment on above: Performed By: #### I RONS #### [facility] [address] [place] [id number] Iron Serum 60 ug/dL Normal 41-186 [facility] Comment on above: Performed By: #### I RONS #### [facility] [address] [place] [id number] Total Iron Binding Cap. 272 ug/dL Normal 232-386 [facility] Comment on above: Performed By: #### I RONS #### [facility] [address] [place] [id number] PROGRESSon 04-14-2020 PROGRESS HNO ID: [id number] Author: Jasmina Oakley Service: Hospital Medicine Author Type: Physician Type: Progress Notes Filed: 04/19/2020 8:17 PM Note Text: DEPARTMENT OF HOSPITAL MEDICINE PROGRESS NOTE SERVICE DATE: 04/14/2020 SERVICE TIME: 12:35 PM Hospital Medicine/Primary Attending: Jasmina Oakley MD NIGHT AND WEEKEND COVERAGE: After 7pm please page [phone] CHIEF COMPLAINT: back pain. UTI. Discitis/ OM SUBJECTIVE: Reports having fever and headache around 3 weeks ago. She was tested negative for COVID. Around the same time she has been having worsening of pain in the left flank as well as lumbar spinal area with radiation to the bilateral legs. She always has chronic back pain with pain especially in the right leg as well as numbness in both legs. Denies any saddle anesthesia. At baseline, she is wheelchair-bound. She does not walk. She had history of surgery likely laminectomy in the lumbar spine and multiple screws in cervical spine. Currently she reports no headache or lightheadedness. Denies any chest pain or cough or shortness of breath. She reports occasional dark-colored vomitus. OBJECTIVE: PHYSICAL EXAM: BP 165/64 Pulse 59 Temp (Src) 98.8 (Oral) Resp 16 Ht 5' 0 (1.52m) Wt 220 lb 14.4 oz (100.2kg) SpO2 98% BMI 43.14 kg/(m2). O2 Therapy: Nasal Cannula, Liters: 3 GENERAL: Alert, no distress, cooperative, morbidly obese SKIN: Skin color, texture, turgor normal. No rashes or lesions. OROPHARYNX: Lips, mucosa, and tongue normal. Teeth and gums normal. Oropharynx normal. LUNGS: Lungs clear to auscultation, Air entry good, Unlabored breathing. CARDIAC: Normal S1 and S2; no rubs, murmurs, or gallops ABDOMEN: Abdomen soft, non-tender, non-distended, BS normal EXTREMITIES: no edema. BACK: Old healed scar in the lumbar spine. No tenderness. NEURO: AA. Oriented to person and partially to place and time. Strength- weakness in bilateral dorsiflexion and plantar flexors . Sensation ? Decreased bilateral legs and feet. Reflex decrease in bilateral patella MEDICATIONS: Current Facility-Administered Medications Medication Dose Route Frequency - metoprolol succinate ER 50 mg tab(s) (TOPROL XL) 50 mg ORAL DAILY - citalopram 20 mg tab(s) (CeleXA) 20 mg ORAL DAILY - DULoxetine 30 mg cap(s) (CYMBALTA) 30 mg ORAL DAILY - LORazepam 0.5 mg tab(s) (ATIVAN) 0.5 mg ORAL BID - sertraline 100 mg tab(s) (ZOLOFT) 100 mg ORAL DAILY - oxyCODONE-acetaminoph en 5-325 mg 1 tablet (PERCOCET) 1 tablet ORAL q 4 H PRN - ferrous sulfate 325 mg tab(s) 325 mg ORAL TID w MEALS - predniSONE 40 mg tab(s) (DELTASONE) 40 mg ORAL DAILY - albuterol 2.5 mg /3 mL (0.083 %) 2.5 mg (PROVENTIL) 3 mL INHALATION q 6 H PRN - piperacillin-tazobact am iv piggyback 3.375 g in dextrose (iso-osmotic) 50 mL (ZOSYN) 3.375 g INTRAVENOUS q 6 H - vancomycin dosing and monitoring per pharmacy OTHER As Directed - enoxaparin 40 mg injection (LOVENOX) 40 mg SUBCUTANEOUS DAILY - sodium chloride 0.9 % (flush) 3-5 mL (BD POSIFLUSH) 3-5 mL INTRAVENOUS q 12 H - ondansetron 4 mg tab(s) (ZOFRAN) 4 mg ORAL q 6 H PRN Or - ondansetron (PF) 4 mg injection (ZOFRAN) 4 mg INTRAVENOUS q 6 H PRN - acetaminophen 650 mg tab(s) (TYLENOL) 650 mg ORAL q 6 H PRN - atorvastatin 10 mg tab(s) (LIPITOR) 10 mg ORAL AT BEDTIME - Hydrochlorothiazide 12.5 mg 12.5 mg ORAL DAILY - lisinopril 10 mg tab(s) (ZESTRIL, PRINIVIL) 10 mg ORAL DAILY DATA: Diagnostic tests reviewed for today's visit: CBC, Coags, BMP, Mg, Phos Recent Labs 04/14/20 0205 WBC 8.02 HB 9.0* HCT 29.0* PLT 317 NA 139 K 3.9 CHLOR 103 CO2 25 BUN 21 CREAT 0.97* GLUC 96 CA 8.9 Liver Function, Amylase, AND Lipase Cardiac Enzymes Heme: No results for input(s): RETICP, ABSRETIC, LD, ANTONIETTA, FE, TIBC, TRANSFERSAT in the last 24 hours. No results found for: UALBCR Assessment/Plan Patient Active Hospital Problem List: UTI (urinary tract infection) (04/14/2020) ASSESSMENT: Mrs Hawley transfer most of hospital for the concern of vertebral discitis/osteomyeliti s. She has: 1.??Chronic destruction at T12-L1 and T11-T12 level: Suspect infectious process S/p MRI cervical, thoracic, lumbar spine at OSH- results reviewed. WBC normal. CRP elevated at 27 On vancomycin and Zosyn.. On percocet for pain ID consulted. 2. UTI pyelonephritis: Urinalysis was positive for pyuria at OSH. 3. History of lumbar and cervical spine surgery: Has hardware/screws in cervical spine 4. Debility at baseline: Uses a wheelchair all the time baseline. Resides in a NH Chronic medical conditions 1. Hypertension 2. Anemia 3. Chronic pain syndrome 4. COPD 5. Chronic hypoxic respiratory failure 2 L nasal cannula 6. Hyperlipidemia 7. 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 ? Indication. PLAN: Continue current abx. Await ID input. Likely would need biopsy of the affected vertebrae. Pain control. Discussed with microbiology lab at [facility]. Urine culture is growing Escherichia coli semiresistant but sensitive to Zosyn per lab personnel. She is going to fax the result to our fax here. VTE Prophylaxis: Lovenox 40mg Sub Q Daily Disposition: Extended Care Facility Plan of care discussed with: Provider, RN, Patient and Family/Significant Other: dtr and POA SIGNATURE: Jasmina Oakley MD PATIENT NAME: Patricia Hawley DATE: April 14, 2020 TIME: 12:35 PM PAGER/CONTACT #: [phone] [facility] PROGRESS HNO ID: [id number] Author: Leyda Azar Service: Hematology/Oncology Author Type: Physician Type: Progress Notes Filed: 04/14/2020 12:29 PM Note Text: Imaging reviewed with Dr Dodie ORTIZ.Findings T12-L1 suspicious for infectious process unlikely malignancy. If ok by ID can consider aspiration for diagnostic purpose. Will discuss with Dr Malina Azar MD [facility] Vitamin B12on 04-14-2020 Cobalamin (Vitamin B12) [Mass/Vol] 404 pg/mL Normal 232-1245 [facility] Comment on above: Result Comment: Alla ents taking a biotin dose of up to 5 mg/day should refrain from taking biotin for 4 hours prior to sample collection. Patients taking a biotin dose of 5 to 10 mg/day should refrain from taking biotin for 8 hours prior to sample collection. Patients taking a biotin dose > 10 mg/day should consult with their physician or the laboratory prior to having a sample taken. Clinicians should consider biotin interference as a source of error, when clinically suspicious of the laboratory result. Performed By: #### B 12 #### [place] [id number] HOSPon 04-13-2020 HOSP Patient:Patricia Hawley MRN: Height:5' 0(1.524 m) Weight:216 lb 11.2 oz (98.294 kg) Outpatient Medications as of 04/19/20: docusate sodium (COLACE) 100 mg capsule ferrous sulfate 325 mg (65 mg iron) tablet hydroCHLOROthiazide (HYDRODIURIL, ESIDRIX) 25 mg tablet LISINOPRIL ORAL metoprolol tartrate, short acting, (LOPRESSOR) 50 mg tablet LORazepam (ATIVAN) 0.5 mg zolpidem (AMBIEN) 5 mg tablet Methenamine Hippurate (HIPREX) 1 gram tablet albuterol (PROVENTIL) 2.5 mg /3 mL (0.083 %) nebulizer solution diclofenac sodium (VOLTAREN) 1 % topical gel methadone (DOLOPHINE) 10 mg tablet predniSONE (DELTASONE) 20 mg tablet sertraline (ZOLOFT) 100 mg tablet citalopram (CELEXA) 20 mg tablet Gabapentin 300 mg Tab meloxicam (MOBIC) 7.5 mg tablet pravastatin 40 mg tablet Multivitamins-Mineral s-Lutein (CENTRUM SILVER) Tab DULoxetine (CYMBALTA) 30 mg capsule LISINOPRIL-HYDROCHLOR OTHIAZIDE 10-12.5 mg ORAL per tablet metoprolol succinate ER (TOPROL XL) 50 mg 24 hr tablet oxyCODONE-acetaminoph en (PERCOCET) 5-325 mg ORAL tablet Admission/Clinic Administered Medications as of 04/19/20: Hydrochlorothiazide 25 mg lisinopril 5 mg tab(s) (ZESTRIL, PRINIVIL) oxyCODONE IR 5 mg tab(s) (ROXICODONE) senna-docusate 8.6-50 mg 1 tablet (SENNA-S) hydrALAZINE 25 mg tab(s) (APRESOLINE) gabapentin 100 mg cap(s) (NEURONTIN) methadone (DOLOPHINE) tab(s) 15 mg methadone 10 mg tab(s) (DOLOPHINE) methadone 10 mg tab(s) (DOLOPHINE) LORazepam 0.5 mg tab(s) (ATIVAN) metoprolol succinate ER 50 mg tab(s) (TOPROL XL) citalopram 20 mg tab(s) (CeleXA) DULoxetine 30 mg cap(s) (CYMBALTA) sertraline 100 mg tab(s) (ZOLOFT) ferrous sulfate 325 mg tab(s) albuterol 2.5 mg /3 mL (0.083 %) 2.5 mg (PROVENTIL) enoxaparin 40 mg injection (LOVENOX) sodium chloride 0.9 % (flush) 3-5 mL (BD POSIFLUSH) ondansetron 4 mg tab(s) (ZOFRAN) ondansetron (PF) 4 mg injection (ZOFRAN) acetaminophen 650 mg tab(s) (TYLENOL) atorvastatin 10 mg tab(s) (LIPITOR) Problem List: Fracture of cervical vertebra, C2 (HCC) [S12.100A] Cervical spinal stenosis [M48.02] Myelopathy (HCC) [G95.9] S/P cervical spinal fusion [Z98.1] Shoulder pain [M25.519] Osteoarthritis, knee [M17.10] Neck pain [M54.2] Cervicalgia [M54.2] UTI (urinary tract infection) [N39.0] Allergies: Macrodantin [Nitrofurantoin] Morphine Sulfate Date Verified: 04/18/20 Lab Values Lab Value Units Date High Low POTA* 3.9 mmol/L 04/18/2020 5.1 3.7 DOROTHY* 28.5 % 2020 44.9 34.1 Progress Notes (): Raj Pinto MD 04/14/2020 1:58 AM Addendum DEPARTMENT OF HOSPITAL MEDICINE HISTORY AND PHYSICAL EXAM SERVICE DATE: 04/14/2020 SERVICE TIME: 1:00 AM Primary Care Physician: Nahun Casillas MD NIGHT AND WEEKEND [facility]AGE[facility] C[facility]: From 7am - 7pm, please call [phone] After 7pm, please call cross cover pager #[phone] Subjective CHIEF COMPLAINT: Right flank pain HPI: 74yo F is a transfer from [facility], refer to paper chart for details including lab and radiology results. Patient was admitted on 04/12/2020 at [facility] for right sided 8/10 flank/back pain. Patient initially was found to have a UTI with moderate hydronephrosis therefore was put on IV Rocephin 2g. Patient was negative for COVID-19. After this the patient had worsening right sided back pain with paresthesias of her legs that were getting worse. Her back pain started on Saturday this week and persistently got worse. Patient had a CT abdomen/pelvis that mentioned of the mild to moderate bilateral hydronephrosis but also T12 vertebrae destruction and up to the superior aspect of L1. Patient ended up having an MRI of the cervical, thoracic and lumbar spine and was found to have mainly T12-L1 superinfection probably early OM vs discitis and possible malignant infiltration of T12-L1 which was less favored. Patient then was seen by Oncology there and transferred here. Currently patient is in no severe distress stating that lying down helps her with less pain. No chest pain, no nausea, no vomiting, no headaches, no fever/chills. [facility] and is wheelchair bound. Past medical history as below as well has COPD, HTN, HLD, Anxiety, Depression, DDD, PVD Past surgical history as below. Family history of Father HTN, Mother DM, HTN, Sistern HTN, Brother with DM and Cancer Past social history as below. PAST MEDICAL HISTORY Diagnosis Date - Dysthymic disorder Depression (non-psychotic) - Obstructive sleep apnea - Unspecified essential hypertension Essential hypertension PAST SURGICAL HISTORY Procedure Laterality Date - LAMINECTOMY,CERVICAL Laminectomy, cervical fusion x2 - PAST SURGICAL HISTORY OF bladder suspenion x2 - REPAIR ROTATOR CUFF,ACUTE Rotator cuff repair bilat - TOTAL HIP REPLACEMENT Hip replacement, total - TOTAL KNEE REPLACEMENT Knee replacement, total - VAGINAL HYSTERECTOMY Hysterectomy, vaginal Social History Tobacco Use - Smoking status: Never Smoker - Smokeless tobacco: Never Used Substance Use Topics - Alcohol use: No - Drug use: No MEDICATIONS: Reviewed - docusate sodium (COLACE) 100 mg capsule, Take 100 mg by mouth as needed for Constipation., Disp: , Rfl: - ferrous sulfate 325 mg (65 mg iron) tablet, Take 325 mg by mouth three times daily with meals., Disp: , Rfl: - hydroCHLOROthiazide (HYDRODIURIL, ESIDRIX) 25 mg tablet, Take 25 mg by mouth once daily., Disp: , Rfl: - LISINOPRIL ORAL, Take 10 mg by mouth once daily., Disp: , Rfl: - metoprolol tartrate, short acting, (LOPRESSOR) 50 mg tablet, Take 50 mg by mouth twice daily., Disp: , Rfl: - LORazepam (ATIVAN) 0.5 mg, Take 0.5 mg by mouth twice daily., Disp: , Rfl: - zolpidem (AMBIEN) 5 mg tablet, Take 5 mg by mouth at bedtime as needed., Disp: , Rfl: - Methenamine Hippurate (HIPREX) 1 gram tablet, Take 1 g by mouth twice daily with meals., Disp: , Rfl: - albuterol (PROVENTIL) 2.5 mg /3 mL (0.083 %) nebulizer solution, Use 3 mL via nebulizer every 4 hours., Disp: , Rfl: - diclofenac sodium (VOLTAREN) 1 % topical gel, Apply to affected area four times daily., Disp: , Rfl: - methadone (DOLOPHINE) 10 mg tablet, Take 10 mg by mouth every 4 hours as needed. 10 mg at 12:00pm , 22:00 pm and 15 mg in the AM, Disp: , Rfl: - predniSONE (DELTASONE) 20 mg tablet, Take 40 mg by mouth once daily., Disp: , Rfl: - sertraline (ZOLOFT) 100 mg tablet, Take 100 mg by mouth once daily., Disp: , Rfl: - citalopram (CELEXA) 20 mg tablet, Take 20 mg by mouth once daily., Disp: , Rfl: - Gabapentin 300 mg Tab, Take 100 mg by mouth three times daily. , Disp: , Rfl: - meloxicam (MOBIC) 7.5 mg tablet, Take 7.5 mg by mouth once daily., Disp: , Rfl: - pravastatin 40 mg tablet, Take 40 mg by mouth once daily., Disp: , Rfl: - Multivitamins-Mineral s-Lutein (CENTRUM SILVER) Tab, Take 1 tablet by mouth once daily., Disp: , Rfl: - DULoxetine (CYMBALTA) 30 mg capsule, Take 1 a day for 2 weeks, then increase to 2 pills a day., Disp: 60 capsule, Rfl: 3 - LISINOPRIL-HYDROCHLOR OTHIAZIDE 10-12.5 mg ORAL per tablet, 1 tablet once daily., Disp: , Rfl: - metoprolol succinate ER (TOPROL XL) 50 mg 24 hr tablet, Take 50 mg by mouth once daily. , Disp: , Rfl: - oxyCODONE-acetaminoph en (PERCOCET) 5-325 mg ORAL tablet, Take 1 tablet by mouth every 4 hours as needed. , Disp: , Rfl: ALLERGIES Allergen Reactions - Macrodantin [Nitrof* GI Upset - Morphine Sulfate GI Upset REVIEW OF SYSTEM: General: no fatigue, weakness, no fever/chills HEENT: no cough, no nasal congestion, no sore throat Respiratory: no cough, no shortness of breath, no wheezing, no hemoptysis, Cardio: no chest pain, no exertional dyspnea, no leg swelling, no palpitations GI: no nausea, no vomiting, no diarrhea, no abdominal pain : no dysuria, no frequency, no incontinence Musculoskeletal: no joint pain, no joint swelling, no muscle pain, back pain Skin: no rashes, no ulcers, no itching Endocrine: no cold nor heat intolerance, no polyuria, no goiter Neuro: no headaches, no syncope, no paralysis, no seizures, no tremors Objective PHYSICAL EXAM: BP 147/60 Pulse 57 Temp (Src) 98.6 (Oral) Resp 16 Ht 5' 0 (1.52m) Wt 219 lb 9.6 oz (99.6kg) SpO2 97% BMI 42.89 kg/(m2). O2 Therapy: Room Air Physical Exam Performed: GENERAL: Alert, no distress, cooperative, morbidly obese SKIN: Skin color, texture, turgor normal. No rashes or lesions. EYES: PERRLA, EOMI LUNGS: Lungs clear to auscultation, Good diaphragmatic excursion, no wheezing, no crackles CARDIAC: Normal S1 and S2; no rubs, murmurs, or gallops, RRR ABDOMEN: Abdomen soft, non-tender, BS normal, No masses or organomegaly EXTREMITIES: no edema, clubbing or skin discoloration. Good capillary refill., No ulcers NEURO: wheelchair bound, Reflexes normal and symmetric. Sensation grossly intact, Cranial nerves II-XII intact PULSES: 2+ radial, 2+ carotid Lines, Drains, and Airways Line Peripheral 04/13/202299 Admission to Hospital Left Antecubital 20 Gauge less than 1 day Peripheral 04/13/202299 Admission to Hospital Right Wrist 20 Gauge less than 1 day DATA: Diagnostic tests reviewed for today's visit: Most recent labs and imaging results. WBC 10.3, Hgb 9.5, Plt 326, Na 138, K 4.4, BUN 37, Creatinine 1.00, Glucose 98, Ca 8.9, 27, ALT 26, Alk phos 75, Albumin 2.9 UA Nitrite positive, LE large, WBC 50-100 CT Abdomen/Pelvis with contrast: - destruction of the T12 vertebrae and the superior aspect of the L1 vertebrae - Mild bilateral hydronephrosis and hydroureter - cystocele with diffuse bladder wall thickening MRI Cervical spine: - Mild to moderate central canal stenosis without cord compression C3-C4, C6-C7, and C7-T1 MRI Lumbar and Thoracic with and without contrast: - complex chronic process with possible superinfection at T12-L1 probably early OM and discitis at T11-T12. 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 as well lower differential of malignancy 2) UTI Chronic: 3) COPD without exacerbation 4) Chronic hypoxic respiratory failure on 2L basline 5) HTN 6) HLD 7) Depression 8) Iron deficiency anemia 9) Anxiety Plan: - Blood cultures - IV Zosyn and Vancomycin empirically - ID consult - Hem/Onc consult - PTOT - CBC, BMP tomorrow - Continue home medications of zoloft, metoprolol, ativan, lisinopril, HCTZ, ferrous sulfate, cymbalta, celexa, atorvastatin Full Code Medication and Non-Pharmacologic VTE Prophylaxis/Anticoagu lants Anticoagulant AND Antiplatelet Medications (From admission, onward) Start Dose Route Frequency Ordered Stop 04/14/20 0900 enoxaparin 40 mg injection (LOVENOX) (Medical Risk Categories) 40 mg SUBCUTANEOUS DAILY 04/14/20 0137 -- 04/14/20 0145 vte non-pharmacologic prophylaxis - none indicated (in,az) 04/14/20 0145 activity - mobilize patient (in,az) VTE Prophylaxis: VTE prophylaxis appropriate Disposition: SNF Plan of care discussed with: Provider, RN, Patient SIGNATURE: Raj Pinto MD PATIENT NAME: Patricia Hawley DATE: April 14, 2020 TIME: 1:37 AM PAGER/CONTACT #: [phone] Previous Version Raj Pinto MD 04/14/2020 1:55 AM Signed Advance Care Planning discussion Parties in Attendance patient Patient's decision making capacity : Has capacity Diagnosis: OM vs discitis of T12-L1 vs mass, has chronic respiratory failure, debility with ambulatory dysfunction Discussed thoroughly difference between full code and DNR and patient shows understanding and would like to be Full code. Code Status: Full code Time spent discussing advanced care plannin minutes FE WEN, PHARMACIST 04/14/2020 7:21 AM Signed PHARMACY VANCOMYCIN DOSING NOTE Patient Name: Patricia Hawley Admission Date: 04/13/2020 Date of Consult: 04/14/2020 Time of Consult: 7:20 AM Indication: Bone AND joint infection Goal Range: 10-20 mcg/mL RECOMMENDATIONS/PLAN: Pharmacy consulted for vancomycin dosing for Patricia Hawley, a 74 year old, female who is being treated with vancomycin for Bone and Joint Infection. 1. Patient is currently ordered Vancomycin 1.5 g IV q24h. Today is day One of therapy with first dose given @ 0200. 2. No vancomycin level has been drawn for this dosing regimen. 3. The present dose of vancomycin is the recommended dosage for this patient at this time. Continue therapy as prescribed. 4. The next vancomycin level will be ordered for 04-17-2020 @ 0100 unless clinically indicated sooner. (Pharmacy will order) We will follow patient renal function, vancomycin levels and doses with you during the course of therapy. Additional recommendations will appear in follow up notes. If [place] [phone]. Age: [age] year old Allergies: ALLERGIES Allergen Reactions - Macrodantin [Nitrof* GI Upset - Morphine Sulfate GI Upset Last 3 Encounter Wt Readings: Date: Wt: 04/13/2020 99.6 kg (219 lb 9.6 oz) 05/18/2019 89.8 kg (198 lb) 12/04/2012 78.1 kg (172 lb 3.2 oz) Last 1 Encounter Ht Readings: Date: Ht: 04/13/2020 152.4 cm (5') CrCl: 53.9 mL/min Temp (24hrs), Av ?C (98.6 ?F), Min:37 ?C (98.6 ?F), Max:37 ?C (98.6 ?F) - Current Temp: 37 ?C (98.6 ?F) Labs BUN (mg/dL) Date Value 04/14/2020 21 07/26/2013 27 (H) 07/24/2013 26 (H) Creatinine (mg/dL) Date Value 04/14/2020 0.97 (H) 07/26/2013 1.01 (H) 07/24/2013 0.78 WBC (thou/cmm) Date Value 04/14/2020 8.02 07/28/2013 5.1 07/26/2013 6.7 Vancomycin Levels: No results found for: MARIALUISA WEN, PHARMACIST Giovani Shin MD 04/14/2020 4:58 PM Signed INITIAL CONSULT INFECTIOUS DISEASE SERVICE DATE: 04/14/2020 SERVICE TIME: 11:01 AM We were asked to evaluate Ms. Patricia Hawley, a 74 year old yo female by Dr. Pinto [facility] for Patient comes from [facility], all documents in the paper chart. Has t12-L1 superinfection question with discitis vs OM, also possibly soft tissue mass. Our findings and recommendations will be communicated through the shared medical record. ASSESSMENT: 1. UTI + hydronephrosis 2. 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 Will change to ceftriaxone, d/c zosyn + vancomycin. Will review MRI lumbar with radiologist, likely chronic given extensive investigation in the past Estimated Creatinine Clearance: 54.1 mL/min (A) (based on SCr of 0.97 mg/dL (H)). RECOMMENDATIONS: - d/c zosyn + vancomycin - start ceftriaxone - will Compare prior mri with radiologist --> likely chronic with extensive infectious investigation in the past SUBJECTIVE: HPI: 74F h/o spinal stenosis s/p T12-L5 decompressive bilateral laminectomy with foraminotomies from T12-L5 for decompression. presented to [facility] on 04/12/20 for R flank pain found to have UTI + hydronephrosis, transferred to [facility] 04/14/20 because of worsening paresthesias of legs, MRI c/t/l showed T12-L1 OM vs discitis vs malignancy. When chart reviewed, patient had was seen here at [facility] 05/08/2013 because of worsening back pain and urinary retention. Per discharge summary, patient had an MRI of the lumbar spine with and without contrast, which shows advanced multilevel degenerative changes involving the lower thoracic and lumbar spine with severe central canal stenosis at T12 and L1 to T2 to T3 disk levels. There are associated compression and abnormal intramedullary signal hyperintensity consistent with cord edema, ischemia and myelomalacia. The patient was transferred to [facility] for further management. She had a CT of the lumbar spine without contrast done, which was consistent with diskitis/osteomyeliti s. The patient did not have any other signs of infection. She was seen by neurosurgery as well as infectious disease. There was a concern for epidural abscess as patient did receive epidural injection for chronic back pain. She had a T12 to L5 laminectomy with foraminotomies by neurosurgery. The blood cultures as well as cultures from the back tissue were negative for any growth. She also had AFB cultures done, which were negative. This patient was not treated with any IV antibiotics during the hospitalization. Her pain and radiculopathy were much improved after the surgery. She still had some paresthesias on her lower extremities as well as some urinary incontinence, which is chronic per patient. She was seen by physical therapy and recommended acute inpatient rehabilitation at the time of discharge. Then again 11/23/15 an MRI was done and showed abnormal signal intensity at the T12-L1 disc. CT biopsy was done 12/16/15 and fungal/afb/rickey cx neg. CURRENT ANTIBIOTICS: Zosyn vancomycin Current other medications reviewed. Current Facility-Administered Medications Medication Dose Route Frequency - metoprolol succinate ER 50 mg tab(s) (TOPROL XL) 50 mg ORAL DAILY - citalopram 20 mg tab(s) (CeleXA) 20 mg ORAL DAILY - DULoxetine 30 mg cap(s) (CYMBALTA) 30 mg ORAL DAILY - LORazepam 0.5 mg tab(s) (ATIVAN) 0.5 mg ORAL BID - sertraline 100 mg tab(s) (ZOLOFT) 100 mg ORAL DAILY - oxyCODONE-acetaminoph en 5-325 mg 1 tablet (PERCOCET) 1 tablet ORAL q 4 H PRN - ferrous sulfate 325 mg tab(s) 325 mg ORAL TID w MEALS - predniSONE 40 mg tab(s) (DELTASONE) 40 mg ORAL DAILY - albuterol 2.5 mg /3 mL (0.083 %) 2.5 mg (PROVENTIL) 3 mL INHALATION q 6 H PRN - piperacillin-tazobact am iv piggyback 3.375 g in dextrose (iso-osmotic) 50 mL (ZOSYN) 3.375 g INTRAVENOUS q 6 H - vancomycin dosing and monitoring per pharmacy OTHER As Directed - enoxaparin 40 mg injection (LOVENOX) 40 mg SUBCUTANEOUS DAILY - sodium chloride 0.9 % (flush) 3-5 mL (BD POSIFLUSH) 3-5 mL INTRAVENOUS q 12 H - ondansetron 4 mg tab(s) (ZOFRAN) 4 mg ORAL q 6 H PRN Or - ondansetron (PF) 4 mg injection (ZOFRAN) 4 mg INTRAVENOUS q 6 H PRN - acetaminophen 650 mg tab(s) (TYLENOL) 650 mg ORAL q 6 H PRN - atorvastatin 10 mg tab(s) (LIPITOR) 10 mg ORAL AT BEDTIME - Hydrochlorothiazide 12.5 mg 12.5 mg ORAL DAILY - lisinopril 10 mg tab(s) (ZESTRIL, PRINIVIL) 10 mg ORAL DAILY PAST MEDICAL HISTORY Diagnosis Date - Dysthymic disorder Depression (non-psychotic) - Obstructive sleep apnea - Unspecified essential hypertension Essential hypertension PAST SURGICAL HISTORY Procedure Laterality Date - LAMINECTOMY,CERVICAL Laminectomy, cervical fusion x2 - PAST SURGICAL HISTORY OF bladder suspenion x2 - REPAIR ROTATOR CUFF,ACUTE Rotator cuff repair bilat - TOTAL HIP REPLACEMENT Hip replacement, total - TOTAL KNEE REPLACEMENT Knee replacement, total - VAGINAL HYSTERECTOMY Hysterectomy, vaginal Social History Tobacco Use - Smoking status: Never Smoker - Smokeless tobacco: Never Used Substance Use Topics - Alcohol use: No - Drug use: No No family history on file. ALLERGIES Allergen Reactions - Macrodantin [Nitrof* GI Upset - Morphine Sulfate GI Upset OBJECTIVE: REVIEW OF SYSTEMS: Unable to elicit, patient sleepy Spoke with daughter, poa PHYSICAL EXAM: BP 156/60 Pulse (!) 59 Temp 37.1 ?C (98.8 ?F) (Oral) Resp 14 Ht 152.4 cm (5') Wt 100.2 kg (220 lb 14.4 oz) SpO2 99% BMI 43.14 kg/m? GENERAL APPEARANCE: Comfortable SKIN: No rashes or lesions LUNGS: Normal breath sounds, clear to auscultation, no wheezes, or crackles HEART:RRR, no murmurs ABDOMEN: Soft, non tender, BS+ EXTREMITIES: No edema or tenderness NEURO: no involuntary motions LABS: WBC (thou/cmm) Date Value 04/14/2020 8.02 07/28/2013 5.1 07/26/2013 6.7 07/24/2013 7.1 05/11/2013 7.8 Creatinine (mg/dL) Date Value 04/14/2020 0.97 07/26/2013 1.01 07/24/2013 0.78 07/24/2013 0.68 05/09/2013 0.81 Lab Results Component Value Date NEUTP 81.0 12/26/2009 ABSNEUT 5.54 12/26/2009 LYMPHP 16.0 12/26/2009 ABSLYMPH 1.09 12/26/2009 ABSMONO 0.21 12/26/2009 EODINP 0.0 12/26/2009 ABSEOSIN 0.00 12/26/2009 BASOP 0.0 12/26/2009 ABSBASO 0.00 12/26/2009 Lab Results Component Value Date PLT 317 04/14/2020 HB 9.0 04/14/2020 HB 12.0 07/28/2013 HCT 29.0 04/14/2020 ALB 3.5 07/26/2013 CA 8.9 04/14/2020 TBILI 0.5 07/26/2013 ALKPHOS 59 07/26/2013 AST 19 07/26/2013 GLUC 96 04/14/2020 BUN 21 04/14/2020 NA 139 04/14/2020 K 3.9 04/14/2020 CHLOR 103 04/14/2020 CO2 25 04/14/2020 ANION 11 04/14/2020 ALT 36 07/26/2013 WSR (mm/Hr) Date Value 12/22/2009 36 Sed Rate, Westergren (mm/hr) Date Value 07/26/2013 23 CRP (mg/dL) Date Value 07/26/2013 <0.29 No results found for: VANCOPRE, VANCORA MICROBIOLOGY: Positive Micro-30 Days No results found for the last 720 hours. IMAGING: MRI lumbar : Wedge-shaped mixed signal material identified in the T12-L1 level is most likely combination of fibrosis and chronic seroma/proteinaceous material. Some serpiginous low signal material is identified at the periphery of this complex collection which was more well formed on the prior MRI and appears to be surgically intentionally placed material. A fluid/fluid level is seen within this material. There is mild peripheral enhancement around this material/complex fluid on the postcontrast study likely due to the investing capsule or fibrosis. Enhancement is also seen in circumferential fibrotic material of the epidural space which contributes to mass effect on the thecal sac. Mild enhancement is also present in the endplates and disc of T11-T12 with no demonstrated cortical erosion or bony destruction or intradiscal fluid; acute inflammation and possibly early osteomyelitis suspected at this level. Retrolisthesis of the superior T12 fragment of 1.9 cm noted. Moderate central canal stenosis is present at the T12-L1 level. A posterior decompressive defect is seen. The facet joints at this level are moderately severe bilateral foraminal stenosis with nerve root compression is present at the T12-L1 level. Hypertrophied. DATA: Diagnostic Tests Reviewed for Today's Visit: Most recent labs Most recent imaging Thank you very much for inviting us to participate in the care of this patient. SIGNATURE: Giovani Shin MD PATIENT NAME: Patricia Hawley DATE: April 14, 2020 TIME: 11:01 AM PAGER/CONTACT #: [phone] Leyda Azar MD 04/14/2020 11:11 AM Signed CONSULT: Hematology/OncologySE RVICE SERVICE DATE: 04/14/2020 REASON FOR CONSULT: Vertebral lesion , need for biopsy REQUESTING PHYSICIAN: Dr Pinto PRIMARY CARE PHYSICIAN: Nahun Casillas MD Subjective 74yo F is a transfer from [facility].Patient was admitted on 04/12/2020 at [facility] for right sided 8/10 flank/back pain. Patient initially was found to have a UTI. After this the patient had worsening right sided back pain with paresthesias of her legs that were getting worse. Her back pain started on Saturday this week and persistently got worse.She had fever once in the hospital. Patient had a CT abdomen/pelvis that mentioned of the mild to moderate bilateral hydronephrosis but also T12 vertebrae destruction and up to the superior aspect of L1. Patient ended up having an MRI of the cervical, thoracic and lumbar spine and was found to have mainly T12-L1 superinfection probably early OM vs discitisand possible malignant infiltration of T12-L1 which was less favored.Hasgained weight. No change in appetite. PAST MEDICAL HISTORY Diagnosis Date - Dysthymic disorder Depression (non-psychotic) - Obstructive sleep apnea - Unspecified essential hypertension Essential hypertension PAST SURGICAL HISTORY Procedure Laterality Date - LAMINECTOMY,CERVICAL Laminectomy, cervical fusion x2 - PAST SURGICAL HISTORY OF bladder suspenion x2 - REPAIR ROTATOR CUFF,ACUTE Rotator cuff repair bilat - TOTAL HIP REPLACEMENT Hip replacement, total - TOTAL KNEE REPLACEMENT Knee replacement, total - VAGINAL HYSTERECTOMY Hysterectomy, vaginal No family history on file. Social History Tobacco Use - Smoking status: Never Smoker - Smokeless tobacco: Never Used Substance Use Topics - Alcohol use: No - Drug use: No - docusate sodium (COLACE) 100 mg capsule, Take 100 mg by mouth as needed for Constipation., Disp: , Rfl: - ferrous sulfate 325 mg (65 mg iron) tablet, Take 325 mg by mouth three times daily with meals., Disp: , Rfl: - hydroCHLOROthiazide (HYDRODIURIL, ESIDRIX) 25 mg tablet, Take 25 mg by mouth once daily., Disp: , Rfl: - LISINOPRIL ORAL, Take 10 mg by mouth once daily., Disp: , Rfl: - metoprolol tartrate, short acting, (LOPRESSOR) 50 mg tablet, Take 50 mg by mouth twice daily., Disp: , Rfl: - LORazepam (ATIVAN) 0.5 mg, Take 0.5 mg by mouth twice daily., Disp: , Rfl: - zolpidem (AMBIEN) 5 mg tablet, Take 5 mg by mouth at bedtime as needed., Disp: , Rfl: - Methenamine Hippurate (HIPREX) 1 gram tablet, Take 1 g by mouth twice daily with meals., Disp: , Rfl: - albuterol (PROVENTIL) 2.5 mg /3 mL (0.083 %) nebulizer solution, Use 3 mL via nebulizer every 4 hours., Disp: , Rfl: - diclofenac sodium (VOLTAREN) 1 % topical gel, Apply to affected area four times daily., Disp: , Rfl: - methadone (DOLOPHINE) 10 mg tablet, Take 10 mg by mouth every 4 hours as needed. 10 mg at 12:00pm , 22:00 pm and 15 mg in the AM, Disp: , Rfl: - predniSONE (DELTASONE) 20 mg tablet, Take 40 mg by mouth once daily., Disp: , Rfl: - sertraline (ZOLOFT) 100 mg tablet, Take 100 mg by mouth once daily., Disp: , Rfl: - citalopram (CELEXA) 20 mg tablet, Take 20 mg by mouth once daily., Disp: , Rfl: - Gabapentin 300 mg Tab, Take 100 mg by mouth three times daily. , Disp: , Rfl: - meloxicam (MOBIC) 7.5 mg tablet, Take 7.5 mg by mouth once daily., Disp: , Rfl: - pravastatin 40 mg tablet, Take 40 mg by mouth once daily., Disp: , Rfl: - Multivitamins-Mineral s-Lutein (CENTRUM SILVER) Tab, Take 1 tablet by mouth once daily., Disp: , Rfl: - DULoxetine (CYMBALTA) 30 mg capsule, Take 1 a day for 2 weeks, then increase to 2 pills a day., Disp: 60 capsule, Rfl: 3 - LISINOPRIL-HYDROCHLOR OTHIAZIDE 10-12.5 mg ORAL per tablet, 1 tablet once daily., Disp: , Rfl: - metoprolol succinate ER (TOPROL XL) 50 mg 24 hr tablet, Take 50 mg by mouth once daily. , Disp: , Rfl: - oxyCODONE-acetaminoph en (PERCOCET) 5-325 mg ORAL tablet, Take 1 tablet by mouth every 4 hours as needed. , Disp: , Rfl: Current Facility-Administered Medications Medication Dose Route Frequency - metoprolol succinate ER 50 mg tab(s) (TOPROL XL) 50 mg ORAL DAILY - citalopram 20 mg tab(s) (CeleXA) 20 mg ORAL DAILY - DULoxetine 30 mg cap(s) (CYMBALTA) 30 mg ORAL DAILY - LORazepam 0.5 mg tab(s) (ATIVAN) 0.5 mg ORAL BID - sertraline 100 mg tab(s) (ZOLOFT) 100 mg ORAL DAILY - oxyCODONE-acetaminoph en 5-325 mg 1 tablet (PERCOCET) 1 tablet ORAL q 4 H PRN - ferrous sulfate 325 mg tab(s) 325 mg ORAL TID w MEALS - predniSONE 40 mg tab(s) (DELTASONE) 40 mg ORAL DAILY - albuterol 2.5 mg /3 mL (0.083 %) 2.5 mg (PROVENTIL) 3 mL INHALATION q 6 H PRN - piperacillin-tazobact am iv piggyback 3.375 g in dextrose (iso-osmotic) 50 mL (ZOSYN) 3.375 g INTRAVENOUS q 6 H - vancomycin dosing and monitoring per pharmacy OTHER As Directed - enoxaparin 40 mg injection (LOVENOX) 40 mg SUBCUTANEOUS DAILY - sodium chloride 0.9 % (flush) 3-5 mL (BD POSIFLUSH) 3-5 mL INTRAVENOUS q 12 H - ondansetron 4 mg tab(s) (ZOFRAN) 4 mg ORAL q 6 H PRN Or - ondansetron (PF) 4 mg injection (ZOFRAN) 4 mg INTRAVENOUS q 6 H PRN - acetaminophen 650 mg tab(s) (TYLENOL) 650 mg ORAL q 6 H PRN - atorvastatin 10 mg tab(s) (LIPITOR) 10 mg ORAL AT BEDTIME - Hydrochlorothiazide 12.5 mg 12.5 mg ORAL DAILY - lisinopril 10 mg tab(s) (ZESTRIL, PRINIVIL) 10 mg ORAL DAILY Allergies As of Date: 04/13/2020 Allergen Noted Reaction MACRODANTIN [NITROFURANTOIN] 12/22/2009 GI Upset MORPHINE SULFATE 12/22/2009 GI Upset Fully Assessed 04/13/2020 COMPLETE REVIEW OF SYSTEMS: Reviewed per history of present illness. All other systems systems reviewed and negative for any complaints Objective PHYSICAL EXAM: Patient Vitals for the past 24 hrs: BP Temp Temp src Pulse Resp SpO2 Height Weight 04/14/20 0935 ? 100.2 kg (220 lb 14.4 oz) 04/14/20 0741 156/60 37.1 ?C (98.8 ?F) Oral (!) 59 14 99 % ? ? 04/13/20 2300 ? 152.4 cm (5') 99.6 kg (219 lb 9.6 oz) 04/13/20 2232 147/60 37 ?C (98.6 ?F) Oral (!) 57 16 97 % ? ? Body mass index is 43.14 kg/m?. Gen. alert awake and oriented Neck negative, no adenopathy Chest clear to auscultation bilaterally no wheezes or crackles Abdomen soft, nontender, no organomegaly Cardiovascular last S1-S2 normal , no rubs murmurs or gallops Lower extremity no edema Neurologic nonfocal DATA: WBC (thou/cmm) Date Value 04/14/2020 8.02 RBC (mil/cmm) Date Value 04/14/2020 2.92 (L) Hemoglobin (g/dL) Date Value 07/28/2013 12.0 HGB (g/dL) Date Value 04/14/2020 9.0 (L) Hematocrit (%) Date Value 04/14/2020 29.0 (L) MCV (fl) Date Value 04/14/2020 99.3 (H) MCH (pg) Date Value 04/14/2020 30.8 MCHC (%) Date Value 04/14/2020 31.0 (L) RDW-CV (%) Date Value 12/26/2009 13.5 Platelet Count (thou/cmm) Date Value 04/14/2020 317 MPV (fl) Date Value 04/14/2020 9.6 Glucose (mg/dL) Date Value 04/14/2020 96 BUN (mg/dL) Date Value 04/14/2020 21 Creatinine (mg/dL) Date Value 04/14/2020 0.97 (H) Sodium (mmol/L) Date Value 04/14/2020 139 Potassium (mmol/L) Date Value 04/14/2020 3.9 Chloride (mmol/L) Date Value 04/14/2020 103 CO2 (mmol/L) Date Value 04/14/2020 25 Protein, Total (g/dL) Date Value 07/26/2013 6.5 Albumin (g/dL) Date Value 07/26/2013 3.5 Calcium (mg/dL) Date Value 04/14/2020 8.9 Alkaline Phosphatase (U/L) Date Value 07/26/2013 59 Bilirubin, Total (mg/dL) Date Value 07/26/2013 0.5 AST (U/L) Date Value 07/26/2013 19 ALT (U/L) Date Value 07/26/2013 36 URINALYSIS pH, Arterial Date Value Ref Range Status 12/26/2009 7.47 (H) 7.35 - 7.45 Final Specific Sigel, Ur Date Value Ref Range Status 07/23/2013 1.017 1.005 - 1.030 Final Glucose, Urine Date Value Ref Range Status 07/23/2013 NEGATIVE Negative Final Bilirubin, Urine Date Value Ref Range Status 07/23/2013 NEGATIVE Negative Final Ketones, Urine Date Value Ref Range Status 07/23/2013 NEGATIVE Negative Final Hemoglobin/Blood,Ur Date Value Ref Range Status 12/23/2009 Negative NEGAT Final Protein, Urine Date Value Ref Range Status 07/23/2013 NEGATIVE Negative Final Urobilinogen, Urine Date Value Ref Range Status 07/23/2013 1.0 0.0 - 1.0 EU/dL Final WBC, Urine Date Value Ref Range Status 07/23/2013 0.9 0.0 - 5.0 /hpf Final Diagnostic tests reviewed for today's visit: Assessment and Plan: T12-L1 osteomyelitis vs discitis vs malignancy: I will review his his imaging with radiology to see if there is any concern for malignancy. Will proceed with biopsy if recommended by them. Await ID eval Anemia: Check iron studies, b12 and folate levels UTI: On antibiotics COPD SIGNATURE: Leyda Azar MD PATIENT NAME: Patricia Hawley DATE: April 14, 2020 TIME: 11:07 AM PAGER: [phone] Leyda Azar MD 04/14/2020 12:29 PM Signed Imaging reviewed with Dr Dodie ORTIZ.Findings T12-L1 suspicious for infectious process unlikely malignancy. If ok by ID can consider aspiration for diagnostic purpose. Will discuss with MD Jasmina Bishop MD 04/18/2020 9:05 PM Addendum DEPARTMENT OF HOSPITAL MEDICINE PROGRESS NOTE SERVICE DATE: 04/14/2020 SERVICE TIME: 12:35 PM Hospital Medicine/Primary Attending: Jasmina Oakley MD NIGHT AND WEEKEND COVERAGE: After 7pm please page [phone] CHIEF COMPLAINT: back pain. UTI. Discitis/ OM SUBJECTIVE: Reports having fever and headache around 3 weeks ago. She was tested negative for COVID. Around the same time she has been having worsening of pain in the left flank as well as lumbar spinal area with radiation to the bilateral legs. She always has chronic back pain with pain especially in the right leg as well as numbness in both legs. Denies any saddle anesthesia. At baseline, she is wheelchair-bound. She does not walk. She had history of surgery likely laminectomy in the lumbar spine and multiple screws in cervical spine. Currently she reports no headache or lightheadedness. Denies any chest pain or cough or shortness of breath. She reports occasional dark-colored vomitus. OBJECTIVE: PHYSICAL EXAM: BP 165/64 Pulse 59 Temp (Src) 98.8 (Oral) Resp 16 Ht 5' 0 (1.52m) Wt 220 lb 14.4 oz (100.2kg) SpO2 98% BMI 43.14 kg/(m2). O2 Therapy: Nasal Cannula, Liters: 3 GENERAL: Alert, no distress, cooperative, morbidly obese SKIN: Skin color, texture, turgor normal. No rashes or lesions. OROPHARYNX: Lips, mucosa, and tongue normal. Teeth and gums normal. Oropharynx normal. LUNGS: Lungs clear to auscultation, Air entry good, Unlabored breathing. CARDIAC: Normal S1 and S2; no rubs, murmurs, or gallops ABDOMEN: Abdomen soft, non-tender, non-distended, BS normal EXTREMITIES: no edema. BACK: Old healed scar in the lumbar spine. No tenderness. NEURO: AA. Oriented to person and partially to place and time. Strength- weakness in bilateral dorsiflexion and plantar flexors . Sensation ? Decreased bilateral legs and feet. Reflex decrease in bilateral patella MEDICATIONS: Current Facility-Administered Medications Medication Dose Route Frequency - metoprolol succinate ER 50 mg tab(s) (TOPROL XL) 50 mg ORAL DAILY - citalopram 20 mg tab(s) (CeleXA) 20 mg ORAL DAILY - DULoxetine 30 mg cap(s) (CYMBALTA) 30 mg ORAL DAILY - LORazepam 0.5 mg tab(s) (ATIVAN) 0.5 mg ORAL BID - sertraline 100 mg tab(s) (ZOLOFT) 100 mg ORAL DAILY - oxyCODONE-acetaminoph en 5-325 mg 1 tablet (PERCOCET) 1 tablet ORAL q 4 H PRN - ferrous sulfate 325 mg tab(s) 325 mg ORAL TID w MEALS - predniSONE 40 mg tab(s) (DELTASONE) 40 mg ORAL DAILY - albuterol 2.5 mg /3 mL (0.083 %) 2.5 mg (PROVENTIL) 3 mL INHALATION q 6 H PRN - piperacillin-tazobact am iv piggyback 3.375 g in dextrose (iso-osmotic) 50 mL (ZOSYN) 3.375 g INTRAVENOUS q 6 H - vancomycin dosing and monitoring per pharmacy OTHER As Directed - enoxaparin 40 mg injection (LOVENOX) 40 mg SUBCUTANEOUS DAILY - sodium chloride 0.9 % (flush) 3-5 mL (BD POSIFLUSH) 3-5 mL INTRAVENOUS q 12 H - ondansetron 4 mg tab(s) (ZOFRAN) 4 mg ORAL q 6 H PRN Or - ondansetron (PF) 4 mg injection (ZOFRAN) 4 mg INTRAVENOUS q 6 H PRN - acetaminophen 650 mg tab(s) (TYLENOL) 650 mg ORAL q 6 H PRN - atorvastatin 10 mg tab(s) (LIPITOR) 10 mg ORAL AT BEDTIME - Hydrochlorothiazide 12.5 mg 12.5 mg ORAL DAILY - lisinopril 10 mg tab(s) (ZESTRIL, PRINIVIL) 10 mg ORAL DAILY DATA: Diagnostic tests reviewed for today's visit: CBC, Coags, BMP, Mg, Phos Recent Labs 04/14/20 0205 WBC 8.02 HB 9.0* HCT 29.0* PLT 317 NA 139 K 3.9 CHLOR 103 CO2 25 BUN 21 CREAT 0.97* GLUC 96 CA 8.9 Liver Function, Amylase, AND Lipase Cardiac Enzymes Heme: No results for input(s): RETICP, ABSRETIC, LD, ANTONIETTA, FE, TIBC, TRANSFERSAT in the last 24 hours. No results found for: UALBCR Assessment/Plan Patient Active Hospital Problem List: UTI (urinary tract infection) (04/14/2020) ASSESSMENT: Mrs Hawley transfer most of hospital for the concern of vertebral discitis/osteomyeliti s. She has: 1. Osteomyelitis/disciti s at T12-L1 and T11-T12 level: Iess likely a malignant process. S/p MRI cervical, thoracic, lumbar spine at OSH- results reviewed. WBC normal. CRP elevated at 27 On vancomycin and Zosyn.. On percocet for pain ID consulted. 2. UTI pyelonephritis: Urinalysis was positive for pyuria at OSH. 3. History of lumbar and cervical spine surgery: Has hardware/screws in cervical spine 4. Debility at baseline: Uses a wheelchair all the time baseline. Resides in a [place] Chronic medical conditions 1. Hypertension 2. Anemia 3. Chronic pain syndrome 4. COPD 5. Chronic hypoxic respiratory failure 2 L nasal cannula 6. Hyperlipidemia 7. 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 ? Indication. PLAN: Continue current abx. Await ID input. Likely would need biopsy of the affected vertebrae. Pain control. Discussed with microbiology lab at [facility]. Urine culture is growing Escherichia coli semiresistant but sensitive to Zosyn per lab personnel. She is going to fax the result to our fax here. VTE Prophylaxis: Lovenox 40mg Sub Q Daily Disposition: Extended Care Facility Plan of care discussed with: Provider, RN, Patient and Family/Significant Other: dtr and POA SIGNATURE: Jasmina Oakley MD PATIENT NAME: Patricia Hawley DATE: April 14, 2020 TIME: 12:35 PM PAGER/CONTACT #: [phone] Previous Version María Mccall RN, RN 04/14/2020 3:26 PM Signed CARE MANAGEMENT: ASSESSMENT AND DISCHARGE PLAN SERVICE DATE: April 14, 2020 SERVICE TIME: 1100 PRIMARY CARE PHYSICIAN: Wolf Berry MD ADMISSION STATUS: Inpatient Needs Prior to Discharge: Facility or Agency Choices;Discharge Prescriptions;Dischar ge Transportation MEDICAL: [facility] MEDICARE Patient/Representativ e Stated Goals: To return home to life as it was;To have reduction in symptoms;To have reduction in pain Health Insurance: [facility] Health Issues Impacting Discharge Plan: Newly diagnosed Newly Diagnosed: UTI and back pain Last Discharge Date: 12/29/09 Is this Within the Past 30 days? Last discharge within 30 days: No Advance Directive: Current Advance Directive: Health Care Power of Land Leases And Rentals Manager In Chart: No Gandy Dancer Attempted to Assist with AD Completion: Yes Action: (requested copy be brought in.) Health LiteracyHow often do you need to have someone help you when you read instructions, pamphlets, or other written material from your doctor or pharmacy? : 3 - Sometimes How confident are you filling out medical forms by yourself?: 3 - Somewhat If Patient scores > 3 on either question, the following interventions were put into place:: Use of plain language and active listening with Patient and family;Use concrete and specific phrases, avoid medical jargon;Forms of communication used with patient and family;Teach back methods employed to ensure comprehension Baseline Mental Status Prior to this Illness what was the patient's Baseline Mental Status?: Alert AND Oriented Prior to this illness, has anyone described the patient having any of the following behaviors?: Not Applicable Relationship of the informant to the patient:: Self;Daughter Name of Informant: : Naina-daughter and patient Functional Status: Dependent Equipment Prior to Admission: Wheelchair;Other: See Comment(electric wheelchair) SOCIAL: Living Arrangements: Nursing Facility Lives With: Spouse Financial Resources: RetiredPrimary Contact: Extended Emergency Contact Information Primary Emergency Contact: Naina Willis Mobile Relation: Daughter Secondary Emergency Contact: Scott Dao Mobile Relation: Son Supportive Patient Contact:: Yes Contact Resources: Family Social Needs Food insecurity Worry: Never true Inability: Never true Resources Needed: No Social Needs Financial resource strain: Not on file Social Needs Transportation needs Medical: No Non-medical: No Caregiver AssessmentCaregiver is ready, willing and able to meet the patient's needs as recommended by the inter-professional team:: Yes Does the patient have an acute stroke diagnosis, or has the patient had a stroke during this admission?: No Patient's transition needs and plan for meeting these needs: return to the [facility] at discharge Patient's perception of need for this admission: UTI and back pain Are you interested in bedside delivery of your medications? 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 Pt is AANDOX3. Will need WC ride back to facility. SIGNATURE: María Mccall RN PATIENT NAME: Patricia Hawley DATE: April 14, 2020 TIME: 3:23 PM PAGER/CONTACT #: [phone] FATMATA CHURCH 04/14/2020 5:13 PM Signed PHARMACY VANCOMYCIN DOSING NOTE Patient Name: Patricia Hawley Admission Date: 04/13/2020 Date of Consult: 04/14/2020 Time of Consult: 5:13 PM Indication: Bone AND joint infection Goal Range: 10-20 mcg/mL RECOMMENDATIONS/PLAN: Pharmacy consulted for vancomycin dosing for Patricia Hawley, a 74 year old, female who is being treated with vancomycin for bone and joint infection. The infectious disease service has discontinued vancomycin therapy. Pharmacy vancomycin dosing service will sign off. Thank you for allowing us to participate in this patient's care. Please contact pharmacy if questions. FATMATA CHURCH RN, RN 2020 9:00 AM Signed CARE MANAGEMENT PROGRESS NOTE SERVICE DATE: 2020 SERVICE TIME: 8:59 AM LOS: 1 day Pt will need a COVID test ordered prior to discharge. Already notified Dr. Oakley. SIGNATURE: María Mccall RN PATIENT NAME: Patricia Hawley DATE: 2020 TIME: 8:59 AM PAGER/CONTACT #: [phone] Giovani Shin MD 2020 4:42 PM Addendum PROGRESS NOTE INFECTIOUS DISEASE BRIEF SUMMARY: 74F h/o spinal stenosis s/p T12-L5 decompressive bilateral laminectomy with foraminotomies from T12-L5 for decompression. Presented to [facility] ([facility] on 04/12/20 for R flank pain found to have UTI + hydronephrosis, transferred to [facility] 04/14/20 because of worsening paresthesias of legs, MRI c/t/l showed T12-L1 OM vs discitis vs malignancy. ASSESSMENT: 1. Ecoli UTI + hydronephrosis 2. Chronic T12-L1 vertebral body destruction Continue to treat for Ecoli UTI. Continue with ceftriaxone. Reviewed MRI lumbar with radiologist and IR, worse than 2012 and 2015, bigger as well. Will complete treatment of UTI over the weekend and obtain biopsy on Saturday with 1 day of antibiotic-free day. Estimated Creatinine Clearance: 52.2 mL/min (A) (based on SCr of 0.99 mg/dL (H)). RECOMMENDATIONS: - cont ceftriaxone #3 - complete 5 day course - IR guided disc biopsy on Saturday, giving 24 hours free of antibiotic prior to this - send for histopath + routine, fungal, AFB cx - consult neurosurgery for opinion of T12-L1 lesion D/w daughter, hospitalist, IR staff Dr Luis Alfredo Mantilla is available over the weekend if there is any question. I will assume care on Saturday if patient is still here. SUBJECTIVE: Interval Events: 04/15 better mentation today Medications: Current Facility-Administered Medications Medication Dose Route Frequency - metoprolol succinate ER 50 mg tab(s) (TOPROL XL) 50 mg ORAL DAILY - citalopram 20 mg tab(s) (CeleXA) 20 mg ORAL DAILY - DULoxetine 30 mg cap(s) (CYMBALTA) 30 mg ORAL DAILY - LORazepam 0.5 mg tab(s) (ATIVAN) 0.5 mg ORAL BID - sertraline 100 mg tab(s) (ZOLOFT) 100 mg ORAL DAILY - oxyCODONE-acetaminoph en 5-325 mg 1 tablet (PERCOCET) 1 tablet ORAL q 4 H PRN - ferrous sulfate 325 mg tab(s) 325 mg ORAL TID w MEALS - predniSONE 40 mg tab(s) (DELTASONE) 40 mg ORAL DAILY - albuterol 2.5 mg /3 mL (0.083 %) 2.5 mg (PROVENTIL) 3 mL INHALATION q 6 H PRN - enoxaparin 40 mg injection (LOVENOX) 40 mg SUBCUTANEOUS DAILY - sodium chloride 0.9 % (flush) 3-5 mL (BD POSIFLUSH) 3-5 mL INTRAVENOUS q 12 H - ondansetron 4 mg tab(s) (ZOFRAN) 4 mg ORAL q 6 H PRN Or - ondansetron (PF) 4 mg injection (ZOFRAN) 4 mg INTRAVENOUS q 6 H PRN - acetaminophen 650 mg tab(s) (TYLENOL) 650 mg ORAL q 6 H PRN - atorvastatin 10 mg tab(s) (LIPITOR) 10 mg ORAL AT BEDTIME - lisinopril 10 mg tab(s) (ZESTRIL, PRINIVIL) 10 mg ORAL DAILY - cefTRIAXone 1 g in D5W 100 mL MB+ (ROCEPHIN) 1 g INTRAVENOUS q 24 H - Hydrochlorothiazide 25 mg 25 mg ORAL DAILY - hydrALAZINE 25 mg tab(s) (APRESOLINE) 25 mg ORAL q 8 H PRN OBJECTIVE: Physical Exam: BP 176/70 Pulse (!) 57 Temp 37.1 ?C (98.8 ?F) (Oral) Resp 16 Ht 152.4 cm (5') Wt 100.2 kg (220 lb 14.4 oz) SpO2 99% BMI 43.14 kg/m? GENERAL APPEARANCE: Comfortable SKIN: No rashes or lesions NEURO: Awake, alert, no involuntary motions Lab data: WBC (thou/cmm) Date Value 2020 6.82 04/14/2020 8.02 07/28/2013 5.1 07/26/2013 6.7 07/24/2013 7.1 Platelet Count (thou/cmm) Date Value 2020 324 04/14/2020 317 07/28/2013 288 07/26/2013 274 07/24/2013 290 Creatinine (mg/dL) Date Value 2020 0.99 04/14/2020 0.97 07/26/2013 1.01 07/24/2013 0.78 07/24/2013 0.68 AST (U/L) Date Value 2020 see below ALT (U/L) Date Value 2020 13 DATA: Diagnostic Tests Reviewed for Today's Visit: Most recent labs Most recent imaging Microbiology data: Positive Micro-30 Days No results found for the last 720 hours. Ecoli 04/13/20 Ampicillin $ >=32 R Ampicillin/Sulbactam $ >=32 R Cefazolin $ <=4 S Cefepime $ <=0.12 S Ceftriaxone $ <=0.25 S Ciprofloxacin $ >=4 R Ertapenim $$$ <=0.12 S ESBL NEG Gentamicin $ >=16 R Imipenem *NF <=0.25 S Levofloxacin $ >=8 R Nitrofurantoin $ <=16 S Piperacillin/Tazobact am $$ 8 S Tobramycin $ 8 I Trimethoprim/Sulfamet ho $ >=320 R Reference Range: S= Susceptible, I= Intermediate, R= Resistant MICS are expressed in micrograms per mL Giovani Shin MD Infectious Disease Respiratory [place] Pager: [phone] Previous Version Debbie Arguelles, PT 2020 1:02 PM Signed Physical Therapy Evaluation SERVICE DATE: 2020 SERVICE TIME: 1106 to 1116 ROOM: [id number] Recommended Discharge Disposition: Subacute/SNF Recommended Discharge Disposition Comments: return to ECF with skilled therapies to return to baseline Justification For Post Acute Needs: Anticipate that patient will require daily (5x/wk) skilled therapy in a post-acute facility setting at the time of acute hospital discharge PT Recommendations to Nursing: Not appropriate for OOB activity at this time PT 6 Clicks Score: 7 Precautions/Activity Restrictions: Fall Risk;Bed/Chair Alarm Isolation Type: None ASSESSMENT : This patient was admitted to [facility] 04/12 with back/flank pain--transferred to [facility] 04/14, has the past medical history of spinal stenosis and arthritis impacting current functional level, as well as the social factors complicating the discharge of lives at [facility] with her --she is w/c bound. This patient is below baseline functioning--per dtr pt could stand with assist x2 but cannot pivot and patient states either uses slide board or sling lift and will benefit from continued skilled therapy in the hospital for treatment of the following body systems/impairments: musculoskeletal and neuromuscular for ROM/strength, functional mobility, balance and endurance Patient Disposition at Start of Session: Supine in Bed;Call [facility] in Re[place] Patient Disposition at End of Session: Supine in Bed;Call [facility] in Reach;Nursing Personnel Present Tolerance Limited By Fatigue Physical Therapy Problem List: Decreased Activity Tolerance;Functional Mobility Impairment;Decreased Range Of Motion;Decreased Strength Patient /Caregiver Goals: Go To Rehab Goals for Plan of Care: Transfer supine to/from sit with: Minimal Assistance Transfer sit to/from stand with: Moderate Assistance(x2) Goal: sit EOB x10 min completing static and dynamic activity Goal: 2x10 reps bilat LE AROM exercises Rehab Potential: Fair PLAN: Treatment Frequency (times per week): 5(1-5) Current admission Treatment Interventions: Education;Joint Mobility;Strengthenin g;Functional Mobility Training;Balance Training Plan of Care developed with: Patient TREATMENT INTERVENTIONS: Therapy Diagnosis: Reduced mobility-other;Muscle Weakness (generalized);Abnorma lities of gait and mobility-other Interventions Provided: Evaluation $ Evaluation-Moderate (62028) Billed Units: 1 unit History and examination of body systems see assessment section above. This patient?s clinical presentation is evolving. The patient required a moderate complexity evaluation. Instruct pt to reach across body for railing and facilitate rolling body left or right Total Treatment Time (minutes): 10 SUBJECTIVE: Current Hospital Course: Chart reviewed; see assessment section Reason for Physical Therapy Consult : eval and treat Relevant Past Medical History: spinal stenosis, arthritis Patient Report: c/o pain right LE Home Environment Patient Lives With: Spouse(with at [facility]) Assistance Available: 24 Hour Equipment Owned: (electric w/c; slide board or sling lift) Prior Functional Level: Required Assistance Assistance Required With: Transfers;Wheelchair Mobility;Self Care Prior Functional Level Comments: per pt slide board transfers or sling lift OBJECTIVE: Range of Motion: ROM Limitation Comments ROM Limitation Comments: bilat LEs limited AAROM Strength: Strength Limitation Comments Strength Limitation Comments: global weakness CURRENT FUNCTIONAL STATUS: Current Functional Mobility Assist Level Additional Information Rolling Maximal Assistance Supine to Sit Sit to Supine Scooting Sit to Stand Stand to Sit Bed to Chair Toilet/Commode Gait Stairs Curb Step Car Transfer -M: 2: Bed activities / dependent transfer Please see discipline specific clinical documentation flowsheet for complete details for this therapy evaluation/treatment. SIGNATURE: Debbie Arguelles PT PATIENT NAME: Patricia Hawley DATE: 2020 TIME: 12:10 PM Susan Jorge MD 2020 6:33 PM Signed CONSULT: NEUROSURGERY SERVICE SERVICE DATE: 2020 SERVICE TIME: 6:06 PM REASON FOR CONSULT: T12 lesion REQUESTING PHYSICIAN: Dr. Lizama PRIMARY CARE PHYSICIAN: Wolf Berry MD Subjective Ms. Hawley is a 75 year old female who presents for evaluation of increasing back and flank pain for the last 3 weeks. Has poor baseline functioning and is wheelchair bound. Fluctuating mental status. [facility] , who has dementia and Parkinson's. Nausea over last month. Multiple surgeries in the past. Has bilateral drop foot for years. Using Has chronic UTI's and twice septic in the last few months. FUNCTIONAL STATUS: Totally dependent PAST MEDICAL HISTORY Diagnosis Date - Dysthymic disorder Depression (non-psychotic) - Obstructive sleep apnea - Unspecified essential hypertension Essential hypertension PAST SURGICAL HISTORY Procedure Laterality Date - LAMINECTOMY,CERVICAL Laminectomy, cervical fusion x2 - PAST SURGICAL HISTORY OF bladder suspenion x2 - REPAIR ROTATOR CUFF,ACUTE Rotator cuff repair bilat - TOTAL HIP REPLACEMENT Hip replacement, total - TOTAL KNEE REPLACEMENT Knee replacement, total - VAGINAL HYSTERECTOMY Hysterectomy, vaginal No family history on file. Social History Tobacco Use - Smoking status: Never Smoker - Smokeless tobacco: Never Used Substance Use Topics - Alcohol use: No - Drug use: No - docusate sodium (COLACE) 100 mg capsule, Take 100 mg by mouth as needed for Constipation., Disp: , Rfl: - ferrous sulfate 325 mg (65 mg iron) tablet, Take 325 mg by mouth three times daily with meals., Disp: , Rfl: - hydroCHLOROthiazide (HYDRODIURIL, ESIDRIX) 25 mg tablet, Take 25 mg by mouth once daily., Disp: , Rfl: - LISINOPRIL ORAL, Take 10 mg by mouth once daily., Disp: , Rfl: - metoprolol tartrate, short acting, (LOPRESSOR) 50 mg tablet, Take 50 mg by mouth twice daily., Disp: , Rfl: - LORazepam (ATIVAN) 0.5 mg, Take 0.5 mg by mouth twice daily., Disp: , Rfl: - zolpidem (AMBIEN) 5 mg tablet, Take 5 mg by mouth at bedtime as needed., Disp: , Rfl: - methadone (DOLOPHINE) 10 mg tablet, Take 10 mg by mouth every 4 hours as needed. 10 mg at 12:00pm , 22:00 pm and 15 mg in the AM, Disp: , Rfl: - Methenamine Hippurate (HIPREX) 1 gram tablet, Take 1 g by mouth twice daily with meals., Disp: , Rfl: - albuterol (PROVENTIL) 2.5 mg /3 mL (0.083 %) nebulizer solution, Use 3 mL via nebulizer every 4 hours., Disp: , Rfl: - diclofenac sodium (VOLTAREN) 1 % topical gel, Apply to affected area four times daily., Disp: , Rfl: - predniSONE (DELTASONE) 20 mg tablet, Take 40 mg by mouth once daily., Disp: , Rfl: - sertraline (ZOLOFT) 100 mg tablet, Take 100 mg by mouth once daily., Disp: , Rfl: - citalopram (CELEXA) 20 mg tablet, Take 20 mg by mouth once daily., Disp: , Rfl: - Gabapentin 300 mg Tab, Take 100 mg by mouth three times daily. , Disp: , Rfl: - meloxicam (MOBIC) 7.5 mg tablet, Take 7.5 mg by mouth once daily., Disp: , Rfl: - pravastatin 40 mg tablet, Take 40 mg by mouth once daily., Disp: , Rfl: - Multivitamins-Mineral s-Lutein (CENTRUM SILVER) Tab, Take 1 tablet by mouth once daily., Disp: , Rfl: - DULoxetine (CYMBALTA) 30 mg capsule, Take 1 a day for 2 weeks, then increase to 2 pills a day., Disp: 60 capsule, Rfl: 3 - LISINOPRIL-HYDROCHLOR OTHIAZIDE 10-12.5 mg ORAL per tablet, 1 tablet once daily., Disp: , Rfl: - metoprolol succinate ER (TOPROL XL) 50 mg 24 hr tablet, Take 50 mg by mouth once daily. , Disp: , Rfl: - oxyCODONE-acetaminoph en (PERCOCET) 5-325 mg ORAL tablet, Take 1 tablet by mouth every 4 hours as needed. , Disp: , Rfl: Current Facility-Administered Medications Medication Dose Route Frequency - metoprolol succinate ER 50 mg tab(s) (TOPROL XL) 50 mg ORAL DAILY - citalopram 20 mg tab(s) (CeleXA) 20 mg ORAL DAILY - DULoxetine 30 mg cap(s) (CYMBALTA) 30 mg ORAL DAILY - LORazepam 0.5 mg tab(s) (ATIVAN) 0.5 mg ORAL BID - sertraline 100 mg tab(s) (ZOLOFT) 100 mg ORAL DAILY - oxyCODONE-acetaminoph en 5-325 mg 1 tablet (PERCOCET) 1 tablet ORAL q 4 H PRN - ferrous sulfate 325 mg tab(s) 325 mg ORAL TID w MEALS - albuterol 2.5 mg /3 mL (0.083 %) 2.5 mg (PROVENTIL) 3 mL INHALATION q 6 H PRN - enoxaparin 40 mg injection (LOVENOX) 40 mg SUBCUTANEOUS DAILY - sodium chloride 0.9 % (flush) 3-5 mL (BD POSIFLUSH) 3-5 mL INTRAVENOUS q 12 H - ondansetron 4 mg tab(s) (ZOFRAN) 4 mg ORAL q 6 H PRN Or - ondansetron (PF) 4 mg injection (ZOFRAN) 4 mg INTRAVENOUS q 6 H PRN - acetaminophen 650 mg tab(s) (TYLENOL) 650 mg ORAL q 6 H PRN - atorvastatin 10 mg tab(s) (LIPITOR) 10 mg ORAL AT BEDTIME - lisinopril 10 mg tab(s) (ZESTRIL, PRINIVIL) 10 mg ORAL DAILY - cefTRIAXone 1 g in D5W 100 mL MB+ (ROCEPHIN) 1 g INTRAVENOUS q 24 H - Hydrochlorothiazide 25 mg 25 mg ORAL DAILY - hydrALAZINE 25 mg tab(s) (APRESOLINE) 25 mg ORAL q 8 H PRN - gabapentin 100 mg cap(s) (NEURONTIN) 100 mg ORAL q 8 H - [START ON 04/16/2020] methadone (DOLOPHINE) tab(s) 15 mg 15 mg ORAL DAILY (6 AM) - methadone 10 mg tab(s) (DOLOPHINE) 10 mg ORAL DAILY AT 12 PM - methadone 10 mg tab(s) (DOLOPHINE) 10 mg ORAL DAILY (10PM) Allergies As of Date: 04/13/2020 Allergen Noted Reaction MACRODANTIN [NITROFURANTOIN] 12/22/2009 GI Upset MORPHINE SULFATE 12/22/2009 GI Upset Fully Assessed 04/13/2020 COMPLETE REVIEW OF SYSTEMS: 10 point ROS is positive for nausea, recurrent UTI's, occasional cough, otherwise negative, had one episode of fever with negative covid Objective PHYSICAL EXAM: Physical Exam Performed: BP 175/84 Pulse 74 Temp (Src) 99 (Oral) Resp 18 Ht 5' 0 (1.52m) Wt 218 lb 14.4 oz (99.3kg) SpO2 97% BMI 42.75 kg/(m2). O2 Therapy: Nasal Cannula, Liters: 3 GENERAL APPEARANCE: Well nourished, well developed, and no apparent distress. NEURO PSYCH: Patient oriented to person, place, and time. Mood pleasant. Benign affect. CARDIOVASCULAR: Palpable pulses. No edema noted. No varicosities. RESPIRATORY: Unlabored respirations, no audible wheezes MUSCULOSKELETAL VISUAL INSPECTION CERVICAL: WNL THORACIC: WNL LUMBAR: WNL PALPATION: No tenderness to palpation MUSCLE BULK: Normal and symmetrical in the upper AND lower extremities. MUSCLE TONE: Normal. MOTOR: HF KE 3/5 DF PF 0/5 bilaterally SENSORY: Decreased sensation to both feet, becomes normal above the ankle GAIT: Cannot ambulate DATA: Diagnostic tests reviewed for today's visit: Most recent labs and imaging results. MRI Lspine - destructive lesion of L1 T12, progressed compared to 2013 CT Lspine - bone errosion Impression/Recommenda tions Active Problems: UTI (urinary tract infection) POA: Yes 75F with worsening back pain and destructive L1/t12 lesion, s/p T120 L5 laminectomy, has L2-L5 non-instrumented fusion, s/p occiput to C6 fusion (Dr. Page) - ddx: infection vs neoplasm - spoke with daughter at length: poor baseline, but no significant change in neurological function recently - plan for IR-guided biopsy - will likely require surgical reconstruction of anterior column. Will determine details of surgical intervention once results of biopsy are available Resolved Problems: * No resolved hospital problems. * SIGNATURE: Susan Jorge MD PATIENT NAME: Patricia Hawley DATE: 2020 TIME: 6:06 PM PAGER: [phone] Jasmina Oakley MD 04/18/2020 9:05 PM Addendum DEPARTMENT OF HOSPITAL MEDICINE PROGRESS NOTE SERVICE DATE: 2020 SERVICE TIME: 7:01 PM Hospital Medicine/Primary Attending: Jasmina Oakley MD NIGHT AND WEEKEND COVERAGE: After 7pm please page [phone] CHIEF COMPLAINT: back pain SUBJECTIVE: Was anxious because of vertebral biopsy. Reports pain in the back. She was on methadone at home which was not continued here. Was restarted today. Denies any chest pain or shortness of breath. No fever or chills. OBJECTIVE: PHYSICAL EXAM: BP 146/90 Pulse 78 Temp (Src) 98.6 (Oral) Resp 18 Ht 5' 0 (1.52m) Wt 218 lb 14.4 oz (99.3kg) SpO2 96% BMI 42.75 kg/(m2). O2 Therapy: Room Air, Liters: 3 GENERAL: Alert, no distress, cooperative, SKIN: Skin color, texture, turgor normal. No rashes or lesions. OROPHARYNX: Lips, mucosa, and tongue normal. Teeth and gums normal. Oropharynx normal. LUNGS: Lungs clear to auscultation, Air entry good, Unlabored breathing. CARDIAC: Normal S1 and S2; no rubs, murmurs, or gallops ABDOMEN: Abdomen soft, non-tender, non-distended, BS normal EXTREMITIES: Normal, no deformities, edema, clubbing or skin discoloration. BACK: Questionable tenderness over lumbar spine. NEURO: awake alert and coherent. MEDICATIONS: Current Facility-Administered Medications Medication Dose Route Frequency - metoprolol succinate ER 50 mg tab(s) (TOPROL XL) 50 mg ORAL DAILY - citalopram 20 mg tab(s) (CeleXA) 20 mg ORAL DAILY - DULoxetine 30 mg cap(s) (CYMBALTA) 30 mg ORAL DAILY - LORazepam 0.5 mg tab(s) (ATIVAN) 0.5 mg ORAL BID - sertraline 100 mg tab(s) (ZOLOFT) 100 mg ORAL DAILY - oxyCODONE-acetaminoph en 5-325 mg 1 tablet (PERCOCET) 1 tablet ORAL q 4 H PRN - ferrous sulfate 325 mg tab(s) 325 mg ORAL TID w MEALS - albuterol 2.5 mg /3 mL (0.083 %) 2.5 mg (PROVENTIL) 3 mL INHALATION q 6 H PRN - enoxaparin 40 mg injection (LOVENOX) 40 mg SUBCUTANEOUS DAILY - sodium chloride 0.9 % (flush) 3-5 mL (BD POSIFLUSH) 3-5 mL INTRAVENOUS q 12 H - ondansetron 4 mg tab(s) (ZOFRAN) 4 mg ORAL q 6 H PRN Or - ondansetron (PF) 4 mg injection (ZOFRAN) 4 mg INTRAVENOUS q 6 H PRN - acetaminophen 650 mg tab(s) (TYLENOL) 650 mg ORAL q 6 H PRN - atorvastatin 10 mg tab(s) (LIPITOR) 10 mg ORAL AT BEDTIME - lisinopril 10 mg tab(s) (ZESTRIL, PRINIVIL) 10 mg ORAL DAILY - cefTRIAXone 1 g in D5W 100 mL MB+ (ROCEPHIN) 1 g INTRAVENOUS q 24 H - Hydrochlorothiazide 25 mg 25 mg ORAL DAILY - hydrALAZINE 25 mg tab(s) (APRESOLINE) 25 mg ORAL q 8 H PRN - gabapentin 100 mg cap(s) (NEURONTIN) 100 mg ORAL q 8 H - [START ON 04/16/2020] methadone (DOLOPHINE) tab(s) 15 mg 15 mg ORAL DAILY (6 AM) - methadone 10 mg tab(s) (DOLOPHINE) 10 mg ORAL DAILY AT 12 PM - methadone 10 mg tab(s) (DOLOPHINE) 10 mg ORAL DAILY (10PM) DATA: Diagnostic tests reviewed for today's visit: CBC, Coags, BMP, Mg, Phos Recent Labs 04/15/20 0354 04/14/20 0205 WBC 6.82 8.02 HB 9.0* 9.0* HCT 28.5* 29.0* PLT 324 317 NA 137 139 K 3.8 3.9 CHLOR 100 103 CO2 25 25 BUN 20 21 CREAT 0.99* 0.97* GLUC 103* 96 CA 9.1 8.9 Liver Function, Amylase, AND Lipase Recent Labs 04/15/20 0354 TPROT 6.1* ALB 3.2* ALT 13 AST see below ALKPHOS 58 TBILI <0.2 Cardiac Enzymes Heme: No results for input(s): RETICP, ABSRETIC, LD, ANTONIETTA, FE, TIBC, TRANSFERSAT in the last 24 hours. No results found for: UALBCR Assessment/Plan Patient Active Hospital Problem List: UTI (urinary tract infection) (04/14/2020) ASSESSMENT: Mrs Hawley transfer most of hospital for the concern of vertebral discitis/osteomyeliti s. ? She has: ? 1. Osteomyelitis/disciti s at T12-L1 and T11-T12 level: Iess likely a malignant process. S/p MRI cervical, thoracic, lumbar spine at OSH- results reviewed. WBC normal. CRP elevated at 27 Initially treated with vancomycin and Zosyn-> ceftriaxone. Evaluated by ID and neurosurgery. Plan is to do IR guided biopsy on Saturday. Neurosurgery is considering surgical reconstruction of anterior column some point in time pending biopsy result. ? 2. UTI pyelonephritis: E. coli. Urinalysis was positive for pyuria at OSH. On ceftriaxone ? 3. History of lumbar and cervical spine surgery: Has hardware/screws in cervical spine ? 4. Debility at baseline: Uses a wheelchair all the time baseline. Resides in a NH ? ? Chronic medical conditions 1. Hypertension: BP high. On lisinopril and HCTZ at home. Currently only on lisinopril 2. Anemia 3. Chronic pain syndrome: On methadone and gabapentin.. Restarted today pain management consulted. 4. COPD 5. Chronic hypoxic respiratory failure 2 L nasal cannula 6. Hyperlipidemia 7. ARCHANA. 8. Anxiety: On citalopram and Cymbalta. Also takes lorazepam as needed especially at night 8. No longer taking prednisone ? ? PLAN: Continue current antibiotics. Plan is to treat with ceftriaxone for UTI and then hold antibiotics. IR guided biopsy on Saturday. Further treatment following the biopsy. Home medications reviewed with patient and daughter. Methadone and gabapentin is started. Reports she was taking Lorazepam as needed especially at night ENTs for anxiety. Made them aware that lorazepam is not treatment of choice for long-term treatment for anxiety and has multiple and significant side effects. We will change lorazepam to 0.5 QHs, if possible will decrease the dose Add HCTZ. Monitor blood pressure closely Pain management consulted VTE Prophylaxis: Lovenox 40mg Sub Q Daily Disposition: To be determined Plan of care discussed with: Patient and Family/Significant Other: dtr SIGNATURE: Jasmina Oakley MD PATIENT NAME: Patricia Hawley DATE: 2020 TIME: 7:01 PM PAGER/CONTACT #: [phone] Previous Version Alyson Thomas MD 04/16/2020 7:25 PM Signed Name: PATRICIA HAWLEY Age: [age] year old PAIN MANAGEMENT: Acute on chronic back pain, T11-12, T12-L1 osteomyelitis/disciti s; multilevel degenerative disc disease Pain Description: Patient complains of sore naris when she presses on her chest. Also complains of intermittent severe pain in her mid lower back Interval HPI: 24H Comfort Meds: Tylenol 650 mg every 6 hours PRN x1 Cymbalta 30 mg daily Gabapentin 100 mg every 8 hours x 2 Methadone 15 mg a.m., 10 mg p.m. and 10 mg at bedtime Percocet 5/325 1 tab every 4 hours PRN Prednisone 40 mg x 1 Subjective HPI: 75-year-old female was transferred from [facility] after diagnostic work-up demonstrated T12-L1 discitis/osteomyeliti s and possible malignant infiltration. Patient initially presented there with right-sided flank and back pain. She was treated for UTI and found to have moderate hydronephrosis. 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 Pain regimen confirmed to [facility] and includes gabapentin 100 mg 3 times daily, Ativan 0.5 mg twice daily as needed, oxycodone 5 mg every 4 hours PRN methadone 15 mg a.m., 10 mg p.m. and 10 mg at at bedtime. She has a history of chronic back pain as well as diffuse osteoarthritis status post right SINAN and right TKA. She states she last walked independently a while ago. Per chart, patient had prior T12/L5 laminectomy, L2-L5 fusion, status post occiput to C6 fusion.she has chronic bilateral foot drop. She is wheelchair-bound. OARRS Review: Negative. Does not reflect [facility] pain regimen as documented above Current Facility-Administered Medications Medication Dose Route Frequency Provider Last Rate Last Dose - Hydrochlorothiazide 25 mg 25 mg ORAL DAILY Jasmina Hazel 25 mg at 04/16/20 1035 - hydrALAZINE 25 mg tab(s) (APRESOLINE) 25 mg ORAL q 8 H PRN Jasmina Hazel 25 mg at 04/15/20 1110 - gabapentin 100 mg cap(s) (NEURONTIN) 100 mg ORAL q 8 H Jasmina Hazel 100 mg at 04/16/20 0623 - methadone (DOLOPHINE) tab(s) 15 mg 15 mg ORAL DAILY (6 AM) Jasmina Hazel 15 mg at 04/16/20 0623 - methadone 10 mg tab(s) (DOLOPHINE) 10 mg ORAL DAILY AT 12 PM Jasmina Hazel 10 mg at 04/15/20 1522 - methadone 10 mg tab(s) (DOLOPHINE) 10 mg ORAL DAILY (10PM) Jasmina Hazel 10 mg at 04/15/20 2124 - LORazepam 0.5 mg tab(s) (ATIVAN) 0.5 mg ORAL AT BEDTIME Jasmina Hazel - metoprolol succinate ER 50 mg tab(s) (TOPROL XL) 50 mg ORAL DAILY Nauhar Pinto 50 mg at 04/16/20 0837 - citalopram 20 mg tab(s) (CeleXA) 20 mg ORAL DAILY Nauhar Pinto 20 mg at 04/16/20 0839 - DULoxetine 30 mg cap(s) (CYMBALTA) 30 mg ORAL DAILY Nauhar Pinto 30 mg at 04/16/20 0839 - sertraline 100 mg tab(s) (ZOLOFT) 100 mg ORAL DAILY Nauhar Pinto 100 mg at 04/16/20 0837 - oxyCODONE-acetaminoph en 5-325 mg 1 tablet (PERCOCET) 1 tablet ORAL q 4 H PRN Nauhar Pinto 1 tablet at 04/15/20 0407 - ferrous sulfate 325 mg tab(s) 325 mg ORAL TID w MEALS Nauhar Pinto 325 mg at 04/16/20 1035 - albuterol 2.5 mg /3 mL (0.083 %) 2.5 mg (PROVENTIL) 3 mL INHALATION q 6 H PRN [facility] - enoxaparin 40 mg injection (LOVENOX) 40 mg [facility]OUS [facility]ILY [facility] at 04/16/20 0836 - sodium chloride 0.9 % (flush) 3-5 mL (BD POSIFLUSH) 3-5 mL INTRAVENOUS q 12 H [facility] at 04/16/20 0837 - ondansetron 4 mg tab(s) (ZOFRAN) 4 mg ORAL q 6 H [facility] at 04/14/20 0951 Or - ondansetron (PF) 4 mg injection (ZOFRAN) 4 mg INTRAVENOUS q 6 H PRN [facility] - acetaminophen 650 mg tab(s) (TYLENOL) 650 mg ORAL q 6 H [facility] at 04/16/20 0024 - atorvastatin 10 mg tab(s) (LIPITOR) 10 mg ORAL AT BEDTIME [facility] 10 mg at 04/15/204 - lisinopril 10 mg tab(s) (ZESTRIL, PRINIVIL) 10 mg ORAL DAILY [facility] 10 mg at 04/16/20 0837 - cefTRIAXone 1 g in D5W 100 mL MB+ (ROCEPHIN) 1 g INTRAVENOUS q 24 H Giovani Shin 200 mL/hr at 04/16/20 0836 1 g at 04/16/20 0836 - docusate sodium (COLACE) 100 mg capsule, Take 100 mg by mouth as needed for Constipation., Disp: , Rfl: - ferrous sulfate 325 mg (65 mg iron) tablet, Take 325 mg by mouth three times daily with meals., Disp: , Rfl: - hydroCHLOROthiazide (HYDRODIURIL, ESIDRIX) 25 mg tablet, Take 25 mg by mouth once daily., Disp: , Rfl: - LISINOPRIL ORAL, Take 10 mg by mouth once daily., Disp: , Rfl: - metoprolol tartrate, short acting, (LOPRESSOR) 50 mg tablet, Take 50 mg by mouth twice daily., Disp: , Rfl: - LORazepam (ATIVAN) 0.5 mg, Take 0.5 mg by mouth twice daily., Disp: , Rfl: - zolpidem (AMBIEN) 5 mg tablet, Take 5 mg by mouth at bedtime as needed., Disp: , Rfl: - methadone (DOLOPHINE) 10 mg tablet, Take 10 mg by mouth every 4 hours as needed. 10 mg at 12:00pm , 22:00 pm and 15 mg in the AM, Disp: , Rfl: - Methenamine Hippurate (HIPREX) 1 gram tablet, Take 1 g by mouth twice daily with meals., Disp: , Rfl: - albuterol (PROVENTIL) 2.5 mg /3 mL (0.083 %) nebulizer solution, Use 3 mL via nebulizer every 4 hours., Disp: , Rfl: - diclofenac sodium (VOLTAREN) 1 % topical gel, Apply to affected area four times daily., Disp: , Rfl: - predniSONE (DELTASONE) 20 mg tablet, Take 40 mg by mouth once daily., Disp: , Rfl: - sertraline (ZOLOFT) 100 mg tablet, Take 100 mg by mouth once daily., Disp: , Rfl: - citalopram (CELEXA) 20 mg tablet, Take 20 mg by mouth once daily., Disp: , Rfl: - Gabapentin 300 mg Tab, Take 100 mg by mouth three times daily. , Disp: , Rfl: - meloxicam (MOBIC) 7.5 mg tablet, Take 7.5 mg by mouth once daily., Disp: , Rfl: - pravastatin 40 mg tablet, Take 40 mg by mouth once daily., Disp: , Rfl: - Multivitamins-Mineral s-Lutein (CENTRUM SILVER) Tab, Take 1 tablet by mouth once daily., Disp: , Rfl: - DULoxetine (CYMBALTA) 30 mg capsule, Take 1 a day for 2 weeks, then increase to 2 pills a day., Disp: 60 capsule, Rfl: 3 - LISINOPRIL-HYDROCHLOR OTHIAZIDE 10-12.5 mg ORAL per tablet, 1 tablet once daily., Disp: , Rfl: - metoprolol succinate ER (TOPROL XL) 50 mg 24 hr tablet, Take 50 mg by mouth once daily. , Disp: , Rfl: - oxyCODONE-acetaminoph en (PERCOCET) 5-325 mg ORAL tablet, Take 1 tablet by mouth every 4 hours as needed. , Disp: , Rfl: Social History Tobacco Use - Smoking status: Never Smoker - Smokeless tobacco: Never Used Substance Use Topics - Alcohol use: No - Drug use: No No family history on file. PAST SURGICAL HISTORY Procedure Laterality Date - LAMINECTOMY,CERVICAL Laminectomy, cervical fusion x2 - PAST SURGICAL HISTORY OF bladder suspenion x2 - REPAIR ROTATOR CUFF,ACUTE Rotator cuff repair bilat - TOTAL HIP REPLACEMENT Hip replacement, total - TOTAL KNEE REPLACEMENT Knee replacement, total - VAGINAL HYSTERECTOMY Hysterectomy, vaginal ROS: All of the following reviewed and negative except as noted below: Significant for HPI GENERAL: no fever, chills, sweats, weight loss, fatigue, generalized weakness HEENT: no headache, vision changes, eye discomfort, hearing change, ear discomfort, sinus pain, nasal discharge or congestion, oral lesions, soreness, dental problem NECK: no adenopathy, discomfort, change in ROM CHEST: no shortness of breath, dyspnea on exertion, wheezing, cough, sputum production or chest pain HEART: no chest pain, palpitations, syncope ABDOMEN: no nausea, vomiting, constipation, diarrhea, abdominal pain : no dysuria, urgency, frequency, history of stones, incontinence NEURO: no confusion or alteration in consciousness, slurred speech, seizure, focal weakness EXTREMITIES: no new pain, edema, change in ROM HEME: no new adenopathy, bruises, petechiae PSYCH: no depression, anxiety, agitation PAIN PSYCHIATRIC EXAM: GENERAL: alert, oriented to person, place JUDGMENT AND INSIGHT: Limited APPEARANCE: neatly groomed DEMEANOR: coooperative, not hostile, mistrustful, preoccupied, or demanding ACTIVITY: normal, not hyperactive or hypoactive, no tremors, tics EYE CONTACT: normal SPEECH: normal, rate, volume, articulation, coherence, spontaneity MOOD: normal, without overt sadness, grief, anxiety, appropriate to situation IDEATION: Deferred mEMORY: Impaired PHYSICAL EXAMINATION: GENERAL: well nourished and developed; pleasant mild confusion; no acute distress; alert and oriented x 2; limited judgement and insight HEENT: no evidence of trauma; cranial nerves intact; eyes clear EOMI; no hearing deficits apparent; nasal passages unremarkable; throat and mucous membranes clear NECK: supple without lymphadenopathy; no JVD; no thyromegaly CHEST: clear bilaterally to auscultation; normal chest movement; no rales or rhonchi HEART: regular rate and rhythm, normal S1 and S2, no murmurs, clicks, rubs, or gallops ABDOMEN: soft; nondistended; bowel sounds present; no hepatomegaly; no splenomegaly; no tenderness EXTREMITIES: no evidence of clubbing; no cyanosis; no deformity; no joint effusion; no edema NEURO: cranial nerves intact; no confusion; no tremor; sensorium normal; bilateral lower extremity weakness and foot drop SKIN: no rash; no skin breakdown; no decubitus lesions HEME: no bruising; no adenopathy PSYCH: no evidence of depression; no anxiety; no agitation; no apparent hallucinations BP 123/65 Pulse (!) 50 Temp 36.7 ?C (98.1 ?F) (Oral) Resp 18 Ht 152.4 cm (5') Wt 96.9 kg (213 lb 9.6 oz) SpO2 97% BMI 41.72 kg/m? BMI 41.72 kg/(m2) Date 04/16/20699 - 04/17/20 0659 Shift 9140-7955 1249-6464 9970-0013 24 Hour Total INTAKE PO 240 240 Shift Total 240 240 OUTPUT Shift Total Weight (kg) 96.9 96.9 96.9 96.9 Date 04/15/20699 - 04/16/2065804/16/20699 - 04/17/20 0659 Shift 4973-7858 4639-7917 1580-5473 24 Hour Total 4607-9340 4210-5425 7849-7332 24 Hour Total INTAKE PO 240 240 PO 240 240 Shift Total 240 240 OUTPUT Urine 6420 922 0853 Void (ml) 850 850 Urine Incontinence/Not Saved 1 x 1 x Output ( External Collection Device 04/13/20 2225) [phone] # of BMs Stool Incontinence 2 x 2 x Shift Total 9549 935 5807 Weight (kg) 100.2 99.3 96.9 96.9 96.9 96.9 96.9 96.9 ABNORMAL/NEW FINDINGS: NONE RADIOLOGY/DIAGNOSTICS : LABORATORY: CBC: No results for input(s): WBC, RBC, HB, HCT, PLT, MCV, MCH, MPV, RDW in the last 24 hours. CMP: No results for input(s): NA, K, CHLOR, CO2, BUN, CREAT, GLUC, TPROT, CA, MG, ALBUMIN, TBILI, ALKPHOS, ALT, AST, ANION in the last 24 hours. Heme: No results for input(s): RETICP, ABSRETIC, LD, ANTONIETTA, FE, TIBC, TRANSFERSAT in the last 24 hours. ASSESSMENT ACTIVE PROBLEM LIST Fracture of Cervical Vertebra, C2 (Hcc) Cervical Spinal Stenosis Myelopathy (Hcc) S/P Cervical Spinal Fusion Shoulder Pain Osteoarthritis, Knee Neck pain Cervicalgia Uti (Urinary Tract Infection) PLAN: Patient with history of multiple prior spine surgeries as outlined above, wheelchair-bound with bilateral foot drop presents with destructive lesion of L1, T12 which is progressed compared to 2013 Poor functional baseline; no significant change in neurologic function Appreciate neurosurgery input. IR guided biopsy pending. 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 and 10 mg at bedtime Change Percocet to oxycodone 5 mg every 4 hours PRN Senna S twice daily Thank you for this consult MD Jasmina Stern MD 04/18/2020 9:05 PM Addendum DEPARTMENT OF HOSPITAL MEDICINE PROGRESS NOTE SERVICE DATE: 04/16/2020 SERVICE TIME: 6:20 PM Hospital Medicine/Primary Attending: Jasmina Oakley MD NIGHT AND WEEKEND COVERAGE: After 7pm please page [phone] CHIEF COMPLAINT: Back pain SUBJECTIVE: Back pain at rest. No fever or chills. No n,v. OBJECTIVE: PHYSICAL EXAM: BP 116/47 Pulse 67 Temp (Src) 98.5 (Oral) Resp 18 Ht 5' 0 (1.52m) Wt 213 lb 9.6 oz (96.9kg) SpO2 99% BMI 41.72 kg/(m2). O2 Therapy: Room Air, Liters: 3 GENERAL: Alert, no distress, cooperative, SKIN: Skin color, texture, turgor normal. No rashes or lesions. OROPHARYNX: Lips, mucosa, and tongue normal. Teeth and gums normal. Oropharynx normal. LUNGS: Lungs clear to auscultation, Air entry good, Unlabored breathing. CARDIAC: Normal S1 and S2; no rubs, murmurs, or gallops ABDOMEN: Abdomen soft, non-tender, non-distended, BS normal EXTREMITIES: Normal, no deformities, edema, clubbing or skin discoloration. NEURO: AA coherent. Strength- weakness in bilateral dorsiflexion and plantar flexors . Reflex decrease in bilateral patella MEDICATIONS: Current Facility-Administered Medications Medication Dose Route Frequency - metoprolol succinate ER 50 mg tab(s) (TOPROL XL) 50 mg ORAL DAILY - citalopram 20 mg tab(s) (CeleXA) 20 mg ORAL DAILY - DULoxetine 30 mg cap(s) (CYMBALTA) 30 mg ORAL DAILY - sertraline 100 mg tab(s) (ZOLOFT) 100 mg ORAL DAILY - oxyCODONE-acetaminoph en 5-325 mg 1 tablet (PERCOCET) 1 tablet ORAL q 4 H PRN - ferrous sulfate 325 mg tab(s) 325 mg ORAL TID w MEALS - albuterol 2.5 mg /3 mL (0.083 %) 2.5 mg (PROVENTIL) 3 mL INHALATION q 6 H PRN - enoxaparin 40 mg injection (LOVENOX) 40 mg SUBCUTANEOUS DAILY - sodium chloride 0.9 % (flush) 3-5 mL (BD POSIFLUSH) 3-5 mL INTRAVENOUS q 12 H - ondansetron 4 mg tab(s) (ZOFRAN) 4 mg ORAL q 6 H PRN Or - ondansetron (PF) 4 mg injection (ZOFRAN) 4 mg INTRAVENOUS q 6 H PRN - acetaminophen 650 mg tab(s) (TYLENOL) 650 mg ORAL q 6 H PRN - atorvastatin 10 mg tab(s) (LIPITOR) 10 mg ORAL AT BEDTIME - lisinopril 10 mg tab(s) (ZESTRIL, PRINIVIL) 10 mg ORAL DAILY - cefTRIAXone 1 g in D5W 100 mL MB+ (ROCEPHIN) 1 g INTRAVENOUS q 24 H - Hydrochlorothiazide 25 mg 25 mg ORAL DAILY - hydrALAZINE 25 mg tab(s) (APRESOLINE) 25 mg ORAL q 8 H PRN - gabapentin 100 mg cap(s) (NEURONTIN) 100 mg ORAL q 8 H - methadone (DOLOPHINE) tab(s) 15 mg 15 mg ORAL DAILY (6 AM) - methadone 10 mg tab(s) (DOLOPHINE) 10 mg ORAL DAILY AT 12 PM - methadone 10 mg tab(s) (DOLOPHINE) 10 mg ORAL DAILY (10PM) - LORazepam 0.5 mg tab(s) (ATIVAN) 0.5 mg ORAL AT BEDTIME DATA: Diagnostic tests reviewed for today's visit: CBC, Coags, BMP, Mg, Phos Recent Labs 04/15/20 0354 04/14/20 0205 WBC 6.82 8.02 HB 9.0* 9.0* HCT 28.5* 29.0* PLT 324 317 NA 137 139 K 3.8 3.9 CHLOR 100 103 CO2 25 25 BUN 20 21 CREAT 0.99* 0.97* GLUC 103* 96 CA 9.1 8.9 Liver Function, Amylase, AND Lipase Recent Labs 04/15/20 0354 TPROT 6.1* ALB 3.2* ALT 13 AST see below ALKPHOS 58 TBILI <0.2 Cardiac Enzymes Heme: No results for input(s): RETICP, ABSRETIC, LD, ANTONIETTA, FE, TIBC, TRANSFERSAT in the last 24 hours. No results found for: UALBCR Assessment/Plan Patient Active Hospital Problem List: UTI (urinary tract infection) (04/14/2020) ASSESSMENT: Mrs Hawley?transfer most of hospital for the concern of vertebral discitis/osteomyeliti s. ? She has: ? 1.??Osteomyelitis/dis citis at T12-L1 and T11-T12 level: Iess likely a malignant process. S/p?MRI cervical, thoracic, lumbar spine at OSH-?results reviewed. WBC normal. ?CRP elevated at 27 Initially treated with vancomycin and Zosyn-> ceftriaxone. Evaluated by ID and neurosurgery. Plan is to do IR guided biopsy on Saturday. Neurosurgery is considering surgical reconstruction of anterior column some point in time pending biopsy result. ? 2. ?UTI pyelonephritis: E. coli. Urinalysis was positive for pyuria at?OSH. on ceftriaxone ? 3. ?History of lumbar and cervical spine surgery: Has hardware/screws in cervical spine ? 4. ?Debility at baseline: Uses a wheelchair all the time baseline. Resides in a NH ? ? Chronic medical conditions 1. ?Hypertension: BP high. On lisinopril and HCTZ at home. Currently only on lisinopril 2. ?Anemia 3. ?Chronic pain syndrome: On methadone and gabapentin.. Restarted today pain management consulted. 4. ?COPD 5. ?Chronic hypoxic respiratory failure 2 L nasal cannula 6. ?Hyperlipidemia 7. ?ARCHANA. 8. Anxiety: On citalopram and Cymbalta. Also takes lorazepam as needed especially at night 8. No longer taking prednisone ? PLAN: Continue current treatment. IR-guided biopsy on Saturday. Pain management to see the patient VTE Prophylaxis: Lovenox 40mg Sub Q Daily Disposition: To be determined Plan of care discussed with: Patient SIGNATURE: Jasmina Oakley MD PATIENT NAME: Patricia Hawley DATE: April 16, 2020 TIME: 6:20 PM PAGER/CONTACT #: [phone] Previous Version BON Roberts, PA 04/17/2020 9:21 AM Signed Neurosurgery Progress Note SERVICE DATE: 04/17/2020 SUBJECTIVE: Pt sitting up in bed eating breakfast. States 'hanging in there.' pain controlled. OBJECTIVE: Vitals: Temp (24hrs), Av.1 ?C (98.8 ?F), Min:36.9 ?C (98.5 ?F), Max:37.4 ?C (99.4 ?F) BP (!) 111/40 Pulse 74 Temp 37 ?C (98.6 ?F) (Oral) Resp 18 Ht 152.4 cm (5') Wt 97.1 kg (214 lb) SpO2 100% BMI 41.79 kg/m? O2 Therapy: Room Air IANDO: Date 04/16/20699 - 04/17/20 0659 04/17/20 07 - 04/18/20 0659 Shift 7151-1231 8228-7163 1468-3739 24 Hour Total 9177-8685 4040-1530 4222-1153 24 Hour Total INTAKE PO 240 50 290 PO 240 50 290 Shift Total 240 50 290 OUTPUT Urine 400 1100 1500 Void (ml) 400 400 Urine Not Saved. 2 x 2 x Output ( External Collection Device 04/13/202224) 1100 1100 Shift Total 400 1100 1500 Weight (kg) 96.9 97.1 97.1 97.1 97.1 97.1 97.1 97.1 MEDICATIONS Current Facility-Administered Medications Medication Dose Route Frequency - NaCl 0.9% iv infusion 100 mL/hr INTRAVENOUS CONTINUOUS - lisinopril 5 mg tab(s) (ZESTRIL, PRINIVIL) 5 mg ORAL DAILY - Hydrochlorothiazide 12.5 mg 12.5 mg ORAL DAILY - oxyCODONE IR 5 mg tab(s) (ROXICODONE) 5 mg ORAL q 4 H PRN - senna-docusate 8.6-50 mg 1 tablet (SENNA-S) 1 tablet ORAL BID - hydrALAZINE 25 mg tab(s) (APRESOLINE) 25 mg ORAL q 8 H PRN - gabapentin 100 mg cap(s) (NEURONTIN) 100 mg ORAL q 8 H - methadone (DOLOPHINE) tab(s) 15 mg 15 mg ORAL DAILY (6 AM) - methadone 10 mg tab(s) (DOLOPHINE) 10 mg ORAL DAILY AT 12 PM - methadone 10 mg tab(s) (DOLOPHINE) 10 mg ORAL DAILY (10PM) - LORazepam 0.5 mg tab(s) (ATIVAN) 0.5 mg ORAL AT BEDTIME - metoprolol succinate ER 50 mg tab(s) (TOPROL XL) 50 mg ORAL DAILY - citalopram 20 mg tab(s) (CeleXA) 20 mg ORAL DAILY - DULoxetine 30 mg cap(s) (CYMBALTA) 30 mg ORAL DAILY - sertraline 100 mg tab(s) (ZOLOFT) 100 mg ORAL DAILY - ferrous sulfate 325 mg tab(s) 325 mg ORAL TID w MEALS - albuterol 2.5 mg /3 mL (0.083 %) 2.5 mg (PROVENTIL) 3 mL INHALATION q 6 H PRN - enoxaparin 40 mg injection (LOVENOX) 40 mg SUBCUTANEOUS DAILY - sodium chloride 0.9 % (flush) 3-5 mL (BD POSIFLUSH) 3-5 mL INTRAVENOUS q 12 H - ondansetron 4 mg tab(s) (ZOFRAN) 4 mg ORAL q 6 H PRN Or - ondansetron (PF) 4 mg injection (ZOFRAN) 4 mg INTRAVENOUS q 6 H PRN - acetaminophen 650 mg tab(s) (TYLENOL) 650 mg ORAL q 6 H PRN - atorvastatin 10 mg tab(s) (LIPITOR) 10 mg ORAL AT BEDTIME Labs: Recent Labs 04/17/20 0553 04/15/20 0354 NA 139 137 K 4.2 3.8 CHLOR 97 100 CO2 31* 25 BUN 28* 20 CREAT 1.22* 0.99* GLUC 78 103* ANION 11 12 CA 9.3 9.1 ALB -- 3.2* AST -- see below ALT -- 13 ALKPHOS -- 58 TBILI -- <0.2 WBC -- 6.82 HB -- 9.0* HCT -- 28.5* PLT -- 324 Exam: GENERAL: No distress, Alert, pleasant and conversant NEURO: orientedx3; BLE weakness left more than right; moves BUE well with weak dish up person/intrinsics though feeding herself without issue HEENT: normocephalic, atraumatic LUNGS: Unlabored breathing SKIN: Skin color, texture, turgor normal, No rashes or lesions ASSESSMENT AND PLAN: Active Hospital Problems Diagnosis Date Noted - UTI (urinary tract infection) 04/14/2020 75 year old female advanced OM - destructive T12/L1 lesion - neuro stable - to go to IR on Sat or for biopsy - pain control - PM on board - plan pending based on IR findings SIGNATURE: BON Roberts PATIENT NAME: Patricia Hawley DATE: April 17, 2020 TIME: 9:16 AM Pager: [phone] Alyson Thomas MD 04/17/2020 2:00 PM Signed Name: PATRICIA HAWLEY Age: [age] year old PAIN MANAGEMENT: Acute on chronic back pain, T11-12, T12-L1 osteomyelitis/disciti s; multilevel degenerative disc disease Pain Description: Intermittent pain low back; on her right side. Worse with movement 24H Comfort Meds: Tylenol 650 mg x0 Cymbalta 30 mg daily Gabapentin 100 mg x 3 Methadone 15 mg a.m., 10 mg p.m. and 10 mg at bedtime Oxycodone 5 mg x 1 Prednisone 40 mg x 1 Interval HPI: Stable overnight; exam unchanged T12-L1 lesion biopsy pending Subjective HPI: 75-year-old female was transferred from [facility] after diagnostic work-up demonstrated T12-L1 discitis/osteomyeliti s and possible malignant infiltration. Patient initially presented there with right-sided flank and back pain. She was treated for UTI and found to have moderate hydronephrosis. 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 Pain regimen confirmed to [facility] and includes gabapentin 100 mg 3 times daily, Ativan 0.5 mg twice daily as needed, oxycodone 5 mg every 4 hours PRN methadone 15 mg a.m., 10 mg p.m. and 10 mg at at bedtime. She has a history of chronic back pain as well as diffuse osteoarthritis status post right SINAN and right TKA. She states she last walked independently a while ago. Per chart, patient had prior T12/L5 laminectomy, L2-L5 fusion, status post occiput to C6 fusion.she has chronic bilateral foot drop. She is wheelchair-bound. OARRS Review: Negative. Does not reflect [facility] pain regimen as documented above Current Facility-Administered Medications Medication Dose Route Frequency Provider Last Rate Last Dose - NaCl 0.9% iv infusion 100 mL/hr INTRAVENOUS CONTINUOUS Jasmina Hazel 100 mL/hr at 04/17/20 0834 100 mL/hr at 04/17/20 0834 - lisinopril 5 mg tab(s) (ZESTRIL, PRINIVIL) 5 mg ORAL DAILY Jasmina Hazel 5 mg at 04/17/20 0839 - Hydrochlorothiazide 12.5 mg 12.5 mg ORAL DAILY Jasmina Hazel 12.5 mg at 04/17/20 0836 - oxyCODONE IR 5 mg tab(s) (ROXICODONE) 5 mg ORAL q 4 H PRN Alyson K Scantling 5 mg at 04/17/20 0539 - senna-docusate 8.6-50 mg 1 tablet (SENNA-S) 1 tablet ORAL BID Alyson K Scantling 1 tablet at 04/17/20 0837 - hydrALAZINE 25 mg tab(s) (APRESOLINE) 25 mg ORAL q 8 H PRN Jasmina Hazel 25 mg at 04/15/20 1110 - gabapentin 100 mg cap(s) (NEURONTIN) 100 mg ORAL q 8 H Jasmina Hazel 100 mg at 04/17/20 0544 - methadone (DOLOPHINE) tab(s) 15 mg 15 mg ORAL DAILY (6 AM) Jasmina Hazel 15 mg at 04/17/20 0539 - methadone 10 mg tab(s) (DOLOPHINE) 10 mg ORAL DAILY AT 12 PM Jasmina Hazel 10 mg at 04/17/20 1128 - methadone 10 mg tab(s) (DOLOPHINE) 10 mg ORAL DAILY (10PM) Jasmina Hazel 10 mg at 04/16/202001 - LORazepam 0.5 mg tab(s) (ATIVAN) 0.5 mg ORAL AT BEDTIME Jasmina Hazel 0.5 mg at 04/16/202000 - metoprolol succinate ER 50 mg tab(s) (TOPROL XL) 50 mg ORAL DAILY Naar Pinto 50 mg at 04/16/20 0837 - citalopram 20 mg tab(s) (CeleXA) 20 mg ORAL DAILY Nauhar Pinto 20 mg at 04/17/20 0836 - DULoxetine 30 mg cap(s) (CYMBALTA) 30 mg ORAL DAILY Nauhar Pinto 30 mg at 04/17/20 0837 - sertraline 100 mg tab(s) (ZOLOFT) 100 mg ORAL DAILY Nauhar Pinto 100 mg at 04/17/20 0837 - ferrous sulfate 325 mg tab(s) 325 mg ORAL TID w MEALS Naar Pinto 325 mg at 04/17/20 1124 - albuterol 2.5 mg /3 mL (0.083 %) 2.5 mg (PROVENTIL) 3 mL INHALATION q 6 H PRN Naar Pinto - enoxaparin 40 mg injection (LOVENOX) 40 mg SUBCUTANEOUS DAILY Naar Pinto 40 mg at 04/17/20 0837 - sodium chloride 0.9 % (flush) 3-5 mL (BD POSIFLUSH) 3-5 mL INTRAVENOUS q 12 H Nauhar Pinto 3 mL at 04/17/20 0837 - ondansetron 4 mg tab(s) (ZOFRAN) 4 mg ORAL q 6 H PRN Nauhar Pinto 4 mg at 04/14/20 0951 Or - ondansetron (PF) 4 mg injection (ZOFRAN) 4 mg INTRAVENOUS q 6 H PRN Nauhar Pinto - acetaminophen 650 mg tab(s) (TYLENOL) 650 mg ORAL q 6 H PRN Nauhar Pinto 650 mg at 04/16/20 0024 - atorvastatin 10 mg tab(s) (LIPITOR) 10 mg [facility] AT [facility] 04/16/202000 - docusate sodium (COLACE) 100 mg capsule, Take 100 mg by mouth as needed for Constipation., Disp: , Rfl: - ferrous sulfate 325 mg (65 mg iron) tablet, Take 325 mg by mouth three times daily with meals., Disp: , Rfl: - hydroCHLOROthiazide (HYDRODIURIL, ESIDRIX) 25 mg tablet, Take 25 mg by mouth once daily., Disp: , Rfl: - LISINOPRIL ORAL, Take 10 mg by mouth once daily., Disp: , Rfl: - metoprolol tartrate, short acting, (LOPRESSOR) 50 mg tablet, Take 50 mg by mouth twice daily., Disp: , Rfl: - LORazepam (ATIVAN) 0.5 mg, Take 0.5 mg by mouth twice daily., Disp: , Rfl: - zolpidem (AMBIEN) 5 mg tablet, Take 5 mg by mouth at bedtime as needed., Disp: , Rfl: - methadone (DOLOPHINE) 10 mg tablet, Take 10 mg by mouth every 4 hours as needed. 10 mg at 12:00pm , 22:00 pm and 15 mg in the AM, Disp: , Rfl: - Methenamine Hippurate (HIPREX) 1 gram tablet, Take 1 g by mouth twice daily with meals., Disp: , Rfl: - albuterol (PROVENTIL) 2.5 mg /3 mL (0.083 %) nebulizer solution, Use 3 mL via nebulizer every 4 hours., Disp: , Rfl: - diclofenac sodium (VOLTAREN) 1 % topical gel, Apply to affected area four times daily., Disp: , Rfl: - predniSONE (DELTASONE) 20 mg tablet, Take 40 mg by mouth once daily., Disp: , Rfl: - sertraline (ZOLOFT) 100 mg tablet, Take 100 mg by mouth once daily., Disp: , Rfl: - citalopram (CELEXA) 20 mg tablet, Take 20 mg by mouth once daily., Disp: , Rfl: - Gabapentin 300 mg Tab, Take 100 mg by mouth three times daily. , Disp: , Rfl: - meloxicam (MOBIC) 7.5 mg tablet, Take 7.5 mg by mouth once daily., Disp: , Rfl: - pravastatin 40 mg tablet, Take 40 mg by mouth once daily., Disp: , Rfl: - Multivitamins-Mineral s-Lutein (CENTRUM SILVER) Tab, Take 1 tablet by mouth once daily., Disp: , Rfl: - DULoxetine (CYMBALTA) 30 mg capsule, Take 1 a day for 2 weeks, then increase to 2 pills a day., Disp: 60 capsule, Rfl: 3 - LISINOPRIL-HYDROCHLOR OTHIAZIDE 10-12.5 mg ORAL per tablet, 1 tablet once daily., Disp: , Rfl: - metoprolol succinate ER (TOPROL XL) 50 mg 24 hr tablet, Take 50 mg by mouth once daily. , Disp: , Rfl: - oxyCODONE-acetaminoph en (PERCOCET) 5-325 mg ORAL tablet, Take 1 tablet by mouth every 4 hours as needed. , Disp: , Rfl: Social History Tobacco Use - Smoking status: Never Smoker - Smokeless tobacco: Never Used Substance Use Topics - Alcohol use: No - Drug use: No No family history on file. PAST SURGICAL HISTORY Procedure Laterality Date - LAMINECTOMY,CERVICAL Laminectomy, cervical fusion x2 - PAST SURGICAL HISTORY OF bladder suspenion x2 - REPAIR ROTATOR CUFF,ACUTE Rotator cuff repair bilat - TOTAL HIP REPLACEMENT Hip replacement, total - TOTAL KNEE REPLACEMENT Knee replacement, total - VAGINAL HYSTERECTOMY Hysterectomy, vaginal ROS: All of the following reviewed and negative except as noted below: Significant for HPI GENERAL: no fever, chills, sweats, weight loss, fatigue, generalized weakness HEENT: no headache, vision changes, eye discomfort, hearing change, ear discomfort, sinus pain, nasal discharge or congestion, oral lesions, soreness, dental problem NECK: no adenopathy, discomfort, change in ROM CHEST: no shortness of breath, dyspnea on exertion, wheezing, cough, sputum production or chest pain HEART: no chest pain, palpitations, syncope ABDOMEN: no nausea, vomiting, constipation, diarrhea, abdominal pain : no dysuria, urgency, frequency, history of stones, incontinence NEURO: no confusion or alteration in consciousness, slurred speech, seizure, focal weakness EXTREMITIES: no new pain, edema, change in ROM HEME: no new adenopathy, bruises, petechiae PSYCH: no depression, anxiety, agitation PAIN PSYCHIATRIC EXAM: GENERAL: alert, oriented to person, place JUDGMENT AND INSIGHT: Limited APPEARANCE: neatly groomed DEMEANOR: coooperative, not hostile, mistrustful, preoccupied, or demanding ACTIVITY: normal, not hyperactive or hypoactive, no tremors, tics EYE CONTACT: normal SPEECH: normal, rate, volume, articulation, coherence, spontaneity MOOD: normal, without overt sadness, grief, anxiety, appropriate to situation IDEATION: Deferred mEMORY: Impaired PHYSICAL EXAMINATION: GENERAL: well nourished and developed; pleasant mild confusion; no acute distress; alert and oriented x 2; limited judgement and insight HEENT: no evidence of trauma; cranial nerves intact; eyes clear EOMI; no hearing deficits apparent; nasal passages unremarkable; throat and mucous membranes clear NECK: supple without lymphadenopathy; no JVD; no thyromegaly CHEST: clear bilaterally to auscultation; normal chest movement; no rales or rhonchi HEART: regular rate and rhythm, normal S1 and S2, no murmurs, clicks, rubs, or gallops ABDOMEN: soft; nondistended; bowel sounds present; no hepatomegaly; no splenomegaly; no tenderness EXTREMITIES: no evidence of clubbing; no cyanosis; no deformity; no joint effusion; no edema NEURO: cranial nerves intact; no confusion; no tremor; sensorium normal; bilateral lower extremity weakness and foot drop SKIN: no rash; no skin breakdown; no decubitus lesions HEME: no bruising; no adenopathy PSYCH: no evidence of depression; no anxiety; no agitation; no apparent hallucinations BP (!) 133/49 Pulse 64 Temp 37 ?C (98.6 ?F) (Oral) Resp 18 Ht 152.4 cm (5') Wt 97.1 kg (214 lb) SpO2 100% BMI 41.79 kg/m? BMI 41.79 kg/(m2) Date 04/16/20699 - 04/17/20658 Shift 4605-1878 2805-3602 4459-7209 24 Hour Total INTAKE PO 240 240 Shift Total 240 240 OUTPUT Shift Total Weight (kg) 96.9 96.9 96.9 96.9 Date 04/15/20699 - 04/16/2065804/16/20699 - 04/17/2059 Shift 3425-4588 3583-9325 6757-8790 24 Hour Total 4456-0992 3509-8560 8677-3590 24 Hour Total INTAKE PO 240 240 PO 240 240 Shift Total 240 240 OUTPUT Urine 4090 468 5230 Void (ml) 850 850 Urine Incontinence/Not Saved 1 x 1 x Output ( External Collection Device 04/13/20 2225) 510 206 1561 # of BMs Stool Incontinence 2 x 2 x Shift Total 6142 538 9520 Weight (kg) 100.2 99.3 96.9 96.9 96.9 96.9 96.9 96.9 ABNORMAL/NEW FINDINGS: NONE RADIOLOGY/DIAGNOSTICS : LABORATORY: CBC: No results for input(s): WBC, RBC, HB, HCT, PLT, MCV, MCH, MPV, RDW in the last 24 hours. CMP: Recent Labs 04/17/20 0553 NA 139 K 4.2 CHLOR 97 CO2 31* BUN 28* CREAT 1.22* GLUC 78 CA 9.3 ANION 11 Heme: No results for input(s): RETICP, ABSRETIC, LD, ANTONIETTA, FE, TIBC, TRANSFERSAT in the last 24 hours. ASSESSMENT ACTIVE PROBLEM LIST Fracture of Cervical Vertebra, C2 (Hcc) Cervical Spinal Stenosis Myelopathy (Hcc) S/P Cervical Spinal Fusion Shoulder Pain Osteoarthritis, Knee Neck pain Cervicalgia Uti (Urinary Tract Infection) PLAN: Patient with history of multiple prior spine surgeries as outlined above, wheelchair-bound with bilateral foot drop presents with destructive lesion of L1, T12 which is progressed compared to 2013 Poor functional baseline; no significant change in neurologic function Appreciate neurosurgery input. IR guided biopsy pending- either Sat or . 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 and 10 mg at bedtime Oxycodone 5 mg every 4 hours PRN Senna S twice daily MD Saloni Stern, RN, RN 04/17/2020 2:15 PM Signed Nursing Progress Note Patient Name: Patricia Hawley Patient Location: [id number]/[facility]- [id number] Daily Note: Spoke with pt daughter at this time, updating her on her mother. Per the daughter would like a call if a time is set for pt procedure. This note was completed by: KIRK Montoya MD 04/18/2020 9:04 PM Addendum DEPARTMENT OF HOSPITAL MEDICINE PROGRESS NOTE SERVICE DATE: 04/17/2020 SERVICE TIME: 7:00 PM Hospital Medicine/Primary Attending: Jasmina Oakley MD NIGHT AND WEEKEND COVERAGE: After 7pm please page [phone] CHIEF COMPLAINT: back pain. UTI SUBJECTIVE: Back pain not much at baseline. Weakness at baseline. No fever or chills OBJECTIVE: PHYSICAL EXAM: BP 120/45 Pulse 68 Temp (Src) 98.2 (Oral) Resp 18 Ht 5' 0 (1.52m) Wt 216 lb 3.2 oz (98.1kg) SpO2 100% BMI 42.22 kg/(m2). O2 Therapy: Nasal Cannula, Liters: 3 GENERAL: Alert, no distress, cooperative, SKIN: Skin color, texture, turgor normal. No rashes or lesions. OROPHARYNX: Lips, mucosa, and tongue normal. Teeth and gums normal. Oropharynx normal. LUNGS: Lungs clear to auscultation, Air entry good, Unlabored breathing. CARDIAC: Normal S1 and S2; no rubs, murmurs, or gallops ABDOMEN: Abdomen soft, non-tender, non-distended, BS normal EXTREMITIES: Normal, no deformities, edema, clubbing or skin discoloration. BACK: no tenderness. NEURO: AA coherent. ?Strength-?weakness in bilateral dorsiflexion and plantar flexors?.???Reflex decrease in bilateral patella MEDICATIONS: Current Facility-Administered Medications Medication Dose Route Frequency - metoprolol succinate ER 50 mg tab(s) (TOPROL XL) 50 mg ORAL DAILY - citalopram 20 mg tab(s) (CeleXA) 20 mg ORAL DAILY - DULoxetine 30 mg cap(s) (CYMBALTA) 30 mg ORAL DAILY - sertraline 100 mg tab(s) (ZOLOFT) 100 mg ORAL DAILY - ferrous sulfate 325 mg tab(s) 325 mg ORAL TID w MEALS - albuterol 2.5 mg /3 mL (0.083 %) 2.5 mg (PROVENTIL) 3 mL INHALATION q 6 H PRN - enoxaparin 40 mg injection (LOVENOX) 40 mg SUBCUTANEOUS DAILY - sodium chloride 0.9 % (flush) 3-5 mL (BD POSIFLUSH) 3-5 mL INTRAVENOUS q 12 H - ondansetron 4 mg tab(s) (ZOFRAN) 4 mg ORAL q 6 H PRN Or - ondansetron (PF) 4 mg injection (ZOFRAN) 4 mg INTRAVENOUS q 6 H PRN - acetaminophen 650 mg tab(s) (TYLENOL) 650 mg ORAL q 6 H PRN - atorvastatin 10 mg tab(s) (LIPITOR) 10 mg ORAL AT BEDTIME - hydrALAZINE 25 mg tab(s) (APRESOLINE) 25 mg ORAL q 8 H PRN - gabapentin 100 mg cap(s) (NEURONTIN) 100 mg ORAL q 8 H - methadone (DOLOPHINE) tab(s) 15 mg 15 mg ORAL DAILY (6 AM) - methadone 10 mg tab(s) (DOLOPHINE) 10 mg ORAL DAILY AT 12 PM - methadone 10 mg tab(s) (DOLOPHINE) 10 mg ORAL DAILY (10PM) - LORazepam 0.5 mg tab(s) (ATIVAN) 0.5 mg ORAL AT BEDTIME - oxyCODONE IR 5 mg tab(s) (ROXICODONE) 5 mg ORAL q 4 H PRN - senna-docusate 8.6-50 mg 1 tablet (SENNA-S) 1 tablet ORAL BID - lisinopril 5 mg tab(s) (ZESTRIL, PRINIVIL) 5 mg ORAL DAILY - Hydrochlorothiazide 12.5 mg 12.5 mg ORAL DAILY DATA: Diagnostic tests reviewed for today's visit: CBC, Coags, BMP, Mg, Phos Recent Labs 04/17/20 0553 04/15/20 0354 WBC -- 6.82 HB -- 9.0* HCT -- 28.5* PLT -- 324 NA 139 137 K 4.2 3.8 CHLOR 97 100 CO2 31* 25 BUN 28* 20 CREAT 1.22* 0.99* GLUC 78 103* CA 9.3 9.1 Liver Function, Amylase, AND Lipase Recent Labs 04/15/20 0354 TPROT 6.1* ALB 3.2* ALT 13 AST see below ALKPHOS 58 T (more content not included)... Normal [facility] UA COMPLETEon 08-04-2019 UA BACTERIA 4+ /HPF Normal NONE [facility] Comment on above: Performed By: #### L [id number] #### [facility] [address] [place] [address] UA LK ESTERASE 500 Normal NEGATIVE [facility] Comment on above: Performed By: #### L [id number] #### [facility] [address] [place] [address] UA NITRITE Positive Normal NEGATIVE [facility] Comment on above: Performed By: #### L [id number] #### [facility] [address] [place] [address] UA WBC 225 WBC/HPF High 0-5 [facility] Comment on above: Performed By: #### L 600.55523 #### [facility] [address] [place] [address] UA YEAST FEW Normal NONE [facility] Comment on above: Performed By: #### L 600.98967 #### [facility] [address] [place] [address] Color (U) Yellow Normal [facility] Comment on above: Performed By: #### L [id number] #### [facility] [address] [place], [place] [id number] Glucose (U) [Mass/Vol] Negative Normal NORMAL [facility] Comment on above: Performed By: #### L 600.52714 #### [facility] [address] [place] [address] Mucus Ql (Urine sed) TRACE Normal NEGATIVE [facility] Comment on above: Performed By: #### L 600.38997 #### [facility] [address] [place] [address] SQUAMOUS EPIS 0 EPI/HPF Normal 0-5 [facility] Comment on above: Performed By: #### L 600.45112 #### [facility] [address] [place] [address] UA APPEARANCE Cloudy Normal CLEAR [facility] Comment on above: Performed By: #### L 600.82755 #### [facility] [place] [address] UA BILIRUBIN Negative Normal NEGATIVE [facility] Comment on above: Performed By: #### L 600.37954 #### [facility] [address] [place] [address] UA BLOOD SMALL Normal NEGATIVE [facility] Comment on above: Performed By: #### L 600.81441 #### [facility] [address] [place] [address] UA KETONE Negative Normal NEGATIVE [facility] Comment on above: Performed By: #### L 600.47273 #### [facility] [address] [place] [address] UA PH 6.0 Normal 5-6 [facility] Comment on above: Performed By: #### L 600.25730 #### [facility] [address] [place] [address] UA PROTEIN 30 Normal NEGATIVE [facility] Comment on above: Performed By: #### L 600.10130 #### [facility] [address] [place] [address] UA RBC 5 RBC/HPF High 0-3 [facility] Comment on above: Performed By: #### L 600.59934 #### [facility] [address] [place] [address] UA SPEC GRAV 1.013 Normal 1.005-1.030 [facility] Comment on above: Performed By: #### L 600.44061 #### [facility] [address] [place] [address] UA UROBILINOGEN Negative Normal NORMAL [facility] Comment on above: Performed By: #### L 600.57784 #### [facility] [address] [place] [address] WBC CLUMPS MANY Normal [facility] Comment on above: Performed By: #### L 600.67546 #### [facility] [address] [place] [address] Office Visit: sore throaton 06-09-2017 Protein mass conc Done Invalid Interpretation Code [employer] [facility] Work Phone: Tobacco smoking status [facility] Never smoker Invalid Interpretation Code [facility] Work Phone: Office Visit: [facility] 06-05-20 17 Fall risk assessment Yes Invalid Interpretation Code [facility] Work Phone: Clinical Lists 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: 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 06-04-2017 Left ventricular Ejection fraction 45 % Invalid Interpretation Code [facility] Work Phone: Office Visit: UC: Leg woundo n 06-04-2017 Protein mass conc Done Invalid Interpretation Code [facility] Work Phone: Tobacco smoking status [facility] Never smoker Invalid Interpretation Code [facility] Work Phone: Office Visiton 10-28-2015 General cardiovascular disease 10Y risk [#] [place].D'Agostino 9 % Invalid Interpretation Code [facility] Work Phone: Replaced Document: Demetrismark E CG Observationson 04-11-2015 EKG QRS axis -8 deg Invalid Interpretation Code [facility] Work Phone: Interpretation Sinus Bradycardia Lo w voltage in precordial leads. ABNORMAL Invalid Interpretation Code [facility] Work Phone: P Chester 22 deg Invalid Interpretation Code [facility] Work Phone: [phone] TN Interval 172 ms Invalid Interpretation Code [facility] Work Phone: [phone] QRS Duration 90 ms Invalid Interpretation Code [facility] Work Phone: [phone] QT Interval new path ms Invalid Interpretation Code [facility] Work Phone: [phone] QTc Santizo 391 ms Invalid Interpretation Code [facility] Work Phone: [phone] T Chester 23 deg Invalid Interpretation Code [facility] Work Phone: [phone] Lab Report: BNP,B-Type NATRI URETIC PEPTIDEon 12-03-2014 Natriuretic peptide B mass conc (Bld) 46.9 pg/mL Invalid Interpretation Code 0-100 [facility] Work Phone: [phone] Lab Report: Basic Metabolic Profile (BMP)on 12-03-2014 Anion gap 4 molar conc 6 Invalid Interpretation Code 5-15 [facility] Work Phone: [phone] Calcium mass conc 9.7 mg/dL Invalid Interpretation Code 8.5-10.1 [facility] Work Phone: [phone] Chloride molar conc 99 mmol/L Invalid Interpretation Code 98-107 [facility] Work Phone: [phone] CO2 ppres (BldV) 33.0 mmol/L Critically high 21.0-32.0 [facility] Work Phone: [phone] Creatinine mass conc 0.8 mg/dL Invalid Interpretation Code 0.6-1.0 [facility] Work Phone: [phone] EST GFR - AA 92 mL/min Invalid Interpretation Code >60 [facility] Work Phone: [phone] GFR/1.73 sq M predicted among non-blacks MDRD vol rate/area (S/P/Bld) 76 mL/min/{1.73_m2} Invalid Interpretation Code >60 [facility] Work Phone: [phone] Glucose mass conc 90 mg/dL Invalid Interpretation Code 70-110 [facility] Work Phone: [phone] Potassium molar conc 4.1 mmol/L Invalid Interpretation Code 3.5-5.1 [facility] Work Phone: [phone] Sodium molar conc 138 mmol/L Invalid Interpretation Code 136-145 [facility] Work Phone: [phone] Urea nitrogen mass conc 16 mg/dL Invalid Interpretation Code 7-18 [facility] Work Phone: [phone] Urea nitrogen/Creatinine mass ratio 20.0 RATIO Invalid Interpretation Code 10-20 [facility] Work Phone: [phone] Lab Report: CBC W/Diff, Auto matedon 12-03-2014 Absolute Neut 4.1 X10 3/UL Invalid Interpretation Code 2.0-7.7 [facility] Work Phone: [phone] Basophils/100 WBC Auto (Bld) 0.3 % Invalid Interpretation Code 0-1 [facility] Work Phone: [phone] Eosinophils/100 WBC Auto (Bld) 2.0 % Invalid Interpretation Code 0-5 [facility] Work Phone: [phone] Hematocrit Auto Volume Fraction (Bld) 41.3 % Invalid Interpretation Code 37-47 [facility] Work Phone: [phone] Hemoglobin mass conc (Bld) 13.2 g/dL Invalid Interpretation Code 12.0-15.0 [facility] Work Phone: [phone] Lymphocytes Auto #/vol (Bld) 1.82 X10 3/UL Invalid Interpretation Code 0.83-4.51 [facility] Phone: [phone] Lymphocytes/100 WBC Auto (Bld) 27.3 % Invalid Interpretation Code 19-41 [facility] Work Phone: [phone] MCH Auto Entitic mass (RBC) 31.3 pg Invalid Interpretation Code 27.0-32.0 [facility] Work Phone: [phone] MCHC Auto mass conc (RBC) 32.0 G/GL Invalid Interpretation Code 32-36 [facility] Work Phone: [phone] MCV Auto Entitic volume (RBC) 97.9 fL Invalid Interpretation Code 81-99 [facility] Work Phone: [phone] Monocytes/100 WBC Auto (Bld) 8.4 % Invalid Interpretation Code 0-10 [facility] Work Phone: [phone] Neutrophils/100 WBC Auto (Bld) 62.0 % Invalid Interpretation Code 47-70 [facility] Work Phone: [phone] Platelet mean volume Roge-Jimenez Entitic volume (Bld) 10.0 fL Invalid Interpretation Code 6.2-12.0 [facility] Work Phone: [phone] Platelets Auto #/vol (Bld) 286 10*3/mm3 Invalid Interpretation Code 150-450 [facility] Work Phone: [phone] RBC Auto #/vol (Bld) 4.22 10*6/uL Invalid Interpretation Code 4.2-5.4 [facility] Work Phone: [phone] WBC Auto #/vol (Bld) 6.7 10*3/uL Invalid Interpretation Code 4.4-11.0 [facility] Work Phone: [phone] Office Visiton 12-03-2014 cardiac risk group B Invalid Interpretation Code [facility] Work Phone: [phone] Lab Report: SEDon 06-12-2013 ESR Velocity (Bld) 28 mm/h Invalid Interpretation Code 0-30 [facility] Work Phone: [phone] Lab Report: LCRPon 3 LCRP 7.84 Invalid Interpretation Code 0.0-3.0 [facility] Work Phone: [phone] Lab Report: LPTon 06-04-2013 INR Coag RelTime (PPP) 2.3 {INR} Invalid Interpretation Code [facility] Work Phone: [phone] LPTP 23.5 SECONDS Invalid Interpretation Code 11.9-14.4 [facility] Work Phone: [phone] Lab Report: CMPon 03-25-2013 Albumin mass conc 3.2 g/dL Low 3.4-5.0 [facility] Work Phone: [phone] ALP enzyme act/vol (Bld) 47 U/L Low 50-136 [facility] Work Phone: [phone] ALT enzyme act/vol 30 U/L Normal 12-78 [facility] Work Phone: [phone] AST enzyme act/vol 17 U/L Normal 15-37 [facility] Work Phone: [phone] Bilirubin mass conc 0.30 mg/dL Normal 0.00-1.00 [facility] Work Phone: [phone] Lab Report: PREALBon 013 Prealbumin Elph mass conc 33.9 mg/dL Normal 20.0-40.0 [facility] Work Phone: [phone] Lab Report: LIPIDon 07-07-20 12 Cholesterol in HDL mass conc 49 mg/dL Normal [facility] Work Phone: [phone] Cholesterol in LDL mass conc 161 mg/dL High 0-130 [facility] Work Phone: [phone] Cholesterol mass conc 233 mg/dL High 200 [facility] Work Phone: [phone] Lipoprotein.pre-beta mass conc 23 mg/dL Normal 5-40 [facility] Work Phone: [phone] Triglyceride mass conc 116 mg/dL Normal [facility] Work Phone: [phone] Lab Report: LIVERon 07-07-20 12 Bilirubin.direct mass conc 0.14 mg/dL Normal 0.00-0.30 [facility] Work Phone: [phone] Lab Reporton 11-06-2011 Thyrotropin Qn 1.61 u[iU]/mL Invalid Interpretation Code [facility] Work Phone: [phone] basophils as percent of blood leukocytes, manual count 0.7 % Invalid Interpretation Code [facility] Work Phone: [phone] eosinophils as percent of blood leukocytes, manual count 4.5 % Invalid Interpretation Code [facility] Work Phone: [phone] neutrophils, band form as percent of blood leukocytes, manual count 50.5 % Invalid Interpretation Code [facility] Work Phone: [phone] Vital Signs Date Time Vital Sign Value Performing Clinician Facility 11-26-2024 08:06-0400 Body temperature 97.8 [degF] Dr. Wolf Berry MD Work Phone: [facility] 11-26-2024 08:06-0400 Diastolic blood pressure 58 mm[Hg] Dr. Wolf Berry MD Work Phone: [facility] 11-26-2024 08:06-0400 Heart rate 53 /min Dr. Wolf Berry MD Work Phone: [facility] 11-26-2024 08:06-0400 Respiratory rate 15 /min Dr. Wolf Berry MD Work Phone: 6(211)832-395990 [place] [address] 11-26-2024 08:06-0400 Systolic blood pressure 140 mm[Hg] Dr. Wolf Berry MD Work Phone: 0(656)998-211390 [place] [address] 10-31-2024 00:44-0500 Body height 152.[address] Wolf Berry MD Work Phone: 0(334)397-315890 [place] [address] 10-31-2024 00:44-0500 Inhaled oxygen flow rate 2 L/min Dr. Wolf Berry MD Work Phone: 2(825)484-280590 [place] [address] 10-27-2024 13:06-0500 Heart rate 64 /min Dr. Wolf Berry MD Work Phone: 8(784)355-379390 [place] [address] 10-27-2024 13:06-0500 Respiratory rate 16 /min Dr. Wolf Berry MD Work Phone: 7(684)648-571990 [place] [address] 10-27-2024 09:18-0500 Inhaled oxygen flow rate 2 L/min Dr. Wolf Berry MD Work Phone: 5(042)878-681626 [address] 10-27-2024 09:09-0500 Body temperature 97.9 [degF] Dr. Wolf Berry MD Work Phone: 2(176)377-015626 [address] 10-27-2024 09:09-0500 Diastolic blood pressure 48 mm[Hg] Dr. Wolf Berry MD Work Phone: 5(711)215-959090 [place] [address] 10-27-2024 09:09-0500 SaO2% (BldA) [Mass fraction] 98 % Dr. Wolf Berry MD Work Phone: 5(061)809-137426 [address] 10-27-2024 09:09-0500 Systolic blood pressure 135 mm[Hg] Dr. Wolf Berry MD Work Phone: 5(179)094-597526 [address] 10-27-2024 06:00-0500 Body mass index (BMI) [Ratio] 44.1 kg/m2 Dr. Wolf Berry MD Work Phone: 5(513)019-240952 [place] [address] 10-27-2024 06:00-0500 Body weight 99.[address] Wolf Berry MD Work Phone: 1(786)047-815726 [address] 10-22-2024 08:07-0500 Body temperature 97.1 [degF] Dr. Wolf Berry MD Work Phone: 7(673)148-495426 [address] 10-22-2024 08:07-0500 Diastolic blood pressure 55 mm[Hg] Dr. Wolf Berry MD Work Phone: 3(519)823-030990 [place] [address] 10-22-2024 08:07-0500 Heart rate 54 /min Dr. Wolf Berry MD Work Phone: 1(505)536-889490 [place] [address] 10-22-2024 08:07-0500 Respiratory rate 18 /min Dr. Wolf Berry MD Work Phone: 2(584)469-061326 [address] 10-22-2024 08:07-0500 Systolic blood pressure 177 mm[Hg] Dr. Wolf Berry MD Work Phone: 7(256)052-757626 [address] 10-03-2024 00:52-0500 Inhaled oxygen flow rate 2 L/min Dr. Wolf Berry MD Work Phone: 7(197)291-105226 [address] 10-01-2024 08:22-0500 Body temperature 96.4 [degF] Dr. Wolf Berry MD Work Phone: 7(568)311-031326 [address] 10-01-2024 08:22-0500 Diastolic blood pressure 75 mm[Hg] Dr. Wolf Berry MD Work Phone: 5(599)334-884426 [address] 10-01-2024 08:22-0500 Heart rate 58 /min Dr. Wolf Berry MD Work Phone: 9(804)825-407326 [address] 10-01-2024 08:22-0500 Inhaled oxygen flow rate 2 L/min Dr. Wolf Berry MD Work Phone: 0(238)293-496726 [address] 10-01-2024 08:22-0500 Respiratory rate 18 /min Dr. Wolf Berry MD Work Phone: [facility] 10-01-2024 08:22-0500 Systolic blood pressure 157 mm[Hg] Dr. Wolf Berry MD Work Phone: [facility] 08-20-2024 08:17-0500 Body temperature 96.6 [degF] Dr. Wolf Berry MD Work Phone: 0(273)525-536952 [place] [address] 08-20-2024 08:17-0500 Diastolic blood pressure 69 mm[Hg] Dr. Wolf Berry MD Work Phone: 5(959)222-701852 [place] [address] 08-20-2024 08:17-0500 Heart rate 54 /min Dr. Wolf Berry MD Work Phone: 6(067)923-765026 [address] 08-20-2024 08:17-0500 Respiratory rate 18 /min Dr. Wolf Berry MD Work Phone: 2(153)888-445452 [place] [address] 08-20-2024 08:17-0500 Systolic blood pressure 193 mm[Hg] Dr. Wolf Berry MD Work Phone: 9(854)080-786052 [place] [address] 09-24-2023 13:45-0500 Heart rate 89 /min Dr. Wolf Berry Work Phone: 7(351)600-762252 [place] [address] 09-24-2023 13:45-0500 Respiratory rate 20 /min Dr. Wolf Berry Work Phone: [facility] 09-24-2023 13:36-0500 Body temperature 98.1 [degF] Dr. Wolf Berry Work Phone: [facility] 09-24-2023 13:36-0500 Diastolic blood pressure 90 mm[Hg] Dr. Wolf Berry Work Phone: 4(965)531-180752 [place] [address] 09-24-2023 13:36-0500 Inhaled oxygen flow rate 2 L/min Dr. Wolf Berry Work Phone: [facility] 09-24-2023 13:36-0500 SaO2% (BldA) [Mass fraction] 94 % Dr. Wolf Berry Work Phone: [facility] 09-24-2023 13:36-0500 Systolic blood pressure 148 mm[Hg] Dr. Wolf Berry Work Phone: [facility] 09-24-2023 05:33-0500 Body mass index (BMI) [Ratio] 41.2 kg/m2 Dr. Wolf Berry Work Phone: [facility] 09-24-2023 05:33-0500 Body weight 95.[address] Wolf Berry Work Phone: [facility] 09-22-2023 13:59-0500 Body height 152.[address] Wolf Berry Work Phone: [facility] 09-22-2023 00:41-0500 Body temperature 96.8 [degF] [facility] 09-22-2023 00:41-0500 Diastolic blood pressure 48 mm[Hg] [facility] 09-22-2023 00:41-0500 Heart rate 78 /min [facility] 09-22-2023 00:41-0500 Respiratory rate 18 /min [facility] 09-22-2023 00:41-0500 SaO2% (BldA) [Mass fraction] 95 % [facility] 09-22-2023 00:41-0500 Systolic blood pressure 119 mm[Hg] [facility] 09-21-2023 22:38-0500 Inhaled oxygen concentration 40 % [facility] 09-21-2023 20:12-0500 Inhaled oxygen flow rate 2 L/min [facility] 09-21-2023 19:44-0500 Body height 154.94 cm [facility] 09-21-2023 19:44-0500 Body mass index (BMI) [Ratio] 41.3 kg/m2 [facility] 09-21-2023 19:44-0500 Body weight 99.3 kg [facility] 12-30-2022 10:17-0400 Body temperature 97 [degF] Wolf Berry [facility] 12-30-2022 10:17-0400 Diastolic blood pressure 52 mm[Hg] Wolf BARNEY [facility] 12-30-2022 10:17-0400 Heart rate 69 /min [facility] 12-30-2022 10:17-0400 Respiratory rate 16 /min [facility] 12-30-2022 10:17-0400 SaO2% (BldA) [Mass fraction] 96 % [facility] 12-30-2022 10:17-0400 Systolic blood pressure 115 mm[Hg] [facility] 12-30-2022 09:28-0400 Inhaled oxygen flow rate 2 L/min [facility] 12-30-2022 07:10-0400 Body height 165.1 cm [facility] 12-30-2022 07:10-0400 Body mass index (BMI) [Ratio] 36.2 kg/m2 [facility] 12-30-2022 07:10-0400 Body weight 98.8 kg [facility] 09-22-2022 15:00-0500 Inhaled oxygen flow rate 2 L/min [facility] 09-22-2022 14:45-0500 Body temperature 98.1 [degF] [facility] 09-22-2022 14:45-0500 Diastolic blood pressure 93 mm[Hg] [facility] 09-22-2022 14:45-0500 Heart rate 95 /min [facility] 09-22-2022 14:45-0500 Respiratory rate 18 /min [facility] 09-22-2022 14:45-0500 SaO2% (BldA) [Mass fraction] 95 % [facility] 09-22-2022 14:45-0500 Systolic blood pressure 149 mm[Hg] [facility] 09-21-2022 11:08-0500 Body height 165.1 cm [facility] 09-21-2022 11:08-0500 Body weight 100.47 kg [facility] 09-20-2022 17:28-0500 Body mass index (BMI) [Ratio] 36.8 kg/m2 [facility] 09-20-2022 16:10-0500 Body temperature 97.2 [degF] [facility] 09-20-2022 16:10-0500 Diastolic blood pressure 70 mm[Hg] [facility] 09-20-2022 16:10-0500 Heart rate 78 /min [facility] 09-20-2022 16:10-0500 Inhaled oxygen flow rate 4 L/min [facility] 09-20-2022 16:10-0500 Respiratory rate 22 /min [facility] 09-20-2022 16:10-0500 SaO2% (BldA) [Mass fraction] 92 % [facility] 09-20-2022 16:10-0500 Systolic blood pressure 148 mm[Hg] [facility] 09-20-2022 11:54-0500 Body height 165.1 cm [facility] 09-20-2022 11:54-0500 Body mass index (BMI) [Ratio] 37.9 kg/m2 [facility] 09-20-2022 11:54-0500 Body weight 103.4 kg [facility] 08-15-2022 13:51-0500 Body mass index (BMI) [Ratio] 41.7 kg/m2 [facility] 08-15-2022 13:51-0500 Body weight 103.41 kg [facility] 08-15-2022 13:51-0500 Diastolic blood pressure 83 mm[Hg] [facility] 08-15-2022 13:51-0500 Heart rate 80 /min [facility] 08-15-2022 13:51-0500 Respiratory rate 18 /min [facility] 08-15-2022 13:51-0500 SaO2% (BldA) [Mass fraction] 98 % [facility] 08-15-2022 13:51-0500 Systolic blood pressure 165 mm[Hg] [facility] 06-14-2022 13:29-0400 Body temperature 97.8 [degF] [facility] 06-14-2022 13:29-0400 Diastolic blood pressure 67 mm[Hg] [facility] 06-14-2022 13:29-0400 Heart rate 73 /min [facility] 06-14-2022 13:29-0400 Inhaled oxygen flow rate 2 L/min [facility] 06-14-2022 13:29-0400 Respiratory rate 18 /min [facility] 06-14-2022 13:29-0400 SaO2% (BldA) [Mass fraction] 97 % [facility] 06-14-2022 13:29-0400 Systolic blood pressure 145 mm[Hg] [facility] 05-01-2022 14:43-0400 Body temperature 97.8 [degF] [facility] Work Phone: 05-01-2022 14:43-0400 Body weight 94.8 kg [facility] Work Phone: 05-01-2022 14:43-0400 Diastolic blood pressure 98 mm[Hg] [facility] Work Phone: 05-01-2022 14:43-0400 Heart rate 62 /min [facility] Work Phone: 05-01-2022 14:43-0400 Respiratory rate 18 /min [facility] Work Phone: 05-01-2022 14:43-0400 SaO2% (BldA) [Mass fraction] 97 % [facility] Work Phone: 05-01-2022 14:43-0400 Systolic blood pressure 158 mm[Hg] [facility] Work Phone: 06-09-2017 12:27-0400 Body Temperature 97 [degF] Christopher Driver [facility] [employer] [facility] Work Phone: 06-09-2017 12:27-0400 BP Diastolic 68 mm[Hg] Christopher Driver [employer], [facility] Work Phone: 06-09-2017 12:27-0400 BP Systolic 130 mm[Hg] Christopher Driver [facility] [place], [facility] Work Phone: 06-09-2017 12:27-0400 Height 162.56 cm Christopher Driver [facility] [employer] [facility] Work Phone: 06-09-2017 12:27-0400 Pulse (Heart Rate) 57 /min Christopher Driver [facility] [employer] [facility] Work Phone: 06-09-2017 12:27-0400 Respiratory Rate 20 /min [facility] [email or web address], [facility] Work Phone: 06-05-2017 10:01-0400 BMI (Body Mass Index) 34.33 kg/m2 [facility] Work Phone: 06-05-2017 10:01-0400 BP Diastolic 62 mm[Hg] [facility] Work Phone: 06-05-2017 10:01-0400 BP Systolic 130 mm[Hg] [facility] Work Phone: 06-05-2017 10:01-0400 Height 162.56 cm [facility] Work Phone: 06-05-2017 10:01-0400 Pulse (Heart Rate) 56 /min [facility] Work Phone: 06-05-2017 10:01-0400 Respiratory Rate 20 /min [facility] Work Phone: 06-05-2017 10:01-0400 Weight 90.72 kg [facility] Work Phone: 06-04-2017 12:32-0400 Body Temperature 98.2 [degF] [facility] Work Phone: 10-28-2015 14:32-0500 BSA (Body Surface Area) 1.92 m2 [facility] Work Phone: 04-11-2015 14:55-0400 Heart rate 57 /min [facility] Work Phone: Encounters Encounter Date Encounter Type Care Provider Facility Start: 01-14-2025 End: 01-14-2025 [facility] Facility[facility] Start: 12-30-2024 End: 12-30-2024 ambulatory [facility] Start: 12-11-2024 [facility] Start: 11-26-2024 End: 11-30-[address] Wolf Berry MD Work Phone: [facility] Work Phone: Start: 11-26-2024 End: 11-30-2024 Discharged Recurring Jadon Dolan DPM [facility] Work Phone: Start: 10-27-2024 Non-patient / Non-visit Dr. Alfred Watson DO [facility] Work Phone: Start: 10-26-2024 Non-patient / Non-visit Dr. Alfred Watson DO [facility] Work Phone: Start: 10-25-2024 ambulatory Pan Alejandra Facility[place] [facility] Start: 10-25-2024 End: 10-27-2024 Evaluation and management of inpatient Dr. Alfred Watson DO -Medical Surgical 3 Work Phone: Start: 10-22-2024 End: 10-30-2024 ambulatory Jadon Dolan Facility:[facility] Start: 10-22-2024 End: 10-30-2024 Discharged Recurring Jadon Dolan DPM -[facility] Work Phone: Start: 10-01-2024 End: 10-02-2024 ambulatory Jadon Dolan Facility:[facility] Start: 10-01-2024 End: 10-02-2024 Discharged Recurring Jadon Dolan DPM -[facility] Work Phone: Start: 08-20-2024 End: 09-01-2024 ambulatory Jadon Dolan Facility:[facility] Start: 08-20-2024 End: 09-01-2024 Discharged Recurring Jadon Dolan DPM -[facility] Work Phone: Start: 08-06-2024 ambulatory Pepe Goode Facility :[facility] Start: 07-06-2024 End: 07-06-2024 ambulatory Saloni Choco FRONT OFFICE SPECIALIST Facility:[facility] Start: 07-01-2024 ambulatory Jan Osborneconchitapedro Facilit y:[facility] Start: 07-01-2024 End: 07-01-2024 ambulatory Jan Worley Facility:[facility] Start: 06-29-2024 End: 06-29-2024 ambulatory Frances Abel [place] Start: 06-25-2024 End: 06-25-2024 ambulatory Janmary Worley Facility:[facility] Start: 06-23-2024 End: 06-23-2024 ambulatory Jan Bannerpedro Facility:[facility] Start: 03-14-2024 ambulatory Luna Jjsumanjessica Facility:[facility] Start: 03-14-2024 End: 03-17-2024 Evaluation and management of inpatient Luna Jjlesly Facility:[facility] Start: 03-12-2024 End: 03-12-2024 ambulatory Wolf Berry Facility:[facility] Start: 03-11-2024 End: 03-11-2024 ambulatory Wolf Berry Facility:[facility] Start: 09-24-2023 Non-patient / Non-visit Dr. Wolf Berry Work Phone: [facility] Work Phone: Start: 09-23-2023 Non-patient / Non-visit Dr. Wolf Berry Work Phone: [facility] Work Phone: Start: 09-22-2023 Non-patient / Non-visit Dr. Wolf Berry Work Phone: [facility] Work Phone: Start: 09-21-2023 End: 09-24-2023 Evaluation and management of inpatient [facility]-Progressive Care Unit Work Phone: Start: 12-30-2022 End: 12-30-2022 Emergency department patient visit Wolf [facility] Start: 09-22-2022 Non-patient / Non-visit Wolf [facility] Start: 09-21-2022 Non-patient / Non-visit [facility] Start: 09-20-2022 Non-patient / Non-visit [facility] Start: 09-20-2022 End: 09-22-2022 [facility] Start: 09-20-2022 [facility] Start: 08-15-2022 End: 08-15-2022 Patient encounter procedure [facility] Start: 06-14-2022 End: 06-14-2022 Patient encounter procedure [facility] Start: 06-14-2022 Non-patient / Non-visit [facility] Start: 06-14-2022 End: 06-14-2022 ambulatory [facility] Work Phone: Start: 06-14-2022 End: 06-14-2022 Patient encounter procedure [facility] Start: 05-22-2022 ambulatory Facility:[facility] Start: 05-01-2022 End: 05-01-2022 Patient encounter procedure [facility] Procedures Date Procedure Procedure Detail Performing Clinician Start: 10-25-2024 Plain x-ray of pelvis and lower extremity Dr. Wolf Berry MD Work Phone: Start: 10-25-2024 Computed tomography of thoracic spine without contrast Dr. Wolf Berry MD Work Phone: Start: 10-25-2024 CT cervical spine without contrast Dr. Wolf Berry MD Work Phone: Start: 10-25-2024 CT of head without contrast Dr. Wolf Berry MD Work Phone: Start: 10-25-2024 CT of lumbar spine Dr. Wolf Berry MD Work Phone: Start: 09-22-2023 CT angiography of chest with contrast Dr. Wolf Berry Work Phone: Start: 09-21-2023 Plain chest X-ray Start: 09-21-2023 Bacteria Detection (PCR) Dr. Wolf phelps Work Phone: Start: 09-21-2023 SARS-CoV-2, Influenza & RSV (PCR) Start: 09-20-2022 CT angiography of chest with contrast Wolf Berry Start: 09-20-2022 Plain chest X-ray Wolf Berry Start: 12-20-2016 End: 05-22-2017 Follow Up Appt [...] SAEED Sotelo MD Start: 04-11-2015 End: 04-11-2015 JESSICA Pathak PA-C Work Phone: Start: 04-11-2015 End: [...] cardiovascular examination PRE-OPERATIVE CARDIOVASCULAR EXAMINATION Tanna Jones Bacteria identified in Blood by Culture Wolf BARNEY Legionella pneumophi la antigen assay Wolf Berry SARS-CoV-2 & FLU Ant igen (Rapid) Wolf Berry Streptococcus pneumo niae Antigen (M Wolf Berry Viral antigen assay Wolf BARNEY Plan of Treatment Date Care Activity Detail Author Start: 10-27-2024 Patient discharge [facility] Start: 10-26-2024 Measuring intake and output [facility] Start: 10-26-2024 Measuring intake and output [facility] Start: 10-26-2024 Measuring intake and output [facility] Start: 10-26-2024 Application of intermittent pneumatic compression device [facility] Start: 10-26-2024 Following clinical pathway protocol [facility] Start: 10-26-2024 Application of elastic bandage [facility] Start: 10-26-2024 Application of ice collar, cap or bag [facility] Start: 10-26-2024 Assessment of risk of venous thromboembolism [facility] Start: 10-26-2024 Bedrest [facility] Start: 10-26-2024 Fall prevention [facility] Start: 10-26-2024 Insertion of catheter into peripheral vein [facility] Start: 10-26-2024 Introduction of urinary catheter [facility] Start: 10-26-2024 Neurovascular assessment [facility] Start: 10-26-2024 Oxygen therapy [facility] Start: 10-26-2024 Providing care according to standard [facility] Start: 10-26-2024 Referral to occupational therapist [facility] Start: 10-26-2024 Referral to real estate processor [facility] Start: 10-26-2024 Referral to service [facility] Start: 10-26-2024 Skin care [facility] Start: 10-26-2024 [facility] Start: 10-26-2024 Measuring intake and output [facility] Start: 10-26-2024 Inhalation therapy procedure [facility] Start: 10-26-2024 Patient referral to dietitian [facility] Start: 10-25-2024 Admission procedure [facility] Start: 10-01-2023 Blood chemistry [facility] Start: 09-30-2023 Blood chemistry [facility] Start: 09-29-2023 Blood chemistry [facility] Start: 09-28-2023 Blood chemistry [facility] Start: 09-27-2023 Blood chemistry [facility] Start: 09-26-2023 Blood chemistry [facility] Start: 09-25-2023 Blood chemistry [facility] Start: 09-24-2023 Patient discharge [facility] Start: 09-23-2023 Inhalation therapy procedure [facility] Start: 09-22-2023 Thyroid stimulating hormone measurement [facility] Start: 09-22-2023 [facility] Start: 09-22-2023 Oxygen therapy [facility] Start: 09-22-2023 Following clinical pathway protocol [facility] Start: 09-22-2023 Gas panel - Arterial blood [facility] Start: 09-22-2023 CT angiography of chest with contrast CTA Chest W/WO Contrast [facility] Start: 09-22-2023 CTA Chest vessels WO and W contrast IV [facility] Start: 09-22-2023 Patient referral to [facility] Start: 09-21-2023 Assessment of risk of venous thromboembolism [facility] Start: 09-21-2023 Contact precautions [facility] Start: 09-21-2023 Incentive spirometry [facility] Start: 09-21-2023 Insertion of catheter into peripheral vein [facility] Start: 09-21-2023 Measuring intake and output [facility] Start: 09-21-2023 Providing care according to standard [facility] Start: 09-21-2023 Provision of activity privileges [facility] Start: 09-21-2023 Referral to occupational therapist [facility] Start: 09-21-2023 Referral to service [facility] Start: 09-21-2023 Verification routine [facility] Start: 09-21-2023 [facility] Start: 09-21-2023 End: 09-21-2023 Admission procedure [facility] Start: 09-21-2023 End: 09-21-2023 Blood culture [facility] Start: 09-21-2023 Continuous pulse oximetry [facility] Start: 09-21-2023 Dual pressure spontaneous ventilation support [facility] Start: 09-21-2023 [facility] Start: 09-21-2023 Bacteria identified in Blood by Culture Blood Culture [facility] Start: 09-22-2022 Patient discharge [facility] Start: 09-21-2022 Chart related administrative procedure [facility] Start: 09-21-2022 Physiotherapy of chest [facility] Start: 09-20-2022 Referral to service [facility] Start: 09-20-2022 Referral to occupational therapist [facility] Start: 09-20-2022 Assessment of risk of venous thromboembolism [facility] Start: 09-20-2022 Catheterization of vein [facility] Start: 09-20-2022 Insertion of catheter into peripheral vein [facility] Start: 09-20-2022 Providing care according to standard [facility] Start: 09-20-2022 Provision of activity privileges [facility] Start: 09-20-2022 [facility] Start: 09-20-2022 Admission procedure [facility] Start: 09-20-2022 Oxygen therapy [facility] Start: 09-20-2022 Following clinical pathway protocol [facility] Start: 09-20-2022 CT angiography of chest with contrast CTA Chest W/WO Contrast [facility] Start: 09-20-2022 CTA Chest vessels WO and W contrast IV [facility] Start: 09-20-2022 Blood culture [facility] Start: 09-20-2022 Inhalation therapy procedure [facility] Start: 12-05-2017 End: 12-05-2017 Appointment Appointment [facility] Work Phone: Start: 06-09-2017 End: 06-09-2017 Appointment Appointment [employer] [employer] [facility], [facility] Work Phone: Start: 06-05-2017 End: 06-05-2017 24 hour holter monitor 24 hour holter monitor [facility] Work Phone: Start: 06-05-2017 End: 06-05-2017 [employer] [facility] Work Phone: Start: 06-05-2017 End: 06-05-2017 Follow Up Appt 6 months Follow Up Appt 6 months [email or web address] [facility] Work Phone: Start: 06-05-2017 End: 06-05-2017 Appointment Appointment [facility] Work Phone: Start: 06-04-2017 End: 06-04-2017 Dup-scan xtr veins complete bilateral study Venous Doppler LE Right [facility] Work Phone: Start: 06-04-2017 End: 06-04-2017 Wound Clinic Referral [facility] Referral [facility] [employer] Work Phone: Start: 12-20-2016 End: 05-22-2017 Follow Up Appt 1 year Follow Up Appt 1 year [facility] Work Phone: Start: 12-20-2016 End: 05-22-2017 MMM MMM [facility] Work Phone: Start: 04-30-2016 End: 04-30-2016 [employer] [facility] Work Phone: Start: 04-30-2016 End: 04-30-2016 Follow Up Appt 6 months Follow Up Appt 6 months [facility] Work Phone: Start: 10-28-2015 End: 10-28-2015 Follow Up Appt 6 months Follow Up Appt 6 months [facility] Work Phone: Start: 10-28-2015 End: 10-28-2015 MMM MMM [facility] Work Phone: Start: 04-11-2015 End: 04-11-2015 [employer] [facility] Work Phone: Start: 04-11-2015 End: 04-11-2015 Ecg routine ecg w/least 12 lds w/i&r EKG (In office) [facility] Work Phone: Start: 04-11-2015 End: 04-11-2015 Follow Up Appt 6 months Follow Up Appt 6 months [facility] Work Phone: Start: 12-03-2014 End: 12-06-2014 *BMP *BMP [facility] Work Phone: Start: 12-03-2014 End: 12-06-2014 *CBC with Differential *CBC with Differential [facility] Work Phone: Start: 12-03-2014 End: 12-03-2014 Echocardiography Echocardiogram (complete) [facility] Work Phone: Start: 12-03-2014 End: 12-03-2014 Follow Up Appt 4 months Follow Up Appt 4 months [facility] Work Phone: Start: 12-03-2014 End: 12-03-2014 MMM MMM [facility] Work Phone: Start: 12-03-2014 End: 12-06-2014 Natriuretic peptide B mass conc (Bld) *Brain Natriuretic Peptide BNP [facility] Work Phone: Start: 07-03-2013 End: 04-24-2016 *Hepatic Function Panel *Hepatic Function Panel [facility] Work Phone: Start: 07-03-2013 End: 04-24-2016 Lipid 1996 panel *Lipid Profile [facility] Work Phone: Start: 05-21-2012 End: 07-09-2012 *Hepatic Function Panel *Hepatic Function Panel [facility] Work Phone: Start: 05-21-2012 End: 05-21-2012 Follow Up Appt 1 year Follow Up Appt 1 year [facility] Work Phone: Start: 05-21-2012 End: 07-09-2012 Lipid 1996 panel *Lipid Profile [facility] Work Phone: Alanine aminotransfe rase [Enzymatic activity/volume] in Serum or Plasma [facility] Albumin [Mass/volume ] in Serum or Plasma [facility] Alkaline phosphatase [Enzymatic activity/volume] in Serum or Plasma [facility] Anion gap measurement [facility] Aspartate aminotrans ferase [Enzymatic activity/volume] in Serum or Plasma [facility] Bacteria identified in Blood by Culture Blood Culture [facility] Bacteria identified in Blood by Culture Blood Culture [facility] Bilirubin, total measurement [facility] Blood chemistry [facility] BUN/Creatinine ratio [facility] Calcium [Mass/volume ] in Serum or Plasma [facility] Carbon dioxide, tota l [Moles/volume] in Serum or Plasma [facility] CBC W Auto Different ial panel - Blood [facility] Chloride [Moles/volu me] in Serum or Plasma [facility] Creatinine [Moles/vo lume] in Serum or Plasma [facility] Erythrocyte mean corpuscular volume determination [facility] Glucose [Mass/volume ] in Serum or Plasma [facility] Hematocrit [Volume Fraction] of Blood [facility] Hemoglobin [Mass/vol ume] in Blood [facility] Leukocytes [#/volume ] in Blood [facility] Magnesium [Mass/volu me] in Serum or Plasma [facility] Mean corpuscular hemoglobin concentration determination [facility] Mean corpuscular hemoglobin determination [facility] Measurement of renal function [facility] Neutrophil count [facility] Neutrophil percent differential count [facility] Patient Education [facility] Work Phone: Patient referral [facility] Work Phone: Platelets [#/volume] in Blood [facility] Potassium [Moles/vol ume] in Serum or Plasma [facility] Red blood cell count [facility] Red cell distributio n width determination [facility] SARS-CoV-2 (COVID-19 ) Ag [Presence] in Respiratory specimen by Rapid immunoassay [facility] SARS-CoV-2 Antigen (Rapid) SARS- CoV-2 Antigen (Rapid) [facility] Serum inorganic phos phate measurement [facility] Sodium [Moles/volume ] in Serum or Plasma [facility] Thyroid stimulating hormone measurement [facility] Total protein measurement [facility] Urea nitrogen [Mass/volume] in Serum or Plasma [facility] Immunizations Immunization Date Immunization Notes Care Provider [facility] 12-30-2022 tetanus toxoid, redu jes diphtheria toxoid, and acellular pertussis vaccine, adsorbed Wolf BARNEY [facility] 08-07-2021 Covid ([facility]) Dr. Wolf cullen MD Work Phone: [facility] 10-12-2020 Covid (Pfizer) Dr. Wolf cullen MD Work Phone: [facility] 09-21-2020 Covid (Pfizer) Dr. Wolf cullen MD Work Phone: [facility] 06-29-2015 influenza, injectabl e, quadrivalent, preservative free [facility] 06-29-2015 influenza, seasonal, injectable [facility] 05-27-2012 Influenza virus vaccine [facility] 10-27-2010 Pneumococcal Vaccine [facility] Work Phone: 10-27-2010 pneumococcal vaccine , unspecified formulation [facility] Payers Date Payer Category Payer Self-pay [id number] 2023 Medicare [id number] 2023 Unknown [id number] 2023 Unknown [id number] 2016 Unknown AARP [id number] 2009 Medicare MEDICARE PART A B [id number] Unknown [employer] [id number] Unknown [id number] Unknown [employer] [id number] Unknown [id number] 2.16.8 40.1.145503.3.579.2.462 Unknown [id number] 2.16.8 40.1.987367.3.579.2.462 Unknown [id number] 2.16.8 40.1.840518.3.579.2.462 Unknown [id number] 2.16.8 40.1.522314.3.579.2.462 Unknown [id number] 2.16.8 40.1.509239.3.579.2.462 Unknown [id number] 2.16.8 40.1.446261.3.579.2.462 Unknown [id number] 2.16.8 40.1.159983.3.579.2.462 Unknown [id number] 2.16.8 40.1.071443.3.579.2.462 Unknown [id number] 2.16.8 40.1.396500.3.579.2.462 Unknown [id number] 2.16.8 40.1.060910.3.579.2.462 Unknown [id number] 2.16.8 40.1.119983.3.579.2.462 Unknown [id number] 2.16.8 40.1.460841.3.579.2.462 Unknown [id number] 2.16.8 40.1.126765.3.579.2.462 Unknown [id number] 2.16.8 40.1.198312.3.579.2.462 Unknown [id number] 2.16.8 40.1.635703.3.579.2.462 Unknown [id number] 2.16.8 40.1.007216.3.579.2.462 Unknown [id number] 2.16.8 40.1.668294.3.579.2.462 Unknown [id number] 2.16.8 40.1.404003.3.579.2.462 Unknown [id number] 2.16.8 40.1.734122.3.579.2.462 Unknown [id number] 2.16.8 40.1.851885.3.579.2.462 Unknown [id number] 2.16.8 40.1.331328.3.579.2.462 Unknown [id number] 2.16.8 40.1.586790.3.579.2.462 Unknown [id number] 2.16.8 40.1.734779.3.579.2.462 Unknown [id number] 2.16.8 40.1.150692.3.579.2.462 Unknown [id number] 2.16.8 40.1.372903.3.579.2.462 Social History Date Type Detail Facility Start: 06-14-2022 End: 09-22-2023 Tobacco smoking status NHIS Unknown if ever smoked [facility] Start: 04-12-2020 None [facility] Start: 01-03-2021 Homeless [facility] Start: 01-03-2021 Non-smoker [facility] Start: 1945 Sex Assigned At Female W [facility] Start: 10-25-2024 Tobacco smoking stat us NMIS Never smoked tobacco (finding) [facility] Start: 12-01-2024 Sex Female (finding) [facility] Goals Date Patient Goal Desired Activity /State Functional Status Date Assessment Result Facility 10-27-2024 Functional status Bedrest [facility] Work Phone: 09-24-2023 Functional status Bedrest [facility] Work Phone: 09-22-2022 [facility] Work Phone: Mental Status Date Assessment Result Facility 10-27-2024 Cognitive function Awake;Alert;A ppropriate;Fol lows Commands [facility] Work Phone: 10-26-2024 Cognitive function Appropriate;Cooperativ e [facility] Work Phone: 09-24-2023 Cognitive function Voice/Name [facility] Work Phone: 09-22-2022 Cognitive function Voice/Name [facility] Work Phone: Clinical Notes 10-25-2020 to 11-26-2024 Note Date & Type Note Facility 11-26-2024 Progress note Note Date/Time November 26, 2024 9:26am [facility] [address] [place] [address] Progress Note - Wound Care 11/26/24 0918 MR#: [id number] Acct: [id number] Name: PATRICIA HAWLEY Rep #:[id number] : 1945 79 From: Jadon alvarez DPM PCP: Dr. Wolf Berry MD Status:REG R CR Location: History of Present Illness Date of Service: 11/26/24 Chief Complaint: Ulceration dorsal second digit right foot History of Wound: This is a 79-year-old female who was referred to the wound care center for a nonhealing ulceration of the dorsal aspect of the second digitright foot. Patient states ulceration occurred after 2 aids at the [facility] facility transferred her utilizing a Jareth and bumped her toe against a refrigerator. States she has been going to the foot and ankle Center for continued care with Dr. Worley and they were applying Betadine daily for the last 8 weeks. Patient over that time has failed to progress in wound healing, but also states dressings have not been changed as instructed at her facility. She has followed with vascular surgery with LEAS performed in June 2024 demonstrating adequate perfusion with no evidence of arterial disease. Patient was referred to the wound care center for continued wound healing. She denies N/V/F/chills. Denies pain to the ulcerative site. Denies diabetes. 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 Denies further complaints. Subjective Subjective This 79-year-old female returns to the wound care center today for continued care of the dorsal ulceration to the second digit of the right foot. Accompaniedby frame bander from facility. She has neuropathy and has no sensation to the foot.Persistent swelling remains to lower extremities secondary to nonweight bearing/wheelchair bound status. States she is getting continued improvement following right hip fracture. Reports she is continuing to be careful to not bump the toe to reopen her wound, and feels it is healed. Denies constitutionalsymptoms. Denies further complaints. Objective Data Objective Data Vital Signs: Vital Signs Temp Pulse Resp BP O2 Flow Rate 97.8 F 53 L 15 140/58 H 2 11/26/24 08:06 11/26/24 08:06 11/26/24 08:06 11/26/24 08:06 10/31/24 00:44 Oxygen Flow Rate (L/min) 2 Physical Exam Const alert, oriented x3 and no apparent distress General Appearance: cooperative HEENT normocephalic Eyes General Eye: normal appearance of both eyes Neck General: normal visual inspection Lymph Lymphatic: no lymphadenopathy noted and no lymphedema noted Resp normal respiratory effort Cardio regular rate and regular rhythm Extremity no calf tenderness Extremity Narrative: Right lower extremity: Vascular: DP and PT pulses nonpalpable secondary to edema. CFT is less than 4 seconds to digits. Normal temperature gradient. Hair growth is absent to digits. Neurologic: Diminished sensation secondary to neuropathy post back surgery. Gross sensation intact. Motor function intact. Musculoskeletal: Muscle strength 4 of 5 secondary to prior surgery and nonambulatory status. No pain to palpation of calf. No pain to palpation aboutulcerative site. Decreased range of motion of the ankle joint in dorsiflexion with knee extended without pain or crepitus. Decreased range of motion of the first MTPJ without pain or crepitus. Dermatologic: There is moderate lower extremity edema secondary to her prior back surgery. Skin turgor normal. Ulceration to the dorsal aspect of the second digit has healed. No signs of infection. Left lower extremity: Vascular: DP and PT pulses nonpalpable secondary to edema. CFT is less than 4 seconds to digits. Normal temperature gradient. Hair growth is absent to digits. Neurologic: Diminished sensation secondary to neuropathy post back surgery. Gross sensation intact. Motor function intact. Musculoskeletal: Muscle strength 4 of 5 secondary to prior surgery and nonambulatory status. No pain to palpation of calf. Decreased range of motion of the ankle joint in dorsiflexion with knee extended without pain or crepitus. Decreased range of motion of the first MTPJ without pain or crepitus. Dermatologic: There is moderate lower extremity edema secondary to her prior back surgery. Skin turgor normal. Skin is mildly xerotic but otherwise unremarkable. Skin no rashes or lesions noted and skin turgor normal Neuro moves all extremities Debridement Note Debridement Note No debridement was completed: No debridement was completed today Post-Debridement Measurements and Additional Note: Post-Debridement Measurements/Treatment - Nurse 1 - General Ulcer Assessment Start: 11/05/24 08:08 Freq: Status: Active Protocol: ISRAEL Activity Type Activity Date Activity User E-sign Co-sign Detail Recorded Client Recorded Date Recorded By Document 11/05/24 08:09 DL [id number] 11/05/24 08:18 DL Document 11/12/24 08:09 DL [id number] 11/12/24 08:16 DL Document 11/26/24 08:06 ML [id number] 11/26/24 08:16 ML 11/05/24 11/12/24 11/26/24 08:09 08:09 08:06 - Today's Visit Information Type of service Follow-up Visit Follow-up Visit Follow-up Visit (Physician/SHIRT PRESSER (Physician/SHIRT PRESSER (Physician/SHIRT PRESSER ) ) ) Arrival Mode Wheelchair Wheelchair Wheelchair Transfer Assistance None None None Patient Identification Verified (Name & Yes Yes Yes ) Patient Requires Transmission-Based No No No Precautions Vital Signs Temperature (97.8 F-99.1 F) 97 F L 97.6 F L 97.8 F Temperature Source Temporal Temporal Temporal Pulse Rate (60-100) 57 L 55 L 53 L Pulse Location Monitor Monitor Monitor Respiratory Rate (12-18) 18 18 15 Respiratory rate source Observation Observation Observation Blood Pressure (90/60-120/80) 141/76 H 154/47 H 140/58 H Blood Pressure Mean (mm Hg) 97 82 85 Source Monitor Monitor Monitor Position Sitting Blood Pressure Location Right Arm History Since Last Visit- (Skip if this is Patient's initial visit) Have you changed medications since your No No No last visit? Any new allergies or adverse reactions No No No Had a fall/change in ADL's that may No No No increase risk of falls Signs or symptoms of abuse and/or No No No neglect since last visit Have you been in the hospital since your Yes No No last visit? Has dressing in place as prescribed Yes Yes Yes Has compression in place as prescribed Yes Yes N/A Has offloadiing in place as prescribed Yes Yes N/A Experienced any changes in pain level or No No No management Left Footwear Surgical Shoe Surgical Shoe with pressure with pressure relief insole relief insole Right Footwear Surgical Shoe Surgical Shoe with pressure with pressure relief insole relief insole Pain Scale: 0-10 Numeric Is Patient Pain Free? Yes Yes Yes WC - Nurse 1 - General Ulcer Measurement Start: 11/05/24 08:08 Freq: Status: Active Protocol: Activity Type Activity Date Activity User E-sign Co-sign Detail Recorded Client Recorded Date Recorded By Document 11/05/24 08:09 DL [id number] 11/05/24 08:18 DL Document 11/12/24 08:09 DL [id number] 11/12/24 08:16 DL Document 11/26/24 08:06 ML [id number] 11/26/24 08:16 ML 11/05/24 11/12/24 11/26/24 08:09 08:09 08:06 Wound Center Nurse 1 #4 R 2nd toe -Current Size (cm) - Length 0.1 0.1 0.1 -Current Size (cm) - Width 0.1 0.1 0.1 -Current Size (cm) - Depth 0.1 0.1 0.1 -Total Square Cm 0.01 0.01 0.01 -Photo Taken Yes Yes -Exudate Amt None Present None Present Small -Exudate Type Serosanguineous -Wound Margin Flat & Intact Indistinct, Non Distinct, -Visible Outline Attached -Granulation Amt Large (67-100%) Large (67-100%) None Present (0 %) -Granulation Quality [place] -Slough/Fibrin No -Necrosis Amt Small (1-33%) None Present (0 None Present (0 %) %) -Necrotic Tissue Type Eschar Adherent Slough -Structure Exposed N/A N/A -Texture (Destiny-wound Skin Appearance) Scarring Scarring Assessed -Moisture (Destiny-wound Skin Appearance) Dry/Scaly Dry/Scaly Assessed -Color (Destiny-wound Skin Appearance) No Abnormality No Abnormality Assessed -Temperature (Destiny-wound Skin No Abnormality No Abnormality No Abnormality Appearance) (Pt Warm) (Pt Warm) (Pt Warm) -Tenderness on Palpation (Destiny-wound No No Skin Appearance) -Ulcer Cleansing Rinsed/ Soap and Water Rinsed/ Irrigated with Irrigated with Saline Saline -Foul Odor after Cleansing No No -Anesthetic Used 5% Lidocaine 5% Lidocaine 5% Lidocaine Gel,Cetacaine Gel Gel Right Calf (cm) 41.7 Right Ankle (cm) 23.3 WC - Nurse 2 - General Ulcer CM Notes Start: 11/05/24 08:08 Freq: Status: Active Protocol: Activity Type Activity Date Activity User E-sign Co-sign Detail Recorded Client Recorded Date Recorded By Document 11/05/24 08:41 BM [id number] 11/05/24 08:43 BM Document 11/12/24 08:37 BMF [id number] 11/12/24 08:38 BM Document 11/26/24 08:31 BM [id number] 11/26/24 08:31 BMF 11/05/24 11/12/24 11/26/24 08:41 08:37 08:31 Wound Center Nurse 2 #4 R 2nd toe -Time 08:41 08:38 08:31 -Procedure Performed No No No -Post Debridement (cm) - Length 0.1 0.1 0 -Post Debridement (cm) - Width 0.1 0.1 0 -Post Debridement (cm) - Depth 0.1 0.1 0 -Total Square (Post) (cm) 0.01 0.01 0 -Area of Debridement (cm) - Length 0.1 0.1 0 -Area of Debridement (cm) - Width 0.1 0.1 0 -Total Square (Area) (cm) 0.01 0.01 0 -Tunneling No -Undermining/Tunneling No -Circular Undermining No -Wound/Ulcer Outcome Not Healed Healed- Epithelialized -Bleeding Controlled with NA NA NA Pain Scale: 0-10 Numeric Is Patient Pain Free? Yes Yes Yes WC - Nurse 3 - General Ulcer D/C NN Start: 11/05/24 08:08 Freq: Status: Active Protocol: Activity Type Activity Date Activity User E-sign Co-sign Detail Recorded Client Recorded Date Recorded By Document 11/05/24 08:58 BM [id number] 11/05/24 08:59 BM Document 11/12/24 09:00 DS [id number] 11/13/24 16:50 DS Document 11/26/24 08:42 ML [id number] 11/26/24 08:44 ML 11/05/24 11/12/24 11/26/24 08:58 09:00 08:42 Wound Care Center Nurse 3 #4 R 2nd toe -Ulcer Cleansing Rinsed/ Irrigated with Saline -Foul Odor after Cleansing No -Other Dressing bandaid -Primary Dressing Covered/Secured with Dry Gauze, Secured with Tape BLE -Tubular Bandage Double Layer Double Layer -Size of Tubigrip Used Size E Size E -Size E ($) 2 2 Treatment Response Procedure Tolerated Well Pain Scale: 0-10 Numeric Is Patient Pain Free? Yes Yes Yes WC - Visit Discharge Discharge Condition Stable Stable Ambulatory Status Wheelchair Transportation ecf Facility Type Junior Systems Analyst Care Facility 11/26/24 08:43 Wound Center by Milagro Hughes sent with pt and a note to have them apply with next change. Pants to tight around leg to apply and patient wanted to wait. Initialized on 11/26/24 08:43 - END OF NOTE Assessment/Plan Assessment/Plan (1) Non-pressure chronic ulcer of other part of right foot with fat layer exposed: CODE(S): L97.512 - Non-pressure chronic ulcer of other part of right foot with fat layer exposed (2) Neuropathy: CODE(S): G62.9 - Polyneuropathy, unspecified (3) Venous insufficiency (chronic) (peripheral): CODE(S): I87.2 - Venous insufficiency (chronic) (peripheral) (4) Edema, lower extremity: CODE(S): R60.0 - Localized edema PLAN: Plan Patient seen and evaluated Predebridement: healed Ulceration is secondary to trauma during assisted transfer at her facility. Ulceration did not undergo debridement as noted in the clinical panel above. Postdebridement measurement status is healed. No signs of infection. EpiFix graft #6 applied to the ulceration base 10/22/24. Site integrated well and has fully healed at this time. Ulcerative site has improved with healed status versus previous visit. She is to continue to elevate lower extremities at all times of rest for edema control. Patient does have neuropathy and bilateral lower extremity edema secondary to previous back surgery and nonambulatory status. Patient does transport with theassistance of motorized wheelchair. Discussed continued protein intake overall for health and strength. Nael supplementation/boost was also recommended to be continued I did discuss on 11/12/24 with her and her daughter possible debridement to the level of bone and removing any prominence of bone underlying her ulceration siteas this may be a potential cause of reulceration in addition to her continued edema of the lower extremity. She states she will think about the procedure nowthat this has been discussed with family. She is understanding as of today, 3/27/25 that if site does return ultimately procedure to remove a portion of bone would be recommended to prevent continued recidivism. Discussed signs and symptoms of infection with the patient and Corporate Health Consultant frame bander today. Educated them that if patient experiences increased redness about the ulcerative site that moves along the dorsal foot or up the leg, if shegets purulent drainage from the wound site, increasing foul odor from the wound site, or if she experiences fever greater than 101 degree accompanied by nausea,vomiting, chills that these are signs of a progressing infection and she should report to the ED to receive IV antibiotics and further evaluation. I have discussed potential risks of amputation secondary to depth of the wound and close proximity to bone. She is aware that if infection does set in the digit would likely need to be amputated at the corresponding metatarsal phalangeal joint. The following work up and care recommendations were made: Dressing: None Wash: Wash with soap and water Tissue growth optimization: None Offload: May return to regular shoe gear. May utilize right foot now to stand and assist in pivot transfer Vascular: LEAS performed June 2024 demonstrating no underlying arterial disease. 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 I answered all the patient's questions. To return to the wound healing center as needed or call sooner if the patient has any questions or concerns. 11/26/24925 <Electronically signed by Jadon Dolan DPM> Cosigner Signature (if applicable): CC: ~ Signed [facility] Work Phone: 1(890) 646-354903-27-2025 Progress note [facility] [address] [place] [address] Progress Note - Wound Care 11/26/24917 MR#: [id number] Acct: [id number] Name: PATRICIA HAWLEY Rep #:[id number] : 1945 79 From: Jadon alvarez DPM PCP: Dr. Wolf Berry MD Status:REG R CR Location: History of Present Illness Date of Service: 11/26/24 Chief Complaint: Ulceration dorsal second digit right foot History of Wound: This is a 79-year-old female who was referred to the wound care center for a nonhealing ulceration of the dorsal aspect of the second digitright foot. Patient states ulceration occurred after 2 aids at the [facility] facility transferred her utilizing a Jareth and bumped her toe against a refrigerator. States she has been going to the foot and ankle Center for continued care with Dr. Worley and they were applying Betadine daily for the last 8 weeks. Patient over that time has failed to progress in wound healing, but also states dressings have not been changed as instructed at her facility. She has followed with vascular surgery with LEAS performed in June 2024 demonstrating adequate perfusion with no evidence of arterial disease. Patient was referred to the wound care center for continued wound healing. She denies N/V/F/chills. Denies pain to the ulcerative site. Denies diabetes. 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 Denies further complaints. Subjective Subjective This 79-year-old female returns to the wound care center today for continued care of the dorsal ulceration to the second digit of the right foot. Accompaniedby frame bander from facility. She has neuropathy and has no sensation to the foot.Persistent swelling remains to lower extremities secondary to n onweight bearing/wheelchair bound status. States she is getting continued improvement following right hip fracture. Reports she is continuing to be careful to not bump the toe to reopen her wound, and feels it is healed. Denies constitutionalsymptoms. Denies further complaints. Objective Data Objective Data Vital Signs: Vital Signs Temp Pulse Resp BP O2 Flow Rate 97.8 F 53 L 15 140/58 H 2 11/26/24 08:06 11/26/24 08:06 11/26/24 08:06 11/26/24 08:06 10/31/24 00:44 Oxygen Flow Rate (L/min) 2 Physical Exam Const alert, oriented x3 and no apparent distress General Appearance: cooperative HEENT normocephalic Eyes General Eye: normal appearance of both eyes Neck General: normal visual inspection Lymph Lymphatic: no lymphadenopathy noted and no lymphedema noted Resp normal respiratory effort Cardio regular rate and regular rhythm Extremity no calf tenderness Extremity Narrative: Right lower extremity: Vascular: DP and PT pulses nonpalpable secondary to edema. CFT is less than 4 seconds to digits. Normal temperature gradient. Hair growth is absent to digits. Neurologic: Diminished sensation secondary to neuropathy post back surgery. Gross sensation intact.Motor function intact. Musculoskeletal: Muscle strength 4 of 5 secondary to prior surgery and nonambulatory status. No pain to palpation of calf. No pain to palpation aboutulcerative site. Decreased range of motion of the ankle joint in dorsiflexion with knee extended without pain or crepitus. Decreased range of motion of the first MTPJ without pain or crepitus. Dermatologic: There is moderate lower extremity edema secondary to her prior back surgery. Skin turgor normal. Ulceration to the dorsal aspect of the second digit has healed. No signs of infection. Left lower extremity: Vascular: DP and PT pulses nonpalpable secondary to edema. CFT is less than 4 seconds to digits. Normal temperature gradient. Hair growth is absent to digits. Neurologic: Diminished sensation secondary to neuropathy post back surgery. Gross sensation intact.Motor function intact. Musculoskeletal: Muscle strength 4 of 5 secondary to prior surgery and nonambulatory status. No pain to palpation of calf. Decreased range of motion of the ankle joint in dorsiflexion with knee extended without pain or crepitus. Decreased range of motion of the first MTPJ without pain or crepitus. Dermatologic: There is moderate lower extremity edema secondary to her prior back surgery. Skin turgor normal. Skin is mildly xerotic but otherwise unremarkable. Skin no rashes or lesions noted and skin turgor normal Neuro moves all extremities Debridement Note Debridement Note No debridement was completed: No debridement was completed today Post-Debridement Measurements and Additional Note: Post-Debridement Measurements/Treatment - Nurse 1 - General Ulcer Assessment Start: 11/05/24 08:08 Freq: Status: Active Protocol: ADÁN.DARICEXT Activity Type Activity Date Activity User E-sign Co-sign Detail Recorded Client Recorded Date Recorded By Document 11/05/24 08:09 DL [id number] 11/05/24 08:18 DL Document 11/12/24 08:09 DL [id number] 11/12/24 08:16 DL Document 11/26/24 08:06 ML [id number] 11/26/24 08:16 ML 11/05/24 11/12/24 11/26/24 08:09 08:09 08:06 - Today's Visit Information Type of service Follow-up Visit Follow-up Visit Follow-up Visit (Physician/SHIRT PRESSER (Physician/SHIRT PRESSER (Physician/SHIRT PRESSER ) ) ) Arrival Mode Wheelchair Wheelchair Wheelchair Transfer Assistance None None None Patient Identification Verified (Name & Yes Yes Yes ) Patient Requires Transmission-Based No No No Precautions Vital Signs Temperature (97.8 F-99.1 F) 97 F L 97.6 F L 97.8 F Temperature Source Temporal Temporal Temporal Pulse Rate (60-100) 57 L 55 L 53 L Pulse Location Monitor Monitor Monitor Respiratory Rate (12-18) 18 18 15 Respiratory rate source Observation Observation Observation Blood Pressure (90/60-120/80) 141/76 H 154/47 H 140/58 H Blood Pressure Mean (mm Hg) 97 82 85 Source Monitor Monitor Monitor Position Sitting Blood Pressure Location Right Arm History Since Last Visit- (Skip if this is Patient's initial visit) Have you changed medications since your No No No last visit? Any new allergies or adverse reactions No No No Had a fall/change in ADL's that may No No No increase risk of falls Signs or symptoms of abuse and/or No No No neglect since last visit Have you been in the hospital since your Yes No No last visit? Has dressing in place as prescribed Yes Yes Yes Has compression in place as prescribed Yes Yes N/A Has offloadiing in place as prescribed Yes Yes N/A Experienced any changes in pain level or No No No management Left Footwear Surgical Shoe Surgical Shoe with pressure with pressure relief insole relief insole Right Footwear Surgical Shoe Surgical Shoe with pressure with pressure relief insole relief insole Pain Scale: 0-10 Numeric Is Patient Pain Free? Yes Yes Yes - Nurse 1 - General Ulcer Measurement Start: 11/05/24 08:08 Freq: Status: Active Protocol: Activity Type Activity Date Activity User E-sign Co-sign Detail Recorded Client Recorded Date Recorded By Document 11/05/24 08:09 DL [id number] 11/05/24 08:18 DL Document 11/12/24 08:09 DL [id number] 11/12/24 08:16 DL Document 11/26/24 08:06 ML [id number] 11/26/24 08:16 ML 11/05/24 11/12/24 11/26/24 08:09 08:09 08:06 Wound Center Nurse 1 #4 R 2nd toe -Current Size (cm) - Length 0.1 0.1 0.1 -Current Size (cm) - Width 0.1 0.1 0.1 -Current Size (cm) - Depth 0.1 0.1 0.1 -Total Square Cm 0.01 0.01 0.01 -Photo Taken Yes Yes -Exudate Amt None Present None Present Small -Exudate Type Serosanguineous -Wound Margin Flat & Intact Indistinct, Non Distinct, -Visible Outline Attached -Granulation Amt Large (67-100%) Large (67-100%) None Present (0 %) -Granulation Quality [place] -Slough/Fibrin No -Necrosis Amt Small (1-33%) None Present (0 None Present (0 %) %) -Necrotic Tissue Type Eschar Adherent Slough -Structure Exposed N/A N/A -Texture (Destiny-wound Skin Appearance) Scarring Scarring Assessed -Moisture (Destiny-wound Skin Appearance) Dry/Scaly Dry/Scaly Assessed -Color (Destiny-wound Skin Appearance) No Abnormality No Abnormality Assessed -Temperature (Destiny-wound Skin No Abnormality No Abnormality No Abnormality Appearance) (Pt Warm) (Pt Warm) (Pt Warm) -Tenderness on Palpation (Destiny-wound No No Skin Appearance) -Ulcer Cleansing Rinsed/ Soap and Water Rinsed/ Irrigated with Irrigated with Saline Saline -Foul Odor after Cleansing No No -Anesthetic Used 5% Lidocaine 5% Lidocaine 5% Lidocaine Gel,Cetacaine Gel Gel Right Calf (cm) 41.7 Right Ankle (cm) 23.3 WC - Nurse 2 - General Ulcer CM Notes Start: 11/05/24 08:08 Freq: Status: Active Protocol: Activity Type Activity Date Activity User E-sign Co-sign Detail Recorded Client Recorded Date Recorded By Document 11/05/24 08:41 [facility] [id number] 11/05/24 08:43 [facility] Document 11/12/24 08:37 BM [id number] 11/12/24 08:38 BM Document 11/26/24 08:31 BM [id number] 11/26/24 08:31 BM 11/05/24 11/12/24 11/26/24 08:41 08:37 08:31 Wound Center Nurse 2 #4 R 2nd toe -Time 08:41 08:38 08:31 -Procedure Performed No No No -Post Debridement (cm) - Length 0.1 0.1 0 -Post Debridement (cm) - Width 0.1 0.1 0 -Post Debridement (cm) - Depth 0.1 0.1 0 -Total Square (Post) (cm) 0.01 0.01 0 -Area of Debridement (cm) - Length 0.1 0.1 0 -Area of Debridement (cm) - Width 0.1 0.1 0 -Total Square (Area) (cm) 0.01 0.01 0 -Tunneling No -Undermining/Tunneling No -Circular Undermining No -Wound/Ulcer Outcome Not Healed Healed- Epithelialized -Bleeding Controlled with NA NA NA Pain Scale: 0-10 Numeric Is Patient Pain Free? Yes Yes Yes - Nurse 3 - General Ulcer D/C NN Start: 11/05/24 08:08 Freq: Status: Active Protocol: Activity Type Activity Date Activity User E-sign Co-sign Detail Recorded Client Recorded Date Recorded By Document 11/05/24 08:58 [facility] [id number] 11/05/24 08:59 [facility] Document 11/12/24 09:00 DS [id number] 11/13/24 16:50 DS Document 11/26/24 08:42 ML [id number] 11/26/24 08:44 ML 11/05/24 11/12/24 11/26/24 08:58 09:00 08:42 Wound Care Center Nurse 3 #4 R 2nd toe -Ulcer Cleansing Rinsed/ Irrigated with Saline -Foul Odor after Cleansing No -Other Dressing bandaid -Primary Dressing Covered/Secured with Dry Gauze, Secured with Tape BLE -Tubular Bandage Double Layer Double Layer -Size of Tubigrip Used Size E Size E -Size E ($) 2 2 Treatment Response Procedure Tolerated Well Pain Scale: 0-10 Numeric Is Patient Pain Free? Yes Yes Yes - Visit Discharge Discharge Condition Stable Stable Ambulatory Status Wheelchair Transportation ecf Facility Type Junior Systems Analyst Care Facility 11/26/24 08:43 Wound Center by Milagro Hughes sent with pt and a note to have them apply with next change. Pants to tight around leg to apply and patient wanted to wait. Initialized on 11/26/24 08:43 - END OF NOTE Assessment/Plan Assessment/Plan (1) Non-pressure chronic ulcer of other part of right foot with fat layer exposed: CODE(S): L97.512 - Non-pressure chronic ulcer of other part of right foot with fat layer exposed (2) Neuropathy: CODE(S): G62.9 - Polyneuropathy, unspecified (3) Venous insufficiency (chronic) (peripheral): CODE(S): I87.2 - Venous insufficiency (chronic) (peripheral) (4) Edema, lower extremity: CODE(S): R60.0 - Localized edema PLAN: Plan Patient seen and evaluated Predebridement: healed Ulceration is secondary to trauma during assisted transfer at her facility. Ulceration did not undergo debridement as noted in the clinical panel above. Postdebridement measurement status is healed. No signs of infection. EpiFix graft #6 applied to the ulceration base 10/22/24. Site integrated well and has fully healed at this time. Ulcerative site has improved with healed status versus previous visit. She is to continue to elevate lower extremities at all times of rest for edema control. Patient does have neuropathy and bilateral lower extremity edema secondary to previous back surgeryand nonambulatory status. Patient does transport with theassistance of motorized wheelchair. Discussed continued protein intake overall for health and strength. Nael supplementation/boost wasalso recommended to be continued I did discuss on 11/12/24 with her and her daughter possible debridement to the level of bone and removing any prominence of bone underlying her ulceration siteas this may be a potential cause of reulceration in addition to her continued edema of the lower extremity. She states she will think about the procedure nowthat this has been discussed with family. She is understanding as of today, 11/26/24at if site does return ultimately procedure to remove a portion of bone would be recommended to prevent continued recidivism. Discussed signs and symptoms of infection with the patient and Corporate Health Consultant frame bander today. Educated them that if patient experiences increased redness about the ulcerative site that moves along the dorsal foot or up the leg, if shegets purulent drainage from the wound site, increasing foul odor fromthe wound site, or if she experiences fever greater than 101 degree accompanied by nausea,vomiting,chills that these are signs of a progressing infection and she should report to the ED to receive IV antibiotics and further evaluation. I have discussed potential risks of amputation secondary to depth of the wound and close proximity to bone. She is aware that if infection does set in the digit wo uld likely need to be amputated at the corresponding metatarsal phalangeal joint. The following work up and care recommendations were made: Dressing: None Wash: Wash with soap and water Tissue growth optimization: None Offload: May return to regular shoe gear. May utilize right foot now to stand and assist in pivot transfer Vascular: LEAS performed June 2024 demonstrating no underlying arterial disease. 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 I answered all the patient's questions. To return to the wound healing center as needed or call sooner if the patient has any questions or concerns. 11/26/24 09 Cosigner Signature (if applicable): CC: ~ Signed [facility]03-13-2025 Progress note [facility] Note Date/Time November 12, 2024 9:1 1am [facility] [address] [place] [address] Progress Note - Wound Care 11/12/24906 MR#: [id number] Acct: [id number] Name: PATRICIA HAWLEY Rep #:[id number] : 1945 79 From: Jadon alvarez DPM PCP: Dr. Wolf Berry MD Status:REG R CR Location: History of Present Illness Date of Service: 11/12/24 Chief Complaint: Ulceration dorsal second digit right foot History of Wound: This is a 79-year-old female who was referred to the wound care center for a nonhealing ulceration of the dorsal aspect of the second digitright foot. Patient states ulceration occurred after 2 aids at the [facility] facility transferred her utilizing a Jareth and bumped her toe against a refrigerator. States she has been going to the foot and ankle Center for continued care with Dr. Worley and they were applying Betadine daily for the last 8 weeks. Patient over that time has failed to progress in wound healing, but also states dressings have not been changed as instructed at her facility. She has followed with vascular surgery with LEAS performed in June 2024 demonstrating adequate perfusion with no evidence of arterial disease. Patient was referred to the wound care center for continued wound healing. She denies N/V/F/chills. Denies pain to the ulcerative site. Denies diabetes. 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 Denies further complaints. Subjective Subjective This 79-year-old female returns to the wound care center today for continued care of the dorsal ulceration to the second digit of the right foot. Accompaniedby frame bander from facility and daughter also present today. She has neuropathy and has no sensation to the foot. Persistent swelling remains to lower extremities. States she is getting some improvement following right hip fracture. Reports she is continuing to be careful to not bump the toe to reopenher wound. Denies constitutional symptoms. Denies further complaints. Objective Data Objective Data Vital Signs: Vital Signs Temp Pulse Resp BP O2 Flow Rate 97.6 F L 55 L 18 154/47 H 2 11/12/24 08:09 11/12/24 08:09 11/12/24 08:09 11/12/24 08:09 10/31/24 00:44 Oxygen Flow Rate (L/min) 2 Physical Exam Const alert, oriented x3 and no apparent distress General Appearance: cooperative HEENT normocephalic Eyes General Eye: normal appearance of both eyes Neck General: normal visual inspection Lymph Lymphatic: no lymphadenopathy noted and no lymphedema noted Resp normal respiratory effort Cardio regular rate and regular rhythm Extremity no calf tenderness Extremity Narrative: Right lower extremity: Vascular: DP and PT pulses nonpalpable secondary to edema. CFT is less than 4 seconds to digits. Normal temperature gradient. Hair growth is absent to digits. Neurologic: Diminished sensation secondary to neuropathy post back surgery. Gross sensation intact. Motor function intact. Musculoskeletal: Muscle strength 4 of 5 secondary to prior surgery and nonambulatory status. No pain to palpation of calf. No pain to palpation aboutulcerative site. Decreased range of motion of the ankle joint in dorsiflexion with knee extended without pain or crepitus. Decreased range of motion of the first MTPJ without pain or crepitus. Dermatologic: There is moderate lower extremity edema secondary to her prior back surgery. Skin turgor normal. Ulceration to the dorsal aspect of the second digit overlying the proximal interphalangeal joint demonstrates newly epithelializing skin however this is still friable. No erythema, no purulent drainage, no malodor. No signs of infection. Left lower extremity: Vascular: DP and PT pulses nonpalpable secondary to edema. CFT is less than 4 seconds to digits. Normal temperature gradient. Hair growth is absent to digits. Neurologic: Diminished sensation secondary to neuropathy post back surgery. Gross sensation intact. Motor function intact. Musculoskeletal: Muscle strength 4 of 5 secondary to prior surgery and nonambulatory status. No pain to palpation of calf. Decreased range of motion of the ankle joint in dorsiflexion with knee extended without pain or crepitus. Decreased range of motion of the first MTPJ without pain or crepitus. Dermatologic: There is moderate lower extremity edema secondary to her prior back surgery. Skin turgor normal. Skin is mildly xerotic but otherwise unremarkable. Skin no rashes or lesions noted and skin turgor normal Neuro moves all extremities Debridement Note Debridement Note No debridement was completed: No debridement was completed today Post-Debridement Measurements and Additional Note: Post-Debridement Measurements/Treatment - Nurse 1 - General Ulcer Assessment Start: 11/05/24 08:08 Freq: Status: Active Protocol: ADÁN.GRANT Activity Type Activity Date Activity User E-sign Co-sign Detail Recorded Client Recorded Date Recorded By Document 11/05/24 08:09 DL [id number] 11/05/24 08:18 DL Document 11/12/24 08:09 DL [id number] 11/12/24 08:16 DL 11/05/24 11/12/24 08:09 08:09 - Today's Visit Information Type of service Follow-up Visit Follow-up Visit (Physician/SHIRT PRESSER (Physician/SHIRT PRESSER ) ) Arrival Mode Wheelchair Wheelchair Transfer Assistance None None Patient Identification Verified (Name & Yes Yes ) Patient Requires Transmission-Based No No Precautions Vital Signs Temperature (97.8 F-99.1 F) 97 F L 97.6 F L Temperature Source Temporal Temporal Pulse Rate (60-100) 57 L 55 L Pulse Location Monitor Monitor Respiratory Rate (12-18) 18 18 Respiratory rate source Observation Observation Blood Pressure (90/60-120/80) 141/76 H 154/47 H Blood Pressure Mean (mm Hg) 97 82 Source Monitor Monitor History Since Last Visit- (Skip if this is Patient's initial visit) Have you changed medications since your No No last visit? Any new allergies or adverse reactions No No Had a fall/change in ADL's that may No No increase risk of falls Signs or symptoms of abuse and/or No No neglect since last visit Have you been in the hospital since your Yes No last visit? Has dressing in place as prescribed Yes Yes Has compression in place as prescribed Yes Yes Has offloadiing in place as prescribed Yes Yes Experienced any changes in pain level or No No management Left Footwear Surgical Shoe Surgical Shoe with pressure with pressure relief insole relief insole Right Footwear Surgical Shoe Surgical Shoe with pressure with pressure relief insole relief insole Pain Scale: 0-10 Numeric Is Patient Pain Free? Yes Yes WC - Nurse 1 - General Ulcer Measurement Start: 11/05/24 08:08 Freq: Status: Active Protocol: Activity Type Activity Date Activity User E-sign Co-sign Detail Recorded Client Recorded Date Recorded By Document 11/05/24 08:09 DL [id number] 11/05/24 08:18 DL Document 11/12/24 08:09 DL [id number] 11/12/24 08:16 DL 11/05/24 11/12/24 08:09 08:09 Wound Center Nurse 1 #4 R 2nd toe -Current Size (cm) - Length 0.1 0.1 -Current Size (cm) - Width 0.1 0.1 -Current Size (cm) - Depth 0.1 0.1 -Total Square Cm 0.01 0.01 -Photo Taken Yes Yes -Exudate Amt None Present None Present -Wound Margin Flat & Intact Indistinct, Non -Visible -Granulation Amt Large (67-100%) Large (67-100%) -Granulation Quality [place] -Necrosis Amt Small (1-33%) None Present (0 %) -Necrotic Tissue Type Eschar -Structure Exposed N/A N/A -Texture (Destiny-wound Skin Appearance) Scarring Scarring -Moisture (Destiny-wound Skin Appearance) Dry/Scaly Dry/Scaly -Color (Destiny-wound Skin Appearance) No Abnormality No Abnormality -Temperature (Destiny-wound Skin No Abnormality No Abnormality Appearance) (Pt Warm) (Pt Warm) -Tenderness on Palpation (Destiny-wound No Skin Appearance) -Ulcer Cleansing Rinsed/ Soap and Water Irrigated with Saline -Foul Odor after Cleansing No -Anesthetic Used 5% Lidocaine 5% Lidocaine Gel,Cetacaine Gel Right Calf (cm) 41.7 Right Ankle (cm) 23.3 - Nurse 2 - General Ulcer CM Notes Start: 11/05/24 08:08 Freq: Status: Active Protocol: Activity Type Activity Date Activity User E-sign Co-sign Detail Recorded Client Recorded Date Recorded By Document 11/05/24 08:41 [facility] [id number] 11/05/24 08:43 [facility] Document 11/12/24 08:37 [facility] [id number] 11/12/24 08:38 [facility] 11/05/24 11/12/24 08:41 08:37 Wound Center Nurse 2 #4 R 2nd toe -Time 08:41 08:38 -Procedure Performed No No -Post Debridement (cm) - Length 0.1 0.1 -Post Debridement (cm) - Width 0.1 0.1 -Post Debridement (cm) - Depth 0.1 0.1 -Total Square (Post) (cm) 0.01 0.01 -Area of Debridement (cm) - Length 0.1 0.1 -Area of Debridement (cm) - Width 0.1 0.1 -Total Square (Area) (cm) 0.01 0.01 -Tunneling No -Undermining/Tunneling No -Circular Undermining No -Wound/Ulcer Outcome Not Healed -Bleeding Controlled with NA NA Pain Scale: 0-10 Numeric Is Patient Pain Free? Yes Yes - Nurse 3 - General Ulcer D/C NN Start: 11/05/24 08:08 Freq: Status: Active Protocol: Activity Type Activity Date Activity User E-sign Co-sign Detail Recorded Client Recorded Date Recorded By Document 11/05/24 08:58 [facility] [id number] 11/05/24 08:59 [facility] 11/05/24 08:58 Wound Care Center Nurse 3 #4 R 2nd toe -Ulcer Cleansing Rinsed/ Irrigated with Saline -Foul Odor after Cleansing No -Other Dressing bandaid Treatment Response Procedure Tolerated Well Pain Scale: 0-10 Numeric Is Patient Pain Free? Yes - Visit Discharge Discharge Condition Stable Ambulatory Status Wheelchair Transportation ecf Facility Type Junior Systems Analyst Care Facility Assessment/Plan Assessment/Plan (1) Non-pressure chronic ulcer of other part of right foot with fat layer exposed: CODE(S): L97.512 - Non-pressure chronic ulcer of other part of right foot with fat layer exposed (2) Neuropathy: CODE(S): G62.9 - Polyneuropathy, unspecified (3) Venous insufficiency (chronic) (peripheral): CODE(S): I87.2 - Venous insufficiency (chronic) (peripheral) (4) Edema, lower extremity: CODE(S): R60.0 - Localized edema PLAN: Plan Patient seen and evaluated Predebridement: 0.1 cm x 0.1 cm x 0.1 cm Ulceration is secondary to trauma during assisted transfer at her facility. Ulceration did not undergo debridement as noted in the clinical panel above. Postdebridement measurement 0.1 cm x 0.1 cm x 0.1 cm with healthy granular tissue. No signs of infection. EpiFix graft #6 applied to the ulceration base 10/22/24. Site integrated well. There is a newly epithelialized skin, however this is still friable at site. No signs of infection. Will continue to pad and protect with Band-Aid for next 10-14 days. Ulcerative site has improved with reduction in size versus previous visit and newly epithelializing skin which is nearing complete healing status. She is to continue to elevate lower extremities at all times of rest for edema control. Patient does have neuropathy and bilateral lower extremity edema secondary to previous back surgery and nonambulatory status. Patient does transport with theassistance of motorized wheelchair. Discussed continued protein intake to aid in wound healing. Nael supplementation/boost was also recommended to be continued She has been approved for advanced wound care product, EpiFix. Will continue applications. I did discuss today with her and her daughter possible debridement to the level of bone and removing any prominence of bone underlying her ulceration site as this may be a potential cause of reulceration in addition to her continued edemaof the lower extremity. She states she will think about the procedure now that this has been discussed with family. Discussed signs and symptoms of infection with the patient and Corporate Health Consultant frame bander today. Educated them that if patient experiences increased redness about the ulcerative site that moves along the dorsal foot or up the leg, if shegets purulent drainage from the wound site, increasing foul odor from the wound site, or if she experiences fever greater than 101 degree accompanied by nausea,vomiting, chills that these are signs of a progressing infection and she should report to the ED to receive IV antibiotics and further evaluation. I have discussed potential risks of amputation secondary to depth of the wound and close proximity to bone. She is aware that if infection does set in the digit would likely need to be amputated at the corresponding metatarsal phalangeal joint. The following work up and care recommendations were made: Dressing: Pad and protect with Band-Aid for next 10-14 days. Wash: Wash with soap and water Tissue growth optimization: None Offload: Continue wearing surgical shoe to offload dorsal aspect of the right foot Vascular: LEAS performed June 2024 demonstrating no underlying arterial disease. Vascular status not impeding wound healing Edema: Continue wearing compression stockings and elevate lower extremities to aid in edema control Infection: No signs of infection Pain: No pain secondary to neuropathy related to prior back surgery Host factors: Chronic venous insufficiency, chronic bilateral lower extremity edema, nonambulatory status secondary to prior back surgery I answered all the patient's questions. To return to the wound healing center in 2 weeks or call sooner if the patient has any questions or concerns. 11/12/24 0911 <Electronically signed by Jadon Dolan DPM> Cosigner Signature (if applicable): CC: ~ Signed [facility] Work Phone: [phone] Progress note [facility] [address] [place] [address] Progress Note - Wound Care 11/12/24 0907 MR#: [id number] Acct: [id number] Name: PATRICIA HAWLEY Rep #:[id number] : 1945 79 From: Jadon alvarez DPM PCP: Dr. Wolf Berry MD Status:REG R CR Location: History of Present Illness Date of Service: 11/12/24 Chief Complaint: Ulceration dorsal second digit right foot History of Wound: This is a 79-year-old female who was referred to the wound care center for a nonhealing ulceration of the dorsal aspect of the second digitright foot. Patient states ulceration occurred after 2 aids at the [facility] facility transferred her utilizing a Jareth and bumped her toe against a refrigerator. States she has been going to the foot and ankle Center for continued care with Dr. Worley and they were applying Betadine daily for the last 8 weeks. Patient over that time has failed to progress in wound healing, but also states dressings have not been changed as instructed at her facility. She has followed with vascular surgery with LEAS performed in June 2024 demonstrating adequate perfusion with no evidence of arterial disease. Patient was referred to the wound care center for continued wound healing. She denies N/V/F/chills. Denies pain to the ulcerative site. Denies diabetes. 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 Denies further complaints. Subjective Subjective This 79-year-old female returns to the wound care center today for continued care of the dorsal ulceration to the second digit of the right foot. Accompaniedby frame bander from facility and daughter also present today. She has neuropathy and has no sensation to the foot. Persistent swelling remains to lower extremities. States she is getting some improvement following right hip fracture. Reports she is continuing to be careful to not bump the toe to reopenher wound. Denies constitutional symptoms. Denies further complaints. Objective Data Objective Data Vital Signs: Vital Signs Temp Pulse Resp BP O2 Flow Rate 97.6 F L 55 L 18 154/47 H 2 11/12/24 08:09 11/12/24 08:09 11/12/24 08:09 11/12/24 08:09 10/31/24 00:44 Oxygen Flow Rate (L/min) 2 Physical Exam Const alert, oriented x3 and no apparent distress General Appearance: cooperative HEENT normocephalic Eyes General Eye: normal appearance of both eyes Neck General: normal visual inspection Lymph Lymphatic: no lymphadenopathy noted and no lymphedema noted Resp normal respiratory effort Cardio regular rate and regular rhythm Extremity no calf tenderness Extremity Narrative: Right lower extremity: Vascular: DP and PT pulses nonpalpable secondary to edema. CFT is less than 4 seconds to digits. Normal temperature gradient. Hair growth is absent to digits. Neurologic: Diminished sensation secondary to neuropathy post back surgery. Gross sensation intact.Motor function intact. Musculoskeletal: Muscle strength 4 of 5 secondary to prior surgery and nonambulatory status. No pain to palpation of calf. No pain to palpation aboutulcerative site. Decreased range of motion of the ankle joint in dorsiflexion with knee extended without pain or crepitus. Decreased range of motion of the first MTPJ without pain or crepitus. Dermatologic: There is moderate lower extremity edema secondary to her prior back surgery. Skin turgor normal. Ulceration to the dorsal aspect of the second digit overlying the proximal interphalangeal joint demonstrates newly epithelializing skin however this is still friable. No erythema, no purulent drainage, no malodor. No signs of infection. Left lower extremity: Vascular: DP and PT pulses nonpalpable secondary to edema. CFT is less than 4 seconds to digits. Normal temperature gradient. Hair growth is absent to digits. Neurologic: Diminished sensation secondary to neuropathy post back surgery. Gross sensation intact.Motor function intact. Musculoskeletal: Muscle strength 4 of 5 secondary to prior surgery and nonambulatory status. No pain to palpation of calf. Decreased range of motion of the ankle joint in dorsiflexion with knee extended without pain or crepitus. Decreased range of motion of the first MTPJ without pain or crepitus. Dermatologic: There is moderate lower extremity edema secondary to her prior back surgery. Skin turgor normal. Skin is mildly xerotic but otherwise unremarkable. Skin no rashes or lesions noted and skin turgor normal Neuro moves all extremities Debridement Note Debridement Note No debridement was completed: No debridement was completed today Post-Debridement Measurements and Additional Note: Post-Debridement Measurements/Treatment - Nurse 1 - General Ulcer Assessment Start: 11/05/24 08:08 Freq: Status: Active Protocol: ADÁN.GRANT Activity Type Activity Date Activity User E-sign Co-sign Detail Recorded Client Recorded Date Recorded By Document 11/05/24 08:09 DL [id number] 11/05/24 08:18 DL Document 11/12/24 08:09 DL [id number] 11/12/24 08:16 DL 11/05/24 11/12/24 08:09 08:09 - Today's Visit Information Type of service Follow-up Visit Follow-up Visit (Physician/SHIRT PRESSER (Physician/SHIRT PRESSER ) ) Arrival Mode Wheelchair Wheelchair Transfer Assistance None None Patient Identification Verified (Name & Yes Yes ) Patient Requires Transmission-Based No No Precautions Vital Signs Temperature (97.8 F-99.1 F) 97 F L 97.6 F L Temperature Source Temporal Temporal Pulse Rate (60-100) 57 L 55 L Pulse Location Monitor Monitor Respiratory Rate (12-18) 18 18 Respiratory rate source Observation Observation Blood Pressure (90/60-120/80) 141/76 H 154/47 H Blood Pressure Mean (mm Hg) 97 82 Source Monitor Monitor History Since Last Visit- (Skip if this is Patient's initial visit) Have you changed medications since your No No last visit? Any new allergies or adverse reactions No No Had a fall/change in ADL's that may No No increase risk of falls Signs or symptoms of abuse and/or No No neglect since last visit Have you been in the hospital since your Yes No last visit? Has dressing in place as prescribed Yes Yes Has compression in place as prescribed Yes Yes Has offloadiing in place as prescribed Yes Yes Experienced any changes in pain level or No No management Left Footwear Surgical Shoe Surgical Shoe with pressure with pressure relief insole relief insole Right Footwear Surgical Shoe Surgical Shoe with pressure with pressure relief insole relief insole Pain Scale: 0-10 Numeric Is Patient Pain Free? Yes Yes WC - Nurse 1 - General Ulcer Measurement Start: 11/05/24 08:08 Freq: Status: Active Protocol: Activity Type Activity Date Activity User E-sign Co-sign Detail Recorded Client Recorded Date Recorded By Document 11/05/24 08:09 DL [id number] 11/05/24 08:18 DL Document 11/12/24 08:09 DL [id number] 11/12/24 08:16 DL 11/05/24 11/12/24 08:09 08:09 Wound Center Nurse 1 #4 R 2nd toe -Current Size (cm) - Length 0.1 0.1 -Current Size (cm) - Width 0.1 0.1 -Current Size (cm) - Depth 0.1 0.1 -Total Square Cm 0.01 0.01 -Photo Taken Yes Yes -Exudate Amt None Present None Present -Wound Margin Flat & Intact Indistinct, Non -Visible -Granulation Amt Large (67-100%) Large (67-100%) -Granulation Quality [place] -Necrosis Amt Small (1-33%) None Present (0 %) -Necrotic Tissue Type Eschar -Structure Exposed N/A N/A -Texture (Destiny-wound Skin Appearance) Scarring Scarring -Moisture (Destiny-wound Skin Appearance) Dry/Scaly Dry/Scaly -Color (Destiny-wound Skin Appearance) No Abnormality No Abnormality -Temperature (Destiny-wound Skin No Abnormality No Abnormality Appearance) (Pt Warm) (Pt Warm) -Tenderness on Palpation (Destiny-wound No Skin Appearance) -Ulcer Cleansing Rinsed/ Soap and Water Irrigated with Saline -Foul Odor after Cleansing No -Anesthetic Used 5% Lidocaine 5% Lidocaine Gel,Cetacaine Gel Right Calf (cm) 41.7 Right Ankle (cm) 23.3 WC - Nurse 2 - General Ulcer CM Notes Start: 11/05/24 08:08 Freq: Status: Active Protocol: Activity Type Activity Date Activity User E-sign Co-sign Detail Recorded Client Recorded Date Recorded By Document 11/05/24 08:41 [facility] [id number] 11/05/24 08:43 [facility] Document 11/12/24 08:37 [facility] [id number] 11/12/24 08:38 [facility] 11/05/24 11/12/24 08:41 08:37 Wound Center Nurse 2 #4 R 2nd toe -Time 08:41 08:38 -Procedure Performed No No -Post Debridement (cm) - Length 0.1 0.1 -Post Debridement (cm) - Width 0.1 0.1 -Post Debridement (cm) - Depth 0.1 0.1 -Total Square (Post) (cm) 0.01 0.01 -Area of Debridement (cm) - Length 0.1 0.1 -Area of Debridement (cm) - Width 0.1 0.1 -Total Square (Area) (cm) 0.01 0.01 -Tunneling No -Undermining/Tunneling No -Circular Undermining No -Wound/Ulcer Outcome Not Healed -Bleeding Controlled with NA NA Pain Scale: 0-10 Numeric Is Patient Pain Free? Yes Yes - Nurse 3 - General Ulcer D/C NN Start: 11/05/24 08:08 Freq: Status: Active Protocol: Activity Type Activity Date Activity User E-sign Co-sign Detail Recorded Client Recorded Date Recorded By Document 11/05/24 08:58 [facility] [id number] 11/05/24 08:59 [facility] 11/05/24 08:58 Wound Care Center Nurse 3 #4 R 2nd toe -Ulcer Cleansing Rinsed/ Irrigated with Saline -Foul Odor after Cleansing No -Other Dressing bandaid Treatment Response Procedure Tolerated Well Pain Scale: 0-10 Numeric Is Patient Pain Free? Yes - Visit Discharge Discharge Condition Stable Ambulatory Status Wheelchair Transportation ecf Facility Type Junior Systems Analyst Care Facility Assessment/Plan Assessment/Plan (1) Non-pressure chronic ulcer of other part of right foot with fat layer exposed: CODE(S): L97.512 - Non-pressure chronic ulcer of other part of right foot with fat layer exposed (2) Neuropathy: CODE(S): G62.9 - Polyneuropathy, unspecified (3) Venous insufficiency (chronic) (peripheral): CODE(S): I87.2 - Venous insufficiency (chronic) (peripheral) (4) Edema, lower extremity: CODE(S): R60.0 - Localized edema PLAN: Plan Patient seen and evaluated Predebridement: 0.1 cm x 0.1 cm x 0.1 cm Ulceration is secondary to trauma during assisted transfer at her facility. Ulceration did not undergo debridement as noted in the clinical panel above. Postdebridement measurement 0.1 cm x 0.1 cm x 0.1 cm with healthy granular tissue. No signs of infection. EpiFix graft #6 applied to the ulceration base 10/22/24. Site integrated well. There is a newly epithelialized skin, however this is still friable at site. No signs of infection. Will continue to pad and protect with Band-Aid for next 10-14 days. Ulcerative site has improved with reduction in size versus previous visit and newly epithelializingskin which is nearing complete healing status. She is to continue to elevate lower extremities at all times of rest for edema control. Patient does have neuropathy and bilateral lower extremity edema secondary to previous back surgeryand nonambulatory status. Patient does transport with theassistance of motorized wheelchair. Discussed continued protein intake to aid in wound healing. Nael supplementation/boost was also recommended to be continued She has been approved for advanced wound care product, EpiFix. Will continue applications. I did discuss today with her and her daughter possible debridement to the level of bone and removing any prominence of bone underlying her ulceration site as this may be a potential cause of reulceration in addition to her continued edemaof the lower extremity. She states she will think about the procedure now that this has been discussed with family. Discussed signs and symptoms of infection with the patient and Corporate Health Consultant frame bander today. Educated them that if patient experiences increased redness about the ulcerative site that moves along the dorsal foot or up the leg, if shegets purulent drainage from the wound site, increasing foul odor fromthe wound site, or if she experiences fever greater than 101 degree accompanied by nausea,vomiting,chills that these are signs of a progressing infection and she should report to the ED to receive IV antibiotics and further evaluation. I have discussed potential risks of amputation secondary to depth of the wound and close proximity to bone. She is aware that if infection does set in the digit wo uld likely need to be amputated at the corresponding metatarsal phalangeal joint. The following work up and care recommendations were made: Dressing: Pad and protect with Band-Aid for next 10-14 days. Wash: Wash with soap and water Tissue growth optimization: None Offload: Continue wearing surgical shoe to offload dorsal aspect of the right foot Vascular: LEAS performed June 2024 demonstrating no underlying arterial disease. Vascular statusnot impeding wound healing Edema: Continue wearing compression stockings and elevate lower extremities to aid in edema control Infection: No signs of infection Pain: No pain secondary to neuropathy related to prior back surgery Host factors: Chronic venous insufficiency, chronic bilateral lower extremity edema, nonambulatory status secondary to prior back surgery I answered all the patient's questions. To return to the wound healing center in 2 weeks or call sooner if the patient has any questions or concerns. 11/12/24 0911 Cosigner Signature (if applicable): CC: ~ Signed [facility]03-06-2025 Progress note Author Jadon Dolan [facility] Note Date/Time November 05, 2024 7:57 am [facility] [address] [place] [address] Progress Note - Wound Care 11/05/24 0832 MR#: [id number] Acct: [id number] Name: PATRICIA HAWLEY Rep #:[id number] : 1945 79 From: Jadon alvarez DPM PCP: Dr. Wolf Berry MD Status:REG R CR Location: History of Present Illness Date of Service: 11/05/24 Chief Complaint: Ulceration dorsal second digit right foot History of Wound: This is a 79-year-old female who was referred to the wound care center for a nonhealing ulceration of the dorsal aspect of the second digitright foot. Patient states ulceration occurred after 2 aids at the [facility] facility transferred her utilizing a Jareth and bumped her toe against a refrigerator. States she has been going to the foot and ankle Center for continued care with Dr. Worley and they were applying Betadine daily for the last 8 weeks. Patient over that time has failed to progress in wound healing, but also states dressings have not been changed as instructed at her facility. She has followed with vascular surgery with LEAS performed in June 2024 demonstrating adequate perfusion with no evidence of arterial disease. Patient was referred to the wound care center for continued wound healing. She denies N/V/F/chills. Denies pain to the ulcerative site. Denies diabetes. 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 Denies further complaints. Subjective Subjective This 79-year-old female returns to the wound care center today for continued care of the dorsal ulceration to the second digit of the right foot. Accompaniedby frame bander from facility and daughter also present today. She has neuropathy and has no sensation to the foot. Persistent swelling remains to lower extremities. Graft has been left intact to Right foot. [facility] trochanteric/periprosthetic fracture ofthe left hip secondary to falling from a Jareth lift at her facility during transfer. Hip fracture was nonoperable and she was later discharged. States her hip still does hurt. Denies constitutional symptoms. Denies further complaints. Objective Data Objective Data Vital Signs: Vital Signs Temp Pulse Resp BP O2 Flow Rate 97 F L 57 L 18 141/76 H 2 11/05/24 08:09 11/05/24 08:09 11/05/24 08:09 11/05/24 08:09 10/31/24 00:44 Oxygen Flow Rate (L/min) 2 Physical Exam Const alert, oriented x3 and no apparent distress General Appearance: cooperative HEENT normocephalic Eyes General Eye: normal appearance of both eyes Neck General: normal visual inspection Lymph Lymphatic: no lymphadenopathy noted and no lymphedema noted Resp normal respiratory effort Cardio regular rate and regular rhythm Extremity no calf tenderness Extremity Narrative: Right lower extremity: Vascular: DP and PT pulses nonpalpable secondary to edema. CFT is less than 4 seconds to digits. Normal temperature gradient. Hair growth is absent to digits. Neurologic: Diminished sensation secondary to neuropathy post back surgery. Gross sensation intact. Motor function intact. Musculoskeletal: Muscle strength 4 of 5 secondary to prior surgery and nonambulatory status. No pain to palpation of calf. No pain to palpation aboutulcerative site. Decreased range of motion of the ankle joint in dorsiflexion with knee extended without pain or crepitus. Decreased range of motion of the first MTPJ without pain or crepitus. Dermatologic: There is moderate lower extremity edema secondary to her prior back surgery. Skin turgor normal. Ulceration to the dorsal aspect of the second digit overlying the proximal interphalangeal joint demonstrates superficial stable eschar overlying previous site from previous graft product. No erythema,no purulent drainage, no malodor. No signs of infection. Left lower extremity: Vascular: DP and PT pulses nonpalpable secondary to edema. CFT is less than 4 seconds to digits. Normal temperature gradient. Hair growth is absent to digits. Neurologic: Diminished sensation secondary to neuropathy post back surgery. Gross sensation intact. Motor function intact. Musculoskeletal: Muscle strength 4 of 5 secondary to prior surgery and nonambulatory status. No pain to palpation of calf. Decreased range of motion of the ankle joint in dorsiflexion with knee extended without pain or crepitus. Decreased range of motion of the first MTPJ without pain or crepitus. Dermatologic: There is moderate lower extremity edema secondary to her prior back surgery. Skin turgor normal. Skin is mildly xerotic but otherwise unremarkable. Skin no rashes or lesions noted and skin turgor normal Neuro moves all extremities Debridement Note Debridement Note No debridement was completed: No debridement was completed today Post-Debridement Measurements and Additional Note: Post-Debridement Measurements/Treatment - Nurse 1 - General Ulcer Assessment Start: 11/05/24 08:08 Freq: Status: Active Protocol: ADÁN.LOWEXT Activity Type Activity Date Activity User E-sign Co-sign Detail Recorded Client Recorded Date Recorded By Document 11/05/24 08:09 [facility] [id number] 11/05/24 08:18 DL 11/05/24 08:09 - Today's Visit Information Type of service Follow-up Visit (Physician/SHIRT PRESSER ) Arrival Mode Wheelchair Transfer Assistance None Patient Identification Verified (Name & Yes ) Patient Requires Transmission-Based No Precautions Vital Signs Temperature (97.8 F-99.1 F) 97 F L Temperature Source Temporal Pulse Rate (60-100) 57 L Pulse Location Monitor Respiratory Rate (12-18) 18 Respiratory rate source Observation Blood Pressure (90/60-120/80) 141/76 H Blood Pressure Mean (mm Hg) 97 Source Monitor History Since Last Visit- (Skip if this is Patient's initial visit) Have you changed medications since your No last visit? Any new allergies or adverse reactions No Had a fall/change in ADL's that may No increase risk of falls Signs or symptoms of abuse and/or No neglect since last visit Have you been in the hospital since your Yes last visit? Has dressing in place as prescribed Yes Has compression in place as prescribed Yes Has offloadiing in place as prescribed Yes Experienced any changes in pain level or No management Left Footwear Surgical Shoe with pressure relief insole Right Footwear Surgical Shoe with pressure relief insole Pain Scale: 0-10 Numeric Is Patient Pain Free? Yes WC - Nurse 1 - General Ulcer Measurement Start: 11/05/24 08:08 Freq: Status: Active Protocol: Activity Type Activity Date Activity User E-sign Co-sign Detail Recorded Client Recorded Date Recorded By Document 11/05/24 08:09 DL [id number] 11/05/24 08:18 DL 11/05/24 08:09 Wound Center Nurse 1 #4 R 2nd toe -Current Size (cm) - Length 0.1 -Current Size (cm) - Width 0.1 -Current Size (cm) - Depth 0.1 -Total Square Cm 0.01 -Photo Taken Yes -Exudate Amt None Present -Wound Margin Flat & Intact -Granulation Amt Large (67-100%) -Necrosis Amt Small (1-33%) -Necrotic Tissue Type Eschar -Structure Exposed N/A -Texture (Destiny-wound Skin Appearance) Scarring -Moisture (Destiny-wound Skin Appearance) Dry/Scaly -Color (Destiny-wound Skin Appearance) No Abnormality -Temperature (Destiny-wound Skin No Abnormality Appearance) (Pt Warm) -Ulcer Cleansing Rinsed/ Irrigated with Saline -Anesthetic Used 5% Lidocaine Gel,Cetacaine Assessment/Plan Assessment/Plan (1) Non-pressure chronic ulcer of other part of right foot with fat layer exposed: CODE(S): L97.512 - Non-pressure chronic ulcer of other part of right foot with fat layer exposed (2) Neuropathy: CODE(S): G62.9 - Polyneuropathy, unspecified (3) Venous insufficiency (chronic) (peripheral): CODE(S): I87.2 - Venous insufficiency (chronic) (peripheral) (4) Edema, lower extremity: CODE(S): R60.0 - Localized edema PLAN: Plan Patient seen and evaluated Predebridement: 0.1 cm x 0.1 cm x 0.1 cm Ulceration is secondary to trauma during assisted transfer at her facility. Ulceration did not undergo debridement as noted in the clinical panel above. Postdebridement measurement 0.1 cm x 0.1 cm x 0.1 cm with healthy granular tissue. No signs of infection. EpiFix graft #6 applied to the ulceration base 10/22/24. Site integrated well. There is a very small stable eschar at graft site. No signs of infection. Will continue to pad and protect with Band-Aid for next 7 to 10 days. Ulcerative site has improved with reduction in size versus previous visit. She is to continue to elevate lower extremities at all times of rest for edema control. Patient does have neuropathy and bilateral lower extremity edema secondary to previous back surgery and nonambulatory status. Patient does transport with theassistance of motorized wheelchair. Discussed continued protein intake to aid in wound healing. Nael supplementation/boost was also recommended to be continued She has been approved for advanced wound care product, EpiFix. Will continue applications. I did discuss today with her and her daughter possible debridement to the level of bone and removing any prominence of bone underlying her ulceration site as this may be a potential cause of reulceration in addition to her continued edemaof the lower extremity. She states she will think about the procedure now that this has been discussed with family. Discussed signs and symptoms of infection with the patient and Corporate Health Consultant frame bander today. Educated them that if patient experiences increased redness about the ulcerative site that moves along the dorsal foot or up the leg, if she gets purulent drainage from the wound site, increasing foul odor from the wound site, or if she experiences fever greater than 101 degree accompanied by nausea,vomiting, chills that these are signs of a progressing infection and she should report to the ED to receive IV antibiotics and further evaluation. I have discussed potential risks of amputation secondary to depth of the wound and close proximity to bone. She is aware that if infection does set in the digit would likely need to be amputated at the corresponding metatarsal phalangeal joint. The following work up and care recommendations were made: Dressing: Pad and protect with Band-Aid for next 7 to 10 days. Wash: Wash with soap and water Tissue growth optimization: None Offload: Continue wearing surgical shoe to offload dorsal aspect of the right foot Vascular: LEAS performed June 2024 demonstrating no underlying arterial disease. Vascular status not impeding wound healing Edema: Continue wearing compression stockings and elevate lower extremities to aid in edema control Infection: No signs of infection Pain: No pain secondary to neuropathy related to prior back surgery Host factors: Chronic venous insufficiency, chronic bilateral lower extremity edema, nonambulatory status secondary to prior back surgery I answered all the patient's questions. To return to the wound healing center in 1 week or call sooner if the patient has any questions or concerns. 11/05/24 0857 <Electronically signed by Jadon Dolan DPM> Cosigner Signature (if applicable): CC: ~ Signed [facility] Work Phone: [phone]) 846-430603-06-2025 Progress note [facility] [address] [place] [address] Progress Note - Wound Care 11/05/24 0832 MR#: [id number] Acct: [id number] Name: PATRICIA HAWLEY Rep #:[id number] : 1945 79 From: Jadon alvarez DPM PCP: Dr. Wolf Berry MD Status:REG R CR Location: History of Present Illness Date of Service: 11/05/24 Chief Complaint: Ulceration dorsal second digit right foot History of Wound: This is a 79-year-old female who was referred to the wound care center for a nonhealing ulceration of the dorsal aspect of the second digitright foot. Patient states ulceration occurred after 2 aids at the [facility] facility transferred her utilizing a Jareth and bumped her toe against a refrigerator. States she has been going to the foot and ankle Center for continued care with Dr. Worley and they were applying Betadine daily for the last 8 weeks. Patient over that time has failed to progress in wound healing, but also states dressings have not been changed as instructed at her facility. She has followed with vascular surgery with LEAS performed in June 2024 demonstrating adequate perfusion with no evidence of arterial disease. Patient was referred to the wound care center for continued wound healing. She denies N/V/F/chills. Denies pain to the ulcerative site. Denies diabetes. 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 Denies further complaints. Subjective Subjective This 79-year-old female returns to the wound care center today for continued care of the dorsal ulceration to the second digit of the right foot. Accompaniedby frame bander from facility and daughter also present today. She has neuropathy and has no sensation to the foot. Persistent swelling remains to lower extremities. Graft has been left intact to Right foot. [facility]teric/periprosthetic fracture ofthe left hip secondary to falling from a Jareth lift at her facility during transfer. Hip fracture was nonoperable and she was later discharged. States her hip still does hurt. Denies constitutional symptoms. Denies further complaints. Objective Data Objective Data Vital Signs: Vital Signs Temp Pulse Resp BP O2 Flow Rate 97 F L 57 L 18 141/76 H 2 11/05/24 08:09 11/05/24 08:09 11/05/24 08:09 11/05/24 08:09 10/31/24 00:44 Oxygen Flow Rate (L/min) 2 Physical Exam Const alert, oriented x3 and no apparent distress General Appearance: cooperative HEENT normocephalic Eyes General Eye: normal appearance of both eyes Neck General: normal visual inspection Lymph Lymphatic: no lymphadenopathy noted and no lymphedema noted Resp normal respiratory effort Cardio regular rate and regular rhythm Extremity no calf tenderness Extremity Narrative: Right lower extremity: Vascular: DP and PT pulses nonpalpable secondary to edema. CFT is less than 4 seconds to digits. Normal temperature gradient. Hair growth is absent to digits. Neurologic: Diminished sensation secondary to neuropathy post back surgery. Gross sensation intact.Motor function intact. Musculoskeletal: Muscle strength 4 of 5 secondary to prior surgery and nonambulatory status. No pain to palpation of calf. No pain to palpation aboutulcerative site. Decreased range of motion of the ankle joint in dorsiflexion with knee extended without pain or crepitus. Decreased range of motion of the first MTPJ without pain or crepitus. Dermatologic: There is moderate lower extremity edema secondary to her prior back surgery. Skin turgor normal. Ulceration to the dorsal aspect of the second digit overlying the proximal interphalangeal joint demonstrates superficial stable eschar overlying previous site from previous graft product.No erythema,no purulent drainage, no malodor. No signs of infection. Left lower extremity: Vascular: DP and PT pulses nonpalpable secondary to edema. CFT is less than 4 seconds to digits. Normal temperature gradient. Hair growth is absent to digits. Neurologic: Diminished sensation secondary to neuropathy post back surgery. Gross sensation intact.Motor function intact. Musculoskeletal: Muscle strength 4 of 5 secondary to prior surgery and nonambulatory status. No pain to palpation of calf. Decreased range of motion of the ankle joint in dorsiflexion with knee extended without pain or crepitus. Decreased range of motion of the first MTPJ without pain or crepitus. Dermatologic: There is moderate lower extremity edema secondary to her prior back surgery. Skin turgor normal. Skin is mildly xerotic but otherwise unremarkable. Skin no rashes or lesions noted and skin turgor normal Neuro moves all extremities Debridement Note Debridement Note No debridement was completed: No debridement was completed today Post-Debridement Measurements and Additional Note: Post-Debridement Measurements/Treatment ADÁN - Nurse 1 - General Ulcer Assessment Start: 11/05/24 08:08 Freq: Status: Active Protocol: ISRAEL Activity Type Activity Date Activity User E-sign Co-sign Detail Recorded Client Recorded Date Recorded By Document 11/05/24 08:09 DL [id number] 11/05/24 08:18 DL 11/05/24 08:09 - Today's Visit Information Type of service Follow-up Visit (Physician/SHIRT PRESSER ) Arrival Mode Wheelchair Transfer Assistance None Patient Identification Verified (Name & Yes ) Patient Requires Transmission-Based No Precautions Vital Signs Temperature (97.8 F-99.1 F) 97 F L Temperature Source Temporal Pulse Rate (60-100) 57 L Pulse Location Monitor Respiratory Rate (12-18) 18 Respiratory rate source Observation Blood Pressure (90/60-120/80) 141/76 H Blood Pressure Mean (mm Hg) 97 Source Monitor History Since Last Visit- (Skip if this is Patient's initial visit) Have you changed medications since your No last visit? Any new allergies or adverse reactions No Had a fall/change in ADL's that may No increase risk of falls Signs or symptoms of abuse and/or No neglect since last visit Have you been in the hospital since your Yes last visit? Has dressing in place as prescribed Yes Has compression in place as prescribed Yes Has offloadiing in place as prescribed Yes Experienced any changes in pain level or No management Left Footwear Surgical Shoe with pressure relief insole Right Footwear Surgical Shoe with pressure relief insole Pain Scale: 0-10 Numeric Is Patient Pain Free? Yes WC - Nurse 1 - General Ulcer Measurement Start: 11/05/24 08:08 Freq: Status: Active Protocol: Activity Type Activity Date Activity User E-sign Co-sign Detail Recorded Client Recorded Date Recorded By Document 11/05/24 08:09 DL [id number] 11/05/24 08:18 DL 11/05/24 08:09 Wound Center Nurse 1 #4 R 2nd toe -Current Size (cm) - Length 0.1 -Current Size (cm) - Width 0.1 -Current Size (cm) - Depth 0.1 -Total Square Cm 0.01 -Photo Taken Yes -Exudate Amt None Present -Wound Margin Flat & Intact -Granulation Amt Large (67-100%) -Necrosis Amt Small (1-33%) -Necrotic Tissue Type Eschar -Structure Exposed N/A -Texture (Destiny-wound Skin Appearance) Scarring -Moisture (Destiny-wound Skin Appearance) Dry/Scaly -Color (Destiny-wound Skin Appearance) No Abnormality -Temperature (Destiny-wound Skin No Abnormality Appearance) (Pt Warm) -Ulcer Cleansing Rinsed/ Irrigated with Saline -Anesthetic Used 5% Lidocaine Gel,Cetacaine Assessment/Plan Assessment/Plan (1) Non-pressure chronic ulcer of other part of right foot with fat layer exposed: CODE(S): L97.512 - Non-pressure chronic ulcer of other part of right foot with fat layer exposed (2) Neuropathy: CODE(S): G62.9 - Polyneuropathy, unspecified (3) Venous insufficiency (chronic) (peripheral): CODE(S): I87.2 - Venous insufficiency (chronic) (peripheral) (4) Edema, lower extremity: CODE(S): R60.0 - Localized edema PLAN: Plan Patient seen and evaluated Predebridement: 0.1 cm x 0.1 cm x 0.1 cm Ulceration is secondary to trauma during assisted transfer at her facility. Ulceration did not undergo debridement as noted in the clinical panel above. Postdebridement measurement 0.1 cm x 0.1 cm x 0.1 cm with healthy granular tissue. No signs of infection. EpiFix graft #6 applied to the ulceration base 10/22/24. Site integrated well. There is a very small stable eschar atgraft site. No signs of infection. Will continue to pad and protect with Band-Aid for next 7 to 10 days. Ulcerative site has improved with reduction in size versus previous visit. She is to continue to elevate lower extremities at all times of rest for edema control. Patient does have neuropathy and bilateral lower extremity edema secondary to previous back surgeryand nonambulatory status. Patient does transport with theassistance of motorized wheelchair. Discussed continued protein intake to aid in wound healing. Nael supplementation/boost was also recommended to be continued She has been approved for advanced wound care product, EpiFix. Will continue applications. I did discuss today with her and her daughter possible debridement to the level of bone and removing any prominence of bone underlying her ulceration site as this may be a potential cause of reulceration in addition to her continued edemaof the lower extremity. She states she will think about the procedure now that this has been discussed with family. Discussed signs and symptoms of infection with the patient and Corporate Health Consultant frame bander today. Educated them that if patient experiences increased redness about the ulcerative site that moves along the dorsal foot or up the leg, if she gets purulent drainage from the wound site, increasing foul odor from the wound site, or if she experiences fever greater than 101 degree accompanied by nausea,vomiting, chills that these are signs of a progressing infection and she should report to the ED to receive IV antibiotics and further evaluation. I have discussed potential risks of amputation secondary to depth of the wound and close proximity to bone. She is aware that if infection does set in the digit w ould likely need to be amputated at the corresponding metatarsal phalangeal joint. The following work up and care recommendations were made: Dressing: Pad and protect with Band-Aid for next 7 to 10 days. Wash: Wash with soap and water Tissue growth optimization: None Offload: Continue wearing surgical shoe to offload dorsal aspect of the right foot Vascular: LEAS performed June 2024 demonstrating no underlying arterial disease. Vascular statusnot impeding wound healing Edema: Continue wearing compression stockings and elevate lower extremities to aid in edema control Infection: No signs of infection Pain: No pain secondary to neuropathy related to prior back surgery Host factors: Chronic venous insufficiency, chronic bilateral lower extremity edema, nonambulatory status secondary to prior back surgery I answered all the patient's questions. To return to the wound healing center in 1 week or call sooner if the patient has any questions or concerns. 11/05/24 0857 Cosigner Signature (if applicable): CC: ~ Signed [facility]02-25-2025 [facility]02-24-2025 [facility]12-19-2024 Evaluation note* Diagnosis Onset Date Resolution Status Admit Date Bilateral edema of lower extremity inactive August 20, 024 8:00am Neuropathy inactive August 20, 2024 8:00am Non-pressure chronic ulcer o f other part of right foot with fat layer exposed inactive August 20, 2024 8:00am Venous insufficiency (chroni c) (peripheral) inactive August 20, 024 8:00am Bilateral edema of lower extremity inactive October 01 8:00am Neuropathy inactive October 01, 2024 8:00am Non-pressure chronic ulcer o f other part of right foot with fat layer exposed inactive October 01, 2024 8:00am Venous insufficiency (chroni c) (peripheral) inactive October 01 8:00am Bilateral edema of lower extremity inactive October 22, 025 8:00am Neuropathy inactive October 22, 2024 8:00am Non-pressure chronic ulcer o f other part of right foot with fat layer exposed inactive October 22, 2024 8:00am Venous insufficiency (chroni c) (peripheral) inactive October 22, 025 8:00am Bilateral edema of lower extremity inactive October 25, 025 11:21pm Neuropathy inactive October 25, 2024 11:21pm Non-pressure chronic ulcer o f other part of right foot with fat layer exposed inactive October 25, 2024 11:21pm 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 inactive Fe bruary 2024 11:21pm Venous insufficiency (chroni c) (peripheral) inactive October 25, 025 11:21pm Edema, lower extremity inactive [facility] 2024 8:00am Neuropathy inactive November 26 8:00am Non-pressure chronic ulcer o f other part of right foot with fat layer exposed inactive November 26 8:00am Venous insufficiency (chroni c) (peripheral) inactive November 26, 2024 8:00am [facility] Work Phone: 1(844) 858-333307-16-2024 [facility]07-16-2024 [facility]01-23-2024 Discharge summary Author Mary Cobos [facility] September 24, 2023 11:57am Note Date/Time September 24, 2023 1 1:57am [facility] Medical Records Department [address] [place] [address] Transfer to [facility] MR#: [id number] Acct: [id number] Name: PATRICIA HAWLEY Rep #:[id number] : 1945 78 From: Mary Cobos MD PCP: Dr. Wolf Berry MD Status:ADM I N Certification of patient admission REQUIRED AT TIME OF ADMISSION. I CERTIFY THAT POST-HOSPITAL ECF SERVICES ARE REQUIRED TO BE GIVEN ON AN IN-PATIENT BASIS BECAUSE OF THE ABOVE NAMED PATIENT'S NEED FOR SNF CARE ON A CONTINUING BASIS FOR THE CONDITION(S) FOR WHICH HE/SHE WAS RECEIVING IN-PATIENT HOSPITAL SERVICES PRIOR TO HIS/HER TRANSFER TO THE [facility]. 09/24/23 1157<Electronically signed by Mary Cobos MD> Diet Diet Order/Speech Therapy: 09/22/23 02:37 Diet: Regular - No Added Salt Is pt able to select menu?: Yes Routine Orders/Code Status Enema Type: Fleetz Enema Frequency: Daily PRN Suppository Type: Dulcolax 10mg Suppository Frequency: Daily PRN O2 Frequency: PRN Keep PO Greater than or Equal to (%): 90 Therapies Weight Bearing: Weight bearing as tolerated Physical Therapy: Eval and Treat Occupational Therapy: Eval and Treat Problem/Diagnosis (1) Acute hypoxic respiratory failure: Status: Acute Code(s): J96.01 - Acute respiratory failure with hypoxia (2) COPD exacerbation: Status: Chronic Code(s): J44.1 - Chronic obstructive pulmonary disease with (acute) exacerbation (3) Multifocal pneumonia: Status: Acute Code(s): J18.9 - Pneumonia, unspecified organism (4) Essential (primary) hypertension: Status: Acute Code(s): I10 - Essential (primary) hypertension Plan #Hypoxia due to multifocal pneumonia and COPD exacerbation * on breathing treatment with bronchodilators * n IV ceftriaxone and azithromycin * CTA chest showed no evidence of PE * on IV solumedrol * urine for Strep and Legionella are negative. Sputum culture negative * blood cultures growing Staph epidermidis in 1/2 samples. PCR test also positiv for Staph epidermidis; this is thought to be due to a skin contaminant. * #ELevated D dimer * CT of the chest was negative for PE. Patient also was started on therapeutic Lovenox also waiting for duplex of lower extremities rule out DVT. * #Hypertension: on lisinopril and metoprolol #Hyperlipidemia: on statin #Peripheral vascular disease: #Depression and anxiety: on buspirone and duloxetine as well as sertraline DVT prophylaxis: on therapeutic lovenox pending Duplex of LEs to rule out DVT Allergies/Procedures Done in Hospital Allergies morphine Allergy (Unknown, Verified 09/21/23 19:44) unknown amoxicillin [From Augmentin] Adverse Reaction (Verified 09/21/23 19:44) Nausea/Vom/Diarrhea clavulanic acid [From Augmentin] Adverse Reaction (Verified 09/21/23 19:44) Nausea/Vom/Diarrhea nitrofurantoin macrocrystalline [From Macrodantin] Adverse Reaction (Verified 09/21/23 19:44) Vomiting sulfamethoxazole [From Bactrim] Adverse Reaction (Verified 09/21/23 19:44) Nausea/Vom/Diarrhea trimethoprim [From Bactrim] Adverse Reaction (Verified 09/21/23 19:44) Nausea/Vom/Diarrhea Procedures: None Type of Care/Length of Stay Estimated LOS: Convalescent Care Less Than 30 days Type of Care Needed: Skilled Rehab Potential: Fair Prognosis: Fair Additional Orders/Day of Discharge Day of Discharge: 09/24/23 Dietary and Speech Recommendations Dietitian Recommendations/Changes: continue regular no added salt diet as tolerated; ONS w/ medpass if PO intake at meals declines further Discharge Plan Admission Admit Date/Time: 09/21/23 23:54 Primary Reason for Your Visit: COPD exacerbation Attending Provider: Mary Cobos Primary Care Provider: Wolf Berry Consulting Providers: Luna Dobbs; Germain Pettit Instructions Patient Instructions: COPD Meds Discharge Orders/Prescriptions Prescriptions: New prednisone 20 mg tablet 40 mg PO DAILY Qty: 10 0RF Continued pravastatin 40 mg tablet 40 mg PO QHS duloxetine 60 mg capsule,delayed release(DR/EC) 60 mg PO DAILY lisinopril 10 mg tablet 10 mg PO DAILY metoprolol succinate 50 mg tablet extended release 24 hr 50 mg PO DAILY fluticasone furoate-vilanterol [Breo Ellipta] 100-25 mcg/dose blister with device 1 inh inhalation DAILY buspirone 5 mg tablet 5 mg PO TID buspirone 5 mg tablet 5 mg PO DAILY estradiol 0.01 % (0.1 mg/gram) cream 1 appful vaginal MOWEFR naloxone 4 mg/actuation spray,non-aerosol 1 spray intranasal Q2-3M PRN (Reason: OVERDOSE) Rx Instructions: spray 1 dose into ONE nostril; alternate nostrils w each dose until help arrives pomegranate fruit extract 250 mg capsule 500 mg PO DINNER cholecalciferol (vitamin D3) 100 mcg (4,000 unit) tablet 100 mcg PO DAILY albuterol sulfate 90 mcg/actuation HFA aerosol inhaler 2 inh inhalation Q4H PRN (Reason: SOB/WHEEZING) oxycodone-acetaminophen [Percocet] 5-325 mg tablet 1 tab PO TID PRN (Reason: pain) Centrum Silver 0.4 mg-300 mcg- 250 mcg tablet 1 tab PO DAILY polyethylene glycol 3350 17 gram powder in packet 17 g PO DAILY PRN (Reason: CONSTIPATION) methenamine hippurate 1 GM tablet 1 g PO BID Hold Instructions: Resume on 09/27/22. Rx Instructions: this can be used ongoing for prevention of uti. gabapentin 300 mg capsule 300 mg PO TID ondansetron HCl 4 mg tablet 4 mg PO Q8H PRN (Reason: Nausea) sennosides-docusate sodium 8.6-50 mg tablet 1 tab PO BID PRN (Reason: CONSTIPATION) albuterol sulfate 2.5 mg /3 mL (0.083 %) Solution For Nebulization 2.5 mg INHALATION Q4H PRN (Reason: SOB/WHEEZING) sertraline 100 mg tablet 200 mg PO DAILY acetaminophen 500 mg Tablet 500 mg PO Q6H PRN (Reason: Pain) guaifenesin [Siltussin SA] 100 mg/5 mL Liquid 200 mg PO Q6H PRN (Reason: COUGH/SORE THROAT) melatonin 5 mg Tablet 5 mg PO QHS Proheal 30 ml PO/SL BID ULTRAFLORA IMMUNE HEALTH 170 mg PO/SL DAILY furosemide [Lasix] 40 mg tablet 40 mg PO DAILY hydrocortisone [Preparation H Hydrocortisone] 1 % Cream 1 applic TOPICAL TID PRN (Reason: Hemorrhoids) levofloxacin 500 mg tablet 500 mg PO DAILY Qty: 5 0RF methadone 10 MG tablet 10 mg PO QHS 3 Days Qty: 3 0RF Biofreeze (menthol) 4 % gel 1 applic topical BID PRN (Reason: pain) Rx Instructions: apply to shoulder and lower back polyethylene glycol 3350 [ClearLax] 17 gram/dose powder 17 g PO DAILY PRN (Reason: constipation) Discontinued prednisone 20 mg tablet 40 mg PO DAILY 5 Days Qty: 10 0RF Referrals / Follow Up: Wolf Berry MD [Primary Care Provider] - Within 1 Week Disposition Disposition (needs filled in before D/C Order can be placed): Custodial Facility 09/24/23 1157 <Electronically signed by Mary Cobos MD> Cosigner Signature (if applicable): CC: Dr. Luna Dobbs DO; Dr. Germain Pettit MD; Dr. Wolf Berry MD~ [facility] Work Phone: 1(553) 660-288701-22-2024 Progress note Author [facility] September 23, 2023 4:26pm Note Date/Time September 23, 2023 2 :02pm [facility] Medical Records Department [address] [place] [id number] Progress Note 09/23/23 1400 MR#: [id number] Acct: [id number] Name: PATRICIA HAWLEY Rep #:[id number] : 1945 78 From: Mary Cobos MD PCP: Dr. Wolf Berry MD Status:ADM I N Location: [place] [address] Subjective Subjective Patient seen and examined. She had no active complaints. She feels her breathingis improving. She denied any chest pain, palpitations, dizziness, nausea, vomiting or any other symptoms. Review of systems is otherwise negative. Objective Data Objective Data Vital Signs: Vital Signs Temp Pulse Resp BP Pulse Ox O2 Del Method O2 Flow Rate 98.1 F 88 20 H 126/99 H 95 Nasal Cannula 2 09/23/23 09:24 09/23/23 12:58 09/23/23 12:58 09/23/23 09:30 09/23/23 09:24 09/23/23 09:43 09/23/23 09:43 FiO2 40 09/21/23 22:38 Oxygen Flow Rate (L/min) 2 Oxygen Delivery Method Nasal Cannula Weight: 207 lb 7.28 oz Body Mass Index (BMI) 40.5 Intake & Output: Intake and Output for Last 24 Hours 09/21/23 09/22/23 09/23/23 23:59 23:59 23:59 Intake Total 2355 / 2355 2365.00 / 2365.00 Output Total 2024 1150 / 1150 Balance 330 / 330 1215.00 / 1215.00 Lab / Micro Data 09/23/23 04:10 09/23/23 04:10 Labs: Laboratory Results - last 24 hr 09/23/23 04:10: WBC 10.1, RBC 3.33 L, Hgb 10.1 L, Hct 32.3 L, MCV 97.0, MCH 30.3, MCHC 31.3 L, RDW Std Deviation 46.6 H, RDW Coeff of Zach 13.1, Plt Count 340, MPV 10.1, Immature Gran % (Auto) 1.100 H, Neut % (Auto) 86.0 H, Lymph % (Auto) 8.5 L, Warrick % (Auto) 4.3, Eos % (Auto) 0.0, Baso % (Auto) 0.1, Absolute Neuts (auto) 8.7 H, Absolute Lymphs (auto) 0.86, Nucleated RBC % 0, Sodium 137, Potassium 3.5, Chloride 104, Carbon Dioxide 24.0, Anion Gap 9, BUN 34 H, Creatinine 1.18 H, Estim Creat Clear Calc 40.28, Est GFR (MDRD) Af Amer 57 L, Est GFR (MDRD) Non-Af 47 L, BUN/Creatinine Ratio 28.8 H, Glucose 154 H, Calcium 9.4 Micro: Microbiology 09/21/23 21:35 Blood Culture (Wb) - Left Hand Bacteria Detection (PCR) - Final Staphylococcus epidermidis mecA Resistance Marker 09/21/23 21:35 Blood Culture (Wb) - Left Hand Blood Culture - Preliminary Staphylococcus epidermidis 09/21/23 20:50 Mucosa - Nasopharyngeal SARS-CoV-2, Influenza & RSV (PCR) - Final Physical Exam Const alert, oriented x3 and no apparent distress General Appearance: cooperative HEENT normocephalic, head/scalp atraumatic, moist oral mucous membranes and oropharynxnormal Eyes PERRL and EOMs intact bilaterally Neck no lymphadenopathy and supple Lymph Lymphatic: no lymphadenopathy noted and no lymphedema noted Resp Resp Narrative: moderately diminished breath sounds bibasally, no wheezes or crackles. On 2L of oxygen by nasal canula Cardio regular rate, regular rhythm, S1 normal heart sound, S2 normal heart sound and no murmurs GI normal to inspection, nondistended, normoactive bowel sounds, soft to palpation,non-tender and non-distended Extremity normal capillary refill, no clubbing, cyanosis or edema and no calf tenderness General Extremity: no tenderness to palpation of joints or extremities Skin General Skin Exam: no breakdown Neuro CN's II-XII intact bilaterally, no focal motor deficits, no sensory deficits noted and deep tendon reflexes 2+ bilaterally Motor Exam: strength 5/5 throughout and general weakness Psych thought process normal, cooperative and affect normal Appearance: appropriate Assessment & Plan Assessment/Plan (1) Acute hypoxic respiratory failure: (2) COPD exacerbation: (3) Multifocal pneumonia: (4) Essential (primary) hypertension: PLAN: Plan #Hypoxia due to multifocal pneumonia and COPD exacerbation * on breathing treatment with bronchodilators * n IV ceftriaxone and azithromycin * CTA chest showed no evidence of PE * on IV solumedrol * urine for Strep and Legionella are negative. Sputum culture negative * blood cultures growing Staph epidermidis in 1/2 samples. PCR test also positiv for Staph epidermidis; this is thought to be due to a skin contaminant. * #ELevated D dimer * CT of the chest was negative for PE. Patient also was started on therapeutic Lovenox also waiting for duplex of lower extremities rule out DVT. * #Hypertension: on lisinopril and metoprolol #Hyperlipidemia: on statin #Peripheral vascular disease: #Depression and anxiety: on buspirone and duloxetine as well as sertraline DVT prophylaxis: on therapeutic lovenox pending Duplex of LEs to rule out DVT Charges/Coding Visit Charges Inpatient E&M: 01308 Subs Hosp L2 09/23/23 7340 <Electronically signed by Mary Cobos MD> Mary Cobos MD Cosigner Signature (if applicable): CC: ~ Signed [facility] Work Phone: 1(702) 669-218001-21-2024 Progress note Author Germain Pettit [facility] September 22, 2023 9:49am Note Date/Time September 22, 2023 9 :10am [facility] Medical Records Department [address] [place] [address] Progress Note - Hospitalist 09/22/23 0907 MR#: [id number] Acct: [id number] Name: PATRICIA HAWLEY Rep #:[id number] : 1945 78 From: Germain thomas MD PCP: Dr. Wolf Berry MD Status:ADM I N Location: [place] [address] Subjective Subjective Doing well, no issues overnight. Maintaining her oxygen saturations on 2 L nasal cannula Objective Data Objective Data Vital Signs: Vital Signs Temp Pulse Resp BP Pulse Ox O2 Del Method O2 Flow Rate 97.3 F L 85 16 159/96 H 97 Nasal Cannula 2 09/22/23 08:20 09/22/23 08:27 09/22/23 08:20 09/22/23 08:27 09/22/23 08:20 09/22/23 08:20 09/22/23 08:20 FiO2 40 09/21/23 22:38 Oxygen Flow Rate (L/min) 2 Oxygen Delivery Method Nasal Cannula Weight: 206 lb 12.697 oz Body Mass Index (BMI) 40.4 Intake & Output: Intake and Output for Last 24 Hours 09/21/23 09/22/23 09/23/23 03:59 03:59 03:59 Intake Total 305 / 305 Output Total 450 / 450 Balance 305 / 305 -450 / -450 Lab / Micro Data 09/22/23 06:50 09/22/23 06:50 Labs: Laboratory Results - last 24 hr 09/21/23 20:25: WBC 15.8 H, RBC 3.87 L, Hgb 11.7 L, Hct 37.5, MCV 96.9, MCH 30.2, MCHC 31.2 L, RDW Std Deviation 45.1 H, RDW Coeff of Zach 12.8, Plt Count 279, MPV 10.3, Immature Gran % (Auto) 0.500, Neut % (Auto) 75.8 H, Lymph % (Auto) 13.1 L, Warrick % (Auto) 9.8, Eos % (Auto) 0.4, Baso % (Auto) 0.4, Absolute Neuts (auto) 11.9 H, Absolute Lymphs (auto) 2.07, Nucleated RBC % 0, Differential Comment SCANNED, Diff Path Review December, Sodium 133 L, Potassium4.0, Chloride 104, Carbon Dioxide 21.0, Anion Gap 8, BUN 30 H, Creatinine 1.21 H, Estim Creat Clear Calc 41.38, Est GFR (MDRD) Af Amer 55 L, Est GFR (MDRD) Non-Af 46 L, BUN/Creatinine Ratio 24.8 H, Glucose 129 H, Calcium 9.6, Troponin I High Sens 30 09/21/23 20:40: Lactic Acid 1.1 09/21/23 23:21: D-Dimer Quant (PE/DVT) 5.02 H* 09/22/23 06:50: WBC 11.3 H, RBC 3.62 L, Hgb 11.1 L, Hct 35.2 L, MCV 97.2, MCH 30.7, MCHC 31.5 L, RDW Std Deviation 46.1 H, RDW Coeff of Zach 12.8, Plt Count 309, MPV 10.6, Immature Gran % (Auto) 0.400, Neut % (Auto) 87.0 H, Lymph % (Auto) 9.6 L, Warrick % (Auto) 2.8, Eos % (Auto) 0.0, Baso % (Auto) 0.2, Absolute Neuts (auto) 9.8 H, Absolute Lymphs (auto) 1.08, Nucleated RBC % 0, Sodium 135 L, Potassium 3.6, Chloride 105, Carbon Dioxide 21.0, Anion Gap 9, BUN 30 H, Creatinine 1.16 H, Estim Creat Clear Calc 40.90, Est GFR (MDRD) Af Amer 58 L, Est GFR (MDRD) Non-Af 48 L, BUN/Creatinine Ratio 25.9 H, Glucose 162 H, Calcium 10.2 H, Phosphorus 3.1, Magnesium 2.2, Total Bilirubin 0.50, AST 18, ALT 23, Alkaline Phosphatase 127 H, Total Protein 7.6, Albumin 2.5 L, Globulin 5.1 H, Albumin/Globulin Ratio 0.5 L, TSH 0.95 Micro: Microbiology 09/21/23 20:50 Mucosa - Nasopharyngeal SARS-CoV-2, Influenza & RSV (PCR) - Final ABG Data ABG results: ABG 09/22/23 03:28 Specimen Type ART Sample Site L Radial pH 7.33 L Bicarbonate Actual 21.7 L Total CO2 23 Base Excess -4 L O2 Saturation 97 O2 % 3.0 ABG pCO2 41.4 ABG pO2 101 H Anson Test Positive O2 Delivery Device Cannula Vent Mode Not entered Radiography Diagnostic Testing: Radiology Impression Chest X-Ray 09/21/23 21:07 IMPRESSION: Mild bibasilar discoid atelectasis and subsegmental atelectasis in the right upper lobe Electronically Signed: Jan Pérez MD at 21:18 EST , Chest CTA 09/22/23 00:37 IMPRESSION: 1. No evidence of acute pulmonary embolism. 2. Airspace consolidation at the posterior medial right lung base, concerning for consolidative pneumonia with additional multifocal nodular infiltrates noted throughout both lungs. 3. Reactive mediastinal and hilar lymph nodes. 4. Moderate-sized hiatal hernia. Electronically Signed: Dean Wilkins MD at 1:42 EST , Physical Exam Narrative General: Alert, Oriented x3, Cooperative, No apparent distress HEENT: Atraumatic, PERRLA, EOMI, Normocephalic Oral: Moist Mucosa Neck: Supple, No JVD Lungs: Diminished, Normal air movement, No rhonchi, No wheeze, No rales Cardiovascular: Regular rate, Regular Rhythm, Normal S1, Normal S2, No murmurs Abdomen: Soft, Non Tender, Non-Distended, No Hepato-splenomegaly Extremities: No edema, Capillary Refill Less than 3 Seconds Skin: No rashes, No breakdown Musculoskeletal: No Tenderness to Palpation of Joints or Extremities Neurological: Cranial nerves II-XII grossly intact, Motor Exam 5/5 strength throughout, Sensory exam intact to light touch and pain Psych/Mental Status: Normal Affect, Appropriate Assessment & Plan Assessment/Plan (1) Multifocal pneumonia: (2) COPD exacerbation: (3) Acute hypoxic respiratory failure: (4) D-dimer, elevated: PLAN: Plan 1. Multifocal pneumonia with COPD exacerbation ? Continue with broad-spectrum antibiotics, continue with azithromycin and Rocephin ? She did have Lu D-dimer so CTA of the chest was obtained which did not demonstrate PE however a Doppler is being done as well, no lower extremity edemahowever she was placed on full dose anticoagulation ? Continue with steroids and breathing treatments ? Can take out of precautions, she had a respiratory panel few days ago that were negative for virus 2. HTN/HLD/PVD/morbid obesity ? Blood pressures are stable ? Can resume with her home blood pressure medications ? We will monitor make adjustments as necessary ? Continue with statin 3. Depression/anxiety ? Stable ? Continue with her home medications DVT: Therapeutic Lovenox Charges/Coding Visit Charges Inpatient E&M: 53289 Subs Hosp L2 09/22/23 0949 <Electronically signed by Germain Pettit MD> Cosigner Signature (if applicable): CC: ~ Signed [facility] Work Phone: 1(954) 451-235101-21-2024 History and physical note Author Luna Gray [facility] September 22, 2023 5:21am Note Date/Time September 21, 2023 1 1:53pm [facility] Medical Records Department [address] [place] [id number] H&P Exam - Hospitalist 09/21/23 2326 MR#: [id number] Acct: [id number] Name: PATRICIA HAWLEY Rep #:[id number] : 1945 78 From: Luna Christie DO PCP: Dr. Wolf Berry MD Status:ADM I N Location: [place] [address] HPI - General General Date of Admission: 09/21/23 Date of Service: 09/21/23 Chief Complaint: Shortness of breath and fever with flu-like symptoms. HPI Narrative PATRICIA HAWLEY, is a 78 F static with a past medical history of essential hypertension, hyperlipidemia, morbid obesity; with BMI of 41.4 this admission, history of tobacco abuse; with subsequent COPD, chronic hypoxic respiratory failure on 2 L NC continuously at baseline, peripheral vascular disease; with history of non- pressure chronic ulcer of the right and left lower extremities, chronic venous insufficiency of the right lower extremity, history of right footdrop, history of MRSA, history of vertebral osteomyelitis with T12 destruction (2019), history of nonischemic cardiomyopathy, history of hip replacement, osteoarthritis and degenerative disc disease; with chronic back pain on methadone 10 mg p.o. nightly and Percocet 3 times daily as needed (with listed allergy to morphine), hemorrhoids, depression with anxiety and DNR-CCA CODE STATUS; with no intubation who presents to [facility] ER complaining of shortness of breath and fever with chills and flu- like symptoms. Ms. Hawley reports her symptoms began approximately 1 week prior to admission with a gradual onset of malaise, fatigue, decreased appetite with fever and shortness of breath with some other residents at the [facility] testing positivefor COVID-19. She also admits to nausea and vomiting with bilious emesis and a cough that is nonproductive. In the ER she was noted to have a fever of 100.4 ?F present on admission along with leukocytosis of 15.8 present on admission with clinical evidence of acute exacerbation of COPD complicated by acute hypoxic respiratory failure requiring BiPAP with a chest x-ray that reveals atelectasis but no obvious infiltrate and a negative viral respiratory panel marvin critically elevated d-dimer of 5.02 present on admission and she was then admitted to the PCU for ongoing care for stay that is expected to be greater than 48 hours. [facility] Medical History Abnormal CT of thoracic spine Abnormal spinal diagnostic imaging Anxiety Chronic back pain Chronic obstructive pulmonary disease COPD (chronic obstructive pulmonary disease) DDD (degenerative disc disease) Depression Essential (primary) hypertension Fatigue Foot drop, right Hemorrhoids History of COPD History of hypertension Hyperlipidemia Malnutrition MRSA (methicillin resistant staph aureus) culture positive Non-ischemic cardiomyopathy Non-pressure chronic ulcer of right lower leg with fat layer exposed PVD (peripheral vascular disease) Soft tissue mass Stage III pressure ulcer of right ankle Venous insufficiency of right leg Venous ulcer of left lower extremity without varicose veins Vertebral osteomyelitis Vitamin D deficiency Home Medications pravastatin 40 mg tablet 40 mg PO QHS CHOLESTEROL 01/17/18 [History Last Taken 09/19/22] methenamine hippurate 1 gram tablet 1 g PO BID URINARY 04/12/20 [History Last Taken 09/20/22] duloxetine 60 mg capsule,delayed release 60 mg PO DAILY 06/07/20 [History Last Taken 09/20/22] lisinopril 10 mg tablet 10 mg PO DAILY BP 06/07/20 [History Last Taken 09/20/22] metoprolol succinate 50 mg tablet,extended release 24 hr 50 mg PO DAILY HEART 06/07/20 [History Last Taken 09/20/22] fluticasone furoate 100 mcg-vilanterol 25 mcg/dose inhalation powder (Breo Ellipta) 1 inh inhalation DAILY 08/03/21 [History Last Taken 09/20/22] gabapentin 300 mg capsule 300 mg PO TID NERVE 08/03/21 [History Last Taken 09/20/22] buspirone 5 mg tablet 5 mg PO DAILY DEPRESSION 02/13/22 [History Last Taken 09/20/22] cholecalciferol (vitamin D3) 100 mcg (4,000 unit) tablet 100 mcg PO DAILY SUPPLEMENT 02/13/22 [History Last Taken 09/20/22] estradiol 0.01% (0.1 mg/gram) vaginal cream 1 appful vaginal MOWEFR UTI 02/13/22[History Last Taken 09/19/22] naloxone 4 mg/actuation nasal spray 1 spray intranasal Q2-3M PRN OVERDOSE 02/13/22 [History Last Taken Unknown] ondansetron HCl 4 mg tablet 4 mg PO Q8H PRN Nausea 02/13/22 [History Last Taken Unknown] polyethylene glycol 3350 17 gram oral powder packet 17 g PO DAILY PRN CONSTIPATION 02/13/22 [History Last Taken Unknown] pomegranate fruit extract 250 mg capsule 500 mg PO DINNER SUPPLEMENT 02/13/22 [History Last Taken 09/19/22] sennosides 8.6 mg-docusate sodium 50 mg tablet 1 tab PO BID PRN CONSTIPATION 02/13/22 [History Last Taken 09/20/22] jhslpeac-nsu-lbohm acid 0.4 mg-lycopene 300 mcg-lutein 250 mcg tablet (Centrum Silver) 1 tab PO DAILY 06/14/22 [History Last Taken 09/20/22] albuterol sulfate 90 mcg/actuation aerosol inhaler 2 inh inhalation Q4H PRN SOB/WHEEZING 08/15/22 [History Last Taken Unknown] Proheal 30 ml PO/SL BID 09/20/22 [History Last Taken 09/20/22] ULTRAFLORA IMMUNE HEALTH 170 mg PO/SL DAILY GUT HEALTH 09/20/22 [History Last Taken 09/19/22] acetaminophen 500 mg tablet 500 mg PO Q6H PRN Pain 09/20/22 [History Last Taken 09/17/22] albuterol sulfate 2.5 mg/3 mL (0.083 %) solution for nebulization 2.5 mg inhalation Q4H PRN SOB/WHEEZING 09/20/22 [History Last Taken 09/20/22] furosemide 40 mg tablet (Lasix) 40 mg PO DAILY EDEMA/SOB 09/20/22 [History Last Taken Unknown] guaifenesin 100 mg/5 mL oral liquid (Siltussin SA) 200 mg PO Q6H PRN COUGH/SORE THROAT 09/20/22 [History Last Taken 09/20/22] melatonin 5 mg tablet 5 mg PO QHS SLEEP 09/20/22 [History Last Taken 09/19/22] sertraline 100 mg tablet 200 mg PO DAILY DEPRESSION 09/20/22 [History Last Taken 09/20/22] hydrocortisone 1 % topical cream (Preparation H Hydrocortisone) 1 applic topicalTID PRN Hemorrhoids 09/21/22 [History Last Taken Unknown] levofloxacin 500 mg tablet 500 mg PO DAILY #5 tabs 09/22/22 [Rx Last Taken Unknown] methadone 10 mg tablet 10 mg PO QHS pain 3 days #3 tabs 09/22/22 [Rx Last Taken Unknown] prednisone 20 mg tablet 40 mg (2 x 20 mg) PO DAILY 5 days #10 tabs 09/22/22 [Rx Last Taken Unknown] buspirone 5 mg tablet 5 mg PO TID 03/14/23 [History Last Taken Unknown] oxycodone-acetaminophen 5 mg-325 mg tablet (Percocet) 1 tab PO TID PRN pain 03/14/23 [History Last Taken Unknown] menthol 4 % topical gel (Biofreeze (menthol)) 1 applic topical BID PRN pain 09/21/23 [History Last Taken Unknown] polyethylene glycol 3350 17 gram/dose oral powder (ClearLax) 17 g PO DAILY PRN constipation 09/21/23 [History Last Taken Unknown] Allergy/AdvReac Type Severity Reaction Status Date / Time morphine Allergy Unknown unknown Verified 09/21/23 19:44 amoxicillin [From Augmentin] AdvReac Nausea/Vom/ Verified 09/21/23 19:44 Diarrhea clavulanic acid AdvReac Nausea/Vom/ Verified 09/21/23 19:44 [From Augmentin] Diarrhea nitrofurantoin AdvReac Vomiting Verified 09/21/23 19:44 macrocrystalline [From Macrodantin] sulfamethoxazole AdvReac Nausea/Vom/ Verified 09/21/23 19:44 [From Bactrim] Diarrhea trimethoprim [From Bactrim] AdvReac Nausea/Vom/ Verified 09/21/23 19:44 Diarrhea Family History Father Hypertension Mother Diabetes Hypertension Brother Diabetes Brother Cancer Sister Hypertension Surgical History History of hip replacement History of hysterectomy History of incisional hernia repair Hx of repair of rotator cuff Social History Smoking Status: Never smoker alcohol intake: never substance use type: does not use caffeine: Yes Type: coffee Number of servings: 2 what type of physical activity do you participate in: none additional social history: Lives at [facility] Narrative Review of systems: General: Patient admits to fevers, chills and malaise. HENT: Denies headache, denies stuffy nose, denies sore throat EYES: Denies changes in vision or discharge from eyes. Resp: Patient admits to dyspnea on exertion that progressed to shortness of breath at rest with nonproductive cough. Cardiac: Patient admits to chest pain that is worse with deep breathing and cough but denies palpitations. GI: Denies abdominal pain, denies changes in bowel, had some nausea and vomitingwith bilious emesis. : Denies changes in urination Extremity: Patient has chronic venous stasis in both lower extremities. Musculoskeletal: Feels somewhat generally weak and unwell but denies arthralgiasor myalgias. Neuro: Patient admits to generalized weakness but denies any numbness/tingling, headache or focal neurologic deficits. Heme: Denies any bleeding or bruising Skin: Denies rashes Psychiatric: No complaints voiced related to uncontrolled depression or anxiety. Endocrine: No polyuria, polyphagia or polydipsia. The rest of the 14 point ROS was negative except for positives in HPI. Vital Signs Vital Signs Vital Signs: 09/21/23 19:44 09/21/23 19:50 09/21/23 20:12 Temperature 100.4 F H 100.4 F H Temperature Source Temporal Temporal Pulse Rate 102 H 103 H 106 H Respiratory Rate 27 H 23 H 26 H Respiratory Effort Respiratory Pattern Tachypnea Blood Pressure 180/92 H 153/95 H Blood Pressure Mean 121 114 Pulse Ox 96 97 Oxygen Delivery Method Nasal Cannula Nasal Cannula Oxygen Flow Rate (L/min) 2 2 Fraction of Inspired Oxygen (FIO2) 09/21/23 20:12 09/21/23 20:50 09/21/23 20:50 Temperature 99.4 F H Temperature Source Temporal Pulse Rate 108 H Respiratory Rate 20 H Respiratory Effort Respiratory Pattern Blood Pressure 141/98 H Blood Pressure Mean 112 Pulse Ox 94 95 Oxygen Delivery Method Nasal Cannula Bi-pap Bi-pap Oxygen Flow Rate (L/min) 2 Fraction of Inspired Oxygen (FIO2) 40 40 09/21/23 20:53 09/21/23 20:50 09/21/23 21:00 Temperature 99.4 F H Temperature Source Temporal Pulse Rate 106 H 102 H Respiratory Rate 35 H 97 H Respiratory Effort Short of Breath Respiratory Pattern Tachypnea Blood Pressure 94/63 Blood Pressure Mean 73 Pulse Ox 96 24 Oxygen Delivery Method Bi-pap Bi-pap Oxygen Flow Rate (L/min) Fraction of Inspired Oxygen (FIO2) 40 35 40 09/21/23 22:00 09/21/23 22:30 09/21/23 22:38 Temperature 99.2 F H Temperature Source Axillary Pulse Rate 102 H 98 Respiratory Rate 17 18 Respiratory Effort Respiratory Pattern Normal Blood Pressure 105/83 H 137/108 H Blood Pressure Mean 90 117 Pulse Ox 92 93 93 Oxygen Delivery Method Bi-pap Bi-pap Oxygen Flow Rate (L/min) Fraction of Inspired Oxygen (FIO2) 40 35 40 Weight Weight: 218 lb 14.704 oz Body Mass Index (BMI) 41.3 Physical Exam Const alert and oriented x3 Constitutional Narrative: Patient appears comfortable on BiPAP. General Appearance: cooperative HEENT normocephalic, head/scalp atraumatic, hearing grossly normal bilaterally, moist oral mucous membranes and oropharynx normal Eyes PERRL, EOMs intact bilaterally and conjunctivae normal Neck no lymphadenopathy and supple Resp Resp Narrative: Decreased breath sounds throughout with mildly increased work of breathing and scattered wheezing. Auscultation: wheezes Cardio regular rate and regular rhythm GI normal to inspection, nondistended, normoactive bowel sounds, soft to palpation,non-tender and non-distended GI Narrative: Morbidly obese. Extremity Extremity Narrative: Patient has chronic venous stasis changes in both lower extremities. Skin Skin Narrative: Patient has no evidence of rash or abscess at this time. Neuro oriented x3, CN's II-XII intact bilaterally, moves all extremities and no focal motor deficits Sensorium / Orientation: awake, alert, oriented to person, oriented to place andoriented to time Speech: speech normal Motor Exam: strength 5/5 throughout Psych Mood & Affect: anxious Results Medical Records Data Attestation: I reviewed the patient's medical records Lab / Micro Data Attestation: I reviewed the patient's lab results. 09/21/23 20:25 09/21/23 20:25 Labs: Laboratory Results - last 24 hr 09/21/23 20:25: WBC 15.8 H, RBC 3.87 L, Hgb 11.7 L, Hct 37.5, MCV 96.9, MCH 30.2, MCHC 31.2 L, RDW Std Deviation 45.1 H, RDW Coeff of Zach 12.8, Plt Count 279, MPV 10.3, Immature Gran % (Auto) 0.500, Neut % (Auto) 75.8 H, Lymph % (Auto) 13.1 L, Warrick % (Auto) 9.8, Eos % (Auto) 0.4, Baso % (Auto) 0.4, Absolute Neuts (auto) 11.9 H, Absolute Lymphs (auto) 2.07, Nucleated RBC % 0, Differential Comment SCANNED, Sodium 133 L, Potassium 4.0, Chloride 104, Carbon Dioxide 21.0, Anion Gap 8, BUN 30 H, Creatinine 1.21 H, Estim Creat Clear Calc 41.38, Est GFR (MDRD) Af Amer 55 L, Est GFR (MDRD) Non-Af 46 L, BUN/Creatinine Ratio 24.8 H, Glucose 129 H, Calcium 9.6, Troponin I High Sens 30 09/21/23 20:40: Lactic Acid 1.1 Micro: Microbiology 09/21/23 20:50 Mucosa - Nasopharyngeal SARS-CoV-2, Influenza & RSV (PCR) - Final Imagaing Radiology Impression Chest X-Ray 09/21/23 21:07 IMPRESSION: Mild bibasilar discoid atelectasis and subsegmental atelectasis in the right upper lobe Electronically Signed: Jan Pérez MD at 21:18 EST Reading Location ID and State: [facility] / [place] Tel , Service support , Assessment & Plan Assessment/Plan (1) Multifocal pneumonia: (2) COPD exacerbation: (3) Acute hypoxic respiratory failure: (4) D-dimer, elevated: PLAN: Plan 1. Multifocal Pneumonia with Acute exacerbation of COPD in the setting of DNR- CCA CODE STATUS; with no intubation - Admit to PCU. Continue broad-spectrum antibiotics, IV Solumedrol and nebulizers. Aim to keep oxygen saturations from 88-92%. 2. Laxur-yt-aypikno hypoxic respiratory failure requiring BiPAP due to #1 with critically elevated d dimer of 5.02 present on admission - Wean BiPAP as tolerated. Check LE dopplers and give full-dose Lovenox until DVT definitively ruled out on imaging. 3. Acute viral-type syndrome preceding admission with leukocytosis of 15.8 present on admission but with negative viral respiratory panel complicating #1 &#2 - Continue supportive care and monitor for improvement. 4. Essential hypertension - Continue home medications plus as previous give prnIV hydralazine for systolic blood pressure > 160 mm Hg. 5. Hyperlipidemia - Resume statin. 6. Morbid obesity; with BMI of 41.4 this admission - Weight loss will be recommended. Check TSH. 7. Peripheral vascular disease; with history of non-pressure chronic ulcer of the right and left lower extremities and chronic venous insufficiency of the right lower extremity - Stable. 8. History of right foot drop - Noted. 9. History of MRSA - Place on contact precautions. 10. History of vertebral osteomyelitis with T12 destruction (2019) with osteoarthritis and degenerative disc disease; with chronic back pain on methadone 10 mg p.o. nightly and Percocet 3 times daily as needed (with listed allergy to morphine) - Continue home pain regimen as previous to avoid withdrawal. 11. History of nonischemic cardiomyopathy - Noted. 12. History of hip replacement - Noted. 13. Hemorrhoids - Stable. Continue prn Preparation H. 14. Depression with anxiety - Resume home regimen as previous. 15. DVT prophylaxis - Patient on full-dose Lovenox with LE dopplers pending in the AM due to critically elevated d dimer of 5.02 present on admission. Total time: Approximately 55 minutes. Charges/Coding Visit Charges Inpatient E&M: 31010 Init Hosp L2 09/22/23 0521 <Electronically signed by Luna Dobbs DO> Cosigner Signature (if applicable): CC: Dr. Luna Dobbs DO; Dr. Wolf Berry MD~ Signed [facility] Work Phone: 1(134) 318-648501-21-2024 Discharge summary Author Nancy Alcocer [facility] September 22, 2023 2:47am Note Date/Time September 21, 2023 8 :16pm [facility] Medical Records Department [address] [place] [id number] Emergency Department Summary 09/21/23 MR#: [id number] Acct: [id number] Name: PATRICIA HAWLEY Rep #:[id number] : 1945 78 From: Nancy Alcocer MD PCP: Dr. Wolf Berry MD Status:ADM I N Location: [address] <BON Weir - Last Filed: 09/21/23 21:15> History of Present Illness Chief Complaint: Shortness of Breath Narrative Narrative: Patient presenting with flulike symptoms she has had for the past several days. She does report that she was recently [facility] She has had a fever, cough, shortness of breath, fatigue, decreased appetite, nausea, and a few episodes of vomiting. She does report having midsternal chest pain. She has a history of COPD and does wear 2 L O2 atbaseline, she reports that at times this does have to be adjusted. [facility] <BON Weir - Last Filed: 09/21/23 21:15> [facility] Medical History Abnormal CT of thoracic spine Abnormal spinal diagnostic imaging Anxiety Chronic back pain Chronic obstructive pulmonary disease COPD (chronic obstructive pulmonary disease) DDD (degenerative disc disease) Depression Essential (primary) hypertension Fatigue Foot drop, right Hemorrhoids History of COPD History of hypertension Hyperlipidemia Malnutrition MRSA (methicillin resistant staph aureus) culture positive Non-ischemic cardiomyopathy Non-pressure chronic ulcer of right lower leg with fat layer exposed PVD (peripheral vascular disease) Soft tissue mass Stage III pressure ulcer of right ankle Venous insufficiency of right leg Venous ulcer of left lower extremity without varicose veins Vertebral osteomyelitis Vitamin D deficiency Home Medications pravastatin 40 mg tablet 40 mg PO QHS CHOLESTEROL 01/17/18 [History Last Taken 09/19/22] methenamine hippurate 1 gram tablet 1 g PO BID URINARY 04/12/20 [History Last Taken 09/20/22] duloxetine 60 mg capsule,delayed release 60 mg PO DAILY 06/07/20 [History Last Taken 09/20/22] lisinopril 10 mg tablet 10 mg PO DAILY BP 06/07/20 [History Last Taken 09/20/22] metoprolol succinate 50 mg tablet,extended release 24 hr 50 mg PO DAILY HEART 06/07/20 [History Last Taken 09/20/22] fluticasone furoate 100 mcg-vilanterol 25 mcg/dose inhalation powder (Breo Ellipta) 1 inh inhalation DAILY 08/03/21 [History Last Taken 09/20/22] gabapentin 300 mg capsule 300 mg PO TID NERVE 08/03/21 [History Last Taken 09/20/22] buspirone 5 mg tablet 5 mg PO DAILY DEPRESSION 02/13/22 [History Last Taken 09/20/22] cholecalciferol (vitamin D3) 100 mcg (4,000 unit) tablet 100 mcg PO DAILY SUPPLEMENT 02/13/22 [History Last Taken 09/20/22] estradiol 0.01% (0.1 mg/gram) vaginal cream 1 appful vaginal MOWEFR UTI 02/13/22[History Last Taken 09/19/22] naloxone 4 mg/actuation nasal spray 1 spray intranasal Q2-3M PRN OVERDOSE 02/13/22 [History Last Taken Unknown] ondansetron HCl 4 mg tablet 4 mg PO Q8H PRN Nausea 02/13/22 [History Last Taken Unknown] polyethylene glycol 3350 17 gram oral powder packet 17 g PO DAILY PRN CONSTIPATION 02/13/22 [History Last Taken Unknown] pomegranate fruit extract 250 mg capsule 500 mg PO DINNER SUPPLEMENT 02/13/22 [History Last Taken 09/19/22] sennosides 8.6 mg-docusate sodium 50 mg tablet 1 tab PO BID PRN CONSTIPATION 02/13/22 [History Last Taken 09/20/22] smulxoag-pxv-raipi acid 0.4 mg-lycopene 300 mcg-lutein 250 mcg tablet (Centrum Silver) 1 tab PO DAILY 06/14/22 [History Last Taken 09/20/22] albuterol sulfate 90 mcg/actuation aerosol inhaler 2 inh inhalation Q4H PRN SOB/WHEEZING 08/15/22 [History Last Taken Unknown] Proheal 30 ml PO/SL BID 09/20/22 [History Last Taken 09/20/22] ULTRAFLORA IMMUNE HEALTH 170 mg PO/SL DAILY GUT HEALTH 09/20/22 [History Last Taken 09/19/22] acetaminophen 500 mg tablet 500 mg PO Q6H PRN Pain 09/20/22 [History Last Taken 09/17/22] albuterol sulfate 2.5 mg/3 mL (0.083 %) solution for nebulization 2.5 mg inhalation Q4H PRN SOB/WHEEZING 09/20/22 [History Last Taken 09/20/22] furosemide 40 mg tablet (Lasix) 40 mg PO DAILY EDEMA/SOB 09/20/22 [History Last Taken Unknown] guaifenesin 100 mg/5 mL oral liquid (Siltussin SA) 200 mg PO Q6H PRN COUGH/SORE THROAT 09/20/22 [History Last Taken 09/20/22] melatonin 5 mg tablet 5 mg PO QHS SLEEP 09/20/22 [History Last Taken 09/19/22] sertraline 100 mg tablet 200 mg PO DAILY DEPRESSION 09/20/22 [History Last Taken 09/20/22] hydrocortisone 1 % topical cream (Preparation H Hydrocortisone) 1 applic topicalTID PRN Hemorrhoids 09/21/22 [History Last Taken Unknown] levofloxacin 500 mg tablet 500 mg PO DAILY #5 tabs 09/22/22 [Rx Last Taken Unknown] methadone 10 mg tablet 10 mg PO QHS pain 3 days #3 tabs 09/22/22 [Rx Last Taken Unknown] prednisone 20 mg tablet 40 mg (2 x 20 mg) PO DAILY 5 days #10 tabs 09/22/22 [Rx Last Taken Unknown] buspirone 5 mg tablet 5 mg PO TID 03/14/23 [History Last Taken Unknown] oxycodone-acetaminophen 5 mg-325 mg tablet (Percocet) 1 tab PO TID PRN pain 03/14/23 [History Last Taken Unknown] menthol 4 % topical gel (Biofreeze (menthol)) 1 applic topical BID PRN pain 09/21/23 [History Last Taken Unknown] polyethylene glycol 3350 17 gram/dose oral powder (ClearLax) 17 g PO DAILY PRN constipation 09/21/23 [History Last Taken Unknown] Allergy/AdvReac Type Severity Reaction Status Date / Time morphine Allergy Unknown unknown Verified 09/21/23 19:44 amoxicillin [From Augmentin] AdvReac Nausea/Vom/ Verified 09/21/23 19:44 Diarrhea clavulanic acid AdvReac Nausea/Vom/ Verified 09/21/23 19:44 [From Augmentin] Diarrhea nitrofurantoin AdvReac Vomiting Verified 09/21/23 19:44 macrocrystalline [From Macrodantin] sulfamethoxazole AdvReac Nausea/Vom/ Verified 09/21/23 19:44 [From Bactrim] Diarrhea trimethoprim [From Bactrim] AdvReac Nausea/Vom/ Verified 09/21/23 19:44 Diarrhea Family History Father Hypertension Mother Diabetes Hypertension Brother Diabetes Brother Cancer Sister Hypertension Surgical History History of hip replacement History of hysterectomy History of incisional hernia repair Hx of repair of rotator cuff Social History Smoking Status: Never smoker alcohol intake: never substance use type: does not use caffeine: Yes Type: coffee Number of servings: 2 what type of physical activity do you participate in: none additional social history: Lives at [facility] ROS <BON Weir - Last Filed: 09/21/23 21:15> YRN ED Constitutional Constitutional ED: Reports chills and fever(s) Cardiovascular Cardiovascular: Reports chest pain; Denies palpitations Respiratory/Chest Respiratory/Chest: Reports cough, dyspnea and tachypnea Gastrointestinal Gastrointestinal: Reports nausea and vomiting; Denies abdominal pain, constipation or diarrhea Genitourinary Genitourinary ED: Denies dysuria, hematuria or urinary urgency Musculoskeletal Musculoskeletal: Denies arthralgias or myalgias Integumentary Denies rash Neurologic Neurologic: Denies weakness EXAM <BON Weir - Last Filed: 09/21/23 21:15> Physical Exam Const Vital Signs: 09/21/23 19:44 09/21/23 19:50 09/21/23 20:12 Temperature 100.4 F H 100.4 F H Temperature Source Temporal Temporal Pulse Rate 102 H 103 H 106 H Respiratory Rate 27 H 23 H 26 H Respiratory Effort Respiratory Pattern Tachypnea Blood Pressure 180/92 H 153/95 H Blood Pressure Mean 121 114 Pulse Ox 96 97 Oxygen Delivery Method Nasal Cannula Nasal Cannula Oxygen Flow Rate (L/min) 2 2 Fraction of Inspired Oxygen (FIO2) 09/21/23 20:12 09/21/23 20:50 09/21/23 20:50 Temperature 99.4 F H Temperature Source Temporal Pulse Rate 108 H Respiratory Rate 20 H Respiratory Effort Respiratory Pattern Blood Pressure 141/98 H Blood Pressure Mean 112 Pulse Ox 94 95 Oxygen Delivery Method Nasal Cannula Bi-pap Bi-pap Oxygen Flow Rate (L/min) 2 Fraction of Inspired Oxygen (FIO2) 40 40 09/21/23 20:53 09/21/23 20:50 09/21/23 21:00 Temperature 99.4 F H Temperature Source Temporal Pulse Rate 106 H 102 H Respiratory Rate 35 H 97 H Respiratory Effort Short of Breath Respiratory Pattern Tachypnea Blood Pressure 94/63 Blood Pressure Mean 73 Pulse Ox 96 24 Oxygen Delivery Method Bi-pap Bi-pap Oxygen Flow Rate (L/min) Fraction of Inspired Oxygen (FIO2) 40 35 40 09/21/23 22:00 09/21/23 22:30 Temperature 99.2 F H Temperature Source Axillary Pulse Rate 102 H 98 Respiratory Rate 17 18 Respiratory Effort Respiratory Pattern Normal Blood Pressure 105/83 H Blood Pressure Mean 90 Pulse Ox 92 93 Oxygen Delivery Method Bi-pap Oxygen Flow Rate (L/min) Fraction of Inspired Oxygen (FIO2) 40 35 Positive well nourished, well developed and no apparent distress General Appearance ED: well developed HEENT Reports normocephalic and head/scalp atraumatic Mouth ED: Yes moist mucous membranes normal Eyes PERRL and EOMs intact bilaterally Neck full ROM and supple Chest Wall inspection of chest normal Resp Resp Narrative: Tachypnea, coarse lung sounds and expiratory wheezes throughout. Cardio regular rate and regular rhythm GI soft to palpation, non-tender, non-distended and no masses Back/Spine normal ROM and normal to inspection Extremity normal to inspection and full ROM Neuro oriented x3, CN's II-XII intact bilaterally, moves all extremities, no focal motor deficits and no sensory deficits noted Sensorium / Orientation: awake and alert Psych mental status grossly normal and thought process normal Skin no rashes or lesions noted and no wounds <Dr. Nancy Alcocer MD - Last Filed: 09/21/23 22:37> Physical Exam Const Vital Signs: 09/21/23 19:44 09/21/23 19:50 09/21/23 20:12 Temperature 100.4 F H 100.4 F H Temperature Source Temporal Temporal Pulse Rate 102 H 103 H 106 H Respiratory Rate 27 H 23 H 26 H Respiratory Effort Respiratory Pattern Tachypnea Blood Pressure 180/92 H 153/95 H Blood Pressure Mean 121 114 Pulse Ox 96 97 Oxygen Delivery Method Nasal Cannula Nasal Cannula Oxygen Flow Rate (L/min) 2 2 Fraction of Inspired Oxygen (FIO2) 09/21/23 20:12 09/21/23 20:50 09/21/23 20:50 Temperature 99.4 F H Temperature Source Temporal Pulse Rate 108 H Respiratory Rate 20 H Respiratory Effort Respiratory Pattern Blood Pressure 141/98 H Blood Pressure Mean 112 Pulse Ox 94 95 Oxygen Delivery Method Nasal Cannula Bi-pap Bi-pap Oxygen Flow Rate (L/min) 2 Fraction of Inspired Oxygen (FIO2) 40 40 09/21/23 20:53 09/21/23 20:50 09/21/23 21:00 Temperature 99.4 F H Temperature Source Temporal Pulse Rate 106 H 102 H Respiratory Rate 35 H 97 H Respiratory Effort Short of Breath Respiratory Pattern Tachypnea Blood Pressure 94/63 Blood Pressure Mean 73 Pulse Ox 96 24 Oxygen Delivery Method Bi-pap Bi-pap Oxygen Flow Rate (L/min) Fraction of Inspired Oxygen (FIO2) 40 35 40 09/21/23 22:00 09/21/23 22:30 Temperature 99.2 F H Temperature Source Axillary Pulse Rate 102 H 98 Respiratory Rate 17 18 Respiratory Effort Respiratory Pattern Normal Blood Pressure 105/83 H Blood Pressure Mean 90 Pulse Ox 92 93 Oxygen Delivery Method Bi-pap Oxygen Flow Rate (L/min) Fraction of Inspired Oxygen (FIO2) 40 35 MDM <BON Weir - Last Filed: 09/21/23 21:15> [facility] Narrative Medical decision making narrative: Patient presenting due to shortness of breath and flulike symptoms that she has had over the past several days. She is slightly tachycardic here at 106 bpm, slightly tachypneic, slightly febrile. Oxygen saturation is 94% on her normal 2L. Patient will be given breathing treatments. She did desaturate to the high 80s on the 2 L O2, at that time she also was pursed lipped breathing, she was agreeable to trying BiPAP. Labs will be obtained, COVID/influenza/RSV will be obtained. Will obtain blood cultures. Chest x-ray to rule out pneumonia and other cardiopulmonary abnormality. Lab Data Attestation: I reviewed the patient's lab results. Lab results narrative: WBC 15.8, hemoglobin 11.7, sodium 133, BUN 30, creatinine 1.21, troponin 30 Labs: Laboratory Results - last 24 hr 09/21/23 09/21/23 20:25 20:40 WBC 15.8 H RBC 3.87 L Hgb 11.7 L Hct 37.5 MCV 96.9 MCH 30.2 MCHC 31.2 L RDW Std Deviation 45.1 H RDW Coeff of Zach 12.8 Plt Count 279 MPV 10.3 Immature Gran % (Auto) 0.500 Neut % (Auto) 75.8 H Lymph % (Auto) 13.1 L Warrick % (Auto) 9.8 Eos % (Auto) 0.4 Baso % (Auto) 0.4 Absolute Neuts (auto) 11.9 H Absolute Lymphs (auto) 2.07 Nucleated RBC % 0 Differential Comment SCANNED Sodium 133 L Potassium 4.0 Chloride 104 Carbon Dioxide 21.0 Anion Gap 8 BUN 30 H Creatinine 1.21 H Estim Creat Clear Calc 41.38 Est GFR (MDRD) Af Amer 55 L Est GFR (MDRD) Non-Af 46 L BUN/Creatinine Ratio 24.8 H Glucose 129 H Lactic Acid 1.1 Calcium 9.6 Troponin I High Sens 30 Radiography Diagnostic Testing: Clinical Impression(s) from Imaging Studies Chest X-Ray 09/21/23 21:07 IMPRESSION: Mild bibasilar discoid atelectasis and subsegmental atelectasis in the right upper lobe Electronically Signed: Jan Pérez MD at 21:18 EST Reading Location ID and State: [facility] / [place] Tel [phone], Service support , <Dr. Nancy Alcocer MD - Last Filed: 09/21/23 22:37> [facility] Lab Data Labs: Laboratory Results - last 24 hr 09/21/23 09/21/23 20:25 20:40 WBC 15.8 H RBC 3.87 L Hgb 11.7 L Hct 37.5 MCV 96.9 MCH 30.2 MCHC 31.2 L RDW Std Deviation 45.1 H RDW Coeff of Zach 12.8 Plt Count 279 MPV 10.3 Immature Gran % (Auto) 0.500 Neut % (Auto) 75.8 H Lymph % (Auto) 13.1 L Warrick % (Auto) 9.8 Eos % (Auto) 0.4 Baso % (Auto) 0.4 Absolute Neuts (auto) 11.9 H Absolute Lymphs (auto) 2.07 Nucleated RBC % 0 Differential Comment SCANNED Sodium 133 L Potassium 4.0 Chloride 104 Carbon Dioxide 21.0 Anion Gap 8 BUN 30 H Creatinine 1.21 H Estim Creat Clear Calc 41.38 Est GFR (MDRD) Af Amer 55 L Est GFR (MDRD) Non-Af 46 L BUN/Creatinine Ratio 24.8 H Glucose 129 H Lactic Acid 1.1 Calcium 9.6 Troponin I High Sens 30 Radiography Diagnostic Testing: Clinical Impression(s) from Imaging Studies Chest X-Ray 09/21/23 21:07 IMPRESSION: Mild bibasilar discoid atelectasis and subsegmental atelectasis in the right upper lobe Electronically Signed: Jan Pérez MD at 21:18 EST , EKG Initial EKG: Attestation: I personally reviewed and interpreted this EKG as follows: Interpretation: Sinus Tachycardia (Sinus tach at 104 with bigeminy pattern. No obvious ischemia.) Treatment and Re-Evaluation :: Patient seen and evaluated with PUSHPA. I personally interviewed and examined the patient. I was involved in all aspects of patient's orders, interpretation of results, and treatment. Patient seen and evaluated with physicians virtual assistant for advertisers. Patient presented from local [facility] via EMS with confusion, fever, shortness of breath. She reportedly was exposed to COVID at her ECF. She is a history of COPD and is on chronic oxygen at 2 L. Patient sitting upright in bed. She is tachypneic and appears in mild distress. She will answer questions appropriately but did fall asleep easily without stimulation. Head and neck examination feels no external sign of trauma. Heart is slightly tachycardic and regular. Lung sounds are with rales bilaterally with some underlying wheezes. Abdomen is soft and nontender. Patient was placed on museum educator. IV line initiated. Cultures obtained. Labwork obtained to evaluate for leukocytosis, anemia, and electrolyte derangement. Swab for COVID, influenza, RSV obtained. Patient was given breathing treatments along with IV Solu-Medrol. Following breathing treatments patient continues to be tachypneic with borderline saturations. She is placed on BiPAP at 40% FiO2. Patient is very adamant to me that she does not want to be intubated. CBC was a white count of 15.8 with 75% neutrophils. Hemoglobin is 11.7. Chemistry studies reveal sodium of 133 with a BUN of 30 and a creatinine 1.21. Glucose is normal at 129. Troponin is normal at 30. Lactic acid is 1.1. Portable chest x- ray per my interpretation reveals atelectasis but no obvious infiltrate. Radiology interpretation is reviewed and agrees. Swab for COVID, influenza, and RSV is negative. With patient having underlying COPD I will cover her with Rocephin and Zithromax. I will speak with hospitalist regarding admission. Discharge Plan Triage Chief Complaint: Shortness of Breath ED Midlevel Provider: Kianna Ruiz ED Provider: Nancy Alcocer Dx/Rx/DC Orders Prescriptions: No Action pravastatin 40 mg tablet 40 mg PO QHS duloxetine 60 mg capsule,delayed release(DR/EC) 60 mg PO DAILY lisinopril 10 mg tablet 10 mg PO DAILY metoprolol succinate 50 mg tablet extended release 24 hr 50 mg PO DAILY Breo Ellipta 100-25 mcg/dose blister with device 1 inh inhalation DAILY buspirone 5 mg tablet 5 mg PO TID buspirone 5 mg tablet 5 mg PO DAILY estradiol 0.01 % (0.1 mg/gram) cream 1 appful vaginal MOWEFR naloxone 4 mg/actuation spray,non-aerosol 1 spray intranasal Q2-3M PRN (Reason: OVERDOSE) Rx Instructions: spray 1 dose into ONE nostril; alternate nostrils w each dose until help arrives pomegranate fruit extract 250 mg capsule 500 mg PO DINNER cholecalciferol (vitamin D3) 100 mcg (4,000 unit) tablet 100 mcg PO DAILY albuterol sulfate 90 mcg/actuation HFA aerosol inhaler 2 inh inhalation Q4H PRN (Reason: SOB/WHEEZING) oxycodone-acetaminophen [Percocet] 5-325 mg tablet 1 tab PO TID PRN (Reason: pain) Centrum Silver 0.4 mg-300 mcg- 250 mcg tablet 1 tab PO DAILY polyethylene glycol 3350 17 gram powder in packet 17 g PO DAILY PRN (Reason: CONSTIPATION) methenamine hippurate 1 GM tablet 1 g PO BID Hold Instructions: Resume on 09/27/22. Rx Instructions: this can be used ongoing for prevention of uti. gabapentin 300 mg capsule 300 mg PO TID ondansetron HCl 4 mg tablet 4 mg PO Q8H PRN (Reason: Nausea) sennosides-docusate sodium 8.6-50 mg tablet 1 tab PO BID PRN (Reason: CONSTIPATION) albuterol sulfate 2.5 mg /3 mL (0.083 %) Solution For Nebulization 2.5 mg INHALATION Q4H PRN (Reason: SOB/WHEEZING) sertraline 100 mg tablet 200 mg PO DAILY acetaminophen 500 mg Tablet 500 mg PO Q6H PRN (Reason: Pain) guaifenesin [Siltussin SA] 100 mg/5 mL Liquid 200 mg PO Q6H PRN (Reason: COUGH/SORE THROAT) melatonin 5 mg Tablet 5 mg PO QHS Proheal 30 ml PO/SL BID ULTRAFLORA IMMUNE HEALTH 170 mg PO/SL DAILY furosemide [Lasix] 40 mg tablet 40 mg PO DAILY hydrocortisone [Preparation H Hydrocortisone] 1 % Cream 1 applic TOPICAL TID PRN (Reason: Hemorrhoids) levofloxacin 500 mg tablet 500 mg PO DAILY Qty: 5 0RF prednisone 20 mg tablet 40 mg PO DAILY 5 Days Qty: 10 0RF methadone 10 MG tablet 10 mg PO QHS 3 Days Qty: 3 0RF Biofreeze (menthol) 4 % gel 1 applic topical BID PRN (Reason: pain) Rx Instructions: apply to shoulder and lower back polyethylene glycol 3350 [ClearLax] 17 gram/dose powder 17 g PO DAILY PRN (Reason: constipation) Primary Care Provider: Wolf Berry Referrals: Wolf Berry MD [Primary Care Provider] - What to do if you have Problems For any increased pain, shortness of breath, bleeding, nausea or vomiting, chestpain, or any unexpected problems, contact your Primary Care Provider. Call [facility] ([phone]) or report to the closest Emergency Room. Call 911 if necessary. 09/22/23 0247 <Electronically signed by Nancy Alcocer MD> Cosigner Signature (if applicable): 09/21/232114 <Electronically signed by Kianna CROCKETT> CC: Dr. Wolf Berry MD ~ Signed [facility] Work Phone: 1(381) 893-159801-21-[address] Ji [facility] September 22, 2022 9:54am Note Date/Time September 22, 2022 9 :54am [facility] Medical Records Department [address] [place] [id number] Discharge Summary 09/22/22 0953 MR#: [id number] Acct: [id number] Name: PATRICIA HAWLEY Rep #:[id number] : 1945 77 From: Luiz Ji DO PCP: Wolf Berry Status:ADM IN [facility] Prov[facility] Date of Admission: 09/20/22 Primary Care Physician: Wolf Berry Reason For Visit: RIGHT SIDED HEALTHCARE ACQUIRED PNEUMONIA Diagnosis Discharge Diagnosis (1) Pneumonia: Status: Acute Code(s): J18.9 - Pneumonia, unspecified organism Plan: Right-sided suspected Gram negative Treatment: * abx w pip/tazo. governor assembler hydraulic to Levofloxacin for 5 more days * pulm toilet * Wean oxygen as tolerated. Currently on 3l/m Testing: * strep and legionella negative * resp panel negative * COVID 19 and influenza negative * BCx negative at 24h * SCx ordered, not performed yet (2) Abnormal spinal diagnostic imaging: Status: Acute Code(s): R93.7 - Abnormal findings on diagnostic imaging of other parts of musculoskeletal system Plan: Per radiology: oblique defect through the T12 vertebral body. There is air in the intervertebral disc space at T12-L1. This may be related to prior trauma or prior healed infectious area. This is only partially visualized. 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 Pt was transferred to [facility] at that time. This may be old. Reviewed records from [facility] from April 2020. Pt had 6 weeks of IV abx. Seen by neurosurgery and no plans for surgical intervention. (Pt states she wouldn't want any). No additional work up. Follow up with neursurgery PRN. Plan Chronic conditions: * COPD: BDs. Prednisone for 5 days. * debility: unclear baseline performance status. I suspect poor as she is an [facility] resident. PT OT. * HTN: continue furosemide * depression: buspirone, sertraline * chronic pain: methadone on home OCT, but does not show up on OARRS, gabapentin, duloxetine. * HLP: continue statin DC back [facility] Medications at Discharge Home Medications pravastatin 40 mg tablet 40 mg PO QHS CHOLESTEROL 01/17/18 methenamine hippurate 1 gram tablet 1 g PO BID URINARY 04/12/20 duloxetine 60 mg capsule,delayed release 60 mg PO DAILY 06/07/20 lisinopril 10 mg tablet 10 mg PO DAILY BP 06/07/20 metoprolol succinate 50 mg tablet,extended release 24 hr 50 mg PO DAILY HEART 06/07/20 fluticasone furoate 100 mcg-vilanterol 25 mcg/dose inhalation powder (Breo Ellipta) 1 inh inhalation DAILY 08/03/21 gabapentin 300 mg capsule 300 mg PO TID NERVE 08/03/21 buspirone 5 mg tablet 2.5 mg PO DAILY DEPRESSION 02/13/22 buspirone 5 mg tablet 5 mg PO QHS 02/13/22 cholecalciferol (vitamin D3) 100 mcg (4,000 unit) tablet 100 mcg PO DAILY SUPPLEMENT 02/13/22 estradiol 0.01% (0.1 mg/gram) vaginal cream 1 appful vaginal MOWEFR UTI 02/13/22 naloxone 4 mg/actuation nasal spray 1 spray intranasal Q2-3M PRN OVERDOSE 02/13/22 ondansetron HCl 4 mg tablet 4 mg PO Q8H PRN Nausea 02/13/22 polyethylene glycol 3350 17 gram oral powder packet 17 g PO DAILY PRN CONSTIPATION 02/13/22 pomegranate fruit extract 250 mg capsule 500 mg PO DINNER SUPPLEMENT 02/13/22 sennosides 8.6 mg-docusate sodium 50 mg tablet 1 tab PO BID PRN CONSTIPATION 02/13/22 zsmxvrhq-alm-bomka acid 0.4 mg-lycopene 300 mcg-lutein 250 mcg tablet (Centrum Silver) 1 tab PO DAILY 06/14/22 albuterol sulfate 90 mcg/actuation aerosol inhaler 2 inh inhalation Q4H PRN SOB/WHEEZING 08/15/22 Proheal 30 ml PO/SL BID 09/20/22 ULTRAFLORA IMMUNE HE[facility] 170 mg PO/SL DAILY GUT HEALTH 09/20/22 acetaminophen 500 mg tablet 500 mg PO Q6H PRN Pain 09/20/22 albuterol sulfate 2.5 mg/3 mL (0.083 %) solution for nebulization 2.5 mg inhalation Q4H PRN SOB/WHEEZING 09/20/22 furosemide 40 mg tablet (Lasix) 40 mg PO DAILY EDEMA/SOB 09/20/22 guaifenesin 100 mg/5 mL oral liquid (Siltussin SA) 200 mg PO Q6H PRN COUGH/SORE THROAT 09/20/22 melatonin 5 mg tablet 5 mg PO QHS SLEEP 09/20/22 sertraline 100 mg tablet 200 mg PO DAILY DEPRESSION 09/20/22 hydrocortisone 1 % topical cream (Preparation H Hydrocortisone) 1 applic topicalTID PRN Hemorrhoids 09/21/22 levofloxacin 500 mg tablet 500 mg PO DAILY #5 tabs 09/22/22 methadone 10 mg tablet 10 mg PO QHS pain 3 days #3 tabs 09/22/22 prednisone 20 mg tablet 40 mg PO DAILY 5 days #10 tabs 09/22/22 Hospital Course Operations None Procedures None Summary of Care Provided Minutes Spent on Discharge: 40 Weight / BMI Weight Weight: 100.471 kg Body Mass Index (BMI) 36.8 ABG / Lab / Microbiology Data Result Diagrams: 09/22/22 07:07 09/22/22 07:07 Laboratory: Laboratory Results - last 24 hr 09/22/22 07:07: WBC 10.3, RBC 3.30 L, Hgb 9.8 L, Hct 31.8 L, MCV 96.4, MCH 29.7,MCHC 30.8 L, RDW Std Deviation 45.8 H, RDW Coeff of Zach 12.9, Plt Count 325, MPV9.4, Immature Gran % (Auto) 1.600 H, Neut % (Auto) 82.0 H, Lymph % (Auto) 10.2 L, Warrick % (Auto) 6.1, Eos % (Auto) 0.0, Baso % (Auto) 0.1, Absolute Neuts (auto) 8.4 H, Absolute Lymphs (auto) 1.05, Nucleated RBC % 0 09/22/22 07:07: Sodium 140, Potassium 3.7, Chloride 105, Carbon Dioxide 29.0, Anion Gap 6, BUN 32 H, Creatinine 1.16 H, Estim Creat Clear Calc 36.55, Est GFR (MDRD) Af Amer 58 L, Est GFR (MDRD) Non-Af 48 L, BUN/Creatinine Ratio 27.6 H, Glucose 128 H, Calcium 9.2, Total Bilirubin 0.30, AST 29, ALT 32, Alkaline Phosphatase 69, Total Protein 6.7, Albumin 2.4 L, Globulin 4.3 H, Albumin/Globulin Ratio 0.6 L Microbiology: Microbiology 09/20/22 12:10 Blood Culture (Wb) - Anticubital Right Blood Culture - Preliminary No growth in 48 hours. 09/21/22 00:55 Urine, Random Legionella Antigen - Final 09/21/22 00:55 Urine, Random Streptococcus pneumoniae Antigen (M - Final 09/20/22 20:45 Mucosa - Nasopharyngeal Respiratory Panel (PCR) - Final 09/20/22 12:14 Nasal Secretion SARS-CoV-2 & FLU Antigen (Rapid) - Final Meaningful Use Info Meaningful Use Diagnoses (Choose all that apply): None applicable Discharge Plan Admission Admit Date/Time: 09/20/22 16:57 Primary Reason for Your Visit: Pneumonia Attending Provider: Luiz Ji Primary Care Provider: Wolf Berry Consulting Providers: Alfred Watson Discharge Orders/Prescriptions Prescriptions: New levofloxacin 500 mg tablet 500 mg PO DAILY Qty: 5 0RF prednisone 20 mg tablet 40 mg PO DAILY 5 Days Qty: 10 0RF Continued pravastatin 40 mg tablet 40 mg PO QHS duloxetine 60 mg capsule,delayed release(DR/EC) 60 mg PO DAILY lisinopril 10 mg tablet 10 mg PO DAILY metoprolol succinate 50 mg tablet extended release 24 hr 50 mg PO DAILY Breo Ellipta 100-25 mcg/dose blister with device 1 inh inhalation DAILY buspirone 5 mg tablet 5 mg PO QHS buspirone 5 mg tablet 2.5 mg PO DAILY estradiol 0.01 % (0.1 mg/gram) cream 1 appful vaginal MOWEFR naloxone 4 mg/actuation spray,non-aerosol 1 spray intranasal Q2-3M PRN (Reason: OVERDOSE) Rx Instructions: spray 1 dose into ONE nostril; alternate nostrils w each dose until help arrives pomegranate fruit extract 250 mg capsule 500 mg PO DINNER cholecalciferol (vitamin D3) 100 mcg (4,000 unit) tablet 100 mcg PO DAILY albuterol sulfate 90 mcg/actuation HFA aerosol inhaler 2 inh inhalation Q4H PRN (Reason: SOB/WHEEZING) Centrum Silver 0.4 mg-300 mcg- 250 mcg tablet 1 tab PO DAILY polyethylene glycol 3350 17 gram powder in packet 17 g PO DAILY PRN (Reason: CONSTIPATION) gabapentin 300 mg capsule 300 mg PO TID ondansetron HCl 4 mg tablet 4 mg PO Q8H PRN (Reason: Nausea) sennosides-docusate sodium 8.6-50 mg tablet 1 tab PO BID PRN (Reason: CONSTIPATION) albuterol sulfate 2.5 mg /3 mL (0.083 %) Solution For Nebulization 2.5 mg INHALATION Q4H PRN (Reason: SOB/WHEEZING) sertraline 100 mg tablet 200 mg PO DAILY acetaminophen 500 mg Tablet 500 mg PO Q6H PRN (Reason: Pain) guaifenesin [Siltussin SA] 100 mg/5 mL Liquid 200 mg PO Q6H PRN (Reason: COUGH/SORE THROAT) melatonin 5 mg Tablet 5 mg PO QHS Proheal 30 ml PO/SL BID ULTRAFLORA IMMUNE HE[facility] 170 mg PO/SL DAILY furosemide [Lasix] 40 mg tablet 40 mg PO DAILY hydrocortisone [Preparation H Hydrocortisone] 1 % Cream 1 applic TOPICAL TID PRN (Reason: Hemorrhoids) methadone 10 MG tablet 10 mg PO QHS 3 Days Qty: 3 0RF Held methenamine hippurate 1 GM tablet 1 g PO BID Hold Instructions: Resume on 09/27/22. Rx Instructions: this can be used ongoing for prevention of uti. Discontinued oxycodone-acetaminophen 5-325 mg tablet 1 tab PO DAILY PRN (Reason: Pain) prednisone 50 mg Tablet 50 mg PO DAILY Referrals / Follow Up: Wolf Berry [Primary Care Provider] - Within 2 Weeks Disposition Disposition (needs filled in before D/C Order can be placed): NonSkilled NH/Intermed Care Charges/Coding Visit Charges Inpatient E&M: 32715 Disch Hosp >30min 09/22/22 0954 <Electronically signed by Luiz Ji DO> Cosigner Signature (if applicable): CC: Dr. Luiz Ji DO; Wolf Berry~ Signed [facility] Work Phone: 1(229) 910-631401-21-[address] Ji [facility] September 22, 2022 9:53am Note Date/Time September 22, 2022 9 :44am [facility] Medical Records Department [address] [place] [address] [facility] MR#: [id number] Acct: [id number] Name: PATRICIA HAWLEY Rep #:[id number] : 1945 77 From: Luiz Ji DO PCP: Wolf Berry Status:ADM IN Certification of patient admission REQUIRED AT TIME OF ADMISSION. I CERTIFY THAT POST-HOSPITAL ECF SERVICES ARE REQUIRED TO BE GIVEN ON AN IN-PATIENT BASIS BECAUSE OF THE ABOVE NAMED PATIENT'S NEED FOR SNF CARE ON A CONTINUING BASIS FOR THE CONDITION(S) FOR WHICH HE/SHE WAS RECEIVING IN-PATIENT HOSPITAL SERVICES PRIOR TO HIS/HER TRANSFER TO THE [facility]. 09/22/22 0953<Electronically signed by Luiz Ji DO> Diet Diet Order/Speech Therapy: 09/20/22 17:26 Diet: Regular - General Food consistency:: Regular Liquid Consistency:: Regular/Thin Type of Dietary Supplement:: van Ensure Compact tid Is pt able to select menu?: No Diet Comments: [facility] soft for tough meats and vegetables only, not everything Routine Orders/Code Status O2 Liters per Minute: 3 O2 Frequency: Continuous Routine Lab Work: CBC and BMP Code Status: Full Code Wound(s) R 2nd toe scabbed: Wound Type: Scab Therapies Weight Bearing: Weight bearing as tolerated Physical Therapy: Eval and Treat Occupational Therapy: Eval and Treat Problem/Diagnosis (1) Pneumonia: Status: Acute Code(s): J18.9 - Pneumonia, unspecified organism Plan: Right-sided suspected Gram negative Treatment: * abx w pip/tazo. 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 There is air in the intervertebral disc space at T12-L1. This may be related to prior trauma or prior healed infectious area. This is only partially visualized. 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 Pt was transferred to [facility] at that time. This may be old. Reviewed records from [facility] from April 2020. Pt had 6 weeks of IV abx. Seen by neurosurgery and no plans for surgical intervention. (Pt states she wouldn't want any). No additional work up. Follow up with neursurgery PRN. Plan Chronic conditions: * COPD: BDs * debility: unclear baseline performance status. I suspect poor as she is an [facility] resident. PT OT. * HTN: continue furosemide * depression: buspirone, sertraline * chronic pain: methadone on home OCT, but does not show up on OARRS, gabapentin, duloxetine. * HLP: continue statin [facility] Allergies/Procedures Done in Hospital Allergies morphine Allergy (Unknown, Verified 08/15/22 13:51) unknown amoxicillin [From Augmentin] Adverse Reaction (Verified 08/15/22 13:51) Nausea/Vom/Diarrhea clavulanic acid [From Augmentin] Adverse Reaction (Verified 08/15/22 13:51) Nausea/Vom/Diarrhea nitrofurantoin macrocrystalline [From Macrodantin] Adverse Reaction (Verified 08/15/22 13:51) Vomiting sulfamethoxazole [From Bactrim] Adverse Reaction (Verified 08/15/22 13:51) Nausea/Vom/Diarrhea trimethoprim [From Bactrim] Adverse Reaction (Verified 08/15/22 13:51) Nausea/Vom/Diarrhea Procedures: None Type of Care/Length of Stay Estimated LOS: More Than 30 Days Type of Care Needed: Intermediate Rehab Potential: Fair Prognosis: Good Additional Orders/Day of Discharge Day of Discharge: 09/22/22 Dietary and Speech Recommendations Dietitian Recommendations/Changes: Will provide 4 oz ensure compact - vanilla - w/ meals tid 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 Discharge Plan Admission Admit Date/Time: 09/20/22 16:57 Primary Reason for Your Visit: Pneumonia Attending Provider: Luiz Ji Primary Care Provider: Wolf Berry Consulting Providers: Alfred Watson Discharge Orders/Prescriptions Prescriptions: New levofloxacin 500 mg tablet 500 mg PO DAILY Qty: 5 0RF prednisone 20 mg tablet 40 mg PO DAILY 5 Days Qty: 10 0RF Continued pravastatin 40 mg tablet 40 mg PO QHS duloxetine 60 mg capsule,delayed release(DR/EC) 60 mg PO DAILY lisinopril 10 mg tablet 10 mg PO DAILY metoprolol succinate 50 mg tablet extended release 24 hr 50 mg PO DAILY Breo Ellipta 100-25 mcg/dose blister with device 1 inh inhalation DAILY buspirone 5 mg tablet 5 mg PO QHS buspirone 5 mg tablet 2.5 mg PO DAILY estradiol 0.01 % (0.1 mg/gram) cream 1 appful vaginal MOWEFR naloxone 4 mg/actuation spray,non-aerosol 1 spray intranasal Q2-3M PRN (Reason: OVERDOSE) Rx Instructions: spray 1 dose into ONE nostril; alternate nostrils w each dose until help arrives pomegranate fruit extract 250 mg capsule 500 mg PO DINNER cholecalciferol (vitamin D3) 100 mcg (4,000 unit) tablet 100 mcg PO DAILY albuterol sulfate 90 mcg/actuation HFA aerosol inhaler 2 inh inhalation Q4H PRN (Reason: SOB/WHEEZING) Centrum Silver 0.4 mg-300 mcg- 250 mcg tablet 1 tab PO DAILY polyethylene glycol 3350 17 gram powder in packet 17 g PO DAILY PRN (Reason: CONSTIPATION) gabapentin 300 mg capsule 300 mg PO TID ondansetron HCl 4 mg tablet 4 mg PO Q8H PRN (Reason: Nausea) sennosides-docusate sodium 8.6-50 mg tablet 1 tab PO BID PRN (Reason: CONSTIPATION) albuterol sulfate 2.5 mg /3 mL (0.083 %) Solution For Nebulization 2.5 mg INHALATION Q4H PRN (Reason: SOB/WHEEZING) sertraline 100 mg tablet 200 mg PO DAILY acetaminophen 500 mg Tablet 500 mg PO Q6H PRN (Reason: Pain) guaifenesin [Siltussin SA] 100 mg/5 mL Liquid 200 mg PO Q6H PRN (Reason: COUGH/SORE THROAT) melatonin 5 mg Tablet 5 mg PO QHS Proheal 30 ml PO/SL BID ULTRAFLORA IMMUNE HEALTH 170 mg PO/SL DAILY furosemide [Lasix] 40 mg tablet 40 mg PO DAILY hydrocortisone [Preparation H Hydrocortisone] 1 % Cream 1 applic TOPICAL TID PRN (Reason: Hemorrhoids) methadone 10 MG tablet 10 mg PO QHS 3 Days Qty: 3 0RF Held methenamine hippurate 1 GM tablet 1 g PO BID Hold Instructions: Resume on 09/27/22. Rx Instructions: this can be used ongoing for prevention of uti. Discontinued oxycodone-acetaminophen 5-325 mg tablet 1 tab PO DAILY PRN (Reason: Pain) prednisone 50 mg Tablet 50 mg PO DAILY Referrals / Follow Up: Wolf Berry [Primary Care Provider] - Within 2 Weeks Disposition Disposition (needs filled in before D/C Order can be placed): NonSkilled NH/Intermed Care 09/22/22 0988 <Electronically signed by Luiz Ji DO> Cosigner Signature (if applicable): CC: Dr. Alfred Watson DO; Wolf Berry ~ [facility] Work Phone: 1(663) 453-443801-21-[address] iJ [facility] September 22, 2022 9:43am Note Date/Time September 22, 2022 8 :00am [facility] Medical Records Department [address] [place] [address] Progress Note - Hospitalist 09/22/22 0758 MR#: [id number] Acct: [id number] Name: PATRICIA HAWLEY Rep #:[id number] : 1945 77 From: Luiz Ji DO PCP: Wolf Berry Status:[facility] Subjective Subjective Breathing well. No events overnight. Objective Data Objective Data Vital Signs: Vital Signs Temp Pulse Resp BP Pulse Ox O2 Del Method O2 Flow Rate 36.5 C L 85 18 109/93 H 95 Nasal Cannula 3 09/22/22 02:17 09/22/22 02:17 09/22/22 02:17 09/22/22 02:17 09/22/22 02:17 09/22/22 02:19 09/22/22 02:19 Oxygen Flow Rate (L/min) 3 Oxygen Delivery Method Nasal Cannula Weight: 100.471 kg Body Mass Index (BMI) 36.8 Intake & Output: Intake and Output for Last 24 Hours 09/20/22 09/21/22 09/22/22 23:59 23:59 23:59 Intake Total 1074.25 / 1074.25 450 / 450 50 / 50 Output Total 1300 / 1300 100 / 100 Balance 1074.25 / 1074.25 -850 / -850 -50 / -50 Lab / Micro Data Result Diagrams: 09/22/22 07:07 09/22/22 07:07 Labs: Laboratory Results - last 24 hr 09/22/22 07:07: WBC 10.3, RBC 3.30 L, Hgb 9.8 L, Hct 31.8 L, MCV 96.4, MCH 29.7,MCHC 30.8 L, RDW Std Deviation 45.8 H, RDW Coeff of Zach 12.9, Plt Count 325, MPV9.4, Immature Gran % (Auto) 1.600 H, Neut % (Auto) 82.0 H, Lymph % (Auto) 10.2 L, Warrick % (Auto) 6.1, Eos % (Auto) 0.0, Baso % (Auto) 0.1, Absolute Neuts (auto) 8.4 H, Absolute Lymphs (auto) 1.05, Nucleated RBC % 0 Micro: Microbiology 09/20/22 12:10 Blood Culture (Wb) - Anticubital Right Blood Culture - Preliminary No growth in 48 hours. 09/21/22 00:55 Urine, Random Legionella Antigen - Final 09/21/22 00:55 Urine, Random Streptococcus pneumoniae Antigen (M - Final 09/20/22 20:45 Mucosa - Nasopharyngeal Respiratory Panel (PCR) - Final 09/20/22 12:14 Nasal Secretion SARS-CoV-2 & FLU Antigen (Rapid) - Final Physical Exam Const alert and no apparent distress Resp normal respiratory effort, no retractions, no use of accessory muscles and clearto auscultation bilaterally Cardio regular rate, regular rhythm, S1 normal heart sound and S2 normal heart sound Assessment & Plan Assessment/Plan (1) Pneumonia: PLAN: Right-sided suspected Gram negative Treatment: * abx w pip/tazo. 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 There is air in the intervertebral disc space at T12-L1. This may be related to prior trauma or prior healed infectious area. This is only partially visualized. 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 Pt was transferred to [facility] at that time. This may be old. Reviewed records from [facility] from April 2020. Pt had 6 weeks of IV abx. Seen by neurosurgery and no plans for surgical intervention. (Pt states she wouldn't want any). No additional work up. Follow up with neursurgery PRN. PLAN: Plan Chronic conditions: * COPD: BDs * debility: unclear baseline performance status. I suspect poor as she is an [facility] resident. PT OT. * HTN: continue furosemide * depression: buspirone, sertraline * chronic pain: methadone on home OCT, but does not show up on OARRS, gabapentin, duloxetine. * HLP: continue statin [facility]. Charges/Coding Visit Charges Inpatient E&M: 05259 Subs Hosp L2 09/22/22 0943 <Electronically signed by Luiz Ji DO> Cosigner Signature (if applicable): CC: ~ Signed [facility] Work Phone: 1(868) 741-776801-20-[address] Ji [facility] September 21, 2022 2:13pm Note Date/Time September 21, 2022 7 :50am [facility] Medical Records Department [address] [place] [address] Progress Note - Hospitalist 09/21/22 0749 MR#: [id number] Acct: [id number] Name: PATRICIA HAWLEY Rep #:[id number] : 1945 77 From: Luiz Ji DO PCP: Wolf Berry Status:ADM IN Location: [place] [address]-1 Subjective Subjective Breathing ok. Constipated for 1 week. Objective Data Objective Data Vital Signs: Vital Signs Temp Pulse Resp BP Pulse Ox O2 Del Method O2 Flow Rate 36.7 C 90 20 H 145/72 H 96 Nasal Cannula 3 09/21/22 02:45 09/21/22 02:45 09/21/22 02:45 09/21/22 02:45 09/21/22 02:45 09/21/22 02:45 09/21/22 02:45 Oxygen Flow Rate (L/min) 3 Oxygen Delivery Method Nasal Cannula Weight: 100.471 kg Body Mass Index (BMI) 36.8 Intake & Output: Intake and Output for Last 24 Hours 09/19/22 09/20/22 09/21/22 23:59 23:59 23:59 Intake Total 1074.25 / 1074.25 Output Total 400 / 400 Balance 1074.25 / 1074.25 -400 / -400 Lab / Micro Data Result Diagrams: 09/21/22 06:00 09/20/22 12:10 Labs: Laboratory Results - last 24 hr 09/20/22 12:10: WBC 13.1 H, RBC 3.76 L, Hgb 11.2 L, Hct 36.2 L, MCV 96.3, MCH 29.8, MCHC 30.9 L, RDW Std Deviation 45.5 H, RDW Coeff of Zach 12.8, Plt Count 289, MPV 9.9, Immature Gran % (Auto) 0.600, Neut % (Auto) 84.3 H, Lymph % (Auto)8.8 L, Warrick % (Auto) 5.9, Eos % (Auto) 0.2, Baso % (Auto) 0.2, Absolute Neuts (auto) 11.1 H, Absolute Lymphs (auto) 1.16, Nucleated RBC % 0 09/20/22 12:10: D-Dimer Quant (PE/DVT) 2.99 H* 09/20/22 12:10: Sodium 134 L, Potassium 4.0, Chloride 100, Carbon Dioxide 31.0, Anion Gap 3 L, BUN 26 H, Creatinine 0.98, Estim Creat Clear Calc 43.26, Est GFR (MDRD) Af Amer 71, Est GFR (MDRD) Non-Af 59 L, BUN/Creatinine Ratio 26.6 H, Glucose 141 H, Calcium 9.6, Troponin I High Sens 11 09/20/22 12:10: Lactic Acid 1.0 09/21/22 06:00: WBC 9.1, RBC 3.53 L, Hgb 10.5 L, Hct 33.7 L, MCV 95.5, MCH 29.7,MCHC 31.2 L, RDW Std Deviation 44.4 H, RDW Coeff of Zach 12.7, Plt Count 304, MPV10.1, Immature Gran % (Auto) 1.300 H, Neut % (Auto) 86.0 H, Lymph % (Auto) 8.3 L, Warrick % (Auto) 4.3, Eos % (Auto) 0.0, Baso % (Auto) 0.1, Absolute Neuts (auto) 7.8 H, Absolute Lymphs (auto) 0.75 L, Nucleated RBC % 0 Micro: Microbiology 09/21/22 00:55 Urine, Random Legionella Antigen - Final 09/21/22 00:55 Urine, Random Streptococcus pneumoniae Antigen (M - Final 09/20/22 20:45 Mucosa - Nasopharyngeal Respiratory Panel (PCR) - Final 09/20/22 12:14 Nasal Secretion SARS-CoV-2 & FLU Antigen (Rapid) - Final Radiography Diagnostic Testing: Radiology Impression Chest X-Ray 09/20/22 12:25 IMPRESSION: Patchy infiltrate in the peripheral lateral aspect of the right upper lobe. Increased markings at the lung bases suggestive of bibasilar atelectasis and/or early infiltrate. Electronically Signed: Colt Palafox MD at 12:53 EST , Chest CTA 09/20/22 15:09 IMPRESSION: 1. Since the prior study, there is an oblique defect through the T12 vertebral body. There is air in the intervertebral disc space at T12-L1. This may be related to prior trauma or prior healed infectious area. This is only partially visualized. 2. No demonstrated pulmonary embolism or arterial dissection. 3. There is right upper lobe and right lower lobe pneumonia. Electronically Signed: Rodrigo Hagen MD at 16:33 EST , Physical Exam Const alert and no apparent distress HEENT head/scalp atraumatic Resp normal respiratory effort, no retractions and no use of accessory muscles Cardio regular rate, regular rhythm, S1 normal heart sound and S2 normal heart sound GI normal to inspection, nondistended, normoactive bowel sounds, soft to palpation,non-tender and non-distended Extremity normal to inspection Assessment & Plan Assessment/Plan (1) Pneumonia: PLAN: Right-sided suspected Gram negative Treatment: * abx w pip/tazo * pulm toilet Testing: * strep and legionella negative * resp panel negative * COVID 19 and influenza negative * BCx pending * check SCx (2) Abnormal spinal diagnostic imaging: PLAN: Per radiology: oblique defect through the T12 vertebral body. There is air in the intervertebral disc space at T12-L1. This may be related to prior trauma or prior healed infectious area. This is only partially visualized. 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 Pt was transferred to [facility] at that time. This may be old. Check records from [facility]. PLAN: Plan Chronic conditions: * COPD: BDs * debility: unclear baseline performance status. I suspect poor as she is an [facility] resident. PT OT. * HTN: continue furosemide * depression: buspirone, sertraline * chronic pain: methadone on home OCT, but does not show up on OARRS, gabapentin, duloxetine. * HLP: continue statin VTE prophy: SQ heparin Charges/Coding Visit Charges Inpatient E&M: 29325 Subs Hosp L2 09/21/22 1413 <Electronically signed by Luiz Ji DO> Cosigner Signature (if applicable): CC: ~ Signed [facility] Work Phone: 1(704) 476-332201-19-2023 History and physical note Author Dr. Watson [facility] September 20, 2022 8:10pm Note Date/Time September 20, 2022 8 :10pm [facility] Medical Records Department [address] [place] [id number] H&P Exam - Hospitalist 09/20/222000 MR#: [id number] Acct: [id number] Name: PATRICIA HAWLEY Rep #:[id number] : 1945 77 From: Alfred Watson DO PCP: Wolf Berry Status:ADM IN [facility] - General General Date of Admission: 09/20/22 Date of Service: 09/20/22 Chief Complaint: Cough, increased shortness of breath HPI Narrative PATRICIA HAWLEY, is a 77 F who presents to the emergency room at [facility] after being sent in by an extended care facility at which she is a chronic resident due to increased shortness of breath and increased oxygen requirement at the facility. Patient is also been having a nonproductive cough for few days. Patient has chronic hypoxic respiratory failure and is on 2 L of oxygen at all times, she required 4 L of oxygen today and [facility]. Patient denies any fevers or chills. According tot penitentiary, patient was started on 50 mg of prednisone daily today for wheezing. Work-up in the emergency room included labs which showed an elevated white bloodcell count at 13.1, hemoglobin was 11.2, D-dimer was elevated at 2.99, BUN was 26, CTA of the chest was performed which showed a right upper and lower lobe infiltrate, there is also noted to be an abnormality of T12 which could indicateeither an infection or possible fracture. Patient was given IV antibiotics in the emergency room, she will be admitted to [place] [address] for healthcare acquired pneumonia and acute on chronic hypoxic respiratory failure. [facility] Medical History (Reviewed 08/15/22 @ 14:27 by Harpreet Gould FRONT OFFICE SPECIALIST, FRONT OFFICE SPECIALIST-C) Abnormal CT of thoracic spine Anxiety Chronic back pain Chronic obstructive pulmonary disease COPD (chronic obstructive pulmonary disease) DDD (degenerative disc disease) Depression Essential (primary) hypertension Foot drop, right Hemorrhoids Hyperlipidemia Malnutrition MRSA (methicillin resistant staph aureus) culture positive Non-ischemic cardiomyopathy Non-pressure chronic ulcer of right lower leg with fat layer exposed PVD (peripheral vascular disease) Soft tissue mass Stage III pressure ulcer of right ankle Venous insufficiency of right leg Venous ulcer of left lower extremity without varicose veins Vitamin D deficiency Home Medications methadone 10 mg tablet 10 mg PO QHS pain 10/04/15 [History Last Taken 09/19/22] pravastatin 40 mg tablet 40 mg PO QHS CHOLESTEROL 01/17/18 [History Last Taken 09/19/22] methenamine hippurate 1 gram tablet 1 g PO BID URINARY 04/12/20 [History Last Taken 09/20/22] duloxetine 60 mg capsule,delayed release 60 mg PO DAILY 06/07/20 [History Last Taken 09/20/22] lisinopril 10 mg tablet 10 mg PO DAILY BP 06/07/20 [History Last Taken 09/20/22] metoprolol succinate 50 mg tablet,extended release 24 hr 50 mg PO DAILY HEART 06/07/20 [History Last Taken 09/20/22] fluticasone furoate 100 mcg-vilanterol 25 mcg/dose inhalation powder (Breo Ellipta) 1 inh inhalation DAILY 08/03/21 [History Last Taken 09/20/22] gabapentin 300 mg capsule 300 mg PO TID NERVE 08/03/21 [History Last Taken 09/20/22] buspirone 5 mg tablet 2.5 mg PO DAILY DEPRESSION 02/13/22 [History Last Taken 09/20/22] buspirone 5 mg tablet 5 mg PO QHS 02/13/22 [History Last Taken 09/19/22] cholecalciferol (vitamin D3) 100 mcg (4,000 unit) tablet 100 mcg PO DAILY SUPPLEMENT 02/13/22 [History Last Taken 09/20/22] estradiol 0.01% (0.1 mg/gram) vaginal cream 1 appful vaginal MOWEFR UTI 02/13/22[History Last Taken 09/19/22] naloxone 4 mg/actuation nasal spray 1 spray intranasal Q2-3M PRN OVERDOSE 02/13/22 [History Last Taken Unknown] ondansetron HCl 4 mg tablet 4 mg PO Q8H PRN Nausea 02/13/22 [History Last Taken Unknown] oxycodone-acetaminophen 5 mg-325 mg tablet 1 tab PO DAILY PRN Pain 02/13/22 [History Last Taken 09/14/22] polyethylene glycol 3350 17 gram oral powder packet 17 g PO DAILY PRN CONSTIPATION 02/13/22 [History Last Taken Unknown] pomegranate fruit extract 250 mg capsule 500 mg PO DINNER SUPPLEMENT 02/13/22 [History Last Taken 09/19/22] sennosides 8.6 mg-docusate sodium 50 mg tablet 1 tab PO BID PRN CONSTIPATION 02/13/22 [History Last Taken 09/20/22] jttvwjye-mzl-caxcb acid 0.4 mg-lycopene 300 mcg-lutein 250 mcg tablet (Centrum Silver) 1 tab PO DAILY 06/14/22 [History Last Taken 09/20/22] albuterol sulfate 90 mcg/actuation aerosol inhaler 2 inh inhalation Q4H PRN SOB/WHEEZING 08/15/22 [History Last Taken Unknown] Proheal 30 ml PO/SL BID 09/20/22 [History Last Taken 09/20/22] ULTRAFLORA IMMUNE HEALTH 170 mg PO/SL DAILY GUT HEALTH 09/20/22 [History Last Taken 09/19/22] acetaminophen 500 mg tablet 500 mg PO Q6H PRN Pain 09/20/22 [History Last Taken 09/17/22] albuterol sulfate 2.5 mg/3 mL (0.083 %) solution for nebulization 2.5 mg inhalation Q4H PRN SOB/WHEEZING 09/20/22 [History Last Taken 09/20/22] furosemide 40 mg tablet (Lasix) 40 mg PO DAILY EDEMA/SOB 09/20/22 [History Last Taken Unknown] guaifenesin 100 mg/5 mL oral liquid (Siltussin SA) 200 mg PO Q6H PRN COUGH/SORE THROAT 09/20/22 [History Last Taken 09/20/22] melatonin 5 mg tablet 5 mg PO QHS SLEEP 09/20/22 [History Last Taken 09/19/22] prednisone 50 mg tablet 50 mg PO DAILY SOB/WHEEZING 09/20/22 [History Last Taken 09/20/22] sertraline 100 mg tablet 200 mg PO DAILY DEPRESSION 09/20/22 [History Last Taken 09/20/22] Allergy/AdvReac Type Severity Reaction Status Date / Time morphine Allergy Unknown unknown Verified 08/15/22 13:51 amoxicillin [From Augmentin] AdvReac Nausea/Vom/ Verified 08/15/22 13:51 Diarrhea clavulanic acid AdvReac Nausea/Vom/ Verified 08/15/22 13:51 [From Augmentin] Diarrhea nitrofurantoin AdvReac Vomiting Verified 08/15/22 13:51 macrocrystalline [From Macrodantin] sulfamethoxazole AdvReac Nausea/Vom/ Verified 08/15/22 13:51 [From Bactrim] Diarrhea trimethoprim [From Bactrim] AdvReac Nausea/Vom/ Verified 08/15/22 13:51 Diarrhea Family History Father Hypertension Mother Diabetes Hypertension Brother Diabetes Brother Cancer Sister Hypertension Surgical History History of hip replacement History of hysterectomy History of incisional hernia repair Hx of repair of rotator cuff Social History Smoking Status: Never smoker alcohol intake: never substance use type: does not use caffeine: Yes Type: coffee Number of servings: 2 what type of physical activity do you participate in: none additional social history: [facility] Constitutional Constitutional: Reports fatigue; Denies anorexia, change in weight, chills, fever(s), night sweats or weakness Eyes Eyes: Denies blurry vision, change in vision, discharge from eye(s) or eye pain Cardiovascular Cardiovascular: Denies chest pain, claudication, edema, lightheadedness, orthopnea or palpitations Respiratory/Chest Respiratory/Chest: Reports cough, dyspnea, shortness of breath at rest and shortness of breath with exertion; Denies hemoptysis Gastrointestinal Gastrointestinal: Denies abdominal pain, constipation, diarrhea, hematemesis, hematochezia, melena, nausea or vomiting Genitourinary Genitourinary: Denies dysuria, hematuria, urinary frequency, urinary hesitancy, urinary incontinence or urinary urgency Musculoskeletal Musculoskeletal: Denies back pain, joint pain, joint stiffness, joint swelling, myalgias or neck pain Neurologic Neurologic: Denies abnormal gait, abnormal speech, confusion, disequilibrium, dizziness, focal weakness, headache(s), loss of vision, numbness, other visual disturbances, paresthesias, syncope or tingling Psychiatric Psychiatric: Denies anxiety, cognitive impairment, depression, irritability, mood swings or suicidal ideation Endocrine Endocrinology: Denies change in body appearance, cold intolerance, excessive sweating, heat intolerance, polydipsia or polyuria Hematologic/Lymphatic Hematologic/Lymphatic: Denies none, anemia, easy bleeding, easy bruising or lymphadenopathy Allergic/Immunologic Allergic/Immunologic: Denies rhinitis, urticaria, eczemia or asthma Vital Signs Vital Signs Vital Signs: 09/20/22 11:54 09/20/22 12:10 09/20/22 12:10 Temperature 99.7 F H 99.7 F H Temperature Source Oral Oral Pulse Rate 89 87 Respiratory Rate 19 H 16 Respiratory Effort Short of Breath Respiratory Pattern Blood Pressure 153/65 H 156/107 H Blood Pressure Mean 94 123 Pulse Ox 98 93 Oxygen Delivery Method Nasal Cannula Nasal Cannula Nasal Cannula Oxygen Flow Rate (L/min) 4 2 2 09/20/22 12:17 09/20/22 13:02 09/20/22 13:05 Temperature Temperature Source Pulse Rate 89 Respiratory Rate 20 H Respiratory Effort Respiratory Pattern Normal Blood Pressure Blood Pressure Mean Pulse Ox 85 86 Oxygen Delivery Method Nasal Cannula Nasal Cannula Oxygen Flow Rate (L/min) 2 4 09/20/22 13:07 09/20/22 14:47 09/20/22 16:10 Temperature 98.0 F 97.2 F L Temperature Source Oral Oral Pulse Rate 78 78 Respiratory Rate 22 H 22 H Respiratory Effort Respiratory Pattern Blood Pressure 148/70 H 148/70 H Blood Pressure Mean 96 96 Pulse Ox 93 92 92 Oxygen Delivery Method Nasal Cannula Nasal Cannula Nasal Cannula Oxygen Flow Rate (L/min) 4 4 4 09/20/22 17:35 09/20/22 17:58 Temperature Temperature Source Pulse Rate 82 Respiratory Rate Respiratory Effort Respiratory Pattern Blood Pressure Blood Pressure Mean Pulse Ox 94 Oxygen Delivery Method Nasal Cannula Nasal Cannula Oxygen Flow Rate (L/min) 4 4 Weight Weight: 100.471 kg Body Mass Index (BMI) 36.8 Physical Exam Const alert, oriented x3 and no apparent distress Constitutional Narrative: Patient appears older than her stated age General Appearance: cooperative, well kempt and well developed Orientation / Consciousness: awake, oriented to person, oriented to place and oriented to time HEENT normocephalic and moist oral mucous membranes Eyes PERRL, EOMs intact bilaterally and conjunctivae normal Neck supple, no JVD, thyroid normal and no carotid bruits General: trachea midline Resp no retractions Resp Narrative: Patient appeared comfortable on 4 L of oxygen at the time my examination, auscultation of the lungs revealed scattered expiratory wheezes bilaterally. Auscultation: wheezes; Negative for rales or rhonchi Cardio regular rate, regular rhythm, S1 normal heart sound, S2 normal heart sound, no murmurs, no rub and no gallops GI normal to inspection, nondistended, normoactive bowel sounds, soft to palpation,non-tender and non-distended Extremity no clubbing, cyanosis or edema Skin no rashes or lesions noted General Skin Exam: no breakdown Neuro oriented x3, CN's II-XII intact bilaterally, moves all extremities, no focal motor deficits and no sensory deficits noted Sensorium / Orientation: awake and alert Speech: speech normal Psych affect normal Results Lab / Micro Data Result Diagrams: 09/20/22 12:10 09/20/22 12:10 Labs: Laboratory Results - last 24 hr 09/20/22 12:10: WBC 13.1 H, RBC 3.76 L, Hgb 11.2 L, Hct 36.2 L, MCV 96.3, MCH 29.8, MCHC 30.9 L, RDW Std Deviation 45.5 H, RDW Coeff of Zach 12.8, Plt Count 289, MPV 9.9, Immature Gran % (Auto) 0.600, Neut % (Auto) 84.3 H, Lymph % (Auto)8.8 L, Warrick % (Auto) 5.9, Eos % (Auto) 0.2, Baso % (Auto) 0.2, Absolute Neuts (auto) 11.1 H, Absolute Lymphs (auto) 1.16, Nucleated RBC % 0 09/20/22 12:10: D-Dimer Quant (PE/DVT) 2.99 H* 09/20/22 12:10: Sodium 134 L, Potassium 4.0, Chloride 100, Carbon Dioxide 31.0, Anion Gap 3 L, BUN 26 H, Creatinine 0.98, Estim Creat Clear Calc 43.26, Est GFR (MDRD) Af Amer 71, Est GFR (MDRD) Non-Af 59 L, BUN/Creatinine Ratio 26.6 H, Glucose 141 H, Calcium 9.6, Troponin I High Sens 11 09/20/22 12:10: Lactic Acid 1.0 Micro: Microbiology 09/20/22 12:14 Nasal Secretion SARS-CoV-2 & FLU Antigen (Rapid) - Final Radiology Impression Chest X-Ray 09/20/22 12:25 IMPRESSION: Patchy infiltrate in the peripheral lateral aspect of the right upper lobe. Increased markings at the lung bases suggestive of bibasilar atelectasis and/or early infiltrate. Electronically Signed: Colt Palafox MD at 12:53 EST , Chest CTA 09/20/22 15:09 IMPRESSION: 1. Since the prior study, there is an oblique defect through the T12 vertebral body. There is air in the intervertebral disc space at T12-L1. This may be related to prior trauma or prior healed infectious area. This is only partially visualized. 2. No demonstrated pulmonary embolism or arterial dissection. 3. There is right upper lobe and right lower lobe pneumonia. Electronically Signed: Rodrigo Hagen MD at 16:33 EST , Assessment & Plan Assessment/Plan (1) Pneumonia: PLAN: Plan 1. Right-sided healthcare acquired pneumonia-patient will be admitted to [facility] 3, she will be placed on IV Zosyn, labs will be monitored. #2 acute on chronic hypoxic respiratory failure-pulse ox will be monitored, patient is currently stable on nasal cannula oxygen #3 chronic obstructive pulmonary disease-I have elected to place the patient on IV corticosteroids for now, she will need reevaluated tomorrow for continued useof IV corticosteroids, patient will be given aerosol treatments #4 chronic debility-patient is currently a long-term resident in an extended care facility, she states she does not ambulate. 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 Alfred Watson DO; Wolf Berry~ Signed [facility] Work Phone: [phone]) [phone] Ray [facility] September 20, 2022 4:46pm Note Date/Time September 20, 2022 1 2:09pm [facility] Medical Records Department [address] [place] [address] Emergency Department Summary 09/20/22 MR#: [id number] Acct: [id number] Name: PATRICIA HAWLEY Rep #:[id number] : 1945 77 From: Vikas Ray DO PCP: Wolf Berry Status:ADM IN Location: UT3 FB419-7 HPI History of Present Illness Chief Complaint: Shortness of Breath Detail of Chief Complaint: Shortness of breath and cough Informant: patient and EMS Narrative Narrative: Patient presents from ECF with complaint of cough for a week and dyspnea. Patient normally on 2 L O2 and apparently per ECF had gone down to 70% on her 2 L. Patient was bumped up to 4 L and brought to ER for evaluation. ECF also noted some confusion. Patient denies fevers. She denies headache. She denies abdominal pain. Cough is been mostly nonproductive. Patient has history of COPD. Patient apparently had a chest x-ray done as an outpatient at the [facility] and radiology read that apparently has right lower lobe infiltrate. [facility] Medical History (Reviewed 08/15/22 @ 14:27 by Harpreet Gould FRONT OFFICE SPECIALIST, FRONT OFFICE SPECIALIST-C) Abnormal CT of thoracic spine Anxiety Chronic back pain Chronic obstructive pulmonary disease COPD (chronic obstructive pulmonary disease) DDD (degenerative disc disease) Depression Essential (primary) hypertension Foot drop, right Hemorrhoids Hyperlipidemia Malnutrition MRSA (methicillin resistant staph aureus) culture positive Non-ischemic cardiomyopathy Non-pressure chronic ulcer of right lower leg with fat layer exposed PVD (peripheral vascular disease) Soft tissue mass Stage III pressure ulcer of right ankle Venous insufficiency of right leg Venous ulcer of left lower extremity without varicose veins Vitamin D deficiency Home Medications methadone 10 mg tablet 10 mg PO BID pain 10/04/15 [History Last Taken 04/11/20] pravastatin 40 mg tablet 40 mg PO QHS CHOLESTEROL 01/17/18 [History Last Taken 04/11/20] methenamine hippurate 1 gram tablet 1 g PO BID URINARY 04/12/20 [History Last Taken 04/12/20] duloxetine 60 mg capsule,delayed release 60 mg PO DAILY 06/07/20 [History Last Taken Unknown] lisinopril 10 mg tablet 10 mg PO DAILY 06/07/20 [History Last Taken Unknown] metoprolol succinate 50 mg tablet,extended release 24 hr 50 mg PO DAILY 06/07/20[History Last Taken Unknown] fluticasone furoate 100 mcg-vilanterol 25 mcg/dose inhalation powder (Breo Ellipta) 1 inh inhalation DAILY 08/03/21 [History Last Taken Unknown] gabapentin 300 mg capsule 300 mg PO TID NERVE 08/03/21 [History Last Taken Unknown] sertraline 150 mg capsule 150 mg PO DAILY 08/03/21 [History Last Taken Unknown] buspirone 5 mg tablet 2.5 mg PO QAM 02/13/22 [History Last Taken Unknown] buspirone 5 mg tablet 5 mg PO QHS 02/13/22 [History Last Taken Unknown] cholecalciferol (vitamin D3) 100 mcg (4,000 unit) tablet 100 mcg PO DAILY 02/13/22 [History Last Taken Unknown] estradiol 0.01% (0.1 mg/gram) vaginal cream 1 appful vaginal MOTHSA 02/13/22 [History Last Taken Unknown] furosemide 40 mg tablet (Lasix) 40 mg PO .PRN PRN edema, SOB #30 tabs 02/13/22 [Rx Last Taken Unknown] lactobacillus combination no.9 4 billion cell capsule (Adult 50 Plus Probiotic) 4,000 mmu cells PO DAILY 02/13/22 [History Last Taken Unknown] naloxone 4 mg/actuation nasal spray 1 spray intranasal Q2-3M PRN 02/13/22 [History Last Taken Unknown] ondansetron HCl 4 mg tablet 4 mg PO Q8H PRN Nausea 02/13/22 [History Last Taken Unknown] oxycodone-acetaminophen 5 mg-325 mg tablet 1 tab PO DAILY PRN 02/13/22 [History Last Taken Unknown] polyethylene glycol 3350 17 gram oral powder packet 17 g PO DAILY PRN CONSTIPATION 02/13/22 [History Last Taken Unknown] pomegranate fruit extract 250 mg capsule 500 mg PO QPM 02/13/22 [History Last Taken Unknown] sennosides 8.6 mg-docusate sodium 50 mg tablet 1 tab PO BID PRN CONSTIPATION 02/13/22 [History Last Taken Unknown] kngroyef-dlz-sieyg acid 0.4 mg-lycopene 300 mcg-lutein 250 mcg tablet (Centrum Silver) 1 tab PO DAILY 06/14/22 [History Last Taken Unknown] albuterol sulfate 90 mcg/actuation aerosol inhaler 1 inh inhalation ONCE 08/15/22 [History Last Taken Unknown] melatonin 5 mg capsule mg PO DAILY 08/15/22 [History Last Taken Unknown] multivitamin 1 tab PO DAILY 08/15/22 [History Last Taken Unknown] sennosides 8.6 mg-docusate sodium 50 mg capsule (Senna Plus) 1 tab-cap PO BID PRN 08/15/22 [History Last Taken Unknown] Allergy/AdvReac Type Severity Reaction Status Date / Time morphine Allergy Unknown unknown Verified 08/15/22 13:51 amoxicillin [From Augmentin] AdvReac Nausea/Vom/ Verified 08/15/22 13:51 Diarrhea clavulanic acid AdvReac Nausea/Vom/ Verified 08/15/22 13:51 [From Augmentin] Diarrhea nitrofurantoin AdvReac Vomiting Verified 08/15/22 13:51 macrocrystalline [From Macrodantin] sulfamethoxazole AdvReac Nausea/Vom/ Verified 08/15/22 13:51 [From Bactrim] Diarrhea trimethoprim [From Bactrim] AdvReac Nausea/Vom/ Verified 08/15/22 13:51 Diarrhea Family History (Reviewed 08/15/22 @ 14:27 by Harpreet Gould FRONT OFFICE SPECIALIST, FRONT OFFICE SPECIALIST-C) Father Hypertension Mother Diabetes Hypertension Brother Diabetes Brother Cancer Sister Hypertension Surgical History (Reviewed 08/15/22 @ 14:27 by Harpreet Gould FRONT OFFICE SPECIALIST, FRONT OFFICE SPECIALIST-C) History of hip replacement History of hysterectomy History of incisional hernia repair Hx of repair of rotator cuff Social History (Reviewed 08/15/22 @ 14:27 by Harpreet Gould FRONT OFFICE SPECIALIST, FRONT OFFICE SPECIALIST-C) Smoking Status: Never smoker alcohol intake: never substance use type: does not use caffeine: Yes Type: coffee Number of servings: 2 what type of physical activity do you participate in: none additional social history: Lives [facility] ROS ED Review of Systems ROS Unobtainable: other Constitutional Constitutional ED: Reports lethargy; Denies chills, fever(s), sweats or weight loss Eyes Eyes: Denies blurry vision, change in vision or diplopia ENT ENT ED: Denies rhinorrhea or sore throat Cardiovascular Cardiovascular: Denies chest pain, orthopnea or racing heartbeat Respiratory/Chest Respiratory/Chest: Reports cough, dyspnea and dyspnea on exertion; Denies orthopnea or sputum Gastrointestinal Gastrointestinal: Denies abdominal pain, diarrhea, nausea or vomiting Genitourinary Genitourinary ED: Denies dysuria, hematuria or urinary frequency Musculoskeletal Musculoskeletal: Denies arthralgias, back pain, myalgias or neck pain Integumentary Denies abscess, Abrasions or rash Neurologic Neurologic: Reports other Details: Increased confusion ; Denies headache(s) or weakness Psychiatric Psychiatric: Denies anxiety, depression or suicidal thoughts Endocrine Endocrinology: Denies polydipsia, polyphagia or polyuria Hematologic/Lymphatic Hematologic/Lymphatic: Denies easy bleeding, easy bruising or lymphadenopathy Allergic/Immunologic Allergic/Immunologic ED: Denies mouth swelling, tongue swelling or urticaria EXAM Physical Exam Const Vital Signs: 09/20/22 11:54 09/20/22 12:10 09/20/22 12:10 Temperature 99.7 F H 99.7 F H Temperature Source Oral Oral Pulse Rate 89 87 Respiratory Rate 19 H 16 Respiratory Effort Short of Breath Respiratory Pattern Blood Pressure 153/65 H 156/107 H Blood Pressure Mean 94 123 Pulse Ox 98 93 Oxygen Delivery Method Nasal Cannula Nasal Cannula Nasal Cannula Oxygen Flow Rate (L/min) 4 2 2 09/20/22 12:17 09/20/22 13:02 09/20/22 13:05 Temperature Temperature Source Pulse Rate 89 Respiratory Rate 20 H Respiratory Effort Respiratory Pattern Normal Blood Pressure Blood Pressure Mean Pulse Ox 85 86 Oxygen Delivery Method Nasal Cannula Nasal Cannula Oxygen Flow Rate (L/min) 2 4 09/20/22 13:07 09/20/22 14:47 Temperature 98.0 F Temperature Source Oral Pulse Rate 78 Respiratory Rate 22 H Respiratory Effort Respiratory Pattern Blood Pressure 148/70 H Blood Pressure Mean 96 Pulse Ox 93 92 Oxygen Delivery Method Nasal Cannula Nasal Cannula Oxygen Flow Rate (L/min) 4 4 Positive well nourished and well developed General Appearance ED: well developed and NAD HEENT Reports TM's clear and moist mucous membranes normocephalic and atraumatic; Negative for trauma or tenderness Tympanic Membrane ED: Yes TM's clear Eyes PERRL and EOMs intact bilaterally General Eye ED: Negative for pale conjunctiva or scleral icterus Neck no lymphadenopathy, supple and no JVD General: Negative for tenderness Chest Wall inspection of chest normal and palpation of chest normal Chest: Negative for tenderness Resp clear to auscultation bilaterally Resp Narrative: Mild tachypnea. Patient has some coarse breath sounds bilaterally with some diffuse expiratory wheezes bilaterally. Patient has some diminished breath sounds in the right lower lobe. Few rales in the right lower lobe. Effort and Inspection: Negative for respiratory distress or pain with movement Auscultation: Negative for rhonchi, wheezes or diminished lung sounds Cardio regular rate, regular rhythm, S1 normal heart sound, S2 normal heart sound and no murmurs Peripheral Pulses: pulses 2+ throughout GI normal to inspection, nondistended, normoactive bowel sounds, soft to palpation,non-tender, non-distended and no masses Back/Spine no CVA tenderness and no thoracic nor lumbar tenderness Extremity normal to inspection General Extremety ED: Negative for edema General Extremity: Negative for edema Neuro oriented x3, CN's II-XII intact bilaterally, no sensory deficits noted and gait normal Sensorium / Orientation: awake, alert, oriented to person, oriented to place andoriented to time Motor Exam: strength 5/5 throughout and strength abnormal Psych mental status grossly normal Skin no rashes or lesions noted and no wounds MDM MDM MDM Narrative Medical decision making narrative: IV line established arrival. Patient given DuoNeb aerosol and Solu-Medrol 125 mg IV. Patient presented with report of chest x-ray done this morning that showed a right-sided pneumonia. Patient had blood cultures obtained. Patient was started on Levaquin IV. Chest x-ray was repeated here that showed a right upper lobe infiltrate and atelectasis in the lower lobes. D-dimer also elevatedtherefore CT of the chest will be obtained to rule out PE. Case discussed with hospitalist will evaluate patient for admission. Patient has had increased O2 demand. Lab Data Attestation: I reviewed the patient's lab results. Labs: Laboratory Results - last 24 hr 09/20/22 09/20/22 09/20/22 12:10 12:10 12:10 WBC 13.1 H RBC 3.76 L Hgb 11.2 L Hct 36.2 L MCV 96.3 MCH 29.8 MCHC 30.9 L RDW Std Deviation 45.5 H RDW Coeff of Zach 12.8 Plt Count 289 MPV 9.9 Immature Gran % (Auto) 0.600 Neut % (Auto) 84.3 H Lymph % (Auto) 8.8 L Warrick % (Auto) 5.9 Eos % (Auto) 0.2 Baso % (Auto) 0.2 Absolute Neuts (auto) 11.1 H Absolute Lymphs (auto) 1.16 Nucleated RBC % 0 D-Dimer Quant (PE/DVT) 2.99 H* Sodium 134 L Potassium 4.0 Chloride 100 Carbon Dioxide 31.0 Anion Gap 3 L BUN 26 H Creatinine 0.98 Estim Creat Clear Calc 43.26 Est GFR (MDRD) Af Amer 71 Est GFR (MDRD) Non-Af 59 L BUN/Creatinine Ratio 26.6 H Glucose 141 H Lactic Acid Calcium 9.6 Troponin I High Sens 11 09/20/22 12:10 WBC RBC Hgb Hct MCV MCH MCHC RDW Std Deviation RDW Coeff of Zach Plt Count MPV Immature Gran % (Auto) Neut % (Auto) Lymph % (Auto) Warrick % (Auto) Eos % (Auto) Baso % (Auto) Absolute Neuts (auto) Absolute Lymphs (auto) Nucleated RBC % D-Dimer Quant (PE/DVT) Sodium Potassium Chloride Carbon Dioxide Anion Gap BUN Creatinine Estim Creat Clear Calc Est GFR (MDRD) Af Amer Est GFR (MDRD) Non-Af BUN/Creatinine Ratio Glucose Lactic Acid 1.0 Calcium Troponin I High Sens Radiography Chest X-Ray - ED: 1 View Diagnostic Testing: Clinical Impression(s) from Imaging Studies Chest X-Ray 09/20/22 12:25 IMPRESSION: Patchy infiltrate in the peripheral lateral aspect of the right upper lobe. Increased markings at the lung bases suggestive of bibasilar atelectasis and/or early infiltrate. Electronically Signed: Colt Palafox MD at 12:53 EST , 1 view chest x-ray obtained interpreted by myself as increased markings in the right upper lobe as well as both lower lobes. No pneumothorax noted. No effusions noted. Radiology felt there was patchy infiltrate in the peripheral lateral aspect of the right upper lobe increased markings at the lung bases suggestive of atelectasis or early infiltrate. EKG Initial EKG: Attestation: I personally reviewed and interpreted this EKG as follows: Comments: Sinus rhythm with a rate of 86 bpm with occasional PVCs Discharge Plan Triage Chief Complaint: Shortness of Breath ED Provider: Vikas Ray Dx/Rx/DC Orders Clinical Impression: Pneumonia, Hypoxemia, History of hypertension, History of COPD Prescriptions: No Action pravastatin 40 mg tablet 40 mg PO QHS duloxetine 60 mg capsule,delayed release(DR/EC) 60 mg PO DAILY lisinopril 10 mg tablet 10 mg PO DAILY metoprolol succinate 50 mg tablet extended release 24 hr 50 mg PO DAILY Breo Ellipta 100-25 mcg/dose blister with device 1 inh inhalation DAILY sertraline 150 mg capsule 150 mg PO DAILY buspirone 5 mg tablet 5 mg PO QHS buspirone 5 mg tablet 2.5 mg PO QAM estradiol 0.01 % (0.1 mg/gram) cream 1 appful vaginal MOTHSA naloxone 4 mg/actuation spray,non-aerosol 1 spray intranasal Q2-3M PRN Rx Instructions: spray 1 dose into ONE nostril; alternate nostrils w each dose until help arrives oxycodone-acetaminophen 5-325 mg tablet 1 tab PO DAILY PRN pomegranate fruit extract 250 mg capsule 500 mg PO QPM cholecalciferol (vitamin D3) 100 mcg (4,000 unit) tablet 100 mcg PO DAILY Adult 50 Plus Probiotic 4 billion cell capsule 4,000 mmu cells PO DAILY Rx Instructions: administer with a meal furosemide [Lasix] 40 mg tablet 40 mg PO .PRN PRN (Reason: edema, SOB) Qty: 30 0RF albuterol sulfate 90 mcg/actuation HFA aerosol inhaler 1 inh inhalation ONCE multivitamin Tablet 1 tab PO DAILY melatonin 5 mg capsule PO DAILY Senna Plus 8.6-50 mg capsule 1 tab-cap PO BID PRN methadone 10 MG tablet 10 mg PO BID Label Comments: pain polyethylene glycol 3350 17 gram powder in packet 17 g PO DAILY PRN (Reason: CONSTIPATION) methenamine hippurate 1 GM tablet 1 g PO BID Rx Instructions: this can be used ongoing for prevention of uti. gabapentin 300 mg capsule 300 mg PO TID ondansetron HCl 4 mg tablet 4 mg PO Q8H PRN (Reason: Nausea) sennosides-docusate sodium 8.6-50 mg tablet 1 tab PO BID PRN (Reason: CONSTIPATION) Primary Care Provider: Wolf Berry Referrals: Wolf Berry [Primary Care Provider] - Disposition Disposition: Acute Care Hospital [facility] What to do if you have Problems For any increased pain, shortness of breath, bleeding, nausea or vomiting, chestpain, or any unexpected problems, contact your Primary Care Provider. Call [facility] ([phone]) or report to the closest Emergency Room. Call 911 if necessary. 09/20/22 1646 <Electronically signed by Vikas Ray DO> Cosigner Signature (if applicable): CC: Wolf Berry ~ Signed [facility] Work Phone: [phone] 151-141502-23-2021 NotePatient Outreach ([facility]OVAMN) PATRICIA HAWLEY ([id number]) 1945 F Date Time Provider Department 10/25/20 [...] Fully Assessed Order(s):SARS-COVID VACCINE 1ST DOSE APPT [[id number]] Order #: [id number] FUTURE Prescriptions as of 10/25/2020 Sig: PROBIOTIC [...] Take 40 mg by mouth once larisa* [id number] * Take 1 tablet by mouth once [...] B9*04/23/2020 06/01/2020 Letter Text Encounter Status:Closed by [employer], PRODUSER on 10/28/20[facility] Evaluation note* Diagnosis Onset Date Resolution Status Venous insufficiency of right leg chronic [facility] Work Phone: Evaluation note* Diagnosis Onset Date Resolution Status Venous insufficiency of right leg chronic Fatigue acute Essential (primary) hypertension chronic Non-ischemic cardiomyopathy chronic History of hypertension acut e Hypoxemia acute Pneumonia acute History of COPD chronic [facility] Work Phone: Evaluation note* Diagnosis Onset Date Resolution Status Venous insufficiency of right leg chronic Fatigue acute Essential (primary) hypertension chronic Non-ischemic cardiomyopathy chronic Abnormal spinal diagnostic imaging acute History of hypertension acut e Hypoxemia acute Pneumonia acute History of COPD chronic [facility] Work Phone: Evaluation note* Diagnosis Onset Date Resolution Status Hypoxemia resolved Pneumonia resolved [facility] Work Phone: Evaluation noteNo assessment information available [facility] Work Phone: Evaluation note* Diagnosis Onset Date Resolution Status Acute hypoxic respiratory failure acute D-dimer, elevated acute Essential (primary) hypertension acute Multifocal pneumonia acute COPD exacerbation chronic [facility] Work Phone: Hospital Discharge instructions Additional Instructions Keep the wound clean and dry. It may get wet but should not soak in any dirty water and should be dried thoroughly. Clean daily and apply antibiotic ointment daily. Watch for any signs of infection such as redness, pus, streaks or fever if seen need to be evaluated. Stitches out in 10 days. Tetanus shot was updated.[facility] Work Phone: Summary Purpose Family History No Family History Records Found Relationship Condition Age at Onset Recorded Date/T sri father Hypertension Unknown mother Diabetes mellitus Unknown Hypertension Unknown brother Diabetes mellitus Unknown brother Malignant neoplasm Unknown sister Hypertension Unknown Advance Directives No Advanced Directives Records Found Advance Directive Response Recorded Date/ Time Advance Directives No February 09 11:25am Living Will No July 11 8:55pm Power of Land Leases And Rentals Manager No July 11, 2021 8:55pm Advance Directive Response Recorded Date/ Time Advance Directives No February 09 10:25am Living Will No September 20 4:01pm Power of Land Leases And Rentals Manager No September 20, 2022 4:01pm Advance Directive Response Recorded Date/ Time Name of Medical Power of Land Leases And Rentals Manager Naina hutson antonio December 30, 2022 7:18am Advance Directives No February 09 11:25am Living Will Yes December 30, 2022 7:18am Power of Land Leases And Rentals Manager Yes December 30 7:18am Advance Directive Response Recorded Date/ Time Advance Directives No February 09 10:25am Living Will No September 21 7:50pm Power of Land Leases And Rentals Manager No September 21, 2023 7:50pm Advance Directive Response Recorded Date/ Time Name of Medical Power of Land Leases And Rentals Manager Viky Lam September 22, 2023 1:18am Advance Directives No February 09 10:25am Living Will Yes September 22 1:18am Power of Land Leases And Rentals Manager Yes September 22, 2023 1:18am Advance Directive Response Recorded Date/ Time Living Will Yes October 26 2:48am Do you have a Healthcare Power of Land Leases And Rentals Manager? Yes October 26, 2024 2:48am Name of Medical Power of Land Leases And Rentals Manager NAINA CHENReigna October 26, 2024 2:48am Advance Directives No February 09 11:25am Hospital Course Note HNO ID: [id number] Author: Марина Renee Service: Hospital Medicine Author [...] (more content not included)... Note HNO ID: [id number] Author: Piper Qureshi Service: Interventional Radiology Author Type: Physician Type: Brief Op Note Filed: 04/19/2020 10:44 AM Note Text: BRIEF OPERATIVE / PROCEDURE NOTE LOG ID: [id number] SURGERY/PROCEDURE DATE: 04/19/2020 INCISION/PROCEDURE START TIME: INCISION CLOSE/PROCEDURE END TIME: SURGEON(S)/PROCEDURALIST(S) AND RN CHEMICAL DEPENDENCY(S): Surgeon(s) and Role: * Maria Eugenia Qureshi - Primary No Additional Staff SURGERY/PROCEDURE(S): Vertebral aspiration and biopsy ANESTHESIA: Procedural Sedation FINDINGS: Aspiration of 15 cc of fluid. Minimal to no tissue was obtained through the biopsy needle, however, sent to pathology in formalin. ESTIMATED BLOOD LOSS: Minimal SPECIMENS: Sent to pathology and microbiology COMPLICATIONS: None PRE-OP/PRE-PROCEDURE DIAGNOSIS: Vertebral abscess POST-OP/POST-PROCEDURE DIAGNOSIS: Same as Preop SIGNATURE: Maria Eugenia Qureshi PATIENT NAME: Patricia Hawley DATE: April 19, 2020 TIME: 10:41 AM PAGER/CONTACT #: Procedure Findings Note HNO ID: [id number] Author: Piper Qureshi Service: Interventional Radiology Author Type: Physician Type: Brief Op Note Filed: 04/19/2020 10:44 AM Note Text: BRIEF OPERATIVE / PROCEDURE NOTE LOG ID: [id number] SURGERY/PROCEDURE DATE: 04/19/2020 INCISION/PROCEDURE START TIME: INCISION CLOSE/PROCEDURE END TIME: SURGEON(S)/PROCEDURALIST(S) AND RN CHEMICAL DEPENDENCY(S): Surgeon(s) and Role: * deena Zuluaganichelleparesh - Primary No Additional Staff SURGERY/PROCEDURE(S): Vertebral aspiration and biopsy ANESTHESIA: Procedural Sedation FINDINGS: Aspiration of 15 cc of fluid. Minimal to no tissue was obtained through the biopsy needle, however, sent to pathology in formalin. ESTIMATED BLOOD LOSS: Minimal SPECIMENS: Sent to pathology and microbiology COMPLICATIONS: None PRE-OP/PRE-PROCEDURE DIAGNOSIS: Vertebral abscess POST-OP/POST-PROCEDURE DIAGNOSIS: Same as Preop SIGNATURE: Maria Eugenia Qureshi PATIENT NAME: Patricia Hawley DATE: April 19, 2020 TIME: 10:41 AM PAGER/CONTACT #: Chief Complaint and Reason for Visit Chief Complaint Consult ATHEROSCLEROSIS OF [place] ARTERIES Test results Reason for Visit Venous insufficiency of right leg Chief Complaint ATHEROSCLEROSIS OF N ATIVE ARTERIES Test results 6 M FU PNEUMONIA Reason for Visit Venous insufficiency of right leg Fatigue Essential (primary) hypertension Non-ischemic cardiomyopathy History of hypertension Hypoxemia Pneumonia History of COPD Chief Complaint ATHEROSCLEROSIS OF N ATIVE ARTERIES Test results 6 M FU RIGHT SIDED HEALTHCARE ACQUIRED PNEUMONIA Pneumonia RIGHT SIDED HEALTHCARE ACQUIRED PNEUMONIA RIGHT SIDED HEALTHCARE ACQUIRED PNEUMONIA Reason for Visit Venous insufficiency of right leg Fatigue Essential (primary) hypertension Non-ischemic cardiomyopathy Abnormal spinal diagnostic imaging History of hypertension Hypoxemia Pneumonia History of COPD Chief Complaint RIGHT SIDED HEALTHCA RE ACQUIRED PNEUMONIA Pneumonia RIGHT SIDED HEALTHCARE ACQUIRED PNEUMONIA RIGHT SIDED HEALTHCARE ACQUIRED PNEUMONIA laceration Reason for Visit Hypoxemia Pneumonia Chief Complaint SOB Chief Complaint ACUTE EXACERBATION O F COPD W/ ACUTE HYPOXIC ACUTE EXACERBATION OF COPD W/ ACUTE HYPOXIC ACUTE EXACERBATION OF COPD W/ ACUTE HYPOXIC ACUTE EXACERBATION OF COPD W/ ACUTE HYPOXIC Reason for Visit Acute hypoxic respir atory failure D-dimer, elevated Essential (primary) hypertension Multifocal pneumonia COPD exacerbation Chief Complaint Admit Date wound August 20, 2024 8:00am wound October 01, 2024 8 :00am wound October 22, 2024 8:00am FALL, PERIPROSTHETIC HIP FRACTURE Februa 2024 11:21pm FALL, PERIPROSTHETIC HIP FRACTURE Februa ry 2024 4:59pm FALL, PERIPROSTHETIC HIP FRACTURE Februa 2024 12:43pm wound November 26, 2024 8:0 0am Reason for Visit Admit Date Bilateral edema of lower extremity Decem sushil 2023 8:00am Neuropathy August 20, 2024 8:00am Non-pressure chronic ulcer o f other part of right foot with fat layer exposed August 20, 2024 8:00am Venous insufficiency (chronic) (peripher al) August 20, 2024 8:00am Bilateral edema of lower extremity Janua ry 2024 8:00am Neuropathy October 01, 2024 8 :00am Non-pressure chronic ulcer o f other part of right foot with fat layer exposed October 01, 2024 8:00am Venous insufficiency (chronic) (peripher al) October 01, 2024 8:00am Bilateral edema of lower extremity Febru [email or web address] 8:00am Neuropathy October 22, 2024 8:00am Non-pressure chronic ulcer o f other part of right foot with fat layer exposed October 22, 2024 8:00am Venous insufficiency (chronic) (peripher al) October 22, 2024 8:00am Bilateral edema of lower extremity Febru ida 2024 11:21pm Neuropathy October 25, 2024 11:21pm Non-pressure chronic ulcer o f other part of right foot with fat layer exposed October 25, 2024 11:21pm 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 October 25, 2024 11:21pm Venous insufficiency (chronic) (peripher al) October 25, 2024 11:21pm Edema, lower extremity November 26, 2024 8:00am Neuropathy November 26, 2024 8:0 0am Non-pressure chronic ulcer o f other part of right foot with fat layer exposed November 26, 2024 8:00am Venous insufficiency (chronic) (peripher al) November 26, 2024 8:00am Additional Source Comments INFORMATION SOURCE (unrecogn ized section and content) DATE CREATED AUTHOR 08/11/2019 [facility] DATE CREATED AUTHOR AUTHOR'S ORGANIZ ATION 05/31/2020 [facility] DATE CREATED AUTHOR AUTHOR'S ORGANIZ ATION 06/14/2020 [facility] DATE CREATED AUTHOR AUTHOR'S ORGANIZ ATION 06/30/2020 [facility] DATE CREATED AUTHOR AUTHOR'S ORGANIZ ATION 10/10/2021 [facility] DATE CREATED AUTHOR AUTHOR'S ORGANIZ ATION 06/03/2022 [facility] DATE CREATED AUTHOR AUTHOR'S ORGANIZ ATION 01/28/2025 [facility] Goals (unrecognized section and content) Goals may be documented in a n alternate sectionGoals may be documented in an alternate sectionGoals may be documented in an alternate sectionGoals may be documented in an alternate sectionGoals may be documented in an alternate section Care Teams (unrecognized sec tion and content) Team Status: Active Member Role Status Dates Dr. Wolf Berry MD Primary Care Provider Active Team Status: Inactive Member Role Status Dates Dr. Wolf Berry MD Primary Care Provider Active Start: August 20, 2024 End: September 01, 2024 Dr. Jadon Dolan DPM Attending Provider Active Start: August 20, 2024 End: September 01, 2024 Dr. Jan Worley DPM Referring Provider Active Start: August 20, 2024 End: September 01, 2024 Team Status: Inactive Member Role Status Dates Dr. Wolf Berry MD Primary Care Provider Active Start: October 01, 2024 End: October 02, 2024 Dr. Jadon Dolan DPM Attending Provider Active Start: October 01, 2024 End: October 02, 2024 Dr. Jan Worley DPM Referring Provider Active Start: October 01, 2024 End: October 02, 2024 Team Status: Inactive Member Role Status Dates Dr. Wolf Berry MD Primary Care Provider Active Start: October 22, 2024 End: October 30, 2024 Dr. Jadon Dolan DPM Attending Provider Active Start: October 22, 2024 End: October 30, 2024 Dr. Jan Worley DPM Referring Provider Active Start: October 22, 2024 End: October 30, 2024 Team Status: Inactive Member Role Status Dates Dr. Wolf Berry MD Primary Care Provider Active Start: October 25, 2024 End: October 27, 2024 Dr. Pan Roberts DO Referring Provider Active Start: October 25, 2024 End: October 27, 2024 Dr. Pan Roberts DO Emergency Provider Active Start: October 25, 2024 End: October 27, 2024 Dr. Kay Padilla MD Admit Provider Active St art: October 25, 2024 End: October 27, 2024 Dr. Kay Padilla MD Other Provider Active St art: October 25, 2024 End: October 27, 2024 Dr. Jadon Dolan DPM Other Provider Active Start: October 25, 2024 End: October 27, 2024 Dr. Alfred Watson DO Attending Provider Active Start: October 25, 2024 End: October 27, 2024 Team Status: Active Member Role Status Dates Dr. Wolf Berry MD Primary Care Provider Active Start: October 26, 2024 Dr. Pan Roberts DO Emergency Provider Active Start: October 26, 2024 Dr. Kay Padilla MD Admit Provider Active St art: October 26, 2024 Dr. Kay Padilla MD Other Provider Active St art: October 26, 2024 Dr. Jadon Dolan DPM Other Provider Active Start: October 26, 2024 Dr. Alfred Watson DO Attending Provider Active Start: October 26, 2024 Dr. Alfred Watson DO Other Provider Active S tart: October 26, 2024 Team Status: Active Member Role Status Dates Dr. Wolf Berry MD Primary Care Provider Active Start: October 27, 2024 Dr. Pan Roberts DO Emergency Provider Active Start: October 27, 2024 Dr. Kay Padilla MD Admit Provider Active St art: October 27, 2024 Dr. Kay Padilla MD Other Provider Active St art: October 27, 2024 LM BurksM Other Provider Active Start: October 27, 2024 Dr. Alfred Watson , Attending Provider Active Start: October 27, 2024 Dr. Alfred Watson , Other Provider Active S tart: October 27, 2024 Team Status: Inactive Member Role Status Dates Dr. Wolf Berry MD Primary Care Provider Active Start: November 26, 2024 End: November 30, 2024 Dr. Jadon Dolan , JOJO Attending Provider Active Start: November 26, 2024 End: November 30, 2024 Dr. Jan Worley , JOJO Referring Provider Active Start: November 26, 2024 End: November 30, 2024 Team Status: Active Member Role Status Dates Wolf Berry Primary Care Provider Active Team Status: Inactive Member Role Status Dates Wolf Berry Primary Care Provider, Referring Provider Active Harpreet Gould FRONT OFFICE SPECIALIST, FRONT OFFICE SPECIALIST-C Attending Provider Active Team Status: Inactive Member Role Status Dates Wolf Berry Primary Care Provider, Referring Provider Active Dr. Luiz Land MD Attending Provider Active Team Status: Active Member Role Status Dates Wolf Berry Primary Care Provider Active Dr. Luiz Land MD Attending Provider, Referring Pro vider Active Team Status: Inactive Member Role Status Dates Wolf Berry Primary Care Provider Active Dr. Luiz Land MD Attending Provider, Referring Pro vider Active Team Status: Active Member Role Status Dates Wolf Berry Primary Care Provider Active Dr. Vikas Ray , DO Emergency Provider Active Dr. Alfred Watson DO Admit Provider, Attending Pro vider Active Team Status: Active Member Role Status Dates Wolf Berry Primary Care Provider Active Dr. Vikas Ray , DO Emergency Provider Active Dr. Alfred Watson , DO Admit Provider, Attending Provider, Other Provider Active Team Status: Active Member Role Status Dates Wolf Berry Primary Care Provider Active Dr. Vikas Ray DO Emergency Provider Active Dr. Alfred Watson , DO Admit Provider, Other Provide r Active Dr. Luiz Ji , DO Attending Provider, Other Provid er Active Team Status: Inactive Member Role Status Dates Wolf Berry Primary Care Provider Active Dr. Vikas Ray , DO Emergency Provider Active Dr. Alfred Watson , DO Admit Provider, Other Provide r Active Dr. Luiz Ji , DO Attending Provider Active Team Status: Active Member Role Status Dates Wolf Berry [facility] Primary Care Provider Active Dr. Vikas Ray DO Emergency Provider Active Dr. Alfred Watson DO Admit Provider, Attending Provider, Other Provider Active Team Status: Active Member Role Status Dates Wolf BARNEY Primary Care Provider Active Dr. Vikas Ray DO Emergency Provider Active Dr. Alfred Watson DO Admit Provider, Other Provide r Active Dr. Luiz Ji DO Attending Provider, Other Provid er Active Team Status: Inactive Member Role Status Dates Wolf BARNEY Primary Care Provider Active Dr. Vikas Ray DO Emergency Provider Active Dr. Alfred Watson DO Admit Provider, Other Provide r Active Dr. Luiz Ji DO Attending Provider Active Team Status: Inactive Member Role Status Dates Dr. Delmar Jeter MD Emergency Provider Active Dr. Wolf Berry MD Primary Care Provider Active Team Status: Active Member Role Status Dates Dr. Wolf Berry MD Primary Care Provider Active Dr. Nancy Alcocer MD Emergency Provider Active Dr. Luna Dobbs DO Admit Provider, Attending Pr ovider Active Team Status: Active Member Role Status Dates Dr. Wolf Berry MD Primary Care Provider Active Dr. Nancy Alcocer MD Emergency Provider Active Dr. Luna Dobbs DO Admit Provider, Other Provid er Active Dr. Germain Pettit MD Attending Provider, Other Provider Active Team Status: Active Member Role Status Dates Dr. Wolf Berry MD Primary Care Provider Active Dr. Darryl Darden MD Attending Provider Active Team Status: Active Member Role Status Dates Dr. Wolf Berry MD Primary Care Provider Active Dr. Nancy Alcocer MD Emergency Provider Active Dr. Luna Dobbs DO Admit Provider, Other Provid er Active Dr. Mary Cobos MD Attending Provider, Other Prov ider Active Dr. Germain Pettit MD Other Provider Active Team Status: Inactive Member Role Status Dates Dr. Wolf Berry MD Primary Care Provider Active Dr. Nancy Alcocer MD Emergency Provider Active Dr. Luna Dobbs DO Admit Provider, Other Provid er Active Dr. Mary Cobos MD Attending Provider Active Dr. Germain Pettit MD Other Provider Active FOR RECORDS PERTAINING TO PATIENTS WHO ARE [...] BE BASED ON THE PRIMARY CLINICAL RECORDS. [facility] [employer] [facility]. provides no warranty or guarantee of the accuracy or completeness of information in this document.
[2025-02-03 23:43] VITALS: BP 124/55; PULSE 56; RESP 14; TEMP 36.6; O2SAT 97
[2025-02-04] VITALS: BP 135/55; PULSE 58; RESP 14; TEMP 36.6; O2SAT 97
[2025-02-04 00:18] LABS: Absolute Neutrophil Count 8.5 X10^3/uL (2.0-7.7); Basophil# 0.02 X10^3/uL; Basophil% 0.2 % (0-1); Eosinophil# 0.14 X10^3/uL; Eosinophils% 1.2 % (0-5); Hematocrit 33.7 % (37-47); Hemoglobin 10.7 g/dL (12.0-15.0); Lymphocyte % 14.2 % (19-41); Mean Corp Hgb Conc 31.8 g/dL (32-36); Mean Corpuscular Hgb 31.2 pg (27.0-32.0); Mean Corpuscular Volume 98.3 fL (81-99); Mean Platelet Vol. 10.4 fl (6.2-12.0); Monocyte# 0.99 X10^3/uL; Monocyte% 8.8 % (0-10); NRBC Flagged by Analyzer 0 % (0-5); Neutrophil % 75.2 % (47-70); Platelet Count 256 K/mm3 (150-450); RBC Distribution Width SD 46.5 fl (35.1-43.9); Red Blood Count 3.43 M/mm3 (4.2-5.4); White Blood Count 11.3 K/mm3 (4.4-11.0)
[2025-02-04 00:35] LABS: Anion Gap 12 (5-15); BUN 32 mg/dL (4-19); BUN/Creat Ratio 25.6 RATIO (10-20); Calcium,Total 9.4 mg/dL (7.6-11.0); Carbon Dioxide 21.9 mmol/L (21.0-32.0); Chloride 105 mmol/L (98-108); Creatinine, Serum 1.25 mg/dL (0.70-1.20); EST Glomerular Filtration Rate 44 (>60); Glucose 120 mg/dL (70-99); Magnesium 2.1 mg/dL (1.5-2.2); Potassium 3.8 mmol/L (3.3-5.1); Pro- Brain NATRIURETIC PEPTIDE 479 pg/mL (<=1800); Sodium Level 139 mmol/L (133-145)
[2025-02-04 00:52] LABS: Mucous, Urine 0 SEEN /hpf (<or=2+); Squamous Epithelial Cells - UA 0 SEEN /hpf (5-10)
[2025-02-04 00:57] LABS: Color, Urine Yellow (Yellow); Glucose, Dipstick Normal (Normal); Ketone-Dipstick 5 mg/dl (Negative); Leukocyte Esterase-Dipstick 500 /ul (Negative); Nitrite-Dipstick Negative (Negative); Occult Blood-Urine 250 /ul (Negative); Protein-Dipstick 100 mg/dl (Negative); Specific Gravity, Urine 1.015 (1.002-1.030); Urine Bilirubin Dipstick Negative (Negative); Urine Clarity Sl. Cloudy (Clear); Urine Urobilinogen Normal (Normal)
[2025-02-04 01:00] VITALS: BP 130/98; PULSE 67; RESP 21; TEMP 36.6; O2SAT 98
[2025-02-04 01:31] LABS: Bacteria 2+ /hpf (None Seen); Hyaline Cast 0-5 SEEN /lpf (0-5); Red Blood Cells-Urine 0-5 SEEN /hpf (0-5); White Blood Cells >100 SEEN /hpf (0-5)
[2025-02-04] MEDS: Ceftriaxone 1 GM/50 ML BAG IV (01:48)
[2025-02-04 02:00] VITALS: BP 118/78; PULSE 78; RESP 16; TEMP 36.6; O2SAT 99
[2025-02-04 03:00] VITALS: BP 102/56; PULSE 63; RESP 16; TEMP 36.7; O2SAT 97
--- NOTE | 2025-02-04 03:51 | EX.ED.DYSGE1 ---
HPI History of Present Illness Chief Complaint: Shortness of Breath Informant: patient and family Narrative Narrative: Patient is a 79-year-old female with past medical history of hypertension hyperlipidemia and COPD who wears chronic oxygen. She stays at a group home and was reportedly complaining of increased shortness of breath and therefore was sent to the hospital for further evaluation. The patient does state that she has a history of urinary tract infections and is concerned she may have developed 1 over the last few days. Family states that she has become septic from UTIs in the past. Daughter reports that the group home did start her on Omnicef over the past 1 to 2 days but despite taking this there does not seem to be an improvement of her symptoms and she is also began with diarrhea since using the antibiotic. Daughter is concerned that the antibiotic is not working and that there is concern she will become septic once again and therefore he was sent in for evaluation. [facility] Medical History (Updated 02/05/25 @ 02:[address] Cornelius Rhoades, DO) Periprosthetic fracture around internal prosthetic hip joint Bilateral edema of lower extremity Venous insufficiency (chronic) (peripheral) Neuropathy Non-pressure chronic ulcer of other part of right foot with fat layer exposed Hydronephrosis Hyperlipidemia Acute hypoxic respiratory failure Vertebral osteomyelitis Abnormal spinal diagnostic imaging History of COPD History of hypertension Fatigue Non-ischemic cardiomyopathy Abnormal CT of thoracic spine Soft tissue mass Vitamin D deficiency Depression Anxiety Chronic back pain Chronic obstructive pulmonary disease Venous insufficiency of right leg PVD (peripheral vascular disease) DDD (degenerative disc disease) COPD (chronic obstructive pulmonary disease) Essential (primary) hypertension MRSA (methicillin resistant staph aureus) culture positive Hemorrhoids Venous ulcer of left lower extremity without varicose veins 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 Foot drop, right Malnutrition Home Medications ?Medication ?Instructions ?Recorded ?Last Taken ?Type pravastatin 40 mg tablet 40 mg PO QHS CHOLESTEROL 01/17/18 03/13/24 History methenamine hippurate 1 gram tablet 1 g PO BID URINARY 04/12/20 03/14/24 History metoprolol succinate 50 mg 50 mg PO DAILY HEART 06/07/20 03/14/24 History tablet,extended release 24 hr fluticasone furoate 100 1 inh inhalation DAILY breathing 08/03/21 09/20/22 History mcg-vilanterol 25 mcg/dose inhalation powder (Breo Ellipta) cholecalciferol (vitamin D3) 100 100 mcg PO DAILY SUPPLEMENT 02/13/22 03/14/24 History mcg (4,000 unit) tablet ondansetron HCl 4 mg tablet 4 mg PO Q8H PRN Nausea 02/13/22 Unknown History sennosides 8.6 mg-docusate sodium 1 tab PO BID CONSTIPATION 02/13/22 03/14/24 History 50 mg tablet guaifenesin 100 mg/5 mL oral 200 mg PO Q6H PRN COUGH/SORE THROAT 09/20/22 09/20/22 History liquid (Siltussin SA) melatonin 5 mg tablet 5 mg PO QHS SLEEP 09/20/22 03/13/24 History sertraline 100 mg tablet 200 mg PO DAILY DEPRESSION 09/20/22 03/14/24 History hydrocortisone 1 % topical cream 1 applic topical TID PRN 09/21/22 Unknown History (Preparation H Hydrocortisone) Hemorrhoids buspirone 5 mg tablet 5 mg PO TID mental health 03/14/23 03/14/24 History menthol 4 % topical gel (Biofreeze 1 applic topical BID PRN pain 09/21/23 Unknown History (menthol)) polyethylene glycol 3350 17 17 g PO DAILY PRN constipation 09/21/23 Unknown History gram/dose oral powder (ClearLax) bisacodyl 10 mg rectal suppository 10 mg MN DAILY PRN constipation 03/14/24 Unknown History estradiol 0.01% (0.1 mg/gram) 1 appful vaginal .COMPLEX 03/14/24 Unknown History vaginal cream magnesium hydroxide 400 mg/5 mL 30 ml PO DAILY PRN constipation 03/14/24 Unknown History oral suspension (Dulcolax (magnesium hydroxide)) albuterol sulfate 90 mcg/actuation 2 inh inhalation Q4H 10/25/24 Unknown History breath activated powder inhaler acetaminophen 325 mg tablet 650 mg (2 x 325 mg) PO Q4H PRN PRN 10/27/24 Unknown Rx Fever, pain 1-06/11 #0 tabs albuterol sulfate 2.5 mg/3 mL 2.5 mg (3 mL) inhalation Q2H PRN 10/27/24 Unknown Rx (0.083 %) solution for nebulization PRN Dyspnea, wheezing #0 mL gabapentin 300 mg capsule 300 mg PO TID #0 caps 10/27/24 Unknown Rx menthol 0.44 %-zinc oxide 20.6 % 1 applic topical 4X/DAY #0 grams 10/27/24 Unknown Rx topical ointment (Calmoseptine) pantoprazole 40 mg tablet,delayed 40 mg PO QDAY #90 tabs 12/30/24 Unknown Rx release pomegranate fruit 2 cap PO DAILY 12/30/24 Unknown History xt-bioflavonoids, citrus 250 mg-250 mg capsule Lactobacillus rhamnosus GG 10 1 cap PO DAILY 02/03/25 Unknown History billion cell capsule (Culturelle) cefdinir 300 mg capsule 300 mg PO BID 02/03/25 Unknown History magnesium hydroxide 400 mg/5 mL 30 ml PO DAILY PRN constipation 02/03/25 Unknown History oral suspension (Dulcolax (magnesium hydroxide)) mineral oil (Fleet Mineral Oil 118 ml MN DAILY PRN constipation 02/03/25 Unknown History enema) oxycodone-acetaminophen 5 mg-325 1 tab PO TID PRN PRN pain 02/03/25 Unknown History mg tablet ertapenem 1 gram solution for 1 g IV DAILY 7 days 02/04/25 Unknown Rx injection Allergy/AdvReac Type Severity Reaction Status Date / Time morphine Allergy Unknown unknown Verified 02/03/25 22:46 amoxicillin (From Augmentin) AdvReac Nausea/Vom/ Verified 02/03/25 22:46 Diarrhea clavulanic acid (From AdvReac Nausea/Vom/ Verified 02/03/25 22:46 Augmentin) Diarrhea nitrofurantoin AdvReac Vomiting Verified 02/03/25 22:46 macrocrystalline (From Macrodantin) sulfamethoxazole (From AdvReac Nausea/Vom/ Verified 02/03/25 22:46 Bactrim) Diarrhea trimethoprim (From Bactrim) AdvReac Nausea/Vom/ Verified 02/03/25 22:46 Diarrhea Family History Father Hypertension Mother Diabetes Hypertension Brother Diabetes Brother Cancer Sister Hypertension Surgical History History of incisional hernia repair Hx of repair of rotator cuff History of hip replacement History of hysterectomy Social History household members: caregiver housing: group home Smoking Status: Never smoker alcohol intake: never substance use type: does not use caffeine: Yes Type: coffee Number of servings: 2 what type of physical activity do you participate in: none additional social history: Lives at [facility] ROS ED Constitutional Constitutional ED: Reports other Details: Positive fatigue ; Denies chills or fever(s) ENT ENT ED: Denies sore throat Cardiovascular Cardiovascular: Denies chest pain Respiratory/Chest Respiratory/Chest: Reports cough and dyspnea Gastrointestinal Gastrointestinal: Reports diarrhea; Denies abdominal pain, nausea or vomiting Genitourinary Genitourinary ED: Reports dysuria Musculoskeletal Musculoskeletal: Denies myalgias Integumentary Denies rash Neurologic Neurologic: Reports weakness; Denies headache(s) Hematologic/Lymphatic Hematologic/Lymphatic: Denies easy bleeding or easy bruising Allergic/Immunologic Allergic/Immunologic ED: Denies mouth swelling or tongue swelling EXAM Physical Exam Const Vital Signs: 02/04/25 03:00 02/04/25 04:00 02/04/25 04:00 Temperature 98.1 F 98.0 F 98.0 F Temperature Source Oral Oral Pulse Rate 63 60 61 Respiratory Rate 16 18 18 Blood Pressure 102/56 L 103/50 L 103/50 L Blood Pressure Mean 71 67 67 Pulse Ox 97 96 96 Oxygen Delivery Method Nasal Cannula Nasal Cannula Oxygen Flow Rate (L/min) 2 2 Positive well nourished, well developed and obese General Appearance ED: well developed; Negative for pallor Nutritional Appearance: obese HEENT Reports dry mucous membranes HEENT Narrative: Mucous membranes are mildly dry and tacky No tongue or lip swelling no oral lesions no airway edema or compromise Mouth ED: Yes dry mucous membranes Mouth: dry mucous membranes Eyes PERRL and EOMs intact bilaterally General Eye ED: Negative for pale conjunctiva or scleral icterus Neck supple and no JVD Neck Narrative: No nuchal rigidity or meningeal signs noted Chest Wall palpation of chest normal Resp Resp Narrative: Breath sounds are diminished throughout with faint expiratory wheeze in the bilateral bases However no nasal flaring retractions tachypnea or accessory muscle use Cardio regular rate and regular rhythm GI non-tender, non-distended and no masses GI Narrative: Abdomen is obese soft nontender nondistended with hyperactive bowel sounds. No voluntary guarding or rigidity or pulsatile mass. Auscultation: hyperactive bowel sounds Palpation: soft Extremity Extremity Narrative: +2 pitting edema to the bilateral lower extremities that is equal and symmetric and chronic per patient Negative Homans' sign bilaterally Neuro oriented x3, CN's II-XII intact bilaterally and no sensory deficits noted Neuro Narrative: GCS of 14 Patient is lethargic but will wake to voice and answer questions appropriately No focal neurologic deficit Sensorium / Orientation: alert Psych Psych Narrative: Patient has a flat affect Skin no rashes or lesions noted General Skin Exam: Negative for jaundice or pallor MDM MDM MDM Narrative Medical decision making narrative: Patient presented to the ER satting in the mid 90s on her normal 2 L nasal cannula without signs of respiratory distress. Patient reported generalized fatigue/weakness and increased shortness of breath and therefore she could be having a COPD exacerbation versus pneumonia versus congestive heart failure exacerbation. Secondary to this basic labs were obtained as well as a chest x-ray. With daughter report of concern for sepsis secondary to concern of UTI urine sample was obtained as well. Patient's white count is 11.3 which is not clinically significant. Her proBNP is 479 which goes against CHF exacerbation. Chest x-ray shows no sign of volume overload or pneumonia. The patient's urine sample shows greater than 100 white blood cells with +2 bacteria which is consistent with persistent UTI. As the patient is been on antibiotics for 2 days the antibiotic is most likely not causing any improvement based on this repeat urine sample. However her creatinine is at baseline at 1.25 and this goes against COLIN. The patient is afebrile not tachycardic or hypotensive her white count is not above 12.4 and she does not have bandemia therefore she does not qualify as sepsis. The urine will be sent for culture. However as she has had previous UTIs leading to sepsis in the past I did review her urine culture from roughly 1 year ago. That culture displayed only IV antibiotics would work on the Proteus bacteria. Therefore at this time she was given a dose of ertapenem which the previous culture reported the bacteria was sensitive to. As the patient is not requiring a higher level of care/oxygen demand I do not feel there is need for admission especially as she does not have COLIN or signs of sepsis. However as the UTI is most likely resistant to oral antibiotics she will receive a prescription for IV ertapenem. The IV will be kept in place as she stays at a group home and the group home can provide the antibiotics once daily to help resolve the infection. This plan of care was discussed with the group home who is agreeable to it and patient will be discharged at this time History & Record Review Discussion w/independent historian: Patient and Family Lab Data Attestation: I reviewed the patient's lab results. Labs: Laboratory Results - last 24 hr 02/03/25 02/03/25 00:01 00:45 WBC 11.3 H RBC 3.43 L Hgb 10.7 L Hct 33.7 L MCV 98.3 MCH 31.2 MCHC 31.8 L RDW Std Deviation 46.5 H RDW Coeff of Zach 13.0 Plt Count 256 MPV 10.4 Immature Gran % (Auto) 0.400 Neut % (Auto) 75.2 H Lymph % (Auto) 14.2 L [place] % (Auto) 8.8 Eos % (Auto) 1.2 Baso % (Auto) 0.2 Absolute Neuts (auto) 8.5 H Absolute Lymphs (auto) 1.60 Nucleated RBC % 0 Sodium 139 Potassium 3.8 Chloride 105 Carbon Dioxide 21.9 Anion Gap 12 BUN 32 H Creatinine 1.25 H Estim Creat Clear Calc 41.10 L Est GFR (MDRD) Non-Af 44 L BUN/Creatinine Ratio 25.6 H Glucose 120 H Calcium 9.4 Magnesium 2.1 NT pro BNP II 479 Urine Color Yellow Urine Clarity Sl. Cloudy Urine pH 6.0 Ur Specific [place] 1.015 Urine Protein 100 H Urine Glucose (UA) Normal Urine Ketones 5 H Urine Occult Blood 250 H Urine Nitrite Negative Urine Bilirubin Negative Urine Urobilinogen Normal Ur Leukocyte Esterase 500 H Urine RBC 0-5 SEEN Urine WBC >100 SEEN Ur Squamous Epith Cells 0 SEEN Urine Bacteria 2+ Hyaline Casts 0-5 SEEN Urine Mucus 0 SEEN Radiography Diagnostic Testing: Clinical Impression(s) from Imaging Studies Chest X-Ray 02/03/25 00:15 IMPRESSION: Limited exam due to patient positioning. Streaky bibasilar opacities may represent atelectasis, edema, and/or infection. Reading Location: [facility] Chest x-ray as interpreted by the emergency medicine physician reveals hazy opacities in bilateral lower lobes consistent with atelectasis Discharge Plan Triage Chief Complaint: Shortness of Breath ED Provider: Andes,Cornelius Dx/Rx/DC Orders Clinical Impression: UTI (urinary tract infection), Hyperlipidemia, Essential (primary) hypertension, COPD (chronic obstructive pulmonary disease) Instructions: Urinary Tract Infections in Women Prescriptions: New ertapenem 1 gram recon soln 1 g IV DAILY 7 Days No Action pravastatin 40 mg tablet 40 mg PO QHS metoprolol succinate 50 mg tablet extended release 24 hr 50 mg PO DAILY fluticasone furoate-vilanterol [Breo Ellipta] 100-25 mcg/dose blister with device 1 inh inhalation DAILY buspirone 5 mg tablet 5 mg PO TID cholecalciferol (vitamin D3) 100 mcg (4,000 unit) tablet 100 mcg PO DAILY pomegranate xt-bioflav,citrus 250-250 mg capsule 2 cap PO DAILY pantoprazole 40 mg tablet,delayed release (DR/EC) 40 mg PO QDAY Qty: 90 1RF methenamine hippurate 1 GM tablet 1 g PO BID Rx Instructions: this can be used ongoing for prevention of uti. ondansetron HCl 4 mg tablet 4 mg PO Q8H PRN (Reason: Nausea) sennosides-docusate sodium 8.6-50 mg tablet 1 tab PO BID sertraline 100 mg tablet 200 mg PO DAILY guaifenesin [Siltussin SA] 100 mg/5 mL Liquid 200 mg PO Q6H PRN (Reason: COUGH/SORE THROAT) melatonin 5 mg Tablet 5 mg PO QHS hydrocortisone [Preparation H Hydrocortisone] 1 % Cream 1 applic TOPICAL TID PRN (Reason: Hemorrhoids) Biofreeze (menthol) 4 % gel 1 applic topical BID PRN (Reason: pain) Rx Instructions: apply to shoulder and lower back polyethylene glycol 3350 [ClearLax] 17 gram/dose powder 17 g PO DAILY PRN (Reason: constipation) bisacodyl 10 mg suppository 10 mg MN DAILY PRN (Reason: constipation) estradiol 0.01 % (0.1 mg/gram) cream 1 appful vaginal .COMPLEX Patient Comments: PATIENT INSTRUCTIONS STATE TO APPLY TO GROIN TOPICALLY FOR UTI Rx Instructions: 1 appful vaginally; 1 appful vaginally EVERY MON,WED,FRI; magnesium hydroxide [Dulcolax (magnesium hydroxide)] 400 mg/5 mL suspension 30 ml PO DAILY PRN (Reason: constipation) albuterol sulfate 90 mcg/actuation aerosol powdr breath activated 2 inh inhalation Q4H acetaminophen 325 mg Tablet 650 mg PO Q4H PRN PRN (Reason: Fever, pain 1-06/11) Qty: 0 0RF albuterol sulfate 2.5 mg /3 mL (0.083 %) Solution For Nebulization 2.5 mg inhalation Q2H PRN PRN (Reason: Dyspnea, wheezing) Qty: 0 0RF gabapentin 300 mg Capsule 300 mg PO TID Qty: 0 0RF menthol-zinc oxide [Calmoseptine] 0.44-20.6 % Ointment 1 applic topical 4X/DAY Qty: 0 0RF Protocol: *Topical Application Instructions APPLICATION INSTRUCTIONS: apply to affected region cefdinir 300 mg capsule 300 mg PO BID Patient Comments: started 02/01 for 7 days Culturelle 10 billion cell capsule 1 cap PO DAILY mineral oil [Fleet Mineral Oil] Enema 118 ml MN DAILY PRN (Reason: constipation) Rx Instructions: discard any unused portion magnesium hydroxide [Dulcolax (magnesium hydroxide)] 400 mg/5 mL suspension 30 ml PO DAILY PRN (Reason: constipation) oxycodone-acetaminophen 5-325 mg tablet 1 tab PO TID PRN PRN (Reason: pain) Primary Care Provider: oWlf Berry Referrals: Wolf Berry MD [Primary Care Provider] - Activity Restrictions/Additional Instructions: Please stop the Omnicef/cefdinir as the urine sample today still shows signs of infection indicating it is most likely not working. The patient does not have findings for acute kidney injury or urosepsis. I did review her urine culture from roughly 1 year ago March 11, 2024 and at that time it grew out Proteus and it was resistant to most medications except for injectable. There is high likelihood that today's urine sample/culture will grow out something similar with multiple drug-resistant bacteria. Therefore please use the IV that was left in place from the ER to provide ertapenem which was also prescribed from the ER once a day for the next 7 days. This should resolve the UTI and prevent progression to urosepsis. The patient's diarrhea is most likely related to the Omnicef use. This should improve with the cessation of the drug. If the patient develops a fever or worsening mental status or there is any further concerns that the outpatient treatment regimen is not working please have her return to the ER for repeat evaluation Print Language: Occitan Disposition Disposition: Home, Self Care Discharge Date/Time: 02/04/25 04:55
[2025-02-04 04:00] VITALS: BP 103/50; PULSE 60; PULSE 61; RESP 18; TEMP 36.7; O2SAT 96
[2025-02-04] MEDS: Ertapenem Sod 1 GM in 0.9% Normal Saline (50mL MB+) 50 ML IV (04:19)
== END 2025-02-04 04:55 | disposition skilled nursing facility (03) ==
PROVIDERS: Emergency Provider Emergency Medicine; PCP Family Medicine; Visit Provider Emergency Medicine
DX: N39.0 Urinary tract infection, site not specified (principal); J44.9 Chronic obstructive pulmonary disease, unspecified; Z68.43 Body mass index [BMI] 50.0-59.9, adult; E78.5 Hyperlipidemia, unspecified; I10 Essential (primary) hypertension; E66.9 Obesity, unspecified; Z99.81 Dependence on supplemental oxygen; Z79.51 Long term (current) use of inhaled steroids; Z79.899 Other long term (current) drug therapy
CPT/HCPCS: 71045; 80048; 81001; 83735; 83880; 85025; 87077; 87086; 87088; 87184; 87186; 87493; 87506; 87631; 96365; 96367; 99285; A4216

== ENCOUNTER 2025-08-14 03:08 | Emergency (ER) | payer MEDICARE, OTHER, MEDICAID, SELFPAY ==
[2025-08-14] VITALS (11 sets, daily range): BP systolic 107–133; BP diastolic 51–95; PULSE 60–79; RESP 12–19; TEMP 36.7–36.9; O2SAT 94–100; BMI 46.9
--- NOTE | 2025-08-14 03:17 | EKG12_ITS ---
Test Reason : DYSRHYTHMIA Blood Pressure : */* mmHG Vent. Rate : 70 BPM Atrial Rate : 70 BPM P-R Int : 206 ms QRS Dur : 86 ms QT Int : 374 ms P-R-T Axes : 81 1 31 degrees QTcB Int : 403 ms Normal sinus rhythm Normal ECG Confirmed by GUILLERMO GOODMAN, WENDY ([id number]), film editor supervisor GAUDENCIO URBINA ([id number]) on 08/16/2025 6:40:23 AM Referred By: Confirmed By: WENDY LI MD
[2025-08-14 03:32] LABS: Hematocrit 34.4 % (37-47); Hemoglobin 10.3 g/dL (12.0-15.0); Immature Granulocytes Count 0.110 X10^3/uL (0.0-0.0); Mean Corp Hgb Conc 29.9 g/dL (32-36); Mean Corpuscular Volume 97.2 fL (81-99); Mean Platelet Vol. 9.8 fl (6.2-12.0); NRBC Flagged by Analyzer 0 % (0-5); Platelet Count 330 K/mm3 (150-450); RBC Distribution Width CV 13.6 % (11.6-14.6); RBC Distribution Width SD 49.1 fl (35.1-43.9); Red Blood Count 3.54 M/mm3 (4.2-5.4); White Blood Count 9.1 K/mm3 (4.4-11.0)
[2025-08-14] MEDS: 0.9% Normal Saline (500mL Bag) 500 ML 999 ML IV (03:35)
--- NOTE | 2025-08-14 03:35 | RAD_ITS ---
PROCEDURE: CHEST 1 VIEW (PORTABLE) 08/14/2025 REASON FOR EXAM: SHORTNESS OF BREATH CONCERN TECHNIQUE: Frontal view of the chest. COMPARISON: 02/04/2025. FINDINGS: Unremarkable median sternotomy wires. Mild bilateral basilar atelectatic pulmonary changes/infiltrates, less prominent than the prior exam. Unchanged retrocardiac hiatal hernia. There is no demonstrated pleural abnormality. Enlarged cardiac silhouette. Normal mediastinum and garrett. Normal visualized pulmonary arteries. Atheromatous plaques of the visualized aortic arch and descending thoracic aorta. Diffuse spondylosis of the visualized thoracic spine. Normal visualized ribs, clavicles. Degenerative joint disease. There is no demonstrated abnormality of the visualized soft tissue structures of the upper abdomen. RAD/Chest 1 View (Portable) IMPRESSION: Unremarkable median sternotomy wires. Mild bilateral basilar atelectatic pulmonary changes/infiltrates, less prominen t than the prior exam. Reading [facility]
--- OUTSIDE RECORDS SUMMARY | 2025-08-14 03:39 | XMS RPT_ITS | CCD ---
Author Organization [facility] Inform ion Partnership [facility] Care Team Providers Care Assistant Dean Name Role Phone Tanna Jones Unavailable Christopher Driver Unavailable Unavailable Lyly Mata LPN Unavailable Wolf Berry Primary Care Provider UnavailWolf lFores Referring Provider Unavailable Dr. Luiz Land Attending Provider [phone] Wolf Berry Primary Care Provider Unavailabl Dr. Luiz Dawn Attending Provider [phone] Luiz Land Referring Provider [phone] Wolf Berry Referring Provider Unavailable Roof SOFT METALS HAND ENGRAVER, SOFT METALS HAND ENGRAVER-Lindsay Lemus Attending Provider Dr. Vikas Ray Emergency [...] GOODMAN, Dr. Bloom Primary Care Provider Magdaleno URIBE, Dr. Diop Attending Provider Meir URIBE, Dr. Montoya Referring Provider Alejandra CEBALLOS, Dr. Perla Referring Provider Dr. Pan Roberts DO Emergency Provider Valerie GOODMAN, Dr. Kay Alvarez Admit Provider Valerie GOODMAN, Dr. Kay Alvarez Other Provider Magdaleno URIBE, Dr. Diop Other Provider Dr. Alfred Watson DO Attending Provider Dr. Alfred Watson DO Other Provider Dr. Wolf Berry MD Primary Care Provider Magdaleno URIBE, Dr. Diop Attending Provider Meir URIBE, Dr. Montoya Referring Provider Dr. Wolf Berry MD Referring Provider Frances Valle Attending Provider Frances aVlle Referring Provider Dr. Cornelius Rhoades DO Emergency Provider Jamal GOODMAN, Dr. Bloom Primary Care Provider [phone] Dr. Cornelius Rhoades DO Attending Provider Jamal GOODMAN, Dr. Bloom Primary Care Provider Frances Valle Attending Provider Jamal GOODMAN, Dr. Bloom Referring Provider David SOFT METALS HAND ENGRAVER-CNeisha Attending Provider [phone] Berry, Wolf Referring Unavailable Berry, Wolf Primary Care Unavailable AtanasovFrances Attending Unavailable Berry, Wolf Referring Unavailable Berry, Wolf Primary Care Unavailable AtanasFrances aguilar Attending Unavailable Berry, Wolf Referring Unavailable Berry, Wolf Primary Care Unavailable AtaFrances ga Attending Unavailable Jadon Dolan Consulting Unavailable Alejandra, Pan Referring Unavailable White, Kay L Admitting Unavailable Berry, Wolf Primary Care Unavailable Alfred Watson Attending Unavailable White, Kay L Consulting Unavailable Pepe Goode Attending Unavailable Berry, Wolf Primary Care Unavailable Jadon Dolan Attending Unavailable Berry, Wolf Primary Care Unavailable Wunning, Jan Referring Unavailable Wunning, Jan Referring Unavailable Jadon Dolan Attending Unavailable Berry, Wolf Primary Care Unavailable Wunning, Jan Referring Unavailable Jadon Dolan Attending Unavailable Berry, Wolf Primary Care Unavailable Berry, Wolf Referring Unavailable Berry, Wolf Primary Care Unavailable Neisha Hernandez NP Attending Unavailable Berry, Wolf Primary Care Unavailable Wunning, Jan Attending Unavailable Berry, Wolf Primary Care Unavailable Wunning, Jan Referring Unavailable Wunning, Jan Attending Unavailable Berry, Wolf Referring Unavailable Berry, Wolf Primary Care Unavailable Frances Roman Attending Unavailable Luiz Land Attending Unavailable Wunning, Jan Referring Unavailable Berry, Wolf Primary Care Unavailable Alejandra, Pan Referring Unavailable White, Kay L Attending Unavailable White, Kay L Consulting Unavailable White, Kay L Admitting Unavailable Berry, Wolf Primary Care Unavailable Jadon Dolan Consulting Unavailable TerAlfred fernando Attending Unavailable TereletsAlfred mccloud Consulting Unavailable Berry, Wolf Referring Unavailable Berry, Wolf Primary Care Unavailable Karthik Garcia Attending Unavailable Berry, Wolf Primary Care Unavailable Frances Roman Attending Unavailable Frances Roman Referring Unavailable Wunning, Jan Referring Unavailable Jadon Dolan Attending Unavailable Berry, Wolf Primary Care Unavailable Jadon Dolan Attending Unavailable Berry, Wolf Primary Care Unavailable Jan Worley Referring Unavailable Jan Wolrey Referring Unavailable Berry, Wolf Primary Care Unavailable Jan Worley Attending Unavailable Cornelius Rhoades Attending Unavailable Berry, Wolf Primary Care Unavailable Berry, Wolf Primary Care Unavailable Choco SOFT METALS HAND ENGRAVER, Saloni Attending Unavailable Choco SOFT METALS HAND ENGRAVER, Saloni Referring Unavailable TAMMIE ROSE Attending Unavailable SELF Referring Unavailable BERRY, WOLF R Primary Care Unavailable SELF Referring Unavailable BERRY, WOLF R Primary Care Unavailable SELF Referring Unavailable BERRY, WOLF R Primary Care Unavailable THADDEUS GARCIA Attending Unavailable SELF Referring Unavailable BERRY, WOLF R Primary Care Unavailable Allergies Allergy Classification Reported Allergen(s) Allergy Type Date of Onset Reaction(s) Facility (3 sources) Nitrofurantoin Drug Allergy 01-04-20 11 Flu like symptoms [facility] [employer] Work Phone: (11 sources) Amoxicillin; Translations: [AMOXICILLIN] Drug Allergy 05-20-20 20 Nausea/Vom/Destinee [facility] [place] (11 sources) Clavulanate; Translations: [CLAVULANIC ACID] Drug Allergy 05-20-20 20 Nausea/Vom/Destinee [facility] [place] (10 sources) Morphine Drug Allergy 06-14-20 22 unknown [facility] (11 sources) Sulfamethoxazole; Translations: [SULFAMETHOXAZOLE] Drug Allergy 05-20-20 20 Nausea/Vom/Desitnee [facility] [place] (11 sources) Trimethoprim; Translations: [TRIMETHOPRIM] Drug Allergy 05-20-20 20 Nausea/Vom/Destinee [facility] [place] (11 sources) nitrofurantoin macrocrystalline; Translations: [nitrofurantoin macrocrystalline] Propensity to adverse reactions 06-14-20 22 Vomiting [facility] (1 source) Amoxicillin Drug Allergy 05-04-20 [facility] Repository (1 source) Clavulanate Drug Allergy 05-04-20 [facility] Repository (1 source) Morphine Drug Allergy 05-04-20 [facility] Repository (1 source) Sulfamethoxazole Drug Allergy 05-04-20 [facility] Repository (1 source) Trimethoprim Drug Allergy 05-04-20 [facility] Repository (1 source) Morphine; Translations: [MORPHINE SULFATE] Drug Allergy 12-23-19 10 [facility] Repository (1 source) Nitrofurantoin; Translations: [NITROFURANTOIN] Drug Allergy 12-23-19 10 [facility] Repository mg ORAL q 8 H - methadone [...] April 19, 2020 TIME: 2:12 PM Pager: [phone] [facility] PROGRESS HNO ID: [id number] Author: Alyson Thomas Service: Pain Management Author Type: Physician Type: Progress Notes Filed: 04/19/2020 9:07 AM Note Text: Name: PATRICIA HAWLEY Age: [age] year old PAIN MANAGEMENT: Acute on chronic back pain, T11-12, T12-L1 osteomyelitis/discitis; multilevel degenerative disc disease Pain Description: Intermittent [...] Subjective HPI: 75-year-old female was transferred from [facility] after diagnostic work-up demonstrated T12-L1 discitis/osteomyelitis and possible malignant infiltration. Patient initially presented [...] malignant infiltration of T12-L1 Patient lives at [facility] with her who is wheelchair-bound. Pain regimen confirmed to [facility] and includes gabapentin 100 mg 3 times [...] wheelchair-bound. OARRS Review: Negative. Does not reflect [facility] pain regimen as documented above Current Facility-Administered [...] AT BEDTIME Jasmina Hazel 0.5 mg at 04/18/202009 - metoprolol succinate ER 50 mg tab(s) (TOPROL XL) 50 mg ORAL DAILY [facility] 50 mg at 04/18/20 0854 - citalopram 20 mg tab(s) (CeleXA) 20 mg ORAL DAILY Naar Pinto 20 mg at 04/18/20 0854 - DULoxetine 30 mg cap(s) (CYMBALTA) 30 mg ORAL DAILY Naar Pinto 30 mg at 04/18/20 0854 - sertraline 100 mg tab(s) (ZOLOFT) 100 mg ORAL DAILY Naar Pinto 100 mg at 04/18/20 0854 - ferrous sulfate 325 mg tab(s) 325 mg ORAL TID w MEALS [facility] 325 mg at 04/18/20 1555 - albuterol 2.5 mg /3 mL (0.083 %) 2.5 mg (PROVENTIL) 3 mL INHALATION q 6 H PRN [facility] - enoxaparin 40 mg injection (LOVENOX) 40 mg SUBCUTANEOUS DAILY [facility] 40 mg at 04/18/20 0854 - sodium chloride 0.9 % (flush) 3-5 mL (BD POSIFLUSH) 3-5 mL INTRAVENOUS q 12 H [facility] 5 mL at 04/18/202010 - ondansetron 4 mg tab(s) (ZOFRAN) 4 mg ORAL q 6 H PRN Naar Pinto 4 mg at 04/14/20 0951 Or - ondansetron (PF) 4 mg injection (ZOFRAN) 4 mg INTRAVENOUS q 6 H PRN Naar Pinto 4 mg at 04/17/20 1653 - acetaminophen 650 mg tab(s) (TYLENOL) 650 mg ORAL q 6 H PRN Naar Pinto 650 mg at 04/18/20 0853 - atorvastatin 10 mg tab(s) (LIPITOR) 10 mg ORAL AT BEDTIME [facility] 10 mg at 04/18/202009 - docusate sodium [...] mouth once daily., Disp: , Rfl: - Multivitamins-Minerals- Lutein (CENTRUM SILVER) Tab, Take 1 tablet by mouth once daily., Disp: , Rfl: - DULoxetine (CYMBALTA) 30 mg capsule, Take 1 a day for 2 weeks, then increase to 2 pills a day., Disp: 60 capsule, Rfl: 3 - LISINOPRIL-HYDROCHLOROT HIAZIDE 10-12.5 mg ORAL per tablet, 1 tablet once daily., Disp: , Rfl: - metoprolol succinate ER (TOPROL XL) 50 mg 24 hr tablet, Take 50 mg by mouth once daily. , Disp: , Rfl: - oxyCODONE-acetaminophen (PERCOCET) 5-325 mg ORAL tablet, Take 1 [...] kg/m? BMI 42.32 kg/(m2) Date 04/16/20699 - 04/17/20658 Shift 4569-6209 9907-4421 7775-3073 24 Hour Total INTAKE PO 240 240 Shift Total 240 240 OUTPUT Shift Total Weight (kg) 96.9 96.9 96.9 96.9 Date 04/15/20699 - 04/16/2065804/16/20699 - 04/17/20658 Shift 5487-5400 0134-6583 7379-5174 24 Hour Total 7207-8450 3423-4008 5784-9221 24 Hour Total INTAKE PO 240 240 PO 240 240 Shift Total 240 240 OUTPUT Urine 2358 760 0541 Void (ml) 850 850 Urine Incontinence/Not Saved 1 x 1 x Output ( External Collection Device 04/13/20 2225) 885 753 2650 # of BMs Stool Incontinence 2 x 2 x Shift Total 9020 923 3691 Weight (kg) 100.2 99.3 96.9 96.9 96.9 96.9 96.9 96.9 ABNORMAL/NEW FINDINGS: NONE RADIOLOGY/DIAGNOSTICS: LABORATORY: CBC: No results for input(s): WBC, [...] dependent prior to admission Pain regimen at [facility] reviewed and as documented above Tylenol 650 mg every 6 hours PRN Cymbalta 30 mg daily Gabapentin 100 mg every 8 hours Methadone 15 mg every a.m., 10 mg every p.m. and 10 mg at bedtime Oxycodone 5 mg every 4 hours PRN Senna S twice daily Alyson Thomas MD Normal [facility] Surgical Tissue Examon 04-19 Surgical Tissue Exam Test performed at [place] [address] NAME: PATRICIA HAWLEY REQUESTING: MARIA EUGENIA QURESHI [...] bone biopsy are multiple irregular-shaped segments of wallace-red soft tissue aggregating to 0.2 x 0.2 x 0.1 cm. The specimen is totally submitted in formalin in 1 cassette. MICKEY/cliff FLOWER M.D. PATHOLOGIST (Electronic signature on file) Signed out: 04/20/2020 14:55 PRINTED: 04/20/2020 Page 1 of 1 Normal [facility] Comment on above: Performed By: #### B MP #### [place] [address] Basic Metabolic Panelon 04-02 Anion gap [Moles/Vol] 11 mmol/L Normal 9-18 [facility] Comment on above: Performed By: #### B MP #### [place] [address] Calcium [Mass/Vol] 9.1 mg/dL Normal 8.5-10.2 [facility] Comment on above: Performed By: #### B MP #### [address] [address] Chloride [Moles/Vol] 100 mmol/L Normal 97-105 [facility] Comment on above: Performed By: #### B MP #### [address] [address] CO2 Blood 29 mmol/L Normal 22-30 [facility] Comment on above: Performed By: #### B MP #### [place] [address] Creatinine [Mass/Vol] 1.05 mg/dL High 0.58-0.96 [facility] Comment on above: Performed By: #### B MP #### [address] [address] Glucose [Mass/Vol] 92 mg/dL Normal 74-99 [facility] Comment on above: Result Comment: The [employer] Diabetes Association (ADA) provides guidance for cutoff [...] Standards of Medical Care in Diabetes 2016; [employer]. Diabetes Care. 2016;39(Suppl 1). Performed By: #### B MP #### [place] [address] Potassium [Moles/Vol] 3.9 mmol/L Normal 3.7-5.1 [facility] Comment on above: Performed By: #### B MP #### [address] [address] Sodium [Moles/Vol] 140 mmol/L Normal 136-144 [facility] Comment on above: Performed By: #### B MP #### [address] [address] Urea nitrogen [Mass/Vol] 26 mg/dL High 7-21 [facility] Comment on above: Performed By: #### B MP #### [address] [address] CASE MANAGEMon 04-18-2020 CASE MANAGEM HNO ID: [id number] Author: María Aaron) KIRK Mccall Service: Care Management Author Type: Registered Nurse Type: Care Mgt Progress Note Filed: 04/18/2020 3:23 PM Note Text: CARE MANAGEMENT PROGRESS NOTE SERVICE DATE: 04/18/2020 SERVICE TIME: 11:08 AM LOS: 4 days Chart reviewed, awaiting biopsy in today, then possible surgery with neurosurgery. Discharge plan to return to the [facility] by . SIGNATURE: María Mccall RN PATIENT NAME: Patricia Hawley DATE: April 18, 2020 TIME: 11:08 AM PAGER/CONTACT #: [phone] [facility] CONSULT PROGon 04-18-2020 CONSULT PROG HNO ID: [id number] Author: Giovani Shin Service: Infectious Disease Author Type: Physician Type: Consult Progress Note Filed: 04/18/2020 4:32 PM Note Text: PROGRESS NOTE INFECTIOUS DISEASE BRIEF SUMMARY: 74F h/o spinal stenosis s/p T12-L5 decompressive bilateral laminectomy with foraminotomies from T12-L5 for decompression. Presented to [facility]SH ([facility]) on 04/12/20 for R flank pain found to have UTI + hydronephrosis, transferred to [facility] 04/14/20 because of worsening paresthesias of legs, [...] $ >=8 R Nitrofurantoin $ <=16 S Piperacillin/Tazobactam $$ 8 S Tobramycin $ 8 I Trimethoprim/Sulfametho $ >=320 R Reference Range: S= Susceptible, I= Intermediate, R= Resistant MICS are expressed in micrograms per mL Giovani Shin MD Infectious Disease Respiratory [place] Pager: [phone] Normal [facility] PROGRESSon 04-18-2020 PROGRESS HNO ID: [id number] Author: Jasmina Oakley Service: Hospital Medicine Author Type: Physician Type: Progress Notes Filed: 04/19/2020 8:15 PM Note Text: DEPARTMENT OF HOSPITAL MEDICINE PROGRESS NOTE SERVICE DATE: 04/18/2020 SERVICE TIME: 9:00 PM Hospital Medicine/Primary Attending: Jasmina Oakley MD NIGHT AND WEEKEND COVERAGE: After 7pm please page [phone] CHIEF COMPLAINT: Back pain. SUBJECTIVE: Reports pain [...] skin discoloration. BACK: No tenderness. NEURO: AA coherent.??Strength-?we akness in bilateral dorsiflexion and plantar flexors?.???Reflex decrease [...] of hospital for the concern of vertebral discitis/osteomyelitis. ? She has: ? 1.??Chronic destruction at [...] 18, 2020 TIME: 9:00 PM PAGER/CONTACT #: [phone] Normal [facility] PROGRESS HNO ID: [id number] Author: Ghislaine (David) Ceci Service: Neurosurgery Author [...] Therapy: Nasal Cannula IANDO: Date 04/17/20699 - 04/18/2065804/18/20699 - 04/19/20 0659 Shift 5911-4926 6083-6045 9697-5882 24 Hour Total 9578-0834 4204-9173 6587-2630 24 Hour Total INTAKE Shift Total OUTPUT Urine 753 838 2682 Void (ml) 062 138 8645 Urine Incontinence/Not Saved 1 x 1 x Urine Not Saved. 1 x 1 x # of BMs Stool Incontinence 1 x 1 x 2 x Number of BMs 1 x 1 x 1 x 3 x 1 x 1 x Shift Total 049 300 8890 Weight (kg) 97.1 98.1 98.1 98.1 98.1 [...] RUE D 4/5 B 4/5 T 4/5 [place] 4/5 LUE D 4/5 B 4/5 T 4/5 Gal[place] 4/5 RLE HF 2/5 KE 3/5 KF [...] DATE: April 18, 2020 TIME: 10:15 AM [facility] PROGRESS HNO ID: [id number] Author: Harpreet Wade Service: Pain Management Author Type: Physician Type: Progress Notes Filed: 04/18/2020 12:51 PM Note Text: Name: PATRICIA HAWLEY Age: [age] year old PAIN MANAGEMENT: Acute on chronic back pain, T11-12, T12-L1 osteomyelitis/discitis; multilevel degenerative disc disease Pain Description: Intermittent [...] Subjective HPI: 75-year-old female was transferred from [facility] after diagnostic work-up demonstrated T12-L1 discitis/osteomyelitis and possible malignant infiltration. Patient initially presented [...] malignant infiltration of T12-L1 Patient lives at [facility] with her who is wheelchair-bound. Pain regimen confirmed to [facility] and includes gabapentin 100 mg 3 times [...] wheelchair-bound. OARRS Review: Negative. Does not reflect [facility] pain regimen as documented above Current Facility-Administered [...] mg ORAL q 4 H PRN Alyson Johansen Sc[place] 5 mg at 04/17/20 1653 - senna-docusate 8.6-50 mg 1 tablet (SENNA-S) 1 tablet ORAL BID Alyson Johansen [place] 1 tablet at 04/17/202120 - hydrALAZINE [...] w MEALS Nauhar Pinto 325 mg at 04/17/20 1510 - albuterol 2.5 mg /3 mL (0.083 %) 2.5 mg (PROVENTIL) 3 mL INHALATION q 6 H PRN Nauhar Pinto - enoxaparin 40 mg injection (LOVENOX) 40 mg SUBCUTANEOUS DAILY Nauhar Pinto 40 mg at 04/17/20 0837 - sodium chloride 0.9 % (flush) 3-5 mL (BD POSIFLUSH) 3-5 mL INTRAVENOUS q 12 H Nauhar Pinto 5 mL at 04/17/202121 - ondansetron 4 mg tab(s) (ZOFRAN) 4 mg ORAL q 6 H PRN Nauhar Pinto 4 mg at 04/14/20 0951 Or - ondansetron (PF) 4 mg injection (ZOFRAN) 4 mg INTRAVENOUS q 6 H PRN Nauhar Pinto 4 mg at 04/17/20 1653 - acetaminophen 650 mg tab(s) (TYLENOL) 650 mg ORAL q 6 H PRN Nauhar Pinto 650 mg at 04/16/20 0024 - atorvastatin 10 mg tab(s) (LIPITOR) 10 mg ORAL AT BEDTIME Nauhar Pinto 10 mg at 04/17/202120 - docusate sodium [...] mouth once daily., Disp: , Rfl: - Multivitamins-Minerals- Lutein (CENTRUM SILVER) Tab, Take 1 tablet by mouth once daily., Disp: , Rfl: - DULoxetine (CYMBALTA) 30 mg capsule, Take 1 a day for 2 weeks, then increase to 2 pills a day., Disp: 60 capsule, Rfl: 3 - LISINOPRIL-HYDROCHLOROT HIAZIDE 10-12.5 mg ORAL per tablet, 1 tablet once daily., Disp: , Rfl: - metoprolol succinate ER (TOPROL XL) 50 mg 24 hr tablet, Take 50 mg by mouth once daily. , Disp: , Rfl: - oxyCODONE-acetaminophen (PERCOCET) 5-325 mg ORAL tablet, Take 1 [...] kg/(m2) Date 04/16/20699 - 04/17/20 0659 Shift 5558-3040 4795-9421 1232-0097 24 Hour Total INTAKE PO 240 240 Shift Total 240 240 OUTPUT Shift Total Weight (kg) 96.9 96.9 96.9 96.9 Date 04/15/20699 - 04/16/2065804/16/20699 - 04/17/20 0659 Shift 4864-1341 2590-6701 1636-1438 24 Hour Total 8114-2474 4177-3418 8624-8720 24 Hour Total INTAKE PO 240 240 PO 240 240 Shift Total 240 240 OUTPUT Urine 7247 256 8056 Void (ml) 850 850 Urine Incontinence/Not Saved 1 x 1 x Output ( External Collection Device 04/13/20 2225) 639 307 6326 # of BMs Stool Incontinence 2 x 2 x Shift Total 3628 290 9318 Weight (kg) 100.2 99.3 96.9 96.9 96.9 96.9 96.9 96.9 ABNORMAL/NEW FINDINGS: NONE RADIOLOGY/DIAGNOSTICS: LABORATORY: CBC: No results for input(s): WBC, [...] IR guided biopsy pending- either Sat or Tu. 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 and 10 mg at bedtime Oxycodone 5 mg every 4 hours PRN Senna S twice daily Harpreet Wade M.D. Normal [facility] THERAPY NTon 04-18-2020 THERAPY NT HNO ID: [id number] Author: Noa (Ot/L) Kelly Service: ? Author Type: Occupational Therapist Type: Therapy (PT/OT/Speech/Resp) Filed: 04/18/2020 4:11 PM Note Text: Occupational Therapy Evaluation SERVICE DATE: 04/18/2020 SERVICE TIME: 1544 to 1600 ROOM: [id number] Recommended Discharge Disposition: Subacute/SNF Recommended Discharge Disposition Comments: Recommend patient return to prior setting with initiation of therapy services to maximize independence with basic self-care tasks and functional mobility. Justification For Post Acute Needs: Anticipate that patient will require daily (5x/wk) skilled therapy in a post-acute facility setting at the time of acute hospital discharge;Motivated;Robert ling to participate OT Recommendations to Nursing: Encourage patient participation with in-bed ADL?s;Not appropriate for out of bed activity at this time OT 6 Clicks Score: 12 Precautions/Activity Restrictions: Fall Risk;Lines/Tubes/Drains Isolation Type: None ASSESSMENT: Patient admitted from [...] Interventions: Education;Self Care / Home Management;Energy Conservation Training;Strengthening; Functional Mobility Training Plan of Care developed with: Patient TREATMENT INTERVENTIONS: Therapy Diagnosis: Reduced mobility-other;Decrease d activities of daily living (ADL);Muscle Weakness (generalized);Unsteadin ess on feet;General symptoms and signs-other Interventions Provided: Evaluation $ Evaluation-Moderate (52045) Billed Units: 1 unit OT Evaluation Moderate [...] reviewed; 74 year old female transferred from [facility] with complaints of R sided flank/back [...] myself. Pleasant and willing to participate. Pain: 03/11 back Home Environment Patient Lives With: Spouse;Facility Care([facility]) Assistance Available: 24 Hour Entry To Home: No Stairs Number Of Stairs To Bed/Bath: 0 Tub/Shower Type: walk in/roll in Laundry: staff completes Equipment Owned: (electric w/c; slide board or sling lift) Prior Functional Level: Required Assistance;Within Functional Limits Assistance Required With: Transfers;Self Care;Cleaning;Laundry;M eals;Stairs;Transportat ion;Wheelchair Mobility;Shopping Prior Functional Level Comments: Patient reports she required assist with all ADLs, total assist for IADls, used power wheelchair and transferred via jareth or slideboard. OBJECTIVE: Cognition/Communication Deficits Orientation Deficits: Not oriented to Place(States she is at [facility]) Responsiveness: Alert;Awake Follows Commands: 2-step Commands;Cueing Needed Cueing to Follow Commands: Minimum Memory Deficits: Short Term Executive Function Deficits: Problem Solving;Safety Awareness;Judgement;Ins ight to Deficits Judgement Deficit: Minimal impairment Insight [...] details for this therapy evaluation/treatment. SIGNATURE: MADDIE Clay/Alma PATIENT NAME: Patricia Hawley DATE: April 18, 2020 TIME: 4:06 PM Normal [facility] Basic Metabolic Panelon 04-02 Anion gap [Moles/Vol] 11 mmol/L Normal -18 [facility] Comment on above: Performed By: #### B MP #### [facility] [address] [place], [place] [address] Calcium [Mass/Vol] 9.3 mg/dL Normal 8.5-10.2 [facility] Comment on above: Performed By: #### B MP #### [facility] [address] [place], [place] [address] Chloride [Moles/Vol] 97 mmol/L Normal 97-105 [facility] Comment on above: Performed By: #### B MP #### [facility] [address] [place], [place] [address] CO2 Blood 31 mmol/L High 22-30 [facility] Comment on above: Performed By: #### B MP #### [facility] [address] [place], [place] [address] Creatinine [Mass/Vol] 1.22 mg/dL High 0.58-0.96 [facility] Comment on above: Performed By: #### B MP #### [facility] [address] [place], [place] [address] Glucose [Mass/Vol] 78 mg/dL Normal 74-99 [facility] Comment on above: Result Comment: The [employer] (ADA) provides guidance for cutoff [...] Standards of Medical Care in Diabetes 2016; [place] [employer]. Diabetes Care. 2016;39(Suppl 1). Performed By: #### B MP #### [facility] [address] [place], [place] [address] Potassium [Moles/Vol] 4.2 mmol/L Normal 3.7-5.1 [facility] Comment on above: Performed By: #### B MP #### [facility] [address] [place], [place] [address] Sodium [Moles/Vol] 139 mmol/L Normal 136-144 [facility] Comment on above: Performed By: #### B MP #### [facility] [address] [place], [place] [address] Urea nitrogen [Mass/Vol] 28 mg/dL High 7-21 [facility] Comment on above: Performed By: #### B MP #### [facility] [address] [place], [place] [address] ECG COMPLETEon 04-17-2020 ECG COMPLETE NAME : PATRICIA HAWLEY PID : [id number] : 1945 Gender : Female Race : ORD : [id number] Procedure Date : Apr 17 2020 18:19:46 Edit Date : Apr 18 2020 15:47:50 Diagnosis:NORMAL SINUS RHYTHM MODERATE VOLTAGE CRITERIA FOR LVH, MAY BE NORMAL VARIANT BORDERLINE ECG WHEN COMPARED WITH ECG OF 07-MAY-2013 21:10, NO SIGNIFICANT CHANGE WAS FOUND Confirmed by MD HELMS SACHIN ([id number]) on 04/18/2020 3:47:45 PM Ventricular Rate : 77 BPM Atrial Rate : 77 BPM P-R Interval : 162 ms QRS Duration : 74 ms Q-T Interval : 394 ms QTC Calculation(Bazett) : 445 ms P [place] : 15 degrees R [place] : -10 degrees T [place] : 14 degrees Test Reason : Arrhythmia Location : 81 : [id number] Overread By : MD HELMS SACHIN Edited By : MD HELMS SACHIN Referred By : LUNA HAWLEY Acquired by : SANG BRYAN [facility] NURSING PROGon 04-17-2020 NURSING PROG HNO ID: [id number] Author: Saloni (Rn) KIRK Winter Service: ? Author Type: Registered Nurse Type: Nursing Progress Note Filed: 04/17/2020 2:15 PM Note Text: Nursing Progress Note Patient Name: Patricia Hawley Patient Location: [id number]/[id number] Daily Note: Spoke with pt daughter at this time, updating her on her mother. Per the daughter would like a call if a time is set for pt procedure. This note was completed by: Saloni Winter RN [facility] PROGRESSon 04-17-2020 PROGRESS HNO ID: [id number] Author: Jasmina Oakley Service: Hospital Medicine Author Type: Physician Type: Progress Notes Filed: 04/19/2020 8:18 PM Note Text: DEPARTMENT OF HOSPITAL MEDICINE PROGRESS NOTE SERVICE DATE: 04/17/2020 SERVICE TIME: 7:00 PM Hospital Medicine/Primary Attending: Jasmina Oakley MD NIGHT AND WEEKEND COVERAGE: After 7pm please page [phone] CHIEF COMPLAINT: back pain. UTI SUBJECTIVE: Back [...] of hospital for the concern of vertebral discitis/osteomyelitis. ? She has: ? 1.??Chronic destruction at [...] 17, 2020 TIME: 7:00 PM PAGER/CONTACT #: [phone] [facility] PROGRESS HNO ID: [id number] Author: Alyson Thomas Service: Pain Management Author Type: Physician Type: Progress Notes Filed: 04/17/2020 2:00 PM Note Text: Name: PATRICIA HAWLEY Age: [age] year old PAIN MANAGEMENT: Acute on chronic back pain, T11-12, T12-L1 osteomyelitis/discitis; multilevel degenerative disc disease Pain Description: Intermittent [...] Subjective HPI: 75-year-old female was transferred from [facility] after diagnostic work-up demonstrated T12-L1 discitis/osteomyelitis and possible malignant infiltration. Patient initially presented [...] malignant infiltration of T12-L1 Patient lives at [facility] with her who is wheelchair-bound. Pain regimen confirmed to [facility] and includes gabapentin 100 mg 3 times [...] wheelchair-bound. OARRS Review: Negative. Does not reflect [facility] pain regimen as documented above Current Facility-Administered [...] 12.5 mg 12.5 mg ORAL DAILY Jasmina Maddenudhary 12.5 mg at 04/17/20 0836 - oxyCODONE [...] mg cap(s) (CYMBALTA) 30 mg ORAL DAILY [facility] 30 mg at 04/17/20 0837 - sertraline 100 mg tab(s) (ZOLOFT) 100 mg ORAL DAILY [facility] 100 mg at 04/17/20 0837 - ferrous sulfate 325 mg tab(s) 325 mg ORAL TID w MEALS [facility] 325 mg at 04/17/20 1124 - albuterol 2.5 mg /3 mL (0.083 %) 2.5 mg (PROVENTIL) 3 mL INHALATION q 6 H PRN [facility] - enoxaparin 40 mg injection (LOVENOX) 40 mg SUBCUTANEOUS DAILY [facility] 40 mg at 04/17/20 0837 - sodium chloride 0.9 % (flush) 3-5 mL (BD POSIFLUSH) 3-5 mL INTRAVENOUS q 12 H [facility] 3 mL at 04/17/20 0837 - ondansetron 4 mg tab(s) (ZOFRAN) 4 mg ORAL q 6 H PRN [facility] 4 mg at 04/14/20 0951 Or - ondansetron (PF) 4 mg injection (ZOFRAN) 4 mg INTRAVENOUS q 6 H PRN [facility] - acetaminophen 650 mg tab(s) (TYLENOL) 650 mg ORAL q 6 H PRN [facility] 650 mg at 04/16/20 0024 - atorvastatin 10 mg tab(s) (LIPITOR) 10 mg ORAL AT BEDTIME [facility] 10 mg at 04/16/202000 - docusate sodium [...] mouth once daily., Disp: , Rfl: - Multivitamins-Minerals- Lutein (CENTRUM SILVER) Tab, Take 1 tablet by mouth once daily., Disp: , Rfl: - DULoxetine (CYMBALTA) 30 mg capsule, Take 1 a day for 2 weeks, then increase to 2 pills a day., Disp: 60 capsule, Rfl: 3 - LISINOPRIL-HYDROCHLOROT HIAZIDE 10-12.5 mg ORAL per tablet, 1 tablet once daily., Disp: , Rfl: - metoprolol succinate ER (TOPROL XL) 50 mg 24 hr tablet, Take 50 mg by mouth once daily. , Disp: , Rfl: - oxyCODONE-acetaminophen (PERCOCET) 5-325 mg ORAL tablet, Take 1 [...] kg/m? BMI 41.79 kg/(m2) Date 04/16/20699 - 04/17/20 0659 Shift 2516-2096 5696-8944 0014-6979 24 Hour Total INTAKE PO 240 240 Shift Total 240 240 OUTPUT Shift Total Weight (kg) 96.9 96.9 96.9 96.9 Date 04/15/20699 - 04/16/2059 04/16/20699 - 04/17/20 0659 Shift 7127-4706 2013-7278 6243-0350 24 Hour Total 4686-7932 9430-4253 0306-9878 24 Hour Total INTAKE PO 240 240 PO 240 240 Shift Total 240 240 OUTPUT Urine 6340 316 0557 Void (ml) 850 850 Urine Incontinence/Not Saved 1 x 1 x Output ( External Collection Device 04/13/205) 493 035 9363 # of BMs Stool Incontinence 2 x 2 x Shift Total 4939 688 6160 Weight (kg) 100.2 99.3 96.9 96.9 96.9 96.9 96.9 96.9 ABNORMAL/NEW FINDINGS: NONE RADIOLOGY/DIAGNOSTICS: LABORATORY: CBC: No results for input(s): WBC, [...] dependent prior to admission Pain regimen at [facility] reviewed and as documented above Tylenol 6 and 50 mg every 6 hours PRN Cymbalta 30 mg daily Gabapentin 8 100 mg every 8 hours Methadone 15 mg every a.m., 10 mg every p.m. and 10 mg at bedtime Oxycodone 5 mg every 4 hours PRN Senna S twice daily Alyson Thomas MD [facility] PROGRESS HNO ID: [id number] Author: Rylee Wu (Bon) BON Lora Service: Neurosurgery Author Type: Physician Lathe Machine Operator Type: Progress Notes Filed: 04/17/2020 9:21 AM [...] Therapy: Room Air IANDO: Date 04/16/20699 - 04/17/2059 04/17/20699 - 04/18/20 0659 Shift 0095-4286 4409-7040 3841-4551 24 Hour Total 6958-5009 6024-0863 7077-4783 24 Hour Total INTAKE PO 240 50 [...] than right; moves BUE well with weak contact person/intrinsics though feeding herself without issue HEENT: normocephalic, atraumatic LUNGS: Unlabored breathing SKIN: Skin color, texture, turgor normal, No rashes or lesions ASSESSMENT AND PLAN: Active Hospital Problems Diagnosis Date Noted - UTI (urinary tract infection) 04/14/2020 75 year old female advanced OM - destructive T12/L1 lesion - neuro stable - to go to IR on Mon or for biopsy - pain control - PM on board - plan pending based on IR findings SIGNATURE: BON Roberts PATIENT NAME: Patricia Hawley DATE: April 17, 2020 TIME: 9:16 AM Pager: [phone] Normal [facility] CONSULTon 04-16-2020 CONSULT HNO ID: [id number] Author: Alyson Thomas Service: Pain Management Author Type: Physician Type: Consults Filed: 04/16/2020 7:25 PM Note Text: Name: PATRICIA HAWLEY Age: [age] year old PAIN MANAGEMENT: Acute on chronic back pain, T11-12, T12-L1 osteomyelitis/discitis; multilevel degenerative disc disease Pain Description: Patient [...] Subjective HPI: 75-year-old female was transferred from [facility] after diagnostic work-up demonstrated T12-L1 discitis/osteomyelitis and possible malignant infiltration. Patient initially presented [...] malignant infiltration of T12-L1 Patient lives at [facility] with her who is wheelchair-bound. Pain regimen confirmed to [facility] and includes gabapentin 100 mg 3 times [...] wheelchair-bound. OARRS Review: Negative. Does not reflect [facility] pain regimen as documented above Current Facility-Administered [...] (DOLOPHINE) 10 mg ORAL DAILY (10PM) Jasmina Maddenudhary 10 mg at 04/15/20 2124 - LORazepam 0.5 mg tab(s) (ATIVAN) 0.5 mg ORAL AT BEDTIME Jasmina Oakley - metoprolol succinate ER 50 mg tab(s) (TOPROL XL) 50 mg ORAL DAILY Naar Pinto 50 mg at 04/16/20 0837 - citalopram 20 mg tab(s) (CeleXA) 20 mg ORAL DAILY Naar Pinto 20 mg at 04/16/20 0839 - DULoxetine 30 mg cap(s) (CYMBALTA) 30 mg ORAL DAILY Naar Pinto 30 mg at 04/16/20 0839 - sertraline 100 mg tab(s) (ZOLOFT) 100 mg ORAL DAILY Naar Pinto 100 mg at 04/16/20 0837 - oxyCODONE-acetaminophen 5-325 mg 1 tablet (PERCOCET) 1 tablet ORAL q 4 H PRN Naar Pinto 1 tablet at 04/15/20 0407 - ferrous sulfate 325 mg tab(s) 325 mg ORAL TID w MEALS Naar Pinto 325 mg at 04/16/20 1035 - albuterol 2.5 mg /3 mL (0.083 %) 2.5 mg (PROVENTIL) 3 mL INHALATION q 6 H PRN Naar Pinto - enoxaparin 40 mg injection (LOVENOX) 40 mg SUBCUTANEOUS DAILY Naar Pinto 40 mg at 04/16/20 0836 - sodium chloride 0.9 % (flush) 3-5 mL (BD POSIFLUSH) 3-5 mL INTRAVENOUS q 12 H Nauhar Pinto 5 mL at 04/16/20 0837 - ondansetron 4 mg tab(s) (ZOFRAN) 4 mg ORAL q 6 H PRN Naar Pinto 4 mg at 04/14/20 0951 Or - ondansetron (PF) 4 mg injection (ZOFRAN) 4 mg INTRAVENOUS q 6 H PRN [facility] - acetaminophen 650 mg tab(s) (TYLENOL) 650 mg ORAL q 6 H PRN [facility] 650 mg at 04/16/20 0024 - atorvastatin 10 mg tab(s) (LIPITOR) 10 mg ORAL AT BEDTIME [facility] Pinto 10 mg at 04/15/20 2124 - lisinopril 10 mg tab(s) (ZESTRIL, PRINIVIL) 10 mg ORAL DAILY [facility] 10 mg at 04/16/20 0837 - cefTRIAXone [...] mouth once daily., Disp: , Rfl: - Multivitamins-Minerals- Lutein (CENTRUM SILVER) Tab, Take 1 tablet by mouth once daily., Disp: , Rfl: - DULoxetine (CYMBALTA) 30 mg capsule, Take 1 a day for 2 weeks, then increase to 2 pills a day., Disp: 60 capsule, Rfl: 3 - LISINOPRIL-HYDROCHLOROT HIAZIDE 10-12.5 mg ORAL per tablet, 1 tablet once daily., Disp: , Rfl: - metoprolol succinate ER (TOPROL XL) 50 mg 24 hr tablet, Take 50 mg by mouth once daily. , Disp: , Rfl: - oxyCODONE-acetaminophen (PERCOCET) 5-325 mg ORAL tablet, Take 1 [...] kg/(m2) Date 04/16/20699 - 04/17/20 0659 Shift 6793-9343 9793-9417 4233-7135 24 Hour Total INTAKE PO 240 240 Shift Total 240 240 OUTPUT Shift Total Weight (kg) 96.9 96.9 96.9 96.9 Date 04/15/20699 - 04/16/20 0659 04/16/20699 - 04/17/20 0659 Shift 1219-4521 8936-4975 8303-6289 24 Hour Total 5302-8808 5884-3299 6150-7518 24 Hour Total INTAKE PO 240 240 PO 240 240 Shift Total 240 240 OUTPUT Urine 8287 227 7713 Void (ml) 850 850 Urine Incontinence/Not Saved 1 x 1 x Output ( External Collection Device 04/13/20 2225) 255 317 2883 # of BMs Stool Incontinence 2 x 2 x Shift Total 9584 877 1914 Weight (kg) 100.2 99.3 96.9 96.9 96.9 96.9 96.9 96.9 ABNORMAL/NEW FINDINGS: NONE RADIOLOGY/DIAGNOSTICS: LABORATORY: CBC: No results for input(s): WBC, [...] dependent prior to admission Pain regimen at [facility] reviewed and as documented above Tylenol 6 and 50 mg every 6 hours PRN Cymbalta 30 mg daily Gabapentin 8 100 mg every 8 hours Methadone 15 mg every a.m., 10 mg every p.m. and 10 mg at bedtime Change Percocet to oxycodone 5 mg every 4 hours PRN Senna S twice daily Thank you for this consult Alyson Thomas MD Normal [facility] PROGRESSon 04-16-2020 PROGRESS HNO ID: [id number] Author: Jasmina Oakley Service: Hospital Medicine Author Type: Physician Type: Progress Notes Filed: 04/19/2020 8:17 PM Note Text: DEPARTMENT OF HOSPITAL MEDICINE PROGRESS NOTE SERVICE DATE: 04/16/2020 SERVICE TIME: 6:20 PM Hospital Medicine/Primary Attending: Jasmina Oakley MD NIGHT AND WEEKEND COVERAGE: After 7pm please page [phone] CHIEF COMPLAINT: Back pain SUBJECTIVE: Back pain [...] tab(s) (ZOLOFT) 100 mg ORAL DAILY - oxyCODONE-acetaminophen 5-325 mg 1 tablet (PERCOCET) 1 tablet [...] of hospital for the concern of vertebral discitis/osteomyelitis. ? She has: ? 1.??Chronic destruction at [...] 16, 2020 TIME: 6:20 PM PAGER/CONTACT #: [phone] [facility] CASE MANAGEMon 2020 CASE MANAGEM HNO ID: [id number] Author: María (Rn) KIRK Mccall Service: Care [...] DATE: 2020 TIME: 8:59 AM PAGER/CONTACT #: [phone] [facility] CONSULTon 2020 CONSULT HNO ID: [id number] Author: Susan Jorge Service: Neurosurgery Author Type: [...] is wheelchair bound. Fluctuating mental status. At [facility] , who has dementia and [...] mouth once daily., Disp: , Rfl: - Multivitamins-Minerals- Lutein (CENTRUM SILVER) Tab, Take 1 tablet by mouth once daily., Disp: , Rfl: - DULoxetine (CYMBALTA) 30 mg capsule, Take 1 a day for 2 weeks, then increase to 2 pills a day., Disp: 60 capsule, Rfl: 3 - LISINOPRIL-HYDROCHLOROT HIAZIDE 10-12.5 mg ORAL per tablet, 1 tablet once daily., Disp: , Rfl: - metoprolol succinate ER (TOPROL XL) 50 mg 24 hr tablet, Take 50 mg by mouth once daily. , Disp: , Rfl: - oxyCODONE-acetaminophen (PERCOCET) 5-325 mg ORAL tablet, Take 1 [...] tab(s) (ZOLOFT) 100 mg ORAL DAILY - oxyCODONE-acetaminophen 5-325 mg 1 tablet (PERCOCET) 1 tablet [...] to 2013 CT Lspine - bone errosion Impression/Recommendati ons Active Problems: UTI (urinary tract infection) POA: [...] Hawley DATE: 2020 TIME: 6:06 PM PAGER: [phone] Normal [facility] CONSULT PROGon 2020 CONSULT PROG HNO ID: [id number] Author: Giovani Shin Service: Infectious Disease Author Type: Physician Type: Consult Progress Note Filed: 2020 4:42 PM Note Text: PROGRESS NOTE INFECTIOUS DISEASE BRIEF SUMMARY: 74F h/o spinal stenosis s/p T12-L5 decompressive bilateral laminectomy with foraminotomies from T12-L5 for decompression. Presented to OSH ([facility]) on 04/12/20 for R flank pain found to have UTI + hydronephrosis, transferred to [facility] 04/14/20 because of worsening paresthesias of legs, [...] patient is still here. SUBJECTIVE: Interval Events: 8/14 better mentation today Medications: Current Facility-Administered Medications [...] tab(s) (ZOLOFT) 100 mg ORAL DAILY - oxyCODONE-acetaminophen 5-325 mg 1 tablet (PERCOCET) 1 tablet [...] $ >=8 R Nitrofurantoin $ <=16 S Piperacillin/Tazobactam $$ 8 S Tobramycin $ 8 I Trimethoprim/Sulfametho $ >=320 R Reference Range: S= Susceptible, I= Intermediate, R= Resistant MICS are expressed in micrograms per mL Giovani Shin MD Infectious Disease Respiratory [place] Pager: [phone] Normal [facility] Comprehensive Metabolic Pane edward 2020 Albumin [Mass/Vol] 3.2 g/dL Low 3.9-4.9 [facility] Comment on above: Performed By: #### C MP #### [facility] [address] [place], [place] [address] ALP [Catalytic activity/Vol] 58 U/L Normal 34-123 [facility] Comment on above: Performed By: #### C MP #### [facility] [address] [place], [place] [address] ALT [Catalytic activity/Vol] 13 U/L Normal 7-38 [facility] Comment on above: Performed By: #### C MP #### [facility] [address] [place] [address] Anion gap [Moles/Vol] 12 mmol/L Normal 9-18 [facility] Comment on above: Performed By: #### C MP #### [facility] [address] [place], [place] [address] AST [Catalytic activity/Vol] see below Normal 13-35 [facility] Comment on above: Result Comment: Unab le to assay. Specimen Hemolyzed Performed By: #### C MP #### [facility] [address] [place] [address] Bilirubin [Mass/Vol] mg/dL Normal 0.2-1.3 [facility] Comment on above: Performed By: #### C MP #### [facility] [address] [place] [address] Calcium [Mass/Vol] 9.1 mg/dL Normal 8.5-10.2 [facility] Comment on above: Performed By: #### C MP #### [facility] [address] [place] [address] Chloride [Moles/Vol] 100 mmol/L Normal 97-105 [facility] Comment on above: Performed By: #### C MP #### [facility] [address] [place] [address] CO2 Blood 25 mmol/L Normal 22-30 [facility] Comment on above: Performed By: #### C MP #### [facility] [address] [place] [address] Creatinine [Mass/Vol] 0.99 mg/dL High 0.58-0.96 [facility] Comment on above: Performed By: #### C MP #### [facility] [address] [place] [address] Glucose [Mass/Vol] 103 mg/dL High 74-99 [facility] Comment on above: Result Comment: The [place] Diabetes [employer] (ADA) provides guidance for cutoff [...] Standards of Medical Care in Diabetes 2016; [employer]. Diabetes Care. 2016;39(Suppl 1). Performed By: #### C MP #### [place] [address] Potassium [Moles/Vol] 3.8 mmol/L Normal 3.7-5.1 [facility] Comment on above: Performed By: #### C MP #### [place] [address] Protein [Mass/Vol] 6.1 g/dL Low 6.3-8.0 [facility] Comment on above: Performed By: #### C MP #### [place] [address] Sodium [Moles/Vol] 137 mmol/L Normal 136-144 [facility] Comment on above: Performed By: #### C MP #### [place] [address] Urea nitrogen [Mass/Vol] 20 mg/dL Normal 7-21 [facility] Comment on above: Performed By: #### C MP #### [place] [id number] Hemogram/Diffon 2020 Abs Immature Grans 0.02 thou/cmm Normal 0.00-0.05 [facility] Comment on above: Performed By: #### C BCD1 #### [place] [id number] Abs Neut (ANC) 4.23 thou/cmm Normal 1.56-6.13 [facility] Comment on above: Performed By: #### C BCD1 #### [address] [place], [place] [address] Abs. Baso 0.02 thou/cmm Normal 0.01-0.08 [facility] Comment on above: Performed By: #### C BCD1 #### [facility] [address] [place] [address] Abs. [place] 0.55 thou/cmm Normal 0.27-0.70 [facility] Comment on above: Performed By: #### C BCD1 #### [facility] [address] [place] [address] Basophils/100 WBC (Bld) 0.3 % Normal [facility] Comment on above: Performed By: #### C BCD1 #### [facility] [address] [place] [address] Eosinophils (Bld) [#/Vol] 0.05 thou/cmm Normal 0.00-0.31 [facility] Comment on above: Performed By: #### C BCD1 #### [facility] [address] [place] [address] Eosinophils/100 WBC (Bld) 0.7 % Normal [facility] Comment on above: Performed By: #### C BCD1 #### [facility] [address] [place] [address] Erythrocyte distribution width (RBC) [Ratio] 12.4 % Normal 11.7-14.4 [facility] Comment on above: Performed By: #### C BCD1 #### [facility] [address] [place] [address] Hematocrit (Bld) [Volume fraction] 28.5 % Low 34.1-44.9 [facility] Comment on above: Performed By: #### C BCD1 #### [facility] [address] [place] [address] Hemoglobin (Bld) [Mass/Vol] 9.0 g/dL Low 11.2-15.7 [facility] Comment on above: Performed By: #### C BCD1 #### [place] [address] Immature Grans 0.30 % Normal [facility] Comment on above: Performed By: #### C BCD1 #### [facility] [address] [place], [place] [address] Lymphocytes (Bld) [#/Vol] 1.95 thou/cmm Normal 1.18-3.74 [facility] Comment on above: Performed By: #### C BCD1 #### [facility] [address] [place], [place] [address] Lymphocytes/100 WBC (Bld) 28.6 % Normal [facility] Comment on above: Performed By: #### C BCD1 #### [facility] [address] [place], [place] [address] MCH (RBC) [Entitic mass] 30.7 pg Normal 25.6-32.2 [facility] Comment on above: Performed By: #### C BCD1 #### [facility] [address] [place], [place] [address] MCHC (RBC) [Mass/Vol] 31.6 % Normal 31.6-34.8 [facility] Comment on above: Performed By: #### C BCD1 #### [facility] [address] [place], [place] [address] MCV (RBC) [Entitic vol] 97.3 fL High 79.4-94.8 [facility] Comment on above: Performed By: #### C BCD1 #### [facility] [address] [place], [place] [address] Monocytes/100 WBC (Bld) 8.1 % Normal [facility] Comment on above: Performed By: #### C BCD1 #### [facility] [address] [place], [place] [address] Platelet mean volume (Bld) [Entitic vol] 10.1 fL Normal 9.4-12.3 [facility] Comment on above: Performed By: #### C BCD1 #### [facility] [address] [place], [place] [address] Platelets (Bld) [#/Vol] 324 thou/cmm Normal 182-369 [facility] Comment on above: Performed By: #### C BCD1 #### [facility] [address] [place] [address] RBC (Bld) [#/Vol] 2.93 mil/cmm Low 3.93-5.22 [facility] Comment on above: Performed By: #### C BCD1 #### [facility] [address] [place] [address] RDW SD 44.5 fl Normal 36.4-46.3 [facility] Comment on above: Performed By: #### C BCD1 #### [facility] [address] [place] [address] Seg Neutrophil 62.0 % Normal [facility] Comment on above: Performed By: #### C BCD1 #### [facility] [address] [place] [address] WBC (Bld) [#/Vol] 6.82 thou/cmm Normal 3.98-10.04 [facility] Comment on above: Performed By: #### C BCD1 #### [facility] [address] [place] [address] PROGRESSon 2020 PROGRESS HNO ID: [id number] Author: Jasmina Oakley Service: Hospital Medicine Author Type: Physician Type: Progress Notes Filed: 04/19/2020 8:17 PM Note Text: DEPARTMENT OF HOSPITAL MEDICINE PROGRESS NOTE SERVICE DATE: 2020 SERVICE TIME: 7:01 PM Hospital Medicine/Primary Attending: Jasmina Oakley MD NIGHT AND WEEKEND COVERAGE: After 7pm please page [phone] CHIEF COMPLAINT: back pain SUBJECTIVE: Was anxious [...] tab(s) (ZOLOFT) 100 mg ORAL DAILY - oxyCODONE-acetaminophen 5-325 mg 1 tablet (PERCOCET) 1 tablet [...] of hospital for the concern of vertebral discitis/osteomyelitis. ? She has: ? 1.??Chronic destruction at [...] DATE: 2020 TIME: 7:01 PM PAGER/CONTACT #: [phone] [facility] THERAPY NTon 2020 THERAPY NT HNO ID: [id number] Author: Debbie (Pt) Kindra Service: Physical Therapy Author Type: Physical Therapist Type: Therapy (PT/OT/Speech/Resp) Filed: 2020 1:02 PM Note Text: Physical Therapy Evaluation SERVICE DATE: 2020 SERVICE TIME: 1106 to 1116 ROOM: [id number] Recommended Discharge Disposition: Subacute/SNF Recommended Discharge Disposition [...] ASSESSMENT : This patient was admitted to [facility] 04/12 with back/flank pain--transferred to [facility] 04/14, has the past medical history of spinal stenosis and arthritis impacting current functional level, as well as the social factors complicating the discharge of lives at [facility] with her --she is w/c bound. This [...] week): 5(1-5) Current admission Treatment Interventions: Education;Joint Mobility;Strengthening; Functional Mobility Training;Balance Training Plan of Care developed with: Patient TREATMENT INTERVENTIONS: Therapy Diagnosis: Reduced mobility-other;Muscle Weakness (generalized);Abnormali ties of gait and mobility-other Interventions Provided: Evaluation $ Evaluation-Moderate (62762) Billed Units: 1 unit History and examination [...] Home Environment Patient Lives With: Spouse(with at [facility]) Assistance Available: 24 Hour Equipment Owned: (electric [...] Hawley DATE: 2020 TIME: 12:10 PM Normal [facility] Basic Metabolic Panelon 04-02 Anion gap [Moles/Vol] 11 mmol/L Normal 9-18 [facility] Comment on above: Performed By: #### B MP #### [facility] [address] [place], [place] [address] Calcium [Mass/Vol] 8.9 mg/dL Normal 8.5-10.2 [facility] Comment on above: Performed By: #### B MP #### [facility] [address] [place], [place] [address] Chloride [Moles/Vol] 103 mmol/L Normal 97-105 [facility] Comment on above: Performed By: #### B MP #### [facility] [address] [place], [place] [address] CO2 Blood 25 mmol/L Normal 22-30 [facility] Comment on above: Performed By: #### B MP #### [facility] [address] [place], [place] [address] Creatinine [Mass/Vol] 0.97 mg/dL High 0.58-0.96 [facility] Comment on above: Performed By: #### B MP #### [facility] [address] [place], [place] [address] Glucose [Mass/Vol] 96 mg/dL Normal 74-99 [facility] Comment on above: Result Comment: The [place] Diabetes Association (ADA) provides guidance for cutoff [...] Standards of Medical Care in Diabetes 2016; [employer] Association. Diabetes Care. 2016;39(Suppl 1). Performed By: #### B MP #### [facility] [address] [place], [place] [address] Potassium [Moles/Vol] 3.9 mmol/L Normal 3.7-5.1 [facility] Comment on above: Performed By: #### B MP #### [facility] [address] [place], [place] [address] Sodium [Moles/Vol] 139 mmol/L Normal 136-144 [facility] Comment on above: Performed By: #### B MP #### [facility] [address] [place], [place] [address] Urea nitrogen [Mass/Vol] 21 mg/dL Normal 7-21 [facility] Comment on above: Performed By: #### B MP #### [address] [address] CASE MGT INIT ASSESon 2019 CASE MGT INIT ASSES HNO ID: [id number] Author: María (Rn) KIRK Mccall Service: Care Management Author Type: Registered Nurse Type: Care Mgt Initial Assessment Filed: 04/14/2020 3:26 PM Note Text: CARE MANAGEMENT: ASSESSMENT AND DISCHARGE PLAN SERVICE DATE: April 14, 2020 SERVICE TIME: 1099 PRIMARY CARE PHYSICIAN: Wolf Berry MD ADMISSION STATUS: Inpatient Needs Prior to Discharge: Facility or Agency Choices;Discharge Prescriptions;Discharge Transportation MEDICAL: [facility]GED WITH [facility] 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 Last discharge within 30 days: No Advance Directive: Current Advance Directive: Health Care Power of Registered Nurse First Assistant In Chart: No Apprentice Technician Attempted to Assist with AD Completion: Yes [...] for meeting these needs: return to the [place] [facility] [place] at discharge Patient's perception of need for this admission: UTI and back pain Are you interested in bedside delivery of your medications? No Is Patient Psychosocially Complex?: No ASSESSMENT AND PLAN: Medical Needs: Medical Needs: Two or more chronic diseases;Obesity;Durabl e Medical Equipment Psychosocial Needs: Psychosocial Needs: None FREEDOM OF CHOICE EXPLAINED: Sodus of Choice Given: No Reason Not Given: Patient refused(return to SNF) POTENTIAL TRANSITION PLANS Half-Way Facility/Intermediate Care Facility Pt is a [place] [facility] resident from the [facility] [place] and lives there with her , daughter Naina is HCPOA, do not have paperwork. Pt is AANDOX3. Will need WC ride back to facility. SIGNATURE: María Mccall RN PATIENT NAME: Patricia Hawley DATE: April 14, 2020 TIME: 3:23 PM PAGER/CONTACT #: [phone] Normal [facility] CONSULTon 04-14-2020 CONSULT HNO ID: [id number] Author: Leyda Azar Service: Hematology/Oncology Author Type: Physician Type: Consults Filed: 04/14/2020 11:11 AM Note Text: CONSULT: Hematology/OncologySERV ICE SERVICE DATE: 04/14/2020 REASON FOR CONSULT: Vertebral lesion , need for biopsy REQUESTING PHYSICIAN: Dr Pinto PRIMARY CARE PHYSICIAN: Nahun Casillas MD Subjective 74yo F is a transfer from [facility].Patient was admitted on 04/12/2020 at [place] for right sided 8/10 flank/back pain. Patient [...] mouth once daily., Disp: , Rfl: - Multivitamins-Minerals- Lutein (CENTRUM SILVER) Tab, Take 1 tablet by mouth once daily., Disp: , Rfl: - DULoxetine (CYMBALTA) 30 mg capsule, Take 1 a day for 2 weeks, then increase to 2 pills a day., Disp: 60 capsule, Rfl: 3 - LISINOPRIL-HYDROCHLOROT HIAZIDE 10-12.5 mg ORAL per tablet, 1 tablet once daily., Disp: , Rfl: - metoprolol succinate ER (TOPROL XL) 50 mg 24 hr tablet, Take 50 mg by mouth once daily. , Disp: , Rfl: - oxyCODONE-acetaminophen (PERCOCET) 5-325 mg ORAL tablet, Take 1 [...] tab(s) (ZOLOFT) 100 mg ORAL DAILY - oxyCODONE-acetaminophen 5-325 mg 1 tablet (PERCOCET) 1 tablet ORAL q 4 H PRN - ferrous sulfate 325 mg tab(s) 325 mg ORAL TID w MEALS - predniSONE 40 mg tab(s) (DELTASONE) 40 mg ORAL DAILY - albuterol 2.5 mg /3 mL (0.083 %) 2.5 mg (PROVENTIL) 3 mL INHALATION q 6 H PRN - piperacillin-tazobactam iv piggyback 3.375 g in dextrose (iso-osmotic) [...] 7.47 (H) 7.35 - 7.45 Final Specific [place], Ur Date Value Ref Range Status 07/23/2013 [...] April 14, 2020 TIME: 11:07 AM PAGER: [phone] Normal [facility] CONSULT HNO ID: [id number] Author: Giovani Shin Service: Infectious Disease Author Type: Physician Type: Consults Filed: 04/14/2020 4:58 PM Note Text: INITIAL CONSULT INFECTIOUS DISEASE SERVICE DATE: 04/14/2020 SERVICE TIME: 11:01 AM We were asked to evaluate Ms. Patricia Hawley, a 74 year old yo female by Dr. Pinto [facility] for Patient comes from [place], all documents in the paper chart. Has t12-L1 superinfection question with discitis vs OM, also possibly soft tissue mass. Our findings and recommendations will be communicated through the shared medical record. ASSESSMENT: 1. UTI + hydronephrosis 2. 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 presented to OSH ([facility]) on 04/12/20 for R flank pain found to have UTI + hydronephrosis, transferred to [facility] 04/14/20 because of worsening paresthesias of legs, MRI c/t/l showed T12-L1 OM vs discitis vs malignancy. When chart reviewed, patient had was seen here at [facility] 05/08/2013 because of worsening back pain [...] and myelomalacia. The patient was transferred to [facility] for further management. She had a CT of the lumbar spine without contrast done, which was consistent with diskitis/osteomyelitis. The patient did not have any other [...] tab(s) (ZOLOFT) 100 mg ORAL DAILY - oxyCODONE-acetaminophen 5-325 mg 1 tablet (PERCOCET) 1 tablet ORAL q 4 H PRN - ferrous sulfate 325 mg tab(s) 325 mg ORAL TID w MEALS - predniSONE 40 mg tab(s) (DELTASONE) 40 mg ORAL DAILY - albuterol 2.5 mg /3 mL (0.083 %) 2.5 mg (PROVENTIL) 3 mL INHALATION q 6 H PRN - piperacillin-tazobactam iv piggyback 3.375 g in dextrose (iso-osmotic) [...] 2020 TIME: 11:01 AM PAGER/CONTACT #: [phone] [facility] CONSULT PROGon 04-14-2020 CONSULT PROG HNO ID: [id number] Author: Federica Celis (Pharmacist) Service: Pharmacy Author [...] contact pharmacy if questions. FEDERICA CELIS, PHARMACIST [facility] CONSULT PROG HNO ID: [id number] Author: Fe Wen (Pharmacist) Service: Pharmacy Author [...] have any questions[place] [phone]. Age: [age] year old Allergies: ALLERGIES Allergen [...] results found for: MARIALUISA WEN, PHARMACIST Normal [facility] Cult Bloodon 04-14-2020 Cult Blood Test performed at [facility] No growth Normal [facility] Comment on above: Performed By: #### C _BLO #### [facility] [address] [place], [place] [address] Ferritinon 04-14-2020 Ferritin [Mass/Vol] 85.2 ng/mL Normal 14.7-205.1 [facility] Comment on above: Result Comment: Alla [...] result. Performed By: #### F ERR2 #### [facility] [address] [place], [place] [address] Folateon 04-14-2020 Folate >20.0 Normal > 4.7 [facility] Comment on above: Result Comment: A [...] result. Performed By: #### F OL2 #### [facility] [address] [place], [place] [address] HISTORY PHYSICALon 0 HISTORY PHYSICAL HNO ID: [id number] Author: Raj Pinto Service: Hospital Medicine Author Type: Physician Type: HANDP Filed: 04/14/2020 1:58 AM Note Text: DEPARTMENT OF HOSPITAL MEDICINE HISTORY AND PHYSICAL EXAM SERVICE DATE: 04/14/2020 SERVICE TIME: 1:00 AM Primary Care Physician: Nahun Casillas MD NIGHT AND WEEKEND COVERAGE: [place] COVERAGE: From 7am - 7pm, please call [phone] After 7pm, please call cross cover pager #[phone] Subjective CHIEF COMPLAINT: Right flank pain HPI: 74yo F is a transfer from [facility], refer to paper chart for details including lab and radiology results. Patient was admitted on 04/12/2020 at [place] for right sided 8/10 flank/back pain. Patient [...] headaches, no fever/chills. Patient [place] [facility] [place] with her and is wheelchair bound. Past [...] mouth once daily., Disp: , Rfl: - Multivitamins-Minerals- Lutein (CENTRUM SILVER) Tab, Take 1 tablet by mouth once daily., Disp: , Rfl: - DULoxetine (CYMBALTA) 30 mg capsule, Take 1 a day for 2 weeks, then increase to 2 pills a day., Disp: 60 capsule, Rfl: 3 - LISINOPRIL-HYDROCHLOROT HIAZIDE 10-12.5 mg ORAL per tablet, 1 tablet once daily., Disp: , Rfl: - metoprolol succinate ER (TOPROL XL) 50 mg 24 hr tablet, Take 50 mg by mouth once daily. , Disp: , Rfl: - oxyCODONE-acetaminophen (PERCOCET) 5-325 mg ORAL tablet, Take 1 [...] carotid Lines, Drains, and Airways Line Peripheral 04/13/20 2300 Admission to Hospital Left Antecubital 20 Gauge less than 1 day Peripheral 04/13/20 2300 Admission to Hospital Right Wrist 20 Gauge [...] atorvastatin Full Code Medication and Non-Pharmacologic VTE Prophylaxis/Anticoagula nts Anticoagulant AND Antiplatelet Medications (From admission, onward) Start Dose Route Frequency Ordered Stop 04/14/20 0900 enoxaparin 40 mg injection (LOVENOX) (Medical Risk Categories) 40 mg SUBCUTANEOUS DAILY 04/14/20 013 -- 04/14/20144 vte non-pharmacologic prophylaxis - none indicated (vt,oh) 04/14/201[address] activity - mobilize patient (vt,ut) VTE Prophylaxis: VTE prophylaxis appropriate Disposition: [facility] Plan of care discussed with: Provider, RN, Patient SIGNATURE: Raj Pinto MD PATIENT NAME: Patricia Hawley DATE: April 14, 2020 TIME: 1:37 AM PAGER/CONTACT #: [phone] etx [phone] Normal [facility] Hemogramon 04-14-2020 Erythrocyte distribution width (RBC) [Ratio] 12.7 % Normal 11.7-14.4 [facility] Comment on above: Performed By: #### C BC1 #### [place] [address] Hematocrit (Bld) [Volume fraction] 29.0 % Low 34.1-44.9 [facility] Comment on above: Performed By: #### C BC1 #### [place] [address] Hemoglobin (Bld) [Mass/Vol] 9.0 g/dL Low 11.2-15.7 [facility] Comment on above: Performed By: #### C BC1 #### [place] [address] MCH (RBC) [Entitic mass] 30.8 pg Normal 25.6-32.2 [facility] Comment on above: Performed By: #### C BC1 #### [place] [address] MCHC (RBC) [Mass/Vol] 31.0 % Low 31.6-34.8 [facility] Comment on above: Performed By: #### C BC1 #### [place] [id number] MCV (RBC) [Entitic vol] 99.3 fL High 79.4-94.8 [facility] Comment on above: Performed By: #### C BC1 #### [place] [address] Platelet mean volume (Bld) [Entitic vol] 9.6 fL Normal 9.4-12.3 [facility] Comment on above: Performed By: #### C BC1 #### [facility] [address] [place], [place] [address] Platelets (Bld) [#/Vol] 317 thou/cmm Normal 182-369 [facility] Comment on above: Performed By: #### C BC1 #### [facility] [address] [place] [address] RBC (Bld) [#/Vol] 2.92 mil/cmm Low 3.93-5.22 [facility] Comment on above: Performed By: #### C BC1 #### [place] [address] RDW SD 45.9 fl Normal 36.4-46.3 [facility] Comment on above: Performed By: #### C BC1 #### [place] [id number] WBC (Bld) [#/Vol] 8.02 thou/cmm Normal 3.98-10.04 [facility] Comment on above: Performed By: #### C BC1 #### [place] [address] Iron % Saturationon 04-14-20 20 Iron % Saturation 22 % Normal 15-57 [facility] Comment on above: Performed By: #### I RONS #### [place] [address] Iron Serum 60 ug/dL Normal 41-186 [facility] Comment on above: Performed By: #### I RONS #### [address] [address] Total Iron Binding Cap. 272 ug/dL Normal 232-386 [facility] Comment on above: Performed By: #### I RONS #### [address] [address] PROGRESSon 04-14-2020 PROGRESS HNO ID: [id number] Author: Jasmina Oakley Service: Hospital Medicine Author Type: Physician Type: Progress Notes Filed: 04/19/2020 8:17 PM Note Text: DEPARTMENT OF HOSPITAL MEDICINE PROGRESS NOTE SERVICE DATE: 04/14/2020 SERVICE TIME: 12:35 PM Hospital Medicine/Primary Attending: Jasmina Oakley MD NIGHT AND WEEKEND COVERAGE: After 7pm please page [phone] CHIEF COMPLAINT: back pain. UTI. Discitis/ OM [...] tab(s) (ZOLOFT) 100 mg ORAL DAILY - oxyCODONE-acetaminophen 5-325 mg 1 tablet (PERCOCET) 1 tablet ORAL q 4 H PRN - ferrous sulfate 325 mg tab(s) 325 mg ORAL TID w MEALS - predniSONE 40 mg tab(s) (DELTASONE) 40 mg ORAL DAILY - albuterol 2.5 mg /3 mL (0.083 %) 2.5 mg (PROVENTIL) 3 mL INHALATION q 6 H PRN - piperacillin-tazobactam iv piggyback 3.375 g in dextrose (iso-osmotic) [...] of hospital for the concern of vertebral discitis/osteomyelitis. She has: 1.??Chronic destruction at T12-L1 and [...] all the time baseline. Resides in [place] Chronic medical conditions 1. Hypertension 2. Anemia 3. Chronic pain syndrome 4. COPD 5. Chronic hypoxic respiratory failure 2 L nasal cannula 6. Hyperlipidemia 7. OSA1 8. [place] [facility]. ? Indication. PLAN: Continue current abx. Await ID input. Likely would need biopsy of the affected vertebrae. Pain control. Discussed with microbiology lab at [facility]. Urine culture is growing Escherichia coli [...] 14, 2020 TIME: 12:35 PM PAGER/CONTACT #: [phone] [facility] PROGRESS HNO ID: [id number] Author: Leyda Azar Service: Hematology/Oncology Author Type: Physician Type: Progress Notes Filed: 04/14/2020 12:29 PM Note Text: Imaging reviewed with Dr Dodie ORTIZ.Findings T12-L1 suspicious for infectious process unlikely malignancy. If ok by ID can consider aspiration for diagnostic purpose. Will discuss with Dr Malina Azar MD [facility] Vitamin B12on 04-14-2020 Cobalamin (Vitamin B12) [Mass/Vol] 404 pg/mL Normal 232-1245 [facility] Comment on above: Result Comment: Alla [...] result. Performed By: #### B 12 #### [place] [address] HOSPon 04-13-2020 [facility] Patient:Patricia Hawley MRN: Height:5' 0(1.524 m) Weight:216 [...] 7.5 mg tablet pravastatin 40 mg tablet Multivitamins-Minerals- Lutein (CENTRUM SILVER) Tab DULoxetine (CYMBALTA) 30 mg capsule LISINOPRIL-HYDROCHLOROT HIAZIDE 10-12.5 mg ORAL per tablet metoprolol succinate ER (TOPROL XL) 50 mg 24 hr tablet oxyCODONE-acetaminophen (PERCOCET) 5-325 mg ORAL tablet Admission/Clinic Administered [...] Nahun Casillas MD NIGHT AND WEEKEND COVERAGE: [place] COVERAGE: From 7am - 7pm, please call [phone] After 7pm, please call cross cover pager #[phone] Subjective CHIEF COMPLAINT: Right flank pain HPI: 74yo F is a transfer from [facility], refer to paper chart for details including lab and radiology results. Patient was admitted on 04/12/2020 at [place] for right sided 8/10 flank/back pain. Patient [...] headaches, no fever/chills. Patient lives [place] with her and is wheelchair bound. Past [...] mouth once daily., Disp: , Rfl: - Multivitamins-Minerals- Lutein (CENTRUM SILVER) Tab, Take 1 tablet by mouth once daily., Disp: , Rfl: - DULoxetine (CYMBALTA) 30 mg capsule, Take 1 a day for 2 weeks, then increase to 2 pills a day., Disp: 60 capsule, Rfl: 3 - LISINOPRIL-HYDROCHLOROT HIAZIDE 10-12.5 mg ORAL per tablet, 1 tablet once daily., Disp: , Rfl: - metoprolol succinate ER (TOPROL XL) 50 mg 24 hr tablet, Take 50 mg by mouth once daily. , Disp: , Rfl: - oxyCODONE-acetaminophen (PERCOCET) 5-325 mg ORAL tablet, Take 1 [...] atorvastatin Full Code Medication and Non-Pharmacologic VTE Prophylaxis/Anticoagula nts Anticoagulant AND Antiplatelet Medications (From admission, onward) Start Dose Route Frequency Ordered Stop 04/14/20 0900 enoxaparin 40 mg injection (LOVENOX) (Medical Risk Categories) 40 mg SUBCUTANEOUS DAILY 04/14/20136 -- 04/14/20144 vte non-pharmacologic prophylaxis - none indicated (vt,oh) 04/14/20144 activity - mobilize patient (vt,ut) VTE Prophylaxis: VTE prophylaxis appropriate Disposition: SNF Plan of care discussed with: Provider, RN, Patient SIGNATURE: Raj Pinto MD PATIENT NAME: Patricia Hawley DATE: April 14, 2020 TIME: 1:37 AM PAGER/CONTACT #: [phone] etx [phone] Previous Version Raj Pinto MD 04/14/2020 1:55 [...] [place] questions[place] [phone]. Age: [age] year old Allergies: ALLERGIES Allergen [...] 74 year old yo female by Dr. Pinto, [facility] for Patient comes from [place], all documents in the paper chart. Has t12-L1 superinfection question with discitis vs OM, also possibly soft tissue mass. Our findings and recommendations will be communicated through the shared medical record. ASSESSMENT: 1. UTI + hydronephrosis 2. 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 presented to OSH ([facility]) on 04/12/20 for R flank pain found to have UTI + hydronephrosis, transferred to [facility] 04/14/20 because of worsening paresthesias of legs, MRI c/t/l showed T12-L1 OM vs discitis vs malignancy. When chart reviewed, patient had was seen here at [facility] 05/08/2013 because of worsening back pain [...] and myelomalacia. The patient was transferred to [facility] for further management. She had a CT of the lumbar spine without contrast done, which was consistent with diskitis/osteomyelitis. The patient did not have any other [...] tab(s) (ZOLOFT) 100 mg ORAL DAILY - oxyCODONE-acetaminophen 5-325 mg 1 tablet (PERCOCET) 1 tablet ORAL q 4 H PRN - ferrous sulfate 325 mg tab(s) 325 mg ORAL TID w MEALS - predniSONE 40 mg tab(s) (DELTASONE) 40 mg ORAL DAILY - albuterol 2.5 mg /3 mL (0.083 %) 2.5 mg (PROVENTIL) 3 mL INHALATION q 6 H PRN - piperacillin-tazobactam iv piggyback 3.375 g in dextrose (iso-osmotic) [...] Azar MD 04/14/2020 11:11 AM Signed CONSULT: Hematology/OncologySERV [facility] SERVICE DATE: 04/14/2020 REASON FOR CONSULT: Vertebral lesion , need for biopsy REQUESTING PHYSICIAN: Dr Pinto PRIMARY CARE PHYSICIAN: Nahun Casillas MD Subjective 74yo F is a transfer from [facility].Patient was admitted on 04/12/2020 at [place] for right sided 8/10 flank/back pain. Patient [...] mouth once daily., Disp: , Rfl: - Multivitamins-Minerals- Lutein (CENTRUM SILVER) Tab, Take 1 tablet by mouth once daily., Disp: , Rfl: - DULoxetine (CYMBALTA) 30 mg capsule, Take 1 a day for 2 weeks, then increase to 2 pills a day., Disp: 60 capsule, Rfl: 3 - LISINOPRIL-HYDROCHLOROT HIAZIDE 10-12.5 mg ORAL per tablet, 1 tablet once daily., Disp: , Rfl: - metoprolol succinate ER (TOPROL XL) 50 mg 24 hr tablet, Take 50 mg by mouth once daily. , Disp: , Rfl: - oxyCODONE-acetaminophen (PERCOCET) 5-325 mg ORAL tablet, Take 1 [...] tab(s) (ZOLOFT) 100 mg ORAL DAILY - oxyCODONE-acetaminophen 5-325 mg 1 tablet (PERCOCET) 1 tablet ORAL q 4 H PRN - ferrous sulfate 325 mg tab(s) 325 mg ORAL TID w MEALS - predniSONE 40 mg tab(s) (DELTASONE) 40 mg ORAL DAILY - albuterol 2.5 mg /3 mL (0.083 %) 2.5 mg (PROVENTIL) 3 mL INHALATION q 6 H PRN - piperacillin-tazobactam iv piggyback 3.375 g in dextrose (iso-osmotic) [...] 7.47 (H) 7.35 - 7.45 Final Specific [place], Ur Date Value Ref Range Status 07/23/2013 [...] April 14, 2020 TIME: 11:07 AM PAGER: [phone] Leyda Azar MD 04/14/2020 12:29 PM Signed [...] AND WEEKEND COVERAGE: After 7pm please page [phone] CHIEF COMPLAINT: back pain. UTI. Discitis/ OM [...] tab(s) (ZOLOFT) 100 mg ORAL DAILY - oxyCODONE-acetaminophen 5-325 mg 1 tablet (PERCOCET) 1 tablet ORAL q 4 H PRN - ferrous sulfate 325 mg tab(s) 325 mg ORAL TID w MEALS - predniSONE 40 mg tab(s) (DELTASONE) 40 mg ORAL DAILY - albuterol 2.5 mg /3 mL (0.083 %) 2.5 mg (PROVENTIL) 3 mL INHALATION q 6 H PRN - piperacillin-tazobactam iv piggyback 3.375 g in dextrose (iso-osmotic) [...] of hospital for the concern of vertebral discitis/osteomyelitis. She has: 1. Osteomyelitis/discitis at T12-L1 and T11-T12 level: Iess likely [...] all the time baseline. Resides in [place] Chronic medical conditions 1. Hypertension 2. Anemia 3. Chronic pain syndrome 4. COPD 5. Chronic hypoxic respiratory failure 2 L nasal cannula 6. Hyperlipidemia 7. OSA1 8. [place] [facility] ? Indication. PLAN: Continue current abx. Await ID input. Likely would need biopsy of the affected vertebrae. Pain control. Discussed with microbiology lab at [facility]. 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 Last discharge within 30 days: No Advance Directive: Current Advance Directive: Health Care Power of Registered Nurse First Assistant In Chart: No Apprentice Technician Attempted to Assist with AD Completion: Yes [...] for meeting these needs: return to the [facility] at discharge Patient's perception of need for this admission: UTI and back pain Are you interested in bedside delivery of your medications? No Is Patient Psychosocially Complex?: No ASSESSMENT AND PLAN: Medical Needs: Medical Needs: Two or more chronic diseases;Obesity;Durabl e Medical Equipment Psychosocial Needs: Psychosocial Needs: None FREEDOM OF CHOICE EXPLAINED: Sodus of Choice Given: No Reason Not Given: Patient refused(return to SNF) POTENTIAL TRANSITION PLANS Half-Way Facility/Intermediate Care Facility Pt [place] a [place] [facility] [place] the [facility] and lives there with her , daughter Naina is HCPOA, do not have paperwork. Pt is AANDOX3. Will need WC ride back to facility. SIGNATURE: María Mccall RN PATIENT NAME: Patricia Hawley DATE: April 14, 2020 TIME: 3:23 PM PAGER/CONTACT #: [phone] FEDERICA CELIS PHARMACIST 04/14/2020 5:13 PM Signed PHARMACY VANCOMYCIN DOSING [...] contact pharmacy if questions. FEDERICA CELIS, PHARMACIST María Mccall RN, RN 2020 9:00 AM Signed CARE MANAGEMENT PROGRESS NOTE SERVICE DATE: 2020 SERVICE TIME: 8:59 AM LOS: 1 day Pt will need a COVID test ordered prior to discharge. Already notified Dr. Oakley. SIGNATURE: María Mccall RN PATIENT NAME: Patricia Hawley DATE: 2020 TIME: 8:59 AM PAGER/CONTACT #: [phone] Giovani Shin MD 2020 4:42 PM Addendum PROGRESS NOTE INFECTIOUS DISEASE BRIEF SUMMARY: 74F h/o spinal stenosis s/p T12-L5 decompressive bilateral laminectomy with foraminotomies from T12-L5 for decompression. Presented to [facility]) on 04/12/20 for R flank pain found to have UTI + hydronephrosis, transferred to [facility] 04/14/20 because of worsening paresthesias of legs, [...] tab(s) (ZOLOFT) 100 mg ORAL DAILY - oxyCODONE-acetaminophen 5-325 mg 1 tablet (PERCOCET) 1 tablet [...] $ >=8 R Nitrofurantoin $ <=16 S Piperacillin/Tazobactam $$ 8 S Tobramycin $ 8 I Trimethoprim/Sulfametho $ >=320 R Reference Range: S= Susceptible, I= Intermediate, R= Resistant MICS are expressed in micrograms per mL Giovani Shin MD Infectious Disease Respiratory [place] Pager: [phone] Previous Version Debbie Arguelles, PT 2020 1:02 PM Signed Physical Therapy Evaluation SERVICE DATE: 2020 SERVICE TIME: 1106 to 1116 ROOM: [place] [address] Recommended Discharge Disposition: Subacute/SNF Recommended Discharge Disposition [...] ASSESSMENT : This patient was admitted to [place] 04/12 with back/flank pain--transferred to [facility] 04/14, has the past medical history of spinal stenosis and arthritis impacting current functional level, as well as the social factors complicating the discharge of lives at [facility] with her --she is w/c bound. This [...] week): 5(1-5) Current admission Treatment Interventions: Education;Joint Mobility;Strengthening; Functional Mobility Training;Balance Training Plan of Care developed with: Patient TREATMENT INTERVENTIONS: Therapy Diagnosis: Reduced mobility-other;Muscle Weakness (generalized);Abnormali ties of gait and mobility-other Interventions Provided: Evaluation $ Evaluation-Moderate (06039) Billed Units: 1 unit History and examination [...] Home Environment Patient Lives With: Spouse(with at [facility]) Assistance Available: 24 Hour Equipment Owned: (electric [...] Toilet/Commode Gait Stairs Curb Step Car Transfer -HLM: 2: Bed activities / dependent transfer Please [...] is wheelchair bound. Fluctuating mental status. [facility] , who has dementia and [...] mouth once daily., Disp: , Rfl: - Multivitamins-Minerals- Lutein (CENTRUM SILVER) Tab, Take 1 tablet by mouth once daily., Disp: , Rfl: - DULoxetine (CYMBALTA) 30 mg capsule, Take 1 a day for 2 weeks, then increase to 2 pills a day., Disp: 60 capsule, Rfl: 3 - LISINOPRIL-HYDROCHLOROT HIAZIDE 10-12.5 mg ORAL per tablet, 1 tablet once daily., Disp: , Rfl: - metoprolol succinate ER (TOPROL XL) 50 mg 24 hr tablet, Take 50 mg by mouth once daily. , Disp: , Rfl: - oxyCODONE-acetaminophen (PERCOCET) 5-325 mg ORAL tablet, Take 1 [...] tab(s) (ZOLOFT) 100 mg ORAL DAILY - oxyCODONE-acetaminophen 5-325 mg 1 tablet (PERCOCET) 1 tablet [...] to 2013 CT Lspine - bone errosion Impression/Recommendati ons Active Problems: UTI (urinary tract infection) POA: [...] Hawley DATE: 2020 TIME: 6:06 PM PAGER: [phone] Jasmina Oakley MD 04/18/2020 9:05 PM Addendum DEPARTMENT OF HOSPITAL MEDICINE PROGRESS NOTE SERVICE DATE: 2020 SERVICE TIME: 7:01 PM Hospital Medicine/Primary Attending: Jasmina Oakley MD NIGHT AND WEEKEND COVERAGE: After 7pm please page [phone] CHIEF COMPLAINT: back pain SUBJECTIVE: Was anxious [...] tab(s) (ZOLOFT) 100 mg ORAL DAILY - oxyCODONE-acetaminophen 5-325 mg 1 tablet (PERCOCET) 1 tablet [...] of hospital for the concern of vertebral discitis/osteomyelitis. ? She has: ? 1. Osteomyelitis/discitis at T12-L1 and T11-T12 level: Iess likely [...] DATE: 2020 TIME: 7:01 PM PAGER/CONTACT #: [phone] Previous Version Alyson Thomas MD 04/16/2020 7:25 PM Signed Name: PATRICIA HAWLEY Age: [age] year old PAIN MANAGEMENT: Acute on chronic back pain, T11-12, T12-L1 osteomyelitis/discitis; multilevel degenerative disc disease Pain Description: Patient [...] Subjective HPI: 75-year-old female was transferred from [facility] after diagnostic work-up demonstrated T12-L1 discitis/osteomyelitis and possible malignant infiltration. Patient initially presented [...] malignant infiltration of T12-L1 Patient lives at [facility] with her who is wheelchair-bound. Pain regimen confirmed to [facility] and includes gabapentin 100 mg 3 times [...] Pinto 100 mg at 04/16/20 0837 - oxyCODONE-acetaminophen 5-325 mg 1 tablet (PERCOCET) 1 tablet ORAL q 4 H PRN [facility] 1 tablet at 04/15/20 0407 - ferrous sulfate 325 mg tab(s) 325 mg ORAL TID w MEALS [facility] 325 mg at 04/16/20 1035 - albuterol 2.5 mg /3 mL (0.083 %) 2.5 mg (PROVENTIL) 3 mL INHALATION q 6 H PRN [facility] - enoxaparin 40 mg injection (LOVENOX) 40 mg SUBCUTANEOUS DAILY [facility] 40 mg at 04/16/20 0836 - sodium chloride 0.9 % (flush) 3-5 mL (BD POSIFLUSH) 3-5 mL INTRAVENOUS q 12 H [facility] 5 mL at 04/16/20 0837 - ondansetron 4 mg tab(s) (ZOFRAN) 4 mg ORAL q 6 H PRN [facility] 4 mg at 04/14/20 0951 Or - ondansetron (PF) 4 mg injection (ZOFRAN) 4 mg INTRAVENOUS q 6 H PRN [facility] - acetaminophen 650 mg tab(s) (TYLENOL) 650 mg ORAL q 6 H PRN [facility] 650 mg at 04/16/20 0024 - atorvastatin 10 mg tab(s) (LIPITOR) 10 mg ORAL AT BEDTIME [facility] 10 mg at 04/15/20 2124 - lisinopril 10 mg tab(s) (ZESTRIL, PRINIVIL) 10 mg ORAL DAILY [facility] 10 mg at 04/16/20 0837 - cefTRIAXone [...] mouth once daily., Disp: , Rfl: - Multivitamins-Minerals- Lutein (CENTRUM SILVER) Tab, Take 1 tablet by mouth once daily., Disp: , Rfl: - DULoxetine (CYMBALTA) 30 mg capsule, Take 1 a day for 2 weeks, then increase to 2 pills a day., Disp: 60 capsule, Rfl: 3 - LISINOPRIL-HYDROCHLOROT HIAZIDE 10-12.5 mg ORAL per tablet, 1 tablet once daily., Disp: , Rfl: - metoprolol succinate ER (TOPROL XL) 50 mg 24 hr tablet, Take 50 mg by mouth once daily. , Disp: , Rfl: - oxyCODONE-acetaminophen (PERCOCET) 5-325 mg ORAL tablet, Take 1 [...] kg/(m2) Date 04/16/20699 - 04/17/20 0659 Shift 2774-2659 5019-6024 2963-7385 24 Hour Total INTAKE PO 240 240 Shift Total 240 240 OUTPUT Shift Total Weight (kg) 96.9 96.9 96.9 96.9 Date 04/15/20699 - 04/16/20 0659 04/16/20699 - 04/17/20 0659 Shift 5294-5923 7708-3165 5448-9272 24 Hour Total 7705-5698 6306-5832 6284-3050 24 Hour Total INTAKE PO 240 240 PO 240 240 Shift Total 240 240 OUTPUT Urine 2379 438 4115 Void (ml) 850 850 Urine Incontinence/Not Saved 1 x 1 x Output ( External Collection Device 04/13/202224) 624 307 6023 # of BMs Stool Incontinence 2 x 2 x Shift Total 5150 746 0459 Weight (kg) 100.2 99.3 96.9 96.9 96.9 96.9 96.9 96.9 ABNORMAL/NEW FINDINGS: NONE RADIOLOGY/DIAGNOSTICS: LABORATORY: CBC: No results for input(s): WBC, [...] dependent prior to admission Pain regimen at [facility] reviewed and as documented above Tylenol 6 [...] AND WEEKEND COVERAGE: After 7pm please page [phone] CHIEF COMPLAINT: Back pain SUBJECTIVE: Back pain [...] tab(s) (ZOLOFT) 100 mg ORAL DAILY - oxyCODONE-acetaminophen 5-325 mg 1 tablet (PERCOCET) 1 tablet [...] of hospital for the concern of vertebral discitis/osteomyelitis. ? She has: ? 1.??Osteomyelitis/disci tis at T12-L1 and T11-T12 level: Iess likely [...] 16, 2020 TIME: 6:20 PM PAGER/CONTACT #: [phone] Previous Version BON Roberts, PA 04/17/2020 9:21 [...] Therapy: Room Air IANDO: Date 04/16/20699 - 04/17/2065804/17/20699 - 04/18/20 0659 Shift 6385-0121 3702-3773 6477-2959 24 Hour Total 3627-0091 3042-2224 4244-5008 24 Hour Total INTAKE PO 240 50 290 PO 240 50 290 Shift Total 240 50 290 OUTPUT Urine 400 1100 1500 Void (ml) 400 400 Urine Not Saved. 2 x 2 x Output ( External Collection Device 04/13/20 4605) 1100 1100 Shift Total 400 1100 1500 [...] than right; moves BUE well with weak contact person/intrinsics though feeding herself without issue HEENT: [...] April 17, 2020 TIME: 9:16 AM Pager: [phone] Alyson Thomas MD 04/17/2020 2:00 PM Signed Name: PATRICIA HAWLEY Age: [age] year old PAIN MANAGEMENT: Acute on chronic back pain, T11-12, T12-L1 osteomyelitis/discitis; multilevel degenerative disc disease Pain Description: Intermittent [...] Subjective HPI: 75-year-old female was transferred from [facility] after diagnostic work-up demonstrated T12-L1 discitis/osteomyelitis and possible malignant infiltration. Patient initially presented [...] malignant infiltration of T12-L1 Patient lives at [facility] with her who is wheelchair-bound. Pain regimen confirmed to [facility] and includes gabapentin 100 mg 3 times [...] wheelchair-bound. OARRS Review: Negative. Does not reflect [facility] pain regimen as documented above Current Facility-Administered [...] tab(s) (ATIVAN) 0.5 mg ORAL AT BEDTIME [facility] 0.5 mg at 04/16/202000 - metoprolol succinate ER 50 mg tab(s) (TOPROL XL) 50 mg [facility]ILY [facility] at 04/16/20 0837 - [...] 3 mL INHALATION q 6 H [facility] - enoxaparin 40 mg injection (LOVENOX) 40 mg SUBCUTANEOUS DAILY [facility] Pinto 40 mg at 04/17/20 0837 - sodium chloride 0.9 % (flush) 3-5 mL (BD POSIFLUSH) 3-5 mL INTRAVENOUS q 12 H [facility] Pinto 3 mL at 04/17/20 0837 - ondansetron 4 mg tab(s) (ZOFRAN) 4 mg ORAL q 6 H PRN [facility] 4 mg at 04/14/20 0951 Or - ondansetron (PF) 4 mg injection (ZOFRAN) 4 mg INTRAVENOUS q 6 H PRN [facility] - acetaminophen 650 mg tab(s) (TYLENOL) 650 mg ORAL q 6 H PRN [facility] 650 mg at 04/16/20 0024 - atorvastatin 10 mg tab(s) (LIPITOR) 10 mg ORAL AT BEDTIME [facility] 10 mg at 04/16/202000 - docusate sodium [...] mouth once daily., Disp: , Rfl: - Multivitamins-Minerals- Lutein (CENTRUM SILVER) Tab, Take 1 tablet by mouth once daily., Disp: , Rfl: - DULoxetine (CYMBALTA) 30 mg capsule, Take 1 a day for 2 weeks, then increase to 2 pills a day., Disp: 60 capsule, Rfl: 3 - LISINOPRIL-HYDROCHLOROT HIAZIDE 10-12.5 mg ORAL per tablet, 1 tablet once daily., Disp: , Rfl: - metoprolol succinate ER (TOPROL XL) 50 mg 24 hr tablet, Take 50 mg by mouth once daily. , Disp: , Rfl: - oxyCODONE-acetaminophen (PERCOCET) 5-325 mg ORAL tablet, Take 1 [...] 41.79 kg/m? BMI 41.79 kg/(m2) Date 04/16/20 07 - 04/17/20 0659 Shift 1973-9948 0895-4182 5396-6799 24 Hour Total INTAKE PO 240 240 Shift Total 240 240 OUTPUT Shift Total Weight (kg) 96.9 96.9 96.9 96.9 Date 04/15/20 07 - 04/16/20 0659 04/16/20699 - 04/17/20 0659 Shift 8624-8106 5335-3689 7817-2370 24 Hour Total 1917-6014 6896-8162 3594-8471 24 Hour Total INTAKE PO 240 240 PO 240 240 Shift Total 240 240 OUTPUT Urine 6512 666 6709 Void (ml) 850 850 Urine Incontinence/Not Saved 1 x 1 x Output ( External Collection Device 04/13/20 2225) 226 771 4092 # of BMs Stool Incontinence 2 x 2 x Shift Total 8241 747 3007 Weight (kg) 100.2 99.3 96.9 96.9 96.9 96.9 96.9 96.9 ABNORMAL/NEW FINDINGS: NONE RADIOLOGY/DIAGNOSTICS: LABORATORY: CBC: No results for input(s): WBC, [...] dependent prior to admission Pain regimen at [facility] reviewed and as documented above Tylenol 6 and 50 mg every 6 hours PRN Cymbalta 30 mg daily Gabapentin 8 100 mg every 8 hours Methadone 15 mg every a.m., 10 mg every p.m. and 10 mg at bedtime Oxycodone 5 mg every 4 hours PRN Senna S twice daily MD Saloni Stern RN, RN 04/17/2020 2:15 PM Signed Nursing Progress Note Patient Name: Patricia Hawley Patient Location: [id number] Daily Note: Spoke with pt daughter at [...] AND WEEKEND COVERAGE: After 7pm please page [phone] CHIEF COMPLAINT: back pain. UTI SUBJECTIVE: Back [...] 58 T (more content not included)... Normal [facility] UA COMPLETEon 08-04-2019 UA BACTERIA 4+ /HPF Normal NONE [facility] Comment on above: Performed By: #### L [id number] #### [facility] [address] [place] [address] UA LK ESTERASE 500 Normal NEGATIVE [facility] Comment on above: Performed By: #### L 600.56658 #### [facility] [address] [place] [address] UA NITRITE Positive Normal NEGATIVE [facility] Comment on above: Performed By: #### L 600.00569 #### [facility] [address] [place], [place] [id number] UA WBC 225 WBC/HPF High 0-5 [facility] Comment on above: Performed By: #### L 600.90877 #### [facility] [address] [place] [address] UA YEAST FEW Normal NONE [facility] Comment on above: Performed By: #### L 600.59435 #### [facility] [address] [place] [address] Color (U) Yellow Normal [facility] Comment on above: Performed By: #### L 600.07310 #### [facility] [address] [place], [place] [id number] Glucose (U) [Mass/Vol] Negative Normal NORMAL [facility] Comment on above: Performed By: #### L 600.67242 #### [facility] [address] [place] [address] Mucus Ql (Urine sed) TRACE Normal NEGATIVE [facility] Comment on above: Performed By: #### L 600.97458 #### [facility] [address] [place] [address] SQUAMOUS EPIS 0 EPI/HPF Normal 0-5 [facility] Comment on above: Performed By: #### L 600.62046 #### [facility] [place] [address] UA APPEARANCE Cloudy Normal CLEAR [facility] Comment on above: Performed By: #### L 600.45420 #### [facility] [address] [place] [address] UA BILIRUBIN Negative Normal NEGATIVE [facility] Comment on above: Performed By: #### L 600.83214 #### [facility] [address] [place] [address] UA BLOOD SMALL Normal NEGATIVE [facility] Comment on above: Performed By: #### L 600. #### [facility] [address] [place] [address] UA KETONE Negative Normal NEGATIVE [facility] Comment on above: Performed By: #### L 600. #### [facility] [address] [place] [address] UA PH 6.0 Normal 5-6 [facility] Comment on above: Performed By: #### L 600.94321 #### [facility] [address] [place] [address] UA PROTEIN 30 Normal NEGATIVE [facility] Comment on above: Performed By: #### L 600.46863 #### [facility] [place] [address] UA RBC 5 RBC/HPF High 0-3 [facility] Comment on above: Performed By: #### L 600.91433 #### [facility] [place] [address] UA SPEC GRAV 1.013 Normal 1.005-1.030 [facility] Comment on above: Performed By: #### L 600.45110 #### [facility] [address] [place] [address] UA UROBILINOGEN Negative Normal NORMAL [facility] Comment on above: Performed By: #### L 600.17252 #### [facility] [address] [place] [address] WBC CLUMPS MANY Normal [facility] Comment on above: Performed By: #### L 600.94571 #### [facility] [address] [place] [address] Office Visit: sore throaton 06-09-2017 Protein mass conc Done Invalid Interpretation Code [employer] Work Phone: Tobacco smoking status NHIS Never smoker Invalid Interpretation Code [facility] Work Phone: Office Visit: [facility] 06-05-20 17 Fall risk assessment Yes Invalid Interpretation Code [facility] Work Phone: 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 Left ventricular Ejection fraction 45 % Invalid Interpretation Code [facility] Work Phone: [phone] Office Visit: UC: Leg woundo n 06-04-2017 Protein mass conc Done Invalid Interpretation Code [facility] Work Phone: [phone] Tobacco smoking status NHIS Never smoker Invalid Interpretation Code [facility] Work Phone: Office Visiton 10-28-2015 General cardiovascular disease 10Y risk [#] [place].D'Agostino 9 % Invalid Interpretation Code [facility] Work Phone: [phone] Replaced Document: [facility] E CG Observationson 04-11-2015 EKG QRS axis -8 deg Invalid Interpretation Code [facility] Work Phone: [phone] Interpretation Sinus Bradycardia Lo w voltage in precordial leads. ABNORMAL Invalid Interpretation Code [facility] Work Phone: [phone] P [place] 22 deg Invalid Interpretation Code [facility] [employer] Work Phone: [phone] UT Interval 172 ms Invalid Interpretation Code [facility] Work Phone: [phone] QRS Duration 90 ms Invalid Interpretation Code [facility] Work Phone: [phone] QT Interval new path ms Invalid Interpretation Code [facility] Work Phone: [phone] QTc Santizo 391 ms Invalid Interpretation Code [facility] Work Phone: [phone] T [place] 23 deg Invalid Interpretation Code [facility] Work Phone: [phone] Lab Report: BNP,B-Type NATRI URETIC PEPTIDEon 12-03-2014 Natriuretic peptide B mass conc (Bld) 46.9 pg/mL Invalid Interpretation Code 0-100 [facility] Work Phone: [phone] Lab Report: Basic Metabolic Profile (BMP)on 12-03-2014 Anion gap 4 molar conc 6 Invalid Interpretation Code 5-15 [facility] Work Phone: [phone] Calcium mass conc 9.7 mg/dL Invalid Interpretation Code 8.5-10.1 [facility] Work Phone: [phone] Chloride molar conc 99 mmol/L Invalid Interpretation Code 98-107 [facility] Work Phone: [phone] CO2 ppres (BldV) 33.0 mmol/L Critically high 21.0-32.0 [facility] [employer] Work Phone: [phone] Creatinine mass conc 0.8 mg/dL Invalid Interpretation Code 0.6-1.0 [facility] Work Phone: [phone] EST GFR - AA 92 mL/min Invalid Interpretation Code >60 [facility] Work Phone: [phone] GFR/1.73 sq M predicted among non-blacks MDRD vol rate/area (S/P/Bld) 76 mL/min/{1.73_m2} Invalid Interpretation Code >60 [facility] Work Phone: [phone] Glucose mass conc 90 mg/dL Invalid Interpretation Code 70-110 [facility] Work Phone: [phone] Potassium molar conc 4.1 mmol/L Invalid Interpretation Code 3.5-5.1 [facility] Work Phone: [phone] Sodium molar conc 138 mmol/L Invalid Interpretation Code 136-145 [facility] Work Phone: [phone] Urea nitrogen mass conc 16 mg/dL Invalid Interpretation Code 7-18 [facility] Work Phone: [phone] Urea nitrogen/Creatinine mass ratio 20.0 RATIO Invalid Interpretation Code 10-20 [facility] Work Phone: [phone] Lab Report: CBC W/Diff, Auto matedon 12-03-2014 Absolute Neut 4.1 X10 3/UL Invalid Interpretation Code 2.0-7.7 [employer] Phone: [phone] Basophils/100 WBC Auto (Bld) 0.3 % Invalid Interpretation Code 0-1 [facility] Work Phone: [phone] Eosinophils/100 WBC Auto (Bld) 2.0 % Invalid Interpretation Code 0-5 [facility] Work Phone: [phone] Hematocrit Auto Volume Fraction (Bld) 41.3 % Invalid Interpretation Code 37-47 [facility] Work Phone: [phone] Hemoglobin mass conc (Bld) 13.2 g/dL Invalid Interpretation Code 12.0-15.0 [facility] Phone: [phone] Lymphocytes Auto #/vol (Bld) 1.82 X10 3/UL Invalid Interpretation Code 0.83-4.51 [facility] Work Phone: [phone] Lymphocytes/100 WBC Auto (Bld) 27.3 % Invalid Interpretation Code 19-41 [employer] Phone: [phone] MCH Auto Entitic mass (RBC) 31.3 pg Invalid Interpretation Code 27.0-32.0 [employer] Phone: [phone] MCHC Auto mass conc (RBC) 32.0 G/GL Invalid Interpretation Code 32-36 [facility] Work Phone: [phone] MCV Auto Entitic volume (RBC) 97.9 fL Invalid Interpretation Code 81-99 [facility] Work Phone: [phone] Monocytes/100 WBC Auto (Bld) 8.4 % Invalid Interpretation Code 0-10 [facility] Work Phone: [phone] Neutrophils/100 WBC Auto (Bld) 62.0 % Invalid Interpretation Code 47-70 [facility] Work Phone: [phone] Platelet mean volume Roge-Jimenez Entitic volume (Bld) 10.0 fL Invalid Interpretation Code 6.2-12.0 [facility] Work Phone: [phone] Platelets Auto #/vol (Bld) 286 10*3/mm3 Invalid Interpretation Code 150-450 [facility] Work Phone: [phone] RBC Auto #/vol (Bld) 4.22 10*6/uL Invalid Interpretation Code 4.2-5.4 [facility] Phone: [phone] WBC Auto #/vol (Bld) 6.7 10*3/uL Invalid Interpretation Code 4.4-11.0 [employer] Phone: [phone] Office Visiton 12-03-2014 cardiac risk group B Invalid Interpretation Code [facility] Phone: [phone] Lab Report: SEDon 06-12-2013 ESR Velocity (Bld) 28 mm/h Invalid Interpretation Code 0-30 [facility] Phone: [phone] Lab Report: LCRPon 3 LCRP 7.84 Invalid Interpretation Code 0.0-3.0 [facility] Work Phone: [phone] Lab Report: LPTon 06-04-2013 INR Coag RelTime (PPP) 2.3 {INR} Invalid Interpretation Code [facility] Phone: [phone] LPTP 23.5 SECONDS Invalid Interpretation Code 11.9-14.4 [facility] Work Phone: [phone]) Lab Report: CMPon 03-25-2013 Albumin mass conc 3.2 g/dL Low 3.4-5.0 [facility] Work Phone: [phone] ALP enzyme act/vol (Bld) 47 U/L Low 50-136 [facility] Work Phone: [phone] ALT enzyme act/vol 30 U/L Normal 12-78 [facility] Work Phone: [phone] AST enzyme act/vol 17 U/L Normal 15-37 [facility] Work Phone: [phone] Bilirubin mass conc 0.30 mg/dL Normal 0.00-1.00 [facility] Work Phone: [phone]) Lab Report: PREALBon 013 Prealbumin Elph mass conc 33.9 mg/dL Normal 20.0-40.0 [facility] Work Phone: [phone] Lab Report: LIPIDon 07-07-20 12 Cholesterol in HDL mass conc 49 mg/dL Normal [facility] Work Phone: [phone] Cholesterol in LDL mass conc 161 mg/dL High 0-130 [facility] Work Phone: [phone] Cholesterol mass conc 233 mg/dL High 200 [facility] Work Phone: [phone] Lipoprotein.pre-beta mass conc 23 mg/dL Normal 5-40 [facility] Work Phone: [phone] Triglyceride mass conc 116 mg/dL Normal [facility] Work Phone: [phone] Lab Report: LIVERon 07-07-20 12 Bilirubin.direct mass conc 0.14 mg/dL Normal 0.00-0.30 [facility] Work Phone: [phone] Lab Reporton 11-06-2011 Thyrotropin Qn 1.61 u[iU]/mL Invalid Interpretation Code [facility] Work Phone: [phone] basophils as percent of blood leukocytes, manual count 0.7 % Invalid Interpretation Code [facility] Work Phone: [phone] eosinophils as percent of blood leukocytes, manual count 4.5 % Invalid Interpretation Code [facility] Work Phone: [phone] neutrophils, band form as percent of blood leukocytes, manual count 50.5 % Invalid Interpretation Code [facility] Work Phone: [phone] Vital Signs Date Time Vital Sign Value Performing Clinician Facility 05-04-2025 07:20-0400 Body height 147.[address] Wolf Berry MD Work Phone: [facility] 05-04-2025 07:20-0400 Diastolic blood pressure 69 mm[Hg] Dr. Wolf Berry MD Work Phone: [facility] 05-04-2025 07:20-0400 Heart rate 61 /min Dr. Wolf Berry MD Work Phone: [facility] 05-04-2025 07:20-0400 Inhaled oxygen flow rate 2 L/min Dr. Wolf Berry MD Work Phone: [facility] 05-04-2025 07:20-0400 Respiratory rate 20 /min Dr. Wolf Berry MD Work Phone: [facility] 05-04-2025 07:20-0400 SaO2% (BldA) [Mass fraction] 98 % Dr. Wolf Berry MD Work Phone: [facility] 05-04-2025 07:20-0400 Systolic blood pressure 147 mm[Hg] Dr. Wolf Berry MD Work Phone: [facility] 02-04-2025 04:00-0400 Body temperature 98 [degF] Dr. Wolf Berry MD Work Phone: [facility] 02-04-2025 04:00-0400 Diastolic blood pressure 50 mm[Hg] Dr. Wolf Berry MD Work Phone: [facility] 02-04-2025 04:00-0400 Heart rate 61 /min Dr. Wolf Berry MD Work Phone: [facility] 02-04-2025 04:00-0400 Inhaled oxygen flow rate 2 L/min Dr. Wolf Berry MD Work Phone: [facility] 02-04-2025 04:00-0400 Respiratory rate 18 /min Dr. Wolf Berry MD Work Phone: [facility] 02-04-2025 04:00-0400 SaO2% (BldA) [Mass fraction] 96 % Dr. Wolf Berry MD Work Phone: [facility] 02-04-2025 04:00-0400 Systolic blood pressure 103 mm[Hg] Dr. Wolf Berry MD Work Phone: [phone] [place] [address] 02-03-2025 22:40-0400 Body height 147.[address] Wolf Berry MD Work Phone: [phone] [place] [address] 02-03-2025 22:40-0400 Body mass index (BMI) [Ratio] 50.7 kg/m2 Dr. oWlf Berry MD Work Phone: [phone] [place] [address] 02-03-2025 22:40-0400 Body weight 110.[address] Wolf Berry MD Work Phone: [phone] [place] [address] 11-26-2024 08:06-0400 Body temperature 97.8 [degF] Dr. Wolf Berry MD Work Phone: [phone] [place] [address] 11-26-2024 08:06-0400 Diastolic blood pressure 58 mm[Hg] Dr. Wolf Berry MD Work Phone: 0(089)838-183604 [place] [address] 11-26-2024 08:06-0400 Heart rate 53 /min Dr. Wolf Berry MD Work Phone: 1(893)629-278104 [place] [address] 11-26-2024 08:06-0400 Respiratory rate 15 /min Dr. Wolf Berry MD Work Phone: 0(978)487-038004 [place] [address] 11-26-2024 08:06-0400 Systolic blood pressure 140 mm[Hg] Dr. Wolf Berry MD Work Phone: 7(477)834-578560 [address] 10-31-2024 00:44-0500 Body height 152.[address] Wolf Berry MD Work Phone: 2(834)750-755904 [place] [address] 10-31-2024 00:44-0500 Inhaled oxygen flow rate 2 L/min Dr. Wolf Berry MD Work Phone: 4(343)570-549504 [place] [address] 10-27-2024 13:06-0500 Heart rate 64 /min Dr. Wolf Berry MD Work Phone: 6(584)168-404704 [place] [address] 10-27-2024 13:06-0500 Respiratory rate 16 /min Dr. Wolf Berry MD Work Phone: 4(338)757-448325 [place] [address] 10-27-2024 09:18-0500 Inhaled oxygen flow rate 2 L/min Dr. Wolf Berry MD Work Phone: 6(803)267-375460 [address] 10-27-2024 09:09-0500 Body temperature 97.9 [degF] Dr. Wolf Berry MD Work Phone: 4(842)622-861104 [place] [address] 10-27-2024 09:09-0500 Diastolic blood pressure 48 mm[Hg] Dr. Wolf Berry MD Work Phone: 7(876)141-490304 [place] [address] 10-27-2024 09:09-0500 SaO2% (BldA) [Mass fraction] 98 % Dr. Wolf Berry MD Work Phone: 4(011)078-819104 [place] [address] 10-27-2024 09:09-0500 Systolic blood pressure 135 mm[Hg] Dr. Wolf Berry MD Work Phone: 7(865)641-269704 [place] [address] 10-27-2024 06:00-0500 Body mass index (BMI) [Ratio] 44.1 kg/m2 Dr. Wolf Berry MD Work Phone: 7(254)152-069504 [place] [address] 10-27-2024 06:00-0500 Body weight 99.[address] Wolf Berry MD Work Phone: 4(610)960-833504 [place] [address] 10-22-2024 08:07-0500 Body temperature 97.1 [degF] Dr. Wolf Berry MD Work Phone: 7(836)837-402460 [address] 10-22-2024 08:07-0500 Diastolic blood pressure 55 mm[Hg] Dr. Wolf Berry MD Work Phone: 9(867)272-473004 [place] [address] 10-22-2024 08:07-0500 Heart rate 54 /min Dr. Wolf Berry MD Work Phone: 6(110)842-549560 [address] 10-22-2024 08:07-0500 Respiratory rate 18 /min Dr. Wolf Berry MD Work Phone: 5(914)419-980160 [address] 10-22-2024 08:07-0500 Systolic blood pressure 177 mm[Hg] Dr. Wolf Berry MD Work Phone: [facility] 10-03-2024 00:52-0500 Inhaled oxygen flow rate 2 L/min Dr. Wolf Berry MD Work Phone: [facility] 10-01-2024 08:22-0500 Body temperature 96.4 [degF] Dr. Wolf Berry MD Work Phone: 7(579)210-307660 [address] 10-01-2024 08:22-0500 Diastolic blood pressure 75 mm[Hg] Dr. Wolf Berry MD Work Phone: 6(417)394-807960 [address] 10-01-2024 08:22-0500 Heart rate 58 /min Dr. Wolf Berry MD Work Phone: 7(637)805-451060 [address] 10-01-2024 08:22-0500 Inhaled oxygen flow rate 2 L/min Dr. Wolf Berry MD Work Phone: 2(912)852-106260 [address] 10-01-2024 08:22-0500 Respiratory rate 18 /min Dr. Wolf Berry MD Work Phone: [facility] 10-01-2024 08:22-0500 Systolic blood pressure 157 mm[Hg] Dr. Wolf Berry MD Work Phone: [facility] 08-20-2024 08:17-0500 Body temperature 96.6 [degF] Dr. Wolf Berry MD Work Phone: [facility] 08-20-2024 08:17-0500 Diastolic blood pressure 69 mm[Hg] Dr. Wolf Berry MD Work Phone: [facility] 08-20-2024 08:17-0500 Heart rate 54 /min Dr. Wolf Berry MD Work Phone: [facility] 08-20-2024 08:17-0500 Respiratory rate 18 /min Dr. Wolf Berry MD Work Phone: [facility] 08-20-2024 08:17-0500 Systolic blood pressure 193 mm[Hg] Dr. Wolf Berry MD Work Phone: [facility] 09-24-2023 13:45-0500 Heart rate 89 /min Dr. Wolf Berry Work Phone: [facility] 09-24-2023 13:45-0500 Respiratory rate 20 /min Dr. Wolf Berry Work Phone: [facility] 09-24-2023 13:36-0500 Body temperature 98.1 [degF] Dr. Wolf Berry Work Phone: [facility] 09-24-2023 13:36-0500 Diastolic blood pressure 90 mm[Hg] Dr. Wolf Berry Work Phone: [facility] 09-24-2023 13:36-0500 Inhaled oxygen flow rate 2 L/min Dr. Wolf Berry Work Phone: [facility] 09-24-2023 13:36-0500 SaO2% (BldA) [Mass fraction] 94 % Dr. Wolf Berry Work Phone: [facility] 09-24-2023 13:36-0500 Systolic blood pressure 148 mm[Hg] Dr. Wolf Berry Work Phone: [facility] 09-24-2023 05:33-0500 Body mass index (BMI) [Ratio] 41.2 kg/m2 Dr. Wolf Berry Work Phone: [facility] 09-24-2023 05:33-0500 Body weight 95.[address] Wolf Berry Work Phone: [facility] 09-22-2023 13:59-0500 Body height 152.[address] Wolf Berry Work Phone: [facility] 09-22-2023 00:41-0500 Body temperature 96.8 [degF] [facility] 09-22-2023 00:41-0500 Diastolic blood pressure 48 mm[Hg] [facility] 09-22-2023 00:41-0500 Heart rate 78 /min [facility] 09-22-2023 00:41-0500 Respiratory rate 18 /min [facility] 09-22-2023 00:41-0500 SaO2% (BldA) [Mass fraction] 95 % [facility] 09-22-2023 00:41-0500 Systolic blood pressure 119 mm[Hg] [facility] 09-21-2023 22:38-0500 Inhaled oxygen concentration 40 % [facility] 09-21-2023 20:12-0500 Inhaled oxygen flow rate 2 L/min [facility] 09-21-2023 19:44-0500 Body height 154.94 cm [facility] 09-21-2023 19:44-0500 Body mass index (BMI) [Ratio] 41.3 kg/m2 [facility] 09-21-2023 19:44-0500 Body weight 99.3 kg [facility] 12-30-2022 10:17-0400 Body temperature 97 [degF] Wolf BARNEY [facility] 12-30-2022 10:17-0400 Diastolic blood pressure 52 mm[Hg] Wolf BARNEY [facility] 12-30-2022 10:17-0400 Heart rate 69 /min Wolf Berry [facility] 12-30-2022 10:17-0400 Respiratory rate 16 /min Wolf BARNEY [facility] 12-30-2022 10:17-0400 SaO2% (BldA) [Mass fraction] 96 % Wolf BARNEY [facility] 12-30-2022 10:17-0400 Systolic blood pressure 115 mm[Hg] Wolf BARNEY [facility] 12-30-2022 09:28-0400 Inhaled oxygen flow rate 2 L/min Wolf BARNEY [facility] 12-30-2022 07:10-0400 Body height 165.1 cm Wolf Berry [facility] 12-30-2022 07:10-0400 Body mass index (BMI) [Ratio] 36.2 kg/m2 Wolf Berry [facility] 12-30-2022 07:10-0400 Body weight 98.8 kg Wolf BARNEY [facility] 09-22-2022 15:00-0500 Inhaled oxygen flow rate 2 L/min [facility] 09-22-2022 14:45-0500 Body temperature 98.1 [degF] [facility] 09-22-2022 14:45-0500 Diastolic blood pressure 93 mm[Hg] [facility] 09-22-2022 14:45-0500 Heart rate 95 /min [facility] 09-22-2022 14:45-0500 Respiratory rate 18 /min [facility] 09-22-2022 14:45-0500 SaO2% (BldA) [Mass fraction] 95 % [facility] 09-22-2022 14:45-0500 Systolic blood pressure 149 mm[Hg] [facility] 09-21-2022 11:08-0500 Body height 165.1 cm [facility] 09-21-2022 11:08-0500 Body weight 100.47 kg [facility] 09-20-2022 17:28-0500 Body mass index (BMI) [Ratio] 36.8 kg/m2 [facility] 09-20-2022 16:10-0500 Body temperature 97.2 [degF] [facility] 09-20-2022 16:10-0500 Diastolic blood pressure 70 mm[Hg] [facility] 09-20-2022 16:10-0500 Heart rate 78 /min [facility] 09-20-2022 16:10-0500 Inhaled oxygen flow rate 4 L/min [facility] 09-20-2022 16:10-0500 Respiratory rate 22 /min [facility] 09-20-2022 16:10-0500 SaO2% (BldA) [Mass fraction] 92 % [facility] 09-20-2022 16:10-0500 Systolic blood pressure 148 mm[Hg] [facility] 09-20-2022 11:54-0500 Body height 165.1 cm [facility] 09-20-2022 11:54-0500 Body mass index (BMI) [Ratio] 37.9 kg/m2 [facility] 09-20-2022 11:54-0500 Body weight 103.4 kg [facility] 08-15-2022 13:51-0500 Body mass index (BMI) [Ratio] 41.7 kg/m2 [facility] 08-15-2022 13:51-0500 Body weight 103.41 kg [facility] 08-15-2022 13:51-0500 Diastolic blood pressure 83 mm[Hg] [facility] 08-15-2022 13:51-0500 Heart rate 80 /min [facility] 08-15-2022 13:51-0500 Respiratory rate 18 /min [facility] 08-15-2022 13:51-0500 SaO2% (BldA) [Mass fraction] 98 % [facility] 08-15-2022 13:51-0500 Systolic blood pressure 165 mm[Hg] [facility] 06-14-2022 13:29-0400 Body temperature 97.8 [degF] [facility] 06-14-2022 13:29-0400 Diastolic blood pressure 67 mm[Hg] [facility] 06-14-2022 13:29-0400 Heart rate 73 /min [facility] 06-14-2022 13:29-0400 Inhaled oxygen flow rate 2 L/min [facility] 06-14-2022 13:29-0400 Respiratory rate 18 /min [facility] 06-14-2022 13:29-0400 SaO2% (BldA) [Mass fraction] 97 % [facility] 06-14-2022 13:29-0400 Systolic blood pressure 145 mm[Hg] [facility] 05-01-2022 14:43-0400 Body temperature 97.8 [degF] [facility] Work Phone: 05-01-2022 14:43-0400 Body weight 94.8 kg [facility] Work Phone: 05-01-2022 14:43-0400 Diastolic blood pressure 98 mm[Hg] [facility] Work Phone: 05-01-2022 14:43-0400 Heart rate 62 /min [facility] Work Phone: 05-01-2022 14:43-0400 Respiratory rate 18 /min [facility] Work Phone: 05-01-2022 14:43-0400 SaO2% (BldA) [Mass fraction] 97 % [facility] Work Phone: 05-01-2022 14:43-0400 Systolic blood pressure 158 mm[Hg] [facility] Work Phone: 06-09-2017 12:27-0400 Body Temperature 97 [degF] Christopher Driver [place] Work Phone: 06-09-2017 12:27-0400 BP Diastolic 68 mm[Hg] [facility] [employer] Work Phone: 06-09-2017 12:27-0400 BP Systolic 130 mm[Hg] [facility] [employer] Work Phone: 06-09-2017 12:27-0400 Height 162.56 cm [facility] [employer] Work Phone: 06-09-2017 12:27-0400 Pulse (Heart Rate) 57 /min Christopher Driver [place] [employer] Work Phone: 06-09-2017 12:27-0400 Respiratory Rate 20 /min [facility] [employer] Work Phone: 06-05-2017 10:01-0400 BMI (Body Mass Index) 34.33 kg/m2 [facility] Work Phone: 06-05-2017 10:01-0400 BP Diastolic 62 mm[Hg] [facility] [employer] Work Phone: 06-05-2017 10:01-0400 BP Systolic 130 mm[Hg] [facility] [employer] Work Phone: 06-05-2017 10:01-0400 Height 162.56 cm [facility] [employer] Work Phone: 06-05-2017 10:01-0400 Pulse (Heart Rate) 56 /min [facility] Work Phone: 06-05-2017 10:01-0400 Respiratory Rate 20 /min [facility] Work Phone: 06-05-2017 10:01-0400 Weight 90.72 kg [facility] Work Phone: 06-04-2017 12:32-0400 Body Temperature 98.2 [degF] [facility] [employer] Work Phone: 10-28-2015 14:32-0500 BSA (Body Surface Area) 1.92 m2 [facility] Work Phone: 04-11-2015 14:55-0400 Heart rate 57 /min [facility] Work Phone: Encounters Encounter Date Encounter Type Care Provider Facility Start: 08-04-2025 ambulatory Wolf Berry Facility:[facility] Start: 06-18-2025 End: 06-18-2025 ambulatory TAMMIE ROSE Facility:[facility] Start: 05-24-2025 End: 05-24-2025 ambulatory THADDEUS GARCIA Facility:[facility] Start: 05-04-2025 End: 05-04-2025 Patient encounter procedure Neisha MEYERS -[facility] Work Phone: Start: 05-04-2025 End: 05-04-[address] Wolf Berry MD Work Phone: -[facility] Start: 04-02-2025 End: 04-02-2025 Patient encounter procedure Frances CROCKETT -[facility] Work Phone: Start: 04-02-2025 End: 04-02-[address] Wolf Berry MD Work Phone: -[facility] Start: 03-02-2025 ambulatory Wolf Berry Facility:[facility] Start: 02-03-2025 End: 02-04-2025 Emergency department patient visit Dr. Wolf Berry MD Work Phone: -Emergency Department Work Phone: Start: 01-14-2025 End: 01-14-2025 Patient encounter procedure Frances CROCKETT -Nuclear Medicine [facility] Work Phone: Start: 01-14-2025 End: 01-14-2025 ambulatory Wolf Berry Facility:[facility] Start: 12-30-2024 End: 12-30-2024 Patient encounter procedure Frances CROCKETT -[facility] Work Phone: Start: 12-30-2024 End: 12-30-2024 ambulatory Wolf Berry Facility:[facility] Start: 12-11-2024 ambulatory Jadon Dolan Facili ty:[facility] Start: 11-26-2024 End: 11-30-[address] Wolf Berry MD Work Phone: [facility] Work Phone: Start: 11-26-2024 End: 11-30-2024 Discharged Recurring Jadon Dolan DPM -[facility] Work Phone: Start: 10-27-2024 Non-patient / Non-visit Dr. Alfred Watson DO [facility] Work Phone: Start: 10-26-2024 Non-patient / Non-visit Dr. Alfred Watson DO [facility] Work Phone: Start: 10-25-2024 ambulatory Pan Alejanrda Facility: [facility] Start: 10-25-2024 End: 10-27-2024 Evaluation and management of inpatient Dr. Alfred Watson DO -[facility] 3 Work Phone: Start: 10-22-2024 End: 10-30-2024 [facility] Start: 10-22-2024 End: 10-30-2024 Discharged Recurring Jadon Dolan DPM -[facility] Work Phone: Start: 10-01-2024 End: 10-02-2024 [facility] Start: 10-01-2024 End: 10-02-2024 Discharged Recurring Jadon Dolan DPM -[facility] Work Phone: Start: 08-20-2024 End: 09-01-2024 ambulatory Jadon Dolan Facility:[facility] Start: 08-20-2024 End: 09-01-2024 Discharged Recurring Jadon Dolan DPM -[facility] Work Phone: Start: 08-06-2024 ambulatory Pepe Goode Facility :[facility] Start: 07-06-2024 End: 07-06-2024 ambulatory [facility] Facility:[facility] Start: 07-01-2024 ambulatory Luiz Land Facility:[facility] Start: 07-01-2024 End: 07-01-2024 ambulatory [facility] Facility:[facility] Start: 06-29-2024 End: 06-29-2024 ambulatory Wolf Berry Facility:[facility] Start: 06-25-2024 End: 06-25-2024 ambulatory Wolf Berry Facility:[facility] Start: 06-23-2024 End: 06-23-2024 ambulatory Wolf Berry Facility:[facility] Start: 09-24-2023 Non-patient / Non-visit Dr. Wolf Berry Work Phone: [facility] Work Phone: Start: 09-23-2023 Non-patient / Non-visit Dr. Wolf Berry Work Phone: [facility] Work Phone: Start: 09-22-2023 Non-patient / Non-visit Dr. Wolf Berry Work Phone: [facility] Work Phone: Start: 09-21-2023 End: 09-24-2023 [facility]: Start: 12-30-2022 End: 12-30-2022 Emergency department patient visit [facility] Start: 09-22-2022 Non-patient / Non-visit [facility] Start: 09-21-2022 Non-patient / Non-visit [facility] Start: 09-20-2022 Non-patient / Non-visit [facility] Start: 09-20-2022 End: 09-22-2022 [facility] Start: 09-20-2022 [facility] Start: 08-15-2022 End: 08-15-2022 Patient encounter procedure [facility] Start: 06-14-2022 End: 06-14-[address] [facility] Start: 06-14-2022 Non-patient / Non-visit [facility] Start: 06-14-2022 End: 06-14-2022 ambulatory [facility] Work Phone: Start: 06-14-2022 End: 06-14-2022 Patient encounter procedure [facility] Start: 05-22-2022 ambulatory Facility:[facility] Start: 05-01-2022 End: 05-01-[address] [facility] Procedures Date Procedure Procedure Detail Performing Clinician Start: 02-04-[address]25 [address] e detection Dr. Wolf Berry MD Work Phone: Start: 02-04-[address] Wolf Berry MD Work Phone: Start: 02-04-[address] Wolf Berry MD Work Phone: Start: 02-04-2025 Iadna-dna/rna gi pth gn multiplex probe tq 6-11 Dr. Wolf Berry MD Work Phone: Start: 02-03-2025 SARS-CoV-2, Influenz a & RSV (PCR) Dr. Wolf Berry MD Work Phone: Start: 02-03-2025 Urnls dip stick/tabl et reagent auto microscopy Dr. Wolf Berry MD Work Phone: Start: 02-03-2025 Plain chest X-ray Dr. Jason Berry MD Work Phone: Start: 02-03-[address] Wolf Berry MD Work Phone: Start: 01-14-2025 Radionuclide gastric emptying study Dr. Wolf Berry MD Work Phone: Start: 10-26-[address] Wolf Berry MD Work Phone: Start: 10-26-2024 Measurement of renal function Dr. Wolf Berry MD Work Phone: Comment on above: GFR Calc Start: 10-25-2024 Plain x-ray of pelvi s and lower extremity Dr. Wolf Berry MD Work Phone: Start: 10-25-2024 Computed tomography of thoracic spine without contrast Dr. Wolf Berry MD Work Phone: Start: 10-25-2024 CT cervical spine wi thout contrast Dr. Wolf Berry MD Work Phone: Start: 10-25-2024 CT of head without contrast Dr. Wolf Berry MD Work Phone: Start: 10-25-2024 CT of lumbar spine Dr. Wolf Berry MD Work Phone: Start: 09-22-2023 CT angiography of ch est with contrast Dr. Wolf Berry Work Phone: Start: 09-21-2023 Plain chest X-ray Start: 09-21-2023 Bacteria Detection (PCR) Dr. Wolf Berry Work Phone: Start: 09-21-2023 SARS-CoV-2, Influenz a & RSV (PCR) Start: 09-20-2022 CT angiography of ch est with contrast Wolf Berry Start: 09-20-2022 Plain [...] SAEED Sotelo MD Start: 04-11-2015 End: 04-11-2015 DIRECTOR ELECTRICAL ENGINEERING Jackie Pathak PA-C Work Phone: Start: 04-11-2015 [...] (M Wolf Berry Viral antigen assay Wolf kumar OLS Plan of Treatment Date Care Activity Detail Author Start: 02-04-2025 Bacteria identified in Urine by Culture Urine Culture [facility] Start: 02-04-2025 Enteric Bacteriology Enteric Bacteriology [facility] Start: 02-04-2025 [facility] Start: 02-04-2025 Enteric precautions [facility] Start: 02-04-2025 [facility] Start: 10-27-2024 Patient discharge [facility] Start: 10-26-2024 Measuring intake and output [facility] Start: 10-26-2024 Measuring intake and output [facility] Start: 10-26-2024 Measuring intake and output [facility] Start: 10-26-2024 Application of intermittent pneumatic compression device [facility] Start: 10-26-2024 Following clinical pathway protocol [facility] Start: 10-26-2024 Application of elastic bandage [facility] Start: 10-26-2024 Application of ice collar, cap or bag [facility] Start: 10-26-2024 Assessment of risk of venous thromboembolism [facility] Start: 10-26-2024 Bedrest [facility] Start: 10-26-2024 Fall prevention [facility] Start: 10-26-2024 Insertion of catheter into peripheral vein [facility] Start: 10-26-2024 Introduction of urinary catheter [facility] Start: 10-26-2024 Neurovascular assessment [facility] Start: 10-26-2024 Oxygen therapy [facility] Start: 10-26-2024 Providing care according to standard [facility] Start: 10-26-2024 Referral to occupational therapist [facility] Start: 10-26-2024 Referral to poultry hatchery manager [facility] Start: 10-26-2024 Referral to service [facility] Start: 10-26-2024 Skin care [facility] Start: 10-26-2024 [facility] Start: 10-26-2024 Measuring intake and output [facility] Start: 10-26-2024 Inhalation therapy procedure [facility] Start: 10-26-2024 Patient referral to dietitian [facility] Start: 10-25-2024 Admission procedure [facility] Start: 10-01-2023 Blood chemistry [facility] Start: 09-30-2023 Blood chemistry [facility] Start: 09-29-2023 Blood chemistry [facility] Start: 09-28-2023 Blood chemistry [facility] Start: 09-27-2023 Blood chemistry [facility] Start: 09-26-2023 Blood chemistry [facility] Start: 09-25-2023 Blood chemistry [facility] Start: 09-24-2023 Patient discharge [facility] Start: 09-23-2023 Inhalation therapy procedure [facility] Start: 09-22-2023 Thyroid stimulating hormone measurement [facility] Start: 09-22-2023 [facility] Start: 09-22-2023 Oxygen therapy [facility] Start: 09-22-2023 Following clinical pathway protocol [facility] Start: 09-22-2023 Gas panel - Arterial blood [facility] Start: 09-22-2023 CT angiography of chest with contrast CTA Chest W/WO Contrast [facility] Start: 09-22-2023 CTA Chest vessels WO and W contrast IV [facility] Start: 09-22-2023 Patient referral to dietitian [facility] Start: 09-21-2023 Assessment of risk of venous thromboembolism [facility] Start: 09-21-2023 Contact precautions [facility] Start: 09-21-2023 Incentive spirometry [facility] Start: 09-21-2023 Insertion of catheter into peripheral vein [facility] Start: 09-21-2023 Measuring intake and output [facility] Start: 09-21-2023 Providing care according to standard [facility] Start: 09-21-2023 Provision of activity privileges [facility] Start: 09-21-2023 Referral to occupational therapist [facility] Start: 09-21-2023 Referral to service [facility] Start: 09-21-2023 Verification routine [facility] Start: 09-21-2023 [facility] Start: 09-21-2023 End: 09-21-2023 Admission procedure [facility] Start: 09-21-2023 End: 09-21-2023 Blood culture [facility] Start: 09-21-2023 Continuous pulse oximetry [facility] Start: 09-21-2023 Dual pressure spontaneous ventilation support [facility] Start: 09-21-2023 [facility] Start: 09-21-2023 Bacteria identified in Blood by Culture Blood Culture [facility] Start: 09-22-2022 Patient discharge [facility] Start: 09-21-2022 Chart related administrative procedure [facility] Start: 09-21-2022 Physiotherapy of chest [facility] Start: 09-20-2022 Referral to service [facility] Start: 09-20-2022 Referral to occupational therapist [facility] Start: 09-20-2022 Assessment of risk of venous thromboembolism [facility] Start: 09-20-2022 Catheterization of vein [facility] Start: 09-20-2022 Insertion of catheter into peripheral vein [facility] Start: 09-20-2022 Providing care according to standard [facility] Start: 09-20-2022 Provision of activity privileges [facility] Start: 09-20-2022 [facility] Start: 09-20-2022 Admission procedure [facility] Start: 09-20-2022 Oxygen therapy [facility] Start: 09-20-2022 Following clinical pathway protocol [facility] Start: 09-20-2022 CT angiography of chest with contrast CTA Chest W/WO Contrast [facility] Start: 09-20-2022 CTA Chest vessels WO and W contrast IV [facility] Start: 09-20-2022 Blood culture [facility] Start: 09-20-2022 Inhalation therapy procedure [facility] Start: 12-05-2017 End: 12-05-2017 Appointment Appointment [facility] Work Phone: Start: 06-09-2017 End: 06-09-2017 Appointment Appointment [facility] Work Phone: Start: 06-05-2017 End: 06-05-2017 24 hour holter monitor 24 hour holter monitor [facility] Work Phone: Start: 06-05-2017 End: 06-05-2017 DIRECTOR ELECTRICAL ENGINEERING DIRECTOR ELECTRICAL ENGINEERING [facility] Work Phone: Start: 06-05-2017 End: 06-05-2017 Follow Up Appt 6 months Follow Up Appt 6 months [facility] Work Phone: Start: 06-05-2017 End: 06-05-2017 Appointment Appointment [facility] Work Phone: Start: 06-04-2017 End: 06-04-2017 Dup-scan xtr veins complete bilateral study Venous Doppler LE Right [facility] Work Phone: Start: 06-04-2017 End: 06-04-2017 Wound Clinic Referral Wound Clinic Referral [facility] Work Phone: Start: 12-20-2016 End: 05-22-2017 Follow Up Appt 1 year Follow Up Appt 1 year [facility] Work Phone: Start: 12-20-2016 End: 05-22-2017 MMM MMM [facility] Work Phone: Start: 04-30-2016 End: 04-30-2016 [facility] [facility] Work Phone: Start: 04-30-2016 End: 04-30-2016 Follow Up Appt 6 months Follow Up Appt 6 months [facility] Work Phone: Start: 10-28-2015 End: 10-28-2015 Follow Up Appt 6 months Follow Up Appt 6 months [facility] Work Phone: Start: 10-28-2015 End: 10-28-2015 MMM MMM [facility] Work Phone: Start: 04-11-2015 End: 04-11-2015 DIRECTOR ELECTRICAL ENGINEERING [email or web address] Work Phone: Start: 04-11-2015 End: 04-11-2015 Ecg routine ecg w/least 12 lds w/i&r EKG (In office) [facility] Work Phone: Start: 04-11-2015 End: 04-11-2015 Follow Up Appt 6 months Follow Up Appt 6 months [facility] Work Phone: Start: 12-03-2014 End: 12-06-2014 *BMP *BMP [facility] Work Phone: Start: 12-03-2014 End: 12-06-2014 *CBC with Differential *CBC with Differential [facility] Work Phone: Start: 12-03-2014 End: 12-03-2014 Echocardiography Echocardiogram (complete) [facility] Work Phone: Start: 12-03-2014 End: 12-03-2014 Follow Up Appt 4 months Follow Up Appt 4 months [facility] Work Phone: Start: 12-03-2014 End: 12-03-2014 MMM MMM [facility] Work Phone: Start: 12-03-2014 End: 12-06-2014 Natriuretic peptide B mass conc (Bld) *Brain Natriuretic Peptide BNP [facility] Work Phone: Start: 07-03-2013 End: 04-24-2016 *Hepatic Function Panel *Hepatic Function Panel [facility] Work Phone: Start: 07-03-2013 End: 04-24-2016 Lipid 1996 panel *Lipid Profile [facility] Work Phone: Start: 05-21-2012 End: 07-09-2012 *Hepatic Function Panel *Hepatic Function Panel [facility] Work Phone: Start: 05-21-2012 End: 05-21-2012 Follow Up Appt 1 year Follow Up Appt 1 year [facility] Work Phone: Start: 05-21-2012 End: 07-09-2012 Lipid 1996 panel *Lipid Profile [facility] Work Phone: Alanine aminotransfe rase [Enzymatic activity/volume] in Serum or Plasma [facility] Albumin [Mass/volume ] in Serum or Plasma [facility] Alkaline phosphatase [Enzymatic activity/volume] in Serum or Plasma [facility] Anion gap measurement [facility] Aspartate aminotrans ferase [Enzymatic activity/volume] in Serum or Plasma [facility] Bacteria identified in Blood by Culture Blood Culture [facility] Bacteria identified in Blood by Culture Blood Culture [facility] Bilirubin, total measurement [facility] Blood chemistry [facility] BUN/Creatinine ratio [facility] Calcium [Mass/volume ] in Serum or Plasma [facility] Carbon dioxide, tota l [Moles/volume] in Serum or Plasma [facility] CBC W Auto Different ial panel - Blood [facility] Chloride [Moles/volu me] in Serum or Plasma [facility] Creatinine [Moles/vo lume] in Serum or Plasma [facility] Erythrocyte mean corpuscular volume determination [facility] Glucose [Mass/volume ] in Serum or Plasma [facility] Hematocrit [Volume Fraction] of Blood [facility] Hemoglobin [Mass/vol ume] in Blood [facility] Leukocytes [#/volume ] in Blood [facility] Magnesium [Mass/volu me] in Serum or Plasma [facility] Mean corpuscular hemoglobin concentration determination [facility] Mean corpuscular hemoglobin determination [facility] Measurement of renal function [facility] Neutrophil count [facility] Neutrophil percent differential count [facility] Nucleic acid assay [facility] Patient Education [facility] Work Phone: Patient referral [facility] Work Phone: Platelets [#/volume] in Blood [facility] Potassium [Moles/vol ume] in Serum or Plasma [facility] Red blood cell count [facility] Red cell distributio n width determination [facility] SARS-CoV-2 (COVID-19 ) Ag [Presence] in Respiratory specimen by Rapid immunoassay [facility] SARS-CoV-2 Antigen (Rapid) SARS- CoV-2 Antigen (Rapid) [facility] Serum inorganic phos phate measurement [facility] Sodium [Moles/volume ] in Serum or Plasma [facility] Thyroid stimulating hormone measurement [facility] Total protein measurement [facility] Urea nitrogen [Mass/volume] in Serum or Plasma [facility] Urine culture [facility] Immunizations Immunization Date Immunization Notes Care Provider Fa cility 12-30-2022 tetanus toxoid, redu jes diphtheria toxoid, and acellular pertussis vaccine, adsorbed Wofl BARNEY [facility] 08-07-2021 Covid ([employer]) Dr. Wolf cullen MD Work Phone: [facility] 10-12-2020 Covid (Pfizer) Dr. Wolf cullen MD Work Phone: [facility] 09-21-2020 Covid (Pfizer) Dr. Wolf cullen MD Work Phone: [facility] 06-29-2015 influenza, injectabl e, quadrivalent, preservative free [facility] 06-29-2015 influenza, seasonal, injectable [facility] 05-27-2012 Influenza virus vaccine [facility] 10-27-2010 Pneumococcal Vaccine [facility] Work Phone: 10-27-2010 pneumococcal vaccine , unspecified formulation [facility] Payers Date Payer Category Payer Self-pay [id number] 2024 Unknown [id number] 2022 Unknown [id number] 2016 Unknown AARP [id number] 2009 Medicare MEDICARE PART A B [id number] 2009 Medicare [id number] Unknown [employer] [id number] Unknown [id number] Unknown [employer] [id number] Unknown [id number] 2.16.8 [id number] Unknown [id number] 2.16.8 [id number] Unknown [id number] 2.16.8 40.1.588813.3.579.2.462 Unknown [id number] 2.16.8 40.1.641060.3.579.2.462 Unknown [id number] 2.16.8 40.1.100876.3.579.2.462 Unknown [id number] 2.16.8 40.1.513761.3.579.2.462 Unknown [id number] 2.16.8 40.1.620060.3.579.2.462 Unknown [id number] 2.16.8 40.1.810855.3.579.2.462 Unknown [id number] 2.16.8 40.1.020022.3.579.2.462 Unknown [id number] 2.16.8 40.1.791031.3.579.2.462 Unknown [id number] 2.16.8 40.1.547495.3.579.2.462 Unknown [id number] 2.16.8 40.1.993425.3.579.2.462 Unknown [id number] 2.16.8 40.1.224832.3.579.2.462 Unknown [id number] 2.16.8 40.1.385770.3.579.2.462 Unknown [id number] 2.16.8 40.1.958270.3.579.2.462 Unknown [id number] 2.16.8 40.1.221203.3.579.2.462 Unknown [id number] 2.16.8 40.1.560606.3.579.2.462 Unknown [id number] 2.16.8 40.1.872420.3.579.2.462 Unknown [id number] 2.16.8 40.1.223220.3.579.2.462 Unknown [id number] 2.16.8 40.1.010062.3.579.2.462 Unknown [id number] 2.16.8 40.1.718333.3.579.2.462 Unknown [id number] 2.16.8 40.1.369229.3.579.2.462 Unknown [id number] 2.16.8 40.1.224257.3.579.2.462 Social History Date Type Detail Facility Start: 06-14-2022 End: 09-22-2023 Tobacco smoking status NHIS Unknown if ever smoked [facility] Start: 04-12-2020 None [facility] Start: 01-03-2021 Homeless [facility] Start: 01-03-2021 Non-smoker [facility] Start: 1945 Sex Assigned At Female [facility] Start: 10-25-2024 End: 02-03-2025 Tobacco smoking status NHIS Never smoked tobacco (finding) [facility] Start: 12-01-2024 Sex Female (finding) [facility] Goals Date Patient Goal Desired Activity /State Functional Status Date Assessment Result Facility 10-27-2024 Functional status Bedrest [facility] Work Phone: 09-24-2023 Functional status Bedrest [facility] Work Phone: 09-22-2022 [facility] Work Phone: Mental Status Date Assessment Result Facility 10-27-2024 Cognitive function Awake;Alert;A ppropriate;Fol lows Commands [facility] Work Phone: 10-26-2024 Cognitive function Appropriate;Cooperativ e [facility] Work Phone: 09-24-2023 Cognitive function Voice/Name [facility] Work Phone: 09-22-2022 Cognitive function Voice/Name [facility] Work Phone: Clinical Notes 09-20-2022 to 06-18-2025 Note Date & Type Note Facility 06-18-2025 Note HNO ID: [id number] Author: TAMMIE ROSE APRN.INSPECTOR STRUCTURAL BONDING Service: ? Author Type: Nurse Practitioner Type: Progress Notes Filed: 06/18/2025 12:56 Note Text: Pulmonary Medicine Patients name: Patricia Hawley PCP: Wolf Berry MD CC: follow-up HPI: Patricia Hawley is a 80 year old female never smoker with PMH significant for morbid obesity, HLD, HTN, PAD, ARCHANA not using CPAP, chronic hypoxemic respiratory failure C1 fracture, and is wheelchair-bound. New patient 05/24/25 for evaluation of shortness of breath which had progressively been worsening. She had been using supplemental O2 for 5 years but evaluation at her last visit did not show continued need for O2 during the day. Had previously been diagnosed with COPD. PFT at that visit did not show obstruction but did show restriction. Was instructed to stop Breo. Current therapy with Albuterol. Advised incentive spirometry and weight loss. She presents today for follow-up with her daughter and an aid from her facility. Since her last visit, she stopped using the Breo every day. Generally feels like her breathing is not as well controlled and also notes an increase in wheezing. She lives at assisted living and is having a hard time getting her Albuterol inhaler when she asks for it. When she's not allowed to use her inhaler, it causes her to be anxious which worsens her breathing. Per her daughter, they don't want to give her Albuterol unless she is really struggling to breath or her lips are blue. Today, patient reports occasional cough usually first thing in the morning. Will occasionally feel like she is short of breath. No fevers, chills, or night sweats. Notes lower extremity edema on occasion. 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 If you have any questions, ask your nurse or doctor. START taking these medications BREO ELLIPTA 50-25 mcg/dose inhaler Generic drug: fluticasone furoate-vilanterol Inhale 1 inhalation as instructed once daily. Started by: Tammie Rose APRN.INSPECTOR [employer]UCTURAL BONDING CHANGE how you take these medications sertraline 100 mg tablet Commonly known as: ZOLOFT What changed: when to take this additional instructions CONTINUE taking these medications * albuterol HFA 90 mcg/actuation inhaler Commonly known as: PROVENTIL HFA, VENTOLIN HFA * albuterol 2.5 mg /3 mL (0.083 %) nebulizer solution Commonly known as: PROVENTIL Use 3 mL via nebulizer every 6 hours as needed for Wheezing/Shortness of Breath. bisacodyl 10 mg Supp Commonly known as: DULCOLAX busPIRone 5 mg tablet Commonly known as: BUSPAR cholecalciferol (vitamin D3) 100 mcg (4,000 unit) Tab Cranberry 450 mg Tab Generic drug: cranberry fruit estradiol 0.01% estriol 0.01% cream (CPD) Gabapentin 300 mg Tab LASIX 20 mg tablet Generic drug: furosemide lubiprostone 8 mcg capsule Commonly known as: AMITIZA magnesium hydroxide 400 mg/5 mL suspension Commonly known as: MOM Melatonin 5 mg Cap Methenamine Hippurate 1 gram tablet Commonly known as: HIPREX MUCINEX FAST-MAX CHEST-CONGEST 100 mg/5 mL syrup Generic drug: guaiFENesin ondansetron 4 mg tablet Commonly known as: ZOFRAN PERCOCET 5-325 mg tablet Generic drug: oxyCODONE-acetaminophen polyethylene glycol 3350 17 gram packet POMEGRANATE ORAL potassium chloride ER 20 mEq tablet Commonly known as: KLOR-CON pravastatin 40 mg tablet Commonly known as: PRAVACHOL PROBIOTIC PO PROTONIX 40 mg tablet Generic drug: pantoprazole DR SENNA PLUS 8.6-50 mg per tablet Generic drug: senna-docusate * This list has 2 medication(s) that are the same as other medications prescribed for you. Read the directions carefully, and ask your doctor or other care provider to review them with you. Where to Get Your Medications You can get these medications from any pharmacy Bring a paper prescription for each of these medi (more content not included)... [facility] 06-18-2025 Note HNO ID: [id number] Author: TAMMIE ROSE APRN.INSPECTOR [employer]ING Service: ? Author Type: Nurse Practitioner Type: Progress Notes Filed: 06/18/2025 12:56 Note Text: Pulmonary Medicine Patients name: Patricia Hawley PCP: Wolf Berry MD CC: follow-up HPI: Patricia Hawley is a 80 year old female never smoker with PMH significant for morbid obesity, HLD, HTN, PAD, ARCHANA not using CPAP, chronic hypoxemic respiratory failure C1 fracture, and is wheelchair-bound. New patient 05/24/25 for evaluation of shortness of breath which had progressively been worsening. She had been using supplemental O2 for 5 years but evaluation at her last visit did not show continued need for O2 during the day. Had previously been diagnosed with COPD. PFT at that visit did not show obstruction but did show restriction. Was instructed to stop Breo. Current therapy with Albuterol. Advised incentive spirometry and weight loss. She presents today for follow-up with her daughter and an aid from her facility. Since her last visit, she stopped using the Breo every day. Generally feels like her breathing is not as well controlled and also notes an increase in wheezing. She lives at assisted living and is having a hard time getting her Albuterol inhaler when she asks for it. When she's not allowed to use her inhaler, it causes her to be anxious which worsens her breathing. Per her daughter, they don't want to give her Albuterol unless she is really struggling to breath or her lips are blue. Today, patient reports occasional cough usually first thing in the morning. Will occasionally feel like she is short of breath. No fevers, chills, or night sweats. Notes lower extremity edema on occasion. 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 If you have any questions, ask your nurse or doctor. CHANGE how you take these medications sertraline 100 mg tablet Commonly known as: ZOLOFT What changed: when to take this additional instructions CONTINUE taking these medications * albuterol HFA 90 mcg/actuation inhaler Commonly known as: PROVENTIL HFA, VENTOLIN HFA * albuterol 2.5 mg /3 mL (0.083 %) nebulizer solution Commonly known as: PROVENTIL Use 3 mL via nebulizer every 6 hours as needed for Wheezing/Shortness of Breath. bisacodyl 10 mg Supp Commonly known as: DULCOLAX BREO ELLIPTA 100-25 mcg/dose inhaler Generic drug: fluticasone-vilanterol busPIRone 5 mg tablet Commonly known as: BUSPAR cholecalciferol (vitamin D3) 100 mcg (4,000 unit) Tab Cranberry 450 mg Tab Generic drug: cranberry fruit estradiol 0.01% estriol 0.01% cream (CPD) Gabapentin 300 mg Tab LASIX 20 mg tablet Generic drug: furosemide lubiprostone 8 mcg capsule Commonly known as: AMITIZA magnesium hydroxide 400 mg/5 mL suspension Commonly known as: MOM Melatonin 5 mg Cap Methenamine Hippurate 1 gram tablet Commonly known as: HIPREX MUCINEX FAST-MAX CHEST-CONGEST 100 mg/5 mL syrup Generic drug: guaiFENesin ondansetron 4 mg tablet Commonly known as: ZOFRAN PERCOCET 5-325 mg tablet Generic drug: oxyCODONE-acetaminophen polyethylene glycol 3350 17 gram packet POMEGRANATE ORAL potassium chloride ER 20 mEq tablet Commonly known as: KLOR-CON pravastatin 40 mg tablet Commonly known as: PRAVACHOL PROBIOTIC PO PROTONIX 40 mg tablet Generic drug: pantoprazole SENJAVON PLUS 8.6-50 mg per tablet Generic drug: senna-docusate * This list has 2 medication(s) that are the same as other medications prescribed for you. Read the directions carefully, and ask your doctor or other care provider to review them with you. DATA: I personally reviewed and analyzed all labs, radiographs and available pulmonary function testing PFT: 05/24/25 Spirometry indicates no obstruction. The reduced FVC could indicate restriction, recommend lung volumes for definitive determination. (more content not included)... [facility] 05-24-2025 Note HNO ID: [id number] Author: THADDEUS GARCIA MD Service: ? Author Type: Physician Type: Progress Notes Filed: 05/24/2025 09:45 Note Text: . Respiratory [place] Note Patient name: Patricia Hawley PCP: Wolf Berry MD Referring Physician: Self CC: Shortness of breath HPI: Patricia Hawley 80 year old female never smoker resident of [facility] with PMH significant for morbid obesity, HLD, HTN, PAD, ARCHANA not using CPAP, chronic hypoxemic respiratory failure C1 fracture, wheelchair-bound being seen for COPD. Patient states he has been on oxygen for for 5 years. She carries a history of sleep apnea but has never used positive airway pressure in the past. She is wheelchair-bound due to C1 fracture but does not have chronic respiratory failure or quadriplegia. She has an progressive dyspnea, mainly with positional changes. She has clear mucus production with occasional chest congestion. She has been on Breo Ellipta which she does not believe is helpful. She carries a history of COPD but did not have pulmonary function testing until today. She has no history of asthma and is a lifelong non-smoker. 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 fluticasone-vilanterol (BREO ELLIPTA) 100-25 mcg/dose inhaler Inhale 1 inhalation as instructed once daily. busPIRone (BUSPAR) 5 mg tablet Take 5 mg by mouth three times a day. cholecalciferol, vitamin D3, 100 mcg (4,000 unit) tab Take by mouth. cranberry fruit (CRANBERRY) 450 mg tab Take by mouth. estradiol 0.01% estriol 0.01% cream (CPD) Use 1 application vaginally three times a week. For vaginal, surrounding external vaginal tissue, and topical use only. guaiFENesin (MUCINEX FAST-MAX CHEST-CONGEST) 100 mg/5 mL syrup Take 200 mg by mouth every 6 hours as needed for cough. furosemide (LASIX) 20 mg tablet Take 20 mg by mouth once daily. lubiprostone (AMITIZA) 8 mcg capsule Take 8 mcg by mouth two times a day with meals. Melatonin 5 mg cap Take by mouth. ondansetron (ZOFRAN) 4 mg tablet Take by mouth every 8 hours as needed for nausea/vomiting. pantoprazole DR (PROTONIX) 40 mg tablet Take 40 mg by mouth once daily. potassium chloride ER (KLOR-CON) 20 mEq tablet Take 40 mEq by mouth once daily. Lactobacillus acidophilus (PROBIOTIC ORAL) Take 1 tablet by mouth once daily. bisacodyl (DULCOLAX) 10 mg supp 10 mg by RECTAL route once daily as needed. magnesium hydroxide (MOM) 400 mg/5 mL suspension Take 30 mL by mouth once daily as needed. polyethylene glycol 3350 (MIRALAX, GLYCOLAX) 17 gram packet Take 17 g by mouth once daily. oxyCODONE-acetaminophen (PERCOCET) 5-325 mg tablet Take 1 tablet by mouth every 12 hours as needed. pomegranate xt/pomegranat seed (POMEGRANATE ORAL) Take 2 capsules by mouth once daily. albuterol (PROVENTIL) 2.5 mg /3 mL (0.083 %) nebulizer solution Use 3 mL via nebulizer every 6 hours as needed for Wheezing/Shortness of Breath. Methenamine Hippurate (HIPREX) 1 gram tablet Take 1 g by mouth twice daily with meals. sertraline (ZOLOFT) 100 mg tablet Take 100 mg by mouth twice daily. (Patient taking differently: Take 100 mg by mouth once daily. Taking 50mg in the morning and 100mg QHS) Gabapentin 300 mg Tab Take 300 mg by mouth three times daily. pravastatin 40 mg tablet Take 40 mg by mouth once daily. senna-docusate (SENNA PLUS) 8.6-50 mg per tablet Take 1 tablet by mouth twice daily as needed. SOCIAL HISTORY[1] Resident of extended-care facility FAMILY HISTORY Problem Relation Age of Onset Diabetes Mother other (CHF) Mother other (HTN) Father Lung Cancer Father Gastric Cancer Brother Liver Cancer Brother other (NHL) Brother PAST SURGICAL HISTORY Procedure Laterality Date ARTHRP ACETBLR/PROX FEM PROSTC AGRFT/ALGRFT Hip rep (more content not included)... [facility] 04-02-2025 Evaluation note Diagnosis Onset Date Resolution Bloating acute April 02 9:44am Early satiety acute April 02, 2025 9:44am IBS (irritable bowel syndrome) acute April 02, 2025 9:44am Essential (primary) hypertension chronic May 04 025 11:11am Hyperlipidemia chronic May 04, 2025 11:11am Non-ischemic cardiomyopathy chronic May 04 025 11:11am [facility] Work Phone: 1(253) 649-486306-05-2025 Radiology Diagnostic study note [facility] Imaging Services [address] [place] [address] Chest 1 View (Portable) MR#: [id number] Acct: [id number] Name: PATRICIA HAWLEY Rep #: [id number] : 1945 F 79 From: Vicki Eid MD PCP: Dr. Wolf Berry MD Status: REG E R Study:Chest 1 View (Portable) Date of Exam: 02/03/25 Exam# [id number] Ordering Dr: Mar Rhoades DO PROCEDURE: CHEST 1 VIEW (PORTABLE) 02/04/2025 REASON FOR EXAM: DYSPNEA TECHNIQUE: Frontal view of the chest. COMPARISON: Chest radiograph 09/21/2023 FINDINGS: Patient positioning limits this evaluation. There is streaky opacity at the lung bases. The costophrenic angles are not well visualized. Cardiomediastinal silhouette is not well evaluated. Cervical spinehardware is partiallyimaged. RAD/Chest 1 View (Portable) IMPRESSION: Limited exam due to patient positioning. Streaky bibasilar opacities may represent atelectasis, edema, and/or infection. Reading Location: [id number] CC: Dr. Wolf Berry MD; Cornelius Rhoades DO ~ Chief Lock Tender Operator: Signed [facility]04-30-2025 Evaluation note* Diagnosis Onset Date Resolution Status Admit Date Bloating acute December 30 10:54am Early satiety acute December 30, 2024 10:54am [facility] Work Phone: 1(179) 410-242603-27-2025 Progress note Author Jadon Dolan [facility] Note Date/Time November 26, 2024 9:2 6am [facility] [address] [place] [address] Progress Note - Wound Care 11/26/24 0918 MR#: [id number] Acct: [id number] Name: PATRICIA HAWLEY Rep #:[id number] : 1945 79 From: Jadon alvarez DPM [...] ulceration occurred after 2 aids at the [facility] facility transferred her utilizing a Jareth [...] second digit of the right foot. Accompaniedby displayer from facility. She has neuropathy and has [...] Date Recorded By Document 11/05/24 08:09 DL [id number] 11/05/24 08:18 DL Document 11/12/24 08:09 DL [id number] 11/12/24 08:16 DL Document 11/26/24 08:06 ML [id number] 11/26/24 08:16 ML 11/05/24 11/12/24 11/26/24 08:09 08:09 08:06 - Today's Visit Information Type of service Follow-up Visit Follow-up Visit Follow-up Visit (Physician/INSPECTOR STRUCTURAL BONDING (Physician/INSPECTOR STRUCTURAL BONDING (Physician/INSPECTOR STRUCTURAL BONDING ) ) ) Arrival Mode Wheelchair Wheelchair [...] Date Recorded By Document 11/05/24 08:09 DL [id number] 11/05/24 08:18 DL Document 11/12/24 08:09 DL [id number] 11/12/24 08:16 DL Document 11/26/24 08:06 ML [id number] 11/26/24 08:16 ML 11/05/24 11/12/24 11/26/24 08:09 [...] (67-100%) None Present (0 %) -Granulation Quality [place] -Slough/Fibrin No -Necrosis Amt Small (1-33%) None [...] Recorded Date Recorded By Document 11/05/24 08:41 [facility] [id number] 11/05/24 08:43 [facility] Document 11/12/24 08:37 [facility] [id number] 11/12/24 08:38 [facility] Document 11/26/24 08:31 [facility] [id number] 11/26/24 08:31 [facility] 11/05/24 11/12/24 11/26/24 08:41 08:37 08:31 Wound [...] Recorded Date Recorded By Document 11/05/24 08:58 BMF [id number] 11/05/24 08:59 BMF Document 11/12/24 09:00 DS [id number] 11/13/24 16:50 DS Document 11/26/24 08:42 ML [id number] 11/26/24 08:44 ML 11/05/24 11/12/24 11/26/24 08:58 [...] Ambulatory Status Wheelchair Transportation ecf Facility Type Purchasing Administrative Assistant Care Facility 11/26/24 08:43 Wound Center by Milagro Hughesib sent with pt and a note to [...] family. She is understanding as of today, 11/26/24 that if site does return ultimately procedure to remove a portion of bone would be recommended to prevent continued recidivism. Discussed signs and symptoms of infection with the patient and Lathe Machine Operator displayer today. Educated them that if patient experiences [...] Cosigner Signature (if applicable): CC: ~ Signed [facility] Work Phone: 1(984) 189-144803-27-2025 Progress note [facility] [address] [place] [address] Progress Note - Wound Care 11/26/24917 MR#: [id number] Acct: [id number] Name: PATRICIA HAWLEY Rep #:[id number] : 1945 79 From: Jadon alvarez DPM [...] ulceration occurred after 2 aids at the [facility] facility transferred her utilizing a Jareth [...] second digit of the right foot. Accompaniedby displayer from facility. She has neuropathy and has [...] Date Recorded By Document 11/05/24 08:09 DL [id number] 11/05/24 08:18 DL Document 11/12/24 08:09 DL [id number] 11/12/24 08:16 DL Document 11/26/24 08:06 ML [id number] 11/26/24 08:16 ML 11/05/24 11/12/24 11/26/24 08:09 08:09 08:06 - Today's Visit Information Type of service Follow-up Visit Follow-up Visit Follow-up Visit (Physician/INSPECTOR STRUCTURAL BONDING (Physician/INSPECTOR STRUCTURAL BONDING (Physician/INSPECTOR STRUCTURAL BONDING ) ) ) Arrival Mode Wheelchair Wheelchair [...] Date Recorded By Document 11/05/24 08:09 DL [id number] 11/05/24 08:18 DL Document 11/12/24 08:09 DL [id number] 11/12/24 08:16 DL Document 11/26/24 08:06 ML [id number] 11/26/24 08:16 ML 11/05/24 11/12/24 11/26/24 08:09 [...] (67-100%) None Present (0 %) -Granulation Quality [place] -Slough/Fibrin No -Necrosis Amt Small (1-33%) None [...] Recorded Date Recorded By Document 11/05/24 08:41 [facility] [id number] 11/05/24 08:43 [facility] Document 11/12/24 08:37 [facility] [id number] 11/12/24 08:38 [facility] Document 11/26/24 08:31 BM [id number] 11/26/24 08:31 BMF 11/05/24 11/12/24 11/26/24 08:41 [...] Recorded Date Recorded By Document 11/05/24 08:58 BMF [id number] 11/05/24 08:59 BM Document 11/12/24 09:00 DS [id number] 11/13/24 16:50 DS Document 11/26/24 08:42 ML [id number] 11/26/24 08:44 ML 11/05/24 11/12/24 11/26/24 08:58 [...] Ambulatory Status Wheelchair Transportation ecf Facility Type Skilled Nursing Care Facility 11/26/24 08:43 Wound Center by [...] symptoms of infection with the patient and Lathe Machine Operator displayer today. Educated them that if patient experiences [...] patient has any questions or concerns. 11/26/24 0995 Cosigner Signature (if applicable): CC: ~ Signed [facility]03-13-2025 Progress note Author Jadon Dolan [facility] Note Date/Time November 12, 2024 9:1 1am [facility] [address] [place] [address] Progress Note - Wound Care 11/12/24906 MR#: [id number] Acct: [id number] Name: PATRICIA HAWLEY Rep #:[id number] : 1945 79 From: Jadon alvarez DPM [...] ulceration occurred after 2 aids at the [facility] facility transferred her utilizing a Jarteh and bumped her toe against a refrigerator. [...] second digit of the right foot. Accompaniedby displayer from facility and daughter also present today. [...] Post-Debridement Measurements and Additional Note: Post-Debridement Measurements/Treatment WC - Nurse 1 - General Ulcer Assessment Start: 11/05/24 08:08 Freq: Status: Active Protocol: ISRAEL Activity Type Activity Date Activity User E-sign Co-sign Detail Recorded Client Recorded Date Recorded By Document 11/05/24 08:09 DL [id number] 11/05/24 08:18 DL Document 11/12/24 08:09 DL [id number] 11/12/24 08:16 DL 11/05/24 11/12/24 08:09 08:09 WC - Today's Visit Information Type of service Follow-up Visit Follow-up Visit (Physician/INSPECTOR STRUCTURAL BONDING (Physician/INSPECTOR STRUCTURAL BONDING ) ) Arrival Mode Wheelchair Wheelchair Transfer [...] Patient Pain Free? Yes Yes - Nurse 1 - General Ulcer Measurement Start: 11/05/24 08:08 Freq: Status: Active Protocol: Activity Type Activity Date Activity User E-sign Co-sign Detail Recorded Client Recorded Date Recorded By Document 11/05/24 08:09 DL [id number] 11/05/24 08:18 DL Document 11/12/24 08:09 DL [id number] 11/12/24 08:16 DL 11/05/24 11/12/24 08:09 08:09 [...] Amt Large (67-100%) Large (67-100%) -Granulation Quality [place] -Necrosis Amt Small (1-33%) None Present (0 [...] Recorded Date Recorded By Document 11/05/24 08:41 [facility] [id number] 11/05/24 08:43 [facility] Document 11/12/24 08:37 [facility] [id number] 11/12/24 08:38 [facility] 11/05/24 11/12/24 08:41 08:37 Wound Center [...] Recorded Date Recorded By Document 11/05/24 08:58 [facility] [id number] 11/05/24 08:59 [facility] 11/05/24 08:58 Wound Care Center Nurse 3 #4 R 2nd toe -Ulcer Cleansing Rinsed/ Irrigated with Saline -Foul Odor after Cleansing No -Other Dressing bandaid Treatment Response Procedure Tolerated Well Pain Scale: 0-10 Numeric Is Patient Pain Free? Yes WC - Visit Discharge Discharge Condition Stable Ambulatory Status Wheelchair Transportation ecf Facility Type Purchasing Administrative Assistant Care Facility Assessment/Plan Assessment/Plan (1) Non-pressure chronic [...] symptoms of infection with the patient and Lathe Machine Operator displayer today. Educated them that if patient experiences [...] Cosigner Signature (if applicable): CC: ~ Signed [facility] Work Phone: 1([phone]) 747-220003-13-2025 Progress note [facility] [address] [place] [address] Progress Note - Wound Care 11/12/24906 MR#: [id number] Acct: [id number] Name: PATRICIA HAWLEY Rep #:[id number] : 1945 79 From: Jadon alvarez DPM [...] ulceration occurred after 2 aids at the [facility] facility transferred her utilizing a Jareth and bumped her toe against a refrigerator. States she has been [facility] for continued care with Dr. Wroley and they were applying Betadine daily for [...] second digit of the right foot. Accompaniedby displayer from facility and daughter also present today. [...] 18 154/47 H 2 11/12/24 08:09 11/12/24 08:11/12/24 08:09 11/12/24 08:09 10/31/24 00:44 Oxygen Flow [...] Post-Debridement Measurements and Additional Note: Post-Debridement Measurements/Treatment WC - Nurse 1 - General Ulcer Assessment Start: 11/05/24 08:08 Freq: Status: Active Protocol: ISRAEL Activity Type Activity Date Activity User E-sign Co-sign Detail Recorded Client Recorded Date Recorded By Document 11/05/24 08:09 DL [id number] 11/05/24 08:18 DL Document 11/12/24 08:09 DL [id number] 11/12/24 08:16 DL 11/05/24 11/12/24 08:09 08:09 WC - Today's Visit Information Type of service Follow-up Visit Follow-up Visit (Physician/INSPECTOR STRUCTURAL BONDING (Physician/INSPECTOR STRUCTURAL BONDING ) ) Arrival Mode Wheelchair Wheelchair Transfer [...] Patient Pain Free? Yes Yes - Nurse 1 - General Ulcer Measurement Start: 11/05/24 08:08 Freq: Status: Active Protocol: Activity Type Activity Date Activity User E-sign Co-sign Detail Recorded Client Recorded Date Recorded By Document 11/05/24 08:09 DL [id number] 11/05/24 08:18 DL Document 11/12/24 08:09 DL [id number] 11/12/24 08:16 DL 11/05/24 11/12/24 08:09 08:09 [...] Amt Large (67-100%) Large (67-100%) -Granulation Quality [place] -Necrosis Amt Small (1-33%) None Present (0 [...] Recorded Date Recorded By Document 11/05/24 08:41 [facility] [id number] 11/05/24 08:43 [facility] Document 11/12/24 08:37 [facility] [id number] 11/12/24 08:38 [facility] 11/05/24 11/12/24 08:41 08:37 Wound Center [...] Recorded Date Recorded By Document 11/05/24 08:58 [facility] [id number] 11/05/24 08:59 [facility] 11/05/24 08:58 Wound Care Center Nurse 3 #4 R 2nd toe -Ulcer Cleansing Rinsed/ Irrigated with Saline -Foul Odor after Cleansing No -Other Dressing bandaid Treatment Response Procedure Tolerated Well Pain Scale: 0-10 Numeric Is Patient Pain Free? Yes WC - Visit Discharge Discharge Condition Stable Ambulatory Status Wheelchair Transportation ecf Facility Type Skilled Nursing Care Facility Assessment/Plan Assessment/Plan (1) Non-pressure chronic [...] symptoms of infection with the patient and Lathe Machine Operator displayer today. Educated them that if patient experiences [...] patient has any questions or concerns. 11/12/24 0965 Cosigner Signature (if applicable): CC: ~ Signed [facility] [id number] Progress note Author Jadon Dolan [facility] Note Date/Time November 05, 2024 7:57 am [facility] [address] [place] [address] Progress Note - Wound Care 11/05/24 0832 MR#: [id number] Acct: [id number] Name: PATRICIA HAWLEY Rep #:[id number] : 1945 79 From: Jadon alvarez DPM [...] ulceration occurred after 2 aids at the [facility] facility transferred her utilizing a Jareth [...] second digit of the right foot. Accompaniedby displayer from facility and daughter also present today. She has neuropathy and has no sensation to the foot. Persistent swelling remains to lower extremities. Graft has been left intact to Right foot. [facility] trochanteric/periprosthetic fracture ofthe [...] Date Recorded By Document 11/05/24 08:09 SHAWN [id number] 11/05/24 08:18 DL 11/05/24 08:09 - Today's Visit Information Type of service Follow-up Visit (Physician/INSPECTOR STRUCTURAL BONDING ) Arrival Mode Wheelchair Transfer Assistance None [...] Numeric Is Patient Pain Free? Yes - Nurse 1 - General Ulcer Measurement Start: 11/05/24 08:08 Freq: Status: Active Protocol: Activity Type Activity Date Activity User E-sign Co-sign Detail Recorded Client Recorded Date Recorded By Document 11/05/24 08:09 DL [id number] 11/05/24 08:18 DL 11/05/24 08:09 Wound Center [...] symptoms of infection with the patient and Lathe Machine Operator displayer today. Educated them that if patient experiences [...] the patient has any questions or concerns. 11/05/2457 <Electronically signed by Jadon Dolan DPM> Cosigner Signature (if applicable): CC: ~ Signed [facility] Work Phone: 1(636) 559-509803-06-2025 Progress note [facility] [address] [place] [address] Progress Note - Wound Care 11/05/24 0832 MR#: [id number] Acct: [id number] Name: PATRICIA HAWLEY Rep #:[id number] : 1945 79 From: Jadon alvarez DPM [...] ulceration occurred after 2 aids at the [facility] facility transferred her utilizing a Jareth [...] second digit of the right foot. Accompaniedby displayer from facility and daughter also present today. She has neuropathy and has no sensation to the foot. Persistent swelling remains to lower extremities. Graft has been left intact to Right foot. [facility] displaced trochanteric/periprosthetic fracture ofthe [...] Date Recorded By Document 11/05/24 08:09 DL [id number] 11/05/24 08:18 DL 11/05/24 08:09 - Today's Visit Information Type of service Follow-up Visit (Physician/INSPECTOR STRUCTURAL BONDING ) Arrival Mode Wheelchair Transfer Assistance None [...] Numeric Is Patient Pain Free? Yes - Nurse 1 - General Ulcer Measurement Start: 11/05/24 08:08 Freq: Status: Active Protocol: Activity Type Activity Date Activity User E-sign Co-sign Detail Recorded Client Recorded Date Recorded By Document 11/05/24 08:09 DL [id number] 11/05/24 08:18 DL 11/05/24 08:09 Wound Center [...] symptoms of infection with the patient and Lathe Machine Operator displayer today. Educated them that if patient experiences [...] Cosigner Signature (if applicable): CC: ~ Signed [facility]02-25-2025 [facility] Medical Records Department [address] [place] [address] Discharge Summary 10/27/24 1303 MR#: [id number] Acct: [id number] Name: PATRICIA HAWLEY Rep #: [id number] : 1945 79 From: Alfred Watson DO PCP: Dr. Wolf Berry MD Status:DIS IN Location[place] [facility] [id number] Providers Date of Admission: 10/25/24 Date of Discharge: 10/27/24 Primary Care Physician: Dr. Wolf Berry MD Consultations 10/26/24 01:44 Consult: Podiatry Routine Consulting Provider: Jadon Dolan Reason for Consult: R 2nd toe wound EMERGENT Consult: No MD Notified: Yes Date Notified: 10/26/24 Time Notified: 01:12 Method of Notification: Text Reason For Visit: FALL, PERIPROSTHETIC HIP FRACTURE Diagnosis Discharge Diagnosis (1) Periprosthetic fracture around internal prosthetic hip joint: Status: Acute Code(s): M97.8XXA - Periprosthetic fracture around other internal prosthetic joint, initial encounter; Z96.649 - Presence of unspecified artificial hip joint Plan 1. Right periprosthetic hip fracture secondary to osteoporosis-patient will continue on IV pain medications for her discomfort as well as oral pain medications. #2 chronic kidney disease stage IIIb-complicates care, management, recovery, and prognosis #3 essential hypertension-continue present medications, monitor blood pressure #4 chronic obstructive pulmonary disease-patient will remain on programmed aerosol treatments and as needed albuterol treatments #5 chronic debility-secondary to advanced age and multiple medical problems- patient will be returning to her intermediate care facility after hospitalization here #6 chronic hypoxic respiratory failure Total clinical time spent by myself addressing the patient's medical issues, reviewing all of her data, and collaborating with patient's care team: 35 minutes Medications at Discharge Home Medications pravastatin 40 mg tablet 40 mg PO QHS CHOLESTEROL 01/17/18 methenamine hippurate 1 gram tablet 1 g PO BID URINARY 04/12/20 metoprolol succinate 50 mg tablet,extended release 24 hr 50 mg PO DAILY HEART 06/07/20 fluticasone furoate 100 mcg-vilanterol 25 mcg/dose inhalation powder (Breo Ellipta) 1 inh inhalation DAILY breathing 08/03/21 cholecalciferol (vitamin D3) 100 mcg (4,000 unit) tablet 100 mcg PO DAILY SUPPLEMENT 02/13/22 ondansetron HCl 4 mg tablet 4 mg PO Q8H PRN Nausea 02/13/22 sennosides 8.6 mg-docusate sodium 50 mg tablet 1 tab PO BID PRN CONSTIPATION 02/13/22 aphzlpth-iuw-lzpis acid 0.4 mg-lycopene 300 mcg-lutein 250 mcg tablet (Centrum Silver) 1 tab PO DAILY vitamin 06/14/22 ULTRAFLORA IMMUNE HEALTH 170 mg PO/SL DAILY GUT HEALTH 09/20/22 guaifenesin 100 mg/5 mL oral liquid (Siltussin SA) 200 mg PO Q6H PRN COUGH/SORE THROAT 09/20/22 melatonin 5 mg tablet 5 mg PO QHS SLEEP 09/20/22 sertraline 100 mg tablet 200 mg PO DAILY DEPRESSION 09/20/22 hydrocortisone 1 % topical cream (Preparation H Hydrocortisone) 1 applic topical TID PRN Hemorrhoids 09/21/22 buspirone 5 mg tablet 5 mg PO TID mental health 03/14/23 menthol 4 % topical gel (Biofreeze (menthol)) 1 applic topical BID PRN pain 09/21/23 polyethylene glycol 3350 17 gram/dose oral powder (ClearLax) 17 g PO DAILY PRN constipation 09/21/23 bisacodyl 10 mg rectal suppository 10 mg UT DAILY PRN constipation 03/14/24 estradiol 0.01% (0.1 mg/gram) vaginal cream 1 appful vaginal .COMPLEX 03/14/24 magnesium hydroxide 400 mg/5 mL oral suspension (Dulcolax (magnesium hydroxide)) 30 ml PO DAILY PRN constipation 03/14/24 albuterol sulfate 90 mcg/actuation breath activated powder inhaler 2 inh inhalation Q4H 10/25/24 acetaminophen 325 mg tablet 650 mg (2 x 325 mg) PO Q4H PRN PRN Fever, pain 1- 10/10 #0 tabs 10/27/24 albuterol sulfate 2.5 mg/3 mL (0.083 %) solution for nebulization 2.5 mg (3 mL) inhalation Q2H PRN PRN Dyspnea, wheezing #0 mL 10/27/24 gabapentin 300 mg capsule 300 mg PO TID #0 caps 10/27/24 menthol 0.44 %-zinc oxide 20.6 % topical ointment (Calmoseptine) 1 applic topical 4X/DAY #0 grams 10/27/24 oxycodone 5 mg tablet 5 - 10 mg (1 - 2 x 5 mg) PO Q4H PRN PRN Pain Score 4-10 5 days #15 tabs 10/27/24 Hospital Course Operations None Procedures None Summary of Care Provided Minutes Spent on Discharge: 32 Hospital Course: This 79-year-old white female was seen in the emergency room at [facility] after being transported from an intermediate care facility after she had a mechanical fall when her wheelchair tipped over and she landed on her right hip. She complained of right hip pain, patient is nonambulatory at baseline. X-rays of the right hip revealed an acute mildly displaced periprosthetic fracture. Discussion was carried out with orthopedic surgery by phone and orthopedic surgery felt that this was a nonsurgical issue. Patient was admitted to MedSurg 3, she was given pain medication a (more content not included)...[facility] 10-26-2024 [facility] Medical Records Department [address] [place] [address] Consultation 10/26/24837 MR#: [id number] Acct: [id number] Name: PATRICIA HAWLEY Rep #: [id number] : 1945 79 From: Jadon Dolan DPM PCP: Dr. Wolf Berry MD Status:ADM IN Location: MS3 [id number] Assessment Plan Assessment/Plan (1) Non-pressure chronic ulcer of other part of right foot with fat layer exposed: (2) Neuropathy: (3) Venous insufficiency (chronic) (peripheral): (4) Bilateral edema of lower extremity: (5) Periprosthetic fracture around internal prosthetic hip joint: PLAN: Plan Patient seen and evaluated Right foot: Superficial ulceration dorsal second digit overlying the PIPJ right foot which had been healing well with placement of advanced wound care product/stem cell graft. Most recent placement of graft 10/22/2024. Graft currently remains in place to the second digit. No signs of infection. WBC 10.4 Currently admitted for acute trochanteric periprosthetic fracture of the Right hip which is non- operable. Patient is non-ambulatory and achieves mobility via wheelchair. Medicine team following for medical management, they are appreciated Currently on IV pain medication. At this time from podiatric standpoint no surgical intervention is required for her 2nd digit. Discussed with the patient and nursing staff that the current graft with recent placement last Thrusday 10/22/[address] They may change outer dressings as needed. Discussed with the patient on discharge will resume following the wound care center for additional placement of grafts and continued healing of the ulceration site. Podiatry will continue to follow from a distance. Jadon Dolan Jr., D.P.M [facility] [phone] HPI Consult Data Date of Consult: 10/26/24 HPI Narrative Reason for Consultation: Second digit ulceration right foot HPI Narrative: PATRICIA HAWLEY, is a 79 F who presents to [facility] on 10/26/2024 with complaint of increased right hip pain following fall from [facility] transport at [facility]. Reports immediate pain upon fall. She has PMHx of HTN, HLD, CKD stage III, obesity, chronic ulceration of second digit of the right foot. In the ED radiographs were obtained demonstrating trochanteric periprosthetic fracture of the right hip. Was admitted for pain control. She had been following with me in the wound care center for chronic ulceration of the second with placement of advanced wound care product/stem cell grafting with most recent placement of graft to 10/22/2024. She was consulted to podiatry for examination and guidance of care. [facility] Medical History Hydronephrosis Hyperlipidemia Acute hypoxic respiratory failure Vertebral osteomyelitis Abnormal spinal diagnostic imaging History of COPD History of hypertension Fatigue Non-ischemic cardiomyopathy Abnormal CT of thoracic spine Soft tissue mass Vitamin D deficiency Depression Anxiety Chronic back pain Chronic obstructive pulmonary disease Venous insufficiency of right leg PVD (peripheral vascular disease) DDD (degenerative disc disease) COPD (chronic obstructive pulmonary disease) Essential (primary) hypertension MRSA (methicillin resistant staph aureus) culture positive Hemorrhoids Venous ulcer of left lower extremity without varicose veins 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 Foot drop, right Malnutrition Home Medications ???Medication ???Instructions ???Recorded ???Last Taken ???Type pravastatin 40 mg tablet 40 mg PO QHS CHOLESTEROL 01/17/18 03/13/24 History methenamine hippurate 1 gram tablet 1 g PO BID URINARY 04/12/20 History metoprolol succinate 50 mg 50 mg PO DAILY HEART 06/07/2003/02 History tablet,extended release 24 hr fluticasone furoate 100 1 inh inhalation DAILY breathing 1 10/04/20 09/20/22 History mcg-vilanterol 25 mcg/dose inhalation powder (Breo Ellipta) cholecalciferol (vitamin D3) 100 100 mcg PO DAILY SUPPLEMENT 03/14/24 History mcg (4,000 unit) tablet ondansetron HCl 4 mg tablet 4 mg PO Q8H PRN Nausea 02/13/22 Un known History sennosides 8.6 mg-docusate sodium 1 tab PO BID PRN CONSTIPATION 03/14/24 History 50 mg tablet agmbzcbo-rtp-qbmrt acid 0.4 1 tab PO DAILY vitamin 06/14/22 History mg-lycopene 300 mcg-lutein 250 mcg tablet (Centrum Silver) ULTRAFLORA IMMUNE HEALTH 170 mg PO/SL DAILY GUT HEALTH 09/0209/19/22 History acetaminophen 500 mg tablet 500 mg PO Q6H PRN Pain 09/20/22 History albuterol sulfate 2.5 mg/3 mL 2.5 mg inhalation Q4H PRN 09/20/22 09/20/22 History (0.083 %) solution for nebulizat (more content not included)...[facility]02-20-2025 Evaluation note* Diagnosis Onset Date Resolution Status Admit Date Bilateral edema of lower extremity inactive October 22, 025 8:00am Neuropathy inactive October 22, 2024 8:00am Non-pressure chronic ulcer o f other part of right foot with fat layer exposed inactive October 22, 2024 8:00am Venous insufficiency (chroni c) (peripheral) inactive October 22 025 8:00am Bilateral edema of lower extremity inactive October 25 025 11:21pm Neuropathy inactive October 25, 2024 11:21pm Non-pressure chronic ulcer o f other part of right foot with fat layer exposed inactive October 25, 2024 11:21pm 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 inactive Fe bruary 2024 11:21pm Venous insufficiency (chroni c) (peripheral) inactive October 25, 025 11:21pm Edema, lower extremity inactive [facility] 2024 8:00am Neuropathy inactive November 26 8:00am Non-pressure chronic ulcer o f other part of right foot with fat layer exposed inactive November 26 8:00am Venous insufficiency (chroni c) (peripheral) inactive November 26, 2024 8:00am Bloating acute December 30 10:54am Early satiety acute December 30, 2024 10:54am [facility] Work Phone: 1(546) 342-941112-19-2024 Evaluation note* Diagnosis Onset Date Resolution Status [...] arou nd internal prosthetic hip joint inactive [facility] 2024 11:21pm Venous insufficiency (chroni c) (peripheral) inactive October 25, 025 11:21pm Edema, lower extremity inactive [facility] 2024 8:00am Neuropathy inactive November 26 8:00am Non-pressure chronic ulcer o f other part of right foot with fat layer exposed inactive November 26 8:00am Venous insufficiency (chroni c) (peripheral) inactive November 26, 2024 8:00am [facility] Work Phone: 1(524) 658-634206-06-2024 Hospital Discharge instructions Additional Instructions Please stop the Omnicef/cefdinir as the urine sample today still shows signs of infection indicating it is most likely not working. The patient does not have findings for acute kidney injury or urosepsis. I did review her urine culture from roughly 1 year ago March 11, 2024 and at that time it grew out Proteus and it was resistant to most medications except for injectable. There is high likelihood that today's urine sample/culture will grow out something similar with multiple drug-resistant bacteria. Therefore please use the IV that was left in place from the ER to provide ertapenem which was also prescribed from the ER once a day for the next 7 days. This should resolve the UTI and prevent progression to urosepsis. The patient's diarrhea is most likely related to the Omnicef use. This should improve with the cessation of the drug. If the patient develops a fever or worsening mental status or there is any further concerns that the outpatient treatment regimen is not working please have her [facility] Phone: 1(755) 557-468901-23-2024 Discharge summary Author Mary [facility] September 24, 2023 11:57am Note Date/Time September 24, 2023 1 1:57am [facility] Medical Records Department [address] [address] Transfer to [facility] MR#: [id number] Acct: [id number] Name: PATRICIA HAWLEY Rep #:[id number] : 1945 78 From: Mary Cobos MD PCP: Dr. Wolf Berry MD Status:ADM I N Certification of patient admission REQUIRED AT TIME OF ADMISSION. I CERTIFY THAT POST-HOSPITAL ECF SERVICES ARE REQUIRED TO BE GIVEN ON AN IN-PATIENT BASIS BECAUSE OF THE ABOVE NAMED PATIENT'S NEED FOR USP CARE ON A CONTINUING BASIS FOR THE CONDITION(S) FOR WHICH HE/SHE WAS RECEIVING IN-PATIENT HOSPITAL SERVICES PRIOR TO HIS/HER TRANSFER TO THE [facility]. 09/24/23 1157<Electronically signed by Mary Cobos MD> [...] in before D/C Order can be placed): [facility] 09/24/23 1157 <Electronically signed by Mary Cobos MD> Cosigner Signature (if applicable): CC: Dr. Luna Dobbs DO; Dr. Germain Pettit MD; Dr. Wolf Berry MD~ [facility] Work Phone: 1(647) 345-912501-22-2024 Progress note Author [facility] September 23, 2023 4:26pm Note Date/Time September 23, 2023 2 :02pm [facility] System Medical Records Department [address] [place] [address] Progress Note 09/23/23 1400 MR#: [id number] Acct: [id number] Name: PATRICIA HAWLEY Rep #:[id number] : 1945 78 From: Mary Cobos MD PCP: Dr. Wolf Berry MD Status:ADM I N Location: [place] [address] Subjective Subjective Patient seen and examined. She [...] 2355 2365.00 / 2365.00 Output Total 2024 / 2024 1150 / 1150 Balance 330 / [...] 86.0 H, Lymph % (Auto) 8.5 L, [place] % (Auto) 4.3, Eos % (Auto) 0.0, [...] out DVT Charges/Coding Visit Charges Inpatient E&M: 94827 Subs Hosp L2 09/23/23 1626 <Electronically signed by Mary Cobos MD> Mary Cobos MD Cosigner Signature (if applicable): CC: ~ Signed [facility] Work Phone: 1(779) 284-664401-21-2024 Progress note Author Germain Pettit [facility] September 22, 2023 9:49am Note Date/Time September 22, 2023 9 :10am [facility] System Medical Records Department [address] [place] [address] Progress Note - Hospitalist 09/22/23906 MR#: [id number] Acct: [id number] Name: PATRICIA HAWLEY Rep #:[id number] : 1945 78 From: Germain thomas MD PCP: Dr. Wolf Berry MD Status:ADM I N Location: [place] [address] Subjective Subjective Doing well, no issues overnight. [...] 75.8 H, Lymph % (Auto) 13.1 L, [place] % (Auto) 9.8, Eos % (Auto) 0.4, [...] 87.0 H, Lymph % (Auto) 9.6 L, [place] % (Auto) 2.8, Eos % (Auto) 0.0, [...] Therapeutic Lovenox Charges/Coding Visit Charges Inpatient E&M: 06747 Subs Hosp L2 09/22/23 0949 <Electronically signed by Germain Pettit MD> Cosigner Signature (if applicable): CC: ~ Signed [facility] Work Phone: 1(818) 879-631301-21-2024 History and physical note Author Luna Gray [facility] September 22, 2023 5:21am Note Date/Time September 21, 2023 1 1:53pm [facility] System Medical Records Department [address] [place] [address] H&P Exam - Hospitalist 09/21/23 1063 MR#: [id number] Acct: [id number] Name: PATRICIA HAWLEY Rep #:[id number] : 1945 78 From: Luna Christie DO PCP: Dr. Wolf Berry MD Status:ADM I N Location: [address] HPI - General General Date of Admission: [...] STATUS; with no intubation who presents to [facility] ER complaining of shortness of breath and fever with chills and flu- like symptoms. Ms. Hawley reports her symptoms began approximately 1 week prior to admission with a gradual onset of malaise, fatigue, decreased appetite with fever and shortness of breath with some other residents at the [facility] testing positivefor COVID-19. She also admits [...] expected to be greater than 48 hours. [facility] Medical History Abnormal CT of [...] PRN CONSTIPATION 02/13/22 [History Last Taken 09/20/22] stydjzsf-ygc-leple acid 0.4 mg-lycopene 300 mcg-lutein 250 mcg [...] in: none additional social history: Lives at [facility] Narrative Review of systems: General: Patient [...] 75.8 H, Lymph % (Auto) 13.1 L, [place] % (Auto) 9.8, Eos % (Auto) 0.4, [...] 21:18 EST Reading Location ID and State: [facility] / [place] Tel , Service support , Assessment & Plan Assessment/Plan (1) Multifocal pneumonia: (2) COPD exacerbation: (3) Acute hypoxic respiratory failure: (4) D-dimer, elevated: PLAN: Plan 1. Multifocal Pneumonia with Acute exacerbation of COPD in the setting of DNR- CCA CODE STATUS; with no intubation - Admit to PCU. Continue broad-spectrum antibiotics, IV Solumedrol and nebulizers. Aim to keep oxygen saturations from 88-92%. 2. Lbevl-hq-ntcwsei hypoxic respiratory failure requiring BiPAP due to [...] 55 minutes. Charges/Coding Visit Charges Inpatient E&M: 51419 Init Hosp L2 09/22/23 0521 <Electronically signed by Luna Dobbs DO> Cosigner Signature (if applicable): CC: Dr. Luna Dobbs DO; Dr. Wolf Berry MD~ Signed [facility] Work Phone: 1([phone]) 278-349701-21-2024 Discharge summary Author Nancy Alcocer [facility] September 22, 2023 2:47am Note Date/Time September 21, 2023 8 :16pm [facility] System Medical Records Department [address] [place] [address] Emergency Department Summary 09/21/23 MR#: [id number] Acct: [id number] Name: PATRICIA HAWLEY Rep #:[id number] : 1945 78 From: Nancy Alcocer MD PCP: Dr. Wolf Berry MD Status:ADM I N Location: [place] [id number] 1 HPI <BON Weir - Last Filed: 09/21/23 21:15> History of Present Illness Chief Complaint: Shortness of Breath Narrative Narrative: Patient presenting with flulike symptoms she has had for the past several days. She does report that she was recently exposed to COVID at the [place] [facility]. She has had a fever, cough, shortness of breath, fatigue, decreased appetite, nausea, and a few episodes of vomiting. She does report having midsternal chest pain. She has a history of COPD and does wear 2 L O2 atbaseline, she reports that at times this does have to be adjusted. [facility] <BON Weir - Last Filed: 09/21/23 21:15> [facility] Medical History Abnormal CT of [...] PRN CONSTIPATION 02/13/22 [History Last Taken 09/20/22] iycbmuow-khx-rftkc acid 0.4 mg-lycopene 300 mcg-lutein 250 mcg [...] in: none additional social history: Lives at [facility] <BON Weir - Last Filed: 09/21/23 21:15> ROS ED Constitutional Constitutional ED: Reports chills and [...] <BON Weir - Last Filed: 09/21/23 21:15> [facility] Narrative Medical decision making narrative: Patient presenting [...] 75.8 H Lymph % (Auto) 13.1 L [place] % (Auto) 9.8 Eos % (Auto) 0.4 [...] Jan Pérez MD at 21:18 EST , <Dr. Nancy Alcocer MD - Last Filed: 09/21/23 22:37> [facility] Lab Data Labs: Laboratory Results - last 24 hr 09/21/23 09/21/23 20:25 20:40 WBC 15.8 H RBC 3.87 L Hgb 11.7 L Hct 37.5 MCV 96.9 MCH 30.2 MCHC 31.2 L RDW Std Deviation 45.1 H RDW Coeff of Zach 12.8 Plt Count 279 MPV 10.3 Immature Gran % (Auto) 0.500 Neut % (Auto) 75.8 H Lymph % (Auto) 13.1 L [place] % (Auto) 9.8 Eos % (Auto) 0.4 [...] 21:18 EST Reading Location ID and State: [facility] / [place] Tel , Service support , EKG Initial EKG: Attestation: I personally [...] treatment. Patient seen and evaluated with physicians apartment assistant manager. Patient presented from local [facility] via EMS with confusion, fever, shortness of [...] soft and nontender. Patient was placed on satellite project site monitor. IV line initiated. Cultures obtained. Labwork obtained [...] your Primary Care Provider. Call [facility] ([phone]) or report to the closest Emergency Room. Call 911 if necessary. 09/22/23246 <Electronically signed by Nancy Alcocer MD> Cosigner Signature (if applicable): 09/21/232114 <Electronically signed by Kianna CROCKETT> CC: Dr. Wolf Berry MD ~ Signed [facility] Work Phone: [phone] 159-929801-21-[address] Ji [facility] September 22, 2022 9:54am Note Date/Time September 22, 2022 9 :54am [facility] Medical Records Department [address] [place] [address] Discharge Summary 09/22/22 0953 MR#: [id number] Acct: [id number] Name: PATRICIA HAWLEY Rep #:[id number] : 1945 77 From: Luiz Ji DO PCP: Wolf Berry Status:ADM IN Location: [place] [address] Providers Date of Admission: 09/20/22 Primary Care [...] probable early osteomyelitis. Pt was transferred to [facility] at that time. This may be old. Reviewed records from [facility] from April 2020. Pt had 6 weeks of IV abx. Seen by neurosurgery and no plans for surgical intervention. (Pt states she wouldn't want any). No additional work up. Follow up with neursurgery PRN. Plan Chronic conditions: * COPD: BDs. Prednisone for 5 days. * debility: unclear baseline performance status. I suspect poor as she is an [facility] resident. PT OT. * HTN: continue furosemide [...] 1 tab PO BID PRN CONSTIPATION 02/13/22 ppnabfxe-vzx-iyqxe acid 0.4 mg-lycopene 300 mcg-lutein 250 mcg [...] 82.0 H, Lymph % (Auto) 10.2 L, [place] % (Auto) 6.1, Eos % (Auto) 0.0, [...] NH/Intermed Care Charges/Coding Visit Charges Inpatient E&M: 80244 Disch Hosp >30min 09/22/22 0954 <Electronically signed by Luiz Ji DO> Cosigner Signature (if applicable): CC: Dr. Luiz Ji DO; Wolf Berry~ Signed [facility] Work Phone: 1([phone]) 657-116301-21-[address] Ji [facility] September 22, 2022 9:53am Note Date/Time September 22, 2022 9 :44am [facility] Medical Records Department [address] [place] [address] Transfer to [facility] MR#: [id number] Acct: [id number] Name: PATRICIA HAWLEY Rep #:[id number] : 1945 77 From: Luiz Ji DO PCP: Wolf Berry Status:ADM IN Certification of patient admission REQUIRED AT TIME OF ADMISSION. I CERTIFY THAT POST-HOSPITAL ECF SERVICES ARE REQUIRED TO BE GIVEN ON AN IN-PATIENT BASIS BECAUSE OF THE ABOVE NAMED PATIENT'S NEED FOR USP CARE ON A CONTINUING BASIS FOR THE CONDITION(S) FOR WHICH HE/SHE WAS RECEIVING IN-PATIENT HOSPITAL SERVICES PRIOR TO HIS/HER TRANSFER TO THE F. 09/22/22 0953<Electronically signed by Luiz Ji DO> Diet Diet Order/Speech Therapy: 09/20/22 17:26 Diet: Regular - General Food consistency:: Regular Liquid Consistency:: Regular/Thin Type of Dietary Supplement:: van Ensure Compact tid Is pt able to select menu?: No Diet Comments: Mech soft for tough meats and vegetables only, [...] probable early osteomyelitis. Pt was transferred to [facility] at that time. This may be old. Reviewed records from [facility] from April 2020. Pt had 6 weeks of IV abx. Seen by neurosurgery and no plans for surgical intervention. (Pt states she wouldn't want any). No additional work up. Follow up with neursurgery PRN. Plan Chronic conditions: * COPD: BDs * debility: unclear baseline performance status. I suspect poor as she is an [facility] resident. PT OT. 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 Discharge Plan Admission Admit Date/Time: 09/20/22 [...] can be placed): NonSkilled NH/Intermed Care 09/22/22 0953 <Electronically signed by Luiz Ji DO> Cosigner Signature (if applicable): CC: Dr. Alfred Watson DO; Wolf Berry ~ [facility] Work Phone: 1(842) 517-595701-21-[address] Ji [facility] September 22, 2022 9:43am Note Date/Time September 22, 2022 8 :00am [facility] Medical Records Department [address] [place] [address] Progress Note - Hospitalist 09/22/22 0758 MR#: [id number] Acct: [id number] Name: PATRICIA HAWLEY Rep #:[id number] : 1945 77 From: Luiz Ji DO PCP: Wolf Berry Status:ADM IN Location: [facility] [id number] Subjective Subjective Breathing well. No events overnight. [...] 82.0 H, Lymph % (Auto) 10.2 L, [place] % (Auto) 6.1, Eos % (Auto) 0.0, [...] probable early osteomyelitis. Pt was transferred to [facility] at that time. This may be old. Reviewed records from [facility] from April 2020. Pt had 6 weeks of IV abx. Seen by neurosurgery and no plans for surgical intervention. (Pt states she wouldn't want any). No additional work up. Follow up with neursurgery PRN. PLAN: Plan Chronic conditions: * COPD: BDs * debility: unclear baseline performance status. I suspect poor as she is an [facility] resident. PT OT. * HTN: continue furosemide * depression: buspirone, sertraline * chronic pain: methadone on home MAR, but does not show up on OARRS, gabapentin, duloxetine. * HLP: continue statin DC back [facility] Charges/Coding Visit Charges Inpatient E&M: 92017 Subs Hosp L2 09/22/22 0943 <Electronically signed by Luiz Ji DO> Cosigner Signature (if applicable): CC: ~ Signed [facility] Work Phone: 1(302) 782-858401-20-[address] Ji [facility] September 21, 2022 2:13pm Note Date/Time September 21, 2022 7 :50am [facility] System Medical Records Department [address] [place] [address] Progress Note - Hospitalist 09/21/22 0749 MR#: [id number] Acct: [id number] Name: PATRICIA HAWLEY Rep #:[id number] : 1945 77 From: Luiz Ji DO PCP: Wolf Berry Status:ADM IN Location: [place] [address] Subjective Subjective Breathing ok. Constipated for 1 [...] (Auto) 84.3 H, Lymph % (Auto)8.8 L, [place] % (Auto) 5.9, Eos % (Auto) 0.2, [...] 86.0 H, Lymph % (Auto) 8.3 L, [place] % (Auto) 4.3, Eos % (Auto) 0.0, [...] probable early osteomyelitis. Pt was transferred to [facility] at that time. This may be old. Check records from [facility]. PLAN: Plan Chronic conditions: * COPD: BDs * debility: unclear baseline performance status. I suspect poor as she is an [facility] resident. PT OT. * HTN: continue furosemide * depression: buspirone, sertraline * chronic pain: methadone on home OCT, but does not show up on OARRS, gabapentin, duloxetine. * HLP: continue statin VTE prophy: SQ heparin Charges/Coding Visit Charges Inpatient E&M: 16688 Subs Hosp L2 09/21/22 1413 <Electronically signed by Luiz Ji DO> Cosigner Signature (if applicable): CC: ~ Signed [facility] Work Phone: 1(329) 673-800301-19-2023 History and physical note Author Dr. Watson [facility] September 20, 2022 8:10pm Note Date/Time September 20, 2022 8 :10pm [facility] System Medical Records Department [address] [place] [id number] H&P Exam - Hospitalist 09/20/222000 MR#: [id number] Acct: [id number] Name: PATRICIA HAWLEY Rep #:[id number] : 1945 77 From: Alfred Watson DO PCP: Wolf Berry Status:ADM IN Location[place] [facility] [id number] HPI - General General Date of Admission: 09/20/22 Date of Service: 09/20/22 Chief Complaint: Cough, increased shortness of breath HPI Narrative PATRICIA HAWLEY, is a 77 F who presents to the emergency room at [facility] after being sent in by an extended [...] today and was [facility] in [facility] [place] [facility]. Patient denies any fevers or chills. According [facility], patient was started on 50 mg of [...] emergency room, she will be admitted to [place] [id number] for healthcare acquired pneumonia and acute on chronic hypoxic respiratory failure. [facility] Medical History (Reviewed 08/15/22 @ 14:27 by Harpreet Gould SOFT METALS HAND ENGRAVER, SOFT METALS HAND ENGRAVER-C) Abnormal CT of thoracic spine Anxiety Chronic [...] PRN CONSTIPATION 02/13/22 [History Last Taken 09/20/22] pudjdwkg-sba-mbojw acid 0.4 mg-lycopene 300 mcg-lutein 250 mcg [...] in: none additional social history: Lives at [address] ROS Constitutional Constitutional: Reports fatigue; Denies anorexia, change [...] (Auto) 84.3 H, Lymph % (Auto)8.8 L, [place] % (Auto) 5.9, Eos % (Auto) 0.2, [...] healthcare acquired pneumonia-patient will be admitted to [facility], she will be placed on IV [...] on current pain medications #8 abnormality of [id number] to patient's medical record, this abnormality was detected in April 2020, exact etiology is unknown at this time, I do not think the patient needs to be worked up further at this time Total clinical time spent by myself addressing the patient's medical issues, reviewing all her data, and collaborating with patient's care team: 75 minutes Charges/Coding Visit Charges Inpatient E&M: 17642 Init Hosp L3 09/20/222009 <Electronically signed by Alfred Watson DO> Cosigner Signature (if applicable): CC: Dr. Alfred Watson DO; Wolf Berry~ Signed [facility] Work Phone: [phone]) 468-926901-19-[address] Ray [facility] September 20, 2022 4:46pm Note Date/Time September 20, 2022 1 2:09pm [facility] System Medical Records Department [address] [address] Emergency Department Summary 09/20/22 MR#: [id number] Acct: [id number] Name: PATRICIA HAWLEY Rep #:[id number] : 1945 77 From: Vikas aRy DO PCP: Wolf Berry Status:ADM [id number] History of Present Illness Chief Complaint: [...] x-ray done as an outpatient at the [facility] and radiology read that apparently has right lower lobe infiltrate. [facility] Medical History (Reviewed 08/15/22 @ 14:27 by Harpreet Gould SOFT METALS HAND ENGRAVER, SOFT METALS HAND ENGRAVER-C) Abnormal CT of thoracic spine Anxiety Chronic [...] PRN CONSTIPATION 02/13/22 [History Last Taken Unknown] bbumxsba-xhy-rbmzk acid 0.4 mg-lycopene 300 mcg-lutein 250 mcg [...] (Reviewed 08/15/22 @ 14:27 by Harpreet Gould SOFT METALS HAND ENGRAVER, SOFT METALS HAND ENGRAVER-C) Father Hypertension Mother Diabetes Hypertension Brother Diabetes Brother Cancer Sister Hypertension Surgical History (Reviewed 08/15/22 @ 14:27 by Harpreet Gould SOFT METALS HAND ENGRAVER, SOFT METALS HAND ENGRAVER-C) History of hip replacement History of hysterectomy History of incisional hernia repair Hx of repair of rotator cuff Social History (Reviewed 08/15/22 @ 14:27 by Harpreet Gould SOFT METALS HAND ENGRAVER, SOFT METALS HAND ENGRAVER-C) Smoking Status: Never smoker alcohol intake: never substance use type: does not use caffeine: Yes Type: coffee Number of servings: 2 what type of physical activity do you participate in: none additional social history: Lives at [facility] ROS ED Review of Systems [...] 84.3 H Lymph % (Auto) 8.8 L [place] % (Auto) 5.9 Eos % (Auto) 0.2 [...] (Auto) Neut % (Auto) Lymph % (Auto) [place] % (Auto) Eos % (Auto) Baso % [...] Provider] - Disposition Disposition: Acute Care Hospital [facility] What to do if you have Problems For any increased pain, shortness of breath, bleeding, nausea or vomiting, chestpain, or any unexpected problems, contact your Primary Care Provider. Call [facility] ([phone]) or report to the closest Emergency Room. Call 911 if necessary. 09/20/22 1970 <Electronically signed by Remus Ungur DO> Cosigner Signature (if applicable): CC: Wolf Berry ~ Signed [facility] Work Phone: Evaluation note* Diagnosis Onset Date Resolution Status Venous insufficiency of right leg chronic [facility] Work Phone: Evaluation note* Diagnosis Onset Date Resolution Status Venous insufficiency of right leg chronic Fatigue acute Essential (primary) hypertension chronic Non-ischemic cardiomyopathy chronic History of hypertension acut e Hypoxemia acute Pneumonia acute History of COPD chronic [facility] Work Phone: Evaluation note* Diagnosis Onset Date Resolution Status Venous insufficiency of right leg chronic Fatigue acute Essential (primary) hypertension chronic Non-ischemic cardiomyopathy chronic Abnormal spinal diagnostic imaging acute History of hypertension acut e Hypoxemia acute Pneumonia acute History of COPD chronic [facility] Work Phone: Evaluation note* Diagnosis Onset Date Resolution Status Hypoxemia resolved Pneumonia resolved [facility] Work Phone: evaluation noteNo assessment information available [facility] Work Phone: Evaluation note* Diagnosis Onset Date Resolution Status Acute hypoxic respiratory failure acute D-dimer, elevated acute Essential (primary) hypertension acute Multifocal pneumonia acute COPD exacerbation chronic [facility] Work Phone: Hospital Discharge instructions Additional Instructions [...] out in 10 days. Tetanus shot was updated.[facility] Work Phone: Reason for referral (narrative)No reason for referral [facility] Work Phone: Summary Purpose Family History [...] Will No July 11 8:55pm Power of Registered Nurse First Assistant No July 11, 2021 8:55pm Advance Directive Response Recorded Date/ Time Advance Directives No February 09 10:25am Living Will No September 20 4:01pm Power of Registered Nurse First Assistant No September 20, 2022 4:01pm Advance Directive Response Recorded Date/ Time Name of Medical Power of Registered Nurse First Assistant Naina alvarez December 30, 2022 7:18am Advance Directives No February 09 11:25am Living Will Yes December 30, 2022 7:18am Power of Registered Nurse First Assistant Yes December 30 7:18am Advance Directive Response Recorded Date/ Time Advance Directives No February 09 10:25am Living Will No September 21 7:50pm Power of Registered Nurse First Assistant No September 21, 2023 7:50pm Advance Directive Response Recorded Date/ Time Name of Medical Power of Registered Nurse First Assistant Viky Lam September 22, 2023 1:18am Advance Directives No February 09 10:25am Living Will Yes September 22 1:18am Power of Registered Nurse First Assistant Yes September 22, 2023 1:18am Advance Directive Response Recorded Date/ Time Living Will Yes October 26, 025 2:48am Do you have a Healthcare Power of Registered Nurse First Assistant? Yes October 26, 2024 2:48am Name of Medical Power of Registered Nurse First Assistant SREEKANTH NOLAND October 26, 2024 2:48am Advance Directives No February 09 11:25am Advance Directive Response Recorded Date/ Time Living Will Yes October 26 2:48am Do you have a Healthcare Power of Registered Nurse First Assistant? Yes October 26, 2024 2:48am Name of Medical Power of Registered Nurse First Assistant SREEKANTH NOLAND October 26, 2024 2:48am Do you have a Healthcare Power of Registered Nurse First Assistant? Yes February 03, 2025 10:45pm Advance Directives No February 09 11:25am Advance Directive Response Recorded Date/ Time Do you have a Healthcare Power of Registered Nurse First Assistant? Yes February 03, 2025 10:45pm Advance Directives No February 09 11:25am Advance Directive Response Recorded Date/ Time Living Will Yes September 22 2:18am Do you have a Healthcare Power of Registered Nurse First Assistant? Yes September 22, 2023 2:18am Do you have a Healthcare Power of Registered Nurse First Assistant? Yes February 03, 2025 10:45pm Advance Directives No February 09 11:25am Hospital Course Note HNO ID: [id number] Author: Марина Renee Service: Hospital Medicine Author [...] (more content not included)... Note HNO ID: [id number] Author: Piper Qureshi Service: Interventional Radiology Author Type: Physician Type: Brief Op Note Filed: 04/19/2020 10:44 AM Note Text: BRIEF OPERATIVE / PROCEDURE NOTE LOG ID: [id number] SURGERY/PROCEDURE DATE: 04/19/2020 INCISION/PROCEDURE START TIME: INCISION CLOSE/PROCEDURE END TIME: SURGEON(S)/PROCEDURALIST(S) AND CRISIS THERAPIST(S): Surgeon(s) and Role: * Maria Eugenia Qureshi [...] PAGER/CONTACT #: Procedure Findings Note HNO ID: [id number] Author: Piper garcia Katrin Qureshi Service: Interventional Radiology Author Type: Physician Type: Brief Op Note Filed: 04/19/2020 10:44 AM Note Text: BRIEF OPERATIVE / PROCEDURE NOTE LOG ID: [id number] SURGERY/PROCEDURE DATE: 04/19/2020 INCISION/PROCEDURE START TIME: INCISION CLOSE/PROCEDURE END TIME: SURGEON(S)/PROCEDURALIST(S) AND CRISIS THERAPIST(S): Surgeon(s) and Role: * Maria Eugenia Qureshi [...] for Visit Chief Complaint Consult ATHEROSCLEROSIS OF TELIDA ARTERIES Test results Reason for Visit Venous [...] 2024 8:00am FALL, PERIPROSTHETIC HIP FRACTURE Februa ry 2024 11:21pm FALL, PERIPROSTHETIC HIP FRACTURE Februa 2024 4:59pm FALL, PERIPROSTHETIC HIP FRACTURE Februa [...] (chronic) (peripher al) November 26, 2024 8:00am Chief Complaint Admit Date wound October 22, 2024 8:00am FALL, PERIPROSTHETIC HIP FRACTURE Februa ry 2024 11:21pm FALL, PERIPROSTHETIC HIP FRACTURE Februa ry 2024 4:59pm FALL, PERIPROSTHETIC HIP FRACTURE Februa ry 2024 12:43pm wound November 26, 2024 8:0 0am Hiatal Hernia December 30, 2024 10: 54am BLOATING January 14, 2025 10:53 am cp, sob February 03, 2025 10:40 pm Reason for Visit Admit Date Bilateral edema of lower extremity Febru [id number] [...] (chronic) (peripher al) November 26, 2024 8:00am Bloating December 30, 2024 10: 54am Early satiety December 30, 2024 10: 54am Chief Complaint Admit Date Hiatal Hernia December 30, 2024 10: 54am BLOATING January 14, 2025 10:53 am cp, sob February 03, 2025 10:40 pm 3 M FU April 02, 2025 9:4 4am Reason for Visit Admit Date Bloating December 30, 2024 10: 54am Early satiety December 30, 2024 10: 54am Chief Complaint Admit Date BLOATING January 14, 2025 10:53 am cp, sob February 03, 2025 10:40 pm 3 M FU April 02, 2025 9:4 4am 1 Y FU/MOVED FROM [facility] May 04 11:11am Reason for Visit Admit Date Bloating April 02, 2025 9:4 4am Early satiety April 02, 2025 9:4 4am IBS (irritable bowel syndrome) April 9:44am Essential (primary) hypertension Septemb 2024 11:11am Hyperlipidemia May 04, 2025 11:11am Non-ischemic cardiomyopathy May 11:11am Additional Source Comments INFORMATION SOURCE (unrecogn ized section and content) DATE CREATED AUTHOR 08/11/2019 [facility] DATE CREATED AUTHOR AUTHOR'S ORGANIZ ATION 05/31/2020 [facility] DATE CREATED AUTHOR AUTHOR'S ORGANIZ ATION 06/14/2020 [facility] DATE CREATED AUTHOR AUTHOR'S ORGANIZ ATION 06/30/2020 [facility] DATE CREATED AUTHOR AUTHOR'S ORGANIZ ATION 06/03/2022 [facility] DATE CREATED AUTHOR AUTHOR'S ORGANIZ ATION 05/23/2025 [facility] DATE CREATED AUTHOR AUTHOR'S ORGANIZ ATION 06/20/2025 [facility] Goals (unrecognized section and content) Goals may [...] Status: Active Member Role Status Dates Dr. oWlf Berry MD Primary Care Provider Active Start: October 27, 2024 Dr. Pan Roberts DO Emergency Provider Active Start: October 27, 2024 Dr. Kay Padilla MD Admit Provider Active St art: October 27, 2024 Dr. Kay Padilla MD Other Provider Active St art: October 27, 2024 Dr. Jadon Dolan , JOJO Other Provider Active Start: October 27, 2024 Dr. Alfred Watson , Attending Provider Active Start: October 27, 2024 Dr. Alfred Watson DO Other Provider Active S tart: October 27, 2024 Team Status: Inactive Member Role Status Dates Dr. Wolf Berry MD Primary Care Provider Active Start: November 26, 2024 End: November 30, 2024 Dr. Jadon Dolan , JOJO Attending Provider Active Start: November 26, 2024 End: November 30, 2024 Dr. Jan Worley DPM Referring Provider Active Start: November 26, 2024 End: November 30, 2024 Team Status: Active Member Role Status Dates Wolf Berry Primary Care Provider Active Team Status: Inactive Member Role Status Dates Wolf Berry Primary Care Provider, Referring Provider Active Harpreet Gould SOFT METALS HAND ENGRAVER, SOFT METALS HAND ENGRAVER-C Attending Provider Active Team Status: Inactive Member [...] Alfred Watson , DO Admit Provider, Attending Pro vider Active [...] Provider, Other Provide r Active Dr. Luiz Jopperi , DO Attending Provider Active Team Status: [...] Vikas Ray DO Emergency Provider Active Dr. Alrfed Watson DO Admit Provider, Other Provide r [...] Berry MD Primary Care Provider Active Start: December 30, 2024 End: December 30, 2024 Dr. Wolf Berry MD Referring Provider Active Start: December 30, 2024 End: December 30, 2024 BON Cueva Attending Provider Active Start: December 30, 2024 End: December 30, 2024 Team Status: Inactive Member Role Status Dates Dr. Wolf Berry MD Primary Care Provider Active Start: January 14, 2025 End: January 14, 2025 BON Cueva Attending Provider Active Start: January 14, 2025 End: January 14, 2025 BON Cueva Referring Provider Active Start: January 14, 2025 End: January 14, 2025 Team Status: Inactive Member Role Status Dates Dr. Wolf Berry MD Primary Care Provider Active Start: February 03, 2025 End: February 04, 2025 Dr. Cornelius Rhoades DO Emergency Provider Active Start: February 03, 2025 End: February 04, 2025 Team Status: Active Member Role/Relationship Status Dates Dr. Wolf Berry MD Primary Care Provider Active Team Status: Inactive Member Role/Relationship Status Dates Dr. Wolf Berry MD Primary Care Provider Active Start: December 30, 2024 End: December 30, 2024 Dr. Wolf Berry MD Referring Provider Active Start: December 30, 2024 End: December 30, 2024 BON Cueva Attending Provider Active Start: December 30, 2024 End: December 30, 2024 Team Status: Inactive Member Role/Relationship Status Dates Dr. Wolf Berry MD Primary Care Provider Active Start: January 14, 2025 End: January 14, 2025 BON Cueva Attending Provider Active Start: January 14, 2025 End: January 14, 2025 BON Cueva Referring Provider Active Start: January 14, 2025 End: January 14, 2025 Team Status: Inactive Member Role/Relationship Status Dates Dr. Wolf Berry MD Primary Care Provider Active Start: February 03, 2025 End: February 04, 2025 Dr. Cornelius Rhoades DO Attending Provider Active Start: February 03, 2025 End: February 04, 2025 Dr. Cornelius Rhoades DO Emergency Provider Active Start: February 03, 2025 End: February 04, 2025 Team Status: Inactive Member Role/Relationship Status Dates Dr. Wolf Berry MD Primary Care Provider Active Start: April 02, 2025 End: April 02, 2025 Dr. Wolf Berry MD Referring Provider Active Start: April 02, 2025 End: April 02, 2025 BON Cueva Attending Provider Active Start: April 02, 2025 End: April 02, 2025 Team Status: Inactive Member Role/Relationship Status Dates Dr. Wolf Berry MD Primary Care Provider Active Start: January 14, 2025 End: January 14, 2025 BON Cueva Attending Provider Active Start: January 14, 2025 End: January 14, 2025 BON Cueva Referring Provider Active Start: January 14, 2025 End: January 14, 2025 Team Status: Inactive Member Role/Relationship Status Dates Dr. Wolf Berry MD Primary Care Provider Active Start: February 03, 2025 End: February 04, 2025 Dr. Cornelius Rhoaeds DO Attending Provider Active Start: February 03, 2025 End: February 04, 2025 Dr. Cornelius Rhoades DO Emergency Provider Active Start: February 03, 2025 End: February 04, 2025 Team Status: Inactive Member Role/Relationship Status Dates Dr. Wolf Berry MD Primary Care Provider Active Start: April 02, 2025 End: April 02, 2025 Dr. Wolf Berry MD Referring Provider Active Start: April 02, 2025 End: April 02, 2025 BON Cueva Attending Provider Active Start: April 02, 2025 End: April 02, 2025 Team Status: Inactive Member Role/Relationship Status Dates Dr. Wolf Berry MD Primary Care Provider Active Start: May 04, 2025 End: May 04, 2025 Dr. Wolf Berry MD Referring Provider Active Start: May 04, 2025 End: May 04, 2025 Neisha Hernandez NP, NP-C Attending Provider Active Start: May 04, 2025 End: May 04, 2025 FOR RECORDS PERTAINING TO PATIENTS WHO ARE [...] BE BASED ON THE PRIMARY CLINICAL RECORDS. [employer] [facility]. provides no warranty or guarantee of the accuracy or completeness of information in this document.
[2025-08-14 04:34] LABS: Pro- Brain NATRIURETIC PEPTIDE 1723 pg/mL (<=1800); Troponin T High Sensitivity 21 ng/L (<=14)
[2025-08-14 04:35] LABS: AST(SGOT) 18 U/L (<=31); Alanine Aminotransfer ALT/SGPT 9 U/L (<=34); Albumin, Serum 3.4 g/dL (3.4-4.8); Alkaline Phosphatase 95 U/L (35-104); Anion Gap 14 (5-15); BUN 40 mg/dL (4-19); BUN/Creat Ratio 25.2 RATIO (10-20); Calcium,Total 9.6 mg/dL (7.6-11.0); Carbon Dioxide 24.5 mmol/L (21.0-32.0); Chloride 100 mmol/L (98-108); Estimated Creatinine Clearance 30.69 ml/min (50-250); Globulin 3.6 g/dL (2.2-4.2); Glucose 109 mg/dL (70-99); Potassium 3.9 mmol/L (3.3-5.1)
--- NOTE | 2025-08-14 04:48 | ED.VIS.DYS ---
HPI History of Present Illness Chief Complaint: Shortness of Breath Narrative Narrative: Patient was seen and examined after presenting to ED for shortness of breath she is concerned she has pneumonia as she was being treated with cefdinir for UTI she has had several days worth of that antibiotic she was told yesterday that she had pneumonia on the chest x-ray she was supposed to start Levaquin later today. [facility] Medical History Multiple drug resistant organism (MDRO) culture positive Periprosthetic fracture around internal prosthetic hip joint Bilateral edema of lower extremity Venous insufficiency (chronic) (peripheral) Neuropathy Non-pressure chronic ulcer of other part of right foot with fat layer exposed Hydronephrosis Hyperlipidemia Acute hypoxic respiratory failure Vertebral osteomyelitis Abnormal spinal diagnostic imaging History of COPD History of hypertension Fatigue Non-ischemic cardiomyopathy Abnormal CT of thoracic spine Soft tissue mass Vitamin D deficiency Depression Anxiety Chronic back pain Chronic obstructive pulmonary disease Venous insufficiency of right leg PVD (peripheral vascular disease) DDD (degenerative disc disease) COPD (chronic obstructive pulmonary disease) Essential (primary) hypertension MRSA (methicillin resistant staph aureus) culture positive Hemorrhoids Venous ulcer of left lower extremity without varicose veins 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 Foot drop, right Malnutrition Home Medications ?Medication ?Instructions ?Recorded ?Last Taken ?Type pravastatin 40 mg tablet 40 mg PO QHS CHOLESTEROL 01/17/18 03/13/24 History methenamine hippurate 1 gram tablet 1 g PO BID URINARY 04/12/20 03/14/24 History metoprolol succinate 50 mg 50 mg PO DAILY HEART 06/07/20 03/14/24 History tablet,extended release 24 hr fluticasone furoate 100 1 inh inhalation DAILY breathing 08/03/21 09/20/22 History mcg-vilanterol 25 mcg/dose inhalation powder (Breo Ellipta) cholecalciferol (vitamin D3) 100 100 mcg PO DAILY SUPPLEMENT 02/13/22 03/14/24 History mcg (4,000 unit) tablet ondansetron HCl 4 mg tablet 4 mg PO Q8H PRN Nausea 02/13/22 Unknown History guaifenesin 100 mg/5 mL oral 200 mg PO Q6H PRN COUGH/SORE THROAT 09/20/22 09/20/22 History liquid (Siltussin SA) melatonin 5 mg tablet 5 mg PO QHS SLEEP 09/20/22 03/13/24 History hydrocortisone 1 % topical cream 1 applic topical TID PRN 09/21/22 Unknown History (Preparation H Hydrocortisone) Hemorrhoids buspirone 5 mg tablet 5 mg PO TID mental health 03/14/23 03/14/24 History menthol 4 % topical gel (Biofreeze 1 applic topical BID PRN pain 09/21/23 Unknown History (menthol)) polyethylene glycol 3350 17 17 g PO DAILY PRN constipation 09/21/23 Unknown History gram/dose oral powder (ClearLax) bisacodyl 10 mg rectal suppository 10 mg HI DAILY PRN constipation 03/14/24 Unknown History estradiol 0.01% (0.1 mg/gram) 1 appful vaginal .COMPLEX 03/14/24 Unknown History vaginal cream magnesium hydroxide 400 mg/5 mL 30 ml PO DAILY PRN constipation 03/14/24 Unknown History oral suspension (Dulcolax (magnesium hydroxide)) albuterol sulfate 90 mcg/actuation 2 inh inhalation Q4H 10/25/24 Unknown History breath activated powder inhaler acetaminophen 325 mg tablet 650 mg (2 x 325 mg) PO Q4H PRN PRN 10/27/24 Unknown Rx Fever, pain 1-06/11 #0 tabs albuterol sulfate 2.5 mg/3 mL 2.5 mg (3 mL) inhalation Q2H PRN 10/27/24 Unknown Rx (0.083 %) solution for nebulization PRN Dyspnea, wheezing #0 mL gabapentin 300 mg capsule 300 mg PO TID #0 caps 10/27/24 Unknown Rx menthol 0.44 %-zinc oxide 20.6 % 1 applic topical 4X/DAY #0 grams 10/27/24 Unknown Rx topical ointment (Calmoseptine) pantoprazole 40 mg tablet,delayed 40 mg PO QDAY #90 tabs 12/30/24 Unknown Rx release pomegranate fruit 2 cap PO DAILY 12/30/24 Unknown History xt-bioflavonoids, citrus 250 mg-250 mg capsule Lactobacillus rhamnosus GG 10 1 cap PO DAILY 02/03/25 Unknown History billion cell capsule (Culturelle) mineral oil (Fleet Mineral Oil 118 ml HI DAILY PRN constipation 02/03/25 Unknown History enema) oxycodone-acetaminophen 5 mg-325 1 tab PO Q8H PRN pain 02/03/25 Unknown History mg tablet linaclotide 145 mcg capsule 145 mcg PO QAM #30 caps 04/02/25 Unknown Rx (Linzess) calcium carbonate (Tums) 200 mg PO .prn PRN dyspepsia 05/04/25 Unknown History cranberry fruit 450 mg tablet 450 mg PO QDAY 05/04/25 Unknown History d-mannose 500 mg capsule (AZO 500 mg PO DAILY 05/04/25 Unknown History D-Mannose) furosemide 20 mg tablet (Lasix) 40 mg PO QAM 05/04/25 Unknown History potassium PO DAILY 05/04/25 Unknown History sertraline 100 mg tablet 150 mg PO DAILY DEPRESSION 05/04/25 Unknown History cefdinir 300 mg capsule 300 mg PO BID 08/14/25 Unknown History Allergy/AdvReac Type Severity Reaction Status Date / Time morphine Allergy Unknown unknown Verified 08/14/25 03:14 amoxicillin (From Augmentin) AdvReac Nausea/Vom/ Verified 08/14/25 03:14 Diarrhea clavulanic acid (From AdvReac Nausea/Vom/ Verified 08/14/25 03:14 Augmentin) Diarrhea nitrofurantoin AdvReac Vomiting Verified 08/14/25 03:14 macrocrystalline (From Macrodantin) sulfamethoxazole (From AdvReac Nausea/Vom/ Verified 08/14/25 03:14 Bactrim) Diarrhea trimethoprim (From Bactrim) AdvReac Nausea/Vom/ Verified 08/14/25 03:14 Diarrhea Family History Father Hypertension Mother Diabetes Hypertension Brother Diabetes Brother Cancer Sister Hypertension Surgical History History of incisional hernia repair Hx of repair of rotator cuff History of hip replacement History of hysterectomy Social History household members: caregiver housing: group home Smoking Status: Never smoker alcohol intake: never substance use type: does not use caffeine: Yes Type: coffee Number of servings: 2 what type of physical activity do you participate in: none additional social history: Lives at [facility] ROS ROS ED ROS Narrative Pertinent Positives: Shortness of breath recent diagnosis for pneumonia on antibiotics for UTI Pertinent Negatives: Fevers chills chest pain pressure vomiting body aches The remainder of review of systems negative unless otherwise stated in the HPI above. Systems reviewed including constitutional, psychiatric, cardiovascular, respiratory, integument, HENT, gastrointestinal. EXAM Physical Exam Narrative Exam Narrative: Afebrile hemodynamically stable she is oxygenating well on her baseline 2 L nasal cannula she does have coarse lung sounds bilaterally heart sounds are normal intestine with colon musculoskeletal extremities. Does have bilateral lower extremity edema no calf tenderness. Abdomen is soft nontender nondistended Const Vital Signs: 08/14/25 03:11 08/14/25 03:35 08/14/25 03:36 Temperature 98.4 F Temperature Source Oral Pulse Rate 74 71 Respiratory Rate 19 H 17 Blood Pressure 117/95 H Blood Pressure Mean 102 Pulse Ox 94 97 Oxygen Delivery Method Nasal Cannula Nasal Cannula Oxygen Flow Rate (L/min) 2 08/14/25 03:45 08/14/25 04:00 08/14/25 04:15 Temperature Temperature Source Pulse Rate 70 67 65 Respiratory Rate 17 14 Blood Pressure 129/61 H 133/63 H 108/64 Blood Pressure Mean 70 82 78 Pulse Ox 99 100 Oxygen Delivery Method Oxygen Flow Rate (L/min) 08/14/25 04:30 08/14/25 04:45 08/14/25 05:00 Temperature Temperature Source Pulse Rate 78 76 79 Respiratory Rate 12 12 16 Blood Pressure 107/56 L 109/59 L 124/62 H Blood Pressure Mean 73 73 80 Pulse Ox 100 98 Oxygen Delivery Method Oxygen Flow Rate (L/min) 08/14/25 05:15 Temperature Temperature Source Pulse Rate 62 Respiratory Rate 15 Blood Pressure 120/64 Blood Pressure Mean 83 Pulse Ox Oxygen Delivery Method Oxygen Flow Rate (L/min) MDM MDM MDM Narrative Medical decision making narrative: Nursing notes, triage notes, available previous documentation, and vital signs were reviewed. Any discrepancies noted were addressed. Differential Diagnoses: Pneumonia, viral process lower suspicion for PE Interventions: Antibiotics Given: Levofloxacin Fluids Given: 1 L normal saline Labs Reviewed: No leukocytosis or leukopenia hemoglobin is 10.3 platelets of 330. She does have decreased GFR with her creatinine also increased to 1.5 no transaminitis proBNP was 1700 troponin slightly elevated at 21 Imaging Reviewed: Personally reviewed and interpreted by me: Chest x-ray is rotated she does have some interstitial thickening and prominence which could be infiltrative EKG: Normal sinus rhythm rate of 70. I do not see evidence of ACS. No evidence of prolonged QT syndrome. No evidence of AV Block. No short HI intervals, wide QRS, or Delta waves indicative of WPW. No evidence of dagger-like q waves or LVH indicative of Hypertrophic Cardiomyopathy. No evidence of Brugada Syndrome. EKG interpretation is noted and agreed to in the EMR. The interpretation of this patient's EKG contributed directly to the care and management of this patient. Previous Documentation Reviewed: None available or applicable at this time. ED Course: Patient presenting with symptoms listed above. Both of them infiltrative changes on her chest x-ray she is already on cefdinir but her facility is planning to start her on Levaquin later this morning patient is on her baseline nasal cannula she is hemodynamically stable and afebrile. Troponin slightly elevated but could just be elevated secondary to her overall condition we will get a delta troponin. 0550: Delta troponin is flat at 20. We can go ahead and give her a dose of the Levaquin that she was going to start today we can send her back to her facility as she is on her baseline supplemental oxygen and is otherwise hemodynamically stable patient is also on board with this plan. Return precautions follow-up recommendations provided patient will be stable for discharge This note was made utilizing voice recognition software. All attempts were made to correct spelling or other errors prior to note completion. However, due to the fast-paced nature of emergency medicine, some errors may still be present. Lab Data Labs: Laboratory Results - last 24 hr 08/14/25 08/14/25 03:20 05:20 WBC 9.1 RBC 3.54 L Hgb 10.3 L Hct 34.4 L MCV 97.2 MCH 29.1 MCHC 29.9 L RDW Std Deviation 49.1 H RDW Coeff of Zach 13.6 Plt Count 330 MPV 9.8 Immature Gran % (Auto) 1.200 H Neut % (Auto) 62.8 Lymph % (Auto) 21.8 [place] % (Auto) 8.4 Eos % (Auto) 5.2 H Baso % (Auto) 0.6 Absolute Neuts (auto) 5.7 Absolute Lymphs (auto) 1.98 Nucleated RBC % 0 Sodium 138 Potassium 3.9 Chloride 100 Carbon Dioxide 24.5 Anion Gap 14 BUN 40 H Creatinine 1.57 H Estim Creat Clear Calc 30.69 L Est GFR (MDRD) Non-Af 33 L BUN/Creatinine Ratio 25.2 H Glucose 109 H Lactic Acid < 1.0 Calcium 9.6 Total Bilirubin 0.29 AST 18 ALT 9 Alkaline Phosphatase 95 Troponin T High Sens 21 H Troponin T Hi Sens 2 Hr 20 H NT pro BNP II 1723 Total Protein 7.0 Albumin 3.4 Globulin 3.6 Albumin/Globulin Ratio 1.0 Radiography Diagnostic Testing: Clinical Impression(s) from Imaging Studies Chest X-Ray 08/14/25 03:35 IMPRESSION: Unremarkable median sternotomy wires. Mild bilateral basilar atelectatic pulmonary changes/infiltrates, less prominent than the prior exam. Reading Location: [place] [id number] Discharge Plan Triage Chief Complaint: Shortness of Breath ED Provider: Rimma Gilliam Dx/Rx/DC Orders Clinical Impression: Dyspnea, Pneumonia Instructions: ED Pneumonia (Adult) Prescriptions: No Action pravastatin 40 mg tablet 40 mg PO QHS metoprolol succinate 50 mg tablet extended release 24 hr 50 mg PO DAILY fluticasone furoate-vilanterol [Breo Ellipta] 100-25 mcg/dose blister with device 1 inh inhalation DAILY buspirone 5 mg tablet 5 mg PO TID cholecalciferol (vitamin D3) 100 mcg (4,000 unit) tablet 100 mcg PO DAILY furosemide [Lasix] 20 mg tablet 40 mg PO QAM cranberry fruit 450 mg tablet 450 mg PO QDAY Rx Instructions: administer with a meal AZO D-Mannose 500 mg capsule 500 mg PO DAILY potassium 40 mg tablet PO DAILY calcium carbonate [Tums] 200 mg calcium (500 mg) tablet,chewable 200 mg PO .prn PRN (Reason: dyspepsia) pomegranate xt-bioflav,citrus 250-250 mg capsule 2 cap PO DAILY pantoprazole 40 mg tablet,delayed release (DR/EC) 40 mg PO QDAY Qty: 90 1RF Linzess 145 mcg capsule 145 mcg PO QAM Qty: 30 3RF methenamine hippurate 1 GM tablet 1 g PO BID Rx Instructions: this can be used ongoing for prevention of uti. ondansetron HCl 4 mg tablet 4 mg PO Q8H PRN (Reason: Nausea) guaifenesin [Siltussin SA] 100 mg/5 mL Liquid 200 mg PO Q6H PRN (Reason: COUGH/SORE THROAT) melatonin 5 mg Tablet 5 mg PO QHS hydrocortisone [Preparation H Hydrocortisone] 1 % Cream 1 applic TOPICAL TID PRN (Reason: Hemorrhoids) sertraline 100 mg tablet 150 mg PO DAILY Biofreeze (menthol) 4 % gel 1 applic topical BID PRN (Reason: pain) Rx Instructions: apply to shoulder and lower back polyethylene glycol 3350 [ClearLax] 17 gram/dose powder 17 g PO DAILY PRN (Reason: constipation) bisacodyl 10 mg suppository 10 mg HI DAILY PRN (Reason: constipation) estradiol 0.01 % (0.1 mg/gram) cream 1 appful vaginal .COMPLEX Patient Comments: PATIENT INSTRUCTIONS STATE TO APPLY TO GROIN TOPICALLY FOR UTI Rx Instructions: 1 appful vaginally; 1 appful vaginally EVERY MON,WED,FRI; magnesium hydroxide [Dulcolax (magnesium hydroxide)] 400 mg/5 mL suspension 30 ml PO DAILY PRN (Reason: constipation) cefdinir 300 mg capsule 300 mg PO BID albuterol sulfate 90 mcg/actuation aerosol powdr breath activated 2 inh inhalation Q4H acetaminophen 325 mg Tablet 650 mg PO Q4H PRN PRN (Reason: Fever, pain 1-06/11) Qty: 0 0RF albuterol sulfate 2.5 mg /3 mL (0.083 %) Solution For Nebulization 2.5 mg inhalation Q2H PRN PRN (Reason: Dyspnea, wheezing) Qty: 0 0RF gabapentin 300 mg Capsule 300 mg PO TID Qty: 0 0RF menthol-zinc oxide [Calmoseptine] 0.44-20.6 % Ointment 1 applic topical 4X/DAY Qty: 0 0RF Protocol: *Topical Application Instructions APPLICATION INSTRUCTIONS: apply to affected region Culturelle 10 billion cell capsule 1 cap PO DAILY mineral oil [Fleet Mineral Oil] Enema 118 ml HI DAILY PRN (Reason: constipation) Rx Instructions: discard any unused portion oxycodone-acetaminophen 5-325 mg tablet 1 tab PO Q8H PRN (Reason: pain) Primary Care Provider: Wolf Berry Referrals: Wolf Berry MD [Primary Care Provider, [facility]] Activity Restrictions/Additional Instructions: You were given a dose of Levaquin otherwise known as levofloxacin here via IV in the ER today you can start your Levaquin tomorrow. Follow-up with your primary care doctor if getting worse do not hesitate to return Print Language: Nigerien Disposition Disposition: Home, Self Care
[2025-08-14 05:44] LABS: Troponin T High Sens 2 HR 20 ng/L (<=14)
[2025-08-14] MEDS: levoFLOXacin IV 500 MG/100 ML BAG 100 MG IV (06:04)
--- NOTE | 2025-08-14 06:14 | ED.RN ---
report called to Jos[facility]
== END 2025-08-14 07:16 | disposition skilled nursing facility (03) ==
PROVIDERS: Emergency Provider Specialist/Technologist Athletic Trainer; PCP Family Medicine; Visit Provider Specialist/Technologist Athletic Trainer
DX: J18.9 Pneumonia, unspecified organism (principal); J44.0 Chronic obstructive pulmonary disease with (acute) lower respiratory infection; I10 Essential (primary) hypertension; Z79.51 Long term (current) use of inhaled steroids; Z79.899 Other long term (current) drug therapy
CPT/HCPCS: 71045; 80053; 83605; 83880; 84484; 85025; 87040; 87631; 93005; 96361; 96365; 99284; A4216